=== PATIENT | male | born 1940 | race Two or more races ===

== ENCOUNTER 2023-01-28 08:25 | Emergency (ER) | payer MEDICARE, SELFPAY ==
[2023-01-28 08:32] VITALS: BP 156/86; PULSE 90; RESP 20; TEMP 36.8; O2SAT 98; BMI 28.9
--- NOTE | 2023-01-28 08:39 | ED_ITS ---
HPI - Extremity Problem General Chief complaint: Extremity Problem, Nontraumatic Stated complaint: LOWER EXTREMITY PAIN Time Seen by Provider: 01/28/23 08:29 Source: patient Mode of arrival: Wheelchair History of Present Illness HPI Narrative: 82-year-old male presents for pain to the plantar aspect of each foot. He's had it for the last day and there is no unusual activity or injury or new shoes. It's a burning sensation and it's mostly distal and lateral. No discomfort on the dorsum of his feet. He is on a medication for neuropathy but he doesn't name of it. No fever or cough or leg swelling. The pain is moderate and continuous. Related Data Home Medications Medication Instructions Recorded Confirmed amitriptyline 25 mg tablet 25 mg PO DAILY 01/28/23 01/28/23 atorvastatin 20 mg tablet 20 mg PO DAILY 01/28/23 01/28/23 bumetanide 2 mg tablet 2 mg PO Q12H 01/28/23 01/28/23 carvedilol 25 mg tablet 25 mg PO Q12H 01/28/23 01/28/23 ferrous sulfate 325 mg (65 mg 325 mg PO DAILY 01/28/23 01/28/23 iron) tablet (FeroSul) hydralazine 50 mg tablet 50 mg PO Q12H 01/28/23 01/28/23 insulin glargine 100 unit/mL (3 unit subcut 01/28/23 mL) subcutaneous pen (Lantus Solostar U-100 Insulin) irbesartan 150 mg tablet mg 01/28/23 isosorbide mononitrate 60 mg 30 mg PO DAILY 01/28/23 01/28/23 tablet,extended release 24 hr levothyroxine 50 mcg tablet 50 mcg PO DAILY 01/28/23 01/28/23 Previous Rx's Medication Instructions Recorded hydrocodone 5 mg-acetaminophen 325 1 tab PO Q8H PRN pain #20 tabs 01/28/23 mg tablet Allergies Allergy/AdvReac Type Severity Reaction Status Date / Time No Known Drug Allergies Allergy Verified 01/28/23 08:40 Review of Systems ROS Narrative A ten point review of systems is negative except as noted above. Exam Narrative Exam Narrative: Nurses note and vital signs reviewed and patient is not hypoxic. General: The patient appears well and in no apparent distress. Patient is resting comfortably on cart. Skin: Warm, dry, no pallor noted. There is no rash noted. Head: Normocephalic, atraumatic Eye: Normal conjunctiva, no drainage Ears, Nose, Mouth, and Throat: oral mucosa is moist. Nares patent. Cardiovascular: not tachycardic Respiratory: Patient is in no distress, no accessory muscle use, lungs are clear to auscultation, no wheezing, rales or rhonchi Back: non-tender GI: nontender Musculoskeletal: no swelling in his calves or ankles or feet. There is no bruising or rash. No swelling to the soles of his feet. There is no erythema bruise or rash. Neurological: A&O, normal speech Psychiatric: Cooperative Constitutional Vital Signs - 24 hr 01/28/23 08:32 Temperature 98.3 F Pulse Rate [Monitor] 90 Respiratory Rate 20 Blood Pressure [Right Arm] 156/86 H Pulse Oximetry 98 Oxygen Delivery Method Room Air Course Vital Signs Vital signs: Vital Signs Temperature 98.3 F 01/28/23 08:32 Pulse Rate 90 01/28/23 08:32 Respiratory Rate 20 01/28/23 08:32 Blood Pressure 156/86 H 01/28/23 08:32 Pulse Oximetry 98 01/28/23 08:32 Oxygen Delivery Method Room Air 01/28/23 08:32 Temperature 98.3 F 01/28/23 08:32 Pulse Rate 90 01/28/23 08:32 Respiratory Rate 20 01/28/23 08:32 Blood Pressure 156/86 H 01/28/23 08:32 Pulse Oximetry 98 01/28/23 08:32 Oxygen Delivery Method Room Air 01/28/23 08:32 MDM - Extremity (Nontraumatic) MDM Narrative Medical decision making narrative: creatinine is somewhat increased from the most recent result that I have available to me which is from two years ago. This was discussed with the patient and his son and he'll follow-up with his PCP in that regard. My clinical impression is that he has peripheral neuropathy and was prescribed [place]. Treatment diagnosis and follow-up were discussed with the patient and his son. Differential Diagnosis Differential diagnosis: Likely gout, cellulitis and lower extremity edema Lab Data Attestation: I reviewed the patient's lab results. Labs: Lab Results 01/28/23 Range/Units 08:50 WBC 10.7 (4.0-11.0) 10^3/uL RBC 4.31 L (4.70-6.10) 10^6/uL Hgb 12.9 L (14.0-18.0) g/dL Hct 41.0 L (42.0-54.0) % MCV 95.1 H (80.0-94.0) fL MCH 29.9 (25.9-34.0) pg MCHC 31.5 (29.9-35.2) g/dL RDW 15.0 (11.0-15.0) % Plt Count 238 (150-450) 10^3/uL MPV 10.0 (9.5-13.5) fL Neut % (Auto) 72.9 (43.0-75.0) % Lymph % (Auto) 13.8 L (20.5-60.0) % [place] % (Auto) 10.1 (1.7-12.0) % Eos % (Auto) 2.5 (0.9-7.0) % Baso % (Auto) 0.4 (0.2-2.0) % Neut # (Auto) 7.8 H (1.4-6.5) 10^3/uL Lymph # (Auto) 1.5 (1.2-3.8) 10^3/uL [place] # (Auto) 1.1 H (0.3-0.8) 10^3/uL Eos # (Auto) 0.3 (0.0-0.7) 10^3/uL Baso # (Auto) 0.0 (0.0-0.1) 10^3/uL Abs Immat Gran (auto) 0.03 (0.00-0.03) 10^3/uL Imm/Tot Granulo (auto) 0.3 (0.0-0.5) % Sodium 141 (136-145) mmol/L Potassium 4.9 (3.5-5.1) mmol/L Chloride 102 (98-107) mmol/L Carbon Dioxide 30.8 (21.0-32.0) mmol/L Anion Gap 13.1 BUN 41.0 H (7.0-18.0) mg/dL Creatinine 2.85 H (0.70-1.30) mg/dL Est GFR ( Amer) 26 L (>=60) Est GFR (Non-Af Amer) 21 L (>=60) BUN/Creatinine Ratio 14.4 Glucose 141 H (74-106) mg/dL Calcium 9.4 (8.5-10.1) mg/dL Discharge Plan Discharge Chief Complaint: Extremity Problem, Nontraumatic Clinical Impression: Peripheral neuropathy Patient Disposition: Home, Self-Care Time of Disposition Decision: 10:17 Condition: Good Mode of Transportation: Private Vehicle Prescriptions / Home Meds: New hydrocodone-acetaminophen 5-325 mg tablet 1 tab PO Q8H PRN (Reason: pain) Qty: 20 0RF No Action amitriptyline 25 mg tablet 25 mg PO DAILY atorvastatin 20 mg tablet 20 mg PO DAILY bumetanide 2 mg tablet 2 mg PO Q12H carvedilol 25 mg tablet 25 mg PO Q12H ferrous sulfate [FeroSul] 325 mg (65 mg iron) tablet 325 mg PO DAILY hydralazine 50 mg tablet 50 mg PO Q12H insulin glargine [Lantus Solostar U-100 Insulin] 100 unit/mL (3 mL) insulin pen SUBCUT isosorbide mononitrate 60 mg tablet extended release 24 hr 30 mg PO DAILY irbesartan 150 mg tablet levothyroxine 50 mcg tablet 50 mcg PO DAILY Instructions: Peripheral Neuropathy (ED) Stand Alone Forms: Portal Instructions Referrals: Yao Lopez MD [Primary Care Provider] - 1 week
[2023-01-28] MEDS: HYDROCODONE/ACETAMINOPHEN 5-325 MG TABLET 1 TAB PO (08:54)
[2023-01-28 08:59] LABS: Basophils Percent Auto 0.4 % (0.2-2.0); Eosinophils Absolute Auto 0.3 10^3/uL (0.0-0.7); Eosinophils Percent Auto 2.5 % (0.9-7.0); Hemoglobin 12.9 g/dL (14.0-18.0); Immature Granulocytes Abs Auto 0.03 10^3/uL (0.00-0.03); Immature Granulocytes Pct Auto 0.3 % (0.0-0.5); Lymphocytes Absolute Auto 1.5 10^3/uL (1.2-3.8); Lymphocytes Percent Auto 13.8 % (20.5-60.0); Mean Corpuscular HGB Conc 31.5 g/dL (29.9-35.2); Mean Corpuscular Hemoglobin 29.9 pg (25.9-34.0); Mean Corpuscular Volume 95.1 fL (80.0-94.0); Monocytes Absolute Auto 1.1 10^3/uL (0.3-0.8); Monocytes Percent Auto 10.1 % (1.7-12.0); Neutrophils Absolute Auto 7.8 10^3/uL (1.4-6.5); Neutrophils Percent Auto 72.9 % (43.0-75.0); Platelet Count 238 10^3/uL (150-450); Red Blood Count 4.31 10^6/uL (4.70-6.10); White Blood Count 10.7 10^3/uL (4.0-11.0)
[2023-01-28 09:53] LABS: Anion Gap 13.1; BUN Creatinine Ratio 14.4; Calcium 9.4 mg/dL (8.5-10.1); Carbon Dioxide 30.8 mmol/L (21.0-32.0); Chloride 102 mmol/L (98-107); Estimated GFR (African America 26 (>=60); Estimated GFR (Non-African Ame 21 (>=60); Glucose 141 mg/dL (74-106); Potassium 4.9 mmol/L (3.5-5.1); Sodium 141 mmol/L (136-145)
== END 2023-01-28 10:39 | disposition home or self-care (01) ==
PROVIDERS: Emergency Provider Emergency Medicine; PCP Family Medicine
DX: G62.9 Polyneuropathy, unspecified (principal); Z79.4 Long term (current) use of insulin; Z79.899 Other long term (current) drug therapy; Z79.890 Hormone replacement therapy
CPT/HCPCS: 36415; 80048; 85025; 99283

== ENCOUNTER 2023-01-30 15:30 | Inpatient (IN) | payer MEDICARE, SELFPAY ==
[2023-01-30] VITALS (23 sets, daily range): BP systolic 104–153; BP diastolic 56–101; PULSE 74–111; RESP 13–31; TEMP 36.6–39.3; O2SAT 89–97; BMI 26.5; BMI 30.4
--- NOTE | 2023-01-30 15:46 | XR_ITS ---
The [address] [address] Patient Name: JAJA FRANKLIN MRN: [id number] date: 1940 Sex: M Assigned Patient Location: ER Current Patient Location: ER Accession/Order Number: [id number] Exam Date: 01/30/2023 16:28 Report Date: 01/30/2023 16:47 At the request of: BOBBI LEBLANC Procedure: XR chest 1V EXAM: XR chest 1V at 1624 hours HISTORY: fatigue COMPARISON: 10/25/2022 TECHNIQUE: AP upright portable chest x-ray FINDINGS: The heart is not grossly enlarged. A small amount of atelectasis is seen at the lung bases. No acute infiltrate, effusion or pneumothorax is clearly identified. The patient is rotated to the right. Multiple sternal wire sutures are present. IMPRESSION: No apparent acute infiltrate or evidence of overt cardiac decompensation. A small amount of atelectasis or scarring is seen at the lung bases. Electronically authenticated by: TAVO SMITH Date: 01/30/2023 16:47
--- NOTE | 2023-01-30 15:46 | ECG_ITS ---
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
--- NOTE | 2023-01-30 16:11 | ED_ITS ---
HPI - Weakness General Chief complaint: Weakness Stated complaint: Weakness Time Seen by Provider: 01/30/23 15:45 Source: patient and family Mode of arrival: Wheelchair Limitations: no limitations History of Present Illness HPI Narrative: this patient's here with his son after being evaluated his primary care doctor's office. He is essentially unable to get up and walk. Normally he lives independently. However previously, he underwent a similar situation and was put in a rehab facility for a couple weeks before he went back home. He does live independently and he lost his six months ago. He was here over the weekend for similar complaints and just has not gotten better. He has number of comorbidities and is on a number of medications as noted in the nursing record. To his knowledge he is not running a fever at home. He's not had any chest pain or shortness of breath. Denies vomiting or diarrhea. He has no urinary symptoms but he does have a history of prostate problems. He said the primary problem today is weakness in his feet he says he just can't stand up and walk. Normally he would use a walker. It's been suggested that he might have diabetic neuropathy but he is not sure about that. There also was some concern that he might have some gout. Related Data Home Medications Medication Instructions Recorded Confirmed amitriptyline 25 mg tablet 25 mg PO .QHS 01/28/23 01/30/23 atorvastatin 20 mg tablet 20 mg PO DAILY 01/28/23 01/30/23 bumetanide 2 mg tablet 2 mg PO DAILY 01/28/23 01/30/23 carvedilol 25 mg tablet 25 mg PO Q12H 01/28/23 01/30/23 ferrous sulfate 325 mg (65 mg 325 mg PO DAILY 01/28/23 01/30/23 iron) tablet (FeroSul) hydralazine 50 mg tablet 50 mg PO Q12H 01/28/23 01/30/23 insulin glargine 100 unit/mL (3 50 unit subcut QA 01/28/23 01/30/23 mL) subcutaneous pen (Lantus Solostar U-100 Insulin) isosorbide mononitrate 60 mg 30 mg PO BID 01/28/23 01/30/23 tablet,extended release 24 hr levothyroxine 50 mcg tablet 50 mcg PO DAILY 01/28/23 01/30/23 apixaban 5 mg tablet (Eliquis) 5 mg PO BID 01/30/23 01/30/23 aspirin 81 mg tablet,delayed 81 mg PO DAILY 01/30/23 01/30/23 release (Adult Aspirin Regimen) sacubitril 49 mg-valsartan 51 mg 1 tab PO BID 01/30/23 01/30/23 tablet (Entresto) spironolactone 25 mg tablet 12.5 mg PO DAILY 01/30/23 01/30/23 Previous Rx's Medication Instructions Recorded hydrocodone 5 mg-acetaminophen 325 1 tab PO Q8H PRN pain #20 tabs 01/28/23 mg tablet Allergies Allergy/AdvReac Type Severity Reaction Status Date / Time No Known Drug Allergies Allergy Verified 01/28/23 08:40 PFSH PFSH Social History Smoking status: Never smoker Exam Narrative Exam Narrative: awake alert both his son and he provided history. There is no communication problems. He says the main reason he is here is he just can't get out of bed and walk. Normally he would use a walker but he says his feet are painful and weak and he just can't manage status home by himself. As noted in his vital signs he did spike a fever while here. We had ordered lactate levels and blood cultures prior to that time. Constitutional awake alert oriented ?3 no confusion or altered mental status follows all commands. GCS is fifteen. ENT shows no evidence of oral infection dental infection facial swelling or conjunctivitis. I examination shows eyes x-ray muscles be normal conjunctivitis Next is soft and supple no meningeal irritation. Respiratory he has no cough congestion or labored respiratory effort. Cardio shows no clicks rubs or murmurs. Abdomen is obese but there doesn't appear to be a peritoneal findings rebound or rigidity just uncomfort. Neuro he is able to raise both legs off the bed but has some weakness but he says that's due to pain. His foot dorsiflexors are strong and equal bilaterally. He has slight warmth over the left ankle mortise but absolutely no discomfort with manipulation of the ankle or great toe joint on either side, no indication of acute gout. Extremities otherwise did not show any pitting edema phlebitis or soft tissue skin infections. Constitutional Vital Signs - 24 hr 01/30/23 15:36 01/30/23 16:20 01/30/23 16:06 Temperature 100.4 F H 102.1 F H Pulse Rate 99 H Pulse Rate [Monitor] 106 H 95 H Respiratory Rate 18 17 23 Blood Pressure Blood Pressure [Left Arm] 140/78 H Pulse Oximetry 95 97 Oxygen Delivery Method Room Air Room Air 01/30/23 16:10 01/30/23 16:20 01/30/23 16:29 Temperature Pulse Rate 99 H 95 H 99 H Pulse Rate [Monitor] Respiratory Rate 24 21 22 Blood Pressure Blood Pressure [Left Arm] Pulse Oximetry 92 L 93 L Oxygen Delivery Method 01/30/23 16:30 01/30/23 16:30 01/30/23 17:41 Temperature 102.7 F H Pulse Rate 97 H Pulse Rate [Monitor] Respiratory Rate 21 Blood Pressure 145/82 H 145/82 H Blood Pressure [Left Arm] Pulse Oximetry 94 L Oxygen Delivery Method 01/30/23 16:30 01/30/23 17:33 Temperature Pulse Rate 106 H Pulse Rate [Monitor] Respiratory Rate 14 Blood Pressure 145/82 H 149/83 H Blood Pressure [Left Arm] Pulse Oximetry 96 Oxygen Delivery Method Course Vital Signs Vital signs: Vital Signs Temperature 100.4 F H 01/30/23 15:36 Pulse Rate 106 H 01/30/23 15:36 Respiratory Rate 18 01/30/23 15:36 Blood Pressure 140/78 H 01/30/23 15:36 Pulse Oximetry 95 01/30/23 15:36 Oxygen Delivery Method Room Air 01/30/23 15:36 Temperature 102.7 F H 01/30/23 17:41 Pulse Rate 106 H 01/30/23 17:33 Respiratory Rate 14 01/30/23 17:33 Blood Pressure 149/83 H 01/30/23 17:33 Pulse Oximetry 96 01/30/23 17:33 Oxygen Delivery Method Room Air 01/30/23 16:20 MDM - Weakness MDM Narrative Medical decision making narrative: this patient's urinalysis and chest x-ray does not show focus of infection however is clinical course suggest an infectious process with his fever elevation. Blood cultures have been done. Lactates are normal. He was given some IV fluids because of deterioration of his kidney function tests from his last visit here in the Emergency Room. I will glue go ahead and do another CT scan achy sure there is no intra-abdominal source. We cannot use contrast since his creatinine clearance is decreased. I'm awaiting that CT report at the time this dictation. He was empirically given Rocephin pending further evaluation of his CT of the abdomen. Does not have a [place] catheter at this time. I will discuss this with his primary care physician he will need to be admitted as a thumbnail take care of himself and may have early sepsis.his thyroid-stimulating hormone is substantially elevated but I don't believe is accounting for any infectious process. Lab Data Labs: Lab Results 01/30/23 01/30/23 01/30/23 Range/Units 15:50 16:20 16:26 WBC 11.4 H (4.0-11.0) 10^3/uL RBC 4.08 L (4.70-6.10) 10^6/uL Hgb 12.3 L (14.0-18.0) g/dL Hct 39.0 L (42.0-54.0) % MCV 95.6 H (80.0-94.0) fL MCH 30.1 (25.9-34.0) pg MCHC 31.5 (29.9-35.2) g/dL RDW 15.4 H (11.0-15.0) % Plt Count 244 (150-450) 10^3/uL MPV 10.2 (9.5-13.5) fL Seg Neuts % (Manual) 72.0 Lymphocytes % (Manual) 12.0 L (20.5-60.0) % Monocytes % (Manual) 15.0 H (1.7-12.0) % Eosinophils % (Manual) 2.0 (0.9-7.0) % Basophils % (Manual) 0.0 L (0.2-2.0) % Neutrophils # (Manual) 8.20 H (1.4-6.5) 10^3/uL Lymphocytes # (Manual) 1.36 (1.20-3.80) 10^3/uL Monocytes # (Manual) 1.71 H (0.30-0.80) 10^3/uL Eosinophils # (Manual) 0.22 (0.00-0.70) 10^3/uL Basophils # (Manual) 0.00 (0.00-0.10) 10^3/uL Anisocytosis 1+ Sodium 138 (136-145) mmol/L Potassium 5.3 H (3.5-5.1) mmol/L Chloride 101 (98-107) mmol/L Carbon Dioxide 29.3 (21.0-32.0) mmol/L Anion Gap 13.0 BUN 60.0 H (7.0-18.0) mg/dL Creatinine 3.02 H (0.70-1.30) mg/dL Est GFR ( Amer) 24 L (>=60) Est GFR (Non-Af Amer) 20 L (>=60) BUN/Creatinine Ratio 19.9 Glucose 117 H (74-106) mg/dL Lactate 1.9 (0.4-2.0) mmol/L Calcium 9.4 (8.5-10.1) mg/dL Magnesium 1.9 (1.8-2.4) mg/dL Total Bilirubin 0.7 (0.2-1.0) mg/dL AST 7 L (15-37) U/L ALT 12 L (16-63) U/L Alkaline Phosphatase 101 (46-116) U/L Troponin I High Sens 7.5 (4.0-76.1) pg/mL C-Reactive Protein 19.8 H (<=1.0) mg/dL Total Protein 8.2 (6.4-8.2) g/dL Albumin 3.0 L (3.4-5.0) g/dL Globulin 5.2 g/dL Albumin/Globulin Ratio 0.6 TSH 3.629 (0.358-3.740) uIU/mL Urine Color Yellow (YELLOW) Urine Clarity Clear (CLEAR) Urine pH 5.5 (5.0-9.0) Ur Specific [place] 1.020 (1.005-1.025) Urine Protein 30 A (NEG/TRACE) mg/dL Urine Glucose (UA) Negative (NEGATIVE) mg/dL Urine Ketones Negative (NEGATIVE) mg/dL Urine Occult Blood Negative (NEGATIVE) Urine Nitrite Negative (NEGATIVE) Urine Bilirubin Negative (NEGATIVE) Urine Urobilinogen 0.2 (0.2-1.0) EU/dL Ur Leukocyte Esterase Negative (NEGATIVE) Urine RBC None seen (0-2) #/HPF Urine WBC None seen (NONE SEEN) #/HPF Ur Squamous Epith Cells Rare (NONE/RARE) #/LPF Urine Crystals None seen (None Seen) #/HPF Urine Bacteria None seen (NONE SEEN) #/HPF Urine Casts Seen A (NONE SEEN) #/LPF Hyaline Casts Rare Urine Mucus None seen (NONE SEEN) Ur Culture Indicated? No Discharge Plan Discharge Chief Complaint: Weakness Clinical Impression: Fever, Acute renal failure Patient Disposition: Admitted As Inpatient Time of Disposition Decision: 18:34 Prescriptions / Home Meds: No Action amitriptyline 25 mg tablet 25 mg PO .QHS atorvastatin 20 mg tablet 20 mg PO DAILY bumetanide 2 mg tablet 2 mg PO DAILY carvedilol 25 mg tablet 25 mg PO Q12H ferrous sulfate [FeroSul] 325 mg (65 mg iron) tablet 325 mg PO DAILY hydralazine 50 mg tablet 50 mg PO Q12H Hold Instructions: Order Change insulin glargine [Lantus Solostar U-100 Insulin] 100 unit/mL (3 mL) insulin pen 50 unit SUBCUT QAM isosorbide mononitrate 60 mg tablet extended release 24 hr 30 mg PO BID levothyroxine 50 mcg tablet 50 mcg PO DAILY hydrocodone-acetaminophen 5-325 mg tablet 1 tab PO Q8H PRN (Reason: pain) Qty: 20 0RF Entresto 49-51 mg tablet 1 tab PO BID Eliquis 5 mg tablet 5 mg PO BID spironolactone 25 mg tablet 12.5 mg PO DAILY aspirin [Adult Aspirin Regimen] 81 mg tablet,delayed release (DR/EC) 81 mg PO DAILY Referrals: Yao Lopez MD [Primary Care Provider] - 1 week
[2023-01-30 16:26] LABS: Bilirubin Urine NEGATIVE (NEGATIVE); Blood Urine NEGATIVE (NEGATIVE); Clarity Urine CLEAR (CLEAR); Color Urine YELLOW (YELLOW); Glucose Urine UA NEGATIVE (NEGATIVE); Ketones Urine NEGATIVE (NEGATIVE); Leukocyte Esterase Urine NEGATIVE (NEGATIVE); Nitrite Urine NEGATIVE (NEGATIVE); Protein Urine 30 mg/dL (NEG/TRACE); Urine Microscopic Indicated YES; Urobilinogen Urine 0.2 EU/dL (0.2-1.0); pH Urine 5.5 (5.0-9.0)
[2023-01-30] MEDS: 0.9 % SODIUM CHLORIDE 1,000 ML 100 ML IV (16:29)
[2023-01-30 16:31] LABS: Hemoglobin 12.3 g/dL (14.0-18.0); Mean Corpuscular HGB Conc 31.5 g/dL (29.9-35.2); Mean Corpuscular Hemoglobin 30.1 pg (25.9-34.0); Mean Corpuscular Volume 95.6 fL (80.0-94.0); Mean Platelet Volume 10.2 fL (9.5-13.5); Platelet Count 244 10^3/uL (150-450); Red Blood Count 4.08 10^6/uL (4.70-6.10); Red Cell Distribution Width 15.4 % (11.0-15.0); White Blood Count 11.4 10^3/uL (4.0-11.0)
[2023-01-30 16:34] LABS: Bacteria Urine NONE SEEN #/HPF (NONE SEEN); Mucus Urine NONE SEEN (NONE SEEN); RBC Urine NONE SEEN #/HPF (0-2); WBC Urine NONE SEEN #/HPF (NONE SEEN)
[2023-01-30 16:35] LABS: Cast Seen? SEEN #/LPF (NONE SEEN); Crystals Seen? None Seen #/HPF (None Seen); Hyaline Casts Urine RARE; Squamous Epithelial Cell Urine RARE #/LPF (NONE/RARE); Urine Culture Indicated NO
[2023-01-30 16:42] LABS: Eosinophils Absolute Manual 0.22 10^3/uL (0.00-0.70); Lymphocytes Absolute Manual 1.36 10^3/uL (1.20-3.80); Monocytes Absolute Manual 1.71 10^3/uL (0.30-0.80)
[2023-01-30 16:43] LABS: Anisocytosis 1+
[2023-01-30 16:54] LABS: Alanine Aminotransferase 12 U/L (16-63); Albumin Globulin Ratio 0.6; Alkaline Phosphatase 101 U/L (46-116); Aspartate Amino Transferase 7 U/L (15-37); BUN Creatinine Ratio 19.9; Bilirubin Total 0.7 mg/dL (0.2-1.0); Calcium 9.4 mg/dL (8.5-10.1); Carbon Dioxide 29.3 mmol/L (21.0-32.0); Chloride 101 mmol/L (98-107); Estimated GFR (African America 24 (>=60); Estimated GFR (Non-African Ame 20 (>=60); Globulin 5.2 g/dL; Glucose 117 mg/dL (74-106); Potassium 5.3 mmol/L (3.5-5.1); Sodium 138 mmol/L (136-145); Total Protein 8.2 g/dL (6.4-8.2)
[2023-01-30 16:57] LABS: Lactate/Lactic Acid 1.9 mmol/L (0.4-2.0)
--- NOTE | 2023-01-30 16:59 | CT_ITS ---
The [address] [address] Patient Name: JAJA FRANKLIN MRN: [id number] date: 1940 Sex: M Assigned Patient Location: ED.MAIN Current Patient Location: ED.MAIN Accession/Order Number: [id number] Exam Date: 01/30/2023 17:20 Report Date: 01/30/2023 18:57 At the request of: BOBBI LEBLANC Procedure: CT abdomen pelvis wo con EXAM: CT SCAN OF THE ABDOMEN AND PELVIS WITHOUT IV CONTRAST DATE OF EXAM: 01/30/2023 5:20 PM EDT HISTORY: fever and 82-year-old male COMPARISON: 10/25/2022 CT abdomen pelvis without TECHNIQUE: CT examination of the abdomen and pelvis with sagittal and coronal reformations was performed without intravenous contrast. CT dose lowering techniques were used, to include: automated exposure control, adjustment for patient size, and/or use of iterative reconstruction. CONTRAST: None. Note: The exam is limited because some types of pathology may not be adequately demonstrated due to lack of contrast enhancement. FINDINGS: Oncology Specialist: Unremarkable for acute pathology allowing for limitations of reticle printer technique. Lines and Tubes: None. Lower Chest: Normal Free Air: None. Liver: Normal Gallbladder: Removed Common Bile Duct: Normal Pancreas: Normal Spleen: Normal Adrenal Glands: Normal Kidneys: Right Kidney: Normal. Right Ureter: Portions of the right ureter which are visualized measure within normal. Left Kidney: Normal. Left Ureter: Portions of the left ureter which are visualized measure within normal limits. GI Tract: Stomach: Normal Small Bowel: Normal Appendix: Normal Large Bowel: There is moderate retention of stool. Mesentery/Peritoneum: Normal Vasculature: Vascular calcifications are present. Lymph Nodes: Normal Abdominal Wall: Bilateral fat filled inguinal hernias Bladder: Normal Reproductive: Prostate is enlarged Musculoskeletal: Osseous structures demonstrate degenerative change with flowing syndesmophytes. Vacuum disc phenomenon is demonstrated. Sclerosis is seen in the right acetabulum. Free Fluid: None. IMPRESSION: 1. Enlarged prostate. Please correlate with patient's PSA. Prostate causes effacement onto the bladder. Please correlate clinically for bladder outlet syndrome. 2. Sclerosis demonstrated in the right acetabulum stable compared to most recent exam. Please correlate with patient's medical history. Given patient's large prostate, If clinically indicated bone scan may help better delineate. 3. Cholecystectomy. 4. Incompletely imaged interstitial opacities in the left lingula and right middle lobe. There is any clinical concern for pneumonia, CT chest would help better delineate. 5. Scattered diverticulosis with moderate retention of stool Electronically authenticated by: JESSE BURKETT Date: 01/30/2023 18:57
[2023-01-30 17:01] LABS: C Reactive Protein 19.8 mg/dL (<=1.0); Magnesium 1.9 mg/dL (1.8-2.4); Thyroid Stimulating Hormone 3.629 uIU/mL (0.358-3.740); Troponin I High Sensitivity 7.5 pg/mL (4.0-76.1)
[2023-01-30] MEDS: ACETAMINOPHEN 325 MG TABLET 650 MG PO (17:41)
[2023-01-30] MEDS: CEFTRIAXONE 1,000 MG in 0.9 % SODIUM CHLORIDE 50 ML 100 MG IV (18:06)
[2023-01-30] MEDS: 0.9 % SODIUM CHLORIDE 1,000 ML 999 ML IV (19:11)
--- NOTE | 2023-01-30 20:19 | P.PN_ITS ---
Progress Note: Subjective Subjective Interval history: weakness, fever HPI: this is a 82 WM admited from SNF with above complaints. Patient this patient's here with his son after being evaluated his primary care doctor's office for significant functional decline - he usually lives independently, but now unable to get up and walk. His passed recently and he had similar functional decline and was put in a rehab facility for a couple weeks before he went back home. He has number of comorbidities and is on a number of medications as noted in the nursing record. He denies chest pain or shortness of breath, vomiting or diarrhea, urinary symptoms. Evaluation in ED was significant for fever, leucocytosis with mild Lt. shift and elevated CRP. No localization of infection. Exam Narrative Exam Narrative: NAD, PERRL, EOMI Neck - supple - thyroid not enlarged, LNs not palpated Lungs - CTA B/L S1, S2 no M or G, RRR ABd - S/NT/ND/+BSs Ext - trace B/L pitting edema Lt>Rt SKin - Lt chapman warm to touch Neuro - CN II-XII grossly intact, no focal deficites Psych- normal affect Constitutional Vital Signs - 24 hr 01/30/23 15:36 01/30/23 16:20 01/30/23 16:06 Temperature 100.4 F H 102.1 F H Pulse Rate 99 H Pulse Rate [Monitor] 106 H 95 H Respiratory Rate 18 17 23 Blood Pressure Blood Pressure [Left Arm] 140/78 H Pulse Oximetry 95 97 Oxygen Delivery Method Room Air Room Air 01/30/23 16:10 01/30/23 16:20 01/30/23 16:29 Temperature Pulse Rate 99 H 95 H 99 H Pulse Rate [Monitor] Respiratory Rate 24 21 22 Blood Pressure Blood Pressure [Left Arm] Pulse Oximetry 92 L 93 L Oxygen Delivery Method 01/30/23 16:30 01/30/23 16:30 01/30/23 17:41 Temperature 102.7 F H Pulse Rate 97 H Pulse Rate [Monitor] Respiratory Rate 21 Blood Pressure 145/82 H 145/82 H Blood Pressure [Left Arm] Pulse Oximetry 94 L Oxygen Delivery Method 01/30/23 16:30 01/30/23 17:33 01/30/23 17:33 Temperature Pulse Rate 106 H 101 H Pulse Rate [Monitor] Respiratory Rate 14 19 Blood Pressure 145/82 H 149/83 H 149/83 H Blood Pressure [Left Arm] Pulse Oximetry 96 Oxygen Delivery Method 01/30/23 17:45 01/30/23 18:01 01/30/23 18:15 Temperature Pulse Rate 98 H 100 H 94 H Pulse Rate [Monitor] Respiratory Rate 25 H 18 21 Blood Pressure 153/101 H 108/67 126/74 H Blood Pressure [Left Arm] Pulse Oximetry 94 L 92 L 91 L Oxygen Delivery Method 01/30/23 18:30 01/30/23 18:45 01/30/23 19:25 Temperature 99.7 F H Pulse Rate 93 H 109 H Pulse Rate [Monitor] 98 H Respiratory Rate 17 19 19 Blood Pressure 124/97 H 111/63 Blood Pressure [Left Arm] 117/65 Pulse Oximetry 90 L 89 L 97 Oxygen Delivery Method Room Air Progress Note: Objective Labs Labs: Short CBC 01/30/23 Range/Units 16:20 WBC 11.4 H (4.0-11.0) 10^3/uL Hgb 12.3 L (14.0-18.0) g/dL Hct 39.0 L (42.0-54.0) % Plt Count 244 (150-450) 10^3/uL BMP 01/30/23 16:20 Sodium 138 Potassium 5.3 H Chloride 101 Carbon Dioxide 29.3 BUN 60.0 H Creatinine 3.02 H Glucose 117 H Calcium 9.4 Liver Function 01/30/23 Range/Units 16:20 Total Bilirubin 0.7 (0.2-1.0) mg/dL AST 7 L (15-37) U/L ALT 12 L (16-63) U/L Alkaline Phosphatase 101 (46-116) U/L Albumin 3.0 L (3.4-5.0) g/dL Urine 01/30/23 Range/Units 15:50 Urine Color Yellow (YELLOW) Urine Clarity Clear (CLEAR) Urine pH 5.5 (5.0-9.0) Ur Specific [place] 1.020 (1.005-1.025) Urine Protein 30 A (NEG/TRACE) mg/dL Urine Glucose (UA) Negative (NEGATIVE) mg/dL Progress Note: A&P Assessment and Plan (1) Fever: Assessment and Plan: reason unclear - LLE cellulitis? IE? other? F/U Cxs Started on empiric broad spectrum ABxs (2) Acute renal failure: Assessment and Plan: M/P related to above avoid use of nephrotoxic medications on diuretics for CHF (3) Peripheral neuropathy: Assessment and Plan: differ for OP management (4) HTN (hypertension): Assessment and Plan: BP well controlled with Coreg, diuretics (5) Hypothyroidism: Assessment and Plan: continue home dose of supplemental levothyroxin (6) CHF (congestive heart failure): Assessment and Plan: appears euvolemic. On Coreg, ASA, (7) Afib: Assessment and Plan: rate controlled with Coreg, on DOAC Telemedicine Attestation Telemedicine Attestation I conducted this encounter from [[place]] via secure live, [id number] video conference with the patient, located at [facility] with [fever]. Prior to the interview, the risks and benefits of telemedicine were discussed with the patient and verbal consent was obtained.
[2023-01-30] MEDS: AMITRIPTYLINE HCL 25 MG TABLET PO (21:05)
[2023-01-30] MEDS: CARVEDILOL 25 MG TABLET PO (21:05)
[2023-01-30] MEDS: ISOSORBIDE MONONITRATE 60 MG TAB.ER.24H 30 MG PO (21:05)
[2023-01-30] MEDS: APIXABAN 5 MG TABLET PO (21:06)
[2023-01-30] MEDS: Sacubitril-Valsartan [Entresto] 49-51 mg tablet 1 EACH PO (21:06)
[2023-01-30] MEDS: VANCOMYCIN HCL 2,000 MG in 0.9 % SODIUM CHLORIDE 500 ML 250 MG IV (21:25)
[2023-01-30] MEDS: 0.9 % SODIUM CHLORIDE 500 ML 250 ML IV (21:35)
[2023-01-31] VITALS (21 sets, daily range): BP systolic 93–137; BP diastolic 59–79; PULSE 71–95; RESP 12–22; TEMP 36.8–38.1; O2SAT 91–97; BMI 30.4
[2023-01-31 05:05] LABS: Cholesterol 81 mg/dL (<=200); HDL Cholesterol 41 mg/dL (40-60); Magnesium 1.7 mg/dL (1.8-2.4); Prealbumin 14.8 mg/dL (20.9-45.5); Triglycerides 60 mg/dL (<=150)
[2023-01-31] MEDS: HYDROCODONE/ACETAMINOPHEN 5-325 MG TABLET 1 TAB PO (05:43)
[2023-01-31 05:53] LABS: Partial Thromboplastin Time 44.2 sec (22.3-36.2)
--- NOTE | 2023-01-31 07:17 | US_ITS ---
[address] [address] Patient Name: JAJA FRANKLIN MRN: [id number] date: 1940 Sex: M Assigned Patient Location: ICU Current Patient Location: ICU Accession/Order Number: [id number] Exam Date: 01/31/2023 08:00 Report Date: 01/31/2023 08:36 At the request of: DERRICK AYALA Procedure: US venous doppler LE LT EXAM: US venous doppler LE LT HISTORY: Leg Pain left lower extremity swelling COMPARISON: None. TECHNIQUE: Doppler color flow as well as spectral analysis were performed of the left lower extremity. FINDINGS: There is adequate flow, compressibility, or augmentation within the visualized deep venous structures of the left lower extremity. No evidence of deep venous thrombus. IMPRESSION: 1. No deep venous thrombus. Electronically authenticated by: MILVIA FREEMAN Date: 01/31/2023 08:36
--- NOTE | 2023-01-31 07:18 | XR_ITS ---
[address] [address] Patient Name: JAJA FRANKLIN MRN: [id number] date: 1940 Sex: M Assigned Patient Location: ICU Current Patient Location: ICU Accession/Order Number: [id number] Exam Date: 01/31/2023 07:53 Report Date: 01/31/2023 08:08 At the request of: DERRICK AYALA Procedure: XR tibia fibula LT 2V PROCEDURE: XR tibia fibula LT 2V COMPARISON: None. HISTORY: leg pain FINDINGS: BONES:No acute fracture or dislocation. Moderate diffuse degenerative changes with joint space narrowing and marginal osteophyte formation. Moderate narrowing of the medial ankle joint space. Moderate enthesopathic spurring of the calcaneus SOFT TISSUES:Negative. No visible soft tissue swelling. EFFUSION:None visible. OTHER: Extensive atherosclerosis IMPRESSION: Moderate degenerative changes with no acute fracture Electronically authenticated by: MONY AGUILAR Date: 01/31/2023 08:08
[2023-01-31 07:20] LABS: Glucometer 111 mg/dL (74-106)
[2023-01-31] MEDS: LACTATED RINGER'S SOLUTION 1,000 ML 50 ML IV (07:54)
[2023-01-31 08:00] LABS: Basophils Percent Auto 0.2 % (0.2-2.0); Eosinophils Absolute Auto 0.2 10^3/uL (0.0-0.7); Eosinophils Percent Auto 1.9 % (0.9-7.0); Hematocrit 33.4 % (42.0-54.0); Hemoglobin 10.7 g/dL (14.0-18.0); Immature Granulocytes Abs Auto 0.04 10^3/uL (0.00-0.03); Immature Granulocytes Pct Auto 0.5 % (0.0-0.5); Lymphocytes Absolute Auto 0.9 10^3/uL (1.2-3.8); Lymphocytes Percent Auto 10.6 % (20.5-60.0); Mean Corpuscular Hemoglobin 30.7 pg (25.9-34.0); Mean Corpuscular Volume 95.7 fL (80.0-94.0); Mean Platelet Volume 9.9 fL (9.5-13.5); Monocytes Absolute Auto 1.1 10^3/uL (0.3-0.8); Monocytes Percent Auto 12.8 % (1.7-12.0); Neutrophils Absolute Auto 6.3 10^3/uL (1.4-6.5); Platelet Count 196 10^3/uL (150-450); Red Blood Count 3.49 10^6/uL (4.70-6.10); Red Cell Distribution Width 15.1 % (11.0-15.0); White Blood Count 8.5 10^3/uL (4.0-11.0)
[2023-01-31] MEDS: OMEPRAZOLE 40 MG CAPSULE.DR PO (08:02)
[2023-01-31] MEDS: ASPIRIN 81 MG TABLET.DR PO (08:03)
[2023-01-31] MEDS: ISOSORBIDE MONONITRATE 60 MG TAB.ER.24H 30 MG PO ×2 (08:03→21:38)
[2023-01-31] MEDS: INSULIN DETEMIR 300 UNIT/3 ML INSULN.PEN 50 UNIT SUBQ (08:03)
[2023-01-31] MEDS: APIXABAN 5 MG TABLET 2.5 MG PO ×2 (08:03→21:38)
[2023-01-31] MEDS: CARVEDILOL 25 MG TABLET PO ×2 (08:03→21:40)
[2023-01-31] MEDS: Sacubitril-Valsartan [Entresto] 49-51 mg tablet 1 EACH PO ×2 (08:04→23:40)
[2023-01-31 08:11] LABS: Adenovirus NOT DETECTED (NOT DETECTE); Bordetella parapertussis NOT DETECTED (NOT DETECTE); Coronavirus 229E NOT DETECTED (NOT DETECTE); Coronavirus HKU1 NOT DETECTED (NOT DETECTE); Coronavirus NL63 NOT DETECTED (NOT DETECTE); Coronavirus OC43 NOT DETECTED (NOT DETECTE); Human Metapneumovirus NOT DETECTED (NOT DETECTE); Human Rhinovirus/Enterovirus NOT DETECTED (NOT DETECTE); Influenza A NOT DETECTED (NOT DETECTE); Influenza B NOT DETECTED (NOT DETECTE); Mycoplasma pneumoniae NOT DETECTED (NOT DETECTE); Parainfluenza Virus 1 NOT DETECTED (NOT DETECTE); Parainfluenza Virus 2 NOT DETECTED (NOT DETECTE); Parainfluenza Virus 3 NOT DETECTED (NOT DETECTE); Parainfluenza Virus 4 NOT DETECTED (NOT DETECTE); Respiratory Syncytial Virus NOT DETECTED (NOT DETECTE); SARS-CoV-2 NOT DETECTED (NOT DETECTE)
[2023-01-31 08:11] LABS: Uric Acid 9.7 mg/dL (3.5-7.2)
[2023-01-31 08:26] LABS: Alanine Aminotransferase 10 U/L (16-63); Albumin Globulin Ratio 0.5; Albumin Level 2.3 g/dL (3.4-5.0); Alkaline Phosphatase 80 U/L (46-116); Anion Gap 11.8; Aspartate Amino Transferase 9 U/L (15-37); BUN Creatinine Ratio 19.4; Bilirubin Total 0.7 mg/dL (0.2-1.0); Calcium 8.5 mg/dL (8.5-10.1); Carbon Dioxide 27.1 mmol/L (21.0-32.0); Chloride 105 mmol/L (98-107); Creatine Kinase 36 U/L (39-308); Creatine Kinase MB 0.78 ng/mL (<=3.60); Estimated GFR (African America 30 (>=60); Estimated GFR (Non-African Ame 25 (>=60); Globulin 4.4 g/dL; Glucose 141 mg/dL (74-106); Myoglobin 120 ng/mL (16-96); Potassium 4.9 mmol/L (3.5-5.1); Sodium 139 mmol/L (136-145); Total Protein 6.7 g/dL (6.4-8.2); Troponin I High Sensitivity 12.1 pg/mL (4.0-76.1)
[2023-01-31 08:27] LABS: Free T3 1.31 pg/mL (2.18-3.98); Thyroid Stimulating Hormone 1.881 uIU/mL (0.358-3.740)
[2023-01-31 08:29] LABS: Erythrocyte Sedimentation Rate 95 mm/hr (<=20)
[2023-01-31 08:35] LABS: Lactate/Lactic Acid 0.8 mmol/L (0.4-2.0)
[2023-01-31 08:44] LABS: Mono Screen NEGATIVE (NEGATIVE)
--- NOTE | 2023-01-31 08:52 | PC.NURSE ---
santiago ordered PRN. not inserted at this time
--- NOTE | 2023-01-31 08:53 | PC.NURSE ---
santiago ordered PRN, not inserted at this time.
--- NOTE | 2023-01-31 08:59 | P.HP_ITS ---
H&P: HPI History of Present Illness Chief complaint: Weakness FEVER ACUTE RENAL FAILURE Narrative: Patient was recommended to go to the emergency room after office visit due to increasing weakness and unable to ambulate secondary to the weakness. He was seen in ER previously for foot pain. That was better with hydrocodone. Blood pressure significantly low in the office oxygen saturation significantly low in the office at 85%. Recommended for ER as opposed to direct admission due to these vital signs. In ER found to have fever with tachycardia and leukocytosis, uncertain source, CT scan reviewed, patient admitted for fever unknown source. Does have some left lower extremity cellulitis as a potential source Review of Systems ROS Constitutional Reports: fever and chills Respiratory Denies: shortness of breath or cough Gastrointestinal Denies: abdominal pain or nausea Genitourinary Denies: painful urination Musculoskeletal Reports: extremity pain Neurological Reports: numbness in extremities; Denies: headache [facility] Medical History (Updated 01/30/23 @ 22:19 by Shabana Bob) Family History (Updated 01/30/23 @ 22:16 by Shabana Bob) Other Family history of diabetes mellitus Social History (Updated 01/30/23 @ 22:18 by Shabana Bob) Non-prescribed substance use: denies use Highest level of school completed/degree received: high school graduate Are you now , , , , never or living with a partner: In a typical week, how many times do you talk on the telephone with family, friends, or neighbors: 3 or more times per week How often do you get together with friends or relatives: twice per week How often do you attend catholic or mormon services: 1-3 times per year Do you belong to any clubs or organizations such as catholic groups unions, fraternal or athletic groups, or school groups: no Total score: 1 Score interpretation: A score of less than or equal to 1 indicates the most socially isolated. Little interest or pleasure in doing things: several days Feeling down, depressed, or hopeless: several days Feel stressed/tense/nervous/anxious/difficulty sleeping: not at all Life stressors: recent of family or friend Do you think of yourself as: straight/heterosexual Gender Identity: male Meds Home Medications and Allergies Home Medications Medication Instructions Recorded Confirmed Type amitriptyline 25 mg tablet 25 mg PO .QHS 01/28/23 01/30/23 History atorvastatin 20 mg tablet 20 mg PO .evening 01/28/23 01/30/23 History bumetanide 2 mg tablet 2 mg PO DAILY 01/28/23 01/30/23 History carvedilol 25 mg tablet 25 mg PO Q12H 01/28/23 01/30/23 History ferrous sulfate 325 mg (65 mg 325 mg PO .evening 01/28/23 01/30/23 History iron) tablet (FeroSul) hydralazine 50 mg tablet 50 mg PO Q12H 01/28/23 01/30/23 History hydrocodone 5 mg-acetaminophen 325 1 tab PO Q8H PRN pain #20 tabs 01/28/23 01/30/23 Rx mg tablet insulin glargine 100 unit/mL (3 50 unit subcut BID 01/28/23 01/31/23 History mL) subcutaneous pen (Lantus Solostar U-100 Insulin) isosorbide mononitrate 60 mg 30 mg PO BID 01/28/23 01/30/23 History tablet,extended release 24 hr levothyroxine 50 mcg tablet 50 mcg PO QAM 01/28/23 01/31/23 History apixaban 5 mg tablet (Eliquis) 5 mg PO BID 01/30/23 01/30/23 History aspirin 81 mg tablet,delayed 81 mg PO DAILY 01/30/23 01/30/23 History release (Adult Aspirin Regimen) sacubitril 49 mg-valsartan 51 mg 1 tab PO BID 01/30/23 01/30/23 History tablet (Entresto) spironolactone 25 mg tablet 12.5 mg PO DAILY 01/30/23 01/30/23 History doxazosin 4 mg tablet 8 mg PO DAILY 01/31/23 01/31/23 History Allergies Allergy/AdvReac Type Severity Reaction Status Date / Time No Known Drug Allergies Allergy Verified 01/28/23 08:40 Exam Constitutional Vital Signs - 24 hr 01/30/23 15:36 01/30/23 16:20 01/30/23 16:06 Temperature 100.4 F H 102.1 F H Pulse Rate 99 H Pulse Rate [Monitor] 106 H 95 H Respiratory Rate 18 17 23 Blood Pressure Blood Pressure [Left Arm] 140/78 H Blood Pressure [Right Arm] Pulse Oximetry 95 97 Oxygen Delivery Method Room Air Room Air 06/26/23 16:10 01/30/23 16:20 01/30/23 16:29 Temperature Pulse Rate 99 H 95 H 99 H Pulse Rate [Monitor] Respiratory Rate 24 21 22 Blood Pressure Blood Pressure [Left Arm] Blood Pressure [Right Arm] Pulse Oximetry 92 L 93 L Oxygen Delivery Method 01/30/23 16:30 01/30/23 16:30 01/30/23 17:41 Temperature 102.7 F H Pulse Rate 97 H Pulse Rate [Monitor] Respiratory Rate 21 Blood Pressure 145/82 H 145/82 H Blood Pressure [Left Arm] Blood Pressure [Right Arm] Pulse Oximetry 94 L Oxygen Delivery Method 01/30/23 16:30 01/30/23 17:33 01/30/23 17:33 Temperature Pulse Rate 106 H 101 H Pulse Rate [Monitor] Respiratory Rate 14 19 Blood Pressure 145/82 H 149/83 H 149/83 H Blood Pressure [Left Arm] Blood Pressure [Right Arm] Pulse Oximetry 96 Oxygen Delivery Method 01/30/23 17:45 01/30/23 18:01 01/30/23 18:15 Temperature Pulse Rate 98 H 100 H 94 H Pulse Rate [Monitor] Respiratory Rate 25 H 18 21 Blood Pressure 153/101 H 108/67 126/74 H Blood Pressure [Left Arm] Blood Pressure [Right Arm] Pulse Oximetry 94 L 92 L 91 L Oxygen Delivery Method 01/30/23 18:30 01/30/23 18:45 01/30/23 19:47 Temperature 97.9 F Pulse Rate 93 H 109 H 95 H Pulse Rate [Monitor] Respiratory Rate 17 19 15 Blood Pressure 124/97 H 111/63 Blood Pressure [Left Arm] Blood Pressure [Right Arm] 124/74 H Pulse Oximetry 90 L 89 L Oxygen Delivery Method Room Air 01/30/23 19:47 01/30/23 20:22 01/30/23 19:25 Temperature 99.7 F H Pulse Rate 92 H Pulse Rate [Monitor] 98 H Respiratory Rate 19 Blood Pressure Blood Pressure [Left Arm] 117/65 Blood Pressure [Right Arm] Pulse Oximetry 97 Oxygen Delivery Method Room Air Room Air 01/30/23 18:45 01/30/23 19:01 01/30/23 19:18 Temperature Pulse Rate 109 H 102 H 111 H Pulse Rate [Monitor] Respiratory Rate 17 18 19 Blood Pressure 111/63 117/65 Blood Pressure [Left Arm] Blood Pressure [Right Arm] Pulse Oximetry 95 Oxygen Delivery Method 01/30/23 19:20 01/30/23 19:30 01/30/23 19:37 Temperature Pulse Rate 111 H 101 H 100 H Pulse Rate [Monitor] Respiratory Rate 20 31 H 17 Blood Pressure Blood Pressure [Left Arm] Blood Pressure [Right Arm] Pulse Oximetry 95 Oxygen Delivery Method 01/30/23 19:38 01/30/23 19:38 01/30/23 23:08 Temperature 97.9 F Pulse Rate 96 H 74 74 Pulse Rate [Monitor] Respiratory Rate 19 24 14 Blood Pressure 124/74 H 124/74 H 104/56 L Blood Pressure [Left Arm] Blood Pressure [Right Arm] Pulse Oximetry 91 L 93 L 93 L Oxygen Delivery Method 01/31/23 00:12 01/31/23 03:10 01/30/23 23:08 Temperature Pulse Rate 75 Pulse Rate [Monitor] 73 73 Respiratory Rate 14 14 13 Blood Pressure 104/56 L Blood Pressure [Left Arm] Blood Pressure [Right Arm] Pulse Oximetry Oxygen Delivery Method 01/31/23 03:12 01/31/23 03:12 01/31/23 04:09 Temperature 98.8 F Pulse Rate 73 80 71 Pulse Rate [Monitor] Respiratory Rate 20 12 Blood Pressure 115/69 115/69 137/70 H Blood Pressure [Left Arm] Blood Pressure [Right Arm] Pulse Oximetry 97 Oxygen Delivery Method 01/31/23 05:50 01/31/23 04:09 01/31/23 07:13 Temperature Pulse Rate 81 88 81 Pulse Rate [Monitor] Respiratory Rate 18 20 Blood Pressure 137/70 H 119/59 L Blood Pressure [Left Arm] Blood Pressure [Right Arm] Pulse Oximetry Oxygen Delivery Method 01/31/23 07:48 01/31/23 07:56 Temperature 98.3 F Pulse Rate 81 Pulse Rate [Monitor] Respiratory Rate Blood Pressure Blood Pressure [Left Arm] Blood Pressure [Right Arm] Pulse Oximetry Oxygen Delivery Method Common normals: no apparent distress (Looks better than yesterday) Exam limitations: no altered mental status HENCO Common normals: normocephalic Chest Common normals: inspection of chest normal Respiratory Common normals: normal respiratory effort and no use of accessory muscles Cardio Rate: tachycardic Rhythm: abnormal rhythm GI Common normals: Normal to inspection, nondistended, normoactive bowel sounds present, soft to palpation and non-tender Extremity Common normals: abnormal to inspection (Left lower extremity with rubor, calor, dolor anterior chapman) Results Labs Labs: Short CBC 01/30/23 01/31/23 Range/Units 16:20 07:48 WBC 11.4 H 8.5 (4.0-11.0) 10^3/uL Hgb 12.3 L 10.7 L (14.0-18.0) g/dL Hct 39.0 L 33.4 L (42.0-54.0) % Plt Count 244 196 (150-450) 10^3/uL BMP 01/30/23 01/31/23 16:20 07:48 Sodium 138 139 Potassium 5.3 H 4.9 Chloride 101 105 Carbon Dioxide 29.3 27.1 BUN 60.0 H 49.0 H Creatinine 3.02 H 2.52 H Glucose 117 H 141 H Calcium 9.4 8.5 Cardiac Enzymes 01/31/23 Range/Units 07:48 Total Creatine Kinase 36 L (39-308) U/L CK-MB (CK-2) 0.78 (<=3.60) ng/mL Liver Function 01/30/23 01/31/23 Range/Units 16:20 07:48 Total Bilirubin 0.7 0.7 (0.2-1.0) mg/dL AST 7 L 9 L (15-37) U/L ALT 12 L 10 L (16-63) U/L Alkaline Phosphatase 101 80 (46-116) U/L Albumin 3.0 L 2.3 L (3.4-5.0) g/dL Urine 01/30/23 Range/Units 15:50 Urine Color Yellow (YELLOW) Urine Clarity Clear (CLEAR) Urine pH 5.5 (5.0-9.0) Ur Specific [place] 1.020 (1.005-1.025) Urine Protein 30 A (NEG/TRACE) mg/dL Urine Glucose (UA) Negative (NEGATIVE) mg/dL Assessment and Plan Assessment and Plan (1) Fever: (2) Acute renal failure: (3) Peripheral neuropathy: (4) HTN (hypertension): (5) Hypothyroidism: (6) CHF (congestive heart failure): (7) Afib: (8) Cellulitis: (9) Diabetes: Plan Fever, Tachycardia, respiratory distress, leukocytosis, hyperkalemia with acute kidney injury secondary to fever of unknown source. Possible from left lower extremity cellulitis. Check additional lab work this morning, add additional antibiotic coverage with levofloxacin CT scan with concern for right middle lobe pneumonia-on antibiotics as outlined above, patient without cough, will check respiratory panel-Consider repeat chest x-ray or CT scan of lungs, unable to use contrast secondary to kidney disease Iron deficiency anemia-down somewhat today but probably more closer to his baseline. Likely down secondary to fluid resuscitation from yesterday Hyperkalemia-resolved, monitor daily likely related to the Aldactone we will hold off on Aldactone and Bumex today. Elevated BNP likely related to his renal function-we will track daily, he has no peripheral edema and lung sounds not consistent with CHF. 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
[2023-01-31] MEDS: LIOTHYRONINE SODIUM 5 MCG TABLET 10 MCG PO (09:40)
[2023-01-31] MEDS: LEVOFLOXACIN IN DEXTROSE 5 % 500 MG/100 ML PIGGYBACK IV (09:40)
--- NOTE | 2023-01-31 10:37 | SWNOTE1 ---
SW met with pt and daughter in room to discuss dc needs. Pt lives at home alone, he has several family members who stop over and help as needed. Pt uses a walker at home, but at this time he cannot even get up and walk due to his feet hurting. Pt lives in 1 story home. SW discussed dc plans as pt has been to rehab in past and is having trouble ambulating at this time. Pt and daughter are in agreement for rehab, family is going to discuss facilities. Pt has been to [facility] in past and he stated he will likely want to go there, but family is going to decide together. SW to stop back in later today. Pt will be a precert.
[2023-01-31 11:24] LABS: Glucometer 162 mg/dL (74-106)
[2023-01-31] MEDS: ACETAMINOPHEN 325 MG TABLET 650 MG PO (13:17)
--- NOTE | 2023-01-31 13:48 | CM.NOTE ---
Important Message From [employer] discussed with pt, pt verbalizes understanding and signs paper. Original given to pt and copy put on pt's chart.
--- NOTE | 2023-01-31 15:06 | SWNOTE1 ---
SW met with pt's family to discuss facilities. Family would like to know if pt goes to [facility] would it be a private room? SW called [facility] and they do have 2 discharges tomorrow therefore pt would be able to have private room. SW let family know. They are going to discuss facilities and let SW know.
[2023-01-31] MEDS: CEFTRIAXONE 1,000 MG in 0.9 % SODIUM CHLORIDE 50 ML 100 MG IV (17:38)
[2023-01-31] MEDS: AMITRIPTYLINE HCL 25 MG TABLET PO (21:38)
[2023-02-01] VITALS (19 sets, daily range): BP systolic 137–159; BP diastolic 71–82; PULSE 65–81; RESP 16–20; TEMP 36.6–37.3; O2SAT 91–96
[2023-02-01] MEDS: LACTATED RINGER'S SOLUTION 1,000 ML 50 ML IV (03:29)
[2023-02-01 04:51] LABS: Basophils Percent Auto 0.3 % (0.2-2.0); Eosinophils Absolute Auto 0.2 10^3/uL (0.0-0.7); Eosinophils Percent Auto 2.7 % (0.9-7.0); Hematocrit 31.8 % (42.0-54.0); Hemoglobin 9.9 g/dL (14.0-18.0); Immature Granulocytes Abs Auto 0.02 10^3/uL (0.00-0.03); Immature Granulocytes Pct Auto 0.3 % (0.0-0.5); Lymphocytes Percent Auto 12.2 % (20.5-60.0); Mean Corpuscular HGB Conc 31.1 g/dL (29.9-35.2); Mean Corpuscular Hemoglobin 29.9 pg (25.9-34.0); Mean Corpuscular Volume 96.1 fL (80.0-94.0); Mean Platelet Volume 10.2 fL (9.5-13.5); Monocytes Absolute Auto 1.1 10^3/uL (0.3-0.8); Monocytes Percent Auto 13.8 % (1.7-12.0); Neutrophils Absolute Auto 5.6 10^3/uL (1.4-6.5); Neutrophils Percent Auto 70.7 % (43.0-75.0); Platelet Count 214 10^3/uL (150-450); Red Blood Count 3.31 10^6/uL (4.70-6.10); Red Cell Distribution Width 14.8 % (11.0-15.0); White Blood Count 7.9 10^3/uL (4.0-11.0)
[2023-02-01 05:08] LABS: Erythrocyte Sedimentation Rate 84 mm/hr (<=20)
[2023-02-01 05:19] LABS: Alanine Aminotransferase 9 U/L (16-63); Albumin Globulin Ratio 0.5; Alkaline Phosphatase 77 U/L (46-116); Anion Gap 11.5; Aspartate Amino Transferase 7 U/L (15-37); BUN Creatinine Ratio 16.9; Bilirubin Total 0.5 mg/dL (0.2-1.0); C Reactive Protein 28.8 mg/dL (<=1.0); Calcium 8.4 mg/dL (8.5-10.1); Carbon Dioxide 26.2 mmol/L (21.0-32.0); Chloride 107 mmol/L (98-107); Estimated GFR (African America 32 (>=60); Estimated GFR (Non-African Ame 27 (>=60); Globulin 4.2 g/dL; Glucose 116 mg/dL (74-106); Magnesium 1.7 mg/dL (1.8-2.4); Potassium 4.7 mmol/L (3.5-5.1); Sodium 140 mmol/L (136-145); Total Protein 6.2 g/dL (6.4-8.2)
[2023-02-01] MEDS: LEVOTHYROXINE SODIUM 25 MCG TABLET 50 MCG PO (06:01)
[2023-02-01] MEDS: HYDROCODONE/ACETAMINOPHEN 5-325 MG TABLET 1 TAB PO (06:45)
--- NOTE | 2023-02-01 08:33 | P.PN_ITS ---
Progress Note: Subjective Subjective Interval history: Patient feels somewhat better today. Still with significant weakness in bilateral lower extremities. Exam Constitutional Vital Signs - 24 hr 01/31/23 09:23 01/31/23 11:23 01/31/23 12:13 Temperature 98.5 F Pulse Rate 79 77 79 Respiratory Rate 22 Blood Pressure 93/74 Blood Pressure [Left Arm] Blood Pressure [Right Arm] Pulse Oximetry Oxygen Delivery Method 01/31/23 13:17 01/31/23 14:17 01/31/23 15:02 Temperature 100.5 F H 99.9 F H Pulse Rate 92 H Respiratory Rate Blood Pressure Blood Pressure [Left Arm] Blood Pressure [Right Arm] Pulse Oximetry Oxygen Delivery Method 01/31/23 11:23 01/31/23 15:28 01/31/23 16:30 Temperature 99.0 F Pulse Rate 88 95 H 88 Respiratory Rate 19 19 Blood Pressure 93/74 109/79 Blood Pressure [Left Arm] Blood Pressure [Right Arm] Pulse Oximetry 91 L Oxygen Delivery Method 01/31/23 18:15 01/31/23 18:48 01/31/23 19:29 Temperature Pulse Rate 90 94 H Respiratory Rate Blood Pressure Blood Pressure [Left Arm] Blood Pressure [Right Arm] Pulse Oximetry 93 L Oxygen Delivery Method Room Air 01/31/23 20:42 01/31/23 22:00 02/01/23 00:00 Temperature Pulse Rate 91 H 79 78 Respiratory Rate Blood Pressure Blood Pressure [Left Arm] Blood Pressure [Right Arm] Pulse Oximetry Oxygen Delivery Method 02/01/23 01:14 02/01/23 02:00 02/01/23 04:00 Temperature 98.8 F Pulse Rate 77 76 77 Respiratory Rate 18 Blood Pressure Blood Pressure [Left Arm] Blood Pressure [Right Arm] 150/71 H Pulse Oximetry 93 L Oxygen Delivery Method Room Air 02/01/23 06:00 02/01/23 06:09 02/01/23 07:49 Temperature 99.2 F Pulse Rate 78 81 77 Respiratory Rate 20 Blood Pressure Blood Pressure [Left Arm] 159/71 H Blood Pressure [Right Arm] Pulse Oximetry 91 L Oxygen Delivery Method Common normals: no apparent distress HENMT Common normals: normocephalic Chest Common normals: inspection of chest normal Respiratory Common normals: normal respiratory effort, no retractions and no use of accessory muscles Cardio Rhythm: abnormal rhythm GI Common normals: Normal to inspection, nondistended, normoactive bowel sounds present Extremity Common normals: abnormal to inspection (Erythema to cellulitis improving) Progress Note: Objective Labs Labs: Short CBC 02/01/23 Range/Units 04:24 WBC 7.9 (4.0-11.0) 10^3/uL Hgb 9.9 L (14.0-18.0) g/dL Hct 31.8 L (42.0-54.0) % Plt Count 214 (150-450) 10^3/uL BMP 02/01/23 04:24 Sodium 140 Potassium 4.7 Chloride 107 Carbon Dioxide 26.2 BUN 40.0 H Creatinine 2.37 H Glucose 116 H Calcium 8.4 L Liver Function 02/01/23 Range/Units 04:24 Total Bilirubin 0.5 (0.2-1.0) mg/dL AST 7 L (15-37) U/L ALT 9 L (16-63) U/L Alkaline Phosphatase 77 (46-116) U/L Albumin 2.0 L (3.4-5.0) g/dL Progress Note: A&P Assessment and Plan (1) Fever: (2) Acute renal failure: (3) Peripheral neuropathy: (4) HTN (hypertension): (5) Hypothyroidism: (6) CHF (congestive heart failure): (7) Afib: (8) Cellulitis: (9) Diabetes: (10) Fever: (11) Acute renal failure: (12) Peripheral neuropathy: (13) HTN (hypertension): (14) Hypothyroidism: (15) CHF (congestive heart failure): (16) Afib: (17) Cellulitis: (18) Diabetes: Assessment and Plan (1) Fever: (2) Acute renal failure: (3) Peripheral neuropathy: (4) HTN (hypertension): (5) Hypothyroidism: (6) CHF (congestive heart failure): (7) Afib: (8) Cellulitis: (9) Diabetes: Assessment & Plan (1) Fever: (2) Acute renal failure: (3) Peripheral neuropathy: (4) HTN (hypertension): (5) Hypothyroidism: (6) CHF (congestive heart failure): (7) Afib: (8) Cellulitis: (9) Diabetes: Medications: On Hold hydralazine Hold Comment: Order Change 50 mg PO Q12H irbesartan Hold Comment: Doctor's Order Assessment & Plan (1) Fever: Code(s): R50.9 - Fever, unspecified Category: Medical (2) Acute renal failure: Code(s): N17.9 - Acute kidney failure, unspecified Category: Medical (3) Peripheral neuropathy: Code(s): G62.9 - Polyneuropathy, unspecified Category: Medical (4) HTN (hypertension): Code(s): I10 - Essential (primary) hypertension Category: Medical (5) Hypothyroidism: Code(s): E03.9 - Hypothyroidism, unspecified Category: Medical (6) CHF (congestive heart failure): Code(s): I50.9 - Heart failure, unspecified Category: Medical (7) Afib: Code(s): I48.91 - Unspecified atrial fibrillation Category: Medical (8) Cellulitis: Code(s): L03.90 - Cellulitis, unspecified Category: Medical (9) Diabetes: Code(s): E11.9 - Type 2 diabetes mellitus without complications Category: Medical Medications: On Hold hydralazine Hold Comment: Order Change 50 mg PO Q12H irbesartan Hold Comment: Doctor's Order Prognosis Prognosis narrative: Fever, Tachycardia, respiratory distress, leukocytosis, hyperkalemia with acute kidney injury secondary to fever of unknown source.? Possible from left lower extremity cellulitis.? Improving-needs 1 more day of IV antibiotics CT scan with concern for right middle lobe pneumonia-on antibiotics as outlined above, patient without cough, will check respiratory panel-Consider repeat chest x-ray or CT scan of lungs-as above Iron deficiency anemia-down somewhat today but probably more closer to his baseline.? Likely down secondary to fluid resuscitation from yesterday Hyperkalemia-resolved, monitor daily likely related to the Aldactone we will hold off on Aldactone and Bumex today. Elevated BNP likely related to his renal function-we will track daily, he has no peripheral edema and lung sounds not consistent with CHF. 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
--- NOTE | 2023-02-01 08:46 | CM.NOTE ---
Rounds made with Dr. Lopez, no discharge today. BNP slightly elevated, will stop IV fluids and restart on home diuretic.
[2023-02-01] MEDS: LIOTHYRONINE SODIUM 5 MCG TABLET 10 MCG PO (10:38)
[2023-02-01] MEDS: Sacubitril-Valsartan [Entresto] 49-51 mg tablet 1 EACH PO ×2 (10:38→21:08)
[2023-02-01] MEDS: CARVEDILOL 25 MG TABLET PO ×2 (10:38→21:07)
[2023-02-01] MEDS: ASPIRIN 81 MG TABLET.DR PO (10:38)
[2023-02-01] MEDS: ISOSORBIDE MONONITRATE 60 MG TAB.ER.24H 30 MG PO ×2 (10:38→21:06)
[2023-02-01] MEDS: INSULIN DETEMIR 300 UNIT/3 ML INSULN.PEN 50 UNIT SUBQ (10:38)
[2023-02-01] MEDS: OMEPRAZOLE 40 MG CAPSULE.DR PO (10:38)
[2023-02-01] MEDS: BUMETANIDE 1 MG TABLET 2 MG PO (10:38)
[2023-02-01] MEDS: APIXABAN 5 MG TABLET 2.5 MG PO ×2 (10:38→21:08)
[2023-02-01 11:18] LABS: Glucometer 197 mg/dL (74-106)
--- NOTE | 2023-02-01 11:45 | REH.PTDLY ---
Physical Therapy Daily Note PT Daily Note/Assess Start: 02/01/23 11:41 Freq: Status: Active Protocol: Document 02/01/23 11:41 MARY (Rec: 02/01/23 11:45 MARY [id number]) Physical Therapy Daily Note/Assessment Time In 10:20 Time Out 10:35 Subjective Pt reports he's still the same , not feeling much better. Wanting to get out of ICU bed and into medsurg bed. Therapeutic Exercise Minutes (minutes) 9 Therapeutic Exercise Units 1 Therapeutic Exercise Treatment Instructed in B LE exs 10x ea in supine position with pt needing AAROM with knee flexion and SLR due to weakness. Pain with knee flexion at end range. Seated LAQ and marching 10x ea AROM Therapeutic Activity Minutes (minutes) 3 Therapeutic Activity Units 1 Bed Mobility Ability Maximum Assist,1 Person Assist Chair Transfer Ability Maximum Assist Therapeutic Activity Comments Max A with supine to sit transfer today, pt able to move legs to edge of bed on own. Needs assist with upper body mainly. Total Therapy Minutes 12 Total Physical Therapy Units 2 Daily Note Summary Improved ability to perform exs compared to previous date. Pt is a Max A total assist to chair with OT. Pt reports it feels good to sit up.
--- NOTE | 2023-02-01 12:00 | SWNOTE1 ---
LESLEY received email from [facility] and pt is approved to go to [facility]. Approval is good from 02/01-02/03. LESLEY notified Dr. Lopez. Plan is for discharge tomorrow, 02/02 as long as labs are good. SW to notify family. Updates sent to [facility]. LESLEY updated nursing and [facility] on dc plan.
--- NOTE | 2023-02-01 14:20 | SWNOTE1 ---
LESLEY spoke with son, Roosevelt, to update him on discharge plan for tomorrow. LESLEY spoke with him about transport as well. Pt does not want to go by ambulance. Likely will use [facility] for transport. Roosevelt would like pt to get therapy here at hospital before being discharged tomorrow.
[2023-02-01] MEDS: ACETAMINOPHEN 325 MG TABLET 650 MG PO (14:22)
[2023-02-01 20:24] LABS: Glucometer 147 mg/dL (74-106)
[2023-02-01 20:24] LABS: EBV Ab VCA, IgG >600.0 U/mL (0.0-17.9); EBV Ab VCA, IgM <36.0 U/mL (0.0-35.9)
[2023-02-01 20:47] LABS: Glucometer 123 mg/dL (74-106)
[2023-02-01] MEDS: VANCOMYCIN HCL 1,500 MG in 0.9 % SODIUM CHLORIDE 500 ML 250 MG IV (21:05)
[2023-02-01] MEDS: AMITRIPTYLINE HCL 25 MG TABLET PO (21:07)
[2023-02-01] MEDS: FERROUS SULFATE 325 MG TABLET PO (21:07)
[2023-02-01] MEDS: PREGABALIN 50 MG CAPSULE PO (21:08)
[2023-02-02] VITALS (8 sets, daily range): BP systolic 132; BP diastolic 76; PULSE 66–78; RESP 20; TEMP 36.8; O2SAT 93
[2023-02-02 05:06] LABS: Basophils Percent Auto 0.3 % (0.2-2.0); Eosinophils Absolute Auto 0.3 10^3/uL (0.0-0.7); Eosinophils Percent Auto 3.9 % (0.9-7.0); Hemoglobin 10.5 g/dL (14.0-18.0); Immature Granulocytes Abs Auto 0.05 10^3/uL (0.00-0.03); Immature Granulocytes Pct Auto 0.6 % (0.0-0.5); Lymphocytes Absolute Auto 1.1 10^3/uL (1.2-3.8); Lymphocytes Percent Auto 13.6 % (20.5-60.0); Mean Corpuscular HGB Conc 30.9 g/dL (29.9-35.2); Mean Corpuscular Hemoglobin 29.6 pg (25.9-34.0); Mean Corpuscular Volume 95.8 fL (80.0-94.0); Monocytes Absolute Auto 0.9 10^3/uL (0.3-0.8); Monocytes Percent Auto 11.7 % (1.7-12.0); Neutrophils Absolute Auto 5.6 10^3/uL (1.4-6.5); Neutrophils Percent Auto 69.9 % (43.0-75.0); Platelet Count 242 10^3/uL (150-450); Red Blood Count 3.55 10^6/uL (4.70-6.10); Red Cell Distribution Width 14.4 % (11.0-15.0)
[2023-02-02 05:32] LABS: Erythrocyte Sedimentation Rate 94 mm/hr (<=20)
[2023-02-02 05:38] LABS: Alanine Aminotransferase 13 U/L (16-63); Albumin Globulin Ratio 0.5; Albumin Level 2.1 g/dL (3.4-5.0); Alkaline Phosphatase 80 U/L (46-116); Anion Gap 9.8; Aspartate Amino Transferase 10 U/L (15-37); BUN Creatinine Ratio 17.5; Bilirubin Total 0.5 mg/dL (0.2-1.0); C Reactive Protein 23.1 mg/dL (<=1.0); Calcium 8.8 mg/dL (8.5-10.1); Carbon Dioxide 29.1 mmol/L (21.0-32.0); Chloride 105 mmol/L (98-107); Estimated GFR (African America 34 (>=60); Estimated GFR (Non-African Ame 28 (>=60); Globulin 4.6 g/dL; Glucose 100 mg/dL (74-106); Magnesium 1.7 mg/dL (1.8-2.4); Potassium 4.9 mmol/L (3.5-5.1); Sodium 139 mmol/L (136-145); Total Protein 6.7 g/dL (6.4-8.2)
[2023-02-02] MEDS: LEVOTHYROXINE SODIUM 25 MCG TABLET 50 MCG PO (05:46)
--- NOTE | 2023-02-02 07:57 | P.DS_ITS ---
DS: Providers Provider Date of admission: 01/30/23 18:38 Primary care physician: Yao Lopez MD Consults: 01/31/23 07:13 Occupational Therapy Eval and Treat Routine Physical Therapy Eval and Treat Routine DS: Diagnosis Discharge Diagnosis (1) Fever: (2) Acute renal failure: (3) Peripheral neuropathy: (4) HTN (hypertension): (5) Hypothyroidism: (6) CHF (congestive heart failure): (7) Afib: (8) Cellulitis: (9) Diabetes: Plan Fever, Tachycardia, respiratory distress, leukocytosis, hyperkalemia with acute kidney injury secondary to fever of unknown source.? CT scan with concern for right middle lobe pneumonia- Iron deficiency anemia Hyperkalemia-resolved, Elevated BNP likely related to his renal function Chronic kidney disease stage III- Hypomagnesemia Hypothyroidism Possible left lower extremity cellulitis Insulin-dependent diabetes mellitus mellitus and a type II diabetic-insulin sliding scale Morbid obesity- DS: Summary Hospital Course Hospital Course: Patient was seen and evaluated in the emergency room with increasing weakness. Given medication and sent home, patient had increasing weakness at home unable to ambulate, this is secondary to weakness and pain in his feet. Evaluation emergency room found right middle lobe pneumonia as well as right lower extremity cellulitis. Patient was admitted for work-up and treatment of same. He was placed on IV antibiotics. He improved daily. Still has some significant weakness and unable to ambulate safely so will need rehabilitation but his white blood cell count is returned to normal, no more significant fevers he did have a low-grade fever yesterday. His hyperkalemia has resolved, he is still somewhat hypothyroid and the Cytomel was added, but currently he is stable for discharge to rehab. I will follow patient at rehab, medications see list Status at Discharge Functional status at discharge: uses cane/walker Time Spent with Patient Time attestation: Total time spent providing and/or coordinating discharge services: Exam Constitutional Vital Signs - 24 hr 02/01/23 09:46 02/01/23 09:50 02/01/23 11:47 Temperature Pulse Rate 72 71 Respiratory Rate Blood Pressure [Right Arm] Pulse Oximetry 92 L Oxygen Delivery Method Room Air 02/01/23 12:46 02/01/23 13:51 02/01/23 14:19 Temperature 97.8 F Pulse Rate 72 65 Respiratory Rate 16 Blood Pressure [Right Arm] 137/72 H Pulse Oximetry 92 L 95 Oxygen Delivery Method Room Air Room Air 02/01/23 16:00 02/01/23 18:06 02/01/23 19:59 Temperature Pulse Rate 67 74 Respiratory Rate 16 Blood Pressure [Right Arm] Pulse Oximetry Oxygen Delivery Method 02/01/23 19:59 02/01/23 20:01 02/01/23 22:00 Temperature 97.8 F Pulse Rate 74 71 79 Respiratory Rate 16 Blood Pressure [Right Arm] 147/82 H Pulse Oximetry 92 L Oxygen Delivery Method Room Air 02/01/23 22:03 02/02/23 00:00 02/02/23 01:59 Temperature Pulse Rate 68 66 Respiratory Rate Blood Pressure [Right Arm] Pulse Oximetry 96 Oxygen Delivery Method Room Air 02/02/23 04:00 02/02/23 04:43 02/02/23 05:59 Temperature 98.2 F Pulse Rate 68 78 70 Respiratory Rate 20 Blood Pressure [Right Arm] 132/76 H Pulse Oximetry 93 L Oxygen Delivery Method Room Air 02/02/23 07:21 02/02/23 07:55 Temperature Pulse Rate 74 72 Respiratory Rate Blood Pressure [Right Arm] Pulse Oximetry Oxygen Delivery Method Common normals: no apparent distress Chest Common normals: inspection of chest normal Respiratory Common normals: normal respiratory effort and clear to auscultation bilaterally Effort & inspection: able to speak in complete sentences Cardio Rate: tachycardic Rhythm: abnormal rhythm Extremity Common normals: normal to inspection (Cellulitis-much improved) DS: Data Data Completed and Pending Labs on day of discharge: Labs from last 24 hours 02/02/23 02/01/23 02/01/23 04:25 20:46 16:09 WBC 8.0 RBC 3.55 L Hgb 10.5 L Hct 34.0 L MCV 95.8 H MCH 29.6 MCHC 30.9 RDW 14.4 Plt Count 242 MPV 10.0 Neut % (Auto) 69.9 Lymph % (Auto) 13.6 L [place] % (Auto) 11.7 Eos % (Auto) 3.9 Baso % (Auto) 0.3 Neut # (Auto) 5.6 Lymph # (Auto) 1.1 L [place] # (Auto) 0.9 H Eos # (Auto) 0.3 Baso # (Auto) 0.0 Abs Immat Gran (auto) 0.05 H Imm/Tot Granulo (auto) 0.6 H ESR 94 H Sodium 139 Potassium 4.9 Chloride 105 Carbon Dioxide 29.1 Anion Gap 9.8 BUN 40.0 H Creatinine 2.28 H Est GFR ( Amer) 34 L Est GFR (Non-Af Amer) 28 L BUN/Creatinine Ratio 17.5 Glucose 100 Calcium 8.8 Magnesium 1.7 L Total Bilirubin 0.5 AST 10 L ALT 13 L Alkaline Phosphatase 80 C-Reactive Protein 23.1 H NT-Pro-B Natriuret Pep 66298.0 H* Total Protein 6.7 Albumin 2.1 L Globulin 4.6 Albumin/Globulin Ratio 0.5 EBV Capsid Ag IgG Ab EBV Capsid Ag IgM Ab EBV Nuclear Antigen Ab EBV Antibody Interp POC Glucose 123 H 147 H 02/01/23 01/31/23 11:15 07:48 WBC RBC Hgb Hct MCV MCH MCHC RDW Plt Count MPV Neut % (Auto) Lymph % (Auto) [place] % (Auto) Eos % (Auto) Baso % (Auto) Neut # (Auto) Lymph # (Auto) [place] # (Auto) Eos # (Auto) Baso # (Auto) Abs Immat Gran (auto) Imm/Tot Granulo (auto) ESR Sodium Potassium Chloride Carbon Dioxide Anion Gap BUN Creatinine Est GFR ( Amer) Est GFR (Non-Af Amer) BUN/Creatinine Ratio Glucose Calcium Magnesium Total Bilirubin AST ALT Alkaline Phosphatase C-Reactive Protein NT-Pro-B Natriuret Pep Total Protein Albumin Globulin Albumin/Globulin Ratio EBV Capsid Ag IgG Ab >600.0 H EBV Capsid Ag IgM Ab <36.0 EBV Nuclear Antigen Ab 470.0 H EBV Antibody Interp Comment POC Glucose 197 H Preliminary micro results at discharge 01/30/23 16:20 Blood Culture Result 1 - Preliminary Blood NO GROWTH AT 36-48 HOURS. FINAL TO FOLLOW. 01/30/23 16:15 Blood Culture Result 1 - Preliminary Blood NO GROWTH AT 36-48 HOURS. FINAL TO FOLLOW. Discharge Plan Discharge Discharge Medications: New Eliquis 5 mg Tablet 2.5 mg PO BID Qty: 60 0RF levofloxacin 500 mg tablet 500 mg PO DAILY 10 Days Qty: 10 0RF Continued amitriptyline 25 mg tablet 25 mg PO .QHS atorvastatin 20 mg tablet 20 mg PO .evening bumetanide 2 mg tablet 2 mg PO DAILY carvedilol 25 mg tablet 25 mg PO Q12H ferrous sulfate [FeroSul] 325 mg (65 mg iron) tablet 325 mg PO .evening hydralazine 50 mg tablet 50 mg PO Q12H Hold Instructions: Order Change insulin glargine [Lantus Solostar U-100 Insulin] 100 unit/mL (3 mL) insulin pen 50 unit SUBCUT BID isosorbide mononitrate 60 mg tablet extended release 24 hr 30 mg PO BID levothyroxine 50 mcg tablet 50 mcg PO QAM hydrocodone-acetaminophen 5-325 mg tablet 1 tab PO Q8H PRN (Reason: pain) Qty: 20 0RF Entresto 49-51 mg tablet 1 tab PO BID aspirin [Adult Aspirin Regimen] 81 mg tablet,delayed release (DR/EC) 81 mg PO DAILY doxazosin 4 mg tablet 8 mg PO DAILY Changed spironolactone 25 mg tablet 12.5 mg PO Q48H Qty: 0 0RF Discontinued Eliquis 5 mg tablet 5 mg PO BID 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
[2023-02-02] MEDS: ASPIRIN 81 MG TABLET.DR PO (10:12)
[2023-02-02] MEDS: OMEPRAZOLE 40 MG CAPSULE.DR PO (10:12)
[2023-02-02] MEDS: APIXABAN 5 MG TABLET 2.5 MG PO (10:12)
[2023-02-02] MEDS: LIOTHYRONINE SODIUM 5 MCG TABLET 10 MCG PO (10:13)
[2023-02-02] MEDS: BUMETANIDE 1 MG TABLET 2 MG PO (10:13)
[2023-02-02] MEDS: DOXAZOSIN MESYLATE 2 MG TABLET 8 MG PO (10:15)
[2023-02-02] MEDS: ISOSORBIDE MONONITRATE 60 MG TAB.ER.24H 30 MG PO (10:19)
[2023-02-02] MEDS: INSULIN DETEMIR 300 UNIT/3 ML INSULN.PEN 50 UNIT SUBQ (10:19)
[2023-02-02] MEDS: Sacubitril-Valsartan [Entresto] 49-51 mg tablet 1 EACH PO (10:20)
[2023-02-02] MEDS: CARVEDILOL 25 MG TABLET PO (10:26)
--- NOTE | 2023-02-02 10:38 | SWNOTE1 ---
Pt is ready for dc today. SW spoke with pt and they have decided on using [facility] for transport. SW called trips and they can be here around 12, SW called pt's son to verify 12 was alright. Roosevelt, son, is alright with 12 for transport and he will notify rest of family. LESLEY sent over dc orders, completed [facility], updated packet, and notified [facility] and nursing of transport time.
--- NOTE | 2023-02-02 11:55 | PC.NURSE ---
Report called to Shabana leon at [facility]
== END 2023-02-02 11:41 | DRG 194 ==
LOC: ER 18:34 → ICU 19:01 → MS 01-31 15:59
PROVIDERS: Admitting Provider Internal Medicine; Emergency Provider Emergency Medicine Emergency Medical Services; PCP Family Medicine; Visit Provider Family Medicine
DX: J18.9 Pneumonia, unspecified organism (principal); I13.0 Hypertensive heart and chronic kidney disease with heart failure and stage 1 through stage 4 chronic kidney disease, or unspecified chronic kidney disease; N17.9 Acute kidney failure, unspecified; L03.116 Cellulitis of left lower limb; R50.9 Fever, unspecified; I50.9 Heart failure, unspecified; I48.91 Unspecified atrial fibrillation; E03.9 Hypothyroidism, unspecified; E11.42 Type 2 diabetes mellitus with diabetic polyneuropathy; E87.5 Hyperkalemia; R06.03 Acute respiratory distress; D50.9 Iron deficiency anemia, unspecified; R79.89 Other specified abnormal findings of blood chemistry; N18.30 Chronic kidney disease, stage 3 unspecified; E83.42 Hypomagnesemia; E66.01 Morbid (severe) obesity due to excess calories; Z83.3 Family history of diabetes mellitus; Z79.4 Long term (current) use of insulin; Z79.890 Hormone replacement therapy; Z79.01 Long term (current) use of anticoagulants; Z79.82 Long term (current) use of aspirin; Z79.899 Other long term (current) drug therapy; Z68.26 Body mass index [BMI] 26.0-26.9, adult
CPT/HCPCS: 0202U; 36415; 51798; 71045; 73590; 74176; 80053; 80061; 80329; 81003; 81015; 82550; 82553; 83605; 83735; 83874; 83880; 84134; 84436; 84443; 84481; 84484; 84550; 85007; 85025; 85652; 85730; 86140; 86308; 86664; 86665; 87040; 93005; 93971; 94667; 94668; 94761; 96365; 96366; 96367; 96375; 97110; 97162; 97165; 97530; 97535; 99285; J3370; Q3014

== ENCOUNTER 2023-02-04 09:00 | Inpatient (IN) | payer MEDICARE, SELFPAY ==
[2023-02-04] VITALS (66 sets, daily range): BP systolic 45–153; BP diastolic 28–109; PULSE 75–109; RESP 12–24; TEMP 36.6–37.2; O2SAT 69–100; BMI 29.9; BMI 30.4
--- NOTE | 2023-02-04 09:00 | CT_ITS ---
The [address] [address] Patient Name: JAJA FRANKLIN MRN: [id number] date: 1940 Sex: M Assigned Patient Location: ED.MAIN Current Patient Location: ED.MAIN Accession/Order Number: [id number] Exam Date: 02/04/2023 09:00 Report Date: 02/04/2023 09:21 At the request of: JAZLYN SHERIDAN Procedure: CT stroke head/brain wo con EXAM: CT scan of the head without contrast. Dose reduction technique used: Automated exposure control and/or adjustment of the mA and/or kV according to patient size and/or use of iterative reconstruction technique. REASON FOR EXAM: ALTERED MENTAL STATUS COMPARISON: CT scan dated 05/19/2021 FINDINGS: No intracranial hemorrhage, mass effect, midline shift, fractures or evidence of acute ischemic infarct. No hydrocephalus. Old left basal ganglia lacunar infarct. Moderate generalized cerebral and cerebellar volume loss. Moderate small vessel gliosis. Paranasal sinuses and mastoid air cells are clear. Remainder unremarkable. IMPRESSION: No acute intracranial abnormalities. Electronically authenticated by: MADELINE ACOSTA Date: 02/04/2023 09:21
--- NOTE | 2023-02-04 09:08 | ECG_ITS ---
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
--- NOTE | 2023-02-04 09:12 | ED_ITS ---
HPI - Altered Mental Status General Chief Complaint: Altered Mental Status Stated Complaint: ALTERED MENTAL STATUS Time Seen by Provider: 02/04/23 09:07 Source: patient Limitations: no limitations History of Present Illness HPI narrative: The family arrived at [facility] this morning to find the patient acutely altered. They had seen him each of the last few days and he was acting normally. He had recently been admitted to [facility] and some time between when he came through the ED and we verified his meds and the time he was discharged back to the [facility], the patient's med list erroneously added hydralazine, cardura and double dose of isosorbide. He received these meds this morning, which caused his BP to drop and he became confused. Glucose greater than 100 on multiple checks by the nurse at the [facility] and by EMS. The patient is talking and has no complaint at this time. The family told me that the patient's speech was slurred and he slower than normal to answer questions. Related Data Home Medications Medication Instructions Recorded Confirmed amitriptyline 25 mg tablet 25 mg PO .QHS 01/28/23 01/30/23 atorvastatin 20 mg tablet 20 mg PO .evening 01/28/23 01/30/23 bumetanide 2 mg tablet 2 mg PO DAILY 01/28/23 01/30/23 carvedilol 25 mg tablet 25 mg PO Q12H 01/28/23 01/30/23 ferrous sulfate 325 mg (65 mg 325 mg PO .evening 01/28/23 01/30/23 iron) tablet (FeroSul) hydralazine 50 mg tablet 50 mg PO Q12H 01/28/23 01/30/23 insulin glargine 100 unit/mL (3 50 unit subcut BID 01/28/23 01/31/23 mL) subcutaneous pen (Lantus Solostar U-100 Insulin) isosorbide mononitrate 60 mg 30 mg PO BID 01/28/23 02/04/23 tablet,extended release 24 hr levothyroxine 50 mcg tablet 50 mcg PO QAM 01/28/23 01/31/23 aspirin 81 mg tablet,delayed 81 mg PO DAILY 01/30/23 02/04/23 release (Adult Aspirin Regimen) sacubitril 49 mg-valsartan 51 mg 1 tab PO BID 01/30/23 01/30/23 tablet (Entresto) doxazosin 4 mg tablet 8 mg PO DAILY 01/31/23 01/31/23 Previous Rx's Medication Instructions Recorded hydrocodone 5 mg-acetaminophen 325 1 tab PO Q8H PRN pain #20 tabs 01/28/23 mg tablet apixaban 5 mg tablet (Eliquis) 2.5 mg PO BID #60 tabs 02/02/23 levofloxacin 500 mg tablet 500 mg PO DAILY 10 days #10 tabs 02/02/23 spironolactone 25 mg tablet 12.5 mg PO Q48H #0 tabs 02/02/23 Allergies Allergy/AdvReac Type Severity Reaction Status Date / Time No Known Drug Allergies Allergy Verified 01/28/23 08:40 PFSH PFS Medical History (Updated 01/30/23 @ 22:19 by Shabana Bob) Family History (Updated 01/30/23 @ 22:16 by Shabana Bob) Other Family history of diabetes mellitus Social History (Updated 01/30/23 @ 22:18 by Shabana Bob) Non-prescribed substance use: denies use Highest level of school completed/degree received: high school graduate Are you now , , , , never or living with a partner: In a typical week, how many times do you talk on the telephone with family, friends, or neighbors: 3 or more times per week How often do you get together with friends or relatives: twice per week How often do you attend jehovah's witness or jain services: 1-3 times per year Do you belong to any clubs or organizations such as jehovah's witness groups unions, fraternal or athletic groups, or school groups: no Total score: 1 Score interpretation: A score of less than or equal to 1 indicates the most socially isolated. Little interest or pleasure in doing things: several days Feeling down, depressed, or hopeless: several days Feel stressed/tense/nervous/anxious/difficulty sleeping: not at all Life stressors: recent of family or friend Do you think of yourself as: straight/heterosexual Gender Identity: male Exam Narrative Exam Narrative: Nurses notes and vital signs reviewed and patient is not hypoxic. afebrile hypotensive General: Well-appearing and in no apparent distress. Skin: Warm, dry, no pallor noted. No rash. Head: Normocephalic, atraumatic. Neck: Supple, non-tender. Eye: Pupils are equal, round and EOMI. No scleral icterus. Ears, Nose, Mouth, and Throat: TM are clear, no nasal mucosal hypertrophy. Oral mucosa is moist, no posterior oropharynx erythema, uvula is mid-line Cardiovascular: Regular Rate and Rhythm without murmur, gallop or rub. Respiratory: No accessory muscle use or respiratory distress. Lungs are clear to auscultation, no wheezing, rales or rhonchi Chest Wall: no tenderness Back: No midline thoracic or lumbar vertebral tenderness. No CVA tenderness Musculoskeletal: normal ROM, no calf or popliteal tenderness, no lower extremity edema/swelling GI: Abdomen is soft, non-distended. Normal bowel sounds. No masses appreciated. No tenderness to palpation. No rebound, guarding, or rigidity noted. Neurological: A&O x4. No cranial nerve dysfunction observed. No truncal ataxia. Moves all extremities. Sensation intact. Psychiatric: Cooperative and interactive. Normal mood and affect. Constitutional Vital Signs - 24 hr 02/04/23 09:08 Temperature 97.9 F Pulse Rate [Monitor] 109 H Respiratory Rate 18 Blood Pressure [Left Arm] 91/60 Pulse Oximetry 97 Oxygen Delivery Method Room Air Course Vital Signs Vital signs: Vital Signs Temperature 97.9 F 02/04/23 09:08 Pulse Rate 109 H 02/04/23 09:08 Respiratory Rate 18 02/04/23 09:08 Blood Pressure 91/60 02/04/23 09:08 Pulse Oximetry 97 02/04/23 09:08 Oxygen Delivery Method Room Air 02/04/23 09:08 Temperature 97.9 F 02/04/23 09:08 Pulse Rate 109 H 02/04/23 09:08 Respiratory Rate 18 02/04/23 09:08 Blood Pressure 91/60 02/04/23 09:08 Pulse Oximetry 97 02/04/23 09:08 Oxygen Delivery Method Room Air 02/04/23 09:08 MDM - Altered Mental Status MDM Narrative Medical decision making narrative: Patient sent from the [facility] by EMS for evaluation of altered mental status. He had normal blood sugar readings but was hypotensive after incorrectly receiving excessive doses of antihypertensive medications this morning. Patient was placed on mechanical laboratory technician and EKG obtained. Blood drawn and sent for evaluation. Patient's head CT did not recveal ICH. he was given 2 liters NS IVF. Case discussed with dr Young, covering for Dr Lopez. Patient will be admitted to the ICU. I do not want to give additional NS IVF and fluid overload the patient. I also do not want to start pressors since he is mentating, without focal neuro deficit and the BP change is from incorrect med dosing. Dr Young is in agreement - will hold all anti-hypertensive meds and monitor. Lab Data Attestation: I reviewed the patient's lab results. Labs: Lab Results 02/04/23 Range/Units 09:20 WBC 8.5 (4.0-11.0) 10^3/uL RBC 3.72 L (4.70-6.10) 10^6/uL Hgb 11.1 L (14.0-18.0) g/dL Hct 35.4 L (42.0-54.0) % MCV 95.2 H (80.0-94.0) fL MCH 29.8 (25.9-34.0) pg MCHC 31.4 (29.9-35.2) g/dL RDW 14.8 (11.0-15.0) % Plt Count 224 (150-450) 10^3/uL MPV 11.1 (9.5-13.5) fL Neut % (Auto) 70.2 (43.0-75.0) % Lymph % (Auto) 15.9 L (20.5-60.0) % Marin % (Auto) 8.9 (1.7-12.0) % Eos % (Auto) 4.4 (0.9-7.0) % Baso % (Auto) 0.4 (0.2-2.0) % Neut # (Auto) 6.0 (1.4-6.5) 10^3/uL Lymph # (Auto) 1.4 (1.2-3.8) 10^3/uL Marin # (Auto) 0.8 (0.3-0.8) 10^3/uL Eos # (Auto) 0.4 (0.0-0.7) 10^3/uL Baso # (Auto) 0.0 (0.0-0.1) 10^3/uL Abs Immat Gran (auto) 0.02 (0.00-0.03) 10^3/uL Imm/Tot Granulo (auto) 0.2 (0.0-0.5) % Sodium 142 (136-145) mmol/L Potassium 4.6 (3.5-5.1) mmol/L Chloride 106 (98-107) mmol/L Carbon Dioxide 28.6 (21.0-32.0) mmol/L Anion Gap 12.0 BUN 49.0 H (7.0-18.0) mg/dL Creatinine 2.90 H (0.70-1.30) mg/dL Est GFR ( Amer) 26 L (>=60) Est GFR (Non-Af Amer) 21 L (>=60) BUN/Creatinine Ratio 16.9 Glucose 113 H (74-106) mg/dL Lactate 1.8 (0.4-2.0) mmol/L Calcium 8.4 L (8.5-10.1) mg/dL Total Bilirubin 0.4 (0.2-1.0) mg/dL AST 14 L (15-37) U/L ALT 16 (16-63) U/L Alkaline Phosphatase 86 (46-116) U/L Ammonia 19 (11-32) umol/L Troponin I High Sens 8.4 (4.0-76.1) pg/mL Total Protein 6.8 (6.4-8.2) g/dL Albumin 2.2 L (3.4-5.0) g/dL Globulin 4.6 g/dL Albumin/Globulin Ratio 0.5 Acetone, Qual Negative (NEGATIVE) Imaging Data CT scan - head: Radiologist's impression: Patient Name: JAJA FRANKLIN MRN: [facility]:[id number] date: 1940 Sex: M Assigned Patient Location: ED.MAIN Current Patient Location: ED.MAIN Accession/Order Number: [id number] Exam Date: 02/04/2023 09:00 Report Date: 02/04/2023 09:21 At the request of: JAZLYN SHERIDAN Procedure: CT stroke head/brain wo con EXAM: CT scan of the head without contrast. Dose reduction technique used: Automated exposure control and/or adjustment of the mA and/or kV according to patient size and/or use of iterative reconstruction technique. REASON FOR EXAM: ALTERED MENTAL STATUS COMPARISON: CT scan dated 05/19/2021 FINDINGS: No intracranial hemorrhage, mass effect, midline shift, fractures or evidence of acute ischemic infarct. No hydrocephalus. Old left basal ganglia lacunar infarct. Moderate generalized cerebral and cerebellar volume loss. Moderate small vessel gliosis. Paranasal sinuses and mastoid air cells are clear. Remainder unremarkable. IMPRESSION: No acute intracranial abnormalities. Electronically authenticated by: MADELINE ACOSTA Date: 02/04/2023 09:21 ECG Data Interpretation: EKG interpretation: Emergency Department physician interpretation. rate controlled atrial fibrillation at 95bpm. Non-specific ST-T changes. No ST segment elevation or depression. Discharge Plan Discharge Chief Complaint: Altered Mental Status Patient Disposition: Admitted as Observation Time of Disposition Decision: 10:27 Prescriptions / Home Meds: No Action amitriptyline 25 mg tablet 25 mg PO .QHS atorvastatin 20 mg tablet 20 mg PO .evening bumetanide 2 mg tablet 2 mg PO DAILY carvedilol 25 mg tablet 25 mg PO Q12H ferrous sulfate [FeroSul] 325 mg (65 mg iron) tablet 325 mg PO .evening hydralazine 50 mg tablet 50 mg PO Q12H Hold Instructions: Order Change insulin glargine [Lantus Solostar U-100 Insulin] 100 unit/mL (3 mL) insulin pen 50 unit SUBCUT BID isosorbide mononitrate 60 mg tablet extended release 24 hr 30 mg PO BID levothyroxine 50 mcg tablet 50 mcg PO QAM hydrocodone-acetaminophen 5-325 mg tablet 1 tab PO Q8H PRN (Reason: pain) Qty: 20 0RF Patient Comments: QTY: 20, 6 day supply. filled 01/28/23 Entresto 49-51 mg tablet 1 tab PO BID aspirin [Adult Aspirin Regimen] 81 mg tablet,delayed release (DR/EC) 81 mg PO DAILY Hold Instructions: Doctor's Order doxazosin 4 mg tablet 8 mg PO DAILY Eliquis 5 mg Tablet 2.5 mg PO BID Qty: 60 0RF levofloxacin 500 mg tablet 500 mg PO DAILY 10 Days Qty: 10 0RF spironolactone 25 mg tablet 12.5 mg PO Q48H Qty: 0 0RF
[2023-02-04] MEDS: 0.9 % SODIUM CHLORIDE 1,000 ML 1000 ML IV (09:21)
[2023-02-04 09:45] LABS: Basophils Percent Auto 0.4 % (0.2-2.0); Eosinophils Absolute Auto 0.4 10^3/uL (0.0-0.7); Eosinophils Percent Auto 4.4 % (0.9-7.0); Hematocrit 35.4 % (42.0-54.0); Hemoglobin 11.1 g/dL (14.0-18.0); Immature Granulocytes Abs Auto 0.02 10^3/uL (0.00-0.03); Immature Granulocytes Pct Auto 0.2 % (0.0-0.5); Lymphocytes Absolute Auto 1.4 10^3/uL (1.2-3.8); Lymphocytes Percent Auto 15.9 % (20.5-60.0); Mean Corpuscular HGB Conc 31.4 g/dL (29.9-35.2); Mean Corpuscular Hemoglobin 29.8 pg (25.9-34.0); Mean Corpuscular Volume 95.2 fL (80.0-94.0); Mean Platelet Volume 11.1 fL (9.5-13.5); Monocytes Absolute Auto 0.8 10^3/uL (0.3-0.8); Monocytes Percent Auto 8.9 % (1.7-12.0); Neutrophils Percent Auto 70.2 % (43.0-75.0); Platelet Count 224 10^3/uL (150-450); Red Blood Count 3.72 10^6/uL (4.70-6.10); Red Cell Distribution Width 14.8 % (11.0-15.0); White Blood Count 8.5 10^3/uL (4.0-11.0)
[2023-02-04 10:01] LABS: Ammonia 19 umol/L (11-32)
[2023-02-04 10:07] LABS: Lactate/Lactic Acid 1.8 mmol/L (0.4-2.0)
[2023-02-04 10:27] LABS: Acetone NEGATIVE (NEGATIVE); Alanine Aminotransferase 16 U/L (16-63); Albumin Globulin Ratio 0.5; Albumin Level 2.2 g/dL (3.4-5.0); Alkaline Phosphatase 86 U/L (46-116); Aspartate Amino Transferase 14 U/L (15-37); BUN Creatinine Ratio 16.9; Bilirubin Total 0.4 mg/dL (0.2-1.0); Calcium 8.4 mg/dL (8.5-10.1); Carbon Dioxide 28.6 mmol/L (21.0-32.0); Chloride 106 mmol/L (98-107); Estimated GFR (African America 26 (>=60); Estimated GFR (Non-African Ame 21 (>=60); Globulin 4.6 g/dL; Glucose 113 mg/dL (74-106); Potassium 4.6 mmol/L (3.5-5.1); Sodium 142 mmol/L (136-145); Total Protein 6.8 g/dL (6.4-8.2); Troponin I High Sensitivity 8.4 pg/mL (4.0-76.1)
--- NOTE | 2023-02-04 11:19 | PC.NURSE ---
/ pt alert and oriented pt talking with familyno complaints at this time
[2023-02-04] MEDS: 0.9 % SODIUM CHLORIDE 1,000 ML 100 ML IV (11:22)
[2023-02-04] MEDS: 0.9 % SODIUM CHLORIDE 1,000 ML 80 ML IV (16:51)
[2023-02-04 18:48] LABS: Glucometer 91 mg/dL (74-106)
[2023-02-04] MEDS: ATORVASTATIN CALCIUM 20 MG TABLET PO (20:55)
[2023-02-04] MEDS: AMITRIPTYLINE HCL 25 MG TABLET PO (20:56)
[2023-02-04] MEDS: FERROUS SULFATE 325 MG TABLET PO (20:56)
[2023-02-04] MEDS: APIXABAN 5 MG TABLET 2.5 MG PO (20:56)
[2023-02-04 21:01] LABS: Glucometer 156 mg/dL (74-106)
[2023-02-05] VITALS (25 sets, daily range): BP systolic 86–161; BP diastolic 43–86; PULSE 70–100; RESP 15–35; TEMP 36.3–36.8; O2SAT 67–99
[2023-02-05] MEDS: 0.9 % SODIUM CHLORIDE 1,000 ML 80 ML IV ×2 (05:14→16:23)
[2023-02-05] MEDS: LEVOTHYROXINE SODIUM 25 MCG TABLET 50 MCG PO (05:15)
[2023-02-05 05:51] LABS: BUN Creatinine Ratio 17.4; Calcium 8.4 mg/dL (8.5-10.1); Carbon Dioxide 26.9 mmol/L (21.0-32.0); Chloride 108 mmol/L (98-107); Estimated GFR (African America 32 (>=60); Estimated GFR (Non-African Ame 26 (>=60); Glucose 82 mg/dL (74-106); Potassium 3.9 mmol/L (3.5-5.1); Sodium 142 mmol/L (136-145)
[2023-02-05] MEDS: LEVOFLOXACIN 500 MG TABLET PO (08:38)
[2023-02-05] MEDS: ISOSORBIDE MONONITRATE 60 MG TAB.ER.24H 30 MG PO ×2 (08:38→21:02)
[2023-02-05] MEDS: SPIRONOLACTONE 25 MG TABLET 12.5 MG PO (08:38)
[2023-02-05] MEDS: ASPIRIN 81 MG TABLET.DR PO (08:39)
[2023-02-05] MEDS: APIXABAN 5 MG TABLET 2.5 MG PO ×2 (08:39→21:02)
[2023-02-05] MEDS: BUMETANIDE 1 MG TABLET 2 MG PO (08:39)
[2023-02-05] MEDS: INSULIN DETEMIR 300 UNIT/3 ML INSULN.PEN 50 UNIT SUBQ (08:44)
--- NOTE | 2023-02-05 08:46 | P.HP_ITS ---
H&P: HPI History of Present Illness Chief complaint: ALTERED MENTAL STATUS HYPOTERSION D/T MEDICINE Narrative: Received a call from the alf They are having difficulty finding consistent blood pressure, referred out to ER, blood pressure significantly low in ER, reviewed medications and patient was on medications that have been stopped, having alf and I will investigate how this happened. Patient admitted to the ICU due to altered mental status and hypotension. Review of Systems ROS Constitutional Denies: fever or chills Respiratory Denies: shortness of breath or cough [facility] Medical History (Updated 02/05/23 @ 08:49 by Yao Lopez MD) Family History (Updated 01/30/23 @ 22:16 by Shabana Bob) Other Family history of diabetes mellitus Social History (Updated 01/30/23 @ 22:18 by Shabana Bob) Non-prescribed substance use: denies use Highest level of school completed/degree received: high school graduate Are you now , , , , never or living with a partner: In a typical week, how many times do you talk on the telephone with family, friends, or neighbors: 3 or more times per week How often do you get together with friends or relatives: twice per week How often do you attend orthodox or taoism services: 1-3 times per year Do you belong to any clubs or organizations such as orthodox groups unions, fraternal or athletic groups, or school groups: no Total score: 1 Score interpretation: A score of less than or equal to 1 indicates the most socially isolated. Little interest or pleasure in doing things: several days Feeling down, depressed, or hopeless: several days Feel stressed/tense/nervous/anxious/difficulty sleeping: not at all Life stressors: recent of family or friend Do you think of yourself as: straight/heterosexual Gender Identity: male Meds Home Medications and Allergies Home Medications Medication Instructions Recorded Confirmed Type amitriptyline 25 mg tablet 25 mg PO .QHS 01/28/23 02/04/23 History atorvastatin 20 mg tablet 20 mg PO .evening 01/28/23 02/04/23 History bumetanide 2 mg tablet 2 mg PO DAILY 01/28/23 02/04/23 History carvedilol 25 mg tablet 25 mg PO Q12H 01/28/23 02/04/23 History ferrous sulfate 325 mg (65 mg 325 mg PO .evening 01/28/23 02/04/23 History iron) tablet (FeroSul) hydralazine 50 mg tablet 50 mg PO Q12H 01/28/23 02/04/23 History insulin glargine 100 unit/mL (3 50 unit subcut BID 01/28/23 02/04/23 History mL) subcutaneous pen (Lantus Solostar U-100 Insulin) isosorbide mononitrate 60 mg 30 mg PO BID 01/28/23 02/04/23 History tablet,extended release 24 hr levothyroxine 50 mcg tablet 50 mcg PO QAM 01/28/23 02/04/23 History aspirin 81 mg tablet,delayed 81 mg PO DAILY 01/30/23 02/04/23 History release (Adult Aspirin Regimen) sacubitril 49 mg-valsartan 51 mg 1 tab PO BID 01/30/23 02/04/23 History tablet (Entresto) doxazosin 4 mg tablet 8 mg PO DAILY 01/31/23 02/04/23 History apixaban 5 mg tablet (Eliquis) 2.5 mg PO BID #60 tabs 02/02/23 02/04/23 Rx spironolactone 25 mg tablet 12.5 mg PO Q48H #0 tabs 02/02/23 02/04/23 Rx hydrocodone 5 mg-acetaminophen 325 2 tab PO Q8H PRN pain 02/04/23 02/04/23 History mg tablet Allergies Allergy/AdvReac Type Severity Reaction Status Date / Time No Known Drug Allergies Allergy Verified 01/28/23 08:40 Exam Narrative Exam Narrative: Still somewhat confused to location, thinks he is in the basement as opposed to second floor Constitutional Vital Signs - 24 hr 02/04/23 09:08 02/04/23 09:10 02/04/23 09:10 Temperature 97.9 F Pulse Rate 92 H 84 Pulse Rate [Monitor] 109 H Respiratory Rate 18 16 14 Blood Pressure 91/60 Blood Pressure [Left Arm] 91/60 Pulse Oximetry 97 100 Oxygen Delivery Method Room Air Oxygen Delivery Flow Rate 02/04/23 09:50 02/04/23 10:01 02/04/23 10:15 Temperature Pulse Rate 97 H 98 H 97 H Pulse Rate [Monitor] Respiratory Rate 12 19 14 Blood Pressure 87/52 L 86/55 L 99/60 Blood Pressure [Left Arm] Pulse Oximetry 93 L 99 99 Oxygen Delivery Method Oxygen Delivery Flow Rate 02/04/23 10:30 02/04/23 10:46 02/04/23 10:47 Temperature Pulse Rate 81 91 H 91 H Pulse Rate [Monitor] Respiratory Rate 13 14 12 Blood Pressure 83/66 L 45/32 L 58/32 L Blood Pressure [Left Arm] Pulse Oximetry 96 98 98 Oxygen Delivery Method Oxygen Delivery Flow Rate 02/04/23 11:00 02/04/23 11:07 02/04/23 11:15 Temperature Pulse Rate 94 H 92 H 93 H Pulse Rate [Monitor] Respiratory Rate 15 19 21 Blood Pressure 56/41 L 71/28 L 60/28 L Blood Pressure [Left Arm] Pulse Oximetry 98 99 98 Oxygen Delivery Method Oxygen Delivery Flow Rate 02/04/23 11:30 02/04/23 11:45 02/04/23 12:00 Temperature Pulse Rate 83 91 H 95 H Pulse Rate [Monitor] Respiratory Rate 12 18 23 Blood Pressure 83/37 L 77/49 L 85/38 L Blood Pressure [Left Arm] Pulse Oximetry 96 95 95 Oxygen Delivery Method Oxygen Delivery Flow Rate 02/04/23 12:15 02/04/23 12:50 02/04/23 13:05 Temperature 97.9 F Pulse Rate 96 H 96 H Pulse Rate [Monitor] 84 Respiratory Rate 18 18 17 Blood Pressure 82/41 L Blood Pressure [Left Arm] 80/48 L 129/85 H Pulse Oximetry 96 97 97 Oxygen Delivery Method Room Air Room Air Oxygen Delivery Flow Rate 02/04/23 13:05 02/04/23 16:09 02/04/23 12:15 Temperature Pulse Rate 91 H 93 H Pulse Rate [Monitor] Respiratory Rate 14 Blood Pressure 82/41 L Blood Pressure [Left Arm] Pulse Oximetry 98 98 Oxygen Delivery Method Room Air Oxygen Delivery Flow Rate 02/04/23 12:30 02/04/23 12:48 02/04/23 12:50 Temperature Pulse Rate 92 H 91 H 96 H Pulse Rate [Monitor] Respiratory Rate 23 18 18 Blood Pressure 89/53 L Blood Pressure [Left Arm] Pulse Oximetry Oxygen Delivery Method Oxygen Delivery Flow Rate 02/04/23 12:59 02/04/23 13:00 02/04/23 14:13 Temperature Pulse Rate 96 H 97 H 96 H Pulse Rate [Monitor] Respiratory Rate 24 18 16 Blood Pressure 129/85 H 125/71 H Blood Pressure [Left Arm] Pulse Oximetry 96 97 Oxygen Delivery Method Oxygen Delivery Flow Rate 02/04/23 14:15 02/04/23 14:30 02/04/23 14:46 Temperature Pulse Rate 92 H 99 H 106 H Pulse Rate [Monitor] Respiratory Rate 16 19 22 Blood Pressure 113/71 110/65 151/79 H Blood Pressure [Left Arm] Pulse Oximetry 97 96 69 L Oxygen Delivery Method Oxygen Delivery Flow Rate 02/04/23 15:00 02/04/23 15:15 02/04/23 15:30 Temperature Pulse Rate 85 99 H 78 Pulse Rate [Monitor] Respiratory Rate 23 19 19 Blood Pressure 130/67 H 91/66 123/69 H Blood Pressure [Left Arm] Pulse Oximetry 95 96 98 Oxygen Delivery Method Oxygen Delivery Flow Rate 02/04/23 15:45 02/04/23 16:00 02/04/23 16:15 Temperature Pulse Rate 79 90 85 Pulse Rate [Monitor] Respiratory Rate 19 17 19 Blood Pressure 108/60 122/70 H 127/70 H Blood Pressure [Left Arm] Pulse Oximetry 94 L 96 96 Oxygen Delivery Method Oxygen Delivery Flow Rate 02/04/23 16:31 02/04/23 16:45 02/04/23 17:36 Temperature Pulse Rate 95 H 89 92 H Pulse Rate [Monitor] Respiratory Rate 15 15 Blood Pressure 153/76 H 130/72 H Blood Pressure [Left Arm] Pulse Oximetry 96 95 Oxygen Delivery Method Oxygen Delivery Flow Rate 02/04/23 18:50 02/04/23 19:00 02/04/23 21:00 Temperature 98.4 F Pulse Rate 86 96 H 103 H Pulse Rate [Monitor] Respiratory Rate 18 Blood Pressure Blood Pressure [Left Arm] 131/86 H Pulse Oximetry 99 Oxygen Delivery Method Room Air Oxygen Delivery Flow Rate 02/04/23 22:00 02/04/23 22:00 02/04/23 23:00 Temperature Pulse Rate 88 85 Pulse Rate [Monitor] 83 Respiratory Rate 16 16 Blood Pressure Blood Pressure [Left Arm] 126/66 H Pulse Oximetry 95 Oxygen Delivery Method Room Air Oxygen Delivery Flow Rate 02/05/23 08:00 02/05/23 08:00 02/05/23 08:00 Temperature 98 F Pulse Rate 88 88 Pulse Rate [Monitor] 80 Respiratory Rate 18 Blood Pressure Blood Pressure [Left Arm] 142/74 H Pulse Oximetry 99 Oxygen Delivery Method Room Air Oxygen Delivery Flow Rate 02/05/23 01:46 02/04/23 16:45 02/04/23 17:00 Temperature 98.9 F Pulse Rate 83 75 92 H Pulse Rate [Monitor] Respiratory Rate 19 19 Blood Pressure 130/72 H 134/67 H Blood Pressure [Left Arm] Pulse Oximetry 96 96 Oxygen Delivery Method Oxygen Delivery Flow Rate 2 02/04/23 17:16 02/04/23 17:31 02/04/23 17:46 Temperature Pulse Rate 84 92 H 97 H Pulse Rate [Monitor] Respiratory Rate 17 19 18 Blood Pressure 128/73 H 135/79 H 104/79 Blood Pressure [Left Arm] Pulse Oximetry 96 97 97 Oxygen Delivery Method Oxygen Delivery Flow Rate 02/04/23 18:00 02/04/23 18:15 02/04/23 18:30 Temperature Pulse Rate 83 95 H 93 H Pulse Rate [Monitor] Respiratory Rate 18 16 19 Blood Pressure 117/77 131/68 H 142/69 H Blood Pressure [Left Arm] Pulse Oximetry 97 98 97 Oxygen Delivery Method Oxygen Delivery Flow Rate 02/04/23 18:46 02/04/23 19:01 02/04/23 19:15 Temperature Pulse Rate 101 H 95 H 93 H Pulse Rate [Monitor] Respiratory Rate 21 21 23 Blood Pressure 131/86 H 134/109 H 116/70 Blood Pressure [Left Arm] Pulse Oximetry 98 94 L Oxygen Delivery Method Oxygen Delivery Flow Rate 02/04/23 19:30 02/04/23 19:45 02/04/23 19:56 Temperature Pulse Rate 95 H 96 H 96 H Pulse Rate [Monitor] Respiratory Rate 17 18 17 Blood Pressure 131/77 H 115/63 90/61 Blood Pressure [Left Arm] Pulse Oximetry 96 96 Oxygen Delivery Method Oxygen Delivery Flow Rate 02/04/23 20:01 02/04/23 20:15 02/04/23 20:30 Temperature Pulse Rate 98 H 97 H 99 H Pulse Rate [Monitor] Respiratory Rate 17 24 20 Blood Pressure 121/61 H 112/58 L 111/65 Blood Pressure [Left Arm] Pulse Oximetry 91 L 90 L 90 L Oxygen Delivery Method Oxygen Delivery Flow Rate 02/04/23 20:45 02/04/23 21:01 02/04/23 21:15 Temperature Pulse Rate 101 H 99 H 99 H Pulse Rate [Monitor] Respiratory Rate 21 22 17 Blood Pressure 124/67 H 134/77 H 148/82 H Blood Pressure [Left Arm] Pulse Oximetry 86 L 94 L 93 L Oxygen Delivery Method Oxygen Delivery Flow Rate 02/04/23 21:30 02/04/23 21:45 02/04/23 22:00 Temperature Pulse Rate 90 80 84 Pulse Rate [Monitor] Respiratory Rate 18 18 19 Blood Pressure 131/85 H 125/71 H 112/64 Blood Pressure [Left Arm] Pulse Oximetry 91 L 91 L 92 L Oxygen Delivery Method Oxygen Delivery Flow Rate 02/04/23 22:15 02/04/23 22:30 02/04/23 22:45 Temperature Pulse Rate 106 H 94 H 95 H Pulse Rate [Monitor] Respiratory Rate 16 18 18 Blood Pressure 129/66 H 145/84 H 121/76 H Blood Pressure [Left Arm] Pulse Oximetry 94 L 92 L Oxygen Delivery Method Oxygen Delivery Flow Rate 02/04/23 23:00 02/04/23 23:07 02/04/23 23:30 Temperature Pulse Rate 94 H 98 H 93 H Pulse Rate [Monitor] Respiratory Rate 24 20 15 Blood Pressure 114/74 134/73 H 122/77 H Blood Pressure [Left Arm] Pulse Oximetry 96 92 L 90 L Oxygen Delivery Method Oxygen Delivery Flow Rate 02/05/23 00:01 02/05/23 00:30 02/05/23 01:00 Temperature Pulse Rate 92 H 80 84 Pulse Rate [Monitor] Respiratory Rate 21 35 H 26 H Blood Pressure 117/67 123/61 H 86/43 L Blood Pressure [Left Arm] Pulse Oximetry 92 L 89 L 95 Oxygen Delivery Method Oxygen Delivery Flow Rate 02/05/23 01:30 02/05/23 02:00 02/05/23 02:50 Temperature Pulse Rate 77 75 97 H Pulse Rate [Monitor] Respiratory Rate 15 15 Blood Pressure 123/70 H 123/70 H Blood Pressure [Left Arm] Pulse Oximetry 97 96 92 L Oxygen Delivery Method Oxygen Delivery Flow Rate 02/05/23 02:00 02/05/23 02:30 02/05/23 03:01 Temperature Pulse Rate 85 70 100 H Pulse Rate [Monitor] Respiratory Rate 15 18 22 Blood Pressure 123/70 H 106/58 L 158/63 H Blood Pressure [Left Arm] Pulse Oximetry 96 89 L 67 L Oxygen Delivery Method Oxygen Delivery Flow Rate 02/05/23 04:00 02/05/23 04:00 02/05/23 06:00 Temperature 97.3 F L Pulse Rate 94 H 71 75 Pulse Rate [Monitor] Respiratory Rate 18 Blood Pressure Blood Pressure [Left Arm] 161/68 H Pulse Oximetry 98 Oxygen Delivery Method Nasal Cannula Oxygen Delivery Flow Rate 2 02/05/23 03:01 02/05/23 03:30 02/05/23 04:00 Temperature Pulse Rate 75 74 91 H Pulse Rate [Monitor] Respiratory Rate 16 15 21 Blood Pressure 158/63 H 136/71 H 130/66 H Blood Pressure [Left Arm] Pulse Oximetry 98 98 96 Oxygen Delivery Method Oxygen Delivery Flow Rate 02/05/23 04:30 02/05/23 05:00 Temperature Pulse Rate 75 75 Pulse Rate [Monitor] Respiratory Rate 15 16 Blood Pressure 161/68 H 132/70 H Blood Pressure [Left Arm] Pulse Oximetry 97 97 Oxygen Delivery Method Oxygen Delivery Flow Rate Chest Common normals: inspection of chest normal Respiratory Common normals: normal respiratory effort, no retractions, no use of accessory muscles and clear to auscultation bilaterally Cardio Common normals: no JVD Rhythm: abnormal rhythm GI Common normals: Normal to inspection, nondistended, normoactive bowel sounds present, soft to palpation and non-tender Extremity Common normals: normal to inspection Neuro [place] Coma Scale: other (Confused about location) Results Labs Labs: Short CBC 02/04/23 Range/Units 09:20 WBC 8.5 (4.0-11.0) 10^3/uL Hgb 11.1 L (14.0-18.0) g/dL Hct 35.4 L (42.0-54.0) % Plt Count 224 (150-450) 10^3/uL BMP 02/04/23 02/05/23 09:20 04:43 Sodium 142 142 Potassium 4.6 3.9 Chloride 106 108 H Carbon Dioxide 28.6 26.9 BUN 49.0 H 42.0 H Creatinine 2.90 H 2.41 H Glucose 113 H 82 Calcium 8.4 L 8.4 L Liver Function 02/04/23 Range/Units 09:20 Total Bilirubin 0.4 (0.2-1.0) mg/dL AST 14 L (15-37) U/L ALT 16 (16-63) U/L Alkaline Phosphatase 86 (46-116) U/L Albumin 2.2 L (3.4-5.0) g/dL Assessment and Plan Assessment and Plan (1) Acute hypotension: (2) Hypotension due to medication: (3) Afib: (4) CHF (congestive heart failure): (5) Hypothyroidism: (6) HTN (hypertension): (7) Peripheral neuropathy: (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 Altered mental status secondary to the above but alsoMay be related to sundowning as well. May need further work-up. His altered mental status is improved but still confused. L Atrial fibrillation-rate controlled, continue with anticoagulation Chronic congestive heart failure-fairly stable currently. No peripheral edema. Continue with current medications Peripheral neuropathy-continue with current medications IDDM-we will continue with insulin sliding scale Chronic kidney disease stage III-he is back to his baseline creatinine around 2.4. Rehabilitation-patient still in need of rehab.We will discuss options with social workers tomorrow. hypoxia at at bedtime-likely sleep apnea-monitor daily Unable to improve completely has altered mental status over the first 24 hours. Likely to be a 2 to 3-day hospital stay with continued medical management, Change patient to inpatient statust
[2023-02-05 13:03] LABS: Glucometer 67 mg/dL (74-106)
[2023-02-05] MEDS: SACUBITRIL/VALSARTAN 1 EACH TABLET 2 TAB PO ×2 (14:37→21:01)
[2023-02-05 16:31] LABS: Glucometer 96 mg/dL (74-106)
[2023-02-05 20:33] LABS: Glucometer 147 mg/dL (74-106)
[2023-02-05] MEDS: ATORVASTATIN CALCIUM 20 MG TABLET PO (21:01)
[2023-02-05] MEDS: FERROUS SULFATE 325 MG TABLET PO (21:01)
[2023-02-05] MEDS: AMITRIPTYLINE HCL 25 MG TABLET PO (21:01)
[2023-02-05] MEDS: HYDROCODONE/ACETAMINOPHEN 5-325 MG TABLET 2 TAB PO (23:17)
[2023-02-05] MEDS: INSULIN ASPART 300 UNIT/3 ML PEN SUBQ (23:20)
[2023-02-06] VITALS (17 sets, daily range): BP systolic 109–184; BP diastolic 56–94; PULSE 69–97; RESP 18–20; TEMP 36.3–36.7; O2SAT 91–94; BMI 30.4
[2023-02-06] MEDS: 0.9 % SODIUM CHLORIDE 1,000 ML 80 ML IV ×2 (04:25→18:18)
[2023-02-06 04:54] LABS: Basophils Percent Auto 0.3 % (0.2-2.0); Eosinophils Absolute Auto 0.4 10^3/uL (0.0-0.7); Hematocrit 32.9 % (42.0-54.0); Hemoglobin 10.2 g/dL (14.0-18.0); Immature Granulocytes Abs Auto 0.02 10^3/uL (0.00-0.03); Immature Granulocytes Pct Auto 0.2 % (0.0-0.5); Lymphocytes Absolute Auto 1.5 10^3/uL (1.2-3.8); Lymphocytes Percent Auto 16.4 % (20.5-60.0); Mean Corpuscular Hemoglobin 30.2 pg (25.9-34.0); Mean Corpuscular Volume 97.3 fL (80.0-94.0); Mean Platelet Volume 9.6 fL (9.5-13.5); Monocytes Absolute Auto 0.8 10^3/uL (0.3-0.8); Monocytes Percent Auto 9.3 % (1.7-12.0); Neutrophils Absolute Auto 6.1 10^3/uL (1.4-6.5); Neutrophils Percent Auto 68.8 % (43.0-75.0); Platelet Count 300 10^3/uL (150-450); Red Blood Count 3.38 10^6/uL (4.70-6.10); Red Cell Distribution Width 14.6 % (11.0-15.0); White Blood Count 8.8 10^3/uL (4.0-11.0)
[2023-02-06 05:05] LABS: Anion Gap 9.4; BUN Creatinine Ratio 15.6; Calcium 8.1 mg/dL (8.5-10.1); Carbon Dioxide 26.9 mmol/L (21.0-32.0); Chloride 110 mmol/L (98-107); Estimated GFR (African America 34 (>=60); Estimated GFR (Non-African Ame 28 (>=60); Glucose 137 mg/dL (74-106); Potassium 4.3 mmol/L (3.5-5.1); Sodium 142 mmol/L (136-145)
[2023-02-06] MEDS: LEVOTHYROXINE SODIUM 25 MCG TABLET 50 MCG PO (06:56)
--- NOTE | 2023-02-06 08:01 | P.PN_ITS ---
Exam Constitutional Vital Signs - 24 hr 02/05/23 08:38 02/05/23 10:00 02/05/23 12:00 Temperature Pulse Rate 76 Pulse Rate [Monitor] 94 H Respiratory Rate 16 Blood Pressure 134/65 H Blood Pressure [Left Arm] Pulse Oximetry Oxygen Delivery Method 02/05/23 12:00 02/05/23 12:00 02/05/23 14:00 Temperature 98.1 F Pulse Rate 78 78 72 Pulse Rate [Monitor] Respiratory Rate 16 Blood Pressure Blood Pressure [Left Arm] 122/86 H Pulse Oximetry 99 Oxygen Delivery Method Room Air 02/05/23 16:17 02/05/23 16:22 02/05/23 18:06 Temperature 98.3 F Pulse Rate 81 81 91 H Pulse Rate [Monitor] Respiratory Rate 18 Blood Pressure Blood Pressure [Left Arm] 144/77 H Pulse Oximetry 97 Oxygen Delivery Method Room Air 02/05/23 20:00 02/05/23 21:02 02/05/23 22:00 Temperature Pulse Rate 89 95 H Pulse Rate [Monitor] 94 H Respiratory Rate 18 16 Blood Pressure Blood Pressure [Left Arm] Pulse Oximetry 92 L Oxygen Delivery Method 02/05/23 22:00 02/06/23 05:00 02/06/23 00:00 Temperature 97.8 F Pulse Rate 74 81 Pulse Rate [Monitor] Respiratory Rate 18 Blood Pressure Blood Pressure [Left Arm] 144/76 H 109/56 L Pulse Oximetry Oxygen Delivery Method Room Air 02/06/23 02:06 02/06/23 03:50 02/06/23 06:06 Temperature Pulse Rate 75 74 70 Pulse Rate [Monitor] Respiratory Rate Blood Pressure Blood Pressure [Left Arm] Pulse Oximetry Oxygen Delivery Method 02/06/23 07:52 Temperature Pulse Rate 85 Pulse Rate [Monitor] Respiratory Rate Blood Pressure Blood Pressure [Left Arm] Pulse Oximetry Oxygen Delivery Method Progress Note: Objective Labs Labs: Short CBC 02/06/23 Range/Units 04:18 WBC 8.8 (4.0-11.0) 10^3/uL Hgb 10.2 L (14.0-18.0) g/dL Hct 32.9 L (42.0-54.0) % Plt Count 300 (150-450) 10^3/uL BMP 02/06/23 04:18 Sodium 142 Potassium 4.3 Chloride 110 H Carbon Dioxide 26.9 BUN 35.0 H Creatinine 2.25 H Glucose 137 H Calcium 8.1 L Progress Note: A&P Assessment and Plan (1) Acute hypotension: (2) Hypotension due to medication: (3) Afib: (4) CHF (congestive heart failure): (5) Hypothyroidism: (6) HTN (hypertension): (7) Peripheral neuropathy: (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 - overall stable Altered mental status secondary to the above but also May be related to sundowning as well.? mental patient is overall improved today Atrial fibrillation-rate controlled, continue with anticoagulation Chronic congestive heart failure-fairly stable currently.? No peripheral edema.? Continue with current medications Peripheral neuropathy-continue with current medications- states increasing burning in lower extremities , will increase dose of amitriptyline IDDM-we will continue with insulin sliding scale, hypoglycemia yesterday we will back off on insulin long-acting Chronic kidney disease stage III-he is back to his baseline creatinine Rehabilitation-patient still in need of rehab.We will discuss options with social workers today hypoxia at at bedtime-likely sleep apnea-monitor daily Unable to improve ?completely has altered mental status over the first 24 hours.? altered mental status is improved but now sugars are fluctuating to the point of significant hypoglycemia, medication will continue to be adjusted, due to diabetic peripheral neuropathy also Exacerbated medications adjusted, physical therapy to work with patient, Unsafe for discharge todaytoday.
[2023-02-06] MEDS: INSULIN DETEMIR 300 UNIT/3 ML INSULN.PEN 40 UNIT SUBQ (09:10)
[2023-02-06] MEDS: BUMETANIDE 1 MG TABLET 2 MG PO (09:12)
[2023-02-06] MEDS: LEVOFLOXACIN 500 MG TABLET PO (09:12)
[2023-02-06] MEDS: ASPIRIN 81 MG TABLET.DR PO (09:13)
[2023-02-06] MEDS: APIXABAN 5 MG TABLET 2.5 MG PO ×2 (09:13→20:07)
[2023-02-06] MEDS: SACUBITRIL/VALSARTAN 1 EACH TABLET 2 TAB PO ×2 (09:19→20:07)
[2023-02-06] MEDS: ISOSORBIDE MONONITRATE 30 MG TAB.ER.24H PO ×2 (09:30→20:06)
--- NOTE | 2023-02-06 10:05 | SWNOTE1 ---
Pt came from [facility] meeting with family at 11:00. SW did get message from doctor and family would like pt to go to [facility] now.
[2023-02-06 11:12] LABS: Glucometer 162 mg/dL (74-106)
[2023-02-06] MEDS: INSULIN ASPART 300 UNIT/3 ML PEN SUBQ (11:12)
--- NOTE | 2023-02-06 11:22 | SWNOTE1 ---
SW met with pt and family. Family and pt did voice they were not happy with care at [facility]. They expressed he did not get food for several hours and also his meds were not given correctly. At this time they would like referral sent to [facility] for him to go to rehab there. They did want to know if he would have a private room? SW did reach out to [facility] at [facility] and he will have a private room. SW let family know. Referral sent to [facility]. Pt is a precert.
[2023-02-06 16:00] LABS: Glucometer 142 mg/dL (74-106)
[2023-02-06] MEDS: ATORVASTATIN CALCIUM 20 MG TABLET PO (20:06)
[2023-02-06] MEDS: FERROUS SULFATE 325 MG TABLET PO (20:07)
[2023-02-06] MEDS: AMITRIPTYLINE HCL 25 MG TABLET 50 MG PO (20:07)
[2023-02-06 20:13] LABS: Glucometer 122 mg/dL (74-106)
[2023-02-06] MEDS: HYDROCODONE/ACETAMINOPHEN 5-325 MG TABLET 2 TAB PO (23:56)
[2023-02-07] VITALS (14 sets, daily range): BP systolic 133–160; BP diastolic 69–78; PULSE 75–113; RESP 18; TEMP 36.5–36.9; O2SAT 95–98
[2023-02-07 04:56] LABS: Anion Gap 8.5; BUN Creatinine Ratio 14.6; Calcium 8.4 mg/dL (8.5-10.1); Carbon Dioxide 25.8 mmol/L (21.0-32.0); Chloride 110 mmol/L (98-107); Estimated GFR (African America 37 (>=60); Estimated GFR (Non-African Ame 30 (>=60); Glucose 107 mg/dL (74-106); Potassium 4.3 mmol/L (3.5-5.1); Sodium 140 mmol/L (136-145)
[2023-02-07] MEDS: LEVOTHYROXINE SODIUM 25 MCG TABLET 50 MCG PO (05:20)
[2023-02-07] MEDS: 0.9 % SODIUM CHLORIDE 1,000 ML 80 ML IV (06:16)
[2023-02-07] MEDS: ISOSORBIDE MONONITRATE 30 MG TAB.ER.24H PO ×2 (09:19→22:25)
[2023-02-07] MEDS: SPIRONOLACTONE 25 MG TABLET 12.5 MG PO (09:19)
[2023-02-07] MEDS: SACUBITRIL/VALSARTAN 1 EACH TABLET 2 TAB PO ×2 (09:19→22:25)
[2023-02-07] MEDS: APIXABAN 5 MG TABLET 2.5 MG PO ×2 (09:19→22:25)
[2023-02-07] MEDS: LEVOFLOXACIN 500 MG TABLET PO (09:19)
[2023-02-07] MEDS: ASPIRIN 81 MG TABLET.DR PO (09:19)
[2023-02-07] MEDS: BUMETANIDE 1 MG TABLET 2 MG PO (09:20)
[2023-02-07] MEDS: INSULIN DETEMIR 300 UNIT/3 ML INSULN.PEN 40 UNIT SUBQ (09:20)
[2023-02-07 11:03] LABS: Glucometer 128 mg/dL (74-106)
--- NOTE | 2023-02-07 11:13 | P.PN_ITS ---
Progress Note: Subjective Subjective Interval history: No new complaints, rob e disorientation at hs - vertigo improved Exam Constitutional Vital Signs - 24 hr 02/06/23 11:49 02/06/23 13:35 02/06/23 14:02 Temperature 97.4 F L Pulse Rate 76 95 H 76 Respiratory Rate 18 Blood Pressure [Left Arm] 123/66 H Pulse Oximetry 91 L Oxygen Delivery Method Room Air 02/06/23 15:51 02/06/23 17:53 02/06/23 19:20 Temperature Pulse Rate 80 93 H Respiratory Rate 18 Blood Pressure [Left Arm] Pulse Oximetry Oxygen Delivery Method 02/06/23 20:01 02/06/23 20:58 02/06/23 22:11 Temperature 98.1 F Pulse Rate 76 74 97 H Respiratory Rate 20 Blood Pressure [Left Arm] 184/94 H Pulse Oximetry 94 L Oxygen Delivery Method Room Air 02/06/23 22:17 02/07/23 01:09 02/07/23 03:56 Temperature Pulse Rate 82 80 Respiratory Rate Blood Pressure [Left Arm] 168/85 H Pulse Oximetry Oxygen Delivery Method 02/07/23 05:08 02/07/23 05:56 02/07/23 07:52 Temperature 97.7 F Pulse Rate 83 75 77 Respiratory Rate 18 Blood Pressure [Left Arm] 133/69 H Pulse Oximetry 95 Oxygen Delivery Method Room Air 02/07/23 09:54 Temperature Pulse Rate 96 H Respiratory Rate Blood Pressure [Left Arm] Pulse Oximetry Oxygen Delivery Method Common normals: no apparent distress and oriented x3 Respiratory Common normals: normal respiratory effort, no retractions, no use of accessory muscles and clear to auscultation bilaterally Cardio Common normals: regular rate and regular rhythm GI Common normals: Normal to inspection, nondistended, normoactive bowel sounds present Progress Note: Objective Labs Labs: [facility] 02/07/23 04:00 Sodium 140 Potassium 4.3 Chloride 110 H Carbon Dioxide 25.8 BUN 31.0 H Creatinine 2.12 H Glucose 107 H Calcium 8.4 L Progress Note: A&P Assessment and Plan (1) Acute hypotension: (2) Hypotension due to medication: (3) Afib: (4) CHF (congestive heart failure): (5) Hypothyroidism: (6) HTN (hypertension): (7) Peripheral neuropathy: (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 - overall stable - BP up at times may need further adjustmenst Altered mental status secondary to the above but also May be related to nolasco ndowning as well.? mental patient is overall improved today - still confused at times - not having any focal weakness - telemetry without mic/tachy Atrial fibrillation-rate controlled, continue with anticoagulation - stable Chronic congestive heart failure-fairly stable currently.? No peripheral edema.? Continue with current medications -0 may need inc in entresto Peripheral neuropathy-continue with current medications- states increasing burning in lower extremities , will increase dose of amitriptyline IDDM-we will continue with insulin sliding scale, hypoglycemia yesterday we will back off on insulin long-acting - sugars better with adjust dose yesterday acute exacerbation of Chronic kidney disease stage III on admission-he is back to his baseline creatinine Rehabilitation-patient still in need of rehab.We will discuss options with social workers today hypoxia at at bedtime-likely sleep apnea-monitor daily Vertigo - nt realated to tachy/mic - not related to AMS - will follow Unable to improve ?completely has altered mental status over the first 24 hours.? altered mental status is improved but now sugars are fluctuating to the point of significant hypoglycemia, medication will continue to be adjusted, due to diabetic peripheral neuropathy also Exacerbated medications adjusted, p hysical therapy to work with patient, Unsafe for discharge todaytoday.
[2023-02-07 16:13] LABS: Glucometer 118 mg/dL (74-106)
[2023-02-07 19:51] LABS: Glucometer 159 mg/dL (74-106)
[2023-02-07] MEDS: FERROUS SULFATE 325 MG TABLET PO (22:24)
[2023-02-07] MEDS: AMITRIPTYLINE HCL 25 MG TABLET 50 MG PO (22:24)
[2023-02-07] MEDS: HYDROCODONE/ACETAMINOPHEN 5-325 MG TABLET 2 TAB PO (22:25)
[2023-02-07] MEDS: ATORVASTATIN CALCIUM 20 MG TABLET PO (22:25)
[2023-02-08] VITALS (7 sets, daily range): BP systolic 123; BP diastolic 71; PULSE 69–81; RESP 18; TEMP 36.4; O2SAT 90
[2023-02-08 04:27] LABS: Basophils Absolute Auto 0.1 10^3/uL (0.0-0.1); Basophils Percent Auto 0.6 % (0.2-2.0); Eosinophils Absolute Auto 0.5 10^3/uL (0.0-0.7); Eosinophils Percent Auto 6.2 % (0.9-7.0); Hemoglobin 9.9 g/dL (14.0-18.0); Immature Granulocytes Abs Auto 0.03 10^3/uL (0.00-0.03); Immature Granulocytes Pct Auto 0.4 % (0.0-0.5); Lymphocytes Absolute Auto 1.6 10^3/uL (1.2-3.8); Lymphocytes Percent Auto 20.8 % (20.5-60.0); Mean Corpuscular HGB Conc 30.9 g/dL (29.9-35.2); Mean Corpuscular Hemoglobin 29.7 pg (25.9-34.0); Mean Corpuscular Volume 96.1 fL (80.0-94.0); Mean Platelet Volume 9.3 fL (9.5-13.5); Monocytes Absolute Auto 0.8 10^3/uL (0.3-0.8); Monocytes Percent Auto 9.7 % (1.7-12.0); Neutrophils Absolute Auto 4.8 10^3/uL (1.4-6.5); Neutrophils Percent Auto 62.3 % (43.0-75.0); Platelet Count 288 10^3/uL (150-450); Red Blood Count 3.33 10^6/uL (4.70-6.10); Red Cell Distribution Width 14.4 % (11.0-15.0); White Blood Count 7.7 10^3/uL (4.0-11.0)
[2023-02-08 04:48] LABS: Alanine Aminotransferase 15 U/L (16-63); Albumin Globulin Ratio 0.6; Albumin Level 2.4 g/dL (3.4-5.0); Alkaline Phosphatase 84 U/L (46-116); Anion Gap 7.8; Aspartate Amino Transferase 13 U/L (15-37); BUN Creatinine Ratio 14.9; Bilirubin Total 0.3 mg/dL (0.2-1.0); Calcium 8.4 mg/dL (8.5-10.1); Carbon Dioxide 28.5 mmol/L (21.0-32.0); Chloride 109 mmol/L (98-107); Estimated GFR (African America 37 (>=60); Estimated GFR (Non-African Ame 31 (>=60); Globulin 3.8 g/dL; Glucose 97 mg/dL (74-106); Potassium 4.3 mmol/L (3.5-5.1); Sodium 141 mmol/L (136-145); Total Protein 6.2 g/dL (6.4-8.2)
[2023-02-08] MEDS: LEVOTHYROXINE SODIUM 25 MCG TABLET 50 MCG PO (06:18)
--- NOTE | 2023-02-08 07:55 | P.PN_ITS ---
Progress Note: Subjective Subjective Interval history: No new complaints, slept well last night Exam Constitutional Vital Signs - 24 hr 02/07/23 09:54 02/07/23 12:34 02/07/23 14:15 Temperature Pulse Rate 96 H 113 H 88 Respiratory Rate Blood Pressure [Left Arm] Blood Pressure [Right Arm] Pulse Oximetry Oxygen Delivery Method 02/07/23 14:49 02/07/23 15:49 02/07/23 18:16 Temperature 98.2 F Pulse Rate 76 77 82 Respiratory Rate 18 Blood Pressure [Left Arm] 139/70 H Blood Pressure [Right Arm] Pulse Oximetry 98 Oxygen Delivery Method Room Air 02/07/23 20:00 02/07/23 20:00 02/07/23 21:07 Temperature 98.4 F Pulse Rate 90 93 H Respiratory Rate 18 18 Blood Pressure [Left Arm] Blood Pressure [Right Arm] 160/78 H Pulse Oximetry 97 Oxygen Delivery Method Room Air 02/07/23 22:00 02/08/23 00:00 02/08/23 02:00 Temperature Pulse Rate 87 77 81 Respiratory Rate Blood Pressure [Left Arm] Blood Pressure [Right Arm] Pulse Oximetry Oxygen Delivery Method 02/08/23 04:00 02/08/23 05:35 02/08/23 06:00 Temperature 97.5 F L Pulse Rate 74 71 69 Respiratory Rate 18 Blood Pressure [Left Arm] 123/71 H Blood Pressure [Right Arm] Pulse Oximetry 90 L Oxygen Delivery Method Room Air [facility] Common normals: normocephalic Respiratory Common normals: normal respiratory effort, no retractions and no use of accessory muscles Cardio Common normals: regular rate and regular rhythm GI Common normals: Normal to inspection, nondistended, normoactive bowel sounds present Extremity Common normals: normal to inspection Progress Note: Objective Labs Labs: Short CBC 02/08/23 Range/Units 04:00 WBC 7.7 (4.0-11.0) 10^3/uL Hgb 9.9 L (14.0-18.0) g/dL Hct 32.0 L (42.0-54.0) % Plt Count 288 (150-450) 10^3/uL BMP 02/08/23 04:00 Sodium 141 Potassium 4.3 Chloride 109 H Carbon Dioxide 28.5 BUN 31.0 H Creatinine 2.08 H Glucose 97 Calcium 8.4 L Liver Function 02/08/23 Range/Units 04:00 Total Bilirubin 0.3 (0.2-1.0) mg/dL AST 13 L (15-37) U/L ALT 15 L (16-63) U/L Alkaline Phosphatase 84 (46-116) U/L Albumin 2.4 L (3.4-5.0) g/dL Progress Note: A&P Assessment and Plan (1) Acute hypotension: (2) Hypotension due to medication: (3) Afib: (4) CHF (congestive heart failure): (5) Hypothyroidism: (6) HTN (hypertension): (7) Peripheral neuropathy: (8) CKD stage 3 due to type 2 diabetes mellitus: (9) 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: (10) Altered mental status: (11) IDDM (insulin dependent diabetes mellitus): Plan Acute hypotension related to medication management-medications were adjusted and blood pressure -has been trending up at times, may be consider increasing Entresto Altered mental status secondary to the above but also May be related to sundowning as well.? seems better today Atrial fibrillation-rate controlled, continue with anticoagulation - stable Chronic congestive heart failure-fairly stable currently.? No peripheral edema.? Continue with current medications --BNP improving p Peripheral neuropathy-continue with current medications- states increasing burning in lower extremities , improving with increased dose of amitriptyline IDDM-we will continue with insulin sliding scale, hypoglycemia yesterday we will back off on insulin long-acting - sugars better with adjust dose yesterday acute exacerbation of Chronic kidney disease stage III on admission-he is back to his baseline creatinine Rehabilitation-patient still in need of rehab.We will discuss options with social workers today hypoxia at at bedtime-likely sleep apnea-monitor daily Vertigo - not realated to tachy/mic - not related to AMS - will follo- improvedw Unable to improve ?completely has altered mental status over the first 24 hours.? altered mental status is improved but now sugars are fluctuating to the point of significant hypoglycemia, medication will continue to be adjusted, due to diabetic peripheral neuropathy also Exacerbated medications adjusted, physical therapy to work with patient, Unsafe for discharge to home today, in need of rehab
[2023-02-08] MEDS: ISOSORBIDE MONONITRATE 30 MG TAB.ER.24H PO (08:23)
[2023-02-08] MEDS: BUMETANIDE 1 MG TABLET 2 MG PO (08:23)
[2023-02-08] MEDS: LEVOFLOXACIN 500 MG TABLET PO (08:23)
[2023-02-08] MEDS: APIXABAN 5 MG TABLET 2.5 MG PO (08:23)
[2023-02-08] MEDS: ASPIRIN 81 MG TABLET.DR PO (08:23)
[2023-02-08] MEDS: SACUBITRIL/VALSARTAN 1 EACH TABLET 2 TAB PO (08:23)
[2023-02-08] MEDS: INSULIN DETEMIR 300 UNIT/3 ML INSULN.PEN 40 UNIT SUBQ (08:24)
--- NOTE | 2023-02-08 09:11 | PM.DS1 ---
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: (10) Altered mental status: (11) IDDM (insulin dependent diabetes mellitus): DS: Summary Hospital Course Hospital Course: Pt admitted with AMS, hypotension, likley medication related - AMS took over 48 hours elise improve despite improvement in BP - also had episode cvertigo - that reslved, Acute on chronic kidney diease - improved at this time - staable to d/ to rehavb Time Spent with Patient Time attestation: Total time spent providing and/or coordinating discharge services: Exam Narrative Exam Narrative: See today prog note Constitutional Vital Signs - 24 hr 02/07/23 09:54 02/07/23 12:34 02/07/23 14:15 Temperature Pulse Rate 96 H 113 H 88 Respiratory Rate Blood Pressure [Left Arm] Blood Pressure [Right Arm] Pulse Oximetry Oxygen Delivery Method 02/07/23 14:49 02/07/23 15:49 02/07/23 18:16 Temperature 98.2 F Pulse Rate 76 77 82 Respiratory Rate 18 Blood Pressure [Left Arm] 139/70 H Blood Pressure [Right Arm] Pulse Oximetry 98 Oxygen Delivery Method Room Air 02/07/23 20:00 02/07/23 20:00 02/07/23 21:07 Temperature 98.4 F Pulse Rate 90 93 H Respiratory Rate 18 18 Blood Pressure [Left Arm] Blood Pressure [Right Arm] 160/78 H Pulse Oximetry 97 Oxygen Delivery Method Room Air 02/07/23 22:00 02/08/23 00:00 02/08/23 02:00 Temperature Pulse Rate 87 77 81 Respiratory Rate Blood Pressure [Left Arm] Blood Pressure [Right Arm] Pulse Oximetry Oxygen Delivery Method 02/08/23 04:00 02/08/23 05:35 02/08/23 06:00 Temperature 97.5 F L Pulse Rate 74 71 69 Respiratory Rate 18 Blood Pressure [Left Arm] 123/71 H Blood Pressure [Right Arm] Pulse Oximetry 90 L Oxygen Delivery Method Room Air 02/08/23 08:07 Temperature Pulse Rate 80 Respiratory Rate Blood Pressure [Left Arm] Blood Pressure [Right Arm] Pulse Oximetry Oxygen Delivery Method DS: Data Data Completed and Pending Labs on day of discharge: Labs from last 24 hours 02/08/23 02/07/23 02/07/23 04:00 19:50 16:12 WBC 7.7 RBC 3.33 L Hgb 9.9 L Hct 32.0 L MCV 96.1 H MCH 29.7 MCHC 30.9 RDW 14.4 Plt Count 288 MPV 9.3 L Neut % (Auto) 62.3 Lymph % (Auto) 20.8 [place] % (Auto) 9.7 Eos % (Auto) 6.2 Baso % (Auto) 0.6 Neut # (Auto) 4.8 Lymph # (Auto) 1.6 [place] # (Auto) 0.8 Eos # (Auto) 0.5 Baso # (Auto) 0.1 Abs Immat Gran (auto) 0.03 Imm/Tot Granulo (auto) 0.4 Sodium 141 Potassium 4.3 Chloride 109 H Carbon Dioxide 28.5 Anion Gap 7.8 BUN 31.0 H Creatinine 2.08 H Est GFR ( Amer) 37 L Est GFR (Non-Af Amer) 31 L BUN/Creatinine Ratio 14.9 Glucose 97 Calcium 8.4 L Total Bilirubin 0.3 AST 13 L ALT 15 L Alkaline Phosphatase 84 NT-Pro-B Natriuret Pep 3956.0 H* Total Protein 6.2 L Albumin 2.4 L Globulin 3.8 Albumin/Globulin Ratio 0.6 POC Glucose 159 H 118 H 02/07/23 11:02 WBC RBC Hgb Hct MCV MCH MCHC RDW Plt Count MPV Neut % (Auto) Lymph % (Auto) [place] % (Auto) Eos % (Auto) Baso % (Auto) Neut # (Auto) Lymph # (Auto) [place] # (Auto) Eos # (Auto) Baso # (Auto) Abs Immat Gran (auto) Imm/Tot Granulo (auto) Sodium Potassium Chloride Carbon Dioxide Anion Gap BUN Creatinine Est GFR ( Amer) Est GFR (Non-Af Amer) BUN/Creatinine Ratio Glucose Calcium Total Bilirubin AST ALT Alkaline Phosphatase NT-Pro-B Natriuret Pep Total Protein Albumin Globulin Albumin/Globulin Ratio POC Glucose 128 H Preliminary micro results at discharge 02/04/23 09:20 Blood Culture Result 1 - Preliminary Blood NO GROWTH AT 36-48 HOURS. FINAL TO FOLLOW. 02/04/23 09:36 - Preliminary Blood NO GROWTH AT 36-48 HOURS. FINAL TO FOLLOW. Discharge Plan Discharge Disposition: Xfer SNF Discharge Medications: New atorvastatin 20 mg Tablet 20 mg PO QPM@2100 Qty: 30 0RF hydrocodone-acetaminophen 5-325 mg Tablet 1 tab PO Q8H PRN (Reason: pain) Qty: 90 0RF isosorbide mononitrate 30 mg Tablet Extended Release 24 Hr 30 mg PO BID Qty: 60 0RF aspirin 81 mg Tablet,Delayed Release (Dr/Ec) 81 mg PO DAILY Qty: 60 0RF acetaminophen [Tylenol Extra Strength] 500 mg Tablet 1,000 mg PO Q6H PRN (Reason: Pain -Mild) Qty: 10 0RF amitriptyline 25 mg Tablet 50 mg PO HS@2100 Qty: 60 0RF ferrous sulfate 325 mg (65 mg iron) Tablet 325 mg PO QPM@2100 Qty: 60 0RF bumetanide 1 mg Tablet 2 mg PO DAILY Qty: 60 0RF insulin aspart U-100 [Novolog FlexPen U-100 Insulin] 100 unit/mL (3 mL) Insulin Pen 2 - 14 unit subcut ACHS Qty: 15 0RF Eliquis 5 mg Tablet 2.5 mg PO BID Qty: 60 0RF Continued amitriptyline 25 mg tablet 25 mg PO .QHS atorvastatin 20 mg tablet 20 mg PO .evening bumetanide 2 mg tablet 2 mg PO DAILY ferrous sulfate [FeroSul] 325 mg (65 mg iron) tablet 325 mg PO .evening levothyroxine 50 mcg tablet 50 mcg PO QAM Entresto 49-51 mg tablet 1 tab PO BID aspirin [Adult Aspirin Regimen] 81 mg tablet,delayed release (DR/EC) 81 mg PO DAILY Hold Instructions: Doctor's Order Eliquis 5 mg Tablet 2.5 mg PO BID Qty: 60 0RF spironolactone 25 mg tablet 12.5 mg PO Q48H Qty: 0 0RF hydrocodone-acetaminophen 5-325 mg tablet 2 tab PO Q8H PRN (Reason: pain) Patient Comments: QTY: 20, 6 day supply. filled 01/28/23 Changed insulin glargine [Lantus Solostar U-100 Insulin] 100 unit/mL (3 mL) insulin pen 40 unit SUBCUT QDAY Qty: 0 0RF Patient Comments: Pt states he only takes insulin once a day in the morning Discontinued carvedilol 25 mg tablet 25 mg PO Q12H hydralazine 50 mg tablet 50 mg PO Q12H Hold Instructions: Order Change Patient Comments: not taking per son isosorbide mononitrate 60 mg tablet extended release 24 hr 30 mg PO BID doxazosin 4 mg tablet 8 mg PO DAILY Patient Comments: Per pts son, med was not being taken prior to admission Forms: Portal Instructions
--- NOTE | 2023-02-08 10:29 | REH.PTDLY ---
Physical Therapy Daily Note PT Daily Note/Assess Start: 02/08/23 10:25 Freq: Status: Active Protocol: Document 02/08/23 10:25 MARY (Rec: 02/08/23 10:29 MARY [id number]) Physical Therapy Daily Note/Assessment Time In 10:00 Time Out 10:09 Pain Level 0 Pain Level 0 Subjective Pt reports feeling much better , just walked to the bathroom and back. Now sitting up in chair. Going to [facility] today per pt. Therapeutic Exercise Minutes (minutes) 5 Therapeutic Exercise Units 1 Therapeutic Exercise Treatment Instructed in B LE seated exs progressing to 15x ea for improved strength for ease of transfers and gait. Exs included HR, LAQ, marching, hip abd, hip add. Therapeutic Activity Minutes (minutes) 4 Therapeutic Activity Units 0 Chair Transfer Ability Minimum Assist,Moderate Assist Therapeutic Activity Comments Pt required Min A to stand up from chair, cues for pt to push off from arm of chair and not pull with RW. Pt reports knees feel weak, cues to weight shift s-s with pt reporting he feels steady. Gait training with RW 25 feet CGA for safety with no instances of knees buckling. Pt returns to chair with cues for pt to reach back for chair with hands. Total Therapy Minutes 9 Total Physical Therapy Units 1 Daily Note Summary Progressed reps with seated exs. Pt has improved strength with gait, still only able to do short distances but last week pt was not able to ambulate when he was admitted in hospital.
--- NOTE | 2023-02-08 10:37 | SWNOTE1 ---
Pt is approved to go to [facility] skilled. SW did receive call from the patient and he needs to use trips. SW to set up. SW sent discharge orders to [facility].
--- NOTE | 2023-02-08 10:39 | SWNOTE1 ---
SW set up trips for 12. SW notified nursing, pt, family, and BCC. Packet is updated and SW completed HENS.
== END 2023-02-08 12:07 | DRG 918 ==
LOC: ER 12:31 → ICU 13:12 → MS 02-06 11:02 → ICU 02-06 11:09 → MS 02-06 11:10
PROVIDERS: Family Medicine; Admitting Provider Family Medicine; Emergency Provider Emergency Medicine; PCP Family Medicine; Visit Provider Family Medicine
DX: T44.6X1A Poisoning by alpha-adrenoreceptor antagonists, accidental (unintentional), initial encounter (principal); T46.3X1A Poisoning by coronary vasodilators, accidental (unintentional), initial encounter; T46.5X1A Poisoning by other antihypertensive drugs, accidental (unintentional), initial encounter; I95.2 Hypotension due to drugs; I13.0 Hypertensive heart and chronic kidney disease with heart failure and stage 1 through stage 4 chronic kidney disease, or unspecified chronic kidney disease; N17.9 Acute kidney failure, unspecified; I48.91 Unspecified atrial fibrillation; E11.22 Type 2 diabetes mellitus with diabetic chronic kidney disease; N18.30 Chronic kidney disease, stage 3 unspecified; I50.9 Heart failure, unspecified; E03.9 Hypothyroidism, unspecified; E11.43 Type 2 diabetes mellitus with diabetic autonomic (poly)neuropathy; D63.1 Anemia in chronic kidney disease; R41.82 Altered mental status, unspecified; R42 Dizziness and giddiness; Z79.82 Long term (current) use of aspirin; Z79.4 Long term (current) use of insulin; Z79.890 Hormone replacement therapy; Z79.899 Other long term (current) drug therapy; Z79.01 Long term (current) use of anticoagulants; Z83.3 Family history of diabetes mellitus
CPT/HCPCS: 36415; 70450; 80048; 80053; 81003; 82009; 82140; 82948; 83605; 83880; 84484; 85025; 87040; 93005; 96360; 96361; 97110; 97161; 97165; 99285; G0378

== ENCOUNTER 2023-04-30 13:46 | Observation (INO) | payer MEDICARE, SELFPAY ==
[2023-04-30] VITALS (29 sets, daily range): BP systolic 110–176; BP diastolic 74–98; PULSE 72–102; RESP 12–25; TEMP 36.8–37.2; O2SAT 72–98; BMI 29.6
--- NOTE | 2023-04-30 13:56 | XR_ITS ---
The [place] [address] Patient Name: JAJA FRANKLIN MRN: [id number] date: 1940 Sex: M Assigned Patient Location: ER Current Patient Location: ER Accession/Order Number: [id number] Exam Date: 04/30/2023 14:32 Report Date: 04/30/2023 15:22 At the request of: SHAMAR ROJO Procedure: XR knee LT 3V EXAM: XR knee LT 3V TECHNIQUE: AP lateral and oblique views left knee HISTORY: fall COMPARISON: None. FINDINGS: No acute fracture or dislocation. There are degenerative changes throughout the knee, most significant involving the patellofemoral joint. Large knee joint effusion. XR/XR knee LT 3V IMPRESSION: No fracture Electronically authenticated by: YVETTE RAVI Date: 04/30/2023 15:22
--- NOTE | 2023-04-30 13:56 | XR_ITS ---
The [address] [address] Patient Name: JAJA FRANKLIN MRN: [id number] date: 1940 Sex: M Assigned Patient Location: ER Current Patient Location: ER Accession/Order Number: [id number] Exam Date: 04/30/2023 14:32 Report Date: 04/30/2023 15:20 At the request of: SHAMAR ROJO Procedure: XR chest 1V EXAM: XR chest 1V TECHNIQUE: Single AP view chest HISTORY: weak COMPARISON: 01/30/2023 FINDINGS: The heart and mediastinum are unremarkable. The lung cardoso are clear of any acute infiltrate, effusion or mass. No acute bony abnormality. Evaluation is limited by low lung volumes and mild patient rotation. Prior sternotomy. XR/XR chest 1V IMPRESSION: No acute pulmonary disease. Electronically authenticated by: YVETTE RAVI Date: 04/30/2023 15:20
--- NOTE | 2023-04-30 13:56 | XR_ITS ---
The [address] [address] Patient Name: JAJA FRANKLIN MRN: [id number] date: 1940 Sex: M Assigned Patient Location: ER Current Patient Location: ER Accession/Order Number: [id number] Exam Date: 04/30/2023 14:32 Report Date: 04/30/2023 15:23 At the request of: SHAMAR ROJO Procedure: XR hip LT min 2V IMAGES REVIEWED: XR hip LT min 2V COMPARISON: 01/30/2023. CLINICAL INDICATION: fall FINDINGS/IMPRESSION: 1. No radiographic evidence of acute osseous abnormality of the left hip. 2. Moderate osteoarthritis of the left hip. Electronically authenticated by: RUSSEL CALERO Date: 04/30/2023 15:23
--- NOTE | 2023-04-30 13:56 | ECG_ITS ---
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1940 Requested By: DERRICK AYALA Order Number: [id number] Reading MD: DERRICK AYALA Measurements Intervals [place] Rate: 95 P: 69 MS: 316 QRS: 7 QRSD: 84 T: 240 QT: 364 QTc: 416 Interpretive Statements 1100 Sinus rhythm 2231 First degree AV block 4564 Twave abnormality, possible lateral ischemia 4664 Twave abnormality, possible inferior ischemia 6220 Possible left atrial enlargement 9150 abnormal ECG Compared to ECG 02/04/2023 09:11:23 First degree AV block now present Atrial fibrillation no longer present Possible ischemia still present Electronically Signed On 05-01-2023 7:17:01 EDT by DERRICK AYALA
--- NOTE | 2023-04-30 13:57 | ED.GENADUL1 ---
HPI - General Adult General Chief complaint: Weakness Stated complaint: LOWER EXTREMIT INJURY/FALL Time Seen by Provider: 04/30/23 13:48 History of Present Illness HPI narrative: 83-year-old male presents for weakness and pain to his left lateral thigh area. Two days ago he fell because his blood sugar dropped. His son accompanies him. The patient lives by himself. The patient's son reports that this happens every several months and the patient usually ends up being admitted and put into a rehab facility for a few weeks. The patient didn't hit his head and hasn't had a fever. He doesn't complain of abdominal pain or chest pain or shortness of breath. Related Data Home Medications Medication Instructions Recorded Confirmed atorvastatin 20 mg tablet 20 mg PO .evening 01/28/23 04/30/23 bumetanide 2 mg tablet 2 mg PO DAILY 01/28/23 04/30/23 ferrous sulfate 325 mg (65 mg 325 mg PO .evening 01/28/23 04/30/23 iron) tablet (FeroSul) levothyroxine 50 mcg tablet 50 mcg PO QAM 01/28/23 04/30/23 aspirin 81 mg tablet,delayed 81 mg PO DAILY 01/30/23 04/30/23 release (Adult Aspirin Regimen) sacubitril 49 mg-valsartan 51 mg 1 tab PO BID 01/30/23 04/30/23 tablet (Entresto) amitriptyline 50 mg tablet 50 mg PO BEDTIME 04/30/23 04/30/23 spironolactone 25 mg tablet 12.5 mg PO DAILY 04/30/23 04/30/23 Previous Rx's Medication Instructions Recorded apixaban 5 mg tablet (Eliquis) 2.5 mg PO BID #60 tabs 02/02/23 acetaminophen 500 mg tablet 1,000 mg PO Q6H PRN Pain -Mild #10 02/08/23 (Tylenol Extra Strength) tabs apixaban 5 mg tablet (Eliquis) 2.5 mg PO BID #60 tabs 02/08/23 aspirin 81 mg tablet,delayed 81 mg PO DAILY #60 tabs 02/08/23 release atorvastatin 20 mg tablet 20 mg PO QPM@2100 #30 tabs 02/08/23 bumetanide 1 mg tablet 2 mg PO DAILY #60 tabs 02/08/23 ferrous sulfate 325 mg (65 mg 325 mg PO QPM@2100 #60 tabs 02/08/23 iron) tablet insulin aspart U-100 100 unit/mL 2 - 14 unit (0.02 - 0.14 mL) 02/08/23 (3 mL) subcutaneous pen (Novolog subcut ACHS #15 mL FlexPen U-100 Insulin aspart) insulin glargine 100 unit/mL (3 40 unit (0.4 mL) subcut QDAY #0 mL 02/08/23 mL) subcutaneous pen (Lantus Solostar U-100 Insulin) isosorbide mononitrate 30 mg 30 mg PO BID #60 tabs 02/08/23 tablet,extended release 24 hr Allergies Allergy/AdvReac Type Severity Reaction Status Date / Time No Known Drug Allergies Allergy Verified 01/28/23 08:40 Review of Systems ROS Narrative A ten point review of systems is negative except as noted above. [facility] Medical History (Updated 04/30/23 @ 15:59 by Darron Tim MD) Family History (Updated 01/30/23 @ 22:16 by Shabana Bob) Other Family history of diabetes mellitus Social History (Updated 01/30/23 @ 22:18 by Shabana Bob) Smoking status: Former smoker Non-prescribed substance use: denies use Highest level of school completed/degree received: high school graduate Are you now , , , , never or living with a partner: In a typical week, how many times do you talk on the telephone with family, friends, or neighbors: 3 or more times per week How often do you get together with friends or relatives: twice per week How often do you attend roman catholic or mormonism services: 1-3 times per year Do you belong to any clubs or organizations such as roman catholic groups unions, fraternal or athletic groups, or school groups: no Total score: 1 Score interpretation: A score of less than or equal to 1 indicates the most socially isolated. Little interest or pleasure in doing things: several days Feeling down, depressed, or hopeless: several days Feel stressed/tense/nervous/anxious/difficulty sleeping: not at all Life stressors: recent of family or friend Do you think of yourself as: straight/heterosexual Gender Identity: male Exam Narrative Exam Narrative: Nurses note and vital signs reviewed and patient is not hypoxic. General: The patient appears in no apparent distress. Patient is resting on cart. Skin: Warm, dry, no pallor noted. There is no rash noted. Head: Normocephalic, atraumatic Eye: Normal conjunctiva, no drainage Ears, Nose, Mouth, and Throat: oral mucosa is moist. Nares patent. Mouth without vesicles. Ear canals patent. Tm's without Erythema Cardiovascular: Regular Rate and Rhythm Respiratory: Patient is in no distress, no accessory muscle use, lungs are clear to auscultation, no wheezing, rales or rhonchi Back: non-tender musculoskeletal: he has some tenderness on the lateral aspect of his left thigh. No bruise or abrasion GI: obese, no tenderness to palpation, no masses appreciated. No rebound, guarding, or rigidity noted. Musculoskeletal: The patient has no evidence of calf tenderness, no pitting edema, symmetrical pulses noted bilaterally Neurological: A&O, normal speech Psychiatric: Cooperative Constitutional Vital Signs, click to edit/add: Last Vital Signs Temp 98.3 F 04/30/23 14:38 Pulse 81 04/30/23 15:50 Resp 15 04/30/23 15:50 BP 136/93 H 04/30/23 15:30 Pulse Ox 94 L 04/30/23 15:50 O2 Del Method Room Air 04/30/23 13:54 Course Vital Signs Vital signs: Vital Signs Pulse Rate 101 H 04/30/23 13:54 Respiratory Rate 25 H 04/30/23 13:54 Blood Pressure 153/93 H 04/30/23 13:54 Pulse Oximetry 98 04/30/23 13:54 Oxygen Delivery Method Room Air 04/30/23 13:54 Temperature 98.3 F 04/30/23 14:38 Pulse Rate 81 04/30/23 15:50 Respiratory Rate 15 04/30/23 15:50 Blood Pressure 136/93 H 04/30/23 15:30 Pulse Oximetry 94 L 04/30/23 15:50 Oxygen Delivery Method Room Air 04/30/23 13:54 Medical Decision Making MDM Narrative Medical decision making narrative: knee effusion is identified and his BUN/creatinine are slightly elevated above baseline. He was given IV fluids. He is being admitted and will possibly need ECF placement. Findings are discussed with the patient and his son. Differential Diagnosis Differential Diagnosis: hip fracture, knee fracture, acute kidney injury, anemia, uti Lab Data Lab results reviewed: Yes I reviewed the patient's lab results Labs: Lab Results 04/30/23 04/30/23 04/30/23 Range/Units 14:12 14:18 14:59 WBC 9.3 (4.0-11.0) 10^3/uL RBC 4.01 L (4.70-6.10) 10^6/uL Hgb 12.5 L (14.0-18.0) g/dL Hct 39.7 L (42.0-54.0) % MCV 99.0 H (80.0-94.0) fL MCH 31.2 (25.9-34.0) pg MCHC 31.5 (29.9-35.2) g/dL RDW 13.7 (11.0-15.0) % Plt Count 215 (150-450) 10^3/uL MPV 10.5 (9.5-13.5) fL Neut % (Auto) 68.0 (43.0-75.0) % Lymph % (Auto) 15.0 L (20.5-60.0) % [place] % (Auto) 13.9 H (1.7-12.0) % Eos % (Auto) 2.6 (0.9-7.0) % Baso % (Auto) 0.3 (0.2-2.0) % Neut # (Auto) 6.3 (1.4-6.5) 10^3/uL Lymph # (Auto) 1.4 (1.2-3.8) 10^3/uL [place] # (Auto) 1.3 H (0.3-0.8) 10^3/uL Eos # (Auto) 0.2 (0.0-0.7) 10^3/uL Baso # (Auto) 0.0 (0.0-0.1) 10^3/uL Abs Immat Gran (auto) 0.02 (0.00-0.03) 10^3/uL Imm/Tot Granulo (auto) 0.2 (0.0-0.5) % Sodium 140 (136-145) mmol/L Potassium 4.2 (3.5-5.1) mmol/L Chloride 102 (98-107) mmol/L Carbon Dioxide 32.3 H (21.0-32.0) mmol/L Anion Gap 9.9 BUN 44.0 H (7.0-18.0) mg/dL Creatinine 2.64 H (0.70-1.30) mg/dL Est GFR ( Amer) 28 L (>=60) Est GFR (Non-Af Amer) 23 L (>=60) BUN/Creatinine Ratio 16.7 Glucose 111 H (74-106) mg/dL Calcium 8.9 (8.5-10.1) mg/dL Troponin I High Sens 11.8 (4.0-76.1) pg/mL Urine Color Lt. yellow (YELLOW) Urine Clarity Clear (CLEAR) Urine pH 6.0 (5.0-9.0) Ur Specific [place] 1.015 (1.005-1.025) Urine Protein Trace (NEG/TRACE) mg/dL Urine Glucose (UA) Negative (NEGATIVE) mg/dL Urine Ketones Negative (NEGATIVE) mg/dL Urine Occult Blood Trace-i (NEGATIVE) Urine Nitrite Negative (NEGATIVE) Urine Bilirubin Negative (NEGATIVE) Urine Urobilinogen 0.2 (0.2-1.0) EU/dL Ur Leukocyte Esterase Negative (NEGATIVE) Urine RBC None seen (0-2) #/HPF Urine WBC None seen (NONE SEEN) #/HPF Ur Squamous Epith Cells Rare (NONE/RARE) #/LPF Urine Crystals None seen (None Seen) #/HPF Urine Bacteria None seen (NONE SEEN) #/HPF Urine Casts None seen (NONE SEEN) #/LPF Urine Mucus None seen (NONE SEEN) Ur Culture Indicated? No POC Glucose 109 H (74-106) mg/dL Imaging Data left knee, left hip, chest x-ray: Radiologist's impression: Procedure: XR knee LT 3V EXAM: XR knee LT 3V TECHNIQUE: AP lateral and oblique views left knee HISTORY: fall COMPARISON: None. FINDINGS: No acute fracture or dislocation. There are degenerative changes throughout the knee, most significant involving the patellofemoral joint. Large knee joint effusion. IMPRESSION: No fracture Electronically authenticated by: YVETTE RAVI Date: 04/30/2023 15:22 Procedure: XR hip LT min 2V IMAGES REVIEWED: XR hip LT min 2V COMPARISON: 01/30/2023. CLINICAL INDICATION: fall FINDINGS/IMPRESSION: 1. No radiographic evidence of acute osseous abnormality of the left hip. 2. Moderate osteoarthritis of the left hip. Electronically authenticated by: RUSSEL CALERO Procedure: XR chest 1V EXAM: XR chest 1V TECHNIQUE: Single AP view chest HISTORY: weak COMPARISON: 01/30/2023 FINDINGS: The heart and mediastinum are unremarkable. The lung cardoso are clear of any acute infiltrate, effusion or mass. No acute bony abnormality. Evaluation is limited by low lung volumes and mild patient rotation. Prior sternotomy. IMPRESSION: No acute pulmonary disease. Electronically authenticated by: YVETTE RAVI Date: 04/30/2023 ECG Data Attestation: I personally reviewed and interpreted this ECG as follows: (EKG on my interpretation shows sinus rhythm with rate of 95) Discharge Plan Discharge Chief Complaint: Weakness Clinical Impression: Generalized weakness, Fall Patient Disposition: Admitted as Observation Time of Disposition Decision: 15:59 Condition: Good
[2023-04-30 14:19] LABS: Glucometer 109 mg/dL (74-106)
[2023-04-30 14:33] LABS: Basophils Percent Auto 0.3 % (0.2-2.0); Eosinophils Absolute Auto 0.2 10^3/uL (0.0-0.7); Eosinophils Percent Auto 2.6 % (0.9-7.0); Hematocrit 39.7 % (42.0-54.0); Hemoglobin 12.5 g/dL (14.0-18.0); Immature Granulocytes Abs Auto 0.02 10^3/uL (0.00-0.03); Immature Granulocytes Pct Auto 0.2 % (0.0-0.5); Lymphocytes Absolute Auto 1.4 10^3/uL (1.2-3.8); Mean Corpuscular HGB Conc 31.5 g/dL (29.9-35.2); Mean Corpuscular Hemoglobin 31.2 pg (25.9-34.0); Mean Platelet Volume 10.5 fL (9.5-13.5); Monocytes Absolute Auto 1.3 10^3/uL (0.3-0.8); Monocytes Percent Auto 13.9 % (1.7-12.0); Neutrophils Absolute Auto 6.3 10^3/uL (1.4-6.5); Platelet Count 215 10^3/uL (150-450); Red Blood Count 4.01 10^6/uL (4.70-6.10); Red Cell Distribution Width 13.7 % (11.0-15.0); White Blood Count 9.3 10^3/uL (4.0-11.0)
[2023-04-30 14:49] LABS: Anion Gap 9.9; BUN Creatinine Ratio 16.7; Calcium 8.9 mg/dL (8.5-10.1); Carbon Dioxide 32.3 mmol/L (21.0-32.0); Chloride 102 mmol/L (98-107); Estimated GFR (African America 28 (>=60); Estimated GFR (Non-African Ame 23 (>=60); Glucose 111 mg/dL (74-106); Potassium 4.2 mmol/L (3.5-5.1); Sodium 140 mmol/L (136-145); Troponin I High Sensitivity 11.8 pg/mL (4.0-76.1)
[2023-04-30 15:09] LABS: Bilirubin Urine NEGATIVE (NEGATIVE); Blood Urine TRACE-I (NEGATIVE); Clarity Urine CLEAR (CLEAR); Color Urine LT. YELLOW (YELLOW); Glucose Urine UA NEGATIVE (NEGATIVE); Ketones Urine NEGATIVE (NEGATIVE); Leukocyte Esterase Urine NEGATIVE (NEGATIVE); Nitrite Urine NEGATIVE (NEGATIVE); Protein Urine TRACE mg/dL (NEG/TRACE); Specific Gravity Urine 1.015 (1.005-1.025); Urobilinogen Urine 0.2 EU/dL (0.2-1.0)
[2023-04-30 15:15] LABS: Bacteria Urine NONE SEEN #/HPF (NONE SEEN); Cast Seen? NONE SEEN #/LPF (NONE SEEN); Crystals Seen? None Seen #/HPF (None Seen); Mucus Urine NONE SEEN (NONE SEEN); RBC Urine NONE SEEN #/HPF (0-2); Squamous Epithelial Cell Urine RARE #/LPF (NONE/RARE); Urine Culture Indicated NO; WBC Urine NONE SEEN #/HPF (NONE SEEN)
[2023-04-30] MEDS: 0.9 % SODIUM CHLORIDE 1,000 ML 75 ML IV (15:27)
--- NOTE | 2023-04-30 17:15 | PM.HP ---
H&P: HPI History of Present Illness Chief complaint: LOWER EXTREMIT INJURY/FALL Narrative: patient is an 83-year-old male with past medical history of type 2 diabetes insulin-dependent, chronic kidney disease stage III,hyperlipidemia, congestive heart failure, iron deficiency anemia and hypertension. He presents with a several day history of increased weakness. He reports it's been difficult for him to ambulate. He has had several admissions over the last six months for similar issues. He has chronic kidney disease. His kidney function has been elevated today above normal baseline. He also had a fall and hit his left knee. X-ray showed a joint effusion and some arthritis. Looking back at previous labs from previous hospitalizations he has had an elevated uric acid. This could be a traumatic effusion versus active gout. There has been no lower extremity edema all other labs are essentially unremarkable. Patient was admitted for further workup of his weakness and his knee effusion. Also mentioned he got weak today due to hypoglycemic episode of sugar 48. Review of Systems ROS Narrative ROS: a complete review of systems were reviewed with patient and are positive as below or listed in History of Chief Complaint. General: no fever, chills, night sweats Head: no headache, trauma, visual changes, nausea or vomiting Skin: no reported rashes, itching or sores Eyes: no blurriness of vision Ears: no reported hearing loss, vertigo, earache, or tinnitus Throat: no sore throat, hoarseness, swelling of neck, or tongue pain Heart: no chest pain Lungs: no shortness of breath or cough GI: no diarrhea or vomiting/nausea Urinary: no urinary urgency, frequency or pain Neuro: no numbness or tingling HEM: no bleeding issues or bruising ENDO: thyroid problems Psych: no anxiety or depression [facility] Medical History (Updated 04/30/23 @ 17:21 by Emily Gabriel DO) Family History Other Family history of diabetes mellitus Social History Smoking status: Former smoker Non-prescribed substance use: denies use Highest level of school completed/degree received: high school graduate Are you now , , , , never or living with a partner: In a typical week, how many times do you talk on the telephone with family, friends, or neighbors: 3 or more times per week How often do you get together with friends or relatives: twice per week How often do you attend spiritism or restorationist services: 1-3 times per year Do you belong to any clubs or organizations such as spiritism groups unions, fraternal or athletic groups, or school groups: no Total score: 1 Score interpretation: A score of less than or equal to 1 indicates the most socially isolated. Little interest or pleasure in doing things: several days Feeling down, depressed, or hopeless: several days Feel stressed/tense/nervous/anxious/difficulty sleeping: not at all Life stressors: recent of family or friend Do you think of yourself as: straight/heterosexual Gender Identity: male Meds Home Medications and Allergies Home Medications Medication Instructions Recorded Confirmed Type atorvastatin 20 mg tablet 20 mg PO .evening 01/28/23 04/30/23 History bumetanide 2 mg tablet 2 mg PO DAILY 01/28/23 04/30/23 History ferrous sulfate 325 mg (65 mg 325 mg PO .evening 01/28/23 04/30/23 History iron) tablet (FeroSul) levothyroxine 50 mcg tablet 50 mcg PO QAM 01/28/23 04/30/23 History aspirin 81 mg tablet,delayed 81 mg PO DAILY 01/30/23 04/30/23 History release (Adult Aspirin Regimen) sacubitril 49 mg-valsartan 51 mg 1 tab PO BID 01/30/23 04/30/23 History tablet (Entresto) apixaban 5 mg tablet (Eliquis) 2.5 mg PO BID #60 tabs 02/02/23 04/30/23 Rx acetaminophen 500 mg tablet 1,000 mg PO Q6H PRN Pain -Mild #10 02/08/23 04/30/23 Rx (Tylenol Extra Strength) tabs apixaban 5 mg tablet (Eliquis) 2.5 mg PO BID #60 tabs 02/08/23 04/30/23 Rx aspirin 81 mg tablet,delayed 81 mg PO DAILY #60 tabs 02/08/23 04/30/23 Rx release atorvastatin 20 mg tablet 20 mg PO QPM@2100 #30 tabs 02/08/23 04/30/23 Rx bumetanide 1 mg tablet 2 mg PO DAILY #60 tabs 02/08/23 04/30/23 Rx ferrous sulfate 325 mg (65 mg 325 mg PO QPM@2100 #60 tabs 02/08/23 04/30/23 Rx iron) tablet insulin aspart U-100 100 unit/mL 2 - 14 unit (0.02 - 0.14 mL) 02/08/23 04/30/23 Rx (3 mL) subcutaneous pen (Novolog subcut ACHS #15 mL FlexPen U-100 Insulin aspart) insulin glargine 100 unit/mL (3 40 unit (0.4 mL) subcut QDAY #0 mL 02/08/23 04/30/23 Rx mL) subcutaneous pen (Lantus Solostar U-100 Insulin) isosorbide mononitrate 30 mg 30 mg PO BID #60 tabs 02/08/23 04/30/23 Rx tablet,extended release 24 hr amitriptyline 25 mg tablet mg 04/30/23 History amitriptyline 50 mg tablet 50 mg PO BEDTIME 04/30/23 04/30/23 History carvedilol 25 mg tablet mg 04/30/23 History spironolactone 25 mg tablet 12.5 mg PO DAILY 04/30/23 04/30/23 History Allergies Allergy/AdvReac Type Severity Reaction Status Date / Time No Known Drug Allergies Allergy Verified 01/28/23 08:40 Exam Narrative Exam Narrative: General: Patient is alert, and oriented to person, place and time with normal affect, proper hygiene Skin: no visible rashes, or ulcers Head: atraumatic, acephalic Eyes: PERRLA, no nystagmus present, conjunctiva clear, no scleral icterus Ears: normal Tympanic Membrane, normal gross auditory acuity Nose: symmetric, no discharge, no maxillary or frontal sinus tenderness Mouth/Throat: no erythema, exudate, or tonsillar enlargement, normal dentition Neck: no masses palpated, normal thyroid, no JVD or audible carotid bruits Heart: Normal rate and rhythm, no murmurs/rubs/gallops Lungs: no audible wheezes, crackles and normal breath sounds all lung cardoso Abdomen: Normal audible bowel sounds, no distension, No palpable masses, no organomegaly, no rebound/guarding/ or rigidity Musculoskeletal: muscle atrophy noted, ROM is limited due to being in hospital bed, no swelling bilateral lower extremities Vascular: Normal carotid, radial, femoral, posterior tibial, and dorsalis pedis pulses Lymph: no supraclavicular, axillary, or anterior/posterior cervical adenopathy Neuro: CN II-X grossly intact, normal sensation upper and lower extremities Constitutional Vital Signs, click to edit/add: Last Vital Signs Temp 98.9 F 04/30/23 16:41 Pulse 94 H 04/30/23 16:41 Resp 16 04/30/23 16:41 BP 176/89 H 04/30/23 16:41 Pulse Ox 94 L 04/30/23 16:41 O2 Del Method Room Air 04/30/23 16:41 Results Labs Labs: Short CBC 04/30/23 Range/Units 14:12 WBC 9.3 (4.0-11.0) 10^3/uL Hgb 12.5 L (14.0-18.0) g/dL Hct 39.7 L (42.0-54.0) % Plt Count 215 (150-450) 10^3/uL BMP 04/30/23 14:12 Sodium 140 Potassium 4.2 Chloride 102 Carbon Dioxide 32.3 H BUN 44.0 H Creatinine 2.64 H Glucose 111 H Calcium 8.9 Urine 04/30/23 Range/Units 14:59 Urine Color Lt. yellow (YELLOW) Urine Clarity Clear (CLEAR) Urine pH 6.0 (5.0-9.0) Ur Specific [place] 1.015 (1.005-1.025) Urine Protein Trace (NEG/TRACE) mg/dL Urine Glucose (UA) Negative (NEGATIVE) mg/dL Assessment and Plan Assessment and Plan (1) Generalized weakness: Assessment and Plan: will hold long-acting insulin, could be from hypoglycemic event. We'll get PT OT on board (2) Acute renal failure: Assessment and Plan: will continue normal saline at 75 mL per hour, most likely prerenal from dehydration (3) Effusion, left knee: Assessment and Plan: patient has a history of gout started on prednisone, could also be traumatic effusion from fall and had being on a blood thinner will monitor for any signs of worsening. X-ray negative for any acute fractures (4) Fall: Assessment and Plan: fall secondary to hypoglycemic event, PT OT (5) IDDM (insulin dependent diabetes mellitus): Assessment and Plan: will hold long-acting insulin, but will place on sliding scale and check point of care glucose with meals and at nighttime (6) 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: Assessment and Plan: anemia is stable continue iron supplement (7) CKD stage 3 due to type 2 diabetes mellitus: Assessment and Plan: above baseline (8) Afib: Assessment and Plan: continue eliquis and home medications for rate control (9) CHF (congestive heart failure): Assessment and Plan: no acute exacerbation, no pitting edema, normal lung sounds on exam (10) Hypothyroidism: Assessment and Plan: recheck thyroid studies in the morning continue levothyroxine (11) HTN (hypertension): Assessment and Plan: continue home medications (12) Peripheral neuropathy: Assessment and Plan: continue home medications Plan patient is a DNRCCA will continue eliquis for dvt prophylaxis patient is observation status and is not expected to stay more than 2 midnights
[2023-04-30 17:46] LABS: Glucometer 70 mg/dL (74-106)
--- NOTE | 2023-04-30 17:48 | PC.NURSE ---
Called pharmacy, reviewing meds. [id number]
[2023-04-30 22:28] LABS: Glucometer 115 mg/dL (74-106)
[2023-04-30] MEDS: ISOSORBIDE MONONITRATE 30 MG TAB.ER.24H PO (22:34)
[2023-04-30] MEDS: PREDNISONE 20 MG TABLET PO (22:34)
[2023-04-30] MEDS: ATORVASTATIN CALCIUM 20 MG TABLET PO (22:35)
[2023-04-30] MEDS: APIXABAN 5 MG TABLET 2.5 MG PO (22:35)
[2023-04-30] MEDS: FERROUS SULFATE 325 MG TABLET PO (22:35)
[2023-04-30] MEDS: AMITRIPTYLINE HCL 50 MG TABLET PO (22:35)
[2023-05-01] VITALS (22 sets, daily range): BP systolic 102–128; BP diastolic 61–69; PULSE 56–87; RESP 16–20; TEMP 36.6–36.8; O2SAT 92–97
[2023-05-01] MEDS: 0.9 % SODIUM CHLORIDE 1,000 ML 75 ML IV (04:54)
[2023-05-01 04:57] LABS: Basophils Percent Auto 0.2 % (0.2-2.0); Eosinophils Percent Auto 0.3 % (0.9-7.0); Hematocrit 35.4 % (42.0-54.0); Hemoglobin 11.4 g/dL (14.0-18.0); Immature Granulocytes Abs Auto 0.03 10^3/uL (0.00-0.03); Immature Granulocytes Pct Auto 0.3 % (0.0-0.5); Lymphocytes Absolute Auto 0.9 10^3/uL (1.2-3.8); Lymphocytes Percent Auto 10.1 % (20.5-60.0); Mean Corpuscular HGB Conc 32.2 g/dL (29.9-35.2); Mean Corpuscular Hemoglobin 31.4 pg (25.9-34.0); Mean Corpuscular Volume 97.5 fL (80.0-94.0); Mean Platelet Volume 10.6 fL (9.5-13.5); Monocytes Absolute Auto 0.4 10^3/uL (0.3-0.8); Monocytes Percent Auto 4.6 % (1.7-12.0); Neutrophils Absolute Auto 7.8 10^3/uL (1.4-6.5); Neutrophils Percent Auto 84.5 % (43.0-75.0); Platelet Count 202 10^3/uL (150-450); Red Blood Count 3.63 10^6/uL (4.70-6.10); Red Cell Distribution Width 13.6 % (11.0-15.0); White Blood Count 9.2 10^3/uL (4.0-11.0)
[2023-05-01 05:15] LABS: Uric Acid 9.8 mg/dL (3.5-7.2)
[2023-05-01 05:39] LABS: Alanine Aminotransferase 16 U/L (16-63); Albumin Globulin Ratio 0.7; Albumin Level 2.9 g/dL (3.4-5.0); Alkaline Phosphatase 88 U/L (46-116); Aspartate Amino Transferase 12 U/L (15-37); BUN Creatinine Ratio 17.9; Bilirubin Total 1.3 mg/dL (0.2-1.0); Calcium 8.7 mg/dL (8.5-10.1); Carbon Dioxide 28.1 mmol/L (21.0-32.0); Chloride 103 mmol/L (98-107); Estimated GFR (African America 31 (>=60); Estimated GFR (Non-African Ame 25 (>=60); Glucose 134 mg/dL (74-106); Magnesium 1.9 mg/dL (1.8-2.4); Potassium 4.1 mmol/L (3.5-5.1); Sodium 139 mmol/L (136-145); Total Protein 6.9 g/dL (6.4-8.2)
[2023-05-01] MEDS: LEVOTHYROXINE SODIUM 25 MCG TABLET 50 MCG PO (06:42)
[2023-05-01 07:12] LABS: Glucometer 167 mg/dL (74-106)
--- NOTE | 2023-05-01 07:47 | P.PN_ITS ---
Progress Note: Subjective Subjective Interval history: Knee is better, strength somewhat improved, suppository still difficulty with ambulation. Exam Constitutional Vital Signs, click to edit/add: Last Vital Signs Temp 98.3 F 05/01/23 06:07 Pulse 79 05/01/23 06:07 Resp 20 05/01/23 06:07 BP 127/67 05/01/23 06:07 Pulse Ox 93 L 05/01/23 06:07 O2 Del Method Room Air 05/01/23 06:07 Documenting provider has reviewed patient's vital signs: yes Common normals: no apparent distress Chest Common normals: inspection of chest normal Respiratory Common normals: normal respiratory effort, no retractions and clear to auscultation bilaterally Cardio Common normals: regular rate and no murmurs; irregular rhythm Rhythm: abnormal rhythm GI Common normals: Normal to inspection, nondistended, normoactive bowel sounds present Extremity Common normals: normal to inspection and no pedal edema Progress Note: Objective Labs Labs: Short CBC 04/30/23 05/01/23 Range/Units 14:12 04:35 WBC 9.3 9.2 (4.0-11.0) 10^3/uL Hgb 12.5 L 11.4 L (14.0-18.0) g/dL Hct 39.7 L 35.4 L (42.0-54.0) % Plt Count 215 202 (150-450) 10^3/uL BMP 04/30/23 05/01/23 14:12 04:35 Sodium 140 139 Potassium 4.2 4.1 Chloride 102 103 Carbon Dioxide 32.3 H 28.1 BUN 44.0 H 44.0 H Creatinine 2.64 H 2.46 H Glucose 111 H 134 H Calcium 8.9 8.7 Liver Function 05/01/23 Range/Units 04:35 Total Bilirubin 1.3 H (0.2-1.0) mg/dL AST 12 L (15-37) U/L ALT 16 (16-63) U/L Alkaline Phosphatase 88 (46-116) U/L Albumin 2.9 L (3.4-5.0) g/dL Urine 04/30/23 Range/Units 14:59 Urine Color Lt. 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: (7) CKD stage 3 due to type 2 diabetes mellitus: (8) Afib: (9) CHF (congestive heart failure): (10) Hypothyroidism: (11) HTN (hypertension): (12) Peripheral neuropathy: Plan (1) Generalized weakness: Secondary to uncontrolled diabetes with hyperglycemia and dehydration secondary to history of heart failure and adjusting medications, not back to baseline from a creatinine standpoint sugars stable but still off his long-acting insulin which will maintain at this point time (2) Acute renal failure:-Getting closer to baseline but not back yet, but with his history of heart failure we will saline lock today, continue spironolactone, hold off on Bumex (3) Effusion, left knee:-Much improved likely just from the contusion as opposed to gout we will DC the prednisone and see how he progresses throughout the day today., DC prednisone secondary to diabetes (4) Fall:-Fall secondary to hypoglycemia and acute elevation in creatinine creatinine secondary to dehydration-improving, PT to work with patient today (5) IDDM (insulin dependent diabetes mellitus): Sugars still stable off long- acting insulin, may maintain that at home, (6) 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: Continues to follow (7) CKD stage 3 due to type 2 diabetes mellitus:-Above baseline still. His creatinine normally is right around 2. Saline lock today though (8) Afib: On Eliquis and rate controlled (9) CHF (congestive heart failure): No edema and lungs are clear, maintain current heart failure medications of Entresto and Aldactone, consider restarting Bumex tomorrow (10) Hypothyroidism: TSH is normal (11) HTN (hypertension): Stable continue with home medications (12) Peripheral neuropathy: Continue to follow Unable to improve over the first midnight. Physical therapy to work with patient today. Not back to baseline for his creatinine with high risk of heart failure he does saline lock, monitor closely today, adjust medications back to his home medications over the course of the next 24 to 48 hours. We will change patient to inpatient status secondary to active medical management of the above complaints over 48 hours, possible 1-2 more day hospitalization anticipated ?
[2023-05-01] MEDS: CARVEDILOL 25 MG TABLET PO ×2 (08:29→21:18)
[2023-05-01] MEDS: ISOSORBIDE MONONITRATE 30 MG TAB.ER.24H PO ×2 (08:29→21:18)
[2023-05-01] MEDS: SPIRONOLACTONE 25 MG TABLET 12.5 MG PO (08:29)
[2023-05-01] MEDS: APIXABAN 5 MG TABLET 2.5 MG PO ×2 (08:29→21:18)
[2023-05-01] MEDS: ASPIRIN 81 MG TABLET.DR PO (08:29)
--- NOTE | 2023-05-01 10:53 | SWNOTE1 ---
Therapy worked with pt and they are recommending home health. SW to talk with pt and family.
[2023-05-01 11:02] LABS: Glucometer 247 mg/dL (74-106)
[2023-05-01] MEDS: INSULIN ASPART 300 UNIT/3 ML PEN SUBQ ×3 (11:26→21:19)
--- NOTE | 2023-05-01 13:19 | SWNOTE1 ---
SW met with pt to discuss dc needs. Pt lives at home by himself. He has family close by that help as needed. Pt had a fall at home due to his blood sugars, family was notified immediately and pt stated they were there very fast. Pt was not sure what he did different that day. Pt voices he is feeling much better. He has walker at home that he does use at times to get around. Pt is sitting at edge of bed when SW came to talk with him. SW asked pt about his home health. They did stop coming a few weeks ago. He is open to them coming in again. He used [facility] and would like them again. SW asked if he thought his family would be alright with this. Pt stated he can make his own decisions still and that he is what he wants to do. He stated they are pretty supportive. [facility] Pt does not want to review Important Message from medicare until his family was here. SW to review tomorrow.
[2023-05-01 16:11] LABS: Glucometer 222 mg/dL (74-106)
[2023-05-01 20:40] LABS: Glucometer 228 mg/dL (74-106)
[2023-05-01] MEDS: FERROUS SULFATE 325 MG TABLET PO (21:18)
[2023-05-01] MEDS: SACUBITRIL/VALSARTAN 24 MG-26 MG TABLET 2 TAB PO (21:18)
[2023-05-01] MEDS: AMITRIPTYLINE HCL 50 MG TABLET PO (21:19)
[2023-05-01] MEDS: ATORVASTATIN CALCIUM 20 MG TABLET PO (21:19)
[2023-05-02 00:03] VITALS: PULSE 60
[2023-05-02 02:00] VITALS: PULSE 61
[2023-05-02 04:08] VITALS: PULSE 69
[2023-05-02 05:20] LABS: Basophils Percent Auto 0.4 % (0.2-2.0); Eosinophils Absolute Auto 0.2 10^3/uL (0.0-0.7); Eosinophils Percent Auto 2.5 % (0.9-7.0); Hemoglobin 10.7 g/dL (14.0-18.0); Immature Granulocytes Abs Auto 0.02 10^3/uL (0.00-0.03); Immature Granulocytes Pct Auto 0.2 % (0.0-0.5); Lymphocytes Absolute Auto 1.7 10^3/uL (1.2-3.8); Lymphocytes Percent Auto 20.3 % (20.5-60.0); Mean Corpuscular HGB Conc 31.5 g/dL (29.9-35.2); Mean Corpuscular Hemoglobin 30.7 pg (25.9-34.0); Mean Corpuscular Volume 97.7 fL (80.0-94.0); Mean Platelet Volume 10.5 fL (9.5-13.5); Monocytes Percent Auto 12.1 % (1.7-12.0); Neutrophils Absolute Auto 5.2 10^3/uL (1.4-6.5); Neutrophils Percent Auto 64.5 % (43.0-75.0); Platelet Count 192 10^3/uL (150-450); Red Blood Count 3.48 10^6/uL (4.70-6.10); Red Cell Distribution Width 13.6 % (11.0-15.0); White Blood Count 8.1 10^3/uL (4.0-11.0)
[2023-05-02 05:32] LABS: Anion Gap 8.6; BUN Creatinine Ratio 20.3; Calcium 8.1 mg/dL (8.5-10.1); Carbon Dioxide 30.2 mmol/L (21.0-32.0); Chloride 107 mmol/L (98-107); Estimated GFR (African America 32 (>=60); Estimated GFR (Non-African Ame 26 (>=60); Glucose 130 mg/dL (74-106); Potassium 3.8 mmol/L (3.5-5.1); Sodium 142 mmol/L (136-145)
[2023-05-02] MEDS: LEVOTHYROXINE SODIUM 25 MCG TABLET 50 MCG PO (05:34)
[2023-05-02 05:37] VITALS: BP 142/75; PULSE 67; RESP 16; TEMP 36.6; O2SAT 92
[2023-05-02 06:00] VITALS: BP 142/75; PULSE 67; PULSE 70; RESP 16; TEMP 36.6; O2SAT 92
[2023-05-02] MEDS: SPIRONOLACTONE 25 MG TABLET 12.5 MG PO (08:32)
[2023-05-02] MEDS: INSULIN DETEMIR 300 UNIT/3 ML INSULN.PEN 20 UNIT SUBQ (08:32)
[2023-05-02] MEDS: CARVEDILOL 25 MG TABLET PO (08:32)
[2023-05-02] MEDS: APIXABAN 5 MG TABLET 2.5 MG PO (08:32)
[2023-05-02] MEDS: ISOSORBIDE MONONITRATE 30 MG TAB.ER.24H PO (08:33)
[2023-05-02] MEDS: ASPIRIN 81 MG TABLET.DR PO (08:33)
[2023-05-02] MEDS: SACUBITRIL/VALSARTAN 24 MG-26 MG TABLET 2 TAB PO (08:33)
--- NOTE | 2023-05-02 09:11 | P.DS_ITS ---
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: (7) CKD stage 3 due to type 2 diabetes mellitus: (8) Afib: (9) CHF (congestive heart failure): (10) Hypothyroidism: (11) HTN (hypertension): (12) Peripheral neuropathy: Plan (1) Generalized weakness: Secondary to uncontrolled diabetes with hyperglycemia and dehydration secondary to history of heart failure and adjusting medications (2) Acute renal failure: (3) Effusion, left knee: (4) Fall: (5) IDDM (insulin dependent diabetes mellitus): (6) 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 DS: Summary Hospital Course Hospital Course: Patient was admitted to the emergency room with status post fall and dehydration with acute renal failure. Given gentle hydration secondary to history of heart failure. Her medications were restarted yesterday. He also had some significant hypoglycemia. I suspect this is due to his acute renal failure as well. Decreased his insulin dose. He feels much improved today. Work with physical therapy again this morning. If ambulating safely with PT this morning to be discharged home in improving condition. Medications see list. Follow-up with me in the office next week. Time Spent with Patient Time attestation: Total time spent providing and/or coordinating discharge services: Exam Constitutional Vital Signs, click to edit/add: Last Vital Signs Temp 97.9 F 05/02/23 06:00 Pulse 70 05/02/23 06:00 Resp 16 05/02/23 06:00 BP 142/75 H 05/02/23 06:00 Pulse Ox 92 L 05/02/23 06:00 O2 Del Method Room Air 05/02/23 06:00 Documenting provider has reviewed patient's vital signs: yes Common normals: no apparent distress Chest Common normals: inspection of chest normal Respiratory Common normals: normal respiratory effort, no retractions and clear to auscultation bilaterally Cardio Common normals: regular rate and no murmurs; irregular rhythm Rhythm: abnormal rhythm GI Common normals: Normal to inspection, nondistended, normoactive bowel sounds present Extremity Common normals: normal to inspection and no pedal edema DS: Data Data Completed and Pending Labs on day of discharge: Labs from last 24 hours 05/02/23 05/01/23 05/01/23 04:48 20:38 16:10 WBC 8.1 RBC 3.48 L Hgb 10.7 L Hct 34.0 L MCV 97.7 H MCH 30.7 MCHC 31.5 RDW 13.6 Plt Count 192 MPV 10.5 Neut % (Auto) 64.5 Lymph % (Auto) 20.3 L [place] % (Auto) 12.1 H Eos % (Auto) 2.5 Baso % (Auto) 0.4 Neut # (Auto) 5.2 Lymph # (Auto) 1.7 [place] # (Auto) 1.0 H Eos # (Auto) 0.2 Baso # (Auto) 0.0 Abs Immat Gran (auto) 0.02 Imm/Tot Granulo (auto) 0.2 Sodium 142 Potassium 3.8 Chloride 107 Carbon Dioxide 30.2 Anion Gap 8.6 BUN 48.0 H Creatinine 2.37 H Est GFR ( Amer) 32 L Est GFR (Non-Af Amer) 26 L BUN/Creatinine Ratio 20.3 Glucose 130 H Calcium 8.1 L POC Glucose 228 H 222 H 05/01/23 11:01 WBC RBC Hgb Hct MCV MCH MCHC RDW Plt Count MPV Neut % (Auto) Lymph % (Auto) [place] % (Auto) Eos % (Auto) Baso % (Auto) Neut # (Auto) Lymph # (Auto) [place] # (Auto) Eos # (Auto) Baso # (Auto) Abs Immat Gran (auto) Imm/Tot Granulo (auto) Sodium Potassium Chloride Carbon Dioxide Anion Gap BUN Creatinine Est GFR ( Amer) Est GFR (Non-Af Amer) BUN/Creatinine Ratio Glucose Calcium POC Glucose 247 H Discharge Plan Discharge Condition: Good Discharge Medications: New insulin glargine 100 unit/mL solution 20 unit subcut QAM Qty: 10 0RF Continued atorvastatin 20 mg tablet 20 mg PO .QHS ferrous sulfate [FeroSul] 325 mg (65 mg iron) tablet 325 mg PO QPM levothyroxine 50 mcg tablet 50 mcg PO .qhs Entresto 49-51 mg tablet 1 tab PO BID Patient Comments: recieves samples from Dr. Lopez's office aspirin [Adult Aspirin Regimen] 81 mg tablet,delayed release (DR/EC) 81 mg PO DAILY Hold Instructions: Doctor's Order Eliquis 5 mg Tablet 2.5 mg PO BID Qty: 60 0RF Patient Comments: recieves samples from Dr. Lopez's office isosorbide mononitrate 30 mg Tablet Extended Release 24 Hr 30 mg PO BID Qty: 60 0RF acetaminophen [Tylenol Extra Strength] 500 mg Tablet 1,000 mg PO Q6H PRN (Reason: Pain -Mild) Qty: 10 0RF insulin aspart U-100 [Novolog FlexPen U-100 Insulin] 100 unit/mL (3 mL) Insulin Pen 2 - 14 unit subcut ACHS Qty: 15 0RF amitriptyline 50 mg tablet 50 mg PO BEDTIME spironolactone 25 mg tablet 12.5 mg PO DAILY carvedilol 25 mg tablet 25 mg PO BID Discontinued insulin glargine [Lantus Solostar U-100 Insulin] 100 unit/mL (3 mL) insulin pen 40 unit SUBCUT QDAY Qty: 0 0RF Patient Comments: Pt states he only takes insulin once a day in the morning Forms: Portal Instructions
[2023-05-02 09:53] VITALS: PULSE 69
--- NOTE | 2023-05-02 10:22 | SWNOTE1 ---
LESLEY spoke with pt and son in room. LESLEY let pt know [facility] will be out to see pt on to assess pt. SW let him know there phone number is listed in discharge paperwork. Pt's son also asked about assisted living as well. SW and pt's son spoke about it being private pay and a general idea of cost per month. SW and pt's son also spoke with medicaid and how to apply and some of the guidelines. LESLEY printed off medicaid application and list of assisted living facilities in area. LESLEY also reviewed IMM form with pt and son. At this time no questions or concerns. Pt's son signed form, copy placed in chart and original given to pt/pt's son.
--- NOTE | 2023-05-03 13:30 | CM.DCFOLLOWU ---
Person spoke with: Sheng How are you feeling? Much better How is your pain? No pain Did you understand your discharge instructions? Yes Do you have any questions about your discharge instructions? Question regarding insulin dose. Clarified discharge dose with pt Were you given any prescriptions at discharge? Just change in insulin dose Were you able to get your prescriptions filled? N/A Do you understand how to take your medications as ordered? yes Do you have any questions about your follow up appointment and do you plan to keep your follow up appointment? It is scheduled and I plan on going Is there anything else that you would like to discuss? No Questions/Comments/Concerns/Other:
== END 2023-05-02 10:29 | disposition home health service (06) | DRG 638 ==
LOC: ER 15:59 → MS 05-01 07:28
PROVIDERS: Family Medicine; Admitting Provider Family Medicine; Emergency Provider Emergency Medicine; PCP Family Medicine; Visit Provider Family Medicine
DX: E11.65 Type 2 diabetes mellitus with hyperglycemia (principal); N17.9 Acute kidney failure, unspecified; I13.0 Hypertensive heart and chronic kidney disease with heart failure and stage 1 through stage 4 chronic kidney disease, or unspecified chronic kidney disease; Z66 Do not resuscitate; E11.22 Type 2 diabetes mellitus with diabetic chronic kidney disease; E11.42 Type 2 diabetes mellitus with diabetic polyneuropathy; N18.30 Chronic kidney disease, stage 3 unspecified; I50.9 Heart failure, unspecified; R53.1 Weakness; E03.9 Hypothyroidism, unspecified; I48.91 Unspecified atrial fibrillation; D63.1 Anemia in chronic kidney disease; E86.0 Dehydration; R29.6 Repeated falls; S80.02XA Contusion of left knee, initial encounter; M25.462 Effusion, left knee; Z87.891 Personal history of nicotine dependence; Z79.890 Hormone replacement therapy; Z79.4 Long term (current) use of insulin; Z79.01 Long term (current) use of anticoagulants; Z79.899 Other long term (current) drug therapy; W18.30XA Fall on same level, unspecified, initial encounter; Y93.9 Activity, unspecified; Y92.9 Unspecified place or not applicable; Y99.9 Unspecified external cause status; E78.5 Hyperlipidemia, unspecified; D50.9 Iron deficiency anemia, unspecified; Z79.82 Long term (current) use of aspirin
CPT/HCPCS: 36415; 71045; 73502; 73562; 80048; 80053; 81001; 82948; 83735; 84443; 84484; 84550; 85025; 93005; 94761; 96360; 97161; 97165; 97535; 99285; G0378

== ENCOUNTER 2023-05-29 10:30 | Outpatient (OUT) | payer MEDICARE, SELFPAY ==
[2023-05-30 05:07] LABS: PSA, Free 3.04 ng/mL; Prostate Specific Ag 8.6 ng/mL (0.0-4.0)
== END 2023-05-29 10:31 | disposition home or self-care (01) ==
LOC: LAB 10:30
PROVIDERS: PCP Family Medicine; Visit Provider Family Medicine
DX: R97.20 Elevated prostate specific antigen [PSA] (principal)
CPT/HCPCS: 36415; 84153; 84154

== ENCOUNTER 2023-06-26 10:13 | Outpatient (OUT) | payer MEDICARE, SELFPAY ==
--- NOTE | 2023-06-26 10:25 | XR_ITS ---
The [address] [address] Patient Name: JAJA FRANKLIN MRN: [id number] date: 1940 Sex: M Assigned Patient Location: [facility] Current Patient Location: Accession/Order Number: [id number] Exam Date: 06/26/2023 10:55 Report Date: 06/27/2023 07:24 At the request of: DERRICK AYALA Procedure: XR foot LT min 3V EXAM: XR foot LT min 3V HISTORY: Left Foot Pain M79.672 COMPARISON: None. TECHNIQUE: Routine views of the XR foot LT min 3V FINDINGS/ XR/XR foot LT min 3V IMPRESSION: 1. No acute fractures. Plantar calcaneal spur and Achilles enthesophyte. 2. Atherosclerotic calcific lesions are present. Near diffuse soft tissue prominence. 3. Moderate first MTP and mild scattered interphalange joint degeneration. Degenerative changes of the dorsal midfoot and talonavicular articulation. Electronically authenticated by: MIREILLE MOSQUERA Date: 06/27/2023 07:24
== END 2023-06-26 10:14 | disposition home or self-care (01) ==
LOC: RAD 10:15
PROVIDERS: PCP Family Medicine; Visit Provider Family Medicine
DX: M79.672 Pain in left foot (principal); M77.32 Calcaneal spur, left foot
CPT/HCPCS: 73630

== ENCOUNTER 2023-08-11 09:43 | Outpatient (OUT) | payer MEDICARE, SELFPAY ==
--- OUTSIDE RECORDS SUMMARY | 2023-08-11 09:57 | XMS_ITS | CCD ---
Author Name Unknown Address [id number] [place] [address] Organization [facility] Care Team Providers Care Hatchery Helper Name Role Phone AHMED, ZAYRA Unavailable Unavailable ITALOMED, ZAYRA Unavailable Unavailable LUCY DERRICK Unavailable Unavailable JAZLYN SHERIDAN Unavailable Unavailable CT Unavailable Unavailable UNKNOWN, PROVIDER Unavailable Unavailable Derrick Lopez Primary Care Physician César Gordon Attending Unavailable TASHA OROZCO Attending Unavailable HOY ., DR MEZA Attending Unavailable HOY ., DR MEZA Primary Care Unavailable HOY ., DR EMZA Admitting Unavailable HOY ., DR MEZA Consulting Unavailable HOY ., DR MEZA Primary Care Unavailable HOY ., DR MEZA Admitting Unavailable HOY ., DR MEZA Attending Unavailable HOY ., DR MEZA Attending Unavailable HOY ., DR MEZA Consulting Unavailable HOY ., DR MEZA Primary Care Unavailable HOY ., DR MEZA Admitting Unavailable ZIEBER, DR AWAIS King Consulting Unavailable HOY ., DR MEZA Attending Unavailable HOY ., DR MEZA Consulting Unavailable HOY ., DR MEZA Primary Care Unavailable HOY ., DR MEZA Admitting Unavailable HOY ., DR MEZA Consulting Unavailable HOY ., DR MEZA Attending Unavailable HOY ., DR MEZA Primary Care Unavailable HOY ., DR MEZA Admitting Unavailable MOUKARBEL, DR LOTT Attending Unavailable MOUKARBEL, DR LOTT Consulting Unavailable HOY ., DR MEZA Primary Care Unavailable MOUKARBEL, DR LOTT Admitting Unavailable HOY ., DR MEZA Primary Care Unavailable HOY ., DR MEZA Attending Unavailable HOY ., DR MEZA Consulting Unavailable HOY ., DR MEZA Admitting Unavailable HOY ., DR MEZA Admitting Unavailable HOY ., DR MEZA Consulting Unavailable HOY ., DR MEZA Primary Care Unavailable HOY ., DR MEZA Attending Unavailable HOY ., DR MEZA Primary Care Unavailable HOY ., DR MEZA Attending Unavailable HOY ., DR MEZA Consulting Unavailable HOY ., DR MEZA Admitting Unavailable GORDON JR ., DR CÉSAR Vega Admitting Unavaila ble GORDON JR ., DR CÉSAR Vega Attending Unavaila ble GORDON JR ., DR CÉSAR Vega Consulting Unavaila ble HOY ., DR MEZA Primary Care Unavailable MOUKARBEL, DR LOTT Attending Unavailable MOUKARBEL, DR LOTT Consulting Unavailable MOUKARBEL, DR LOTT Admitting Unavailable HOY ., DR MEZA Primary Care Unavailable HOY ., DR MEZA Attending Unavailable HOY ., DR MEZA Consulting Unavailable HOY ., DR MEZA Primary Care Unavailable HOY ., DR MEZA Admitting Unavailable HOY ., DR MEZA Attending Unavailable HOY ., DR MEZA Consulting Unavailable HOY ., DR MEZA Primary Care Unavailable HOY ., DR MEZA Admjuany Unavailable MOUKARBEL, DR LOTT Attending Unavailable MOUKARBEL, DR LOTT Consulting Unavailable MOUKARBEL, DR LOTT Admitting Unavailable HOY ., DR MEZA Referring Unavailable HOY ., DR MEZA Attending Unavailable HOY ., DR MEZA Consulting Unavailable HOY ., DR MEZA Primary Care Unavailable HOY ., DR MEZA Admitting Unavailable HOY ., DR MEZA Attending Unavailable HOY ., DR MZEA Consulting Unavailable HOY ., DR MEZA Primary Care Unavailable HOY ., DR MEZA Admjuany Unavailable HOY ., DR MEZA Attending Unavailable HOY ., DR MEZA Consulting Unavailable HOY ., DR MEZA Primary Care Unavailable HOY ., DR MEZA Admitting Unavailable RYLIE ., HUANG Admitting Unavailable RYLIE ., HUANG Attending Unavailable HOY ., DR MEZA Primary Care Unavailable RYLIE ., HUANG Consulting Unavailable HOY ., DR MEZA Primary Care Unavailable HOY ., DR MEZA Procedure Practitioner Unavail able HOY ., DR MEZA Consulting Unavailable HOY ., DR MEZA Admitting Unavailable HOY ., DR MEZA Attending Unavailable HEATH, DR MONY Burnett Consulting Unavailable OMER, DR AWAIS King Consulting Unavailable RAJESH, WILSON Consulting Unavailable DIAB ., LEVAR Consulting Unavailable REDD CHAMBERLAIN Consulting Unavailable DIAB ., LEVAR Admitting Unavailable DIAB ., LEVAR Attending Unavailable HOY ., DR MEZA Primary Care Unavailable LAUREN, DR MONY Burnett Consulting Unavailable DIAB ., LEVAR Consulting Unavailable HOY ., DR MEZA Attending Unavailable HOY ., DR MEZA Primary Care Unavailable EVAN, DR RACHEL King Consulting Unavailable HOY ., DR MEZA Admitting Unavailable HOY ., DR MEZA Consulting Unavailable LUIS ALBERTO ., WATSON Consulting Unavailable POLICARO, CELIA Consulting Unavailable GARRISON, NATACHA Consulting Unavailable HOY ., DR MEZA Primary Care Unavailable HOY ., DR MEZA Attending Unavailable HOY ., DR MEZA Consulting Unavailable HOY ., DR MEZA Admitting Unavailable SINCLAIR ., DR DEMETRI Navas Consulting Unavailable DEANA, DR BOBBI Leblanc Consulting Unavailnaomy CAMPOS, DELANEY Consulting Unavailable HOY ., DR MEZA Attending Unavailable HOY ., DR MEZA Primary Care Unavailable HOY ., DR MEZA Admitting Unavailable HOY ., DR MEZA Consulting Unavailable HOY ., DR MEZA Primary Care Unavailable HOY ., DR MEZA Admitting Unavailable HOY ., DR MEZA Attending Unavailable LEATHA MARROQUIN Attending Unavailable OREN SIMON Attending Unavailable OREN SIMON Attending Unavailable Allergies Allergy Classification Reported Allergen(s) Allergy Type Date of Onset Reaction(s) Facility (1 source) No Known Medication Allergies; 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: [No Known Medication Allergies] Propensity to adverse reactions (disorder) [facility] Repository Medications Current Medications Medication Drug Class(es) Dates Sig (Normalized) Sig (Original) amitriptyline hydrochloride 25 mg oral tablet (1 source) Tricyclic Antidepressant Start: 09-15-2022 amitriptyline 25 mg Tab Refills(s) 0 Start Date: 09/15/22 Status: Ordered amLODIPine 10 mg oral tablet (2 sources) Dihydropyridine Calcium Channel Pedro Start: 05-23-2019 take 10 mg by mouth once daily amlodipine 10 mg, Oral, Daily, Refills(s) 0 Start Date: 05/23/19 Status: Ordered aspirin 81 mg oral tablet (2 sources) Platelet Aggregation Inhibitor, Nonsteroidal Anti-inflammatory Drug Start: 05-23-2019 take 1 tablet by mouth once daily aspirin 81 mg oral tablet 81 mg = 1 tab(s), Oral, Daily, # 30 tab(s), Refills(s) 0 Start Date: 05/23/19 Status: Ordered atorvastatin 20 mg oral tablet (2 sources) HMG-CoA Reductase Inhibitor Start: 06-22-2021 take 1 tablet by mouth once daily Lipitor 20 mg Tab 20 mg = 1 tab(s), Oral, Daily, Refills(s) 0 Start Date: 06/22/21 Status: Ordered Lotensin (2 sources) Angiotensin Converting Enzyme Inhibitor Start: 01-28-2020 Lotensin Oral, Daily, Refills(s) 0 Start Date: 01/28/20 Status: Ordered carvedilol 25 mg oral tablet (2 sources) alpha-Adrenergic Pedro, beta-Adrenergic Pedro Start: 05-23-2019 take 1 tablet by mouth twice daily carvedilol 25 mg Tab 25 mg = 1 tab(s), Oral, BID, # 60 tab(s), Refills(s) 0 Start Date: 05/23/19 Status: Ordered glimepiride 4 mg oral tablet (2 sources) Sulfonylurea Start: 05-23-2019 take 2 tablets by mouth once daily glimepiride 4 mg Tab 8 mg = 2 tab(s), Oral, Daily, Refills(s) 0 Start Date: 05/23/19 Status: Ordered hydrALAZINE hydrochloride 50 mg oral tablet (1 source) Arteriolar Vasodilator Start: 09-15-2022 hydrALAZINE 50 mg Tab Refills(s) 0 Start Date: 09/15/22 Status: Ordered lisinopril 30 mg oral tablet (2 sources) Angiotensin Converting Enzyme Inhibitor Start: 05-23-2019 take 1 tablet by mouth once daily lisinopril 30 mg Tab 30 mg = 1 tab(s), Oral, Daily, # 30 tab(s), Refills(s) 0 Start Date: 05/23/19 Status: Ordered metFORMIN hydrochloride 1000 mg oral tablet (2 sources) Biguanide Start: 05-23-2019 take 1 tablet by mouth twice daily metformin 1000 mg oral tablet, extended release 1,000 mg = 1 tab(s), Oral, BID, # 60 tab(s), Refills(s) 0 Start Date: 05/23/19 Status: Ordered pravastatin sodium 20 mg oral tablet (2 sources) HMG-CoA Reductase Inhibitor Start: 05-23-2019 take 1 tablet by mouth once daily pravastatin 20 mg Tab 20 mg = 1 tab(s), Oral, Daily, # 30 tab(s), Refills(s) 0 Start Date: 05/23/19 Status: Ordered Problems Active Problems Problem Classification Problem Date Documented Date Episodic/Chronic Acute posthemorrhagic anemia (1 source) Acute posthemorrhagic anemia; 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: [ACUTE POSTHEMORRHAGIC ANEMIA] Onset: 11-30-2022 Episodic Chronic kidney disease (4 sources) Chronic kidney disease, unspecified; 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: [Chronic kidney disease, stage 2 (mild)] Onset: 03-08-2018 Chronic Complication of device; implant or graft (1 source) Hemorrhage due to genitourinary prosthetic devices, implants and grafts, initial encounter; 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: [HEM D/T PROS DEVC IMPL GFT INIT] Onset: 11-30-2022 Episodic Congestive heart failure; nonhypertensive (16 sources) Chronic combined systolic (congestive) and diastolic (congestive) heart failure; 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: [Heart failure, unspecified] Onset: 01-15-2022 Chronic Coronary atherosclerosis and other heart disease (12 sources) Old myocardial infarction; 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: [Atherosclerotic heart disease of [place] coronary artery with unstable angina pectoris] Onset: 03-08-2018 Chronic Diabetes mellitus with complications (2 sources) Type 2 diabetes mellitus with diabetic chronic kidney disease; 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: [TYPE 2 DIABETES MELLITUS W DIABETIC CHRONIC KIDNEY DISEASE] Onset: 03-08-2018 Chronic Diabetes mellitus without complication (1 source) Other abnormal glucose; 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: [OTHER ABNORMAL GLUCOSE] Onset: 11-27-2022 Episodic Diseases of white blood cells (1 source) Elevated white blood cell count, unspecified; 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: [ELEVATED WHITE BLOOD CELL COUNT UNS] Onset: 11-30-2022 Chronic Disorders of lipid metabolism (5 sources) Hyperlipidemia, unspecified; 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: [Pure hypercholesterolemia, unspecified] Onset: 03-08-2018 Chronic E Codes: Fall (1 source) Fall on same level, unspecified, initial encounter; 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: [FALL SAME LEVEL UNSPECIFIED INITIAL] Onset: 11-30-2022 Episodic E Codes: Struck by; against (1 source) Walked into furniture, initial encounter; 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: [WALKED INTO FURNITURE INITIAL ENC] Onset: 12-16-2022 Episodic Essential hypertension (2 sources) Essential (primary) hypertension; 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: [Essential (primary) hypertension] Onset: 05-03-2022 Chronic Fever of unknown origin (1 source) Fever, unspecified; 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: [FEVER UNSPECIFIED] Onset: 11-30-2022 Episodic Genitourinary symptoms and ill-defined conditions (7 sources) Nocturia; 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: [Nocturia] Onset: 02-15-2022 Episodic Heart valve disorders (1 source) Nonrheumatic pulmonary valve insufficiency; 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: [NONRHEUMATIC PULMONARY VALVE INSUFF] Onset: 07-24-2022 Chronic Hyperplasia of prostate (5 sources) Benign prostatic hypertrophy with outflow obstruction; 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: [Benign prostatic hyperplasia with lower urinary tract symptoms] Onset: 02-15-2022 Chronic Hypertension with complications and secondary hypertension (6 sources) Hypertensive chronic kidney disease with stage 1 through stage 4 chronic kidney disease, or unspecified chronic kidney disease; 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: [Hypertensive heart and chronic kidney disease with heart failure and stage 1 through stage 4 chronic kidney disease, or unspecified chronic kidney disease] Onset: 03-08-2018 Chronic Immunizations and screening for infectious disease (1 source) Encounter for immunization; 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: [ENCOUNTER FOR IMMUNIZATION] Onset: 11-30-2022 Episodic Malaise and fatigue (1 source) Other fatigue; 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: [OTHER FATIGUE] Onset: 11-27-2022 Episodic Menopausal disorders (1 source) Hormone replacement therapy; 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: [HORMONE REPLACEMENT THERAPY] Onset: 11-30-2022 Episodic Nutritional deficiencies (1 source) Vitamin D deficiency, unspecified; 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: [VITAMIN D DEFICIENCY UNSPECIFIED] Onset: 11-27-2022 Chronic Open wounds of extremities (1 source) Laceration without foreign body of left elbow, initial encounter; 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: [LACERATION W/O FB LT ELBOW INITIAL] Onset: 12-16-2022 Episodic Osteoarthritis (2 sources) Unspecified osteoarthritis, unspecified site; 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: [Unilateral primary osteoarthritis, left knee] Onset: 11-30-2022 Chronic Other aftercare (2 sources) senior living (current) use of antithrombotics/antip latelets; 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: [long term care phlebotomist (current) use of aspirin] Onset: 03-08-2018 Episodic Other aftercare (1 source) Other long term care phlebotomist (current) drug therapy; 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: [OTH [facility] CURRENT DRUG THERAPY] Onset: 12-16-2022 Episodic Other aftercare (1 source) long term care phlebotomist (current) use of insulin; 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: [DRAWING PRESS OPERATOR CURRENT USE OF INSULIN] Onset: 12-16-2022 Episodic Other aftercare (1 source) long term care phlebotomist (current) use of aspirin; 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: [MCFP CURRENT USE OF ASPIRIN] Onset: 11-30-2022 Episodic Other circulatory disease (1 source) Hypotension, unspecified; 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: [HYPOTENSION UNSPECIFIED] Onset: 11-30-2022 Episodic Other diseases of kidney and ureters (2 sources) Cyst of kidney 06-22-2021 Episodic Other lower respiratory disease (1 source) Personal history of pneumonia (recurrent); 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: [PERSONAL HX OF PNEUMONIA RECURRENT] Onset: 12-16-2022 Episodic Other non-traumatic joint disorders (4 sources) Pain in left elbow; 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: [PAIN IN LEFT ELBOW] Onset: 12-15-2022 Episodic Other non-traumatic joint disorders (2 sources) Pain in right knee; 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: [PAIN IN RIGHT KNEE] Onset: 10-25-2022 Episodic Other nutritional; endocrine; and metabolic disorders (1 source) Morbid (severe) obesity due to excess calories; 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: [MORBID SEVERE OBES D/T EXCESS MADDIE] Onset: 10-25-2022 Chronic Other nutritional; endocrine; and metabolic disorders (1 source) Body mass index (BMI) 36.0-36.9, adult; 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: [BODY MASS INDEX BMI 36.0-36.9 ADULT] Onset: 02-03-2022 Chronic Other nutritional; endocrine; and metabolic disorders (1 source) Body mass index (BMI) 33.0-33.9, adult; 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: [BODY MASS INDEX BMI 33.0-33.9 ADULT] Onset: 01-04-2022 Chronic Other screening for suspected conditions (not mental disorders or infectious disease) (11 sources) Raised prostate specific antigen; 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: [Elevated prostate specific antigen [PSA]] Onset: 02-15-2022 Episodic Berta-; endo-; and myocarditis; cardiomyopathy (except that caused by tuberculosis or sexually transmitted disease) (2 sources) Cardiomyopathy in diseases classified elsewhere; 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: [Cardiomyopathy in diseases classified elsewhere] Onset: 03-13-2023 Chronic Residual codes; unclassified (1 source) Acquired absence of other specified parts of digestive tract; 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: [ACQ ABSENCE OTH PART DIGESTV TRACT] Onset: 12-16-2022 Episodic Residual codes; unclassified (1 source) Altered mental status, unspecified; 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: [ALTERED MENTAL STATUS UNSPECIFIED] Onset: 11-30-2022 Episodic Screening or history of mental health and substance abuse (2 sources) Personal history of nicotine dependence; 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: [PERSONAL HISTORY OF NICOTINE DEPENDENCE] Onset: 03-08-2018 Episodic Superficial injury; contusion (7 sources) Contusion of right knee, initial encounter; 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: [Abrasion of left hand, initial encounter] Onset: 10-22-2022 Episodic Thyroid disorders (1 source) Hypothyroidism, unspecified; 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: [HYPOTHYROIDISM UNSPECIFIED] Onset: 12-16-2022 Chronic Unclassified (1 source) senior living (current) use of oral hypoglycemic drugs; 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: [[facility] (CURRENT) USE OF ORAL HYPOGLYCEMIC DRUGS] Onset: 03-08-2018 Unclassified (2 sources) Unknown / UNK(Unknown) Onset: 03-08-2018 Unclassified (1 source) CONTACT W/AND (SUSP) EXPOS COVID-19; 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: [CONTACT W/AND (SUSP) EXPOS COVID-19] Onset: 11-30-2022 Unclassified (1 source) CHRN KIDNEY DISEASE STG 3 UNSP; 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: [CHRN KIDNEY DISEASE STG 3 UNSP] Onset: 02-03-2022 Past or Other Problems Problem Classification Problem Date Documented Da te Episodic/Chronic Coronary atherosclerosis and other heart disease (6 sources) Presence of aortocoronary bypass graft; 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: [Presence of coronary angioplasty implant and graft] Onset: 03-08-2018 Episodic Deficiency and other anemia (1 source) Iron deficiency anemia, unspecified; 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: [IRON DEFICIENCY ANEMIA UNSPECIFIED] Onset: 02-03-2022 Episodic Fluid and electrolyte disorders (5 sources) Hypokalemia; 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: [Hyperkalemia] Onset: 01-12-2022 Episodic Other ear and sense organ disorders (1 source) Impacted cerumen, unspecified ear; 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: [IMPACTED CERUMEN UNSPECIFIED EAR] Onset: 01-15-2022 Episodic Other lower respiratory disease (3 sources) Shortness of breath; 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: [SHORTNESS OF BREATH] Onset: 12-28-2021 Episodic Other non-traumatic joint disorders (4 sources) Pain in right hip; 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: [PAIN IN RIGHT HIP] Onset: 04-01-2022 Episodic Phlebitis; thrombophlebitis and thromboembolism (2 sources) Personal history of other venous thrombosis and embolism; 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: [Personal history of other venous thrombosis and embolism] Onset: 09-12-2022 Episodic Results Test Name Value Interpretation Reference Range Facility Office Visiton 07-14-2023 Follow-up visit [id number] Nohelia Bauer Lauren 1940 M Date Provider Department Center 07/14/2023 OREN PEDRO KWASI Borja Family History Problem Relation Age of Onset Coronary artery disease Mother Family Status - Relation Status Age at Mother Level of Service:33621 CT OFFICE/OUTPATIENT ESTABLISHED LOW MDM 20-29 MIN Normal [facility] Office Visiton 03-13-2023 Follow-up visit [id number] Nohelia Bauer Lauren 1940 M Date Provider Department Center 03/13/2023 VargasCARALEATHA Cooper KWASI Valdovinos [facility] Family History Problem Relation Age of Onset Coronary artery disease Mother Family Status - Relation Status Age at Mother Level of Service:47154 CT OFFICE/OUTPATIENT ESTABLISHED MOD MDM 30-39 MIN Normal [facility] PSA, FREE AND TOTAL RATIOon 11-24-2022 % Free PSA 33.9 % Normal [facility] Comment on above: Result Comment: The table below lists th e probability of prostate cancer formen with non-suspicious OC results and total PSA between4 and 10 ng/mL, by patient age (Luc et al, ENRIQUE 1998,279:1542). % Free PSA 50-64 yr 65-75 yr 0.00-10.00% 56% 55% 10.01-15.00% 24% 35% 15.01-20.00% 17% 23% 20.01-25.00% 10% 20% >25.00% 5% 9%Please note: Luc et al did not make specific recommendations regarding the use of percent free PSA for any other population of men. Performed By: #### P SAFREE ####[facility] [address] [place], [place] [address]OhBebo Diaz Prostate specific Ag [Mass/Vol] 6.2 ng/mL Critically high 0.0-4.0 [facility] Comment on above: Result Comment: Aye ECLIA methodology. .According to the [employer], Serum PSA shoulddecrease and remain at undetectable levels after radicalprostatectomy. The AUA defines biochemical recurrence as an initialPSA value 0.2 ng/mL or greater followed by a subsequent confirmatoryPSA value 0.2 ng/mL or greater.Values obtained with different assay methods or kits cannot be usedinterchangeably. Results cannot be interpreted as absolute evidenceof the presence or absence of malignant disease. Performed By: #### P SAFREE ####[facility] [address] [place] [address]Dr. Yuki Diaz PSA, Free 2.10 ng/mL Normal N/A [facility] Comment on above: Result Comment: Aye ECLIA methodology. Performed By: #### P SAFREE ####[facility] [address] [place], [place] [address]Dr. Yuki Diaz CBC AUTO DIFFon 11-23-2022 BASO # 0.0 103/ul Normal 0.0-0.1 [facility] Comment on above: Performed By: #### CBC ####[facility] ital [address] [place], [place] [address]Dr. Yuki Joe Basophils/100 WBC (Bld) 0.3 % Normal 0.2-2.0 [facility] Comment on above: Performed By: #### CBC ####[facility] [address] [place], [place] [address]Dr. Yuki Diaz EO # 0.3 103/ul Normal 0.0-0.7 [facility] Comment on above: Performed By: #### CBC ####[facility] ital [address] [place], [place] [address]Dr. Yuki Diaz Eosinophils/100 WBC (Bld) 4.7 % Normal 0.9-7.0 [facility] Comment on above: Performed By: #### CBC ####[facility] [address] [place], [place] [address]Dr. Monsealyssa Diaz Erythrocyte distribution width (RBC) [Ratio] 15.6 % Critically high 11.0-15.0 [facility] Comment on above: Performed By: #### CBC ####[facility] [address] [place], [place] [address]Dr. Monsealyssa Diaz Hematocrit (Bld) [Volume fraction] 33.5 % Critically low 42.0-54.0 [facility] Comment on above: Performed By: #### CBC ####[facility] [address] [place] [address]DrBebo Diaz Hemoglobin (Bld) [Mass/Vol] 10.0 g/dL Critically low 14.0-18.0 [facility] Comment on above: Performed By: #### CBC ####[facility] [address] [place] [address]DrBebo Diaz IG # 0.03 10e3/ul Normal 0.00-0.03 [facility] Comment on above: Performed By: #### CBC ####[facility] [address] [place], [place] [address]Bebo Diaz IG % 0.5 % Normal 0.0-0.5 [facility] Comment on above: Performed By: #### CBC ####[facility] [address] [place] [address]DrBbeo Diaz LYMPH # 1.5 103/ul Normal 1.2-3.8 [facility] Comment on above: Performed By: #### CBC ####[facility] [address] [place], [place] [address]DrBebo Diaz Lymphocytes/100 WBC (Bld) 22.6 % Normal 20.5-60.0 [facility] Comment on above: Performed By: #### CBC ####[facility] [address] [place] [address]DrBebo Diaz MANUAL DIFF REQ NO Normal [facility] Comment on above: Performed By: #### CBC ####[facility] [address] [place] [address]DrBebo Diaz MCH (RBC) [Entitic mass] 27.9 pg Normal 25.9-34.0 [facility] Comment on above: Performed By: #### CBC ####[facility] [address] [place] [address]DrBebo Diaz MCHC (RBC) [Mass/Vol] 29.9 g/dL Normal 29.9-35.2 [facility] Comment on above: Performed By: #### CBC ####[facility] ital [address] [place] [address]DrBebo Yuki Diaz MCV (RBC) [Entitic vol] 93.6 fL Normal 80.0-94.0 [facility] Comment on above: Performed By: #### CBC ####[facility] ital [address] [place] [address]DrBebo Yuki Joe MONO # 0.8 103/ul Normal 0.3-0.8 [facility] Comment on above: Performed By: #### CBC ####[facility] ital [address] [place] [address]DrBebo Diaz Monocytes/100 WBC (Bld) 12.6 % Critically high 1.7-12.0 [facility] Comment on above: Performed By: #### CBC ####[facility] [address] [place], [place] [address]Dr. Yuki Diaz NEUT # 3.9 103/ul Normal 1.4-6.5 [facility] Comment on above: Performed By: #### CBC ####[facility] [address] [place] [address]DrBebo Monsealyssa Diaz Neutrophils/100 WBC (Bld) 59.3 % Normal 43.0-75.0 [facility] Comment on above: Performed By: #### CBC ####[facility] [address] [place] [address]DrBebo Diaz Platelet mean volume (Bld) [Entitic vol] 10.1 fL Normal 9.5-13.5 [facility] Comment on above: Performed By: #### CBC ####[facility] [address] [place] [address]DrBebo Diaz PLT 231 103/ul Normal 150-450 [facility] Comment on above: Performed By: #### CBC ####[facility] ital [address] [place] [address]DrBebo Diaz RBC 3.58 106/ul Critically low 4.70-6.10 [facility] Comment on above: Performed By: #### CBC ####[facility] ital [address] [place] [address]Dr. Yuki Diaz WBC 6.6 103/ul Normal 4.0-11.0 [facility] Comment on above: Performed By: #### CBC ####[facility] [address] [place] [address]Dr. Yuki Diaz FREE T3on 11-23-2022 FREE T3 2.20 pg/mlL Normal 2.18-3.98 [facility] Comment on above: Performed By: #### CMP, FT3, TSH, T4, LI PID ####[facility] [address] [place] [address]Dr. Yuki Diaz GLYCOHEMOGLOBIN A1Con 2022 ADA RECOMMENDATION SEE BELOW Normal [facility] Comment on above: Result Comment: ADA RECOMMENDED LIMIT 4. 0 - 6.0 ADA THERAPEUTIC TARGET < 7.0 ACTION SUGGESTED > 7.0 Performed By: #### A 1C ####[facility] [address] [place] [address]Dr. Yuki Diaz Glucose [Mass/Vol] 171 mg/dL Normal [facility] Comment on above: Performed By: #### A1C ####[facility] [address] [place] [address]Dr. Yuki Diaz HbA1c (Bld) [Mass fraction] 7.6 % Critically high 4.5-6.2 [facility] Comment on above: Performed By: #### A1C ####[facility] [address]trvadpyca[address] [place] [address]Dr. Yuki Diaz LIPID PROFILEon 11-23-2022 CHOL-HDL RATIO NORM SEE BELOW Normal [facility] Comment on above: Result Comment: 3.3 - 4.4 LOW RISK 4.4 - 7.1 AVERAGE RISK 7.1 - 11.0 MODERATE RISK >11.0 HIGH RISK Performed By: #### C MP, FT3, TSH, T4, LIPID ####[facility] [address]ytdyrgnf[address] [place] [address]Dr. Yuki Diaz Cholesterol [Mass/Vol] 91 mg/dL Normal <=200 [facility] Comment on above: Performed By: #### CMP, FT3, TSH, T4, LI PID ####[facility] Tkmuagkxek[address] [place] [address]Dr. Yuki Diaz Cholesterol in HDL [Mass/Vol] 51 mg/dL Normal 40-60 [facility] Comment on above: Performed By: #### CMP, FT3, TSH, T4, LI PID ####[facility] Sgimghuatw[address] [place] [address]Dr. Yuki Diaz Cholesterol in LDL [Mass/Vol] 27.2 mg/dL Normal [facility] Comment on above: Performed By: #### CMP, FT3, TSH, T4, LI PID ####[facility] Yezuutusrp[address] [place] [address]Dr. Yuki Diaz Cholesterol.tota l/Cholesterol in HDL [Mass ratio] 1.8 {ratio} Normal [facility] Comment on above: Performed By: #### CMP, FT3, TSH, T4, LI PID ####[facility] Ljikhjrtjt[address] [place] [address]Dr. Yuki Diaz HDL NORMAL > or = 60 mg/dl - LO W CARDIOVASCULAR RISK <40 mg/dl - HIGH CARDIOVASCULAR RISK Normal [facility] Comment on above: Performed By: #### CMP, FT3, TSH, T4, LI PID ####[facility] Jk[address]oaeodw[address] [place] [address]Dr. Yuki Diaz LDL CALC NORMAL SEE BELOW Normal [facility] Comment on above: Result Comment: <100 mg/dl OPTIMAL 100 - 129 mg/dl NEAR OR ABOVE OPTIMAL 130 - 159 mg/dl BORDERLINE HIGH 160 - 189 mg/dl HIGH >190 mg/dl VERY HIGH Performed By: #### C MP, FT3, TSH, T4, LIPID ####[facility] Wtlqhphbip[address] [place] [address]Dr. Yuki Diaz Triglyceride [Mass/Vol] 64 mg/dL Normal <=150 [facility] Comment on above: Performed By: #### CMP, FT3, TSH, T4, LI PID ####[facility] Tyhoquxfoo[address] [place] [address]Dr. Yuki Diaz VLDL CALC 12.8 mg/dL Normal [facility] Comment on above: Performed By: #### CMP, FT3, TSH, T4, LI PID ####[facility] Lgwqdoidws6[address] [place] [address]Dr. Yuki Diaz PROF 14(COMP METB)on 023 Albumin [Mass/Vol] 2.9 g/dL Critically low 3.4-5.0 [facility] Comment on above: Performed By: #### CMP, FT3, TSH, T4, LI PID ####[facility] Cznhpxfagl[address] [place] [address]Dr. Yuki Diaz Albumin/Globulin [Mass ratio] 0.7 {ratio} Normal [facility] Comment on above: Performed By: #### CMP, FT3, TSH, T4, LI PID ####[facility] Nftxsyuhjh[address] [place] [address]Dr. Yuki Diaz ALP [Catalytic activity/Vol] 95 U/L Normal 46-116 [facility] Comment on above: Performed By: #### CMP, FT3, TSH, T4, LI PID ####[facility] Nuoivfaxjl[address] [place], [place] [address]Dr. Yuki Diaz ALT [Catalytic activity/Vol] 15 U/L Critically low 16-63 [facility] Comment on above: Performed By: #### CMP, FT3, TSH, T4, LI PID ####[facility] Hshuggsibv[address] [place] [address]Dr. Yuki Diaz Anion gap [Moles/Vol] 13.2 mmol/L Normal [facility] Comment on above: Performed By: #### CMP, FT3, TSH, T4, LI PID ####[facility] Snikmnpbyb[address] [place], [place] [address]Dr. Yuki Diaz AST [Catalytic activity/Vol] 10 U/L Critically low 15-37 [facility] Comment on above: Performed By: #### CMP, FT3, TSH, T4, LI PID ####[facility] Afzsuhjpmy[address] [place] [address]Dr. Yuki Diaz Bilirubin [Mass/Vol] 0.7 mg/dL Normal 0.2-1.0 [facility] Comment on above: Performed By: #### CMP, FT3, TSH, T4, LI PID ####[facility] Alcjfopqao[address] [place], [place] [address]Dr. Yuki Diaz Calcium [Mass/Vol] 8.9 mg/dL Normal 8.5-10.1 [facility] Comment on above: Performed By: #### CMP, FT3, TSH, T4, LI PID ####[facility] Eaeshycpxv25[address] [place], [place] [address]Dr. Yuki Diaz Chloride [Moles/Vol] 105 mmol/L Normal 98-107 [facility] Comment on above: Performed By: #### CMP, FT3, TSH, T4, LI PID ####[facility] Rurqdycalr[address] [place], [place] [address]Dr. Yuki Diaz CO2 [Moles/Vol] 30.0 mmol/L Normal 21.0-32.0 [facility] Comment on above: Performed By: #### CMP, FT3, TSH, T4, LI PID ####[facility] Fxytwqwejj55[address] [place], [place] [address]Dr. Yuki Diaz Creatinine [Mass/Vol] 2.36 mg/dL Critically high 0.70-1.30 [facility] Comment on above: Performed By: #### CMP, FT3, TSH, T4, LI PID ####[facility] Cyxhvaabyg[address] [place], [place] [address]Dr. Yuki Diaz EGFR-AF KENYAN 32 mL/min/1.73m2 Critically low >=60 [facility] Comment on above: Performed By: #### CMP, FT3, TSH, T4, LI PID ####[facility] Dmkoiyhwia[address] [place], [place] [address]Dr. Yuki Diaz EGFR-NON AF KENYAN 27 mL/min/1.73m2 Critically low >=60 [facility] Comment on above: Performed By: #### CMP, FT3, TSH, T4, LI PID ####[facility] Axcowpmnir[address] [place] [address]Dr. Yuki Diaz Globulin (S) [Mass/Vol] 4.2 g/dL Normal [facility] Comment on above: Performed By: #### CMP, FT3, TSH, T4, LI PID ####[facility] Jnlnppahmu37[address] [place], [place] [address]Dr. Yuki Diaz Glucose [Mass/Vol] 96 mg/dL Normal 74-106 [facility] Comment on above: Performed By: #### CMP, FT3, TSH, T4, LI PID ####[facility] Arrkqtwwvd4[address] [place] [address]Dr. Yuki Diaz Potassium [Moles/Vol] 4.2 mmol/L Normal 3.5-5.1 [facility] Comment on above: Performed By: #### CMP, FT3, TSH, T4, LI PID ####[facility] Cgrswnbbxw[address] [place], [place] [address]Dr. Yuki Diaz Protein [Mass/Vol] 7.1 g/dL Normal 6.4-8.2 [facility] Comment on above: Performed By: #### CMP, FT3, TSH, T4, LI PID ####[facility] Awcwmgsmtl[address] [place], [place] [address]Dr. Yuki Diaz Sodium [Moles/Vol] 144 mmol/L Normal 136-145 [facility] Comment on above: Performed By: #### CMP, FT3, TSH, T4, LI PID ####[facility] Cmxnivttwj6[address] [place], [place] [address]Dr. Yuki Diaz Urea nitrogen [Mass/Vol] 28.0 mg/dL Critically high 7.0-18.0 [facility] Comment on above: Performed By: #### CMP, FT3, TSH, T4, LI PID ####[facility] Gcfqnfnamc[address] [place], [place] [address]Dr. Yuki Diaz Urea nitrogen/Creatin ine [Mass ratio] 11.9 mg/mg Normal [facility] Comment on above: Performed By: #### CMP, FT3, TSH, T4, LI PID ####[facility] Wiacvzxyro[address] [place], [place] [id number]. Yuki Diaz T4on 11-23-2022 T4 [Mass/Vol] 7.70 ug/dL Normal 4.50-12.10 [facility] Comment on above: Performed By: #### CMP, FT3, TSH, T4, LI PID ####[facility] Gsidysapxj[address] [place] [address]Dr. Yuki Diaz TSHon 11-23-2022 TSH 2.577 uIU/mL Normal 0.358-3.74 0 [facility] Comment on above: Performed By: #### CMP, FT3, TSH, T4, LI PID ####[facility] Heubqimqyf[address] [place], [place] [address]Dr. Yuki Diaz VITAMIN D 25 OHon 11-23-2022 VIT D 25-OH 35.8 ng/mL Normal [facility] Comment on above: Performed By: #### VITAD, PSASC ####[facility] Rbueknockj[address] [place], [place] [address]Dr. Yuki Diaz VIT D RANGES SEE BELOW Normal [facility] Comment on above: Result Comment: <20 ng/mL Vit D deficien t 20 - <30 ng/mL Vit D insufficient 30 - 100 ng/mL Vit D sufficient >100 ng/mL Potential Toxicity Performed By: #### V ITAD, PSASC ####[facility] Wcmtcpdjkl[address] [place], [place] [address]Dr. Yuki Diaz BNPon 10-27-2022 Natriuretic peptide B (Bld) [Mass/Vol] 6821.0 pg/mL Critically high <=1,800.0 [facility] Comment on above: Performed By: #### CMP, BNP ####[facility] Qllqghfcxn13[address] [place], [place] [address]Dr. Yuki Diaz CBC W MANUAL DIFFon 10-28-19 23 ACANTHOCYTES 1+ Normal [facility] Comment on above: Performed By: #### CBCMAN ####[facility] Mqmkhoyuda[address] [place], [place] [address]Dr. Yuki Diaz ATYPICAL LYMPH # Normal [facility] Comment on above: Performed By: #### CBCMAN ####[facility] Nqqrghkqzz[address] [place] [address]Dr. Yuki Diaz ATYPICAL LYMPH % Normal [facility] Comment on above: Performed By: #### CBCMAN ####[facility] Vbqijnmeku9[address] [place] [address]Dr. Yuki Diaz BAND # 0.0 103/ul Normal 0.0-0.3 [facility] Comment on above: Performed By: #### CBCCHANTE ####[facility] Jtevhfazly26[address] [place] [address]Dr. Yuki Diaz BAND % 0 % Normal 0-5 [facility] Comment on above: Performed By: #### CBCCHANTE ####[facility] Bfomwvdtrc2394 [place] [address]Dr. Yuki Diaz BASOM # 0.00 103/ul Normal 0.00-0.10 [facility] Comment on above: Performed By: #### CBCCHANTE ####[facility] Hxrdrzyioz4890 [place] [address]Dr. Yuki Diaz BASOM % 0.0 % Critically low 0.2-2.0 [facility] Comment on above: Performed By: #### CBCCHANTE ####[facility] Lrfaeuthtl54[address] [place] [address]Dr. Yuki Diaz BLAST # Normal [facility] Comment on above: Performed By: #### CBCCHANTE ####[facility] Ozksywysxv9839 [place] [address]Dr. Yuki Diaz BLAST % Normal [facility] Comment on above: Performed By: #### CBCCHANTE ####[facility] Zmgpvwtjpe4460 [place] [address]Dr. Yuki Diaz CORRECTED WBC Normal 4.0-11.0 [facility] Comment on above: Performed By: #### CBCCHANTE ####[facility] Ypopzehrqu4798 [place] [address]Dr. Yuki Diaz EOS # 0.00 103/ul Normal 0.00-0.70 [facility] Comment on above: Performed By: #### CBCMAN ####[facility] Zeswcsznce3612 [place], [place] [address]Rz. Yuki Diaz EOS% 0.0 % Critically low 0.9-7.0 [facility] Comment on above: Performed By: #### CBCMAN ####[facility] Syyqkbguhb6230 [place], [place] [address]Yk. Yuki Diaz HCT 27.5 % Critically low 42.0-54.0 [facility] Comment on above: Performed By: #### CBCMAN ####[facility] Nmfaaiosps4094 [place], [place] [address]Lx. Yuki Diaz HGB 8.7 g/dl Critically low 14.0-18.0 [facility] Comment on above: Performed By: #### CBCMAN ####[facility] Dubvwogutq8[address] [place] [id number]. Yuki Diaz LYMPHM # 0.81 103/ul Critically low 1.20-3.80 [facility] Comment on above: Performed By: #### CBCMAN ####[facility] Fapxyqwqip7674 [place] [address]Dr. Yuki Diaz LYMPHM% 8.0 % Critically low 20.5-60.0 [facility] Comment on above: Performed By: #### CBCMAN ####[facility] Wdinikcsvl6836 [place] [id number]. Yuki Diaz MCH 28.2 pg Normal 25.9-34.0 [facility] Comment on above: Performed By: #### CBCMAN ####[facility] Yclhsbjbil8317 [place] [id number]. Yuki Diaz MCHC 31.6 g/dl Normal 29.9-35.2 [facility] Comment on above: Performed By: #### CBCMAN ####[facility] Zyscyksrcb3263 [place] [address]Dr. Yuki Diaz MCV 89.0 fL Normal 80.0-94.0 [facility] Comment on above: Performed By: #### CBCMAN ####[facility] Nfptpufxbe6571 [place] [id number]. Yuki Diaz METAMYELOCYTE # Normal [facility] Comment on above: Performed By: #### CBCMAN ####[facility] Ajpsdgcpeu1066 [place], [place] [address]Zu. Yuki Diaz METAMYELOCYTE % Normal [facility] Comment on above: Performed By: #### CBCMAN ####[facility] Mrmxdpkejb7530 [place] [id number]. Yuki Diaz MONOM# 0.40 103/ul Normal 0.30-0.80 [facility] Comment on above: Performed By: #### CBCHCANTE ####[facility] Sbiyjalsip9924 [place] [address]Dr. Yuki Diaz MONOM% 4.0 % Normal 1.7-12.0 [facility] Comment on above: Performed By: #### CBCCHANTE ####[facility] Rtnjhjhhdi0077 [place] [id number]. Yuki Diaz MPV 10.4 fL Normal 9.5-13.5 [facility] Comment on above: Performed By: #### CBCCHANTE ####[facility] Uzsgjugpte4680 [place] [address]Dr. Yuki Diaz MYELOCYTE # Normal [facility] Comment on above: Performed By: #### CBCCHANTE ####[facility] Jtyfosqitp8507 [place] [address]Dr. Yuki Diaz MYELOCYTE % Normal [facility] Comment on above: Performed By: #### CBCCHANTE ####[facility] Ndpznytwtu6766 [place] [id number]. Yuki Diaz NRBC Normal [facility] Comment on above: Performed By: #### CBCCHANTE ####[facility] Oajuzjtyld7847 [place] [id number]. Yuki Diaz PLT 237 103/ul Normal 150-450 [facility] Comment on above: Performed By: #### CBCMAN ####[facility] Szftlfseuj5585 [place], [place] [address]Sw. Yuki Diaz RBC 3.09 106/ul Critically low 4.70-6.10 [facility] Comment on above: Performed By: #### CBCMAN ####[facility] Hvnshszvgi8031 [place], [place] [address]Hc. Yuki Diaz RDW 14.7 % Normal 11.0-15.0 [facility] Comment on above: Performed By: #### CBCMAN ####[facility] Yvqtxxtpbe3514 [place], [place] [address]Bt. Yuki Diaz SEG # 8.89 103/ul Critically high 1.40-6.50 [facility] Comment on above: Performed By: #### CBCMAN ####[facility] Rtdwfkqupi5156 [place] [id number]. Yuki Diaz SEG % 88.0 % Critically high 43.0-75.0 [facility] Comment on above: Performed By: #### CBCMAN ####[facility] Ykytyvyfup6289 [place] [id number]. Yuki Diaz WBC 10.1 103/ul Normal 4.0-11.0 [facility] Comment on above: Performed By: #### CBCMAN ####[facility] Uwayshxuci5504 [place] [id number]. Yuki Diaz POINT OF CARE GLUCOSEon 10-06 Glucose [Mass/Vol] 225 mg/dL Critically high 74-106 [facility] Comment on above: Performed By: #### POCGLUC ####[facility] Uwvkfdjtar1230 [place] [id number]. Yuki Diaz Glucose [Mass/Vol] 214 mg/dL Critically high 74-106 [facility] Comment on above: Performed By: #### POCGLUC ####[facility] Ygomisiwqr4652 [place] [id number]. Yuki Diaz PRBC LEUKOREDUCEDon 10-28-19 23 PRBC LEUKOREDUCED Normal [facility] Comment on above: Performed By: #### PRBC ####[facility] Xlkqoyuefz7493 [place] [address]DrBebo Diaz PROF 14(COMP METB)on 023 Albumin [Mass/Vol] 1.8 g/dL Critically low 3.4-5.0 [facility] Comment on above: Performed By: #### CMP, BNP ####[facility] Ziayfzmhhv[address] [place], [place] [address]DrBebo Diaz Albumin/Globulin [Mass ratio] 0.5 {ratio} Normal [facility] Comment on above: Performed By: #### CMP, BNP ####[facility] Pqdnpxalie11[address] [place], [place] [address]Dr. Yuki Diaz ALP [Catalytic activity/Vol] 66 U/L Normal 46-116 [facility] Comment on above: Performed By: #### CMP, BNP ####[facility] Wjjljtcpce[address] [place], [place] [address]Dr. Yuki Diaz ALT [Catalytic activity/Vol] 13 U/L Critically low 16-63 [facility] Comment on above: Performed By: #### CMP, BNP ####[facility] Wczubkfdcs122[address] [place], [place] [address]DrBebo Diaz Anion gap [Moles/Vol] 11.8 mmol/L Normal [facility] Comment on above: Performed By: #### CMP, BNP ####[facility] Tsiivboypz232[address] [place], [place] [address]Dr. Yuki Diaz AST [Catalytic activity/Vol] 14 U/L Critically low 15-37 [facility] Comment on above: Performed By: #### CMP, BNP ####[facility] Ymsaksfqhd6[address] [place], [place] [address]DrBebo Diaz Bilirubin [Mass/Vol] 0.4 mg/dL Normal 0.2-1.0 [facility] Comment on above: Performed By: #### CMP, BNP ####[facility] Acygjdlowj2838[address] [place], [place] [address]DrBebo Diaz Calcium [Mass/Vol] 8.2 mg/dL Critically low 8.5-10.1 [facility] Comment on above: Performed By: #### CMP, BNP ####[facility] Nchlmlawih[address] [place], [place] [address]Dr. Yuki Diaz Chloride [Moles/Vol] 103 mmol/L Normal 98-107 [facility] Comment on above: Performed By: #### CMP, BNP ####[facility] Eacyrzegha59[address] [place], [place] [address]Dr. Yuki Diaz CO2 [Moles/Vol] 26.7 mmol/L Normal 21.0-32.0 [facility] Comment on above: Performed By: #### CMP, BNP ####[facility] Qjzeyyrwdc070[address] [place], [place] [address]Dr. Yuki Diaz Creatinine [Mass/Vol] 2.62 mg/dL Critically high 0.70-1.30 [facility] Comment on above: Performed By: #### CMP, BNP ####[facility] Eamqgvttxu[address] [place], [place] [address]Dr. Yuki Diaz EGFR-AF KENYAN 29 mL/min/1.73m2 Critically low >=60 [facility] Comment on above: Performed By: #### CMP, BNP ####[facility] Vtvratfnju9[address] [place], [place] [address]Dr. Yuki Diaz EGFR-NON AF KENYAN 24 mL/min/1.73m2 Critically low >=60 [facility] Comment on above: Performed By: #### CMP, BNP ####[facility] Hjlmcgruej4[address] [place], [place] [address]Dr. Yuki Diaz Globulin (S) [Mass/Vol] 3.9 g/dL Normal [facility] Comment on above: Performed By: #### CMP, BNP ####[facility] Dnycpdtgvs[address] [place], [place] [address]Dr. Yuki Diaz Glucose [Mass/Vol] 209 mg/dL Critically high 74-106 [facility] Comment on above: Performed By: #### CMP, BNP ####[facility] Hafgbxpcks74[address] [place], [place] [address]Dr. Yuki Diaz Potassium [Moles/Vol] 4.5 mmol/L Normal 3.5-5.1 [facility] Comment on above: Performed By: #### CMP, BNP ####[facility] Npeywzgvec7560 [place] [address]Dr. Yuki Diaz Protein [Mass/Vol] 5.7 g/dL Critically low 6.4-8.2 [facility] Comment on above: Performed By: #### CMP, BNP ####[facility] Jirpaloucf6869[address] [place], [place] [address]Dr. Yuki Joe Sodium [Moles/Vol] 137 mmol/L Normal 136-145 [facility] Comment on above: Performed By: #### CMP, BNP ####[facility] Zbkbepyzyf[address] [place], [place] [address]Dr. Monsealyssa Joe Urea nitrogen [Mass/Vol] 67.0 mg/dL Critically high 7.0-18.0 [facility] Comment on above: Performed By: #### CMP, BNP ####[facility] Jrdmjbqaiw[address] [place], [place] [address]Dr. Yuki Diaz Urea nitrogen/Creatin ine [Mass ratio] 25.6 mg/mg Normal [facility] Comment on above: Performed By: #### CMP, BNP ####[facility] Yjbbyjfwzd[address] [place], [place] [address]Dr. Yuki Diaz BNPon 10-26-2022 Natriuretic peptide B (Bld) [Mass/Vol] 3539.0 pg/mL Critically high <=1,800.0 [facility] Comment on above: Performed By: #### CMP, BNP ####[facility] Ugxwddflnm[address] [place], [place] [address]Dr. Yuki Joe CBC W MANUAL DIFFon 10-27-19 23 ATYPICAL LYMPH # Normal [facility] Comment on above: Performed By: #### CBCMAN ####[facility] Oikpshfcrp0[address] [place], [place] [address]Dr. Monsealyssa Joe ATYPICAL LYMPH % Normal [facility] Comment on above: Performed By: #### CBCMAN ####[facility] Pjspnzyknj7764 [place] [address]Dr. Yuki Diaz BAND # 0.0 103/ul Normal 0.0-0.3 [facility] Comment on above: Performed By: #### CBCMAN ####[facility] Fchwuwdwak0501 [place] [address]Dr. Yuki Diaz BAND % 0 % Normal 0-5 [facility] Comment on above: Performed By: #### CBCMAN ####[facility] Lysifeilyl4187 [place] [address]Dr. Yialyssa Diaz BASOM # 0.00 103/ul Normal 0.00-0.10 [facility] Comment on above: Performed By: #### CBCMAN ####[facility] Omzrtovqnt3540 [place] [address]Dr. Yuki Diaz BASOM % 0.0 % Critically low 0.2-2.0 [facility] Comment on above: Performed By: #### CBCMAN ####[facility] Cnafdytece4180 [place] [address]Dr. Yuki Diaz BLAST # Normal [facility] Comment on above: Performed By: #### CBCMAN ####[facility] Wyeepjcruv1052 [place] [address]Dr. Yuki Diaz BLAST % Normal [facility] Comment on above: Performed By: #### CBCMAN ####[facility] Sqkgahcjkg4891 [place] [address]Dr. Yuki Diaz CORRECTED WBC Normal 4.0-11.0 [facility] Comment on above: Performed By: #### CBCMAN ####[facility] Xduuvcylop5724 [place] [address]Dr. Yuki Diaz EOS # 0.00 103/ul Normal 0.00-0.70 [facility] Comment on above: Performed By: #### CBCMAN ####[facility] Rouutkfhgo3807 [place] [address]Dr. Yuki Diaz EOS% 0.0 % Critically low 0.9-7.0 [facility] Comment on above: Performed By: #### CBCCHANTE ####[facility] Nvdqlecclc9890 [place], [place] [address]Pb. Yuki Diaz HCT 28.9 % Critically low 42.0-54.0 [facility] Comment on above: Performed By: #### CBCCHANTE ####[facility] Hudwtfchos5986 [place], [place] [address]Pv. Yuki Diaz HGB 9.1 g/dl Critically low 14.0-18.0 [facility] Comment on above: Performed By: #### CBCCHANTE ####[facility] Jhhppvooty6946 [place], [place] [address]Zx. Yuki Diaz LYMPHM # 0.37 103/ul Critically low 1.20-3.80 [facility] Comment on above: Performed By: #### CBCCHANTE ####[facility] Xfuieeepnj7431 [place] [id number]. Yuki Diaz LYMPHM% 3.0 % Critically low 20.5-60.0 [facility] Comment on above: Performed By: #### CBCCHANTE ####[facility] Lzyjlqudvx4043 [place] [id number]. Yuki Diaz MCH 28.4 pg Normal 25.9-34.0 [facility] Comment on above: Performed By: #### CBCCHANTE ####[facility] Hxhrmdczle9046 [place] [id number]. Yuki Diaz MCHC 31.5 g/dl Normal 29.9-35.2 [facility] Comment on above: Performed By: #### CBCCHANTE ####[facility] Dueursumay3313 [place], [place] [address]Yz. Yuki Diaz MCV 90.3 fL Normal 80.0-94.0 [facility] Comment on above: Performed By: #### CBCCHANTE ####[facility] Kawtxawdyf9918 [place] [id number]. Yuki Diaz METAMYELOCYTE # Normal [facility] Comment on above: Performed By: #### CBCCHANTE ####[facility] Nofmsrnszb2220 [place], [place] [address]Yf. Yuki Diaz METAMYELOCYTE % Normal [facility] Comment on above: Performed By: #### CBCCHANTE ####[facility] Oehbvkzklj7261 [place], [place] [address]Sx. Yuki Diaz MONOM# 0.24 103/ul Critically low 0.30-0.80 [facility] Comment on above: Performed By: #### CBCCHANTE ####[facility] Ogvhemautw8616 [place] [address]Dr. Yuki Diaz MONOM% 2.0 % Normal 1.7-12.0 [facility] Comment on above: Performed By: #### CBCCHANTE ####[facility] Smxnjaypsi7169 [place] [address]Dr. Yuki Diaz MPV 10.3 fL Normal 9.5-13.5 [facility] Comment on above: Performed By: #### CBCCHANTE ####[facility] Bujhnoidrm4331 [place] [address]Dr. Yuki Diaz MYELOCYTE # Normal [facility] Comment on above: Performed By: #### CBCCHANTE ####[facility] Hutzfiavjx4552 [place] [address]Dr. Yuki Diaz MYELOCYTE % Normal [facility] Comment on above: Performed By: #### CBCCHANTE ####[facility] Eyazfajytw8291 [place] [id number]. Yuki Diaz NRBC Normal The [facility] Comment on above: Performed By: #### CBCCHANTE ####[facility] ospital Lomohxvzyw8684 [place] [id number]. Yuki Diaz PLT 215 103/ul Normal 150-450 [facility] Comment on above: Performed By: #### CBCCHANTE ####[facility] ospital Mgdcptukyx2495 [place] [id number]. Yuki Diaz RBC 3.20 106/ul Critically low 4.70-6.10 [facility] Comment on above: Performed By: #### CBCMAN ####[facility] ospital Vxagqwezyh5477 [place] [id number]. Yuki Diaz RDW 14.7 % Normal 11.0-15.0 [facility] Comment on above: Performed By: #### CBCMAN ####[facility] ospital Isgpbhmrig9896 [place] [id number]. Yuki Diaz SEG # 11.59 103/ul Critically high 1.40-6.50 [facility] Comment on above: Performed By: #### CBCMAN ####[facility] ospital Cguptsyydg0645 [place] [id number]. Yuki Diaz SEG % 95.0 % Critically high 43.0-75.0 [facility] Comment on above: Performed By: #### CBCMAN ####[facility] ospital Vufmldlhwa4020 [place] [id number]. Yuki Diaz WBC 12.2 103/ul Critically high 4.0-11.0 [facility] Comment on above: Performed By: #### CBCMAN ####[facility] Swxbqhjppd4898 [place] [id number]. Yuki Diaz POINT OF CARE GLUCOSEon 10-06 Glucose [Mass/Vol] 292 mg/dL Critically high 74-106 [facility] Comment on above: Performed By: #### POCGLUC ####[facility] Zdkkzvzkcv6200 [place] [id number]. Yuki Diaz Glucose [Mass/Vol] 194 mg/dL Critically high 74-106 [facility] Comment on above: Performed By: #### POCGLUC ####[facility] Pmunhupwiq9044 [place] [id number]. Yuki Diaz Glucose [Mass/Vol] 280 mg/dL Critically high 74-106 [facility] Comment on above: Performed By: #### POCGLUC ####[facility] Xfhehjzwqd9584 [place] [id number]. Yuki Diaz Glucose [Mass/Vol] 212 mg/dL Critically high 74-106 [facility] Comment on above: Performed By: #### POCGLUC ####[facility] Tvfhsgipeg4397 [place] [address]Dr. Yuki Diaz Glucose [Mass/Vol] 148 mg/dL Critically high 74-106 [facility] Comment on above: Performed By: #### POCGLUC ####[facility] Brqjjgesrr7567 [place] [id number]. Yuki Diaz PRBC LEUKOREDUCEDon 10-27-19 23 PRBC LEUKOREDUCED Normal [facility] Comment on above: Performed By: #### PRBC ####[facility] pital Xfgusmnfnr0046 [place] [address]Dr. Yuki Diaz PROF 14(COMP METB)on 023 Albumin [Mass/Vol] 2.0 g/dL Critically low 3.4-5.0 [facility] Comment on above: Performed By: #### CMP, BNP ####[facility] Vewrjeubfl[address] [place], [place] [address]Dr. Yuki Diaz Albumin/Globulin [Mass ratio] 0.5 {ratio} Normal [facility] Comment on above: Performed By: #### CMP, BNP ####[facility] Iitcqpbjom4[address] [place], [place] [address]Dr. Yuki Diaz ALP [Catalytic activity/Vol] 75 U/L Normal 46-116 [facility] Comment on above: Performed By: #### CMP, BNP ####[facility] Dpohrtrsuq96[address] [place], [place] [address]Dr. Yuki Diaz ALT [Catalytic activity/Vol] 10 U/L Critically low 16-63 [facility] Comment on above: Performed By: #### CMP, BNP ####[facility] Heivdgejxe282[address] [place], [place] [address]Dr. Yuki Diaz Anion gap [Moles/Vol] 13.9 mmol/L Normal [facility] Comment on above: Performed By: #### CMP, BNP ####[facility] Kjulfcgvjd46[address] [place], [place] [address]Dr. Yuki Diaz AST [Catalytic activity/Vol] 13 U/L Critically low 15-37 [facility] Comment on above: Performed By: #### CMP, BNP ####[facility] Zmgtalkili3111 [place] [address]Dr. Yuki Diaz Bilirubin [Mass/Vol] 0.7 mg/dL Normal 0.2-1.0 [facility] Comment on above: Performed By: #### CMP, BNP ####[facility] Osqqfegzpk082[address] [place], [place] [address]Dr. Yuki Diaz Calcium [Mass/Vol] 8.5 mg/dL Normal 8.5-10.1 [facility] Comment on above: Performed By: #### CMP, BNP ####[facility] Jvtnvvgjsa08264[address] [place], [place] [address]Dr. Yuki Diaz Chloride [Moles/Vol] 103 mmol/L Normal 98-107 [facility] Comment on above: Performed By: #### CMP, BNP ####[facility] Eeqrtjqfmr362[address] [place], [place] [address]Dr. Yuki Diaz CO2 [Moles/Vol] 25.8 mmol/L Normal 21.0-32.0 [facility] Comment on above: Performed By: #### CMP, BNP ####[facility] Buftxwkuqr2374[address] [place], [place] [address]Dr. Yuki Diaz Creatinine [Mass/Vol] 2.87 mg/dL Critically high 0.70-1.30 [facility] Comment on above: Performed By: #### CMP, BNP ####[facility] Pqbipbfywn9[address] [place], [place] [address]Dr. Yuki Diaz EGFR-AF KENYAN 26 mL/min/1.73m2 Critically low >=60 [facility] Comment on above: Performed By: #### CMP, BNP ####[facility] Jrzwkuxnzj144[address] [place], [place] [address]Dr. Yuki Diaz EGFR-NON AF KENYAN 21 mL/min/1.73m2 Critically low >=60 [facility] Comment on above: Performed By: #### CMP, BNP ####[facility] Jyplxhgsxk827[address] [place], [place] [address]Dr. Yuki Diaz Globulin (S) [Mass/Vol] 4.0 g/dL Normal [facility] Comment on above: Performed By: #### CMP, BNP ####[facility] Cylmjdjqsa207[address] [place], [place] [address]Dr. Yuki Diaz Glucose [Mass/Vol] 209 mg/dL Critically high 74-106 [facility] Comment on above: Performed By: #### CMP, BNP ####[facility] Dduhsjiieq0459[address] [place], [place] [address]Dr. Yuki Diaz Potassium [Moles/Vol] 4.7 mmol/L Normal 3.5-5.1 [facility] Comment on above: Performed By: #### CMP, BNP ####[facility] Irhwadvjmq866[address] [place], [place] [address]Dr. Yuki Diaz Protein [Mass/Vol] 6.0 g/dL Critically low 6.4-8.2 [facility] Comment on above: Performed By: #### CMP, BNP ####[facility] Tqtmhmiset99024[address] [place], [place] [address]Dr. Yuki Diaz Sodium [Moles/Vol] 138 mmol/L Normal 136-145 [facility] Comment on above: Performed By: #### CMP, BNP ####[facility] Kqakzwmbwp774[address] [place], [place] [address]Dr. Yuki Diaz Urea nitrogen [Mass/Vol] 58.0 mg/dL Critically high 7.0-18.0 [facility] Comment on above: Performed By: #### CMP, BNP ####[facility] Azrchxefmg6[address] [place], [place] [address]Dr. Yuki Diaz Urea nitrogen/Creatin ine [Mass ratio] 20.2 mg/mg Normal [facility] Comment on above: Performed By: #### CMP, BNP ####[facility] Gdwfnsrril198[address] [place], [place] [address]Dr. Monsealyssa Diaz XR KNEE LT 4V or >on 023 XR KNEE LT 4V or > Normal [facility] CBC AUTO DIFFon 10-25-2022 BASO # 0.0 103/ul Normal 0.0-0.1 [facility] Comment on above: Performed By: #### CBC ####[facility] Gwurocihja1491 [place] [address]Dr. Yuki Diaz Basophils/100 WBC (Bld) 0.0 % Critically low 0.2-2.0 [facility] Comment on above: Performed By: #### CBC ####[facility] Ihapzmrpvh5731 [place] [address]Dr. Yuki Diaz EO # 0.0 103/ul Normal 0.0-0.7 [facility] Comment on above: Performed By: #### CBC ####[facility] Ndrgcuplpo0845 [place] [address]Dr. Monsealyssa Diaz Eosinophils/100 WBC (Bld) 0.0 % Critically low 0.9-7.0 [facility] Comment on above: Performed By: #### CBC ####[facility] Swjlkkffvt255[address] [place], [place] [address]Dr. Yuki Diaz Erythrocyte distribution width (RBC) [Ratio] 14.7 % Normal 11.0-15.0 [facility] Comment on above: Performed By: #### CBC ####[facility] Eiprpkcwzc238[address] [place], [place] [address]Dr. Yuki Diaz Hematocrit (Bld) [Volume fraction] 30.9 % Critically low 42.0-54.0 [facility] Comment on above: Performed By: #### CBC ####[facility] Drrfumvlrb778[address] [place], [place] [address]Dr. Monsealyssa Diaz Hemoglobin (Bld) [Mass/Vol] 9.6 g/dL Critically low 14.0-18.0 [facility] Comment on above: Result Comment: pt. rcvd. blood Performed By: #### C BC ####[facility] Zzsutkzrou554[address] [place], [place] [address]Dr. Yuki Diaz IG # 0.06 10e3/ul Critically high 0.00-0.03 [facility] Comment on above: Performed By: #### CBC ####[facility] Mewwjbovss69[address] [place], [place] [address]Dr. Yuki Diaz IG % 0.5 % Normal 0.0-0.5 [facility] Comment on above: Performed By: #### CBC ####[facility] ital Dliqohrprg8090 [place] [address]Dr. Yuki Diaz LYMPH # 0.4 103/ul Critically low 1.2-3.8 [facility] Comment on above: Performed By: #### CBC ####[facility] ital Lqyqblfqlu1383 [place] [address]Dr. Yuki Diaz Lymphocytes/100 WBC (Bld) 3.5 % Critically low 20.5-60.0 [facility] Comment on above: Performed By: #### CBC ####[facility] ital Uzwgoszuhl8707 [place] [address]Dr. Yuki Diaz MANUAL DIFF REQ NO Normal [facility] Comment on above: Performed By: #### CBC ####[facility] ital Qldlhitfff3647 [place] [address]Dr. Yuki Diaz MCH (RBC) [Entitic mass] 28.3 pg Normal 25.9-34.0 [facility] Comment on above: Performed By: #### CBC ####[facility] ital Hxzhdbjqbj8275 [place] [address]Dr. Yuki Diaz MCHC (RBC) [Mass/Vol] 31.1 g/dL Normal 29.9-35.2 [facility] Comment on above: Performed By: #### CBC ####[facility] ital Cbgvxylfcq2641 [place] [address]DrBebo Diaz MCV (RBC) [Entitic vol] 91.2 fL Normal 80.0-94.0 [facility] Comment on above: Performed By: #### CBC ####[facility] ital Fqvmcxsydz6657 [place] [address]DrBebo Diaz MONO # 0.5 103/ul Normal 0.3-0.8 [facility] Comment on above: Performed By: #### CBC ####[facility] ital Nkheuaattg3460 [place] [address]Dr. Yuki Diaz Monocytes/100 WBC (Bld) 4.4 % Normal 1.7-12.0 [facility] Comment on above: Performed By: #### CBC ####[facility] ital Aafkbwpkgt8771 [place] [address]Dr. Yuki Diaz NEUT # 10.8 103/ul Critically high 1.4-6.5 [facility] Comment on above: Performed By: #### CBC ####[facility] ital Fgbuewnmqo1759 [place] [address]Dr. Yuki Diaz Neutrophils/100 WBC (Bld) 91.6 % Critically high 43.0-75.0 [facility] Comment on above: Performed By: #### CBC ####[facility] ital Ktesujheoh9109 [place] [address]Dr. Yuki Diaz Platelet mean volume (Bld) [Entitic vol] 10.1 fL Normal 9.5-13.5 [facility] Comment on above: Performed By: #### CBC ####[facility] ital Buqzxnqqxw5307 [place] [address]Dr. Yuki Diaz PLT 223 103/ul Normal 150-450 [facility] Comment on above: Performed By: #### CBC ####[facility] ital Tjcnqkxmba6481 [place] [address]Dr. Yuki Diaz RBC 3.39 106/ul Critically low 4.70-6.10 [facility] Comment on above: Performed By: #### CBC ####[facility] ital Vsizvnkwxz3284 [place] [address]Dr. Yuki Diaz WBC 11.8 103/ul Critically high 4.0-11.0 [facility] Comment on above: Performed By: #### CBC ####[facility] ital Dblimifwpk5647 [place] [address]Dr. Yuki Diaz BASO # 0.0 103/ul Normal 0.0-0.1 [facility] Comment on above: Performed By: #### CBC ####[facility] ital Nqlenerory8562 [place] [address]Dr. Yuki Diaz Basophils/100 WBC (Bld) 0.1 % Critically low 0.2-2.0 [facility] Comment on above: Performed By: #### CBC ####[facility] ital Mjtfkqobyo1116 [place] [address]Dr. Yuki Diaz EO # 0.0 103/ul Normal 0.0-0.7 [facility] Comment on above: Performed By: #### CBC ####[facility] ital Oxpwfugosz8405 [place] [address]Dr. Yuki Diaz Eosinophils/100 WBC (Bld) 0.2 % Critically low 0.9-7.0 [facility] Comment on above: Performed By: #### CBC ####[facility] ital Cxbxzuengt6527 [place] [address]Dr. Yuki Diaz Erythrocyte distribution width (RBC) [Ratio] 15.1 % Critically high 11.0-15.0 [facility] Comment on above: Performed By: #### CBC ####[facility] Xjmmmukive[address] [place], [place] [address]Dr. Yuki Diaz Hematocrit (Bld) [Volume fraction] 23.7 % Critically low 42.0-54.0 [facility] Comment on above: Performed By: #### CBC ####[facility] Cphikyjtpj43[address] [place], [place] [address]Dr. Yuki Diaz Hemoglobin (Bld) [Mass/Vol] 7.4 g/dL Critically low 14.0-18.0 [facility] Comment on above: Performed By: #### CBC ####[facility] ital Veofjvhyrn2663 [place] [address]Dr. Yuki Diaz IG # 0.07 10e3/ul Critically high 0.00-0.03 [facility] Comment on above: Performed By: #### CBC ####[facility] Dxaupeoneb8227 [place] [address]Dr. Yuki Diaz IG % 0.6 % Critically high 0.0-0.5 [facility] Comment on above: Performed By: #### CBC ####[facility] ital Oaqdszsttz33[address] [place], [place] [address]DrBebo Diaz LYMPH # 0.8 103/ul Critically low 1.2-3.8 [facility] Comment on above: Performed By: #### CBC ####[facility] ital Uozxralfpg8952 [place] [address]DrBebo Diaz Lymphocytes/100 WBC (Bld) 6.6 % Critically low 20.5-60.0 [facility] Comment on above: Performed By: #### CBC ####[facility] ital Wzishlwzuc7836 [place] [address]DrBebo Diaz MANUAL DIFF REQ NO Normal [facility] Comment on above: Performed By: #### CBC ####[facility] ital Odjmpbojac8559 [place] [address]DrBebo Diaz MCH (RBC) [Entitic mass] 28.1 pg Normal 25.9-34.0 [facility] Comment on above: Performed By: #### CBC ####[facility] ital Kjxpfylswz9421 [place] [address]Dr. Yuki Diaz MCHC (RBC) [Mass/Vol] 31.2 g/dL Normal 29.9-35.2 [facility] Comment on above: Performed By: #### CBC ####[facility] ital Qyukzzzrek8120 [place] [address]DrBebo Diaz MCV (RBC) [Entitic vol] 90.1 fL Normal 80.0-94.0 [facility] Comment on above: Performed By: #### CBC ####[facility] ital Cisjgzvzny4422 [place] [address]DrBebo Diaz MONO # 1.5 103/ul Critically high 0.3-0.8 [facility] Comment on above: Performed By: #### CBC ####[facility] ital Yujfxikeoj1259 [place] [address]DrBebo Diaz Monocytes/100 WBC (Bld) 11.5 % Normal 1.7-12.0 [facility] Comment on above: Performed By: #### CBC ####[facility] ital Ixxwqoirja9330 [place] [address]DrBebo Diaz NEUT # 10.2 103/ul Critically high 1.4-6.5 [facility] Comment on above: Performed By: #### CBC ####[facility] ital Planxxrnlr4251 [place] [address]Dr. Yuki Diaz Neutrophils/100 WBC (Bld) 81.0 % Critically high 43.0-75.0 [facility] Comment on above: Performed By: #### CBC ####[facility] ital Aljcearxtj3662 [place] [address]Dr. Yuki Diaz Platelet mean volume (Bld) [Entitic vol] 10.7 fL Normal 9.5-13.5 [facility] Comment on above: Performed By: #### CBC ####[facility] ital Bdvfoymwku4719 [place] [address]Dr. Yuki Diaz PLT 204 103/ul Normal 150-450 [facility] Comment on above: Performed By: #### CBC ####[facility] Kjcykrskbn6973 [place] [address]Dr. Yuki Diaz RBC 2.63 106/ul Critically low 4.70-6.10 [facility] Comment on above: Performed By: #### CBC ####[facility] Jnapdqlgns2538 [place] [address]Dr. Yuki Diaz WBC 12.6 103/ul Critically high 4.0-11.0 [facility] Comment on above: Performed By: #### CBC ####[facility] Jktchasawh7626 [place] [address]Dr. Y[address] Diaz CT ABD/PELVIS WO CONon 10-25 CT ABD/PELVIS WO CON Normal [facility] CT PELVIS WO CONon 3 CT PELVIS WO CON Normal [facility] POINT OF CARE GLUCOSEon 10-06 Glucose [Mass/Vol] 65 mg/dL Critically low 74-106 [facility] Comment on above: Performed By: #### POCGLUC ####[facility] Hudsgoqykw3101 [place] [address]Dr. Yuki Diaz Glucose [Mass/Vol] 137 mg/dL Critically high 74-106 [facility] Comment on above: Performed By: #### POCGLUC ####[facility] Stiumlftwg4540 [place] [address]Dr. Yuki Diaz Glucose [Mass/Vol] 118 mg/dL Critically high 74-106 [facility] Comment on above: Performed By: #### POCGLUC ####[facility] Bejryjddyj3146 [place] [address]Dr. Yuki Diaz PROF 14(COMP METB)on 023 Albumin [Mass/Vol] 2.2 g/dL Critically low 3.4-5.0 [facility] Comment on above: Performed By: #### CMP ####[facility] ital Nsmpagwbcl8571 [place] [address]Dr. Yuki Diaz Albumin/Globulin [Mass ratio] 0.6 {ratio} Normal [facility] Comment on above: Performed By: #### CMP ####[facility] ital Fjdpmidfhx2550 [place] [address]Dr. Yuki Diaz ALP [Catalytic activity/Vol] 64 U/L Normal 46-116 [facility] Comment on above: Performed By: #### CMP ####[facility] ital Wrnhyqdkvz2703 [place] [address]Dr. Yuki Diaz ALT [Catalytic activity/Vol] 11 U/L Critically low 16-63 [facility] Comment on above: Performed By: #### CMP ####[facility] ital Gfmjbyotbg5462 [place] [address]Dr. Yuki Diaz Anion gap [Moles/Vol] 13.5 mmol/L Normal [facility] Comment on above: Performed By: #### CMP ####[facility] ital Xpieahgsyc8148 [place] [address]Dr. Yuki Diaz AST [Catalytic activity/Vol] 12 U/L Critically low 15-37 [facility] Comment on above: Performed By: #### CMP ####[facility] ital Fgtqcvnets6915 [place] [address]Dr. Yuki Diaz Bilirubin [Mass/Vol] 0.8 mg/dL Normal 0.2-1.0 [facility] Comment on above: Performed By: #### CMP ####[facility] ital Cwsamcjrvw9650 [place] [address]Dr. Yuki Diaz Calcium [Mass/Vol] 8.5 mg/dL Normal 8.5-10.1 [facility] Comment on above: Performed By: #### CMP ####[facility] ital Qodakdiama8332 [place] [address]Dr. Yuki Diaz Chloride [Moles/Vol] 100 mmol/L Normal 98-107 [facility] Comment on above: Performed By: #### CMP ####[facility] ital Oaakydbrfz3741 [place] [address]Dr. Yuki Diaz CO2 [Moles/Vol] 28.1 mmol/L Normal 21.0-32.0 [facility] Comment on above: Performed By: #### CMP ####[facility] ital Ntbqsuiqno0842 [place] [address]Dr. Yuki Diaz Creatinine [Mass/Vol] 2.93 mg/dL Critically high 0.70-1.30 [facility] Comment on above: Performed By: #### CMP ####[facility] ital Upbyxcafxt1968 [place] [address]Dr. Yuki Diaz EGFR-AF KENYAN 25 mL/min/1.73m2 Critically low >=60 [facility] Comment on above: Performed By: #### CMP ####[facility] Pqzodeiftd3620 [place] [address]Dr. Yuki Diaz EGFR-NON AF KENYAN 21 mL/min/1.73m2 Critically low >=60 [facility] Comment on above: Performed By: #### CMP ####[facility] ital Sudagxpgnl9029 [place] [address]Dr. Yuki Diaz Globulin (S) [Mass/Vol] 3.7 g/dL Normal [facility] Comment on above: Performed By: #### CMP ####[facility] ital Qwovvhyekv1017 [place] [address]Dr. Yuki Diaz Glucose [Mass/Vol] 112 mg/dL Critically high 74-106 [facility] Comment on above: Performed By: #### CMP ####[facility] Tfgigvnled9613 [place] [address]Dr. Yuki Diaz Potassium [Moles/Vol] 4.6 mmol/L Normal 3.5-5.1 [facility] Comment on above: Performed By: #### CMP ####[facility] Stuwrojtjs5449 [place] [address]Dr. Yuki Diaz Protein [Mass/Vol] 5.9 g/dL Critically low 6.4-8.2 [facility] Comment on above: Performed By: #### CMP ####[facility] Pltqgarvdy8118 [place] [address]Dr. Yuki Diaz Sodium [Moles/Vol] 137 mmol/L Normal 136-145 [facility] Comment on above: Performed By: #### CMP ####[facility] Guzbrgpcfy0974 [place] [address]Dr. Yuki Diaz Urea nitrogen [Mass/Vol] 56.0 mg/dL Critically high 7.0-18.0 [facility] Comment on above: Performed By: #### CMP ####[facility] Nqelhzmagk1576 [place] [address]Dr. Yuki Diaz Urea nitrogen/Creatin ine [Mass ratio] 19.1 mg/mg Normal [facility] Comment on above: Performed By: #### CMP ####[facility] Uounsrsfhy2281 [place] [address]Dr. Monsealyssa Joe TYPE AND SCREENon 10-25-2022 TYPE AND SCREEN Negative Normal [facility] Comment on above: Performed By: #### TNS ####[facility] Ehfpzbnzmv4014 [place] [address]Dr. Yuki Diaz XR CHEST 1 Von 10-25-2022 XR CHEST 1 V Normal [facility] CBC AUTO DIFFon 10-24-2022 BASO # 0.0 103/ul Normal 0.0-0.1 [facility] Comment on above: Performed By: #### CBC ####[facility] Agwgiyfzhg1034 [place] [address]Dr. Yuki Diaz Basophils/100 WBC (Bld) 0.1 % Critically low 0.2-2.0 [facility] Comment on above: Performed By: #### CBC ####[facility] ital Ppqokepchm[address] Yuki Diaz EO # 0.0 103/ul Normal 0.0-0.7 [facility] Comment on above: Performed By: #### CBC ####[facility] Iwzjdcrcvc[address] [place] [address]. Yuki Diaz Eosinophils/100 WBC (Bld) 0.0 % Critically low 0.9-7.0 [facility] Comment on above: Performed By: #### CBC ####[facility] Sxdjknkbcc[address] [place] [address]. Yuki Diaz Erythrocyte distribution width (RBC) [Ratio] 15.2 % Critically high 11.0-15.0 [facility] Comment on above: Performed By: #### CBC ####[facility] Joooycpvpf[address] [place] [address]. Yuki Diaz Hematocrit (Bld) [Volume fraction] 27.4 % Critically low 42.0-54.0 [facility] Comment on above: Performed By: #### CBC ####[facility] Pucdklnpcq64[address] [place] [address]. Yuki Diaz Hemoglobin (Bld) [Mass/Vol] 8.4 g/dL Critically low 14.0-18.0 [facility] Comment on above: Performed By: #### CBC ####[facility] Btnjxayhus[address] [place] [address]. Yuki Diaz IG # 0.13 10e3/ul Critically high 0.00-0.03 [facility] Comment on above: Performed By: #### CBC ####[facility] Lkvpikefgd11[address] [place] [address]. Yuki Diaz IG % 0.7 % Critically high 0.0-0.5 [facility] Comment on above: Performed By: #### CBC ####[facility] Eaxibugvog[address] [place], [place] [address]DrBeob Diaz LYMPH # 1.0 103/ul Critically low 1.2-3.8 [facility] Comment on above: Performed By: #### CBC ####[facility] ital Igvcegquwu3884 [place] [address]DrBebo Diaz Lymphocytes/100 WBC (Bld) 5.5 % Critically low 20.5-60.0 [facility] Comment on above: Performed By: #### CBC ####[facility] ital Gmudwntcpk3918 [place] [address]DrBebo Diaz MANUAL DIFF REQ NO Normal [facility] Comment on above: Performed By: #### CBC ####[facility] Nxboipbgjj9422 [place] [address]DrBebo Diaz MCH (RBC) [Entitic mass] 27.8 pg Normal 25.9-34.0 [facility] Comment on above: Performed By: #### CBC ####[facility] Uwzfmkpasf8[address] [place], [place] [address]DrBebo Diaz MCHC (RBC) [Mass/Vol] 30.7 g/dL Normal 29.9-35.2 [facility] Comment on above: Performed By: #### CBC ####[facility] Zzoemnkgdp1216 [place] [address]DrBebo Diaz MCV (RBC) [Entitic vol] 90.7 fL Normal 80.0-94.0 [facility] Comment on above: Performed By: #### CBC ####[facility] Xclrtrxumn9453 [place] [address]DrBebo Diaz MONO # 2.8 103/ul Critically high 0.3-0.8 [facility] Comment on above: Performed By: #### CBC ####[facility] Zupgaejpmi5584 [place] [address]DrBebo Diaz Monocytes/100 WBC (Bld) 15.0 % Critically high 1.7-12.0 [facility] Comment on above: Performed By: #### CBC ####[facility] ital Wzdjzdrkbo20[address] [place], [place] [address]DrBebo Diaz NEUT # 14.9 103/ul Critically high 1.4-6.5 [facility] Comment on above: Performed By: #### CBC ####[facility] Rmmjxhlwvo5667 [place] [address]DrBebo Yuki Diaz Neutrophils/100 WBC (Bld) 78.7 % Critically high 43.0-75.0 [facility] Comment on above: Performed By: #### CBC ####[facility] Mlmokcbqfx0360 [place] [address]DrBebo Yuki Diaz Platelet mean volume (Bld) [Entitic vol] 10.8 fL Normal 9.5-13.5 [facility] Comment on above: Performed By: #### CBC ####[facility] Nslkbohbcr8396 [place] [address]DrBebo Yuki Diaz PLT 212 103/ul Normal 150-450 [facility] Comment on above: Performed By: #### CBC ####[facility] Wcbdouudhf4902 [place] [address]DrBebo Yuki Diaz RBC 3.02 106/ul Critically low 4.70-6.10 [facility] Comment on above: Performed By: #### CBC ####[facility] Iwxwifjmak8795 [place] [address]DrBebo Yuki Diaz WBC 18.9 103/ul Critically high 4.0-11.0 [facility] Comment on above: Performed By: #### CBC ####[facility] Vsnapistvs[address] [place] [address]DrBebo Yuki Diaz CT KNEE RT WO CONon 10-25-19 CT KNEE RT WO CON Normal [facility] POINT OF CARE GLUCOSEon 10-06 Glucose [Mass/Vol] 110 mg/dL Critically high 74-106 [facility] Comment on above: Performed By: #### POCGLUC ####[facility] Dtbxjgxylq5623 [place] [address]DrBebo Sheaalyssa Diaz Glucose [Mass/Vol] 134 mg/dL Critically high 74-106 [facility] Comment on above: Performed By: #### POCGLUC ####[facility] Iufinqbven[address] [place] [address]Dr. Yuki Diaz PROF 14(COMP METB)on 023 Albumin [Mass/Vol] 2.8 g/dL Critically low 3.4-5.0 [facility] Comment on above: Performed By: #### CMP ####[facility] ital Dsadncpipw12[address] [place] [address]Dr. Yuki Diaz Albumin/Globulin [Mass ratio] 0.8 {ratio} Normal [facility] Comment on above: Performed By: #### CMP ####[facility] ital Ptndnlqvbu38[address] [place] [address]Dr. Yuki Diaz ALP [Catalytic activity/Vol] 89 U/L Normal 46-116 [facility] Comment on above: Performed By: #### CMP ####[facility] ital Bywlefcexf75[address] [place] [address]Dr. Yuki Diaz ALT [Catalytic activity/Vol] 10 U/L Critically low 16-63 [facility] Comment on above: Performed By: #### CMP ####[facility] ital Svdjranbsx4270 [place] [address]Dr. Yuki Diaz Anion gap [Moles/Vol] 11.7 mmol/L Normal [facility] Comment on above: Performed By: #### CMP ####[facility] ital Nyzozphekf75[address] [place] [address]Dr. Yuki Diaz AST [Catalytic activity/Vol] 12 U/L Critically low 15-37 [facility] Comment on above: Performed By: #### CMP ####[facility] ital Gjojfjvbsc[address] [place], [place] [address]Dr. Yuki Diaz Bilirubin [Mass/Vol] 0.9 mg/dL Normal 0.2-1.0 [facility] Comment on above: Performed By: #### CMP ####[facility] ital Hniewxslje8281 [place] [address]Dr. Yuki Diaz Calcium [Mass/Vol] 8.7 mg/dL Normal 8.5-10.1 [facility] Comment on above: Performed By: #### CMP ####[facility] ital Trtzzxcrnw6271 [place] [address]Dr. Yuki Diaz Chloride [Moles/Vol] 102 mmol/L Normal 98-107 [facility] Comment on above: Performed By: #### CMP ####[facility] ital Bmhxsbcmtb6741 [place] [address]Dr. Yuki Diaz CO2 [Moles/Vol] 29.1 mmol/L Normal 21.0-32.0 [facility] Comment on above: Performed By: #### CMP ####[facility] ital Rckgcvftll4742 [place] [address]Dr. Yuki Diaz Creatinine [Mass/Vol] 2.75 mg/dL Critically high 0.70-1.30 [facility] Comment on above: Performed By: #### CMP ####[facility] Otgokbbfqa25[address] [place] [address]Dr. Yuki Diaz EGFR-AF KENYAN 27 mL/min/1.73m2 Critically low >=60 [facility] Comment on above: Performed By: #### CMP ####[facility] Jhtglsvzcs3196 [place] [address]Dr. Yuki Diaz EGFR-NON AF KENYAN 22 mL/min/1.73m2 Critically low >=60 [facility] Comment on above: Performed By: #### CMP ####[facility] Dbdlohszsv5036 [place] [address]Dr. Yuki Diaz Globulin (S) [Mass/Vol] 3.7 g/dL Normal [facility] Comment on above: Performed By: #### CMP ####[facility] Ioavedrbqh36[address] [place] [address]Dr. Yuki Diaz Glucose [Mass/Vol] 121 mg/dL Critically high 74-106 [facility] Comment on above: Performed By: #### CMP ####[facility] ital Iwynqddebm0434 [place] [address]Dr. Yuki Diaz Potassium [Moles/Vol] 4.8 mmol/L Normal 3.5-5.1 [facility] Comment on above: Performed By: #### CMP ####[facility] Nipaeshdnp5160 [place] [address]Dr. Yuki Diaz Protein [Mass/Vol] 6.5 g/dL Normal 6.4-8.2 [facility] Comment on above: Performed By: #### CMP ####[facility] ital Ozimyplree9246 [place] [address]Dr. Yuki Joe Sodium [Moles/Vol] 138 mmol/L Normal 136-145 [facility] Comment on above: Performed By: #### CMP ####[facility] ital Vsckgnpkqs3110 [place] [address]Dr. Yuki Joe Urea nitrogen [Mass/Vol] 39.0 mg/dL Critically high 7.0-18.0 [facility] Comment on above: Performed By: #### CMP ####[facility] Ykcchtblov8125 [place] [address]Dr. Yuki Diaz Urea nitrogen/Creatin ine [Mass ratio] 14.2 mg/mg Normal [facility] Comment on above: Performed By: #### CMP ####[facility] Advzruhquy7205 [place] [address]Dr. Yuki Joe US KIDNEYS BLADDERon 023 US KIDNEYS BLADDER Normal [facility] XR CHEST 1 Von 10-24-2022 XR CHEST 1 V Normal [facility] CBC AUTO DIFFon 10-23-2022 BASO # 0.0 103/ul Normal 0.0-0.1 [facility] Comment on above: Performed By: #### CBC ####[facility] Dgtfbmqeus45[address] [place] [address]Dr. Yuki Joe Basophils/100 WBC (Bld) 0.1 % Critically low 0.2-2.0 [facility] Comment on above: Performed By: #### CBC ####[facility] Kajbtbblia3713 [place] [address]Dr. Yuki Diaz EO # 0.1 103/ul Normal 0.0-0.7 [facility] Comment on above: Performed By: #### CBC ####[facility] Pljpbdzeqj8060 [place] [address]Dr. Yuki Diaz Eosinophils/100 WBC (Bld) 0.4 % Critically low 0.9-7.0 [facility] Comment on above: Performed By: #### CBC ####[facility] Bytgjpyvyy0859 [place] [address]Dr. Yuki Diaz Erythrocyte distribution width (RBC) [Ratio] 15.0 % Normal 11.0-15.0 [facility] Comment on above: Performed By: #### CBC ####[facility] ital Isjgcacnct1316 [place] [address]Dr. Yuki Diaz Hematocrit (Bld) [Volume fraction] 29.8 % Critically low 42.0-54.0 [facility] Comment on above: Performed By: #### CBC ####[facility] Uwavofwxrd5569 [place] [address]Dr. Yuki Diaz Hemoglobin (Bld) [Mass/Vol] 9.1 g/dL Critically low 14.0-18.0 [facility] Comment on above: Performed By: #### CBC ####[facility] Uhzlhgazrv[address] [place], [place] [address]Dr. Yuki Diaz IG # 0.07 10e3/ul Critically high 0.00-0.03 [facility] Comment on above: Performed By: #### CBC ####[facility] Gfgfeeygtt4631 [place] [address]Dr. Yuki Diaz IG % 0.5 % Normal 0.0-0.5 [facility] Comment on above: Performed By: #### CBC ####[facility] Mcetxpahpk4868 [place] [address]Dr. Yuki Diaz LYMPH # 1.0 103/ul Critically low 1.2-3.8 [facility] Comment on above: Performed By: #### CBC ####[facility] Yujxhinayl[address] [place], [place] [address]Dr. Yuki Diaz Lymphocytes/100 WBC (Bld) 7.8 % Critically low 20.5-60.0 [facility] Comment on above: Performed By: #### CBC ####[facility] Edzsiifnwc9273 [place] [address]Dr. Yuki Diaz MANUAL DIFF REQ NO Normal [facility] Comment on above: Performed By: #### CBC ####[facility] Dogzngleit2616 [place] [address]Dr. Yuki Diaz MCH (RBC) [Entitic mass] 27.9 pg Normal 25.9-34.0 [facility] Comment on above: Performed By: #### CBC ####[facility] Ymukvscspz6382 [place] [address]Dr. Yuki Diaz MCHC (RBC) [Mass/Vol] 30.5 g/dL Normal 29.9-35.2 [facility] Comment on above: Performed By: #### CBC ####[facility] Lqfmksbwji2418 [place] [address]Dr. Monsealyssa Diaz MCV (RBC) [Entitic vol] 91.4 fL Normal 80.0-94.0 [facility] Comment on above: Performed By: #### CBC ####[facility] Kgzsoxggws0452 [place] [address]Dr. Yuki Joe MONO # 2.1 103/ul Critically high 0.3-0.8 [facility] Comment on above: Performed By: #### CBC ####[facility] Krhqbbcmae6100 [place] [address]Dr. Monsealyssa Diaz Monocytes/100 WBC (Bld) 16.0 % Critically high 1.7-12.0 [facility] Comment on above: Performed By: #### CBC ####[facility] Wpctezoduq6866 [place] [address]Dr. Yuki Diaz NEUT # 10.1 103/ul Critically high 1.4-6.5 [facility] Comment on above: Performed By: #### CBC ####[facility] Bwtbwnnpvz9464 [place] [address]Dr. Yuki Diaz Neutrophils/100 WBC (Bld) 75.2 % Critically high 43.0-75.0 [facility] Comment on above: Performed By: #### CBC ####[facility] Lslptcqutd3356 [place] [address]Dr. Yuki Diaz Platelet mean volume (Bld) [Entitic vol] 10.3 fL Normal 9.5-13.5 [facility] Comment on above: Performed By: #### CBC ####[facility] Tparfjjcaq8394 [place] [address]Dr. Yuki Diaz PLT 255 103/ul Normal 150-450 [facility] Comment on above: Performed By: #### CBC ####[facility] Xnxnxrinca1022 [place] [address]Dr. Yuki Diaz RBC 3.26 106/ul Critically low 4.70-6.10 [facility] Comment on above: Performed By: #### CBC ####[facility] Sumxjbvvjf9185 [place] [address]Dr. Yuki Diaz WBC 13.4 103/ul Critically high 4.0-11.0 [facility] Comment on above: Performed By: #### CBC ####[facility] Xpdofgmtsh[address] [place], [place] [address]Dr. Yuki Diaz CULTURE BLOODon 10-23-2022 Microscopic examination of blood, culture Culture Observations: NO GROWTH AT 5 DAYS. Normal [facility] Comment on above: Performed By: #### BLDCX1 ####[facility] Ufnxwyitjy8[address] [place], [place] [address]Dr. Yuki Diaz Performed By: #### B LDCX2 ####[facility] Rgyuzhcbnx05[address] [place], [place] [address]Dr. Yuki Diaz CULTURE URINEon 10-23-2022 CULTURE URINE Culture Observations : NO GROWTH. Normal [facility] Comment on above: Performed By: #### URCX ####[facility] Tovzbmtlmu2904[address] [place], [place] [address]Dr. Yuki Diaz Covid-19 PCR (CVDTB)on 10-05 SARS-CoV-2 (COVID-19) RNA JARVIS+probe Ql (Unsp spec) Not detected Normal NOT DETECTED [facility] Comment on above: Result Comment: When diagnostic testing is negative, the possibility of a false negative should be considered inthe context of a patient's recent exposures and the presence of clinical signs and symptomsconsistent with SARS-CoV-2.This test is not yet approved or cleared by the [place] FDA. When there are no FDA-approved or cleared tests available, and other criteria are met, FDA can make tests available under an emergency access mechanism called an Emergency Use Authorization (EUA). The EUA for this test is supported by the Costing Manager of Health and Human Service's declaration that circumstances exist to justify the emergency use of in vitro diagnostics for the detection and/or diagnosis of the virus that causes COVID-19. This EUA will remain in effect for the duration of the COVID-19 declaration justifying emergency of IVDs, unless it is terminated or revoked by the FDA (after which the test may no longer be used). Performed By: #### [facility] ####[facility] Dkpmxqapeb89[address] [place], [place] [address]Dr. Yuki Diaz ER URINE PROFILEon 3 Bilirubin Ql (U) Negative Normal NEGATIVE [facility] Comment on above: Performed By: #### HAKAN CAZARESRO ####[facility] Dtelnxyxuj1830[address] [place], [place] [address]Dr. Yuki Diaz Clarity (U) CLEAR Normal CLEAR [facility] Comment on above: Performed By: #### SAGE UMICRO ####[facility] Mtssfoymzo1733[address] [place], [place] [address]Dr. Yuki Diaz Color (U) YELLOW Normal YELLOW [facility] Comment on above: Performed By: #### HAKAN CAZARESRO ####[facility] Iminjvsrbx13[address] [place], [place] [address]Dr. Yuki WESTAHD A micrscopic examina tion will be performed if indicated. Normal [facility] Comment on above: Performed By: #### HAKAN CAZARESRO ####[facility] Tjrpkvbmyh8474[address] [place], [place] [address]Dr. Yuki Diaz Glucose Ql (U) Negative Normal NEGATIVE [facility] Comment on above: Performed By: #### HAKAN CAZARESRO ####[facility] Uljebxdouu2328 [place] [address]Dr. Ykui Diaz Hemoglobin Ql (U) SMALL Abnormal NEGATIVE [facility] Comment on above: Performed By: #### MARCELLO CAZARES ####[facility] Brxmceokcs8928 [place] [address]Dr. Yuki Diaz Ketones Ql (U) Negative Normal NEGATIVE [facility] Comment on above: Performed By: #### HAKAN CAZARESRO ####[facility] Xzpuzrxbhi6168[address] [place], [place] [address]Dr. Yuki Diaz LEUKOCYTES Negative Normal NEGATIVE [facility] Comment on above: Performed By: #### HAKAN CAZARESRO ####[facility] Gjskwweqec1388[address] [place], [place] [address]Dr. Yuki Diaz Nitrite Ql (U) Negative Normal NEGATIVE [facility] Comment on above: Performed By: #### MARCELLO CAZARES ####[facility] Foccemnyry357[address] [place], [place] [address]Dr. Yuki Diaz pH (U) 7.0 [pH] Normal 5-9 [facility] Comment on above: Performed By: #### MARCELLO CAZARES ####[facility] Ttbtdlwbxq8247[address] [place], [place] [address]Dr. Yuki Diaz Protein (U) [Mass/Vol] 30 mg/dL Abnormal NEGATIVE/ TRACE [facility] Comment on above: Performed By: #### MARCELLO CAZARES ####[facility] Enjumdwomk4832[address] [place], [place] [address]Dr. Yuki Diaz SPEC GRAVITY 1.010 Normal 1.005-<=1. 025 [facility] Comment on above: Performed By: #### HAKAN CAZARESRO ####[facility] Hvzzhtfrsa[address] [place], [place] [address]Dr. Yuki Diaz UR MICRO IND INDICATED Normal [facility] Comment on above: Performed By: #### HAKAN CAZARESRO ####[facility] Jxreokchdk3364 [place] [address]Dr. Yuki Diaz Urobilinogen Qn (U) 1.0 {Chidi'U}/dL Normal 0.2 - 1.0 [facility] Comment on above: Performed By: #### ERUR, HAKANRO ####[facility] Djacrsnfxc9424[address] [place], [place] [address]Dr. Yuki Diaz INFLUENZA A AND B AGon 10-23 INFLUANEGH SEE BELOW Normal [facility] Comment on above: Result Comment: Negative for Flu A prote in angiten. Infection due to Flu A cannot be ruled out. Flu A angiten in the sample may be below the detection limit of the test. Performed By: #### I NFLUAB ####[facility] Hrmhxkiihf027[address] [place], [place] [address]Dr. Yuki Diaz INFLUBNEGH SEE BELOW Normal [facility] Comment on above: Result Comment: Negative for Flu B prote in antigen. Infection due to Flu B cannot be ruled out. Flu B antigen in the sample may be below the detection limit of the test. Performed By: #### I NFLUAB ####[facility] Hhskvxzcnl9810[address] [place], [place] [address]Dr. Yuki Diaz INFLUENZA A AG Negative Normal NEGATIVE SEE COMMENT [facility] Comment on above: Performed By: #### INFLUAB ####[facility] Idmadvusui3060[address] [place], [place] [address]Dr. Monsealyssa Diaz INFLUENZA B AG Negative Normal NEGATIVE SEE COMMENT [facility] Comment on above: Performed By: #### INFLUAB ####[facility] Ahrgidpyqt9[address] [place], [place] [address]Dr. Monsealyssa Diaz LACTATE/LACTIC ACIDon 2022 Lactate [Moles/Vol] 1.3 mmol/L Normal 0.4-2.0 [facility] Comment on above: Performed By: #### LACT ####[facility] Pysdudubca58[address] [place], [place] [address]Dr. Yuki Diaz Lactate [Moles/Vol] 1.6 mmol/L Normal 0.4-2.0 [facility] Comment on above: Performed By: #### LACT ####[facility] Etafrsyydm0830[address] [place], [place] [address]Dr. Yuki Diaz Lactate [Moles/Vol] 1.5 mmol/L Normal 0.4-2.0 [facility] Comment on above: Performed By: #### LACT ####[facility] pital Zatfplaide15[address] [place], [place] [address]Dr. Yuki Diaz POINT OF CARE GLUCOSEon 10-05 Glucose [Mass/Vol] 127 mg/dL Critically high 74-106 [facility] Comment on above: Performed By: #### POCGLUC ####[facility] Frcccfvwag0416[address] [place], [place] [address]Dr. Yuki Diaz Glucose [Mass/Vol] 145 mg/dL Critically high 74-106 [facility] Comment on above: Performed By: #### POCGLUC ####[facility] Vlyikijrwo046[address] [place], [place] [address]Dr. Yuki Diaz PROF 14(COMP METB)on 023 Albumin [Mass/Vol] 3.4 g/dL Normal 3.4-5.0 [facility] Comment on above: Performed By: #### CMP ####[facility] ital Euadotwrtu1857[address] [place], [place] [address]Dr. Yuki Diaz Albumin/Globulin [Mass ratio] 0.8 {ratio} Normal [facility] Comment on above: Performed By: #### CMP ####[facility] ital Sivejurdtx1438[address] [place], [place] [address]Dr. Yuki Diaz ALP [Catalytic activity/Vol] 100 U/L Normal 46-116 [facility] Comment on above: Performed By: #### CMP ####[facility] ital Ftajghamlk2767 [place] [address]Dr. Yuki Diaz ALT [Catalytic activity/Vol] 15 U/L Critically low 16-63 [facility] Comment on above: Performed By: #### CMP ####[facility] ital Obkqpdrfsb1211[address] [place], [place] [address]Dr. Yuki Diaz Anion gap [Moles/Vol] 14.2 mmol/L Normal [facility] Comment on above: Performed By: #### CMP ####[facility] ital Lhhhqhbmmv289[address] [place], [place] [address]Dr. Yuki Diaz AST [Catalytic activity/Vol] 12 U/L Critically low 15-37 [facility] Comment on above: Performed By: #### CMP ####[facility] ital Dbpgxwcnza3755 [place] [address]Dr. Yuki Diaz Bilirubin [Mass/Vol] 0.8 mg/dL Normal 0.2-1.0 [facility] Comment on above: Performed By: #### CMP ####[facility] ital Dnxoyvjmcj3343 [place] [address]Dr. Yuki Diaz Calcium [Mass/Vol] 9.0 mg/dL Normal 8.5-10.1 [facility] Comment on above: Performed By: #### CMP ####[facility] Qbpywhkbhv[address] [place], [place] [address]Dr. Yuki Diaz Chloride [Moles/Vol] 101 mmol/L Normal 98-107 [facility] Comment on above: Performed By: #### CMP ####[facility] Nslutoliay5372 [place] [address]Dr. Yuki Diaz CO2 [Moles/Vol] 30.3 mmol/L Normal 21.0-32.0 [facility] Comment on above: Performed By: #### CMP ####[facility] Xevqnlbkkg767[address] [place], [place] [address]Dr. Yuki Diaz Creatinine [Mass/Vol] 2.86 mg/dL Critically high 0.70-1.30 [facility] Comment on above: Performed By: #### CMP ####[facility] Enyypxvsti6728 [place] [address]Dr. Monsealyssa Joe EGFR-AF KENYAN 26 mL/min/1.73m2 Critically low >=60 [facility] Comment on above: Performed By: #### CMP ####[facility] Zqtjfadmry80[address] [place], [place] [address]Dr. Monsealyssa Joe EGFR-NON AF KENYAN 21 mL/min/1.73m2 Critically low >=60 [facility] Comment on above: Performed By: #### CMP ####[facility] ital Tlqmfdvdon494[address] [place], [place] [address]Dr. Yuki Diaz Globulin (S) [Mass/Vol] 4.1 g/dL Normal [facility] Comment on above: Performed By: #### CMP ####[facility] Icubaenood3782 [place] [address]Dr. Yuki Diaz Glucose [Mass/Vol] 153 mg/dL Critically high 74-106 [facility] Comment on above: Performed By: #### CMP ####[facility] Ynljbpkjkb5713 [place] [address]Dr. Yuki Joe Potassium [Moles/Vol] 4.5 mmol/L Normal 3.5-5.1 [facility] Comment on above: Performed By: #### CMP ####[facility] Bxhqnmrmzy3962 [place] [address]Dr. Yuki Diaz Protein [Mass/Vol] 7.5 g/dL Normal 6.4-8.2 [facility] Comment on above: Performed By: #### CMP ####[facility] Txytbkfcgx6378 [place] [address]Dr. Yuki Joe Sodium [Moles/Vol] 141 mmol/L Normal 136-145 [facility] Comment on above: Performed By: #### CMP ####[facility] Rrqbnnfced0762 [place] [address]Dr. Yuki Joe Urea nitrogen [Mass/Vol] 40.0 mg/dL Critically high 7.0-18.0 [facility] Comment on above: Performed By: #### CMP ####[facility] Gbytphnsox[address] [place] [address]Dr. Yuki Joe Urea nitrogen/Creatin ine [Mass ratio] 14.0 mg/mg Normal [facility] Comment on above: Performed By: #### CMP ####[facility] Hnwirtydug5770 [place] [address]Dr. Yuki Joe URINE MICROSCOPIC ONLYon BACTERIA NONE SEEN Normal NONE SEEN [facility] Comment on above: Performed By: #### MARCELLO CAZARES ####[facility] Fbpmtufokd1543 [place] [address]Dr. Yuki Diaz Bacteria identified Cx Nom (U) CX ALREADY ORDERED Normal [facility] Comment on above: Performed By: #### SAGE UMICRO ####[facility] Dlwlyvgpem0953 [place] [address]Dr. Yuki Diaz CAST NONE SEEN Normal NONE SEEN [facility] Comment on above: Performed By: #### SAGE UMICRO ####[facility] Ucnfpbselr8718 [place] [address]Dr. Yuki Diaz Crystals LM Nom (Urine sed) NONE SEEN Normal NONE SEEN [facility] Comment on above: Performed By: #### SAGE UMICRO ####[facility] Rhvbvdpvwt0448 [place] [address]Dr. Yuki Diaz Epithelial cells LM Ql (Urine sed) NONE SEEN Normal NONE SEEN /RARE [facility] Comment on above: Performed By: #### SAGE UMICRO ####[facility] Zotfauhsll9456 [place] [address]Dr. Yuki Diaz MUCOUS NONE SEEN Normal NONE SEEN [facility] Comment on above: Performed By: #### SAGE UMICRO ####[facility] Wixwsezpyy6[address] [place], [place] [address]Dr. Yuki Diaz RBC 0-2 Normal 0-2 [facility] Comment on above: Performed By: #### SAGE UMICRO ####[facility] Dmdnemjnso9167[address] [place], [place] [address]Dr. Yuki Diaz WBC NONE SEEN Normal NONE SEEN [facility] Comment on above: Performed By: #### SAGE UMICRO ####[facility] Baeqgfegdx513[address] [place], [place] [address]Dr. Yuki Diaz XR KNEE RT 4V or >on 023 XR KNEE RT 4V or > Normal [facility] XR HAND LT MIN 3Von 10-23-19 23 XR HAND LT MIN 3V Normal [facility] BNPon 10-13-2022 Natriuretic peptide B (Bld) [Mass/Vol] 1093.0 pg/mL Normal <=1,800.0 [facility] Comment on above: Performed By: #### BMP, BNP ####[facility] Ddindrmjqn5949 [place] [address]Dr. Yuki Diaz PROF CHEM 8 (BAS METB)on Anion gap [Moles/Vol] 9.7 mmol/L Normal [facility] Comment on above: Performed By: #### BMP, BNP ####[facility] Bqijkezuor15[address] [place], [place] [address]Dr. Yuki Diaz Calcium [Mass/Vol] 8.6 mg/dL Normal 8.5-10.1 [facility] Comment on above: Performed By: #### BMP, BNP ####[facility] Zjeaqgbfst12[address] [place], [place] [address]Dr. Yuki Diaz Chloride [Moles/Vol] 105 mmol/L Normal 98-107 [facility] Comment on above: Performed By: #### BMP, BNP ####[facility] Lnabatccos59[address] [place], [place] [address]Dr. Yuki Diaz CO2 [Moles/Vol] 31.1 mmol/L Normal 21.0-32.0 [facility] Comment on above: Performed By: #### BMP, BNP ####[facility] Bdmvqzsjln8[address] [place], [place] [address]Dr. Yuki Diaz Creatinine [Mass/Vol] 2.46 mg/dL Critically high 0.70-1.30 [facility] Comment on above: Performed By: #### BMP, BNP ####[facility] Cnsydzcanm5[address] [place], [place] [address]Dr. Yuki Diaz EGFR-AF KENYAN 31 mL/min/1.73m2 Critically low >=60 [facility] Comment on above: Performed By: #### BMP, BNP ####[facility] Qscegsvpug8[address] [place], [place] [address]Dr. Yuki Diaz EGFR-NON AF KENYAN 25 mL/min/1.73m2 Critically low >=60 [facility] Comment on above: Performed By: #### BMP, BNP ####[facility] Lntbaujmmw232[address] [place], [place] [address]Dr. Yuki Diaz Glucose [Mass/Vol] 155 mg/dL Critically high 74-106 [facility] Comment on above: Performed By: #### BMP, BNP ####[facility] Cmhgicfrdz6481 [place] [address]Dr. Yuki Diaz Potassium [Moles/Vol] 3.8 mmol/L Normal 3.5-5.1 [facility] Comment on above: Performed By: #### BMP, BNP ####[facility] Uyjtnakkbj16[address] [place] [id number]. Yuki Diaz Sodium [Moles/Vol] 142 mmol/L Normal 136-145 [facility] Comment on above: Performed By: #### BMP, BNP ####[facility] Qdbfjxvlre3362 [place] [id number]. Yuki Diaz Urea nitrogen [Mass/Vol] 37.0 mg/dL Critically high 7.0-18.0 [facility] Comment on above: Performed By: #### BMP, BNP ####[facility] Fzadrhdrnv0097 [place] [address]Dr. Yuki Diaz Urea nitrogen/Creatin ine [Mass ratio] 15.0 mg/mg Normal [facility] Comment on above: Performed By: #### BMP, BNP ####[facility] Iltelmpijp2864 [place], [place] [address]Ra. Yuki Diaz Provider Letteron 09-20-2022 Provider Letter (Inserted Image. Alice ble to display) September 20, 2022 SHENG B[address]ER [address] [place] [id number] SHENG BAUER 1940 Dear Sheng , You missed your scheduled appointment on: 09/20/22 with Tasha Orozco PA-C and the purpose of this letter is to inform you of our *No Show Policy*. Our appointment slots fill rapidly and when we have a no show appointment that time is lost. We could have used that time slot to care for a patient who needed to see one of our providers. Therefore, we ask that you call 24 hours in advance to cancel your appointment. This policy is in place so that we can meet the needs of all of our patients and we do appreciate your understanding. Sincerely, [facility] [address], [address] [place] [address] Normal [facility] BNPon 09-19-2022 Natriuretic peptide B (Bld) [Mass/Vol] 1200.0 pg/mL Normal <=1,800.0 [facility] Comment on above: Performed By: #### CMP, BNP ####[facility] Lppxrryxjp4[address] [place] [address]DrBebo Diaz PROF 14(COMP METB)on 023 Albumin [Mass/Vol] 3.2 g/dL Critically low 3.4-5.0 [facility] Comment on above: Performed By: #### CMP, BNP ####[facility] Gqoinhlajz6186 [place] [address]DrBebo Diaz Albumin/Globulin [Mass ratio] 0.8 {ratio} Normal [facility] Comment on above: Performed By: #### CMP, BNP ####[facility] Tigliopzkw6523 [place] [address]Dr. Yuki Diaz ALP [Catalytic activity/Vol] 93 U/L Normal 46-116 [facility] Comment on above: Performed By: #### CMP, BNP ####[facility] Lvraiyzxke0308 [place] [address]Dr. Yuki Diaz ALT [Catalytic activity/Vol] 16 U/L Normal 16-63 [facility] Comment on above: Performed By: #### CMP, BNP ####[facility] Pyvzhdfylc6801 [place] [address]DrBebo Diaz Anion gap [Moles/Vol] 13.6 mmol/L Normal [facility] Comment on above: Performed By: #### CMP, BNP ####[facility] Paxppdkvdn7410 [place] [address]Dr. Yuki Diaz AST [Catalytic activity/Vol] 13 U/L Critically low 15-37 [facility] Comment on above: Performed By: #### CMP, BNP ####[facility] Aizgvuuxlf8266 [place] [address]Dr. Yuki Diaz Bilirubin [Mass/Vol] 0.5 mg/dL Normal 0.2-1.0 [facility] Comment on above: Performed By: #### CMP, BNP ####[facility] [address] [place], [place] [address]Dr. Yuki Diaz Calcium [Mass/Vol] 8.9 mg/dL Normal 8.5-10.1 [facility] Comment on above: Performed By: #### CMP, BNP ####[facility] Puqyvbidzk[address] [place], [place] [address]Dr. Yuki Diaz Chloride [Moles/Vol] 107 mmol/L Normal 98-107 [facility] Comment on above: Performed By: #### CMP, BNP ####[facility] Ofzelmplae09[address] [place], [place] [address]Dr. Yuki Diaz CO2 [Moles/Vol] 28.7 mmol/L Normal 21.0-32.0 [facility] Comment on above: Performed By: #### CMP, BNP ####[facility] Nutxinthkn[address] [place], [place] [address]Dr. Yuki Diaz Creatinine [Mass/Vol] 2.61 mg/dL Critically high 0.70-1.30 [facility] Comment on above: Performed By: #### CMP, BNP ####[facility] Koeeixkvff[address] [place], [place] [address]Dr. Yuki Diaz EGFR-AF KENYAN 29 mL/min/1.73m2 Critically low >=60 [facility] Comment on above: Performed By: #### CMP, BNP ####[facility] Rdyvgmwzts[address] [place], [place] [address]Dr. Yuki Diaz EGFR-NON AF KENYAN 24 mL/min/1.73m2 Critically low >=60 [facility] Comment on above: Performed By: #### CMP, BNP ####[facility] Hapcyffdia7[address] [place], [place] [address]Dr. Yuki Diaz Globulin (S) [Mass/Vol] 4.0 g/dL Normal [facility] Comment on above: Performed By: #### CMP, BNP ####[facility] Qntikdggsy223[address] [place], [place] [address]Dr. Yuki Diaz Glucose [Mass/Vol] 119 mg/dL Critically high 74-106 [facility] Comment on above: Performed By: #### CMP, BNP ####[facility] Csyghrlcpq6454 [place] [address]Dr. Yuki Diaz Potassium [Moles/Vol] 4.3 mmol/L Normal 3.5-5.1 [facility] Comment on above: Performed By: #### CMP, BNP ####[facility] Thkphqykxv4706 [place] [address]Dr. Yuki Diaz Protein [Mass/Vol] 7.2 g/dL Normal 6.4-8.2 [facility] Comment on above: Performed By: #### CMP, BNP ####[facility] Vzumirrlrb3895 [place] [address]Dr. Yuki Diaz Sodium [Moles/Vol] 145 mmol/L Normal 136-145 [facility] Comment on above: Performed By: #### CMP, BNP ####[facility] Mbwwvafbtx7998 [place] [address]Dr. Yuki Diaz Urea nitrogen [Mass/Vol] 42.0 mg/dL Critically high 7.0-18.0 [facility] Comment on above: Performed By: #### CMP, BNP ####[facility] Ctanfugvub8408 [place] [address]Dr. Yuki Diaz Urea nitrogen/Creatin ine [Mass ratio] 16.1 mg/mg Normal [facility] Comment on above: Performed By: #### CMP, BNP ####[facility] Ctfqbkdluj4623 [place] [address]Dr. Yuki Diaz Office Visiton 09-12-2022 Follow-up visit [id number] Nohelia Bauer 1940 M Date Provider Department Center 09/12/2022 OREN PEDRO [facility] Family History Problem Relation Age of Onset Coronary artery disease Mother Family Status - Relation Status Age at Mother Level of Service:04541 CT OFFICE/OUTPATIENT ESTABLISHED LOW MDM 20-29 MIN Reason for Visit and Comments: Congestive Heart Failure [127] Coronary Artery Disease [187] Hypertension [473004] Normal [facility] BNPon 09-02-2022 Natriuretic peptide B (Bld) [Mass/Vol] 1506.0 pg/mL Normal <=1,800.0 [facility] Comment on above: Performed By: #### CMP, BNP ####[facility] Lvmhsnswen6997 [place] [address]Dr. Yuki Diaz PROF 14(COMP METB)on 023 Albumin [Mass/Vol] 3.0 g/dL Critically low 3.4-5.0 [facility] Comment on above: Performed By: #### CMP, BNP ####[facility] Ngfsdgealb70[address] [place], [place] [address]Dr. Yuki Diaz Albumin/Globulin [Mass ratio] 0.8 {ratio} Normal [facility] Comment on above: Performed By: #### CMP, BNP ####[facility] Segmxxhtxa5733[address] [place], [place] [address]Dr. Yuki Diaz ALP [Catalytic activity/Vol] 89 U/L Normal 46-116 [facility] Comment on above: Performed By: #### CMP, BNP ####[facility] Ijvcfxdxkf25[address] [place], [place] [address]Dr. Yuki Diaz ALT [Catalytic activity/Vol] 17 U/L Normal 16-63 [facility] Comment on above: Performed By: #### CMP, BNP ####[facility] Moujkgknrr738[address] [place], [place] [address]Dr. Yuki Diaz Anion gap [Moles/Vol] 12.2 mmol/L Normal [facility] Comment on above: Performed By: #### CMP, BNP ####[facility] Afxophqqze3387[address] [place], [place] [address]Dr. Yuki Diaz AST [Catalytic activity/Vol] 13 U/L Critically low 15-37 [facility] Comment on above: Performed By: #### CMP, BNP ####[facility] Cuquxqeqpu330[address] [place], [place] [address]Dr. Yuki Diaz Bilirubin [Mass/Vol] 0.4 mg/dL Normal 0.2-1.0 [facility] Comment on above: Performed By: #### CMP, BNP ####[facility] Wrywgxpbds015[address] [place], [place] [address]Dr. Yuki Diaz Calcium [Mass/Vol] 8.8 mg/dL Normal 8.5-10.1 [facility] Comment on above: Performed By: #### CMP, BNP ####[facility] Hyhyxkakuf594[address] [place], [place] [address]Dr. Yuki Diaz Chloride [Moles/Vol] 104 mmol/L Normal 98-107 [facility] Comment on above: Performed By: #### CMP, BNP ####[facility] Spnmigthqm166[address] [place], [place] [address]Dr. Yuki Diaz CO2 [Moles/Vol] 31.4 mmol/L Normal 21.0-32.0 [facility] Comment on above: Performed By: #### CMP, BNP ####[facility] Uwfykoihdj1569[address] [place], [place] [address]Dr. Yuki Diaz Creatinine [Mass/Vol] 2.76 mg/dL Critically high 0.70-1.30 [facility] Comment on above: Performed By: #### CMP, BNP ####[facility] Ytturkndre6630[address] [place], [place] [address]Dr. Yuki Diaz EGFR-AF KENYAN 27 mL/min/1.73m2 Critically low >=60 [facility] Comment on above: Performed By: #### CMP, BNP ####[facility] Qxrrngvepu6175[address] [place], [place] [address]Dr. Yuki Diaz EGFR-NON AF KENYAN 22 mL/min/1.73m2 Critically low >=60 [facility] Comment on above: Performed By: #### CMP, BNP ####[facility] Jqrpdggrwa7785[address] [place], [place] [address]Dr. Yuki Diaz Globulin (S) [Mass/Vol] 3.8 g/dL Normal [facility] Comment on above: Performed By: #### CMP, BNP ####[facility] Ixicyefjks3145[address] [place], [place] [address]Dr. Yuki Diaz Glucose [Mass/Vol] 200 mg/dL Critically high 74-106 [facility] Comment on above: Performed By: #### CMP, BNP ####[facility] Wvhvwrgaoo1295 [place] [address]Dr. Yuki Diaz Potassium [Moles/Vol] 4.6 mmol/L Normal 3.5-5.1 [facility] Comment on above: Performed By: #### CMP, BNP ####[facility] Avvypmgyxb4287[address] [place], [place] [address]Dr. Yuki Diaz Protein [Mass/Vol] 6.8 g/dL Normal 6.4-8.2 [facility] Comment on above: Performed By: #### CMP, BNP ####[facility] Dicxwojqnf3894[address] [place], [place] [address]Dr. Yuki Diaz Sodium [Moles/Vol] 143 mmol/L Normal 136-145 [facility] Comment on above: Performed By: #### CMP, BNP ####[facility] Aufbylugmo023[address] [place], [place] [address]Dr. Yuki Diaz Urea nitrogen [Mass/Vol] 44.0 mg/dL Critically high 7.0-18.0 [facility] Comment on above: Performed By: #### CMP, BNP ####[facility] Yaooencdou6865[address] [place], [place] [address]Dr. Yuki Diaz Urea nitrogen/Creatin ine [Mass ratio] 15.9 mg/mg Normal [facility] Comment on above: Performed By: #### CMP, BNP ####[facility] Wkwxjngyap18[address] [place], [place] [address]Dr. Yuki Diaz ECHOCARDIO M/2D COMPLETEon 1 09-20-2021 ECHOCARDIO M/2D COMPLETE Normal [facility] Lab Reportson 06-15-2022 Lab Reports [id number]:[id number] Normal [facility] PROF 14(COMP METB)on 022 Albumin [Mass/Vol] 3.0 g/dL Critically low 3.4-5.0 [facility] Comment on above: Performed By: #### CMP ####[facility] Wyjfgqevqg[address] [place], [place] [address]Dr. Yuki Diaz Albumin/Globulin [Mass ratio] 0.9 {ratio} Normal [facility] Comment on above: Performed By: #### CMP ####[facility] Zdppbihgdr4522 [place] [address]Dr. Yuki Diaz ALP [Catalytic activity/Vol] 73 U/L Normal 46-116 [facility] Comment on above: Performed By: #### CMP ####[facility] Bdmujjgare7294 [place] [address]Dr. Yuki Diaz ALT [Catalytic activity/Vol] 21 U/L Normal 16-63 [facility] Comment on above: Performed By: #### CMP ####[facility] Ushqiuhiis7063 [place] [address]Dr. Yuki Diaz Anion gap [Moles/Vol] 8.5 mmol/L Normal [facility] Comment on above: Performed By: #### CMP ####[facility] Zokmmtxklo2567 [place] [address]Dr. Yuki Diaz AST [Catalytic activity/Vol] 11 U/L Critically low 15-37 [facility] Comment on above: Performed By: #### CMP ####[facility] Qmeaywnkhm6999 [place] [address]Dr. Yuki Diaz Bilirubin [Mass/Vol] 0.6 mg/dL Normal 0.2-1.0 [facility] Comment on above: Performed By: #### CMP ####[facility] Rxvhcqlniu8139 [place] [address]Dr. Yuki Diaz Calcium [Mass/Vol] 8.7 mg/dL Normal 8.5-10.1 [facility] Comment on above: Performed By: #### CMP ####[facility] Sbbvpygepx1701 [place] [address]Dr. Yuki Diaz Chloride [Moles/Vol] 104 mmol/L Normal 98-107 [facility] Comment on above: Performed By: #### CMP ####[facility] Dwtqrgcosi4417 [place] [address]Dr. Yuki Joe CO2 [Moles/Vol] 32.7 mmol/L Critically high 21.0-32.0 [facility] Comment on above: Performed By: #### CMP ####[facility] Cqikhjriqc5498 [place] [address]Dr. Yuki Diaz Creatinine [Mass/Vol] 2.43 mg/dL Critically high 0.70-1.30 [facility] Comment on above: Performed By: #### CMP ####[facility] Sbkkhfysab2346 [place] [address]Dr. Yuki Diaz EGFR-AF KENYAN 31 mL/min/1.73m2 Critically low >=60 [facility] Comment on above: Performed By: #### CMP ####[facility] Gcvqpkrong7099 [place] [address]Dr. Yuki Diaz EGFR-NON AF KENYAN 26 mL/min/1.73m2 Critically low >=60 [facility] Comment on above: Performed By: #### CMP ####[facility] Gudvfbadmu7085 [place] [address]Dr. Yuki Diaz Globulin (S) [Mass/Vol] 3.4 g/dL Normal [facility] Comment on above: Performed By: #### CMP ####[facility] Jbphrnjwcj6384 [place] [address]Dr. Yuki Diaz Glucose [Mass/Vol] 155 mg/dL Critically high 74-106 [facility] Comment on above: Performed By: #### CMP ####[facility] Gmnrfaiewa9984 [place] [address]Dr. Yuki Diaz Potassium [Moles/Vol] 4.2 mmol/L Normal 3.5-5.1 [facility] Comment on above: Performed By: #### CMP ####[facility] Xegcncpufs2049 [place] [id number]. Yuki Diaz Protein [Mass/Vol] 6.4 g/dL Normal 6.4-8.2 [facility] Comment on above: Performed By: #### CMP ####[facility] Khhpwsfhut5108 [place] [id number]. Yuki Diaz Sodium [Moles/Vol] 141 mmol/L Normal 136-145 [facility] Comment on above: Performed By: #### CMP ####[facility] Loicfqhyyq0317 [place] [address]Dr. Yuki Diaz Urea nitrogen [Mass/Vol] 47.0 mg/dL Critically high 7.0-18.0 [facility] Comment on above: Performed By: #### CMP ####[facility] Fqbjbvazra4493 [place] [address]Dr. Yuki Diaz Urea nitrogen/Creatin ine [Mass ratio] 19.3 mg/mg Normal [facility] Comment on above: Performed By: #### CMP ####[facility] Mikhwxsabi6663 [place] [address]Dr. Yuki Diaz PROF 14(COMP METB)on 022 Albumin [Mass/Vol] 2.9 g/dL Critically low 3.4-5.0 [facility] Comment on above: Performed By: #### CMP ####[facility] Lipbdnmaer7401 [place] [address]Dr. Yuki Diaz Albumin/Globulin [Mass ratio] 0.8 {ratio} Normal [facility] Comment on above: Performed By: #### CMP ####[facility] Vypjwfihaf1975 [place] [address]Dr. Yuki Diaz ALP [Catalytic activity/Vol] 86 U/L Normal 46-116 [facility] Comment on above: Performed By: #### CMP ####[facility] Lfcuqslzjq4841 [place] [address]Dr. Yuki Diaz ALT [Catalytic activity/Vol] 27 U/L Normal 16-63 [facility] Comment on above: Performed By: #### CMP ####[facility] Bjmlsisroh7083 [place] [address]Dr. Yuki Diaz Anion gap [Moles/Vol] 11.5 mmol/L Normal [facility] Comment on above: Performed By: #### CMP ####[facility] Adbxncseca8708 [place] [address]Dr. Yuki Diaz AST [Catalytic activity/Vol] 10 U/L Critically low 15-37 [facility] Comment on above: Performed By: #### CMP ####[facility] Rccjiybvfb0614 [place] [id number]. Yuki Diaz Bilirubin [Mass/Vol] 0.5 mg/dL Normal 0.2-1.0 [facility] Comment on above: Performed By: #### CMP ####[facility] Lvjdurncpg4437 [place] [id number]. Yuki Diaz Calcium [Mass/Vol] 8.6 mg/dL Normal 8.5-10.1 [facility] Comment on above: Performed By: #### CMP ####[facility] Prsbtvqjrb4444 [place] [address]Dr. Yuki Joe Chloride [Moles/Vol] 108 mmol/L Critically high 98-107 [facility] Comment on above: Performed By: #### CMP ####[facility] Kzvpdpuujx1334 [place] [address]Dr. Yuki Joe CO2 [Moles/Vol] 28.0 mmol/L Normal 21.0-32.0 [facility] Comment on above: Performed By: #### CMP ####[facility] Squjmmyecz4550 [place] [address]Dr. Yuki Joe Creatinine [Mass/Vol] 2.58 mg/dL Critically high 0.70-1.30 [facility] Comment on above: Performed By: #### CMP ####[facility] Qiwzarvenv2822 [place] [address]Dr. Yuki Joe EGFR-AF KENYAN 29 mL/min/1.73m2 Critically low >=60 [facility] Comment on above: Performed By: #### CMP ####[facility] Uaoksvizip5519 [place] [id number]. Yuki Diaz EGFR-NON AF KENYAN 24 mL/min/1.73m2 Critically low >=60 [facility] Comment on above: Performed By: #### CMP ####[facility] Nocirxsaeo5051 [place] [id number]. Yuki Diaz Globulin (S) [Mass/Vol] 3.5 g/dL Normal [facility] Comment on above: Performed By: #### CMP ####[facility] Czgycehsmb8215 [place] [address]Dr. Yuki Diaz Glucose [Mass/Vol] 136 mg/dL Critically high 74-106 [facility] Comment on above: Performed By: #### CMP ####[facility] Pulxzsvhjr2628 [place] [address]Dr. Yuki Diaz Potassium [Moles/Vol] 4.5 mmol/L Normal 3.5-5.1 [facility] Comment on above: Performed By: #### CMP ####[facility] Jdgmoipzrg7653 [place] [address]Dr. Yuki Diaz Protein [Mass/Vol] 6.4 g/dL Normal 6.4-8.2 [facility] Comment on above: Performed By: #### CMP ####[facility] Oxgeuthtzj2180 [place] [address]Dr. Yuki Diaz Sodium [Moles/Vol] 143 mmol/L Normal 136-145 [facility] Comment on above: Performed By: #### CMP ####[facility] Asenoagqjp9193 [place] [address]Dr. Yuki Diaz Urea nitrogen [Mass/Vol] 48.0 mg/dL Critically high 7.0-18.0 [facility] Comment on above: Performed By: #### CMP ####[facility] Uwtfirmmpd1900 [place] [address]Dr. Yuki Diaz Urea nitrogen/Creatin ine [Mass ratio] 18.6 mg/mg Normal [facility] Comment on above: Performed By: #### CMP ####[facility] Jgrtdftkme0775 [place] [address]DrBebo Diaz PROF 14(COMP METB)on 022 Albumin [Mass/Vol] 3.2 g/dL Critically low 3.4-5.0 [facility] Comment on above: Performed By: #### CMP ####[facility] Ivvkiwaaie2605 [place] [address]Dr. Yuki Diaz Albumin/Globulin [Mass ratio] 0.9 {ratio} Normal [facility] Comment on above: Performed By: #### CMP ####[facility] Jnkwermpbb2265 [place] [address]Dr. Yuki Diaz ALP [Catalytic activity/Vol] 89 U/L Normal 46-116 [facility] Comment on above: Performed By: #### CMP ####[facility] Lytcwaqabn4467 [place] [address]Dr. Yuki Diaz ALT [Catalytic activity/Vol] 113 U/L Critically high 16-63 [facility] Comment on above: Performed By: #### CMP ####[facility] Htpnlbefgh3165 [place] [address]Dr. Yuki Diaz Anion gap [Moles/Vol] 10.8 mmol/L Normal [facility] Comment on above: Performed By: #### CMP ####[facility] Bbytgaxngs4577 [place] [address]Dr. Yuki Diaz AST [Catalytic activity/Vol] 32 U/L Normal 15-37 [facility] Comment on above: Performed By: #### CMP ####[facility] Cywtoujjux8766 [place] [address]Dr. Yuki Diaz Bilirubin [Mass/Vol] 0.7 mg/dL Normal 0.2-1.0 [facility] Comment on above: Performed By: #### CMP ####[facility] Tebdybxpbz1753 [place] [address]Dr. Yuki Diaz Calcium [Mass/Vol] 8.8 mg/dL Normal 8.5-10.1 [facility] Comment on above: Performed By: #### CMP ####[facility] Ztvbwgtihr7502 [place] [address]Dr. Yuki Diaz Chloride [Moles/Vol] 106 mmol/L Normal 98-107 [facility] Comment on above: Performed By: #### CMP ####[facility] Xcpaijjoyb7542 [place] [address]Dr. Yuki Joe CO2 [Moles/Vol] 30.4 mmol/L Normal 21.0-32.0 [facility] Comment on above: Performed By: #### CMP ####[facility] Nyxreilzpa1680 [place] [id number]. Yuki Diaz Creatinine [Mass/Vol] 2.54 mg/dL Critically high 0.70-1.30 [facility] Comment on above: Performed By: #### CMP ####[facility] Gdnrvmjsmt2550 [place] [address]Dr. Yuki Diaz EGFR-AF KENYAN 30 mL/min/1.73m2 Critically low >=60 [facility] Comment on above: Performed By: #### CMP ####[facility] Mxtrlqfhya9448 [place] [address]Dr. Yuki Diaz EGFR-NON AF KENYAN 25 mL/min/1.73m2 Critically low >=60 [facility] Comment on above: Performed By: #### CMP ####[facility] Stjcslypqx1680 [place] [address]Dr. Yuki Diaz Globulin (S) [Mass/Vol] 3.4 g/dL Normal [facility] Comment on above: Performed By: #### CMP ####[facility] Yfixszeuqk6918 [place] [address]Dr. Yuki Diaz Glucose [Mass/Vol] 114 mg/dL Critically high 74-106 [facility] Comment on above: Performed By: #### CMP ####[facility] Hdxzbofwvf4926 [place] [address]Dr. Yuki Diaz Potassium [Moles/Vol] 4.2 mmol/L Normal 3.5-5.1 [facility] Comment on above: Performed By: #### CMP ####[facility] Ihgdzsrxvo5078 [place] [address]Dr. Yuki Diaz Protein [Mass/Vol] 6.6 g/dL Normal 6.4-8.2 [facility] Comment on above: Performed By: #### CMP ####[facility] Cuqihtwhdv1223 [place] [id number]. Yuki Diaz Sodium [Moles/Vol] 143 mmol/L Normal 136-145 [facility] Comment on above: Performed By: #### CMP ####[facility] Cqiiknrkqu0723 [place] [address]Dr. Yuki Diaz Urea nitrogen [Mass/Vol] 65.0 mg/dL Critically high 7.0-18.0 [facility] Comment on above: Performed By: #### CMP ####[facility] Wmgynxrsci7559 [place] [address]Dr. Yuki Diaz Urea nitrogen/Creatin ine [Mass ratio] 25.6 mg/mg Normal [facility] Comment on above: Performed By: #### CMP ####[facility] Dcfuufmlvs8353 [place] [address]Dr. Yuki Diaz XR HIP RT INJon 04-01-2022 XR HIP RT INJ Normal [facility] PROF 14(COMP METB)on 022 Albumin [Mass/Vol] 3.6 g/dL Normal 3.4-5.0 [facility] Comment on above: Performed By: #### CMP ####[facility] Iciiwyrfmz3074 [place] [address]Dr. Yuki Diaz Albumin/Globulin [Mass ratio] 0.9 {ratio} Normal [facility] Comment on above: Performed By: #### CMP ####[facility] Symfedkbux0598 [place] [address]Dr. Yuki Diaz ALP [Catalytic activity/Vol] 91 U/L Normal 46-116 [facility] Comment on above: Performed By: #### CMP ####[facility] Ngxfkgpihr5242 [place] [address]Dr. Ykui Diaz ALT [Catalytic activity/Vol] 19 U/L Normal 16-63 [facility] Comment on above: Performed By: #### CMP ####[facility] Rlxpzmdtss5912 [place] [address]Dr. Yuki Diaz Anion gap [Moles/Vol] 12.3 mmol/L Normal [facility] Comment on above: Performed By: #### CMP ####[facility] Zbclpiekpe3049 [place] [address]Dr. Yuki Diaz AST [Catalytic activity/Vol] 14 U/L Critically low 15-37 [facility] Comment on above: Performed By: #### CMP ####[facility] Ushsmxgqcz7673 [place] [address]Dr. Yuki Diaz Bilirubin [Mass/Vol] 0.7 mg/dL Normal 0.2-1.0 [facility] Comment on above: Performed By: #### CMP ####[facility] Xnkswxsuyj6797 [place] [address]Dr. Yuki Diaz Calcium [Mass/Vol] 8.9 mg/dL Normal 8.5-10.1 [facility] Comment on above: Performed By: #### CMP ####[facility] Tbneayumgl75[address] [place], [place] [address]Dr. Yuki Joe Chloride [Moles/Vol] 102 mmol/L Normal 98-107 [facility] Comment on above: Performed By: #### CMP ####[facility] Fdcrmptazz2787 [place] [address]Dr. Yuki Joe CO2 [Moles/Vol] 30.4 mmol/L Normal 21.0-32.0 [facility] Comment on above: Performed By: #### CMP ####[facility] B[address]vhtdtree[address] [place], [place] [address]Dr. Yuki Joe Creatinine [Mass/Vol] 2.13 mg/dL Critically high 0.70-1.30 [facility] Comment on above: Performed By: #### CMP ####[facility] Stlthqxlaa4209 [place] [address]Dr. Yuki Joe EGFR-AF KENYAN 37 mL/min/1.73m2 Critically low >=60 [facility] Comment on above: Performed By: #### CMP ####[facility] Jqkamypktn20[address] [place], [place] [address]Dr. Monsealyssa Joe EGFR-NON AF KENYAN 30 mL/min/1.73m2 Critically low >=60 [facility] Comment on above: Performed By: #### CMP ####[facility] Neolrdfoat72[address] [place], [place] [address]Dr. Yuki Diaz Globulin (S) [Mass/Vol] 3.9 g/dL Normal [facility] Comment on above: Performed By: #### CMP ####[facility] Yvwexxgkwd2537 [place] [address]Dr. oMnsealyssa Joe Glucose [Mass/Vol] 146 mg/dL Critically high 74-106 [facility] Comment on above: Performed By: #### CMP ####[facility] Nnxdxbsktu8524 [place] [address]Dr. Yuki Diaz Potassium [Moles/Vol] 3.7 mmol/L Normal 3.5-5.1 [facility] Comment on above: Performed By: #### CMP ####[facility] Kkuaigkjxg1347 [place] [address]Dr. Yuki Diaz Protein [Mass/Vol] 7.5 g/dL Normal 6.4-8.2 [facility] [facility] Comment on above: Performed By: #### CMP ####[facility] ital Uhhwvqjets7536 [place] [address]Dr. Yuki Diaz Sodium [Moles/Vol] 141 mmol/L Normal 136-145 [facility] Comment on above: Performed By: #### CMP ####[facility] Hjnwtxprop8269 [place] [address]Dr. Yuki Diaz Urea nitrogen [Mass/Vol] 39.0 mg/dL Critically high 7.0-18.0 [facility] Comment on above: Performed By: #### CMP ####[facility] Cqaxdhivlk2959 [place] [address]Dr. Yuki Diaz Urea nitrogen/Creatin ine [Mass ratio] 18.3 mg/mg Normal [facility] Comment on above: Performed By: #### CMP ####[facility] Kdxkoevowg3321 [place] [address]Dr. Yuki Diaz PROF 14(COMP METB)on 022 Albumin [Mass/Vol] 3.3 g/dL Critically low 3.4-5.0 [facility] Comment on above: Performed By: #### CMP ####[facility] Bnjobybfdy2876 [place] [address]Dr. Yuki Diaz Albumin/Globulin [Mass ratio] 0.9 {ratio} Normal [facility] Comment on above: Performed By: #### CMP ####[facility] Ebdqoepnxq1929 [place] [address]Dr. Yuki Joe ALP [Catalytic activity/Vol] 78 U/L Normal 46-116 [facility] Comment on above: Performed By: #### CMP ####[facility] Qpegmkhkxm7658 [place] [address]Dr. Monsealyssa Joe ALT [Catalytic activity/Vol] 19 U/L Normal 16-63 [facility] Comment on above: Performed By: #### CMP ####[facility] [address] [place], [place] [address]Dr. Yuki Diaz Anion gap [Moles/Vol] 12.3 mmol/L Normal [facility] Comment on above: Performed By: #### CMP ####[facility] Jjeirbfzvv[address] [place], [place] [address]Dr. Yuki Diaz AST [Catalytic activity/Vol] 13 U/L Critically low 15-37 [facility] Comment on above: Performed By: #### CMP ####[facility] G[address]qbqdmjg[address] [place], [place] [address]Dr. Yuki Diaz Bilirubin [Mass/Vol] 0.8 mg/dL Normal 0.2-1.0 [facility] Comment on above: Performed By: #### CMP ####[facility] X[address]oywtihyy[address] [place], [place] [address]Dr. Yuki Diaz Calcium [Mass/Vol] 8.8 mg/dL Normal 8.5-10.1 [facility] Comment on above: Performed By: #### CMP ####[facility] Cnpyphalgz[address] [place], [place] [address]Dr. Yuki Diaz Chloride [Moles/Vol] 105 mmol/L Normal 98-107 [facility] Comment on above: Performed By: #### CMP ####[facility] Fsqyqjzvpw[address] [place], [place] [address]Dr. Yuki Diaz Creatinine [Mass/Vol] 2.44 mg/dL Critically high 0.70-1.30 [facility] Comment on above: Performed By: #### CMP ####[facility] Ugqgulkooy1289 [place] [address]Dr. Monsealyssa Joe EGFR-AF KENYAN 31 mL/min/1.73m2 Critically low >=60 [facility] Comment on above: Performed By: #### CMP ####[facility] Xicnkfvuzf5324 [place] [address]Dr. Monsealyssa Joe EGFR-NON AF KENYAN 26 mL/min/1.73m2 Critically low >=60 [facility] Comment on above: Performed By: #### CMP ####[facility] Eqbhqfkfvx6998 [place] [address]Dr. Yuki Diaz Globulin (S) [Mass/Vol] 3.7 g/dL Normal [facility] Comment on above: Performed By: #### CMP ####[facility] Uqwfqpqkik5696 [place] [address]Dr. Yuki Diaz Glucose [Mass/Vol] 196 mg/dL Critically high 74-106 [facility] Comment on above: Performed By: #### CMP ####[facility] Jpaxucrexw9257 [place] [address]Dr. Yuki Diaz Potassium [Moles/Vol] 4.6 mmol/L Normal 3.5-5.1 [facility] Comment on above: Performed By: #### CMP ####[facility] Iqlbbwhlrt2472 [place] [address]Dr. Yuki Diaz Protein [Mass/Vol] 7.0 g/dL Normal 6.4-8.2 [facility] Comment on above: Performed By: #### CMP ####[facility] Aznmatugcm1633 [place] [address]Dr. Yuki Diaz Sodium [Moles/Vol] 144 mmol/L Normal 136-145 [facility] Comment on above: Performed By: #### CMP ####[facility] Ryvlssvqvh4855 [place] [address]Dr. Yuki Diaz Urea nitrogen [Mass/Vol] 44.0 mg/dL Critically high 7.0-18.0 [facility] Comment on above: Performed By: #### CMP ####[facility] Ktigcbrwry8[address] [place], [place] [address]Dr. Yuki Diaz Urea nitrogen/Creatin ine [Mass ratio] 18.0 mg/mg Normal [facility] Comment on above: Performed By: #### CMP ####[facility] Ojefuxyvrb8030[address] [place], [place] [address]DrBebo Diaz PROF 14(COMP METB)on 022 Albumin [Mass/Vol] 3.2 g/dL Critically low 3.4-5.0 [facility] Comment on above: Performed By: #### CMP ####[facility] Knlrobdxjt14[address] [place], [place] [address]Dr. Yuki Diaz Albumin/Globulin [Mass ratio] 0.9 {ratio} Normal [facility] Comment on above: Performed By: #### CMP ####[facility] Ezgoujnhru345[address] [place], [place] [address]Dr. Yuki Diaz ALP [Catalytic activity/Vol] 75 U/L Normal 46-116 [facility] Comment on above: Performed By: #### CMP ####[facility] Wcahzizqgg343[address] [place], [place] [address]Dr. Yuki Diaz ALT [Catalytic activity/Vol] 14 U/L Critically low 16-63 [facility] Comment on above: Performed By: #### CMP ####[facility] Qjxfqmiaie9511[address] [place], [place] [address]Dr. Yuki Diaz Anion gap [Moles/Vol] 12.6 mmol/L Normal [facility] Comment on above: Performed By: #### CMP ####[facility] Agtffgraih577[address] [place], [place] [address]Dr. Yuki Diaz AST [Catalytic activity/Vol] 9 U/L Critically low 15-37 [facility] Comment on above: Performed By: #### CMP ####[facility] Aovvtktcvf750[address] [place], [place] [address]Dr. Yuki Diaz Bilirubin [Mass/Vol] 0.7 mg/dL Normal 0.2-1.0 [facility] Comment on above: Performed By: #### CMP ####[facility] Envbakbahr1598 [place] [address]Dr. Monsealyssa Joe Calcium [Mass/Vol] 8.6 mg/dL Normal 8.5-10.1 [facility] Comment on above: Performed By: #### CMP ####[facility] Hmfgnxdrbj4555 [place] [address]Dr. Yuki Diaz Chloride [Moles/Vol] 107 mmol/L Normal 98-107 [facility] Comment on above: Performed By: #### CMP ####[facility] Xqpjywtuir35[address] [place], [place] [address]Dr. Yuki Diaz CO2 [Moles/Vol] 28.3 mmol/L Normal 21.0-32.0 [facility] Comment on above: Performed By: #### CMP ####[facility] Diqaaodpkb57[address] [place], [place] [address]Dr. Yuki Diaz Creatinine [Mass/Vol] 2.52 mg/dL Critically high 0.70-1.30 [facility] Comment on above: Performed By: #### CMP ####[facility] Iikotzhlib[address] [place], [place] [address]Dr. Yuki Diaz EGFR-AF KENYAN 30 mL/min/1.73m2 Critically low >=60 [facility] Comment on above: Performed By: #### CMP ####[facility] Pbfftlfcel538[address] [place], [place] [address]Dr. Yuki Diaz EGFR-NON AF KENYAN 25 mL/min/1.73m2 Critically low >=60 [facility] Comment on above: Performed By: #### CMP ####[facility] Damxdbhnus3611[address] [place], [place] [address]Dr. Yuki Diaz Globulin (S) [Mass/Vol] 3.7 g/dL Normal [facility] Comment on above: Performed By: #### CMP ####[facility] Zyaicndrsk1458[address] [place], [place] [address]Dr. Yuki Diaz Glucose [Mass/Vol] 152 mg/dL Critically high 74-106 [facility] Comment on above: Performed By: #### CMP ####[facility] Txiazleuzi4940 [place] [address]Dr. Yuki Diaz Potassium [Moles/Vol] 3.9 mmol/L Normal 3.5-5.1 [facility] Comment on above: Performed By: #### CMP ####[facility] Yahdkwbysg0147 [place] [address]Dr. Yuki Diaz Protein [Mass/Vol] 6.9 g/dL Normal 6.4-8.2 [facility] Comment on above: Performed By: #### CMP ####[facility] Zkwgwpoweg6656 [place] [address]Dr. Yuki Diaz Sodium [Moles/Vol] 144 mmol/L Normal 136-145 [facility] Comment on above: Performed By: #### CMP ####[facility] Rqkudpjqzz9442 [place] [address]Dr. Yuki Diaz Urea nitrogen [Mass/Vol] 50.0 mg/dL Critically high 7.0-18.0 [facility] Comment on above: Performed By: #### CMP ####[facility] Ctrnofpbyl7236 [place] [address]Dr. Yuki Diaz Urea nitrogen/Creatin ine [Mass ratio] 19.8 mg/mg Normal [facility] Comment on above: Performed By: #### CMP ####[facility] Caoyxeyoza0439 [place] [address]Dr. Yuki Diaz PROF 14(COMP METB)on 022 Albumin [Mass/Vol] 3.1 g/dL Critically low 3.4-5.0 [facility] Comment on above: Performed By: #### CMP ####[facility] Oiwpbrzwwg4334 [place] [address]Dr. Yuki Diaz Albumin/Globulin [Mass ratio] 0.7 {ratio} Normal [facility] Comment on above: Performed By: #### CMP ####[facility] Rnhlkufclk5046 [place] [address]Dr. Yuki Diaz ALP [Catalytic activity/Vol] 101 U/L Normal 46-116 [facility] Comment on above: Performed By: #### CMP ####[facility] Bohwcybprv3883 [place] [address]Dr. Yuki Diaz ALT [Catalytic activity/Vol] 18 U/L Normal 16-63 [facility] Comment on above: Performed By: #### CMP ####[facility] Rykscqnuzz7547 [place] [address]Dr. Yuki Joe Anion gap [Moles/Vol] 11.9 mmol/L Normal [facility] Comment on above: Performed By: #### CMP ####[facility] Gifzbjvets5550 [place] [address]Dr. Yuki Joe AST [Catalytic activity/Vol] 11 U/L Critically low 15-37 [facility] Comment on above: Performed By: #### CMP ####[facility] Dixvxuuekm4849 [place] [address]Dr. Yuki Joe Bilirubin [Mass/Vol] 0.5 mg/dL Normal 0.2-1.0 [facility] Comment on above: Performed By: #### CMP ####[facility] Rwkhgqmrtn[address] [place], [place] [address]Dr. Yuki Joe Calcium [Mass/Vol] 9.0 mg/dL Normal 8.5-10.1 [facility] Comment on above: Performed By: #### CMP ####[facility] Flhzlandej0009 [place] [address]Dr. Yuki Joe Chloride [Moles/Vol] 103 mmol/L Normal 98-107 [facility] Comment on above: Performed By: #### CMP ####[facility] Aioajbudkg0815 [place] [address]Dr. Yuki Diaz CO2 [Moles/Vol] 29.8 mmol/L Normal 21.0-32.0 [facility] Comment on above: Performed By: #### CMP ####[facility] Evdbyntwzf6959 [place] [address]Dr. Yuki Diaz Creatinine [Mass/Vol] 3.03 mg/dL Critically high 0.70-1.30 [facility] Comment on above: Performed By: #### CMP ####[facility] Igmrqcdlgv7309 [place] [address]Dr. Monsealyssa Joe EGFR-AF KENYAN 24 mL/min/1.73m2 Critically low >=60 [facility] Comment on above: Performed By: #### CMP ####[facility] Dxkvxegoty8143 [place] [address]Dr. Monsealyssa Joe EGFR-NON AF KENYAN 20 mL/min/1.73m2 Critically low >=60 [facility] Comment on above: Performed By: #### CMP ####[facility] Ireubfzsbr2918 [place] [address]Dr. Yuki Diaz Globulin (S) [Mass/Vol] 4.4 g/dL Normal [facility] Comment on above: Performed By: #### CMP ####[facility] Hpvhbgxhjh3883 [place] [address]Dr. Yuki Diaz Glucose [Mass/Vol] 260 mg/dL Critically high 74-106 [facility] Comment on above: Performed By: #### CMP ####[facility] Hvinrlukvn2018 [place] [address]Dr. Yuki Diaz Potassium [Moles/Vol] 4.7 mmol/L Normal 3.5-5.1 [facility] Comment on above: Performed By: #### CMP ####[facility] Cpyggcmagk8259 [place] [address]Dr. Yuki Diaz Protein [Mass/Vol] 7.5 g/dL Normal 6.4-8.2 [facility] Comment on above: Performed By: #### CMP ####[facility] Dfuadeyhpo6250 [place] [address]Dr. Yuki Diaz Sodium [Moles/Vol] 140 mmol/L Normal 136-145 [facility] Comment on above: Performed By: #### CMP ####[facility] Xtsyzavjql6117 [place] [address]Dr. Yuki Diaz Urea nitrogen [Mass/Vol] 50.0 mg/dL Critically high 7.0-18.0 [facility] Comment on above: Performed By: #### CMP ####[facility] Infohzdsxl3782 [place], [place] [address]TpBebo Diaz Urea nitrogen/Creatin ine [Mass ratio] 16.5 mg/mg Normal [facility] Comment on above: Performed By: #### CMP ####[facility] Sqsqlnsbvv1168 [place], [place] [address]XuBebo Diaz Screenson 02-18-2022 Screens [id number]:[id number] Normal [facility] Ambulatory Visit Summaryon 0 02-15-2022 Ambulatory Visit Summary SEHNG BAUER :1940 Visit Date:02/15/2022 Ambulatory Visit Instructions Your Diagnosis Elevated PSA BPH associated with nocturia Nocturia Tests Performed Urnls Dip Stick Auto w/o Microscopy POC 48260 Your Care Team Attending Physician - César Gordon Jr., MD Primary Care Physician - Derrick Lopez MD This Is Your Medications List Contact prescribing physician if questions or concerns amlodipine aspirin (aspirin 81 mg oral tablet) atorvastatin (Lipitor 20 mg Tab) benazepril (Lotensin) carvedilol (carvedilol 25 mg Tab) glimepiride (glimepiride 4 mg Tab) lisinopril (lisinopril 30 mg Tab) metformin (metformin 1000 mg oral tablet, extended release) pravastatin (pravastatin 20 mg Tab) Procedures Performed Cystourethroscopy with dilation of urethral stricture (03/30/2016), Cystoscopy (02/12/2016), TURP - Transurethral resection of prostate (09/08/2013), Open heart surgery, Placement of stent in cardiac conduit. Discharge Vitals Heart Rate (Peripheral) 80 Respiratory Rate 16 Blood Pressure 88/66 Height 172.0 cm Height 172 cm Weight 91.0 kg Weight 91 kg BMI 30.76 What to do next Scheduled Follow-Up Appointments Monday 10:30 AM EST With: Evan Ochoa MD, César Vega [facility] Patient Educationon 02-16-20 22 Patient Education Oncology Prostate-Specific Antigen Test Why am I having this test? The prostate-specific antigen (PSA) test is a screening test for prostate cancer. It can identify early signs of prostate cancer, which may allow for more effective treatment. Your health care provider may recommend that you have a PSA test starting at age 40 or that you have one earlier or later, depending on your risk factors for prostate cancer. You may also have a PSA test: ? To monitor treatment of prostate cancer. ? To check whether prostate cancer has returned after treatment. ? If you have signs of other conditions that can affect PSA levels, such as: ? An enlarged prostate that is not caused by cancer (benign prostatic hyperplasia, BPH). This condition is very common in older men. ? A prostate infection. What is being tested? This test measures the amount of PSA in your blood. PSA is a protein that is made in the prostate. The prostate naturally produces more PSA as you age, but very high levels may be a sign of a medical condition. What kind of sample is taken? A blood sample is required for this test. It is usually collected by inserting a needle into a blood vessel or by sticking a finger with a small needle. Blood for this test should be drawn before having an exam of the prostate. How do I prepare for this test? Do not ejaculate starting 24 hours before your test, or as long as told by your health care provider. Tell a health care provider about: ? Any allergies you have. ? All medicines you are taking, including vitamins, herbs, eye drops, creams, and diop-anm-bltjoot medicines. This also includes: ? Medicines to assist with hair growth, such as finasteride. ? Any recent exposure to a medicine called diethylstilbestrol. ? Any blood disorders you have. ? Any recent procedures you have had, especially any procedures involving the prostate or rectum. ? Any medical conditions you have. ? Any recent urinary tract infections (UTIs) you have had. How are the results reported? Your test results will be reported as a value that indicates how much PSA is in your blood. This will be given as nanograms of PSA per milliliter of blood (ng/mL). Your health care provider will compare your results to normal ranges that were established after testing a large group of people (reference ranges). Reference ranges may vary among labs and hospitals. PSA levels vary from person to person and generally increase with age. Because of this variation, there is no single PSA value that is considered normal for everyone. Instead, PSA reference ranges are used to describe whether your PSA levels are considered low or high (elevated). Common reference ranges are: ? Low: 0?2.5 ng/mL. ? Slightly to moderately elevated: 2.6?10.0 ng/mL. ? Moderately elevated: 10.0?19.9 ng/mL. ? Significantly elevated: 20 ng/mL or greater. Sometimes, the test results may report that a condition is present when it is not present (false-positive result). What do the results mean? A test result that is higher than 4 ng/mL may mean that you are at an increased risk for prostate cancer. However, a PSA test by itself is not enough to diagnose prostate cancer. High PSA levels may also be caused by the natural aging process, prostate infection, or BPH. PSA screening cannot tell you if your PSA is high due to cancer or a different cause. A prostate biopsy is the only way to diagnose prostate cancer. A risk of having the PSA test is diagnosing and treating prostate cancer that would never have caused any symptoms or problems (overdiagnosis and overtreatment). Talk with your health care provider about what your results mean. Questions to ask your health care provider Ask your health care provider, or the department that is doing the test: ? When will my results be ready? ? How will I get my results? ? What are my treatment options? ? What other tests do I need? ? What are my next steps? Summary ? The prostate-specific antigen (PSA) test is a screening test for prostate cancer. ? Your health care provider may recommend that you have a PSA test starting at age 40 or that you have one earlier or later, depending on your risk factors for prostate cancer. ? A test result that is higher than 4 ng/mL may mean that you are at an increased risk for prostate cancer. However, elevated levels can be caused by a number of conditions other than prostate cancer. ? Talk with your health care provider about what your results mean. This information is not intended to replace advice given to you by your health care provider. Make sure you discuss any questions you have with your health care provider. Document Released: 08/26/2005 Document Revised: 07/06/2018 Document Reviewed: 04/30/2018 [employer] Patient Education ? 2019 [employer] Gordon [facility] Urology Office/Clinic Noteon 02-15-2022 Urology Office/Clinic Note Chief Complaint 6 month follow up with PSA F/T HPI Staff Sheng is here today for a 6 month follow up with PSA F/T. Current PSA done on 12/14/21 was 5.9 and 40%. Previous PSA done on 01/2021 was 7.46. Previous DX: Elevated PSA, BPH associated with nocturia, nocturia, weak urinary stream, renal cyst. S/P Cysto/UD done on 03/30/16, TURP 09/08/13. BP 88/66 pt states he feels fine and that they have been changing his blood pressure medication. Dysuria: _Denies Incomplete bladder emptying: _Denies Hematuria: _Denies Frequency: _Denies Urgency: _Denies Nocturia: _1-2x Stream: _steady Leaking: _Denies Post void dripping: _Denies Wearing pads/ Depends: _Denies Urge incontinence: _Denies Stress incontinence: _Denies Incontinence without Sensory Awareness: _Denies Abdominal pain: _Denies Flank pain: _Denies Sexual complaints: _ History of Present Illness reviewed medical history, PSA, UA no associated fever, chills, pain or blood. Preceding values. In January 2021 PSA was 7.46 ng/mL. Review of Systems PHQ Score Initial Depression Screen Score: 0 ROS - Provider Constitutional: denies weight loss, denies hot flashes. Eyes: denies eye problems. Gastrointestinal: denies nausea, denies vomiting. Cardiovascular: denies chest pain or angina. Integumentary: no dryness Musculoskeletal: denies musculoskeletal symptoms. ENMT: denies otolaryngeal symptoms. Respiratory: no shortness of breath. Heme/Lymph: denies easy bleeding tendency, denies easy bruising tendency. Psychiatric: no confusion, no anxiety. Genitourinary: denies dysuria, denies hematuria, denies discharge, denies urinary frequency, denies urinary hesitancy, mild nocturia, denies incontinence, denies genital sores, denies decreased libido, and denies erectile dysfunction. Physical Exam Vitals & Measurements HR: 80(Peripheral) RR: 16 BP: 88/66 HT: 172.0 cm HT: 172 cm WT: 91.0 kg WT: 91 kg BMI: 30.76 General Appearance: alert, no distress, well nourished, well developed male. Flank Pain: none. Bladder: nonpalpable. Assessment/Plan This patient has a history of an elevated PSA blood test result. He also has a history of prostatic hyperplasia. He status post TURP in 2013. He states he is voiding with a good stream at this point and good control. His most recent PSA blood test result is 5.9 ng/mL. This is a significant departure from previous PSA values that were as high as 7.46 ng/mL in January 2021. Our plan will be to repeat PSA blood test in August 2022. And will determine when the next PSA value is based on that test result. This was discussed in detail with the patient. He will contact her office if there is any change in his voiding pattern. 1. Elevated PSA (R97.20: Elevated prostate specific antigen [PSA]) PSA F/T. Current PSA done on 12/14/21 was 5.9 and 40%. Previous PSA done on 01/2021 was 7.46. will repeat PSA in 6 months with follow up. Ordered: PSA Total Urnls Dip Stick Auto w/o Microscopy POC 50051 2. 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 Ordered: PSA Total Nocturia (R35.1: Nocturia) Follow-up With When Contact Information Evan Ochoa MD, César Vega URO In 6 months [facility] [address] [place] [address]- Additional Instructions: w/ psa Patient Education Prostate-Specific Antigen Test Gretel Garcia, personally scribed for Dr. Gordon on 02/15/2022 10:35:23. . Documentation recorded by the scribe, Gretel Youngblood, accurately reflects the services(s) I performed and decisions made by me. Authenticated by César Gordon MD on [ Current Date and Time ]. Problem List/Past Medical History Ongoing BPH associated with nocturia Elevated PSA Nocturia Renal cyst Weak urinary stream Historical No qualifying data Procedure/Surgical History Cystourethroscopy with dilation of urethral stricture (03/30/2016), Cystoscopy (02/12/2016), TURP - Transurethral resection of prostate (09/08/2013), Open heart surgery, Placement of stent in cardiac conduit. Medications amlodipine, 10 mg, Oral, Daily, Unable to obtain: Pt does not have list on him so unsure of changes to medications. aspirin 81 mg oral tablet, 81 mg= 1 tab(s), Oral, Daily, Unable to obtain: Pt does not have list on him so unsure of changes to medications. carvedilol 25 mg Tab, 25 mg= 1 tab(s), Oral, BID, Unable to obtain: Pt does not have list on him so unsure of changes to medications. glimepiride 4 mg Tab, 8 mg= 2 tab(s), Oral, Daily, Unable to obtain: Pt does not have list on him so unsure of changes to medications. Lipitor 20 mg Tab, 20 mg= 1 tab(s), Oral, Daily, Unable to obtain: Pt does not have list on him so unsure (more content not included)... Normal [facility] Comment on above: Result Comment: Electronically Signed By : Evan Ochoa MD, César Vega\.br\Date and Time Signed: 02/15/22 10:42 EDT\.br\Electronically Co-Signed By: Gretel Bhagat\.br\Date and Time Co-Signed: 02/15/22 10:35 EDT PROF 14(COMP METB)on 022 Albumin [Mass/Vol] 3.3 g/dL Critically low 3.4-5.0 [facility] Comment on above: Performed By: #### CMP ####[facility] Ltvzjmgdcb2868 [place], [place] [address]Pq. Yuki Diaz Albumin/Globulin [Mass ratio] 0.8 {ratio} Normal [facility] Comment on above: Performed By: #### CMP ####[facility] Wyiingxrwr6835 [place] [address]Dr. Yuki Diaz ALP [Catalytic activity/Vol] 111 U/L Normal 46-116 [facility] Comment on above: Performed By: #### CMP ####[facility] Ykqbihzczm0237 [place] [address]Dr. Yuki Joe ALT [Catalytic activity/Vol] 22 U/L Normal 16-63 [facility] Comment on above: Performed By: #### CMP ####[facility] ital Bhcwrkaxqa6[address] [place] [address]Dr. Yuki Diaz Anion gap [Moles/Vol] 9.0 mmol/L Normal [facility] Comment on above: Performed By: #### CMP ####[facility] Jkvjkhzsjm3072 [place] [address]Dr. Yuki Diaz AST [Catalytic activity/Vol] 10 U/L Critically low 15-37 [facility] Comment on above: Performed By: #### CMP ####[facility] ital Gsocmhtqhj8043 [place] [address]Dr. Yuki Diaz Bilirubin [Mass/Vol] 1.0 mg/dL Normal 0.2-1.0 [facility] Comment on above: Performed By: #### CMP ####[facility] Sqgdutgpnk[address] [place], [place] [address]Dr. Yuki Diaz Calcium [Mass/Vol] 9.1 mg/dL Normal 8.5-10.1 [facility] Comment on above: Performed By: #### CMP ####[facility] ital Idrlebbqjm7657 [place] [address]Dr. Yuki Diaz Chloride [Moles/Vol] 103 mmol/L Normal 98-107 [facility] Comment on above: Performed By: #### CMP ####[facility] ital Hyqrarzwfd7218 [place] [address]Dr. Yuki Diaz CO2 [Moles/Vol] 32.8 mmol/L Critically high 21.0-32.0 [facility] Comment on above: Performed By: #### CMP ####[facility] ital Qtsavbxxjk7[address] [place], [place] [address]Dr. Yuki Diaz Creatinine [Mass/Vol] 2.55 mg/dL Critically high 0.70-1.30 [facility] Comment on above: Performed By: #### CMP ####[facility] ital Npbhngjike36[address] [place] [address]Dr. Yuki Diaz EGFR-AF KENYAN 30 mL/min/1.73m2 Critically low >=60 [facility] Comment on above: Performed By: #### CMP ####[facility] ital Hrcghpdrkb4413 [place] [address]Dr. Yuki Diaz EGFR-NON AF KENYAN 24 mL/min/1.73m2 Critically low >=60 [facility] Comment on above: Performed By: #### CMP ####[facility] Rsjikdbtnd3935 [place] [address]Dr. Yuki Diaz Globulin (S) [Mass/Vol] 4.0 g/dL Normal [facility] Comment on above: Performed By: #### CMP ####[facility] Oreqqqggkz5836 [place] [address]Dr. Yuki Diaz Glucose [Mass/Vol] 154 mg/dL Critically high 74-106 [facility] Comment on above: Performed By: #### CMP ####[facility] ital Aiqwozuxwy8993 [place] [address]Dr. Yuki Diaz Potassium [Moles/Vol] 3.8 mmol/L Normal 3.5-5.1 [facility] Comment on above: Performed By: #### CMP ####[facility] ital Eieauxboql7558 [place] [address]Dr. Yuki Diaz Protein [Mass/Vol] 7.3 g/dL Normal 6.4-8.2 [facility] Comment on above: Performed By: #### CMP ####[facility] ital Vkxzbopwfk5447 [place] [address]Dr. Yuki Diaz Sodium [Moles/Vol] 141 mmol/L Normal 136-145 [facility] Comment on above: Performed By: #### CMP ####[facility] ital Romoyxwyrx3128 [place] [address]Dr. Yuki Diaz Urea nitrogen [Mass/Vol] 35.0 mg/dL Critically high 7.0-18.0 [facility] Comment on above: Performed By: #### CMP ####[facility] ital Sxknpxkmiv9751 [place] [address]Dr. Yuki Diaz Urea nitrogen/Creatin ine [Mass ratio] 13.7 mg/mg Normal [facility] Comment on above: Performed By: #### CMP ####[facility] Uzunejukfa7488 [place] [address]Dr. Yuki Diaz PROF 14(COMP METB)on 022 Albumin [Mass/Vol] 2.9 g/dL Critically low 3.4-5.0 [facility] Comment on above: Performed By: #### CMP ####[facility] Xoolopwfzc4552 [place] [address]Dr. Yuki Diaz Albumin/Globulin [Mass ratio] 0.8 {ratio} Normal [facility] Comment on above: Performed By: #### CMP ####[facility] Shodpmnjuw6983 [place] [address]Dr. Yuki Diaz ALP [Catalytic activity/Vol] 96 U/L Normal 46-116 [facility] Comment on above: Performed By: #### CMP ####[facility] Wavfgxyyrk7942 [place] [address]Dr. Yuki Diaz ALT [Catalytic activity/Vol] 23 U/L Normal 16-63 [facility] Comment on above: Performed By: #### CMP ####[facility] Mfriokitpe9421 [place] [address]Dr. Yuki Diaz Anion gap [Moles/Vol] 11.6 mmol/L Normal [facility] Comment on above: Performed By: #### CMP ####[facility] Xcwtjynewf4762 [place] [address]Dr. Yuki Diaz AST [Catalytic activity/Vol] 12 U/L Critically low 15-37 [facility] Comment on above: Performed By: #### CMP ####[facility] ital Cskdpotcnb6190 [place] [address]Dr. Yuki Diaz Bilirubin [Mass/Vol] 0.7 mg/dL Normal 0.2-1.0 [facility] Comment on above: Performed By: #### CMP ####[facility] ital Qnffzilqjf05[address] [place], [place] [address]Dr. Yuki Diaz Calcium [Mass/Vol] 8.7 mg/dL Normal 8.5-10.1 [facility] Comment on above: Performed By: #### CMP ####[facility] ital Zxsirxbcjw744[address] [place], [place] [address]Dr. Monsealyssa Joe Chloride [Moles/Vol] 103 mmol/L Normal 98-107 [facility] Comment on above: Performed By: #### CMP ####[facility] Bzbikxgfcz910[address] [place], [place] [address]Dr. Monsealyssa Joe CO2 [Moles/Vol] 32.5 mmol/L Critically high 21.0-32.0 [facility] Comment on above: Performed By: #### CMP ####[facility] Wanyidrnfz0765[address] [place], [place] [address]Dr. Yuki Diaz Creatinine [Mass/Vol] 2.35 mg/dL Critically high 0.70-1.30 [facility] Comment on above: Performed By: #### CMP ####[facility] Rqnuwnirld4518[address] [place], [place] [address]Dr. Monsealyssa Joe EGFR-AF KENYAN 33 mL/min/1.73m2 Critically low >=60 [facility] Comment on above: Performed By: #### CMP ####[facility] Wkfpgfwtcm5817[address] [place], [place] [address]Dr. Yuki Diaz EGFR-NON AF KENYAN 27 mL/min/1.73m2 Critically low >=60 [facility] Comment on above: Performed By: #### CMP ####[facility] Qlisuolhmo708[address] [place], [place] [address]Dr. Yuki Diaz Globulin (S) [Mass/Vol] 3.6 g/dL Normal [facility] Comment on above: Performed By: #### CMP ####[facility] Vfeycgcgss7810[address] [place], [place] [address]Dr. Yuki Diaz Glucose [Mass/Vol] 206 mg/dL Critically high 74-106 [facility] Comment on above: Performed By: #### CMP ####[facility] ital Vzkykzwhnn8363 [place] [address]Dr. Yuki Diaz Potassium [Moles/Vol] 4.1 mmol/L Normal 3.5-5.1 [facility] Comment on above: Performed By: #### CMP ####[facility] Eumuwtkfje7319 [place] [address]Dr. Yuki Joe Protein [Mass/Vol] 6.5 g/dL Normal 6.4-8.2 [facility] Comment on above: Performed By: #### CMP ####[facility] Mshbdsbdgl4660[address] [place], [place] [address]Dr. Yuki Diaz Sodium [Moles/Vol] 143 mmol/L Normal 136-145 [facility] Comment on above: Performed By: #### CMP ####[facility] Lzeoyfgbbe5023[address] [place], [place] [address]Dr. Monsealyssa Joe Urea nitrogen [Mass/Vol] 34.0 mg/dL Critically high 7.0-18.0 [facility] Comment on above: Performed By: #### CMP ####[facility] Ojwcfttzcd4647[address] [place], [place] [address]Dr. Monsealyssa Joe Urea nitrogen/Creatin ine [Mass ratio] 14.5 mg/mg Normal [facility] Comment on above: Performed By: #### CMP ####[facility] Uadfybsyhb485[address] [place], [place] [address]Dr. Yuki Joe BNPon 02-03-2022 Natriuretic peptide B (Bld) [Mass/Vol] 3216.0 pg/mL Critically high <=1,800.0 [facility] Comment on above: Result Comment: repeated Performed By: #### B SCALER PACKER ####[facility] Rhumcdzvfq8878[address] [place], [place] [address]Dr. Yuki Diaz PROF 14(COMP METB)on 022 Albumin [Mass/Vol] 3.0 g/dL Critically low 3.4-5.0 [facility] Comment on above: Performed By: #### CMP ####[facility] ital Uxmqkadytw3198 [place] [address]Dr. Yuki Joe Albumin/Globulin [Mass ratio] 0.8 {ratio} Normal [facility] Comment on above: Performed By: #### CMP ####[facility] ital Zahxwiocva8562 [place] [address]Dr. Monsealyssa Joe ALP [Catalytic activity/Vol] 104 U/L Normal 46-116 [facility] Comment on above: Performed By: #### CMP ####[facility] ital Huxuxdymul3509 [place] [address]Dr. Monsealyssa Diaz ALT [Catalytic activity/Vol] 32 U/L Normal 16-63 [facility] Comment on above: Performed By: #### CMP ####[facility] ital Meymujwcnq6320 [place] [address]Dr. Yuki Diaz Anion gap [Moles/Vol] 9.3 mmol/L Normal [facility] Comment on above: Performed By: #### CMP ####[facility] ital Yzqujkxtql2586 [place] [address]Dr. Mosnealyssa Diaz AST [Catalytic activity/Vol] 15 U/L Normal 15-37 [facility] Comment on above: Performed By: #### CMP ####[facility] ital Lculcqgcul6618 [place] [address]Dr. Yuki Diaz Bilirubin [Mass/Vol] 0.9 mg/dL Normal 0.2-1.0 [facility] Comment on above: Performed By: #### CMP ####[facility] ital Civtuwrfzl6353 [place] [address]Dr. Yuki Diaz Calcium [Mass/Vol] 8.6 mg/dL Normal 8.5-10.1 [facility] Comment on above: Performed By: #### CMP ####[facility] ital Iynbcefaio5926 [place] [address]Dr. Yuki Diaz Chloride [Moles/Vol] 104 mmol/L Normal 98-107 [facility] Comment on above: Performed By: #### CMP ####[facility] ital Tibicuzysa1914 [place] [address]Dr. Yuki Diaz CO2 [Moles/Vol] 35.9 mmol/L Critically high 21.0-32.0 [facility] Comment on above: Performed By: #### CMP ####[facility] ital Ovxndtatjr6769 [place] [address]Dr. Yuki Diaz Creatinine [Mass/Vol] 1.98 mg/dL Critically high 0.70-1.30 [facility] Comment on above: Performed By: #### CMP ####[facility] Mxfqdgdbth4208 [place] [address]Dr. Yuki Diaz EGFR-AF KENYAN 40 mL/min/1.73m2 Critically low >=60 [facility] Comment on above: Performed By: #### CMP ####[facility] Gjivpwqkcg9056 [place] [address]Dr. Yuki Diaz EGFR-NON AF KENYAN 33 mL/min/1.73m2 Critically low >=60 [facility] Comment on above: Performed By: #### CMP ####[facility] Hnjvkhibva3402 [place] [address]Dr. Yuki Diaz Globulin (S) [Mass/Vol] 3.9 g/dL Normal [facility] Comment on above: Performed By: #### CMP ####[facility] Muojdseqoj4756 [place] [address]Dr. Yuki Diaz Glucose [Mass/Vol] 124 mg/dL Critically high 74-106 [facility] Comment on above: Performed By: #### CMP ####[facility] Gijbpjeked5793 [place] [address]Dr. Yuki Diaz Potassium [Moles/Vol] 4.2 mmol/L Normal 3.5-5.1 [facility] Comment on above: Performed By: #### CMP ####[facility] Xrakjxtmwj8247 [place] [address]Dr. Yuki Diaz Protein [Mass/Vol] 6.9 g/dL Normal 6.4-8.2 [facility] Comment on above: Performed By: #### CMP ####[facility] Ondxhwvmkp4413 [place] [address]Dr. Yuki Diaz Sodium [Moles/Vol] 145 mmol/L Normal 136-145 [facility] Comment on above: Performed By: #### CMP ####[facility] Tninbkfvrh8962 [place] [address]Dr. Yuki Diaz Urea nitrogen [Mass/Vol] 27.0 mg/dL Critically high 7.0-18.0 [facility] Comment on above: Performed By: #### CMP ####[facility] Zhudtldope7636 [place] [address]Dr. Yuki Diaz Urea nitrogen/Creatin ine [Mass ratio] 13.6 mg/mg Normal [facility] Comment on above: Performed By: #### CMP ####[facility] Mfkdgjrrpm3940 [place] [address]Dr. Yuki Diaz BNPon 01-27-2022 Natriuretic peptide B (Bld) [Mass/Vol] 2090.0 pg/mL Critically high <=1,800.0 [facility] Comment on above: Performed By: #### CMP, BNP ####[facility] Qrmervxfbt69[address] [place], [place] [address]Dr. Yuki Joe CBC AUTO DIFFon 01-27-2022 BASO # 0.0 103/ul Normal 0.0-0.1 [facility] Comment on above: Performed By: #### CBC ####[facility] Hxmtaggqeb2364 [place] [address]Dr. Yuki Joe Basophils/100 WBC (Bld) 0.2 % Normal 0.2-2.0 [facility] Comment on above: Performed By: #### CBC ####[facility] Snkrajnslz2749[address] [place], [place] [address]Dr. Yuki Diaz EO # 0.2 103/ul Normal 0.0-0.7 [facility] Comment on above: Performed By: #### CBC ####[facility] Cqisdmruyr1360[address] [place], [place] [address]Dr. Yuki Joe Eosinophils/100 WBC (Bld) 1.8 % Normal 0.9-7.0 [facility] Comment on above: Performed By: #### CBC ####[facility] Itlmoxumym[address] Yuki Diaz Erythrocyte distribution width (RBC) [Ratio] 13.4 % Normal 11.0-15.0 [facility] Comment on above: Performed By: #### CBC ####[facility] Fmeltmgyvt48[address] [place] [address]. Yuki Diaz Hematocrit (Bld) [Volume fraction] 32.6 % Critically low 42.0-54.0 [facility] Comment on above: Performed By: #### CBC ####[facility] Biookhtflf[address] [place] [address]. Yuki Diaz Hemoglobin (Bld) [Mass/Vol] 10.4 g/dL Critically low 14.0-18.0 [facility] Comment on above: Performed By: #### CBC ####[facility] Udrnxwkrfs117[address] [place] [address]. Yuki Diaz IG # 0.03 10e3/ul Normal 0.00-0.03 [facility] Comment on above: Performed By: #### CBC ####[facility] Eqwyxksfts867[address] [place] [address]. Yuki Diaz IG % 0.3 % Normal 0.0-0.5 [facility] Comment on above: Performed By: #### CBC ####[facility] Gnmjeluits3998[address] [place], [place] [address]Dr. Yuki Diaz LYMPH # 1.2 103/ul Normal 1.2-3.8 [facility] Comment on above: Performed By: #### CBC ####[facility] Kylfvwrspd601[address] [place] [address]. Yuki Diaz Lymphocytes/100 WBC (Bld) 13.8 % Critically low 20.5-60.0 [facility] Comment on above: Performed By: #### CBC ####[facility] Zwzoyolvso[address] [place] [address]. Yuki Diaz MANUAL DIFF REQ NO Normal [facility] Comment on above: Performed By: #### CBC ####[facility] Yjycpfwcqy8550 [place] [address]DrBebo Yuki Joe MCH (RBC) [Entitic mass] 31.9 pg Normal 25.9-34.0 [facility] Comment on above: Performed By: #### CBC ####[facility] ital Oojgcwspty9500 [place] [address]Dr. Yuki Diaz MCHC (RBC) [Mass/Vol] 31.9 g/dL Normal 29.9-35.2 [facility] Comment on above: Performed By: #### CBC ####[facility] Hciugjnune9037 [address]Bebo Diaz MCV (RBC) [Entitic vol] 100.0 fL Critically high 80.0-94.0 [facility] Comment on above: Performed By: #### CBC ####[facility] Oybcsjbxej1297[address] [place], [place] [address]DrBebo Diaz MONO # 0.9 103/ul Critically high 0.3-0.8 [facility] Comment on above: Performed By: #### CBC ####[facility] Gtkkebguob4308[address] [place], [place] [address]DrBebo Diaz Monocytes/100 WBC (Bld) 10.1 % Normal 1.7-12.0 [facility] Comment on above: Performed By: #### CBC ####[facility] Flnctlkamt479[address] [place], [place] [address]DrBebo Diaz NEUT # 6.6 103/ul Critically high 1.4-6.5 [facility] Comment on above: Performed By: #### CBC ####[facility] Divppwcgyz0450[address] [place], [place] [address]DrBebo Diaz Neutrophils/100 WBC (Bld) 73.8 % Normal 43.0-75.0 [facility] Comment on above: Performed By: #### CBC ####[facility] Ijrohdyomg29[address] [place], [place] [address]DrBebo Diaz Platelet mean volume (Bld) [Entitic vol] 10.3 fL Normal 9.5-13.5 [facility] Comment on above: Performed By: #### CBC ####[facility] Zvwxfknzde7193 [place] [address]DrBebo Diaz PLT 196 103/ul Normal 150-450 [facility] Comment on above: Performed By: #### CBC ####[facility] Jnovyvgija0838 [place] [address]DrBebo Diaz RBC 3.26 106/ul Critically low 4.70-6.10 [facility] Comment on above: Performed By: #### CBC ####[facility] Xmepwwvjxn7225[address] [place], [place] [address]DrBebo Diaz WBC 9.0 103/ul Normal 4.0-11.0 [facility] Comment on above: Performed By: #### CBC ####[facility] Camsmjrauu7610[address] [place], [place] [address]DrBebo Diaz POINT OF CARE GLUCOSEon 01-06 Glucose [Mass/Vol] 155 mg/dL Critically high 74-106 [facility] Comment on above: Performed By: #### POCGLUC ####[facility] Jbamjhgrfn375[address] [place], [place] [address]DrBebo Diaz Glucose [Mass/Vol] 120 mg/dL Critically high 74-106 [facility] Comment on above: Performed By: #### POCGLUC ####[facility] Qwrrjjqjod0857[address] [place], [place] [address]DrBebo Diaz PROF 14(COMP METB)on 022 Albumin [Mass/Vol] 2.8 g/dL Critically low 3.4-5.0 [facility] Comment on above: Performed By: #### CMP, BNP ####[facility] Auqdwchron1530[address] [place], [place] [address]DrBebo Diaz Albumin/Globulin [Mass ratio] 0.8 {ratio} Normal [facility] Comment on above: Performed By: #### CMP, BNP ####[facility] Huhbycrzsz5574[address] [place], [place] [address]DrBebo Diaz ALP [Catalytic activity/Vol] 96 U/L Normal 46-116 [facility] Comment on above: Performed By: #### CMP, BNP ####[facility] Rldceovwop9431 [place] [address]Dr. Yuik Joe ALT [Catalytic activity/Vol] 27 U/L Normal 16-63 [facility] Comment on above: Performed By: #### CMP, BNP ####[facility] Ftesadpugg6617 [place] [address]Dr. Yuki Joe Anion gap [Moles/Vol] 8.7 mmol/L Normal [facility] Comment on above: Performed By: #### CMP, BNP ####[facility] Wpqoandgvb037[address] [place], [place] [address]Dr. Monsealyssa Diaz AST [Catalytic activity/Vol] 17 U/L Normal 15-37 [facility] Comment on above: Performed By: #### CMP, BNP ####[facility] Ogkeuvkmst2407[address] [place], [place] [address]Dr. Monsealyssa Diaz Bilirubin [Mass/Vol] 0.8 mg/dL Normal 0.2-1.0 [facility] Comment on above: Performed By: #### CMP, BNP ####[facility] Kyceizudwi7910[address] [place], [place] [address]Dr. Yuki Diaz Calcium [Mass/Vol] 8.2 mg/dL Critically low 8.5-10.1 [facility] Comment on above: Performed By: #### CMP, BNP ####[facility] Lfqajceddj4645 [place] [address]Dr. Yuki Diaz Chloride [Moles/Vol] 104 mmol/L Normal 98-107 [facility] Comment on above: Performed By: #### CMP, BNP ####[facility] Smqcgrhpeg488[address] [place], [place] [address]Dr. Yuki Diaz CO2 [Moles/Vol] 37.3 mmol/L Critically high 21.0-32.0 [facility] Comment on above: Performed By: #### CMP, BNP ####[facility] Pueapththz4358[address] [place], [place] [address]Dr. Yuki Diaz Creatinine [Mass/Vol] 1.90 mg/dL Critically high 0.70-1.30 [facility] Comment on above: Performed By: #### CMP, BNP ####[facility] Yxaxuoelrx8200 [place] [address]Dr. Yuki Diaz EGFR-AF KENYAN 42 mL/min/1.73m2 Critically low >=60 [facility] Comment on above: Performed By: #### CMP, BNP ####[facility] Yjswxgurjb9494[address] [place], [place] [address]Dr. Yuki Diaz EGFR-NON AF KENYAN 34 mL/min/1.73m2 Critically low >=60 [facility] Comment on above: Performed By: #### CMP, BNP ####[facility] Tdgcmbbghf6580[address] [place], [place] [address]Dr. Yuki Joe Globulin (S) [Mass/Vol] 3.5 g/dL Normal [facility] Comment on above: Performed By: #### CMP, BNP ####[facility] Adyjmzlnll2599[address] [place], [place] [address]Dr. Yuki Joe Glucose [Mass/Vol] 44 mg/dL Critically low 74-106 [facility] Comment on above: Result Comment: Test Repeated. Critical Value Verified Performed By: #### C MP, BNP ####[facility] Rbugvejmns701[address] [place], [place] [address]Dr. Yuki Joe Potassium [Moles/Vol] 3.0 mmol/L Critically low 3.5-5.1 [facility] Comment on above: Performed By: #### CMP, BNP ####[facility] Kqjeyojzwn5177[address] [place], [place] [address]Dr. Yuki Joe Protein [Mass/Vol] 6.3 g/dL Critically low 6.4-8.2 [facility] Comment on above: Performed By: #### CMP, BNP ####[facility] Jmufvdfmqe1389[address] [place], [place] [address]Dr. Yuki Diaz Sodium [Moles/Vol] 147 mmol/L Critically high 136-145 [facility] Comment on above: Performed By: #### CMP, BNP ####[facility] Jnmmfokruz6092 [place] [address]Dr. Yuki Diaz Urea nitrogen [Mass/Vol] 33.0 mg/dL Critically high 7.0-18.0 [facility] Comment on above: Performed By: #### CMP, BNP ####[facility] Dmfbtsjggu7843 [place] [address]Dr. Yuki Diaz Urea nitrogen/Creatin ine [Mass ratio] 17.4 mg/mg Normal [facility] Comment on above: Performed By: #### CMP, BNP ####[facility] Jbiueoiiml6890 [place] [address]Dr. Yuki Diaz BNPon 01-26-2022 Natriuretic peptide B (Bld) [Mass/Vol] 3997.0 pg/mL Critically high <=1,800.0 [facility] Comment on above: Performed By: #### BNP, CMP ####[facility] Irvtxncdkp3539[address] [place], [place] [address]Dr. Yuki Diaz CBC AUTO DIFFon 01-26-2022 BASO # 0.0 103/ul Normal 0.0-0.1 [facility] Comment on above: Performed By: #### CBC ####[facility] Hcnqowqkwh5238[address] [place], [place] [address]Dr. Yuki Diaz Basophils/100 WBC (Bld) 0.2 % Normal 0.2-2.0 [facility] Comment on above: Performed By: #### CBC ####[facility] Jcljgszhmk569[address] [place], [place] [address]Dr. Yuki Diaz EO # 0.2 103/ul Normal 0.0-0.7 [facility] Comment on above: Performed By: #### CBC ####[facility] Vigsgcwevt212[address] [place], [place] [address]Dr. Yuki Diaz Eosinophils/100 WBC (Bld) 1.6 % Normal 0.9-7.0 [facility] Comment on above: Performed By: #### CBC ####[facility] Ekngseqjgl0155[address] [place], [place] [address]Dr. Yuki Diaz Erythrocyte distribution width (RBC) [Ratio] 13.5 % Normal 11.0-15.0 [facility] Comment on above: Performed By: #### CBC ####[facility] Cbqtwhvsci4101 [address]Bebo Diaz Hematocrit (Bld) [Volume fraction] 34.9 % Critically low 42.0-54.0 [facility] Comment on above: Performed By: #### CBC ####[facility] Rlsybwmviu5200 [place] [address]DrBebo Diaz Hemoglobin (Bld) [Mass/Vol] 11.3 g/dL Critically low 14.0-18.0 [facility] Comment on above: Performed By: #### CBC ####[facility] Gujqtdxodj[address] [place], [place] [address]Bebo Diaz IG # 0.03 10e3/ul Normal 0.00-0.03 [facility] Comment on above: Performed By: #### CBC ####[facility] Qsilulxapi499[address] [place] [address]. Yuki Diaz IG % 0.3 % Normal 0.0-0.5 [facility] Comment on above: Performed By: #### CBC ####[facility] Sheodwgqwo7637[address] [place], [place] [address]DrBebo Diaz LYMPH # 1.5 103/ul Normal 1.2-3.8 [facility] Comment on above: Performed By: #### CBC ####[facility] Ebbflkokxw7628[address] [place], [place] [address]DrBebo Diaz Lymphocytes/100 WBC (Bld) 15.1 % Critically low 20.5-60.0 [facility] Comment on above: Performed By: #### CBC ####[facility] Jknyxhxica3572 [place] [address]DrBebo Diaz MANUAL DIFF REQ NO Normal [facility] Comment on above: Performed By: #### CBC ####[facility] Pycblrqoit2884 [place] [address]DrBebo Diaz MCH (RBC) [Entitic mass] 32.2 pg Normal 25.9-34.0 [facility] Comment on above: Performed By: #### CBC ####[facility] Ucantmvhyj9202 [place] [address]DrBebo Diaz MCHC (RBC) [Mass/Vol] 32.4 g/dL Normal 29.9-35.2 [facility] Comment on above: Performed By: #### CBC ####[facility] Kwyelfnltc8255 [place] [address]DrBebo Diaz MCV (RBC) [Entitic vol] 99.4 fL Critically high 80.0-94.0 [facility] Comment on above: Performed By: #### CBC ####[facility] Klhannsugi31[address] [place], [place] [address]DrBebo Diaz MONO # 1.1 103/ul Critically high 0.3-0.8 [facility] Comment on above: Performed By: #### CBC ####[facility] Wyphtykbkk37[address] [place], [place] [address]DrBebo Diaz Monocytes/100 WBC (Bld) 10.7 % Normal 1.7-12.0 [facility] Comment on above: Performed By: #### CBC ####[facility] Wusemomvbw068[address] [place], [place] [address]DrBebo Diaz NEUT # 7.3 103/ul Critically high 1.4-6.5 [facility] Comment on above: Performed By: #### CBC ####[facility] Xytoqiilmc444[address] [place], [place] [address]DrBebo Diaz Neutrophils/100 WBC (Bld) 72.1 % Normal 43.0-75.0 [facility] Comment on above: Performed By: #### CBC ####[facility] Lyxwtvvnel0920[address] [place], [place] [address]DrBebo Diaz Platelet mean volume (Bld) [Entitic vol] 10.2 fL Normal 9.5-13.5 [facility] Comment on above: Performed By: #### CBC ####[facility] Hfucqwfjqe4495[address] [place], [place] [address]Dr. Yuki Diaz PLT 208 103/ul Normal 150-450 [facility] Comment on above: Performed By: #### CBC ####[facility] Qzbcupddjc5948 [place] [address]Dr. Yuki Diaz RBC 3.51 106/ul Critically low 4.70-6.10 [facility] Comment on above: Performed By: #### CBC ####[facility] ital Zdlobvbvvk7330 [place] [address]Dr. Monsealyssa Joe WBC 10.1 103/ul Normal 4.0-11.0 [facility] Comment on above: Performed By: #### CBC ####[facility] ital Dufofhzcih8242 [place] [address]DrBebo Diaz POINT OF CARE GLUCOSEon 01-06 Glucose [Mass/Vol] 205 mg/dL Critically high 74-106 [facility] Comment on above: Performed By: #### POCGLUC ####[facility] Jbmplcemrv[address] [place], [place] [address]DrBebo Diaz Glucose [Mass/Vol] 210 mg/dL Critically high 74-106 [facility] Comment on above: Performed By: #### POCGLUC ####[facility] Lqrwudbqmh1887[address] [place], [place] [address]DrBebo Diaz Glucose [Mass/Vol] 160 mg/dL Critically high 74-106 [facility] Comment on above: Performed By: #### POCGLUC ####[facility] Xzcxsqmedi3084 [place] [address]DrBebo Diaz PROF 14(COMP METB)on 022 Albumin [Mass/Vol] 3.0 g/dL Critically low 3.4-5.0 [facility] Comment on above: Performed By: #### BNP, CMP ####[facility] Eyctzamghe7534[address] [place], [place] [address]DrBebo Diaz Albumin/Globulin [Mass ratio] 0.8 {ratio} Normal [facility] Comment on above: Performed By: #### BNP, CMP ####[facility] Hobzjcegtt6676 [place] [address]DrBebo Diaz ALP [Catalytic activity/Vol] 106 U/L Normal 46-116 [facility] Comment on above: Performed By: #### BNP, CMP ####[facility] Zcbofjvvck1759 [place] [address]Dr. Yuki Diaz ALT [Catalytic activity/Vol] 33 U/L Normal 16-63 [facility] Comment on above: Performed By: #### BNP, CMP ####[facility] Ibzaofyfwn7898 [place] [address]Dr. Yuki Joe Anion gap [Moles/Vol] 6.1 mmol/L Normal [facility] Comment on above: Performed By: #### BNP, CMP ####[facility] Pkycuvlrbp8801[address] [place], [place] [address]Dr. Yuki Joe AST [Catalytic activity/Vol] 20 U/L Normal 15-37 [facility] Comment on above: Performed By: #### BNP, CMP ####[facility] Xjcejzhcds105[address] [place], [place] [address]Dr. Monsealyssa Joe Bilirubin [Mass/Vol] 0.8 mg/dL Normal 0.2-1.0 [facility] Comment on above: Performed By: #### BNP, CMP ####[facility] Hakqbhmtek5339[address] [place], [place] [address]Dr. Yuki Diaz Calcium [Mass/Vol] 8.4 mg/dL Critically low 8.5-10.1 [facility] Comment on above: Performed By: #### BNP, CMP ####[facility] Jkekhrnpsw8550[address] [place], [place] [address]Dr. Monsealyssa Diaz Chloride [Moles/Vol] 105 mmol/L Normal 98-107 [facility] Comment on above: Performed By: #### BNP, CMP ####[facility] Sxsbkypvku5468[address] [place], [place] [address]Dr. Yuki Diaz CO2 [Moles/Vol] 40.2 mmol/L Critically high 21.0-32.0 [facility] Comment on above: Performed By: #### BNP, CMP ####[facility] Jojmkngsyq9034[address] [place], [place] [address]Dr. Yuki Diaz Creatinine [Mass/Vol] 1.88 mg/dL Critically high 0.70-1.30 [facility] Comment on above: Performed By: #### BNP, CMP ####[facility] Cheylnccju6136 [place] [address]Dr. Yuki Diaz EGFR-AF KENYAN 42 mL/min/1.73m2 Critically low >=60 [facility] Comment on above: Performed By: #### BNP, CMP ####[facility] Bhtjhhxfsu9498 [place] [address]Dr. Yuki Joe EGFR-NON AF KENYAN 35 mL/min/1.73m2 Critically low >=60 [facility] Comment on above: Performed By: #### BNP, CMP ####[facility] Ffcpccahnt6775[address] [place], [place] [address]Dr. Yuki Diaz Globulin (S) [Mass/Vol] 3.6 g/dL Normal [facility] Comment on above: Performed By: #### BNP, CMP ####[facility] Yywetclwuj3274[address] [place], [place] [address]Dr. Yuki Diaz Glucose [Mass/Vol] 62 mg/dL Critically low 74-106 [facility] Comment on above: Performed By: #### BNP, CMP ####[facility] Rvhfyedihn9347[address] [place], [place] [address]Dr. Yuki Diaz Potassium [Moles/Vol] 3.3 mmol/L Critically low 3.5-5.1 [facility] Comment on above: Performed By: #### BNP, CMP ####[facility] Jrfpogclvi4201[address] [place], [place] [address]Dr. Yuki Diaz Protein [Mass/Vol] 6.6 g/dL Normal 6.4-8.2 [facility] Comment on above: Performed By: #### BNP, CMP ####[facility] Ldjqmjdoes9778[address] [place], [place] [address]Dr. Yuki Diaz Sodium [Moles/Vol] 148 mmol/L Critically high 136-145 [facility] Comment on above: Performed By: #### BNP, CMP ####[facility] Crxcesoufz080[address] [place], [place] [address]Dr. Yuki Diaz Urea nitrogen [Mass/Vol] 29.0 mg/dL Critically high 7.0-18.0 [facility] Comment on above: Performed By: #### BNP, CMP ####[facility] Plbgjpegjo9041 [place] [address]Dr. Yuki Diaz Urea nitrogen/Creatin ine [Mass ratio] 15.4 mg/mg Normal [facility] Comment on above: Performed By: #### BNP, CMP ####[facility] Jigrkgmadt0678 [place] [address]Dr. Yuki Diaz PROF CHEM 8 (BAS METB)on Anion gap [Moles/Vol] 11.1 mmol/L Normal [facility] Comment on above: Performed By: #### BMP ####[facility] ital Wpdetulipp3341 [place] [address]Dr. Yuki Diaz Calcium [Mass/Vol] 8.1 mg/dL Critically low 8.5-10.1 [facility] Comment on above: Performed By: #### BMP ####[facility] ital Ikkefyhvim8218 [place] [address]Dr. Yuki Diaz Chloride [Moles/Vol] 102 mmol/L Normal 98-107 [facility] Comment on above: Performed By: #### BMP ####[facility] Dkdnyymzux9433 [place] [address]Dr. Yuki Diaz CO2 [Moles/Vol] 35.4 mmol/L Critically high 21.0-32.0 [facility] Comment on above: Performed By: #### BMP ####[facility] ital Hbfqkdbnsv2019 [place] [address]Dr. Yuki Diaz Creatinine [Mass/Vol] 1.88 mg/dL Critically high 0.70-1.30 [facility] Comment on above: Performed By: #### BMP ####[facility] ital Rmtdkeamxu3345 [place] [address]Dr. Yuki Diaz EGFR-AF KENYAN 42 mL/min/1.73m2 Critically low >=60 [facility] Comment on above: Performed By: #### BMP ####[facility] ital Shjutytyjb4192 [place] [id number]. Yuki Diaz EGFR-NON AF KENYAN 35 mL/min/1.73m2 Critically low >=60 [facility] Comment on above: Performed By: #### BMP ####[facility] ital Mgfzhmddhf2663 [place] [id number]. Monsealyssa Joe Glucose [Mass/Vol] 208 mg/dL Critically high 74-106 [facility] Comment on above: Performed By: #### BMP ####[facility] ital Wjeaksgwww0065 [place] [id number]. Yuki Diaz Potassium [Moles/Vol] 3.5 mmol/L Normal 3.5-5.1 [facility] Comment on above: Performed By: #### BMP ####[facility] Ewxxjdyyni3432 [place] [address]Dr. Yuki Diaz Sodium [Moles/Vol] 145 mmol/L Normal 136-145 [facility] Comment on above: Performed By: #### BMP ####[facility] Xpbevropel6138 [place] [address]Dr. Monsealyssa Diaz Urea nitrogen [Mass/Vol] 33.0 mg/dL Critically high 7.0-18.0 [facility] Comment on above: Performed By: #### BMP ####[facility] Atpjpkpvhk9266 [place] [address]Dr. Yuki Diaz Urea nitrogen/Creatin ine [Mass ratio] 17.6 mg/mg Normal [facility] Comment on above: Performed By: #### BMP ####[facility] Rizueqdetw4331 [place] [id number]. Yuki Diaz PROTIMEon 01-26-2022 INR Coag (PPP) [Relative time] 1.15 {INR} Normal [facility] Comment on above: Performed By: #### PT ####[facility] Ftrtfqniwq6058 [place] [address]Dr. Yuki Diaz INR GUIDELINES SEE BELOW Normal [facility] Comment on above: Result Comment: DESIRED INR: 2.0 - 3.0 C ONDITIONS NOT LISTED BELOW 2.5 - 3.5 FOR PROSTHETIC HEART VALVE REPLACEMENT 2.5 - 3.5 RECURRENT THROMBOSIS Performed By: #### P T ####[facility] Ujnfywzeyp[address] [place] [address]. Yuki Joe PT Coag (PPP) [Time] 12.3 s Critically high 9.0-11.6 [facility] Comment on above: Performed By: #### PT ####[facility] kacie Dcoitozqdh9413[address] [place], [place] [address]Dr. Yuki Diaz BNPon 01-25-2022 Natriuretic peptide B (Bld) [Mass/Vol] 3414.0 pg/mL Critically high <=1,800.0 [facility] Comment on above: Performed By: #### BNP, BMP ####[facility] Eofrxotuae6832[address] [place], [place] [address]Dr. Yuki Diaz CBC AUTO DIFFon 01-25-2022 BASO # 0.0 103/ul Normal 0.0-0.1 [facility] Comment on above: Performed By: #### CBC ####[facility] ital Nptqbdusaf127[address] [place], [place] [address]Dr. Yuki Diaz Basophils/100 WBC (Bld) 0.3 % Normal 0.2-2.0 [facility] Comment on above: Performed By: #### CBC ####[facility] Enpoyurmai105[address] [place], [place] [address]Dr. Yuki Diaz EO # 0.2 103/ul Normal 0.0-0.7 [facility] Comment on above: Performed By: #### CBC ####[facility] Psbeyqtqki310[address] [place], [place] [address]Dr. Yuki Diaz Eosinophils/100 WBC (Bld) 1.9 % Normal 0.9-7.0 [facility] Comment on above: Performed By: #### CBC ####[facility] Fkdhrzhebk3667[address] [place], [place] [address]Dr. Yuki Diaz Erythrocyte distribution width (RBC) [Ratio] 13.2 % Normal 11.0-15.0 [facility] Comment on above: Performed By: #### CBC ####[facility] Setoupcwgs0777 [place] [address]Dr. Yuki Diaz Hematocrit (Bld) [Volume fraction] 33.8 % Critically low 42.0-54.0 [facility] Comment on above: Performed By: #### CBC ####[facility] Oevsgkzunb4313 [place] [address]Dr. Yuki Diaz Hemoglobin (Bld) [Mass/Vol] 10.8 g/dL Critically low 14.0-18.0 [facility] Comment on above: Performed By: #### CBC ####[facility] Sbdpfwojwj4903 [place] [address]Dr. Yuki Diaz IG # 0.04 10e3/ul Critically high 0.00-0.03 [facility] Comment on above: Performed By: #### CBC ####[facility] Oojmumnspa1744[address] [place], [place] [address]Dr. Yuki Diaz IG % 0.4 % Normal 0.0-0.5 [facility] Comment on above: Performed By: #### CBC ####[facility] Bvimtmpmof8195 [place] [address]Dr. Yuki Diaz LYMPH # 1.5 103/ul Normal 1.2-3.8 [facility] Comment on above: Performed By: #### CBC ####[facility] Hufmiqbkkl3252 [place] [address]Dr. Yuki Diaz Lymphocytes/100 WBC (Bld) 14.8 % Critically low 20.5-60.0 [facility] Comment on above: Performed By: #### CBC ####[facility] Sfgukmtzqe8185 [place] [address]Dr. Yuki Diaz MANUAL DIFF REQ NO Normal [facility] Comment on above: Performed By: #### CBC ####[facility] Tcydklfzeq6961 [place] [address]Dr. Yuki Diaz MCH (RBC) [Entitic mass] 31.9 pg Normal 25.9-34.0 [facility] Comment on above: Performed By: #### CBC ####[facility] Ozyqnsekoy4132 [place] [address]Dr. Yuki Diaz MCHC (RBC) [Mass/Vol] 32.0 g/dL Normal 29.9-35.2 [facility] Comment on above: Performed By: #### CBC ####[facility] Leoguykqcg4328 [place] [address]Dr. Yuki Joe MCV (RBC) [Entitic vol] 99.7 fL Critically high 80.0-94.0 [facility] Comment on above: Performed By: #### CBC ####[facility] Tlcfmfqxaf1832 [place] [address]Dr. Yuki Diaz MONO # 1.0 103/ul Critically high 0.3-0.8 [facility] Comment on above: Performed By: #### CBC ####[facility] Qayfxieexa1020[address] [place], [place] [address]Dr. Yuki Diaz Monocytes/100 WBC (Bld) 9.8 % Normal 1.7-12.0 [facility] Comment on above: Performed By: #### CBC ####[facility] Hvwvmovjfe244[address] [place], [place] [address]Dr. Yuki Diaz NEUT # 7.1 103/ul Critically high 1.4-6.5 [facility] Comment on above: Performed By: #### CBC ####[facility] Lwfxajpxtq5951 [place] [address]Dr. Yuki Diaz Neutrophils/100 WBC (Bld) 72.8 % Normal 43.0-75.0 [facility] Comment on above: Performed By: #### CBC ####[facility] Hfysxovjou205[address] [place], [place] [address]Dr. Yuki Diaz Platelet mean volume (Bld) [Entitic vol] 10.4 fL Normal 9.5-13.5 [facility] Comment on above: Performed By: #### CBC ####[facility] Cinqctuisc4775 [place] [address]Dr. Yuki Diaz PLT 204 103/ul Normal 150-450 [facility] Comment on above: Performed By: #### CBC ####[facility] ital Ngswedasiy6022 [place] [id number]. Yuki Diaz RBC 3.39 106/ul Critically low 4.70-6.10 [facility] Comment on above: Performed By: #### CBC ####[facility] ital Gefjvxlaya5314 [place] [id number]. Yuki Diaz WBC 9.8 103/ul Normal 4.0-11.0 [facility] Comment on above: Performed By: #### CBC ####[facility] Ojydbcpvwc5983 [place] [id number]. Yuki Diaz POINT OF CARE GLUCOSEon 01-06 Glucose [Mass/Vol] 194 mg/dL Critically high 74-106 [facility] Comment on above: Performed By: #### POCGLUC ####[facility] Snjpammrbe4228 [place] [address]Dr. Yuki Diaz Glucose [Mass/Vol] 196 mg/dL Critically high 74-106 [facility] Comment on above: Performed By: #### POCGLUC ####[facility] Kkrphyfnrg8651 [place] [address]Dr. Yuki Diaz Glucose [Mass/Vol] 253 mg/dL Critically high 74-106 [facility] Comment on above: Performed By: #### POCGLUC ####[facility] Abjpqqxqmg1015 [place] [id number]. Yuki Diaz Glucose [Mass/Vol] 106 mg/dL Normal 74-106 [facility] Comment on above: Performed By: #### POCGLUC ####[facility] Bqjkdgalxy7448[address] [place], [place] [address]Dr. Yuki Diaz POTASSIUMon 01-25-2022 Potassium [Moles/Vol] 3.4 mmol/L Critically low 3.5-5.1 [facility] Comment on above: Performed By: #### K ####[facility] al Hfzecjnvdv8081 [place] [address]Dr. Yuki Diaz PROF CHEM 8 (BAS METB)on Anion gap [Moles/Vol] 9.0 mmol/L Normal [facility] Comment on above: Performed By: #### BMP ####[facility] ital Lqfaojxzsx6836 [place] [address]Dr. Yuki Diaz Calcium [Mass/Vol] 8.3 mg/dL Critically low 8.5-10.1 [facility] Comment on above: Performed By: #### BMP ####[facility] ital Alxfyggxrx3389 [place] [address]Dr. Yuki Diaz Chloride [Moles/Vol] 103 mmol/L Normal 98-107 [facility] Comment on above: Performed By: #### BMP ####[facility] ital Hrehzyufcm2141 [place] [address]Dr. Yuki Diaz CO2 [Moles/Vol] 35.9 mmol/L Critically high 21.0-32.0 [facility] Comment on above: Performed By: #### BMP ####[facility] ital Fdnwvyspji3554 [place] [address]Dr. Yuki Diaz Creatinine [Mass/Vol] 1.94 mg/dL Critically high 0.70-1.30 [facility] Comment on above: Performed By: #### BMP ####[facility] ital Qxhokbrbnc6502 [place] [address]Dr. Yuki Diaz EGFR-AF KENYAN 41 mL/min/1.73m2 Critically low >=60 [facility] Comment on above: Performed By: #### BMP ####[facility] ital Ppajwuasyx5601 [place] [address]Dr. Yuki Joe EGFR-NON AF KENYAN 34 mL/min/1.73m2 Critically low >=60 [facility] Comment on above: Performed By: #### BMP ####[facility] ital Hxhftbhpya2063 [place] [address]Dr. Yuki Diaz Glucose [Mass/Vol] 181 mg/dL Critically high 74-106 [facility] Comment on above: Performed By: #### BMP ####[facility] ital Oklwbsjvvb2747 [place] [address]Dr. Monsealyssa Diaz Potassium [Moles/Vol] 2.9 mmol/L Critically low 3.5-5.1 [facility] Comment on above: Result Comment: TEST REPEATED CRITICAL V ALUE VERIFIED Performed By: #### B MP ####[facility] Vmbpnglwkz0087 [place] [address]Dr. Yuki Diaz Sodium [Moles/Vol] 145 mmol/L Normal 136-145 [facility] Comment on above: Performed By: #### BMP ####[facility] ital Gbirsqlqac0314[address] [place], [place] [address]Dr. Yuki Diaz Urea nitrogen [Mass/Vol] 30.0 mg/dL Critically high 7.0-18.0 [facility] Comment on above: Performed By: #### BMP ####[facility] ital Zerndbleym6158[address] [place], [place] [address]Dr. Yuki Diaz Urea nitrogen/Creatin ine [Mass ratio] 15.5 mg/mg Normal [facility] Comment on above: Performed By: #### BMP ####[facility] ital Krcbhgoogb839345 [address] [place], [place] [address]Dr. Yuki Diaz Anion gap [Moles/Vol] 9.0 mmol/L Normal [facility] Comment on above: Performed By: #### BNP, BMP ####[facility] Shjrxnkzkt9569[address] [place], [place] [address]Dr. Yuki Diaz Calcium [Mass/Vol] 8.3 mg/dL Critically low 8.5-10.1 [facility] Comment on above: Performed By: #### BNP, BMP ####[facility] Csldgvvxdp9101[address] [place], [place] [address]Dr. Yuki Diaz Chloride [Moles/Vol] 104 mmol/L Normal 98-107 [facility] Comment on above: Performed By: #### BNP, BMP ####[facility] Rbmnogazbe583145 [address] [place], [place] [address]Dr. Yuki Diaz CO2 [Moles/Vol] 37.0 mmol/L Critically high 21.0-32.0 [facility] Comment on above: Performed By: #### BNP, BMP ####[facility] Nacwttdyrg2045[address] [place], [place] [address]Dr. Yuki Diaz Creatinine [Mass/Vol] 2.03 mg/dL Critically high 0.70-1.30 [facility] Comment on above: Performed By: #### BNP, BMP ####[facility] Orkvtgedmj2423 [place] [address]Dr. Yuki Diaz EGFR-AF KENYAN 39 mL/min/1.73m2 Critically low >=60 [facility] Comment on above: Performed By: #### BNP, BMP ####[facility] Bxbwpfvwab0044[address] [place], [place] [address]Dr. Yuki Joe EGFR-NON AF KENYAN 32 mL/min/1.73m2 Critically low >=60 [facility] Comment on above: Performed By: #### BNP, BMP ####[facility] Wzppddrxzo6032[address] [place], [place] [address]Dr. Yuki Diaz Glucose [Mass/Vol] 102 mg/dL Normal 74-106 [facility] Comment on above: Performed By: #### BNP, BMP ####[facility] Ujgiswvtye159545 [address] [place], [place] [address]Dr. Yuki Diaz Potassium [Moles/Vol] 3.0 mmol/L Critically low 3.5-5.1 [facility] Comment on above: Performed By: #### BNP, BMP ####[facility] Zkqmlfzddq7414[address] [place], [place] [address]Dr. Yuki Diaz Sodium [Moles/Vol] 147 mmol/L Critically high 136-145 [facility] Comment on above: Performed By: #### BNP, BMP ####[facility] Bxbpcyttdu601[address] [place], [place] [address]Dr. Yuki Diaz Urea nitrogen [Mass/Vol] 31.0 mg/dL Critically high 7.0-18.0 [facility] Comment on above: Performed By: #### BNP, BMP ####[facility] Qminuuwadx910645 [address] [place], [place] [address]Dr. Yuki Diaz Urea nitrogen/Creatin ine [Mass ratio] 15.3 mg/mg Normal [facility] Comment on above: Performed By: #### BNP, BMP ####[facility] Lfhtpwmlfn1928[address] [place], [place] [address]Dr. Yuki Diaz TROPONIN, HIGH SENSITIVITYon 01-25-2022 HSTROP 38.8 pg/mL Normal 4.0-76.1 [facility] Comment on above: Result Comment: CUT-OFF POINTS HAVE BEEN ESTABLISHED BASED ON THE FOURTH UNIVERSAL DEFINITIONS OF MYOCARDIALINFARCTION. THE UPPER REFERENCE LIMIT (URL) OF TROPONIN, DEFINED THE 99TH PERCENTILE OFcTnI DISTRIBUTION IN A REFERENCE POPULATION, HAS BEEN CONFIRMED THE DECISION THRESHOLDFOR AL DIAGNOSIS. Performed By: #### H STROPN ####[facility] Bbyqswtayk7648[address] [place], [place] [address]Dr. Yuki Diaz BNPon 01-24-2022 Natriuretic peptide B (Bld) [Mass/Vol] 3429.0 pg/mL Critically high <=1,800.0 [facility] Comment on above: Performed By: #### HSTROPN, CMADM, BNP # ###[facility] Qqncawewfv09[address] [place], [place] [address]Bebo Diaz CARDIAC RACHEL ADMITon 022 CK [Catalytic activity/Vol] 108 U/L Normal 39-308 [facility] Comment on above: Performed By: #### HSTROPN, CMADM, BNP # ###[facility] Jnaouamkld286[address] [place] [address]. Yuki Diaz CK.MB [Mass/Vol] 2.44 ng/mL Normal <=3.60 [facility] Comment on above: Performed By: #### HSTROPN, CMADM, BNP # ###[facility] Efhlzpedsr4268[address] [place], [place] [address]DrBebo Diaz DILSHAD 177 ng/mL Critically high 16-96 [facility] Comment on above: Performed By: #### HSTROPN, CMADM, BNP # ###[facility] Fmtjzhewij6750[address] [place], [place] [address]Bebo Diaz CBC AUTO DIFFon 01-24-2022 BASO # 0.0 103/ul Normal 0.0-0.1 [facility] Comment on above: Performed By: #### CBC ####[facility] Twsngcojxn033[address] [place], [place] [address]DrBebo Diaz Basophils/100 WBC (Bld) 0.3 % Normal 0.2-2.0 [facility] Comment on above: Performed By: #### CBC ####[facility] Gtvtcxlymm1573 [place] [address]Dr. Yuki Diaz EO # 0.2 103/ul Normal 0.0-0.7 [facility] Comment on above: Performed By: #### CBC ####[facility] Emvzlyoxpo468[address] [place], [place] [address]Dr. Yuki Diaz Eosinophils/100 WBC (Bld) 1.7 % Normal 0.9-7.0 [facility] Comment on above: Performed By: #### CBC ####[facility] Zwrjgqaizb476[address] [place] [address]. Yuki Diaz Erythrocyte distribution width (RBC) [Ratio] 13.5 % Normal 11.0-15.0 [facility] Comment on above: Performed By: #### CBC ####[facility] Gvxfrzjavk314[address] [place] [address]. Yuki Diaz Hematocrit (Bld) [Volume fraction] 33.3 % Critically low 42.0-54.0 [facility] Comment on above: Performed By: #### CBC ####[facility] Kfvjidvhkt7736[address] [place] [address]. Yuki Diaz Hemoglobin (Bld) [Mass/Vol] 10.8 g/dL Critically low 14.0-18.0 [facility] Comment on above: Performed By: #### CBC ####[facility] Bzzdeqxvff340[address] [place] [address]. Yuki Diaz IG # 0.04 10e3/ul Critically high 0.00-0.03 [facility] Comment on above: Performed By: #### CBC ####[facility] Xgssaolgpd177[address] [place] [address]. Yuki Diaz IG % 0.4 % Normal 0.0-0.5 [facility] Comment on above: Performed By: #### CBC ####[facility] Cjjxwgljjt[address] [place], [place] [address]Dr. Yuki Diaz LYMPH # 1.3 103/ul Normal 1.2-3.8 [facility] Comment on above: Performed By: #### CBC ####[facility] Ihrbxmvyme9325 [place] [address]Dr. uYki Joe Lymphocytes/100 WBC (Bld) 13.8 % Critically low 20.5-60.0 [facility] Comment on above: Performed By: #### CBC ####[facility] ital Zdaczujjtt9345 [place] [address]Dr. Monsealyssa Diaz MANUAL DIFF REQ NO Normal [facility] Comment on above: Performed By: #### CBC ####[facility] Tvvwbsrous7820 [place] [address]Dr. Yuki Joe MCH (RBC) [Entitic mass] 32.8 pg Normal 25.9-34.0 [facility] Comment on above: Performed By: #### CBC ####[facility] Fqugijlroe7239 [place] [address]Dr. Yuki Diaz MCHC (RBC) [Mass/Vol] 32.4 g/dL Normal 29.9-35.2 [facility] Comment on above: Performed By: #### CBC ####[facility] Sdvlutlyvp9103 [place] [address]Dr. Monsealyssa Diaz MCV (RBC) [Entitic vol] 101.2 fL Critically high 80.0-94.0 [facility] Comment on above: Performed By: #### CBC ####[facility] Llaxebhuqo3883 [place] [address]Dr. Monsealyssa Joe MONO # 0.8 103/ul Normal 0.3-0.8 [facility] Comment on above: Performed By: #### CBC ####[facility] Vqwsbigbqm2492 [place] [address]Dr. Monsealyssa Diaz Monocytes/100 WBC (Bld) 8.3 % Normal 1.7-12.0 [facility] Comment on above: Performed By: #### CBC ####[facility] Buitygihiy7311[address] [place] [address]. Yuki Diaz NEUT # 7.2 103/ul Critically high 1.4-6.5 [facility] Comment on above: Performed By: #### CBC ####[facility] Dlicggipsf7342 [place] [address]Dr. Yuki Diaz Neutrophils/100 WBC (Bld) 75.5 % Critically high 43.0-75.0 [facility] Comment on above: Performed By: #### CBC ####[facility] Abthihfzpn7340 [place] [address]Dr. Yuki Diaz Platelet mean volume (Bld) [Entitic vol] 10.6 fL Normal 9.5-13.5 [facility] Comment on above: Performed By: #### CBC ####[facility] Xqwnvptboy8703 [place] [address]Dr. Yuki Diaz PLT 215 103/ul Normal 150-450 [facility] Comment on above: Performed By: #### CBC ####[facility] Sdzgapkzoh2620 [place] [address]Dr. Yuki Diaz RBC 3.29 106/ul Critically low 4.70-6.10 [facility] Comment on above: Performed By: #### CBC ####[facility] Rbbcdfuipc6879 [place] [address]Dr. Yuki Diaz WBC 9.5 103/ul Normal 4.0-11.0 [facility] Comment on above: Performed By: #### CBC ####[facility] Amkabbxumm7889 [place] [address]Dr. Yuki Diaz [facility]on [facility]06 SARS-CoV-2 (COVID-19) RNA JARVIS+probe Ql (Unsp spec) Not detected Normal NOT DETECTED [facility] Comment on above: Result Comment: When diagnostic testing is negative, the possibility of a false negative should be considered inthe context of a patient's recent exposures and the presence of clinical signs and symptomsconsistent with SARS-CoV-2.This test is not yet approved or cleared by the [place] FDA. When there are no FDA-approved or cleared tests available, and other criteria are met, FDA can make tests available under an emergency access mechanism called an Emergency Use Authorization (EUA). The EUA for this test is supported by the Costing Manager of Health and Human Service's declaration that circumstances exist to justify the emergency use of in vitro diagnostics for the detection and/or diagnosis of the virus that causes COVID-19. This EUA will remain in effect for the duration of the COVID-19 declaration justifying emergency of IVDs, unless it is terminated or revoked by the FDA (after which the test may no longer be used). Performed By: #### C VDTB ####[facility] Ffykkxrkrp[address] [place] [address]Dr. Yuki Diaz PROF 14(COMP METB)on 022 Albumin [Mass/Vol] 2.8 g/dL Critically low 3.4-5.0 [facility] Comment on above: Performed By: #### CMP ####[facility] Napdgoqrpk[address] [place], [place] [address]Dr. Yuki Diaz Albumin/Globulin [Mass ratio] 0.8 {ratio} Normal [facility] Comment on above: Performed By: #### CMP ####[facility] Cuwsucdlyc[address] [place], [place] [address]Dr. Yuki Diaz ALP [Catalytic activity/Vol] 96 U/L Normal 46-116 [facility] Comment on above: Performed By: #### CMP ####[facility] Zyyfzpohan030[address] [place], [place] [address]Dr. Yuki Diaz ALT [Catalytic activity/Vol] 32 U/L Normal 16-63 [facility] Comment on above: Performed By: #### CMP ####[facility] Srhnzcmufw2335[address] [place], [place] [address]Dr. Yuki Diaz Anion gap [Moles/Vol] 12.6 mmol/L Normal [facility] Comment on above: Performed By: #### CMP ####[facility] Hidrkzqahh528[address] [place], [place] [address]Dr. Yuki Diaz AST [Catalytic activity/Vol] 19 U/L Normal 15-37 [facility] Comment on above: Performed By: #### CMP ####[facility] Bwvdbtpqco4[address] [place] [address]Dr. Yuki Diaz Bilirubin [Mass/Vol] 0.7 mg/dL Normal 0.2-1.0 [facility] Comment on above: Performed By: #### CMP ####[facility] Esffqoyvzm7[address] [place] [address]Dr. Yuki Diaz Calcium [Mass/Vol] 8.2 mg/dL Critically low 8.5-10.1 [facility] Comment on above: Performed By: #### CMP ####[facility] Mosktyremz[address] [place] [address]Dr. Yuki Diaz Chloride [Moles/Vol] 103 mmol/L Normal 98-107 [facility] Comment on above: Performed By: #### CMP ####[facility] Pwsictudbc8699 [place] [address]Dr. Yuki Diaz CO2 [Moles/Vol] 31.2 mmol/L Normal 21.0-32.0 [facility] Comment on above: Performed By: #### CMP ####[facility] Qzrbemevew13[address] [place], [place] [address]Dr. Yuki Diaz Creatinine [Mass/Vol] 2.24 mg/dL Critically high 0.70-1.30 [facility] Comment on above: Performed By: #### CMP ####[facility] Bldnalkvui1549 [place] [address]Dr. Yuki Diaz EGFR-AF KENYAN 34 mL/min/1.73m2 Critically low >=60 [facility] Comment on above: Performed By: #### CMP ####[facility] Ruqegureqt6581 [place] [address]Dr. Yuki Diaz EGFR-NON AF KENYAN 28 mL/min/1.73m2 Critically low >=60 [facility] Comment on above: Performed By: #### CMP ####[facility] Danfyjcmaq6914 [place] [address]Dr. Yuki Diaz Globulin (S) [Mass/Vol] 3.4 g/dL Normal [facility] Comment on above: Performed By: #### CMP ####[facility] Lgyhatqott3516 [place] [address]Dr. Yuki Diaz Glucose [Mass/Vol] 123 mg/dL Critically high 74-106 [facility] Comment on above: Performed By: #### CMP ####[facility] Oxduxqylub7036 [place] [address]Dr. Yuki Diaz Potassium [Moles/Vol] 2.7 mmol/L Critically low 3.5-5.1 [facility] Comment on above: Performed By: #### CMP ####[facility] Nbvkgrjzbv4815 [place] [address]Dr. Yuki Diaz Protein [Mass/Vol] 6.2 g/dL Critically low 6.4-8.2 [facility] Comment on above: Performed By: #### CMP ####[facility] Ddekajglpw3141 [place] [address]Dr. Yuki Diaz Sodium [Moles/Vol] 142 mmol/L Normal 136-145 [facility] Comment on above: Performed By: #### CMP ####[facility] Endpanbnql0775 [place] [address]Dr. Yuki Diaz Urea nitrogen [Mass/Vol] 29.0 mg/dL Critically high 7.0-18.0 [facility] Comment on above: Performed By: #### CMP ####[facility] Vgdtmxkado7964 [place] [address]Dr. Yuki Diaz Urea nitrogen/Creatin ine [Mass ratio] 12.9 mg/mg Normal [facility] Comment on above: Performed By: #### CMP ####[facility] Skfplxpvbi3081 [place] [address]Dr. Yuki Diaz TROPONIN, HIGH SENSITIVITYon 01-24-2022 HSTROP 33.1 pg/mL Normal 4.0-76.1 [facility] Comment on above: Result Comment: CUT-OFF POINTS HAVE BEEN ESTABLISHED BASED ON THE FOURTH UNIVERSAL DEFINITIONS OF MYOCARDIALINFARCTION. THE UPPER REFERENCE LIMIT (URL) OF TROPONIN, DEFINED THE 99TH PERCENTILE OFcTnI DISTRIBUTION IN A REFERENCE POPULATION, HAS BEEN CONFIRMED THE DECISION THRESHOLDFOR AL DIAGNOSIS. Performed By: #### H STROPN, CMADM, BNP ####[facility] Jtolkliebm1540 [place] [address]Dr. Yuki Diaz XR CHEST 1 Von 01-24-2022 XR CHEST 1 V Normal [facility] BNPon 01-12-2022 Natriuretic peptide B (Bld) [Mass/Vol] 2759.0 pg/mL Critically high <=1,800.0 [facility] Comment on above: Performed By: #### CMP, BNP ####[facility] Tmxlnpwjtk639[address] [place], [place] [address]Dr. Yuki Diaz PROF 14(COMP METB)on 022 Albumin [Mass/Vol] 2.9 g/dL Critically low 3.4-5.0 [facility] Comment on above: Performed By: #### CMP, BNP ####[facility] Tnaguqsbdq027[address] [place], [place] [address]Dr. Yuki Diaz Albumin/Globulin [Mass ratio] 0.8 {ratio} Normal [facility] Comment on above: Performed By: #### CMP, BNP ####[facility] Eoukxhuash0464[address] [place], [place] [address]Dr. Yuki Diaz ALP [Catalytic activity/Vol] 100 U/L Normal 46-116 [facility] Comment on above: Performed By: #### CMP, BNP ####[facility] Buqligfdzb9301[address] [place], [place] [address]Dr. Yuki Diaz ALT [Catalytic activity/Vol] 43 U/L Normal 16-63 [facility] Comment on above: Performed By: #### CMP, BNP ####[facility] Hylloaxqmx5937[address] [place], [place] [address]Dr. Yuki Diaz Anion gap [Moles/Vol] 7.6 mmol/L Normal [facility] Comment on above: Performed By: #### CMP, BNP ####[facility] Bnqqkutjwu6698[address] [place], [place] [address]Dr. Yuki Diaz AST [Catalytic activity/Vol] 22 U/L Normal 15-37 [facility] Comment on above: Performed By: #### CMP, BNP ####[facility] Rrlksaqcwu082[address] [place], [place] [address]Dr. Yuki Diaz Bilirubin [Mass/Vol] 0.8 mg/dL Normal 0.2-1.0 [facility] Comment on above: Performed By: #### CMP, BNP ####[facility] Ovocxruian20[address] [place], [place] [address]Dr. Yuki Daiz Calcium [Mass/Vol] 8.0 mg/dL Critically low 8.5-10.1 [facility] Comment on above: Performed By: #### CMP, BNP ####[facility] Vkapktrriz2025[address] [place], [place] [address]Dr. Yuki Diaz Chloride [Moles/Vol] 107 mmol/L Normal 98-107 [facility] Comment on above: Performed By: #### CMP, BNP ####[facility] Dcxfnerpfb803[address] [place], [place] [address]Dr. Yuki Diaz CO2 [Moles/Vol] 37.1 mmol/L Critically high 21.0-32.0 [facility] Comment on above: Performed By: #### CMP, BNP ####[facility] Mwmqfrgdao3464[address] [place], [place] [address]Dr. Yuki Diaz Creatinine [Mass/Vol] 1.94 mg/dL Critically high 0.70-1.30 [facility] Comment on above: Performed By: #### CMP, BNP ####[facility] Bwjkwosstd0085[address] [place], [place] [address]Dr. Yuki Joe EGFR-AF KENYAN 41 mL/min/1.73m2 Critically low >=60 [facility] Comment on above: Performed By: #### CMP, BNP ####[facility] Gkwpgcpgas1890[address] [place], [place] [address]Dr. Yuki Joe EGFR-NON AF KENYAN 34 mL/min/1.73m2 Critically low >=60 [facility] Comment on above: Performed By: #### CMP, BNP ####[facility] Hpcukpcuuq5598[address] [place], [place] [address]Dr. Yuki Joe Globulin (S) [Mass/Vol] 3.5 g/dL Normal [facility] Comment on above: Performed By: #### CMP, BNP ####[facility] Lpzjccuryh55[address] [place] [address]Dr. Yuki Diaz Glucose [Mass/Vol] 76 mg/dL Normal 74-106 [facility] Comment on above: Performed By: #### CMP, BNP ####[facility] Mfhkwedhhx858[address] [place], [place] [address]Dr. Yuki Diaz Potassium [Moles/Vol] 3.7 mmol/L Normal 3.5-5.1 [facility] Comment on above: Performed By: #### CMP, BNP ####[facility] Ondbunlspv187[address] [place], [place] [address]Dr. Yuki Diaz Protein [Mass/Vol] 6.4 g/dL Normal 6.4-8.2 [facility] Comment on above: Performed By: #### CMP, BNP ####[facility] Hdjlsihdfw862[address] [place], [place] [address]Dr. Yuki Diaz Sodium [Moles/Vol] 148 mmol/L Critically high 136-145 [facility] Comment on above: Performed By: #### CMP, BNP ####[facility] Fcsxhqdilo713[address] [place], [place] [address]Dr. Yuki Diaz Urea nitrogen [Mass/Vol] 35.0 mg/dL Critically high 7.0-18.0 [facility] Comment on above: Performed By: #### CMP, BNP ####[facility] Ieonvgndzt374[address] [place], [place] [address]Dr. Yuki Diaz Urea nitrogen/Creatin ine [Mass ratio] 18.0 mg/mg Normal [facility] Comment on above: Performed By: #### CMP, BNP ####[facility] Tiuvxfwdqi276[address] [place], [place] [address]Dr. Yuki Diaz BNPon 12-30-2021 Natriuretic peptide B (Bld) [Mass/Vol] 4262.0 pg/mL Critically high <=1,800.0 [facility] Comment on above: Result Comment: repeated Performed By: #### C MP, BNP ####[facility] Qhvhwewcjj496[address] [place], [place] [address]Dr. Yuki Diaz CBC AUTO DIFFon 12-30-2021 BASO # 0.0 103/ul Normal 0.0-0.1 [facility] Comment on above: Performed By: #### CBC ####[facility] Bguidqnvez1867 [place] [address]Dr. Yuki Diaz Basophils/100 WBC (Bld) 0.2 % Normal 0.2-2.0 [facility] Comment on above: Performed By: #### CBC ####[facility] Qzjtqqwmgo1136 [place] [address]Dr. Yuki Diaz EO # 0.1 103/ul Normal 0.0-0.7 [facility] Comment on above: Performed By: #### CBC ####[facility] Svkddpxorf6577 [place] [address]Dr. Yuki Diaz Eosinophils/100 WBC (Bld) 1.3 % Normal 0.9-7.0 [facility] Comment on above: Performed By: #### CBC ####[facility] Tfdldedbgs8848 [place] [address]Dr. Yuki Diaz Erythrocyte distribution width (RBC) [Ratio] 13.9 % Normal 11.0-15.0 [facility] Comment on above: Performed By: #### CBC ####[facility] Ucttdspahw1435 [place] [address]Dr. Yuki Diaz Hematocrit (Bld) [Volume fraction] 35.6 % Critically low 42.0-54.0 [facility] Comment on above: Performed By: #### CBC ####[facility] Ccxiqnizxk6256 [place] [address]Dr. Yuki Diaz Hemoglobin (Bld) [Mass/Vol] 11.6 g/dL Critically low 14.0-18.0 [facility] Comment on above: Performed By: #### CBC ####[facility] Ryusyyobns8821 [place] [address]Dr. Monsealyssa Diaz IG # 0.02 10e3/ul Normal 0.00-0.03 [facility] Comment on above: Performed By: #### CBC ####[facility] Szrzhjyuhv57[address] [place] [id number]. Yuki Diaz IG % 0.2 % Normal 0.0-0.5 [facility] Comment on above: Performed By: #### CBC ####[facility] Zhiaoduayl5183 [place] [address]Dr. Yuki Diaz LYMPH # 1.5 103/ul Normal 1.2-3.8 [facility] Comment on above: Performed By: #### CBC ####[facility] Iiojdgaerf0522 [place] [address]Dr. Yuki Diaz Lymphocytes/100 WBC (Bld) 17.6 % Critically low 20.5-60.0 [facility] Comment on above: Performed By: #### CBC ####[facility] Ikhjilfhpd5155 [place] [address]Dr. Monsealyssa Diaz MANUAL DIFF REQ NO Normal [facility] Comment on above: Performed By: #### CBC ####[facility] Oublkkkern3689 [place] [address]Dr. Yuki Joe MCH (RBC) [Entitic mass] 32.3 pg Normal 25.9-34.0 [facility] Comment on above: Performed By: #### CBC ####[facility] Dtbwdqphvf5814 [place] [address]Dr. Yuki Diaz MCHC (RBC) [Mass/Vol] 32.6 g/dL Normal 29.9-35.2 [facility] Comment on above: Performed By: #### CBC ####[facility] Ectcyzvtmm5334 [place] [address]Dr. Yuki Joe MCV (RBC) [Entitic vol] 99.2 fL Critically high 80.0-94.0 [facility] Comment on above: Performed By: #### CBC ####[facility] Ppqusrrwiz2688 [place] [address]Dr. Monsealyssa Diaz MONO # 0.9 103/ul Critically high 0.3-0.8 [facility] Comment on above: Performed By: #### CBC ####[facility] Kvhezfnrgi9418 [place] [address]Dr. Yuki Diaz Monocytes/100 WBC (Bld) 10.9 % Normal 1.7-12.0 [facility] Comment on above: Performed By: #### CBC ####[facility] Lhexmtyxlv8960 [place] [address]Dr. Yuki Diaz NEUT # 5.7 103/ul Normal 1.4-6.5 [facility] Comment on above: Performed By: #### CBC ####[facility] Fsioppgpjc6340 [place] [address]Dr. Yuki Diaz Neutrophils/100 WBC (Bld) 69.8 % Normal 43.0-75.0 [facility] Comment on above: Performed By: #### CBC ####[facility] Eubctfnzzt7951 [place] [address]Dr. Yuki Diaz Platelet mean volume (Bld) [Entitic vol] 10.3 fL Normal 9.5-13.5 [facility] Comment on above: Performed By: #### CBC ####[facility] Bpvrqednen7546 [place] [address]Dr. Yuki Diaz PLT 182 103/ul Normal 150-450 [facility] Comment on above: Performed By: #### CBC ####[facility] Mwavojouyg4912 [place] [address]Dr. Yuki Diaz RBC 3.59 106/ul Critically low 4.70-6.10 [facility] Comment on above: Performed By: #### CBC ####[facility] Etvdrivcwx5171 [place] [address]Dr. Yuki Diaz WBC 8.2 103/ul Normal 4.0-11.0 [facility] Comment on above: Performed By: #### CBC ####[facility] Zxtizrfrac6302 [place] [address]Dr. Yuki Diaz POINT OF CARE GLUCOSEon 05-2 Glucose [Mass/Vol] 134 mg/dL Critically high 74-106 [facility] Comment on above: Performed By: #### POCGLUC ####[facility] Ffapsknmyv400[address] [place], [place] [address]Dr. Yuki Diaz PROF 14(COMP METB)on 022 Albumin [Mass/Vol] 2.9 g/dL Critically low 3.4-5.0 [facility] Comment on above: Performed By: #### CMP, BNP ####[facility] Mchuxdrmxn647[address] [place], [place] [address]Dr. Yuki Diaz Albumin/Globulin [Mass ratio] 0.9 {ratio} Normal [facility] Comment on above: Performed By: #### CMP, BNP ####[facility] Pqzscpewek53[address] [place], [place] [address]Dr. Yuki Diaz ALP [Catalytic activity/Vol] 87 U/L Normal 46-116 [facility] Comment on above: Performed By: #### CMP, BNP ####[facility] Jgwdimfiqw225145 [address] [place], [place] [address]Dr. Yuki Diaz ALT [Catalytic activity/Vol] 92 U/L Critically high 16-63 [facility] Comment on above: Performed By: #### CMP, BNP ####[facility] Cvqidgcwwx512[address] [place], [place] [address]Dr. Yuki Diaz Anion gap [Moles/Vol] 8.4 mmol/L Normal [facility] Comment on above: Performed By: #### CMP, BNP ####[facility] Iangglyszh2515[address] [place], [place] [address]Dr. Yuki Diaz AST [Catalytic activity/Vol] 29 U/L Normal 15-37 [facility] Comment on above: Performed By: #### CMP, BNP ####[facility] Rlrnshgaba538[address] [place], [place] [address]Dr. Yuki Diaz Bilirubin [Mass/Vol] 0.8 mg/dL Normal 0.2-1.0 [facility] Comment on above: Performed By: #### CMP, BNP ####[facility] Qrpypealwa5474[address] [place], [place] [address]Dr. Yuki Diaz Calcium [Mass/Vol] 8.3 mg/dL Critically low 8.5-10.1 [facility] Comment on above: Performed By: #### CMP, BNP ####[facility] Fztixpanqo8659 [place] [address]Dr. Yuki Diaz Chloride [Moles/Vol] 105 mmol/L Normal 98-107 [facility] Comment on above: Performed By: #### CMP, BNP ####[facility] Mspkagishg5808[address] [place], [place] [address]Dr. Yuki Diaz CO2 [Moles/Vol] 34.1 mmol/L Critically high 21.0-32.0 [facility] Comment on above: Performed By: #### CMP, BNP ####[facility] Axwpapdsoz7004[address] [place], [place] [address]Dr. Yuki Diaz Creatinine [Mass/Vol] 1.98 mg/dL Critically high 0.70-1.30 [facility] Comment on above: Performed By: #### CMP, BNP ####[facility] Tbflfceqhm938[address] [place], [place] [address]Dr. Yuki Diaz EGFR-AF KENYAN 40 mL/min/1.73m2 Critically low >=60 [facility] Comment on above: Performed By: #### CMP, BNP ####[facility] Guitrdcmby7[address] [place], [place] [address]Dr. Yuki Diaz EGFR-NON AF KENYAN 33 mL/min/1.73m2 Critically low >=60 [facility] Comment on above: Performed By: #### CMP, BNP ####[facility] Bkzujgkunk006[address] [place], [place] [address]Dr. Yuki Diaz Globulin (S) [Mass/Vol] 3.4 g/dL Normal [facility] Comment on above: Performed By: #### CMP, BNP ####[facility] Ulqnoilxgo5170[address] [place], [place] [address]Dr. Yuki Diaz Glucose [Mass/Vol] 129 mg/dL Critically high 74-106 [facility] Comment on above: Performed By: #### CMP, BNP ####[facility] Ilzwszyxjx9259[address] [place], [place] [address]Dr. Yuki Diaz Potassium [Moles/Vol] 3.5 mmol/L Normal 3.5-5.1 [facility] Comment on above: Performed By: #### CMP, BNP ####[facility] Jttlaxqmkm0950[address] [place], [place] [address]Dr. Yuki Diaz Protein [Mass/Vol] 6.3 g/dL Critically low 6.4-8.2 [facility] Comment on above: Performed By: #### CMP, BNP ####[facility] Yvodqvyciu704[address] [place], [place] [address]Dr. Yuki Diaz Sodium [Moles/Vol] 144 mmol/L Normal 136-145 [facility] Comment on above: Performed By: #### CMP, BNP ####[facility] Ogmfwbwjye4620[address] [place], [place] [address]Dr. Yuki Diaz Urea nitrogen [Mass/Vol] 37.0 mg/dL Critically high 7.0-18.0 [facility] Comment on above: Performed By: #### CMP, BNP ####[facility] Yjrbztuuhf5364[address] [place], [place] [address]Dr. Yuki Diaz Urea nitrogen/Creatin ine [Mass ratio] 18.7 mg/mg Normal [facility] Comment on above: Performed By: #### CMP, BNP ####[facility] Szpjehnkmx256[address] [place], [place] [address]Dr. Yuki Diaz BNPon 12-29-2021 Natriuretic peptide B (Bld) [Mass/Vol] 2335.0 pg/mL Critically high <=1,800.0 [facility] Comment on above: Result Comment: repeated Performed By: #### C MP, BNP ####[facility] Xzqrlyhsui7975[address] [place], [place] [address]Dr. Yuki Diaz CBC AUTO DIFFon 12-29-2021 BASO # 0.0 103/ul Normal 0.0-0.1 [facility] Comment on above: Performed By: #### CBC ####[facility] Xkattlokxp06[address] [place], [place] [address]Dr. Yuki Diaz Basophils/100 WBC (Bld) 0.3 % Normal 0.2-2.0 [facility] Comment on above: Performed By: #### CBC ####[facility] Xhnuusxihc1184[address] [place], [place] [address]Dr. Yuki Diaz EO # 0.1 103/ul Normal 0.0-0.7 [facility] Comment on above: Performed By: #### CBC ####[facility] Asqvkcaxnh8225 [place] [address]Dr. Yuki Diaz Eosinophils/100 WBC (Bld) 1.4 % Normal 0.9-7.0 [facility] Comment on above: Performed By: #### CBC ####[facility] Eswphcchqa2877 [place] [address]Dr. Yuki Diaz Erythrocyte distribution width (RBC) [Ratio] 14.2 % Normal 11.0-15.0 [facility] Comment on above: Performed By: #### CBC ####[facility] Zoguwksjcl9039 [place] [address]Dr. Yuki Diaz Hematocrit (Bld) [Volume fraction] 34.3 % Critically low 42.0-54.0 [facility] Comment on above: Performed By: #### CBC ####[facility] Zfkdwnplbp9759 [place] [address]Dr. Yuki Diaz Hemoglobin (Bld) [Mass/Vol] 11.0 g/dL Critically low 14.0-18.0 [facility] Comment on above: Performed By: #### CBC ####[facility] Czbhxenccq[address] Yuki Diaz IG # 0.03 10e3/ul Normal 0.00-0.03 [facility] Comment on above: Performed By: #### CBC ####[facility] Vufznaohlu7040 [place] [address]Dr. Yuki Diaz IG % 0.4 % Normal 0.0-0.5 [facility] Comment on above: Performed By: #### CBC ####[facility] Gbbjgoppaq80[address] Yuki Diaz LYMPH # 1.3 103/ul Normal 1.2-3.8 [facility] Comment on above: Performed By: #### CBC ####[facility] Dneahhpqyp3873 [place] [address]Dr. Monsealyssa Diaz Lymphocytes/100 WBC (Bld) 18.5 % Critically low 20.5-60.0 [facility] Comment on above: Performed By: #### CBC ####[facility] Fakeuguznp7614 [place] [address]Dr. Monsealyssa Diaz MANUAL DIFF REQ NO Normal [facility] Comment on above: Performed By: #### CBC ####[facility] Bmvzusuhmy7856 [place] [address]Dr. Yuki Diaz MCH (RBC) [Entitic mass] 31.7 pg Normal 25.9-34.0 [facility] Comment on above: Performed By: #### CBC ####[facility] Tppgdrkhck4348 [place] [address]Dr. Yuki Diaz MCHC (RBC) [Mass/Vol] 32.1 g/dL Normal 29.9-35.2 [facility] Comment on above: Performed By: #### CBC ####[facility] Lwuwshxnft7738 [place] [address]Dr. Yuki Diaz MCV (RBC) [Entitic vol] 98.8 fL Critically high 80.0-94.0 [facility] Comment on above: Performed By: #### CBC ####[facility] Otlfzvqmeb[address] [place], [place] [address]Dr. Yuki Diaz MONO # 0.7 103/ul Normal 0.3-0.8 [facility] Comment on above: Performed By: #### CBC ####[facility] Hjpngqggpz5346 [place] [address]Dr. Yuki Diaz Monocytes/100 WBC (Bld) 10.6 % Normal 1.7-12.0 [facility] Comment on above: Performed By: #### CBC ####[facility] Yjukhevnuv5[address] [place], [place] [address]Dr. Yuki Diaz NEUT # 4.8 103/ul Normal 1.4-6.5 [facility] Comment on above: Performed By: #### CBC ####[facility] Pmxefakrtt[address] [place], [place] [id number]. Yuki Diaz Neutrophils/100 WBC (Bld) 68.8 % Normal 43.0-75.0 [facility] Comment on above: Performed By: #### CBC ####[facility] Dkhuwwzqfg2997 [place] [address]Dr. Yuki Diaz Platelet mean volume (Bld) [Entitic vol] 10.5 fL Normal 9.5-13.5 [facility] Comment on above: Performed By: #### CBC ####[facility] Udegxkjggq9857 [place] [address]Dr. Yuki Diaz PLT 183 103/ul Normal 150-450 [facility] Comment on above: Performed By: #### CBC ####[facility] Nntrssniqj3899 [place] [address]Dr. Yuki Diaz RBC 3.47 106/ul Critically low 4.70-6.10 [facility] Comment on above: Performed By: #### CBC ####[facility] Hilljfcyzq795[address] [place], [place] [address]Dr. Yuki Diaz WBC 7.0 103/ul Normal 4.0-11.0 [facility] Comment on above: Performed By: #### CBC ####[facility] Ndrupairsn1597 [place] [address]Dr. Yuki Diaz CULTURE URINEon 12-29-2021 CULTURE URINE Culture Observations : NO GROWTH. Normal [facility] Comment on above: Performed By: #### URCX ####[facility] pital Vznbwgurfa[address] [place], [place] [address]Dr. Yuki Diaz ECHO LIMITED STUDYon 022 ECHO LIMITED STUDY Normal [facility] POINT OF CARE GLUCOSEon 12-06 Glucose [Mass/Vol] 143 mg/dL Critically high 74-106 [facility] Comment on above: Performed By: #### POCGLUC ####[facility] Zoqksdtyoa9246 [place] [address]Dr. Yuki Diaz Glucose [Mass/Vol] 141 mg/dL Critically high 74-106 [facility] Comment on above: Performed By: #### POCGLUC ####[facility] Dcctklenlr6073 [place] [address]Dr. Yuki Diaz Glucose [Mass/Vol] 190 mg/dL Critically high 74-106 [facility] Comment on above: Performed By: #### POCGLUC ####[facility] Hmhpuiubgj5195 [place] [address]Dr. Yuki Diaz PROF 14(COMP METB)on 022 Albumin [Mass/Vol] 2.5 g/dL Critically low 3.4-5.0 [facility] Comment on above: Performed By: #### CMP, BNP ####[facility] Ewhgalftky[address] [place], [place] [address]Dr. Yuki Diaz Albumin/Globulin [Mass ratio] 0.8 {ratio} Normal [facility] Comment on above: Performed By: #### CMP, BNP ####[facility] Kpllmkbszf770[address] [place], [place] [address]Dr. Yuki Diaz ALP [Catalytic activity/Vol] 77 U/L Normal 46-116 [facility] Comment on above: Performed By: #### CMP, BNP ####[facility] Itkhypbsfk[address] [place], [place] [address]Dr. Yuki Diaz ALT [Catalytic activity/Vol] 103 U/L Critically high 16-63 [facility] Comment on above: Performed By: #### CMP, BNP ####[facility] Gkwcieisrx54[address] [place], [place] [address]Dr. Yuki Diaz Anion gap [Moles/Vol] 12.3 mmol/L Normal [facility] Comment on above: Performed By: #### CMP, BNP ####[facility] Mqynfotbwp60[address] [place], [place] [address]Dr. Yuki Diaz AST [Catalytic activity/Vol] 41 U/L Critically high 15-37 [facility] Comment on above: Performed By: #### CMP, BNP ####[facility] Fyjojpekpp[address] [place] [address]Dr. Yuki Diaz Bilirubin [Mass/Vol] 0.7 mg/dL Normal 0.2-1.0 [facility] Comment on above: Performed By: #### CMP, BNP ####[facility] Xbjbloykcu350[address] [place] [address]Dr. Yuki Diaz Calcium [Mass/Vol] 8.2 mg/dL Critically low 8.5-10.1 [facility] Comment on above: Performed By: #### CMP, BNP ####[facility] Lkfcblhjdf5[address] [place], [place] [address]Dr. Yuki Diaz Chloride [Moles/Vol] 108 mmol/L Critically high 98-107 [facility] Comment on above: Performed By: #### CMP, BNP ####[facility] Ftbumicoeg[address] [place], [place] [address]Dr. Yuki Diaz CO2 [Moles/Vol] 28.4 mmol/L Normal 21.0-32.0 [facility] Comment on above: Performed By: #### CMP, BNP ####[facility] Jhkhurmpxr17[address] [place], [place] [address]Dr. Yuki Diaz Creatinine [Mass/Vol] 1.74 mg/dL Critically high 0.70-1.30 [facility] Comment on above: Performed By: #### CMP, BNP ####[facility] Yrdtxggdum[address] [place], [place] [address]Dr. Yuki Diaz EGFR-AF KENYAN 46 mL/min/1.73m2 Critically low >=60 [facility] Comment on above: Performed By: #### CMP, BNP ####[facility] Hmnoneljis10[address] [place], [place] [address]Dr. Yuki Diaz EGFR-NON AF KENYAN 38 mL/min/1.73m2 Critically low >=60 [facility] Comment on above: Performed By: #### CMP, BNP ####[facility] Gbvvwwnyup[address] [place], [place] [address]Dr. Yuki Diaz Globulin (S) [Mass/Vol] 3.1 g/dL Normal [facility] Comment on above: Performed By: #### CMP, BNP ####[facility] Zwhvsaxpee359[address] [place], [place] [address]Dr. Yuki Joe Glucose [Mass/Vol] 103 mg/dL Normal 74-106 [facility] Comment on above: Performed By: #### CMP, BNP ####[facility] Mnzcleesxy6172 [place] [address]Dr. Yuki Diaz Potassium [Moles/Vol] 3.7 mmol/L Normal 3.5-5.1 [facility] Comment on above: Performed By: #### CMP, BNP ####[facility] Ngzlrtldis384[address] [place], [place] [address]Dr. Yuki Diaz Protein [Mass/Vol] 5.6 g/dL Critically low 6.4-8.2 [facility] Comment on above: Performed By: #### CMP, BNP ####[facility] Ncsncyigyb1337[address] [place], [place] [address]Dr. Yuki Diaz Sodium [Moles/Vol] 145 mmol/L Normal 136-145 [facility] Comment on above: Performed By: #### CMP, BNP ####[facility] Oanmilqshw8857[address] [place], [place] [address]Dr. Yuki Diaz Urea nitrogen [Mass/Vol] 33.0 mg/dL Critically high 7.0-18.0 [facility] Comment on above: Performed By: #### CMP, BNP ####[facility] Ijtwrfjksw715[address] [place], [place] [address]Dr. Yuki Diaz Urea nitrogen/Creatin ine [Mass ratio] 19.0 mg/mg Normal [facility] Comment on above: Performed By: #### CMP, BNP ####[facility] Ocxtocecad67[address] [place], [place] [address]Dr. Yuki Diaz BNPon 12-28-2021 Natriuretic peptide B (Bld) [Mass/Vol] 1699.0 pg/mL Normal <=1,800.0 [facility] Comment on above: Performed By: #### TSH, BNP, CMP ####[facility] Qjvoykehgw9[address] [place], [place] [address]Dr. Yuki Diaz CARDIAC RACHEL 3-6on 2 CK [Catalytic activity/Vol] 93 U/L Normal 39-308 [facility] Comment on above: Performed By: #### CMREP ####[facility] Vgeludmcde[address] [place] [id number]. Yuki Diaz CK.MB [Mass/Vol] 2.99 ng/mL Normal <=3.60 [facility] Comment on above: Performed By: #### CMREP ####[facility] Mkpspxmuls7370 [place] [id number]. Yuki Diaz HSTROP 30.7 pg/mL Normal 4.0-76.1 [facility] Comment on above: Result Comment: CUT-OFF POINTS HAVE BEEN ESTABLISHED BASED ON THE FOURTH UNIVERSAL DEFINITIONS OF MYOCARDIALINFARCTION. THE UPPER REFERENCE LIMIT (URL) OF TROPONIN, DEFINED THE 99TH PERCENTILE OFcTnI DISTRIBUTION IN A REFERENCE POPULATION, HAS BEEN CONFIRMED THE DECISION THRESHOLDFOR AL DIAGNOSIS. Performed By: #### C MREP ####[facility] Quewplurwm6218 [place] [address]Dr. Yuki Diaz CK [Catalytic activity/Vol] 107 U/L Normal 39-308 [facility] Comment on above: Performed By: #### CMREP ####[facility] Doqyojegng6775 [place] [id number]. Yuki Diaz CK.MB [Mass/Vol] 3.26 ng/mL Normal <=3.60 [facility] Comment on above: Performed By: #### CMREP ####[facility] Gqxejaxyga4997 [place] [id number]. Yuki Diaz HSTROP 27.1 pg/mL Normal 4.0-76.1 [facility] Comment on above: Result Comment: CUT-OFF POINTS HAVE BEEN ESTABLISHED BASED ON THE FOURTH UNIVERSAL DEFINITIONS OF MYOCARDIALINFARCTION. THE UPPER REFERENCE LIMIT (URL) OF TROPONIN, DEFINED THE 99TH PERCENTILE OFcTnI DISTRIBUTION IN A REFERENCE POPULATION, HAS BEEN CONFIRMED THE DECISION THRESHOLDFOR AL DIAGNOSIS. Performed By: #### C MREP ####[facility] Hynxngoqfj70[address] [place] [address]Dr. Yuki Diaz CARDIAC RACHEL ADMITon 022 CK [Catalytic activity/Vol] 101 U/L Normal 39-308 [facility] Comment on above: Performed By: #### CMADM ####[facility] Brigvdsooi7501 [place] [id number]. Yuki Diaz CK.MB [Mass/Vol] 3.35 ng/mL Normal <=3.60 [facility] Comment on above: Performed By: #### CMADM ####[facility] Cchgyjlutn8492 [place] [id number]. Yuki Diaz HSTROP 27.6 pg/mL Normal 4.0-76.1 [facility] Comment on above: Result Comment: CUT-OFF POINTS HAVE BEEN ESTABLISHED BASED ON THE FOURTH UNIVERSAL DEFINITIONS OF MYOCARDIALINFARCTION. THE UPPER REFERENCE LIMIT (URL) OF TROPONIN, DEFINED THE 99TH PERCENTILE OFcTnI DISTRIBUTION IN A REFERENCE POPULATION, HAS BEEN CONFIRMED THE DECISION THRESHOLDFOR AL DIAGNOSIS. Performed By: #### C MADM ####[facility] Nwlomarahn299[address] [place] [address]Dr. Yuki Diaz DILSHAD 153 ng/mL Critically high 16-96 [facility] Comment on above: Performed By: #### CMADM ####[facility] Udgznuvbej0698 [place] [id number]. Yuki Diaz CBC AUTO DIFFon 12-28-2021 BASO # 0.0 103/ul Normal 0.0-0.1 [facility] Comment on above: Performed By: #### CBC ####[facility] Asbetkhfxr3157 [place] [address]Dr. Yuki Diaz Basophils/100 WBC (Bld) 0.1 % Critically low 0.2-2.0 [facility] Comment on above: Performed By: #### CBC ####[facility] Bbqvhfanog2401 [place] [id number]. Yuki Diaz EO # 0.1 103/ul Normal 0.0-0.7 [facility] Comment on above: Performed By: #### CBC ####[facility] Xwdlkuwsbu8796 [place] [address]Dr. Yuki Diaz Eosinophils/100 WBC (Bld) 0.8 % Critically low 0.9-7.0 [facility] Comment on above: Performed By: #### CBC ####[facility] Jiltmpmhfh4590 [place] [address]Dr. Yuki Diaz Erythrocyte distribution width (RBC) [Ratio] 14.2 % Normal 11.0-15.0 [facility] Comment on above: Performed By: #### CBC ####[facility] Fthezdnalx4451 [place] [address]Dr. Yuki Diaz Hematocrit (Bld) [Volume fraction] 38.5 % Critically low 42.0-54.0 [facility] Comment on above: Performed By: #### CBC ####[facility] Atrrezpqsp6703 [place] [address]Dr. Yuki Diaz Hemoglobin (Bld) [Mass/Vol] 12.3 g/dL Critically low 14.0-18.0 [facility] Comment on above: Performed By: #### CBC ####[facility] Zznmkmdgvv90[address] [place], [place] [address]Dr. Yuki Diaz IG # 0.06 10e3/ul Critically high 0.00-0.03 [facility] Comment on above: Performed By: #### CBC ####[facility] Uitqbvjqwc35[address] [place], [place] [address]Dr. Yuki Diaz IG % 0.7 % Critically high 0.0-0.5 [facility] Comment on above: Performed By: #### CBC ####[facility] Zardbhjxqn6608[address] [place], [place] [address]Dr. Yuki Diaz LYMPH # 1.0 103/ul Critically low 1.2-3.8 [facility] Comment on above: Performed By: #### CBC ####[facility] Euundrjncj1804 [place] [address]Dr. Monsealyssa Diaz Lymphocytes/100 WBC (Bld) 10.7 % Critically low 20.5-60.0 [facility] Comment on above: Performed By: #### CBC ####[facility] Rasfnhmeju1869 [place] [address]Dr. Yuki Diaz MANUAL DIFF REQ NO Normal [facility] Comment on above: Performed By: #### CBC ####[facility] Cqyteantnk2847 [place] [address]Dr. Yuki Diaz MCH (RBC) [Entitic mass] 31.9 pg Normal 25.9-34.0 [facility] Comment on above: Performed By: #### CBC ####[facility] Ekskiuftty9428 [place] [address]Dr. Yuki Diaz MCHC (RBC) [Mass/Vol] 31.9 g/dL Normal 29.9-35.2 [facility] Comment on above: Performed By: #### CBC ####[facility] Wiyhcjdguo2600 [place] [address]Dr. Monsealyssa Diaz MCV (RBC) [Entitic vol] 99.7 fL Critically high 80.0-94.0 [facility] Comment on above: Performed By: #### CBC ####[facility] Keqrsxpcss[address] [place], [place] [address]Dr. Yuki Diaz MONO # 0.7 103/ul Normal 0.3-0.8 [facility] Comment on above: Performed By: #### CBC ####[facility] Hinmejfzhm5420 [place] [address]Dr. Yuki Diaz Monocytes/100 WBC (Bld) 7.2 % Normal 1.7-12.0 [facility] Comment on above: Performed By: #### CBC ####[facility] Kfjnatfazu[address] [place], [place] [address]Dr. Yuki Diaz NEUT # 7.4 103/ul Critically high 1.4-6.5 [facility] Comment on above: Performed By: #### CBC ####[facility] Iifcjgzpzg0534 [place] [address]Dr. Yuki Diaz Neutrophils/100 WBC (Bld) 80.5 % Critically high 43.0-75.0 [facility] Comment on above: Performed By: #### CBC ####[facility] Vfmljmbydv[address] [place], [place] [address]Dr. Yuki Diaz Platelet mean volume (Bld) [Entitic vol] 10.0 fL Normal 9.5-13.5 [facility] Comment on above: Performed By: #### CBC ####[facility] ital Hzppfiqhpm9074 [place], [place] [address]Lw. Yuki Diaz PLT 194 103/ul Normal 150-450 [facility] Comment on above: Performed By: #### CBC ####[facility] Dpuebmlgat9700 [place], [place] [address]Dp. Yuki Diaz RBC 3.86 106/ul Critically low 4.70-6.10 [facility] Comment on above: Performed By: #### CBC ####[facility] Uchsbarybk4362 [place], [place] [address]Wp. Yuki Diaz WBC 9.2 103/ul Normal 4.0-11.0 [facility] Comment on above: Performed By: #### CBC ####[facility] ital Goxozcntfr6614 [place], [place] [address]Nw. Yuki Diaz Covid-19 PCR (CVDTBH)on 12-06 SARS-CoV-2 (COVID-19) RNA JARVIS+probe Ql (Unsp spec) Not detected Normal NOT DETECTED [facility] Comment on above: Result Comment: When diagnostic testing is negative, the possibility of a false negative should be considered inthe context of a patient's recent exposures and the presence of clinical signs and symptomsconsistent with SARS-CoV-2.This test is not yet approved or cleared by the [place] Food and Drug Administration (FDA).This test was developed by [employer], [place], [place]. The performance characteristics ofthis test were validated by [facility]. The results are not intended to beused as the sole means for clinical diagnosis or patient management decisions. The [facility] is authorized under Clinical Laboratory Improvement Amendments (CLIA) to perform high-complexity testing.This test is not yet approved or cleared by the [place] FDA. When there are no FDA-approved or cleared tests available, and other criteria are met, FDA can make tests available under an emergency access mechanism called an Emergency Use Authorization (EUA). The EUA for this test is supported by the Costing Manager of Health and Human Service's declaration that circumstances exist to justify the emergency use of in vitro diagnostics for the detection and/or diagnosis of the virus that causes COVID-19. This EUA will remain in effect for the duration of the COVID-19 declaration justifying emergency of IVDs, unless it is terminated or revoked by the FDA (after which the test may no longer be used). Performed By: #### C VDTB ####[facility] Vuvkjnnkqp[address] [place] [address]Dr. Monselan Diaz ER URINE PROFILEon 2 Bilirubin Ql (U) Negative Normal NEGATIVE [facility] Comment on above: Performed By: #### ERUR ####[facility] pital Dhatvamupl4861 [place] [address]Dr. Monselan Diaz Clarity (U) CLEAR Normal CLEAR [facility] Comment on above: Performed By: #### ERUR ####[facility] Pkdoxixajz2062 [place] [address]Dr. Yilan Diaz Color (U) YELLOW Normal YELLOW [facility] Comment on above: Performed By: #### ERUR ####[facility] Nhvcodibyy0600 [place] [address]Dr. Monsealyssa Diaz ERUAHD A micrscopic examina tion will be performed if indicated. Normal [facility] Comment on above: Performed By: #### ERUR ####[facility] Yldjtytpsw0520 [place] [address]Dr. Yilan Diaz Glucose Ql (U) Negative Normal NEGATIVE [facility] Comment on above: Performed By: #### ERUR ####[facility] pital Brgcspmait8854 [place] [address]Dr. Yilan Diaz Hemoglobin Ql (U) Negative Normal NEGATIVE [facility] Comment on above: Performed By: #### ERUR ####[facility] pital Dmqcppiyec0187 [place] [address]Dr. Yilan Diaz Ketones Ql (U) Negative Normal NEGATIVE [facility] Comment on above: Performed By: #### ERUR ####[facility] Bemknnnepo1556 [place] [address]Dr. Yilan Diaz LEUKOCYTES Negative Normal NEGATIVE [facility] Comment on above: Performed By: #### ERUR ####[facility] Enokardhtt7641 [place] [address]Dr. Yuki Diaz Nitrite Ql (U) Negative Normal NEGATIVE [facility] Comment on above: Performed By: #### ERUR ####[facility] Rwnzjruegt9389 [place] [address]Dr. Yuki Diaz pH (U) 5.5 [pH] Normal 5-9 [facility] Comment on above: Performed By: #### ERUR ####[facility] pital Gtapauvazb8537 [place] [address]Dr. Yuki Diaz Protein (U) [Mass/Vol] 100 mg/dL Abnormal NEGATIVE/ TRACE [facility] Comment on above: Performed By: #### ERUR ####[facility] pital Qexgninsnz4243 [place] [address]Dr. Yuki Diaz SPEC GRAVITY >=1.030 Abnormal 1.005-<=1. 025 [facility] Comment on above: Performed By: #### ERUR ####[facility] pital Fpkjzswgud5763 [place] [address]Dr. Yuki Diaz UR MICRO IND NOT INDICATED Normal [facility] Comment on above: Performed By: #### ERUR ####[facility] pital Sbjbmvdwav4772 [place] [address]Dr. Yuki Diaz Urobilinogen Qn (U) 0.2 {Chidi'U}/dL Normal 0.2 - 1.0 [facility] Comment on above: Performed By: #### ERUR ####[facility] pital Wfmirtelda3067 [place] [address]Dr. Yuki Diaz LACTATE/LACTIC ACIDon 2021 Lactate [Moles/Vol] 2.2 mmol/L Critically high 0.4-1.9 [facility] Comment on above: Performed By: #### LACT ####[facility] pital Easyfzyjgg3879 [place] [address]Dr. Yuki Diaz POINT OF CARE GLUCOSEon 05-2 4-2022 Glucose [Mass/Vol] 183 mg/dL Critically high 74-106 [facility] Comment on above: Performed By: #### POCGLUC ####[facility] Rrxdrhntgq1932 [place] [address]Dr. Yuki Diaz Glucose [Mass/Vol] 167 mg/dL Critically high 74-106 [facility] Comment on above: Performed By: #### POCGLUC ####[facility] Bpfosedokp17[address] [place], [place] [address]Dr. Yuki Diaz PROF 14(COMP METB)on 022 Albumin [Mass/Vol] 2.9 g/dL Critically low 3.4-5.0 [facility] Comment on above: Performed By: #### TSH, BNP, CMP ####[facility] Ltoqiwyakc[address] [place], [place] [address]Dr. Yuki Diaz Albumin/Globulin [Mass ratio] 0.9 {ratio} Normal [facility] Comment on above: Performed By: #### TSH, BNP, CMP ####[facility] Oszxfbrnmi[address] [place], [place] [address]Dr. Yuki Diaz ALP [Catalytic activity/Vol] 83 U/L Normal 46-116 [facility] Comment on above: Performed By: #### TSH, BNP, CMP ####[facility] Rdddrmjbya917[address] [place], [place] [address]Dr. Yuki Diaz ALT [Catalytic activity/Vol] 98 U/L Critically high 16-63 [facility] Comment on above: Performed By: #### TSH, BNP, CMP ####[facility] Qofsomhiek289[address] [place], [place] [address]Dr. Yuki Diaz Anion gap [Moles/Vol] 11.6 mmol/L Normal [facility] Comment on above: Performed By: #### TSH, BNP, CMP ####[facility] Whgdgbddjr5748[address] [place], [place] [address]Dr. Yuki Diaz AST [Catalytic activity/Vol] 51 U/L Critically high 15-37 [facility] Comment on above: Performed By: #### TSH, BNP, CMP ####[facility] Vecietocuj325[address] [place], [place] [address]Dr. Yuki Diaz Bilirubin [Mass/Vol] 0.9 mg/dL Normal 0.2-1.0 [facility] Comment on above: Performed By: #### TSH, BNP, CMP ####[facility] Cixlkyghuu85[address] [place], [place] [address]Dr. Yuki Diaz Calcium [Mass/Vol] 8.3 mg/dL Critically low 8.5-10.1 [facility] Comment on above: Performed By: #### TSH, BNP, CMP ####[facility] Xhpzytkazc094[address] [place], [place] [address]Dr. Yuki Diaz Chloride [Moles/Vol] 106 mmol/L Normal 98-107 [facility] Comment on above: Performed By: #### TSH, BNP, CMP ####[facility] Jfepvqfxgi7057[address] [place], [place] [address]Dr. Yuki Diaz CO2 [Moles/Vol] 28.2 mmol/L Normal 21.0-32.0 [facility] Comment on above: Performed By: #### TSH, BNP, CMP ####[facility] Asifmwjjdz622[address] [place], [place] [address]Dr. Yuki Diaz Creatinine [Mass/Vol] 1.84 mg/dL Critically high 0.70-1.30 [facility] Comment on above: Performed By: #### TSH, BNP, CMP ####[facility] Gbynhyolsa68[address] [place], [place] [address]Dr. Yuki Diaz EGFR-AF KENYAN 43 mL/min/1.73m2 Critically low >=60 [facility] Comment on above: Performed By: #### TSH, BNP, CMP ####[facility] Ueddbazvgs40[address] [place], [place] [address]Dr. Yuki Diaz EGFR-NON AF KENYAN 36 mL/min/1.73m2 Critically low >=60 [facility] Comment on above: Performed By: #### TSH, BNP, CMP ####[facility] Xxlhtlnvuh258[address] [place], [place] [address]Dr. Yuki Diaz Globulin (S) [Mass/Vol] 3.3 g/dL Normal [facility] Comment on above: Performed By: #### TSH, BNP, CMP ####[facility] Euybexuhhm8774 [place] [address]Dr. Yuki Diaz Glucose [Mass/Vol] 202 mg/dL Critically high 74-106 [facility] Comment on above: Performed By: #### TSH, BNP, CMP ####[facility] Hibkorygsw9968 [place] [address]Dr. Yuki Diaz Potassium [Moles/Vol] 3.8 mmol/L Normal 3.5-5.1 [facility] Comment on above: Performed By: #### TSH, BNP, CMP ####[facility] Exwkpcfaty798[address] [place], [place] [address]Dr. Yuki Diaz Protein [Mass/Vol] 6.2 g/dL Critically low 6.4-8.2 [facility] Comment on above: Performed By: #### TSH, BNP, CMP ####[facility] Yeuxqnkksu1615[address] [place], [place] [address]Dr. Yuki Diaz Sodium [Moles/Vol] 142 mmol/L Normal 136-145 [facility] Comment on above: Performed By: #### TSH, BNP, CMP ####[facility] Aqpultjtqb4212[address] [place], [place] [address]Dr. Yuki Diaz Urea nitrogen [Mass/Vol] 28.0 mg/dL Critically high 7.0-18.0 [facility] Comment on above: Performed By: #### TSH, BNP, CMP ####[facility] Obzfhiyeqt4232[address] [place], [place] [address]Dr. Yuki Diaz Urea nitrogen/Creatin ine [Mass ratio] 15.2 mg/mg Normal [facility] Comment on above: Performed By: #### TSH, BNP, CMP ####[facility] Sftwmcgfew360[address] [place], [place] [address]Dr. Yuki Diaz TSHon 12-28-2021 TSH 1.808 uIU/mL Normal 0.358-3.74 0 [facility] Comment on above: Performed By: #### TSH, BNP, CMP ####[facility] Agvnucatob9[address] [place], [place] [address]Dr. Yuki Diaz TSH RANGE SEE BELOW Normal [facility] Comment on above: Result Comment: <0.34 UIU/ml HYPERTHYROI D 0.34-5.60 UIU/ml EUTHYROID >5.60 UIU/ml HYPOTHYROID Performed By: #### T SH, BNP, CMP ####[facility] Osspngnwjj9386 [place] [address]Dr. Yuki Diaz XR CHEST 1 Von 12-28-2021 XR CHEST 1 V Normal [facility] BNPon 12-22-2021 Natriuretic peptide B (Bld) [Mass/Vol] 2907.0 pg/mL Critically high <=1,800.0 [facility] Comment on above: Performed By: #### BNP ####[facility] Duvpxjuuoi2951 [place] [address]Dr. Yuki Diaz PROF 14(COMP METB)on 022 Albumin [Mass/Vol] 3.0 g/dL Critically low 3.4-5.0 [facility] Comment on above: Performed By: #### CMP ####[facility] Rlxswivwcs1492 [place] [address]Dr. Yuki Diaz Albumin/Globulin [Mass ratio] 0.9 {ratio} Normal [facility] Comment on above: Performed By: #### CMP ####[facility] Xnqlxbwosy5032 [place] [address]Dr. Yuki Diaz ALP [Catalytic activity/Vol] 94 U/L Normal 46-116 [facility] Comment on above: Performed By: #### CMP ####[facility] Bkabswhsex3042 [place] [address]Dr. Yuki Diaz ALT [Catalytic activity/Vol] 39 U/L Normal 16-63 [facility] Comment on above: Performed By: #### CMP ####[facility] Quqglcaeuq9276 [place] [address]Dr. Yuki Diaz Anion gap [Moles/Vol] 13.4 mmol/L Normal [facility] Comment on above: Performed By: #### CMP ####[facility] Wgrqaoafdp9222 [place] [address]Dr. Yuki Diaz AST [Catalytic activity/Vol] 11 U/L Critically low 15-37 [facility] Comment on above: Performed By: #### CMP ####[facility] Etiongfcea6458 [place] [address]Dr. Yuki Diaz Bilirubin [Mass/Vol] 0.5 mg/dL Normal 0.2-1.0 [facility] Comment on above: Performed By: #### CMP ####[facility] Hdfcvawhju1290 [place] [address]Dr. Yuki Joe Calcium [Mass/Vol] 8.5 mg/dL Normal 8.5-10.1 [facility] Comment on above: Performed By: #### CMP ####[facility] Oqxgzfsnhh3457 [place] [address]Dr. Yuki Diaz Chloride [Moles/Vol] 110 mmol/L Critically high 98-107 [facility] Comment on above: Performed By: #### CMP ####[facility] Myhbcgqklh2976 [place] [address]Dr. Monsealyssa Joe CO2 [Moles/Vol] 26.1 mmol/L Normal 21.0-32.0 [facility] Comment on above: Performed By: #### CMP ####[facility] Xmilzenkbe7628 [place] [address]Dr. Yuki Joe Creatinine [Mass/Vol] 1.71 mg/dL Critically high 0.70-1.30 [facility] Comment on above: Performed By: #### CMP ####[facility] Bcfqglzwsb3782 [place] [address]Dr. Monsealyssa Joe EGFR-AF KENYAN 47 mL/min/1.73m2 Critically low >=60 [facility] Comment on above: Performed By: #### CMP ####[facility] Lvowepeloc7256 [place] [address]Dr. Yuki Diaz EGFR-NON AF KENYAN 39 mL/min/1.73m2 Critically low >=60 [facility] Comment on above: Performed By: #### CMP ####[facility] Eshveazojx[address] [place], [place] [address]Dr. Yuki Diaz Globulin (S) [Mass/Vol] 3.4 g/dL Normal [facility] Comment on above: Performed By: #### CMP ####[facility] Amnqyoajji3624 [place] [address]Dr. Monsealyssa Diaz Glucose [Mass/Vol] 211 mg/dL Critically high 74-106 [facility] Comment on above: Performed By: #### CMP ####[facility] Lhshrmwwwa9742 [place] [address]Dr. Yuki Diaz Potassium [Moles/Vol] 4.5 mmol/L Normal 3.5-5.1 [facility] Comment on above: Performed By: #### CMP ####[facility] [address] [place] [address]Dr. Yuki Diaz Protein [Mass/Vol] 6.4 g/dL Normal 6.4-8.2 [facility] Comment on above: Performed By: #### CMP ####[facility] [address]hhum[address] [place] [address]Dr. Yuki Diaz Sodium [Moles/Vol] 145 mmol/L Normal 136-145 [facility] Comment on above: Performed By: #### CMP ####[facility] [address] [place] [address]Dr. Yuki Diaz Urea nitrogen [Mass/Vol] 33.0 mg/dL Critically high 7.0-18.0 [facility] Comment on above: Performed By: #### CMP ####[facility] [address] [place] [address]Dr. Yuki Diaz Urea nitrogen/Creatin ine [Mass ratio] 19.3 mg/mg Normal [facility] Comment on above: Performed By: #### CMP ####[facility] [address] [place] [address]Dr. Yuki Diaz Lab Reportson 12-15-2021 Lab Reports [id number]:127 Normal [facility] BASIC METABOLIC PANELon 08-0 Calcium mass conc 9.1 mg/dL Normal 8.6-10.3 [facility] Comment on above: Order Comment: No: Do not add to previou s draw Performed By: #### 5 0103 ####[facility] [place] [address], [place] Chloride molar conc 104 mmol/L Normal 98-107 [facility] Comment on above: Order Comment: No: Do not add to previou s draw Performed By: #### 5 0103 ####[facility] [place] [address], [place] CO2 molar conc 27 mmol/L Normal 21-31 [facility] Comment on above: Order Comment: No: Do not add to previou s draw Performed By: #### 5 0103 ####[facility] [place] [address], [place] Creatinine mass conc 1.29 mg/dL Normal 0.70-1.30 [facility] Comment on above: Order Comment: No: Do not add to previou s draw Performed By: #### 5 0103 ####[facility] [place] [address], [facility] GFR/1.73 sq M predicted among blacks MDRD vol rate/area (S/P/Bld) mL/min/{1.73_m2} Normal >60 [facility] Comment on above: Order Comment: No: Do not add to previou s draw Result Comment: Calc ulation may not be valid for patients over 70 years Performed By: #### 5 0103 ####[facility] [place] [address], [place] GFR/1.73 sq M predicted among non-blacks MDRD vol rate/area (S/P/Bld) 54 ml/min/1.73sq m Abnormal >60 [facility] Comment on above: Order Comment: No: Do not add to previou s draw Result Comment: Calc ulation may not be valid for patients over 70 years Performed By: #### 5 0103 ####[facility] [place] [address], [facility] Glucose mass conc 109 mg/dL High 70-100 [facility] Comment on above: Order Comment: No: Do not add to previou s draw Performed By: #### 5 0103 ####[facility] [place] [address], [facility] Potassium molar conc 3.6 mmol/L Normal 3.5-5.1 [facility] Comment on above: Order Comment: No: Do not add to previou s draw Performed By: #### 5 0103 ####[facility] [place] [address], [facility] Sodium molar conc 139 mmol/L Normal 136-145 [facility] Comment on above: Order Comment: No: Do not add to previou s draw Performed By: #### 5 0103 ####[facility] [place] [address], [facility] Urea nitrogen mass conc 19 mg/dL Normal 7-25 [facility] Comment on above: Order Comment: No: Do not add to previou s draw Performed By: #### 5 0103 ####[facility], [place] [id number] [place] [address] CBC COMPLETE BLOOD COUNTon 0 - Erythrocyte distribution width Auto Ratio (RBC) 13.2 % Normal 11.5-15.0 [facility] Comment on above: Order Comment: No: Do not add to previou s draw Performed By: #### 5 0103 ####[facility] [place] [address], [facility] Hematocrit Auto Volume Fraction (Bld) 42.2 % Normal 39.0-50.0 [facility] Comment on above: Order Comment: No: Do not add to previou s draw Performed By: #### 5 0103 ####[facility] [facility].[address] Hemoglobin mass conc (Bld) 13.9 g/dL Normal 13.0-17.0 [facility] Comment on above: Order Comment: No: Do not add to previou s draw Performed By: #### 5 0103 ####[facility] [facility] MCH Auto Entitic mass (RBC) 29.7 pg Normal 27.0-33.0 [facility] Comment on above: Order Comment: No: Do not add to previou s draw Performed By: #### 5 0103 ####[facility] [facility].[address] MCHC Auto mass conc (RBC) 32.9 g/dL Normal 32.0-35.0 [facility] Comment on above: Order Comment: No: Do not add to previou s draw Performed By: #### 5 0103 ####[facility] [facility].[address] MCV Auto Entitic volume (RBC) 90.2 fL Normal 82.0-98.0 [facility] Comment on above: Order Comment: No: Do not add to previou s draw Performed By: #### 5 3 ####[facility] [facility].[address] Nucleated RBC/100 WBC Ratio (Bld) 0 % Normal 0-0 [facility] Comment on above: Order Comment: No: Do not add to previou s draw Performed By: #### 5 0103 ####[facility] [facility].[address] PLAT CNT 226 10*3/uL Normal 150-400 [facility] Comment on above: Order Comment: No: Do not add to previou s draw Performed By: #### 5 0103 ####[facility] RBC Auto #/vol (Bld) 4.68 10*6/uL Normal 4.20-5.70 [facility] Comment on above: Order Comment: No: Do not add to previou s draw Performed By: #### 5 0103 ####[facility] WBC Auto #/vol (Bld) 6.80 10*3/uL Normal 4.00-10.60 [facility] Comment on above: Order Comment: No: Do not add to previou s draw Performed By: #### 5 0103 ####[facility] Cardiovascular Lab Reporton 03-10-2018 Cardiovascular Lab Report [facility] MR #: [id number] Physician: Oren Zafar M.D.Medicine Service Date: 03/09/2018Division of Birthdate: 2Cardiology Room #: 3CD [id number] Cardi[place] [address]Phone Fax Cardiovascular Laboratory ReportCARDIAC CATHETERIZATION REPORTINDICATION: Sheng Bauer is a 77-year-old man known to have coronaryartery disease, status post bypass procedure in the past. He presentedwith symptoms of unstable angina and new onset T-wave inversions in theinferolateral leads. Because of that, he was referred for cardiaccatheterization.PROCEDURES PERFORMED:1. Bilateral selective coronary angiography.2. Graft angiography.3. Successful balloon dilatation and drug-eluting stenting of 80% stenosis in the mid circumflex reduced to 0% with a Synergy 3.0 x 24 mm drug-eluting stent post dilated to 3.0 mm at high pressures.4. Administration of intracoronary nitroglycerin.5. Limited right femoral angiography.6. Deployment of a vascular access closure device.METHOD: Procedure was explained to the patient with risks and benefits.He signed informed consent. He was brought to pathology lab technician in a fasting state.The right groin area was prepped and draped in usual fashion. Usingmicropuncture technique, the right common femoral artery was accessed. Theinner cannula was advanced, limited femoral angiography was performed.Followed by upsizing to a 6-Austrian x 11 cm sheath. Bilateral selectivecoronary angiography was then performed using 6-Austrian JL4 and FI4hpgqqqaqwb catheters. The 6-Austrian JR4 diagnostic catheter was used toselectively engage the radial graft to the OM2 and saphenous venous graftto the PDA branch. Angiography was performed. Catheter was removed. A6-Austrian GEOVANNY catheter was used to selectively engage the left subclavianartery and then selectively engage the left internal mammary artery.Angiography was performed. Catheter was removed.Heparin was administered intravenously and therapeutic ACT confirmed duringthe procedure. A 6-Austrian XB 3.0 guiding catheter was advanced and used toengage the left main coronary ostium. A Gotham wire was advanced into thedistal circumflex. Balloon angioplasty in the mid circumflex was performedusing Emerge 3.0 x 15 mm balloon inflated at 10 atmospheres. Angiographyof this revealed suboptimal result. Therefore, a Synergy 3.0 x 24 mmdrug-eluting stent was deployed at 12 atmospheres and post dilated using NCQuantum [place] 3.0 x 20 mm noncompliant balloon inflated at 18 atmospheresthroughout the length of the stent. Angiography after administration ofintracoronary nitroglycerin showed excellent result with reduction of thestenosis to 0%. No evidence of dissection or perforation. The guidingcatheter was removed. The right femoral arteriotomy was managed with a6-Austrian Angio-Seal device with good hemostasis. He was loaded with 600 mgof Plavix. At the end of the procedure, he was transferred back to hisroom. He tolerated the procedure well.TOTAL FLUORO TIME: 19.28 minutes.TOTAL AIR KERMA: 2430 mGy.TOTAL CONTRAST VOLUME: 170 mL.HEMODYNAMICS: AO 152/72, mean 105.CORONARY ANGIOGRAPHY: This is a codominant circulation.Left main: This arises from left coronary cusp. It bifurcates into leftanterior descending and circumflex vessels. Left main is free of disease.Left anterior descending: This is diffusely diseased in the proximal andmid segment up to 90% in the mid segment. Distally, it is seen filling viaa patent VEGA graft. The distal LAD has moderate diffuse disease mdyfpdy88%-70% beyond the anastomosis of the VEGA graft.Circumflex vessel: This is large and codominant. It has an 80% stenosisin the mid segment. This was reduced to 0% by Synergy drug-elutingstenting. The second obtuse marginal branch has 80% proximal stenosis. Itis seen filling distally via patent radial graft to the OM2. The 3rdobtuse marginal branch has an 80% ostial stenosis.Right coronary artery: This arises from right coronary cusp. It is alarge and codominant vessel. It has diffuse 99% stenosis throughout itsproximal to mid segment. Distally, it is seen filling via a patentsaphenous venous graft.GRAFT ANGIOGRAPHY: VEGA to LAD: This graft is widely patent.Radial graft to the OM2: This graft is widely patent.Saphenous venous graft to the PDA: This graft has a 50% proximal stenosisfollowed by ectatic dilatation, but distally is free of disease.LIMITED FEMORAL ANGIOGRAPHY: This showed access to be in the right commonfemoral artery with no obstructive lesions noted in the femoral artery orits proximal branches.SUMMAR OF THE FINDINGS:1. Severe 3-vessel coronary artery disease.2. Patent 3/3 bypass grafts (VEGA to LAD, radial to OM2, and SVG to PDA).3. 50% stenosis in the SVG to PDA.4. Moderate disease in the apical LAD beyond the VEGA touchdown.5. 80% stenosis in the mid circumflex reduced to 0% by balloon angioplasty, and drug-eluting stenting with a Synergy stent.6. 80% stenosis in the 3rd obtuse marginal branch ostium.RECOMMENDATIONS:1. Aspirin and statin therapy for life.2. Plavix therapy for minimum of 1 year after unstable angina and drug-eluting stenting.3. Maximize medical therapy.4. Follow up in Cardiology Clinic after discharge.Electronically Signed by:Oren Simon M.D. 03/10/2018 09:03 A Oren Simon M.D.Date Dict: 03/09/2018/06:08 P/Oren Simon M.D.Date Trans: 03/10/2018 04:31 Tino/mmoDN_[id number]: Derrick Lopez M.D. [address] [place] [address] [place] [facility] Discharge Summaryon 03-10-20 Discharge Summary MR#: [id number] [facility] Admitted: 03/08/2018 Discharged: 03/10/2018 Date of : 1940 Physician: Zayra Ramirez MD DISCHARGE SUMMARYDISCHARGING ATTENDING: Dr. Ramirez.PRINCIPAL DIAGNOSES:1. Unstable angina.2. Coronary artery disease, status post coronary artery bypass grafting 16 years ago.3. Hypertension.4. Hyperlipidemia.5. Insulin-dependent diabetes mellitus type 2.PROCEDURES ON THIS ADMISSION: Cardiac cath.CONSULTATIONS: Cardiology.HOSPITAL COURSE: The patient is a 77-year-old male with past medicalhistory as listed above, who was sent from [facility] due to concernof possible ACS. Apparently, the patient presented to [place] complainingof dizziness and vomiting, which was his presenting complaint prior toneeding his last CABG 16 years ago. EKG at [place] showed new T-waveinversions in the inferior leads, not there on previous EKG. Firsttroponin was negative and placement interviewer here at [facility], recommended to beingthe patient to be sent to [facility] for cardiac cath. The patient was admittedto Medicine on step-down service and Cardiology was consulted. The patientpreviously had stress test within the past 2 years, which was negative andrecent echocardiogram per patient history, which was performed 6 months agoshowed improvement regarding wall motion abnormalities and ejectionfraction. The patient was taken to pathology lab technician following day after admission,revealing patent 3/3 bypass grafts and 80% stenosis in mid circumflex,which was reduced to 0% by balloon angioplasty and drug-eluting Synergystent placed. Next morning, had tolerated procedure well and wasrequesting to leave. Discharge recommendations were to continue babyaspirin once daily, statin for life, and to continue Plavix for at least 1year due to placement of stent. The patient was discharged without chestpain or shortness of breath and instructed to follow up with his PCP.Discussion was held with Cardiology and patient regarding need forhigh-intensity statin, apparently the patient has 1 low Sutent againstLipitor in the past. Decision was made to discharge patient on 20 mg ofpravastatin, which he has been taking and to discuss high-intensity statinwith his placement interviewer, which he will be follow up with us within the nextweek or 2. The patient instructed to find out what his reaction to Lipitorhad been in the past prior to appointment.DISCHARGE DISPOSITION: Good, home.DISCHARGE INSTRUCTIONS: Heart healthy diabetic diet. Activity astolerated. The patient was instructed to follow up with Cardiology withinthe next 2 weeks and his PCP within the next 2 weeks. The patient was alsoset up with cardiac rehab.DISCHARGE MEDICATIONS: The patient was instructed to continue thefollowing medications.1. Aspirin low dose oral 81 mg 1 tablet by mouth daily.2. Carvedilol oral 25 mg 1 tablet by mouth every 12 hours.3. Glimepiride oral 4 mg 1 tablet by mouth 2 times per day.4. Lantus 20 units subcutaneously 2 times per day.5. Lisinopril oral 20 mg 1 tablet by mouth daily.6. Metformin oral 1000 mg 1 tablet by mouth 2 times per day.7. Norvasc 10 mg 1 tablet by mouth daily.8. Plavix 75 mg by mouth daily.9. Pravastatin 20 mg 1 tablet by mouth q.h.s.10. Tamsulosin 0.4 mg 1 tablet by mouth q.h.s.TOTAL DISCHARGE TIME: Total discharge time is 42 minutes.Electronically Signed by:Zayra Ramirez MD 03/13/2018 11:23 P ____Zayra Ramirez MD I personally saw this patient on the day of the encounter, performed thekey portion(s) of the service and participated in the management andconfirm the resident's documentation. Please note there may be anadditional personal documentation from me. Date Dict: 03/10/2018/12:04 P/TAYLOR Lua-CDate Trans: 03/10/2018 07:17 P/mmoDN_JN:[id number]: Derrick Lopez M.D. [address] [place] [address] Normal [facility] POC GLUCOSE LABon 03-10-2018 Glucose mass conc 256 mg/dL High 70-100 [facility] Comment on above: Performed By: #### 00406, 30798, 85531, 57394, 62841 ####[facility] [place] [address], [place] Glucose mass conc 160 mg/dL High 70-100 [facility] Comment on above: Performed By: #### 97372, 44897, 35549, 98050, 96817 ####[facility] [place] [address], [place] BASIC METABOLIC PANELon Calcium mass conc 9.1 mg/dL Normal 8.6-10.3 [facility] Comment on above: Order Comment: No: Do not add to previou s draw Performed By: #### 5 0103 ####[facility] [place] [address], [place] Chloride molar conc 103 mmol/L Normal 98-107 [facility] Comment on above: Order Comment: No: Do not add to previou s draw Performed By: #### 5 0103 ####[facility] [place] [address], [place] CO2 molar conc 28 mmol/L Normal 21-31 [facility] Comment on above: Order Comment: No: Do not add to previou s draw Performed By: #### 5 0103 ####[facility] [place] [address], [place] Creatinine mass conc 1.20 mg/dL Normal 0.70-1.30 [facility] Comment on above: Order Comment: No: Do not add to previou s draw Performed By: #### 5 0103 ####[facility] [place] [address], [place] GFR/1.73 sq M predicted among blacks MDRD vol rate/area (S/P/Bld) mL/min/{1.73_m2} Normal >60 [facility] Comment on above: Order Comment: No: Do not add to previou s draw Result Comment: Calc ulation may not be valid for patients over 70 years Performed By: #### 5 0103 ####[facility] [place] [address], [place] GFR/1.73 sq M predicted among non-blacks MDRD vol rate/area (S/P/Bld) 59 ml/min/1.73sq m Abnormal >60 [facility] Comment on above: Order Comment: No: Do not add to previou s draw Result Comment: Calc ulation may not be valid for patients over 70 years Performed By: #### 5 0103 ####[facility] [place] [address], [place] Glucose mass conc 96 mg/dL Normal 70-100 [facility] Comment on above: Order Comment: No: Do not add to previou s draw Performed By: #### 5 0103 ####[facility] [place] [address], [place] Potassium molar conc 3.7 mmol/L Normal 3.5-5.1 [facility] Comment on above: Order Comment: No: Do not add to previou s draw Performed By: #### 5 0103 ####[facility] [place] [address], [place] Sodium molar conc 140 mmol/L Normal 136-145 [facility] Comment on above: Order Comment: No: Do not add to previou s draw Performed By: #### 5 0103 ####[facility] [place] [address], [place] Urea nitrogen mass conc 19 mg/dL Normal 7-25 [facility] Comment on above: Order Comment: No: Do not add to previou s draw Performed By: #### 5 0103 ####[facility] [place] [address], [facility] POC GLUCOSE LABon 03-09-2018 Glucose mass conc 155 mg/dL High 70-100 [facility] Comment on above: Performed By: #### [id number] ####[facility] [place] [address], [facility] Glucose mass conc 91 mg/dL Normal 70-100 [facility] Comment on above: Performed By: #### 01028 ####[facility] [place] [address], [facility] Glucose mass conc 107 mg/dL High 70-100 [facility] Comment on above: Performed By: #### [id number] ####[facility] [place] [address], [facility] Glucose mass conc 115 mg/dL High 70-100 [facility] Comment on above: Performed By: #### 65440 ####[facility] [place] [address], [facility] UFH HEPARIN ASSAYon 03-09-20 18 UNFRACTIONATED HEPARIN 0.42 IU/mL Normal 0.30-0.70 [facility] Comment on above: Result Comment: Rivaroxaban and Apixaban will interfere with the anti Xa assay used tomonitor UFH and LMWH. Performed By: #### 5 0103 ####[facility] [place] [address], [facility] UNFRACTIONATED HEPARIN 0.27 IU/mL Low 0.30-0.70 [facility] Comment on above: Result Comment: Rivaroxaban and Apixaban will interfere with the anti Xa assay used tomonitor UFH and LMWH. Performed By: #### 5 0103 ####[facility] [id number] APTTon 03-08-2018 aPTT Coag time (Bld) 68.3 s High 25.0-35.0 [facility] Comment on above: Order Comment: No: Do not add to previou s draw Result Comment: ALL RESULTS MUST BE INTERPRETED WITH RESPECT TO BLOOD DRAWING ARTIFACTOR DILUTION ERROR OF ANTICOAGULANT AT THE TIME OF SAMPLING.THE APTT SHOULD NOT BE USED TO MONITOR UNFRACTIONATED HEPARIN THERAPY, THIS LABORATORY NO LONGER HAS AN ESTABLISHED THERAPEUTIC RANGE BASEDON THE APTT. IT IS RECOMMENDED THAT THE UFH - HEPARIN ASSAY (ANTI-XAACTIVITY) BE USED FOR THIS PURPOSE.UNREPORTED UFH <0.1 Performed By: #### 5 7307, 76141 ####[facility] BASIC METABOLIC PANELon Calcium mass conc 9.4 mg/dL Normal 8.6-10.3 [facility] Comment on above: Order Comment: No: Do not add to previou s draw Performed By: #### 9 9909, 09297, 88434, 16170, 76325 ####[facility] [facility] [address], [facility] Chloride molar conc 105 mmol/L Normal 98-107 [facility] Comment on above: Order Comment: No: Do not add to previou s draw Performed By: #### 9 9909, 97677, 14726, 90977, 89271 ####[facility] [place] [address], [facility] CO2 molar conc 28 mmol/L Normal 21-31 [facility] Comment on above: Order Comment: No: Do not add to previou s draw Performed By: #### 9 9909, 32415, 67655, 22749, 00643 ####[facility] [place] [address], [facility] Creatinine mass conc 1.13 mg/dL Normal 0.70-1.30 [facility] Comment on above: Order Comment: No: Do not add to previou s draw Performed By: #### 9 9909, 12572, 98350, 13670, 86061 ####[facility] [facility] [place] [address], [facility] GFR/1.73 sq M predicted among blacks MDRD vol rate/area (S/P/Bld) mL/min/{1.73_m2} Normal >60 [facility] Comment on above: Order Comment: No: Do not add to previou s draw Result Comment: Calc ulation may not be valid for patients over 70 years Performed By: #### 9 9909, 70579, 15903, 88720, 08434 ####[facility] [facility] [place] [address], [facility] GFR/1.73 sq M predicted among non-blacks MDRD vol rate/area (S/P/Bld) mL/min/{1.73_m2} Normal >60 [facility] Comment on above: Order Comment: No: Do not add to previou s draw Result Comment: Calc ulation may not be valid for patients over 70 years Performed By: #### 9 9909, 13353, 62725, 70846, 47385 ####[facility] [facility] [place] [address], [facility] Glucose mass conc 108 mg/dL High 70-100 [facility] Comment on above: Order Comment: No: Do not add to previou s draw Performed By: #### 9 9909, 78356, 92672, 21102, 39234 ####[facility] [facility] [place] [address], [facility] Potassium molar conc 3.7 mmol/L Normal 3.5-5.1 [facility] Comment on above: Order Comment: No: Do not add to previou s draw Performed By: #### 9 9909, 41261, 06837, 40546, 99610 ####[facility] Sodium molar conc 141 mmol/L Normal 136-145 [facility] Comment on above: Order Comment: No: Do not add to previou s draw Performed By: #### 9 9909, 09457, 22540, 96308, 95358 ####[facility] Urea nitrogen mass conc 21 mg/dL Normal 7-25 [facility] Comment on above: Order Comment: No: Do not add to previou s draw Performed By: #### 9 9909, 17729, 60498, 86173, 58531 ####[facility] CBC W/DIFFon 03-08-2018 ABS BASOPHILS 0.0 10*3/uL Normal 0.0-0.2 [facility] Comment on above: Performed By: #### 05938 ####[facility] ABS IMM GRANS 0.0 10*3/uL Normal 0.0-0.2 [facility] Comment on above: Performed By: #### [address]6319 ####[place] [address] [address] ABS NEUTROPHILS 4.4 10*3/uL Normal 1.6-7.6 [facility] Comment on above: Performed By: #### 77213 ####[facility] Basophils Auto #/vol (Bld) 0.6 % Normal 0.0-1.0 [facility] Comment on above: Performed By: #### 88168 ####[place] [address] [address] Eosinophils Auto #/vol (Bld) 0.3 10*3/uL Normal 0.0-0.5 [facility] Comment on above: Performed By: #### 31408 ####[facility] Eosinophils/100 WBC Auto (Bld) 4.0 % Normal 0.0-6.0 [facility] Comment on above: Performed By: #### 23111 ####[facility] Erythrocyte distribution width Auto Ratio (RBC) 13.3 % Normal 11.5-15.0 [facility] Comment on above: Performed By: #### 88051 ####[address] Hematocrit Auto Volume Fraction (Bld) 41.7 % Normal 39.0-50.0 [facility] Comment on above: Performed By: #### 72885 ####[place] [address] [address] Hemoglobin mass conc (Bld) 13.7 g/dL Normal 13.0-17.0 [facility] Comment on above: Performed By: #### 05379 ####[address] IMMATURE GRANS 0.3 % Normal 0.0-1.0 [facility] Comment on above: Performed By: #### 49314 ####[place] [address] Lymphocytes Auto #/vol (Bld) 1.7 10*3/uL Normal 1.2-4.0 [facility] Comment on above: Performed By: #### 27131 ####[place] [address] Lymphocytes/100 WBC Auto (Bld) 24.0 % Normal 20.0-45.0 [facility] Comment on above: Performed By: #### 77045 ####[facility] MCH Auto Entitic mass (RBC) 29.7 pg Normal 27.0-33.0 [facility] Comment on above: Performed By: #### 07387 ####[facility] MCHC Auto mass conc (RBC) 32.9 g/dL Normal 32.0-35.0 [facility] Comment on above: Performed By: #### 66507 ####[place] [address] MCV Auto Entitic volume (RBC) 90.3 fL Normal 82.0-98.0 [facility] Comment on above: Performed By: #### 79550 ####[facility] Monocytes Auto #/vol (Bld) 0.6 10*3/uL Normal 0.1-1.0 [facility] Comment on above: Performed By: #### 12979 ####[address] MONOS 7.9 % Normal 5.0-12.0 [facility] Comment on above: Performed By: #### 41901 ####[place] [address] [address] Neutrophils/100 WBC Auto (Bld) 63.2 % Normal 40.0-72.0 [facility] Comment on above: Performed By: #### 22899 ####[place] [address] Nucleated RBC/100 WBC Ratio (Bld) 0 % Normal 0-0 [facility] Comment on above: Performed By: #### 63562 ####[facility] PLAT CNT 209 10*3/uL Normal 150-400 [facility] Comment on above: Performed By: #### 30611 ####[facility] [facility].[address] RBC Auto #/vol (Bld) 4.62 10*6/uL Normal 4.20-5.70 [facility] Comment on above: Performed By: #### 80416 ####[facility] [facility] [address], [facility] WBC Auto #/vol (Bld) 6.93 10*3/uL Normal 4.00-10.60 [facility] Comment on above: Performed By: #### 78752 ####[place] [address] History and Physicalon 03-08 [facility] and Physical [id number] Admitted: 03/08/2018 Date of : 1940 Attending Physician: Shiva Seay MD Room #: 3CD [id number] Discharge Date: HISTORY AND PHYSICALCHIEF COMPLAINT: Dizziness and vomiting.HISTORY OF PRESENT ILLNESS: This patient is 77-year-old male with pastmedical history of coronary artery disease, status post CABG 16 years ago,hypertension, hyperlipidemia, and diabetes, who was sent from [facility] because of possibility of ACS. The patient presented to [facility] complaining of dizziness and vomiting while he was working on [email or web address]. The patient stated that he had similar symptoms when he had hisheart attack 16 years ago that ended up having CABG. In the [facility], his EKG showed new T inversions in inferior leads, which theywere not there previously. The 1st troponin was negative. The ER doctorcalled his placement interviewer, Dr. Simon, [facility]. The patient stated that he never haschest pains. The patient stated that he was functionally active with nocomplaints. The patient thinks that he had a stress test 2 years ago,which was negative. The patient had recent echocardiogram 6 months ago andhe was told that his heart function is improving. The patient denied chestpain, shortness of breath, syncope, blurred vision, abdominal pain, changesin bowel movement, palpitations.REVIEW OF SYSTEMS: Fourteen review of systems was reviewed and negativeexcept as mentioned in the HPI.PAST MEDICAL HISTORY: Chronic kidney disease, hypertension,hyperlipidemia, and diabetes.PAST SURGICAL HISTORY: CABG 16 years ago and TURP for prostate.SOCIAL HISTORY: Ex-smoker, quit in 1988. He smoked since he was 20.Denies heavy alcohol and illicit drug use.FAMILY HISTORY: Negative for coronary artery disease, but positive fordiabetes.ALLERGIES: NKDA.PHYSICAL EXAMINATION: VITAL SIGNS: Temperature 98, heart rate 76, bloodpressure 155/92, saturation 96 on room air.GENERAL: Alert and oriented, not in acute distress.HEENT: Atraumatic. Normal oral mucosa. PERRLA. EOMI.NECK: Supple, nontender.CARDIOVASCULAR: Normal rate, regular rhythm. No murmur.RESPIRATORY: Lungs are clear to auscultation bilaterally.GI: Soft, nondistended, and nontender.MUSCULOSKELETAL: Normal strength. No weakness. No tenderness.EXTREMITIES: No edema.NEUROLOGICAL: Cranial nerves II to XII are intact. No neuro deficit isnoted.SKIN: Warm to touch. No rashes.ASSESSMENT:1. Unstable angina to rule out ACS. EKG showed new T inversions in inferior leads. First troponin is negative.2. Coronary artery disease, status post CABG 16 years ago.3. Hypertension.4. Insulin-dependent diabetes.5. Hyperlipidemia.PLAN: We will do serial EKG and troponin. We will start patient on IVheparin. Keep the patient n.p.o. after midnight for cardiac cath tomorrow.We will resume his antihypertensive agents including cardiac medications.We will resume statin.Electronically Signed by:Shiva Seay MD 03/09/2018 11:33 A _Shiva Seay, MDDate Dict: 03/08/2018/05:06 P/Shiva MaganDidierAyanna, MDDate Trans: 03/08/2018 05:31 P/[id number] Normal [facility] LIVER BATTERYon 03-08-2018 Albumin mass conc 4.0 g/dL Normal 3.5-5.7 [facility] Comment on above: Order Comment: No: Do not add to previou s draw Performed By: #### 9 9909, 89897, 38704, 50094, 12604 ####[facility] [place] [address], [facility] ALKALINE PHOSPH 53 IU/L Normal 34-104 [facility] Comment on above: Order Comment: No: Do not add to previou s draw Performed By: #### 9 9909, 50399, 87096, 10218, 12272 ####[facility] [place] [address], [facility] ALT enzyme act/vol 21 U/L Normal 7-52 [facility] Comment on above: Order Comment: No: Do not add to previou s draw Performed By: #### 9 9909, 36480, 58613, 34080, 39795 ####[facility] [place] [address], [place] AST enzyme act/vol 19 U/L Normal 13-39 [facility] Comment on above: Order Comment: No: Do not add to previou s draw Performed By: #### 9 9909, 09217, 04204, 17075, 82267 ####[facility] [place] [address], [place] Bilirubin mass conc 0.8 mg/dL Normal 0.3-1.0 [facility] Comment on above: Order Comment: No: Do not add to previou s draw Performed By: #### 9 9909, 99850, 51046, 18218, 28748 ####[facility] [place] [address], [facility] Bilirubin.direct mass conc 0.2 mg/dL Normal 0.0-0.2 [facility] Comment on above: Order Comment: No: Do not add to previou s draw Performed By: #### 9 9909, 85710, 40612, 54856, 62039 ####[facility] [place] [address], [facility] Protein mass conc 7.1 g/dL Normal 6.0-8.3 [facility] Comment on above: Order Comment: No: Do not add to previou s draw Performed By: #### 9 9909, 81590, 42692, 61628, 37731 ####[facility] [place] [address], [facility] MAGNESIUM BLOODon 03-08-2018 Magnesium mass conc 2.0 mg/dL Normal 1.9-2.7 [facility] Comment on above: Order Comment: No: Do not add to previou s draw Performed By: #### 9 9909, 32218, 99789, 85733, 83769 ####[facility] [place] [address], [facility] PHOSPHORUS BLOODon 8 Phosphate mass conc 3.2 mg/dL Normal 2.5-5.0 [facility] Comment on above: Order Comment: No: Do not add to previou s draw Performed By: #### 9 9909, 99656, 68033, 22159, 42709 ####[facility] [place] [address], [facility] POC GLUCOSE LABon 03-08-2018 Glucose mass conc 164 mg/dL High 70-100 [facility] Comment on above: Performed By: #### 86437 ####[facility] [place] [address], [facility] Glucose mass conc 114 mg/dL High 70-100 [facility] Comment on above: Performed By: #### 27244 ####[facility] [facility].[address] PROTHROMBIN TIMEon 8 INR Coag RelTime (PPP) 1.11 {INR} Normal 0.91-1.16 [facility] Comment on above: Order Comment: No: Do not add to previou s draw Result Comment: ACCC P RECOMMENDED INR FOR WARFARIN THERAPY CONDITION INRPROPHYLAXIS OF VENOUS THROMBOSIS 2-3(HIGH-RISK SURGERY)TREATMENT OF VENOUS THROMBOSIS 2-3TREATMENT OF PULMONARY EMBOLISM 2-3PREVENTION OF SYSTEMIC EMBOLISM: 2-3 ACUTE MYOCARDIAL INFARCTION TISSUE HEART VALVES VALVULAR HEART DISEASE ATRIAL FIBRILLATION RECURRENT SYSTEMIC EMBOLISMMECHANICAL HEART VALVE 2.5-3.5 FROM: ORAL ANTICOAGULANTS. MECHANISM OF ACTION, CLINICALEFFECTIVENESS, AND OPTIMAL THERAPEUTIC RANGE. [id number]. Performed By: #### 5 7307, 08520 ####[facility] Prothrombin time (PT) Coag time (PPP) 14.3 s Normal 12.3-14.8 [facility] Comment on above: Order Comment: No: Do not add to previou s draw Result Comment: ALL RESULTS MUST BE INTERPRETED WITH RESPECT TO BLOOD DRAWING ARTIFACTOR DILUTION ERROR OF ANTICOAGULANT AT THE TIME OF SAMPLING. Performed By: #### 5 7307, 22809 ####[facility] TROPONIN-Ion 03-08-2018 Troponin I.cardiac mass conc 0.01 ng/mL Normal 0.00-0.04 [facility] Comment on above: Order Comment: No: Do not add to previou s draw Result Comment: BARI VERA RANGES: 0.00 - 0.04 ng/ml NORMAL 0.05 - 0.50 ng/ml INDETERMINATE > 0.50 ng/ml CONSISTENT WITH AN M.I. Performed By: #### 9 9909, 47839, 82177, 62102, 58026 ####[facility] Vital Signs Date Time Vital Sign Value Performing Clinician Kristie kerr 02-15-2022 10:03-0400 Blood Pressure Location César Gordon Jr. [facility] 02-15-2022 10:03-0400 Diastolic blood pressure 66 mm[Hg] César Gordon Jr. [facility] 02-15-2022 10:03-0400 Heart rate 80 /min César Gordon Jr. [facility] 02-15-2022 10:03-0400 Respiratory rate 16 /min César Gordon Jr. [facility] 02-15-2022 10:03-0400 Systolic blood pressure 88 mm[Hg] César Gordon Jr. [facility] Encounters Encounter Date Encounter Type Care Provider Facility Start: 07-14-2023 End: 07-14-2023 ambulatory OREN SIMON [facility] Start: 03-13-2023 End: 03-13-2023 ambulatory LEATHA MARROQUIN [facility] Start: 12-15-2022 End: 12-15-2022 ambulatory HUANG YOUNGBOLOD . Facility:[facility] Start: 11-23-2022 End: 11-24-[address] DERRICK LOPEZ . Facility:[facility] Start: 10-25-2022 End: 10-27-2022 Evaluation and management of inpatient DR DERRICK LOPEZ . Facility:[facility] Start: 10-22-2022 End: 10-22-2022 ambulatory LEVAR ROSALES . Facility:[facility] Start: 10-13-2022 End: 10-14-[address] DERRICK LOPEZ . Facility: Start: 09-20-2022 End: 09-21-2022 ambulatory TASHA OROZCO Facility:[facility] Start: 09-20-2022 End: 09-20-2022 Patient encounter procedure TASHA OROZCO [facility] Start: 09-19-2022 End: 09-20-[address] DERRICK LOPEZ . Facility: Start: 09-12-2022 End: 09-12-2022 ambulatory [facility] Start: 09-02-2022 End: 09-03-[address] DERRICK LOPEZ . Facility:[facility] Start: 07-20-2022 End: 07-21-[address] OREN SIMON Facility:[facility] Start: 07-14-[address] DERRICK LOPEZ . Facili ty: Start: 06-14-2022 End: 07-06-[address] DERRICK LOPEZ . Facility: Start: 05-16-2022 End: 05-17-[address] DERRICK LOPEZ . Facility:[facility] Start: 04-13-2022 End: 05-07-[address] DERRICK LOPEZ . Facility:[facility] Start: 04-01-2022 End: 04-01-[address] DERRICK LOPEZ . Facility: Start: 03-08-2022 End: 04-06-[address] DERRICK LOPEZ . Facility: Start: 02-15-2022 End: 02-16-2022 ambulatory César Gordon Facility:[facility] Start: 02-15-2022 End: 02-15-2022 Patient encounter procedure César Vega Evan Ochoa [facility] Start: 02-09-[address] DERRICK LOPEZ . Facili ty:[facility] Start: 02-08-2022 End: 03-04-[address] DERRICK LOPEZ . Facility:[facility] Start: 02-03-2022 End: 02-04-[address] DERRICK LOPEZ . Facility:[facility] Start: 01-25-2022 End: 01-27-2022 Evaluation and management of inpatient DR DERRIKC LOPEZ . Facility:[facility] Start: 01-12-2022 End: 01-13-[address] DERRICK LOPEZ . Facility:[facility] Start: 12-28-2021 End: 12-30-[address] DERRICK LOPEZ . Facility:[facility] Start: 12-22-2021 End: 12-23-[address] DERRICK LOPEZ . Facility: Start: 03-08-2018 End: 03-10-2018 Evaluation and management of inpatient ZAYRA RAMIREZ Facility:[facility] Procedures Date Procedure Procedure Detail Performing Clinician Start: 11-23-[address] BRIANNE LOPEZ . Comment on above: Performed By: #### V ITAD, PSASC ####[facility] [address] [place], [place] [address]ZdBebo Diaz Start: 10-25-2022 Transfusion of Nonau tologous Red Blood Cells into Peripheral Vein, Percutaneous Approach DR DERRICK LOPEZ . Start: 06-14-[address] BRIANNE LOPEZ . Comment on above: Performed By: #### P SAD ####[facility] [address] [place], [place] [id number]. Yuki Diaz Start: 03-09-2018 DILATION OF 1 COR AR T WITH DRUG-ELUT INTRA, PERC APPROACH OREN JORBFERCHO Start: 03-09-2018 FLUOROSCOPY OF L INT MAMM GRAFT USING OTH CONTRAST OREN JORBFERCHO Start: 03-09-2018 FLUOROSCOPY OF MULT COR A GRAFT USING OTH CONTRAST OREN JORBFERCHO Start: 03-09-2018 FLUOROSCOPY OF MULTI PLE CORONARY ARTERIES USING OTH CONTRAST OREN Burnett ALFRED Start: 03-30-2016 Cystourethroscopy [facility] dilation of urethral stricture César Gordon Jr. Comment on above: fulguration of the b ladder and prostate Start: 02-12-2016 Cystoscopy César paz Jr. Start: 09-08-2013 Transurethral prostatectomy César Gordon Jr. Open heart surgery César torres Jr. Placement of stent i n cardiac conduit César Gordon Jr. Immunizations Immunization Date Immunization Notes Care Provider [facility] 06-07-2021 SARS-CoV-2 (COVID-19 ) mRNA BNT-162b2 vax César Gordon Jr. [facility] 05-13-2021 SARS-CoV-2 (COVID-19 ) mRNA BNT-162b2 vax TASHA OROZCO [facility] 05-10-2021 influenza virus vaccine, unspecified formulation TASHA OROZCO [facility] 12-05-2020 SARS-CoV-2 (COVID-19 ) mRNA BNT-162b2 semajx César Gordon Jr. [facility] 11-05-2020 SARS-CoV-2 (COVID-19 ) mRNA BNT-162b2 hiram Gordon Jr. [facility] 10-02-2020 SARS-CoV-2 (COVID-19 ) mRNA BNT-162b2 vax TASHA OROZCO [facility] 09-04-2020 SARS-CoV-2 (COVID-19 ) mRNA BNT-162b2 vax TASHA OROZCO [facility] 05-06-2020 influenza virus vaccine, unspecified formulation TASHA OROZCO [facility] 05-30-2017 influenza, unspecifi ed formulation TASHA OROZCO [facility] 05-30-2017 pneumococcal conjuga te vaccine, 13 valent TASHAARIES OROZCO [facility] 05-06-2016 influenza virus vaccine, unspecified formulation TASHA OROZCO [facility] Payers Date Payer Category Payer Private Health Insurance [id number] 1957 Self-pay 1940 Unknown [id number] 2.16.8 [id number] 1940 Unknown [id number] 2.16.8 40.1.894291.3.579.2.727 1940 Unknown [id number] 2.16.84 0.1.601736.3.579.2.593 1940 Unknown [id number] 2.16.84 0.1.810930.3.579.2.593 1940 Unknown [id number] 2.16.84 0.1.185566.3.579.2.593 1940 Unknown [id number] 2.16.84 0.1.805961.3.579.2.593 1940 Unknown [id number] 2.16.84 0.1.028650.3.579.2.593 1942 Unknown [id number] 2.16.84 0.1.118900.3.579.2.593 1942 Unknown [id number] 2.16.84 0.1.187011.3.579.2.593 1942 Unknown [id number] 2.16.84 0.1.708966.3.579.2.593 1940 Unknown [id number] 2.16.84 0.1.228245.3.579.2.593 1942 Unknown [id number] 2.16.84 0.1.498182.3.579.2.593 1942 Unknown [id number] 2.16.84 0.1.883867.3.579.2.593 1942 Unknown [id number] 2.16.84 0.1.791927.3.579.2.593 1942 Unknown [id number] 2.16.84 0.1.204002.3.579.2.593 1942 Unknown [id number] 2.16.84 0.1.886046.3.579.2.593 1942 Unknown [id number] 2.16.84 0.1.772898.3.579.2.593 1942 Unknown [id number] 2.16.84 0.1.004775.3.579.2.593 1942 Unknown [id number] 2.16.84 0.1.852861.3.579.2.593 1942 Unknown [id number] 2.16.84 0.1.581789.3.579.2.593 1942 Unknown [id number] 2.16.84 0.1.295787.3.579.2.593 1942 Unknown [id number] 2.16.84 0.1.922039.3.579.2.593 1942 Unknown [id number] 2.16.84 0.1.691579.3.579.2.593 1942 Unknown [id number] 2.16.84 0.1.453348.3.579.2.593 1942 Unknown [id number] 2.16.84 0.1.596481.3.579.2.593 1940 Unknown [id number] 2.16.84 0.1.606972.3.579.2.593 [facility] [id number] Social History Date Type Detail Facility Start: 02-15-2022 Tobacco smoking status Ex-smoker (fi nding) [facility] Sex Assigned At Male [facility] Functional Status Date Assessment Result Facility 02-15-2022 Functional Status N/A [facility] Clinical Notes 02-15-2022 to 07-14-2023 Note Date & Type Note Facility 07-14-2023 Note [facility] Subjective Sheng Bauer is a 83 y.o. year old male patient being seen for 3 mo follow up chronic systolic heart failure, CAD, and hypertension. He was admitted to [facility] in Apr 2023. Doing very well since then, as he denies chest pain, SOB, LE edema, and palpitations. Patient Active Problem List Diagnosis Coronary arteriosclerosis Hypertensive disorder Hx of CABG Chronic systolic heart failure (CMS/HCC) Hx of deep venous thrombosis Diabetes mellitus type 2, uncontrolled, without complications Ischemic cardiomyopathy CKD (chronic kidney disease), stage IV (CMS/HCC) Acute on chronic combined systolic (congestive) and diastolic (congestive) heart failure (CMS/HCC) Altered mental status, unspecified Benign prostatic hyperplasia with lower urinary tract symptoms Cognitive communication deficit Difficulty in walking, not elsewhere classified Disorder of kidney and ureter, unspecified End stage renal disease (CMS/HCC) History of falling Benign hypertensive cardiomyopathy with heart failure (CMS/HCC) Mixed hyperlipidemia Hypotension due to drugs Hypothyroidism, unspecified Insomnia, unspecified Iron deficiency anemia, unspecified Major depressive disorder, recurrent, unspecified (CMS/HCC) Limitation of activities due to disability Morbid (severe) obesity due to excess calories (CMS/HCC) Muscle weakness (generalized) Nicotine dependence, unspecified, uncomplicated Old myocardial infarction Polyneuropathy, unspecified Personal history of urinary (tract) infections Pain in right knee Pain in left knee Paroxysmal atrial fibrillation (CMS/HCC) Unspecified osteoarthritis, unspecified site Family History Problem Relation Name Age of Onset Coronary artery disease Mother Social History Tobacco Use Smoking status: Former Types: Cigarettes Quit date: 08/07/1988 Years since quittin.9 Smokeless tobacco: Never Substance Use Topics Alcohol use: Not Currently Drug use: Never HPI Sheng is seen in follow up. He is a 83 yo man with history of CAD s/p CABG (VEGA to LAD, SVG to PDA, left radial to OM) in 2001. He has history of AL in 2001. He has hypertension on treatment. He has CKD. In 2017 he was admitted to [facility] transferred [facility] with symptoms of unstable angina and new onset T-wave inversions in the inferolateral leads. Cardiac cath was done and he underwent stenting of the circumflex with Synergy TONYA on 03/09/2018. He did get admitted in December 2019 to [facility] after a tree fell on him, with fever, tachycardia and dyspnea and CTA chest ruled out PE. His echo in that setting showed reduced EF at 35-40%. His stress test in March 2020 showed a ejection fraction of 43% with no ischemia. In November 2021 he developed lower extremity DVT and was placed on Eliquis. This was in the setting of illness. He was found to have drop in ejection fraction with echo in November 2021 showing an ejection fraction of 20 to 25%. I have managed this medically. In December 2021 he was admitted to the hospital with lower extremity swelling and underwent intravenous diuresis. His echocardiogram at that time showed improvement in ejection fraction to 50-55%. In January 2022 he had volume overload and was diuresed with bumex and spironolactone. He then was maintained on bumex only. At last visit of 07/08/2022 and due to hypotension I reduced doxazosin to 4 mg twice daily. He is currently taking it once daily. I also reduced Entresto 49-51 mg to 1 tablet twice daily. Follow-up blood testing in August 2022 showed renal function at baseline. Echocardiogram in July 2022 showed ejection fraction preserved at 50 to 55% with mild pulmonic regurgitation. Today he reports that he has been doing well. He denies chest pain. He has no lower extremity edema. He says he has no shortness of breath on exertion. NYHA class I-II. He tries to exercise. He uses a cane to assist with ambulation. Review of Systems HENT: Positive for tinnitus. Hematologic/Lymphatic: Bruises/bleeds easily. Skin: Positive for color change. Musculoskeletal: Positive for arthritis and back pain. Neurological: Positive for light-headedness. All other systems reviewed and are negative. Objective Visit Vitals BP 128/88 (BP Location: Right arm, Patient Position: Sitting) Pulse 79 Ht 1.727 m (5' 8 ) Wt 85.3 kg (188 lb) SpO2 98% BMI 28.59 kg/m??? Smoking Status Former BSA 2.02 m??? Physical Exam Constitutional: Appearance: He is well-developed. He is obese. He is not ill-appearing. HENT: Head: Normocephalic and atraumatic. Nose: Nose normal. Eyes: General: No scleral icterus. Pupils: Pupils are equal, round, and reactive to light. Neck: Thyroid: No thyromegaly. Vascular: No JVD. Cardiovascular: Rate and Rhythm: Normal rate and regular rhythm. Pulses: Radial pulses are 2+ on the right side and 2+ on the left side. Heart (more content not included)... [facility] 03-13-2023 Note Eliquis was decrease d to 2.5 mg bid per PCP in light of CKD, bruising of extremities and noted fall earlier this year. 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 [facility] 03-13-2023 Note [facility] II-III, current ly euvolemic without exacerbation, weight is currently down from last visit and overall pt is doing well Continue GDMT- ASA, lipitor, coreg, entrestot and aldatone Diuretic therapy- bumex 2 mg daily Monitor daily weights, I&O, fluid restriction 1.5-2L/day, renal function and electrolytes [facility] 03-13-2023 Note Patient here for 6 m o follow up CAD, hypertension, CHF, and hx of DVT. He was admitted to [facility] in January 2023 for pneumonia. Then admitted again in February 2023 for hypotension and weakness. He now has home health coming to help him twice a week. Says his BP has been much better. Says Dr. Lopez cut his Eliquis down to 2.5mg bid and he isn't sure why. He denies chest pain, SOB, palpitations, and bleeding on Eliquis. Review of Systems HENT: Positive for tinnitus. Hematologic/Lymphatic: Bruises/bleeds easily. Skin: Positive for color change. Musculoskeletal: Positive for arthritis and back pain. All other systems reviewed and are negative. [facility] 03-13-2023 Note [facility] PROGR ESS NOTE HPI: Sheng Bauer is a 82 y.o. male here for routine f/U for HFrEF- currently recovered, CAD s/p CABD, HTN, CKD. Routine follow up CHF, CAD, HTN, and hx of DVT. Denies chest pain, SOB, and LE edema. BP is elevated in the office today. Reports that he was recently in the hospital 1st week of February r/t AMS and hypotension r/t SNF was overmedicating him with antihypertensives. Currently he has returned home and son manages his medications- pill box filling. States that he is feeling well, denied worsening SOB and admits typical SOB with exertion, denied chest pain, orthopnea or bleeding tendencies. Admits that bruising is improved from earlier this year. Patient here for 6 mo follow up CAD, hypertension, CHF, and hx of DVT. He was admitted to [facility] in October s/p fall, January 2023 for pneumonia. Then admitted again in February 2023 for hypotension and weakness. He now has home health coming to help him twice a week. Says his BP has been much better. Says Dr. Lopez cut his Eliquis down to 2.5mg bid and he isn't sure why. He denies chest pain, SOB, palpitations, and bleeding on Eliquis. 02/04/23-02/08/23 Discharge summary Review of Systems HENT: Positive for tinnitus. Hematologic/Lymphatic: Bruises/bleeds easily. Skin: Positive for color change. Musculoskeletal: Positive for arthritis and back pain. All other systems reviewed and are negative. Previous HPI per DR Simon 09/2022 HPI Sheng is seen in follow up. He is a 82 yo man with history of CAD s/p CABG (VEGA to LAD, SVG to PDA, left radial to OM) in 2001. He has history of AL in 2001. He has hypertension on treatment. He has CKD with Cr previously around 1.5. In 2017 he was admitted to [facility] transferred [facility] with symptoms of unstable angina and new onset T-wave inversions in the inferolateral leads. Cardiac cath was done and he underwent stenting of the circumflex with Synergy TONYA on 03/09/2018. He did get admitted in December 2019 to [facility] after a tree fell on him, with fever, tachycardia and dyspnea and CTA chest ruled out PE. His echo in that setting showed reduced EF at 35-40%. His stress test in March 2020 showed a ejection fraction of 43% with no ischemia. In November 2021 he developed lower extremity DVT and was placed on Eliquis. This was in the setting of illness. He was found to have drop in ejection fraction with echo in November 2021 showing an ejection fraction of 20 to 25%. I have managed this medically. In December 2021 he was admitted to the hospital with lower extremity swelling and underwent intravenous diuresis. His echocardiogram at that time showed improvement in ejection fraction to 50-55%. In January 2022 he had volume overload and was diuresed with bumex and spironolactone. He then was maintained on bumex only. At last visit of 07/08/2022 and due to hypotension I reduced doxazosin to 4 mg twice daily. He is currently taking it once daily. I also reduced Entresto 49-51 mg to 1 tablet twice daily. Follow-up blood testing in August 2022 showed renal function at baseline. Echocardiogram in July 2022 showed ejection fraction preserved at 50 to 55% with mild pulmonic regurgitation. His blood pressure has been better at home. Today in the office it was initially elevated but then was better. At home he reports that his blood pressure is maintained in good range. He denies chest pain. He has no lower extremity edema. He says he has no shortness of breath on exertion. NYHA class I-II. Visit Vitals BP 102/60 (BP Location: Left arm, Patient Position: Sitting) Pulse 85 Ht 1.727 m (5' 8 ) Wt 88.5 kg (195 lb) SpO2 97% BMI 29.65 kg/m??? Smoking Status Former BSA 2.06 m??? No Known Allergies Medications: Current Outpatient Medications on File Prior to Visit Medication Sig Dispense Refill amitriptyline (Elavil) 25 mg tablet Take 1 tablet by mouth at bedtime. apixaban (Eliquis) 5 mg tablet Take 2.5 mg by mouth in the morning and at bedtime. aspirin 81 mg EC tablet Take 1 tablet every day by oral route. atorvastatin (Lipitor) 20 mg tablet Take 1 tablet by mouth at bedtime. bumetanide (Bumex) 2 mg tablet Take 1 tablet by mouth in the morning. carvedilol (Coreg) 25 mg tablet Take 1 tablet by mouth in the morning and at bedtime. FeroSuL 325 mg (65 mg iron) tablet Take 1 tablet by mouth in the morning. insulin glargine (Lantus) 100 unit/mL (3 mL) pen INJECT 50 UNITS SUBCUTANEOUSLY TWICE A DAY isosorbide mononitrate ER (Imdur) 60 mg 24 hr tablet Take 1 tablet every day by oral route for 90 days. levothyroxine (Synthroid, Levoxyl) 50 mcg tablet Take 1 tablet by mouth in the morning. sacubitriL-valsartan (Entresto) 49-51 mg tablet Take 1 tablet by mouth in the morning and at bedtime. spironolactone (Aldactone) 25 mg tablet Take 0.5 tablets by mouth in the morning. [DISCONTINUED] hydrALAZINE (Apresoline) 50 mg tablet Take 1 tablet (50 mg) by mouth in the mo (more content not included)... [facility] 09-12-2022 Note [facility] Subjective Sheng Bauer is a 82 y.o. year old male patient being seen for 2 mo follow up CHF, CAD, HTN, and hx of DVT. Doxazosin and Entresto were both reduced at last apt in Jul 2022. Had an echo in Jul and labs 2 weeks ago. Patient states he's only taking doxazosin once daily. Says he feels better now than he has in a long time. Denies chest pain, SOB, and LE edema. BP is elevated in the office today. He has not taken his meds yet today. Says his BP at home is around 117-119/70 when he checks it. Patient Active Problem List Diagnosis Coronary arteriosclerosis Hypertensive disorder Hx of CABG Chronic systolic heart failure (CMS/HCC) Hx of deep venous thrombosis Diabetes mellitus type 2, uncontrolled, without complications Ischemic cardiomyopathy Family History Problem Relation Name Age of Onset Coronary artery disease Mother Social History Tobacco Use Smoking status: Former Types: Cigarettes Quit date: 08/07/1988 Years since quittin.1 Smokeless tobacco: Never Substance Use Topics Alcohol use: Not Currently Drug use: Never IAN Sheng is seen in follow up. He is a 82 yo man with history of CAD s/p CABG (VEGA to LAD, SVG to PDA, left radial to OM) in 2001. He has history of AL in 2001. He has hypertension on treatment. He has CKD with Cr previously around 1.5. In 2017 he was admitted to [facility] transferred [facility] with symptoms of unstable angina and new onset T-wave inversions in the inferolateral leads. Cardiac cath was done and he underwent stenting of the circumflex with Synergy TONYA on 03/09/2018. He did get admitted in December 2019 to [facility] after a tree fell on him, with fever, tachycardia and dyspnea and CTA chest ruled out PE. His echo in that setting showed reduced EF at 35-40%. His stress test in March 2020 showed a ejection fraction of 43% with no ischemia. In November 2021 he developed lower extremity DVT and was placed on Eliquis. This was in the setting of illness. He was found to have drop in ejection fraction with echo in November 2021 showing an ejection fraction of 20 to 25%. I have managed this medically. In December 2021 he was admitted to the hospital with lower extremity swelling and underwent intravenous diuresis. His echocardiogram at that time showed improvement in ejection fraction to 50-55%. In January 2022 he had volume overload and was diuresed with bumex and spironolactone. He then was maintained on bumex only. At last visit of 07/08/2022 and due to hypotension I reduced doxazosin to 4 mg twice daily. He is currently taking it once daily. I also reduced Entresto 49-51 mg to 1 tablet twice daily. Follow-up blood testing in August 2022 showed renal function at baseline. Echocardiogram in July 2022 showed ejection fraction preserved at 50 to 55% with mild pulmonic regurgitation. His blood pressure has been better at home. Today in the office it was initially elevated but then was better. At home he reports that his blood pressure is maintained in good range. He denies chest pain. He has no lower extremity edema. He says he has no shortness of breath on exertion. NYHA class I-II. Review of Systems HENT: Positive for tinnitus. Musculoskeletal: Positive for arthritis and back pain. All other systems reviewed and are negative. Objective Visit Vitals BP 121/69 (BP Location: Left arm, Patient Position: Sitting) Pulse 79 Ht 1.727 m (5' 8 ) Wt 92.1 kg (203 lb) SpO2 98% BMI 30.87 kg/m??? Smoking Status Former BSA 2.1 m??? Physical Exam Constitutional: Appearance: He is well-developed. He is obese. He is not ill-appearing. HENT: Head: Normocephalic and atraumatic. Nose: Nose normal. Eyes: General: No scleral icterus. Pupils: Pupils are equal, round, and reactive to light. Neck: Thyroid: No thyromegaly. Vascular: No JVD. Cardiovascular: Rate and Rhythm: Normal rate and regular rhythm. Pulses: Radial pulses are 2+ on the right side and 2+ on the left side. Heart sounds: Normal heart sounds. No murmur heard. No friction rub. No gallop. Pulmonary: Effort: Pulmonary effort is normal. No respiratory distress. Breath sounds: Normal breath sounds. No wheezing or rales. Chest: Chest wall: No tenderness. Abdominal: General: Bowel sounds are normal. There is no distension. Palpations: Abdomen is soft. Tenderness: There is no abdominal tenderness. Musculoskeletal: General: No swelling. Cervical back: Neck supple. Right lower leg: No edema. Left lower leg: No edema. Skin: General: Skin is warm and dry. Neurological: General: No focal deficit present. Mental Status: He is alert and oriented to person, place, and time. Psychiatric: Mood and Affect: Mood normal. Behavior: Behavior is cooperative. Judgment: Judgment normal. Allergies No Known Allergies Medications Current Outpatient Medications: amitriptyline (Elavil) 2 (more content not included)... [facility] 02-15-2022 Hospital Discharge instructions Patient Education 02/15/2022 10:25:03 Prostate-Specific Antigen Test Prostate-Specific Antigen Test Why am I having this test? The prostate-specific antigen (PSA) test is a screening test for prostate cancer. It can identify early signs of prostate cancer, which may allow for more effective treatment. Your health care provider may recommend that you have a PSA test starting at age 40 or that you have one earlier or later, depending on your risk factors for prostate cancer. You may also have a PSA test: To monitor treatment of prostate cancer. To check whether prostate cancer has returned after treatment. If you have signs of other conditions that can affect PSA levels, such as: ?An enlarged prostate that is not caused by cancer (benign prostatic hyperplasia, BPH). This condition is very common in older men. ?A prostate infection. What is being tested? This test measures the amount of PSA in your blood. PSA is a protein that is made in the prostate. The prostate naturally produces more PSA as you age, but very high levels may be a sign of a medical condition. What kind of sample is taken? A blood sample is required for this test. It is usually collected by inserting a needle into a blood vessel or by sticking a finger with a small needle. Blood for this test should be drawn before having an exam of the prostate. How do I prepare for this test? Do not ejaculate starting 24 hours before your test, or as long as told by your health care provider. Tell a health care provider about: Any allergies you have. All medicines you are taking, including vitamins, herbs, eye drops, creams, and [id number] medicines. This also includes: ?Medicines to assist with hair growth, such as finasteride. ?Any recent exposure to a medicine called diethylstilbestrol. Any blood disorders you have. Any recent procedures you have had, especially any procedures involving the prostate or rectum. Any medical conditions you have. Any recent urinary tract infections (UTIs) you have had. How are the results reported? Your test results will be reported as a value that indicates how much PSA is in your blood. This will be given as nanograms of PSA per milliliter of blood (ng/mL). Your health care provider will compare your results to normal ranges that were established after testing a large group of people (reference ranges). Reference ranges may vary among labs and hospitals. PSA levels vary from person to person and generally increase with age. Because of this variation, there is no single PSA value that is considered normal for everyone. Instead, PSA reference ranges are used to describe whether your PSA levels are considered low or high (elevated). Common reference ranges are: Low: 0 2.5 ng/mL. Slightly to moderately elevated: 2.6 10.0 ng/mL. Moderately elevated: 10.0 19.9 ng/mL. Significantly elevated: 20 ng/mL or greater. Sometimes, the test results may report that a condition is present when it is not present (false-positive result). What do the results mean? A test result that is higher than 4 ng/mL may mean that you are at an increased risk for prostate cancer. However, a PSA test by itself is not enough to diagnose prostate cancer. High PSA levels may also be caused by the natural aging process, prostate infection, or BPH. PSA screening cannot tell you if your PSA is high due to cancer or a different cause. A prostate biopsy is the only way to diagnose prostate cancer. A risk of having the PSA test is diagnosing and treating prostate cancer that would never have caused any symptoms or problems (overdiagnosis and overtreatment). Talk with your health care provider about what your results mean. Questions to ask your health care provider Ask your health care provider, or the department that is doing the test: When will my results be ready? How will I get my results? What are my treatment options? What other tests do I need? What are my next steps? Summary The prostate-specific antigen (PSA) test is a screening test for prostate cancer. Your health care provider may recommend that you have a PSA test starting at age 40 or that you have one earlier or later, depending on your risk factors for prostate cancer. A test result that is higher than 4 ng/mL may mean that you are at an increased risk for prostate cancer. However, elevated levels can be caused by a number of conditions other than prostate cancer. Talk with your health care provider about what your results mean. This information is not intended to replace advice given to you by your health care provider. Make sure you discuss any questions you have with your health care provider. Document Released: 08/26/2005 Document Revised: 07/06/2018 Document Reviewed: 04/30/2018 [employer] Patient Education [employer]. Follow Up Care 08/10/2021 09:51:10 With:Evan Ochoa MD, César Vega, URO Address: [facility] [address], [place] [address]- When:Within 6 Month(s) Comments:w/ psa [facility] Evaluation + Plan note Future Appointments Appointment Date:08/23/2022 10:30:00 AM Scheduled Provider:César Gordon Jr., MD Location:[facility] Appointment Type:URO Office Visit Diagnostic Tests PendingPSA Total 02/15/22 [facility] Hospital course Narrative No data available for this section [facility] Hospital Discharge instructions No data available for this section [facility] Progress note No data available for this section [facility] Summary Purpose Family History No Family History Records FoundNo Family History Records FoundNo Family History Records FoundNo Family History Records Found Advance Directives No Advanced Directives Records FoundNo Advanced Directives Records FoundNo Advanced Directives Records FoundNo Advanced Directives Records Found Additional Source Comments (unrecognized sect ion and content) No Status Records FoundNo Status Records FoundNo Status Records FoundNo Status Records Found INFORMATION SOURCE (unrecogn ized section and content) DATE CREATED AUTHOR 03/19/2018 [facility] DATE CREATED AUTHOR AUTHOR'S ORGANIZ ATION 09/21/2022 Keith Michel [facility] DATE CREATED AUTHOR AUTHOR'S ORGANIZ ATION 12/16/2022 [facility] [facility] DATE CREATED AUTHOR AUTHOR'S ORGANIZ ATION 07/17/2023 [facility] Care Team (unrecognized sect ion and content) Personnel Name: Derrick Lopez MD Address: [address] [place] [address] Personnel Name: Derrick Lopez MD Address: Address: [address] [place] [address] FOR RECORDS PERTAINING TO PATIENTS WHO ARE OR HAVE BEEN ENROLLED IN A CHEMICAL DEPENDENCY/SUBSTANCEABUSE PROGRAM, SOME INFORMATION MAY BE OMITTED. This clinical summary was aggregated from multiple sources. Caution should be exercised in using it in the provision of clinical care. This summary normalizes information from multiple sources, and as a consequence, information in this document may materially change the coding, format and clinical context of patient data. In addition, data may be omitted in some cases. CLINICAL DECISIONS SHOULD BE BASED ON THE PRIMARY CLINICAL RECORDS. [facility] [employer] provides no warranty or guarantee of the accuracy or completeness of information in this document.
[2023-08-11 10:11] LABS: Basophils Percent Auto 0.3 % (0.2-2.0); Eosinophils Absolute Auto 0.1 10^3/uL (0.0-0.7); Eosinophils Percent Auto 0.8 % (0.9-7.0); Hematocrit 43.5 % (42.0-54.0); Hemoglobin 13.4 g/dL (14.0-18.0); Immature Granulocytes Abs Auto 0.04 10^3/uL (0.00-0.03); Immature Granulocytes Pct Auto 0.4 % (0.0-0.5); Lymphocytes Absolute Auto 1.7 10^3/uL (1.2-3.8); Lymphocytes Percent Auto 17.7 % (20.5-60.0); Mean Corpuscular HGB Conc 30.8 g/dL (29.9-35.2); Mean Corpuscular Hemoglobin 30.7 pg (25.9-34.0); Mean Corpuscular Volume 99.5 fL (80.0-94.0); Mean Platelet Volume 10.2 fL (9.5-13.5); Monocytes Absolute Auto 0.8 10^3/uL (0.3-0.8); Monocytes Percent Auto 7.8 % (1.7-12.0); Platelet Count 179 10^3/uL (150-450); Red Blood Count 4.37 10^6/uL (4.70-6.10); Red Cell Distribution Width 14.1 % (11.0-15.0); White Blood Count 9.6 10^3/uL (4.0-11.0)
[2023-08-11 11:15] LABS: Alanine Aminotransferase 40 U/L (16-63); Albumin Globulin Ratio 0.8; Alkaline Phosphatase 115 U/L (46-116); Anion Gap 7.6; Aspartate Amino Transferase 12 U/L (15-37); Bilirubin Total 0.6 mg/dL (0.2-1.0); Calcium 9.3 mg/dL (8.5-10.1); Carbon Dioxide 29.3 mmol/L (21.0-32.0); Chloride 105 mmol/L (98-107); Estimated GFR (African America 31 (>=60); Estimated GFR (Non-African Ame 25 (>=60); Free T3 1.87 pg/mL (2.18-3.98); Globulin 3.7 g/dL; Glucose 215 mg/dL (74-106); Potassium 3.9 mmol/L (3.5-5.1); Sodium 138 mmol/L (136-145); Thyroid Stimulating Hormone 1.962 uIU/mL (0.358-3.740); Total Protein 6.7 g/dL (6.4-8.2)
[2023-08-11 11:16] LABS: Free T4 0.98 ng/dL (0.76-1.46)
== END 2023-08-11 09:44 | disposition home or self-care (01) ==
LOC: LAB 09:46
PROVIDERS: PCP Family Medicine; Visit Provider Family Medicine
DX: E03.9 Hypothyroidism, unspecified (principal); N18.2 Chronic kidney disease, stage 2 (mild); I50.9 Heart failure, unspecified; D50.9 Iron deficiency anemia, unspecified; I12.9 Hypertensive chronic kidney disease with stage 1 through stage 4 chronic kidney disease, or unspecified chronic kidney disease
CPT/HCPCS: 36415; 80053; 83880; 84439; 84443; 84481; 85025

== ENCOUNTER 2023-12-01 13:21 | Outpatient (OUT) | payer MEDICARE, SELFPAY ==
[2023-12-01 14:58] LABS: Prostate Specific Antigen Scrn 11.05 ng/mL (<=4.00)
[2023-12-05 14:09] LABS: PSA, Free 2.38 ng/mL; Prostate Specific Ag 8.5 ng/mL (0.0-4.0)
== END 2023-12-01 13:22 | disposition home or self-care (01) ==
LOC: LAB 13:21
PROVIDERS: PCP Family Medicine; Visit Provider Family Medicine
DX: R97.20 Elevated prostate specific antigen [PSA] (principal)
CPT/HCPCS: 36415; 84153; 84154; G0103

== ENCOUNTER 2024-02-06 10:45 | Outpatient (OUT) | payer MEDICARE, SELFPAY ==
--- OUTSIDE RECORDS SUMMARY | 2024-02-06 11:06 | XMS_ITS | CCD ---
Author Organization [facility] Care Team Providers Care Hearing Care Practitioner Name Role Phone AHMED, ZAYRA Unavailable Unavailable AHMED, ZAYRA Unavailable Unavailable LUCY DERRICK Unavailable Unavailable HAYJAZLYN Unavailable Unavailable MS Unavailable Unavailable UNKNOWN, PROVIDER Unavailable Unavailable Derrick [...] DR MEZA Admitting Unavailable HOY ., DR EMZA Attending Unavailable HOY ., DR MEZA Consulting Unavailable HOY ., DR MZEA Primary Care Unavailable HOY ., DR MEZA [...] Unavailable HOY ., DR MEZA Attending Unavailable WEST, DR MONY Burnett Consulting Unavailable OMER, DR AWAIS King Consulting Unavailable RAJESH, WILSON Consulting Unavailable DIAB ., LVEAR Consulting Unavailable COATAllison, REDD Consulting Unavailable DIAB ., LEVAR Admitting Unavailable DIAB ., LEVAR Attending Unavailable HOY ., DR MEZA Primary Care Unavailable WEST, DR MONY Burnett Consulting Unavailable DIAB ., [...] Unavailable HOY ., DR MEZA Attending Unavailable CARA, LEATHA Attending Unavailable MOOREN ABARCA Attending Unavailable MOTEVIN, OREN Attending Unavailable Allergies Allergy Classification Reported Allergen(s) Allergy Type Date of Onset Reaction(s) Facility (1 source) No Known Medication Allergies; 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: [No Known Medication Allergies] Propensity to adverse reactions (disorder) [facility] Repository Medications Current Medications Medication Drug Class(es) [...] myocardial infarction; 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] Onset: [...] Onset: 11-30-2022 Chronic Other aftercare (2 sources) 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; 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: [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 aspirin] Onset: 03-08-2018 Episodic Other aftercare (1 source) Other nursing home (current) drug therapy; 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: [OTH USP CURRENT DRUG THERAPY] Onset: 12-16-2022 Episodic Other aftercare (1 source) 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; 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: [CASINO FLOOR PERSON CURRENT USE OF INSULIN] Onset: 12-16-2022 Episodic Other aftercare (1 source) 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 aspirin; 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: [CASINO FLOOR PERSON CURRENT USE OF ASPIRIN] Onset: 11-30-2022 Episodic [...] UNSPECIFIED] Onset: 12-16-2022 Chronic Unclassified (1 source) skilled nursing (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) use of oral hypoglycemic drugs; 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: [CASINO FLOOR PERSON (CURRENT) USE OF ORAL HYPOGLYCEMIC DRUGS] Onset: [...] Range Facility Office Visiton 07-14-2023 Follow-up visit [id number] Nohelia Bauer Lauren 1940 M Date Provider Department Center 07/14/2023 OREN PEDRO KWASI Borja Family History Problem Relation Age of Onset Coronary artery disease Mother Family Status - Relation Status Age at Mother Level of Service:01070 MS OFFICE/OUTPATIENT ESTABLISHED LOW MDM 20-29 MIN Normal [facility] Office Visiton 03-13-2023 Follow-up visit [id number] Nohelia Bauer Lauren 1940 M Date Provider Department Center 03/13/2023 LEATHA GONZALEZ KWASI Vald[facility] Family History Problem Relation Age of Onset Coronary artery disease Mother Family Status - Relation Status Age at Mother Level of Service:30393 MS OFFICE/OUTPATIENT ESTABLISHED MOD MDM 30-39 MIN Normal [facility] PSA, FREE AND TOTAL RATIOon 11-24-2022 % Free PSA 33.9 % Normal [facility] Comment on above: Result Comment: The table [...] of men. Performed By: #### P SAFREE ####[facility] Pefrjuwbcc67[address] [place], [place] [address]PwBebo Diaz Prostate specific Ag [Mass/Vol] 6.2 ng/mL Critically high 0.0-4.0 [facility] Comment on above: Result Comment: Aye ECLIA methodology. .According to the [place] [employer], Serum PSA shoulddecrease and remain [...] malignant disease. Performed By: #### P SAFREE ####[facility] Qsduaecbck45[address] [place] [address]Dr. Yuki Diaz PSA, Free 2.10 ng/mL Normal N/A [facility] Comment on above: Result Comment: Aye ECLIA methodology. Performed By: #### P SAFREE ####[facility] Djqhsgfwks4626 [place] [address]Dr. Yuki Diaz CBC AUTO DIFFon 11-23-2022 BASO # 0.0 103/ul Normal 0.0-0.1 [facility] Comment on above: Performed By: #### CBC ####[facility] Ejngntqtr[address] [place], [place] [address]Dr. Yuki Diaz Basophils/100 WBC (Bld) 0.3 % Normal 0.2-2.0 [facility] Comment on above: Performed By: #### CBC ####[facility] Slayzkuykl[address] [place], [place] [address]Dr. Yuki Diaz EO # 0.3 103/ul Normal 0.0-0.7 [facility] Comment on above: Performed By: #### CBC ####[facility] Zyihltolqp[address] [place], [place] [address]Dr. Yuki Diaz Eosinophils/100 WBC (Bld) 4.7 % Normal 0.9-7.0 [facility] Comment on above: Performed By: #### CBC ####[facility] Vgjbvdwexi[address] [place], [place] [address]Dr. Yuki Diaz Erythrocyte distribution width (RBC) [Ratio] 15.6 % Critically high 11.0-15.0 [facility] Comment on above: Performed By: #### CBC ####[facility] Zbjdwerznw[address] [place], [place] [address]Dr. Yuki Diaz Hematocrit (Bld) [Volume fraction] 33.5 % Critically low 42.0-54.0 [facility] Comment on above: Performed By: #### CBC ####[facility] ital Vaixvgxpod15[address] [place] [address]Dr. Yuki Diaz Hemoglobin (Bld) [Mass/Vol] 10.0 g/dL Critically low 14.0-18.0 [facility] Comment on above: Performed By: #### CBC ####[facility] ital Rmmmabqllh32[address] [place] [address]Dr. Yuki Diaz IG # 0.03 10e3/ul Normal 0.00-0.03 [facility] Comment on above: Performed By: #### CBC ####[facility] ital Vukqngiogp1230 [place] [address]Dr. Yuki Diaz IG % 0.5 % Normal 0.0-0.5 [facility] Comment on above: Performed By: #### CBC ####[facility] ital Liyodorfvy3762 [place] [address]Dr. Monsealyssa Diaz LYMPH # 1.5 103/ul Normal 1.2-3.8 [facility] Comment on above: Performed By: #### CBC ####[facility] ital Jsudxevcqb2661 [place] [address]Dr. Yuki Diaz Lymphocytes/100 WBC (Bld) 22.6 % Normal 20.5-60.0 [facility] Comment on above: Performed By: #### CBC ####[facility] Yenolzlzcp7118 [place] [address]Dr. Monsealyssa Diaz MANUAL DIFF REQ NO Normal [facility] Comment on above: Performed By: #### CBC ####[facility] Mjenlnxajh5[address] [place] [address]Dr. Yuki Diaz MCH (RBC) [Entitic mass] 27.9 pg Normal 25.9-34.0 [facility] Comment on above: Performed By: #### CBC ####[facility] ital Zqicpczkjk8231 [place] [address]Dr. Yuki Diaz MCHC (RBC) [Mass/Vol] 29.9 g/dL Normal 29.9-35.2 [facility] Comment on above: Performed By: #### CBC ####[facility] ital Vcjlundyrx9718 [place] [address]Dr. Yuki Diaz MCV (RBC) [Entitic vol] 93.6 fL Normal 80.0-94.0 [facility] Comment on above: Performed By: #### CBC ####[facility] ital Oftoarpvct0068 [place] [address]Dr. Yuki Diaz MONO # 0.8 103/ul Normal 0.3-0.8 [facility] Comment on above: Performed By: #### CBC ####[facility] ital Qcioiphajf0206 [place] [address]Dr. Yuki Diaz Monocytes/100 WBC (Bld) 12.6 % Critically high 1.7-12.0 [facility] Comment on above: Performed By: #### CBC ####[facility] Qpohkohfwl0355 [place] [address]Dr. Yuki Diaz NEUT # 3.9 103/ul Normal 1.4-6.5 [facility] Comment on above: Performed By: #### CBC ####[facility] Sxsqubhdmh6711 [place] [address]Dr. Yuki Diaz Neutrophils/100 WBC (Bld) 59.3 % Normal 43.0-75.0 [facility] Comment on above: Performed By: #### CBC ####[facility] Bxsuuznkrg3178 [place] [address]Dr. Yuki Diaz Platelet mean volume (Bld) [Entitic vol] 10.1 fL Normal 9.5-13.5 [facility] Comment on above: Performed By: #### CBC ####[facility] ital Eamlbeexqf9046 [place] [address]Dr. Yuki Diaz PLT 231 103/ul Normal 150-450 [facility] Comment on above: Performed By: #### CBC ####[facility] Mfmobtjcql6713 [place] [address]Dr. Yuki Diaz RBC 3.58 106/ul Critically low 4.70-6.10 [facility] Comment on above: Performed By: #### CBC ####[facility] Beqxyveeqw3987 [place] [address]Dr. Yuki Diaz WBC 6.6 103/ul Normal 4.0-11.0 [facility] Comment on above: Performed By: #### CBC ####[facility] Usyzelwltw9367 [place] [address]Dr. Yuki Diaz FREE T3on 11-23-2022 FREE T3 2.20 pg/mlL Normal 2.18-3.98 [facility] Comment on above: Performed By: #### CMP, FT3, TSH, T4, LI PID ####[facility] Uhvbidddrq7745 [place] [address]Dr. Yuki Diaz GLYCOHEMOGLOBIN A1Con 2022 ADA RECOMMENDATION SEE BELOW Normal [facility] Comment on above: Result Comment: ADA RECOMMENDED LIMIT 4. 0 - 6.0 ADA THERAPEUTIC TARGET < 7.0 ACTION SUGGESTED > 7.0 Performed By: #### A 1C ####[facility] Kilrhybzrd[address] [place], [place] [address]Dr. Yuki Diaz Glucose [Mass/Vol] 171 mg/dL Normal [facility] Comment on above: Performed By: #### A1C ####[facility] Mcoqanmbov4347 [place] [address]Dr. Yuki Diaz HbA1c (Bld) [Mass fraction] 7.6 % Critically high 4.5-6.2 [facility] Comment on above: Performed By: #### A1C ####[facility] Bzwnqtnvyk6492 [place] [address]Dr. Yuki Diaz LIPID PROFILEon 11-23-2022 CHOL-HDL RATIO NORM SEE BELOW Normal [facility] Comment on above: Result Comment: 3.3 - 4.4 LOW RISK 4.4 - 7.1 AVERAGE RISK 7.1 - 11.0 MODERATE RISK >11.0 HIGH RISK Performed By: #### C MP, FT3, TSH, T4, LIPID ####[facility] Nhtobhvgtj9892 [place] [address]Dr. Yuki Diaz Cholesterol [Mass/Vol] 91 mg/dL Normal <=200 [facility] Comment on above: Performed By: #### CMP, FT3, TSH, T4, LI PID ####[facility] Vogcfuwdwr5674 [place] [address]Dr. Yuki Diaz Cholesterol in HDL [Mass/Vol] 51 mg/dL Normal 40-60 [facility] Comment on above: Performed By: #### CMP, FT3, TSH, T4, LI PID ####[facility] Iarpoxtqdr9943 [place] [address]Dr. Yuki Diaz Cholesterol in LDL [Mass/Vol] 27.2 mg/dL Normal [facility] Comment on above: Performed By: #### CMP, FT3, TSH, T4, LI PID ####[facility] Ibqkhsukbu[address] [place], [place] [address]Dr. Yuki Diaz Cholesterol.tota l/Cholesterol in HDL [Mass ratio] 1.8 {ratio} Normal [facility] Comment on above: Performed By: #### CMP, FT3, TSH, T4, LI PID ####[facility] Lkalimlbsc[address] [place], [place] [address]Dr. Yuki Diaz HDL NORMAL > or = 60 mg/dl - LO W CARDIOVASCULAR RISK <40 mg/dl - HIGH CARDIOVASCULAR RISK Normal [facility] Comment on above: Performed By: #### CMP, FT3, TSH, T4, LI PID ####[facility] Byhakhhjqz9396 [place] [address]Dr. Yuki Diaz LDL CALC NORMAL SEE BELOW Normal [facility] Comment on above: Result Comment: <100 mg/dl OPTIMAL 100 - 129 mg/dl NEAR OR ABOVE OPTIMAL 130 - 159 mg/dl BORDERLINE HIGH 160 - 189 mg/dl HIGH >190 mg/dl VERY HIGH Performed By: #### C MP, FT3, TSH, T4, LIPID ####[facility] Aejbmkjzvq[address] [place], [place] [address]Dr. Yuki Diaz Triglyceride [Mass/Vol] 64 mg/dL Normal <=150 [facility] Comment on above: Performed By: #### CMP, FT3, TSH, T4, LI PID ####[facility] Ltisrugvhn413[address] [place], [place] [address]Dr. Yuki Diaz VLDL CALC 12.8 mg/dL Normal [facility] Comment on above: Performed By: #### CMP, FT3, TSH, T4, LI PID ####[facility] Ukxsetgnzz74[address] [place], [place] [address]Dr. Yuki Diaz PROF 14(COMP METB)on 023 Albumin [Mass/Vol] 2.9 g/dL Critically low 3.4-5.0 [facility] Comment on above: Performed By: #### CMP, FT3, TSH, T4, LI PID ####[facility] Kxmqhtclxb24[address] [place], [place] [address]Dr. Yuki Diaz Albumin/Globulin [Mass ratio] 0.7 {ratio} Normal [facility] Comment on above: Performed By: #### CMP, FT3, TSH, T4, LI PID ####[facility] Prsqwergif210[address] [place], [place] [address]Dr. Yuki Diaz ALP [Catalytic activity/Vol] 95 U/L Normal 46-116 [facility] Comment on above: Performed By: #### CMP, FT3, TSH, T4, LI PID ####[facility] Vqnfmdbvzs[address] [place], [place] [address]Dr. Yuki Diaz ALT [Catalytic activity/Vol] 15 U/L Critically low 16-63 [facility] Comment on above: Performed By: #### CMP, FT3, TSH, T4, LI PID ####[facility] Szegspxyli39[address] [place], [place] [address]Dr. Yuki Diaz Anion gap [Moles/Vol] 13.2 mmol/L Normal [facility] Comment on above: Performed By: #### CMP, FT3, TSH, T4, LI PID ####[facility] Fbjmwnjzhn[address] [place], [place] [address]Dr. Yuki Diaz AST [Catalytic activity/Vol] 10 U/L Critically low 15-37 [facility] Comment on above: Performed By: #### CMP, FT3, TSH, T4, LI PID ####[facility] Djoybylflh9[address] [place], [place] [address]Dr. Yuki Diaz Bilirubin [Mass/Vol] 0.7 mg/dL Normal 0.2-1.0 [facility] Comment on above: Performed By: #### CMP, FT3, TSH, T4, LI PID ####[facility] Reweqpjdsv[address] [place], [place] [address]Dr. Yuki Diaz Calcium [Mass/Vol] 8.9 mg/dL Normal 8.5-10.1 [facility] Comment on above: Performed By: #### CMP, FT3, TSH, T4, LI PID ####[facility] Rxjfzdhard655[address] [place], [place] [address]Dr. Yuki Diaz Chloride [Moles/Vol] 105 mmol/L Normal 98-107 [facility] Comment on above: Performed By: #### CMP, FT3, TSH, T4, LI PID ####[facility] Nazzlhbosf[address] [place], [place] [address]Dr. Yuki Diaz CO2 [Moles/Vol] 30.0 mmol/L Normal 21.0-32.0 [facility] Comment on above: Performed By: #### CMP, FT3, TSH, T4, LI PID ####[facility] Myicpvutkl49[address] [place], [place] [address]Dr. Yuki Diaz Creatinine [Mass/Vol] 2.36 mg/dL Critically high 0.70-1.30 [facility] Comment on above: Performed By: #### CMP, FT3, TSH, T4, LI PID ####[facility] Wwyurqjzvw137[address] [place], [place] [address]Dr. Yuki Diaz EGFR-AF BELGIAN 32 mL/min/1.73m2 Critically low >=60 [facility] Comment on above: Performed By: #### CMP, FT3, TSH, T4, LI PID ####[facility] Jvcdrizpqv11[address] [place], [place] [address]Dr. Yuki Diaz EGFR-NON AF BELGIAN 27 mL/min/1.73m2 Critically low >=60 [facility] Comment on above: Performed By: #### CMP, FT3, TSH, T4, LI PID ####[facility] Niszzdzfwb84[address] [place], [place] [address]Dr. Yuki Diaz Globulin (S) [Mass/Vol] 4.2 g/dL Normal [facility] Comment on above: Performed By: #### CMP, FT3, TSH, T4, LI PID ####[facility] Yitiixeebn6022 [place] [address]Dr. Yuki Diaz Glucose [Mass/Vol] 96 mg/dL Normal 74-106 [facility] Comment on above: Performed By: #### CMP, FT3, TSH, T4, LI PID ####[facility] Jwtztcbsll[address] [place], [place] [address]Dr. Yuki Diaz Potassium [Moles/Vol] 4.2 mmol/L Normal 3.5-5.1 [facility] Comment on above: Performed By: #### CMP, FT3, TSH, T4, LI PID ####[facility] Sudqfsojlo[address] [place], [place] [address]Dr. Yuki Diaz Protein [Mass/Vol] 7.1 g/dL Normal 6.4-8.2 [facility] Comment on above: Performed By: #### CMP, FT3, TSH, T4, LI PID ####[facility] Xlresupkri[address] [place], [place] [address]Dr. Yuki Diaz Sodium [Moles/Vol] 144 mmol/L Normal 136-145 [facility] Comment on above: Performed By: #### CMP, FT3, TSH, T4, LI PID ####[facility] Hfgoedqkbk[address] [place], [place] [address]Dr. Yuki Diaz Urea nitrogen [Mass/Vol] 28.0 mg/dL Critically high 7.0-18.0 [facility] Comment on above: Performed By: #### CMP, FT3, TSH, T4, LI PID ####[facility] Loiodrrnkg[address] [place], [place] [address]Dr. Yuki Diaz Urea nitrogen/Creatin ine [Mass ratio] 11.9 mg/mg Normal [facility] Comment on above: Performed By: #### CMP, FT3, TSH, T4, LI PID ####[facility] Jrhdciryiu[address] [place], [place] [address]Dr. Yuki Diaz T4on 11-23-2022 T4 [Mass/Vol] 7.70 ug/dL Normal 4.50-12.10 [facility] Comment on above: Performed By: #### CMP, FT3, TSH, T4, LI PID ####[facility] Zduojizmfq1757 [place] [address]Dr. Yuki Diaz TSHon 11-23-2022 TSH 2.577 uIU/mL Normal 0.358-3.74 0 [facility] Comment on above: Performed By: #### CMP, FT3, TSH, T4, LI PID ####[facility] Qaafxmgadn[address] [place], [place] [address]Dr. Yuki Diaz VITAMIN D 25 OHon 11-23-2022 VIT D 25-OH 35.8 ng/mL Normal [facility] Comment on above: Performed By: #### VITAD, PSASC ####[facility] Uyktipfudt[address] [place], [place] [address]Dr. Yuki Diaz VIT D RANGES SEE BELOW Normal [facility] Comment on above: Result Comment: <20 ng/mL Vit D deficien t 20 - <30 ng/mL Vit D insufficient 30 - 100 ng/mL Vit D sufficient >100 ng/mL Potential Toxicity Performed By: #### V ITAD, PSASC ####[facility] Aktcrhvqei[address] [place], [place] [address]Dr. Yuki Diaz BNPon 10-27-2022 Natriuretic peptide B (Bld) [Mass/Vol] 6821.0 pg/mL Critically high <=1,800.0 [facility] Comment on above: Performed By: #### CMP, BNP ####[facility] Rcylwcflax[address] [place], [place] [address]Dr. Yuki Diaz CBC W MANUAL DIFFon 10-28-19 23 ACANTHOCYTES 1+ Normal [facility] Comment on above: Performed By: #### CBCMAN ####[facility] Bomibofboa[address] [place], [place] [address]Dr. Yuki Diaz ATYPICAL LYMPH # Normal [facility] Comment on above: Performed By: #### CBCMAN ####[facility] ostal Okigyneikr[address] [place], [place] [id number]. Yuki Diaz ATYPICAL LYMPH % Normal [facility] Comment on above: Performed By: #### CBCMAN ####[facility] Eiodrbjdku6237 [place] [address]Dr. Yuki Diaz BAND # 0.0 103/ul Normal 0.0-0.3 [facility] Comment on above: Performed By: #### CBCMAN ####[facility] Ynbpzkrxae0241 [place] [address]Dr. Yialyssa Diaz BAND % 0 % Normal 0-5 [facility] Comment on above: Performed By: #### CBCMAN ####[facility] Kyadhpwwly6517 [place] [address]Dr. Yuki Diaz BASOM # 0.00 103/ul Normal 0.00-0.10 [facility] Comment on above: Performed By: #### CBCMAN ####[facility] Lshrqrsbjr9029 [place] [address]Dr. Yuki Diaz BASOM % 0.0 % Critically low 0.2-2.0 [facility] Comment on above: Performed By: #### CBCMAN ####[facility] Vownwzyjzp1151 [place] [address]Dr. Yuki Diaz BLAST # Normal [facility] Comment on above: Performed By: #### CBCMAN ####[facility] Jfmwcvzltt6237 [place] [address]Dr. Yuki Diaz BLAST % Normal [facility] Comment on above: Performed By: #### CBCMAN ####[facility] Fvcusrcrea1209 [place] [address]Dr. Yuki Diaz CORRECTED WBC Normal 4.0-11.0 [facility] Comment on above: Performed By: #### CBCMAN ####[facility] Fyhznkxdng6582 [place] [address]Dr. Yuki Diaz EOS # 0.00 103/ul Normal 0.00-0.70 [facility] Comment on above: Performed By: #### CBCMAN ####[facility] Iugagaeaff26[address] [place], [place] [address]Hx. Yuki Diaz EOS% 0.0 % Critically low 0.9-7.0 [facility] Comment on above: Performed By: #### CBCCHANTE ####[facility] Mdakugmnvo4742 [place], [place] [address]Rz. Yuki Diaz HCT 27.5 % Critically low 42.0-54.0 [facility] Comment on above: Performed By: #### CBCCHANTE ####[facility] Bksaxikzmd7755 [place], [place] [address]Pm. Yuki Diaz HGB 8.7 g/dl Critically low 14.0-18.0 [facility] Comment on above: Performed By: #### CBCCHANTE ####[facility] Nwmjplqvrm2660 [place] [id number]. Yuki Diaz LYMPHM # 0.81 103/ul Critically low 1.20-3.80 [facility] Comment on above: Performed By: #### CBCCHANTE ####[facility] Fvacoatwsn0891 [place], [place] [address]Mv. Yuki Diaz LYMPHM% 8.0 % Critically low 20.5-60.0 [facility] Comment on above: Performed By: #### CBCCHANTE ####[facility] Qbkxzymcig1251 [place] [id number]. Yuki Diaz MCH 28.2 pg Normal 25.9-34.0 [facility] Comment on above: Performed By: #### CBCCHANTE ####[facility] Yemqcmvqrx6815 [place], [place] [address]Zp. Yuki Diaz MCHC 31.6 g/dl Normal 29.9-35.2 [facility] Comment on above: Performed By: #### CBCCHANTE ####[facility] Tnrqvarnna2075 [place], [place] [address]Qt. Yuki Diaz MCV 89.0 fL Normal 80.0-94.0 [facility] Comment on above: Performed By: #### CBCCHANTE ####[facility] Uwhhltcyjv4025 [place] [id number]. Yuki Diaz METAMYELOCYTE # Normal [facility] Comment on above: Performed By: #### CBCMAN ####[facility] Qowpgsciff4283 [place] [id number]. Yuki Diaz METAMYELOCYTE % Normal [facility] Comment on above: Performed By: #### CBCCHANTE ####[facility] Ryvhkwxbdd8690 [place] [address]Dr. Yuki Diaz MONOM# 0.40 103/ul Normal 0.30-0.80 [facility] Comment on above: Performed By: #### CBCCHANTE ####[facility] Ckyutvkgck6734 [place] [address]Dr. Yuki Diaz MONOM% 4.0 % Normal 1.7-12.0 [facility] Comment on above: Performed By: #### CBCCHANTE ####[facility] Eifurijyqk6860 [place] [address]Dr. Yuki Diaz MPV 10.4 fL Normal 9.5-13.5 [facility] Comment on above: Performed By: #### CBCCHANTE ####[facility] Qsivhamusw2675 [place] [address]Dr. Yuki Diaz MYELOCYTE # Normal [facility] Comment on above: Performed By: #### CBCCHANTE ####[facility] Evlvrqsibz6279 [place] [address]Dr. Yuki Diaz MYELOCYTE % Normal [facility] Comment on above: Performed By: #### CBCCHANTE ####[facility] Sbfrcetiqp7488 [place] [address]Dr. Yuki Diaz NRBC Normal [facility] Comment on above: Performed By: #### CBCMAN ####[facility] [facility] [address] [place] [address]Dr. Yuki Diaz PLT 237 103/ul Normal 150-450 [facility] Comment on above: Performed By: #### CBCMAN ####[facility] Quehqwolhg4985 [place], [place] [address]Og. Yuki Diaz RBC 3.09 106/ul Critically low 4.70-6.10 [facility] Comment on above: Performed By: #### CBCMAN ####[facility] Dkbtmjljgv7[address] [place] [id number]. Yuki Diaz RDW 14.7 % Normal 11.0-15.0 [facility] Comment on above: Performed By: #### CBCMAN ####[facility] Ijwuluhlss26[address] [place] [id number]. Yuki Diaz SEG # 8.89 103/ul Critically high 1.40-6.50 [facility] Comment on above: Performed By: #### CBCMAN ####[facility] Vblgvfjdsq4483 [place] [id number]. Yuki Diaz SEG % 88.0 % Critically high 43.0-75.0 [facility] Comment on above: Performed By: #### CBCMAN ####[facility] Crsbpxchdz7010 [place] [phone]. Yuki Diaz WBC 10.1 103/ul Normal 4.0-11.0 [facility] Comment on above: Performed By: #### CBCMAN ####[facility] Xjaxdfymoj4804 [place] [id number]. Yuki Diaz POINT OF CARE GLUCOSEon 10-06 Glucose [Mass/Vol] 225 mg/dL Critically high 74-106 [facility] Comment on above: Performed By: #### POCGLUC ####[facility] Ghyxrzsnfy0664 [place] [phone]. Yuki Diaz Glucose [Mass/Vol] 214 mg/dL Critically high 74-106 [facility] Comment on above: Performed By: #### POCGLUC ####[facility] Onixgcdqte4169 [place] [phone]. Yuki Diaz PRBC LEUKOREDUCEDon 10-28-19 23 PRBC LEUKOREDUCED Normal [facility] Comment on above: Performed By: #### PRBC ####[facility] Bijilobodp[address] [place] [address]Dr. Yuki Diaz PROF 14(COMP METB)on 023 Albumin [Mass/Vol] 1.8 g/dL Critically low 3.4-5.0 [facility] Comment on above: Performed By: #### CMP, BNP ####[facility] Agjvxuxnss25[address] [place] [address]Dr. Yuki Diaz Albumin/Globulin [Mass ratio] 0.5 {ratio} Normal [facility] Comment on above: Performed By: #### CMP, BNP ####[facility] Rxvqgnoeyf[address] [place], [place] [address]Dr. Yuki Diaz ALP [Catalytic activity/Vol] 66 U/L Normal 46-116 [facility] Comment on above: Performed By: #### CMP, BNP ####[facility] Ijknjxmgzi[address] [place], [place] [address]Dr. Ykui Diaz ALT [Catalytic activity/Vol] 13 U/L Critically low 16-63 [facility] Comment on above: Performed By: #### CMP, BNP ####[facility] Qhuaxvryck478[address] [place], [place] [address]Dr. Yuki Diaz Anion gap [Moles/Vol] 11.8 mmol/L Normal [facility] Comment on above: Performed By: #### CMP, BNP ####[facility] Xavwfexzxd47[address] [place], [place] [address]Dr. Yuki Diaz AST [Catalytic activity/Vol] 14 U/L Critically low 15-37 [facility] Comment on above: Performed By: #### CMP, BNP ####[facility] Kueyhyjuip[address] [place], [place] [address]Dr. Yuki Diaz Bilirubin [Mass/Vol] 0.4 mg/dL Normal 0.2-1.0 [facility] Comment on above: Performed By: #### CMP, BNP ####[facility] Uxpxyshtod7[address] [place], [place] [address]Dr. Yuki Diaz Calcium [Mass/Vol] 8.2 mg/dL Critically low 8.5-10.1 [facility] Comment on above: Performed By: #### CMP, BNP ####[facility] Yquagvbzkh92[address] [place] [address]Dr. Yuki Diaz Chloride [Moles/Vol] 103 mmol/L Normal 98-107 [facility] Comment on above: Performed By: #### CMP, BNP ####[facility] Tutcgcqecj229[address] [place], [place] [address]Dr. Yuki Diaz CO2 [Moles/Vol] 26.7 mmol/L Normal 21.0-32.0 [facility] Comment on above: Performed By: #### CMP, BNP ####[facility] Yepjvbyink[address] [place], [place] [address]Dr. Yuki Diaz Creatinine [Mass/Vol] 2.62 mg/dL Critically high 0.70-1.30 [facility] Comment on above: Performed By: #### CMP, BNP ####[facility] Mamirgywse6499[address] [place], [place] [address]Dr. Yuki Joe EGFR-AF BELGIAN 29 mL/min/1.73m2 Critically low >=60 [facility] Comment on above: Performed By: #### CMP, BNP ####[facility] Dsxdlxukkl98[address] [place], [place] [address]Dr. Yuki Diaz EGFR-NON AF BELGIAN 24 mL/min/1.73m2 Critically low >=60 [facility] Comment on above: Performed By: #### CMP, BNP ####[facility] Rqtgjsmcei85[address] [place], [place] [address]Dr. Yuki Diaz Globulin (S) [Mass/Vol] 3.9 g/dL Normal [facility] Comment on above: Performed By: #### CMP, BNP ####[facility] Ygxoijxzib248[address] [place], [place] [address]Dr. Yuki Joe Glucose [Mass/Vol] 209 mg/dL Critically high 74-106 [facility] Comment on above: Performed By: #### CMP, BNP ####[facility] Sdqvbkbkan389[address] [place], [place] [address]Dr. Yuki Diaz Potassium [Moles/Vol] 4.5 mmol/L Normal 3.5-5.1 [facility] Comment on above: Performed By: #### CMP, BNP ####[facility] Qoxcmmhmdm7158 [place] [address]Dr. Yuki Diaz Protein [Mass/Vol] 5.7 g/dL Critically low 6.4-8.2 [facility] Comment on above: Performed By: #### CMP, BNP ####[facility] Aeyypnsmku[address] [place], [place] [address]Dr. Yuki Diaz Sodium [Moles/Vol] 137 mmol/L Normal 136-145 [facility] Comment on above: Performed By: #### CMP, BNP ####[facility] Labtpjyyvu6833[address] [place], [place] [address]Dr. Yuki Diaz Urea nitrogen [Mass/Vol] 67.0 mg/dL Critically high 7.0-18.0 [facility] Comment on above: Performed By: #### CMP, BNP ####[facility] Atmqhjnefz[address] [place], [place] [address]Dr. Yuki Diaz Urea nitrogen/Creatin ine [Mass ratio] 25.6 mg/mg Normal [facility] Comment on above: Performed By: #### CMP, BNP ####[facility] Lpvclkvcyn65[address] [place], [place] [address]Dr. Yuki Diaz BNPon 10-26-2022 Natriuretic peptide B (Bld) [Mass/Vol] 3539.0 pg/mL Critically high <=1,800.0 [facility] Comment on above: Performed By: #### CMP, BNP ####[facility] Trassafggr[address] [place], [place] [address]Dr. Yuki Diaz CBC W MANUAL DIFFon 10-27-19 23 ATYPICAL LYMPH # Normal [facility] Comment on above: Performed By: #### CBCMAN ####[facility] Mqewmsuvyg239[address] [place], [place] [address]Dr. Yuki Diaz ATYPICAL LYMPH % Normal [facility] Comment on above: Performed By: #### CBCMAN ####[facility] Wjbivktmfi[address] [place], [place] [address]Dr. Yilan Diaz BAND # 0.0 103/ul Normal 0.0-0.3 [facility] Comment on above: Performed By: #### CBCMAN ####[facility] Kapytmgzzq[address] [place] [address]Dr. Yuki Diaz BAND % 0 % Normal 0-5 [facility] Comment on above: Performed By: #### CBCMAN ####[facility] Lfzzjzahnf28[address] [place] [address]Dr. Yuki Diaz BASOM # 0.00 103/ul Normal 0.00-0.10 [facility] Comment on above: Performed By: #### CBCMAN ####[facility] Vjmwfvzeks7[address] [place] [address]Dr. Yuki Diaz BASOM % 0.0 % Critically low 0.2-2.0 [facility] Comment on above: Performed By: #### CBCMAN ####[facility] Mzhsxwqbfv5[address] [place] [address]Dr. Yuki Diaz BLAST # Normal [facility] Comment on above: Performed By: #### CBCMAN ####[facility] Dinxqqywzl8178 [place] [address]Dr. Yuki Diaz BLAST % Normal [facility] Comment on above: Performed By: #### CBCMAN ####[facility] Wdpsscdgcx54[address] [place] [address]Dr. Yuki Diaz CORRECTED WBC Normal 4.0-11.0 [facility] Comment on above: Performed By: #### CBCMAN ####[facility] Yykyrwcelw24[address] [place] [address]Dr. Yuki Diaz EOS # 0.00 103/ul Normal 0.00-0.70 [facility] Comment on above: Performed By: #### CBCMAN ####[facility] Jbxpdwpkjp2267 [place] [address]Dr. Yuki Diaz EOS% 0.0 % Critically low 0.9-7.0 [facility] Comment on above: Performed By: #### CBCMAN ####[facility] Taeygtzrsi4[address] [place] [phone]. Yuki Diaz HCT 28.9 % Critically low 42.0-54.0 [facility] Comment on above: Performed By: #### CBCCHANTE ####[facility] Gohnkyowns5[address] [place] [phone]. Yuki Diaz HGB 9.1 g/dl Critically low 14.0-18.0 [facility] Comment on above: Performed By: #### CBCCHANTE ####[facility] Yzktwtczns8903 [place] [phone]. Yuki Diaz LYMPHM # 0.37 103/ul Critically low 1.20-3.80 [facility] Comment on above: Performed By: #### CBCCHANTE ####[facility] Alzmgedmpf5755 [place] [phone]. Yuki Diaz LYMPHM% 3.0 % Critically low 20.5-60.0 [facility] Comment on above: Performed By: #### CBCCHANTE ####[facility] Jmbtzlzepf1875 [place] [phone]. Yuki Diaz MCH 28.4 pg Normal 25.9-34.0 [facility] Comment on above: Performed By: #### CBCCHANTE ####[facility] Dknnjfvurh5667 [place] [phone]. Yuki Diza MCHC 31.5 g/dl Normal 29.9-35.2 [facility] Comment on above: Performed By: #### CBCCHANTE ####[facility] Egxyqbwkmp1691 [place] [phone]. Yuki Daiz MCV 90.3 fL Normal 80.0-94.0 [facility] Comment on above: Performed By: #### CBCCHANTE ####[facility] Yexqmggyuv8395 [place] [phone]. Yuki Diaz METAMYELOCYTE # Normal [facility] Comment on above: Performed By: #### CBCCHANTE ####[facility] Usvfrguwiv5238 [place] [address]Dr. Yuki Diaz METAMYELOCYTE % Normal [facility] Comment on above: Performed By: #### CBCCHANTE ####[facility] Yjtgtxeasg6305 [place] [address]Dr. Yuki Diaz MONOM# 0.24 103/ul Critically low 0.30-0.80 [facility] Comment on above: Performed By: #### CBCCHANTE ####[facility] Cvbcdftfze7077 [place] [address]Dr. Yuki Diaz MONOM% 2.0 % Normal 1.7-12.0 [facility] Comment on above: Performed By: #### CBCCHANTE ####[facility] Yhyfganotx3077 [place] [address]Dr. Yuki Diaz MPV 10.3 fL Normal 9.5-13.5 [facility] Comment on above: Performed By: #### CBCCHANTE ####[facility] Hrsaaklhaj8162 [place] [address]Dr. Yuki Diaz MYELOCYTE # Normal [facility] Comment on above: Performed By: #### CBCCHANTE ####[facility] Fmaxvdekft2130 [place] [address]Dr. Yuki Diaz MYELOCYTE % Normal [facility] Comment on above: Performed By: #### CBCCHANTE ####[facility] Jwpcuazgjb7462 [place] [address]Dr. Yuki Diaz NRBC Normal [facility] Comment on above: Performed By: #### CBCCHANTE ####[facility] Vhpasvjxet9692 [place] [address]Dr. Yuki Diaz PLT 215 103/ul Normal 150-450 [facility] Comment on above: Performed By: #### CBCCHANTE ####[facility] Busyuygwhc8003 [place] [address]Dr. Yuki Diaz RBC 3.20 106/ul Critically low 4.70-6.10 [facility] Comment on above: Performed By: #### CBCCHANTE ####[facility] Lfscewcefi0572 [place], [place] [address]Lc. Yuki Diaz RDW 14.7 % Normal 11.0-15.0 [facility] Comment on above: Performed By: #### CBCMAN ####[facility] Cpjpyolnlm0496 [place], [place] [address]Mq. Yuki Diaz SEG # 11.59 103/ul Critically high 1.40-6.50 [facility] Comment on above: Performed By: #### CBCMAN ####[facility] Ymmkricuog6372 [place] [phone]. Yuki Diaz SEG % 95.0 % Critically high 43.0-75.0 [facility] Comment on above: Performed By: #### CBCMAN ####[facility] Vfubzaqxgv8975 [place] [phone]. Yuki Diaz WBC 12.2 103/ul Critically high 4.0-11.0 [facility] Comment on above: Performed By: #### CBCMAN ####[facility] Oppyvbhtkq2666 [place] [phone]. Yuki Diaz POINT OF CARE GLUCOSEon 10-06 Glucose [Mass/Vol] 292 mg/dL Critically high 74-106 [facility] Comment on above: Performed By: #### POCGLUC ####[facility] Zpmzzfwvth7082 [place] [phone]. Yuki Diaz Glucose [Mass/Vol] 194 mg/dL Critically high 74-106 [facility] Comment on above: Performed By: #### POCGLUC ####[facility] Zqslptsojp7477 [place] [phone]. Yuki Diaz Glucose [Mass/Vol] 280 mg/dL Critically high 74-106 [facility] Comment on above: Performed By: #### POCGLUC ####[facility] Tsfxwrjmnz8298 [place] [phone]. Yuki Diaz Glucose [Mass/Vol] 212 mg/dL Critically high 74-106 [facility] Comment on above: Performed By: #### POCGLUC ####[facility] Eqkhelkqgv8055 [place] [address]Dr. Yuki Diaz Glucose [Mass/Vol] 148 mg/dL Critically high 74-106 [facility] Comment on above: Performed By: #### POCGLUC ####[facility] Fndstflyrn[address] [place], [place] [address]Dr. Yuki Diaz PRBC LEUKOREDUCEDon 10-27-19 23 PRBC LEUKOREDUCED Normal [facility] Comment on above: Performed By: #### PRBC ####[facility] pital Mplgpngflb5445 [place] [address]Dr. Yuki Diaz PROF 14(COMP METB)on 023 Albumin [Mass/Vol] 2.0 g/dL Critically low 3.4-5.0 [facility] Comment on above: Performed By: #### CMP, BNP ####[facility] Tmrolhsgib11[address] [place], [place] [address]Dr. Yuki Diaz Albumin/Globulin [Mass ratio] 0.5 {ratio} Normal [facility] Comment on above: Performed By: #### CMP, BNP ####[facility] Vswcbkjsft7830[address] [place], [place] [address]Dr. Yuki Diaz ALP [Catalytic activity/Vol] 75 U/L Normal 46-116 [facility] Comment on above: Performed By: #### CMP, BNP ####[facility] Aufpplbcdq297[address] [place], [place] [address]Dr. Yuki Diaz ALT [Catalytic activity/Vol] 10 U/L Critically low 16-63 [facility] Comment on above: Performed By: #### CMP, BNP ####[facility] Eigyhwuplh188[address] [place], [place] [address]Dr. Yuki Diaz Anion gap [Moles/Vol] 13.9 mmol/L Normal [facility] Comment on above: Performed By: #### CMP, BNP ####[facility] Vcegsfmzla515[address] [place], [place] [address]Dr. Yuki Diaz AST [Catalytic activity/Vol] 13 U/L Critically low 15-37 [facility] Comment on above: Performed By: #### CMP, BNP ####[facility] Yfpuqeznlm4312[address] [place], [place] [address]Dr. Yuki Diaz Bilirubin [Mass/Vol] 0.7 mg/dL Normal 0.2-1.0 [facility] Comment on above: Performed By: #### CMP, BNP ####[facility] Ovimppphyb625[address] [place], [place] [address]Dr. Yuki Diaz Calcium [Mass/Vol] 8.5 mg/dL Normal 8.5-10.1 [facility] Comment on above: Performed By: #### CMP, BNP ####[facility] Biehhfrmyq3916[address] [place], [place] [address]Dr. Yuki Diaz Chloride [Moles/Vol] 103 mmol/L Normal 98-107 [facility] Comment on above: Performed By: #### CMP, BNP ####[facility] Yplpdmuwws339[address] [place], [place] [address]Dr. Yuki Diaz CO2 [Moles/Vol] 25.8 mmol/L Normal 21.0-32.0 [facility] Comment on above: Performed By: #### CMP, BNP ####[facility] Qofrekhbpz907[address] [place], [place] [address]Dr. Yuki Diaz Creatinine [Mass/Vol] 2.87 mg/dL Critically high 0.70-1.30 [facility] Comment on above: Performed By: #### CMP, BNP ####[facility] Jnmykyiphd8[address] [place], [place] [address]Dr. Yuki Diaz EGFR-AF BELGIAN 26 mL/min/1.73m2 Critically low >=60 [facility] Comment on above: Performed By: #### CMP, BNP ####[facility] Mtlejgtcvg860[address] [place], [place] [address]Dr. Yuki Diaz EGFR-NON AF BELGIAN 21 mL/min/1.73m2 Critically low >=60 [facility] Comment on above: Performed By: #### CMP, BNP ####[facility] Muwskwdbdz7916[address] [place], [place] [address]Dr. Yuki Diaz Globulin (S) [Mass/Vol] 4.0 g/dL Normal [facility] Comment on above: Performed By: #### CMP, BNP ####[facility] Uywdmpxdzm9195 [place] [address]Dr. Yuki Diaz Glucose [Mass/Vol] 209 mg/dL Critically high 74-106 [facility] Comment on above: Performed By: #### CMP, BNP ####[facility] Jxftalxbhb3601 [place] [address]Dr. Yuki Diaz Potassium [Moles/Vol] 4.7 mmol/L Normal 3.5-5.1 [facility] Comment on above: Performed By: #### CMP, BNP ####[facility] Hzsscozkch1101[address] [place], [place] [address]Dr. Yuki Diaz Protein [Mass/Vol] 6.0 g/dL Critically low 6.4-8.2 [facility] Comment on above: Performed By: #### CMP, BNP ####[facility] Etnmavahvu313[address] [place], [place] [address]Dr. Yuki Diaz Sodium [Moles/Vol] 138 mmol/L Normal 136-145 [facility] Comment on above: Performed By: #### CMP, BNP ####[facility] Olkqxcgnhd057[address] [place], [place] [address]Dr. Yuki Diaz Urea nitrogen [Mass/Vol] 58.0 mg/dL Critically high 7.0-18.0 [facility] Comment on above: Performed By: #### CMP, BNP ####[facility] Orjhtddtwx28[address] [place], [place] [address]Dr. Yuki Diaz Urea nitrogen/Creatin ine [Mass ratio] 20.2 mg/mg Normal [facility] Comment on above: Performed By: #### CMP, BNP ####[facility] Lsxxithqfm2216[address] [place], [place] [address]Dr. Yuki Diaz XR KNEE LT 4V or >on 023 XR KNEE LT 4V or > Normal [facility] CBC AUTO DIFFon 10-25-2022 BASO # 0.0 103/ul Normal 0.0-0.1 [facility] Comment on above: Performed By: #### CBC ####[facility] Xagbajscmv4614 [place] [address]Dr. Yuki Diaz Basophils/100 WBC (Bld) 0.0 % Critically low 0.2-2.0 [facility] Comment on above: Performed By: #### CBC ####[facility] Nmzohuoeuv555[address] [place], [place] [address]Dr. Yuki Diaz EO # 0.0 103/ul Normal 0.0-0.7 [facility] Comment on above: Performed By: #### CBC ####[facility] Lnflwhpsxa55[address] [place], [place] [address]Dr. uYki Diaz Eosinophils/100 WBC (Bld) 0.0 % Critically low 0.9-7.0 [facility] Comment on above: Performed By: #### CBC ####[facility] Iiprznnqpf822[address] [place], [place] [address]Dr. Yuki Diaz Erythrocyte distribution width (RBC) [Ratio] 14.7 % Normal 11.0-15.0 [facility] Comment on above: Performed By: #### CBC ####[facility] Znjfxtdihv315[address] [place], [place] [address]Dr. Yuki Diaz Hematocrit (Bld) [Volume fraction] 30.9 % Critically low 42.0-54.0 [facility] Comment on above: Performed By: #### CBC ####[facility] Ffvcugldhf660[address] [place], [place] [address]Dr. Yuki Diaz Hemoglobin (Bld) [Mass/Vol] 9.6 g/dL Critically low 14.0-18.0 [facility] Comment on above: Result Comment: pt. rcvd. blood Performed By: #### C BC ####[facility] Ltrvsruzug[address] [place], [place] [address]Dr. Yuki Diaz IG # 0.06 10e3/ul Critically high 0.00-0.03 [facility] Comment on above: Performed By: #### CBC ####[facility] Nvtrbdvvgg930[address] [place], [place] [address]Dr. Monsealyssa Diaz IG % 0.5 % Normal 0.0-0.5 [facility] Comment on above: Performed By: #### CBC ####[facility] ital Hvxympjfpd4460 [place] [address]Dr. Yuki Diaz LYMPH # 0.4 103/ul Critically low 1.2-3.8 [facility] Comment on above: Performed By: #### CBC ####[facility] ital Etoeuabhoy7721 [place] [address]Dr. Yuki Diaz Lymphocytes/100 WBC (Bld) 3.5 % Critically low 20.5-60.0 [facility] Comment on above: Performed By: #### CBC ####[facility] ital Udegolqdix5455 [place] [address]Dr. Yuki Diaz MANUAL DIFF REQ NO Normal [facility] Comment on above: Performed By: #### CBC ####[facility] Midqwwyckg5941 [place] [address]Dr. Yuki Diaz MCH (RBC) [Entitic mass] 28.3 pg Normal 25.9-34.0 [facility] Comment on above: Performed By: #### CBC ####[facility] Wlosbndtlq5305 [place] [address]Dr. Yuki Diaz MCHC (RBC) [Mass/Vol] 31.1 g/dL Normal 29.9-35.2 [facility] Comment on above: Performed By: #### CBC ####[facility] Uizkuasjzg7306 [place] [address]Dr. Yuki Diaz MCV (RBC) [Entitic vol] 91.2 fL Normal 80.0-94.0 [facility] Comment on above: Performed By: #### CBC ####[facility] Xhfjrvdldz2952 [place] [address]Dr. Yuki Diaz MONO # 0.5 103/ul Normal 0.3-0.8 [facility] Comment on above: Performed By: #### CBC ####[facility] Abzilwmnzn6027 [place] [address]Dr. Yuki Diaz Monocytes/100 WBC (Bld) 4.4 % Normal 1.7-12.0 [facility] Comment on above: Performed By: #### CBC ####[facility] ital Sgtlqxhaus3699 [place] [address]Dr. Yuki Diaz NEUT # 10.8 103/ul Critically high 1.4-6.5 [facility] Comment on above: Performed By: #### CBC ####[facility] ital Yagxuafwcs9489 [place] [address]Dr. Yuki Diaz Neutrophils/100 WBC (Bld) 91.6 % Critically high 43.0-75.0 [facility] Comment on above: Performed By: #### CBC ####[facility] ital Sxeavsepmg2110 [place] [address]Dr. Yuki Diaz Platelet mean volume (Bld) [Entitic vol] 10.1 fL Normal 9.5-13.5 [facility] Comment on above: Performed By: #### CBC ####[facility] Oekitmjovk1426 [place] [address]Dr. Yuki Diaz PLT 223 103/ul Normal 150-450 [facility] Comment on above: Performed By: #### CBC ####[facility] Nfqlyxygey5196 [place] [address]Dr. Yuki Diaz RBC 3.39 106/ul Critically low 4.70-6.10 [facility] Comment on above: Performed By: #### CBC ####[facility] Vqqengrvse8618 [place] [address]Dr. Yuki Diaz WBC 11.8 103/ul Critically high 4.0-11.0 [facility] Comment on above: Performed By: #### CBC ####[facility] Mvmrehojfj38[address] [place] [address]Dr. Yuki Diaz BASO # 0.0 103/ul Normal 0.0-0.1 [facility] Comment on above: Performed By: #### CBC ####[facility] Opqfnoyznv5881 [place] [address]Dr. Yuki Diaz Basophils/100 WBC (Bld) 0.1 % Critically low 0.2-2.0 [facility] Comment on above: Performed By: #### CBC ####[facility] Hekjdiqbys68[address] [place] [address]Dr. Yuki Diaz EO # 0.0 103/ul Normal 0.0-0.7 [facility] Comment on above: Performed By: #### CBC ####[facility] Byfxebfmhe3781 [place] [address]Dr. Yuki Diaz Eosinophils/100 WBC (Bld) 0.2 % Critically low 0.9-7.0 [facility] Comment on above: Performed By: #### CBC ####[facility] Ipxmddwzhh8663 [place] [address]Dr. Yuki Diaz Erythrocyte distribution width (RBC) [Ratio] 15.1 % Critically high 11.0-15.0 [facility] Comment on above: Performed By: #### CBC ####[facility] Hshbqfrarm6[address] [place] [address]Dr. Yuki Diaz Hematocrit (Bld) [Volume fraction] 23.7 % Critically low 42.0-54.0 [facility] Comment on above: Performed By: #### CBC ####[facility] Ofotjaasyd7815 [place] [address]Dr. Yuki Diaz Hemoglobin (Bld) [Mass/Vol] 7.4 g/dL Critically low 14.0-18.0 [facility] Comment on above: Performed By: #### CBC ####[facility] Ikoeeljkpk2164 [place] [address]Dr. Yuki Diaz IG # 0.07 10e3/ul Critically high 0.00-0.03 [facility] Comment on above: Performed By: #### CBC ####[facility] Lsoggxeakd1918 [place] [address]Dr. Yuki Diaz IG % 0.6 % Critically high 0.0-0.5 [facility] Comment on above: Performed By: #### CBC ####[facility] Mqdkhuxxrq4631 [place] [address]Dr. Yuki Diaz LYMPH # 0.8 103/ul Critically low 1.2-3.8 [facility] Comment on above: Performed By: #### CBC ####[facility] Unovsvbrhi4255 [place] [address]Dr. Yuki Diaz Lymphocytes/100 WBC (Bld) 6.6 % Critically low 20.5-60.0 [facility] Comment on above: Performed By: #### CBC ####[facility] ital Gaslflynjj3939 [place] [address]Dr. Monsealyssa Diaz MANUAL DIFF REQ NO Normal [facility] Comment on above: Performed By: #### CBC ####[facility] Hyywvghnjc2035 [place] [address]Dr. Yuki Diaz MCH (RBC) [Entitic mass] 28.1 pg Normal 25.9-34.0 [facility] Comment on above: Performed By: #### CBC ####[facility] Adieitqmpm5882 [place] [address]Dr. Monsealyssa Diaz MCHC (RBC) [Mass/Vol] 31.2 g/dL Normal 29.9-35.2 [facility] Comment on above: Performed By: #### CBC ####[facility] Arhigogkwt6700 [place] [address]Dr. Monsealyssa Diaz MCV (RBC) [Entitic vol] 90.1 fL Normal 80.0-94.0 [facility] Comment on above: Performed By: #### CBC ####[facility] Xhednchkut4589 [place] [address]Dr. Monsealyssa Diaz MONO # 1.5 103/ul Critically high 0.3-0.8 [facility] Comment on above: Performed By: #### CBC ####[facility] Sbdeprqwwd1510 [place] [address]Dr. Monsealyssa Diaz Monocytes/100 WBC (Bld) 11.5 % Normal 1.7-12.0 [facility] Comment on above: Performed By: #### CBC ####[facility] Ccvswfrxhf4348 [place] [address]Dr. Yuki Diaz NEUT # 10.2 103/ul Critically high 1.4-6.5 [facility] Comment on above: Performed By: #### CBC ####[facility] ital Wonktedxrf9714 [place] [address]Dr. Yuki Diaz Neutrophils/100 WBC (Bld) 81.0 % Critically high 43.0-75.0 [facility] Comment on above: Performed By: #### CBC ####[facility] ital Szvnmnisek2144 [place] [address]Dr. Yuki Diaz Platelet mean volume (Bld) [Entitic vol] 10.7 fL Normal 9.5-13.5 [facility] Comment on above: Performed By: #### CBC ####[facility] ital Vbosmdzpou5320 [place] [address]Dr. Yuki Diaz PLT 204 103/ul Normal 150-450 [facility] Comment on above: Performed By: #### CBC ####[facility] Ahsejpinvf1953 [place] [address]Dr. Yuki Diaz RBC 2.63 106/ul Critically low 4.70-6.10 [facility] Comment on above: Performed By: #### CBC ####[facility] Immmqnisfk8868 [place] [address]Dr. Yuki Diaz WBC 12.6 103/ul Critically high 4.0-11.0 [facility] Comment on above: Performed By: #### CBC ####[facility] Waiwriayml7861 [place] [address]Dr. Yuki Diaz CT ABD/PELVIS WO CONon 10-25 CT ABD/PELVIS WO CON Normal [facility] CT PELVIS WO CONon 3 CT PELVIS WO CON Normal [facility] POINT OF CARE GLUCOSEon 10-06 Glucose [Mass/Vol] 65 mg/dL Critically low 74-106 [facility] Comment on above: Performed By: #### POCGLUC ####[facility] Tpdtqeapkt[address] [place], [place] [address]Dr. Yuki Diaz Glucose [Mass/Vol] 137 mg/dL Critically high 74-106 [facility] Comment on above: Performed By: #### POCGLUC ####[facility] Ktxrvwftbm[address] [place], [place] [address]Dr. Yuki Diaz Glucose [Mass/Vol] 118 mg/dL Critically high 74-106 [facility] Comment on above: Performed By: #### POCGLUC ####[facility] Lummhvvevu1818 [place] [address]Dr. Yuki Diaz PROF 14(COMP METB)on 10-25- 023 Albumin [Mass/Vol] 2.2 g/dL Critically low 3.4-5.0 [facility] Comment on above: Performed By: #### CMP ####[facility] ital Sqgfitxsva9864 [place] [address]Dr. Yuki Diaz Albumin/Globulin [Mass ratio] 0.6 {ratio} Normal [facility] Comment on above: Performed By: #### CMP ####[facility] ital Gnbaypjpak3507 [place] [address]Dr. Yuki Diaz ALP [Catalytic activity/Vol] 64 U/L Normal 46-116 [facility] Comment on above: Performed By: #### CMP ####[facility] Ulflpwrxbd2709 [place] [address]Dr. Yuki Diaz ALT [Catalytic activity/Vol] 11 U/L Critically low 16-63 [facility] Comment on above: Performed By: #### CMP ####[facility] ital Vqbqozwked6041 [place] [address]Dr. Yuki Diaz Anion gap [Moles/Vol] 13.5 mmol/L Normal [facility] Comment on above: Performed By: #### CMP ####[facility] ital Bjnpfpeglu8442 [place] [address]Dr. Yuki Diaz AST [Catalytic activity/Vol] 12 U/L Critically low 15-37 [facility] Comment on above: Performed By: #### CMP ####[facility] ital Cjpjswpuhc7883 [place] [address]Dr. Yuki Diaz Bilirubin [Mass/Vol] 0.8 mg/dL Normal 0.2-1.0 [facility] Comment on above: Performed By: #### CMP ####[facility] ital Zgmqcdtuni3891 [place] [address]Dr. Yuki Diaz Calcium [Mass/Vol] 8.5 mg/dL Normal 8.5-10.1 [facility] Comment on above: Performed By: #### CMP ####[facility] ital Nvrgxmbngj5857 [place] [address]Dr. Yuki iDaz Chloride [Moles/Vol] 100 mmol/L Normal 98-107 [facility] Comment on above: Performed By: #### CMP ####[facility] ital Cdhwnqkuvv4963 [place] [address]Dr. Monsealyssa Joe CO2 [Moles/Vol] 28.1 mmol/L Normal 21.0-32.0 [facility] Comment on above: Performed By: #### CMP ####[facility] Uuwoiwxdkl9949 [place] [address]Dr. Yuki Diaz Creatinine [Mass/Vol] 2.93 mg/dL Critically high 0.70-1.30 [facility] Comment on above: Performed By: #### CMP ####[facility] Uituerpmlc7018 [place] [address]Dr. Yuki Diaz EGFR-AF BELGIAN 25 mL/min/1.73m2 Critically low >=60 [facility] Comment on above: Performed By: #### CMP ####[facility] Ppuvhfguql0106 [place] [address]Dr. Yuki Diaz EGFR-NON AF BELGIAN 21 mL/min/1.73m2 Critically low >=60 [facility] Comment on above: Performed By: #### CMP ####[facility] ital Lxpvhcnzar2782 [place] [address]Dr. Yuki Diaz Globulin (S) [Mass/Vol] 3.7 g/dL Normal [facility] Comment on above: Performed By: #### CMP ####[facility] Rquupypsua7714 [place] [address]Dr. Yuki Diaz Glucose [Mass/Vol] 112 mg/dL Critically high 74-106 [facility] Comment on above: Performed By: #### CMP ####[facility] Ccubjoithy5507 [place] [address]Dr. Yuki Diaz Potassium [Moles/Vol] 4.6 mmol/L Normal 3.5-5.1 [facility] Comment on above: Performed By: #### CMP ####[facility] Tbyjzgktif8713 [place] [address]Dr. Yuki Diaz Protein [Mass/Vol] 5.9 g/dL Critically low 6.4-8.2 [facility] Comment on above: Performed By: #### CMP ####[facility] ital Tvtbgqbvbn3640 [place] [address]Dr. Yuki Diaz Sodium [Moles/Vol] 137 mmol/L Normal 136-145 [facility] Comment on above: Performed By: #### CMP ####[facility] Itfsnxgdzn2100 [place] [address]Dr. Yuki Diaz Urea nitrogen [Mass/Vol] 56.0 mg/dL Critically high 7.0-18.0 [facility] Comment on above: Performed By: #### CMP ####[facility] Mnysvqsmuh[address] [place], [place] [address]Dr. Yuki Diaz Urea nitrogen/Creatin ine [Mass ratio] 19.1 mg/mg Normal [facility] Comment on above: Performed By: #### CMP ####[facility] Shcluaundc[address] [place], [place] [address]Dr. Yuki Diaz TYPE AND SCREENon 10-25-2022 TYPE AND SCREEN Negative Normal [facility] Comment on above: Performed By: #### TNS ####[facility] Idmwxmfsxt[address] [place], [place] [address]Dr. Yuki Diaz XR CHEST 1 Von 10-25-2022 XR CHEST 1 V Normal [facility] CBC AUTO DIFFon 10-24-2022 BASO # 0.0 103/ul Normal 0.0-0.1 [facility] Comment on above: Performed By: #### CBC ####[facility] Fdoufxqiwo2188 [place] [address]Dr. Yuki Diaz Basophils/100 WBC (Bld) 0.1 % Critically low 0.2-2.0 [facility] Comment on above: Performed By: #### CBC ####[facility] ital Yxjuxptrzy6222 [place] [address]Dr. Yuki Diaz EO # 0.0 103/ul Normal 0.0-0.7 [facility] Comment on above: Performed By: #### CBC ####[facility] ital Kraufxzsng4020 [place] [address]Dr. Yuki Diaz Eosinophils/100 WBC (Bld) 0.0 % Critically low 0.9-7.0 [facility] Comment on above: Performed By: #### CBC ####[facility] ital Aynusioaac2990 [place] [address]Dr. Yuki Diaz Erythrocyte distribution width (RBC) [Ratio] 15.2 % Critically high 11.0-15.0 [facility] Comment on above: Performed By: #### CBC ####[facility] Iiysmbgzhd120[address] [place], [place] [address]Dr. Yuki Diaz Hematocrit (Bld) [Volume fraction] 27.4 % Critically low 42.0-54.0 [facility] Comment on above: Performed By: #### CBC ####[facility] Eqcdqwnitk0405 [place] [address]Dr. Yuki Diaz Hemoglobin (Bld) [Mass/Vol] 8.4 g/dL Critically low 14.0-18.0 [facility] Comment on above: Performed By: #### CBC ####[facility] ital Wfgwwqpdlt0402 [place] [address]Dr. Yuki Diaz IG # 0.13 10e3/ul Critically high 0.00-0.03 [facility] Comment on above: Performed By: #### CBC ####[facility] Ylslwejvoq1943 [place] [address]Dr. Yuki Diaz IG % 0.7 % Critically high 0.0-0.5 [facility] Comment on above: Performed By: #### CBC ####[facility] ital Wqznsbjewm[address] [place], [place] [address]Dr. Yuki Diaz LYMPH # 1.0 103/ul Critically low 1.2-3.8 [facility] Comment on above: Performed By: #### CBC ####[facility] ital Otodrgbmsz9585 [place] [address]Dr. Yuki Diaz Lymphocytes/100 WBC (Bld) 5.5 % Critically low 20.5-60.0 [facility] Comment on above: Performed By: #### CBC ####[facility] ital Eqrqskmldi0250 [place] [address]DrBebo Diaz MANUAL DIFF REQ NO Normal [facility] Comment on above: Performed By: #### CBC ####[facility] ital Tiknsppkps0109 [place] [address]Dr. Yuki Diaz MCH (RBC) [Entitic mass] 27.8 pg Normal 25.9-34.0 [facility] Comment on above: Performed By: #### CBC ####[facility] ital Pphjvavyhy9151 [place] [address]Dr. Yuki Diaz MCHC (RBC) [Mass/Vol] 30.7 g/dL Normal 29.9-35.2 [facility] Comment on above: Performed By: #### CBC ####[facility] ital Hirvlmhwla3425 [place] [address]Dr. Yuki Diaz MCV (RBC) [Entitic vol] 90.7 fL Normal 80.0-94.0 [facility] Comment on above: Performed By: #### CBC ####[facility] ital Fsdhtwvfhd7856 [place] [address]Dr. Yuki Diaz MONO # 2.8 103/ul Critically high 0.3-0.8 [facility] Comment on above: Performed By: #### CBC ####[facility] ital Rpeqtxutgz0190 [place] [address]DrBebo Diaz Monocytes/100 WBC (Bld) 15.0 % Critically high 1.7-12.0 [facility] Comment on above: Performed By: #### CBC ####[facility] ital Dbrwgbccbj9455 [place] [address]Dr. Yuki Diaz NEUT # 14.9 103/ul Critically high 1.4-6.5 [facility] Comment on above: Performed By: #### CBC ####[facility] ital Tiknaltxef6417 [place] [address]DrBebo Diaz Neutrophils/100 WBC (Bld) 78.7 % Critically high 43.0-75.0 [facility] Comment on above: Performed By: #### CBC ####[facility] ital Ascngilejk1753 [place] [address]DrBebo Diaz Platelet mean volume (Bld) [Entitic vol] 10.8 fL Normal 9.5-13.5 [facility] Comment on above: Performed By: #### CBC ####[facility] Keogekgppa4184 [place] [address]DrBebo Diaz PLT 212 103/ul Normal 150-450 [facility] Comment on above: Performed By: #### CBC ####[facility] Ilhubgqglr5065 [place] [address]DrBebo Diaz RBC 3.02 106/ul Critically low 4.70-6.10 [facility] Comment on above: Performed By: #### CBC ####[facility] Inrleiippf8231 [place] [address]DrBebo Diaz WBC 18.9 103/ul Critically high 4.0-11.0 [facility] Comment on above: Performed By: #### CBC ####[facility] Bquifphmmx3908 [place] [address]Dr. Y[address] CT KNEE RT WO CONon 10-25-19 CT KNEE RT WO CON Normal [facility] POINT OF CARE GLUCOSEon 10-06 0 Glucose [Mass/Vol] 110 mg/dL Critically high 74-106 [facility] Comment on above: Performed By: #### POCGLUC ####[facility] Vndtakomtv7737 [place] [address]DrBebo Diaz Glucose [Mass/Vol] 134 mg/dL Critically high 74-106 [facility] Comment on above: Performed By: #### POCGLUC ####[facility] Zriibfkujr8486 [place] [address]Dr. Yuki Diaz PROF 14(COMP METB)on 023 Albumin [Mass/Vol] 2.8 g/dL Critically low 3.4-5.0 [facility] Comment on above: Performed By: #### CMP ####[facility] ital Axjlxcviiu7564 [place] [address]Dr. Yuki Diaz Albumin/Globulin [Mass ratio] 0.8 {ratio} Normal [facility] Comment on above: Performed By: #### CMP ####[facility] ital Lnkonpirmj4554 [place] [address]Dr. Yuki Diaz ALP [Catalytic activity/Vol] 89 U/L Normal 46-116 [facility] Comment on above: Performed By: #### CMP ####[facility] ital Oplavlzbxj8239 [place] [address]Dr. Yuki Diaz ALT [Catalytic activity/Vol] 10 U/L Critically low 16-63 [facility] Comment on above: Performed By: #### CMP ####[facility] ital Sgsezlocnn8046 [place] [address]Dr. Yuki Diaz Anion gap [Moles/Vol] 11.7 mmol/L Normal [facility] Comment on above: Performed By: #### CMP ####[facility] ital Ottoredmgc6159 [place] [address]Dr. Yuki Diaz AST [Catalytic activity/Vol] 12 U/L Critically low 15-37 [facility] Comment on above: Performed By: #### CMP ####[facility] ital Xipsfwdxfk5199 [place] [address]Dr. Yuki Diaz Bilirubin [Mass/Vol] 0.9 mg/dL Normal 0.2-1.0 [facility] Comment on above: Performed By: #### CMP ####[facility] ital Lnyrebtkbq7396 [place] [address]Dr. Yuki Diaz Calcium [Mass/Vol] 8.7 mg/dL Normal 8.5-10.1 [facility] Comment on above: Performed By: #### CMP ####[facility] ital Ceguonsdgb4703 [place] [address]Dr. Yuki Diaz Chloride [Moles/Vol] 102 mmol/L Normal 98-107 [facility] Comment on above: Performed By: #### CMP ####[facility] ital Bfvjexstgi2343 [place] [address]Dr. Yuki Diaz CO2 [Moles/Vol] 29.1 mmol/L Normal 21.0-32.0 [facility] Comment on above: Performed By: #### CMP ####[facility] ital Kyfvhojpju8705 [place] [address]Dr. Yuki Diaz Creatinine [Mass/Vol] 2.75 mg/dL Critically high 0.70-1.30 [facility] Comment on above: Performed By: #### CMP ####[facility] Jdwvsdigol1915 [place] [address]Dr. Yuki Diaz EGFR-AF BELGIAN 27 mL/min/1.73m2 Critically low >=60 [facility] Comment on above: Performed By: #### CMP ####[facility] Ejuwcvmgbg5778 [place] [address]Dr. Monsealyssa Joe EGFR-NON AF BELGIAN 22 mL/min/1.73m2 Critically low >=60 [facility] Comment on above: Performed By: #### CMP ####[facility] Ndefttrbsz1948 [place] [address]Dr. Yuki Diaz Globulin (S) [Mass/Vol] 3.7 g/dL Normal [facility] Comment on above: Performed By: #### CMP ####[facility] Vptgczdfro6920 [place] [address]Dr. Yuki Diaz Glucose [Mass/Vol] 121 mg/dL Critically high 74-106 [facility] Comment on above: Performed By: #### CMP ####[facility] ital Rneudgrhoj3885 [place] [address]Dr. Yuki Diaz Potassium [Moles/Vol] 4.8 mmol/L Normal 3.5-5.1 [facility] Comment on above: Performed By: #### CMP ####[facility] ital Qecaizzokz340[address] [place], [place] [address]Dr. Yuki Diaz Protein [Mass/Vol] 6.5 g/dL Normal 6.4-8.2 [facility] Comment on above: Performed By: #### CMP ####[facility] Ybtahkpfab0671 [place] [address]Dr. Yuki Diaz Sodium [Moles/Vol] 138 mmol/L Normal 136-145 [facility] Comment on above: Performed By: #### CMP ####[facility] ital Zgcaoionja7033 [place] [address]Dr. Yuki Diaz Urea nitrogen [Mass/Vol] 39.0 mg/dL Critically high 7.0-18.0 [facility] Comment on above: Performed By: #### CMP ####[facility] Vwgveiuvpj4634 [place] [address]Dr. Yuki Diaz Urea nitrogen/Creatin ine [Mass ratio] 14.2 mg/mg Normal [facility] Comment on above: Performed By: #### CMP ####[facility] Felmezqmjt65[address] [place], [place] [address]Dr. Yuki Diaz US KIDNEYS BLADDERon 023 US KIDNEYS BLADDER Normal [facility] XR CHEST 1 Von 10-24-2022 XR CHEST 1 V Normal [facility] CBC AUTO DIFFon 10-23-2022 BASO # 0.0 103/ul Normal 0.0-0.1 [facility] Comment on above: Performed By: #### CBC ####[facility] Kqphfauqmh7864 [place] [address]Dr. Yuki Joe Basophils/100 WBC (Bld) 0.1 % Critically low 0.2-2.0 [facility] Comment on above: Performed By: #### CBC ####[facility] Qyzshuyosv5990 [place] [address]Dr. Yuki Diaz EO # 0.1 103/ul Normal 0.0-0.7 [facility] Comment on above: Performed By: #### CBC ####[facility] Jzmoltmwih6024 [place] [address]Dr. Monsealyssa Joe Eosinophils/100 WBC (Bld) 0.4 % Critically low 0.9-7.0 [facility] Comment on above: Performed By: #### CBC ####[facility] [address]uvdudxixh[address] [place] [address]. Yuki Diaz Erythrocyte distribution width (RBC) [Ratio] 15.0 % Normal 11.0-15.0 [facility] Comment on above: Performed By: #### CBC ####[facility] Qjkcfmocdm[address] [place] [address]. Yuki Diaz Hematocrit (Bld) [Volume fraction] 29.8 % Critically low 42.0-54.0 [facility] Comment on above: Performed By: #### CBC ####[facility] Wxlddcdecy[address] [place] [address]. Yuki Diaz Hemoglobin (Bld) [Mass/Vol] 9.1 g/dL Critically low 14.0-18.0 [facility] Comment on above: Performed By: #### CBC ####[facility] Kizeuucpkt[address] [place] [address]. Yuki Diaz IG # 0.07 10e3/ul Critically high 0.00-0.03 [facility] Comment on above: Performed By: #### CBC ####[facility] Jegocjepxt[address] [place] [address]. Yuki Diaz IG % 0.5 % Normal 0.0-0.5 [facility] Comment on above: Performed By: #### CBC ####[facility] Ccalczuzyz[address] [place] [address]. Yuki Diaz LYMPH # 1.0 103/ul Critically low 1.2-3.8 [facility] Comment on above: Performed By: #### CBC ####[facility] Wlimxpdszg[address] [place] [address]. Yuki Diaz Lymphocytes/100 WBC (Bld) 7.8 % Critically low 20.5-60.0 [facility] Comment on above: Performed By: #### CBC ####[facility] Yidpvbxlqw[address] [place] [address]. Yuki Diaz MANUAL DIFF REQ NO Normal [facility] Comment on above: Performed By: #### CBC ####[facility] Dtpviqxzop7099 [place] [address]DrBebo Diaz MCH (RBC) [Entitic mass] 27.9 pg Normal 25.9-34.0 [facility] Comment on above: Performed By: #### CBC ####[facility] Gyubueckke0009 [place] [address]DrBebo Diaz MCHC (RBC) [Mass/Vol] 30.5 g/dL Normal 29.9-35.2 [facility] Comment on above: Performed By: #### CBC ####[facility] Zxruomtals540252 [address] [place], [place] [address]DrBebo Diaz MCV (RBC) [Entitic vol] 91.4 fL Normal 80.0-94.0 [facility] Comment on above: Performed By: #### CBC ####[facility] Hzjienrjjm8426[address] [place], [place] [address]DrBebo Diaz MONO # 2.1 103/ul Critically high 0.3-0.8 [facility] Comment on above: Performed By: #### CBC ####[facility] Vhmtwfqtng486[address] [place], [place] [address]DrBebo Diaz Monocytes/100 WBC (Bld) 16.0 % Critically high 1.7-12.0 [facility] Comment on above: Performed By: #### CBC ####[facility] Ffupapiqro569[address] [place], [place] [address]DrBebo Diaz NEUT # 10.1 103/ul Critically high 1.4-6.5 [facility] Comment on above: Performed By: #### CBC ####[facility] Kcuygmwipl759[address] [place], [place] [address]DrBebo Diaz Neutrophils/100 WBC (Bld) 75.2 % Critically high 43.0-75.0 [facility] Comment on above: Performed By: #### CBC ####[facility] Crlcctwnlb744052 [address] [place], [place] [address]DrBebo Diaz Platelet mean volume (Bld) [Entitic vol] 10.3 fL Normal 9.5-13.5 [facility] Comment on above: Performed By: #### CBC ####[facility] ital Xccoismbir8989 [place] [address]Dr. Yuki Diaz PLT 255 103/ul Normal 150-450 [facility] Comment on above: Performed By: #### CBC ####[facility] ital Nbpbcwlppv6285 [place] [address]DrBebo Yuki Diaz RBC 3.26 106/ul Critically low 4.70-6.10 [facility] Comment on above: Performed By: #### CBC ####[facility] Gnjaviooiq9402 [place] [address]Dr. Yuki Diaz WBC 13.4 103/ul Critically high 4.0-11.0 [facility] Comment on above: Performed By: #### CBC ####[facility] Fgkgcdngcx5825[address] [place], [place] [address]DrBebo Yuki Diaz CULTURE BLOODon 10-23-2022 Microscopic examination of blood, culture Culture Observations: NO GROWTH AT 5 DAYS. Normal [facility] Comment on above: Performed By: #### BLDCX1 ####[facility] Valqabwskg1714[address] [place], [place] [address]DrBebo Yuki Diaz Performed By: #### B LDCX2 ####[facility] Hglrnjgaun089[address] [place], [place] [address]DrBebo Yuki Diaz CULTURE URINEon 10-23-2022 CULTURE URINE Culture Observations : NO GROWTH. Normal [facility] Comment on above: Performed By: #### URCX ####[facility] Hoetetqttg819[address] [place], [place] [address]DrBebo Yuki Diaz [facility]-19 [facility] ([facility]on [facility]-05 SARS-CoV-2 (COVID-19) RNA JARVIS+probe Ql (Unsp spec) Not detected Normal NOT DETECTED [facility] Comment on above: Result Comment: When diagnostic [...] for this test is supported by the [place] of Health and Human Service's declaration that [...] longer be used). Performed By: #### C SYMONE ####[facility] Appjtfekei288552 [address] [place], [place] [address]Dr. Yuki Diaz ER URINE PROFILEon 3 Bilirubin Ql (U) Negative Normal NEGATIVE [facility] Comment on above: Performed By: #### MARCELLO CAZARES ####[facility] Vbtubexbre053252 [address] [place], [place] [address]Dr. Yuki Diaz Clarity (U) CLEAR Normal CLEAR [facility] Comment on above: Performed By: #### MARCELLO CAZARES ####[facility] Wpxcduyhla250[address] [place], [place] [address]Dr. Yuki Diza Color (U) YELLOW Normal YELLOW [facility] Comment on above: Performed By: #### MARCELLO CAZARES ####[facility] Viakvhxyzo040[address] [place], [place] [address]Dr. Yuki GTZD A micrscopic examina tion will be performed if indicated. Normal [facility] Comment on above: Performed By: #### MARCELLO CAZARES ####[facility] Wnxnazwfcn654152 [address] [place], [place] [address]Dr. Yuki Diaz Glucose Ql (U) Negative Normal NEGATIVE [facility] Comment on above: Performed By: #### HAKAN CAZARESRO ####[facility] Kctaqfiidt3600[address] [place], [place] [address]Dr. Yuki Diaz Hemoglobin Ql (U) SMALL Abnormal NEGATIVE [facility] Comment on above: Performed By: #### SAGE UMICRO ####[facility] Cwyyyytjtx8705 [place] [address]Dr. Yuki Diaz Ketones Ql (U) Negative Normal NEGATIVE [facility] Comment on above: Performed By: #### SAGE UMICRO ####[facility] Xkjnxjstad7138 [place] [address]Dr. Yuki Diaz LEUKOCYTES Negative Normal NEGATIVE [facility] Comment on above: Performed By: #### SAGE UMICRO ####[facility] Jluhjxxnin9104 [place] [address]Dr. Yuki Diaz Nitrite Ql (U) Negative Normal NEGATIVE [facility] Comment on above: Performed By: #### SAGE UMICRO ####[facility] Cfoppdesln0600[address] [place], [place] [address]Dr. Yuki Diaz pH (U) 7.0 [pH] Normal 5-9 [facility] Comment on above: Performed By: #### SAGE UMICRO ####[facility] Nuuuviuzic378[address] [place], [place] [address]Dr. Yuki Diaz Protein (U) [Mass/Vol] 30 mg/dL Abnormal NEGATIVE/ TRACE [facility] Comment on above: Performed By: #### SAGE UMICRO ####[facility] Kcgdmqizla954052 [address] [place], [place] [address]Dr. Yuki Diaz SPEC GRAVITY 1.010 Normal 1.005-<=1. 025 [facility] Comment on above: Performed By: #### SAGE UMICRO ####[facility] Lgmfqyvcwo5371 [place] [address]Dr. Yuki Diaz UR MICRO IND INDICATED Normal [facility] Comment on above: Performed By: #### SAGE UMICRO ####[facility] Hhlvfhrxsk9431 [place] [address]Dr. Yuki Diaz Urobilinogen Qn (U) 1.0 {Chidi'U}/dL Normal 0.2 - 1.0 [facility] Comment on above: Performed By: #### ERUR, UMKETANRO ####[facility] Mfpaawprpj7823[address] [place], [place] [address]Dr. Yuki Diaz INFLUENZA A AND B AGon 10-23 INFLUANEGH SEE BELOW Normal [facility] Comment on above: Result Comment: Negative for Flu A prote in angiten. Infection due to Flu A cannot be ruled out. Flu A angiten in the sample may be below the detection limit of the test. Performed By: #### I NFLUAB ####[facility] Xsfaakxslx044[address] [place], [place] [address]Dr. Yuki Diaz INFLUBNEGH SEE BELOW Normal [facility] Comment on above: Result Comment: Negative for Flu B prote in antigen. Infection due to Flu B cannot be ruled out. Flu B antigen in the sample may be below the detection limit of the test. Performed By: #### I NFLUAB ####[facility] Gqjuxbxejw81[address] [place], [place] [address]Dr. Yuki [facility] INFLUENZA A AG Negative Normal NEGATIVE SEE COMMENT [facility] Comment on above: Performed By: #### INFLUAB ####[facility] Kyrchdtgsm114[address] [place], [place] [address]Dr. Yuki [facility] INFLUENZA B AG Negative Normal NEGATIVE SEE COMMENT [facility] Comment on above: Performed By: #### INFLUAB ####[facility] Rupevmbbnx644[address] [place], [place] [address]Dr. Yuki Diaz LACTATE/LACTIC ACIDon 2022 Lactate [Moles/Vol] 1.3 mmol/L Normal 0.4-2.0 [facility] Comment on above: Performed By: #### LACT ####[facility] Tiibmickhv864252 [address] [place], [place] [address]Dr. Yuki Diaz Lactate [Moles/Vol] 1.6 mmol/L Normal 0.4-2.0 [facility] Comment on above: Performed By: #### LACT ####[facility] Rjrqcaqilo404352 [address] [place], [place] [address]Dr. Yuki [facility] Lactate [Moles/Vol] 1.5 mmol/L Normal 0.4-2.0 [facility] Comment on above: Performed By: #### LACT ####[facility] Savbwudnnf8862 [place] [address]Dr. Yuki Diaz POINT OF CARE GLUCOSEon 10-05 Glucose [Mass/Vol] 127 mg/dL Critically high 74-106 [facility] Comment on above: Performed By: #### POCGLUC ####[facility] Drgdbnlguk8079 [place] [address]Dr. Yuki Diaz Glucose [Mass/Vol] 145 mg/dL Critically high 74-106 [facility] Comment on above: Performed By: #### POCGLUC ####[facility] Eoahpxodod0200 [place] [address]Dr. Yuki Diaz PROF 14(COMP METB)on 023 Albumin [Mass/Vol] 3.4 g/dL Normal 3.4-5.0 [facility] Comment on above: Performed By: #### CMP ####[facility] Uurrytueyj1212 [place] [address]Dr. Yuki Diaz Albumin/Globulin [Mass ratio] 0.8 {ratio} Normal [facility] Comment on above: Performed By: #### CMP ####[facility] Zjmmojtffr7203 [place] [address]Dr. Yuki Diaz ALP [Catalytic activity/Vol] 100 U/L Normal 46-116 [facility] Comment on above: Performed By: #### CMP ####[facility] Whfkcvkaup9217 [place] [address]Dr. Yuki Diaz ALT [Catalytic activity/Vol] 15 U/L Critically low 16-63 [facility] Comment on above: Performed By: #### CMP ####[facility] Lmsspavcpi4388 [place] [address]Dr. Yuki Diaz Anion gap [Moles/Vol] 14.2 mmol/L Normal [facility] Comment on above: Performed By: #### CMP ####[facility] Ysolzgoofb9270 [place] [address]Dr. Yuki Diaz AST [Catalytic activity/Vol] 12 U/L Critically low 15-37 [facility] Comment on above: Performed By: #### CMP ####[facility] Wehbhubxoq4322 [place] [address]Dr. Yuki Diaz Bilirubin [Mass/Vol] 0.8 mg/dL Normal 0.2-1.0 [facility] Comment on above: Performed By: #### CMP ####[facility] ital Myklvhdvby4119 [place] [address]Dr. Yuki Diaz Calcium [Mass/Vol] 9.0 mg/dL Normal 8.5-10.1 [facility] Comment on above: Performed By: #### CMP ####[facility] ital Puggudrgrs5017 [place] [address]Dr. Yuki Diaz Chloride [Moles/Vol] 101 mmol/L Normal 98-107 [facility] Comment on above: Performed By: #### CMP ####[facility] Utavbdcovc8190 [place] [address]Dr. Yuki Diaz CO2 [Moles/Vol] 30.3 mmol/L Normal 21.0-32.0 [facility] Comment on above: Performed By: #### CMP ####[facility] ital Ukvfxfcpym7745 [place] [address]Dr. Yuki Diaz Creatinine [Mass/Vol] 2.86 mg/dL Critically high 0.70-1.30 [facility] Comment on above: Performed By: #### CMP ####[facility] Vmphywydid1513 [place] [address]Dr. Yuki Joe EGFR-AF BELGIAN 26 mL/min/1.73m2 Critically low >=60 [facility] Comment on above: Performed By: #### CMP ####[facility] Urffgxywqe9114 [place] [address]Dr. Yuki Joe EGFR-NON AF BELGIAN 21 mL/min/1.73m2 Critically low >=60 [facility] Comment on above: Performed By: #### CMP ####[facility] Armefujgel6685 [place] [address]Dr. Yuki Joe Globulin (S) [Mass/Vol] 4.1 g/dL Normal [facility] Comment on above: Performed By: #### CMP ####[facility] ital Useyvatdmv3057 [place] [address]Dr. Yuki Diaz Glucose [Mass/Vol] 153 mg/dL Critically high 74-106 [facility] Comment on above: Performed By: #### CMP ####[facility] ital Jpnwuitcny2378 [place] [address]Dr. Yuki Diaz Potassium [Moles/Vol] 4.5 mmol/L Normal 3.5-5.1 [facility] Comment on above: Performed By: #### CMP ####[facility] ital Kaeznevuej9210 [place] [address]Dr. Yuki Diaz Protein [Mass/Vol] 7.5 g/dL Normal 6.4-8.2 [facility] Comment on above: Performed By: #### CMP ####[facility] ital Ellpsmsdek1698 [place] [address]Dr. Yuki Diaz Sodium [Moles/Vol] 141 mmol/L Normal 136-145 [facility] Comment on above: Performed By: #### CMP ####[facility] ital Qtvkxrqhmb7397 [place] [address]Dr. Yuki Diaz Urea nitrogen [Mass/Vol] 40.0 mg/dL Critically high 7.0-18.0 [facility] Comment on above: Performed By: #### CMP ####[facility] ital Vhwzgwyees4904 [place] [address]Dr. Yuki Diaz Urea nitrogen/Creatin ine [Mass ratio] 14.0 mg/mg Normal [facility] Comment on above: Performed By: #### CMP ####[facility] ital Wgywnqszop9105 [place] [id number]. Yuki Joe URINE MICROSCOPIC ONLYon BACTERIA NONE SEEN Normal NONE SEEN [facility] Comment on above: Performed By: #### MARCELLO CAZARES ####[facility] Gzflmyfinq2421 [place] [phone]. Yuki Joe Bacteria identified Cx Nom (U) CX ALREADY ORDERED Normal [facility] Comment on above: Performed By: #### SAGE UMICRO ####[facility] Ywahxvlbbf6399 [place] [address]Dr. Yuki Diaz CAST NONE SEEN Normal NONE SEEN [facility] Comment on above: Performed By: #### SAGE UMICRO ####[facility] Pppyrrijsg8631 [place] [address]Dr. Yuki Diaz Crystals LM Nom (Urine sed) NONE SEEN Normal NONE SEEN [facility] Comment on above: Performed By: #### SAGE UMICRO ####[facility] Eewzhuppvh2195 [place] [address]Dr. Yuki Diaz Epithelial cells LM Ql (Urine sed) NONE SEEN Normal NONE SEEN /RARE [facility] Comment on above: Performed By: #### SAGE UMICRO ####[facility] Vgjvgugzbj9399 [place] [address]Dr. Yuki Diaz MUCOUS NONE SEEN Normal NONE SEEN [facility] Comment on above: Performed By: #### SAGE UMICRO ####[facility] Ffzeyioheh873[address] [place], [place] [address]Dr. Monsealyssa Diaz RBC 0-2 Normal 0-2 [facility] Comment on above: Performed By: #### SAGE UMICRO ####[facility] Puycqwiupa784052 [address] [place], [place] [address]Dr. Yuki Diaz WBC NONE SEEN Normal NONE SEEN [facility] Comment on above: Performed By: #### SAGE UMICRO ####[facility] Twijfvvexr973252 [address] [place], [place] [address]Dr. Yuki Diaz XR KNEE RT 4V or >on 023 XR KNEE RT 4V or > Normal [facility] XR HAND LT MIN 3Von 10-23-19 23 XR HAND LT MIN 3V Normal [facility] BNPon 10-13-2022 Natriuretic peptide B (Bld) [Mass/Vol] 1093.0 pg/mL Normal <=1,800.0 [facility] Comment on above: Performed By: #### BMP, BNP ####[facility] Wglkwnccda8962 [place] [address]Dr. Yuki Diaz PROF CHEM 8 (BAS METB)on Anion gap [Moles/Vol] 9.7 mmol/L Normal [facility] Comment on above: Performed By: #### BMP, BNP ####[facility] Bifegsbssy1630 [place] [address]Dr. Yuki Diaz Calcium [Mass/Vol] 8.6 mg/dL Normal 8.5-10.1 [facility] Comment on above: Performed By: #### BMP, BNP ####[facility] Kongrsifov212[address] [place], [place] [address]Dr. Yuki Diaz Chloride [Moles/Vol] 105 mmol/L Normal 98-107 [facility] Comment on above: Performed By: #### BMP, BNP ####[facility] Dgbzmbszhy094[address] [place], [place] [address]Dr. Yuki Diaz CO2 [Moles/Vol] 31.1 mmol/L Normal 21.0-32.0 [facility] Comment on above: Performed By: #### BMP, BNP ####[facility] Cuxmjbbpwv3945[address] [place], [place] [address]Dr. Yuki Diaz Creatinine [Mass/Vol] 2.46 mg/dL Critically high 0.70-1.30 [facility] Comment on above: Performed By: #### BMP, BNP ####[facility] Ulbskgamck812852 [address] [place], [place] [address]Dr. Yuki Diaz EGFR-AF BELGIAN 31 mL/min/1.73m2 Critically low >=60 [facility] Comment on above: Performed By: #### BMP, BNP ####[facility] Iywgogubad770[address] [place], [place] [address]Dr. Yuki Diaz EGFR-NON AF BELGIAN 25 mL/min/1.73m2 Critically low >=60 [facility] Comment on above: Performed By: #### BMP, BNP ####[facility] Jchbncqaov798152 [address] [place], [place] [address]Dr. Yuki Diaz Glucose [Mass/Vol] 155 mg/dL Critically high 74-106 [facility] Comment on above: Performed By: #### BMP, BNP ####[facility] Tcsiupyvin4418 [place], [place] [address]Ri. Yuki Diaz Potassium [Moles/Vol] 3.8 mmol/L Normal 3.5-5.1 [facility] Comment on above: Performed By: #### BMP, BNP ####[facility] Zjndshlmhl1806 [place], [place] [address]Ut. Yuki Diaz Sodium [Moles/Vol] 142 mmol/L Normal 136-145 [facility] Comment on above: Performed By: #### BMP, BNP ####[facility] Gelkssxhkl2147 [place], [place] [address]Zo. Yuki Diaz Urea nitrogen [Mass/Vol] 37.0 mg/dL Critically high 7.0-18.0 [facility] Comment on above: Performed By: #### BMP, BNP ####[facility] Pygurwlhty3834 [place] [phone]. Yuki Diaz Urea nitrogen/Creatin ine [Mass ratio] 15.0 mg/mg Normal [facility] Comment on above: Performed By: #### BMP, BNP ####[facility] Xuhxmwyknz1162 [place], [place] [address]Fh. Yuki Diaz Provider Letteron 09-20-2022 Provider Letter (Inserted Image. Alice ble to display) September 20, 2022 [address] [place] [id number] SHENG BAUER 1940 Dear Sheng , You [...] appreciate your understanding. Sincerely, [facility] [address], [place] [address] Normal [facility] BNPon 09-19-2022 Natriuretic peptide B (Bld) [Mass/Vol] 1200.0 pg/mL Normal <=1,800.0 [facility] Comment on above: Performed By: #### CMP, BNP ####[facility] Edmjtvpbrr8165 [place] [address]Dr. Yuki Diaz PROF 14(COMP METB)on 023 Albumin [Mass/Vol] 3.2 g/dL Critically low 3.4-5.0 [facility] Comment on above: Performed By: #### CMP, BNP ####[facility] Qeieovrzxo0382 [place] [address]Dr. Yuki Diaz Albumin/Globulin [Mass ratio] 0.8 {ratio} Normal [facility] Comment on above: Performed By: #### CMP, BNP ####[facility] Nghqunxlsx159[address] [place], [place] [address]Dr. Yuki Diaz ALP [Catalytic activity/Vol] 93 U/L Normal 46-116 [facility] Comment on above: Performed By: #### CMP, BNP ####[facility] Hclhppzcdi199352 [address] [place], [place] [address]Dr. Yuki Diaz ALT [Catalytic activity/Vol] 16 U/L Normal 16-63 [facility] Comment on above: Performed By: #### CMP, BNP ####[facility] Ltvvhxhbrh7437[address] [place], [place] [address]Dr. Yuki Diaz Anion gap [Moles/Vol] 13.6 mmol/L Normal [facility] Comment on above: Performed By: #### CMP, BNP ####[facility] Oqokzuspnc088352 [address] [place], [place] [address]Dr. Yuki Diaz AST [Catalytic activity/Vol] 13 U/L Critically low 15-37 [facility] Comment on above: Performed By: #### CMP, BNP ####[facility] Hbjrihegrx7039[address] [place], [place] [address]Dr. Yuki Diaz Bilirubin [Mass/Vol] 0.5 mg/dL Normal 0.2-1.0 [facility] Comment on above: Performed By: #### CMP, BNP ####[facility] Sixlbelwmx9372 [place] [address]Dr. Yuki Diaz Calcium [Mass/Vol] 8.9 mg/dL Normal 8.5-10.1 [facility] Comment on above: Performed By: #### CMP, BNP ####[facility] Svaonluzog4600 [place] [address]Dr. Yuki Diaz Chloride [Moles/Vol] 107 mmol/L Normal 98-107 [facility] Comment on above: Performed By: #### CMP, BNP ####[facility] Vkeplmpfsv0059 [place] [address]Dr. Yuki Diaz CO2 [Moles/Vol] 28.7 mmol/L Normal 21.0-32.0 [facility] Comment on above: Performed By: #### CMP, BNP ####[facility] Ievngmlwkq738152 [address] [place], [place] [address]Dr. Yuki Diaz Creatinine [Mass/Vol] 2.61 mg/dL Critically high 0.70-1.30 [facility] Comment on above: Performed By: #### CMP, BNP ####[facility] Sujwtphqvz475[address] [place], [place] [address]Dr. Yuki Diaz EGFR-AF BELGIAN 29 mL/min/1.73m2 Critically low >=60 [facility] Comment on above: Performed By: #### CMP, BNP ####[facility] Okpcbqqxik7201[address] [place], [place] [address]Dr. Yuki Diaz EGFR-NON AF BELGIAN 24 mL/min/1.73m2 Critically low >=60 [facility] Comment on above: Performed By: #### CMP, BNP ####[facility] Parhduzrfp4515[address] [place], [place] [address]Dr. Yuki Diaz Globulin (S) [Mass/Vol] 4.0 g/dL Normal [facility] Comment on above: Performed By: #### CMP, BNP ####[facility] Jcphsfqctp629[address] [place], [place] [address]Dr. Yuki Joe Glucose [Mass/Vol] 119 mg/dL Critically high 74-106 [facility] Comment on above: Performed By: #### CMP, BNP ####[facility] Xdcvwhtgza6121 [place] [address]Dr. Yuki Diaz Potassium [Moles/Vol] 4.3 mmol/L Normal 3.5-5.1 [facility] Comment on above: Performed By: #### CMP, BNP ####[facility] Anhxfawdnv9615 [place] [address]Dr. Yuki Diaz Protein [Mass/Vol] 7.2 g/dL Normal 6.4-8.2 [facility] Comment on above: Performed By: #### CMP, BNP ####[facility] Kulrdttdef8790 [place] [address]Dr. Yuki Diaz Sodium [Moles/Vol] 145 mmol/L Normal 136-145 [facility] Comment on above: Performed By: #### CMP, BNP ####[facility] Bewgtaewae5800 [place] [address]Dr. Yuki Diaz Urea nitrogen [Mass/Vol] 42.0 mg/dL Critically high 7.0-18.0 [facility] Comment on above: Performed By: #### CMP, BNP ####[facility] Wfpydupxbl3153 [place] [address]Dr. Yuki Diaz Urea nitrogen/Creatin ine [Mass ratio] 16.1 mg/mg Normal [facility] Comment on above: Performed By: #### CMP, BNP ####[facility] Euhmummhui0736[address] [place], [place] [address]Dr. Yuki Diaz Office Visiton 09-12-2022 Follow-up visit [id number] Nohelia Bauer 1940 M Date Provider Department Center 09/12/2022 OREN PEDRO [facility] Family History Problem Relation Age of Onset Coronary artery disease Mother Family Status - Relation Status Age at Mother Level of Service:34506 MS OFFICE/OUTPATIENT ESTABLISHED LOW MDM 20-29 MIN Reason for Visit and Comments: Congestive Heart Failure [127] Coronary Artery Disease [187] Hypertension [914881] Normal [facility] BNPon 09-02-2022 Natriuretic peptide B (Bld) [Mass/Vol] 1506.0 pg/mL Normal <=1,800.0 [facility] Comment on above: Performed By: #### CMP, BNP ####[facility] Rutximljmo9426 [place] [address]Dr. Yuki Diaz PROF 14(COMP METB)on 023 Albumin [Mass/Vol] 3.0 g/dL Critically low 3.4-5.0 [facility] Comment on above: Performed By: #### CMP, BNP ####[facility] Aaovwkywkr366[address] [place], [place] [address]Dr. Yuki Diaz Albumin/Globulin [Mass ratio] 0.8 {ratio} Normal [facility] Comment on above: Performed By: #### CMP, BNP ####[facility] [facility] [id number] [place], [place] [address]Dr. Yuki Diaz ALP [Catalytic activity/Vol] 89 U/L Normal 46-116 [facility] Comment on above: Performed By: #### CMP, BNP ####[facility] Zgunfcidoh[address] [place], [place] [address]Dr. Yuki Diaz ALT [Catalytic activity/Vol] 17 U/L Normal 16-63 [facility] Comment on above: Performed By: #### CMP, BNP ####[facility] Kohgybkixs437[address] [place], [place] [address]Dr. Yuki Diaz Anion gap [Moles/Vol] 12.2 mmol/L Normal [facility] Comment on above: Performed By: #### CMP, BNP ####[facility] Uhrkgovqab226[address] [place], [place] [address]Dr. Yuki Diaz AST [Catalytic activity/Vol] 13 U/L Critically low 15-37 [facility] Comment on above: Performed By: #### CMP, BNP ####[facility] Ykngrusvxp269[address] [place], [place] [address]Dr. Yuki Diaz Bilirubin [Mass/Vol] 0.4 mg/dL Normal 0.2-1.0 [facility] Comment on above: Performed By: #### CMP, BNP ####[facility] Wcuqqlqxuh802[address] [place], [place] [address]Dr. Yuki Diaz Calcium [Mass/Vol] 8.8 mg/dL Normal 8.5-10.1 [facility] Comment on above: Performed By: #### CMP, BNP ####[facility] Hmhlibopxp9213[address] [place], [place] [address]Dr. Yuki Diaz Chloride [Moles/Vol] 104 mmol/L Normal 98-107 [facility] Comment on above: Performed By: #### CMP, BNP ####[facility] Xffxalxyoj4945[address] [place], [place] [address]Dr. Yuki Diaz CO2 [Moles/Vol] 31.4 mmol/L Normal 21.0-32.0 [facility] Comment on above: Performed By: #### CMP, BNP ####[facility] Yninmtsimt[address] [place], [place] [address]Dr. Yuki Diaz Creatinine [Mass/Vol] 2.76 mg/dL Critically high 0.70-1.30 [facility] Comment on above: Performed By: #### CMP, BNP ####[facility] Mfgidfqloj[address] [place], [place] [address]Dr. Yuki Diaz EGFR-AF BELGIAN 27 mL/min/1.73m2 Critically low >=60 [facility] Comment on above: Performed By: #### CMP, BNP ####[facility] Flyxalvxvk701[address] [place], [place] [address]Dr. Yuki Diaz EGFR-NON AF BELGIAN 22 mL/min/1.73m2 Critically low >=60 [facility] Comment on above: Performed By: #### CMP, BNP ####[facility] Zwwjcoepaa9[address] [place], [place] [address]Dr. Yuki Diaz Globulin (S) [Mass/Vol] 3.8 g/dL Normal [facility] Comment on above: Performed By: #### CMP, BNP ####[facility] Ivbofchmiw656[address] [place], [place] [address]Dr. Yuki Diaz Glucose [Mass/Vol] 200 mg/dL Critically high 74-106 [facility] Comment on above: Performed By: #### CMP, BNP ####[facility] Fdnsntakkq7724 [place] [address]Dr. Yuki Diaz Potassium [Moles/Vol] 4.6 mmol/L Normal 3.5-5.1 [facility] Comment on above: Performed By: #### CMP, BNP ####[facility] Jyrrdaceub[address] [place], [place] [address]Dr. Yuki Diaz Protein [Mass/Vol] 6.8 g/dL Normal 6.4-8.2 [facility] Comment on above: Performed By: #### CMP, BNP ####[facility] Rfophuyfya[address] [place], [place] [address]Dr. Monsealyssa Diaz Sodium [Moles/Vol] 143 mmol/L Normal 136-145 [facility] Comment on above: Performed By: #### CMP, BNP ####[facility] Dsuxztkrwd5520[address] [place], [place] [address]Dr. Yuki Diaz Urea nitrogen [Mass/Vol] 44.0 mg/dL Critically high 7.0-18.0 [facility] Comment on above: Performed By: #### CMP, BNP ####[facility] Efpnksayxd957[address] [place], [place] [address]Dr. Yuki Diaz Urea nitrogen/Creatin ine [Mass ratio] 15.9 mg/mg Normal [facility] Comment on above: Performed By: #### CMP, BNP ####[facility] Qnlclyboir[address] [place], [place] [address]Dr. Yuki Diaz ECHOCARDIO M/2D COMPLETEon 1 09-20-2021 ECHOCARDIO M/2D COMPLETE Normal [facility] Lab Reportson 06-15-2022 Lab Reports [id number]:127 Normal [facility] PROF 14(COMP METB)on 022 Albumin [Mass/Vol] 3.0 g/dL Critically low 3.4-5.0 [facility] Comment on above: Performed By: #### CMP ####[facility] Hsupkfwsob[address] [place], [place] [address]Dr. Yuki Diaz Albumin/Globulin [Mass ratio] 0.9 {ratio} Normal [facility] Comment on above: Performed By: #### CMP ####[facility] Ukreygaige1777 [place] [address]Dr. Yuki Diaz ALP [Catalytic activity/Vol] 73 U/L Normal 46-116 [facility] Comment on above: Performed By: #### CMP ####[facility] Wjpspylejs2452 [place] [address]Dr. Yuki Diaz ALT [Catalytic activity/Vol] 21 U/L Normal 16-63 [facility] Comment on above: Performed By: #### CMP ####[facility] Ukvlnvutvs9826 [place] [address]Dr. Yuki Diaz Anion gap [Moles/Vol] 8.5 mmol/L Normal [facility] Comment on above: Performed By: #### CMP ####[facility] Zaavvvafhk5782 [place] [address]Dr. Yuki Diaz AST [Catalytic activity/Vol] 11 U/L Critically low 15-37 [facility] Comment on above: Performed By: #### CMP ####[facility] Hirjzjqlrd4045 [place] [address]Dr. Yuki Diaz Bilirubin [Mass/Vol] 0.6 mg/dL Normal 0.2-1.0 [facility] Comment on above: Performed By: #### CMP ####[facility] Gwdypfkzxo2695 [place] [address]Dr. Yuki Diaz Calcium [Mass/Vol] 8.7 mg/dL Normal 8.5-10.1 [facility] Comment on above: Performed By: #### CMP ####[facility] Iraezpzngo3975 [place] [address]Dr. Yuki Diaz Chloride [Moles/Vol] 104 mmol/L Normal 98-107 [facility] Comment on above: Performed By: #### CMP ####[facility] Nersratnmw3125 [place] [address]Dr. Yuki Diaz CO2 [Moles/Vol] 32.7 mmol/L Critically high 21.0-32.0 [facility] Comment on above: Performed By: #### CMP ####[facility] Wsxsdtkees7394 [place] [id number]. Yuki Diaz Creatinine [Mass/Vol] 2.43 mg/dL Critically high 0.70-1.30 [facility] Comment on above: Performed By: #### CMP ####[facility] Kklwvjcsiy6474 [place] [address]Dr. Yuki Diaz EGFR-AF BELGIAN 31 mL/min/1.73m2 Critically low >=60 [facility] Comment on above: Performed By: #### CMP ####[facility] Gdkmtvorrh3149 [place] [address]Dr. Yuki Diaz EGFR-NON AF BELGIAN 26 mL/min/1.73m2 Critically low >=60 [facility] Comment on above: Performed By: #### CMP ####[facility] Iwalhlbldz1156 [place] [address]Dr. Yuki Diaz Globulin (S) [Mass/Vol] 3.4 g/dL Normal [facility] Comment on above: Performed By: #### CMP ####[facility] Ldmjzxyhwr2043 [place] [address]Dr. Yuki Diaz Glucose [Mass/Vol] 155 mg/dL Critically high 74-106 [facility] Comment on above: Performed By: #### CMP ####[facility] Skspzoewhu1337 [place] [address]Dr. Yuki Diaz Potassium [Moles/Vol] 4.2 mmol/L Normal 3.5-5.1 [facility] Comment on above: Performed By: #### CMP ####[facility] Mjfiaxahzx3997 [place] [address]Dr. Yuki Diaz Protein [Mass/Vol] 6.4 g/dL Normal 6.4-8.2 [facility] Comment on above: Performed By: #### CMP ####[facility] Yiqswxmwqa0947 [place] [address]Dr. Yuki Diaz Sodium [Moles/Vol] 141 mmol/L Normal 136-145 [facility] Comment on above: Performed By: #### CMP ####[facility] Ztjrmzdxjd6819 [place] [address]Dr. Yuki Diaz Urea nitrogen [Mass/Vol] 47.0 mg/dL Critically high 7.0-18.0 [facility] Comment on above: Performed By: #### CMP ####[facility] Loigfiwpvr1829 [place] [address]Dr. Yuki Diaz Urea nitrogen/Creatin ine [Mass ratio] 19.3 mg/mg Normal [facility] Comment on above: Performed By: #### CMP ####[facility] Nxfjufxprg4687 [place] [address]Dr. Yuki Diaz PROF 14(COMP METB)on 022 Albumin [Mass/Vol] 2.9 g/dL Critically low 3.4-5.0 [facility] Comment on above: Performed By: #### CMP ####[facility] Pibchjceyo8812 [place] [address]Dr. Yuki Diaz Albumin/Globulin [Mass ratio] 0.8 {ratio} Normal [facility] Comment on above: Performed By: #### CMP ####[facility] Yvigfqylkw7973 [place] [address]Dr. Yuki Diaz ALP [Catalytic activity/Vol] 86 U/L Normal 46-116 [facility] Comment on above: Performed By: #### CMP ####[facility] Ekbpplhynl9106 [place] [address]Dr. Yuki Diaz ALT [Catalytic activity/Vol] 27 U/L Normal 16-63 [facility] Comment on above: Performed By: #### CMP ####[facility] Kovqbckroy0990 [place] [address]Dr. Yuki Diaz Anion gap [Moles/Vol] 11.5 mmol/L Normal [facility] Comment on above: Performed By: #### CMP ####[facility] Augkpzfymj4993 [place] [address]Dr. Yuki Diaz AST [Catalytic activity/Vol] 10 U/L Critically low 15-37 [facility] Comment on above: Performed By: #### CMP ####[facility] Gcgzytrxzb7654 [place] [address]Dr. Yuki Diaz Bilirubin [Mass/Vol] 0.5 mg/dL Normal 0.2-1.0 [facility] Comment on above: Performed By: #### CMP ####[facility] Xsswvpheiz3325 [place] [address]Dr. Yuki Diaz Calcium [Mass/Vol] 8.6 mg/dL Normal 8.5-10.1 [facility] Comment on above: Performed By: #### CMP ####[facility] Crfnxgpsox6505 [place] [address]Dr. Yuki Diaz Chloride [Moles/Vol] 108 mmol/L Critically high 98-107 [facility] Comment on above: Performed By: #### CMP ####[facility] Rlkjnqzicf0432 [place] [address]Dr. Yuki Diaz CO2 [Moles/Vol] 28.0 mmol/L Normal 21.0-32.0 [facility] Comment on above: Performed By: #### CMP ####[facility] Pcsjkpsrql8717 [place] [address]Dr. Yuki Diaz Creatinine [Mass/Vol] 2.58 mg/dL Critically high 0.70-1.30 [facility] Comment on above: Performed By: #### CMP ####[facility] Aymbqicvxz5410 [place] [address]Dr. Yuki Diaz EGFR-AF BELGIAN 29 mL/min/1.73m2 Critically low >=60 [facility] Comment on above: Performed By: #### CMP ####[facility] Jfizajuzer9254 [place] [address]Dr. Yuki Diaz EGFR-NON AF BELGIAN 24 mL/min/1.73m2 Critically low >=60 [facility] Comment on above: Performed By: #### CMP ####[facility] Ukkfbmkruq1531 [place] [address]Dr. Yuki Diaz Globulin (S) [Mass/Vol] 3.5 g/dL Normal [facility] Comment on above: Performed By: #### CMP ####[facility] Gjqdgaftyu5511 [place] [id number]. Yuki Diaz Glucose [Mass/Vol] 136 mg/dL Critically high 74-106 [facility] Comment on above: Performed By: #### CMP ####[facility] Enpvgifxhy7516 [place] [phone]. Yuki Diaz Potassium [Moles/Vol] 4.5 mmol/L Normal 3.5-5.1 [facility] Comment on above: Performed By: #### CMP ####[facility] Mnpzfcrpar8742 [place] [address]Dr. Yuki Diaz Protein [Mass/Vol] 6.4 g/dL Normal 6.4-8.2 [facility] Comment on above: Performed By: #### CMP ####[facility] Akzehrcweb6254 [place] [address]Dr. Yuki Diaz Sodium [Moles/Vol] 143 mmol/L Normal 136-145 [facility] Comment on above: Performed By: #### CMP ####[facility] Vxhvlovuyf5947 [place] [address]Dr. Yuki Diaz Urea nitrogen [Mass/Vol] 48.0 mg/dL Critically high 7.0-18.0 [facility] Comment on above: Performed By: #### CMP ####[facility] Zvbsndovze5701 [place] [address]Dr. Yuki Diaz Urea nitrogen/Creatin ine [Mass ratio] 18.6 mg/mg Normal [facility] Comment on above: Performed By: #### CMP ####[facility] Pzptfqdddb8220 [place] [address]Dr. Yuki Diaz PROF 14(COMP METB)on 022 Albumin [Mass/Vol] 3.2 g/dL Critically low 3.4-5.0 [facility] Comment on above: Performed By: #### CMP ####[facility] Boovleossy0572 [place] [address]Dr. Yuki Diaz Albumin/Globulin [Mass ratio] 0.9 {ratio} Normal [facility] Comment on above: Performed By: #### CMP ####[facility] Tzztmmrzwq7608 [place] [address]Dr. Yuki Diaz ALP [Catalytic activity/Vol] 89 U/L Normal 46-116 [facility] Comment on above: Performed By: #### CMP ####[facility] Yucqvdrhig1227 [place] [address]Dr. Yuki Diaz ALT [Catalytic activity/Vol] 113 U/L Critically high 16-63 [facility] Comment on above: Performed By: #### CMP ####[facility] Jkrceablgd0618 [place] [address]Dr. Yuki Diaz Anion gap [Moles/Vol] 10.8 mmol/L Normal [facility] Comment on above: Performed By: #### CMP ####[facility] Btcnmyflso4434 [place] [address]Dr. Yuki Diaz AST [Catalytic activity/Vol] 32 U/L Normal 15-37 [facility] Comment on above: Performed By: #### CMP ####[facility] Jbfohpjnzt7585 [place] [address]Dr. Yuki Diaz Bilirubin [Mass/Vol] 0.7 mg/dL Normal 0.2-1.0 [facility] Comment on above: Performed By: #### CMP ####[facility] Pnezgowejx1220 [place] [address]Dr. Yuki Diaz Calcium [Mass/Vol] 8.8 mg/dL Normal 8.5-10.1 [facility] Comment on above: Performed By: #### CMP ####[facility] Vvadocrofu2037 [place] [address]Dr. Yuki Diaz Chloride [Moles/Vol] 106 mmol/L Normal 98-107 [facility] Comment on above: Performed By: #### CMP ####[facility] Ldjnuazgda1179 [place] [address]Dr. Yuki Diaz CO2 [Moles/Vol] 30.4 mmol/L Normal 21.0-32.0 [facility] Comment on above: Performed By: #### CMP ####[facility] Mshmbklhfr6522 [place] [phone]. Yuki Diaz Creatinine [Mass/Vol] 2.54 mg/dL Critically high 0.70-1.30 [facility] Comment on above: Performed By: #### CMP ####[facility] Uvkhuhhvdb8565 [place] [phone]. Yuki Diaz EGFR-AF BELGIAN 30 mL/min/1.73m2 Critically low >=60 [facility] Comment on above: Performed By: #### CMP ####[facility] Oqblwnmuws8056 [place] [address]Dr. Yuki Diaz EGFR-NON AF BELGIAN 25 mL/min/1.73m2 Critically low >=60 [facility] Comment on above: Performed By: #### CMP ####[facility] Btmrxuwhkd5725 [place] [address]Dr. Yuki Diaz Globulin (S) [Mass/Vol] 3.4 g/dL Normal [facility] Comment on above: Performed By: #### CMP ####[facility] Npqybgxxef3413 [place] [address]Dr. Yuki Diaz Glucose [Mass/Vol] 114 mg/dL Critically high 74-106 [facility] Comment on above: Performed By: #### CMP ####[facility] ital Lpetnrtxev0581 [place] [address]Dr. Yuki Diaz Potassium [Moles/Vol] 4.2 mmol/L Normal 3.5-5.1 [facility] Comment on above: Performed By: #### CMP ####[facility] Mhntznhimi1517 [place] [address]Dr. Yuki Diaz Protein [Mass/Vol] 6.6 g/dL Normal 6.4-8.2 [facility] Comment on above: Performed By: #### CMP ####[facility] Ebhqapxjco0821 [place] [address]Dr. Yuki Diaz Sodium [Moles/Vol] 143 mmol/L Normal 136-145 [facility] Comment on above: Performed By: #### CMP ####[facility] Ygrwqthxqy6085 [place] [address]Dr. Yuki Diaz Urea nitrogen [Mass/Vol] 65.0 mg/dL Critically high 7.0-18.0 [facility] Comment on above: Performed By: #### CMP ####[facility] Qullfofldd0355 [place] [address]Dr. Yuki Diaz Urea nitrogen/Creatin ine [Mass ratio] 25.6 mg/mg Normal [facility] Comment on above: Performed By: #### CMP ####[facility] Ajtdintwkb2306 [place] [address]Dr. Yuki Diaz XR HIP RT INJon 04-01-2022 XR HIP RT INJ Normal [facility] PROF 14(COMP METB)on 022 Albumin [Mass/Vol] 3.6 g/dL Normal 3.4-5.0 [facility] Comment on above: Performed By: #### CMP ####[facility] Svrmninghx6071 [place] [address]Dr. Yuki Diaz Albumin/Globulin [Mass ratio] 0.9 {ratio} Normal [facility] Comment on above: Performed By: #### CMP ####[facility] Nzznqlxgfl5595 [place] [address]Dr. Yuki Diaz ALP [Catalytic activity/Vol] 91 U/L Normal 46-116 [facility] Comment on above: Performed By: #### CMP ####[facility] Taodwthtog0073 [place] [address]Dr. Yuki Diaz ALT [Catalytic activity/Vol] 19 U/L Normal 16-63 [facility] Comment on above: Performed By: #### CMP ####[facility] Ohndcaftdw9240 [place] [address]Dr. Yuki Diaz Anion gap [Moles/Vol] 12.3 mmol/L Normal [facility] Comment on above: Performed By: #### CMP ####[facility] Zhqrnlcpai7447 [place] [address]Dr. Yuki Diaz AST [Catalytic activity/Vol] 14 U/L Critically low 15-37 [facility] Comment on above: Performed By: #### CMP ####[facility] Biuzydpsgf6007 [place] [phone]. Yuki Diaz Bilirubin [Mass/Vol] 0.7 mg/dL Normal 0.2-1.0 [facility] Comment on above: Performed By: #### CMP ####[facility] Vnmibnkevx9226 [place] [phone]. Yuki Diaz Calcium [Mass/Vol] 8.9 mg/dL Normal 8.5-10.1 [facility] Comment on above: Performed By: #### CMP ####[facility] Yykptzldvo9896 [place] [address]Dr. Yuki Diaz Chloride [Moles/Vol] 102 mmol/L Normal 98-107 [facility] Comment on above: Performed By: #### CMP ####[facility] Dthwfwbdmt3749 [place] [address]Dr. Yuki Diaz CO2 [Moles/Vol] 30.4 mmol/L Normal 21.0-32.0 [facility] Comment on above: Performed By: #### CMP ####[facility] Xlvkzxbgxj4497 [place] [address]Dr. Yuki Diaz Creatinine [Mass/Vol] 2.13 mg/dL Critically high 0.70-1.30 [facility] Comment on above: Performed By: #### CMP ####[facility] Vtptqzzaxq2534 [place] [address]Dr. Yuki Joe EGFR-AF BELGIAN 37 mL/min/1.73m2 Critically low >=60 [facility] Comment on above: Performed By: #### CMP ####[facility] Hfxxzjlwui8517 [place] [phone]. Yuki Joe EGFR-NON AF BELGIAN 30 mL/min/1.73m2 Critically low >=60 [facility] Comment on above: Performed By: #### CMP ####[facility] Eapnvdyheo3022 [place] [phone]. Yuki Joe Globulin (S) [Mass/Vol] 3.9 g/dL Normal [facility] Comment on above: Performed By: #### CMP ####[facility] Mikxyjfirc5635 [place] [address]Dr. Yuki Diaz Glucose [Mass/Vol] 146 mg/dL Critically high 74-106 [facility] Comment on above: Performed By: #### CMP ####[facility] Hywlgopoyf5340 [place] [address]Dr. Yuki Diaz Potassium [Moles/Vol] 3.7 mmol/L Normal 3.5-5.1 [facility] Comment on above: Performed By: #### CMP ####[facility] ital Kpsigjskqb9547 [place] [address]Dr. Yuki Diaz Protein [Mass/Vol] 7.5 g/dL Normal 6.4-8.2 [facility] Comment on above: Performed By: #### CMP ####[facility] ital Xcxlqwvioo1229 [place] [address]Dr. Yuki Diaz Sodium [Moles/Vol] 141 mmol/L Normal 136-145 [facility] Comment on above: Performed By: #### CMP ####[facility] Wgkihxhfig6098 [place] [address]Dr. Yuki Diaz Urea nitrogen [Mass/Vol] 39.0 mg/dL Critically high 7.0-18.0 [facility] Comment on above: Performed By: #### CMP ####[facility] Isvnnzlmld8294 [place] [address]Dr. Yuki Diaz Urea nitrogen/Creatin ine [Mass ratio] 18.3 mg/mg Normal [facility] Comment on above: Performed By: #### CMP ####[facility] Gkteztpoej7391 [place] [address]DrBebo Diaz PROF 14(COMP METB)on 022 Albumin [Mass/Vol] 3.3 g/dL Critically low 3.4-5.0 [facility] Comment on above: Performed By: #### CMP ####[facility] Zoejkycipn1512 [place] [address]Dr. Yuki Diaz Albumin/Globulin [Mass ratio] 0.9 {ratio} Normal [facility] Comment on above: Performed By: #### CMP ####[facility] Ughbdtozgv8735 [place] [address]Dr. Yuki Diaz ALP [Catalytic activity/Vol] 78 U/L Normal 46-116 [facility] Comment on above: Performed By: #### CMP ####[facility] Wanjmyargt8203 [place] [address]Dr. Yuki Diaz ALT [Catalytic activity/Vol] 19 U/L Normal 16-63 [facility] Comment on above: Performed By: #### CMP ####[facility] Hftduxlqrc3575 [place] [address]Dr. Yuki Diaz Anion gap [Moles/Vol] 12.3 mmol/L Normal [facility] Comment on above: Performed By: #### CMP ####[facility] Funyacswkv9315 [place] [address]Dr. Yuki Diaz AST [Catalytic activity/Vol] 13 U/L Critically low 15-37 [facility] Comment on above: Performed By: #### CMP ####[facility] Axufiigdip7395 [place] [address]Dr. Yuki Diaz Bilirubin [Mass/Vol] 0.8 mg/dL Normal 0.2-1.0 [facility] Comment on above: Performed By: #### CMP ####[facility] Hvpxesivko7881 [place] [address]Dr. Yuki Diaz Calcium [Mass/Vol] 8.8 mg/dL Normal 8.5-10.1 [facility] Comment on above: Performed By: #### CMP ####[facility] Yeilfvelzg0490 [place] [address]Dr. Yuki Diaz Chloride [Moles/Vol] 105 mmol/L Normal 98-107 [facility] Comment on above: Performed By: #### CMP ####[facility] Czcpjrekpc4530 [place] [address]Dr. Yuki Diaz Creatinine [Mass/Vol] 2.44 mg/dL Critically high 0.70-1.30 [facility] Comment on above: Performed By: #### CMP ####[facility] Zxlycftgva7069 [place] [phone]. Yuki Diaz EGFR-AF BELGIAN 31 mL/min/1.73m2 Critically low >=60 [facility] Comment on above: Performed By: #### CMP ####[facility] Biiapakyor1800 [place] [phone]. Yuki Diaz EGFR-NON AF BELGIAN 26 mL/min/1.73m2 Critically low >=60 [facility] Comment on above: Performed By: #### CMP ####[facility] Ggcsxjnlmh6177 [place] [address]Dr. Yuki Diaz Globulin (S) [Mass/Vol] 3.7 g/dL Normal [facility] Comment on above: Performed By: #### CMP ####[facility] Phwkoozydo5535 [place] [address]Dr. Yuki Joe Glucose [Mass/Vol] 196 mg/dL Critically high 74-106 [facility] Comment on above: Performed By: #### CMP ####[facility] Berzlrsgss7836 [place] [address]Dr. Yuki Joe Potassium [Moles/Vol] 4.6 mmol/L Normal 3.5-5.1 [facility] Comment on above: Performed By: #### CMP ####[facility] Dzijugtezc5536 [place] [address]Dr. Yuki Diaz Protein [Mass/Vol] 7.0 g/dL Normal 6.4-8.2 [facility] Comment on above: Performed By: #### CMP ####[facility] Rsgwmmlcjv4039 [place] [address]Dr. Yuki Diaz Sodium [Moles/Vol] 144 mmol/L Normal 136-145 [facility] Comment on above: Performed By: #### CMP ####[facility] Vjdpobmcdp8870 [place] [address]Dr. Yuki Diaz Urea nitrogen [Mass/Vol] 44.0 mg/dL Critically high 7.0-18.0 [facility] Comment on above: Performed By: #### CMP ####[facility] ital Cigctrcelr3969 [place] [address]Dr. Yuki Diaz Urea nitrogen/Creatin ine [Mass ratio] 18.0 mg/mg Normal [facility] Comment on above: Performed By: #### CMP ####[facility] ital Ekdidkqanb3525 [place] [address]Dr. Yuki Diaz PROF 14(COMP METB)on 022 Albumin [Mass/Vol] 3.2 g/dL Critically low 3.4-5.0 [facility] Comment on above: Performed By: #### CMP ####[facility] ital Yamecnikaz7362 [place] [address]Dr. Yuki Diaz Albumin/Globulin [Mass ratio] 0.9 {ratio} Normal [facility] Comment on above: Performed By: #### CMP ####[facility] ital Ocemapxsqy8527 [place] [address]Dr. Yuki Diaz ALP [Catalytic activity/Vol] 75 U/L Normal 46-116 [facility] Comment on above: Performed By: #### CMP ####[facility] ital Ziudxfedre1896 [place] [address]Dr. Yuki Diaz ALT [Catalytic activity/Vol] 14 U/L Critically low 16-63 [facility] Comment on above: Performed By: #### CMP ####[facility] Aizmoxmmgm8703 [place] [address]Dr. Yuki Diaz Anion gap [Moles/Vol] 12.6 mmol/L Normal [facility] Comment on above: Performed By: #### CMP ####[facility] ital Kbsfngxtkp9784 [place] [address]Dr. Yuki Diaz AST [Catalytic activity/Vol] 9 U/L Critically low 15-37 [facility] Comment on above: Performed By: #### CMP ####[facility] Ebhdnvfwgb5006 [place] [address]Dr. Yuki Diaz Bilirubin [Mass/Vol] 0.7 mg/dL Normal 0.2-1.0 [facility] Comment on above: Performed By: #### CMP ####[facility] Ykvtkygomy2641 [place] [address]Dr. Yuki Diaz Calcium [Mass/Vol] 8.6 mg/dL Normal 8.5-10.1 [facility] Comment on above: Performed By: #### CMP ####[facility] Xacffozahg7938 [place] [address]Dr. Yuki Diaz Chloride [Moles/Vol] 107 mmol/L Normal 98-107 [facility] Comment on above: Performed By: #### CMP ####[facility] Ewjeaaaafq4890 [place] [address]Dr. Yuki Diaz CO2 [Moles/Vol] 28.3 mmol/L Normal 21.0-32.0 [facility] Comment on above: Performed By: #### CMP ####[facility] Fmlqeryfhc3425 [place] [address]Dr. Yuki Joe Creatinine [Mass/Vol] 2.52 mg/dL Critically high 0.70-1.30 [facility] Comment on above: Performed By: #### CMP ####[facility] Ofnidlmqhc0818 [place] [address]Dr. Yuki Diaz EGFR-AF BELGIAN 30 mL/min/1.73m2 Critically low >=60 [facility] Comment on above: Performed By: #### CMP ####[facility] Ieaqjhggit0983 [place] [address]Dr. Yuki Joe EGFR-NON AF BELGIAN 25 mL/min/1.73m2 Critically low >=60 [facility] Comment on above: Performed By: #### CMP ####[facility] Fgeprhfnzh7940 [place] [address]Dr. Yuki Joe Globulin (S) [Mass/Vol] 3.7 g/dL Normal [facility] Comment on above: Performed By: #### CMP ####[facility] Cxeucqfzek5445 [place] [address]Dr. Yuki Diaz Glucose [Mass/Vol] 152 mg/dL Critically high 74-106 [facility] Comment on above: Performed By: #### CMP ####[facility] Vevbhuzyqm9091 [place] [address]Dr. Yuki Diaz Potassium [Moles/Vol] 3.9 mmol/L Normal 3.5-5.1 [facility] Comment on above: Performed By: #### CMP ####[facility] Ftibrgzmnn6972 [place] [id number]. Yuki Diaz Protein [Mass/Vol] 6.9 g/dL Normal 6.4-8.2 [facility] Comment on above: Performed By: #### CMP ####[facility] Jfagzimheu1799 [place] [address]Dr. Yuki Diaz Sodium [Moles/Vol] 144 mmol/L Normal 136-145 [facility] Comment on above: Performed By: #### CMP ####[facility] Geuurbdkhh3253 [place] [address]Dr. Yuki Diaz Urea nitrogen [Mass/Vol] 50.0 mg/dL Critically high 7.0-18.0 [facility] Comment on above: Performed By: #### CMP ####[facility] ital Wtdtvnbnek9628 [place] [address]Dr. Yuki Diaz Urea nitrogen/Creatin ine [Mass ratio] 19.8 mg/mg Normal [facility] Comment on above: Performed By: #### CMP ####[facility] Nwkfshksot6623 [place] [address]Dr. Yuki Diaz PROF 14(COMP METB)on 022 Albumin [Mass/Vol] 3.1 g/dL Critically low 3.4-5.0 [facility] Comment on above: Performed By: #### CMP ####[facility] Qgxkywtdlo9684 [place] [address]Dr. Yuki Diaz Albumin/Globulin [Mass ratio] 0.7 {ratio} Normal [facility] Comment on above: Performed By: #### CMP ####[facility] Kjccqsujud2616 [place] [address]Dr. Yuki Diaz ALP [Catalytic activity/Vol] 101 U/L Normal 46-116 [facility] Comment on above: Performed By: #### CMP ####[facility] Twyqdietrn7652 [place] [address]Dr. Yuki Diaz ALT [Catalytic activity/Vol] 18 U/L Normal 16-63 [facility] Comment on above: Performed By: #### CMP ####[facility] Kfnsuiobvx8131 [place] [id number]. Yuki Diaz Anion gap [Moles/Vol] 11.9 mmol/L Normal [facility] Comment on above: Performed By: #### CMP ####[facility] Exrvpecojs2771 [place] [address]Dr. Yuki Diaz AST [Catalytic activity/Vol] 11 U/L Critically low 15-37 [facility] Comment on above: Performed By: #### CMP ####[facility] Arkhupsfvk2420 [place] [address]Dr. Yuki Diaz Bilirubin [Mass/Vol] 0.5 mg/dL Normal 0.2-1.0 [facility] Comment on above: Performed By: #### CMP ####[facility] Rqwdoudnnf8439 [place] [address]Dr. Yuki Diaz Calcium [Mass/Vol] 9.0 mg/dL Normal 8.5-10.1 [facility] Comment on above: Performed By: #### CMP ####[facility] Zmidhierfc9214 [place] [address]Dr. Yuki Diaz Chloride [Moles/Vol] 103 mmol/L Normal 98-107 [facility] Comment on above: Performed By: #### CMP ####[facility] Rerloyaaiw8112 [place] [id number]. Yuki Diaz CO2 [Moles/Vol] 29.8 mmol/L Normal 21.0-32.0 [facility] Comment on above: Performed By: #### CMP ####[facility] Tftzihdnbw4489 [place] [address]Dr. Yuki Joe Creatinine [Mass/Vol] 3.03 mg/dL Critically high 0.70-1.30 [facility] Comment on above: Performed By: #### CMP ####[facility] Angnnufkxs5261 [place] [address]Dr. Yuki Diaz EGFR-AF BELGIAN 24 mL/min/1.73m2 Critically low >=60 [facility] Comment on above: Performed By: #### CMP ####[facility] Bqjglbirfz7676 [place] [phone]. Yuki Diaz EGFR-NON AF BELGIAN 20 mL/min/1.73m2 Critically low >=60 [facility] Comment on above: Performed By: #### CMP ####[facility] Dlxugjkkgu2710 [place] [address]Dr. Yuki Diaz Globulin (S) [Mass/Vol] 4.4 g/dL Normal [facility] Comment on above: Performed By: #### CMP ####[facility] Nxyqlqoetn9394 [place] [address]Dr. Yuki Joe Glucose [Mass/Vol] 260 mg/dL Critically high 74-106 [facility] Comment on above: Performed By: #### CMP ####[facility] Ittjumygqv6667 [place] [address]Dr. Yuki Joe Potassium [Moles/Vol] 4.7 mmol/L Normal 3.5-5.1 [facility] Comment on above: Performed By: #### CMP ####[facility] Ssyleooslw4999 [place] [address]Dr. Yuki Diaz Protein [Mass/Vol] 7.5 g/dL Normal 6.4-8.2 [facility] Comment on above: Performed By: #### CMP ####[facility] Gibywhtvig9523 [place] [address]Dr. Yuki Diaz Sodium [Moles/Vol] 140 mmol/L Normal 136-145 [facility] Comment on above: Performed By: #### CMP ####[facility] Xiuhwgbfkw6547 [place] [address]Dr. Yuki Diaz Urea nitrogen [Mass/Vol] 50.0 mg/dL Critically high 7.0-18.0 [facility] Comment on above: Performed By: #### CMP ####[facility] Wkpguxmkbz2156 [place], [place] [address]KlBebo Diaz Urea nitrogen/Creatin ine [Mass ratio] 16.5 mg/mg Normal [facility] Comment on above: Performed By: #### CMP ####[facility] Aaprhuqtoq0356 [place], [place] [address]FvBebo Diaz Screenson 02-18-2022 Screens [id number]:[id number] Normal [facility] Ambulatory Visit Summaryon 0 02-15-2022 Ambulatory Visit Summary SHENG BAUER :1940 Visit Date:02/15/2022 Ambulatory Visit Instructions Your Diagnosis Elevated PSA BPH associated with nocturia Nocturia Tests Performed Urnls Dip Stick Auto w/o Microscopy POC 56931 Your Care Team Attending Physician - César Gordon Jr., MD Primary Care Physician - Drerick Lopez MD This Is Your Medications List [...] Follow-Up Appointments Monday 10:30 AM EST With: César Gordon Jr., MD Where: [facility] Patient Educationon 02-16-20 Patient Education Oncology Prostate-Specific Antigen Test Why [...] including vitamins, herbs, eye drops, creams, and tget-aii-jkfoapa medicines. This also includes: ? Medicines to [...] 08/26/2005 Document Revised: 07/06/2018 Document Reviewed: 04/30/2018 [employer] Patient Education ? 2019 [employer] [facility] Urology Office/Clinic Noteon 02-15-2022 Urology Office/Clinic [...] Urnls Dip Stick Auto w/o Microscopy POC 72991 2. 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 Ordered: PSA Total Nocturia (R35.1: Nocturia) Follow-up With When Contact Information Evan Ochoa MD, César Vega, URO In 6 months [facility] [address] [place] [address]- Additional Instructions: w/ psa Patient Education Prostate-Specific [...] so unsure (more content not included)... Normal [facility] Comment on above: Result Comment: Electronically Signed By : Evan Ochoa MD, César Vega\.br\Date and Time Signed: 02/15/22 10:42 EDT\.br\Electronically Co-Signed By: Gretel Bhagat\.br\Date and Time Co-Signed: 02/15/22 10:35 EDT PROF 14(COMP METB)on 022 Albumin [Mass/Vol] 3.3 g/dL Critically low 3.4-5.0 [facility] Comment on above: Performed By: #### CMP ####[facility] Gimkmvahfj9299 [place] [address]Dr. Yuki Diaz Albumin/Globulin [Mass ratio] 0.8 {ratio} Normal [facility] Comment on above: Performed By: #### CMP ####[facility] Nfspiyvics2134 [place] [address]Dr. Yuki Diaz ALP [Catalytic activity/Vol] 111 U/L Normal 46-116 [facility] Comment on above: Performed By: #### CMP ####[facility] ital Ptenljykbx7075 [place] [address]Dr. Yuki Diaz ALT [Catalytic activity/Vol] 22 U/L Normal 16-63 [facility] Comment on above: Performed By: #### CMP ####[facility] ital Qajmmlcmyf2299 [place] [address]Dr. Yuki Diaz Anion gap [Moles/Vol] 9.0 mmol/L Normal [facility] Comment on above: Performed By: #### CMP ####[facility] ital Uwgpxijelz9016 [place] [address]Dr. Yuki Diaz AST [Catalytic activity/Vol] 10 U/L Critically low 15-37 [facility] Comment on above: Performed By: #### CMP ####[facility] ital Xpmpvxqlga9922 [place] [address]Dr. Yuki Diaz Bilirubin [Mass/Vol] 1.0 mg/dL Normal 0.2-1.0 [facility] Comment on above: Performed By: #### CMP ####[facility] ital Yytyudqczd[address] [place], [place] [address]Dr. Yuki Diaz Calcium [Mass/Vol] 9.1 mg/dL Normal 8.5-10.1 [facility] Comment on above: Performed By: #### CMP ####[facility] Fbwamfkfke8427 [place] [address]Dr. Yuki Diaz Chloride [Moles/Vol] 103 mmol/L Normal 98-107 [facility] Comment on above: Performed By: #### CMP ####[facility] Rbtbaeiizo0126 [place] [address]Dr. Yuki Diaz CO2 [Moles/Vol] 32.8 mmol/L Critically high 21.0-32.0 [facility] Comment on above: Performed By: #### CMP ####[facility] Jnwbyarbea099[address] [place], [place] [address]Dr. Yuki Diaz Creatinine [Mass/Vol] 2.55 mg/dL Critically high 0.70-1.30 [facility] Comment on above: Performed By: #### CMP ####[facility] Wboogjtlbm0178 [place] [address]Dr. Yuki Diaz EGFR-AF BELGIAN 30 mL/min/1.73m2 Critically low >=60 [facility] Comment on above: Performed By: #### CMP ####[facility] Lidxuomunf5852 [place] [address]Dr. Yuki Diaz EGFR-NON AF BELGIAN 24 mL/min/1.73m2 Critically low >=60 [facility] Comment on above: Performed By: #### CMP ####[facility] Kerecgydng4426 [place] [address]Dr. Yuki Diaz Globulin (S) [Mass/Vol] 4.0 g/dL Normal [facility] Comment on above: Performed By: #### CMP ####[facility] Pgpjzouysq3342 [place] [address]Dr. Yuki Diaz Glucose [Mass/Vol] 154 mg/dL Critically high 74-106 [facility] Comment on above: Performed By: #### CMP ####[facility] Nvwiqtkzoo4768 [place] [address]Dr. Yuki Diaz Potassium [Moles/Vol] 3.8 mmol/L Normal 3.5-5.1 [facility] Comment on above: Performed By: #### CMP ####[facility] Znwhwuggrb0697 [place] [address]Dr. Yuki Diaz Protein [Mass/Vol] 7.3 g/dL Normal 6.4-8.2 [facility] Comment on above: Performed By: #### CMP ####[facility] Sjryqctwwh7402 [place] [address]Dr. Yuki Diaz Sodium [Moles/Vol] 141 mmol/L Normal 136-145 [facility] Comment on above: Performed By: #### CMP ####[facility] Ddqwutyxtm7591 [place] [address]Dr. Yuki Diaz Urea nitrogen [Mass/Vol] 35.0 mg/dL Critically high 7.0-18.0 [facility] Comment on above: Performed By: #### CMP ####[facility] ital Hhvasgcjzy3176 [place] [address]Dr. Yuki Diaz Urea nitrogen/Creatin ine [Mass ratio] 13.7 mg/mg Normal [facility] Comment on above: Performed By: #### CMP ####[facility] ital Gigtrtncth0683 [place] [address]Dr. Yuki Diaz PROF 14(COMP METB)on 022 Albumin [Mass/Vol] 2.9 g/dL Critically low 3.4-5.0 [facility] Comment on above: Performed By: #### CMP ####[facility] ital Pyefwhaymw4512 [place] [address]Dr. Yuki Diaz Albumin/Globulin [Mass ratio] 0.8 {ratio} Normal [facility] Comment on above: Performed By: #### CMP ####[facility] ital Aimwizmlmb9460 [place] [address]Dr. Yuki Diaz ALP [Catalytic activity/Vol] 96 U/L Normal 46-116 [facility] Comment on above: Performed By: #### CMP ####[facility] ital Dkogjnaewz7477 [place] [address]Dr. Yuki Diaz ALT [Catalytic activity/Vol] 23 U/L Normal 16-63 [facility] Comment on above: Performed By: #### CMP ####[facility] ital Itkvtcxktx9691 [place] [address]Dr. Yuki Diaz Anion gap [Moles/Vol] 11.6 mmol/L Normal [facility] Comment on above: Performed By: #### CMP ####[facility] ital Ohrfplemao9777 [place] [address]Dr. Yuki Diaz AST [Catalytic activity/Vol] 12 U/L Critically low 15-37 [facility] Comment on above: Performed By: #### CMP ####[facility] ital Vsfofcopbj3641 [place] [address]Dr. Yuki Diaz Bilirubin [Mass/Vol] 0.7 mg/dL Normal 0.2-1.0 [facility] Comment on above: Performed By: #### CMP ####[facility] ital Pnujephrew2955 [place] [address]Dr. Yuki Diaz Calcium [Mass/Vol] 8.7 mg/dL Normal 8.5-10.1 [facility] Comment on above: Performed By: #### CMP ####[facility] ital Ubktavlwcy6204 [place] [address]Dr. Yuki Diaz Chloride [Moles/Vol] 103 mmol/L Normal 98-107 [facility] Comment on above: Performed By: #### CMP ####[facility] ital Kfdfxvkbms2310 [place] [address]Dr. Yuki Diaz CO2 [Moles/Vol] 32.5 mmol/L Critically high 21.0-32.0 [facility] Comment on above: Performed By: #### CMP ####[facility] ital Wjugsldhqm3250 [place] [address]Dr. Yuki Joe Creatinine [Mass/Vol] 2.35 mg/dL Critically high 0.70-1.30 [facility] Comment on above: Performed By: #### CMP ####[facility] ital Rfbtbkymai715[address] [place], [place] [address]Dr. Yuki Diaz EGFR-AF BELGIAN 33 mL/min/1.73m2 Critically low >=60 [facility] Comment on above: Performed By: #### CMP ####[facility] ital Luzsgjtdde6112[address] [place], [place] [address]Dr. Yuki Joe EGFR-NON AF BELGIAN 27 mL/min/1.73m2 Critically low >=60 [facility] Comment on above: Performed By: #### CMP ####[facility] ital Amzisomjrs5778 [place] [address]Dr. Yuki Diaz Globulin (S) [Mass/Vol] 3.6 g/dL Normal [facility] Comment on above: Performed By: #### CMP ####[facility] ital Yucodmluwd3110 [place] [address]Dr. Yuki Diaz Glucose [Mass/Vol] 206 mg/dL Critically high 74-106 [facility] Comment on above: Performed By: #### CMP ####[facility] ital Fxsrtsliir7762 [place] [address]Dr. Yuki Diaz Potassium [Moles/Vol] 4.1 mmol/L Normal 3.5-5.1 [facility] Comment on above: Performed By: #### CMP ####[facility] ital Dywjqdhcxe2924[address] [place], [place] [address]Dr. uYki Diaz Protein [Mass/Vol] 6.5 g/dL Normal 6.4-8.2 [facility] Comment on above: Performed By: #### CMP ####[facility] ital Ymajguechc5775[address] [place], [place] [address]Dr. Yuki Diaz Sodium [Moles/Vol] 143 mmol/L Normal 136-145 [facility] Comment on above: Performed By: #### CMP ####[facility] ital Rzqicukvkm4938[address] [place], [place] [address]Dr. Yuki Diza Urea nitrogen [Mass/Vol] 34.0 mg/dL Critically high 7.0-18.0 [facility] Comment on above: Performed By: #### CMP ####[facility] Xwdmuvgfiu819[address] [place], [place] [address]Dr. Yuki Diaz Urea nitrogen/Creatin ine [Mass ratio] 14.5 mg/mg Normal [facility] Comment on above: Performed By: #### CMP ####[facility] ital Obfampqjol677[address] [place], [place] [address]Dr. Yuki Diaz BNPon 02-03-2022 Natriuretic peptide B (Bld) [Mass/Vol] 3216.0 pg/mL Critically high <=1,800.0 [facility] Comment on above: Result Comment: repeated Performed By: #### B ASBESTOS COVERER ####[facility] Ceqbavgbyy87[address] [place], [place] [address]Dr. Yuki Diaz PROF 14(COMP METB)on 022 Albumin [Mass/Vol] 3.0 g/dL Critically low 3.4-5.0 [facility] Comment on above: Performed By: #### CMP ####[facility] ital Bijrlhvkph0318 [place] [address]Dr. Yuki Diaz Albumin/Globulin [Mass ratio] 0.8 {ratio} Normal [facility] Comment on above: Performed By: #### CMP ####[facility] ital Uyfgsvefne8180 [place] [address]Dr. Yuki Diaz ALP [Catalytic activity/Vol] 104 U/L Normal 46-116 [facility] Comment on above: Performed By: #### CMP ####[facility] ital Ofzdfbzxon8755 [place] [address]Dr. Yuki Diaz ALT [Catalytic activity/Vol] 32 U/L Normal 16-63 [facility] Comment on above: Performed By: #### CMP ####[facility] ital Koipbspgrg5963 [place] [address]Dr. Yuki Diaz Anion gap [Moles/Vol] 9.3 mmol/L Normal [facility] Comment on above: Performed By: #### CMP ####[facility] ital Qluezvqtsr501[address] [place], [place] [address]Dr. Yuki Diaz AST [Catalytic activity/Vol] 15 U/L Normal 15-37 [facility] Comment on above: Performed By: #### CMP ####[facility] Erusuhnpbo8729 [place] [address]Dr. Monsealyssa Diaz Bilirubin [Mass/Vol] 0.9 mg/dL Normal 0.2-1.0 [facility] Comment on above: Performed By: #### CMP ####[facility] ital Vqzdptkrkt3711 [place] [address]Dr. Monsealyssa Diaz Calcium [Mass/Vol] 8.6 mg/dL Normal 8.5-10.1 [facility] Comment on above: Performed By: #### CMP ####[facility] ital Fqdomyuwlc6781 [place] [address]Dr. Yuki Diaz Chloride [Moles/Vol] 104 mmol/L Normal 98-107 [facility] Comment on above: Performed By: #### CMP ####[facility] ital Epixavzwzo911[address] [place], [place] [address]Dr. Yuki Joe CO2 [Moles/Vol] 35.9 mmol/L Critically high 21.0-32.0 [facility] Comment on above: Performed By: #### CMP ####[facility] ital Admrcwwdmp3175 [place] [address]Dr. Yuki Diaz Creatinine [Mass/Vol] 1.98 mg/dL Critically high 0.70-1.30 [facility] Comment on above: Performed By: #### CMP ####[facility] [facility] Tfujkyqnau7299 [place] [address]Dr. Yuki Joe EGFR-AF BELGIAN 40 mL/min/1.73m2 Critically low >=60 [facility] Comment on above: Performed By: #### CMP ####[facility] ital Igrnqecfpj8547 [place] [address]Dr. Monsealyssa Joe EGFR-NON AF BELGIAN 33 mL/min/1.73m2 Critically low >=60 [facility] Comment on above: Performed By: #### CMP ####[facility] ital Wkzdvdqddh4495 [place] [address]Dr. Yuki Diaz Globulin (S) [Mass/Vol] 3.9 g/dL Normal [facility] Comment on above: Performed By: #### CMP ####[facility] ital Nhwzpdvuhp8446 [place] [address]Dr. Yuki Joe Glucose [Mass/Vol] 124 mg/dL Critically high 74-106 [facility] Comment on above: Performed By: #### CMP ####[facility] ital Pbnhqatoav6550 [place] [address]Dr. Yuki Joe Potassium [Moles/Vol] 4.2 mmol/L Normal 3.5-5.1 [facility] Comment on above: Performed By: #### CMP ####[facility] ital Zeznonqpvb7142 [place] [address]Dr. Yuki Diaz Protein [Mass/Vol] 6.9 g/dL Normal 6.4-8.2 [facility] Comment on above: Performed By: #### CMP ####[facility] [facility] Taczklgghb2208 [place] [address]Dr. Yuki Diaz Sodium [Moles/Vol] 145 mmol/L Normal 136-145 [facility] Comment on above: Performed By: #### CMP ####[facility] ital Cusyjocowz0712 [place] [address]Dr. Yuki Diaz Urea nitrogen [Mass/Vol] 27.0 mg/dL Critically high 7.0-18.0 [facility] Comment on above: Performed By: #### CMP ####[facility] ital Gpzrcbkbfr6774 [place] [address]Dr. Yuki Diaz Urea nitrogen/Creatin ine [Mass ratio] 13.6 mg/mg Normal [facility] Comment on above: Performed By: #### CMP ####[facility] Mvckhitwuv8456 [place] [address]Dr. Yuki Diaz BNPon 01-27-2022 Natriuretic peptide B (Bld) [Mass/Vol] 2090.0 pg/mL Critically high <=1,800.0 [facility] Comment on above: Performed By: #### CMP, BNP ####[facility] Yynpqoyzps4573 [place] [address]Dr. Yuki Diaz CBC AUTO DIFFon 01-27-2022 BASO # 0.0 103/ul Normal 0.0-0.1 [facility] Comment on above: Performed By: #### CBC ####[facility] Kgguvckbif6204 [place] [address]Dr. Yuki Diaz Basophils/100 WBC (Bld) 0.2 % Normal 0.2-2.0 [facility] Comment on above: Performed By: #### CBC ####[facility] ital Vdfekrllyz9365 [place] [address]Dr. Yuki Diaz EO # 0.2 103/ul Normal 0.0-0.7 [facility] Comment on above: Performed By: #### CBC ####[facility] Ojkxpdfann5594 [place] [address]Dr. Yuki Diaz Eosinophils/100 WBC (Bld) 1.8 % Normal 0.9-7.0 [facility] Comment on above: Performed By: #### CBC ####[facility] ital Ovksnsczqe0754 [place] [address]Dr. Yuki Diaz Erythrocyte distribution width (RBC) [Ratio] 13.4 % Normal 11.0-15.0 [facility] Comment on above: Performed By: #### CBC ####[facility] ital Cqnerqtbsg9398 [place] [address]Dr. Yuki Diaz Hematocrit (Bld) [Volume fraction] 32.6 % Critically low 42.0-54.0 [facility] Comment on above: Performed By: #### CBC ####[facility] Bqstv[address]iv[address] [place] [address]. Yuki Diaz Hemoglobin (Bld) [Mass/Vol] 10.4 g/dL Critically low 14.0-18.0 [facility] Comment on above: Performed By: #### CBC ####[facility] Mpdmttiptm[address] [place] [address]. Yuki Diaz IG # 0.03 10e3/ul Normal 0.00-0.03 [facility] Comment on above: Performed By: #### CBC ####[facility] Syuwrkmsqv[address] [place] [address]. Yuki Diaz IG % 0.3 % Normal 0.0-0.5 [facility] Comment on above: Performed By: #### CBC ####[facility] Czaeicpfhe0034[address] [place], [place] [address]Dr. Yuki Diaz LYMPH # 1.2 103/ul Normal 1.2-3.8 [facility] Comment on above: Performed By: #### CBC ####[facility] Utqjgliahc4685 [place] [address]Dr. Yuki Diaz Lymphocytes/100 WBC (Bld) 13.8 % Critically low 20.5-60.0 [facility] Comment on above: Performed By: #### CBC ####[facility] Acyavcjksj266[address] [place], [place] [address]Dr. Yuki Diaz MANUAL DIFF REQ NO Normal [facility] Comment on above: Performed By: #### CBC ####[facility] Znenthvopj5991 [place] [address]Dr. Yuki Diaz MCH (RBC) [Entitic mass] 31.9 pg Normal 25.9-34.0 [facility] Comment on above: Performed By: #### CBC ####[facility] ital Crxxvstqjd8454 [place] [address]Dr. Yuki Diaz MCHC (RBC) [Mass/Vol] 31.9 g/dL Normal 29.9-35.2 [facility] Comment on above: Performed By: #### CBC ####[facility] Qqcozvmgli1830 [place] [address]Dr. Monsealyssa Diaz MCV (RBC) [Entitic vol] 100.0 fL Critically high 80.0-94.0 [facility] Comment on above: Performed By: #### CBC ####[facility] Zdmmstrcow28[address] [place], [place] [address]Dr. Yuki Diaz MONO # 0.9 103/ul Critically high 0.3-0.8 [facility] Comment on above: Performed By: #### CBC ####[facility] Dnhwmurfnb5836 [place] [address]Dr. Monsealyssa Diaz Monocytes/100 WBC (Bld) 10.1 % Normal 1.7-12.0 [facility] Comment on above: Performed By: #### CBC ####[facility] Uwqdcqssmr0015 [place] [address]Dr. Yuki Diaz NEUT # 6.6 103/ul Critically high 1.4-6.5 [facility] Comment on above: Performed By: #### CBC ####[facility] Ujoppnpabx5475 [place] [address]Dr. Monsealyssa Diaz Neutrophils/100 WBC (Bld) 73.8 % Normal 43.0-75.0 [facility] Comment on above: Performed By: #### CBC ####[facility] Wwohutmqko8220[address] [place], [place] [address]Dr. Yuki Diaz Platelet mean volume (Bld) [Entitic vol] 10.3 fL Normal 9.5-13.5 [facility] Comment on above: Performed By: #### CBC ####[facility] ital Bjzzyxvpvf5991 [place] [address]Dr. Yuki Diaz PLT 196 103/ul Normal 150-450 [facility] Comment on above: Performed By: #### CBC ####[facility] ital Vxmdpzyisi6281 [place] [id number]. Monsealyssa Diaz RBC 3.26 106/ul Critically low 4.70-6.10 [facility] Comment on above: Performed By: #### CBC ####[facility] ital Ffcjlbyhhr7890 [place] [phone]. Monsealyssa Joe WBC 9.0 103/ul Normal 4.0-11.0 [facility] Comment on above: Performed By: #### CBC ####[facility] ital Buryrwfaqn0134 [place] [address]Dr. Yuki Diaz POINT OF CARE GLUCOSEon 01-06 Glucose [Mass/Vol] 155 mg/dL Critically high 74-106 [facility] Comment on above: Performed By: #### POCGLUC ####[facility] Bfhvuxuwpi8744 [place] [address]Dr. Yuki Diaz Glucose [Mass/Vol] 120 mg/dL Critically high 74-106 [facility] Comment on above: Performed By: #### POCGLUC ####[facility] Cjkwqvpqcm8251 [place] [address]Dr. Yuki Diaz PROF 14(COMP METB)on 022 Albumin [Mass/Vol] 2.8 g/dL Critically low 3.4-5.0 [facility] Comment on above: Performed By: #### CMP, BNP ####[facility] Duqvxsbceo2119 [place] [address]Dr. Yuki Diaz Albumin/Globulin [Mass ratio] 0.8 {ratio} Normal [facility] Comment on above: Performed By: #### CMP, BNP ####[facility] Hukuisnqkq7776 [place] [phone]. Yuki Diaz ALP [Catalytic activity/Vol] 96 U/L Normal 46-116 [facility] Comment on above: Performed By: #### CMP, BNP ####[facility] Evvsqcahyn4108 [place] [phone]. Yuki Diaz ALT [Catalytic activity/Vol] 27 U/L Normal 16-63 [facility] Comment on above: Performed By: #### CMP, BNP ####[facility] Wpgpthsmft7105 [place] [phone]. Yuki Diaz Anion gap [Moles/Vol] 8.7 mmol/L Normal [facility] Comment on above: Performed By: #### CMP, BNP ####[facility] Vfzlewiqwp2077 [place] [phone]. Yuki Diaz AST [Catalytic activity/Vol] 17 U/L Normal 15-37 [facility] Comment on above: Performed By: #### CMP, BNP ####[facility] Iuzpakjear0302 [place] [address]Dr. Yuki Diaz Bilirubin [Mass/Vol] 0.8 mg/dL Normal 0.2-1.0 [facility] Comment on above: Performed By: #### CMP, BNP ####[facility] Tqamiaviac2468 [place] [address]Dr. Yuki Diaz Calcium [Mass/Vol] 8.2 mg/dL Critically low 8.5-10.1 [facility] Comment on above: Performed By: #### CMP, BNP ####[facility] Plyktgbpqt6244 [place] [address]Dr. Yuki Diaz Chloride [Moles/Vol] 104 mmol/L Normal 98-107 [facility] Comment on above: Performed By: #### CMP, BNP ####[facility] Qlyehdkjzg4673 [place] [phone]. Yuki Diaz CO2 [Moles/Vol] 37.3 mmol/L Critically high 21.0-32.0 [facility] Comment on above: Performed By: #### CMP, BNP ####[facility] Gxyfjyshpa3497 [place] [phone]. Yuki Diaz Creatinine [Mass/Vol] 1.90 mg/dL Critically high 0.70-1.30 [facility] Comment on above: Performed By: #### CMP, BNP ####[facility] Gozzkvpaqv7223 [place] [address]Dr. Yuki Diaz EGFR-AF BELGIAN 42 mL/min/1.73m2 Critically low >=60 [facility] Comment on above: Performed By: #### CMP, BNP ####[facility] Tqfgfcddbv049[address] [place], [place] [address]Dr. Yuki Diaz EGFR-NON AF BELGIAN 34 mL/min/1.73m2 Critically low >=60 [facility] Comment on above: Performed By: #### CMP, BNP ####[facility] Denytfqxff905[address] [place], [place] [address]Dr. Yuki Diaz Globulin (S) [Mass/Vol] 3.5 g/dL Normal [facility] Comment on above: Performed By: #### CMP, BNP ####[facility] Lxlnnryycr905[address] [place], [place] [address]Dr. Yuki Diaz Glucose [Mass/Vol] 44 mg/dL Critically low 74-106 [facility] Comment on above: Result Comment: Test Repeated. Critical Value Verified Performed By: #### C MP, BNP ####[facility] Welsfkocud665[address] [place], [place] [address]Dr. Yuki Diaz Potassium [Moles/Vol] 3.0 mmol/L Critically low 3.5-5.1 [facility] Comment on above: Performed By: #### CMP, BNP ####[facility] Aykdtcgdzt4360[address] [place], [place] [address]Dr. Yuki Diaz Protein [Mass/Vol] 6.3 g/dL Critically low 6.4-8.2 [facility] Comment on above: Performed By: #### CMP, BNP ####[facility] Mtxvoailyr474[address] [place], [place] [address]Dr. Yuki Diaz Sodium [Moles/Vol] 147 mmol/L Critically high 136-145 [facility] Comment on above: Performed By: #### CMP, BNP ####[facility] Wdilaaistz4512[address] [place], [place] [address]Dr. Yuki Diaz Urea nitrogen [Mass/Vol] 33.0 mg/dL Critically high 7.0-18.0 [facility] Comment on above: Performed By: #### CMP, BNP ####[facility] Mnhwsxctsh542[address] [place], [place] [address]Dr. Yuki Diaz Urea nitrogen/Creatin ine [Mass ratio] 17.4 mg/mg Normal [facility] Comment on above: Performed By: #### CMP, BNP ####[facility] Dvykcojlhv712[address] [place], [place] [address]Dr. Yuki Diaz BNPon 01-26-2022 Natriuretic peptide B (Bld) [Mass/Vol] 3997.0 pg/mL Critically high <=1,800.0 [facility] Comment on above: Performed By: #### BNP, CMP ####[facility] Qkvfkyppbb150[address] [place], [place] [address]Dr. Yuki Diaz CBC AUTO DIFFon 01-26-2022 BASO # 0.0 103/ul Normal 0.0-0.1 [facility] Comment on above: Performed By: #### CBC ####[facility] ital Hpqwnkemni523[address] [place], [place] [address]Dr. Yuki Diaz Basophils/100 WBC (Bld) 0.2 % Normal 0.2-2.0 [facility] Comment on above: Performed By: #### CBC ####[facility] ital Vufrhxkxuv155[address] [place], [place] [address]Dr. Yuki Diaz EO # 0.2 103/ul Normal 0.0-0.7 [facility] Comment on above: Performed By: #### CBC ####[facility] ital Nhnfzbgjtd1418[address] [place], [place] [address]Dr. Yuki Diaz Eosinophils/100 WBC (Bld) 1.6 % Normal 0.9-7.0 [facility] Comment on above: Performed By: #### CBC ####[facility] ital Yywuyxqkvl150[address] [place], [place] [address]Dr. Yuki Diaz Erythrocyte distribution width (RBC) [Ratio] 13.5 % Normal 11.0-15.0 [facility] Comment on above: Performed By: #### CBC ####[facility] Butiyqprsa4020 [place] [address]Dr. Yuki Diaz Hematocrit (Bld) [Volume fraction] 34.9 % Critically low 42.0-54.0 [facility] Comment on above: Performed By: #### CBC ####[facility] Zvblgqkgoz0774 [place] [address]Dr. Yuki Diaz Hemoglobin (Bld) [Mass/Vol] 11.3 g/dL Critically low 14.0-18.0 [facility] Comment on above: Performed By: #### CBC ####[facility] Lkwuipslqy4724 [place] [address]Dr. Yuki Diaz IG # 0.03 10e3/ul Normal 0.00-0.03 [facility] Comment on above: Performed By: #### CBC ####[facility] Bpmyzamlbk[address] Monsealyssa Diaz IG % 0.3 % Normal 0.0-0.5 [facility] Comment on above: Performed By: #### CBC ####[facility] Zulxpoghib[address] Yuki Diaz LYMPH # 1.5 103/ul Normal 1.2-3.8 [facility] Comment on above: Performed By: #### CBC ####[facility] Fezlgsykox1029 [place] [address]Dr. Monsealyssa Diaz Lymphocytes/100 WBC (Bld) 15.1 % Critically low 20.5-60.0 [facility] Comment on above: Performed By: #### CBC ####[facility] Jkyibrducz7808 [place] [address]Dr. Monsealyssa Diaz MANUAL DIFF REQ NO Normal [facility] Comment on above: Performed By: #### CBC ####[facility] Flwpgcestp7074 [place] [address]Dr. Yuki Diaz MCH (RBC) [Entitic mass] 32.2 pg Normal 25.9-34.0 [facility] Comment on above: Performed By: #### CBC ####[facility] ital Myizsskvoq9991 [place] [address]Dr. Yuki Joe MCHC (RBC) [Mass/Vol] 32.4 g/dL Normal 29.9-35.2 [facility] Comment on above: Performed By: #### CBC ####[facility] ital Zaqtwtpgom9934 [place] [address]Dr. Yuki Diaz MCV (RBC) [Entitic vol] 99.4 fL Critically high 80.0-94.0 [facility] Comment on above: Performed By: #### CBC ####[facility] ital Lhvbedcfnt1926 [place] [address]Dr. Yuki Diaz MONO # 1.1 103/ul Critically high 0.3-0.8 [facility] Comment on above: Performed By: #### CBC ####[facility] Clrzkhncso9843 [place] [address]Dr. Yuki Diaz Monocytes/100 WBC (Bld) 10.7 % Normal 1.7-12.0 [facility] Comment on above: Performed By: #### CBC ####[facility] Pbncbuydzt3364[address] [place], [place] [address]Dr. Yuki Diaz NEUT # 7.3 103/ul Critically high 1.4-6.5 [facility] Comment on above: Performed By: #### CBC ####[facility] Ikuqqwoknd129[address] [place], [place] [address]Dr. Yuki Diaz Neutrophils/100 WBC (Bld) 72.1 % Normal 43.0-75.0 [facility] Comment on above: Performed By: #### CBC ####[facility] ital Qobcnetozt015[address] [place], [place] [address]Dr. Yuki Diaz Platelet mean volume (Bld) [Entitic vol] 10.2 fL Normal 9.5-13.5 [facility] Comment on above: Performed By: #### CBC ####[facility] ital Gruykuedor[address] [place], [place] [address]Dr. Yuki Diaz PLT 208 103/ul Normal 150-450 [facility] Comment on above: Performed By: #### CBC ####[facility] ital Dvcwfotyax8378 [place] [phone]. Monsealyssa Joe RBC 3.51 106/ul Critically low 4.70-6.10 [facility] Comment on above: Performed By: #### CBC ####[facility] ital Ywgvcsuvpg0574 [place] [phone]. Yuki Diaz WBC 10.1 103/ul Normal 4.0-11.0 [facility] Comment on above: Performed By: #### CBC ####[facility] ital Nqwrwbxutu0217 [place] [phone]. Yuki Diaz POINT OF CARE GLUCOSEon 01-06 Glucose [Mass/Vol] 205 mg/dL Critically high 74-106 [facility] Comment on above: Performed By: #### POCGLUC ####[facility] Ngqotzqwno7010 [place] [address]Dr. Yuki Diaz Glucose [Mass/Vol] 210 mg/dL Critically high 74-106 [facility] Comment on above: Performed By: #### POCGLUC ####[facility] Ydaoejpcpg3603 [place] [address]Dr. Yuki Diaz Glucose [Mass/Vol] 160 mg/dL Critically high 74-106 [facility] Comment on above: Performed By: #### POCGLUC ####[facility] Uakmmjhnfx8003 [place] [address]Dr. Yuki Diaz PROF 14(COMP METB)on 022 Albumin [Mass/Vol] 3.0 g/dL Critically low 3.4-5.0 [facility] Comment on above: Performed By: #### BNP, CMP ####[facility] Gocdpelxsn5586 [place] [address]Dr. Yuki Diaz Albumin/Globulin [Mass ratio] 0.8 {ratio} Normal [facility] Comment on above: Performed By: #### BNP, CMP ####[facility] Hypfkqcmmn0408 [place] [address]Dr. Yuki Diaz ALP [Catalytic activity/Vol] 106 U/L Normal 46-116 [facility] Comment on above: Performed By: #### BNP, CMP ####[facility] Yerxjjmnaj3839 [place] [address]Dr. Yuki Diaz ALT [Catalytic activity/Vol] 33 U/L Normal 16-63 [facility] Comment on above: Performed By: #### BNP, CMP ####[facility] Nwueambnzv2297 [place] [address]Dr. Yuki Diaz Anion gap [Moles/Vol] 6.1 mmol/L Normal [facility] Comment on above: Performed By: #### BNP, CMP ####[facility] Enfjkdrmst1797 [place] [address]Dr. Yuki Joe AST [Catalytic activity/Vol] 20 U/L Normal 15-37 [facility] Comment on above: Performed By: #### BNP, CMP ####[facility] Ypgapnmqou3825[address] [place], [place] [address]Dr. Yuki Diaz Bilirubin [Mass/Vol] 0.8 mg/dL Normal 0.2-1.0 [facility] Comment on above: Performed By: #### BNP, CMP ####[facility] Uodxhsqsos764[address] [place], [place] [address]Dr. Yuki Joe Calcium [Mass/Vol] 8.4 mg/dL Critically low 8.5-10.1 [facility] Comment on above: Performed By: #### BNP, CMP ####[facility] Igdeqtysag543[address] [place], [place] [address]Dr. Yuki Diaz Chloride [Moles/Vol] 105 mmol/L Normal 98-107 [facility] Comment on above: Performed By: #### BNP, CMP ####[facility] Nmrgyfeedk527[address] [place], [place] [address]Dr. Yuki Diaz CO2 [Moles/Vol] 40.2 mmol/L Critically high 21.0-32.0 [facility] Comment on above: Performed By: #### BNP, CMP ####[facility] Rrobmwtdif03[address] [place], [place] [address]Dr. Yuki Diaz Creatinine [Mass/Vol] 1.88 mg/dL Critically high 0.70-1.30 [facility] Comment on above: Performed By: #### BNP, CMP ####[facility] Haotyxyujs3894 [place] [address]Dr. Yuki Diaz EGFR-AF BELGIAN 42 mL/min/1.73m2 Critically low >=60 [facility] Comment on above: Performed By: #### BNP, CMP ####[facility] Jrwcmviyyz0640 [place] [address]Dr. Yuki Diaz EGFR-NON AF BELGIAN 35 mL/min/1.73m2 Critically low >=60 [facility] Comment on above: Performed By: #### BNP, CMP ####[facility] Prsndkygzw0438 [place] [address]Dr. Yuki Joe Globulin (S) [Mass/Vol] 3.6 g/dL Normal [facility] Comment on above: Performed By: #### BNP, CMP ####[facility] Gqdhafmcmq[address] [place], [place] [address]Dr. Monsealyssa Joe Glucose [Mass/Vol] 62 mg/dL Critically low 74-106 [facility] Comment on above: Performed By: #### BNP, CMP ####[facility] Svefzftqxt408[address] [place], [place] [address]Dr. Yuki Joe Potassium [Moles/Vol] 3.3 mmol/L Critically low 3.5-5.1 [facility] Comment on above: Performed By: #### BNP, CMP ####[facility] Zpzaicqmcq79[address] [place], [place] [address]Dr. Yuki Joe Protein [Mass/Vol] 6.6 g/dL Normal 6.4-8.2 [facility] Comment on above: Performed By: #### BNP, CMP ####[facility] Rwcmumnkmx8400[address] [place], [place] [address]Dr. Monsealyssa Joe Sodium [Moles/Vol] 148 mmol/L Critically high 136-145 [facility] Comment on above: Performed By: #### BNP, CMP ####[facility] Rkdchtlkup59[address] [place], [place] [address]Dr. Monsealyssa Joe Urea nitrogen [Mass/Vol] 29.0 mg/dL Critically high 7.0-18.0 [facility] Comment on above: Performed By: #### BNP, CMP ####[facility] Wbopwylzou401[address] [place], [place] [address]Dr. Yuki Diaz Urea nitrogen/Creatin ine [Mass ratio] 15.4 mg/mg Normal [facility] Comment on above: Performed By: #### BNP, CMP ####[facility] Uhaqznbzyi467[address] [place], [place] [address]Dr. Yuki Diaz PROF CHEM 8 (BAS METB)on Anion gap [Moles/Vol] 11.1 mmol/L Normal [facility] Comment on above: Performed By: #### BMP ####[facility] ital Gtqefeglvm817[address] [place], [place] [address]Dr. Yuki Diaz Calcium [Mass/Vol] 8.1 mg/dL Critically low 8.5-10.1 [facility] Comment on above: Performed By: #### BMP ####[facility] ital Fqgqiufkpx8450[address] [place], [place] [address]Dr. Yuki Diaz Chloride [Moles/Vol] 102 mmol/L Normal 98-107 [facility] Comment on above: Performed By: #### BMP ####[facility] ital Qobufkppjl813352 [address] [place], [place] [address]Dr. Yuki Diaz CO2 [Moles/Vol] 35.4 mmol/L Critically high 21.0-32.0 [facility] Comment on above: Performed By: #### BMP ####[facility] ital Fsknauewrk089[address] [place], [place] [address]Dr. Yuki Diaz Creatinine [Mass/Vol] 1.88 mg/dL Critically high 0.70-1.30 [facility] Comment on above: Performed By: #### BMP ####[facility] ital Izyvufuhbg314[address] [place], [place] [address]Dr. Yuki Diaz EGFR-AF BELGIAN 42 mL/min/1.73m2 Critically low >=60 [facility] Comment on above: Performed By: #### BMP ####[facility] ital Oimcynzsbk948[address] [place], [place] [address]Dr. Yuki Diaz EGFR-NON AF BELGIAN 35 mL/min/1.73m2 Critically low >=60 [facility] Comment on above: Performed By: #### BMP ####[facility] ital Qbfltmklfs8597 [place] [address]Dr. Yuki Diaz Glucose [Mass/Vol] 208 mg/dL Critically high 74-106 [facility] Comment on above: Performed By: #### BMP ####[facility] ital Ipwikwzqpr9503 [place] [address]Dr. Yuki Diaz Potassium [Moles/Vol] 3.5 mmol/L Normal 3.5-5.1 [facility] Comment on above: Performed By: #### BMP ####[facility] ital Zjddxzdxta3120 [place] [address]Dr. Yuki Diaz Sodium [Moles/Vol] 145 mmol/L Normal 136-145 [facility] Comment on above: Performed By: #### BMP ####[facility] Wxrnqxkdcn4187 [place] [address]Dr. Yuki Diaz Urea nitrogen [Mass/Vol] 33.0 mg/dL Critically high 7.0-18.0 [facility] Comment on above: Performed By: #### BMP ####[facility] Iygejylrpy6486 [place] [address]Dr. Yuki Diaz Urea nitrogen/Creatin ine [Mass ratio] 17.6 mg/mg Normal [facility] Comment on above: Performed By: #### BMP ####[facility] ital Umkezxtvqv0083 [place] [address]Dr. Yuki Diaz PROTIMEon 01-26-2022 INR Coag (PPP) [Relative time] 1.15 {INR} Normal [facility] Comment on above: Performed By: #### PT ####[facility] kacie Tdepgzifdu0023 [place] [address]Dr. Yuki Diaz INR GUIDELINES SEE BELOW Normal [facility] Comment on above: Result Comment: DESIRED INR: 2.0 - 3.0 C ONDITIONS NOT LISTED BELOW 2.5 - 3.5 FOR PROSTHETIC HEART VALVE REPLACEMENT 2.5 - 3.5 RECURRENT THROMBOSIS Performed By: #### P T ####[facility] Itxdlwsjbz647[address] [place], [place] [address]Dr. Yuki Diaz PT Coag (PPP) [Time] 12.3 s Critically high 9.0-11.6 [facility] Comment on above: Performed By: #### PT ####[facility] kacie Lxhedyljhb[address] [place], [place] [address]Dr. Yuki Diaz BNPon 01-25-2022 Natriuretic peptide B (Bld) [Mass/Vol] 3414.0 pg/mL Critically high <=1,800.0 [facility] Comment on above: Performed By: #### BNP, BMP ####[facility] Macohsgkbj439[address] [place], [place] [address]Dr. Yuki Diaz CBC AUTO DIFFon 01-25-2022 BASO # 0.0 103/ul Normal 0.0-0.1 [facility] Comment on above: Performed By: #### CBC ####[facility] Aobugvulws012[address] [place], [place] [address]Dr. Yuki Diaz Basophils/100 WBC (Bld) 0.3 % Normal 0.2-2.0 [facility] Comment on above: Performed By: #### CBC ####[facility] Cuxdwdzzgp516[address] [place], [place] [address]Dr. Yuki Diaz EO # 0.2 103/ul Normal 0.0-0.7 [facility] Comment on above: Performed By: #### CBC ####[facility] Dtqhnaagyn[address] [place] [address]. Yuki Diaz Eosinophils/100 WBC (Bld) 1.9 % Normal 0.9-7.0 [facility] Comment on above: Performed By: #### CBC ####[facility] Jnzndgsstr608[address] [place], [place] [address]Dr. Yuki Diaz Erythrocyte distribution width (RBC) [Ratio] 13.2 % Normal 11.0-15.0 [facility] Comment on above: Performed By: #### CBC ####[facility] Qbbomdqnmp[address] [place], [place] [id number]. Monsealyssa Diaz Hematocrit (Bld) [Volume fraction] 33.8 % Critically low 42.0-54.0 [facility] Comment on above: Performed By: #### CBC ####[facility] Qlrnkwntkk9407 [place] [address]Dr. Monsealyssa Diaz Hemoglobin (Bld) [Mass/Vol] 10.8 g/dL Critically low 14.0-18.0 [facility] Comment on above: Performed By: #### CBC ####[facility] Krkkrcsamg4011 [place] [address]Dr. Yuki Diaz IG # 0.04 10e3/ul Critically high 0.00-0.03 [facility] Comment on above: Performed By: #### CBC ####[facility] Kglbpzxspa7864 [place] [address]Dr. Yuki Diaz IG % 0.4 % Normal 0.0-0.5 [facility] Comment on above: Performed By: #### CBC ####[facility] Aqyrhxpcby[address] Yuki Diaz LYMPH # 1.5 103/ul Normal 1.2-3.8 [facility] Comment on above: Performed By: #### CBC ####[facility] Lbumytzevs1019 [place] [address]Dr. Yuki Diaz Lymphocytes/100 WBC (Bld) 14.8 % Critically low 20.5-60.0 [facility] Comment on above: Performed By: #### CBC ####[facility] Dgpidttjmj5779 [place] [address]Dr. Yuki Diaz MANUAL DIFF REQ NO Normal [facility] Comment on above: Performed By: #### CBC ####[facility] Jxmdryyiiy0915 [place] [address]DrBebo Diaz MCH (RBC) [Entitic mass] 31.9 pg Normal 25.9-34.0 [facility] Comment on above: Performed By: #### CBC ####[facility] Qlmfdqyfer1070 [place] [address]Dr. Yuki Joe MCHC (RBC) [Mass/Vol] 32.0 g/dL Normal 29.9-35.2 [facility] Comment on above: Performed By: #### CBC ####[facility] Fgsvtpkagy6452 [place] [address]Dr. Yuki Diaz MCV (RBC) [Entitic vol] 99.7 fL Critically high 80.0-94.0 [facility] Comment on above: Performed By: #### CBC ####[facility] ital Anlmwnsllt1196 [place] [address]Dr. Yuki Joe MONO # 1.0 103/ul Critically high 0.3-0.8 [facility] Comment on above: Performed By: #### CBC ####[facility] Wugsvnzdxj1151 [place] [address]Dr. Yuki Diaz Monocytes/100 WBC (Bld) 9.8 % Normal 1.7-12.0 [facility] Comment on above: Performed By: #### CBC ####[facility] Fiubqmcrjs1321 [place] [address]Dr. Yuki Joe NEUT # 7.1 103/ul Critically high 1.4-6.5 [facility] Comment on above: Performed By: #### CBC ####[facility] Lpndjjqmbg6153 [place] [address]Dr. Yuki Joe Neutrophils/100 WBC (Bld) 72.8 % Normal 43.0-75.0 [facility] Comment on above: Performed By: #### CBC ####[facility] Ojswfgkvza4947 [place] [address]Dr. uYki oJe Platelet mean volume (Bld) [Entitic vol] 10.4 fL Normal 9.5-13.5 [facility] Comment on above: Performed By: #### CBC ####[facility] Bcbatcgkji8306 [place] [address]Dr. Monsealyssa Diaz PLT 204 103/ul Normal 150-450 [facility] Comment on above: Performed By: #### CBC ####[facility] Ytjnlcmhox3351 [place] [address]Dr. Yuki Diaz RBC 3.39 106/ul Critically low 4.70-6.10 [facility] Comment on above: Performed By: #### CBC ####[facility] Djqwsgaezx8062 [place] [address]Dr. Yuki Diaz WBC 9.8 103/ul Normal 4.0-11.0 [facility] Comment on above: Performed By: #### CBC ####[facility] Rtpdrrtodu0551 [place] [address]Dr. Yuki Diaz POINT OF CARE GLUCOSEon -09 07-2021 Glucose [Mass/Vol] 194 mg/dL Critically high 74-106 [facility] Comment on above: Performed By: #### POCGLUC ####[facility] Hbkgyinrei4045 [place] [address]Dr. Yuki Diaz Glucose [Mass/Vol] 196 mg/dL Critically high 74-106 [facility] Comment on above: Performed By: #### POCGLUC ####[facility] Jedkfvfbcm[address] [place], [place] [address]Dr. Yuki Diaz Glucose [Mass/Vol] 253 mg/dL Critically high 74-106 [facility] Comment on above: Performed By: #### POCGLUC ####[facility] Anzunttwfa6772 [place] [address]Dr. Yuki Diaz Glucose [Mass/Vol] 106 mg/dL Normal 74-106 [facility] Comment on above: Performed By: #### POCGLUC ####[facility] Coypjkggzy7[address] [place], [place] [address]Dr. Yuki Diaz POTASSIUMon 01-25-2022 Potassium [Moles/Vol] 3.4 mmol/L Critically low 3.5-5.1 [facility] Comment on above: Performed By: #### K ####[facility] al Eqcjboeiaq7670 [place] [address]Dr. Yuki Diaz PROF CHEM 8 (BAS METB)on Anion gap [Moles/Vol] 9.0 mmol/L Normal [facility] Comment on above: Performed By: #### BMP ####[facility] ital Jxwfygbova3662 [place] [address]Dr. Yuki Diaz Calcium [Mass/Vol] 8.3 mg/dL Critically low 8.5-10.1 [facility] Comment on above: Performed By: #### BMP ####[facility] ital Iaphstcque8701 [place] [address]Dr. uYki Diaz Chloride [Moles/Vol] 103 mmol/L Normal 98-107 [facility] Comment on above: Performed By: #### BMP ####[facility] ital Sozqlgkzil7804 [place] [address]Dr. Yuki Diaz CO2 [Moles/Vol] 35.9 mmol/L Critically high 21.0-32.0 [facility] Comment on above: Performed By: #### BMP ####[facility] Fhpjdxdehf4557 [place] [address]Dr. Yuki Diaz Creatinine [Mass/Vol] 1.94 mg/dL Critically high 0.70-1.30 [facility] Comment on above: Performed By: #### BMP ####[facility] Dbwqeyiagf2054 [place] [address]Dr. Yuki Diaz EGFR-AF BELGIAN 41 mL/min/1.73m2 Critically low >=60 [facility] Comment on above: Performed By: #### BMP ####[facility] Cbaswlasld4167 [place] [address]Dr. Yuki Diaz EGFR-NON AF BELGIAN 34 mL/min/1.73m2 Critically low >=60 [facility] Comment on above: Performed By: #### BMP ####[facility] ital Snpcyosgmj7943 [place] [address]Dr. Yuki Diaz Glucose [Mass/Vol] 181 mg/dL Critically high 74-106 [facility] Comment on above: Performed By: #### BMP ####[facility] Ibzgzieucz7989 [place] [address]Dr. Yuki Diaz Potassium [Moles/Vol] 2.9 mmol/L Critically low 3.5-5.1 [facility] Comment on above: Result Comment: TEST REPEATED CRITICAL V ALUE VERIFIED Performed By: #### B MP ####[facility] Umwzliyuiw4052 [place] [address]Dr. Yuki Diaz Sodium [Moles/Vol] 145 mmol/L Normal 136-145 [facility] Comment on above: Performed By: #### BMP ####[facility] ital Siamvlskgo2584 [place] [address]Dr. Yuki Diaz Urea nitrogen [Mass/Vol] 30.0 mg/dL Critically high 7.0-18.0 [facility] Comment on above: Performed By: #### BMP ####[facility] ital Wdqirzyxym128[address] [place], [place] [address]Dr. Yuki Joe Urea nitrogen/Creatin ine [Mass ratio] 15.5 mg/mg Normal [facility] Comment on above: Performed By: #### BMP ####[facility] ital Nrpyioiwle016[address] [place], [place] [address]Dr. Yuki Joe Anion gap [Moles/Vol] 9.0 mmol/L Normal [facility] Comment on above: Performed By: #### BNP, BMP ####[facility] Vdyyznkktv18[address] [place], [place] [address]Dr. Yuki Joe Calcium [Mass/Vol] 8.3 mg/dL Critically low 8.5-10.1 [facility] Comment on above: Performed By: #### BNP, BMP ####[facility] Ayhreyrjzy[address] [place], [place] [address]Dr. Yuki Joe Chloride [Moles/Vol] 104 mmol/L Normal 98-107 [facility] Comment on above: Performed By: #### BNP, BMP ####[facility] Iqwvnfbgae6386 [place] [address]Dr. Yuki Diaz CO2 [Moles/Vol] 37.0 mmol/L Critically high 21.0-32.0 [facility] Comment on above: Performed By: #### BNP, BMP ####[facility] Vixdutntir014[address] [place], [place] [address]Dr. Yuki Diaz Creatinine [Mass/Vol] 2.03 mg/dL Critically high 0.70-1.30 [facility] Comment on above: Performed By: #### BNP, BMP ####[facility] Uxuhkixwfm2787 [place] [address]Dr. Yuki Diaz EGFR-AF BELGIAN 39 mL/min/1.73m2 Critically low >=60 [facility] Comment on above: Performed By: #### BNP, BMP ####[facility] Zszbeyyrcf5722 [place] [id number]. Yuki Diaz EGFR-NON AF BELGIAN 32 mL/min/1.73m2 Critically low >=60 [facility] Comment on above: Performed By: #### BNP, BMP ####[facility] Lnmpkisedk2109 [place] [address]Dr. Monsealyssa Joe Glucose [Mass/Vol] 102 mg/dL Normal 74-106 [facility] Comment on above: Performed By: #### BNP, BMP ####[facility] Mdlicexmsy8585 [place] [address]Dr. Yuki Diaz Potassium [Moles/Vol] 3.0 mmol/L Critically low 3.5-5.1 [facility] Comment on above: Performed By: #### BNP, BMP ####[facility] Kpojijbfau[address] [place], [place] [address]Dr. Monsealyssa Joe Sodium [Moles/Vol] 147 mmol/L Critically high 136-145 [facility] Comment on above: Performed By: #### BNP, BMP ####[facility] Szaeygomry7196 [place] [address]Dr. Monsealyssa Joe Urea nitrogen [Mass/Vol] 31.0 mg/dL Critically high 7.0-18.0 [facility] Comment on above: Performed By: #### BNP, BMP ####[facility] Jinacdhzmd7961 [place] [address]Dr. Monsealyssa Joe Urea nitrogen/Creatin ine [Mass ratio] 15.3 mg/mg Normal [facility] Comment on above: Performed By: #### BNP, BMP ####[facility] Fiwbktpmdp9682 [place] [address]Dr. Monsealyssa Joe TROPONIN, HIGH SENSITIVITYon 01-25-2022 HSTROP 38.8 pg/mL Normal 4.0-76.1 [facility] Comment on above: Result Comment: CUT-OFF POINTS HAVE BEEN ESTABLISHED BASED ON THE FOURTH UNIVERSAL DEFINITIONS OF MYOCARDIALINFARCTION. THE UPPER REFERENCE LIMIT (URL) OF TROPONIN, DEFINED THE 99TH PERCENTILE OFcTnI DISTRIBUTION IN A REFERENCE POPULATION, HAS BEEN CONFIRMED THE DECISION THRESHOLDFOR MD DIAGNOSIS. Performed By: #### H STROPN ####[facility] Zthwfqntom6950 [place] [address]Dr. Yuki Diaz BNPon 01-24-2022 Natriuretic peptide B (Bld) [Mass/Vol] 3429.0 pg/mL Critically high <=1,800.0 [facility] Comment on above: Performed By: #### HSTROPN, CMADM, BNP # ###[facility] Vfsduzrqqr[address] [place], [place] [address]Dr. Yuki Diaz CARDIAC RACHEL ADMITon 022 CK [Catalytic activity/Vol] 108 U/L Normal 39-308 [facility] Comment on above: Performed By: #### HSTROPN, CMADM, BNP # ###[facility] Iyvgaiuych64[address] [place], [place] [address]Dr. Yuki Diaz CK.MB [Mass/Vol] 2.44 ng/mL Normal <=3.60 [facility] Comment on above: Performed By: #### HSTROPN, CMADM, BNP # ###[facility] Czbkduehvd007[address] [place], [place] [address]Dr. Yuki Diaz DILSHAD 177 ng/mL Critically high 16-96 [facility] Comment on above: Performed By: #### HSTROPN, CMADM, BNP # ###[facility] Wfjbprraij0934 [place] [address]Dr. Yuki Diaz CBC AUTO DIFFon 01-24-2022 BASO # 0.0 103/ul Normal 0.0-0.1 [facility] Comment on above: Performed By: #### CBC ####[facility] Wxwyicawfv040[address] [place], [place] [address]Dr. Yuki Diaz Basophils/100 WBC (Bld) 0.3 % Normal 0.2-2.0 [facility] Comment on above: Performed By: #### CBC ####[facility] ital Bahflddgsd5875 [address]Bebo Yuki Diaz EO # 0.2 103/ul Normal 0.0-0.7 [facility] Comment on above: Performed By: #### CBC ####[facility] ital Ogyudceuhu[address] Yuki Diaz Eosinophils/100 WBC (Bld) 1.7 % Normal 0.9-7.0 [facility] Comment on above: Performed By: #### CBC ####[facility] ital Syjklczwbw5216 [address] Yuki Diaz Erythrocyte distribution width (RBC) [Ratio] 13.5 % Normal 11.0-15.0 [facility] Comment on above: Performed By: #### CBC ####[facility] Tkizkcpmoz[address] Mosnealyssa Diaz Hematocrit (Bld) [Volume fraction] 33.3 % Critically low 42.0-54.0 [facility] Comment on above: Performed By: #### CBC ####[facility] Nkpvyeudmm[address] [place], [place] [address]Bebo Yuki Diaz Hemoglobin (Bld) [Mass/Vol] 10.8 g/dL Critically low 14.0-18.0 [facility] Comment on above: Performed By: #### CBC ####[facility] Lqfwlwbfkk[address] Yuki Diaz IG # 0.04 10e3/ul Critically high 0.00-0.03 [facility] Comment on above: Performed By: #### CBC ####[facility] Monimaxxso0121 [address]eb[address] Monsealyssa Diaz IG % 0.4 % Normal 0.0-0.5 [facility] Comment on above: Performed By: #### CBC ####[facility] Rpztfwiqvq[address] [place], [place] [address]Bebo Diaz LYMPH # 1.3 103/ul Normal 1.2-3.8 [facility] Comment on above: Performed By: #### CBC ####[facility] ital Wqmfwqwday6208 [place] [address]DrBebo Diaz Lymphocytes/100 WBC (Bld) 13.8 % Critically low 20.5-60.0 [facility] Comment on above: Performed By: #### CBC ####[facility] ital Zwhzzbnigl9394 [place] [address]DrBebo Diaz MANUAL DIFF REQ NO Normal [facility] Comment on above: Performed By: #### CBC ####[facility] ital Lzexcnrnva2113 [place] [address]DrBebo Diaz MCH (RBC) [Entitic mass] 32.8 pg Normal 25.9-34.0 [facility] Comment on above: Performed By: #### CBC ####[facility] Otgwrhfomd2526 [place] [address]DrBebo Diaz MCHC (RBC) [Mass/Vol] 32.4 g/dL Normal 29.9-35.2 [facility] Comment on above: Performed By: #### CBC ####[facility] Txxvrldhhh2953 [place] [address]DrBebo Diaz MCV (RBC) [Entitic vol] 101.2 fL Critically high 80.0-94.0 [facility] Comment on above: Performed By: #### CBC ####[facility] ital Qcdvstujot8609 [place] [address]Dr. Yuki Diaz MONO # 0.8 103/ul Normal 0.3-0.8 [facility] Comment on above: Performed By: #### CBC ####[facility] ital Ganiylawtm9199 [place] [address]DrBebo Diaz Monocytes/100 WBC (Bld) 8.3 % Normal 1.7-12.0 [facility] Comment on above: Performed By: #### CBC ####[facility] ital Ssgckcqkxa4748 [place] [address]DrBebo Diaz NEUT # 7.2 103/ul Critically high 1.4-6.5 [facility] Comment on above: Performed By: #### CBC ####[facility] ital Unsjawopcd9337 [place] [address]Dr. Yuki Diaz Neutrophils/100 WBC (Bld) 75.5 % Critically high 43.0-75.0 [facility] Comment on above: Performed By: #### CBC ####[facility] ital Iqrjpmwpye6261 [place] [id number]. Yuki Diaz Platelet mean volume (Bld) [Entitic vol] 10.6 fL Normal 9.5-13.5 [facility] Comment on above: Performed By: #### CBC ####[facility] ital Rcvstnlddi8241 [place] [address]Dr. Yuki Diaz PLT 215 103/ul Normal 150-450 [facility] Comment on above: Performed By: #### CBC ####[facility] Bhnwnknuft6765 [place] [address]Dr. Yuki Diaz RBC 3.29 106/ul Critically low 4.70-6.10 [facility] Comment on above: Performed By: #### CBC ####[facility] Xstthmvqpb8150 [place] [address]Dr. Yuki Diaz WBC 9.5 103/ul Normal 4.0-11.0 [facility] Comment on above: Performed By: #### CBC ####[facility] Xxktnfitox4239 [place] [address]Dr. Yuki Diaz Covid-19 PCR ([facility]on 01-06 SARS-CoV-2 (COVID-19) RNA JARVIS+probe Ql (Unsp spec) Not detected Normal NOT DETECTED [facility] Comment on above: Result Comment: When diagnostic [...] for this test is supported by the [place] of Health and Human Service's declaration that [...] longer be used). Performed By: #### [facility] ####[facility] Xqhavjolww2527 [place] [address]Dr. Yuki Diaz PROF 14(COMP METB)on 022 Albumin [Mass/Vol] 2.8 g/dL Critically low 3.4-5.0 [facility] Comment on above: Performed By: #### CMP ####[facility] Ucbkoozgir23[address] [place], [place] [address]Dr. Yuki Diaz Albumin/Globulin [Mass ratio] 0.8 {ratio} Normal [facility] Comment on above: Performed By: #### CMP ####[facility] ital Skntlhrquy535[address] [place], [place] [address]Dr. Yuki Diaz ALP [Catalytic activity/Vol] 96 U/L Normal 46-116 [facility] Comment on above: Performed By: #### CMP ####[facility] Oceusbhqpy15[address] [place], [place] [address]Dr. Yuki Diaz ALT [Catalytic activity/Vol] 32 U/L Normal 16-63 [facility] Comment on above: Performed By: #### CMP ####[facility] ital Filxdpnsqr612[address] [place], [place] [address]Dr. Yuki Diaz Anion gap [Moles/Vol] 12.6 mmol/L Normal [facility] Comment on above: Performed By: #### CMP ####[facility] Vrhwmjgrco29[address] [place], [place] [address]Dr. Yuki Diaz AST [Catalytic activity/Vol] 19 U/L Normal 15-37 [facility] Comment on above: Performed By: #### CMP ####[facility] Zogeoxkcwe3483 [place] [address]Dr. Yuki Diaz Bilirubin [Mass/Vol] 0.7 mg/dL Normal 0.2-1.0 [facility] Comment on above: Performed By: #### CMP ####[facility] Gyurnhljdo9502 [place] [address]Dr. Yuki Diaz Calcium [Mass/Vol] 8.2 mg/dL Critically low 8.5-10.1 [facility] Comment on above: Performed By: #### CMP ####[facility] Rhvukdxlnv0920 [place] [address]Dr. Yuki Diaz Chloride [Moles/Vol] 103 mmol/L Normal 98-107 [facility] Comment on above: Performed By: #### CMP ####[facility] Vlejkdovln6669 [place] [address]Dr. Yuki Diaz CO2 [Moles/Vol] 31.2 mmol/L Normal 21.0-32.0 [facility] Comment on above: Performed By: #### CMP ####[facility] Fkwkpjnjcq8130 [place] [address]Dr. Yuki Diaz Creatinine [Mass/Vol] 2.24 mg/dL Critically high 0.70-1.30 [facility] Comment on above: Performed By: #### CMP ####[facility] Ttbbztzbiy3346 [place] [address]Dr. Yuki Diaz EGFR-AF BELGIAN 34 mL/min/1.73m2 Critically low >=60 [facility] Comment on above: Performed By: #### CMP ####[facility] Zmuromzguy1997 [place] [phone]. Yuki Diaz EGFR-NON AF BELGIAN 28 mL/min/1.73m2 Critically low >=60 [facility] Comment on above: Performed By: #### CMP ####[facility] Ftxgyvhmby6712 [place] [address]Dr. Yuki Diaz Globulin (S) [Mass/Vol] 3.4 g/dL Normal [facility] Comment on above: Performed By: #### CMP ####[facility] Qzbekxzoqv5635 [place] [id number]. Yuki Diaz Glucose [Mass/Vol] 123 mg/dL Critically high 74-106 [facility] Comment on above: Performed By: #### CMP ####[facility] Ixhngqcoef8838 [place] [address]Dr. Yuki Diaz Potassium [Moles/Vol] 2.7 mmol/L Critically low 3.5-5.1 [facility] Comment on above: Performed By: #### CMP ####[facility] Lpdninmnrd4939 [place] [address]Dr. Yuki Diaz Protein [Mass/Vol] 6.2 g/dL Critically low 6.4-8.2 [facility] Comment on above: Performed By: #### CMP ####[facility] Uqguwzkllt8449 [place] [address]Dr. Yuki Diaz Sodium [Moles/Vol] 142 mmol/L Normal 136-145 [facility] Comment on above: Performed By: #### CMP ####[facility] Hdtmaajekf9965 [place] [address]Dr. Yuki Diaz Urea nitrogen [Mass/Vol] 29.0 mg/dL Critically high 7.0-18.0 [facility] Comment on above: Performed By: #### CMP ####[facility] Gxbiegumhb5166 [place] [address]Dr. Yuki Diaz Urea nitrogen/Creatin ine [Mass ratio] 12.9 mg/mg Normal [facility] Comment on above: Performed By: #### CMP ####[facility] Kwjlahybrr2285 [place] [address]Dr. Yuki Diaz TROPONIN, HIGH SENSITIVITYon 01-24-2022 HSTROP 33.1 pg/mL Normal 4.0-76.1 [facility] Comment on above: Result Comment: CUT-OFF POINTS HAVE BEEN ESTABLISHED BASED ON THE FOURTH UNIVERSAL DEFINITIONS OF MYOCARDIALINFARCTION. THE UPPER REFERENCE LIMIT (URL) OF TROPONIN, DEFINED THE 99TH PERCENTILE OFcTnI DISTRIBUTION IN A REFERENCE POPULATION, HAS BEEN CONFIRMED THE DECISION THRESHOLDFOR MD DIAGNOSIS. Performed By: #### H STROPN, CMADM, BNP ####[facility] [address] [place] [address]Dr. Yuki Diaz XR CHEST 1 Von 01-24-2022 XR CHEST 1 V Normal [facility] BNPon 01-12-2022 Natriuretic peptide B (Bld) [Mass/Vol] 2759.0 pg/mL Critically high <=1,800.0 [facility] Comment on above: Performed By: #### CMP, BNP ####[facility] Rmzvlqzylq[address] [place], [place] [address]Dr. Yuki Diaz PROF 14(COMP METB)on 022 Albumin [Mass/Vol] 2.9 g/dL Critically low 3.4-5.0 [facility] Comment on above: Performed By: #### CMP, BNP ####[facility] Zfijcobcvz94[address] [place], [place] [address]Dr. Yuki Diaz Albumin/Globulin [Mass ratio] 0.8 {ratio} Normal [facility] Comment on above: Performed By: #### CMP, BNP ####[facility] Wtifbsjodo8[address] [place], [place] [address]Dr. Yuki Diaz ALP [Catalytic activity/Vol] 100 U/L Normal 46-116 [facility] Comment on above: Performed By: #### CMP, BNP ####[facility] Tgyvxxmxmz7[address] [place], [place] [address]Dr. Yuki Diaz ALT [Catalytic activity/Vol] 43 U/L Normal 16-63 [facility] Comment on above: Performed By: #### CMP, BNP ####[facility] Otpwqybdff711[address] [place], [place] [address]Dr. Yuki Diaz Anion gap [Moles/Vol] 7.6 mmol/L Normal [facility] Comment on above: Performed By: #### CMP, BNP ####[facility] Yuwedokbkv[address] [place], [place] [address]Dr. Yuki Diaz AST [Catalytic activity/Vol] 22 U/L Normal 15-37 [facility] Comment on above: Performed By: #### CMP, BNP ####[facility] Oejubqszsf63[address] [place], [place] [address]Dr. Yuki Diaz Bilirubin [Mass/Vol] 0.8 mg/dL Normal 0.2-1.0 [facility] Comment on above: Performed By: #### CMP, BNP ####[facility] [address]suz[address] [place] [address]Dr. Yuki Diaz Calcium [Mass/Vol] 8.0 mg/dL Critically low 8.5-10.1 [facility] Comment on above: Performed By: #### CMP, BNP ####[facility] [address]ls[address] [place] [address]Dr. Yuki Diaz Chloride [Moles/Vol] 107 mmol/L Normal 98-107 [facility] Comment on above: Performed By: #### CMP, BNP ####[facility] Euymtrabhf[address] [place] [address]Dr. Yuki Diaz CO2 [Moles/Vol] 37.1 mmol/L Critically high 21.0-32.0 [facility] Comment on above: Performed By: #### CMP, BNP ####[facility] Uegvjbcmzs[address] [place], [place] [address]Dr. Yuki Diaz Creatinine [Mass/Vol] 1.94 mg/dL Critically high 0.70-1.30 [facility] Comment on above: Performed By: #### CMP, BNP ####[facility] [address]zqv[address] [place] [address]Dr. Yuki Diaz EGFR-AF BELGIAN 41 mL/min/1.73m2 Critically low >=60 [facility] Comment on above: Performed By: #### CMP, BNP ####[facility] [address]zeyxgjqmb[address] [place] [address]Dr. Yuki Diaz EGFR-NON AF BELGIAN 34 mL/min/1.73m2 Critically low >=60 [facility] Comment on above: Performed By: #### CMP, BNP ####[facility] A[address]bgdhd[address] [place] [address]Dr. Yuki Diaz Globulin (S) [Mass/Vol] 3.5 g/dL Normal [facility] Comment on above: Performed By: #### CMP, BNP ####[facility] Gverwnjgyu[address] [place] [address]Dr. Yuki Diaz Glucose [Mass/Vol] 76 mg/dL Normal 74-106 [facility] Comment on above: Performed By: #### CMP, BNP ####[facility] Zluxkaegbw168[address] [place], [place] [address]Dr. Yuki Diaz Potassium [Moles/Vol] 3.7 mmol/L Normal 3.5-5.1 [facility] Comment on above: Performed By: #### CMP, BNP ####[facility] Piywqnpezw954[address] [place], [place] [address]Dr. Yuki Diaz Protein [Mass/Vol] 6.4 g/dL Normal 6.4-8.2 [facility] Comment on above: Performed By: #### CMP, BNP ####[facility] Gdhiuoykcf[address] [place], [place] [address]Dr. Yuki Diaz Sodium [Moles/Vol] 148 mmol/L Critically high 136-145 [facility] Comment on above: Performed By: #### CMP, BNP ####[facility] Mpzlbbvquw7[address] [place], [place] [address]Dr. Yuki Diaz Urea nitrogen [Mass/Vol] 35.0 mg/dL Critically high 7.0-18.0 [facility] Comment on above: Performed By: #### CMP, BNP ####[facility] Rjmagnihfv26[address] [place], [place] [address]Dr. Yuki Diaz Urea nitrogen/Creatin ine [Mass ratio] 18.0 mg/mg Normal [facility] Comment on above: Performed By: #### CMP, BNP ####[facility] Ohjjiqvhes19[address] [place], [place] [address]Dr. Yuki Diaz BNPon 12-30-2021 Natriuretic peptide B (Bld) [Mass/Vol] 4262.0 pg/mL Critically high <=1,800.0 [facility] Comment on above: Result Comment: repeated Performed By: #### C MP, BNP ####[facility] Jevhkcvfaf950[address] [place], [place] [address]Dr. Yuki Diaz CBC AUTO DIFFon 12-30-2021 BASO # 0.0 103/ul Normal 0.0-0.1 [facility] Comment on above: Performed By: #### CBC ####[facility] [address] [place] [address]Dr. Yuki Diaz Basophils/100 WBC (Bld) 0.2 % Normal 0.2-2.0 [facility] Comment on above: Performed By: #### CBC ####[facility] ital Setoywhcub8939[address] [place], [place] [address]Dr. Yuki Diaz EO # 0.1 103/ul Normal 0.0-0.7 [facility] Comment on above: Performed By: #### CBC ####[facility] Clfguqffja430[address] [place], [place] [address]Dr. Yuki Diaz Eosinophils/100 WBC (Bld) 1.3 % Normal 0.9-7.0 [facility] Comment on above: Performed By: #### CBC ####[facility] Umzeoecjse87[address] [place], [place] [address]Dr. Yuki Diaz Erythrocyte distribution width (RBC) [Ratio] 13.9 % Normal 11.0-15.0 [facility] Comment on above: Performed By: #### CBC ####[facility] Nsyyszillj417[address] [place], [place] [address]Dr. Yuki Diaz Hematocrit (Bld) [Volume fraction] 35.6 % Critically low 42.0-54.0 [facility] Comment on above: Performed By: #### CBC ####[facility] Xsbwknbcqf565[address] [place], [place] [address]Dr. Yuki Diaz Hemoglobin (Bld) [Mass/Vol] 11.6 g/dL Critically low 14.0-18.0 [facility] Comment on above: Performed By: #### CBC ####[facility] Rmlxjkvigd7835[address] [place], [place] [address]DrBebo Diaz IG # 0.02 10e3/ul Normal 0.00-0.03 [facility] Comment on above: Performed By: #### CBC ####[facility] Diirrsdkld0017[address] [place], [place] [address]Dr. Yuki Diaz IG % 0.2 % Normal 0.0-0.5 [facility] Comment on above: Performed By: #### CBC ####[facility] ital K[address]imstbfqp[address] [place] [address]DrBebo Diaz LYMPH # 1.5 103/ul Normal 1.2-3.8 [facility] Comment on above: Performed By: #### CBC ####[facility] ital Emjjkmcmet29[address] [place] [address]DrBebo Diaz Lymphocytes/100 WBC (Bld) 17.6 % Critically low 20.5-60.0 [facility] Comment on above: Performed By: #### CBC ####[facility] [address]fyuutx[address] [place] [address]DrBebo Diaz MANUAL DIFF REQ NO Normal [facility] Comment on above: Performed By: #### CBC ####[facility] Ndnxtynzua35[address] [place] [address]DrBebo Diaz MCH (RBC) [Entitic mass] 32.3 pg Normal 25.9-34.0 [facility] Comment on above: Performed By: #### CBC ####[facility] Iugqiknwzu16[address] [place] [address]DrBebo Diaz MCHC (RBC) [Mass/Vol] 32.6 g/dL Normal 29.9-35.2 [facility] Comment on above: Performed By: #### CBC ####[facility] Gidpzwfuyr[address] [place] [address]DrBebo Diaz MCV (RBC) [Entitic vol] 99.2 fL Critically high 80.0-94.0 [facility] Comment on above: Performed By: #### CBC ####[facility] Dbppxguqym364[address] [place] [address]DrBebo Diaz MONO # 0.9 103/ul Critically high 0.3-0.8 [facility] Comment on above: Performed By: #### CBC ####[facility] [address]aw[address]exr[address] [place] [address]DrBebo Diaz Monocytes/100 WBC (Bld) 10.9 % Normal 1.7-12.0 [facility] Comment on above: Performed By: #### CBC ####[facility] ital Zdcpvcprfa350[address] [place] [address]DrBebo Yuki Diaz NEUT # 5.7 103/ul Normal 1.4-6.5 [facility] Comment on above: Performed By: #### CBC ####[facility] ital Sxpsvdudmg22[address] [place] [address]DrBebo Yuki Diaz Neutrophils/100 WBC (Bld) 69.8 % Normal 43.0-75.0 [facility] Comment on above: Performed By: #### CBC ####[facility] [address]cjxqhncd[address] [place] [address]DrBebo Diaz Platelet mean volume (Bld) [Entitic vol] 10.3 fL Normal 9.5-13.5 [facility] Comment on above: Performed By: #### CBC ####[facility] Hbeydpbcfi[address] [place] [address]Dr. Yuki Joe PLT 182 103/ul Normal 150-450 [facility] Comment on above: Performed By: #### CBC ####[facility] Pkjfcwlbsl17[address] [place] [address]DrBebo Diaz RBC 3.59 106/ul Critically low 4.70-6.10 [facility] Comment on above: Performed By: #### CBC ####[facility] Dkjdcvoqhv216[address] [place] [address]DrBebo Sheaalyssa Joe WBC 8.2 103/ul Normal 4.0-11.0 [facility] Comment on above: Performed By: #### CBC ####[facility] Pjcklubuec27[address] [place] [address]DrBebo Diaz POINT OF CARE GLUCOSEon 05-2 Glucose [Mass/Vol] 134 mg/dL Critically high 74-106 [facility] Comment on above: Performed By: #### POCGLUC ####[facility] Onbwulhufk[address] [place] [address]DrBebo Diaz PROF 14(COMP METB)on 022 Albumin [Mass/Vol] 2.9 g/dL Critically low 3.4-5.0 [facility] Comment on above: Performed By: #### CMP, BNP ####[facility] Avxdaegolf[address] [place] [address]Dr. Yuki Diaz Albumin/Globulin [Mass ratio] 0.9 {ratio} Normal [facility] Comment on above: Performed By: #### CMP, BNP ####[facility] Btuektltzp075[address] [place], [place] [address]Dr. Yuki Diaz ALP [Catalytic activity/Vol] 87 U/L Normal 46-116 [facility] Comment on above: Performed By: #### CMP, BNP ####[facility] Gcjylyuhck9[address] [place], [place] [address]Dr. Yuki Diaz ALT [Catalytic activity/Vol] 92 U/L Critically high 16-63 [facility] Comment on above: Performed By: #### CMP, BNP ####[facility] Qbttovtsio916[address] [place], [place] [address]Dr. Yuki Diaz Anion gap [Moles/Vol] 8.4 mmol/L Normal [facility] Comment on above: Performed By: #### CMP, BNP ####[facility] Afdvpuuhzk089[address] [place], [place] [address]Dr. Yuki Diaz AST [Catalytic activity/Vol] 29 U/L Normal 15-37 [facility] Comment on above: Performed By: #### CMP, BNP ####[facility] Miqmfnytdp443[address] [place], [place] [address]Dr. Yuki Diaz Bilirubin [Mass/Vol] 0.8 mg/dL Normal 0.2-1.0 [facility] Comment on above: Performed By: #### CMP, BNP ####[facility] Pujuqqukgf864[address] [place], [place] [address]Dr. Yuki Diaz Calcium [Mass/Vol] 8.3 mg/dL Critically low 8.5-10.1 [facility] Comment on above: Performed By: #### CMP, BNP ####[facility] Rclxloaskq3060[address] [place], [place] [address]Dr. Yuki Diaz Chloride [Moles/Vol] 105 mmol/L Normal 98-107 [facility] Comment on above: Performed By: #### CMP, BNP ####[facility] Qneqtogabj9388 [place] [address]Dr. Yuki Diaz CO2 [Moles/Vol] 34.1 mmol/L Critically high 21.0-32.0 [facility] Comment on above: Performed By: #### CMP, BNP ####[facility] Lfpwkygtfv3325 [place] [address]Dr. Yuki Diaz Creatinine [Mass/Vol] 1.98 mg/dL Critically high 0.70-1.30 [facility] Comment on above: Performed By: #### CMP, BNP ####[facility] Mfybdmzsjz8938[address] [place], [place] [address]Dr. Yuki Diaz EGFR-AF BELGIAN 40 mL/min/1.73m2 Critically low >=60 [facility] Comment on above: Performed By: #### CMP, BNP ####[facility] Hzesyfkqbj819[address] [place], [place] [address]Dr. Yuki Diaz EGFR-NON AF BELGIAN 33 mL/min/1.73m2 Critically low >=60 [facility] Comment on above: Performed By: #### CMP, BNP ####[facility] Ehslpdgmux494[address] [place], [place] [address]Dr. Yuki Diaz Globulin (S) [Mass/Vol] 3.4 g/dL Normal [facility] Comment on above: Performed By: #### CMP, BNP ####[facility] Qcjtkrqdyf7064 [place] [address]Dr. Yuki Diaz Glucose [Mass/Vol] 129 mg/dL Critically high 74-106 [facility] Comment on above: Performed By: #### CMP, BNP ####[facility] Zaecbjevtg867[address] [place], [place] [address]Dr. Yuki Diaz Potassium [Moles/Vol] 3.5 mmol/L Normal 3.5-5.1 [facility] Comment on above: Performed By: #### CMP, BNP ####[facility] Mtvahuwyya108[address] [place], [place] [address]Dr. Monsealyssa Diaz Protein [Mass/Vol] 6.3 g/dL Critically low 6.4-8.2 [facility] Comment on above: Performed By: #### CMP, BNP ####[facility] Ooktpozuoo7965[address] [place], [place] [address]Dr. Yuki Diaz Sodium [Moles/Vol] 144 mmol/L Normal 136-145 [facility] Comment on above: Performed By: #### CMP, BNP ####[facility] Yxgihojess5760[address] [place], [place] [address]Dr. Yuki Diaz Urea nitrogen [Mass/Vol] 37.0 mg/dL Critically high 7.0-18.0 [facility] Comment on above: Performed By: #### CMP, BNP ####[facility] Clvfzfgrur1513[address] [place], [place] [address]Dr. Yuki Diaz Urea nitrogen/Creatin ine [Mass ratio] 18.7 mg/mg Normal [facility] Comment on above: Performed By: #### CMP, BNP ####[facility] Knflhrylvg523[address] [place], [place] [address]Dr. Yuki Joe BNPon 12-29-2021 Natriuretic peptide B (Bld) [Mass/Vol] 2335.0 pg/mL Critically high <=1,800.0 [facility] Comment on above: Result Comment: repeated Performed By: #### C MP, BNP ####[facility] Zvtgebeuyx077[address] [place], [place] [address]Dr. Yuki Diaz CBC AUTO DIFFon 12-29-2021 BASO # 0.0 103/ul Normal 0.0-0.1 [facility] Comment on above: Performed By: #### CBC ####[facility] ital Wusntdecjm4669[address] [place], [place] [address]Dr. Yuki Diaz Basophils/100 WBC (Bld) 0.3 % Normal 0.2-2.0 [facility] Comment on above: Performed By: #### CBC ####[facility] Gylvrvagun277[address] [place], [place] [address]Dr. Yuki Diaz EO # 0.1 103/ul Normal 0.0-0.7 [facility] Comment on above: Performed By: #### CBC ####[facility] ital Orrdduxaop5428 [address] Yuki Diaz Eosinophils/100 WBC (Bld) 1.4 % Normal 0.9-7.0 [facility] Comment on above: Performed By: #### CBC ####[facility] ital Mycgyejahe[address]79 [address] Yuki Diaz Erythrocyte distribution width (RBC) [Ratio] 14.2 % Normal 11.0-15.0 [facility] Comment on above: Performed By: #### CBC ####[facility] Lsfcxkvqjt[address] [place] [address]. Monsealyssa Diaz Hematocrit (Bld) [Volume fraction] 34.3 % Critically low 42.0-54.0 [facility] Comment on above: Performed By: #### CBC ####[facility] Jsbouwtdbd567[address] [place], [place] [address]Dr. Monsealyssa Diaz Hemoglobin (Bld) [Mass/Vol] 11.0 g/dL Critically low 14.0-18.0 [facility] Comment on above: Performed By: #### CBC ####[facility] J[address]ftkwvzg[address] [place] [address]. Yuki Diaz IG # 0.03 10e3/ul Normal 0.00-0.03 [facility] Comment on above: Performed By: #### CBC ####[facility] Uenucgeong[address] [place], [place] [address]Dr. Yuki Diaz IG % 0.4 % Normal 0.0-0.5 [facility] Comment on above: Performed By: #### CBC ####[facility] Dtkdmhrfsc8[address] [place] [address]. Yuki Diaz LYMPH # 1.3 103/ul Normal 1.2-3.8 [facility] Comment on above: Performed By: #### CBC ####[facility] Jlutmrytxp[address] [place] [address]. Yuki Diaz Lymphocytes/100 WBC (Bld) 18.5 % Critically low 20.5-60.0 [facility] Comment on above: Performed By: #### CBC ####[facility] ital Siejvrsrjk0[address] [place] [address]DrBebo Diaz MANUAL DIFF REQ NO Normal [facility] Comment on above: Performed By: #### CBC ####[facility] ital Qkrdavubsx9651 [place] [address]DrBebo Diaz MCH (RBC) [Entitic mass] 31.7 pg Normal 25.9-34.0 [facility] Comment on above: Performed By: #### CBC ####[facility] ital Sleqvoerpg4971 [place] [address]DrBebo Diaz MCHC (RBC) [Mass/Vol] 32.1 g/dL Normal 29.9-35.2 [facility] Comment on above: Performed By: #### CBC ####[facility] Ybgcohywof18[address] [place] [address]DrBebo Diaz MCV (RBC) [Entitic vol] 98.8 fL Critically high 80.0-94.0 [facility] Comment on above: Performed By: #### CBC ####[facility] Cjomskqnsz444[address] [place], [place] [address]DrBebo Diaz MONO # 0.7 103/ul Normal 0.3-0.8 [facility] Comment on above: Performed By: #### CBC ####[facility] ital Xvcslbycqy8443 [place] [address]DrBebo Diaz Monocytes/100 WBC (Bld) 10.6 % Normal 1.7-12.0 [facility] Comment on above: Performed By: #### CBC ####[facility] ital Deqvtyjgkr6624 [place] [address]DrBebo Diaz NEUT # 4.8 103/ul Normal 1.4-6.5 [facility] Comment on above: Performed By: #### CBC ####[facility] ital Lxdvukyrgi639[address] [place], [place] [address]DrBebo Diaz Neutrophils/100 WBC (Bld) 68.8 % Normal 43.0-75.0 [facility] Comment on above: Performed By: #### CBC ####[facility] ital Xkstosazyz2649 [place] [address]Dr. Yuki Diaz Platelet mean volume (Bld) [Entitic vol] 10.5 fL Normal 9.5-13.5 [facility] Comment on above: Performed By: #### CBC ####[facility] ital Wvzxleqmsf9410[address] [place], [place] [address]Dr. Yuki Diaz PLT 183 103/ul Normal 150-450 [facility] Comment on above: Performed By: #### CBC ####[facility] Fpfujxhujz255[address] [place], [place] [address]Dr. Monsealyssa Diaz RBC 3.47 106/ul Critically low 4.70-6.10 [facility] Comment on above: Performed By: #### CBC ####[facility] Uxmjfrfnnl4330[address] [place], [place] [address]Dr. Monsealyssa Joe WBC 7.0 103/ul Normal 4.0-11.0 [facility] Comment on above: Performed By: #### CBC ####[facility] Eueljiufrf894[address] [place], [place] [address]Dr. Yuki Diaz CULTURE URINEon 12-29-2021 CULTURE URINE Culture Observations : NO GROWTH. Normal [facility] Comment on above: Performed By: #### URCX ####[facility] pital Fwhtqzuzij28[address] [place], [place] [address]Dr. Monsealyssa Joe ECHO LIMITED STUDYon 022 ECHO LIMITED STUDY Normal [facility] POINT OF CARE GLUCOSEon 12-06 Glucose [Mass/Vol] 143 mg/dL Critically high 74-106 [facility] Comment on above: Performed By: #### POCGLUC ####[facility] Whoryvadxg101[address] [place], [place] [address]Dr. Monsealyssa Joe Glucose [Mass/Vol] 141 mg/dL Critically high 74-106 [facility] Comment on above: Performed By: #### POCGLUC ####[facility] Gthfrtlgdc[address] [place], [place] [address]Dr. Yuki Diaz Glucose [Mass/Vol] 190 mg/dL Critically high 74-106 [facility] Comment on above: Performed By: #### POCGLUC ####[facility] Eztrgunmnf930[address] [place], [place] [address]Dr. Yuki Diaz PROF 14(COMP METB)on 022 Albumin [Mass/Vol] 2.5 g/dL Critically low 3.4-5.0 [facility] Comment on above: Performed By: #### CMP, BNP ####[facility] Jjhhoisclp3764[address] [place], [place] [address]Dr. Yuki Diaz Albumin/Globulin [Mass ratio] 0.8 {ratio} Normal [facility] Comment on above: Performed By: #### CMP, BNP ####[facility] Mnxzocgwrj679[address] [place], [place] [address]Dr. Yuki Diaz ALP [Catalytic activity/Vol] 77 U/L Normal 46-116 [facility] Comment on above: Performed By: #### CMP, BNP ####[facility] Kdmstacgnd756[address] [place], [place] [address]Dr. Yuki Diaz ALT [Catalytic activity/Vol] 103 U/L Critically high 16-63 [facility] Comment on above: Performed By: #### CMP, BNP ####[facility] Bossdfdjuz318[address] [place], [place] [address]Dr. Yuki Diaz Anion gap [Moles/Vol] 12.3 mmol/L Normal [facility] Comment on above: Performed By: #### CMP, BNP ####[facility] Fzlpgzecoo04[address] [place], [place] [address]Dr. Yuki Diaz AST [Catalytic activity/Vol] 41 U/L Critically high 15-37 [facility] Comment on above: Performed By: #### CMP, BNP ####[facility] Ihmxpmqvxa140[address] [place], [place] [address]Dr. Yuki Diaz Bilirubin [Mass/Vol] 0.7 mg/dL Normal 0.2-1.0 [facility] Comment on above: Performed By: #### CMP, BNP ####[facility] Uzehgpqiki364[address] [place] [address]Dr. Yuki Diaz Calcium [Mass/Vol] 8.2 mg/dL Critically low 8.5-10.1 [facility] Comment on above: Performed By: #### CMP, BNP ####[facility] Wnuhgbhnst24[address] [place], [place] [address]Dr. Yuki Diaz Chloride [Moles/Vol] 108 mmol/L Critically high 98-107 [facility] Comment on above: Performed By: #### CMP, BNP ####[facility] Avqoryljfe[address] [place], [place] [address]Dr. Yuki Diaz CO2 [Moles/Vol] 28.4 mmol/L Normal 21.0-32.0 [facility] Comment on above: Performed By: #### CMP, BNP ####[facility] Fpdsfkhoif[address] [place], [place] [address]Dr. Yuki Diaz Creatinine [Mass/Vol] 1.74 mg/dL Critically high 0.70-1.30 [facility] Comment on above: Performed By: #### CMP, BNP ####[facility] Yduxavyryr[address] [place], [place] [address]Dr. Yuki Diaz EGFR-AF BELGIAN 46 mL/min/1.73m2 Critically low >=60 [facility] Comment on above: Performed By: #### CMP, BNP ####[facility] Wqgzgnpadc[address] [place], [place] [address]Dr. Yuki Diaz EGFR-NON AF BELGIAN 38 mL/min/1.73m2 Critically low >=60 [facility] Comment on above: Performed By: #### CMP, BNP ####[facility] Dbeikyifse[address] [place], [place] [address]Dr. Yuki Diaz Globulin (S) [Mass/Vol] 3.1 g/dL Normal [facility] Comment on above: Performed By: #### CMP, BNP ####[facility] Iuxnnsdqna39[address] [place], [place] [address]Dr. Yuki Diaz Glucose [Mass/Vol] 103 mg/dL Normal 74-106 [facility] Comment on above: Performed By: #### CMP, BNP ####[facility] Rsypmzdvnx8556 [place] [address]Dr. Yuki Diaz Potassium [Moles/Vol] 3.7 mmol/L Normal 3.5-5.1 [facility] Comment on above: Performed By: #### CMP, BNP ####[facility] Ermckwnpqm8730 [place] [address]Dr. Yuki Diaz Protein [Mass/Vol] 5.6 g/dL Critically low 6.4-8.2 [facility] Comment on above: Performed By: #### CMP, BNP ####[facility] Mqyvpwwfly[address] [place], [place] [address]Dr. Yuki Diaz Sodium [Moles/Vol] 145 mmol/L Normal 136-145 [facility] Comment on above: Performed By: #### CMP, BNP ####[facility] Quvcflyaot367[address] [place], [place] [address]Dr. Yuki Diaz Urea nitrogen [Mass/Vol] 33.0 mg/dL Critically high 7.0-18.0 [facility] Comment on above: Performed By: #### CMP, BNP ####[facility] Typnfjqjgk4411[address] [place], [place] [address]Dr. Yuki Diaz Urea nitrogen/Creatin ine [Mass ratio] 19.0 mg/mg Normal [facility] Comment on above: Performed By: #### CMP, BNP ####[facility] Lxxoceemlv8[address] [place], [place] [address]Dr. Yuki Diaz BNPon 12-28-2021 Natriuretic peptide B (Bld) [Mass/Vol] 1699.0 pg/mL Normal <=1,800.0 [facility] Comment on above: Performed By: #### TSH, BNP, CMP ####[facility] Fcnuotfefo9638[address] [place], [place] [address]Dr. Yuki Diaz CARDIAC RACHEL 3-6on 2 CK [Catalytic activity/Vol] 93 U/L Normal 39-308 [facility] Comment on above: Performed By: #### CMREP ####[facility] Sfwghghuea200[address] [place], [place] [address]Dr. Yuki Diaz CK.MB [Mass/Vol] 2.99 ng/mL Normal <=3.60 [facility] Comment on above: Performed By: #### CMREP ####[facility] Xpnukysuyy0216 [place] [address]Dr. Yuki Diaz HSTROP 30.7 pg/mL Normal 4.0-76.1 [facility] Comment on above: Result Comment: CUT-OFF POINTS HAVE BEEN ESTABLISHED BASED ON THE FOURTH UNIVERSAL DEFINITIONS OF MYOCARDIALINFARCTION. THE UPPER REFERENCE LIMIT (URL) OF TROPONIN, DEFINED THE 99TH PERCENTILE OFcTnI DISTRIBUTION IN A REFERENCE POPULATION, HAS BEEN CONFIRMED THE DECISION THRESHOLDFOR MD DIAGNOSIS. Performed By: #### C MREP ####[facility] Uvnsurnhno5380 [place] [address]Dr. Yuki Joe CK [Catalytic activity/Vol] 107 U/L Normal 39-308 [facility] Comment on above: Performed By: #### CMREP ####[facility] Suxpqwwsfx9[address] [place], [place] [address]Dr. Yuki Joe CK.MB [Mass/Vol] 3.26 ng/mL Normal <=3.60 [facility] Comment on above: Performed By: #### CMREP ####[facility] Dukvstzmwi59[address] [place], [place] [address]Dr. Yuki Diaz HSTROP 27.1 pg/mL Normal 4.0-76.1 [facility] Comment on above: Result Comment: CUT-OFF POINTS HAVE BEEN ESTABLISHED BASED ON THE [facility] UNIVERSAL DEFINITIONS OF MYOCARDIALINFARCTION. THE UPPER REFERENCE LIMIT (URL) OF TROPONIN, DEFINED THE 99TH PERCENTILE OFcTnI DISTRIBUTION IN A REFERENCE POPULATION, HAS BEEN CONFIRMED THE DECISION THRESHOLDFOR MD DIAGNOSIS. Performed By: #### C MREP ####[facility] Zzmsjjilbh4066 [place] [address]Dr. Yuki Diaz CARDIAC RACHEL ADMITon 022 CK [Catalytic activity/Vol] 101 U/L Normal 39-308 [facility] Comment on above: Performed By: #### CMADM ####[facility] Ffgoswlueq5344 [place] [address]Dr. Yuki Diaz CK.MB [Mass/Vol] 3.35 ng/mL Normal <=3.60 [facility] Comment on above: Performed By: #### CMADM ####[facility] Ijmyoiofkl[address] Yuki Diaz HSTROP 27.6 pg/mL Normal 4.0-76.1 [facility] Comment on above: Result Comment: CUT-OFF POINTS HAVE BEEN ESTABLISHED BASED ON THE FOURTH UNIVERSAL DEFINITIONS OF MYOCARDIALINFARCTION. THE UPPER REFERENCE LIMIT (URL) OF TROPONIN, DEFINED THE 99TH PERCENTILE OFcTnI DISTRIBUTION IN A REFERENCE POPULATION, HAS BEEN CONFIRMED THE DECISION THRESHOLDFOR MD DIAGNOSIS. Performed By: #### C MADM ####[facility] [address]vfr[address] [place] [address]. Yuki Diaz DILSHAD 153 ng/mL Critically high 16-96 [facility] Comment on above: Performed By: #### CMADM ####[facility] Nztomwzurg[address] [place], [place] [address]Dr. Yuki Diaz CBC AUTO DIFFon 12-28-2021 BASO # 0.0 103/ul Normal 0.0-0.1 [facility] Comment on above: Performed By: #### CBC ####[facility] ital Fzmejfyifv[address] [place] [address]. Yuki Diaz Basophils/100 WBC (Bld) 0.1 % Critically low 0.2-2.0 [facility] Comment on above: Performed By: #### CBC ####[facility] ital Jbkadnqszy4767 [address] Yuki Diaz EO # 0.1 103/ul Normal 0.0-0.7 [facility] Comment on above: Performed By: #### CBC ####[facility] ital Ywcjwcihuj[address] [place], [place] [address]Dr. Yuki Diaz Eosinophils/100 WBC (Bld) 0.8 % Critically low 0.9-7.0 [facility] Comment on above: Performed By: #### CBC ####[facility] ital Pitnsqqrsq[address] [place], [place] [address]Dr. Yuki Diaz Erythrocyte distribution width (RBC) [Ratio] 14.2 % Normal 11.0-15.0 [facility] Comment on above: Performed By: #### CBC ####[facility] Nflzobjzvh2221 [place] [address]Dr. Yuki Diaz Hematocrit (Bld) [Volume fraction] 38.5 % Critically low 42.0-54.0 [facility] Comment on above: Performed By: #### CBC ####[facility] Cubdwzlatk0101 [place] [address]Dr. Yuki Diaz Hemoglobin (Bld) [Mass/Vol] 12.3 g/dL Critically low 14.0-18.0 [facility] Comment on above: Performed By: #### CBC ####[facility] Omnhzixjsd5221 [place] [address]Dr. Yuki Diaz IG # 0.06 10e3/ul Critically high 0.00-0.03 [facility] Comment on above: Performed By: #### CBC ####[facility] Xvxpystdyt[address] [place], [place] [address]Dr. Yuki Diaz IG % 0.7 % Critically high 0.0-0.5 [facility] Comment on above: Performed By: #### CBC ####[facility] Cqvxibgwdn2141 [place] [address]Dr. Yuki Diaz LYMPH # 1.0 103/ul Critically low 1.2-3.8 [facility] Comment on above: Performed By: #### CBC ####[facility] Ksocisromr7896 [place] [address]Dr. Yuki Diaz Lymphocytes/100 WBC (Bld) 10.7 % Critically low 20.5-60.0 [facility] Comment on above: Performed By: #### CBC ####[facility] Jcpclxoxky01[address] [place], [place] [address]Dr. Yuki Diaz MANUAL DIFF REQ NO Normal [facility] Comment on above: Performed By: #### CBC ####[facility] Wnejigtquh9357 [place] [address]Dr. Yuki Diaz MCH (RBC) [Entitic mass] 31.9 pg Normal 25.9-34.0 [facility] Comment on above: Performed By: #### CBC ####[facility] Ieoacakkup5380 [place] [address]Dr. Yuki Diaz MCHC (RBC) [Mass/Vol] 31.9 g/dL Normal 29.9-35.2 [facility] Comment on above: Performed By: #### CBC ####[facility] Rztocfudsv3492 [place] [address]Dr. Yuki Diaz MCV (RBC) [Entitic vol] 99.7 fL Critically high 80.0-94.0 [facility] Comment on above: Performed By: #### CBC ####[facility] Bkiwlrozit4874 [place] [address]Dr. Yuki Diaz MONO # 0.7 103/ul Normal 0.3-0.8 [facility] Comment on above: Performed By: #### CBC ####[facility] Yctgwkfgpq7104 [place] [address]Dr. Yuki Diaz Monocytes/100 WBC (Bld) 7.2 % Normal 1.7-12.0 [facility] Comment on above: Performed By: #### CBC ####[facility] Qzbtnujqkb9053 [place] [address]Dr. Yuki Diaz NEUT # 7.4 103/ul Critically high 1.4-6.5 [facility] Comment on above: Performed By: #### CBC ####[facility] Faacgsxyfr9867 [place] [address]Dr. Yuki Diaz Neutrophils/100 WBC (Bld) 80.5 % Critically high 43.0-75.0 [facility] Comment on above: Performed By: #### CBC ####[facility] Iijwcgpzaf3662 [place] [address]Dr. Yuki Diaz Platelet mean volume (Bld) [Entitic vol] 10.0 fL Normal 9.5-13.5 [facility] Comment on above: Performed By: #### CBC ####[facility] Eyiiuvhlre0667 [place], [place] [address]Ai. Yuki Diaz PLT 194 103/ul Normal 150-450 [facility] Comment on above: Performed By: #### CBC ####[facility] Zjszrjiabn2276 [place], [place] [address]Jw. Yuki Diaz RBC 3.86 106/ul Critically low 4.70-6.10 [facility] Comment on above: Performed By: #### CBC ####[facility] Sgvskobhnv3751 [place], [place] [address]Np. Yuki Diaz WBC 9.2 103/ul Normal 4.0-11.0 [facility] Comment on above: Performed By: #### CBC ####[facility] Vqaqxyymau5869 [place], [place] [address]Lu. Yuki Diaz Covid-19 PCR (CVDTB)on 12-06 SARS-CoV-2 (COVID-19) RNA JARVIS+probe Ql (Unsp spec) Not detected Normal NOT DETECTED [facility] Comment on above: Result Comment: When diagnostic testing is negative, the possibility of a false negative should be considered inthe context of a patient's recent exposures and the presence of clinical signs and symptomsconsistent with SARS-CoV-2.This test is not yet approved or cleared by the [place] Food and Drug Administration (FDA).This test was developed by [employer], [place], [place]. The performance characteristics ofthis test were validated by [facility]. The results are not intended to beused as the sole means for clinical diagnosis or patient management decisions. [facility] is authorized under Clinical Laboratory Improvement Amendments (CLIA) to perform high-complexity testing.This test is not yet approved or cleared by the [place] FDA. When there are no FDA-approved or cleared tests available, and other criteria are met, FDA can make tests available under an emergency access mechanism called an Emergency Use Authorization (EUA). The EUA for this test is supported by the [employer] of Health and Human Service's declaration that [...] be used). Performed By: #### C VDTB ####[facility] Dkoxkaefwf9134 [place] [address]Dr. Yuki Diaz ER URINE PROFILEon 2 Bilirubin Ql (U) Negative Normal NEGATIVE [facility] Comment on above: Performed By: #### ERUR ####[facility] Ptglqklpkm1505 [place] [address]Dr. Monsealyssa Diaz Clarity (U) CLEAR Normal CLEAR [facility] Comment on above: Performed By: #### ERUR ####[facility] pital Decntypybq7544 [place] [address]Dr. Monsealyssa Diaz Color (U) YELLOW Normal YELLOW [facility] Comment on above: Performed By: #### ERUR ####[facility] pital Zndasilhgn9774 [place] [address]Dr. Yuki Diaz ERUAHD A micrscopic examina tion will be performed if indicated. Normal [facility] Comment on above: Performed By: #### ERUR ####[facility] p[facility] Jtfhxtcxkv5886 [place] [address]Dr. Monsealyssa Diaz Glucose Ql (U) Negative Normal NEGATIVE [facility] Comment on above: Performed By: #### ERUR ####[facility] p[facility] Awyzastebk0708 [place] [address]Dr. Monsealyssa Diaz Hemoglobin Ql (U) Negative Normal NEGATIVE [facility] Comment on above: Performed By: #### ERUR ####[facility] pital Puepwkhqns2624 [place] [address]Dr. Monsealyssa Diaz Ketones Ql (U) Negative Normal NEGATIVE [facility] Comment on above: Performed By: #### ERUR ####[facility] Jgjnadcxou3422 [place] [address]Dr. Yuki Diaz LEUKOCYTES Negative Normal NEGATIVE [facility] Comment on above: Performed By: #### ERUR ####[facility] Alizcaadhe9817 [place] [address]Dr. Yuki Diaz Nitrite Ql (U) Negative Normal NEGATIVE [facility] Comment on above: Performed By: #### ERUR ####[facility] Fiuqqdoyhj8961 [place] [address]Dr. Yuki Diaz pH (U) 5.5 [pH] Normal 5-9 [facility] Comment on above: Performed By: #### ERUR ####[facility] p[facility] Zqqianyiit9409 [place] [address]Dr. Yuki Diaz Protein (U) [Mass/Vol] 100 mg/dL Abnormal NEGATIVE/ TRACE [facility] Comment on above: Performed By: #### ERUR ####[facility] p[facility] Bgtjjbaaiq4780 [place] [address]Dr. Yuki Diaz SPEC GRAVITY >=1.030 Abnormal 1.005-<=1. 025 [facility] Comment on above: Performed By: #### ERUR ####[facility] p[facility] Ajftbtnkap4774 [place] [address]Dr. Yuki Diaz UR MICRO IND NOT INDICATED Normal [facility] Comment on above: Performed By: #### ERUR ####[facility] pital Jcbqnwjtmn7171 [place] [address]Dr. Yuki Diaz Urobilinogen Qn (U) 0.2 {Chidi'U}/dL Normal 0.2 - 1.0 [facility] Comment on above: Performed By: #### ERUR ####[facility] p[facility] Nonvdvmehp7368 [place] [address]Dr. Yuki Diaz LACTATE/LACTIC ACIDon 2021 Lactate [Moles/Vol] 2.2 mmol/L Critically high 0.4-1.9 [facility] Comment on above: Performed By: #### LACT ####[facility] pital Pjzvkqxmqs9575 [place] [address]Dr. Yuki Diaz POINT OF CARE GLUCOSEon 12-06 Glucose [Mass/Vol] 183 mg/dL Critically high 74-106 [facility] Comment on above: Performed By: #### POCGLUC ####[facility] Hvfxjyhvhn4288 [place] [address]Dr. Yuki Diaz Glucose [Mass/Vol] 167 mg/dL Critically high 74-106 [facility] Comment on above: Performed By: #### POCGLUC ####[facility] Jrfdcbatbb7280 [place] [address]Dr. Yuki Diaz PROF 14(COMP METB)on 022 Albumin [Mass/Vol] 2.9 g/dL Critically low 3.4-5.0 [facility] Comment on above: Performed By: #### TSH, BNP, CMP ####[facility] Nuolkesjih1573 [place] [address]Dr. Yuki Diaz Albumin/Globulin [Mass ratio] 0.9 {ratio} Normal [facility] Comment on above: Performed By: #### TSH, BNP, CMP ####[facility] Lryprlskme[address] [place], [place] [address]Dr. Yuki Diaz ALP [Catalytic activity/Vol] 83 U/L Normal 46-116 [facility] Comment on above: Performed By: #### TSH, BNP, CMP ####[facility] Fhxkazdbsk42[address] [place], [place] [address]Dr. Yuki Diaz ALT [Catalytic activity/Vol] 98 U/L Critically high 16-63 [facility] Comment on above: Performed By: #### TSH, BNP, CMP ####[facility] Zrmkgasrih2012 [place] [address]Dr. Yuki Diaz Anion gap [Moles/Vol] 11.6 mmol/L Normal [facility] Comment on above: Performed By: #### TSH, BNP, CMP ####[facility] Tzedvmwqpx5847 [place] [address]Dr. Yuki Diaz AST [Catalytic activity/Vol] 51 U/L Critically high 15-37 [facility] Comment on above: Performed By: #### TSH, BNP, CMP ####[facility] Exrhwpbnzg1018 [place] [address]Dr. Yuki Diaz Bilirubin [Mass/Vol] 0.9 mg/dL Normal 0.2-1.0 [facility] Comment on above: Performed By: #### TSH, BNP, CMP ####[facility] Okkpqoiggm04[address] [place], [place] [address]Dr. Yuki Diaz Calcium [Mass/Vol] 8.3 mg/dL Critically low 8.5-10.1 [facility] Comment on above: Performed By: #### TSH, BNP, CMP ####[facility] Deflgkfsdz838[address] [place], [place] [address]Dr. Yuki Diaz Chloride [Moles/Vol] 106 mmol/L Normal 98-107 [facility] Comment on above: Performed By: #### TSH, BNP, CMP ####[facility] Zoomiiqevs735[address] [place], [place] [address]Dr. Yuik Diaz CO2 [Moles/Vol] 28.2 mmol/L Normal 21.0-32.0 [facility] Comment on above: Performed By: #### TSH, BNP, CMP ####[facility] Ufkjxohden[address] [place], [place] [address]Dr. Yuki Diaz Creatinine [Mass/Vol] 1.84 mg/dL Critically high 0.70-1.30 [facility] Comment on above: Performed By: #### TSH, BNP, CMP ####[facility] Ufyecqumbi940[address] [place], [place] [address]Dr. Yuki Diaz EGFR-AF BELGIAN 43 mL/min/1.73m2 Critically low >=60 [facility] Comment on above: Performed By: #### TSH, BNP, CMP ####[facility] Scultlqvwp178[address] [place], [place] [address]Dr. Yuki Diaz EGFR-NON AF BELGIAN 36 mL/min/1.73m2 Critically low >=60 [facility] Comment on above: Performed By: #### TSH, BNP, CMP ####[facility] Hmfimuxxzs37[address] [place], [place] [address]Dr. Yuki Diaz Globulin (S) [Mass/Vol] 3.3 g/dL Normal [facility] Comment on above: Performed By: #### TSH, BNP, CMP ####[facility] Euhodqnkng9217 [place] [address]Dr. Yuki Diaz Glucose [Mass/Vol] 202 mg/dL Critically high 74-106 [facility] Comment on above: Performed By: #### TSH, BNP, CMP ####[facility] Lkmktyhuxu0584 [place] [address]Dr. Yuki Diaz Potassium [Moles/Vol] 3.8 mmol/L Normal 3.5-5.1 [facility] Comment on above: Performed By: #### TSH, BNP, CMP ####[facility] Wzcwguqoss9[address] [place], [place] [address]Dr. Yuki Diaz Protein [Mass/Vol] 6.2 g/dL Critically low 6.4-8.2 [facility] Comment on above: Performed By: #### TSH, BNP, CMP ####[facility] Ppjtwydemg413[address] [place], [place] [address]Dr. Yuki Diaz Sodium [Moles/Vol] 142 mmol/L Normal 136-145 [facility] Comment on above: Performed By: #### TSH, BNP, CMP ####[facility] Pnyfovwnqt23[address] [place], [place] [address]Dr. Yuki Diaz Urea nitrogen [Mass/Vol] 28.0 mg/dL Critically high 7.0-18.0 [facility] Comment on above: Performed By: #### TSH, BNP, CMP ####[facility] Ecoluktnno7[address] [place], [place] [address]Dr. Yuki Diaz Urea nitrogen/Creatin ine [Mass ratio] 15.2 mg/mg Normal [facility] Comment on above: Performed By: #### TSH, BNP, CMP ####[facility] Rkrmmqpaej43[address] [place], [place] [address]Dr. Yuki Diaz TSHon 12-28-2021 TSH 1.808 uIU/mL Normal 0.358-3.74 0 [facility] Comment on above: Performed By: #### TSH, BNP, CMP ####[facility] Vwijjqwcew[address] [place], [place] [address]Dr. Yuki Diaz TSH RANGE SEE BELOW Normal [facility] Comment on above: Result Comment: <0.34 UIU/ml HYPERTHYROI D 0.34-5.60 UIU/ml EUTHYROID >5.60 UIU/ml HYPOTHYROID Performed By: #### T SH, BNP, CMP ####[facility] Aqliplrxpt9103 [place] [address]Dr. Yuki Diaz XR CHEST 1 Von 12-28-2021 XR CHEST 1 V Normal [facility] BNPon 12-22-2021 Natriuretic peptide B (Bld) [Mass/Vol] 2907.0 pg/mL Critically high <=1,800.0 [facility] Comment on above: Performed By: #### BNP ####[facility] ital Yatscbsded8000 [place] [address]Dr. Yuki Diaz PROF 14(COMP METB)on 022 Albumin [Mass/Vol] 3.0 g/dL Critically low 3.4-5.0 [facility] Comment on above: Performed By: #### CMP ####[facility] ital Bercxazcmg1557 [place] [address]Dr. Yuki Diaz Albumin/Globulin [Mass ratio] 0.9 {ratio} Normal [facility] Comment on above: Performed By: #### CMP ####[facility] ital Gskfvbdmeq2435 [place] [address]Dr. Yuki Diaz ALP [Catalytic activity/Vol] 94 U/L Normal 46-116 [facility] Comment on above: Performed By: #### CMP ####[facility] ital Wyynbemwyo6584 [place] [address]Dr. Yuki Diaz ALT [Catalytic activity/Vol] 39 U/L Normal 16-63 [facility] Comment on above: Performed By: #### CMP ####[facility] ital Xevjhpztpw9572 [place] [address]Dr. Yuki Diaz Anion gap [Moles/Vol] 13.4 mmol/L Normal [facility] Comment on above: Performed By: #### CMP ####[facility] ital Pukxppnabo0268 [place] [address]Dr. uYki Diaz AST [Catalytic activity/Vol] 11 U/L Critically low 15-37 [facility] Comment on above: Performed By: #### CMP ####[facility] Kbbyzgnaze2756 [place] [id number]. Yuki Diaz Bilirubin [Mass/Vol] 0.5 mg/dL Normal 0.2-1.0 [facility] Comment on above: Performed By: #### CMP ####[facility] Tfmvmptaco4228 [place] [id number]. Yuki Diaz Calcium [Mass/Vol] 8.5 mg/dL Normal 8.5-10.1 [facility] Comment on above: Performed By: #### CMP ####[facility] ital Oopswhxdmy9132 [place] [address]Dr. Yuki Joe Chloride [Moles/Vol] 110 mmol/L Critically high 98-107 [facility] Comment on above: Performed By: #### CMP ####[facility] Sngfzfqqhd7825 [place] [address]Dr. Yuki Joe CO2 [Moles/Vol] 26.1 mmol/L Normal 21.0-32.0 [facility] Comment on above: Performed By: #### CMP ####[facility] Egngdmpvmh5637 [place] [address]Dr. Yuki Joe Creatinine [Mass/Vol] 1.71 mg/dL Critically high 0.70-1.30 [facility] Comment on above: Performed By: #### CMP ####[facility] Grgldzmmwb9402 [place] [address]Dr. Yuki Joe EGFR-AF BELGIAN 47 mL/min/1.73m2 Critically low >=60 [facility] [facility] Comment on above: Performed By: #### CMP ####[facility] ital [id number] [place] [id number]. Monsealyssa Joe EGFR-NON AF BELGIAN 39 mL/min/1.73m2 Critically low >=60 [facility] Comment on above: Performed By: #### CMP ####[facility] ital [id number] [place] [id number]. Yuki Joe Globulin (S) [Mass/Vol] 3.4 g/dL Normal [facility] Comment on above: Performed By: #### CMP ####[facility] ital [id number] [place] [address]Dr. Yuki Diaz Glucose [Mass/Vol] 211 mg/dL Critically high 74-106 [facility] Comment on above: Performed By: #### CMP ####[facility] ital [id number] [place] [address]Dr. Yuki Diaz Potassium [Moles/Vol] 4.5 mmol/L Normal 3.5-5.1 [facility] Comment on above: Performed By: #### CMP ####[facility] ital [id number] [place] [address]Dr. Yuki Diaz Protein [Mass/Vol] 6.4 g/dL Normal 6.4-8.2 [facility] Comment on above: Performed By: #### CMP ####[facility] ital [id number] [place] [address]Dr. Yuki Idaz Sodium [Moles/Vol] 145 mmol/L Normal 136-145 [facility] Comment on above: Performed By: #### CMP ####[facility] ital [id number] [place] [address]Dr. Yuki Diaz Urea nitrogen [Mass/Vol] 33.0 mg/dL Critically high 7.0-18.0 [facility] Comment on above: Performed By: #### CMP ####[facility] ital [id number] [place] [address]Dr. Yuki Diaz Urea nitrogen/Creatin ine [Mass ratio] 19.3 mg/mg Normal [facility] Comment on above: Performed By: #### CMP ####[facility] ital [id number] [place] [address]Dr. Yuki Joe Lab Reportson 12-15-2021 Lab Reports [id number] Normal [facility] BASIC METABOLIC PANELon 08-0 Calcium mass conc 9.1 mg/dL Normal 8.6-10.3 [facility] Comment on above: Order Comment: No: Do not add to previou s draw Performed By: #### 5 0103 ####[facility] [place] [address], [facility] Chloride molar conc 104 mmol/L Normal 98-107 [facility] Comment on above: Order Comment: No: Do not add to previou s draw Performed By: #### 5 0103 ####[facility] [place] [address], [place] CO2 molar conc 27 mmol/L Normal 21-31 [facility] Comment on above: Order Comment: No: Do not add to previou s draw Performed By: #### 5 0103 ####[facility] [place] [address], [place] Creatinine mass conc 1.29 mg/dL Normal 0.70-1.30 [facility] Comment on above: Order Comment: No: Do not add to previou s draw Performed By: #### 5 0103 ####[facility] [place] [address], [place] GFR/1.73 sq M predicted among blacks MDRD vol rate/area (S/P/Bld) mL/min/{1.73_m2} Normal >60 [facility] Comment on above: Order Comment: No: Do not add to previou s draw Result Comment: Calc ulation may not be valid for patients over 70 years Performed By: #### 5 0103 ####[facility] [place] [address], [place] GFR/1.73 sq M predicted among non-blacks MDRD vol rate/area (S/P/Bld) 54 ml/min/1.73sq m Abnormal >60 [facility] Comment on above: Order Comment: No: Do not add to previou s draw Result Comment: Calc ulation may not be valid for patients over 70 years Performed By: #### 5 0103 ####[facility] [place] [address], [facility] Glucose mass conc 109 mg/dL High 70-100 [facility] Comment on above: Order Comment: No: Do not add to previou s draw Performed By: #### 5 0103 ####[facility] [place] [address], [facility] Potassium molar conc 3.6 mmol/L Normal 3.5-5.1 [facility] Comment on above: Order Comment: No: Do not add to previou s draw Performed By: #### 5 0103 ####[facility] [place] [address], [facility] Sodium molar conc 139 mmol/L Normal 136-145 [facility] Comment on above: Order Comment: No: Do not add to previou s draw Performed By: #### 5 0103 ####[facility] [place] [address], [facility] Urea nitrogen mass conc 19 mg/dL Normal 7-25 [facility] Comment on above: Order Comment: No: Do not add to previou s draw Performed By: #### 5 0103 ####[facility] CBC COMPLETE BLOOD COUNTon 0 - Erythrocyte distribution width Auto Ratio (RBC) 13.2 % Normal 11.5-15.0 [facility] Comment on above: Order Comment: No: Do not add to previou s draw Performed By: #### 5 0103 ####[facility] [place] [address], [facility] Hematocrit Auto Volume Fraction (Bld) 42.2 % Normal 39.0-50.0 [facility] Comment on above: Order Comment: No: Do not add to previou s draw Performed By: #### 5 0103 ####[facility] Hemoglobin mass conc (Bld) 13.9 g/dL Normal 13.0-17.0 [facility] Comment on above: Order Comment: No: Do not add to previou s draw Performed By: #### 5 0103 ####[facility] MCH Auto Entitic mass (RBC) 29.7 pg Normal 27.0-33.0 [facility] Comment on above: Order Comment: No: Do not add to previou s draw Performed By: #### 5 0103 ####[facility] [facility] MCHC Auto mass conc (RBC) 32.9 g/dL Normal 32.0-35.0 [facility] Comment on above: Order Comment: No: Do not add to previou s draw Performed By: #### 5 0103 ####[facility] [facility] MCV Auto Entitic volume (RBC) 90.2 fL Normal 82.0-98.0 [facility] Comment on above: Order Comment: No: Do not add to previou s draw Performed By: #### 5 0103 ####[facility] [facility] Nucleated RBC/100 WBC Ratio (Bld) 0 % Normal 0-0 [facility] Comment on above: Order Comment: No: Do not add to previou s draw Performed By: #### 5 0103 ####[facility] [place] [address], [facility] PLAT CNT 226 10*3/uL Normal 150-400 [facility] Comment on above: Order Comment: No: Do not add to previou s draw Performed By: #### 5 0103 ####[facility] RBC Auto #/vol (Bld) 4.68 10*6/uL Normal 4.20-5.70 [facility] Comment on above: Order Comment: No: Do not add to previou s draw Performed By: #### 5 0103 ####[facility] WBC Auto #/vol (Bld) 6.80 10*3/uL Normal 4.00-10.60 [facility] Comment on above: Order Comment: No: Do not add to previou s draw Performed By: #### 5 0103 ####[facility] Cardiovascular Lab Reporton 03-10-2018 Cardiovascular Lab Report [facility] Patient Name: Ju[facility]os [facility] MR #: [id number] Physician: Oren Zafar M.D.Medicine Service Date: 03/09/2018Division of Birthdate: 2Cardiology Room #: 3CD [id number] CardiovascularServicThe[place] [phone] Fax Cardiovascular Laboratory ReportCARDIAC CATHETERIZATION REPORTINDICATION: Sheng [...] signed informed consent. He was brought to labor relations analyst in a fasting state.The right groin area was prepped and draped in usual fashion. Usingmicropuncture technique, the right common femoral artery was accessed. Theinner cannula was advanced, limited femoral angiography was performed.Followed by upsizing to a 6-Cameroonian x 11 cm sheath. Bilateral selectivecoronary angiography was then performed using 6-Cameroonian JL4 and PA6usizppxbcx catheters. The 6-Cameroonian JR4 diagnostic catheter was used toselectively engage the radial graft to the OM2 and saphenous venous graftto the PDA branch. Angiography was performed. Catheter was removed. A6-Cameroonian GEOVANNY catheter was used to selectively engage the left subclavianartery and then selectively engage the left internal mammary artery.Angiography was performed. Catheter was removed.Heparin was administered intravenously and therapeutic ACT confirmed duringthe procedure. A 6-Cameroonian XB 3.0 guiding catheter was advanced and used toengage the left main coronary ostium. A [place] wire was advanced into thedistal circumflex. Balloon angioplasty in the mid circumflex was performedusing Emerge 3.0 x 15 mm balloon inflated at 10 atmospheres. Angiographyof this revealed suboptimal result. Therefore, a Synergy 3.0 x 24 mmdrug-eluting stent was deployed at 12 atmospheres and post dilated using NCQuantum [place] 3.0 x 20 mm noncompliant balloon inflated at 18 atmospheresthroughout the length of the stent. Angiography after administration ofintracoronary nitroglycerin showed excellent result with reduction of thestenosis to 0%. No evidence of dissection or perforation. The guidingcatheter was removed. The right femoral arteriotomy was managed with a6-Cameroonian Angio-Seal device with good hemostasis. He was [...] The distal LAD has moderate diffuse disease vrbyzwp85%-70% beyond the anastomosis of the VEGA graft.Circumflex [...] 03/09/2018/06:08 P/Oren Simon M.D.Date Trans: 03/10/2018 04:31 A/mmoDN_JN:[id number]: Derrick Lopez M.D. [address] [place] [address] [place] [facility] Discharge Summaryon 03-10-20 Discharge Summary MR#: [id number] [facility] Sheng [facility] Admitted: 03/08/2018 Discharged: [...] as listed above, who was sent from [facility] due to concernof possible ACS. Apparently, the patient presented [facility] and [facility], which was his presenting complaint prior toneeding his last CABG 16 years ago. EKG at [facility] showed new T-waveinversions in the inferior leads, not there on previous EKG. Firsttroponin was negative and continuous improvement specialist here at [facility], recommended to beingthe patient to be sent to [facility] for cardiac cath. The patient was admittedto Medicine on step-down service and Cardiology was consulted. The patientpreviously had stress test within the past 2 years, which was negative andrecent echocardiogram per patient history, which was performed 6 months agoshowed improvement regarding wall motion abnormalities and ejectionfraction. The patient was taken to labor relations analyst following day after admission,revealing patent 3/3 bypass [...] taking and to discuss high-intensity statinwith his continuous improvement specialist, which he will be follow up with [...] Dict: 03/10/2018/12:04 P/TAYLOR Lua-CDate Trans: 03/10/2018 07:17 P/Esdras_JN:[id number]: Derrick Lopez M.D. [address] [place] [address] Normal [facility] POC GLUCOSE LABon 03-10-2018 Glucose mass conc 256 mg/dL High 70-100 [facility] Comment on above: Performed By: #### 72774, 99749, 66671, 76563, 73736 ####[facility] [place] [address], [facility] Glucose mass conc 160 mg/dL High 70-100 [facility] Comment on above: Performed By: #### 37060, 85571, 01136, 82119, 34527 ####[facility] [place] [address], [facility] BASIC METABOLIC PANELon Calcium mass conc 9.1 mg/dL Normal 8.6-10.3 [facility] Comment on above: Order Comment: No: Do not add to previou s draw Performed By: #### 5 0103 ####[facility] [place] [address], [facility] Chloride molar conc 103 mmol/L Normal 98-107 [facility] Comment on above: Order Comment: No: Do not add to previou s draw Performed By: #### 5 0103 ####[facility] [facility] [address], [place] CO2 molar conc 28 mmol/L Normal 21-31 [facility] Comment on above: Order Comment: No: Do not add to previou s draw Performed By: #### 5 0103 ####[facility] [place] [address], [place] Creatinine mass conc 1.20 mg/dL Normal 0.70-1.30 [facility] Comment on above: Order Comment: No: Do not add to previou s draw Performed By: #### 5 0103 ####[facility] [place] [address], [facility] GFR/1.73 sq M predicted among blacks MDRD vol rate/area (S/P/Bld) mL/min/{1.73_m2} Normal >60 [facility] Comment on above: Order Comment: No: Do not add to previou s draw Result Comment: Calc ulation may not be valid for patients over 70 years Performed By: #### 5 0103 ####[facility] [place] [address], [facility] GFR/1.73 sq M predicted among non-blacks MDRD vol rate/area (S/P/Bld) 59 ml/min/1.73sq m Abnormal >60 [facility] Comment on above: Order Comment: No: Do not add to previou s draw Result Comment: Calc ulation may not be valid for patients over 70 years Performed By: #### 5 0103 ####[facility] [facility] [address], [facility] Glucose mass conc 96 mg/dL Normal 70-100 [facility] Comment on above: Order Comment: No: Do not add to previou s draw Performed By: #### 5 0103 ####[facility] [facility] [address], [place] Potassium molar conc 3.7 mmol/L Normal 3.5-5.1 [facility] Comment on above: Order Comment: No: Do not add to previou s draw Performed By: #### 5 0103 ####[facility] [place] [address], [place] Sodium molar conc 140 mmol/L Normal 136-145 [facility] Comment on above: Order Comment: No: Do not add to previou s draw Performed By: #### 5 0103 ####[facility] [place] [address], [place] Urea nitrogen mass conc 19 mg/dL Normal 7-25 [facility] Comment on above: Order Comment: No: Do not add to previou s draw Performed By: #### 5 0103 ####[facility]3000 [facility].[address] POC GLUCOSE LABon 03-09-2018 Glucose mass conc 155 mg/dL High 70-100 [facility] Comment on above: Performed By: #### 35050 ####[facility] [facility] Glucose mass conc 91 mg/dL Normal 70-100 [facility] Comment on above: Performed By: #### 27287 ####[facility] [facility].[address] Glucose mass conc 107 mg/dL High 70-100 [facility] Comment on above: Performed By: #### 74984 ####[facility] [facility].[address] Glucose mass conc 115 mg/dL High 70-100 [facility] Comment on above: Performed By: #### 74067 ####[facility] [facility].[address] UFH HEPARIN ASSAYon 03-09-20 18 UNFRACTIONATED HEPARIN 0.42 IU/mL Normal 0.30-0.70 [facility] Comment on above: Result Comment: Rivaroxaban and Apixaban will interfere with the anti Xa assay used tomonitor UFH and LMWH. Performed By: #### 5 0103 ####[facility] [facility] [place] [address], [facility] UNFRACTIONATED HEPARIN 0.27 IU/mL Low 0.30-0.70 [facility] Comment on above: Result Comment: Rivaroxaban and Apixaban will interfere with the anti Xa assay used tomonitor UFH and LMWH. Performed By: #### 5 0103 ####[facility] [facility].[address] APTTon 03-08-2018 aPTT Coag time (Bld) 68.3 s High 25.0-35.0 [facility] Comment on above: Order Comment: No: [...] UFH <0.1 Performed By: #### 5 7307, 97324 ####[facility] BASIC METABOLIC PANELon Calcium mass conc 9.4 mg/dL Normal 8.6-10.3 [facility] Comment on above: Order Comment: No: Do not add to previou s draw Performed By: #### 9 9909, 69814, 52414, 02198, 49113 ####[facility] [facility] [place] [address], [facility] Chloride molar conc 105 mmol/L Normal 98-107 [facility] Comment on above: Order Comment: No: Do not add to previou s draw Performed By: #### 9 9909, 42123, 33416, 57923, 27640 ####[facility] [facility].[address] CO2 molar conc 28 mmol/L Normal 21-31 [facility] Comment on above: Order Comment: No: Do not add to previou s draw Performed By: #### 9 9909, 10250, 74722, 48420, 54426 ####[facility] [facility] [place] [address], [facility] Creatinine mass conc 1.13 mg/dL Normal 0.70-1.30 [facility] Comment on above: Order Comment: No: Do not add to previou s draw Performed By: #### 9 9909, 96405, 60227, 85879, 70800 ####[facility] [facility] [address], [facility] GFR/1.73 sq M predicted among blacks MDRD vol rate/area (S/P/Bld) mL/min/{1.73_m2} Normal >60 [facility] Comment on above: Order Comment: No: Do not add to previou s draw Result Comment: Calc ulation may not be valid for patients over 70 years Performed By: #### 9 9909, 74295, 02603, 89729, 24923 ####[facility] [facility] [place] [address], [facility] GFR/1.73 sq M predicted among non-blacks MDRD vol rate/area (S/P/Bld) mL/min/{1.73_m2} Normal >60 [facility] Comment on above: Order Comment: No: Do not add to previou s draw Result Comment: Calc ulation may not be valid for patients over 70 years Performed By: #### 9 9909, 09483, 85408, 73934, 94728 ####[facility] [facility] [place] [address], [facility] Glucose mass conc 108 mg/dL High 70-100 [facility] Comment on above: Order Comment: No: Do not add to previou s draw Performed By: #### 9 9909, 16278, 77463, 41124, 60611 ####[facility] [facility] [place] [address], [place] Potassium molar conc 3.7 mmol/L Normal 3.5-5.1 [facility] Comment on above: Order Comment: No: Do not add to previou s draw Performed By: #### 9 9909, 83473, 10875, 12800, 92564 ####[facility] [place] [address], [place] Sodium molar conc 141 mmol/L Normal 136-145 [facility] Comment on above: Order Comment: No: Do not add to previou s draw Performed By: #### 9 9909, 45803, 84004, 49029, 19036 ####[facility] Urea nitrogen mass conc 21 mg/dL Normal 7-25 [facility] Comment on above: Order Comment: No: Do not add to previou s draw Performed By: #### 9 9909, 42027, 84481, 29363, 71130 ####[facility] CBC W/DIFFon 03-08-2018 ABS BASOPHILS 0.0 10*3/uL Normal 0.0-0.2 [facility] Comment on above: Performed By: #### 17952 ####[facility] ABS IMM GRANS 0.0 10*3/uL Normal 0.0-0.2 [facility] Comment on above: Performed By: #### 82340 ####[place] [address] [address] ABS NEUTROPHILS 4.4 10*3/uL Normal 1.6-7.6 [facility] Comment on above: Performed By: #### 87802 ####[facility] Basophils Auto #/vol (Bld) 0.6 % Normal 0.0-1.0 [facility] Comment on above: Performed By: #### 09173 ####[facility] Eosinophils Auto #/vol (Bld) 0.3 10*3/uL Normal 0.0-0.5 [facility] Comment on above: Performed By: #### 69758 ####[facility] [facility].[address] Eosinophils/100 WBC Auto (Bld) 4.0 % Normal 0.0-6.0 [facility] Comment on above: Performed By: #### 38315 ####[facility] Erythrocyte distribution width Auto Ratio (RBC) 13.3 % Normal 11.5-15.0 [facility] Comment on above: Performed By: #### 23451 ####[place] [address] Hematocrit Auto Volume Fraction (Bld) 41.7 % Normal 39.0-50.0 [facility] Comment on above: Performed By: #### 94749 ####[place] [address] Hemoglobin mass conc (Bld) 13.7 g/dL Normal 13.0-17.0 [facility] Comment on above: Performed By: #### 36536 ####[address] IMMATURE GRANS 0.3 % Normal 0.0-1.0 [facility] Comment on above: Performed By: #### 05082 ####[place] [address] Lymphocytes Auto #/vol (Bld) 1.7 10*3/uL Normal 1.2-4.0 [facility] Comment on above: Performed By: #### 22561 ####[place] [address] Lymphocytes/100 WBC Auto (Bld) 24.0 % Normal 20.0-45.0 [facility] Comment on above: Performed By: #### 58352 ####[facility] MCH Auto Entitic mass (RBC) 29.7 pg Normal 27.0-33.0 [facility] Comment on above: Performed By: #### 40513 ####[facility] MCHC Auto mass conc (RBC) 32.9 g/dL Normal 32.0-35.0 [facility] Comment on above: Performed By: #### 92915 ####[facility] MCV Auto Entitic volume (RBC) 90.3 fL Normal 82.0-98.0 [facility] Comment on above: Performed By: #### 43378 ####[place] [address] Monocytes Auto #/vol (Bld) 0.6 10*3/uL Normal 0.1-1.0 [facility] Comment on above: Performed By: #### 36586 ####[facility] MONOS 7.9 % Normal 5.0-12.0 [facility] Comment on above: Performed By: #### 97918 ####[place] [address] Neutrophils/100 WBC Auto (Bld) 63.2 % Normal 40.0-72.0 [facility] Comment on above: Performed By: #### 01465 ####[place] [address] Nucleated RBC/100 WBC Ratio (Bld) 0 % Normal 0-0 [facility] Comment on above: Performed By: #### 44529 ####[facility] PLAT CNT 209 10*3/uL Normal 150-400 [facility] Comment on above: Performed By: #### 71750 ####[facility] [facility].[address] RBC Auto #/vol (Bld) 4.62 10*6/uL Normal 4.20-5.70 [facility] Comment on above: Performed By: #### 97306 ####[facility] [facility].[address] WBC Auto #/vol (Bld) 6.93 10*3/uL Normal 4.00-10.60 [facility] Comment on above: Performed By: #### 44286 ####[facility] History and Physicalon 03-08 History and Physical MR#: [id number] Sheng [facility] Admitted: 03/08/2018 Date of : 1940 Attending Physician: Shiva Seay MD Room #: 3CD [id number] Discharge Date: HISTORY AND PHYSICALCHIEF COMPLAINT: Dizziness and vomiting.HISTORY OF PRESENT ILLNESS: This patient is 77-year-old male with pastmedical history of coronary artery disease, status post CABG 16 years ago,hypertension, hyperlipidemia, and diabetes, who was sent from [facility] because of possibility of ACS. The patient presented to [facility] complaining of dizziness and vomiting while he was working on [employer]. The patient stated that he had similar symptoms when he had hisheart attack 16 years ago that ended up having CABG. In the [facility], his EKG showed new T inversions in inferior leads, which theywere not there previously. The 1st troponin was negative. The ER doctorcalled his continuous improvement specialist, Dr. Simon, who [facility] The [...] Signed by:Shiva Seay MD 03/09/2018 11:33 A _CECELIA Singhate Dict: 03/08/2018/05:06 P/Lizbeth Singh Trans: 03/08/2018 05:31 P/mmoDN_JN:[id number] Normal [facility] LIVER BATTERYon 03-08-2018 Albumin mass conc 4.0 g/dL Normal 3.5-5.7 [facility] Comment on above: Order Comment: No: Do not add to previou s draw Performed By: #### 9 9909, 65371, 21958, 18325, 47583 ####[facility] [place] [address], [facility] ALKALINE PHOSPH 53 IU/L Normal 34-104 [facility] Comment on above: Order Comment: No: Do not add to previou s draw Performed By: #### 9 9909, 75533, 35024, 85968, 72255 ####[facility] [place] [address], [facility] ALT enzyme act/vol 21 U/L Normal 7-52 [facility] Comment on above: Order Comment: No: Do not add to previou s draw Performed By: #### 9 9909, 90481, 42162, 12612, 40442 ####[facility] [place] [address], [place] AST enzyme act/vol 19 U/L Normal 13-39 [facility] Comment on above: Order Comment: No: Do not add to previou s draw Performed By: #### 9 9909, 15281, 84407, 68028, 26878 ####[facility] [place] [address], [place] Bilirubin mass conc 0.8 mg/dL Normal 0.3-1.0 [facility] Comment on above: Order Comment: No: Do not add to previou s draw Performed By: #### 9 9909, 12468, 08309, 31847, 76269 ####[facility] [place] [address], [place] Bilirubin.direct mass conc 0.2 mg/dL Normal 0.0-0.2 [facility] Comment on above: Order Comment: No: Do not add to previou s draw Performed By: #### 9 9909, 23797, 98885, 62201, 17260 ####[facility] [place] [address], [facility] Protein mass conc 7.1 g/dL Normal 6.0-8.3 [facility] Comment on above: Order Comment: No: Do not add to previou s draw Performed By: #### 9 9909, 11277, 95943, 56915, 71937 ####[facility] [place] [address], [facility] MAGNESIUM BLOODon 03-08-2018 Magnesium mass conc 2.0 mg/dL Normal 1.9-2.7 [facility] Comment on above: Order Comment: No: Do not add to previou s draw Performed By: #### 9 9909, 29629, 02716, 68686, 25576 ####[facility] [place] [address], [facility] PHOSPHORUS BLOODon 8 Phosphate mass conc 3.2 mg/dL Normal 2.5-5.0 [facility] Comment on above: Order Comment: No: Do not add to previou s draw Performed By: #### 9 9909, 01856, 50268, 68728, 36692 ####[facility] [place] [address], [facility] POC GLUCOSE LABon 03-08-2018 Glucose mass conc 164 mg/dL High 70-100 [facility] Comment on above: Performed By: #### [id number] ####[facility] [place] [address], [facility] Glucose mass conc 114 mg/dL High 70-100 [facility] Comment on above: Performed By: #### 41205 ####[facility] PROTHROMBIN TIMEon 8 INR Coag RelTime (PPP) 1.11 {INR} Normal 0.91-1.16 [facility] Comment on above: Order Comment: No: [...] OF ACTION, CLINICALEFFECTIVENESS, AND OPTIMAL THERAPEUTIC RANGE. [id number];108:[id number]-246S. Performed By: #### 5 7307, 93199 ####[facility].[address] Prothrombin time (PT) Coag time (PPP) 14.3 s Normal 12.3-14.8 [facility] Comment on above: Order Comment: No: Do not add to previou s draw Result Comment: ALL RESULTS MUST BE INTERPRETED WITH RESPECT TO BLOOD DRAWING ARTIFACTOR DILUTION ERROR OF ANTICOAGULANT AT THE TIME OF SAMPLING. Performed By: #### 5 7307, 44675 ####[facility] TROPONIN-Ion 03-08-2018 Troponin I.cardiac mass conc 0.01 ng/mL Normal 0.00-0.04 [facility] Comment on above: Order Comment: No: Do not add to previou s draw Result Comment: REFE RENCE RANGES: 0.00 - 0.04 ng/ml NORMAL 0.05 - 0.50 ng/ml INDETERMINATE > 0.50 ng/ml CONSISTENT WITH AN M.I. Performed By: #### 9 9909, 73303, 18589, 16171, 83256 ####[facility] Vital Signs Date Time Vital Sign Value Performing Clinician Kristie kerr 02-15-2022 10:03-0400 Blood Pressure Location César Gordon Jr. [facility] 02-15-2022 10:03-0400 Diastolic blood pressure 66 mm[Hg] César Gordon Jr. [facility] 02-15-2022 10:03-0400 Heart rate 80 /min César Gordon Jr. [facility] 02-15-2022 10:03-0400 Respiratory rate 16 /min César Gordon Jr. [facility] 02-15-2022 10:03-0400 Systolic blood pressure 88 mm[Hg] César Gordon Jr. [facility] Encounters Encounter Date Encounter Type Care Provider Facility Start: 07-14-2023 End: 07-14-2023 ambulatory OREN SIMON [facility] Start: 03-13-2023 End: 03-13-2023 ambulatory LEATHA MARROQUIN [facility] Start: 12-15-2022 End: 12-15-2022 ambulatory HUANG YOUNGBLOOD . Facility:[facility] Start: 11-23-2022 End: 11-24-[address] DERRICK LOPEZ . Facility:[facility] Start: 10-25-2022 End: 10-27-2022 Evaluation and management of inpatient DR DERRICK LOPEZ . Facility:[facility] Start: 10-22-2022 End: 10-22-2022 ambulatory LEVAR CABA . Facility:[facility] Start: 10-13-2022 End: 10-14-[address] DERRICK LOPEZ . Facility:[facility] Start: 09-20-2022 End: 09-21-2022 ambulatory TASHA OROZCO Facility:[facility] Start: 09-20-2022 End: 09-20-2022 Patient encounter procedure TASHA OROZCO [facility] Start: 09-19-2022 End: 09-20-[address] DERRICK LOPEZ . Facility:[facility] Start: 09-12-2022 End: 09-12-2022 [facility] Start: 09-02-2022 End: 09-03-[address] DERRICK LOPEZ . Facility:[facility] Start: 07-20-2022 End: 07-21-[address] OREN SIMON Facility:[facility] Start: 07-14-[address] DERRICK LOPEZ . Facili ty:[facility] Start: 06-14-2022 End: 07-06-[address] DERRICK LOPEZ . Facility:[facility] Start: 05-16-2022 End: 05-17-[address] DERRICK LOPEZ . Facility:[facility] Start: 04-13-2022 End: 05-07-[address] DERRICK LOPEZ . Facility:[facility] Start: 04-01-2022 End: 04-01-[address] DERRICK LOPEZ . Facility:[facility] Start: 03-08-2022 End: 04-06-[address] DERRICK LOPEZ . Facility: Start: 02-15-2022 End: 02-16-2022 ambulatory César Gordon Facility:[facility] Start: 02-15-2022 End: 07-12-2022 Patient encounter procedure César Gordon Jr. [facility] Start: 02-09-[address] DERRICK LOPEZ . Facili ty:[facility] Start: 02-08-2022 End: 03-04-[address] DERRICK LOPEZ . Facility: Start: 02-03-2022 End: 02-04-[address] DERRICK LOPEZ . Facility:[facility] Start: 01-25-2022 End: 01-27-2022 Evaluation and management of inpatient DR DERRICK LOPEZ . Facility:[facility] Start: 01-12-2022 End: 01-13-[address] DERRICK LOPEZ . Facility:[facility] Start: 12-28-2021 End: 12-30-[address] DERRICK LOPEZ . Facility:[facility] Start: 12-22-2021 End: 12-23-[address] DERRICK LOPEZ . Facility: Start: 03-08-2018 End: 03-10-2018 Evaluation and management of inpatient ZAYRA RAMIREZ Facility:[facility] Procedures Date Procedure Procedure Detail Performing Clinician Start: 11-23-[address] BRIANNE LOPEZ . Comment on above: Performed By: #### V ITAD, PSASC ####[facility] [id number] [address]Dr. Yuki Diaz Start: 10-25-2022 Transfusion of Nonau tologous Red Blood Cells into Peripheral Vein, Percutaneous Approach DR DERRICK LOPEZ . Start: 06-14-[address] BRIANNE LOPEZ . Comment on above: Performed By: #### P SAD ####[facility] [address] [place] [address]Ut. Yuki Diaz Start: 03-09-2018 DILATION OF 1 COR AR T WITH DRUG-ELUT INTRA, PERC APPROACH OREN JORBFERCHO Start: 03-09-2018 FLUOROSCOPY OF L INT MAMM GRAFT USING OTH CONTRAST OREN JORBFERCHO Start: 03-09-2018 FLUOROSCOPY OF MULT COR A GRAFT USING OTH CONTRAST OREN SIMON Start: 03-09-2018 FLUOROSCOPY OF MULTI PLE CORONARY ARTERIES USING OTH CONTRAST ORNE SIMON Start: 03-30-2016 Cystourethroscopy [facility] dilation of urethral stricture César Gordon Jr. Comment on above: fulguration of the b ladder and prostate Start: 02-12-2016 Cystoscopy César paz Jr. Start: 09-08-2013 Transurethral prostatectomy César Gordon Jr. Open heart surgery César torres Jr. Placement of stent i n cardiac conduit César Gordon Jr. Immunizations Immunization Date Immunization Notes Care Provider Fa cili 06-07-2021 SARS-CoV-2 (COVID-19 ) mRNA BNT-162b2 vax César Gordon Jr. [facility] 05-13-2021 SARS-CoV-2 (COVID-19 ) mRNA BNT-162b2 vax TASHA OROZCO [facility] 05-10-2021 influenza virus vaccine, unspecified formulation TASHA OROZCO [facility] 12-05-2020 SARS-CoV-2 (COVID-19 ) mRNA BNT-162b2 vax César Gordon Jr. [facility] 11-05-2020 SARS-CoV-2 (COVID-19 ) mRNA BNT-162b2 vax César Gordon Jr. [facility] 10-02-2020 SARS-CoV-2 (COVID-19 ) mRNA BNT-162b2 vax TASHA OROZCO [facility] 09-04-2020 SARS-CoV-2 (COVID-19 ) mRNA BNT-162b2 vax TASHA OROZCO [facility] 05-06-2020 influenza virus vaccine, unspecified formulation TASHA OROZCO [facility] 05-30-2017 influenza, unspecifi ed formulation TASHA OROZCO [facility] 05-30-2017 pneumococcal conjuga te vaccine, 13 valent TASHA OROZCO [facility] 05-06-2016 influenza virus vaccine, unspecified formulation TASHA OROZCO [facility] Payers Date Payer Category Payer Private Health Insurance [id number] 1959 Self-pay 1940 Unknown [id number] 2.16.8 40.1.704427.3.579.2.727 1940 Unknown [id number] 2.16.8 40.1.249323.3.579.2.727 1942 Unknown [id number] 2.16.84 0.1.193466.3.579.2.593 1942 Unknown [id number] 2.16.84 0.1.606829.3.579.2.593 1942 Unknown [id number] 2.16.84 0.1.205789.3.579.2.593 1942 Unknown [id number] 2.16.84 0.1.453193.3.579.2.593 1942 Unknown [id number] 2.16.84 0.1.288802.3.579.2.593 1942 Unknown [id number] 2.16.84 0.1.730638.3.579.2.593 1942 Unknown [id number] 2.16.84 0.1.465600.3.579.2.593 1942 Unknown [id number] 2.16.84 0.1.378799.3.579.2.593 1942 Unknown [id number] 2.16.84 0.1.798699.3.579.2.593 1942 Unknown [id number] 2.16.84 0.1.645530.3.579.2.593 1942 Unknown [id number] 2.16.84 0.1.832816.3.579.2.593 1942 Unknown [id number] 2.16.84 0.1.667565.3.579.2.593 1942 Unknown [id number] 2.16.84 0.1.035874.3.579.2.593 1942 Unknown [id number] 2.16.84 0.1.094147.3.579.2.593 1942 Unknown [id number] 2.16.84 0.1.459495.3.579.2.593 1942 Unknown [id number] 2.16.84 0.1.914911.3.579.2.593 1942 Unknown [id number] 2.16.84 0.1.081114.3.579.2.593 1942 Unknown [id number] 2.16.84 0.1.214574.3.579.2.593 1942 Unknown [id number] 2.16.84 0.1.734840.3.579.2.593 1942 Unknown [id number] 2.16.84 0.1.845665.3.579.2.593 1942 Unknown [id number] 2.16.84 0.1.774622.3.579.2.593 1942 Unknown [id number] 2.16.84 0.1.369883.3.579.2.593 1942 Unknown [id number] 2.16.84 0.1.288506.3.579.2.593 1942 Unknown [id number] 2.16.84 0.1.511980.3.579.2.593 [facility] [id number] Social History Date Type Detail Facility Start: 02-15-2022 Tobacco smoking status Ex-smoker (fi nding) [facility] Sex Assigned At Male [facility] Functional Status Date Assessment Result Facility 02-15-2022 Functional Status N/A [facility] Clinical Notes 02-15-2022 to 07-14-2023 Note Date & Type Note Facility 07-14-2023 Note [facility] Subjective Sheng Bauer is a 83 y.o. year old male patient being seen for 3 mo follow up chronic systolic heart failure, CAD, and hypertension. He was admitted to [facility] in Apr 2023. Doing very well since then, as he denies chest pain, SOB, LE edema, and palpitations. Patient Active Problem List Diagnosis Coronary arteriosclerosis Hypertensive disorder Hx of CABG Chronic systolic heart failure ([facility]/HCC) Hx of deep venous thrombosis Diabetes mellitus [...] anemia, unspecified Major depressive disorder, recurrent, unspecified (CMS/[facility]) Limitation of activities due to disability Morbid [...] OM) in 2001. He has history of MD in 2001. He has hypertension on treatment. He has CKD. In 2017 he was admitted to [facility] of unstable angina and new onset T-wave inversions in the inferolateral leads. Cardiac cath was done and he underwent stenting of the circumflex with Synergy TONYA on 03/09/2018. He did get admitted in December 2019 to [facility] after a tree fell on him, with [...] left side. Heart (more content not included)... [facility] 03-13-2023 Note Eliquis was decrease d to 2.5 mg bid per PCP in light of CKD, bruising of extremities and noted fall earlier this year. 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 [facility] 03-13-2023 Note [facility] II-III, current ly euvolemic without exacerbation, weight is currently down from last visit and overall pt is doing well Continue GDMT- ASA, lipitor, coreg, entrestot and aldatone Diuretic therapy- bumex 2 mg daily Monitor daily weights, I&O, fluid restriction 1.5-2L/day, renal function and electrolytes [facility] 03-13-2023 Note Patient here for 6 m o follow up CAD, hypertension, CHF, and hx of DVT. He was admitted to [facility] in January 2023 for pneumonia. Then admitted [...] All other systems reviewed and are negative. [facility] 03-13-2023 Note [facility] C[facility] PROGR ESS [...] hx of DVT. He was admitted to [facility] in March s/p fall, January 2023 for pneumonia. Then [...] OM) in 2001. He has history of MD in 2001. He has hypertension on treatment. He has CKD with Cr previously around 1.5. In 2017 he was admitted to [facility] of unstable angina and new onset T-wave inversions in the inferolateral leads. Cardiac cath was done and he underwent stenting of the circumflex with Synergy TONYA on 03/09/2018. He did get admitted in December 2019 to [facility] after a tree fell on him, with [...] in the mo (more content not included)... [facility] 09-12-2022 Note [facility] Subjective Sheng Bauer is [...] OM) in 2001. He has history of MD in 2001. He has hypertension on treatment. He has CKD with Cr previously around 1.5. In 2017 he was admitted to [facility] of unstable angina and new onset T-wave inversions in the inferolateral leads. Cardiac cath was done and he underwent stenting of the circumflex with Synergy TONYA on 03/09/2018. He did get admitted in December 2019 to [facility] after a tree fell on him, with [...] amitriptyline (Elavil) 2 (more content not included)... [facility] 02-15-2022 Hospital Discharge instructions Patient Education [...] including vitamins, herbs, eye drops, creams, and hwjj-ogj-slzgvyl medicines. This also includes: ?Medicines to assist [...] 08/26/2005 Document Revised: 07/06/2018 Document Reviewed: 04/30/2018 [place] Patient Education 2020 [employer]. Follow Up Care 08/10/2021 09:51:10 With:Evan Ochoa MD, César Vega, URO Address: [facility] [address], [place] [address]- When:Within 6 Month(s) Comments:w/ psa [facility] Evaluation + Plan note Future Appointments Appointment Date:08/23/2022 10:30:00 AM Scheduled Provider:César Gordon Jr., MD Location:[facility] Appointment Type:URO Office Visit Diagnostic Tests PendingPSA Total 02/15/22 [facility] Hospital course Narrative No data available for this section [facility] Hospital Discharge instructions No data available for this section [facility] Progress note No data available for this section [facility] Summary Purpose Family History No Family History [...] and content) DATE CREATED AUTHOR 03/19/2018 [facility] DATE CREATED AUTHOR AUTHOR'S ORGANIZ ATION 09/21/2022 [facility] DATE CREATED AUTHOR AUTHOR'S ORGANIZ ATION 12/16/2022 [facility] [place] [facility] DATE CREATED AUTHOR AUTHOR'S ORGANIZ ATION 07/17/2023 [facility] Care Team (unrecognized sect ion and content) Personnel Name: Derrick Lopez MD Address: [address] [place] [address] Personnel Name: Derrick Lopez MD Address: Address: [address] [place] [address] FOR RECORDS PERTAINING TO PATIENTS WHO ARE [...] BE BASED ON THE PRIMARY CLINICAL RECORDS. [facility] [employer] [address] [facility]. provides no warranty or guarantee of the accuracy or completeness of information in this document.
--- NOTE | 2024-02-06 11:27 | XR_ITS ---
The [address] [address] Patient Name: JAJA FRANKLIN MRN: [id number] date: 1940 Sex: M Assigned Patient Location: LAB Current Patient Location: LAB Accession/Order Number: [id number] Exam Date: 02/06/2024 11:45 Report Date: 02/07/2024 08:35 At the request of: DERRICK AYALA Procedure: XR chest 2V EXAMINATION: XR chest 2V HISTORY: History Of Falling Z91.81 COMPARISON: XR chest 04/30/2023 FINDINGS: LUNGS: Underexpanded lungs with mild increased opacities within left lung base. VASCULATURE: No increased pulmonary vasculature. PLEURA: No pneumothorax, effusion, or pleural thickening. CARDIAC: No cardiomegaly or cardiac silhouette abnormality. MEDIASTINUM: Prior sternotomy. No suspicious widening. BONES: No fracture or visible bone lesion. OTHER: Negative. XR/XR chest 2V IMPRESSION: 1. New mild lingular infiltrates. Electronically authenticated by: AWAIS TELLO Date: 02/07/2024 08:35
--- NOTE | 2024-02-06 11:27 | XR_ITS ---
The [address] [address] Patient Name: JAJA FRANKLIN MRN: [id number] date: 1940 Sex: M Assigned Patient Location: LAB Current Patient Location: [place] Accession/Order Number: [id number] Exam Date: 02/06/2024 11:45 Report Date: 02/07/2024 08:33 At the request of: DERRICK AYALA Procedure: XR hip LT 2V w/ pelvis PROCEDURE: XR hip LT 2V w/ pelvis HISTORY: History Of Falling Z91.81 COMPARISON: XR hip left 04/30/2023 FINDINGS: BONES:No fracture, dislocation, bone lesion. Moderate degenerative changes of hip joints bilaterally. Degenerative changes of the visible lumbar spine and sacroiliac joints. SOFT TISSUES:No visible soft tissue swelling. EFFUSION:None visible. OTHER: Atherosclerotic disease. XR/XR hip LT 2V w/ pelvis IMPRESSION: 1. No acute bone abnormality. 2. Grossly stable moderate degenerative joint disease. Electronically authenticated by: AWAIS TELLO Date: 02/07/2024 08:33
[2024-02-06 11:31] LABS: Basophils Percent Auto 0.2 % (0.2-2.0); Eosinophils Absolute Auto 0.1 10^3/uL (0.0-0.7); Hematocrit 38.8 % (42.0-54.0); Hemoglobin 12.6 g/dL (14.0-18.0); Immature Granulocytes Abs Auto 0.06 10^3/uL (0.00-0.03); Immature Granulocytes Pct Auto 0.7 % (0.0-0.5); Lymphocytes Absolute Auto 1.2 10^3/uL (1.2-3.8); Lymphocytes Percent Auto 13.8 % (20.5-60.0); Mean Corpuscular HGB Conc 32.5 g/dL (29.9-35.2); Mean Corpuscular Hemoglobin 32.6 pg (25.9-34.0); Mean Corpuscular Volume 100.3 fL (80.0-94.0); Mean Platelet Volume 9.7 fL (9.5-13.5); Monocytes Absolute Auto 0.8 10^3/uL (0.3-0.8); Monocytes Percent Auto 9.5 % (1.7-12.0); Neutrophils Absolute Auto 6.5 10^3/uL (1.4-6.5); Neutrophils Percent Auto 74.8 % (43.0-75.0); Platelet Count 191 10^3/uL (150-450); Red Blood Count 3.87 10^6/uL (4.70-6.10); Red Cell Distribution Width 14.8 % (11.0-15.0); White Blood Count 8.7 10^3/uL (4.0-11.0)
[2024-02-06 11:53] LABS: D Dimer 0.81 mg/L FEU (<=0.59)
[2024-02-06 12:08] LABS: Free T4 0.98 ng/dL (0.76-1.46)
[2024-02-06 12:09] LABS: Alanine Aminotransferase 87 U/L (16-63); Albumin Globulin Ratio 0.9; Albumin Level 3.2 g/dL (3.4-5.0); Alkaline Phosphatase 100 U/L (46-116); Anion Gap 9.8; Aspartate Amino Transferase 24 U/L (15-37); BUN Creatinine Ratio 23.8; Bilirubin Total 1.1 mg/dL (0.2-1.0); Calcium 9.1 mg/dL (8.5-10.1); Carbon Dioxide 33.8 mmol/L (21.0-32.0); Chloride 108 mmol/L (98-107); Estimated GFR (African America 41 (>=60); Estimated GFR (Non-African Ame 34 (>=60); Globulin 3.4 g/dL; Glucose 124 mg/dL (74-106); Magnesium 2.1 mg/dL (1.8-2.4); Potassium 3.6 mmol/L (3.5-5.1); Sodium 148 mmol/L (136-145); Thyroid Stimulating Hormone 3.462 uIU/mL (0.358-3.740); Total Protein 6.6 g/dL (6.4-8.2); Troponin I High Sensitivity 74.7 pg/mL (4.0-76.1)
== END 2024-02-06 10:46 | disposition home or self-care (01) ==
PROVIDERS: PCP Family Medicine; Visit Provider Family Medicine
DX: Z91.81 History of falling (principal)
CPT/HCPCS: 36415; 71046; 73502; 80053; 81001; 83735; 83880; 84439; 84443; 84484; 85025; 85378; 87086

== ENCOUNTER 2024-02-06 11:52 | Inpatient (IN) | payer MEDICARE, SELFPAY ==
[2024-02-06] VITALS (20 sets, daily range): BP systolic 138–222; BP diastolic 66–139; PULSE 71–844; TEMP 36.3–36.8; O2SAT 92–98; BMI 40.7; BMI 32.1
--- NOTE | 2024-02-06 12:08 | ED_ITS ---
HPI HPI - General Adult General Chief complaint: Shortness of Breath/Dyspnea Stated complaint: SHORTNESS OF BREATH/ CHEST PAIN/ HIP PAIN Time Seen by Provider: 02/06/24 11:54 Source: patient Mode of arrival: Wheelchair Limitations: altered mental status and physical limitation History of Present Illness HPI narrative: 83-year-old male presents for weak and falling. This has been an ongoing issue for perhaps days going into weeks. He was seen by his PCP who ordered some outpatient tests and directed him here to the emergency department with the intention of admitting him. The patient lives by himself at home and has not been able to take care of himself well. He was unable to stand for his chest x- ray and they had to lay down flat to get it done because of weakness in his legs. No fever or vomiting. Related Data Home Medications ?Medication ?Instructions ?Recorded ?Confirmed atorvastatin 20 mg tablet 20 mg PO .QHS 01/28/23 02/06/24 ferrous sulfate 325 mg (65 mg 325 mg PO QPM 01/28/23 02/06/24 iron) tablet (FeroSul) levothyroxine 50 mcg tablet 50 mcg PO .qhs 01/28/23 02/06/24 aspirin 81 mg tablet,delayed 81 mg PO DAILY 01/30/23 02/06/24 release (Adult Aspirin Regimen) sacubitril 49 mg-valsartan 51 mg 1 tab PO BID 01/30/23 02/06/24 tablet (Entresto) amitriptyline 50 mg tablet 50 mg PO BEDTIME 04/30/23 02/06/24 carvedilol 25 mg tablet 25 mg PO BID 04/30/23 02/06/24 spironolactone 25 mg tablet 12.5 mg PO DAILY 04/30/23 02/06/24 bumetanide 2 mg tablet mg 02/06/24 Previous Rx's ?Medication ?Instructions ?Recorded apixaban 5 mg tablet (Eliquis) 2.5 mg (1/2 x 5 mg) PO BID #60 tabs 02/02/23 acetaminophen 500 mg tablet 1,000 mg (2 x 500 mg) PO Q6H PRN 02/08/23 (Tylenol Extra Strength) Pain -Mild #10 tabs insulin aspart U-100 100 unit/mL 2 - 14 unit (0.02 - 0.14 mL) 02/08/23 (3 mL) subcutaneous pen (Novolog subcut ACHS #15 mL FlexPen U-100 Insulin aspart) isosorbide mononitrate 30 mg 30 mg PO BID #60 tabs 02/08/23 tablet,extended release 24 hr insulin glargine 100 unit/mL 20 unit (0.2 mL) subcut QAM #10 mL 05/02/23 subcutaneous solution Allergies Allergy/AdvReac Type Severity Reaction Status Date / Time No Known Drug Allergies Allergy Verified 02/06/24 12:00 Opioid HPI Opioid Management Most Recent Opioid Data: Last Pain Scale 3 05/01/23 07:40 Last Pain Intensity 0 02/08/23 10:25 Review of Systems ROS Narrative A ten point review of systems is negative except as noted above. 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 ?N18.6 - End stage renal disease (ICD-10) ?D63.1 - Anemia in chronic kidney disease (ICD-10) CKD stage 3 due to type 2 diabetes mellitus ?E11.22 - Type 2 diabetes mellitus with diabetic chronic kidney disease (ICD- 10) ?N18.30 - Chronic kidney disease, stage 3 unspecified (ICD-10) Hypotension due to medication ?I95.2 - Hypotension due to drugs (ICD-10) Acute hypotension ?I95.9 - Hypotension, unspecified (ICD-10) Cellulitis ?L03.90 - Cellulitis, unspecified (ICD-10) Diabetes ?E11.9 - Type 2 diabetes mellitus without complications (ICD-10) Afib ?I48.91 - Unspecified atrial fibrillation (ICD-10) CHF (congestive heart failure) ?I50.9 - Heart failure, unspecified (ICD-10) Hypothyroidism ?E03.9 - Hypothyroidism, unspecified (ICD-10) HTN (hypertension) ?I10 - Essential (primary) hypertension (ICD-10) Acute renal failure ?N17.9 - Acute kidney failure, unspecified (ICD-10) Peripheral neuropathy ?G62.9 - Polyneuropathy, unspecified (ICD-10) Family History Other Family history of diabetes mellitus Social History Smoking status: Former smoker Non-prescribed substance use: denies use Highest level of school completed/degree received: high school graduate Are you now , , , , never or living with a partner: In a typical week, how many times do you talk on the telephone with family, friends, or neighbors: 3 or more times per week How often do you get together with friends or relatives: twice per week How often do you attend episcopalian or judaism services: 1-3 times per year Do you belong to any clubs or organizations such as episcopalian groups unions, [employer] or athletic groups, or school groups: no Total score: 1 Score interpretation: A score of less than or equal to 1 indicates the most socially isolated. Little interest or pleasure in doing things: several days Feeling down, depressed, or hopeless: several days Feel stressed/tense/nervous/anxious/difficulty sleeping: not at all Life stressors: recent of family or friend Do you think of yourself as: straight/heterosexual Gender Identity: male Exam Narrative Exam Narrative: Nurses note and vital signs reviewed and patient is not hypoxic. General: The patient appears well and in no apparent distress. Patient is resting comfortably on cart. Skin: Warm, dry, no pallor noted. There is no rash noted. Head: Normocephalic, atraumatic Eye: Normal conjunctiva, no drainage Ears, Nose, Mouth, and Throat: oral mucosa is moist. Nares patent. Cardiovascular: Regular Rate and Rhythm Respiratory: Patient is in no distress, no accessory muscle use, lungs are clear to auscultation, no wheezing, rales or rhonchi Back: non-tender GI: Soft obese and nontender. A few bruises from home injections. Musculoskeletal: He has bilateral ankle edema. Bruises of various ages on his arms and legs. Neurological: Awake and alert, appears generally weak but is able to move all 4 extremity Psychiatric: Cooperative Constitutional Vital Signs, click to edit/add: Last Vital Signs Temp 97.8 F 02/06/24 12:00 Pulse 82 02/06/24 13:10 Resp 31 H 02/06/24 13:10 BP 177/108 H 02/06/24 13:00 Pulse Ox 97 02/06/24 13:10 O2 Del Method Room Air 02/06/24 12:00 Course Vital Signs Vital signs: Vital Signs Temperature 97.8 F 02/06/24 12:00 Pulse Rate 82 02/06/24 12:00 Respiratory Rate 20 02/06/24 12:00 Blood Pressure 217/121 H 02/06/24 12:00 Pulse Oximetry 97 02/06/24 12:00 Oxygen Delivery Method Room Air 02/06/24 12:00 Temperature 97.8 F 02/06/24 12:00 Pulse Rate 82 02/06/24 13:10 Respiratory Rate 31 H 02/06/24 13:10 Blood Pressure 177/108 H 02/06/24 13:00 Pulse Oximetry 97 02/06/24 13:10 Oxygen Delivery Method Room Air 02/06/24 12:00 Medical Decision Making MDM Narrative Medical decision making narrative: Blood work is nonspecific. X-rays of chest and hip are pending. I have spoken to Dr. Lopez and the patient is being admitted. Differential Diagnosis Differential Diagnosis: CHF, pneumonia, fluid overload Lab Data Lab results reviewed: Yes I reviewed the patient's lab results ECG Data Attestation: I personally reviewed and interpreted this ECG as follows: (EKG on my interpretation shows normal sinus rhythm without acute change and rate of 81) Discharge Plan Discharge Chief Complaint: Shortness of Breath/Dyspnea Clinical Impression: Generalized weakness, Frequent falls, Dyspnea Prescriptions / Home Meds: No Action atorvastatin 20 mg tablet 20 mg PO .QHS ferrous sulfate [FeroSul] 325 mg (65 mg iron) tablet 325 mg PO QPM levothyroxine 50 mcg tablet 50 mcg PO .qhs Entresto 49-51 mg tablet 1 tab PO BID Patient Comments: recieves samples from Dr. Lopez's office aspirin [Adult Aspirin Regimen] 81 mg tablet,delayed release (DR/EC) 81 mg PO DAILY Hold Instructions: Doctor's Order Eliquis 5 mg Tablet 2.5 mg PO BID Qty: 60 0RF Patient Comments: recieves samples from Dr. Lopez's office isosorbide mononitrate 30 mg Tablet Extended Release 24 Hr 30 mg PO BID Qty: 60 0RF acetaminophen [Tylenol Extra Strength] 500 mg Tablet 1,000 mg PO Q6H PRN (Reason: Pain -Mild) Qty: 10 0RF insulin aspart U-100 [Novolog FlexPen U-100 Insulin] 100 unit/mL (3 mL) Insulin Pen 2 - 14 unit subcut ACHS Qty: 15 0RF amitriptyline 50 mg tablet 50 mg PO BEDTIME spironolactone 25 mg tablet 12.5 mg PO DAILY Hold Instructions: Doctor's Order carvedilol 25 mg tablet 25 mg PO BID insulin glargine 100 unit/mL solution 20 unit subcut QAM Qty: 10 0RF bumetanide 2 mg tablet Print Language: [place] Referrals: Yao Lopez MD [Primary Care Provider] - 1 week
--- NOTE | 2024-02-06 12:11 | ECG_ITS ---
[facility] Test Date: 2024-02-06 Pat Name: AJJA FRANKLIN Department: Room: - Gender: Male [employer]ig[employer]: : 1940 Requested By: DERRICK AYALA Order Number: [id number] Reading MD: PEBBLES LÓPEZ Measurements Intervals [place] Rate: 81 P: -30 [place]: 182 QRS: 23 QRSD: 84 T: 214 QT: 396 QTc: 434 Interpretive Statements 1100 Sinus rhythm Chronic inferolateral ST/T wave changes, can't exclude myocardial ischemia 9150 abnormal ECG Unchanged from previous tracing of 04/30/23 Electronically Signed On 02-07-2024 6:47:57 EDT by PEBBLES LÓPEZ
--- OUTSIDE RECORDS SUMMARY | 2024-02-06 12:30 | XMS_ITS | CCD ---
Author Organization [facility] Care Team Providers Care Lpn Medical Assistant Name Role Phone AHMED, ZAYRA Unavailable Unavailable AHMED, ZAYRA Unavailable Unavailable LUCY DERRICK Unavailable Unavailable HAYJAZLYN Unavailable Unavailable SC Unavailable Unavailable UNKNOWN, PROVIDER Unavailable Unavailable Derrick [...] Consulting Unavailable DIAB ., LEVAR Consulting Unavailable COATAllison, REDD Consulting Unavailable DIAB [...] DR MEZA Admitting Unavailable HOY ., DR MZEA Consulting Unavailable [...] Medication Allergies] Propensity to adverse reactions (disorder) [facility] Medications Current Medications Medication Drug Class(es) [...] myocardial infarction; 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] Onset: [...] Onset: 11-30-2022 Chronic Other aftercare (2 sources) 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 of antithrombotics/antip latelets; 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: [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 of aspirin] Onset: 03-08-2018 Episodic Other aftercare (1 source) Other care home (current) drug therapy; 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: [OTH RETIREMENT CURRENT DRUG THERAPY] Onset: 12-16-2022 Episodic Other aftercare (1 source) 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 of insulin; 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] Onset: 12-16-2022 Episodic Other aftercare (1 source) 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 of aspirin; 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: [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] Onset: 11-30-2022 Episodic [...] UNSPECIFIED] Onset: 12-16-2022 Chronic Unclassified (1 source) group home (current) use of oral hypoglycemic drugs; 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: [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 [employer] (CURRENT) USE OF ORAL HYPOGLYCEMIC DRUGS] Onset: [...] Range Facility Office Visiton 07-14-2023 Follow-up visit [id number] Nohelia Bauer Lauren 1940 M Date Provider Department Center 07/14/2023 OREN PEDRO KWASI Borja Family History Problem Relation Age of Onset Coronary artery disease Mother Family Status - Relation Status Age at Mother Level of Service:78627 SC OFFICE/OUTPATIENT ESTABLISHED LOW MDM 20-29 MIN Normal [facility] Office Visiton 03-13-2023 Follow-up visit [id number] Nohelia Bauer Lauren 1940 M Date Provider Department Center 03/13/2023 LEATHA GONZALEZ KWASI Vald[facility] Family History Problem Relation Age of Onset Coronary artery disease Mother Family Status - Relation Status Age at Mother Level of Service:43960 SC OFFICE/OUTPATIENT ESTABLISHED MOD MDM 30-39 MIN Normal [facility] PSA, FREE AND TOTAL RATIOon 11-24-2022 % Free PSA 33.9 % Normal [facility] Comment on above: Result Comment: The table [...] of men. Performed By: #### P SAFREE ####[facility] T[address] [place], [place] [address]OdBebo Diza Prostate specific Ag [Mass/Vol] 6.2 ng/mL Critically high 0.0-4.0 [facility] Comment on above: Result Comment: Aye ECLIA methodology. .According to the [place] [employer], Serum PSA shoulddecrease and remain [...] malignant disease. Performed By: #### P SAFREE ####[facility] Lyglcmdbbg4[address] [place] [address]Dr. Yuki iDaz PSA, Free 2.10 ng/mL Normal N/A [facility] Comment on above: Result Comment: Aye ECLIA methodology. Performed By: #### P SAFREE ####[facility] Fqjxwirvwb25[address] [place] [address]Dr. Yuki Diaz CBC AUTO DIFFon 11-23-2022 BASO # 0.0 103/ul Normal 0.0-0.1 [facility] Comment on above: Performed By: #### CBC ####[facility] [address] [place], [place] [address]Dr. Yuki Diaz Basophils/100 WBC (Bld) 0.3 % Normal 0.2-2.0 [facility] Comment on above: Performed By: #### CBC ####[facility] Jmdwaxyhqw[address] [place], [place] [address]Dr. Yuki Diaz EO # 0.3 103/ul Normal 0.0-0.7 [facility] Comment on above: Performed By: #### CBC ####[facility] Rhivocujsg[address] [place], [place] [address]Dr. Yuki Diaz Eosinophils/100 WBC (Bld) 4.7 % Normal 0.9-7.0 [facility] Comment on above: Performed By: #### CBC ####[facility] Pbziiesknv[address] [place], [place] [address]Dr. Yuki Diaz Erythrocyte distribution width (RBC) [Ratio] 15.6 % Critically high 11.0-15.0 [facility] Comment on above: Performed By: #### CBC ####[facility] Rpgpjcxmv[address] [place], [place] [address]Dr. Yuki Diaz Hematocrit (Bld) [Volume fraction] 33.5 % Critically low 42.0-54.0 [facility] Comment on above: Performed By: #### CBC ####[facility] ital Xqqwmubxgn4323 [place] [address]Dr. Yuki Diaz Hemoglobin (Bld) [Mass/Vol] 10.0 g/dL Critically low 14.0-18.0 [facility] Comment on above: Performed By: #### CBC ####[facility] ital Fcrhhxjhfk7537 [place] [address]Dr. Yuki Diaz IG # 0.03 10e3/ul Normal 0.00-0.03 [facility] Comment on above: Performed By: #### CBC ####[facility] ital Oexorfkjkn0829 [place] [address]Dr. Yuki Diaz IG % 0.5 % Normal 0.0-0.5 [facility] Comment on above: Performed By: #### CBC ####[facility] ital Atwleuylwt6[address] [place] [address]Dr. Monsealyssa Diaz LYMPH # 1.5 103/ul Normal 1.2-3.8 [facility] Comment on above: Performed By: #### CBC ####[facility] ital Djhpavdqyg5419 [place] [address]Dr. Yuki Diaz Lymphocytes/100 WBC (Bld) 22.6 % Normal 20.5-60.0 [facility] Comment on above: Performed By: #### CBC ####[facility] Pzaoeowvrf4[address] [place] [address]Dr. Monsealyssa Diaz MANUAL DIFF REQ NO Normal [facility] Comment on above: Performed By: #### CBC ####[facility] Rpbteibfdg9184 [place] [address]Dr. Yuki Diaz MCH (RBC) [Entitic mass] 27.9 pg Normal 25.9-34.0 [facility] Comment on above: Performed By: #### CBC ####[facility] ital Isgizmills1848 [place] [address]Dr. Yuki Diaz MCHC (RBC) [Mass/Vol] 29.9 g/dL Normal 29.9-35.2 [facility] Comment on above: Performed By: #### CBC ####[facility] ital Unkngwcxbw6396 [place] [address]Dr. Yuki Diaz MCV (RBC) [Entitic vol] 93.6 fL Normal 80.0-94.0 [facility] Comment on above: Performed By: #### CBC ####[facility] ital Oprnneysfl8684 [place] [address]Dr. Yuki Diaz MONO # 0.8 103/ul Normal 0.3-0.8 [facility] Comment on above: Performed By: #### CBC ####[facility] ital Uwcqmiybyo4816 [place] [address]Dr. Yuki Diaz Monocytes/100 WBC (Bld) 12.6 % Critically high 1.7-12.0 [facility] Comment on above: Performed By: #### CBC ####[facility] Yfehfojisc1627 [place] [address]Dr. Yuki Diaz NEUT # 3.9 103/ul Normal 1.4-6.5 [facility] Comment on above: Performed By: #### CBC ####[facility] Apeqajltrb2073 [place] [address]Dr. Yuki Diaz Neutrophils/100 WBC (Bld) 59.3 % Normal 43.0-75.0 [facility] Comment on above: Performed By: #### CBC ####[facility] Crqrvvpxle5423 [place] [address]Dr. Yuki Diaz Platelet mean volume (Bld) [Entitic vol] 10.1 fL Normal 9.5-13.5 [facility] Comment on above: Performed By: #### CBC ####[facility] ital Dhfhsxtdzg5051 [place] [address]Dr. Yuki Diaz PLT 231 103/ul Normal 150-450 [facility] Comment on above: Performed By: #### CBC ####[facility] Tjidtywybv5288 [place] [address]Dr. Yuki Diaz RBC 3.58 106/ul Critically low 4.70-6.10 [facility] Comment on above: Performed By: #### CBC ####[facility] Oewmbewxjm4069 [place] [address]Dr. Yuki Diaz WBC 6.6 103/ul Normal 4.0-11.0 [facility] Comment on above: Performed By: #### CBC ####[facility] Gxkqbvqiaj5092 [place] [address]Dr. Yuki Diaz FREE T3on 11-23-2022 FREE T3 2.20 pg/mlL Normal 2.18-3.98 [facility] Comment on above: Performed By: #### CMP, FT3, TSH, T4, LI PID ####[facility] Znzthsgdbk3481 [place] [address]Dr. Yuki Diaz GLYCOHEMOGLOBIN A1Con 2022 ADA RECOMMENDATION SEE BELOW Normal [facility] Comment on above: Result Comment: ADA RECOMMENDED LIMIT 4. 0 - 6.0 ADA THERAPEUTIC TARGET < 7.0 ACTION SUGGESTED > 7.0 Performed By: #### A 1C ####[facility] [address] [place], [place] [address]Dr. Yuki Diaz Glucose [Mass/Vol] 171 mg/dL Normal [facility] Comment on above: Performed By: #### A1C ####[facility] Tpsquklwnd9066 [place] [address]Dr. Yuki Diaz HbA1c (Bld) [Mass fraction] 7.6 % Critically high 4.5-6.2 [facility] Comment on above: Performed By: #### A1C ####[facility] Hkimdvjjli2426 [place] [address]Dr. Yuki Diaz LIPID PROFILEon 11-23-2022 CHOL-HDL RATIO NORM SEE BELOW Normal [facility] Comment on above: Result Comment: 3.3 - 4.4 LOW RISK 4.4 - 7.1 AVERAGE RISK 7.1 - 11.0 MODERATE RISK >11.0 HIGH RISK Performed By: #### C MP, FT3, TSH, T4, LIPID ####[facility] Cejzfhvtbl2183 [place] [address]Dr. Yuki Diaz Cholesterol [Mass/Vol] 91 mg/dL Normal <=200 [facility] Comment on above: Performed By: #### CMP, FT3, TSH, T4, LI PID ####[facility] Pstdkzxfmf8425 [place] [address]Dr. Yuki Diaz Cholesterol in HDL [Mass/Vol] 51 mg/dL Normal 40-60 [facility] Comment on above: Performed By: #### CMP, FT3, TSH, T4, LI PID ####[facility] Wqcxqkudke9765 [place] [address]Dr. Yuki Diaz Cholesterol in LDL [Mass/Vol] 27.2 mg/dL Normal [facility] Comment on above: Performed By: #### CMP, FT3, TSH, T4, LI PID ####[facility] Fjtaipinkb[address] [place], [place] [address]Dr. Yuki Diaz Cholesterol.tota l/Cholesterol in HDL [Mass ratio] 1.8 {ratio} Normal [facility] Comment on above: Performed By: #### CMP, FT3, TSH, T4, LI PID ####[facility] Avqacqjibv[address] [place], [place] [address]Dr. Yuki Diaz HDL NORMAL > or = 60 mg/dl - LO W CARDIOVASCULAR RISK <40 mg/dl - HIGH CARDIOVASCULAR RISK Normal [facility] Comment on above: Performed By: #### CMP, FT3, TSH, T4, LI PID ####[facility] Wnsamtythy0504 [place] [address]Dr. Yuki Diaz LDL CALC NORMAL SEE BELOW Normal [facility] Comment on above: Result Comment: <100 mg/dl OPTIMAL 100 - 129 mg/dl NEAR OR ABOVE OPTIMAL 130 - 159 mg/dl BORDERLINE HIGH 160 - 189 mg/dl HIGH >190 mg/dl VERY HIGH Performed By: #### C MP, FT3, TSH, T4, LIPID ####[facility] [address]xc[address] [place], [place] [address]Dr. Yuki Diaz Triglyceride [Mass/Vol] 64 mg/dL Normal <=150 [facility] Comment on above: Performed By: #### CMP, FT3, TSH, T4, LI PID ####[facility] Akmuejfdgs[address] [place], [place] [address]Dr. Yuki Diaz VLDL CALC 12.8 mg/dL Normal [facility] Comment on above: Performed By: #### CMP, FT3, TSH, T4, LI PID ####[facility] [address]tkcebzwaa[address] [place], [place] [address]Dr. Yuki Diaz PROF 14(COMP METB)on 023 Albumin [Mass/Vol] 2.9 g/dL Critically low 3.4-5.0 [facility] Comment on above: Performed By: #### CMP, FT3, TSH, T4, LI PID ####[facility] Bzlgsvhlea[address] [place], [place] [address]Dr. Yuki Diaz Albumin/Globulin [Mass ratio] 0.7 {ratio} Normal [facility] Comment on above: Performed By: #### CMP, FT3, TSH, T4, LI PID ####[facility] Ejgvdbbrpo[address] [place], [place] [address]Dr. Yuki Diaz ALP [Catalytic activity/Vol] 95 U/L Normal 46-116 [facility] Comment on above: Performed By: #### CMP, FT3, TSH, T4, LI PID ####[facility] Lsesrlzdtq[address] [place], [place] [address]Dr. Yuki Diaz ALT [Catalytic activity/Vol] 15 U/L Critically low 16-63 [facility] Comment on above: Performed By: #### CMP, FT3, TSH, T4, LI PID ####[facility] Qnzwesxvcs[address] [place], [place] [address]Dr. Yuki Diaz Anion gap [Moles/Vol] 13.2 mmol/L Normal [facility] Comment on above: Performed By: #### CMP, FT3, TSH, T4, LI PID ####[facility] Xuscqhtzff[address] [place], [place] [address]Dr. Yuki Diaz AST [Catalytic activity/Vol] 10 U/L Critically low 15-37 [facility] Comment on above: Performed By: #### CMP, FT3, TSH, T4, LI PID ####[facility] Tirbnrleaf[address] [place], [place] [address]Dr. Yuki Diaz Bilirubin [Mass/Vol] 0.7 mg/dL Normal 0.2-1.0 [facility] Comment on above: Performed By: #### CMP, FT3, TSH, T4, LI PID ####[facility] W[address]sqxoihn[address] [place], [place] [address]Dr. Yuki Diaz Calcium [Mass/Vol] 8.9 mg/dL Normal 8.5-10.1 [facility] Comment on above: Performed By: #### CMP, FT3, TSH, T4, LI PID ####[facility] Cl[address]ood[address] [place], [place] [address]Dr. Yuki Diaz Chloride [Moles/Vol] 105 mmol/L Normal 98-107 [facility] Comment on above: Performed By: #### CMP, FT3, TSH, T4, LI PID ####[facility] Jdouedmbig[address] [place], [place] [address]Dr. Yuki Diaz CO2 [Moles/Vol] 30.0 mmol/L Normal 21.0-32.0 [facility] Comment on above: Performed By: #### CMP, FT3, TSH, T4, LI PID ####[facility] Klzuadfhpm[address] [place], [place] [address]Dr. Yuki Diaz Creatinine [Mass/Vol] 2.36 mg/dL Critically high 0.70-1.30 [facility] Comment on above: Performed By: #### CMP, FT3, TSH, T4, LI PID ####[facility] Xfdnxkqqle[address] [place], [place] [address]Dr. Yuki Diaz EGFR-AF DJIBOUTIAN 32 mL/min/1.73m2 Critically low >=60 [facility] Comment on above: Performed By: #### CMP, FT3, TSH, T4, LI PID ####[facility] Q[address]adelhkn[address] [place], [place] [address]Dr. Yuki Diaz EGFR-NON AF DJIBOUTIAN 27 mL/min/1.73m2 Critically low >=60 [facility] Comment on above: Performed By: #### CMP, FT3, TSH, T4, LI PID ####[facility] Sojmrwfgyo[address] [place], [place] [address]Dr. Yuki Diaz Globulin (S) [Mass/Vol] 4.2 g/dL Normal [facility] Comment on above: Performed By: #### CMP, FT3, TSH, T4, LI PID ####[facility] Pmxbsdnbds3153 [place] [address]Dr. Yuki Diaz Glucose [Mass/Vol] 96 mg/dL Normal 74-106 [facility] Comment on above: Performed By: #### CMP, FT3, TSH, T4, LI PID ####[facility] Xpivocauae[address] [place], [place] [address]Dr. Yuki Diaz Potassium [Moles/Vol] 4.2 mmol/L Normal 3.5-5.1 [facility] Comment on above: Performed By: #### CMP, FT3, TSH, T4, LI PID ####[facility] Chkqiwbxrl[address] [place], [place] [address]Dr. Yuki Diaz Protein [Mass/Vol] 7.1 g/dL Normal 6.4-8.2 [facility] Comment on above: Performed By: #### CMP, FT3, TSH, T4, LI PID ####[facility] Aqeqkidjaa[address] [place], [place] [address]Dr. Yuki Diaz Sodium [Moles/Vol] 144 mmol/L Normal 136-145 [facility] Comment on above: Performed By: #### CMP, FT3, TSH, T4, LI PID ####[facility] [address]fms[address]hrw[address] [place], [place] [address]Dr. Yuki Diaz Urea nitrogen [Mass/Vol] 28.0 mg/dL Critically high 7.0-18.0 [facility] Comment on above: Performed By: #### CMP, FT3, TSH, T4, LI PID ####[facility] Wnxijqmqkp[address] [place], [place] [address]Dr. Yuki Diaz Urea nitrogen/Creatin ine [Mass ratio] 11.9 mg/mg Normal [facility] Comment on above: Performed By: #### CMP, FT3, TSH, T4, LI PID ####[facility] Fngzeftnkz[address] [place], [place] [address]Dr. Yuki Diaz T4on 11-23-2022 T4 [Mass/Vol] 7.70 ug/dL Normal 4.50-12.10 [facility] Comment on above: Performed By: #### CMP, FT3, TSH, T4, LI PID ####[facility] Bthlyfxywj3079 [place] [address]Dr. Yuki Diaz TSHon 11-23-2022 TSH 2.577 uIU/mL Normal 0.358-3.74 0 [facility] Comment on above: Performed By: #### CMP, FT3, TSH, T4, LI PID ####[facility] Qdpcqiprrf[address] [place], [place] [address]Dr. Yuki Diaz VITAMIN D 25 OHon 11-23-2022 VIT D 25-OH 35.8 ng/mL Normal [facility] Comment on above: Performed By: #### VITAD, PSASC ####[facility] [address]rrtjapz[address] [place], [place] [address]Dr. Yuki Diaz VIT D RANGES SEE BELOW Normal [facility] Comment on above: Result Comment: <20 ng/mL Vit D deficien t 20 - <30 ng/mL Vit D insufficient 30 - 100 ng/mL Vit D sufficient >100 ng/mL Potential Toxicity Performed By: #### V ITAD, PSASC ####[facility] [address]ghrkpnam[address] [place], [place] [address]Dr. Yuki Diaz BNPon 10-27-2022 Natriuretic peptide B (Bld) [Mass/Vol] 6821.0 pg/mL Critically high <=1,800.0 [facility] Comment on above: Performed By: #### CMP, BNP ####[facility] Ydldgmrgab[address] [place], [place] [address]Dr. Yuki Diaz CBC W MANUAL DIFFon 10-28-19 23 ACANTHOCYTES 1+ Normal [facility] Comment on above: Performed By: #### CBCMAN ####[facility] Gkrxhityqc[address] [place], [place] [address]Dr. Yuki Diaz ATYPICAL LYMPH # Normal [facility] Comment on above: Performed By: #### CBCMAN ####[facility] ostal Vqardrlkvf[address] [place], [place] [address]Dr. Yuki Diaz ATYPICAL LYMPH % Normal [facility] Comment on above: Performed By: #### CBCMAN ####[facility] ospital Ssvebckuov5102 [place] [address]Dr. Yuki Diaz BAND # 0.0 103/ul Normal 0.0-0.3 [facility] Comment on above: Performed By: #### CBCMAN ####[facility] ospital Mcjsncyoik6906 [place] [address]Dr. Yialyssa Diaz BAND % 0 % Normal 0-5 [facility] Comment on above: Performed By: #### CBCMAN ####[facility] o[facility]ital Kgtaynctcz8425 [place] [address]Dr. Yuki Diaz BASOM # 0.00 103/ul Normal 0.00-0.10 [facility] Comment on above: Performed By: #### CBCMAN ####[facility] ospital Bpnccxyvya0752 [place] [address]Dr. Yuki Diaz BASOM % 0.0 % Critically low 0.2-2.0 [facility] Comment on above: Performed By: #### CBCMAN ####[facility] o[facility]ital Otsuaulczy2794 [place] [address]Dr. Yuki Diaz BLAST # Normal [facility] Comment on above: Performed By: #### CBCMAN ####[facility] o[facility]ital Ywuzldqrms3271 [place] [address]Dr. Yuki Diaz BLAST % Normal [facility] Comment on above: Performed By: #### CBCMAN ####[facility] o[facility]ital Rgecinufbf5918 [place] [address]Dr. Yuki Diaz CORRECTED WBC Normal 4.0-11.0 [facility] Comment on above: Performed By: #### CBCMAN ####[facility] o[facility]ital Xdvtbyhxho4302 [place] [address]Dr. Yuki Diaz EOS # 0.00 103/ul Normal 0.00-0.70 [facility] Comment on above: Performed By: #### CBCMAN ####[facility] o[facility]ital Yvdsryramm49[address] [place], [place] [address]Lj. Yuki iDaz EOS% 0.0 % Critically low 0.9-7.0 [facility] Comment on above: Performed By: #### CBCCHANTE ####[facility] ospital Cwqdsuqjoq77[address] [place], [place] [address]Ev. Yuki Diaz HCT 27.5 % Critically low 42.0-54.0 [facility] Comment on above: Performed By: #### CBCCHANTE ####[facility]ital Svygyyshce3119 [place], [place] [address]Ul. Yuki Diaz HGB 8.7 g/dl Critically low 14.0-18.0 [facility] Comment on above: Performed By: #### CBCCHANTE ####[facility] ospital Suaombcfwr7026 [place] [id number]. Yuki Diaz LYMPHM # 0.81 103/ul Critically low 1.20-3.80 [facility] Comment on above: Performed By: #### CBCCHANTE ####[facility] o[facility]ital Efgeafjmtr4413 [place], [place] [address]Ax. Yuki Diaz LYMPHM% 8.0 % Critically low 20.5-60.0 [facility] Comment on above: Performed By: #### CBCCHANTE ####[facility] o[facility]ital Ewejvwkxuk[address] [place] [address]Dr. Yuki Diaz MCH 28.2 pg Normal 25.9-34.0 [facility] Comment on above: Performed By: #### CBCCHANTE ####[facility] o[facility]ital Btvxomylzl1121 [place], [place] [address]Zp. Yuki Diaz MCHC 31.6 g/dl Normal 29.9-35.2 [facility] Comment on above: Performed By: #### CBCCHANTE ####[facility] o[facility]ital Okjtltrxbx4430 [place], [place] [address]Tn. Yuki Diaz MCV 89.0 fL Normal 80.0-94.0 [facility] Comment on above: Performed By: #### CBCCHANTE ####[facility]ital Gwyxrrjwwa[address] [place] [id number]. Yuki Diaz METAMYELOCYTE # Normal [facility] Comment on above: Performed By: #### CBCMAN ####[facility] o[facility]ital Wvebvdjgsr[address] [place] [address]Dr. Yuki Diaz METAMYELOCYTE % Normal [facility] Comment on above: Performed By: #### CBCCHANTE ####[facility] o[facility]ital Llookschiu1646 [place] [address]Dr. Yuki Diaz MONOM# 0.40 103/ul Normal 0.30-0.80 [facility] Comment on above: Performed By: #### CBCCHANTE ####[facility]ital Pvfeenmews3316 [place] [address]Dr. Yuki Diaz MONOM% 4.0 % Normal 1.7-12.0 [facility] Comment on above: Performed By: #### CBCCHANTE ####[facility] Merscgsrlb6944 [place] [address]Dr. Yuki Diaz MPV 10.4 fL Normal 9.5-13.5 [facility] Comment on above: Performed By: #### CBCCHANTE ####[facility] Moytycvugf4241 [place] [address]Dr. Yuki Diaz MYELOCYTE # Normal [facility] Comment on above: Performed By: #### CBCCHANTE ####[facility] Xesarvzisl9220 [place] [address]Dr. Yuki Diaz MYELOCYTE % Normal [facility] Comment on above: Performed By: #### CBCCHANTE ####[facility] Kaicsabaiu5398 [place] [address]Dr. Yuki Diaz NRBC Normal [facility] Comment on above: Performed By: #### CBCMAN ####[facility] Cmjyvvwizt3599 [place] [address]Dr. Yuki Diaz PLT 237 103/ul Normal 150-450 [facility] Comment on above: Performed By: #### CBCMAN ####[facility] Hrlzrssgxt1394 [place], [place] [address]Wa. Yuki Diaz RBC 3.09 106/ul Critically low 4.70-6.10 [facility] Comment on above: Performed By: #### CBCMAN ####[facility] Obbnlndmev2211 [place] [address]Dr. Yuki Diaz RDW 14.7 % Normal 11.0-15.0 [facility] Comment on above: Performed By: #### CBCMAN ####[facility] Cvfwzzdugh7009 [place] [address]Dr. Yuki Diaz SEG # 8.89 103/ul Critically high 1.40-6.50 [facility] Comment on above: Performed By: #### CBCMAN ####[facility] Sgnzgzclda1897 [place] [address]Dr. Yuki Diaz SEG % 88.0 % Critically high 43.0-75.0 [facility] Comment on above: Performed By: #### CBCMAN ####[facility] Ikneaoozbt8845 [place] [address]Dr. Yuki Diaz WBC 10.1 103/ul Normal 4.0-11.0 [facility] Comment on above: Performed By: #### CBCMAN ####[facility] Lxypqbbvvw4918 [place] [address]Dr. Yuki Diaz POINT OF CARE GLUCOSEon 10-06 Glucose [Mass/Vol] 225 mg/dL Critically high 74-106 [facility] Comment on above: Performed By: #### POCGLUC ####[facility] Mcmolqnolg[address] [place] [id number]. Yuki Diaz Glucose [Mass/Vol] 214 mg/dL Critically high 74-106 [facility] Comment on above: Performed By: #### POCGLUC ####[facility] Qjpqemrpor4389 [place] [id number]. Yuki Diaz PRBC LEUKOREDUCEDon 10-28-19 23 PRBC LEUKOREDUCED Normal [facility] Comment on above: Performed By: #### PRBC ####[facility] Ixpgmbenzt[address] [place] [address]Dr. Yuki Diaz PROF 14(COMP METB)on 023 Albumin [Mass/Vol] 1.8 g/dL Critically low 3.4-5.0 [facility] Comment on above: Performed By: #### CMP, BNP ####[facility] Jugnsetufn[address] [place] [address]Dr. Yuki Diaz Albumin/Globulin [Mass ratio] 0.5 {ratio} Normal [facility] Comment on above: Performed By: #### CMP, BNP ####[facility] Nzynkrjyyc[address] [place], [place] [address]Dr. Yuki Diaz ALP [Catalytic activity/Vol] 66 U/L Normal 46-116 [facility] Comment on above: Performed By: #### CMP, BNP ####[facility] Gzrdlnppng[address] [place], [place] [address]Dr. Yuki Diaz ALT [Catalytic activity/Vol] 13 U/L Critically low 16-63 [facility] Comment on above: Performed By: #### CMP, BNP ####[facility] Mgfqxwvzlk[address] [place], [place] [address]Dr. Yuki Diaz Anion gap [Moles/Vol] 11.8 mmol/L Normal [facility] Comment on above: Performed By: #### CMP, BNP ####[facility] Bgwhfblmlo[address] [place], [place] [address]Dr. Yuki Diaz AST [Catalytic activity/Vol] 14 U/L Critically low 15-37 [facility] Comment on above: Performed By: #### CMP, BNP ####[facility] Djzkrolvui[address] [place], [place] [address]Dr. Yuki Diaz Bilirubin [Mass/Vol] 0.4 mg/dL Normal 0.2-1.0 [facility] Comment on above: Performed By: #### CMP, BNP ####[facility] Repemblcfb[address] [place], [place] [address]Dr. Yuki Diaz Calcium [Mass/Vol] 8.2 mg/dL Critically low 8.5-10.1 [facility] Comment on above: Performed By: #### CMP, BNP ####[facility] Acnkmwwznc025[address] [place] [address]Dr. Yuki Diaz Chloride [Moles/Vol] 103 mmol/L Normal 98-107 [facility] Comment on above: Performed By: #### CMP, BNP ####[facility] Jlkpxzxstm[address] [place], [place] [address]Dr. Yuki Diaz CO2 [Moles/Vol] 26.7 mmol/L Normal 21.0-32.0 [facility] Comment on above: Performed By: #### CMP, BNP ####[facility] Wbelmddfjl[address] [place], [place] [address]Dr. Yuki Diaz Creatinine [Mass/Vol] 2.62 mg/dL Critically high 0.70-1.30 [facility] Comment on above: Performed By: #### CMP, BNP ####[facility] Awgjdqwmzr236[address] [place], [place] [address]Dr. Yuki Joe EGFR-AF DJIBOUTIAN 29 mL/min/1.73m2 Critically low >=60 [facility] Comment on above: Performed By: #### CMP, BNP ####[facility] Snatofhegz[address] [place], [place] [address]Dr. Yuki Diaz EGFR-NON AF DJIBOUTIAN 24 mL/min/1.73m2 Critically low >=60 [facility] Comment on above: Performed By: #### CMP, BNP ####[facility] Puormcywzj[address] [place], [place] [address]Dr. Yuki Diaz Globulin (S) [Mass/Vol] 3.9 g/dL Normal [facility] Comment on above: Performed By: #### CMP, BNP ####[facility] Hzoploparg24[address] [place], [place] [address]Dr. Yuki Joe Glucose [Mass/Vol] 209 mg/dL Critically high 74-106 [facility] Comment on above: Performed By: #### CMP, BNP ####[facility] Wphjquxlhx[address] [place], [place] [address]Dr. Yuki Diaz Potassium [Moles/Vol] 4.5 mmol/L Normal 3.5-5.1 [facility] Comment on above: Performed By: #### CMP, BNP ####[facility] Gfqbnqxcvq9426 [place] [address]Dr. Yuki Diaz Protein [Mass/Vol] 5.7 g/dL Critically low 6.4-8.2 [facility] Comment on above: Performed By: #### CMP, BNP ####[facility] Cqqmlatfry[address] [place], [place] [address]Dr. Yuki Diaz Sodium [Moles/Vol] 137 mmol/L Normal 136-145 [facility] Comment on above: Performed By: #### CMP, BNP ####[facility] Eaiwtxagaz204[address] [place], [place] [address]Dr. Yuki Diaz Urea nitrogen [Mass/Vol] 67.0 mg/dL Critically high 7.0-18.0 [facility] Comment on above: Performed By: #### CMP, BNP ####[facility] Qklvydkden[address] [place], [place] [address]Dr. Yuki Diaz Urea nitrogen/Creatin ine [Mass ratio] 25.6 mg/mg Normal [facility] Comment on above: Performed By: #### CMP, BNP ####[facility] Rrvmgvmzih[address] [place], [place] [address]Dr. Yuki Diaz BNPon 10-26-2022 Natriuretic peptide B (Bld) [Mass/Vol] 3539.0 pg/mL Critically high <=1,800.0 [facility] Comment on above: Performed By: #### CMP, BNP ####[facility] K[address]jyvjsxk[address] [place], [place] [address]Dr. Yuki Diaz CBC W MANUAL DIFFon 10-27-19 23 ATYPICAL LYMPH # Normal [facility] Comment on above: Performed By: #### CBCMAN ####[facility] Nwmmczwipi[address] [place], [place] [address]Dr. Yuki Diaz ATYPICAL LYMPH % Normal [facility] Comment on above: Performed By: #### CBCMAN ####[facility] Dcrzaahthv[address] [place], [place] [address]Dr. Yilan Diaz BAND # 0.0 103/ul Normal 0.0-0.3 [facility] Comment on above: Performed By: #### CBCMAN ####[facility] Dnqdjpsdxw98[address] [place] [address]Dr. Yuki Diaz BAND % 0 % Normal 0-5 [facility] Comment on above: Performed By: #### CBCMAN ####[facility] Hlbaaqsqzm1368 [place] [address]Dr. Yuki Diaz BASOM # 0.00 103/ul Normal 0.00-0.10 [facility] Comment on above: Performed By: #### CBCMAN ####[facility] Njurywdsos8601 [place] [address]Dr. Yuki Diaz BASOM % 0.0 % Critically low 0.2-2.0 [facility] Comment on above: Performed By: #### CBCMAN ####[facility] Pcflcuxwvy0[address] [place] [address]Dr. Yuki Diaz BLAST # Normal [facility] Comment on above: Performed By: #### CBCMAN ####[facility] Dyexzdopll2561 [place] [address]Dr. Yuki Diaz BLAST % Normal [facility] Comment on above: Performed By: #### CBCMAN ####[facility] Kdrxpobhac2388 [place] [address]Dr. Yuki Diaz CORRECTED WBC Normal 4.0-11.0 [facility] Comment on above: Performed By: #### CBCMAN ####[facility] Jnpstnwdro9240 [place] [address]Dr. Yuki Diaz EOS # 0.00 103/ul Normal 0.00-0.70 [facility] Comment on above: Performed By: #### CBCMAN ####[facility] Uplowlgsek6244 [place] [address]Dr. Yuki Diaz EOS% 0.0 % Critically low 0.9-7.0 [facility] Comment on above: Performed By: #### CBCMAN ####[facility] Miubthptwb5[address] [place] [id number]. Yuki Diaz HCT 28.9 % Critically low 42.0-54.0 [facility] Comment on above: Performed By: #### CBCCHANTE ####[facility] Qaucqzswoh9974 [place] [address]Dr. Yuki Diaz HGB 9.1 g/dl Critically low 14.0-18.0 [facility] Comment on above: Performed By: #### CBCCHANTE ####[facility] Pfxojawhnp7442 [place] [phone]. Yuki Diaz LYMPHM # 0.37 103/ul Critically low 1.20-3.80 [facility] Comment on above: Performed By: #### CBCCHANTE ####[facility] Jbmimowhxe9[address] [place] [address]Dr. Ykui Diaz LYMPHM% 3.0 % Critically low 20.5-60.0 [facility] Comment on above: Performed By: #### CBCCHANTE ####[facility] Lxceowuivh6591 [place] [address]Dr. Yuki Diaz MCH 28.4 pg Normal 25.9-34.0 [facility] Comment on above: Performed By: #### CBCCHANTE ####[facility] Fmcvcigwzb7038 [place] [id number]. Yuki Diaz MCHC 31.5 g/dl Normal 29.9-35.2 [facility] Comment on above: Performed By: #### CBCCHANTE ####[facility] Xdvcidutdn0004 [place] [phone]. Yuki Diaz MCV 90.3 fL Normal 80.0-94.0 [facility] Comment on above: Performed By: #### CBCCHANTE ####[facility] Iagaunbenj1211 [place] [phone]. Yuki Diaz METAMYELOCYTE # Normal [facility] Comment on above: Performed By: #### CBCCHANTE ####[facility] Wftziayjuu1703 [place] [address]Dr. Yuki Diaz METAMYELOCYTE % Normal [facility] Comment on above: Performed By: #### CBCCHANTE ####[facility] Ccfcvvqoen6444 [place] [address]Dr. Yuki Diaz MONOM# 0.24 103/ul Critically low 0.30-0.80 [facility] Comment on above: Performed By: #### CBCCHANTE ####[facility] Xynmtsislx1181 [place] [address]Dr. Yuki Diaz MONOM% 2.0 % Normal 1.7-12.0 [facility] Comment on above: Performed By: #### CBCCHANTE ####[facility] Nsatsjpzyc1908 [place] [address]Dr. Yuki Diaz MPV 10.3 fL Normal 9.5-13.5 [facility] Comment on above: Performed By: #### CBCCHANTE ####[facility] Altffkpaee1271 [place] [address]Dr. Yuki Diaz MYELOCYTE # Normal [facility] Comment on above: Performed By: #### CBCCHANTE ####[facility] Adauiwrsmz5506 [place] [address]Dr. Yuki Diaz MYELOCYTE % Normal [facility] Comment on above: Performed By: #### CBCCHANTE ####[facility] Vaimzoyeet9084 [place] [address]Dr. Yuki Diaz NRBC Normal [facility] Comment on above: Performed By: #### CBCCHANTE ####[facility] Qrbnujwtur8682 [place] [address]Dr. Yuki Diaz PLT 215 103/ul Normal 150-450 [facility] Comment on above: Performed By: #### CBCCHANTE ####[facility] Oxdjsqefkf6438 [place] [address]Dr. Yuki Diaz RBC 3.20 106/ul Critically low 4.70-6.10 [facility] Comment on above: Performed By: #### CBCCHANTE ####[facility] Qigtnfkmub6710 [place], [place] [address]An. Yuki Diaz RDW 14.7 % Normal 11.0-15.0 [facility] Comment on above: Performed By: #### CBCMAN ####[facility] Tztqdbbwec9211 [place], [place] [address]Fd. Yuki Diaz SEG # 11.59 103/ul Critically high 1.40-6.50 [facility] Comment on above: Performed By: #### CBCMAN ####[facility] Dtlkyutjyk2237 [place] [phone]. Yuki Diaz SEG % 95.0 % Critically high 43.0-75.0 [facility] Comment on above: Performed By: #### CBCMAN ####[facility] Gyyhgerjkb7845 [place] [address]Dr. Yuki Diaz WBC 12.2 103/ul Critically high 4.0-11.0 [facility] Comment on above: Performed By: #### CBCMAN ####[facility] Byxjchzieu7113 [place] [address]Dr. Yuki Diaz POINT OF CARE GLUCOSEon 10-06 Glucose [Mass/Vol] 292 mg/dL Critically high 74-106 [facility] Comment on above: Performed By: #### POCGLUC ####[facility] Fcgqkcjkkc7900 [place] [phone]. Yuki Diaz Glucose [Mass/Vol] 194 mg/dL Critically high 74-106 [facility] Comment on above: Performed By: #### POCGLUC ####[facility] Vzojkzqwxd2998 [place] [address]Dr. Yuki Diaz Glucose [Mass/Vol] 280 mg/dL Critically high 74-106 [facility] Comment on above: Performed By: #### POCGLUC ####[facility] Arcujhxxmk3558 [place] [address]Dr. Yuki Diaz Glucose [Mass/Vol] 212 mg/dL Critically high 74-106 [facility] Comment on above: Performed By: #### POCGLUC ####[facility] Ztdtleurtd4066 [place] [address]Dr. Yuki Diaz Glucose [Mass/Vol] 148 mg/dL Critically high 74-106 [facility] Comment on above: Performed By: #### POCGLUC ####[facility] Pbfoiwlfzm[address] [place], [place] [address]Dr. Yuki Diaz PRBC LEUKOREDUCEDon 10-27-19 23 PRBC LEUKOREDUCED Normal [facility] Comment on above: Performed By: #### PRBC ####[facility] Umgeauswxu8612 [place] [address]Dr. Yuki Diaz PROF 14(COMP METB)on 023 Albumin [Mass/Vol] 2.0 g/dL Critically low 3.4-5.0 [facility] Comment on above: Performed By: #### CMP, BNP ####[facility] Gfnjjgqqzd[address] [place], [place] [address]Dr. Yuki Diaz Albumin/Globulin [Mass ratio] 0.5 {ratio} Normal [facility] Comment on above: Performed By: #### CMP, BNP ####[facility] Dhiwtrsrey[address] [place], [place] [address]Dr. Yuki Diaz ALP [Catalytic activity/Vol] 75 U/L Normal 46-116 [facility] Comment on above: Performed By: #### CMP, BNP ####[facility] Qjgxdjzvrb[address] [place], [place] [address]Dr. Yuki Diaz ALT [Catalytic activity/Vol] 10 U/L Critically low 16-63 [facility] Comment on above: Performed By: #### CMP, BNP ####[facility] Dwhubnlkay079[address] [place], [place] [address]Dr. Yuki Diaz Anion gap [Moles/Vol] 13.9 mmol/L Normal [facility] Comment on above: Performed By: #### CMP, BNP ####[facility] Hwohhmwqqz7[address] [place], [place] [address]Dr. Yuki Diaz AST [Catalytic activity/Vol] 13 U/L Critically low 15-37 [facility] Comment on above: Performed By: #### CMP, BNP ####[facility] Efwvpqkhqp90[address] [place], [place] [address]Dr. Yuki Diaz Bilirubin [Mass/Vol] 0.7 mg/dL Normal 0.2-1.0 [facility] Comment on above: Performed By: #### CMP, BNP ####[facility] Pdkpeergda[address] [place], [place] [address]Dr. Yuki Diaz Calcium [Mass/Vol] 8.5 mg/dL Normal 8.5-10.1 [facility] Comment on above: Performed By: #### CMP, BNP ####[facility] Pfsugfkery[address] [place], [place] [address]Dr. Yuki Diaz Chloride [Moles/Vol] 103 mmol/L Normal 98-107 [facility] Comment on above: Performed By: #### CMP, BNP ####[facility] Zkkqnictya[address] [place], [place] [address]Dr. Yuki Diaz CO2 [Moles/Vol] 25.8 mmol/L Normal 21.0-32.0 [facility] Comment on above: Performed By: #### CMP, BNP ####[facility] Ycymbsoyhn[address] [place], [place] [address]Dr. Yuki Diaz Creatinine [Mass/Vol] 2.87 mg/dL Critically high 0.70-1.30 [facility] Comment on above: Performed By: #### CMP, BNP ####[facility] Pdqvperthx[address] [place], [place] [address]Dr. Yuki Diaz EGFR-AF DJIBOUTIAN 26 mL/min/1.73m2 Critically low >=60 [facility] Comment on above: Performed By: #### CMP, BNP ####[facility] Fpzsoisbdh[address] [place], [place] [address]Dr. Yuki Diaz EGFR-NON AF DJIBOUTIAN 21 mL/min/1.73m2 Critically low >=60 [facility] Comment on above: Performed By: #### CMP, BNP ####[facility] Fdrqfuuyjy[address] [place], [place] [address]Dr. Yuki Diaz Globulin (S) [Mass/Vol] 4.0 g/dL Normal [facility] Comment on above: Performed By: #### CMP, BNP ####[facility] Trloaooupt3204 [place] [address]Dr. Yuki Diaz Glucose [Mass/Vol] 209 mg/dL Critically high 74-106 [facility] Comment on above: Performed By: #### CMP, BNP ####[facility] Rktbgkvbze5840 [place] [address]Dr. Yuki Diaz Potassium [Moles/Vol] 4.7 mmol/L Normal 3.5-5.1 [facility] Comment on above: Performed By: #### CMP, BNP ####[facility] Bqpdzfiwyq218[address] [place], [place] [address]Dr. Yuki Diaz Protein [Mass/Vol] 6.0 g/dL Critically low 6.4-8.2 [facility] Comment on above: Performed By: #### CMP, BNP ####[facility] Bomvfujrfh004[address] [place], [place] [address]Dr. Yuki Diaz Sodium [Moles/Vol] 138 mmol/L Normal 136-145 [facility] Comment on above: Performed By: #### CMP, BNP ####[facility] Xxamfasvya[address] [place], [place] [address]Dr. Yuki Diaz Urea nitrogen [Mass/Vol] 58.0 mg/dL Critically high 7.0-18.0 [facility] Comment on above: Performed By: #### CMP, BNP ####[facility] Qcnljypmez978[address] [place], [place] [address]Dr. Yuki Diaz Urea nitrogen/Creatin ine [Mass ratio] 20.2 mg/mg Normal [facility] Comment on above: Performed By: #### CMP, BNP ####[facility] Eczcmnzevc7[address] [place], [place] [address]Dr. Yuki Diaz XR KNEE LT 4V or >on 023 XR KNEE LT 4V or > Normal [facility] CBC AUTO DIFFon 10-25-2022 BASO # 0.0 103/ul Normal 0.0-0.1 [facility] Comment on above: Performed By: #### CBC ####[facility] Znxgbrqfpv0529 [place] [address]Dr. Yuki Diaz Basophils/100 WBC (Bld) 0.0 % Critically low 0.2-2.0 [facility] Comment on above: Performed By: #### CBC ####[facility] Jeujzwxest[address] [place], [place] [address]Dr. Yuki Diaz EO # 0.0 103/ul Normal 0.0-0.7 [facility] Comment on above: Performed By: #### CBC ####[facility] Qijauhuvvd906[address] [place], [place] [address]Dr. Yuki Diaz Eosinophils/100 WBC (Bld) 0.0 % Critically low 0.9-7.0 [facility] Comment on above: Performed By: #### CBC ####[facility] Rcuozhirbi7[address] [place], [place] [address]Dr. Yuki Diaz Erythrocyte distribution width (RBC) [Ratio] 14.7 % Normal 11.0-15.0 [facility] Comment on above: Performed By: #### CBC ####[facility] Ynwhpxzmdo84[address] [place], [place] [address]Dr. Yuki Diaz Hematocrit (Bld) [Volume fraction] 30.9 % Critically low 42.0-54.0 [facility] Comment on above: Performed By: #### CBC ####[facility] Pksorbossc[address] [place], [place] [address]Dr. Yuki Diaz Hemoglobin (Bld) [Mass/Vol] 9.6 g/dL Critically low 14.0-18.0 [facility] Comment on above: Result Comment: pt. rcvd. blood Performed By: #### C BC ####[facility] Kuifalifjl[address] [place], [place] [address]Dr. Yuki Diaz IG # 0.06 10e3/ul Critically high 0.00-0.03 [facility] Comment on above: Performed By: #### CBC ####[facility] Esrnvdqblq043[address] [place], [place] [address]Dr. Monsealyssa Diaz IG % 0.5 % Normal 0.0-0.5 [facility] Comment on above: Performed By: #### CBC ####[facility] ital Uhhlcrzhxl8348 [place] [address]Dr. Yuki Diaz LYMPH # 0.4 103/ul Critically low 1.2-3.8 [facility] Comment on above: Performed By: #### CBC ####[facility] ital Nicqowxeky7767 [place] [address]Dr. Yuki Diaz Lymphocytes/100 WBC (Bld) 3.5 % Critically low 20.5-60.0 [facility] Comment on above: Performed By: #### CBC ####[facility] ital Olvngphbpz2003 [place] [address]Dr. Yuki Diaz MANUAL DIFF REQ NO Normal [facility] Comment on above: Performed By: #### CBC ####[facility] Pwocmxdebn5850 [place] [address]Dr. Yuki Diaz MCH (RBC) [Entitic mass] 28.3 pg Normal 25.9-34.0 [facility] Comment on above: Performed By: #### CBC ####[facility] Mizjcqcrst7649 [place] [address]Dr. Yuki Diaz MCHC (RBC) [Mass/Vol] 31.1 g/dL Normal 29.9-35.2 [facility] Comment on above: Performed By: #### CBC ####[facility] Nhiwfnqgiu2825 [place] [address]Dr. Yuki Diaz MCV (RBC) [Entitic vol] 91.2 fL Normal 80.0-94.0 [facility] Comment on above: Performed By: #### CBC ####[facility] Qnvglgzrxe6466 [place] [address]Dr. Yuki Diaz MONO # 0.5 103/ul Normal 0.3-0.8 [facility] Comment on above: Performed By: #### CBC ####[facility] Xkakngbznw8171 [place] [address]Dr. Yuki Diaz Monocytes/100 WBC (Bld) 4.4 % Normal 1.7-12.0 [facility] Comment on above: Performed By: #### CBC ####[facility] ital Qxrbereksn2287 [place] [address]Dr. Yuki Diaz NEUT # 10.8 103/ul Critically high 1.4-6.5 [facility] Comment on above: Performed By: #### CBC ####[facility] ital Sbviazdwlm4341 [place] [address]Dr. Yuki Diaz Neutrophils/100 WBC (Bld) 91.6 % Critically high 43.0-75.0 [facility] Comment on above: Performed By: #### CBC ####[facility] ital Vcltwjzpqc6802 [place] [address]Dr. Yuki Diaz Platelet mean volume (Bld) [Entitic vol] 10.1 fL Normal 9.5-13.5 [facility] Comment on above: Performed By: #### CBC ####[facility] Oxsqarhret5949 [place] [address]Dr. Yuki Diaz PLT 223 103/ul Normal 150-450 [facility] Comment on above: Performed By: #### CBC ####[facility] Svflzapxvz4626 [place] [address]Dr. Yuki Diaz RBC 3.39 106/ul Critically low 4.70-6.10 [facility] Comment on above: Performed By: #### CBC ####[facility] Psowpkinxf8175 [place] [address]Dr. Yuki Diaz WBC 11.8 103/ul Critically high 4.0-11.0 [facility] Comment on above: Performed By: #### CBC ####[facility] Gznduxfjun0267 [place] [address]Dr. Yuki Diaz BASO # 0.0 103/ul Normal 0.0-0.1 [facility] Comment on above: Performed By: #### CBC ####[facility] Lpdinnfujn1453 [place] [address]Dr. Yuki Diaz Basophils/100 WBC (Bld) 0.1 % Critically low 0.2-2.0 [facility] Comment on above: Performed By: #### CBC ####[facility] Mxsbdgjtsb5139 [place] [address]Dr. Yuki Diaz EO # 0.0 103/ul Normal 0.0-0.7 [facility] Comment on above: Performed By: #### CBC ####[facility] Pwoazpyced7583 [place] [address]Dr. Yuki Diaz Eosinophils/100 WBC (Bld) 0.2 % Critically low 0.9-7.0 [facility] Comment on above: Performed By: #### CBC ####[facility] Hpayprmvzv3045 [place] [address]Dr. Yuki Diaz Erythrocyte distribution width (RBC) [Ratio] 15.1 % Critically high 11.0-15.0 [facility] Comment on above: Performed By: #### CBC ####[facility] Kyfvrbghrs4449 [place] [address]Dr. Yuki Diaz Hematocrit (Bld) [Volume fraction] 23.7 % Critically low 42.0-54.0 [facility] Comment on above: Performed By: #### CBC ####[facility] Xrbgfrhcja0163 [place] [address]Dr. Yuki Diaz Hemoglobin (Bld) [Mass/Vol] 7.4 g/dL Critically low 14.0-18.0 [facility] Comment on above: Performed By: #### CBC ####[facility] Tmlxblvtmx6765 [place] [address]Dr. Yuki Diaz IG # 0.07 10e3/ul Critically high 0.00-0.03 [facility] Comment on above: Performed By: #### CBC ####[facility] Ejnsovwgdu8739 [place] [address]Dr. Yuki Diaz IG % 0.6 % Critically high 0.0-0.5 [facility] Comment on above: Performed By: #### CBC ####[facility] Aqnnghmuex9374 [place] [address]Dr. Yuki Diaz LYMPH # 0.8 103/ul Critically low 1.2-3.8 [facility] Comment on above: Performed By: #### CBC ####[facility] Limyyqgckd12[address] [place] [address]Dr. Yuki Diaz Lymphocytes/100 WBC (Bld) 6.6 % Critically low 20.5-60.0 [facility] Comment on above: Performed By: #### CBC ####[facility] ital Rtlhcebfdp3319 [place] [address]Dr. Monsealyssa Diaz MANUAL DIFF REQ NO Normal [facility] Comment on above: Performed By: #### CBC ####[facility] Vugikqlzmu5446 [place] [address]Dr. Yuki Diaz MCH (RBC) [Entitic mass] 28.1 pg Normal 25.9-34.0 [facility] Comment on above: Performed By: #### CBC ####[facility] Xpipqquhgu1927 [place] [address]Dr. Monsealyssa Diaz MCHC (RBC) [Mass/Vol] 31.2 g/dL Normal 29.9-35.2 [facility] Comment on above: Performed By: #### CBC ####[facility] Tautnjmlip7751 [place] [address]Dr. Monsealyssa Diaz MCV (RBC) [Entitic vol] 90.1 fL Normal 80.0-94.0 [facility] Comment on above: Performed By: #### CBC ####[facility] Ripcthqrwz6560 [place] [address]Dr. Monsealyssa Diaz MONO # 1.5 103/ul Critically high 0.3-0.8 [facility] Comment on above: Performed By: #### CBC ####[facility] Qpgizvzesf0941 [place] [address]Dr. Monsealyssa Diaz Monocytes/100 WBC (Bld) 11.5 % Normal 1.7-12.0 [facility] Comment on above: Performed By: #### CBC ####[facility] Aucquhydjb2411 [place] [address]Dr. Yuki Diaz NEUT # 10.2 103/ul Critically high 1.4-6.5 [facility] Comment on above: Performed By: #### CBC ####[facility] ital Lntwewtrdy2951 [place] [address]Dr. Yuki Diaz Neutrophils/100 WBC (Bld) 81.0 % Critically high 43.0-75.0 [facility] Comment on above: Performed By: #### CBC ####[facility] ital Enwmbmrouz2421 [place] [address]Dr. Yuki Diaz Platelet mean volume (Bld) [Entitic vol] 10.7 fL Normal 9.5-13.5 [facility] Comment on above: Performed By: #### CBC ####[facility] ital Jyqadobgoy4023 [place] [address]Dr. Yuki Diaz PLT 204 103/ul Normal 150-450 [facility] Comment on above: Performed By: #### CBC ####[facility] Dbsoigomjz5091 [place] [address]Dr. Yuki Diaz RBC 2.63 106/ul Critically low 4.70-6.10 [facility] Comment on above: Performed By: #### CBC ####[facility] Itvppznbdq1998 [place] [address]Dr. Yuki Diaz WBC 12.6 103/ul Critically high 4.0-11.0 [facility] Comment on above: Performed By: #### CBC ####[facility] Rbnetnknls4782 [place] [address] Y[address] CT ABD/PELVIS WO CONon 10-25 CT ABD/PELVIS WO CON Normal [facility] CT PELVIS WO CONon 3 CT PELVIS WO CON Normal [facility] POINT OF CARE GLUCOSEon 10-06 Glucose [Mass/Vol] 65 mg/dL Critically low 74-106 [facility] Comment on above: Performed By: #### POCGLUC ####[facility] Vfaoapomgh[address] [place], [place] [address]Dr. Yuki Diaz Glucose [Mass/Vol] 137 mg/dL Critically high 74-106 [facility] Comment on above: Performed By: #### POCGLUC ####[facility] Aedntqbvgg[address] [place], [place] [address]Dr. Yuki Diaz Glucose [Mass/Vol] 118 mg/dL Critically high 74-106 [facility] Comment on above: Performed By: #### POCGLUC ####[facility] Ksdkomrohb8458 [place] [address]Dr. Yuki Diaz PROF 14(COMP METB)on 10-25- 023 Albumin [Mass/Vol] 2.2 g/dL Critically low 3.4-5.0 [facility] Comment on above: Performed By: #### CMP ####[facility] ital Dfiewgykgj1165 [place] [address]Dr. Yuki Diaz Albumin/Globulin [Mass ratio] 0.6 {ratio} Normal [facility] Comment on above: Performed By: #### CMP ####[facility] ital Adxsfgdaye2162 [place] [address]Dr. Yuki Diaz ALP [Catalytic activity/Vol] 64 U/L Normal 46-116 [facility] Comment on above: Performed By: #### CMP ####[facility] ital Awwgxndkuu6920 [place] [address]Dr. Yuki Diaz ALT [Catalytic activity/Vol] 11 U/L Critically low 16-63 [facility] Comment on above: Performed By: #### CMP ####[facility] ital Uypnqincxc1510 [place] [address]Dr. Yuki Diaz Anion gap [Moles/Vol] 13.5 mmol/L Normal [facility] Comment on above: Performed By: #### CMP ####[facility] ital Inxvwrhgoi1413 [place] [address]Dr. Yuki Diaz AST [Catalytic activity/Vol] 12 U/L Critically low 15-37 [facility] Comment on above: Performed By: #### CMP ####[facility] ital Orxzoqrycp1520 [place] [address]Dr. Yuki Diaz Bilirubin [Mass/Vol] 0.8 mg/dL Normal 0.2-1.0 [facility] Comment on above: Performed By: #### CMP ####[facility] ital Digcxbcfar8185 [place] [address]Dr. Yuki Diaz Calcium [Mass/Vol] 8.5 mg/dL Normal 8.5-10.1 [facility] Comment on above: Performed By: #### CMP ####[facility] ital Uowqaxmcuu7150 [place] [address]Dr. Yuki Diaz Chloride [Moles/Vol] 100 mmol/L Normal 98-107 [facility] Comment on above: Performed By: #### CMP ####[facility] ital Vtclqfzopk5093 [place] [address]Dr. Monsealyssa Joe CO2 [Moles/Vol] 28.1 mmol/L Normal 21.0-32.0 [facility] Comment on above: Performed By: #### CMP ####[facility] Qbsbullcns1421 [place] [address]Dr. Yuki Diaz Creatinine [Mass/Vol] 2.93 mg/dL Critically high 0.70-1.30 [facility] Comment on above: Performed By: #### CMP ####[facility] Zsvcjkzfil6607 [place] [address]Dr. Yuki Diaz EGFR-AF DJIBOUTIAN 25 mL/min/1.73m2 Critically low >=60 [facility] Comment on above: Performed By: #### CMP ####[facility] Irdnxmaqgl9695 [place] [address]Dr. Yuki Diaz EGFR-NON AF DJIBOUTIAN 21 mL/min/1.73m2 Critically low >=60 [facility] Comment on above: Performed By: #### CMP ####[facility] ital Lgzfdaobyy8685 [place] [address]Dr. Yuki Diaz Globulin (S) [Mass/Vol] 3.7 g/dL Normal [facility] Comment on above: Performed By: #### CMP ####[facility] Uzfiursnso8144 [place] [address]Dr. Yuki Diaz Glucose [Mass/Vol] 112 mg/dL Critically high 74-106 [facility] Comment on above: Performed By: #### CMP ####[facility] Mbpzlpqrob4586 [place] [address]Dr. Yuki Diaz Potassium [Moles/Vol] 4.6 mmol/L Normal 3.5-5.1 [facility] Comment on above: Performed By: #### CMP ####[facility] Tyszaduiwx4839 [place] [address]Dr. Yuki Diaz Protein [Mass/Vol] 5.9 g/dL Critically low 6.4-8.2 [facility] Comment on above: Performed By: #### CMP ####[facility] ital Yncrkireoh0034 [place] [address]Dr. Yuki Diaz Sodium [Moles/Vol] 137 mmol/L Normal 136-145 [facility] Comment on above: Performed By: #### CMP ####[facility] Ptcdohboxh4580 [place] [address]Dr. Yuki Diaz Urea nitrogen [Mass/Vol] 56.0 mg/dL Critically high 7.0-18.0 [facility] Comment on above: Performed By: #### CMP ####[facility] Nmmlezcccm[address] [place], [place] [address]Dr. Yuki Diaz Urea nitrogen/Creatin ine [Mass ratio] 19.1 mg/mg Normal [facility] Comment on above: Performed By: #### CMP ####[facility] Rdnfmiyzrf[address] [place], [place] [address]Dr. Yuki Diaz TYPE AND SCREENon 10-25-2022 TYPE AND SCREEN Negative Normal [facility] Comment on above: Performed By: #### TNS ####[facility] Fyhzsquqbp[address] [place], [place] [address]Dr. Yuki Diaz XR CHEST 1 Von 10-25-2022 XR CHEST 1 V Normal [facility] CBC AUTO DIFFon 10-24-2022 BASO # 0.0 103/ul Normal 0.0-0.1 [facility] Comment on above: Performed By: #### CBC ####[facility] Mztkdfdwnb4634 [place] [address]Dr. Yuki Diaz Basophils/100 WBC (Bld) 0.1 % Critically low 0.2-2.0 [facility] Comment on above: Performed By: #### CBC ####[facility] ital Nlcdiwopzz2720 [place] [address]Dr. Yuki Diaz EO # 0.0 103/ul Normal 0.0-0.7 [facility] Comment on above: Performed By: #### CBC ####[facility] ital Duggruragg9073 [place] [address]Dr. Yuki Diaz Eosinophils/100 WBC (Bld) 0.0 % Critically low 0.9-7.0 [facility] Comment on above: Performed By: #### CBC ####[facility] ital Qriymyumqc7933 [place] [address]Dr. Yuki Diaz Erythrocyte distribution width (RBC) [Ratio] 15.2 % Critically high 11.0-15.0 [facility] Comment on above: Performed By: #### CBC ####[facility] Qmvoutfbqs537[address] [place], [place] [address]Dr. Yuki Diaz Hematocrit (Bld) [Volume fraction] 27.4 % Critically low 42.0-54.0 [facility] Comment on above: Performed By: #### CBC ####[facility] Njmtebfwar2914 [place] [address]Dr. Yuki Diaz Hemoglobin (Bld) [Mass/Vol] 8.4 g/dL Critically low 14.0-18.0 [facility] Comment on above: Performed By: #### CBC ####[facility] ital Bqnvkzftkl5652 [place] [address]Dr. Yuki Diaz IG # 0.13 10e3/ul Critically high 0.00-0.03 [facility] Comment on above: Performed By: #### CBC ####[facility] ital Vzaxezlwms4788 [place] [address]Dr. Yuki Diaz IG % 0.7 % Critically high 0.0-0.5 [facility] Comment on above: Performed By: #### CBC ####[facility] ital Midcdztwql[address] [place], [place] [address]Dr. Yuki Diaz LYMPH # 1.0 103/ul Critically low 1.2-3.8 [facility] Comment on above: Performed By: #### CBC ####[facility] ital Zbntvpbttg0317 [place] [address]Dr. Yuki Diaz Lymphocytes/100 WBC (Bld) 5.5 % Critically low 20.5-60.0 [facility] Comment on above: Performed By: #### CBC ####[facility] ital Gyyhgkdmup7052 [place] [address]DrBebo Diaz MANUAL DIFF REQ NO Normal [facility] Comment on above: Performed By: #### CBC ####[facility] ital Korqxvpbaj0952 [place] [address]Dr. Yuki Diaz MCH (RBC) [Entitic mass] 27.8 pg Normal 25.9-34.0 [facility] Comment on above: Performed By: #### CBC ####[facility] ital Nanwrrtnoc5774 [place] [address]Dr. Yuki Diaz MCHC (RBC) [Mass/Vol] 30.7 g/dL Normal 29.9-35.2 [facility] Comment on above: Performed By: #### CBC ####[facility] ital Iiptpgalgi0846 [place] [address]Dr. Yuki Diaz MCV (RBC) [Entitic vol] 90.7 fL Normal 80.0-94.0 [facility] Comment on above: Performed By: #### CBC ####[facility] ital Wqlvgbheue4605 [place] [address]Dr. Yuki Diaz MONO # 2.8 103/ul Critically high 0.3-0.8 [facility] Comment on above: Performed By: #### CBC ####[facility] ital Xufknyqrdz2377 [place] [address]DrBebo Diaz Monocytes/100 WBC (Bld) 15.0 % Critically high 1.7-12.0 [facility] Comment on above: Performed By: #### CBC ####[facility] ital Xfdgcgyjkm6152 [place] [address]Dr. Yuki Diaz NEUT # 14.9 103/ul Critically high 1.4-6.5 [facility] Comment on above: Performed By: #### CBC ####[facility] ital Dydmajxmrt0763 [place] [address]DrBebo Diaz Neutrophils/100 WBC (Bld) 78.7 % Critically high 43.0-75.0 [facility] Comment on above: Performed By: #### CBC ####[facility] ital Mepgpddtcz7770 [place] [address]DrBebo Diaz Platelet mean volume (Bld) [Entitic vol] 10.8 fL Normal 9.5-13.5 [facility] Comment on above: Performed By: #### CBC ####[facility] Afikpuxmze9230 [place] [address]DrBebo Diaz PLT 212 103/ul Normal 150-450 [facility] Comment on above: Performed By: #### CBC ####[facility] Gjaogfkfdw1157 [place] [address]DrBebo Diaz RBC 3.02 106/ul Critically low 4.70-6.10 [facility] Comment on above: Performed By: #### CBC ####[facility] Kxifmaoobr8654 [place] [address]DrBebo Diaz WBC 18.9 103/ul Critically high 4.0-11.0 [facility] Comment on above: Performed By: #### CBC ####[facility] Tiqhbwscgt1401 [place] [address] Y[address] CT KNEE RT WO CONon 10-25-19 CT KNEE RT WO CON Normal [facility] POINT OF CARE GLUCOSEon 10-06 0 Glucose [Mass/Vol] 110 mg/dL Critically high 74-106 [facility] Comment on above: Performed By: #### POCGLUC ####[facility] Vhmlxuhtwq8388 [place] [address]DrBebo Diaz Glucose [Mass/Vol] 134 mg/dL Critically high 74-106 [facility] Comment on above: Performed By: #### POCGLUC ####[facility] Yrzelrsnze9570 [place] [address]Dr. Yuki Diaz PROF 14(COMP METB)on 023 Albumin [Mass/Vol] 2.8 g/dL Critically low 3.4-5.0 [facility] Comment on above: Performed By: #### CMP ####[facility] ital Wfywqupoai1427 [place] [address]Dr. Yuki Diaz Albumin/Globulin [Mass ratio] 0.8 {ratio} Normal [facility] Comment on above: Performed By: #### CMP ####[facility] ital Uaaugmmxmi3825 [place] [address]Dr. Yuki Diaz ALP [Catalytic activity/Vol] 89 U/L Normal 46-116 [facility] Comment on above: Performed By: #### CMP ####[facility] ital Bjbthuelqc1723 [place] [address]Dr. Yuki Diaz ALT [Catalytic activity/Vol] 10 U/L Critically low 16-63 [facility] Comment on above: Performed By: #### CMP ####[facility] ital Isdasashgv5887 [place] [address]Dr. Yuki Diaz Anion gap [Moles/Vol] 11.7 mmol/L Normal [facility] Comment on above: Performed By: #### CMP ####[facility] ital Vmnszvughs8453 [place] [address]Dr. Yuki Diaz AST [Catalytic activity/Vol] 12 U/L Critically low 15-37 [facility] Comment on above: Performed By: #### CMP ####[facility] ital Ufnnpjnrtg8873 [place] [address]Dr. Yuki Diaz Bilirubin [Mass/Vol] 0.9 mg/dL Normal 0.2-1.0 [facility] Comment on above: Performed By: #### CMP ####[facility] ital Djhiatwkhc3344 [place] [address]Dr. Yuki Diaz Calcium [Mass/Vol] 8.7 mg/dL Normal 8.5-10.1 [facility] Comment on above: Performed By: #### CMP ####[facility] ital Dhyrpyxnlc1968 [place] [address]Dr. Yuki Diaz Chloride [Moles/Vol] 102 mmol/L Normal 98-107 [facility] Comment on above: Performed By: #### CMP ####[facility] ital Lahidiutgf2981 [place] [address]Dr. Yuki Diaz CO2 [Moles/Vol] 29.1 mmol/L Normal 21.0-32.0 [facility] Comment on above: Performed By: #### CMP ####[facility] ital Zkxrvmknma7407 [place] [address]Dr. Yuki Diaz Creatinine [Mass/Vol] 2.75 mg/dL Critically high 0.70-1.30 [facility] Comment on above: Performed By: #### CMP ####[facility] Torewcgypb0102 [place] [address]Dr. Yuki Diaz EGFR-AF DJIBOUTIAN 27 mL/min/1.73m2 Critically low >=60 [facility] Comment on above: Performed By: #### CMP ####[facility] Ukstzbdfkn2642 [place] [address]Dr. Monsealyssa Joe EGFR-NON AF DJIBOUTIAN 22 mL/min/1.73m2 Critically low >=60 [facility] Comment on above: Performed By: #### CMP ####[facility] Xavdyrqipz7081 [place] [address]Dr. Yuki Diaz Globulin (S) [Mass/Vol] 3.7 g/dL Normal [facility] Comment on above: Performed By: #### CMP ####[facility] Nacjgquhbu5398 [place] [address]Dr. Yuki Diaz Glucose [Mass/Vol] 121 mg/dL Critically high 74-106 [facility] Comment on above: Performed By: #### CMP ####[facility] ital Kgvjdjojmp5813 [place] [address]Dr. Yuki Diaz Potassium [Moles/Vol] 4.8 mmol/L Normal 3.5-5.1 [facility] Comment on above: Performed By: #### CMP ####[facility] ital Mgsamazrzq460[address] [place], [place] [address]Dr. Yuki Diaz Protein [Mass/Vol] 6.5 g/dL Normal 6.4-8.2 [facility] Comment on above: Performed By: #### CMP ####[facility] Naaacmaala3481 [place] [address]Dr. Yuki Diaz Sodium [Moles/Vol] 138 mmol/L Normal 136-145 [facility] Comment on above: Performed By: #### CMP ####[facility] ital Uuiyoovxxr2373 [place] [address]Dr. Yuki Diaz Urea nitrogen [Mass/Vol] 39.0 mg/dL Critically high 7.0-18.0 [facility] Comment on above: Performed By: #### CMP ####[facility] Zkrpjgfvli6144 [place] [address]Dr. Yuki Diaz Urea nitrogen/Creatin ine [Mass ratio] 14.2 mg/mg Normal [facility] Comment on above: Performed By: #### CMP ####[facility] Iwzlkzxnpb9[address] [place], [place] [address]Dr. Yuki Diaz US KIDNEYS BLADDERon 023 US KIDNEYS BLADDER Normal [facility] XR CHEST 1 Von 10-24-2022 XR CHEST 1 V Normal [facility] CBC AUTO DIFFon 10-23-2022 BASO # 0.0 103/ul Normal 0.0-0.1 [facility] Comment on above: Performed By: #### CBC ####[facility] Uanhamakip9428 [place] [address]Dr. Yuki Joe Basophils/100 WBC (Bld) 0.1 % Critically low 0.2-2.0 [facility] Comment on above: Performed By: #### CBC ####[facility] Pxdxpvzuhd3697 [place] [address]Dr. Yuki Diaz EO # 0.1 103/ul Normal 0.0-0.7 [facility] Comment on above: Performed By: #### CBC ####[facility] Usishuunxd3974 [place] [address]Dr. Monsealyssa Joe Eosinophils/100 WBC (Bld) 0.4 % Critically low 0.9-7.0 [facility] Comment on above: Performed By: #### CBC ####[facility] Vrwvevmuih[address] [place] [address]. Yuki Diaz Erythrocyte distribution width (RBC) [Ratio] 15.0 % Normal 11.0-15.0 [facility] Comment on above: Performed By: #### CBC ####[facility] Rbasjcxiwe[address] [place] [address]. Yuki Diaz Hematocrit (Bld) [Volume fraction] 29.8 % Critically low 42.0-54.0 [facility] Comment on above: Performed By: #### CBC ####[facility] Womrmgdhjr[address] [place] [address]. Yuki Diaz Hemoglobin (Bld) [Mass/Vol] 9.1 g/dL Critically low 14.0-18.0 [facility] Comment on above: Performed By: #### CBC ####[facility] Qnrqiezafd69[address] [place] [address]. Yuki Diaz IG # 0.07 10e3/ul Critically high 0.00-0.03 [facility] Comment on above: Performed By: #### CBC ####[facility] Gaqnkvlnma[address] [place] [address]. Yuki Diaz IG % 0.5 % Normal 0.0-0.5 [facility] Comment on above: Performed By: #### CBC ####[facility] Ggoxlllxge[address] [place] [address]. Yuki Diaz LYMPH # 1.0 103/ul Critically low 1.2-3.8 [facility] Comment on above: Performed By: #### CBC ####[facility] Pwtkbalmjt[address] [place] [address]. Yuki Diaz Lymphocytes/100 WBC (Bld) 7.8 % Critically low 20.5-60.0 [facility] Comment on above: Performed By: #### CBC ####[facility] Ndxqmzewkl210[address] [place] [address]. Yuki Diaz MANUAL DIFF REQ NO Normal [facility] Comment on above: Performed By: #### CBC ####[facility] Amofjiznrz6663 [place] [address]DrBebo Diaz MCH (RBC) [Entitic mass] 27.9 pg Normal 25.9-34.0 [facility] Comment on above: Performed By: #### CBC ####[facility] Yvwqanpvuk3787 [place] [address]DrBebo Diaz MCHC (RBC) [Mass/Vol] 30.5 g/dL Normal 29.9-35.2 [facility] Comment on above: Performed By: #### CBC ####[facility] Uautbosmam16[address] [place], [place] [address]DrBebo Diaz MCV (RBC) [Entitic vol] 91.4 fL Normal 80.0-94.0 [facility] Comment on above: Performed By: #### CBC ####[facility] Wqsnxmowlo9[address] [place], [place] [address]DrBebo Diaz MONO # 2.1 103/ul Critically high 0.3-0.8 [facility] Comment on above: Performed By: #### CBC ####[facility] Slhzdaekgx87[address] [place], [place] [address]DrBebo Diaz Monocytes/100 WBC (Bld) 16.0 % Critically high 1.7-12.0 [facility] Comment on above: Performed By: #### CBC ####[facility] Humjzbykgs457[address] [place], [place] [address]DrBebo Diaz NEUT # 10.1 103/ul Critically high 1.4-6.5 [facility] Comment on above: Performed By: #### CBC ####[facility] Mysuomxwec260[address] [place], [place] [address]DrBebo Diaz Neutrophils/100 WBC (Bld) 75.2 % Critically high 43.0-75.0 [facility] Comment on above: Performed By: #### CBC ####[facility] Wewjqjycjg412[address] [place], [place] [address]DrBebo Diaz Platelet mean volume (Bld) [Entitic vol] 10.3 fL Normal 9.5-13.5 [facility] Comment on above: Performed By: #### CBC ####[facility] ital Hpmifqpnzm3753 [place] [address]Dr. Yuki Diaz PLT 255 103/ul Normal 150-450 [facility] Comment on above: Performed By: #### CBC ####[facility] ital Cxebyivyeo9273 [place] [address]DrBebo Yuki Diaz RBC 3.26 106/ul Critically low 4.70-6.10 [facility] Comment on above: Performed By: #### CBC ####[facility] Gpxilenlch2444 [place] [address]Dr. Yuki Diaz WBC 13.4 103/ul Critically high 4.0-11.0 [facility] Comment on above: Performed By: #### CBC ####[facility] [address]xzupvcr[address] [place], [place] [address]DrBebo Yuki Diaz CULTURE BLOODon 10-23-2022 Microscopic examination of blood, culture Culture Observations: NO GROWTH AT 5 DAYS. Normal [facility] Comment on above: Performed By: #### BLDCX1 ####[facility] Bzpcdaaste[address] [place], [place] [address]DrBebo Yuki Diaz Performed By: #### B LDCX2 ####[facility] Verfuxvshc[address] [place], [place] [address]DrBebo Yuki Diaz CULTURE URINEon 10-23-2022 CULTURE URINE Culture Observations : NO GROWTH. Normal [facility] Comment on above: Performed By: #### URCX ####[facility] Wupbmqdcqh560[address] [place], [place] [address]DrBebo Yuki Diaz [facility]05 SARS-CoV-2 (COVID-19) RNA JARVIS+probe Ql (Unsp spec) Not detected Normal NOT DETECTED [facility] Comment on above: Result Comment: When [...] for this test is supported by the [place] [employer]'s declaration that [...] be used). Performed By: #### C SYMONE ####[facility] Utijywseik[address] [place], [place] [address]Dr. Yuki Diaz ER URINE PROFILEon 3 Bilirubin Ql (U) Negative Normal NEGATIVE [facility] Comment on above: Performed By: #### MARCELLO CAZARES ####[facility] Jupvfktcbb930[address] [place], [place] [address]Dr. Yuki Diaz Clarity (U) CLEAR Normal CLEAR [facility] Comment on above: Performed By: #### MARCELLO CAZARES ####[facility] Gthkeogbxj[address] [place], [place] [address]Dr. Yuki Diaz Color (U) YELLOW Normal YELLOW [facility] Comment on above: Performed By: #### MARCELLO CAZARES ####[facility] Dzayswsndc[address] [place], [place] [address]Dr. Yuki GTZD A micrscopic examina tion will be performed if indicated. Normal [facility] Comment on above: Performed By: #### MARCELLO CAZARES ####[facility] Xcgookncmj[address] [place], [place] [address]Dr. Yuki Diaz Glucose Ql (U) Negative Normal NEGATIVE [facility] Comment on above: Performed By: #### HAKAN CAZARESRO ####[facility] Wsdtptksno[address] [place], [place] [address]Dr. Yuki Diaz Hemoglobin Ql (U) SMALL Abnormal NEGATIVE [facility] Comment on above: Performed By: #### SAGE UMICRO ####[facility] Rvfvfwpcpz85[address] [place] [address]Dr. Yuki Diaz Ketones Ql (U) Negative Normal NEGATIVE [facility] Comment on above: Performed By: #### SAGE UMICRO ####[facility] Sdzvjpmvtt7185 [place] [address]Dr. Yuki Diaz LEUKOCYTES Negative Normal NEGATIVE [facility] Comment on above: Performed By: #### SAGE UMICRO ####[facility] Wkfbbzebgp0159 [place] [address]Dr. Yuki Diaz Nitrite Ql (U) Negative Normal NEGATIVE [facility] Comment on above: Performed By: #### SAGE UMICRO ####[facility] Dtsvsslaap[address] [place], [place] [address]Dr. Yuki Diaz pH (U) 7.0 [pH] Normal 5-9 [facility] Comment on above: Performed By: #### SAGE UMICRO ####[facility] Tbyycnocjk[address] [place], [place] [address]Dr. Yuki Diaz Protein (U) [Mass/Vol] 30 mg/dL Abnormal NEGATIVE/ TRACE [facility] Comment on above: Performed By: #### SAGE UMICRO ####[facility] Uvxxnyuzkh[address] [place], [place] [address]Dr. Yuki Diaz SPEC GRAVITY 1.010 Normal 1.005-<=1. 025 [facility] Comment on above: Performed By: #### SAGE UMICRO ####[facility] Lecaduslqj[address] [place] [address]Dr. Yuki Diaz UR MICRO IND INDICATED Normal [facility] Comment on above: Performed By: #### SAGE UMICRO ####[facility] Ivywjxfhsv8991 [place] [address]Dr. Yuki Diaz Urobilinogen Qn (U) 1.0 {Chidi'U}/dL Normal 0.2 - 1.0 [facility] Comment on above: Performed By: #### ERUR, UMKETANRO ####[facility] Tsqdzqkalu[address] [place], [place] [address]Dr. Yuki Diaz INFLUENZA A AND B AGon 10-23 INFLUANEGH SEE BELOW Normal [facility] Comment on above: Result Comment: Negative for Flu A prote in angiten. Infection due to Flu A cannot be ruled out. Flu A angiten in the sample may be below the detection limit of the test. Performed By: #### I NFLUAB ####[facility] Nkesjttphc[address] [place], [place] [address]Dr. Yuki Diaz INFLUBNEGH SEE BELOW Normal [facility] Comment on above: Result Comment: Negative for Flu B prote in antigen. Infection due to Flu B cannot be ruled out. Flu B antigen in the sample may be below the detection limit of the test. Performed By: #### I NFLUAB ####[facility] Hbhmsvhzcj[address] [place], [place] [address]Dr. Yuki [facility] INFLUENZA A AG Negative Normal NEGATIVE SEE COMMENT [facility] Comment on above: Performed By: #### INFLUAB ####[facility] Chfutaqmnr[address] [place], [place] [address]Dr. Yuki [facility] INFLUENZA B AG Negative Normal NEGATIVE SEE COMMENT [facility] Comment on above: Performed By: #### INFLUAB ####[facility] Tjjacqxxoo[address] [place], [place] [address]Dr. Yuki Diaz LACTATE/LACTIC ACIDon 2022 Lactate [Moles/Vol] 1.3 mmol/L Normal 0.4-2.0 [facility] Comment on above: Performed By: #### LACT ####[facility] Uvhobviukb99[address] [place], [place] [address]Dr. Yuki Diaz Lactate [Moles/Vol] 1.6 mmol/L Normal 0.4-2.0 [facility] Comment on above: Performed By: #### LACT ####[facility] Jgifrrunhy[address] [place], [place] [address]Dr. Yuki [facility] Lactate [Moles/Vol] 1.5 mmol/L Normal 0.4-2.0 [facility] Comment on above: Performed By: #### LACT ####[facility] Gvehjkgolf[address]46 [place] [address]Dr. Yuki Diaz POINT OF CARE GLUCOSEon 10-05 Glucose [Mass/Vol] 127 mg/dL Critically high 74-106 [facility] Comment on above: Performed By: #### POCGLUC ####[facility] Pftuslqgqj4613 [place] [address]Dr. Yuki Diaz Glucose [Mass/Vol] 145 mg/dL Critically high 74-106 [facility] Comment on above: Performed By: #### POCGLUC ####[facility] Zwqzescoch2928 [place] [address]Dr. Yuki Diaz PROF 14(COMP METB)on 023 Albumin [Mass/Vol] 3.4 g/dL Normal 3.4-5.0 [facility] Comment on above: Performed By: #### CMP ####[facility] Ldjmavsjkt1581 [place] [address]Dr. Yuki Diaz Albumin/Globulin [Mass ratio] 0.8 {ratio} Normal [facility] Comment on above: Performed By: #### CMP ####[facility] Egdxbbwosq7882 [place] [address]Dr. Yuki Diaz ALP [Catalytic activity/Vol] 100 U/L Normal 46-116 [facility] Comment on above: Performed By: #### CMP ####[facility] Ygjyvfzfjv1899 [place] [address]Dr. Yuki Diaz ALT [Catalytic activity/Vol] 15 U/L Critically low 16-63 [facility] Comment on above: Performed By: #### CMP ####[facility] Eczkoqenhy6696 [place] [address]Dr. Yuki Diaz Anion gap [Moles/Vol] 14.2 mmol/L Normal [facility] Comment on above: Performed By: #### CMP ####[facility] Uqvujjguqk1846 [place] [address]Dr. Yuki Diaz AST [Catalytic activity/Vol] 12 U/L Critically low 15-37 [facility] Comment on above: Performed By: #### CMP ####[facility] Wtpigehuuz5902 [place] [address]Dr. Yuki Diaz Bilirubin [Mass/Vol] 0.8 mg/dL Normal 0.2-1.0 [facility] Comment on above: Performed By: #### CMP ####[facility] ital Errdlvpvkf4664 [place] [address]Dr. Yuki Diaz Calcium [Mass/Vol] 9.0 mg/dL Normal 8.5-10.1 [facility] Comment on above: Performed By: #### CMP ####[facility] ital Xevdqmmdfy0484 [place] [address]Dr. Yuki Diaz Chloride [Moles/Vol] 101 mmol/L Normal 98-107 [facility] Comment on above: Performed By: #### CMP ####[facility] Soshykfqgz1037 [place] [address]Dr. Yuki Diaz CO2 [Moles/Vol] 30.3 mmol/L Normal 21.0-32.0 [facility] Comment on above: Performed By: #### CMP ####[facility] ital Huauipygnx8470 [place] [address]Dr. Yuki Diaz Creatinine [Mass/Vol] 2.86 mg/dL Critically high 0.70-1.30 [facility] Comment on above: Performed By: #### CMP ####[facility] Pmddoruxax5913 [place] [address]Dr. Yuki Joe EGFR-AF DJIBOUTIAN 26 mL/min/1.73m2 Critically low >=60 [facility] Comment on above: Performed By: #### CMP ####[facility] Ymlcoikxws5081 [place] [address]Dr. Yuki Joe EGFR-NON AF DJIBOUTIAN 21 mL/min/1.73m2 Critically low >=60 [facility] Comment on above: Performed By: #### CMP ####[facility] Sbbbcfqwyl0595 [place] [address]Dr. Yuki Joe Globulin (S) [Mass/Vol] 4.1 g/dL Normal [facility] Comment on above: Performed By: #### CMP ####[facility] ital Imanfiirsm[address] [place] [address]Dr. Yuki Diaz Glucose [Mass/Vol] 153 mg/dL Critically high 74-106 [facility] Comment on above: Performed By: #### CMP ####[facility] ital Mqkvnidrfb3604 [place] [address]Dr. Yuki Diaz Potassium [Moles/Vol] 4.5 mmol/L Normal 3.5-5.1 [facility] Comment on above: Performed By: #### CMP ####[facility] ital Lvhphqywxd1356 [place] [address]Dr. Yuki Diaz Protein [Mass/Vol] 7.5 g/dL Normal 6.4-8.2 [facility] Comment on above: Performed By: #### CMP ####[facility] ital Caknprmnww4215 [place] [address]Dr. Yuki Diaz Sodium [Moles/Vol] 141 mmol/L Normal 136-145 [facility] Comment on above: Performed By: #### CMP ####[facility] ital Vdcmqoxmcy7163 [place] [address]Dr. Yuki Diaz Urea nitrogen [Mass/Vol] 40.0 mg/dL Critically high 7.0-18.0 [facility] Comment on above: Performed By: #### CMP ####[facility] ital Tyknotlgyk7862 [place] [address]Dr. Yuki Diaz Urea nitrogen/Creatin ine [Mass ratio] 14.0 mg/mg Normal [facility] Comment on above: Performed By: #### CMP ####[facility] ital Tobwthsiho8860 [place] [id number]. Yuki Joe URINE MICROSCOPIC ONLYon BACTERIA NONE SEEN Normal NONE SEEN [facility] Comment on above: Performed By: #### MARCELLO CAZARES ####[facility] Ywppevziny2704 [place] [id number]. Yuki Joe Bacteria identified Cx Nom (U) CX ALREADY ORDERED Normal [facility] Comment on above: Performed By: #### SAGE UMICRO ####[facility] Zhisvjvoik6051 [place] [address]Dr. Yuki Diaz CAST NONE SEEN Normal NONE SEEN [facility] Comment on above: Performed By: #### SAGE UMICRO ####[facility] Hapofrlhao6896 [place] [address]Dr. Yuki Diaz Crystals LM Nom (Urine sed) NONE SEEN Normal NONE SEEN [facility] Comment on above: Performed By: #### SAGE UMICRO ####[facility] Mkdfqwkfcl4658 [place] [address]Dr. Yuki Diaz Epithelial cells LM Ql (Urine sed) NONE SEEN Normal NONE SEEN /RARE [facility] Comment on above: Performed By: #### SAGE UMICRO ####[facility] Ltmtrbzqbx8179 [place] [address]Dr. Yuki Diaz MUCOUS NONE SEEN Normal NONE SEEN [facility] Comment on above: Performed By: #### SAGE UMICRO ####[facility] Subiwhmqcb[address] [place], [place] [address]Dr. Monselayssa Diaz RBC 0-2 Normal 0-2 [facility] Comment on above: Performed By: #### SAGE UMICRO ####[facility] Emkprhhpjc[address] [place], [place] [address]Dr. Yuki Diaz WBC NONE SEEN Normal NONE SEEN [facility] Comment on above: Performed By: #### SAGE UMICRO ####[facility] Lsgyaajvqa[address] [place], [place] [address]Dr. Yuki Diaz XR KNEE RT 4V or >on 023 XR KNEE RT 4V or > Normal [facility] XR HAND LT MIN 3Von 10-23-19 23 XR HAND LT MIN 3V Normal [facility] BNPon 10-13-2022 Natriuretic peptide B (Bld) [Mass/Vol] 1093.0 pg/mL Normal <=1,800.0 [facility] Comment on above: Performed By: #### BMP, BNP ####[facility] Wstfrywspr5665 [place] [address]Dr. Yuki Diaz PROF CHEM 8 (BAS METB)on Anion gap [Moles/Vol] 9.7 mmol/L Normal [facility] Comment on above: Performed By: #### BMP, BNP ####[facility] Whczzleqwd6287 [place] [address]Dr. Yuki Diaz Calcium [Mass/Vol] 8.6 mg/dL Normal 8.5-10.1 [facility] Comment on above: Performed By: #### BMP, BNP ####[facility] Htyjjwtxct[address] [place], [place] [address]Dr. Yuki Diaz Chloride [Moles/Vol] 105 mmol/L Normal 98-107 [facility] Comment on above: Performed By: #### BMP, BNP ####[facility] Tybmjxioeg[address] [place], [place] [address]Dr. Yuki Diaz CO2 [Moles/Vol] 31.1 mmol/L Normal 21.0-32.0 [facility] Comment on above: Performed By: #### BMP, BNP ####[facility] Bzbmhjnzjp[address] [place], [place] [address]Dr. Yuki Diaz Creatinine [Mass/Vol] 2.46 mg/dL Critically high 0.70-1.30 [facility] Comment on above: Performed By: #### BMP, BNP ####[facility] Ndnnshuddi[address] [place], [place] [address]Dr. Yuki Diaz EGFR-AF DJIBOUTIAN 31 mL/min/1.73m2 Critically low >=60 [facility] Comment on above: Performed By: #### BMP, BNP ####[facility] Pbdatfjvyq[address] [place], [place] [address]Dr. Yuki Diaz EGFR-NON AF DJIBOUTIAN 25 mL/min/1.73m2 Critically low >=60 [facility] Comment on above: Performed By: #### BMP, BNP ####[facility] Rponfvjxjy[address] [place], [place] [address]Dr. Yuki Diaz Glucose [Mass/Vol] 155 mg/dL Critically high 74-106 [facility] Comment on above: Performed By: #### BMP, BNP ####[facility] Dlcnbraqay3999 [place], [place] [address]Os. Yuki Diaz Potassium [Moles/Vol] 3.8 mmol/L Normal 3.5-5.1 [facility] Comment on above: Performed By: #### BMP, BNP ####[facility] Ipbouyqftd2361 [place], [place] [address]Hb. Yuki Diaz Sodium [Moles/Vol] 142 mmol/L Normal 136-145 [facility] Comment on above: Performed By: #### BMP, BNP ####[facility] Kearptsdnh7463 [place], [place] [address]Ow. Yuki Diaz Urea nitrogen [Mass/Vol] 37.0 mg/dL Critically high 7.0-18.0 [facility] Comment on above: Performed By: #### BMP, BNP ####[facility] Mbtxndthvc3329 [place] [phone]. Yuki Diaz Urea nitrogen/Creatin ine [Mass ratio] 15.0 mg/mg Normal [facility] Comment on above: Performed By: #### BMP, BNP ####[facility] Lvcmsolpvw3863 [place], [place] [address]Cw. Yuki Diaz Provider Letteron 09-20-2022 Provider Letter (Inserted Image. Alice ble to display) September 20, 2022 [address] [place] [id number] SHENG BAUER 1940 Dear Sheng , You [...] appreciate your understanding. Sincerely, [facility] [address], [place] [address] Normal [facility] BNPon 09-19-2022 Natriuretic peptide B (Bld) [Mass/Vol] 1200.0 pg/mL Normal <=1,800.0 [facility] Comment on above: Performed By: #### CMP, BNP ####[facility] Exrybxqyzj6210 [place] [address]Dr. Yuki Diaz PROF 14(COMP METB)on 023 Albumin [Mass/Vol] 3.2 g/dL Critically low 3.4-5.0 [facility] Comment on above: Performed By: #### CMP, BNP ####[facility] Jfwadlybat2022 [place] [address]Dr. Yuki Diaz Albumin/Globulin [Mass ratio] 0.8 {ratio} Normal [facility] Comment on above: Performed By: #### CMP, BNP ####[facility] Cqemxzarrn[address] [place], [place] [address]Dr. Yuki Diaz ALP [Catalytic activity/Vol] 93 U/L Normal 46-116 [facility] Comment on above: Performed By: #### CMP, BNP ####[facility] Htdiokrfsv[address] [place], [place] [address]Dr. Yuki Diaz ALT [Catalytic activity/Vol] 16 U/L Normal 16-63 [facility] Comment on above: Performed By: #### CMP, BNP ####[facility] Apntezonll[address] [place], [place] [address]Dr. Yuki Diaz Anion gap [Moles/Vol] 13.6 mmol/L Normal [facility] Comment on above: Performed By: #### CMP, BNP ####[facility] Gprlymsvxb[address] [place], [place] [address]Dr. Yuki Diaz AST [Catalytic activity/Vol] 13 U/L Critically low 15-37 [facility] Comment on above: Performed By: #### CMP, BNP ####[facility] Vaadnfyaeh[address] [place], [place] [address]Dr. Yuki Diaz Bilirubin [Mass/Vol] 0.5 mg/dL Normal 0.2-1.0 [facility] Comment on above: Performed By: #### CMP, BNP ####[facility] Nrthojecsb6438 [place] [address]Dr. Yuki Diaz Calcium [Mass/Vol] 8.9 mg/dL Normal 8.5-10.1 [facility] Comment on above: Performed By: #### CMP, BNP ####[facility] Drrssnvvgw4999 [place] [address]Dr. Yuki Diaz Chloride [Moles/Vol] 107 mmol/L Normal 98-107 [facility] Comment on above: Performed By: #### CMP, BNP ####[facility] Iztaqmmfch0281 [place] [address]Dr. Yuki Diaz CO2 [Moles/Vol] 28.7 mmol/L Normal 21.0-32.0 [facility] Comment on above: Performed By: #### CMP, BNP ####[facility] Qbgnkmcjrs[address] [place], [place] [address]Dr. Yuki Diaz Creatinine [Mass/Vol] 2.61 mg/dL Critically high 0.70-1.30 [facility] Comment on above: Performed By: #### CMP, BNP ####[facility] Crjdvhrhtn[address] [place], [place] [address]Dr. Yuki Diaz EGFR-AF DJIBOUTIAN 29 mL/min/1.73m2 Critically low >=60 [facility] Comment on above: Performed By: #### CMP, BNP ####[facility] Ayfhcsryre[address] [place], [place] [address]Dr. Yuki Diaz EGFR-NON AF DJIBOUTIAN 24 mL/min/1.73m2 Critically low >=60 [facility] Comment on above: Performed By: #### CMP, BNP ####[facility] Fyzspcmfct[address] [place], [place] [address]Dr. Yuki Diaz Globulin (S) [Mass/Vol] 4.0 g/dL Normal [facility] Comment on above: Performed By: #### CMP, BNP ####[facility] Lvggkxfbap[address] [place], [place] [address]Dr. Yuki Joe Glucose [Mass/Vol] 119 mg/dL Critically high 74-106 [facility] Comment on above: Performed By: #### CMP, BNP ####[facility] Rqjmfxwltj2974 [place] [address]Dr. Yuki Diaz Potassium [Moles/Vol] 4.3 mmol/L Normal 3.5-5.1 [facility] Comment on above: Performed By: #### CMP, BNP ####[facility] Ucoqceviis6314 [place] [address]Dr. Yuki Diaz Protein [Mass/Vol] 7.2 g/dL Normal 6.4-8.2 [facility] Comment on above: Performed By: #### CMP, BNP ####[facility] Ipwwwsrvyt8728 [place] [address]Dr. Yuki Diaz Sodium [Moles/Vol] 145 mmol/L Normal 136-145 [facility] Comment on above: Performed By: #### CMP, BNP ####[facility] Ivzykrsnrz2738 [place] [address]Dr. Yuki Diaz Urea nitrogen [Mass/Vol] 42.0 mg/dL Critically high 7.0-18.0 [facility] Comment on above: Performed By: #### CMP, BNP ####[facility] Jalkxpgyih4088 [place] [address]Dr. Yuki Diaz Urea nitrogen/Creatin ine [Mass ratio] 16.1 mg/mg Normal [facility] Comment on above: Performed By: #### CMP, BNP ####[facility] Wmwhycosyp[address] [place], [place] [address]Dr. Yuki Diaz Office Visiton 09-12-2022 Follow-up visit [id number] Nohelia Bauer 1940 M Date Provider Department Center 09/12/2022 OREN PEDRO [facility] Family History Problem Relation Age of Onset Coronary artery disease Mother Family Status - Relation Status Age at Mother Level of Service:99478 SC OFFICE/OUTPATIENT ESTABLISHED LOW MDM 20-29 MIN Reason for Visit and Comments: Congestive Heart Failure [127] Coronary Artery Disease [187] Hypertension [886666] Normal [facility] BNPon 09-02-2022 Natriuretic peptide B (Bld) [Mass/Vol] 1506.0 pg/mL Normal <=1,800.0 [facility] Comment on above: Performed By: #### CMP, BNP ####[facility] Vsdxjcxwvd3047 [place] [address]Dr. Yuki Diaz PROF 14(COMP METB)on 023 Albumin [Mass/Vol] 3.0 g/dL Critically low 3.4-5.0 [facility] Comment on above: Performed By: #### CMP, BNP ####[facility] Rhnytxnbqv[address] [place], [place] [address]Dr. Yuki Diaz Albumin/Globulin [Mass ratio] 0.8 {ratio} Normal [facility] Comment on above: Performed By: #### CMP, BNP ####[facility] M[address]wjgzaua[address] [place], [place] [address]Dr. Yuki Diaz ALP [Catalytic activity/Vol] 89 U/L Normal 46-116 [facility] Comment on above: Performed By: #### CMP, BNP ####[facility] Fuqtfchcun[address] [place], [place] [address]Dr. Yuki Diaz ALT [Catalytic activity/Vol] 17 U/L Normal 16-63 [facility] Comment on above: Performed By: #### CMP, BNP ####[facility] Ggidemdhht264[address] [place], [place] [address]Dr. Yuki Diaz Anion gap [Moles/Vol] 12.2 mmol/L Normal [facility] Comment on above: Performed By: #### CMP, BNP ####[facility] Rsbtkeyfru[address] [place], [place] [address]Dr. Yuki Diaz AST [Catalytic activity/Vol] 13 U/L Critically low 15-37 [facility] Comment on above: Performed By: #### CMP, BNP ####[facility] Zbsaduzdpp[address] [place], [place] [address]Dr. Yuki Diaz Bilirubin [Mass/Vol] 0.4 mg/dL Normal 0.2-1.0 [facility] Comment on above: Performed By: #### CMP, BNP ####[facility] Msiqmfmlul8[address] [place], [place] [address]Dr. Yuki Diaz Calcium [Mass/Vol] 8.8 mg/dL Normal 8.5-10.1 [facility] Comment on above: Performed By: #### CMP, BNP ####[facility] Lavoecizqu[address] [place], [place] [address]Dr. Yuki Diaz Chloride [Moles/Vol] 104 mmol/L Normal 98-107 [facility] Comment on above: Performed By: #### CMP, BNP ####[facility] Huacmsaguj[address] [place], [place] [address]Dr. Yuki Diaz CO2 [Moles/Vol] 31.4 mmol/L Normal 21.0-32.0 [facility] Comment on above: Performed By: #### CMP, BNP ####[facility] Jjrzoyxpwy[address] [place], [place] [address]Dr. Yuki Diaz Creatinine [Mass/Vol] 2.76 mg/dL Critically high 0.70-1.30 [facility] Comment on above: Performed By: #### CMP, BNP ####[facility] Iwvywxkxyj[address] [place], [place] [address]Dr. Yuki Diaz EGFR-AF DJIBOUTIAN 27 mL/min/1.73m2 Critically low >=60 [facility] Comment on above: Performed By: #### CMP, BNP ####[facility] Hnjjjzlkmd[address] [place], [place] [address]Dr. Yuki Diaz EGFR-NON AF DJIBOUTIAN 22 mL/min/1.73m2 Critically low >=60 [facility] Comment on above: Performed By: #### CMP, BNP ####[facility] Vwmesomrop[address] [place], [place] [address]Dr. Yuki Diaz Globulin (S) [Mass/Vol] 3.8 g/dL Normal [facility] Comment on above: Performed By: #### CMP, BNP ####[facility] Qeyxgpewrj[address] [place], [place] [address]Dr. Yuki Diaz Glucose [Mass/Vol] 200 mg/dL Critically high 74-106 [facility] Comment on above: Performed By: #### CMP, BNP ####[facility] Epzizhqvaw5745 [place] [address]Dr. Yuki Diaz Potassium [Moles/Vol] 4.6 mmol/L Normal 3.5-5.1 [facility] Comment on above: Performed By: #### CMP, BNP ####[facility] Lalwacluhq[address] [place], [place] [address]Dr. Yuki Diaz Protein [Mass/Vol] 6.8 g/dL Normal 6.4-8.2 [facility] Comment on above: Performed By: #### CMP, BNP ####[facility] Smmibwzyvg[address] [place], [place] [address]Dr. Monsealyssa Diaz Sodium [Moles/Vol] 143 mmol/L Normal 136-145 [facility] Comment on above: Performed By: #### CMP, BNP ####[facility] Zosnrobyae[address] [place], [place] [address]Dr. Yuki Diaz Urea nitrogen [Mass/Vol] 44.0 mg/dL Critically high 7.0-18.0 [facility] Comment on above: Performed By: #### CMP, BNP ####[facility] Vwkcidyajx[address] [place], [place] [address]Dr. Yuki Diaz Urea nitrogen/Creatin ine [Mass ratio] 15.9 mg/mg Normal [facility] Comment on above: Performed By: #### CMP, BNP ####[facility] [address]dsqylgv[address] [place], [place] [address]Dr. Yuki Diaz ECHOCARDIO M/2D COMPLETEon 1 09-20-2021 ECHOCARDIO M/2D COMPLETE Normal [facility] Lab Reportson 06-15-2022 Lab Reports [id number]:127 Normal [facility] PROF 14(COMP METB)on 022 Albumin [Mass/Vol] 3.0 g/dL Critically low 3.4-5.0 [facility] Comment on above: Performed By: #### CMP ####[facility] Nowfmvngtn[address] [place], [place] [address]Dr. Yuki Diaz Albumin/Globulin [Mass ratio] 0.9 {ratio} Normal [facility] Comment on above: Performed By: #### CMP ####[facility] Fejidupwut[address] [place] [address]Dr. Yuki Diaz ALP [Catalytic activity/Vol] 73 U/L Normal 46-116 [facility] Comment on above: Performed By: #### CMP ####[facility] Nsiagophqq7531 [place] [address]Dr. Yuki Diaz ALT [Catalytic activity/Vol] 21 U/L Normal 16-63 [facility] Comment on above: Performed By: #### CMP ####[facility] Yuhajzryoo4764 [place] [address]Dr. Yuki Diaz Anion gap [Moles/Vol] 8.5 mmol/L Normal [facility] Comment on above: Performed By: #### CMP ####[facility] Pqolonazqp6793 [place] [address]Dr. Yuki Diaz AST [Catalytic activity/Vol] 11 U/L Critically low 15-37 [facility] Comment on above: Performed By: #### CMP ####[facility] Dsfplftrti3687 [place] [address]Dr. Yuki Diaz Bilirubin [Mass/Vol] 0.6 mg/dL Normal 0.2-1.0 [facility] Comment on above: Performed By: #### CMP ####[facility] Hdkubocagm1948 [place] [address]Dr. Yuki Diaz Calcium [Mass/Vol] 8.7 mg/dL Normal 8.5-10.1 [facility] Comment on above: Performed By: #### CMP ####[facility] Xzhqquutau1066 [place] [address]Dr. Yuki Diaz Chloride [Moles/Vol] 104 mmol/L Normal 98-107 [facility] Comment on above: Performed By: #### CMP ####[facility] Gdiinjswzj8993 [place] [address]Dr. Yuki Diaz CO2 [Moles/Vol] 32.7 mmol/L Critically high 21.0-32.0 [facility] Comment on above: Performed By: #### CMP ####[facility] Nxmtyaegkc7762 [place] [id number]. Yuki Diaz Creatinine [Mass/Vol] 2.43 mg/dL Critically high 0.70-1.30 [facility] Comment on above: Performed By: #### CMP ####[facility] Uauaztlfom3515 [place] [address]Dr. Yuki Diaz EGFR-AF DJIBOUTIAN 31 mL/min/1.73m2 Critically low >=60 [facility] Comment on above: Performed By: #### CMP ####[facility] Dxkjmqxyxa5335 [place] [address]Dr. Yuki Diaz EGFR-NON AF DJIBOUTIAN 26 mL/min/1.73m2 Critically low >=60 [facility] Comment on above: Performed By: #### CMP ####[facility] Ldiybvirlb4411 [place] [address]Dr. Yuki Diaz Globulin (S) [Mass/Vol] 3.4 g/dL Normal [facility] Comment on above: Performed By: #### CMP ####[facility] Enfirdioet7673 [place] [address]Dr. Yuki Diaz Glucose [Mass/Vol] 155 mg/dL Critically high 74-106 [facility] Comment on above: Performed By: #### CMP ####[facility] Itdrnuervt2243 [place] [address]Dr. Yuki Diaz Potassium [Moles/Vol] 4.2 mmol/L Normal 3.5-5.1 [facility] Comment on above: Performed By: #### CMP ####[facility] Sccxkwmyci9329 [place] [address]Dr. Yuki Diaz Protein [Mass/Vol] 6.4 g/dL Normal 6.4-8.2 [facility] Comment on above: Performed By: #### CMP ####[facility] Tuegnueuiu2416 [place] [address]Dr. Yuki Diaz Sodium [Moles/Vol] 141 mmol/L Normal 136-145 [facility] Comment on above: Performed By: #### CMP ####[facility] Fjbvkmexxd9318 [place] [address]Dr. Yuki Diaz Urea nitrogen [Mass/Vol] 47.0 mg/dL Critically high 7.0-18.0 [facility] Comment on above: Performed By: #### CMP ####[facility] Mxurvuiykz8925 [place] [address]Dr. Yuki Diaz Urea nitrogen/Creatin ine [Mass ratio] 19.3 mg/mg Normal [facility] Comment on above: Performed By: #### CMP ####[facility] Etdijonhjn8023 [place] [address]Dr. Yuki Diaz PROF 14(COMP METB)on 022 Albumin [Mass/Vol] 2.9 g/dL Critically low 3.4-5.0 [facility] Comment on above: Performed By: #### CMP ####[facility] Zzicmrcksy4499 [place] [address]Dr. Yuki Diaz Albumin/Globulin [Mass ratio] 0.8 {ratio} Normal [facility] Comment on above: Performed By: #### CMP ####[facility] Faonbfsqkx8530 [place] [address]Dr. Yuki Diaz ALP [Catalytic activity/Vol] 86 U/L Normal 46-116 [facility] Comment on above: Performed By: #### CMP ####[facility] Dhnfwrhlid2506 [place] [address]Dr. Yuki Diaz ALT [Catalytic activity/Vol] 27 U/L Normal 16-63 [facility] Comment on above: Performed By: #### CMP ####[facility] Cngxatqzou4349 [place] [address]Dr. Yuki Diaz Anion gap [Moles/Vol] 11.5 mmol/L Normal [facility] Comment on above: Performed By: #### CMP ####[facility] Wgmoklbitj4704 [place] [address]Dr. Yuki Diaz AST [Catalytic activity/Vol] 10 U/L Critically low 15-37 [facility] Comment on above: Performed By: #### CMP ####[facility] Jjeocvcuoj2409 [place] [address]Dr. Yuki Diaz Bilirubin [Mass/Vol] 0.5 mg/dL Normal 0.2-1.0 [facility] Comment on above: Performed By: #### CMP ####[facility] Ljfytfbkmr5844 [place] [address]Dr. Yuki Diaz Calcium [Mass/Vol] 8.6 mg/dL Normal 8.5-10.1 [facility] Comment on above: Performed By: #### CMP ####[facility] Dzxzxzpfhm9778 [place] [address]Dr. Yuki Diaz Chloride [Moles/Vol] 108 mmol/L Critically high 98-107 [facility] Comment on above: Performed By: #### CMP ####[facility] Uiwwlkrovi2498 [place] [address]Dr. Yuki Diaz CO2 [Moles/Vol] 28.0 mmol/L Normal 21.0-32.0 [facility] Comment on above: Performed By: #### CMP ####[facility] Cmsrwupfyf0283 [place] [address]Dr. Yuki Diaz Creatinine [Mass/Vol] 2.58 mg/dL Critically high 0.70-1.30 [facility] Comment on above: Performed By: #### CMP ####[facility] Enidywtyed1111 [place] [address]Dr. Yuki Diaz EGFR-AF DJIBOUTIAN 29 mL/min/1.73m2 Critically low >=60 [facility] Comment on above: Performed By: #### CMP ####[facility] Issgyoazlo2983 [place] [address]Dr. Yuki Diaz EGFR-NON AF DJIBOUTIAN 24 mL/min/1.73m2 Critically low >=60 [facility] Comment on above: Performed By: #### CMP ####[facility] Jxzjxrersa0594 [place] [address]Dr. Yuki Diaz Globulin (S) [Mass/Vol] 3.5 g/dL Normal [facility] Comment on above: Performed By: #### CMP ####[facility] Faiedovolb8593 [place] [id number]. Yuki Diaz Glucose [Mass/Vol] 136 mg/dL Critically high 74-106 [facility] Comment on above: Performed By: #### CMP ####[facility] Ugfwazmnlu9532 [place] [id number]. Yuki Diaz Potassium [Moles/Vol] 4.5 mmol/L Normal 3.5-5.1 [facility] Comment on above: Performed By: #### CMP ####[facility] Mkaqplzdzh7937 [place] [address]Dr. Yuki Diaz Protein [Mass/Vol] 6.4 g/dL Normal 6.4-8.2 [facility] Comment on above: Performed By: #### CMP ####[facility] Vlwhdojjui2205 [place] [address]Dr. Yuki Diaz Sodium [Moles/Vol] 143 mmol/L Normal 136-145 [facility] Comment on above: Performed By: #### CMP ####[facility] Skqkvmdyzr8324 [place] [address]Dr. Yuki Diaz Urea nitrogen [Mass/Vol] 48.0 mg/dL Critically high 7.0-18.0 [facility] Comment on above: Performed By: #### CMP ####[facility] Hkbrposqcl7362 [place] [address]Dr. Yuki Diaz Urea nitrogen/Creatin ine [Mass ratio] 18.6 mg/mg Normal [facility] Comment on above: Performed By: #### CMP ####[facility] Jekvsbbndx3951 [place] [address]Dr. Yuki Diaz PROF 14(COMP METB)on 022 Albumin [Mass/Vol] 3.2 g/dL Critically low 3.4-5.0 [facility] Comment on above: Performed By: #### CMP ####[facility] Puyzduwkhw6798 [place] [address]Dr. Yuki Diaz Albumin/Globulin [Mass ratio] 0.9 {ratio} Normal [facility] Comment on above: Performed By: #### CMP ####[facility] Rynxeavafi5127 [place] [address]Dr. Yuki Diaz ALP [Catalytic activity/Vol] 89 U/L Normal 46-116 [facility] Comment on above: Performed By: #### CMP ####[facility] Cupglepsmk1443 [place] [address]Dr. Yuki Diaz ALT [Catalytic activity/Vol] 113 U/L Critically high 16-63 [facility] Comment on above: Performed By: #### CMP ####[facility] Pzqipbrszf6026 [place] [address]Dr. Yuki Diaz Anion gap [Moles/Vol] 10.8 mmol/L Normal [facility] Comment on above: Performed By: #### CMP ####[facility] Rbdednrwju6782 [place] [address]Dr. Yuki Diaz AST [Catalytic activity/Vol] 32 U/L Normal 15-37 [facility] Comment on above: Performed By: #### CMP ####[facility] Dlgsmtfurb2184 [place] [address]Dr. Yuki Diaz Bilirubin [Mass/Vol] 0.7 mg/dL Normal 0.2-1.0 [facility] Comment on above: Performed By: #### CMP ####[facility] Krrzemwjqo1555 [place] [address]Dr. Yuki Diaz Calcium [Mass/Vol] 8.8 mg/dL Normal 8.5-10.1 [facility] Comment on above: Performed By: #### CMP ####[facility] Ltxykcrpqt2233 [place] [address]Dr. Yuki Diaz Chloride [Moles/Vol] 106 mmol/L Normal 98-107 [facility] Comment on above: Performed By: #### CMP ####[facility] Cywtidlomn0318 [place] [address]Dr. Yuki Diaz CO2 [Moles/Vol] 30.4 mmol/L Normal 21.0-32.0 [facility] Comment on above: Performed By: #### CMP ####[facility] Eqjvwwdmmc0163 [place] [id number]. Yuki Diaz Creatinine [Mass/Vol] 2.54 mg/dL Critically high 0.70-1.30 [facility] Comment on above: Performed By: #### CMP ####[facility] Wwmephemok0055 [place] [address]Dr. Yuki Diaz EGFR-AF DJIBOUTIAN 30 mL/min/1.73m2 Critically low >=60 [facility] Comment on above: Performed By: #### CMP ####[facility] Dnwjosidqp8499 [place] [address]Dr. Yuki Diaz EGFR-NON AF DJIBOUTIAN 25 mL/min/1.73m2 Critically low >=60 [facility] Comment on above: Performed By: #### CMP ####[facility] Jctjrboqlz3879 [place] [address]Dr. Yuki Diaz Globulin (S) [Mass/Vol] 3.4 g/dL Normal [facility] Comment on above: Performed By: #### CMP ####[facility] Zfjbsmiqua4997 [place] [address]Dr. Yuki Diaz Glucose [Mass/Vol] 114 mg/dL Critically high 74-106 [facility] Comment on above: Performed By: #### CMP ####[facility] Dnyjptptsk7140 [place] [address]Dr. Yuki Diaz Potassium [Moles/Vol] 4.2 mmol/L Normal 3.5-5.1 [facility] Comment on above: Performed By: #### CMP ####[facility] Gchrixihlv0917 [place] [address]Dr. Yuki Diaz Protein [Mass/Vol] 6.6 g/dL Normal 6.4-8.2 [facility] Comment on above: Performed By: #### CMP ####[facility] Yvrkvlikwy3686 [place] [address]Dr. Yuki Diaz Sodium [Moles/Vol] 143 mmol/L Normal 136-145 [facility] Comment on above: Performed By: #### CMP ####[facility] Udwlmwldad4451 [place] [address]Dr. Yuki Diaz Urea nitrogen [Mass/Vol] 65.0 mg/dL Critically high 7.0-18.0 [facility] Comment on above: Performed By: #### CMP ####[facility] Vmfxdhvqeq7825 [place] [address]Dr. Yuki Diaz Urea nitrogen/Creatin ine [Mass ratio] 25.6 mg/mg Normal [facility] Comment on above: Performed By: #### CMP ####[facility] Hcndllyxrw6424 [place] [address]Dr. Yuki Diaz XR HIP RT INJon 04-01-2022 XR HIP RT INJ Normal [facility] PROF 14(COMP METB)on 022 Albumin [Mass/Vol] 3.6 g/dL Normal 3.4-5.0 [facility] Comment on above: Performed By: #### CMP ####[facility] Mvmaykancy0788 [place] [address]Dr. Yuki Diaz Albumin/Globulin [Mass ratio] 0.9 {ratio} Normal [facility] Comment on above: Performed By: #### CMP ####[facility] Zxaqpxcqmd7948 [place] [address]Dr. Yuki Diaz ALP [Catalytic activity/Vol] 91 U/L Normal 46-116 [facility] Comment on above: Performed By: #### CMP ####[facility] Uvfsdlmvhh5188 [place] [address]Dr. Yuki Diaz ALT [Catalytic activity/Vol] 19 U/L Normal 16-63 [facility] Comment on above: Performed By: #### CMP ####[facility] Wsgsphacdq3024 [place] [address]Dr. Yuki Diaz Anion gap [Moles/Vol] 12.3 mmol/L Normal [facility] Comment on above: Performed By: #### CMP ####[facility] Grrzfwjsjz1218 [place] [address]Dr. Yuki Diaz AST [Catalytic activity/Vol] 14 U/L Critically low 15-37 [facility] Comment on above: Performed By: #### CMP ####[facility] Oiwjnembkg1815 [place] [id number]. Yuki Diaz Bilirubin [Mass/Vol] 0.7 mg/dL Normal 0.2-1.0 [facility] Comment on above: Performed By: #### CMP ####[facility] Koxybdfhgt2765 [place] [id number]. Yuki Diaz Calcium [Mass/Vol] 8.9 mg/dL Normal 8.5-10.1 [facility] Comment on above: Performed By: #### CMP ####[facility] Tmybofytuo9704 [place] [address]Dr. Yuki Diaz Chloride [Moles/Vol] 102 mmol/L Normal 98-107 [facility] Comment on above: Performed By: #### CMP ####[facility] Ebkpwasbkj4747 [place] [address]Dr. Yuki Diaz CO2 [Moles/Vol] 30.4 mmol/L Normal 21.0-32.0 [facility] Comment on above: Performed By: #### CMP ####[facility] Cqdrqvyxjq9707 [place] [address]Dr. Yuki Diaz Creatinine [Mass/Vol] 2.13 mg/dL Critically high 0.70-1.30 [facility] Comment on above: Performed By: #### CMP ####[facility] Rvfdlqtdld4180 [place] [address]Dr. Yuki Joe EGFR-AF DJIBOUTIAN 37 mL/min/1.73m2 Critically low >=60 [facility] Comment on above: Performed By: #### CMP ####[facility] Hpdzynlrev8425 [place] [id number]. Yuki Joe EGFR-NON AF DJIBOUTIAN 30 mL/min/1.73m2 Critically low >=60 [facility] Comment on above: Performed By: #### CMP ####[facility] Tuypppuvnv8343 [place] [id number]. Yuki Joe Globulin (S) [Mass/Vol] 3.9 g/dL Normal [facility] Comment on above: Performed By: #### CMP ####[facility] Ncbsuihssb7082 [place] [address]Dr. Yuki Diaz Glucose [Mass/Vol] 146 mg/dL Critically high 74-106 [facility] Comment on above: Performed By: #### CMP ####[facility] Ccplgfdoab9175 [place] [address]Dr. Yuki Diaz Potassium [Moles/Vol] 3.7 mmol/L Normal 3.5-5.1 [facility] Comment on above: Performed By: #### CMP ####[facility] Lhxdyuvcio5955 [place] [address]Dr. Yuki Diaz Protein [Mass/Vol] 7.5 g/dL Normal 6.4-8.2 [facility] Comment on above: Performed By: #### CMP ####[facility] Pzjysxuduj2144 [place] [address]Dr. Yuki Diaz Sodium [Moles/Vol] 141 mmol/L Normal 136-145 [facility] Comment on above: Performed By: #### CMP ####[facility] Uwnwicixui2040 [place] [address]Dr. Yuki Diaz Urea nitrogen [Mass/Vol] 39.0 mg/dL Critically high 7.0-18.0 [facility] Comment on above: Performed By: #### CMP ####[facility] Ekkagbxzta2424 [place] [address]Dr. Yuki Diaz Urea nitrogen/Creatin ine [Mass ratio] 18.3 mg/mg Normal [facility] Comment on above: Performed By: #### CMP ####[facility] Uywifcquuw7366 [place] [address]DrBebo Diaz PROF 14(COMP METB)on 022 Albumin [Mass/Vol] 3.3 g/dL Critically low 3.4-5.0 [facility] Comment on above: Performed By: #### CMP ####[facility] Haejgfrshn9787 [place] [address]Dr. Yuki Diaz Albumin/Globulin [Mass ratio] 0.9 {ratio} Normal [facility] Comment on above: Performed By: #### CMP ####[facility] Rvwopnptro1791 [place] [address]Dr. Yuki Diaz ALP [Catalytic activity/Vol] 78 U/L Normal 46-116 [facility] Comment on above: Performed By: #### CMP ####[facility] Niqjdogjlq9990 [place] [address]Dr. Yuki Diaz ALT [Catalytic activity/Vol] 19 U/L Normal 16-63 [facility] Comment on above: Performed By: #### CMP ####[facility] Qfbwtyqsby8415 [place] [address]Dr. Yuki Diaz Anion gap [Moles/Vol] 12.3 mmol/L Normal [facility] Comment on above: Performed By: #### CMP ####[facility] Nxmymhuqry1777 [place] [address]Dr. Yuki Diaz AST [Catalytic activity/Vol] 13 U/L Critically low 15-37 [facility] Comment on above: Performed By: #### CMP ####[facility] Zmqtwzypyp5015 [place] [address]Dr. Yuki Diaz Bilirubin [Mass/Vol] 0.8 mg/dL Normal 0.2-1.0 [facility] Comment on above: Performed By: #### CMP ####[facility] Atqvuecwwp0787 [place] [address]Dr. Yuki Diaz Calcium [Mass/Vol] 8.8 mg/dL Normal 8.5-10.1 [facility] Comment on above: Performed By: #### CMP ####[facility] Onhjdhxabv6333 [place] [address]Dr. Yuki Diaz Chloride [Moles/Vol] 105 mmol/L Normal 98-107 [facility] Comment on above: Performed By: #### CMP ####[facility] Heazswdwdq6320 [place] [address]Dr. Yuki Diaz Creatinine [Mass/Vol] 2.44 mg/dL Critically high 0.70-1.30 [facility] Comment on above: Performed By: #### CMP ####[facility] Aattlqrkln2265 [place] [id number]. Yuki Diaz EGFR-AF DJIBOUTIAN 31 mL/min/1.73m2 Critically low >=60 [facility] Comment on above: Performed By: #### CMP ####[facility] Cagukwnotz4399 [place] [address]Dr. Yuki Diaz EGFR-NON AF DJIBOUTIAN 26 mL/min/1.73m2 Critically low >=60 [facility] Comment on above: Performed By: #### CMP ####[facility] Shfudnlwtm0931 [place] [address]Dr. Yuki Diaz Globulin (S) [Mass/Vol] 3.7 g/dL Normal [facility] Comment on above: Performed By: #### CMP ####[facility] Liledourbq3609 [place] [address]Dr. Yuki Joe Glucose [Mass/Vol] 196 mg/dL Critically high 74-106 [facility] Comment on above: Performed By: #### CMP ####[facility] Kwhngylsdp1036 [place] [address]Dr. Yuki Joe Potassium [Moles/Vol] 4.6 mmol/L Normal 3.5-5.1 [facility] Comment on above: Performed By: #### CMP ####[facility] Ugumwfarpw8642 [place] [address]Dr. Yuki Diaz Protein [Mass/Vol] 7.0 g/dL Normal 6.4-8.2 [facility] Comment on above: Performed By: #### CMP ####[facility] Vkwyataare5796 [place] [address]Dr. Yuki Diaz Sodium [Moles/Vol] 144 mmol/L Normal 136-145 [facility] Comment on above: Performed By: #### CMP ####[facility] Ljholwcoiy2754 [place] [address]Dr. Yuki Diaz Urea nitrogen [Mass/Vol] 44.0 mg/dL Critically high 7.0-18.0 [facility] Comment on above: Performed By: #### CMP ####[facility] Nngyzfbigr4169 [place] [address]Dr. Yuki Diaz Urea nitrogen/Creatin ine [Mass ratio] 18.0 mg/mg Normal [facility] Comment on above: Performed By: #### CMP ####[facility] Mgxiwzzbdz6217 [place] [address]Dr. Yuki Diaz PROF 14(COMP METB)on 022 Albumin [Mass/Vol] 3.2 g/dL Critically low 3.4-5.0 [facility] Comment on above: Performed By: #### CMP ####[facility] Tifeqfjxzz3000 [place] [address]Dr. Yuki Diaz Albumin/Globulin [Mass ratio] 0.9 {ratio} Normal [facility] Comment on above: Performed By: #### CMP ####[facility] Gqatcnmikq3724 [place] [address]Dr. Yuki Diaz ALP [Catalytic activity/Vol] 75 U/L Normal 46-116 [facility] Comment on above: Performed By: #### CMP ####[facility] Fcgahurwie6317 [place] [address]Dr. Yuki Diaz ALT [Catalytic activity/Vol] 14 U/L Critically low 16-63 [facility] Comment on above: Performed By: #### CMP ####[facility] Rxgyoysgle1971 [place] [address]Dr. Yuki Diaz Anion gap [Moles/Vol] 12.6 mmol/L Normal [facility] Comment on above: Performed By: #### CMP ####[facility] Sxvfgewfpp4479 [place] [address]Dr. Yuki Diaz AST [Catalytic activity/Vol] 9 U/L Critically low 15-37 [facility] Comment on above: Performed By: #### CMP ####[facility] Boqidvujfr4460 [place] [address]Dr. Yuki Diaz Bilirubin [Mass/Vol] 0.7 mg/dL Normal 0.2-1.0 [facility] Comment on above: Performed By: #### CMP ####[facility] Toltmrysdk1500 [place] [address]Dr. Yuki Diaz Calcium [Mass/Vol] 8.6 mg/dL Normal 8.5-10.1 [facility] Comment on above: Performed By: #### CMP ####[facility] Zpofzdrvjq5257 [place] [address]Dr. Yuki Diaz Chloride [Moles/Vol] 107 mmol/L Normal 98-107 [facility] Comment on above: Performed By: #### CMP ####[facility] Semkhpxjgv0525 [place] [address]Dr. Yuki Diaz CO2 [Moles/Vol] 28.3 mmol/L Normal 21.0-32.0 [facility] Comment on above: Performed By: #### CMP ####[facility] Tckmqostyg1166 [place] [address]Dr. Yuki Joe Creatinine [Mass/Vol] 2.52 mg/dL Critically high 0.70-1.30 [facility] Comment on above: Performed By: #### CMP ####[facility] Ysybuhrmwo4499 [place] [address]Dr. Yuki Diaz EGFR-AF DJIBOUTIAN 30 mL/min/1.73m2 Critically low >=60 [facility] Comment on above: Performed By: #### CMP ####[facility] Cnpkqqwuxt9394 [place] [address]Dr. Yuki Joe EGFR-NON AF DJIBOUTIAN 25 mL/min/1.73m2 Critically low >=60 [facility] Comment on above: Performed By: #### CMP ####[facility] Vneihbbufl8160 [place] [address]Dr. Yuki Joe Globulin (S) [Mass/Vol] 3.7 g/dL Normal [facility] Comment on above: Performed By: #### CMP ####[facility] Xbffqsywna2229 [place] [address]Dr. Yuki Diaz Glucose [Mass/Vol] 152 mg/dL Critically high 74-106 [facility] Comment on above: Performed By: #### CMP ####[facility] Bxwvwjczrr0263 [place] [address]Dr. Yuki Diaz Potassium [Moles/Vol] 3.9 mmol/L Normal 3.5-5.1 [facility] Comment on above: Performed By: #### CMP ####[facility] Cqutscdtds0519 [place] [id number]. Yuki Diaz Protein [Mass/Vol] 6.9 g/dL Normal 6.4-8.2 [facility] Comment on above: Performed By: #### CMP ####[facility] Qjxwlcehnl4889 [place] [address]Dr. Yuki Diaz Sodium [Moles/Vol] 144 mmol/L Normal 136-145 [facility] Comment on above: Performed By: #### CMP ####[facility] Fofoqbvacv7443 [place] [address]Dr. Yuki Diaz Urea nitrogen [Mass/Vol] 50.0 mg/dL Critically high 7.0-18.0 [facility] Comment on above: Performed By: #### CMP ####[facility] Qemupauvmv6145 [place] [address]Dr. Yuki Diaz Urea nitrogen/Creatin ine [Mass ratio] 19.8 mg/mg Normal [facility] Comment on above: Performed By: #### CMP ####[facility] Mlkkskbhfs5385 [place] [address]Dr. Yuki Diaz PROF 14(COMP METB)on 022 Albumin [Mass/Vol] 3.1 g/dL Critically low 3.4-5.0 [facility] Comment on above: Performed By: #### CMP ####[facility] Gvwvyypdqk1215 [place] [address]Dr. Yuki Diaz Albumin/Globulin [Mass ratio] 0.7 {ratio} Normal [facility] Comment on above: Performed By: #### CMP ####[facility] Agzbcvrbiy8157 [place] [address]Dr. Yuki Diaz ALP [Catalytic activity/Vol] 101 U/L Normal 46-116 [facility] Comment on above: Performed By: #### CMP ####[facility] Xhbneogsxr3747 [place] [address]Dr. Yuki Diaz ALT [Catalytic activity/Vol] 18 U/L Normal 16-63 [facility] Comment on above: Performed By: #### CMP ####[facility] Gdsuumnmhi7403 [place] [id number]. Yuki Diaz Anion gap [Moles/Vol] 11.9 mmol/L Normal [facility] Comment on above: Performed By: #### CMP ####[facility] Bfsbktcvtd5626 [place] [address]Dr. Yuki Diaz AST [Catalytic activity/Vol] 11 U/L Critically low 15-37 [facility] Comment on above: Performed By: #### CMP ####[facility] Wvtqyzdfva1719 [place] [address]Dr. Yuki Diaz Bilirubin [Mass/Vol] 0.5 mg/dL Normal 0.2-1.0 [facility] Comment on above: Performed By: #### CMP ####[facility] Mxcmdwqvys2916 [place] [address]Dr. Yuki Diaz Calcium [Mass/Vol] 9.0 mg/dL Normal 8.5-10.1 [facility] Comment on above: Performed By: #### CMP ####[facility] Ahdfspbafp1577 [place] [address]Dr. Yuki Diaz Chloride [Moles/Vol] 103 mmol/L Normal 98-107 [facility] Comment on above: Performed By: #### CMP ####[facility] Mqepelyfcf8895 [place] [id number]. Yuki Diaz CO2 [Moles/Vol] 29.8 mmol/L Normal 21.0-32.0 [facility] Comment on above: Performed By: #### CMP ####[facility] Pebdfzmsiv4877 [place] [address]Dr. Yuki Joe Creatinine [Mass/Vol] 3.03 mg/dL Critically high 0.70-1.30 [facility] Comment on above: Performed By: #### CMP ####[facility] Riwpapulgf9468 [place] [address]Dr. Yuki Diaz EGFR-AF DJIBOUTIAN 24 mL/min/1.73m2 Critically low >=60 [facility] Comment on above: Performed By: #### CMP ####[facility] Oqtrffizgx3337 [place] [address]Dr. Yuki Diaz EGFR-NON AF DJIBOUTIAN 20 mL/min/1.73m2 Critically low >=60 [facility] Comment on above: Performed By: #### CMP ####[facility] Xpqutlabsc7067 [place] [address]Dr. Yuki Diaz Globulin (S) [Mass/Vol] 4.4 g/dL Normal [facility] Comment on above: Performed By: #### CMP ####[facility] Owmtfueysd1656 [place] [address]Dr. Yuki Joe Glucose [Mass/Vol] 260 mg/dL Critically high 74-106 [facility] Comment on above: Performed By: #### CMP ####[facility] Exxnhtgeuc0347 [place] [address]Dr. Yuki Joe Potassium [Moles/Vol] 4.7 mmol/L Normal 3.5-5.1 [facility] Comment on above: Performed By: #### CMP ####[facility] Fnjgobtjva1278 [place] [address]Dr. Yuki Diaz Protein [Mass/Vol] 7.5 g/dL Normal 6.4-8.2 [facility] Comment on above: Performed By: #### CMP ####[facility] Wpuworxwaj8884 [place] [address]Dr. Yuki Diaz Sodium [Moles/Vol] 140 mmol/L Normal 136-145 [facility] Comment on above: Performed By: #### CMP ####[facility] Teuixjnccz2613 [place] [address]Dr. Yuki Diaz Urea nitrogen [Mass/Vol] 50.0 mg/dL Critically high 7.0-18.0 [facility] Comment on above: Performed By: #### CMP ####[facility] Ypcdqmamqp1381 [place], [place] [address]MyBebo Diaz Urea nitrogen/Creatin ine [Mass ratio] 16.5 mg/mg Normal [facility] Comment on above: Performed By: #### CMP ####[facility] Fbggghlicv7699 [place], [place] [address]FnBebo Diaz Screenson 02-18-2022 Screens [id number]:127 Normal [facility] Ambulatory Visit Summaryon 0 02-15-2022 Ambulatory Visit Summary SHENG BAUER :1940 Visit Date:02/15/2022 Ambulatory Visit Instructions Your Diagnosis Elevated PSA BPH associated with nocturia Nocturia Tests Performed Urnls Dip Stick Auto w/o Microscopy POC 73554 Your Care Team Attending Physician - César [...] Gordon Jr., MD Where: [facility] Patient Educationon 02-16-20 Patient Education Oncology Prostate-Specific [...] including vitamins, herbs, eye drops, creams, and omzz-hlr-cnqtbii medicines. This also includes: ? Medicines to [...] 08/26/2005 Document Revised: 07/06/2018 Document Reviewed: 04/30/2018 [employer] Patient Education ? 2019 [employer] [facility] Urology Office/Clinic Noteon 02-15-2022 Urology Office/Clinic [...] Urnls Dip Stick Auto w/o Microscopy POC 03356 2. BPH associated with nocturia (N40.1: Benign [...] months [facility] [address] [place] [address]- Additional Instructions: w/ psa Patient Education Prostate-Specific [...] so unsure (more content not included)... Normal [facility] Comment on above: Result Comment: Electronically Signed By : Evan Ochoa MD, César Vega\.br\Date and Time Signed: 02/15/22 10:42 EDT\.br\Electronically Co-Signed By: Gretel Bhagat\.br\Date and Time Co-Signed: 02/15/22 10:35 EDT PROF 14(COMP METB)on 022 Albumin [Mass/Vol] 3.3 g/dL Critically low 3.4-5.0 [facility] Comment on above: Performed By: #### CMP ####[facility] Pwnzdmnhtk8715 [place] [address]Dr. Yuki Diaz Albumin/Globulin [Mass ratio] 0.8 {ratio} Normal [facility] Comment on above: Performed By: #### CMP ####[facility] Xcwnjtlhzo0589 [place] [address]Dr. Yuki Diaz ALP [Catalytic activity/Vol] 111 U/L Normal 46-116 [facility] Comment on above: Performed By: #### CMP ####[facility] Fivgwmpsgl6860 [place] [address]Dr. Yuki Diaz ALT [Catalytic activity/Vol] 22 U/L Normal 16-63 [facility] Comment on above: Performed By: #### CMP ####[facility] Saolodsdcg5460 [place] [address]Dr. Yuki Diaz Anion gap [Moles/Vol] 9.0 mmol/L Normal [facility] Comment on above: Performed By: #### CMP ####[facility] Tdiatelwjf5181 [place] [address]Dr. Yuki Diaz AST [Catalytic activity/Vol] 10 U/L Critically low 15-37 [facility] Comment on above: Performed By: #### CMP ####[facility] Pldppksqdt3066 [place] [address]Dr. Yuki Diaz Bilirubin [Mass/Vol] 1.0 mg/dL Normal 0.2-1.0 [facility] Comment on above: Performed By: #### CMP ####[facility] Ybasjwikdn[address] [place], [place] [address]Dr. Yuki Diaz Calcium [Mass/Vol] 9.1 mg/dL Normal 8.5-10.1 [facility] Comment on above: Performed By: #### CMP ####[facility] Fexqgqacko8298 [place] [address]Dr. Yuki Diaz Chloride [Moles/Vol] 103 mmol/L Normal 98-107 [facility] Comment on above: Performed By: #### CMP ####[facility] Xrpuyuwvvo0073 [place] [address]Dr. Yuki Diaz CO2 [Moles/Vol] 32.8 mmol/L Critically high 21.0-32.0 [facility] Comment on above: Performed By: #### CMP ####[facility] Yiauifomzt[address] [place], [place] [address]Dr. Yuki Diaz Creatinine [Mass/Vol] 2.55 mg/dL Critically high 0.70-1.30 [facility] Comment on above: Performed By: #### CMP ####[facility] Jwtmxsymhi8019 [place] [address]Dr. Yuki Diaz EGFR-AF DJIBOUTIAN 30 mL/min/1.73m2 Critically low >=60 [facility] Comment on above: Performed By: #### CMP ####[facility] Guefgzeovp9575 [place] [address]Dr. Yuki Diaz EGFR-NON AF DJIBOUTIAN 24 mL/min/1.73m2 Critically low >=60 [facility] Comment on above: Performed By: #### CMP ####[facility] Hziocgxamw1084 [place] [address]Dr. Yuki Diaz Globulin (S) [Mass/Vol] 4.0 g/dL Normal [facility] Comment on above: Performed By: #### CMP ####[facility] Uoirjnkaux4361 [place] [address]Dr. Yuki Diaz Glucose [Mass/Vol] 154 mg/dL Critically high 74-106 [facility] Comment on above: Performed By: #### CMP ####[facility] Tomiuizpbs3717 [place] [address]Dr. Yuki Diaz Potassium [Moles/Vol] 3.8 mmol/L Normal 3.5-5.1 [facility] Comment on above: Performed By: #### CMP ####[facility] Hknijaoysn5771 [place] [address]Dr. Yuki Diaz Protein [Mass/Vol] 7.3 g/dL Normal 6.4-8.2 [facility] Comment on above: Performed By: #### CMP ####[facility] Afvlvprgka0140 [place] [address]Dr. Yuki Diaz Sodium [Moles/Vol] 141 mmol/L Normal 136-145 [facility] Comment on above: Performed By: #### CMP ####[facility] Bamhwaeaht9622 [place] [address]Dr. Yuki Diaz Urea nitrogen [Mass/Vol] 35.0 mg/dL Critically high 7.0-18.0 [facility] Comment on above: Performed By: #### CMP ####[facility] Lvxprmrjdu2476 [place] [address]Dr. Yuki Diaz Urea nitrogen/Creatin ine [Mass ratio] 13.7 mg/mg Normal [facility] Comment on above: Performed By: #### CMP ####[facility] Ixngphljku1759 [place] [address]Dr. Yuki Diaz PROF 14(COMP METB)on 022 Albumin [Mass/Vol] 2.9 g/dL Critically low 3.4-5.0 [facility] Comment on above: Performed By: #### CMP ####[facility] Qlnmytwews1891 [place] [address]Dr. Yuki Diaz Albumin/Globulin [Mass ratio] 0.8 {ratio} Normal [facility] Comment on above: Performed By: #### CMP ####[facility] Nfoxgkpvmw4357 [place] [address]Dr. Yuki Diaz ALP [Catalytic activity/Vol] 96 U/L Normal 46-116 [facility] Comment on above: Performed By: #### CMP ####[facility] Jpqwrveelw4335 [place] [address]Dr. Yuki Diaz ALT [Catalytic activity/Vol] 23 U/L Normal 16-63 [facility] Comment on above: Performed By: #### CMP ####[facility] Ccwtrhmbxn8998 [place] [address]Dr. Yuki Diaz Anion gap [Moles/Vol] 11.6 mmol/L Normal [facility] Comment on above: Performed By: #### CMP ####[facility] Cjyryqnjme8657 [place] [address]Dr. Yuki Diaz AST [Catalytic activity/Vol] 12 U/L Critically low 15-37 [facility] Comment on above: Performed By: #### CMP ####[facility] Oqgvpissfg6165 [place] [address]Dr. Yuki Diaz Bilirubin [Mass/Vol] 0.7 mg/dL Normal 0.2-1.0 [facility] Comment on above: Performed By: #### CMP ####[facility] Zlhpavaqvi4295 [place] [address]Dr. Yuki Diaz Calcium [Mass/Vol] 8.7 mg/dL Normal 8.5-10.1 [facility] Comment on above: Performed By: #### CMP ####[facility] Swrzzdgacd1979 [place] [address]Dr. Yuki Diaz Chloride [Moles/Vol] 103 mmol/L Normal 98-107 [facility] Comment on above: Performed By: #### CMP ####[facility] Zbivblyair4607 [place] [address]Dr. Yuki Diaz CO2 [Moles/Vol] 32.5 mmol/L Critically high 21.0-32.0 [facility] Comment on above: Performed By: #### CMP ####[facility] Cdxqdlhnjh4285 [place] [address]Dr. Yuki Joe Creatinine [Mass/Vol] 2.35 mg/dL Critically high 0.70-1.30 [facility] Comment on above: Performed By: #### CMP ####[facility] Hfqwyonrss84[address] [place], [place] [address]Dr. Yuki Diaz EGFR-AF DJIBOUTIAN 33 mL/min/1.73m2 Critically low >=60 [facility] Comment on above: Performed By: #### CMP ####[facility] Vkpzpvtqhf[address] [place], [place] [address]Dr. Yuki Joe EGFR-NON AF DJIBOUTIAN 27 mL/min/1.73m2 Critically low >=60 [facility] Comment on above: Performed By: #### CMP ####[facility] Hjuksnqqky0200 [place] [address]Dr. Yuki Diaz Globulin (S) [Mass/Vol] 3.6 g/dL Normal [facility] Comment on above: Performed By: #### CMP ####[facility] Etzkziadaw5504 [place] [address]Dr. Yuki Diaz Glucose [Mass/Vol] 206 mg/dL Critically high 74-106 [facility] Comment on above: Performed By: #### CMP ####[facility] Xihlppdslg0208 [place] [address]Dr. Yuki Diaz Potassium [Moles/Vol] 4.1 mmol/L Normal 3.5-5.1 [facility] Comment on above: Performed By: #### CMP ####[facility] Jwhkdzvzrz99[address] [place], [place] [address]Dr. Yuki Diaz Protein [Mass/Vol] 6.5 g/dL Normal 6.4-8.2 [facility] Comment on above: Performed By: #### CMP ####[facility] Mrzrohkkpu59[address] [place], [place] [address]Dr. Yuki Diaz Sodium [Moles/Vol] 143 mmol/L Normal 136-145 [facility] Comment on above: Performed By: #### CMP ####[facility] Wsmmklrymr95[address] [place], [place] [address]Dr. Yuik Diaz Urea nitrogen [Mass/Vol] 34.0 mg/dL Critically high 7.0-18.0 [facility] Comment on above: Performed By: #### CMP ####[facility] Kgnnzybfdx[address] [place], [place] [address]Dr. Yuki Diaz Urea nitrogen/Creatin ine [Mass ratio] 14.5 mg/mg Normal [facility] Comment on above: Performed By: #### CMP ####[facility] Icibflpefl[address] [place], [place] [address]Dr. Yuki Diaz BNPon 02-03-2022 Natriuretic peptide B (Bld) [Mass/Vol] 3216.0 pg/mL Critically high <=1,800.0 [facility] Comment on above: Result Comment: repeated Performed By: #### B PERCUSSION INSTRUMENT TUNER ####[facility] Ourulyorcq16[address] [place], [place] [address]Dr. Yuki Diaz PROF 14(COMP METB)on 022 Albumin [Mass/Vol] 3.0 g/dL Critically low 3.4-5.0 [facility] Comment on above: Performed By: #### CMP ####[facility] Ugbbxtgkow4634 [place] [address]Dr. Yuki Diaz Albumin/Globulin [Mass ratio] 0.8 {ratio} Normal [facility] Comment on above: Performed By: #### CMP ####[facility] Oeofvxvaob0729 [place] [address]Dr. Yuki Diaz ALP [Catalytic activity/Vol] 104 U/L Normal 46-116 [facility] Comment on above: Performed By: #### CMP ####[facility] Cimezccnlk1577 [place] [address]Dr. Yuki Diaz ALT [Catalytic activity/Vol] 32 U/L Normal 16-63 [facility] Comment on above: Performed By: #### CMP ####[facility] Xwahfnybog6877 [place] [address]Dr. Yuki Diaz Anion gap [Moles/Vol] 9.3 mmol/L Normal [facility] Comment on above: Performed By: #### CMP ####[facility] ital Tyipngxfva40[address] [place], [place] [address]Dr. Yuki Diaz AST [Catalytic activity/Vol] 15 U/L Normal 15-37 [facility] Comment on above: Performed By: #### CMP ####[facility] Tglxtswmfl5183 [place] [address]Dr. Monsealyssa Diaz Bilirubin [Mass/Vol] 0.9 mg/dL Normal 0.2-1.0 [facility] Comment on above: Performed By: #### CMP ####[facility] ital Phdkejmdyg7009 [place] [address]Dr. Monsealyssa Diaz Calcium [Mass/Vol] 8.6 mg/dL Normal 8.5-10.1 [facility] Comment on above: Performed By: #### CMP ####[facility] ital Xobiirrlhp4893 [place] [address]Dr. Yuki Diaz Chloride [Moles/Vol] 104 mmol/L Normal 98-107 [facility] Comment on above: Performed By: #### CMP ####[facility] ital Ncwsmczqrx[address] [place], [place] [address]Dr. Yuki Joe CO2 [Moles/Vol] 35.9 mmol/L Critically high 21.0-32.0 [facility] Comment on above: Performed By: #### CMP ####[facility] ital Srjfhkipnn1543 [place] [address]Dr. Yuki Diaz Creatinine [Mass/Vol] 1.98 mg/dL Critically high 0.70-1.30 [facility] Comment on above: Performed By: #### CMP ####[facility] Cmxkctrwqv8258 [place] [address]Dr. Yuki Joe EGFR-AF DJIBOUTIAN 40 mL/min/1.73m2 Critically low >=60 [facility] Comment on above: Performed By: #### CMP ####[facility] ital Fjtcbkqadf1438 [place] [address]Dr. Monsealyssa Joe EGFR-NON AF DJIBOUTIAN 33 mL/min/1.73m2 Critically low >=60 [facility] Comment on above: Performed By: #### CMP ####[facility] Rtspcknmfz9292 [place] [address]Dr. Yuki Diaz Globulin (S) [Mass/Vol] 3.9 g/dL Normal [facility] Comment on above: Performed By: #### CMP ####[facility] Lsuossomkf1021 [place] [address]Dr. Yuki Joe Glucose [Mass/Vol] 124 mg/dL Critically high 74-106 [facility] Comment on above: Performed By: #### CMP ####[facility] Egzbaogakf9601 [place] [address]Dr. Yuki Joe Potassium [Moles/Vol] 4.2 mmol/L Normal 3.5-5.1 [facility] Comment on above: Performed By: #### CMP ####[facility] Cljpllzudr0152 [place] [address]Dr. Yuki Diaz Protein [Mass/Vol] 6.9 g/dL Normal 6.4-8.2 [facility] Comment on above: Performed By: #### CMP ####[facility] Nlrthzamop3399 [place] [address]Dr. Yuki Diaz Sodium [Moles/Vol] 145 mmol/L Normal 136-145 [facility] Comment on above: Performed By: #### CMP ####[facility] ital Htuzluhpmg4659 [place] [address]Dr. Yuki Diaz Urea nitrogen [Mass/Vol] 27.0 mg/dL Critically high 7.0-18.0 [facility] Comment on above: Performed By: #### CMP ####[facility] Hqetqmrnpp9714 [place] [address]Dr. Yuki Diaz Urea nitrogen/Creatin ine [Mass ratio] 13.6 mg/mg Normal [facility] Comment on above: Performed By: #### CMP ####[facility] Poaetbtbvo5131 [place] [address]Dr. Yuki Diaz BNPon 01-27-2022 Natriuretic peptide B (Bld) [Mass/Vol] 2090.0 pg/mL Critically high <=1,800.0 [facility] Comment on above: Performed By: #### CMP, BNP ####[facility] Jxkjeneidp7946 [place] [address]Dr. Yuki Diaz CBC AUTO DIFFon 01-27-2022 BASO # 0.0 103/ul Normal 0.0-0.1 [facility] Comment on above: Performed By: #### CBC ####[facility] Giqvrecxxc0295 [place] [address]Dr. Yuki Diaz Basophils/100 WBC (Bld) 0.2 % Normal 0.2-2.0 [facility] Comment on above: Performed By: #### CBC ####[facility] ital Sdbihrwifp3379 [place] [address]Dr. Yuki Diaz EO # 0.2 103/ul Normal 0.0-0.7 [facility] Comment on above: Performed By: #### CBC ####[facility] Woroxlfftf0735 [place] [address]Dr. Yuki Diaz Eosinophils/100 WBC (Bld) 1.8 % Normal 0.9-7.0 [facility] Comment on above: Performed By: #### CBC ####[facility] ital Cswaatqajc8589 [place] [address]Dr. Yuki Diaz Erythrocyte distribution width (RBC) [Ratio] 13.4 % Normal 11.0-15.0 [facility] Comment on above: Performed By: #### CBC ####[facility] ital Gcrhwdqwau7126 [place] [address]Dr. Yuki Diaz Hematocrit (Bld) [Volume fraction] 32.6 % Critically low 42.0-54.0 [facility] Comment on above: Performed By: #### CBC ####[facility] Niyuwumwne[address] [place] [address]. Yuki Diaz Hemoglobin (Bld) [Mass/Vol] 10.4 g/dL Critically low 14.0-18.0 [facility] Comment on above: Performed By: #### CBC ####[facility] Ytpbbyjjld[address] [place] [address]. Yuki Diaz IG # 0.03 10e3/ul Normal 0.00-0.03 [facility] Comment on above: Performed By: #### CBC ####[facility] Eqatveaddc[address] [place] [address]. Yuki Diaz IG % 0.3 % Normal 0.0-0.5 [facility] Comment on above: Performed By: #### CBC ####[facility] Bbvumciaym[address] [place], [place] [address]Dr. Yuki Diaz LYMPH # 1.2 103/ul Normal 1.2-3.8 [facility] Comment on above: Performed By: #### CBC ####[facility] Fexaoaodhz5721 [place] [address]Dr. Yuki Diaz Lymphocytes/100 WBC (Bld) 13.8 % Critically low 20.5-60.0 [facility] Comment on above: Performed By: #### CBC ####[facility] Ykkxsozcbe[address] [place], [place] [address]Dr. Yuki Diaz MANUAL DIFF REQ NO Normal [facility] Comment on above: Performed By: #### CBC ####[facility] Rmuqlgrniz2068 [place] [address]Dr. Yuki Diaz MCH (RBC) [Entitic mass] 31.9 pg Normal 25.9-34.0 [facility] Comment on above: Performed By: #### CBC ####[facility] Cbvgyimssm3635 [place] [address]Dr. Yuki Diaz MCHC (RBC) [Mass/Vol] 31.9 g/dL Normal 29.9-35.2 [facility] Comment on above: Performed By: #### CBC ####[facility] Xdclaalpgy3787 [place] [address]Dr. Monsealyssa Diaz MCV (RBC) [Entitic vol] 100.0 fL Critically high 80.0-94.0 [facility] Comment on above: Performed By: #### CBC ####[facility] Zgovvrstjh[address] [place], [place] [address]Dr. Yuki Diaz MONO # 0.9 103/ul Critically high 0.3-0.8 [facility] Comment on above: Performed By: #### CBC ####[facility] Ckjuxcfssi1954 [place] [address]Dr. Monsealyssa Diaz Monocytes/100 WBC (Bld) 10.1 % Normal 1.7-12.0 [facility] Comment on above: Performed By: #### CBC ####[facility] Uipzctgviy9356 [place] [address]Dr. Yuki Diaz NEUT # 6.6 103/ul Critically high 1.4-6.5 [facility] Comment on above: Performed By: #### CBC ####[facility] Lsrerwmhjk2712 [place] [address]Dr. Monsealyssa Diaz Neutrophils/100 WBC (Bld) 73.8 % Normal 43.0-75.0 [facility] Comment on above: Performed By: #### CBC ####[facility] Khqkzcfhyx[address] [place], [place] [address]Dr. Yuki Diaz Platelet mean volume (Bld) [Entitic vol] 10.3 fL Normal 9.5-13.5 [facility] Comment on above: Performed By: #### CBC ####[facility] Efhnadttnw6075 [place] [address]Dr. Yuki Diaz PLT 196 103/ul Normal 150-450 [facility] Comment on above: Performed By: #### CBC ####[facility] Xonrzwcywj4913 [place] [id number]. Monsealyssa Diaz RBC 3.26 106/ul Critically low 4.70-6.10 [facility] Comment on above: Performed By: #### CBC ####[facility] Qxpskxlwew9560 [place] [id number]. Monsealyssa Joe WBC 9.0 103/ul Normal 4.0-11.0 [facility] Comment on above: Performed By: #### CBC ####[facility] Gdnzvesyoc8120 [place] [address]Dr. Yuki Diaz POINT OF CARE GLUCOSEon 01-06 Glucose [Mass/Vol] 155 mg/dL Critically high 74-106 [facility] Comment on above: Performed By: #### POCGLUC ####[facility] Ftkgbjkmro2175 [place] [address]Dr. Yuki Diaz Glucose [Mass/Vol] 120 mg/dL Critically high 74-106 [facility] Comment on above: Performed By: #### POCGLUC ####[facility] Yljivpccfp4985 [place] [address]Dr. Yuki Diaz PROF 14(COMP METB)on 022 Albumin [Mass/Vol] 2.8 g/dL Critically low 3.4-5.0 [facility] Comment on above: Performed By: #### CMP, BNP ####[facility] Ziuifweyni8443 [place] [address]Dr. Yuki Diaz Albumin/Globulin [Mass ratio] 0.8 {ratio} Normal [facility] Comment on above: Performed By: #### CMP, BNP ####[facility] Pchmfymuyy1268 [place] [id number]. Yuki Diaz ALP [Catalytic activity/Vol] 96 U/L Normal 46-116 [facility] Comment on above: Performed By: #### CMP, BNP ####[facility] Nzntlcqpag0628 [place] [id number]. Yuki Diaz ALT [Catalytic activity/Vol] 27 U/L Normal 16-63 [facility] Comment on above: Performed By: #### CMP, BNP ####[facility] Gcivqdwawk6965 [place] [id number]. Yuki Diaz Anion gap [Moles/Vol] 8.7 mmol/L Normal [facility] Comment on above: Performed By: #### CMP, BNP ####[facility] Yygdocdgru1559 [place] [id number]. Yuki Diaz AST [Catalytic activity/Vol] 17 U/L Normal 15-37 [facility] Comment on above: Performed By: #### CMP, BNP ####[facility] Dnzceojjsi[address] [place] [address]Dr. Yuki Diaz Bilirubin [Mass/Vol] 0.8 mg/dL Normal 0.2-1.0 [facility] Comment on above: Performed By: #### CMP, BNP ####[facility] Glrjcxdomv[address] [place] [address]Dr. Yuki Diaz Calcium [Mass/Vol] 8.2 mg/dL Critically low 8.5-10.1 [facility] Comment on above: Performed By: #### CMP, BNP ####[facility] Ltbzgcvglc2458 [place] [address]Dr. Yuki Diaz Chloride [Moles/Vol] 104 mmol/L Normal 98-107 [facility] Comment on above: Performed By: #### CMP, BNP ####[facility] Krsbyhczfi[address] [place] [id number]. Yuki Diaz CO2 [Moles/Vol] 37.3 mmol/L Critically high 21.0-32.0 [facility] Comment on above: Performed By: #### CMP, BNP ####[facility] Pfbxigglnr4593 [place] [id number]. Yuki Diaz Creatinine [Mass/Vol] 1.90 mg/dL Critically high 0.70-1.30 [facility] Comment on above: Performed By: #### CMP, BNP ####[facility] Qtsihzpqgh5127 [place] [address]Dr. Yuki Diaz EGFR-AF DJIBOUTIAN 42 mL/min/1.73m2 Critically low >=60 [facility] Comment on above: Performed By: #### CMP, BNP ####[facility] Sezebbwowe[address] [place], [place] [address]Dr. Yuki Diaz EGFR-NON AF DJIBOUTIAN 34 mL/min/1.73m2 Critically low >=60 [facility] Comment on above: Performed By: #### CMP, BNP ####[facility] Tjwiefrbrc[address] [place], [place] [address]Dr. Yuki Diaz Globulin (S) [Mass/Vol] 3.5 g/dL Normal [facility] Comment on above: Performed By: #### CMP, BNP ####[facility] Qjsctxhknk[address] [place], [place] [address]Dr. Yuki Diaz Glucose [Mass/Vol] 44 mg/dL Critically low 74-106 [facility] Comment on above: Result Comment: Test Repeated. Critical Value Verified Performed By: #### C MP, BNP ####[facility] Dcixxtmcwi268[address] [place], [place] [address]Dr. Yuki Diaz Potassium [Moles/Vol] 3.0 mmol/L Critically low 3.5-5.1 [facility] Comment on above: Performed By: #### CMP, BNP ####[facility] Ctuwgmfqjw[address] [place], [place] [address]Dr. Yuki Diaz Protein [Mass/Vol] 6.3 g/dL Critically low 6.4-8.2 [facility] Comment on above: Performed By: #### CMP, BNP ####[facility] Sybxprvezz[address] [place], [place] [address]Dr. Yuki Diaz Sodium [Moles/Vol] 147 mmol/L Critically high 136-145 [facility] Comment on above: Performed By: #### CMP, BNP ####[facility] Zslzbmteic[address] [place], [place] [address]Dr. Yuki Diaz Urea nitrogen [Mass/Vol] 33.0 mg/dL Critically high 7.0-18.0 [facility] Comment on above: Performed By: #### CMP, BNP ####[facility] Wzjvlqyubw[address] [place], [place] [address]Dr. Yuki Diaz Urea nitrogen/Creatin ine [Mass ratio] 17.4 mg/mg Normal [facility] Comment on above: Performed By: #### CMP, BNP ####[facility] Wrlvrjnzms[address] [place], [place] [address]Dr. Yuki Diaz BNPon 01-26-2022 Natriuretic peptide B (Bld) [Mass/Vol] 3997.0 pg/mL Critically high <=1,800.0 [facility] Comment on above: Performed By: #### BNP, CMP ####[facility] Jciqifbnzq[address] [place], [place] [address]Dr. Yuki Diaz CBC AUTO DIFFon 01-26-2022 BASO # 0.0 103/ul Normal 0.0-0.1 [facility] Comment on above: Performed By: #### CBC ####[facility] Xsuwpvkvqg6[address] [place], [place] [address]Dr. Yuki Diaz Basophils/100 WBC (Bld) 0.2 % Normal 0.2-2.0 [facility] Comment on above: Performed By: #### CBC ####[facility] ital Idgjgjjiqk[address] [place], [place] [address]Dr. Yuki Diaz EO # 0.2 103/ul Normal 0.0-0.7 [facility] Comment on above: Performed By: #### CBC ####[facility] ital Ailrsoepwf5[address] [place], [place] [address]Dr. Yuki Diaz Eosinophils/100 WBC (Bld) 1.6 % Normal 0.9-7.0 [facility] Comment on above: Performed By: #### CBC ####[facility] Cqwgtokvnh65[address] [place], [place] [address]Dr. Yuki Diaz Erythrocyte distribution width (RBC) [Ratio] 13.5 % Normal 11.0-15.0 [facility] Comment on above: Performed By: #### CBC ####[facility] Xwtixdgbga1318 [place] [address]Dr. Yuki Diaz Hematocrit (Bld) [Volume fraction] 34.9 % Critically low 42.0-54.0 [facility] Comment on above: Performed By: #### CBC ####[facility] Qyofvpvpno0857 [place] [address]Dr. Yuki Diaz Hemoglobin (Bld) [Mass/Vol] 11.3 g/dL Critically low 14.0-18.0 [facility] Comment on above: Performed By: #### CBC ####[facility] Ljkcqqtkef4517 [place] [address]Dr. Yuki Diaz IG # 0.03 10e3/ul Normal 0.00-0.03 [facility] Comment on above: Performed By: #### CBC ####[facility] Jldykpqfpf0463 [address] Monsealyssa Diaz IG % 0.3 % Normal 0.0-0.5 [facility] Comment on above: Performed By: #### CBC ####[facility] Lybyrypyyx[address]70 [address] Yuki Diaz LYMPH # 1.5 103/ul Normal 1.2-3.8 [facility] Comment on above: Performed By: #### CBC ####[facility] Jnfrklgtbd6070 [place] [address]Dr. Monsealyssa Diaz Lymphocytes/100 WBC (Bld) 15.1 % Critically low 20.5-60.0 [facility] Comment on above: Performed By: #### CBC ####[facility] Bcwdoqafxo6561 [place] [address]Dr. Monsealyssa Diaz MANUAL DIFF REQ NO Normal [facility] Comment on above: Performed By: #### CBC ####[facility] Qflykffkmk6770 [place] [address]Dr. Yuki Diaz MCH (RBC) [Entitic mass] 32.2 pg Normal 25.9-34.0 [facility] Comment on above: Performed By: #### CBC ####[facility] ital Qnoldsvwuz9233 [place] [address]Dr. Yuki Joe MCHC (RBC) [Mass/Vol] 32.4 g/dL Normal 29.9-35.2 [facility] Comment on above: Performed By: #### CBC ####[facility] ital Xpapmzfrcs6515 [place] [address]Dr. Yuki Diaz MCV (RBC) [Entitic vol] 99.4 fL Critically high 80.0-94.0 [facility] Comment on above: Performed By: #### CBC ####[facility] ital Kuqewreynl2049 [place] [address]Dr. Yuki Diaz MONO # 1.1 103/ul Critically high 0.3-0.8 [facility] Comment on above: Performed By: #### CBC ####[facility] Fncvphkrel9826 [place] [address]Dr. Yuki Diaz Monocytes/100 WBC (Bld) 10.7 % Normal 1.7-12.0 [facility] Comment on above: Performed By: #### CBC ####[facility] Drylntimiv[address] [place], [place] [address]Dr. Yuki Diaz NEUT # 7.3 103/ul Critically high 1.4-6.5 [facility] Comment on above: Performed By: #### CBC ####[facility] Kfhjepngdi[address] [place], [place] [address]Dr. Yuki Diaz Neutrophils/100 WBC (Bld) 72.1 % Normal 43.0-75.0 [facility] Comment on above: Performed By: #### CBC ####[facility] ital Mgorqtzfrd936[address] [place], [place] [address]Dr. Yuki Diaz Platelet mean volume (Bld) [Entitic vol] 10.2 fL Normal 9.5-13.5 [facility] Comment on above: Performed By: #### CBC ####[facility] ital Wmqhagmaea[address] [place], [place] [address]Dr. Yuki Diaz PLT 208 103/ul Normal 150-450 [facility] Comment on above: Performed By: #### CBC ####[facility] ital Khsjwnxfsh7886 [place] [id number]. Monsealyssa Joe RBC 3.51 106/ul Critically low 4.70-6.10 [facility] Comment on above: Performed By: #### CBC ####[facility] Afofbbxzmv0339 [place] [id number]. Yuki Diaz WBC 10.1 103/ul Normal 4.0-11.0 [facility] Comment on above: Performed By: #### CBC ####[facility] ital Byentkkwmk6755 [place] [id number]. Yuki Diaz POINT OF CARE GLUCOSEon 01-06 Glucose [Mass/Vol] 205 mg/dL Critically high 74-106 [facility] Comment on above: Performed By: #### POCGLUC ####[facility] Sjvnbdpywx2643 [place] [address]Dr. Yuki Diaz Glucose [Mass/Vol] 210 mg/dL Critically high 74-106 [facility] Comment on above: Performed By: #### POCGLUC ####[facility] Guueimdukg0054 [place] [address]Dr. Yuki Diaz Glucose [Mass/Vol] 160 mg/dL Critically high 74-106 [facility] Comment on above: Performed By: #### POCGLUC ####[facility] Demscvzbgx0123 [place] [address]Dr. Yuki Diaz PROF 14(COMP METB)on 022 Albumin [Mass/Vol] 3.0 g/dL Critically low 3.4-5.0 [facility] Comment on above: Performed By: #### BNP, CMP ####[facility] Poosdcsidh28[address] [place] [address]Dr. Yuki Diaz Albumin/Globulin [Mass ratio] 0.8 {ratio} Normal [facility] Comment on above: Performed By: #### BNP, CMP ####[facility] Wwjejsrwwg2404 [place] [address]Dr. Yuki Diaz ALP [Catalytic activity/Vol] 106 U/L Normal 46-116 [facility] Comment on above: Performed By: #### BNP, CMP ####[facility] Lkdmtxzhru4630 [place] [address]Dr. Yuki Diaz ALT [Catalytic activity/Vol] 33 U/L Normal 16-63 [facility] Comment on above: Performed By: #### BNP, CMP ####[facility] Akughnuyug1612 [place] [address]Dr. Yuki Diaz Anion gap [Moles/Vol] 6.1 mmol/L Normal [facility] Comment on above: Performed By: #### BNP, CMP ####[facility] Ohnmfmdcon1267 [place] [address]Dr. Yuki Joe AST [Catalytic activity/Vol] 20 U/L Normal 15-37 [facility] Comment on above: Performed By: #### BNP, CMP ####[facility] Twjrooedei[address] [place], [place] [address]Dr. Yuki Diaz Bilirubin [Mass/Vol] 0.8 mg/dL Normal 0.2-1.0 [facility] Comment on above: Performed By: #### BNP, CMP ####[facility] Thtsbdugof[address] [place], [place] [address]Dr. Yuki Joe Calcium [Mass/Vol] 8.4 mg/dL Critically low 8.5-10.1 [facility] Comment on above: Performed By: #### BNP, CMP ####[facility] Wliqrhbipx[address] [place], [place] [address]Dr. Yuki Diaz Chloride [Moles/Vol] 105 mmol/L Normal 98-107 [facility] Comment on above: Performed By: #### BNP, CMP ####[facility] Tnuqwvtoea[address] [place], [place] [address]Dr. Yuki Diaz CO2 [Moles/Vol] 40.2 mmol/L Critically high 21.0-32.0 [facility] Comment on above: Performed By: #### BNP, CMP ####[facility] Sijosngcre[address] [place], [place] [address]Dr. Yuki Diaz Creatinine [Mass/Vol] 1.88 mg/dL Critically high 0.70-1.30 [facility] Comment on above: Performed By: #### BNP, CMP ####[facility] Zpjgvmtrpz0805 [place] [address]Dr. Yuki Diaz EGFR-AF DJIBOUTIAN 42 mL/min/1.73m2 Critically low >=60 [facility] Comment on above: Performed By: #### BNP, CMP ####[facility] Taahdojhob6226 [place] [address]Dr. Yuki Diaz EGFR-NON AF DJIBOUTIAN 35 mL/min/1.73m2 Critically low >=60 [facility] Comment on above: Performed By: #### BNP, CMP ####[facility] Vwqswhrsot7151 [place] [address]Dr. Yuki Joe Globulin (S) [Mass/Vol] 3.6 g/dL Normal [facility] Comment on above: Performed By: #### BNP, CMP ####[facility] Oujzbpbvih[address] [place], [place] [address]Dr. Monsealyssa Joe Glucose [Mass/Vol] 62 mg/dL Critically low 74-106 [facility] Comment on above: Performed By: #### BNP, CMP ####[facility] Hcowyyjbzp[address] [place], [place] [address]Dr. Yuki Joe Potassium [Moles/Vol] 3.3 mmol/L Critically low 3.5-5.1 [facility] Comment on above: Performed By: #### BNP, CMP ####[facility] Mrddwelbzy726[address] [place], [place] [address]Dr. Yuki Joe Protein [Mass/Vol] 6.6 g/dL Normal 6.4-8.2 [facility] Comment on above: Performed By: #### BNP, CMP ####[facility] Tnzsqtvccq[address] [place], [place] [address]Dr. Monsealyssa Joe Sodium [Moles/Vol] 148 mmol/L Critically high 136-145 [facility] Comment on above: Performed By: #### BNP, CMP ####[facility] Oqbouhybwh[address] [place], [place] [address]Dr. Monsealyssa Joe Urea nitrogen [Mass/Vol] 29.0 mg/dL Critically high 7.0-18.0 [facility] Comment on above: Performed By: #### BNP, CMP ####[facility] Rvkkmorkxj[address] [place], [place] [address]Dr. Yuki Diaz Urea nitrogen/Creatin ine [Mass ratio] 15.4 mg/mg Normal [facility] Comment on above: Performed By: #### BNP, CMP ####[facility] Cwhrkekuws924[address] [place], [place] [address]Dr. Yuki Diaz PROF CHEM 8 (BAS METB)on Anion gap [Moles/Vol] 11.1 mmol/L Normal [facility] Comment on above: Performed By: #### BMP ####[facility] Meabhqnwpz95[address] [place], [place] [address]Dr. Yuki Diaz Calcium [Mass/Vol] 8.1 mg/dL Critically low 8.5-10.1 [facility] Comment on above: Performed By: #### BMP ####[facility] Dvgayspxmg313[address] [place], [place] [address]Dr. Yuki Diaz Chloride [Moles/Vol] 102 mmol/L Normal 98-107 [facility] Comment on above: Performed By: #### BMP ####[facility] ital Efdrrlsiyl467[address] [place], [place] [address]Dr. Yuki Diaz CO2 [Moles/Vol] 35.4 mmol/L Critically high 21.0-32.0 [facility] Comment on above: Performed By: #### BMP ####[facility] Byrisezqew869[address] [place], [place] [address]Dr. Yuki Diaz Creatinine [Mass/Vol] 1.88 mg/dL Critically high 0.70-1.30 [facility] Comment on above: Performed By: #### BMP ####[facility] ital Talkflceef[address] [place], [place] [address]Dr. Yuki Diaz EGFR-AF DJIBOUTIAN 42 mL/min/1.73m2 Critically low >=60 [facility] Comment on above: Performed By: #### BMP ####[facility] Goluthkodi595[address] [place], [place] [address]Dr. Yuki Diaz EGFR-NON AF DJIBOUTIAN 35 mL/min/1.73m2 Critically low >=60 [facility] Comment on above: Performed By: #### BMP ####[facility] ital Rkxfginies0608 [place] [address]Dr. Yuki Diaz Glucose [Mass/Vol] 208 mg/dL Critically high 74-106 [facility] Comment on above: Performed By: #### BMP ####[facility] ital Cklglrwzqj8722 [place] [address]Dr. Yuki Diaz Potassium [Moles/Vol] 3.5 mmol/L Normal 3.5-5.1 [facility] Comment on above: Performed By: #### BMP ####[facility] ital Frxqnpcrnh1481 [place] [address]Dr. Yuki Diaz Sodium [Moles/Vol] 145 mmol/L Normal 136-145 [facility] Comment on above: Performed By: #### BMP ####[facility] Fqfpnasbry6658 [place] [address]Dr. Yuki Diaz Urea nitrogen [Mass/Vol] 33.0 mg/dL Critically high 7.0-18.0 [facility] Comment on above: Performed By: #### BMP ####[facility] Ejuqgapzof6603 [place] [address]Dr. Yuki Diaz Urea nitrogen/Creatin ine [Mass ratio] 17.6 mg/mg Normal [facility] Comment on above: Performed By: #### BMP ####[facility] ital Tcurdafuyn5457 [place] [address]Dr. Yuki Diaz PROTIMEon 01-26-2022 INR Coag (PPP) [Relative time] 1.15 {INR} Normal [facility] Comment on above: Performed By: #### PT ####[facility] kacie Kvugmixvcc5421 [place] [address]Dr. Yuki Diaz INR GUIDELINES SEE BELOW Normal [facility] Comment on above: Result Comment: DESIRED INR: 2.0 - 3.0 C ONDITIONS NOT LISTED BELOW 2.5 - 3.5 FOR PROSTHETIC HEART VALVE REPLACEMENT 2.5 - 3.5 RECURRENT THROMBOSIS Performed By: #### P T ####[facility] Cjrysvibzg[address] [place], [place] [address]Dr. Yuki Diaz PT Coag (PPP) [Time] 12.3 s Critically high 9.0-11.6 [facility] Comment on above: Performed By: #### PT ####[facility] kacie Zeyitwmpfs[address] [place], [place] [address]Dr. Yuki Diaz BNPon 01-25-2022 Natriuretic peptide B (Bld) [Mass/Vol] 3414.0 pg/mL Critically high <=1,800.0 [facility] Comment on above: Performed By: #### BNP, BMP ####[facility] Usyizdssoy[address] [place], [place] [address]Dr. Yuki Diaz CBC AUTO DIFFon 01-25-2022 BASO # 0.0 103/ul Normal 0.0-0.1 [facility] Comment on above: Performed By: #### CBC ####[facility] Xkoavcwpmq[address] [place], [place] [address]Dr. Yuki Diaz Basophils/100 WBC (Bld) 0.3 % Normal 0.2-2.0 [facility] Comment on above: Performed By: #### CBC ####[facility] Urjmsqeeix44[address] [place], [place] [address]Dr. Yuki Diaz EO # 0.2 103/ul Normal 0.0-0.7 [facility] Comment on above: Performed By: #### CBC ####[facility] Ramb[address]jz[address] [place] [address]. Yuki Diaz Eosinophils/100 WBC (Bld) 1.9 % Normal 0.9-7.0 [facility] Comment on above: Performed By: #### CBC ####[facility] Qsomlxtzju874[address] [place], [place] [address]Dr. Yuki Diaz Erythrocyte distribution width (RBC) [Ratio] 13.2 % Normal 11.0-15.0 [facility] Comment on above: Performed By: #### CBC ####[facility] Dvadmdcnoj[address] [place], [place] [address]Dr. Monsealyssa Diaz Hematocrit (Bld) [Volume fraction] 33.8 % Critically low 42.0-54.0 [facility] Comment on above: Performed By: #### CBC ####[facility] Iwjbrrplro0510 [place] [address]Dr. Monsealyssa Diaz Hemoglobin (Bld) [Mass/Vol] 10.8 g/dL Critically low 14.0-18.0 [facility] Comment on above: Performed By: #### CBC ####[facility] Rmvlgruznr6294 [place] [address]Dr. Yuki Diaz IG # 0.04 10e3/ul Critically high 0.00-0.03 [facility] Comment on above: Performed By: #### CBC ####[facility] Njtoawmret8810 [place] [address]Dr. Yuki Diaz IG % 0.4 % Normal 0.0-0.5 [facility] Comment on above: Performed By: #### CBC ####[facility] Zlnnetrapa[address] Yuki Diaz LYMPH # 1.5 103/ul Normal 1.2-3.8 [facility] Comment on above: Performed By: #### CBC ####[facility] Gesbtxtbll3815 [place] [address]Dr. Yuki Diaz Lymphocytes/100 WBC (Bld) 14.8 % Critically low 20.5-60.0 [facility] Comment on above: Performed By: #### CBC ####[facility] Typaotwjfl4049 [place] [address]Dr. Yuki Diaz MANUAL DIFF REQ NO Normal [facility] Comment on above: Performed By: #### CBC ####[facility] Nmcrkjuuuj6941 [place] [address]DrBebo Diaz MCH (RBC) [Entitic mass] 31.9 pg Normal 25.9-34.0 [facility] Comment on above: Performed By: #### CBC ####[facility] Aihkoshygu4662 [place] [address]Dr. Yuki Joe MCHC (RBC) [Mass/Vol] 32.0 g/dL Normal 29.9-35.2 [facility] Comment on above: Performed By: #### CBC ####[facility] Qqsvvhgigr8750 [place] [address]Dr. Yuki Diaz MCV (RBC) [Entitic vol] 99.7 fL Critically high 80.0-94.0 [facility] Comment on above: Performed By: #### CBC ####[facility] ital Tnedddfccl4525 [place] [address]Dr. Yuki Joe MONO # 1.0 103/ul Critically high 0.3-0.8 [facility] Comment on above: Performed By: #### CBC ####[facility] Npqumypiuc7316 [place] [address]Dr. Yuki Diaz Monocytes/100 WBC (Bld) 9.8 % Normal 1.7-12.0 [facility] Comment on above: Performed By: #### CBC ####[facility] Vhpeijbygp6903 [place] [address]Dr. Yuki Joe NEUT # 7.1 103/ul Critically high 1.4-6.5 [facility] Comment on above: Performed By: #### CBC ####[facility] Yuxqqiiyyu8312 [place] [address]Dr. Yuki Joe Neutrophils/100 WBC (Bld) 72.8 % Normal 43.0-75.0 [facility] Comment on above: Performed By: #### CBC ####[facility] Qjmfvsjmsx9317 [place] [address]Dr. Yuki Joe Platelet mean volume (Bld) [Entitic vol] 10.4 fL Normal 9.5-13.5 [facility] Comment on above: Performed By: #### CBC ####[facility] Qxgqqwrieo3948 [place] [address]Dr. Monsealyssa Diaz PLT 204 103/ul Normal 150-450 [facility] Comment on above: Performed By: #### CBC ####[facility] Xahasdrxnw2182 [place] [address]Dr. Yuki Diaz RBC 3.39 106/ul Critically low 4.70-6.10 [facility] Comment on above: Performed By: #### CBC ####[facility] Humjgubgqg4223 [place] [address]Dr. Yuki Diaz WBC 9.8 103/ul Normal 4.0-11.0 [facility] Comment on above: Performed By: #### CBC ####[facility] Jwozziwjdo2207 [place] [address]Dr. Yuki Diaz POINT OF CARE GLUCOSEon -09 07-2021 Glucose [Mass/Vol] 194 mg/dL Critically high 74-106 [facility] Comment on above: Performed By: #### POCGLUC ####[facility] Hfvxwjszxz7115 [place] [address]Dr. Yuki Diaz Glucose [Mass/Vol] 196 mg/dL Critically high 74-106 [facility] Comment on above: Performed By: #### POCGLUC ####[facility] Hpdbbzeynl[address] [place], [place] [address]Dr. Yuki Diaz Glucose [Mass/Vol] 253 mg/dL Critically high 74-106 [facility] Comment on above: Performed By: #### POCGLUC ####[facility] Feiypsrdxe3437 [place] [address]Dr. Yuki Diaz Glucose [Mass/Vol] 106 mg/dL Normal 74-106 [facility] Comment on above: Performed By: #### POCGLUC ####[facility] Ryrgjkdjno[address] [place], [place] [address]Dr. Yuki Diaz POTASSIUMon 01-25-2022 Potassium [Moles/Vol] 3.4 mmol/L Critically low 3.5-5.1 [facility] Comment on above: Performed By: #### K ####[facility] al Wvkcqczoic3950 [place] [address]Dr. Yuki Diaz PROF CHEM 8 (BAS METB)on Anion gap [Moles/Vol] 9.0 mmol/L Normal [facility] Comment on above: Performed By: #### BMP ####[facility] ital Uokjhdlewj9646 [place] [address]Dr. Yuki Diaz Calcium [Mass/Vol] 8.3 mg/dL Critically low 8.5-10.1 [facility] Comment on above: Performed By: #### BMP ####[facility] ital Wsvawyzirh3233 [place] [address]Dr. Yuki Diaz Chloride [Moles/Vol] 103 mmol/L Normal 98-107 [facility] Comment on above: Performed By: #### BMP ####[facility] ital Rtpkfvfokc5636 [place] [address]Dr. Yuki Diaz CO2 [Moles/Vol] 35.9 mmol/L Critically high 21.0-32.0 [facility] Comment on above: Performed By: #### BMP ####[facility] Hkyenbxwcu9703 [place] [address]Dr. Yuki Diaz Creatinine [Mass/Vol] 1.94 mg/dL Critically high 0.70-1.30 [facility] Comment on above: Performed By: #### BMP ####[facility] Xnuwpymsxn7060 [place] [address]Dr. Yuki Diaz EGFR-AF DJIBOUTIAN 41 mL/min/1.73m2 Critically low >=60 [facility] Comment on above: Performed By: #### BMP ####[facility] Gkzcwtkkyx9290 [place] [address]Dr. Yuki Diaz EGFR-NON AF DJIBOUTIAN 34 mL/min/1.73m2 Critically low >=60 [facility] Comment on above: Performed By: #### BMP ####[facility] ital Ngmbwbnjpv9360 [place] [address]Dr. Yuki Diaz Glucose [Mass/Vol] 181 mg/dL Critically high 74-106 [facility] Comment on above: Performed By: #### BMP ####[facility] Hnxrycepvo8565 [place] [address]Dr. Yuki Diaz Potassium [Moles/Vol] 2.9 mmol/L Critically low 3.5-5.1 [facility] Comment on above: Result Comment: TEST REPEATED CRITICAL V ALUE VERIFIED Performed By: #### B MP ####[facility] Swesnuebxw[address] [place] [address]Dr. Yuki Diaz Sodium [Moles/Vol] 145 mmol/L Normal 136-145 [facility] Comment on above: Performed By: #### BMP ####[facility] ital Dfxvoajzfg4763 [place] [address]Dr. Yuki Diaz Urea nitrogen [Mass/Vol] 30.0 mg/dL Critically high 7.0-18.0 [facility] Comment on above: Performed By: #### BMP ####[facility] ital Pczpqgsdgl[address] [place], [place] [address]Dr. Yuki Joe Urea nitrogen/Creatin ine [Mass ratio] 15.5 mg/mg Normal [facility] Comment on above: Performed By: #### BMP ####[facility] ital Wedvhsmaxj99[address] [place], [place] [address]Dr. Yuki Joe Anion gap [Moles/Vol] 9.0 mmol/L Normal [facility] Comment on above: Performed By: #### BNP, BMP ####[facility] Qjbvwppasp[address] [place], [place] [address]Dr. Yuki Joe Calcium [Mass/Vol] 8.3 mg/dL Critically low 8.5-10.1 [facility] Comment on above: Performed By: #### BNP, BMP ####[facility] Snbuyptwwk[address] [place], [place] [address]Dr. Yuki Joe Chloride [Moles/Vol] 104 mmol/L Normal 98-107 [facility] Comment on above: Performed By: #### BNP, BMP ####[facility] Tozkwdmsba0535 [place] [address]Dr. Yuki Diaz CO2 [Moles/Vol] 37.0 mmol/L Critically high 21.0-32.0 [facility] Comment on above: Performed By: #### BNP, BMP ####[facility] Jeqjdavxcd[address] [place], [place] [address]Dr. Yuki Diaz Creatinine [Mass/Vol] 2.03 mg/dL Critically high 0.70-1.30 [facility] Comment on above: Performed By: #### BNP, BMP ####[facility] Bgnmmmkcwq6805 [place] [address]Dr. Yuki Diaz EGFR-AF DJIBOUTIAN 39 mL/min/1.73m2 Critically low >=60 [facility] Comment on above: Performed By: #### BNP, BMP ####[facility] Gtckouyqfq4882 [place] [id number]. Yuki Diaz EGFR-NON AF DJIBOUTIAN 32 mL/min/1.73m2 Critically low >=60 [facility] Comment on above: Performed By: #### BNP, BMP ####[facility] Ddkcdekglf1124 [place] [address]Dr. Monsealyssa Joe Glucose [Mass/Vol] 102 mg/dL Normal 74-106 [facility] Comment on above: Performed By: #### BNP, BMP ####[facility] Zzblhiwwef8270 [place] [address]Dr. Yuki Diaz Potassium [Moles/Vol] 3.0 mmol/L Critically low 3.5-5.1 [facility] Comment on above: Performed By: #### BNP, BMP ####[facility] Nscjcipgpu12[address] [place], [place] [address]Dr. Monsealyssa Joe Sodium [Moles/Vol] 147 mmol/L Critically high 136-145 [facility] Comment on above: Performed By: #### BNP, BMP ####[facility] Onpuxlwneh8502 [place] [address]Dr. Monsealyssa Joe Urea nitrogen [Mass/Vol] 31.0 mg/dL Critically high 7.0-18.0 [facility] Comment on above: Performed By: #### BNP, BMP ####[facility] Etdlznyqjf8749 [place] [address]Dr. Monsealyssa Joe Urea nitrogen/Creatin ine [Mass ratio] 15.3 mg/mg Normal [facility] Comment on above: Performed By: #### BNP, BMP ####[facility] Acjhedaxzy2724 [place] [address]Dr. Monsealyssa Joe TROPONIN, HIGH SENSITIVITYon 01-25-2022 HSTROP 38.8 pg/mL Normal 4.0-76.1 [facility] Comment on above: Result Comment: CUT-OFF POINTS HAVE BEEN ESTABLISHED BASED ON THE FOURTH UNIVERSAL DEFINITIONS OF MYOCARDIALINFARCTION. THE UPPER REFERENCE LIMIT (URL) OF TROPONIN, DEFINED THE 99TH PERCENTILE OFcTnI DISTRIBUTION IN A REFERENCE POPULATION, HAS BEEN CONFIRMED THE DECISION THRESHOLDFOR DE DIAGNOSIS. Performed By: #### H STROPN ####[facility] Ptpgsmswqn4400 [place] [address]Dr. Yuki Diaz BNPon 01-24-2022 Natriuretic peptide B (Bld) [Mass/Vol] 3429.0 pg/mL Critically high <=1,800.0 [facility] Comment on above: Performed By: #### HSTROPN, CMADM, BNP # ###[facility] Mbbkskcoap[address] [place], [place] [address]Dr. Yuki Diaz CARDIAC RACHEL ADMITon 022 CK [Catalytic activity/Vol] 108 U/L Normal 39-308 [facility] Comment on above: Performed By: #### HSTROPN, CMADM, BNP # ###[facility] Dsfppjxrqq[address] [place], [place] [address]Dr. Yuki Diaz CK.MB [Mass/Vol] 2.44 ng/mL Normal <=3.60 [facility] Comment on above: Performed By: #### HSTROPN, CMADM, BNP # ###[facility] Iwzxqaylhi[address] [place], [place] [address]Dr. Yuki Diaz DILSHAD 177 ng/mL Critically high 16-96 [facility] Comment on above: Performed By: #### HSTROPN, CMADM, BNP # ###[facility] Ardemhjkjw9451 [place] [address]Dr. Yuki Diaz CBC AUTO DIFFon 01-24-2022 BASO # 0.0 103/ul Normal 0.0-0.1 [facility] Comment on above: Performed By: #### CBC ####[facility] Eujabueqle[address] [place], [place] [address]Dr. Yuki Diaz Basophils/100 WBC (Bld) 0.3 % Normal 0.2-2.0 [facility] Comment on above: Performed By: #### CBC ####[facility] ital Ccckccncnx0837 [address]Bebo Yuki Diaz EO # 0.2 103/ul Normal 0.0-0.7 [facility] Comment on above: Performed By: #### CBC ####[facility] ital Wbpgwatbrb9029 [address] Yuki Diaz Eosinophils/100 WBC (Bld) 1.7 % Normal 0.9-7.0 [facility] Comment on above: Performed By: #### CBC ####[facility] ital Gkrnwkcndz5086 [address] Yuki Diaz Erythrocyte distribution width (RBC) [Ratio] 13.5 % Normal 11.0-15.0 [facility] Comment on above: Performed By: #### CBC ####[facility] Czduyceeei3942 [address] Monsealyssa Diaz Hematocrit (Bld) [Volume fraction] 33.3 % Critically low 42.0-54.0 [facility] Comment on above: Performed By: #### CBC ####[facility] Fmdnhljdaf[address] [place], [place] [address]Bebo Yuki Diaz Hemoglobin (Bld) [Mass/Vol] 10.8 g/dL Critically low 14.0-18.0 [facility] Comment on above: Performed By: #### CBC ####[facility] Ocuevzgcjq9546 [address] Yuki Diaz IG # 0.04 10e3/ul Critically high 0.00-0.03 [facility] Comment on above: Performed By: #### CBC ####[facility] Nvebdfbsxg6841 [address] Monsealyssa Diaz IG % 0.4 % Normal 0.0-0.5 [facility] Comment on above: Performed By: #### CBC ####[facility] Cbhlcgpvxr[address] [place], [place] [address]Bebo Diaz LYMPH # 1.3 103/ul Normal 1.2-3.8 [facility] Comment on above: Performed By: #### CBC ####[facility] ital Fxomggyhqi1111 [place] [address]DrBebo Diaz Lymphocytes/100 WBC (Bld) 13.8 % Critically low 20.5-60.0 [facility] Comment on above: Performed By: #### CBC ####[facility] ital Funpxptmkr1250 [place] [address]DrBebo Diaz MANUAL DIFF REQ NO Normal [facility] Comment on above: Performed By: #### CBC ####[facility] ital Mcnuksulnc0303 [place] [address]DrBebo Diaz MCH (RBC) [Entitic mass] 32.8 pg Normal 25.9-34.0 [facility] Comment on above: Performed By: #### CBC ####[facility] Ttishblgpt6942 [place] [address]DrBebo Diaz MCHC (RBC) [Mass/Vol] 32.4 g/dL Normal 29.9-35.2 [facility] Comment on above: Performed By: #### CBC ####[facility] Tnbczoonrb3640 [place] [address]DrBebo Diaz MCV (RBC) [Entitic vol] 101.2 fL Critically high 80.0-94.0 [facility] Comment on above: Performed By: #### CBC ####[facility] ital Khnhopwwed5858 [place] [address]Dr. Yuki Diaz MONO # 0.8 103/ul Normal 0.3-0.8 [facility] Comment on above: Performed By: #### CBC ####[facility] ital Pugllxcyuo6660 [place] [address]DrBebo Diaz Monocytes/100 WBC (Bld) 8.3 % Normal 1.7-12.0 [facility] Comment on above: Performed By: #### CBC ####[facility] ital Gpwlghkkeh9031 [place] [address]DrBebo Diaz NEUT # 7.2 103/ul Critically high 1.4-6.5 [facility] Comment on above: Performed By: #### CBC ####[facility] ital Aehjmeyjae9713 [place] [address]Dr. Yuki Diaz Neutrophils/100 WBC (Bld) 75.5 % Critically high 43.0-75.0 [facility] Comment on above: Performed By: #### CBC ####[facility] ital Yvpktjcltm9399 [place] [id number]. Yuki Diaz Platelet mean volume (Bld) [Entitic vol] 10.6 fL Normal 9.5-13.5 [facility] Comment on above: Performed By: #### CBC ####[facility] ital Wjayfvgwiz1846 [place] [address]Dr. Yuki Diaz PLT 215 103/ul Normal 150-450 [facility] Comment on above: Performed By: #### CBC ####[facility] Xyipmyfnuk6679 [place] [address]Dr. Yuki Diaz RBC 3.29 106/ul Critically low 4.70-6.10 [facility] Comment on above: Performed By: #### CBC ####[facility] Eplnwkryly8673 [place] [address]Dr. Yuki Diaz WBC 9.5 103/ul Normal 4.0-11.0 [facility] Comment on above: Performed By: #### CBC ####[facility] Omznxyyisu9331 [place] [address]Dr. Yuki Diaz Covid-19 PCR [facility]on 01-06 SARS-CoV-2 (COVID-19) RNA JARVIS+probe Ql (Unsp spec) Not detected Normal NOT DETECTED [facility] Comment on above: Result Comment: When [...] for this test is supported by the [place] [employer]'s declaration that [...] longer be used). Performed By: #### C [facility] ####[facility] Jzxngfkbyz9683 [place] [address]Dr. Yuki Diaz PROF 14(COMP METB)on 022 Albumin [Mass/Vol] 2.8 g/dL Critically low 3.4-5.0 [facility] Comment on above: Performed By: #### CMP ####[facility] Mwgtkegxsb[address] [place], [place] [address]Dr. Yuki Diaz Albumin/Globulin [Mass ratio] 0.8 {ratio} Normal [facility] Comment on above: Performed By: #### CMP ####[facility] ital Zoikxabnwo9963[address] [place], [place] [address]Dr. Yuki Diaz ALP [Catalytic activity/Vol] 96 U/L Normal 46-116 [facility] Comment on above: Performed By: #### CMP ####[facility] Dxnhxnjnyz32[address] [place], [place] [address]Dr. Yuki Diaz ALT [Catalytic activity/Vol] 32 U/L Normal 16-63 [facility] Comment on above: Performed By: #### CMP ####[facility] ital Sajfhcmibe33[address] [place], [place] [address]Dr. Yuki Diaz Anion gap [Moles/Vol] 12.6 mmol/L Normal [facility] Comment on above: Performed By: #### CMP ####[facility] Wigbpaagdf00[address] [place], [place] [address]Dr. Yuki Diaz AST [Catalytic activity/Vol] 19 U/L Normal 15-37 [facility] Comment on above: Performed By: #### CMP ####[facility] Qbfmefdoxg7656 [place] [address]Dr. Yuki Diaz Bilirubin [Mass/Vol] 0.7 mg/dL Normal 0.2-1.0 [facility] Comment on above: Performed By: #### CMP ####[facility] Ftezmfbibd5138 [place] [address]Dr. Yuki Diaz Calcium [Mass/Vol] 8.2 mg/dL Critically low 8.5-10.1 [facility] Comment on above: Performed By: #### CMP ####[facility] Muaomizweq7783 [place] [address]Dr. Yuki Diaz Chloride [Moles/Vol] 103 mmol/L Normal 98-107 [facility] Comment on above: Performed By: #### CMP ####[facility] Ogpiofbmrc5021 [place] [address]Dr. Yuki Diaz CO2 [Moles/Vol] 31.2 mmol/L Normal 21.0-32.0 [facility] Comment on above: Performed By: #### CMP ####[facility] Yyhvnvrvnq4559 [place] [address]Dr. Yuki Diaz Creatinine [Mass/Vol] 2.24 mg/dL Critically high 0.70-1.30 [facility] Comment on above: Performed By: #### CMP ####[facility] Nwdzgcqocb2267 [place] [address]Dr. Yuki Diaz EGFR-AF DJIBOUTIAN 34 mL/min/1.73m2 Critically low >=60 [facility] Comment on above: Performed By: #### CMP ####[facility] Jhhprnatzn6193 [place] [id number]. Yuki Diaz EGFR-NON AF DJIBOUTIAN 28 mL/min/1.73m2 Critically low >=60 [facility] Comment on above: Performed By: #### CMP ####[facility] Arqilywplv2111 [place] [address]Dr. Yuki Diaz Globulin (S) [Mass/Vol] 3.4 g/dL Normal [facility] Comment on above: Performed By: #### CMP ####[facility] Oidqjywity6091 [place] [id number]. Yuki Diaz Glucose [Mass/Vol] 123 mg/dL Critically high 74-106 [facility] Comment on above: Performed By: #### CMP ####[facility] Aflmynscnu8936 [place] [address]Dr. Yuki Diaz Potassium [Moles/Vol] 2.7 mmol/L Critically low 3.5-5.1 [facility] Comment on above: Performed By: #### CMP ####[facility] Dkhhditibn0594 [place] [address]Dr. Yuki Diaz Protein [Mass/Vol] 6.2 g/dL Critically low 6.4-8.2 [facility] Comment on above: Performed By: #### CMP ####[facility] Fbqroyfumi7802 [place] [address]Dr. Yuki Diaz Sodium [Moles/Vol] 142 mmol/L Normal 136-145 [facility] Comment on above: Performed By: #### CMP ####[facility] Uiomfwefdb8951 [place] [address]Dr. Yuki Diaz Urea nitrogen [Mass/Vol] 29.0 mg/dL Critically high 7.0-18.0 [facility] Comment on above: Performed By: #### CMP ####[facility] Tedmzcbxni3520 [place] [address]Dr. Yuki Diaz Urea nitrogen/Creatin ine [Mass ratio] 12.9 mg/mg Normal [facility] Comment on above: Performed By: #### CMP ####[facility] Xlsavycsfv3825 [place] [address]Dr. Yuki Diaz TROPONIN, HIGH SENSITIVITYon 01-24-2022 HSTROP 33.1 pg/mL Normal 4.0-76.1 [facility] Comment on above: Result Comment: CUT-OFF POINTS HAVE BEEN ESTABLISHED BASED ON THE FOURTH UNIVERSAL DEFINITIONS OF MYOCARDIALINFARCTION. THE UPPER REFERENCE LIMIT (URL) OF TROPONIN, DEFINED THE 99TH PERCENTILE OFcTnI DISTRIBUTION IN A REFERENCE POPULATION, HAS BEEN CONFIRMED THE DECISION THRESHOLDFOR DE DIAGNOSIS. Performed By: #### H STROPN, CMADM, BNP ####[facility] Dcqmvapaka0546 [place] [address]Dr. Yuki Diaz XR CHEST 1 Von 01-24-2022 XR CHEST 1 V Normal [facility] BNPon 01-12-2022 Natriuretic peptide B (Bld) [Mass/Vol] 2759.0 pg/mL Critically high <=1,800.0 [facility] Comment on above: Performed By: #### CMP, BNP ####[facility] Ntqgmyjmeh[address] [place], [place] [address]Dr. Yuki Diaz PROF 14(COMP METB)on 022 Albumin [Mass/Vol] 2.9 g/dL Critically low 3.4-5.0 [facility] Comment on above: Performed By: #### CMP, BNP ####[facility] Eghxiyylxk[address] [place], [place] [address]Dr. Yuki Diaz Albumin/Globulin [Mass ratio] 0.8 {ratio} Normal [facility] Comment on above: Performed By: #### CMP, BNP ####[facility] Uokovxcvvk348[address] [place], [place] [address]Dr. Yuki Diaz ALP [Catalytic activity/Vol] 100 U/L Normal 46-116 [facility] Comment on above: Performed By: #### CMP, BNP ####[facility] Damfqvvcse95[address] [place], [place] [address]Dr. Yuki Diaz ALT [Catalytic activity/Vol] 43 U/L Normal 16-63 [facility] Comment on above: Performed By: #### CMP, BNP ####[facility] Acnreevrvb10[address] [place], [place] [address]Dr. Yuki Diaz Anion gap [Moles/Vol] 7.6 mmol/L Normal [facility] Comment on above: Performed By: #### CMP, BNP ####[facility] Libebrbsxt27[address] [place], [place] [address]Dr. Yuki Diaz AST [Catalytic activity/Vol] 22 U/L Normal 15-37 [facility] Comment on above: Performed By: #### CMP, BNP ####[facility] Zypbiveyrs[address] [place], [place] [address]Dr. Yuki Diaz Bilirubin [Mass/Vol] 0.8 mg/dL Normal 0.2-1.0 [facility] Comment on above: Performed By: #### CMP, BNP ####[facility] Gwirerxtbw5462 [place] [address]Dr. Yuki Diaz Calcium [Mass/Vol] 8.0 mg/dL Critically low 8.5-10.1 [facility] Comment on above: Performed By: #### CMP, BNP ####[facility] Mjglhmnilf7211 [place] [address]Dr. Yuki Diaz Chloride [Moles/Vol] 107 mmol/L Normal 98-107 [facility] Comment on above: Performed By: #### CMP, BNP ####[facility] Osbttpkzfj1681 [place] [address]Dr. Yuki Diaz CO2 [Moles/Vol] 37.1 mmol/L Critically high 21.0-32.0 [facility] Comment on above: Performed By: #### CMP, BNP ####[facility] Obhgiidjfh99[address] [place], [place] [address]Dr. Yuki Diaz Creatinine [Mass/Vol] 1.94 mg/dL Critically high 0.70-1.30 [facility] Comment on above: Performed By: #### CMP, BNP ####[facility] Surbxiamoe2780 [place] [address]Dr. Yuki Diaz EGFR-AF DJIBOUTIAN 41 mL/min/1.73m2 Critically low >=60 [facility] Comment on above: Performed By: #### CMP, BNP ####[facility] Xgkyecsxeg0875 [place] [address]Dr. Yuki Diaz EGFR-NON AF DJIBOUTIAN 34 mL/min/1.73m2 Critically low >=60 [facility] Comment on above: Performed By: #### CMP, BNP ####[facility] Sipcmtgnar0901 [place] [address]Dr. Yuki Diaz Globulin (S) [Mass/Vol] 3.5 g/dL Normal [facility] Comment on above: Performed By: #### CMP, BNP ####[facility] Drzxkhpvlz6170 [place] [address]Dr. Yuki Diaz Glucose [Mass/Vol] 76 mg/dL Normal 74-106 [facility] Comment on above: Performed By: #### CMP, BNP ####[facility] Hmioyptvzc163[address] [place], [place] [address]Dr. Yuki Diaz Potassium [Moles/Vol] 3.7 mmol/L Normal 3.5-5.1 [facility] Comment on above: Performed By: #### CMP, BNP ####[facility] Aabwgovsoi50[address] [place], [place] [address]Dr. Yuki Diaz Protein [Mass/Vol] 6.4 g/dL Normal 6.4-8.2 [facility] Comment on above: Performed By: #### CMP, BNP ####[facility] Shtefynlnh[address] [place], [place] [address]Dr. Yuki Diaz Sodium [Moles/Vol] 148 mmol/L Critically high 136-145 [facility] Comment on above: Performed By: #### CMP, BNP ####[facility] Gcdrjkeioe29[address] [place], [place] [address]Dr. Yuki Diaz Urea nitrogen [Mass/Vol] 35.0 mg/dL Critically high 7.0-18.0 [facility] Comment on above: Performed By: #### CMP, BNP ####[facility] Lazlrhimmq7[address] [place], [place] [address]Dr. Yuki Diaz Urea nitrogen/Creatin ine [Mass ratio] 18.0 mg/mg Normal [facility] Comment on above: Performed By: #### CMP, BNP ####[facility] Uftwzjhdhs[address] [place], [place] [address]Dr. Yuki Diaz BNPon 12-30-2021 Natriuretic peptide B (Bld) [Mass/Vol] 4262.0 pg/mL Critically high <=1,800.0 [facility] Comment on above: Result Comment: repeated Performed By: #### C MP, BNP ####[facility] Ohasdtuxbu60[address] [place], [place] [address]Dr. Yuki Diaz CBC AUTO DIFFon 12-30-2021 BASO # 0.0 103/ul Normal 0.0-0.1 [facility] Comment on above: Performed By: #### CBC ####[facility] Pksbqwwhjn9907 [place] [address]Dr. Yuki Diaz Basophils/100 WBC (Bld) 0.2 % Normal 0.2-2.0 [facility] Comment on above: Performed By: #### CBC ####[facility] ital Lmpmhyfbhu996[address] [place], [place] [address]Dr. Yuki Diaz EO # 0.1 103/ul Normal 0.0-0.7 [facility] Comment on above: Performed By: #### CBC ####[facility] Telldpgucz15[address] [place], [place] [address]Dr. Yuki Diaz Eosinophils/100 WBC (Bld) 1.3 % Normal 0.9-7.0 [facility] Comment on above: Performed By: #### CBC ####[facility] Koacbplrbo74[address] [place], [place] [address]Dr. Yuki Diaz Erythrocyte distribution width (RBC) [Ratio] 13.9 % Normal 11.0-15.0 [facility] Comment on above: Performed By: #### CBC ####[facility] Sbfhxpwvmt[address] [place], [place] [address]Dr. Yuki Diaz Hematocrit (Bld) [Volume fraction] 35.6 % Critically low 42.0-54.0 [facility] Comment on above: Performed By: #### CBC ####[facility] Trzquzypxu[address] [place], [place] [address]Dr. Yuki Diaz Hemoglobin (Bld) [Mass/Vol] 11.6 g/dL Critically low 14.0-18.0 [facility] Comment on above: Performed By: #### CBC ####[facility] Wdhmwslkoo[address] [place], [place] [address]DrBebo Diaz IG # 0.02 10e3/ul Normal 0.00-0.03 [facility] Comment on above: Performed By: #### CBC ####[facility] Kpilztzdhl[address] [place], [place] [address]Dr. Yuki Diaz IG % 0.2 % Normal 0.0-0.5 [facility] Comment on above: Performed By: #### CBC ####[facility] ital Jypcrqzeqx1882 [place] [address]DrBebo Diaz LYMPH # 1.5 103/ul Normal 1.2-3.8 [facility] Comment on above: Performed By: #### CBC ####[facility] ital Sgknganyfp1571 [place] [address]DrBebo Diaz Lymphocytes/100 WBC (Bld) 17.6 % Critically low 20.5-60.0 [facility] Comment on above: Performed By: #### CBC ####[facility] Pguebdcmvd6224 [place] [address]DrBebo Diaz MANUAL DIFF REQ NO Normal [facility] Comment on above: Performed By: #### CBC ####[facility] Zdmoajtvqf2654 [place] [address]DrBebo Diaz MCH (RBC) [Entitic mass] 32.3 pg Normal 25.9-34.0 [facility] Comment on above: Performed By: #### CBC ####[facility] Lfxuwqbkoh6867 [place] [address]DrBebo Diaz MCHC (RBC) [Mass/Vol] 32.6 g/dL Normal 29.9-35.2 [facility] Comment on above: Performed By: #### CBC ####[facility] Vydgjrnuoi7562 [place] [address]DrBebo Diaz MCV (RBC) [Entitic vol] 99.2 fL Critically high 80.0-94.0 [facility] Comment on above: Performed By: #### CBC ####[facility] Cchbeaqppm0405 [place] [address]DrBebo Diaz MONO # 0.9 103/ul Critically high 0.3-0.8 [facility] Comment on above: Performed By: #### CBC ####[facility] Yizjrnapvl8101 [place] [address]DrBebo Diaz Monocytes/100 WBC (Bld) 10.9 % Normal 1.7-12.0 [facility] Comment on above: Performed By: #### CBC ####[facility] ital Hclpqxhuaj0449 [place] [address]DrBebo Yuki Diaz NEUT # 5.7 103/ul Normal 1.4-6.5 [facility] Comment on above: Performed By: #### CBC ####[facility] ital Rwjeutipag8546 [place] [address]DrBebo Yuki Diaz Neutrophils/100 WBC (Bld) 69.8 % Normal 43.0-75.0 [facility] Comment on above: Performed By: #### CBC ####[facility] [address] [place] [address]DrBebo Diaz Platelet mean volume (Bld) [Entitic vol] 10.3 fL Normal 9.5-13.5 [facility] Comment on above: Performed By: #### CBC ####[facility] Vxauyouzbt[address] [place] [address]Dr. Yuki Joe PLT 182 103/ul Normal 150-450 [facility] Comment on above: Performed By: #### CBC ####[facility] Vhawqclmmp0220 [place] [address]DrBebo Diaz RBC 3.59 106/ul Critically low 4.70-6.10 [facility] Comment on above: Performed By: #### CBC ####[facility] Mgydvzquqd5025 [place] [address]DrBebo Sheaalyssa Joe WBC 8.2 103/ul Normal 4.0-11.0 [facility] Comment on above: Performed By: #### CBC ####[facility] Aecninuzdi[address] [place] [address]DrBebo Diaz POINT OF CARE GLUCOSEon 05-2 Glucose [Mass/Vol] 134 mg/dL Critically high 74-106 [facility] Comment on above: Performed By: #### POCGLUC ####[facility] Ldxdknoykm50[address] [place] [address]DrBebo Diaz PROF 14(COMP METB)on 022 Albumin [Mass/Vol] 2.9 g/dL Critically low 3.4-5.0 [facility] Comment on above: Performed By: #### CMP, BNP ####[facility] Yxzococphm0478 [place] [address]Dr. Yuki Diaz Albumin/Globulin [Mass ratio] 0.9 {ratio} Normal [facility] Comment on above: Performed By: #### CMP, BNP ####[facility] Prmyphfwxb[address] [place], [place] [address]Dr. Yuki Diaz ALP [Catalytic activity/Vol] 87 U/L Normal 46-116 [facility] Comment on above: Performed By: #### CMP, BNP ####[facility] Vqknwkprky615[address] [place], [place] [address]Dr. Yuki Diaz ALT [Catalytic activity/Vol] 92 U/L Critically high 16-63 [facility] Comment on above: Performed By: #### CMP, BNP ####[facility] Rbfggnywnh64[address] [place], [place] [address]Dr. Yuki Diaz Anion gap [Moles/Vol] 8.4 mmol/L Normal [facility] Comment on above: Performed By: #### CMP, BNP ####[facility] Bksichbvht945[address] [place], [place] [address]Dr. Yuki Diaz AST [Catalytic activity/Vol] 29 U/L Normal 15-37 [facility] Comment on above: Performed By: #### CMP, BNP ####[facility] Pngipuszul95[address] [place], [place] [address]Dr. Yuki Diaz Bilirubin [Mass/Vol] 0.8 mg/dL Normal 0.2-1.0 [facility] Comment on above: Performed By: #### CMP, BNP ####[facility] Uwacjwzoke[address] [place], [place] [address]Dr. Yuki Diaz Calcium [Mass/Vol] 8.3 mg/dL Critically low 8.5-10.1 [facility] Comment on above: Performed By: #### CMP, BNP ####[facility] Rvffneyzlc026[address] [place], [place] [address]Dr. Yuki Diaz Chloride [Moles/Vol] 105 mmol/L Normal 98-107 [facility] Comment on above: Performed By: #### CMP, BNP ####[facility] Usjsgqjezd224[address] [place] [address]Dr. Yuki Diaz CO2 [Moles/Vol] 34.1 mmol/L Critically high 21.0-32.0 [facility] Comment on above: Performed By: #### CMP, BNP ####[facility] Dbmwivlqeo2878 [place] [address]Dr. Yuki Diaz Creatinine [Mass/Vol] 1.98 mg/dL Critically high 0.70-1.30 [facility] Comment on above: Performed By: #### CMP, BNP ####[facility] Qpzuexdors68[address] [place], [place] [address]Dr. Yuki Diaz EGFR-AF DJIBOUTIAN 40 mL/min/1.73m2 Critically low >=60 [facility] Comment on above: Performed By: #### CMP, BNP ####[facility] Leibifjust06[address] [place], [place] [address]Dr. Yuki Diaz EGFR-NON AF DJIBOUTIAN 33 mL/min/1.73m2 Critically low >=60 [facility] Comment on above: Performed By: #### CMP, BNP ####[facility] Efhsaxgedr434[address] [place], [place] [address]Dr. Yuki Diaz Globulin (S) [Mass/Vol] 3.4 g/dL Normal [facility] Comment on above: Performed By: #### CMP, BNP ####[facility] Xlnxunwtwh9047 [place] [address]Dr. Yuki Diaz Glucose [Mass/Vol] 129 mg/dL Critically high 74-106 [facility] Comment on above: Performed By: #### CMP, BNP ####[facility] Romehrazxe59[address] [place], [place] [address]Dr. Yuki Diaz Potassium [Moles/Vol] 3.5 mmol/L Normal 3.5-5.1 [facility] Comment on above: Performed By: #### CMP, BNP ####[facility] Mjqwsnlfsm58[address] [place], [place] [address]Dr. Monsealyssa Diaz Protein [Mass/Vol] 6.3 g/dL Critically low 6.4-8.2 [facility] Comment on above: Performed By: #### CMP, BNP ####[facility] Bjufzjofqz22[address] [place], [place] [address]Dr. Yuki Diaz Sodium [Moles/Vol] 144 mmol/L Normal 136-145 [facility] Comment on above: Performed By: #### CMP, BNP ####[facility] Htadnlocgm518[address] [place], [place] [address]Dr. Yuki Diaz Urea nitrogen [Mass/Vol] 37.0 mg/dL Critically high 7.0-18.0 [facility] Comment on above: Performed By: #### CMP, BNP ####[facility] Xxeikshjwb60[address] [place], [place] [address]Dr. Yuki Diaz Urea nitrogen/Creatin ine [Mass ratio] 18.7 mg/mg Normal [facility] Comment on above: Performed By: #### CMP, BNP ####[facility] Yjaqvnemfu468[address] [place], [place] [address]Dr. Yuki Joe BNPon 12-29-2021 Natriuretic peptide B (Bld) [Mass/Vol] 2335.0 pg/mL Critically high <=1,800.0 [facility] Comment on above: Result Comment: repeated Performed By: #### C MP, BNP ####[facility] Oqkoapmnol[address] [place], [place] [address]Dr. Yuki Diaz CBC AUTO DIFFon 12-29-2021 BASO # 0.0 103/ul Normal 0.0-0.1 [facility] Comment on above: Performed By: #### CBC ####[facility] ital Qxrmttifna24[address] [place], [place] [address]Dr. Yuki Diaz Basophils/100 WBC (Bld) 0.3 % Normal 0.2-2.0 [facility] Comment on above: Performed By: #### CBC ####[facility] Ednjvhdzqn4873[address] [place], [place] [address]Dr. Yuki Diaz EO # 0.1 103/ul Normal 0.0-0.7 [facility] Comment on above: Performed By: #### CBC ####[facility] ital Jipugfodaq4766 [address] Yuki Diaz Eosinophils/100 WBC (Bld) 1.4 % Normal 0.9-7.0 [facility] Comment on above: Performed By: #### CBC ####[facility] ital Jfneskfxbv[address] Yuki Diaz Erythrocyte distribution width (RBC) [Ratio] 14.2 % Normal 11.0-15.0 [facility] Comment on above: Performed By: #### CBC ####[facility] Jghwkntock[address] [place] [address]. Monsealyssa Diaz Hematocrit (Bld) [Volume fraction] 34.3 % Critically low 42.0-54.0 [facility] Comment on above: Performed By: #### CBC ####[facility] Txzyiwhdbv255[address] [place], [place] [address]Dr. Monsealyssa Diaz Hemoglobin (Bld) [Mass/Vol] 11.0 g/dL Critically low 14.0-18.0 [facility] Comment on above: Performed By: #### CBC ####[facility] Mgabzhhipm[address] [place] [address]. Yuki Diaz IG # 0.03 10e3/ul Normal 0.00-0.03 [facility] Comment on above: Performed By: #### CBC ####[facility] Jpbgrimvxz2735[address] [place], [place] [address]Dr. Yuki Diaz IG % 0.4 % Normal 0.0-0.5 [facility] Comment on above: Performed By: #### CBC ####[facility] Qsqlxwjvkq767[address] [place] [address]. Yuki Diaz LYMPH # 1.3 103/ul Normal 1.2-3.8 [facility] Comment on above: Performed By: #### CBC ####[facility] Mccvagngsp[address] [place] [address]. Yuki Diaz Lymphocytes/100 WBC (Bld) 18.5 % Critically low 20.5-60.0 [facility] Comment on above: Performed By: #### CBC ####[facility] ital Gnhzinwycz0[address] [place] [address]DrBebo Diaz MANUAL DIFF REQ NO Normal [facility] Comment on above: Performed By: #### CBC ####[facility] ital Ifnqxztrpo6257 [place] [address]DrBebo Diaz MCH (RBC) [Entitic mass] 31.7 pg Normal 25.9-34.0 [facility] Comment on above: Performed By: #### CBC ####[facility] ital Jxekdcejyl2757 [place] [address]DrBebo Diaz MCHC (RBC) [Mass/Vol] 32.1 g/dL Normal 29.9-35.2 [facility] Comment on above: Performed By: #### CBC ####[facility] Ojbxuouego0326 [place] [address]DrBebo Diaz MCV (RBC) [Entitic vol] 98.8 fL Critically high 80.0-94.0 [facility] Comment on above: Performed By: #### CBC ####[facility] Fcfpaqbeya[address] [place], [place] [address]DrBebo Diaz MONO # 0.7 103/ul Normal 0.3-0.8 [facility] Comment on above: Performed By: #### CBC ####[facility] ital Ekmvixjrqw6550 [place] [address]DrBebo Diaz Monocytes/100 WBC (Bld) 10.6 % Normal 1.7-12.0 [facility] Comment on above: Performed By: #### CBC ####[facility] ital Vkhlwxqanj0528 [place] [address]DrBebo Diaz NEUT # 4.8 103/ul Normal 1.4-6.5 [facility] Comment on above: Performed By: #### CBC ####[facility] ital Aoexedbcgn957[address] [place], [place] [address]DrBebo Diaz Neutrophils/100 WBC (Bld) 68.8 % Normal 43.0-75.0 [facility] Comment on above: Performed By: #### CBC ####[facility] ital Edvqfbnber7045 [place] [address]Dr. Yuki Diaz Platelet mean volume (Bld) [Entitic vol] 10.5 fL Normal 9.5-13.5 [facility] Comment on above: Performed By: #### CBC ####[facility] ital Gtzgqoagfs8[address] [place], [place] [address]Dr. Yuki Diaz PLT 183 103/ul Normal 150-450 [facility] Comment on above: Performed By: #### CBC ####[facility] Bmhieojpei877[address] [place], [place] [address]Dr. Monsealyssa Diaz RBC 3.47 106/ul Critically low 4.70-6.10 [facility] Comment on above: Performed By: #### CBC ####[facility] Rinhorbwes27[address] [place], [place] [address]Dr. Monsealyssa Joe WBC 7.0 103/ul Normal 4.0-11.0 [facility] Comment on above: Performed By: #### CBC ####[facility] Afgzfbcicc1623[address] [place], [place] [address]Dr. Yuki Diaz CULTURE URINEon 12-29-2021 CULTURE URINE Culture Observations : NO GROWTH. Normal [facility] Comment on above: Performed By: #### URCX ####[facility] pital Sygyqquftv9[address] [place], [place] [address]Dr. Monsealyssa Joe ECHO LIMITED STUDYon 022 ECHO LIMITED STUDY Normal [facility] POINT OF CARE GLUCOSEon 12-06 Glucose [Mass/Vol] 143 mg/dL Critically high 74-106 [facility] Comment on above: Performed By: #### POCGLUC ####[facility] Kjbqpgwjya8[address] [place], [place] [address]Dr. Monsealyssa Joe Glucose [Mass/Vol] 141 mg/dL Critically high 74-106 [facility] Comment on above: Performed By: #### POCGLUC ####[facility] Usxegamnty[address] [place], [place] [address]Dr. Yuki Diaz Glucose [Mass/Vol] 190 mg/dL Critically high 74-106 [facility] Comment on above: Performed By: #### POCGLUC ####[facility] Shxoeilgqz5[address] [place], [place] [address]Dr. Yuki Diaz PROF 14(COMP METB)on 022 Albumin [Mass/Vol] 2.5 g/dL Critically low 3.4-5.0 [facility] Comment on above: Performed By: #### CMP, BNP ####[facility] Tiyljfdjov153[address] [place], [place] [address]Dr. Yuki Diaz Albumin/Globulin [Mass ratio] 0.8 {ratio} Normal [facility] Comment on above: Performed By: #### CMP, BNP ####[facility] Ehtpjwvegt32[address] [place], [place] [address]Dr. Yuki Diaz ALP [Catalytic activity/Vol] 77 U/L Normal 46-116 [facility] Comment on above: Performed By: #### CMP, BNP ####[facility] Hfchbkbkug819[address] [place], [place] [address]Dr. Yuki Diaz ALT [Catalytic activity/Vol] 103 U/L Critically high 16-63 [facility] Comment on above: Performed By: #### CMP, BNP ####[facility] Nmbeyjjgrk615[address] [place], [place] [address]Dr. Yuki Diaz Anion gap [Moles/Vol] 12.3 mmol/L Normal [facility] Comment on above: Performed By: #### CMP, BNP ####[facility] Xujgkswant469[address] [place], [place] [address]Dr. Yuki Diaz AST [Catalytic activity/Vol] 41 U/L Critically high 15-37 [facility] Comment on above: Performed By: #### CMP, BNP ####[facility] Yhwsfknffh[address] [place], [place] [address]Dr. Yuki Diaz Bilirubin [Mass/Vol] 0.7 mg/dL Normal 0.2-1.0 [facility] Comment on above: Performed By: #### CMP, BNP ####[facility] Qaveayfdky0995 [place] [address]Dr. Yuki Diaz Calcium [Mass/Vol] 8.2 mg/dL Critically low 8.5-10.1 [facility] Comment on above: Performed By: #### CMP, BNP ####[facility] Muamcunzlh[address] [place], [place] [address]Dr. Yuki Diaz Chloride [Moles/Vol] 108 mmol/L Critically high 98-107 [facility] Comment on above: Performed By: #### CMP, BNP ####[facility] Rgzfiixesn5537[address] [place], [place] [address]Dr. Yuki Diaz CO2 [Moles/Vol] 28.4 mmol/L Normal 21.0-32.0 [facility] Comment on above: Performed By: #### CMP, BNP ####[facility] Xiwroekefg425[address] [place], [place] [address]Dr. Yuki Diaz Creatinine [Mass/Vol] 1.74 mg/dL Critically high 0.70-1.30 [facility] Comment on above: Performed By: #### CMP, BNP ####[facility] Mjbivxrvyp257[address] [place], [place] [address]Dr. Yuki Diaz EGFR-AF DJIBOUTIAN 46 mL/min/1.73m2 Critically low >=60 [facility] Comment on above: Performed By: #### CMP, BNP ####[facility] Bcsyzmfkto329[address] [place], [place] [address]Dr. Yuki Diaz EGFR-NON AF DJIBOUTIAN 38 mL/min/1.73m2 Critically low >=60 [facility] Comment on above: Performed By: #### CMP, BNP ####[facility] Islotzmnjp311[address] [place], [place] [address]Dr. Yuki Diaz Globulin (S) [Mass/Vol] 3.1 g/dL Normal [facility] Comment on above: Performed By: #### CMP, BNP ####[facility] Naeldphcdv11[address] [place], [place] [address]Dr. Yuki Diaz Glucose [Mass/Vol] 103 mg/dL Normal 74-106 [facility] Comment on above: Performed By: #### CMP, BNP ####[facility] Wxdsmbkrpt9755 [place] [address]Dr. Yuki Diaz Potassium [Moles/Vol] 3.7 mmol/L Normal 3.5-5.1 [facility] Comment on above: Performed By: #### CMP, BNP ####[facility] Rfimeancqv9402 [place] [address]Dr. Yuki Diaz Protein [Mass/Vol] 5.6 g/dL Critically low 6.4-8.2 [facility] Comment on above: Performed By: #### CMP, BNP ####[facility] Akwhkjjhlk217[address] [place], [place] [address]Dr. Yuki Diaz Sodium [Moles/Vol] 145 mmol/L Normal 136-145 [facility] Comment on above: Performed By: #### CMP, BNP ####[facility] Nknfnukikt6943[address] [place], [place] [address]Dr. Yuki Diaz Urea nitrogen [Mass/Vol] 33.0 mg/dL Critically high 7.0-18.0 [facility] Comment on above: Performed By: #### CMP, BNP ####[facility] Grclqrearh[address] [place], [place] [address]Dr. Yuki Daiz Urea nitrogen/Creatin ine [Mass ratio] 19.0 mg/mg Normal [facility] Comment on above: Performed By: #### CMP, BNP ####[facility] Ztiqlvvbun[address] [place], [place] [address]Dr. Yuki Diaz BNPon 12-28-2021 Natriuretic peptide B (Bld) [Mass/Vol] 1699.0 pg/mL Normal <=1,800.0 [facility] Comment on above: Performed By: #### TSH, BNP, CMP ####[facility] Awwewsdidn[address] [place], [place] [address]Dr. Yuki Diaz CARDIAC RACHEL 3-6on 2 CK [Catalytic activity/Vol] 93 U/L Normal 39-308 [facility] Comment on above: Performed By: #### CMREP ####[facility] Pqkygbbjnc[address] [place], [place] [address]Dr. Yuki Diaz CK.MB [Mass/Vol] 2.99 ng/mL Normal <=3.60 [facility] Comment on above: Performed By: #### CMREP ####[facility] Laocidxohh[address] [place] [address]Dr. Yuki Diaz HSTROP 30.7 pg/mL Normal 4.0-76.1 [facility] Comment on above: Result Comment: CUT-OFF POINTS HAVE BEEN ESTABLISHED BASED ON THE FOURTH UNIVERSAL DEFINITIONS OF MYOCARDIALINFARCTION. THE UPPER REFERENCE LIMIT (URL) OF TROPONIN, DEFINED THE 99TH PERCENTILE OFcTnI DISTRIBUTION IN A REFERENCE POPULATION, HAS BEEN CONFIRMED THE DECISION THRESHOLDFOR DE DIAGNOSIS. Performed By: #### C MREP ####[facility] Vlmqxfrmii30[address] [place] [address]Dr. Yuki Joe CK [Catalytic activity/Vol] 107 U/L Normal 39-308 [facility] Comment on above: Performed By: #### CMREP ####[facility] Mqkqiknkgw[address] [place], [place] [address]Dr. Yuki Joe CK.MB [Mass/Vol] 3.26 ng/mL Normal <=3.60 [facility] Comment on above: Performed By: #### CMREP ####[facility] Yopgpidupw434[address] [place], [place] [address]Dr. Yuki Diaz HSTROP 27.1 pg/mL Normal 4.0-76.1 [facility] Comment on above: Result Comment: CUT-OFF POINTS HAVE BEEN ESTABLISHED BASED ON THE [facility] UNIVERSAL DEFINITIONS OF MYOCARDIALINFARCTION. THE UPPER REFERENCE LIMIT (URL) OF TROPONIN, DEFINED THE 99TH PERCENTILE OFcTnI DISTRIBUTION IN A REFERENCE POPULATION, HAS BEEN CONFIRMED THE DECISION THRESHOLDFOR DE DIAGNOSIS. Performed By: #### C MREP ####[facility] Ecuabpjbgo[address] [place] [address]Dr. Yuki Diaz CARDIAC RACHEL ADMITon 022 CK [Catalytic activity/Vol] 101 U/L Normal 39-308 [facility] Comment on above: Performed By: #### CMADM ####[facility] Zrconzgtfr7878 [place] [address]Dr. Yuki Diaz CK.MB [Mass/Vol] 3.35 ng/mL Normal <=3.60 [facility] Comment on above: Performed By: #### CMADM ####[facility] Ytanssfidp[address] Yuki Diaz HSTROP 27.6 pg/mL Normal 4.0-76.1 [facility] Comment on above: Result Comment: CUT-OFF POINTS HAVE BEEN ESTABLISHED BASED ON THE FOURTH UNIVERSAL DEFINITIONS OF MYOCARDIALINFARCTION. THE UPPER REFERENCE LIMIT (URL) OF TROPONIN, DEFINED THE 99TH PERCENTILE OFcTnI DISTRIBUTION IN A REFERENCE POPULATION, HAS BEEN CONFIRMED THE DECISION THRESHOLDFOR DE DIAGNOSIS. Performed By: #### C MADM ####[facility] [address]jyj[address] [place] [address]. Yuki Diaz DILSHAD 153 ng/mL Critically high 16-96 [facility] Comment on above: Performed By: #### CMADM ####[facility] Pahfvlwupc[address] [place], [place] [address]Dr. Yuki Diaz CBC AUTO DIFFon 12-28-2021 BASO # 0.0 103/ul Normal 0.0-0.1 [facility] Comment on above: Performed By: #### CBC ####[facility] ital Mbbajximjb[address] [place] [address]. Yuki Diaz Basophils/100 WBC (Bld) 0.1 % Critically low 0.2-2.0 [facility] Comment on above: Performed By: #### CBC ####[facility] ital Zmprhzvqpv[address] Yuki Diaz EO # 0.1 103/ul Normal 0.0-0.7 [facility] Comment on above: Performed By: #### CBC ####[facility] ital Vqwswjtakc[address] [place], [place] [address]Dr. Yuki Diaz Eosinophils/100 WBC (Bld) 0.8 % Critically low 0.9-7.0 [facility] Comment on above: Performed By: #### CBC ####[facility] ital Dpapymwkdo464[address] [place], [place] [address]Dr. Yuki Diaz Erythrocyte distribution width (RBC) [Ratio] 14.2 % Normal 11.0-15.0 [facility] Comment on above: Performed By: #### CBC ####[facility] Zhpozdcthm9571 [place] [address]Dr. Yuki Diaz Hematocrit (Bld) [Volume fraction] 38.5 % Critically low 42.0-54.0 [facility] Comment on above: Performed By: #### CBC ####[facility] Igcvsfeywe16[address] [place] [address]Dr. Yuki Diaz Hemoglobin (Bld) [Mass/Vol] 12.3 g/dL Critically low 14.0-18.0 [facility] Comment on above: Performed By: #### CBC ####[facility] Bmxljukagc9092 [place] [address]Dr. Yuki Diaz IG # 0.06 10e3/ul Critically high 0.00-0.03 [facility] Comment on above: Performed By: #### CBC ####[facility] Msjktwxmfs[address] [place], [place] [address]Dr. Yuki Diaz IG % 0.7 % Critically high 0.0-0.5 [facility] Comment on above: Performed By: #### CBC ####[facility] Rpmhtgfdus9973 [place] [address]Dr. Yuki Diaz LYMPH # 1.0 103/ul Critically low 1.2-3.8 [facility] Comment on above: Performed By: #### CBC ####[facility] Lwgptrybcg7288 [place] [address]Dr. Yuki Diaz Lymphocytes/100 WBC (Bld) 10.7 % Critically low 20.5-60.0 [facility] Comment on above: Performed By: #### CBC ####[facility] Vtcxccjjty[address] [place], [place] [address]Dr. Yuki Diaz MANUAL DIFF REQ NO Normal [facility] Comment on above: Performed By: #### CBC ####[facility] Mxpagkxgpy0597 [place] [address]Dr. Yuki Diaz MCH (RBC) [Entitic mass] 31.9 pg Normal 25.9-34.0 [facility] Comment on above: Performed By: #### CBC ####[facility] Lfltilgrfl4178 [place] [address]Dr. Yuki Diaz MCHC (RBC) [Mass/Vol] 31.9 g/dL Normal 29.9-35.2 [facility] Comment on above: Performed By: #### CBC ####[facility] Ipclpsmlqu7012 [place] [address]Dr. Yuki Diaz MCV (RBC) [Entitic vol] 99.7 fL Critically high 80.0-94.0 [facility] Comment on above: Performed By: #### CBC ####[facility] Vmeyxufycv5466 [place] [address]Dr. Yuki Diaz MONO # 0.7 103/ul Normal 0.3-0.8 [facility] Comment on above: Performed By: #### CBC ####[facility] Urlcozoekt64[address] [place] [address]Dr. Yuki Diaz Monocytes/100 WBC (Bld) 7.2 % Normal 1.7-12.0 [facility] Comment on above: Performed By: #### CBC ####[facility] Oxyjnpjmea5051 [place] [address]Dr. Yuki Diaz NEUT # 7.4 103/ul Critically high 1.4-6.5 [facility] Comment on above: Performed By: #### CBC ####[facility] Abvftettyv3653 [place] [address]Dr. Yuki Diaz Neutrophils/100 WBC (Bld) 80.5 % Critically high 43.0-75.0 [facility] Comment on above: Performed By: #### CBC ####[facility] Waiwclszrb9335 [place] [address]Dr. Yuki Diaz Platelet mean volume (Bld) [Entitic vol] 10.0 fL Normal 9.5-13.5 [facility] Comment on above: Performed By: #### CBC ####[facility] ital Culxywyyja8727 [place], [place] [address]. Yuki Diaz PLT 194 103/ul Normal 150-450 [facility] Comment on above: Performed By: #### CBC ####[facility] Gedxfusvtk2444 [place], [place] [address]. Yuki Diaz RBC 3.86 106/ul Critically low 4.70-6.10 [facility] Comment on above: Performed By: #### CBC ####[facility] Hlwrxkkoxr8187 [place], [place] [address]. Yuki Diaz WBC 9.2 103/ul Normal 4.0-11.0 [facility] Comment on above: Performed By: #### CBC ####[facility] [address] [place], [place] [address]Fm. Yuki Diaz Covid-19 PCR (CVDTB)on 12-06 SARS-CoV-2 (COVID-19) RNA JARVIS+probe Ql (Unsp spec) Not detected Normal NOT DETECTED [facility] Comment on above: Result Comment: When diagnostic testing is negative, the possibility of a false negative should be considered inthe context of a patient's recent exposures and the presence of clinical signs and symptomsconsistent with SARS-CoV-2.This test is not yet approved or cleared by the [place] Food and Drug Administration (FDA).This test was developed by [employer], [place], [place]. The performance characteristics ofthis test were validated by [facility]. The results are not intended to beused as the sole means for clinical diagnosis or patient management decisions. [facility] is authorized under Clinical Laboratory Improvement [...] for this test is supported by the Product Architect of Health and Human Service's declaration that [...] be used). Performed By: #### C VDTB ####[facility] Frbgvrcwqi32[address] [place] [address]Dr. Yuki Diaz ER URINE PROFILEon 2 Bilirubin Ql (U) Negative Normal NEGATIVE [facility] Comment on above: Performed By: #### ERUR ####[facility] Iiaroysvjr[address] [place] [address]Dr. Monsealyssa Diaz Clarity (U) CLEAR Normal CLEAR [facility] Comment on above: Performed By: #### ERUR ####[facility] Oefahlaksg[address] [place] [address]Dr. Monsealyssa Diaz Color (U) YELLOW Normal YELLOW [facility] Comment on above: Performed By: #### ERUR ####[facility] Qqyqdhrvuk[address] [place] [address]Dr. Yuki Diaz ERUAHD A micrscopic examina tion will be performed if indicated. Normal [facility] Comment on above: Performed By: #### ERUR ####[facility] Sqophywwea37[address] [place] [address]Dr. Monsealyssa Diaz Glucose Ql (U) Negative Normal NEGATIVE [facility] Comment on above: Performed By: #### ERUR ####[facility] Lqyulvkzbv2750 [place] [address]Dr. Monsealyssa Diaz Hemoglobin Ql (U) Negative Normal NEGATIVE [facility] Comment on above: Performed By: #### ERUR ####[facility] Lqepruscqm8813 [place] [address]Dr. Monsealyssa Diaz Ketones Ql (U) Negative Normal NEGATIVE [facility] Comment on above: Performed By: #### ERUR ####[facility] Isxqymtflv80[address] [place] [address]Dr. Yuki Diaz LEUKOCYTES Negative Normal NEGATIVE [facility] Comment on above: Performed By: #### ERUR ####[facility] Wrtswyzvbl6830 [place] [address]Dr. Yuki Diaz Nitrite Ql (U) Negative Normal NEGATIVE [facility] Comment on above: Performed By: #### ERUR ####[facility] Ynrmmqogou3244 [place] [address]Dr. Yuki Diaz pH (U) 5.5 [pH] Normal 5-9 [facility] Comment on above: Performed By: #### ERUR ####[facility] Ytrnfsizjh[address] [place] [address]Dr. Yuki Diaz Protein (U) [Mass/Vol] 100 mg/dL Abnormal NEGATIVE/ TRACE [facility] Comment on above: Performed By: #### ERUR ####[facility] Cpmbejrnyx0409 [place] [address]Dr. Yuki Diaz SPEC GRAVITY >=1.030 Abnormal 1.005-<=1. 025 [facility] Comment on above: Performed By: #### ERUR ####[facility] Ryopcfumxu[address] [place] [address]Dr. Yuki Diaz UR MICRO IND NOT INDICATED Normal [facility] Comment on above: Performed By: #### ERUR ####[facility] Yvbcamvwpb2444 [place] [address]Dr. Yuki Diaz Urobilinogen Qn (U) 0.2 {Chidi'U}/dL Normal 0.2 - 1.0 [facility] Comment on above: Performed By: #### ERUR ####[facility] Jknsxzywtw[address]106 [place] [address]Dr. Yuki Diaz LACTATE/LACTIC ACIDon 2021 Lactate [Moles/Vol] 2.2 mmol/L Critically high 0.4-1.9 [facility] Comment on above: Performed By: #### LACT ####[facility] Ncyejcroiq6412 [place] [address]Dr. Yuki Diaz POINT OF CARE GLUCOSEon 12-06 Glucose [Mass/Vol] 183 mg/dL Critically high 74-106 [facility] Comment on above: Performed By: #### POCGLUC ####[facility] Lxlooivkpm[address] [place] [address]Dr. Yuki Diaz Glucose [Mass/Vol] 167 mg/dL Critically high 74-106 [facility] Comment on above: Performed By: #### POCGLUC ####[facility] Tevnupvmdp0594 [place] [address]Dr. Yuki Diaz PROF 14(COMP METB)on 022 Albumin [Mass/Vol] 2.9 g/dL Critically low 3.4-5.0 [facility] Comment on above: Performed By: #### TSH, BNP, CMP ####[facility] Tqqetldzyx7792 [place] [address]Dr. Yuki Diaz Albumin/Globulin [Mass ratio] 0.9 {ratio} Normal [facility] Comment on above: Performed By: #### TSH, BNP, CMP ####[facility] [address] [place], [place] [address]Dr. Yuki Diaz ALP [Catalytic activity/Vol] 83 U/L Normal 46-116 [facility] Comment on above: Performed By: #### TSH, BNP, CMP ####[facility] Ztvbrevouf[address] [place], [place] [address]Dr. Yuki Diaz ALT [Catalytic activity/Vol] 98 U/L Critically high 16-63 [facility] Comment on above: Performed By: #### TSH, BNP, CMP ####[facility] Yzbryqjqgy4306 [place] [address]Dr. Yuki Diaz Anion gap [Moles/Vol] 11.6 mmol/L Normal [facility] Comment on above: Performed By: #### TSH, BNP, CMP ####[facility] Hqkcofdubl8354 [place] [address]Dr. Yuki Diaz AST [Catalytic activity/Vol] 51 U/L Critically high 15-37 [facility] Comment on above: Performed By: #### TSH, BNP, CMP ####[facility] Zwwbmmpoaz3633 [place] [address]Dr. Yuki Diaz Bilirubin [Mass/Vol] 0.9 mg/dL Normal 0.2-1.0 [facility] Comment on above: Performed By: #### TSH, BNP, CMP ####[facility] Qpbhfg[address]ca[address] [place], [place] [address]Dr. Yuki Diaz Calcium [Mass/Vol] 8.3 mg/dL Critically low 8.5-10.1 [facility] Comment on above: Performed By: #### TSH, BNP, CMP ####[facility] Yoaunwkfdf[address] [place], [place] [address]Dr. Yuki Diaz Chloride [Moles/Vol] 106 mmol/L Normal 98-107 [facility] Comment on above: Performed By: #### TSH, BNP, CMP ####[facility] [address]qxsqzs[address] [place], [place] [address]Dr. Yuki Diaz CO2 [Moles/Vol] 28.2 mmol/L Normal 21.0-32.0 [facility] Comment on above: Performed By: #### TSH, BNP, CMP ####[facility] Dkhqiivtgl[address] [place], [place] [address]Dr. Yuki Diaz Creatinine [Mass/Vol] 1.84 mg/dL Critically high 0.70-1.30 [facility] Comment on above: Performed By: #### TSH, BNP, CMP ####[facility] Wttoldk[address] [place], [place] [address]Dr. Yuki Diaz EGFR-AF DJIBOUTIAN 43 mL/min/1.73m2 Critically low >=60 [facility] Comment on above: Performed By: #### TSH, BNP, CMP ####[facility] [address]ovpqwcryq[address] [place], [place] [address]Dr. Yuki Diaz EGFR-NON AF DJIBOUTIAN 36 mL/min/1.73m2 Critically low >=60 [facility] Comment on above: Performed By: #### TSH, BNP, CMP ####[facility] Xerdnvlorr[address] [place], [place] [address]Dr. Yuki Diaz Globulin (S) [Mass/Vol] 3.3 g/dL Normal [facility] Comment on above: Performed By: #### TSH, BNP, CMP ####[facility] Lpiuwwgupr0774 [place] [address]Dr. Yuki Diaz Glucose [Mass/Vol] 202 mg/dL Critically high 74-106 [facility] Comment on above: Performed By: #### TSH, BNP, CMP ####[facility] Llovygnsvh7760 [place] [address]Dr. Yuki Diaz Potassium [Moles/Vol] 3.8 mmol/L Normal 3.5-5.1 [facility] Comment on above: Performed By: #### TSH, BNP, CMP ####[facility] Mrnulxdynt[address] [place], [place] [address]Dr. Yuki Diaz Protein [Mass/Vol] 6.2 g/dL Critically low 6.4-8.2 [facility] Comment on above: Performed By: #### TSH, BNP, CMP ####[facility] Drshvikazj[address] [place], [place] [address]Dr. Yuki Diaz Sodium [Moles/Vol] 142 mmol/L Normal 136-145 [facility] Comment on above: Performed By: #### TSH, BNP, CMP ####[facility] Rhxxletdxy[address] [place], [place] [address]Dr. Yuki Diaz Urea nitrogen [Mass/Vol] 28.0 mg/dL Critically high 7.0-18.0 [facility] Comment on above: Performed By: #### TSH, BNP, CMP ####[facility] Egnmmerfax[address] [place], [place] [address]Dr. Yuki Diaz Urea nitrogen/Creatin ine [Mass ratio] 15.2 mg/mg Normal [facility] Comment on above: Performed By: #### TSH, BNP, CMP ####[facility] Natvyftxqm[address] [place], [place] [address]Dr. Yuki Diaz TSHon 12-28-2021 TSH 1.808 uIU/mL Normal 0.358-3.74 0 [facility] Comment on above: Performed By: #### TSH, BNP, CMP ####[facility] [address]sw[address] [place], [place] [address]Dr. Yuki Diaz TSH RANGE SEE BELOW Normal [facility] Comment on above: Result Comment: <0.34 UIU/ml HYPERTHYROI D 0.34-5.60 UIU/ml EUTHYROID >5.60 UIU/ml HYPOTHYROID Performed By: #### T SH, BNP, CMP ####[facility] Ulgjqlnkbn[address] [place] [address]Dr. Yuki Diaz XR CHEST 1 Von 12-28-2021 XR CHEST 1 V Normal [facility] BNPon 12-22-2021 Natriuretic peptide B (Bld) [Mass/Vol] 2907.0 pg/mL Critically high <=1,800.0 [facility] Comment on above: Performed By: #### BNP ####[facility] ital Pmbguciemr[address] [place] [address]Dr. Yuki Diaz PROF 14(COMP METB)on 022 Albumin [Mass/Vol] 3.0 g/dL Critically low 3.4-5.0 [facility] Comment on above: Performed By: #### CMP ####[facility] ital Jddaavgbhs[address]55 [place] [address]Dr. Yuki Diaz Albumin/Globulin [Mass ratio] 0.9 {ratio} Normal [facility] Comment on above: Performed By: #### CMP ####[facility] ital Ngouznqjer2400 [place] [address]Dr. Yuki Diaz ALP [Catalytic activity/Vol] 94 U/L Normal 46-116 [facility] Comment on above: Performed By: #### CMP ####[facility] ital Amzylfaiuf350[address] [place] [address]Dr. Yuki Diaz ALT [Catalytic activity/Vol] 39 U/L Normal 16-63 [facility] Comment on above: Performed By: #### CMP ####[facility] ital Buekmnxjxo[address] [place] [address]Dr. Yuki Diaz Anion gap [Moles/Vol] 13.4 mmol/L Normal [facility] Comment on above: Performed By: #### CMP ####[facility] ital Nagtlboxlk2570 [place] [address]Dr. Yuki Diaz AST [Catalytic activity/Vol] 11 U/L Critically low 15-37 [facility] Comment on above: Performed By: #### CMP ####[facility] Xzecfsvyfu[address] [place] [id number]. Yuki Diaz Bilirubin [Mass/Vol] 0.5 mg/dL Normal 0.2-1.0 [facility] Comment on above: Performed By: #### CMP ####[facility] Sknanoxash[address] [place] [address]Dr. Yuki Diaz Calcium [Mass/Vol] 8.5 mg/dL Normal 8.5-10.1 [facility] Comment on above: Performed By: #### CMP ####[facility] ital Azssazveli7532 [place] [address]Dr. Yuki Joe Chloride [Moles/Vol] 110 mmol/L Critically high 98-107 [facility] Comment on above: Performed By: #### CMP ####[facility] Ohfmxsauzk6650 [place] [address]Dr. Yuki Joe CO2 [Moles/Vol] 26.1 mmol/L Normal 21.0-32.0 [facility] Comment on above: Performed By: #### CMP ####[facility] Ibujqjlpwz2659 [place] [address]Dr. Yuki Joe Creatinine [Mass/Vol] 1.71 mg/dL Critically high 0.70-1.30 [facility] Comment on above: Performed By: #### CMP ####[facility] Redrstfneq6660 [place] [address]Dr. Yuki Joe EGFR-AF DJIBOUTIAN 47 mL/min/1.73m2 Critically low >=60 [facility] Comment on above: Performed By: #### CMP ####[facility] Gazcbjyeak[address]66 [place] [address]Dr. Monsealyssa Joe EGFR-NON AF DJIBOUTIAN 39 mL/min/1.73m2 Critically low >=60 [facility] Comment on above: Performed By: #### CMP ####[facility] Neknmuwhfn[address] [place] [address]Dr. Yuki Joe Globulin (S) [Mass/Vol] 3.4 g/dL Normal [facility] Comment on above: Performed By: #### CMP ####[facility] ital Kgfijfwczl9848 [place] [address]Dr. Yuki Diaz Glucose [Mass/Vol] 211 mg/dL Critically high 74-106 [facility] Comment on above: Performed By: #### CMP ####[facility] ital Suoocezozn6712 [place] [address]Dr. Yuki Diaz Potassium [Moles/Vol] 4.5 mmol/L Normal 3.5-5.1 [facility] Comment on above: Performed By: #### CMP ####[facility] ital Bcuinijaxk2359 [place] [address]Dr. Yuki Diaz Protein [Mass/Vol] 6.4 g/dL Normal 6.4-8.2 [facility] Comment on above: Performed By: #### CMP ####[facility] ital Lauyqrqxox8082 [place] [address]Dr. Yuki Diaz Sodium [Moles/Vol] 145 mmol/L Normal 136-145 [facility] Comment on above: Performed By: #### CMP ####[facility] ital Pvftxmftps5954 [place] [address]Dr. Yuki Diaz Urea nitrogen [Mass/Vol] 33.0 mg/dL Critically high 7.0-18.0 [facility] Comment on above: Performed By: #### CMP ####[facility] Gmacbbrlnj8596 [place] [address]Dr. Yuki Diaz Urea nitrogen/Creatin ine [Mass ratio] 19.3 mg/mg Normal [facility] Comment on above: Performed By: #### CMP ####[facility] ital Burgtjdtxw9[address] [place] [address]Dr. Yuki Joe Lab Reportson 12-15-2021 Lab Reports [id number]:127 Normal [facility] BASIC METABOLIC PANELon 08-0 Calcium mass conc 9.1 mg/dL Normal 8.6-10.3 [facility] Comment on above: Order Comment: No: Do not add to previou s draw Performed By: #### 5 0103 ####[facility] [place] [address], [facility] Chloride molar conc 104 mmol/L Normal 98-107 [facility] Comment on above: Order Comment: No: Do not add to previou s draw Performed By: #### 5 0103 ####[facility] [place] [address], [place] CO2 molar conc 27 mmol/L Normal 21-31 [facility] Comment on above: Order Comment: No: Do not add to previou s draw Performed By: #### 5 0103 ####[facility] [place] [address], [place] Creatinine mass conc 1.29 mg/dL Normal 0.70-1.30 [facility] Comment on above: Order Comment: No: Do not add to previou s draw Performed By: #### 5 0103 ####[facility] [place] [address], [place] GFR/1.73 sq M predicted among blacks MDRD vol rate/area (S/P/Bld) mL/min/{1.73_m2} Normal >60 [facility] Comment on above: Order Comment: No: Do not add to previou s draw Result Comment: Calc ulation may not be valid for patients over 70 years Performed By: #### 5 0103 ####[facility] [place] [address], [place] GFR/1.73 sq M predicted among non-blacks MDRD vol rate/area (S/P/Bld) 54 ml/min/1.73sq m Abnormal >60 [facility] Comment on above: Order Comment: No: Do not add to previou s draw Result Comment: Calc ulation may not be valid for patients over 70 years Performed By: #### 5 0103 ####[facility] [place] [address], [facility] Glucose mass conc 109 mg/dL High 70-100 [facility] Comment on above: Order Comment: No: Do not add to previou s draw Performed By: #### 5 0103 ####[facility] [place] [address], [facility] Potassium molar conc 3.6 mmol/L Normal 3.5-5.1 [facility] Comment on above: Order Comment: No: Do not add to previou s draw Performed By: #### 5 0103 ####[facility] [place] [address], [facility] Sodium molar conc 139 mmol/L Normal 136-145 [facility] Comment on above: Order Comment: No: Do not add to previou s draw Performed By: #### 5 0103 ####[facility] [place] [address], [facility] Urea nitrogen mass conc 19 mg/dL Normal 7-25 [facility] Comment on above: Order Comment: No: Do not add to previou s draw Performed By: #### 5 0103 ####[facility] CBC COMPLETE BLOOD COUNTon 0 - Erythrocyte distribution width Auto Ratio (RBC) 13.2 % Normal 11.5-15.0 [facility] Comment on above: Order Comment: No: Do not add to previou s draw Performed By: #### 5 0103 ####[facility] [place] [address], [facility] Hematocrit Auto Volume Fraction (Bld) 42.2 % Normal 39.0-50.0 [facility] Comment on above: Order Comment: No: Do not add to previou s draw Performed By: #### 5 0103 ####[facility] Hemoglobin mass conc (Bld) 13.9 g/dL Normal 13.0-17.0 [facility] Comment on above: Order Comment: No: Do not add to previou s draw Performed By: #### 5 0103 ####[facility] MCH Auto Entitic mass (RBC) 29.7 pg Normal 27.0-33.0 [facility] Comment on above: Order Comment: No: Do not add to previou s draw Performed By: #### 5 0103 ####[facility] MCHC Auto mass conc (RBC) 32.9 g/dL Normal 32.0-35.0 [facility] Comment on above: Order Comment: No: Do not add to previou s draw Performed By: #### 5 0103 ####[facility] MCV Auto Entitic volume (RBC) 90.2 fL Normal 82.0-98.0 [facility] Comment on above: Order Comment: No: Do not add to previou s draw Performed By: #### 5 0103 ####[facility] Nucleated RBC/100 WBC Ratio (Bld) 0 % Normal 0-0 [facility] Comment on above: Order Comment: No: Do not add to previou s draw Performed By: #### 5 0103 ####[facility] [place] [address], [facility] PLAT CNT 226 10*3/uL Normal 150-400 [facility] Comment on above: Order Comment: No: Do not add to previou s draw Performed By: #### 5 0103 ####[facility] RBC Auto #/vol (Bld) 4.68 10*6/uL Normal 4.20-5.70 [facility] Comment on above: Order Comment: No: Do not add to previou s draw Performed By: #### 5 0103 ####[facility] WBC Auto #/vol (Bld) 6.80 10*3/uL Normal 4.00-10.60 [facility] Comment on above: Order Comment: No: Do not add to previou s draw Performed By: #### 5 0103 ####[facility] Cardiovascular Lab Reporton 03-10-2018 Cardiovascular Lab Report [facility] Patient Name: Juanc[facility]os [facility] MR #: [id number] Physician: Oren Zafar M.D.Medicine Service Date: 03/09/2018Division of Birthdate: 2Cardiology Room #: 3CD [id number] CardiovascularServicAng[place] [address]Phone Fax Cardiovascular Laboratory ReportCARDIAC CATHETERIZATION REPORTINDICATION: Sheng [...] signed informed consent. He was brought to confectionery laboratory manager in a fasting state.The right groin area was prepped and draped in usual fashion. Usingmicropuncture technique, the right common femoral artery was accessed. Theinner cannula was advanced, limited femoral angiography was performed.Followed by upsizing to a 6-Slovenian x 11 cm sheath. Bilateral selectivecoronary angiography was then performed using 6-Slovenian JL4 and PC5gclomklqap catheters. The 6-Slovenian JR4 diagnostic catheter was used toselectively engage the radial graft to the OM2 and saphenous venous graftto the PDA branch. Angiography was performed. Catheter was removed. A6-Slovenian GEOVANNY catheter was used to selectively engage the left subclavianartery and then selectively engage the left internal mammary artery.Angiography was performed. Catheter was removed.Heparin was administered intravenously and therapeutic ACT confirmed duringthe procedure. A 6-Slovenian XB 3.0 guiding catheter was advanced and used toengage the left main coronary ostium. A Godfrey wire was advanced into thedistal circumflex. Balloon angioplasty in the mid circumflex was performedusing Emerge 3.0 x 15 mm balloon inflated at 10 atmospheres. Angiographyof this revealed suboptimal result. Therefore, a Synergy 3.0 x 24 mmdrug-eluting stent was deployed at 12 atmospheres and post dilated using NCQuantum [place] 3.0 x 20 mm noncompliant balloon inflated at 18 atmospheresthroughout the length of the stent. Angiography after administration ofintracoronary nitroglycerin showed excellent result with reduction of thestenosis to 0%. No evidence of dissection or perforation. The guidingcatheter was removed. The right femoral arteriotomy was managed with a6-Slovenian Angio-Seal device with good hemostasis. He was [...] The distal LAD has moderate diffuse disease ejxoics03%-70% beyond the anastomosis of the VEGA graft.Circumflex [...] 03/09/2018/06:08 P/Oren Simon M.D.Date Trans: 03/10/2018 04:31 A/mmoDN_[id number]: Derrick Lopez M.D. [address] [place] [address] [place] [facility] Discharge Summaryon 03-10-20 Discharge Summary MR#: [id number] [facility] Sheng [facility] Admitted: [...] as listed above, who was sent from [facility] due to concernof possible ACS. Apparently, the patient presented to [facility] complaining[facility] dizziness and vomiting, which was his presenting complaint prior toneeding his last CABG 16 years ago. EKG at [facility] showed new T-waveinversions in the inferior leads, not there on previous EKG. Firsttroponin was negative and commissioned security officer here at [facility], recommended to beingthe patient to be sent to [facility] for cardiac cath. The patient was admittedto Medicine on step-down service and Cardiology was consulted. The patientpreviously had stress test within the past 2 years, which was negative andrecent echocardiogram per patient history, which was performed 6 months agoshowed improvement regarding wall motion abnormalities and ejectionfraction. The patient was taken to confectionery laboratory manager following day after admission,revealing patent 3/3 bypass [...] taking and to discuss high-intensity statinwith his commissioned security officer, which he will be follow up with [...] Dict: 03/10/2018/12:04 P/TAYLOR Lua-CDate Trans: 03/10/2018 07:17 P/Esdras_JN:[id number]: Derrick Lopez M.D. [address] [place] [address] Normal [facility] POC GLUCOSE LABon 03-10-2018 Glucose mass conc 256 mg/dL High 70-100 [facility] Comment on above: Performed By: #### 10378, 72045, 70192, 41093, 84783 ####[facility] [place] [address], [facility] Glucose mass conc 160 mg/dL High 70-100 [facility] Comment on above: Performed By: #### 70832, 70387, 33990, 68928, 11401 ####[facility] [place] [address], [facility] BASIC METABOLIC PANELon Calcium mass conc 9.1 mg/dL Normal 8.6-10.3 [facility] Comment on above: Order Comment: No: Do not add to previou s draw Performed By: #### 5 0103 ####[facility] [place] [address], [facility] Chloride molar conc 103 mmol/L Normal 98-107 [facility] Comment on above: Order Comment: No: Do not add to previou s draw Performed By: #### 5 0103 ####[facility] [place] [address], [place] CO2 molar conc 28 mmol/L Normal 21-31 [facility] Comment on above: Order Comment: No: Do not add to previou s draw Performed By: #### 5 0103 ####[facility] [place] [address], [place] Creatinine mass conc 1.20 mg/dL Normal 0.70-1.30 [facility] Comment on above: Order Comment: No: Do not add to previou s draw Performed By: #### 5 0103 ####[facility] [place] [address], [facility] GFR/1.73 sq M predicted among blacks MDRD vol rate/area (S/P/Bld) mL/min/{1.73_m2} Normal >60 [facility] Comment on above: Order Comment: No: Do not add to previou s draw Result Comment: Calc ulation may not be valid for patients over 70 years Performed By: #### 5 0103 ####[facility] [place] [address], [facility] GFR/1.73 sq M predicted among non-blacks MDRD vol rate/area (S/P/Bld) 59 ml/min/1.73sq m Abnormal >60 [facility] Comment on above: Order Comment: No: Do not add to previou s draw Result Comment: Calc ulation may not be valid for patients over 70 years Performed By: #### 5 0103 ####[facility] [facility] [place] [address], [facility] Glucose mass conc 96 mg/dL Normal 70-100 [facility] Comment on above: Order Comment: No: Do not add to previou s draw Performed By: #### 5 0103 ####[facility] [facility] [place] [address], [place] Potassium molar conc 3.7 mmol/L Normal 3.5-5.1 [facility] Comment on above: Order Comment: No: Do not add to previou s draw Performed By: #### 5 0103 ####[facility] [place] [address], [place] Sodium molar conc 140 mmol/L Normal 136-145 [facility] Comment on above: Order Comment: No: Do not add to previou s draw Performed By: #### 5 0103 ####[facility] [place] [address], [place] Urea nitrogen mass conc 19 mg/dL Normal 7-25 [facility] Comment on above: Order Comment: No: Do not add to previou s draw Performed By: #### 5 0103 ####[facility] [facility].[address] POC GLUCOSE LABon 03-09-2018 Glucose mass conc 155 mg/dL High 70-100 [facility] Comment on above: Performed By: #### 91013 ####[facility] [facility] Glucose mass conc 91 mg/dL Normal 70-100 [facility] Comment on above: Performed By: #### 85696 ####[facility] [facility].[address] Glucose mass conc 107 mg/dL High 70-100 [facility] Comment on above: Performed By: #### 99752 ####[facility] [facility].[address] Glucose mass conc 115 mg/dL High 70-100 [facility] Comment on above: Performed By: #### 65669 ####[facility] [facility].[address] UFH HEPARIN ASSAYon 03-09-20 18 UNFRACTIONATED HEPARIN 0.42 IU/mL Normal 0.30-0.70 [facility] Comment on above: Result Comment: Rivaroxaban and Apixaban will interfere with the anti Xa assay used tomonitor UFH and LMWH. Performed By: #### 5 0103 ####[facility] [place] [address], [facility] UNFRACTIONATED HEPARIN 0.27 IU/mL Low 0.30-0.70 [facility] Comment on above: Result Comment: Rivaroxaban and Apixaban will interfere with the anti Xa assay used tomonitor UFH and LMWH. Performed By: #### 5 0103 ####[facility] [facility].[address] APTTon 03-08-2018 aPTT Coag time (Bld) 68.3 s High 25.0-35.0 [facility] Comment on above: Order Comment: No: [...] UFH <0.1 Performed By: #### 5 7307, 12564 ####[facility] BASIC METABOLIC PANELon Calcium mass conc 9.4 mg/dL Normal 8.6-10.3 [facility] Comment on above: Order Comment: No: Do not add to previou s draw Performed By: #### 9 9909, 28568, 43067, 18002, 11315 ####[facility] [place] [address], [facility] Chloride molar conc 105 mmol/L Normal 98-107 [facility] Comment on above: Order Comment: No: Do not add to previou s draw Performed By: #### 9 9909, 19217, 79290, 80324, 29578 ####[facility] [facility].[address] CO2 molar conc 28 mmol/L Normal 21-31 [facility] Comment on above: Order Comment: No: Do not add to previou s draw Performed By: #### 9 9909, 58111, 04007, 55346, 77661 ####[facility] [place] [address], [facility] Creatinine mass conc 1.13 mg/dL Normal 0.70-1.30 [facility] Comment on above: Order Comment: No: Do not add to previou s draw Performed By: #### 9 9909, 88700, 98241, 55875, 12597 ####[facility] [facility] [place] [address], [facility] GFR/1.73 sq M predicted among blacks MDRD vol rate/area (S/P/Bld) mL/min/{1.73_m2} Normal >60 [facility] Comment on above: Order Comment: No: Do not add to previou s draw Result Comment: Calc ulation may not be valid for patients over 70 years Performed By: #### 9 9909, 00313, 96811, 92806, 59609 ####[facility] [place] [address], [facility] GFR/1.73 sq M predicted among non-blacks MDRD vol rate/area (S/P/Bld) mL/min/{1.73_m2} Normal >60 [facility] Comment on above: Order Comment: No: Do not add to previou s draw Result Comment: Calc ulation may not be valid for patients over 70 years Performed By: #### 9 9909, 84660, 39208, 69521, 02786 ####[facility] [place] [address], [facility] Glucose mass conc 108 mg/dL High 70-100 [facility] Comment on above: Order Comment: No: Do not add to previou s draw Performed By: #### 9 9909, 18724, 01270, 80395, 90152 ####[facility] [place] [address], [place] Potassium molar conc 3.7 mmol/L Normal 3.5-5.1 [facility] Comment on above: Order Comment: No: Do not add to previou s draw Performed By: #### 9 9909, 35812, 69757, 84707, 93456 ####[facility] [place] [address], [place] Sodium molar conc 141 mmol/L Normal 136-145 [facility] Comment on above: Order Comment: No: Do not add to previou s draw Performed By: #### 9 9909, 39713, 71619, 35290, 08219 ####[facility] Urea nitrogen mass conc 21 mg/dL Normal 7-25 [facility] Comment on above: Order Comment: No: Do not add to previou s draw Performed By: #### 9 9909, 48347, 64864, 31869, 24845 ####[facility] CBC W/DIFFon 03-08-2018 ABS BASOPHILS 0.0 10*3/uL Normal 0.0-0.2 [facility] Comment on above: Performed By: #### 78268 ####[facility] ABS IMM GRANS 0.0 10*3/uL Normal 0.0-0.2 [facility] Comment on above: Performed By: #### 68138 ####[place] [address] ABS NEUTROPHILS 4.4 10*3/uL Normal 1.6-7.6 [facility] Comment on above: Performed By: #### 91337 ####[facility] Basophils Auto #/vol (Bld) 0.6 % Normal 0.0-1.0 [facility] Comment on above: Performed By: #### 97041 ####[facility] Eosinophils Auto #/vol (Bld) 0.3 10*3/uL Normal 0.0-0.5 [facility] Comment on above: Performed By: #### 26538 ####[facility] [facility].[address] Eosinophils/100 WBC Auto (Bld) 4.0 % Normal 0.0-6.0 [facility] Comment on above: Performed By: #### 13906 ####[facility] Erythrocyte distribution width Auto Ratio (RBC) 13.3 % Normal 11.5-15.0 [facility] Comment on above: Performed By: #### 12791 ####[place] [address] Hematocrit Auto Volume Fraction (Bld) 41.7 % Normal 39.0-50.0 [facility] Comment on above: Performed By: #### 11593 ####[place] [address] Hemoglobin mass conc (Bld) 13.7 g/dL Normal 13.0-17.0 [facility] Comment on above: Performed By: #### 74417 ####[address] IMMATURE GRANS 0.3 % Normal 0.0-1.0 [facility] Comment on above: Performed By: #### 48670 ####[place] [address] Lymphocytes Auto #/vol (Bld) 1.7 10*3/uL Normal 1.2-4.0 [facility] Comment on above: Performed By: #### 19425 ####[place] [address] Lymphocytes/100 WBC Auto (Bld) 24.0 % Normal 20.0-45.0 [facility] Comment on above: Performed By: #### 92933 ####[facility] MCH Auto Entitic mass (RBC) 29.7 pg Normal 27.0-33.0 [facility] Comment on above: Performed By: #### 19663 ####[facility] MCHC Auto mass conc (RBC) 32.9 g/dL Normal 32.0-35.0 [facility] Comment on above: Performed By: #### 34026 ####[facility] MCV Auto Entitic volume (RBC) 90.3 fL Normal 82.0-98.0 [facility] Comment on above: Performed By: #### 90555 ####[place] [address] Monocytes Auto #/vol (Bld) 0.6 10*3/uL Normal 0.1-1.0 [facility] Comment on above: Performed By: #### 47776 ####[facility] MONOS 7.9 % Normal 5.0-12.0 [facility] Comment on above: Performed By: #### 25809 ####[place] [address] Neutrophils/100 WBC Auto (Bld) 63.2 % Normal 40.0-72.0 [facility] Comment on above: Performed By: #### 71023 ####[place] [address] Nucleated RBC/100 WBC Ratio (Bld) 0 % Normal 0-0 [facility] Comment on above: Performed By: #### 02087 ####[facility] PLAT CNT 209 10*3/uL Normal 150-400 [facility] Comment on above: Performed By: #### 41341 ####[facility] [facility].[address] RBC Auto #/vol (Bld) 4.62 10*6/uL Normal 4.20-5.70 [facility] Comment on above: Performed By: #### 55131 ####[facility] [facility].[address] WBC Auto #/vol (Bld) 6.93 10*3/uL Normal 4.00-10.60 [facility] Comment on above: Performed By: #### 94004 ####[facility] History and Physicalon 03-08 History and Physical [id number] Admitted: 03/08/2018 Date of : 1940 Attending Physician: Shiva Seay MD Room #: [id number] Discharge Date: HISTORY AND PHYSICALCHIEF COMPLAINT: Dizziness and vomiting.HISTORY OF PRESENT ILLNESS: This patient is 77-year-old male with pastmedical history of coronary artery disease, status post CABG 16 years ago,hypertension, hyperlipidemia, and diabetes, who was sent from [facility] because of possibility of ACS. The patient presented to [facility] complaining of dizziness and vomiting while he was working on [employer]. The patient stated that he had similar symptoms when he had hisheart attack 16 years ago that ended up having CABG. In the [facility], his EKG showed new T inversions in inferior leads, which theywere not there previously. The 1st troponin was negative. The ER doctorcalled his commissioned security officer, Dr. Simon, who [facility] The patient [...] Dict: 03/08/2018/05:06 P/Lizbeth Singh Trans: 03/08/2018 05:31 P/[id number] Normal [facility] LIVER BATTERYon 03-08-2018 Albumin mass conc 4.0 g/dL Normal 3.5-5.7 [facility] Comment on above: Order Comment: No: Do not add to previou s draw Performed By: #### 9 9909, 76670, 32018, 54257, 62416 ####[facility] [place] [address], [facility] ALKALINE PHOSPH 53 IU/L Normal 34-104 [facility] Comment on above: Order Comment: No: Do not add to previou s draw Performed By: #### 9 9909, 15940, 81033, 33305, 26686 ####[facility] [place] [address], [facility] ALT enzyme act/vol 21 U/L Normal 7-52 [facility] Comment on above: Order Comment: No: Do not add to previou s draw Performed By: #### 9 9909, 44578, 79596, 22614, 58622 ####[facility] [place] [address], [place] AST enzyme act/vol 19 U/L Normal 13-39 [facility] Comment on above: Order Comment: No: Do not add to previou s draw Performed By: #### 9 9909, 26160, 94387, 18978, 47579 ####[facility] [place] [address], [place] Bilirubin mass conc 0.8 mg/dL Normal 0.3-1.0 [facility] Comment on above: Order Comment: No: Do not add to previou s draw Performed By: #### 9 9909, 82398, 92324, 92249, 89134 ####[facility] [place] [address], [place] Bilirubin.direct mass conc 0.2 mg/dL Normal 0.0-0.2 [facility] Comment on above: Order Comment: No: Do not add to previou s draw Performed By: #### 9 9909, 38844, 65671, 65774, 62543 ####[facility] [place] [address], [facility] Protein mass conc 7.1 g/dL Normal 6.0-8.3 [facility] Comment on above: Order Comment: No: Do not add to previou s draw Performed By: #### 9 9909, 06529, 50772, 61027, 80534 ####[facility] [place] [address], [facility] MAGNESIUM BLOODon 03-08-2018 Magnesium mass conc 2.0 mg/dL Normal 1.9-2.7 [facility] Comment on above: Order Comment: No: Do not add to previou s draw Performed By: #### 9 9909, 44700, 96167, 28132, 08780 ####[facility] [place] [address], [facility] PHOSPHORUS BLOODon 8 Phosphate mass conc 3.2 mg/dL Normal 2.5-5.0 [facility] Comment on above: Order Comment: No: Do not add to previou s draw Performed By: #### 9 9909, 90834, 70722, 67516, 17075 ####[facility] [place] [address], [facility] POC GLUCOSE LABon 03-08-2018 Glucose mass conc 164 mg/dL High 70-100 [facility] Comment on above: Performed By: #### 78731 ####[facility] [place] [address], [facility] Glucose mass conc 114 mg/dL High 70-100 [facility] Comment on above: Performed By: #### 76327 ####[facility] PROTHROMBIN TIMEon 8 INR Coag RelTime (PPP) 1.11 {INR} Normal 0.91-1.16 [facility] Comment on above: Order Comment: No: [...] OF ACTION, CLINICALEFFECTIVENESS, AND OPTIMAL THERAPEUTIC RANGE. [id number];108:[id number]. Performed By: #### 5 7307, 46812 ####[facility].[address] Prothrombin time (PT) Coag time (PPP) 14.3 s Normal 12.3-14.8 [facility] Comment on above: Order Comment: No: Do not add to previou s draw Result Comment: ALL RESULTS MUST BE INTERPRETED WITH RESPECT TO BLOOD DRAWING ARTIFACTOR DILUTION ERROR OF ANTICOAGULANT AT THE TIME OF SAMPLING. Performed By: #### 5 7307, 61149 ####[facility] TROPONIN-Ion 03-08-2018 Troponin I.cardiac mass conc 0.01 ng/mL Normal 0.00-0.04 [facility] Comment on above: Order Comment: No: Do not add to previou s draw Result Comment: REFE RENCE RANGES: 0.00 - 0.04 ng/ml NORMAL 0.05 - 0.50 ng/ml INDETERMINATE > 0.50 ng/ml CONSISTENT WITH AN M.I. Performed By: #### 9 9909, 03876, 62611, 41486, 64220 ####[facility] Vital Signs Date Time Vital Sign Value Performing Clinician Kristie kerr 02-15-2022 10:03-0400 Blood Pressure Location César Gordon Jr. [facility] 02-15-2022 10:03-0400 Diastolic blood pressure 66 mm[Hg] César Gordon Jr. [facility] 02-15-2022 10:03-0400 Heart rate 80 /min César Gordon Jr. [facility] 02-15-2022 10:03-0400 Respiratory rate 16 /min César Gordon Jr. [facility] 02-15-2022 10:03-0400 Systolic blood pressure 88 mm[Hg] César Gordon Jr. [facility] Encounters Encounter Date Encounter Type Care Provider Facility Start: 07-14-2023 End: 07-14-2023 ambulatory OREN SIMON [facility] Start: 03-13-2023 End: 03-13-2023 ambulatory LEATHA MARROQUIN [facility] Start: 12-15-2022 End: 12-15-2022 ambulatory HUANG YOUNGBLOOD . Facility:[facility] Start: 11-23-2022 End: 11-24-[address] DERRICK LOPEZ . Facility:[facility] Start: 10-25-2022 End: 10-27-2022 Evaluation and management of inpatient DR DERRICK LOPEZ . Facility:[facility] Start: 10-22-2022 End: 10-22-2022 ambulatory LEVAR CABA . Facility:[facility] Start: 10-13-2022 End: 10-14-[address] DERRICK LOPEZ . Facility:[facility] Start: 09-20-2022 End: 09-21-2022 ambulatory TASHA OROZCO Facility:[facility] Start: 09-20-2022 End: 09-20-2022 Patient encounter procedure TASHA OROZCO [facility] Start: 09-19-2022 End: 09-20-[address] DERRICK LOPEZ . Facility:[facility] Start: 09-12-2022 End: 09-12-2022 [facility] Start: 09-02-2022 End: 09-03-[address] [...] . Facility: Start: 02-15-2022 End: 02-16-2022 ambulatory éCsar Gordon Facility:[facility] Start: 02-15-2022 End: 07-12-2022 Patient encounter procedure César Gordon Jr. [facility] Start: 02-09-[address] DERRICK LOPEZ . [...] Evaluation and management of inpatient ZAYRA RAMIREZ Facility[facility] Procedures Date Procedure Procedure Detail Performing Clinician Start: 11-23-[address] BIRANNE LOPEZ . Comment on above: Performed By: #### V ITAD, PSASC ####[facility] [address] [place] [address]Dr. Yuki Diaz Start: 10-25-2022 Transfusion of Nonau tologous Red Blood Cells into Peripheral Vein, Percutaneous Approach DR DERRICK LOPEZ . Start: 06-14-[address] BRIANNE LOPEZ . Comment on above: Performed By: #### P SAD ####[facility] [address] [place] [address]Vk. Yuki Diaz Start: 03-09-2018 DILATION OF 1 COR AR T WITH DRUG-ELUT INTRA, PERC APPROACH OREN JORBFERCHO Start: 03-09-2018 FLUOROSCOPY OF L INT MAMM GRAFT USING OTH CONTRAST OREN JORBFERCHO Start: 03-09-2018 FLUOROSCOPY OF MULT COR A GRAFT USING OTH CONTRAST OREN SIMON Start: 03-09-2018 FLUOROSCOPY OF MULTI PLE CORONARY ARTERIES USING OTH CONTRAST OREN SIMON Start: 03-30-2016 Cystourethroscopy [facility] dilation of urethral stricture César [...] vax César Gordon Jr. [facility] 05-13-2021 SARS-CoV-2 (COVID-19 ) mRNA BNT-162b2 vax TASHA OROZCO [facility] 05-10-2021 influenza virus vaccine, unspecified formulation TASHA OROZCO [facility] 12-05-2020 SARS-CoV-2 (COVID-19 ) mRNA BNT-162b2 vax César Gordon Jr. [facility] 11-05-2020 SARS-CoV-2 (COVID-19 ) mRNA BNT-162b2 vax César Gordon Jr. [facility] 10-02-2020 SARS-CoV-2 (COVID-19 ) mRNA BNT-162b2 vax TASHA OROZCO [facility] 09-04-2020 SARS-CoV-2 (COVID-19 ) mRNA BNT-162b2 vax TASHA OROZCO [facility] 05-06-2020 influenza virus vaccine, unspecified formulation TASHA OROZCO [facility] 05-30-2017 influenza, unspecifi ed formulation TASHA OROZCO [facility] 05-30-2017 pneumococcal conjuga te vaccine, 13 valent TASHA OROZCO [facility] 05-06-2016 influenza virus vaccine, unspecified formulation TASHA OROZCO [facility] Payers Date Payer Category Payer Private Health Insurance [id number] 1959 Self-pay 1940 Unknown [id number] 2.16.8 40.1.632315.3.579.2.727 1940 Unknown [id number] 2.16.8 40.1.271781.3.579.2.727 1940 Unknown [id number] 2.16.84 0.1.966266.3.579.2.593 1940 Unknown [id number] 2.16.84 0.1.965389.3.579.2.593 1942 Unknown [id number] 2.16.84 0.1.745117.3.579.2.593 1942 Unknown [id number] 2.16.84 0.1.871440.3.579.2.593 1942 Unknown [id number] 2.16.84 0.1.208963.3.579.2.593 1942 Unknown [id number] 2.16.84 0.1.431176.3.579.2.593 1942 Unknown [id number] 2.16.84 0.1.148844.3.579.2.593 1942 Unknown [id number] 2.16.84 0.1.646149.3.579.2.593 1942 Unknown [id number] 2.16.84 0.1.941685.3.579.2.593 1942 Unknown [id number] 2.16.84 0.1.523333.3.579.2.593 1942 Unknown [id number] 2.16.84 0.1.757819.3.579.2.593 1942 Unknown [id number] 2.16.84 0.1.604175.3.579.2.593 1942 Unknown [id number] 2.16.84 0.1.980523.3.579.2.593 1942 Unknown [id number] 2.16.84 0.1.973708.3.579.2.593 1942 Unknown [id number] 2.16.84 0.1.190089.3.579.2.593 1942 Unknown [id number] 2.16.84 0.1.152230.3.579.2.593 1942 Unknown [id number] 2.16.84 0.1.966615.3.579.2.593 1942 Unknown [id number] 2.16.84 0.1.089108.3.579.2.593 1942 Unknown [id number] 2.16.84 0.1.631444.3.579.2.593 1942 Unknown [id number] 2.16.84 0.1.610359.3.579.2.593 1942 Unknown [id number] 2.16.84 0.1.772455.3.579.2.593 1942 Unknown [id number] 2.16.84 0.1.921323.3.579.2.593 1942 Unknown [id number] 2.16.84 0.1.186354.3.579.2.593 1942 Unknown [id number] 2.16.84 0.1.543640.3.579.2.593 [facility] [id number] Social History Date Type Detail Facility Start: 02-15-2022 Tobacco smoking status Ex-smoker (fi nding) [facility] Sex Assigned At Male [facility] Functional Status Date Assessment Result Facility 02-15-2022 Functional Status N/A [facility] Clinical Notes 02-15-2022 to 07-14-2023 Note Date & Type Note Facility 07-14-2023 Note [facility] Subjective Sheng Bauer is a 83 y.o. year old male patient being seen for 3 mo follow up chronic systolic heart failure, CAD, and hypertension. He was admitted to [facility] in Apr 2023. Doing very well since then, as he denies chest pain, SOB, LE edema, and palpitations. Patient Active Problem List Diagnosis Coronary arteriosclerosis Hypertensive disorder Hx of CABG Chronic systolic heart failure ([facility]/HCC) Hx of deep venous thrombosis Diabetes [...] unspecified Major depressive disorder, recurrent, unspecified (CMS/[facility]) Limitation of activities due to disability [...] OM) in 2001. He has history of DE in 2001. He has hypertension on treatment. He has CKD. In 2017 he was admitted to [facility] symptoms of unstable angina and new onset T-wave inversions in the inferolateral leads. Cardiac cath was done and he underwent stenting of the circumflex with Synergy TONYA on 03/09/2018. He did get admitted in December 2019 to [facility] after a tree fell on him, with [...] left side. Heart (more content not included)... [facility] 03-13-2023 Note Eliquis was decrease d to 2.5 mg bid per PCP in light of CKD, bruising of extremities and noted fall earlier this year. 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 [facility] 03-13-2023 Note [facility] II-III, current ly euvolemic without exacerbation, weight is currently down from last visit and overall pt is doing well Continue GDMT- ASA, lipitor, coreg, entrestot and aldatone Diuretic therapy- bumex 2 mg daily Monitor daily weights, I&O, fluid restriction 1.5-2L/day, renal function and electrolytes [facility] 03-13-2023 Note Patient here for 6 m o follow up CAD, hypertension, CHF, and hx of DVT. He was admitted to [facility] in January 2023 for pneumonia. Then admitted [...] All other systems reviewed and are negative. [facility] 03-13-2023 Note [facility] PRO[facility] ESS [...] hx of DVT. He was admitted to [facility] in March s/p fall, January 2023 for [...] OM) in 2001. He has history of DE in 2001. He has hypertension on treatment. He has CKD with Cr previously around 1.5. In 2017 he was admitted to [facility] with symptoms of unstable angina and new onset T-wave inversions in the inferolateral leads. Cardiac cath was done and he underwent stenting of the circumflex with Synergy TONYA on 03/09/2018. He did get admitted in December 2019 to [facility] after a tree fell on him, with [...] in the mo (more content not included)... [facility] 09-12-2022 Note [facility] Subjective Sheng Bauer is a [...] OM) in 2001. He has history of DE in 2001. He has hypertension on treatment. He has CKD with Cr previously around 1.5. In 2017 he was admitted to [facility] with symptoms of unstable angina and new onset T-wave inversions in the inferolateral leads. Cardiac cath was done and he underwent stenting of the circumflex with Synergy TONYA on 03/09/2018. He did get admitted in December 2019 to [facility] after a tree fell on him, with [...] amitriptyline (Elavil) 2 (more content not included)... [facility] 02-15-2022 Hospital Discharge instructions Patient Education [...] including vitamins, herbs, eye drops, creams, and tqro-nko-bpsoqma medicines. This also includes: ?Medicines to assist [...] 08/26/2005 Document Revised: 07/06/2018 Document Reviewed: 04/30/2018 [employer] Patient Education 2020 [employer]. Follow Up Care 08/10/2021 09:51:10 With:Evan Ochoa MD, César Vega, URO Address: [facility] [address], [place] [id number]- When:Within 6 Month(s) Comments:w/ psa [facility] Evaluation + Plan note Future Appointments Appointment Date:08/23/2022 10:30:00 AM Scheduled Provider:César Gordon Jr., MD Location:[facility] Appointment Type:URO Office Visit Diagnostic Tests PendingPSA Total 02/15/22 [facility] Hospital course Narrative No data available for this section [facility] Hospital Discharge instructions No data available for this section [facility] Progress note No data available for this section [facility] Summary Purpose Family History No Family [...] and content) DATE CREATED AUTHOR 03/19/2018 [facility] DATE CREATED AUTHOR AUTHOR'S ORGANIZ ATION 09/21/2022 [facility] DATE CREATED AUTHOR AUTHOR'S ORGANIZ ATION 12/16/2022 [facility] DATE CREATED AUTHOR AUTHOR'S ORGANIZ ATION 07/17/2023 [facility] Care Team (unrecognized sect ion and content) Personnel Name: Derrick Lopez MD Address: [address] [place] [address] Personnel Name: Derrick Lopez MD Address: Address: [address] [place] [address] FOR RECORDS PERTAINING TO PATIENTS WHO ARE [...] BE BASED ON THE PRIMARY CLINICAL RECORDS. [facility] [employer] [facility]. provides no warranty or guarantee of the accuracy or completeness of information in this document.
[2024-02-06] MEDS: HYDRALAZINE HCL 20 MG/ML VIAL 10 MG IVP ×2 (13:45→20:18)
--- OUTSIDE RECORDS SUMMARY | 2024-02-06 14:16 | XMS_ITS | CCD ---
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 Role Phone AHMED, ZAYRA Unavailable Unavailable AHMED, ZAYRA Unavailable Unavailable LUCY DERRICK Unavailable Unavailable HAYJAZLYN Unavailable Unavailable [place] Unavailable Unavailable UNKNOWN, PROVIDER Unavailable Unavailable Derrick [...] DR MEZA Attending Unavailable HOY ., DR EMZA Consulting Unavailable HOY ., DR MEZA Primary [...] DEANA, DR BOBBI Leblanc Consulting Unavailnaomy CAMPOS, DELANYE Consulting Unavailable HOY ., DR MEZA Attending [...] Medication Allergies] Propensity to adverse reactions (disorder) [facility] Repository Medications Current Medications Medication Drug [...] myocardial infarction; 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] Onset: [...] Onset: 11-30-2022 Chronic Other aftercare (2 sources) 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; 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: [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] Onset: 03-08-2018 Episodic Other aftercare (1 source) Other [facility] (current) drug therapy; 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: [OTH RESIDENTIAL CURRENT DRUG THERAPY] Onset: 12-16-2022 Episodic Other aftercare (1 source) 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; 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] Onset: 12-16-2022 Episodic Other aftercare (1 source) 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; 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: [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] Onset: 11-30-2022 Episodic [...] UNSPECIFIED] Onset: 12-16-2022 Chronic Unclassified (1 source) [facility] (current) use of oral hypoglycemic drugs; 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: [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) USE OF ORAL HYPOGLYCEMIC DRUGS] Onset: [...] Range Facility Office Visiton 07-14-2023 Follow-up visit [id number] Nohelia Bauer Lauren 1940 M Date Provider Department Center 07/14/2023 OREN PEDRO WKASI Borja Family History Problem Relation Age of Onset Coronary artery disease Mother Family Status - Relation Status Age at Mother Level of Service:[address]402 [place] OFFICE/OUTPATIENT ESTABLISHED LOW MDM 20-29 MIN Normal [facility] Office Visiton 03-13-2023 Follow-up visit [id number] Nohelia Bauer Lauren 1940 M Date Provider Department Center 03/13/2023 LEATHA GONZALEZ KWASI Valdovinos [facility] Family History Problem Relation Age of Onset Coronary artery disease Mother Family Status - Relation Status Age at Mother Level of Service:93589 [place] OFFICE/OUTPATIENT ESTABLISHED MOD MDM 30-39 MIN Normal [facility] PSA, FREE AND TOTAL RATIOon 11-24-2022 % Free PSA 33.9 % Normal [facility] Comment on above: Result Comment: The table [...] of men. Performed By: #### P SAFREE ####[facility] [address]bteaxzyyc[address] [place], [place] [address]XyBebo Diaz Prostate specific Ag [Mass/Vol] 6.2 ng/mL Critically high 0.0-4.0 [facility] Comment on above: Result Comment: Aye ECLIA methodology. .According to the [place] [employer], Serum PSA shoulddecrease and remain [...] malignant disease. Performed By: #### P SAFREE ####[facility] [address]kpvtlswrd[address] [place] [address]Dr. Yuki Diaz PSA, Free 2.10 ng/mL Normal N/A [facility] Comment on above: Result Comment: Aye ECLIA methodology. Performed By: #### P SAFREE ####[facility] Qytekuaplm30[address] [place] [address]Dr. Yuki Diaz CBC AUTO DIFFon 11-23-2022 BASO # 0.0 103/ul Normal 0.0-0.1 [facility] Comment on above: Performed By: #### CBC ####[facility] Adqkjygrki[address] [place], [place] [address]Dr. Yuki Diaz Basophils/100 WBC (Bld) 0.3 % Normal 0.2-2.0 [facility] Comment on above: Performed By: #### CBC ####[facility] J[address]wfgbskeg[address] [place], [place] [address]Dr. Yuki Diaz EO # 0.3 103/ul Normal 0.0-0.7 [facility] Comment on above: Performed By: #### CBC ####[facility] Erxcfulkdn[address] [place], [place] [address]Dr. Yuki Diaz Eosinophils/100 WBC (Bld) 4.7 % Normal 0.9-7.0 [facility] Comment on above: Performed By: #### CBC ####[facility] Fkgbziurur[address] [place], [place] [address]Dr. Yuki Diaz Erythrocyte distribution width (RBC) [Ratio] 15.6 % Critically high 11.0-15.0 [facility] Comment on above: Performed By: #### CBC ####[facility] Eqhshjyxet[address] [place], [place] [address]Dr. Ykui Diaz Hematocrit (Bld) [Volume fraction] 33.5 % Critically low 42.0-54.0 [facility] Comment on above: Performed By: #### CBC ####[facility] ital Nwkhevstuh4[address] [place] [address]Dr. Yuki Diaz Hemoglobin (Bld) [Mass/Vol] 10.0 g/dL Critically low 14.0-18.0 [facility] Comment on above: Performed By: #### CBC ####[facility] ital Caoalpznqe0296 [place] [address]Dr. Yuki Diaz IG # 0.03 10e3/ul Normal 0.00-0.03 [facility] Comment on above: Performed By: #### CBC ####[facility] Arubxnqglx1808 [place] [address]Dr. Yuki Diaz IG % 0.5 % Normal 0.0-0.5 [facility] Comment on above: Performed By: #### CBC ####[facility] Zfgrfacjfa9042 [place] [address]Dr. Monsealyssa Diaz LYMPH # 1.5 103/ul Normal 1.2-3.8 [facility] Comment on above: Performed By: #### CBC ####[facility] ital Lxwohjnpwm9810 [place] [address]Dr. Yuki Diaz Lymphocytes/100 WBC (Bld) 22.6 % Normal 20.5-60.0 [facility] Comment on above: Performed By: #### CBC ####[facility] Ztigkyhlgf8847 [place] [address]Dr. Monsealyssa Diaz MANUAL DIFF REQ NO Normal [facility] Comment on above: Performed By: #### CBC ####[facility] Ptiofxjeql9[address] [place] [address]Dr. Yuki Diaz MCH (RBC) [Entitic mass] 27.9 pg Normal 25.9-34.0 [facility] Comment on above: Performed By: #### CBC ####[facility] Ulcmqrjvpq1650 [place] [address]Dr. Yuki Diaz MCHC (RBC) [Mass/Vol] 29.9 g/dL Normal 29.9-35.2 [facility] Comment on above: Performed By: #### CBC ####[facility] Ujvrumetnq9246 [place] [address]Dr. Yuki Diaz MCV (RBC) [Entitic vol] 93.6 fL Normal 80.0-94.0 [facility] Comment on above: Performed By: #### CBC ####[facility] Exxkckfalx59[address] [place] [address]Dr. Yuki Diaz MONO # 0.8 103/ul Normal 0.3-0.8 [facility] Comment on above: Performed By: #### CBC ####[facility] Qvsurwyrnh1516 [place] [address]Dr. Yuki Diaz Monocytes/100 WBC (Bld) 12.6 % Critically high 1.7-12.0 [facility] Comment on above: Performed By: #### CBC ####[facility] Gqgwaiptwg36[address] [place] [address]Dr. Yuki Diaz NEUT # 3.9 103/ul Normal 1.4-6.5 [facility] Comment on above: Performed By: #### CBC ####[facility] Xiwjfuipcq4802 [place] [address]Dr. Yuki Diaz Neutrophils/100 WBC (Bld) 59.3 % Normal 43.0-75.0 [facility] Comment on above: Performed By: #### CBC ####[facility] Kqmekylhns7662 [place] [address]Dr. Yuki Diaz Platelet mean volume (Bld) [Entitic vol] 10.1 fL Normal 9.5-13.5 [facility] Comment on above: Performed By: #### CBC ####[facility] Iqlkoqkqxf6256 [place] [address]Dr. Yuki Diaz PLT 231 103/ul Normal 150-450 [facility] Comment on above: Performed By: #### CBC ####[facility] Bqghnafzow55[address] [place] [address]Dr. Yuki Diaz RBC 3.58 106/ul Critically low 4.70-6.10 [facility] Comment on above: Performed By: #### CBC ####[facility] Sxkdjaauwc8136 [place] [address]Dr. Yuki Diaz WBC 6.6 103/ul Normal 4.0-11.0 [facility] Comment on above: Performed By: #### CBC ####[facility] Yflbdecomz33[address] [place] [address]Dr. Yuki Diaz FREE T3on 11-23-2022 FREE T3 2.20 pg/mlL Normal 2.18-3.98 [facility] Comment on above: Performed By: #### CMP, FT3, TSH, T4, LI PID ####[facility] Cxpeavsdre45[address] [place] [address]Dr. Yuki Diaz GLYCOHEMOGLOBIN A1Con 2022 ADA RECOMMENDATION SEE BELOW Normal [facility] Comment on above: Result Comment: ADA RECOMMENDED LIMIT 4. 0 - 6.0 ADA THERAPEUTIC TARGET < 7.0 ACTION SUGGESTED > 7.0 Performed By: #### A 1C ####[facility] Jfvpusrouw[address] [place], [place] [address]Dr. Yuki Diaz Glucose [Mass/Vol] 171 mg/dL Normal [facility] Comment on above: Performed By: #### A1C ####[facility] Gfiameyzuy40[address] [place] [address]Dr. Yuki Diaz HbA1c (Bld) [Mass fraction] 7.6 % Critically high 4.5-6.2 [facility] Comment on above: Performed By: #### A1C ####[facility] Xdcdfxwiqq9703 [place] [address]Dr. Yuki Diaz LIPID PROFILEon 11-23-2022 CHOL-HDL RATIO NORM SEE BELOW Normal [facility] Comment on above: Result Comment: 3.3 - 4.4 LOW RISK 4.4 - 7.1 AVERAGE RISK 7.1 - 11.0 MODERATE RISK >11.0 HIGH RISK Performed By: #### C MP, FT3, TSH, T4, LIPID ####[facility] Xqoulrnrrj[address] [place] [address]Dr. Yuki Diaz Cholesterol [Mass/Vol] 91 mg/dL Normal <=200 [facility] Comment on above: Performed By: #### CMP, FT3, TSH, T4, LI PID ####[facility] Umtdomlsai[address] [place] [address]Dr. Yuki Diaz Cholesterol in HDL [Mass/Vol] 51 mg/dL Normal 40-60 [facility] Comment on above: Performed By: #### CMP, FT3, TSH, T4, LI PID ####[facility] Qrizhrbutr7964 [place] [address]Dr. Yuki Diaz Cholesterol in LDL [Mass/Vol] 27.2 mg/dL Normal [facility] Comment on above: Performed By: #### CMP, FT3, TSH, T4, LI PID ####[facility] Uhxlydbner[address] [place], [place] [address]Dr. Yuki Diaz Cholesterol.tota l/Cholesterol in HDL [Mass ratio] 1.8 {ratio} Normal [facility] Comment on above: Performed By: #### CMP, FT3, TSH, T4, LI PID ####[facility] Afnthqlaag[address] [place], [place] [address]Dr. Yuki Diaz HDL NORMAL > or = 60 mg/dl - LO W CARDIOVASCULAR RISK <40 mg/dl - HIGH CARDIOVASCULAR RISK Normal [facility] Comment on above: Performed By: #### CMP, FT3, TSH, T4, LI PID ####[facility] Ttrmfgaobs8767 [place] [address]Dr. Yuki Diaz LDL CALC NORMAL SEE BELOW Normal [facility] Comment on above: Result Comment: <100 mg/dl OPTIMAL 100 - 129 mg/dl NEAR OR ABOVE OPTIMAL 130 - 159 mg/dl BORDERLINE HIGH 160 - 189 mg/dl HIGH >190 mg/dl VERY HIGH Performed By: #### C MP, FT3, TSH, T4, LIPID ####[facility] Urozujijux[address] [place], [place] [address]Dr. Yuki Diaz Triglyceride [Mass/Vol] 64 mg/dL Normal <=150 [facility] Comment on above: Performed By: #### CMP, FT3, TSH, T4, LI PID ####[facility] Ioqcnpshmn24[address] [place], [place] [address]Dr. Yuki Diaz VLDL CALC 12.8 mg/dL Normal [facility] Comment on above: Performed By: #### CMP, FT3, TSH, T4, LI PID ####[facility] Okxqaoqbqf[address] [place], [place] [address]Dr. Yuki Diaz PROF 14(COMP METB)on 023 Albumin [Mass/Vol] 2.9 g/dL Critically low 3.4-5.0 [facility] Comment on above: Performed By: #### CMP, FT3, TSH, T4, LI PID ####[facility] Ivwbbajuax[address] [place], [place] [address]Dr. Yuki Diaz Albumin/Globulin [Mass ratio] 0.7 {ratio} Normal [facility] Comment on above: Performed By: #### CMP, FT3, TSH, T4, LI PID ####[facility] Bphyeyqtpv[address] [place], [place] [address]Dr. Yuki Diaz ALP [Catalytic activity/Vol] 95 U/L Normal 46-116 [facility] Comment on above: Performed By: #### CMP, FT3, TSH, T4, LI PID ####[facility] Rcrqnckmll[address] [place], [place] [address]Dr. Yuki Diaz ALT [Catalytic activity/Vol] 15 U/L Critically low 16-63 [facility] Comment on above: Performed By: #### CMP, FT3, TSH, T4, LI PID ####[facility] Acsvazmvjt[address] [place], [place] [address]Dr. Yuki Diaz Anion gap [Moles/Vol] 13.2 mmol/L Normal [facility] Comment on above: Performed By: #### CMP, FT3, TSH, T4, LI PID ####[facility] Ebkzvviqbv[address] [place], [place] [address]Dr. Yuki Diaz AST [Catalytic activity/Vol] 10 U/L Critically low 15-37 [facility] Comment on above: Performed By: #### CMP, FT3, TSH, T4, LI PID ####[facility] Elhkdggdvj[address] [place], [place] [address]Dr. Yuki Diaz Bilirubin [Mass/Vol] 0.7 mg/dL Normal 0.2-1.0 [facility] Comment on above: Performed By: #### CMP, FT3, TSH, T4, LI PID ####[facility] Znfkzscepy4[address] [place], [place] [address]Dr. Yuki Diaz Calcium [Mass/Vol] 8.9 mg/dL Normal 8.5-10.1 [facility] Comment on above: Performed By: #### CMP, FT3, TSH, T4, LI PID ####[facility] Gxfeanarvy[address] [place], [place] [address]Dr. Yuki Diaz Chloride [Moles/Vol] 105 mmol/L Normal 98-107 [facility] Comment on above: Performed By: #### CMP, FT3, TSH, T4, LI PID ####[facility] Jrwwsiksyd[address] [place], [place] [address]Dr. Yuki Diaz CO2 [Moles/Vol] 30.0 mmol/L Normal 21.0-32.0 [facility] Comment on above: Performed By: #### CMP, FT3, TSH, T4, LI PID ####[facility] Jqiitcsbro[address] [place], [place] [address]Dr. Yuki Diaz Creatinine [Mass/Vol] 2.36 mg/dL Critically high 0.70-1.30 [facility] Comment on above: Performed By: #### CMP, FT3, TSH, T4, LI PID ####[facility] Bthchdamxd[address] [place], [place] [address]Dr. Yuki Diaz EGFR-AF EG[place]IAN 32 mL/min/1.73m2 Critically low >=60 [facility] Comment on above: Performed By: #### CMP, FT3, TSH, T4, LI PID ####[facility] Veyinhzetl[address] [place], [place] [address]Dr. Yuki Diaz EGFR-NON AF EGYPTIAN 27 mL/min/1.73m2 Critically low >=60 [facility] Comment on above: Performed By: #### CMP, FT3, TSH, T4, LI PID ####[facility] Zsczwhzccg[address] [place], [place] [address]Dr. Yuki Diaz Globulin (S) [Mass/Vol] 4.2 g/dL Normal [facility] Comment on above: Performed By: #### CMP, FT3, TSH, T4, LI PID ####[facility] Eprtdaouuu364[address] [place] [address]Dr. Yuki Diaz Glucose [Mass/Vol] 96 mg/dL Normal 74-106 [facility] Comment on above: Performed By: #### CMP, FT3, TSH, T4, LI PID ####[facility] Tgxiuzeitc[address] [place], [place] [address]Dr. Yuki Diaz Potassium [Moles/Vol] 4.2 mmol/L Normal 3.5-5.1 [facility] Comment on above: Performed By: #### CMP, FT3, TSH, T4, LI PID ####[facility] Pcoeabolty[address] [place], [place] [address]Dr. Yuki Diaz Protein [Mass/Vol] 7.1 g/dL Normal 6.4-8.2 [facility] Comment on above: Performed By: #### CMP, FT3, TSH, T4, LI PID ####[facility] Prlnssgrin[address] [place], [place] [address]Dr. Yuki Diaz Sodium [Moles/Vol] 144 mmol/L Normal 136-145 [facility] Comment on above: Performed By: #### CMP, FT3, TSH, T4, LI PID ####[facility] Abxaweqqub[address] [place], [place] [address]Dr. Yuki Diaz Urea nitrogen [Mass/Vol] 28.0 mg/dL Critically high 7.0-18.0 [facility] Comment on above: Performed By: #### CMP, FT3, TSH, T4, LI PID ####[facility] Fdqeshkalr[address] [place], [place] [address]Dr. Yuki Diaz Urea nitrogen/Creatin ine [Mass ratio] 11.9 mg/mg Normal [facility] Comment on above: Performed By: #### CMP, FT3, TSH, T4, LI PID ####[facility] Kkqujayfni[address] [place], [place] [address]Dr. Yuki Diaz T4on 11-23-2022 T4 [Mass/Vol] 7.70 ug/dL Normal 4.50-12.10 [facility] Comment on above: Performed By: #### CMP, FT3, TSH, T4, LI PID ####[facility] Tposnqjxyl5399 [place] [address]Dr. Yuki Diaz TSHon 11-23-2022 TSH 2.577 uIU/mL Normal 0.358-3.74 0 [facility] Comment on above: Performed By: #### CMP, FT3, TSH, T4, LI PID ####[facility] Btbgdrihhh[address] [place], [place] [address]Dr. Yuki Diaz VITAMIN D 25 OHon 11-23-2022 VIT D 25-OH 35.8 ng/mL Normal [facility] Comment on above: Performed By: #### VITAD, PSASC ####[facility] Fdeojcfope[address] [place], [place] [address]Dr. Yuki Diaz VIT D RANGES SEE BELOW Normal [facility] Comment on above: Result Comment: <20 ng/mL Vit D deficien t 20 - <30 ng/mL Vit D insufficient 30 - 100 ng/mL Vit D sufficient >100 ng/mL Potential Toxicity Performed By: #### V ITAD, PSASC ####[facility] Avbagjcsev[address] [place], [place] [address]Dr. Yuki Diaz BNPon 10-27-2022 Natriuretic peptide B (Bld) [Mass/Vol] 6821.0 pg/mL Critically high <=1,800.0 [facility] Comment on above: Performed By: #### CMP, BNP ####[facility] Cuytvvudiv[address] [place], [place] [address]Dr. Yuki Diaz CBC W MANUAL DIFFon 10-28-19 23 ACANTHOCYTES 1+ Normal [facility] Comment on above: Performed By: #### CBCMAN ####[facility] Hitnzqielr[address] [place], [place] [address]Dr. Yuki Diaz ATYPICAL LYMPH # Normal [facility] Comment on above: Performed By: #### CBCMAN ####[facility] ostal Inijpvcsrc[address] [place], [place] [address]Dr. Yuki Diaz ATYPICAL LYMPH % Normal [facility] Comment on above: Performed By: #### CBCMAN ####[facility] ospital Oozxejdcsa16[address] [place] [address]Dr. Yuki Diaz BAND # 0.0 103/ul Normal 0.0-0.3 [facility] Comment on above: Performed By: #### CBCMAN ####[facility] Ylpvsglzir7432 [place] [address]Dr. Yialyssa Diaz BAND % 0 % Normal 0-5 [facility] Comment on above: Performed By: #### CBCMAN ####[facility] Zwwtuasqap9357 [place] [address]Dr. Yuki Diaz BASOM # 0.00 103/ul Normal 0.00-0.10 [facility] Comment on above: Performed By: #### CBCMAN ####[facility] o[facility]ital Iqhxslejgp9190 [place] [address]Dr. Yuki Diaz BASOM % 0.0 % Critically low 0.2-2.0 [facility] Comment on above: Performed By: #### CBCMAN ####[facility]ital Oaptrbvioy3444 [place] [address]Dr. Yuki Diaz BLAST # Normal [facility] Comment on above: Performed By: #### CBCMAN ####[facility] Zznygreods1557 [place] [address]Dr. Yuki Diaz BLAST % Normal [facility] Comment on above: Performed By: #### CBCMAN ####[facility] Zbqvnxqejc0826 [place] [address]Dr. Yuki Diaz CORRECTED WBC Normal 4.0-11.0 [facility] Comment on above: Performed By: #### CBCMAN ####[facility] Glrumuzktq13[address] [place] [address]Dr. Yuki Diaz EOS # 0.00 103/ul Normal 0.00-0.70 [facility] Comment on above: Performed By: #### CBCMAN ####[facility]ital Wwhbwsktse[address]99 [place], [place] [address]Ji. Yuki Diaz EOS% 0.0 % Critically low 0.9-7.0 [facility] Comment on above: Performed By: #### CBCCHANTE ####[facility] o[facility]ital Jexjwhsexp9315 [place], [place] [address]Es. Yuki Diaz HCT 27.5 % Critically low 42.0-54.0 [facility] Comment on above: Performed By: #### CBCCHANTE ####[facility]ital Ibxngheuop5419 [place], [place] [address]Bi. Yuki Diaz HGB 8.7 g/dl Critically low 14.0-18.0 [facility] Comment on above: Performed By: #### CBCCHANTE ####[facility] o[facility]ital Uckyqeizmw72[address] [place] [address]Dr. Yuki Diaz LYMPHM # 0.81 103/ul Critically low 1.20-3.80 [facility] Comment on above: Performed By: #### CBCCHANTE ####[facility] Iqqgnjcfgj0377 [place], [place] [address]Wh. Yuki Diaz LYMPHM% 8.0 % Critically low 20.5-60.0 [facility] Comment on above: Performed By: #### CBCCHANTE ####[facility] Hkpdfpxsnl0554 [place] [address]Dr. Yuki Diaz MCH 28.2 pg Normal 25.9-34.0 [facility] Comment on above: Performed By: #### CBCCHANTE ####[facility] Ltyrwmskpd7273 [place], [place] [address]Hc. Yuki Diaz MCHC 31.6 g/dl Normal 29.9-35.2 [facility] Comment on above: Performed By: #### CBCCHANTE ####[facility] Ljwguxldwu8242 [place], [place] [address]Ku. Yuki Diaz MCV 89.0 fL Normal 80.0-94.0 [facility] Comment on above: Performed By: #### CBCCHANTE ####[facility] Yuqxkrexxw27[address] [place] [id number]. Yuki Diaz METAMYELOCYTE # Normal [facility] Comment on above: Performed By: #### CBCMAN ####[facility] Hcvnbzrlmd5410 [place] [id number]. Yuki Diaz METAMYELOCYTE % Normal [facility] Comment on above: Performed By: #### CBCCHANTE ####[facility] o[facility] Pfwuctwqkf3342 [place] [address]Dr. Yuki Diaz MONOM# 0.40 103/ul Normal 0.30-0.80 [facility] Comment on above: Performed By: #### CBCCHANTE ####[facility] Ajxfjjxcqe6093 [place] [address]Dr. Yuki Diaz MONOM% 4.0 % Normal 1.7-12.0 [facility] Comment on above: Performed By: #### CBCCHANTE ####[facility] Tnnprwtsps5664 [place] [address]Dr. Yuki Diaz MPV 10.4 fL Normal 9.5-13.5 [facility] Comment on above: Performed By: #### CBCCHANTE ####[facility] Fjunfpkved6234 [place] [address]Dr. Yuki Diaz MYELOCYTE # Normal [facility] Comment on above: Performed By: #### CBCCHANTE ####[facility] Kytxhnmmnf4838 [place] [address]Dr. Yuki Diaz MYELOCYTE % Normal [facility] Comment on above: Performed By: #### CBCCHANTE ####[facility] Lqscdxloxx1948 [place] [address]Dr. Yuki Diaz NRBC Normal [facility] Comment on above: Performed By: #### CBCMAN ####[facility] Jazqgkeney8604 [place] [address]Dr. Yuki Diaz PLT 237 103/ul Normal 150-450 [facility] Comment on above: Performed By: #### CBCMAN ####[facility] Pokkmyyjus3137 [place], [place] [address]Zo. Yuki Diaz RBC 3.09 106/ul Critically low 4.70-6.10 [facility] Comment on above: Performed By: #### CBCMAN ####[facility] Imnkusynqj2049 [place] [id number]. Yuki Diaz RDW 14.7 % Normal 11.0-15.0 [facility] Comment on above: Performed By: #### CBCMAN ####[facility] Rsnwqxyayw1480 [place] [phone]. Yuki Diaz SEG # 8.89 103/ul Critically high 1.40-6.50 [facility] Comment on above: Performed By: #### CBCMAN ####[facility] Epgblyonmd5222 [place] [id number]. Yuki Diaz SEG % 88.0 % Critically high 43.0-75.0 [facility] Comment on above: Performed By: #### CBCMAN ####[facility] Sdbjefjxqn2699 [place] [id number]. Yuki Diaz WBC 10.1 103/ul Normal 4.0-11.0 [facility] Comment on above: Performed By: #### CBCMAN ####[facility] Xbkvvayrnc9196 [place] [phone]. Yuki Diaz POINT OF CARE GLUCOSEon 10-06 Glucose [Mass/Vol] 225 mg/dL Critically high 74-106 [facility] Comment on above: Performed By: #### POCGLUC ####[facility] Vljhbbexjr3557 [place] [phone]. Yuki Diaz Glucose [Mass/Vol] 214 mg/dL Critically high 74-106 [facility] Comment on above: Performed By: #### POCGLUC ####[facility] Cvoxinoqsb6918 [place] [phone]. Ykui Diaz PRBC LEUKOREDUCEDon 10-28-19 23 PRBC LEUKOREDUCED Normal [facility] Comment on above: Performed By: #### PRBC ####[facility] Gmqlvnywxk2967 [place] [address]Dr. Yuki Diaz PROF 14(COMP METB)on 023 Albumin [Mass/Vol] 1.8 g/dL Critically low 3.4-5.0 [facility] Comment on above: Performed By: #### CMP, BNP ####[facility] Aeqeryrhrf[address] [place] [address]Dr. Yuki Diaz Albumin/Globulin [Mass ratio] 0.5 {ratio} Normal [facility] Comment on above: Performed By: #### CMP, BNP ####[facility] [address]nl[address]wflhp[address] [place] [address]Dr. Yuki Diaz ALP [Catalytic activity/Vol] 66 U/L Normal 46-116 [facility] Comment on above: Performed By: #### CMP, BNP ####[facility] Ciipkursba[address] [place], [place] [address]Dr. Yuki Diaz ALT [Catalytic activity/Vol] 13 U/L Critically low 16-63 [facility] Comment on above: Performed By: #### CMP, BNP ####[facility] Zzavknspuw[address] [place], [place] [address]Dr. Yuki Diaz Anion gap [Moles/Vol] 11.8 mmol/L Normal [facility] Comment on above: Performed By: #### CMP, BNP ####[facility] Fvbnntvdky2[address] [place], [place] [address]Dr. Yuki Diaz AST [Catalytic activity/Vol] 14 U/L Critically low 15-37 [facility] Comment on above: Performed By: #### CMP, BNP ####[facility] Maqjbcgssf[address] [place], [place] [address]Dr. Yuki Diaz Bilirubin [Mass/Vol] 0.4 mg/dL Normal 0.2-1.0 [facility] Comment on above: Performed By: #### CMP, BNP ####[facility] Qvpxgauyji[address] [place], [place] [address]Dr. Yuki Diaz Calcium [Mass/Vol] 8.2 mg/dL Critically low 8.5-10.1 [facility] Comment on above: Performed By: #### CMP, BNP ####[facility] S[address]zduscmt[address] [place] [address]Dr. Yuki Diaz Chloride [Moles/Vol] 103 mmol/L Normal 98-107 [facility] Comment on above: Performed By: #### CMP, BNP ####[facility] Xcktldgcwp124[address] [place], [place] [address]Dr. Yuki Diaz CO2 [Moles/Vol] 26.7 mmol/L Normal 21.0-32.0 [facility] Comment on above: Performed By: #### CMP, BNP ####[facility] Rfdmaostkn11[address] [place], [place] [address]Dr. Yuki Diaz Creatinine [Mass/Vol] 2.62 mg/dL Critically high 0.70-1.30 [facility] Comment on above: Performed By: #### CMP, BNP ####[facility] Vsuhdqdeob[address] [place], [place] [address]Dr. Yuki Joe EGFR-AF EGYPTIAN 29 mL/min/1.73m2 Critically low >=60 [facility] Comment on above: Performed By: #### CMP, BNP ####[facility] Baloefbvlq[address] [place], [place] [address]Dr. Yuki Diaz EGFR-NON AF EGYPTIAN 24 mL/min/1.73m2 Critically low >=60 [facility] Comment on above: Performed By: #### CMP, BNP ####[facility] Weiaevmrly[address] [place], [place] [address]Dr. Yuki Diaz Globulin (S) [Mass/Vol] 3.9 g/dL Normal [facility] Comment on above: Performed By: #### CMP, BNP ####[facility] Gnwupxkznz[address] [place], [place] [address]Dr. Yuki Joe Glucose [Mass/Vol] 209 mg/dL Critically high 74-106 [facility] Comment on above: Performed By: #### CMP, BNP ####[facility] Tlxwdtottj[address] [place], [place] [address]Dr. Yuki Diaz Potassium [Moles/Vol] 4.5 mmol/L Normal 3.5-5.1 [facility] Comment on above: Performed By: #### CMP, BNP ####[facility] Gimvusqgiq12[address] [place] [address]Dr. Yuki Diaz Protein [Mass/Vol] 5.7 g/dL Critically low 6.4-8.2 [facility] Comment on above: Performed By: #### CMP, BNP ####[facility] Jmnqyntdkb200[address] [place], [place] [address]Dr. Yuki Diaz Sodium [Moles/Vol] 137 mmol/L Normal 136-145 [facility] Comment on above: Performed By: #### CMP, BNP ####[facility] Tfxxvlcidq09[address] [place], [place] [address]Dr. Yuki Diaz Urea nitrogen [Mass/Vol] 67.0 mg/dL Critically high 7.0-18.0 [facility] Comment on above: Performed By: #### CMP, BNP ####[facility] Fnqazyhcjh[address] [place], [place] [address]Dr. Yuki Diaz Urea nitrogen/Creatin ine [Mass ratio] 25.6 mg/mg Normal [facility] Comment on above: Performed By: #### CMP, BNP ####[facility] Srqqvcbjtq[address] [place], [place] [address]Dr. Yuki Diaz BNPon 10-26-2022 Natriuretic peptide B (Bld) [Mass/Vol] 3539.0 pg/mL Critically high <=1,800.0 [facility] Comment on above: Performed By: #### CMP, BNP ####[facility] Oxvoyglkce[address] [place], [place] [address]Dr. Yuki Diaz CBC W MANUAL DIFFon 10-27-19 23 ATYPICAL LYMPH # Normal [facility] Comment on above: Performed By: #### CBCMAN ####[facility] Budkncdwls[address] [place], [place] [address]Dr. Yuki Diaz ATYPICAL LYMPH % Normal [facility] Comment on above: Performed By: #### CBCMAN ####[facility]ital Wqbyyrmurk[address] [place], [place] [address]Dr. Yilan Diaz BAND # 0.0 103/ul Normal 0.0-0.3 [facility] Comment on above: Performed By: #### CBCMAN ####[facility] Zkkikmstwu10[address] [place] [address]Dr. Yuki Diaz BAND % 0 % Normal 0-5 [facility] Comment on above: Performed By: #### CBCMAN ####[facility] o[facility] Hspojnbbjk0035 [place] [address]Dr. Yuki Diaz BASOM # 0.00 103/ul Normal 0.00-0.10 [facility] Comment on above: Performed By: #### CBCMAN ####[facility] o[facility]ital Ochzfejmgj3791 [place] [address]Dr. Yuki Diaz BASOM % 0.0 % Critically low 0.2-2.0 [facility] Comment on above: Performed By: #### CBCMAN ####[facility] o[facility] Oqkswzatni1427 [place] [address]Dr. Yuki Diaz BLAST # Normal [facility] Comment on above: Performed By: #### CBCMAN ####[facility] Jvxekccuex9395 [place] [address]Dr. Yuki Diaz BLAST % Normal [facility] Comment on above: Performed By: #### CBCMAN ####[facility] Djsnecrsam8678 [place] [address]Dr. Yuki Diaz CORRECTED WBC Normal 4.0-11.0 [facility] Comment on above: Performed By: #### CBCMAN ####[facility] o[facility] Avlnbkrwbu4922 [place] [address]Dr. Yuki Diaz EOS # 0.00 103/ul Normal 0.00-0.70 [facility] Comment on above: Performed By: #### CBCMAN ####[facility] o[facility] Afvqhkjclt2200 [place] [address]Dr. Yuki Diaz EOS% 0.0 % Critically low 0.9-7.0 [facility] Comment on above: Performed By: #### CBCMAN ####[facility] o[facility] Mcxvmrxsva9100 [place] [phone]. Yuki Diaz HCT 28.9 % Critically low 42.0-54.0 [facility] Comment on above: Performed By: #### CBCCHANTE ####[facility] o[facility] Ktjqjfeltw9684 [place] [phone]. Yuki Diaz HGB 9.1 g/dl Critically low 14.0-18.0 [facility] Comment on above: Performed By: #### CBCCHANTE ####[facility] o[facility]ital Fbdygsyrcv6215 [place] [phone]. Yuki Diaz LYMPHM # 0.37 103/ul Critically low 1.20-3.80 [facility] Comment on above: Performed By: #### CBCCHANTE ####[facility] o[facility] Uhvlccbevb9002 [place] [phone]. Yuki Diza LYMPHM% 3.0 % Critically low 20.5-60.0 [facility] Comment on above: Performed By: #### CBCCHANTE ####[facility] o[facility] Obvvadfvfq6181 [place] [phone]. Yuki Diaz MCH 28.4 pg Normal 25.9-34.0 [facility] Comment on above: Performed By: #### CBCCHANTE ####[facility] o[facility] Kxptzhvffg4491 [place] [phone]. Yuki Diaz MCHC 31.5 g/dl Normal 29.9-35.2 [facility] Comment on above: Performed By: #### CBCCHANTE ####[facility] o[facility] Oxxeaturri6027 [place] [phone]. Yuki Diaz MCV 90.3 fL Normal 80.0-94.0 [facility] Comment on above: Performed By: #### CBCCHANTE ####[facility] o[facility] Agqeotoliw1625 [place] [phone]. Yuki Diaz METAMYELOCYTE # Normal [facility] Comment on above: Performed By: #### CBCCHANTE ####[facility] o[facility] Bzyrmkahir8615 [place] [address]Dr. Yuki Diaz METAMYELOCYTE % Normal [facility] Comment on above: Performed By: #### CBCCHANTE ####[facility] o[facility] Zjjoukvooe9647 [place] [address]Dr. Yuki Diaz MONOM# 0.24 103/ul Critically low 0.30-0.80 [facility] Comment on above: Performed By: #### CBCCHANTE ####[facility] Moloojypod7605 [place] [address]Dr. Yuki Diaz MONOM% 2.0 % Normal 1.7-12.0 [facility] Comment on above: Performed By: #### CBCCHANTE ####[facility] o[facility] Gcpfjrtvtr8605 [place] [address]Dr. Yuki Diaz MPV 10.3 fL Normal 9.5-13.5 [facility] Comment on above: Performed By: #### CBCCHANTE ####[facility] o[facility] Tlhxmelvqw4602 [place] [address]Dr. Yuki Diaz MYELOCYTE # Normal [facility] Comment on above: Performed By: #### CBCCHANTE ####[facility] o[facility] Hwwqzrcgay0890 [place] [address]Dr. Yuki Diaz MYELOCYTE % Normal [facility] Comment on above: Performed By: #### CBCCHANTE ####[facility] Hjcmvtocse5066 [place] [address]Dr. Yuki Diaz NRBC Normal [facility] Comment on above: Performed By: #### CBCCHANTE ####[facility] Yqvbrvvcik5292 [place] [address]Dr. Yuki Diaz PLT 215 103/ul Normal 150-450 [facility] Comment on above: Performed By: #### CBCCHANTE ####[facility] Yhmbvnqoco9470 [place] [address]Dr. Yuki Diaz RBC 3.20 106/ul Critically low 4.70-6.10 [facility] Comment on above: Performed By: #### CBCCHANTE ####[facility] Vtvefdqyno7137 [place], [place] [address]Vb. Yuki Diaz RDW 14.7 % Normal 11.0-15.0 [facility] Comment on above: Performed By: #### CBCMAN ####[facility] Vmusfzxklt6551 [place], [place] [address]Og. Yuki Diaz SEG # 11.59 103/ul Critically high 1.40-6.50 [facility] Comment on above: Performed By: #### CBCMAN ####[facility] Jufjpspxhx6129 [place] [phone]. Yuki Diaz SEG % 95.0 % Critically high 43.0-75.0 [facility] Comment on above: Performed By: #### CBCMAN ####[facility] Kssykeuvnr8821 [place] [phone]. Yuki Diaz WBC 12.2 103/ul Critically high 4.0-11.0 [facility] Comment on above: Performed By: #### CBCMAN ####[facility] Kruqwbntml0194 [place] [phone]. Yuki Diaz POINT OF CARE GLUCOSEon 10-06 Glucose [Mass/Vol] 292 mg/dL Critically high 74-106 [facility] Comment on above: Performed By: #### POCGLUC ####[facility] Eivyxoerju7412 [place] [phone]. Yuki Diaz Glucose [Mass/Vol] 194 mg/dL Critically high 74-106 [facility] Comment on above: Performed By: #### POCGLUC ####[facility] Ghgwicihxv4745 [place] [phone]. Yuki Diaz Glucose [Mass/Vol] 280 mg/dL Critically high 74-106 [facility] Comment on above: Performed By: #### POCGLUC ####[facility] Vndvqiojzz3410 [place] [phone]. Yuki Diaz Glucose [Mass/Vol] 212 mg/dL Critically high 74-106 [facility] Comment on above: Performed By: #### POCGLUC ####[facility] Tcryoqcghi2577 [place] [address]Dr. Yuki Diaz Glucose [Mass/Vol] 148 mg/dL Critically high 74-106 [facility] Comment on above: Performed By: #### POCGLUC ####[facility] Wqrmiyjcoe[address] [place], [place] [address]Dr. Yuki Diaz PRBC LEUKOREDUCEDon 10-27-19 23 PRBC LEUKOREDUCED Normal [facility] Comment on above: Performed By: #### PRBC ####[facility] pital Shngdgbqup2879 [place] [address]Dr. Yuki Diaz PROF 14(COMP METB)on 023 Albumin [Mass/Vol] 2.0 g/dL Critically low 3.4-5.0 [facility] Comment on above: Performed By: #### CMP, BNP ####[facility] Enlrvrpfcr74[address] [place], [place] [address]Dr. Yuki Diaz Albumin/Globulin [Mass ratio] 0.5 {ratio} Normal [facility] Comment on above: Performed By: #### CMP, BNP ####[facility] Bpmswqhxzb[address] [place], [place] [address]Dr. Yuki Diaz ALP [Catalytic activity/Vol] 75 U/L Normal 46-116 [facility] Comment on above: Performed By: #### CMP, BNP ####[facility] Imeqkhubsl[address] [place], [place] [address]Dr. Yuki Diaz ALT [Catalytic activity/Vol] 10 U/L Critically low 16-63 [facility] Comment on above: Performed By: #### CMP, BNP ####[facility] Dihudghbpx5629[address] [place], [place] [address]Dr. Yuki Diaz Anion gap [Moles/Vol] 13.9 mmol/L Normal [facility] Comment on above: Performed By: #### CMP, BNP ####[facility] Brkzmrljgp4245[address] [place], [place] [address]Dr. Yuki Diaz AST [Catalytic activity/Vol] 13 U/L Critically low 15-37 [facility] Comment on above: Performed By: #### CMP, BNP ####[facility] Ecfuxlzkej[address] [place], [place] [address]Dr. Yuki Diaz Bilirubin [Mass/Vol] 0.7 mg/dL Normal 0.2-1.0 [facility] Comment on above: Performed By: #### CMP, BNP ####[facility] Ptixiufucx264[address] [place], [place] [address]Dr. Yuki Diaz Calcium [Mass/Vol] 8.5 mg/dL Normal 8.5-10.1 [facility] Comment on above: Performed By: #### CMP, BNP ####[facility] Gogpkgirva9548[address] [place], [place] [address]Dr. Yuki Diaz Chloride [Moles/Vol] 103 mmol/L Normal 98-107 [facility] Comment on above: Performed By: #### CMP, BNP ####[facility] Chekkyhmxp[address] [place], [place] [address]Dr. Yuki Diaz CO2 [Moles/Vol] 25.8 mmol/L Normal 21.0-32.0 [facility] Comment on above: Performed By: #### CMP, BNP ####[facility] Qmmmofacug95[address] [place], [place] [address]Dr. Yuki Diaz Creatinine [Mass/Vol] 2.87 mg/dL Critically high 0.70-1.30 [facility] Comment on above: Performed By: #### CMP, BNP ####[facility] Xglcthpvor3694[address] [place], [place] [address]Dr. Yuki Diaz EGFR-AF EGYPTIAN 26 mL/min/1.73m2 Critically low >=60 [facility] Comment on above: Performed By: #### CMP, BNP ####[facility] Nsttpzpqmv4528[address] [place], [place] [address]Dr. Yuki Diaz EGFR-NON AF EGYPTIAN 21 mL/min/1.73m2 Critically low >=60 [facility] Comment on above: Performed By: #### CMP, BNP ####[facility] Kzfrhwalar7[address] [place], [place] [address]Dr. Yuki Diaz Globulin (S) [Mass/Vol] 4.0 g/dL Normal [facility] Comment on above: Performed By: #### CMP, BNP ####[facility] Ajkcudbkvx8165 [place] [address]Dr. Yuki Diaz Glucose [Mass/Vol] 209 mg/dL Critically high 74-106 [facility] Comment on above: Performed By: #### CMP, BNP ####[facility] Arxfkhmcqc7134 [place] [address]Dr. Yuki Diaz Potassium [Moles/Vol] 4.7 mmol/L Normal 3.5-5.1 [facility] Comment on above: Performed By: #### CMP, BNP ####[facility] Mvmhkuxijc4375[address] [place], [place] [address]Dr. Yuki Diaz Protein [Mass/Vol] 6.0 g/dL Critically low 6.4-8.2 [facility] Comment on above: Performed By: #### CMP, BNP ####[facility] Vqvegootvv5749[address] [place], [place] [address]Dr. Yuki Diaz Sodium [Moles/Vol] 138 mmol/L Normal 136-145 [facility] Comment on above: Performed By: #### CMP, BNP ####[facility] Zqoaqlrheg6862[address] [place], [place] [address]Dr. Yuki Diaz Urea nitrogen [Mass/Vol] 58.0 mg/dL Critically high 7.0-18.0 [facility] Comment on above: Performed By: #### CMP, BNP ####[facility] Kmzewfmvja7907[address] [place], [place] [address]Dr. Yuki Diaz Urea nitrogen/Creatin ine [Mass ratio] 20.2 mg/mg Normal [facility] Comment on above: Performed By: #### CMP, BNP ####[facility] Epqzcpbzxf7235[address] [place], [place] [address]Dr. Yuki Diaz XR KNEE LT 4V or >on 023 XR KNEE LT 4V or > Normal [facility] CBC AUTO DIFFon 10-25-2022 BASO # 0.0 103/ul Normal 0.0-0.1 [facility] Comment on above: Performed By: #### CBC ####[facility] Fltcdtavkv9173 [place] [address]Dr. Yuki Diaz Basophils/100 WBC (Bld) 0.0 % Critically low 0.2-2.0 [facility] Comment on above: Performed By: #### CBC ####[facility] Ibehswekzp68[address] [place], [place] [address]Dr. Yuki Diaz EO # 0.0 103/ul Normal 0.0-0.7 [facility] Comment on above: Performed By: #### CBC ####[facility] Gwzaedlkag33[address] [place], [place] [address]Dr. Yuki Diaz Eosinophils/100 WBC (Bld) 0.0 % Critically low 0.9-7.0 [facility] Comment on above: Performed By: #### CBC ####[facility] Cehwxlwvcq6525[address] [place], [place] [address]Dr. Yuki Diaz Erythrocyte distribution width (RBC) [Ratio] 14.7 % Normal 11.0-15.0 [facility] Comment on above: Performed By: #### CBC ####[facility] Nbtbbkawhu[address] [place], [place] [address]Dr. Yuki Diaz Hematocrit (Bld) [Volume fraction] 30.9 % Critically low 42.0-54.0 [facility] Comment on above: Performed By: #### CBC ####[facility] Gqptsdhhdu68[address] [place], [place] [address]Dr. Yuki Diaz Hemoglobin (Bld) [Mass/Vol] 9.6 g/dL Critically low 14.0-18.0 [facility] Comment on above: Result Comment: pt. rcvd. blood Performed By: #### C BC ####[facility] Dgsygnfrgg[address] [place], [place] [address]Dr. Yuki Diaz IG # 0.06 10e3/ul Critically high 0.00-0.03 [facility] Comment on above: Performed By: #### CBC ####[facility] Tgnuwdrlit70[address] [place], [place] [address]Dr. Monsealyssa Diaz IG % 0.5 % Normal 0.0-0.5 [facility] Comment on above: Performed By: #### CBC ####[facility] ital Eypbokepln6190 [place] [address]Dr. Yuki Diaz LYMPH # 0.4 103/ul Critically low 1.2-3.8 [facility] Comment on above: Performed By: #### CBC ####[facility] Dwvuejxtmd1844 [place] [address]Dr. Yuki Diaz Lymphocytes/100 WBC (Bld) 3.5 % Critically low 20.5-60.0 [facility] Comment on above: Performed By: #### CBC ####[facility] Fskgqfkuyq3645 [place] [address]Dr. Yuki Diaz MANUAL DIFF REQ NO Normal [facility] Comment on above: Performed By: #### CBC ####[facility] Nqijkbkcam5052 [place] [address]Dr. Yuki Diaz MCH (RBC) [Entitic mass] 28.3 pg Normal 25.9-34.0 [facility] Comment on above: Performed By: #### CBC ####[facility] Tkcqcreipx1673 [place] [address]Dr. Yuki Diaz MCHC (RBC) [Mass/Vol] 31.1 g/dL Normal 29.9-35.2 [facility] Comment on above: Performed By: #### CBC ####[facility] Lptdljdhyq2628 [place] [address]Dr. Yuki Diaz MCV (RBC) [Entitic vol] 91.2 fL Normal 80.0-94.0 [facility] Comment on above: Performed By: #### CBC ####[facility] Doupgigjkj4418 [place] [address]Dr. Yuki Diaz MONO # 0.5 103/ul Normal 0.3-0.8 [facility] Comment on above: Performed By: #### CBC ####[facility] Kjyaaeybnr6881 [place] [address]Dr. Yuki Diaz Monocytes/100 WBC (Bld) 4.4 % Normal 1.7-12.0 [facility] Comment on above: Performed By: #### CBC ####[facility] Vyoutkhnzu3747 [place] [address]Dr. Yuki Diaz NEUT # 10.8 103/ul Critically high 1.4-6.5 [facility] Comment on above: Performed By: #### CBC ####[facility] Dwuhrjfmzm3637 [place] [address]Dr. Yuki Diaz Neutrophils/100 WBC (Bld) 91.6 % Critically high 43.0-75.0 [facility] Comment on above: Performed By: #### CBC ####[facility] Vlclolcnkl0701 [place] [address]Dr. Yuki Diaz Platelet mean volume (Bld) [Entitic vol] 10.1 fL Normal 9.5-13.5 [facility] Comment on above: Performed By: #### CBC ####[facility] Zvfopdcsbk0917 [place] [address]Dr. Yuki Diaz PLT 223 103/ul Normal 150-450 [facility] Comment on above: Performed By: #### CBC ####[facility] Dooemeluwi0423 [place] [address]Dr. Yuki Diaz RBC 3.39 106/ul Critically low 4.70-6.10 [facility] Comment on above: Performed By: #### CBC ####[facility] Oluavllgom5760 [place] [address]Dr. Yuki Diaz WBC 11.8 103/ul Critically high 4.0-11.0 [facility] Comment on above: Performed By: #### CBC ####[facility] Pkfexwqjnw6971 [place] [address]Dr. Yuki Diaz BASO # 0.0 103/ul Normal 0.0-0.1 [facility] Comment on above: Performed By: #### CBC ####[facility] Ikouvsqlno2558 [place] [address]Dr. Yuki Diaz Basophils/100 WBC (Bld) 0.1 % Critically low 0.2-2.0 [facility] Comment on above: Performed By: #### CBC ####[facility] Rvibzbnxyj3001 [place] [address]Dr. Yuki Diaz EO # 0.0 103/ul Normal 0.0-0.7 [facility] Comment on above: Performed By: #### CBC ####[facility] Ofibipoleh8291 [place] [address]Dr. Yuki Diaz Eosinophils/100 WBC (Bld) 0.2 % Critically low 0.9-7.0 [facility] Comment on above: Performed By: #### CBC ####[facility] Pxnczkwwvh3748 [place] [address]Dr. Yuki Diaz Erythrocyte distribution width (RBC) [Ratio] 15.1 % Critically high 11.0-15.0 [facility] Comment on above: Performed By: #### CBC ####[facility] Xahpofawss2120 [place] [address]Dr. Yuki Diaz Hematocrit (Bld) [Volume fraction] 23.7 % Critically low 42.0-54.0 [facility] Comment on above: Performed By: #### CBC ####[facility] Vbnygokofk0973 [place] [address]Dr. Yuki Diaz Hemoglobin (Bld) [Mass/Vol] 7.4 g/dL Critically low 14.0-18.0 [facility] Comment on above: Performed By: #### CBC ####[facility] Rwftrbldnu7367 [place] [address]Dr. Yuki Diaz IG # 0.07 10e3/ul Critically high 0.00-0.03 [facility] Comment on above: Performed By: #### CBC ####[facility] Ddkuhwkfzk5722 [place] [address]Dr. Yuki Diaz IG % 0.6 % Critically high 0.0-0.5 [facility] Comment on above: Performed By: #### CBC ####[facility] Uzigktwmsj5208 [place] [address]Dr. Yuki Diaz LYMPH # 0.8 103/ul Critically low 1.2-3.8 [facility] Comment on above: Performed By: #### CBC ####[facility] Tyocntsloj6234 [place] [address]Dr. Yuki Diaz Lymphocytes/100 WBC (Bld) 6.6 % Critically low 20.5-60.0 [facility] Comment on above: Performed By: #### CBC ####[facility] Aznhraklzc1785 [place] [address]Dr. Monsealyssa Diaz MANUAL DIFF REQ NO Normal [facility] Comment on above: Performed By: #### CBC ####[facility] Tjymdgcetw4135 [place] [address]Dr. Yuki Diaz MCH (RBC) [Entitic mass] 28.1 pg Normal 25.9-34.0 [facility] Comment on above: Performed By: #### CBC ####[facility] Dzoxusbwjr2903 [place] [address]Dr. Monsealyssa Diaz MCHC (RBC) [Mass/Vol] 31.2 g/dL Normal 29.9-35.2 [facility] Comment on above: Performed By: #### CBC ####[facility] Nvryrmqiyr9284 [place] [address]Dr. Monsealyssa Diaz MCV (RBC) [Entitic vol] 90.1 fL Normal 80.0-94.0 [facility] Comment on above: Performed By: #### CBC ####[facility] Mzejhxrfjc0948 [place] [address]Dr. Monsealyssa Diaz MONO # 1.5 103/ul Critically high 0.3-0.8 [facility] Comment on above: Performed By: #### CBC ####[facility] Zldgmjqxdd1989 [place] [address]Dr. Monsealyssa Diaz Monocytes/100 WBC (Bld) 11.5 % Normal 1.7-12.0 [facility] Comment on above: Performed By: #### CBC ####[facility] Udocvdaetg5071 [place] [address]Dr. Yuki Diaz NEUT # 10.2 103/ul Critically high 1.4-6.5 [facility] Comment on above: Performed By: #### CBC ####[facility] Odvzofndmn8249 [place] [address]Dr. Yuki Diaz Neutrophils/100 WBC (Bld) 81.0 % Critically high 43.0-75.0 [facility] Comment on above: Performed By: #### CBC ####[facility] Gmqmlktren5164 [place] [address]Dr. Yuki Diaz Platelet mean volume (Bld) [Entitic vol] 10.7 fL Normal 9.5-13.5 [facility] Comment on above: Performed By: #### CBC ####[facility] ital Vugvapxjrl6298 [place] [address]Dr. Yuki Diaz PLT 204 103/ul Normal 150-450 [facility] Comment on above: Performed By: #### CBC ####[facility] Cwdyvskzme4873 [place] [address]Dr. Yuki Diaz RBC 2.63 106/ul Critically low 4.70-6.10 [facility] Comment on above: Performed By: #### CBC ####[facility] Ydzqwaaqwh5469 [place] [address]Dr. Yuki Diaz WBC 12.6 103/ul Critically high 4.0-11.0 [facility] Comment on above: Performed By: #### CBC ####[facility] Ozvyhsstnd9837 [place] [address]Dr. Y[address] Diaz CT ABD/PELVIS WO CONon 10-25 CT ABD/PELVIS WO CON Normal [facility] CT PELVIS WO CONon 3 CT PELVIS WO CON Normal [facility] POINT OF CARE GLUCOSEon 10-06 Glucose [Mass/Vol] 65 mg/dL Critically low 74-106 [facility] Comment on above: Performed By: #### POCGLUC ####[facility] Vxlgnteshs[address] [place], [place] [address]Dr. Yuki Diaz Glucose [Mass/Vol] 137 mg/dL Critically high 74-106 [facility] Comment on above: Performed By: #### POCGLUC ####[facility] Woouoqvsnq[address] [place], [place] [id number]. Yuki Diaz Glucose [Mass/Vol] 118 mg/dL Critically high 74-106 [facility] Comment on above: Performed By: #### POCGLUC ####[facility] Rwbyfntsac7057 [place] [address]Dr. Yuki Diaz PROF 14(COMP METB)on 10-25- 023 Albumin [Mass/Vol] 2.2 g/dL Critically low 3.4-5.0 [facility] Comment on above: Performed By: #### CMP ####[facility] Zdkqlkhtxu5048 [place] [address]Dr. Yuki Diaz Albumin/Globulin [Mass ratio] 0.6 {ratio} Normal [facility] Comment on above: Performed By: #### CMP ####[facility] Buiojxxium[address] [place] [address]Dr. Yuki Diaz ALP [Catalytic activity/Vol] 64 U/L Normal 46-116 [facility] Comment on above: Performed By: #### CMP ####[facility] Mkztrvxale0053 [place] [address]Dr. Yuki Diaz ALT [Catalytic activity/Vol] 11 U/L Critically low 16-63 [facility] Comment on above: Performed By: #### CMP ####[facility] Ucxgdavvox6805 [place] [address]Dr. Yuki Diaz Anion gap [Moles/Vol] 13.5 mmol/L Normal [facility] Comment on above: Performed By: #### CMP ####[facility] Zxncfqjkct7412 [place] [address]Dr. Yuki Diaz AST [Catalytic activity/Vol] 12 U/L Critically low 15-37 [facility] Comment on above: Performed By: #### CMP ####[facility] Ewwfrwvqzf9720 [place] [address]Dr. Yuki Diaz Bilirubin [Mass/Vol] 0.8 mg/dL Normal 0.2-1.0 [facility] Comment on above: Performed By: #### CMP ####[facility] Gitnntfzds5513 [place] [address]Dr. Yuki Diaz Calcium [Mass/Vol] 8.5 mg/dL Normal 8.5-10.1 [facility] Comment on above: Performed By: #### CMP ####[facility] ital Tyyxssoaeq0522 [place] [address]Dr. Yuki Diaz Chloride [Moles/Vol] 100 mmol/L Normal 98-107 [facility] Comment on above: Performed By: #### CMP ####[facility] ital Gcofepsfje9952 [place] [address]Dr. Monsealyssa Joe CO2 [Moles/Vol] 28.1 mmol/L Normal 21.0-32.0 [facility] Comment on above: Performed By: #### CMP ####[facility] Heuigzzrgq0162 [place] [address]Dr. Yuki Diaz Creatinine [Mass/Vol] 2.93 mg/dL Critically high 0.70-1.30 [facility] Comment on above: Performed By: #### CMP ####[facility] Kezzmpjkos1910 [place] [address]Dr. Yuki Diaz EGFR-AF EGYPTIAN 25 mL/min/1.73m2 Critically low >=60 [facility] Comment on above: Performed By: #### CMP ####[facility] Syqttgzrqk5047 [place] [address]Dr. Yuki Diaz EGFR-NON AF EGYPTIAN 21 mL/min/1.73m2 Critically low >=60 [facility] Comment on above: Performed By: #### CMP ####[facility] ital Lxolwnydty1910 [place] [address]Dr. Yuki Diaz Globulin (S) [Mass/Vol] 3.7 g/dL Normal [facility] Comment on above: Performed By: #### CMP ####[facility] Rmwniqavgj7120 [place] [address]Dr. Yuki Diaz Glucose [Mass/Vol] 112 mg/dL Critically high 74-106 [facility] Comment on above: Performed By: #### CMP ####[facility] Iijyveyuql9594 [place] [address]Dr. Yuki Diaz Potassium [Moles/Vol] 4.6 mmol/L Normal 3.5-5.1 [facility] Comment on above: Performed By: #### CMP ####[facility] Lhrajtnmzm4249 [place] [address]Dr. Yuki Diaz Protein [Mass/Vol] 5.9 g/dL Critically low 6.4-8.2 [facility] Comment on above: Performed By: #### CMP ####[facility] ital Yxsbebgbqs8632 [place] [address]Dr. Yuki Diaz Sodium [Moles/Vol] 137 mmol/L Normal 136-145 [facility] Comment on above: Performed By: #### CMP ####[facility] Qtukcrfbwu3315 [place] [address]Dr. Yuki Diaz Urea nitrogen [Mass/Vol] 56.0 mg/dL Critically high 7.0-18.0 [facility] Comment on above: Performed By: #### CMP ####[facility] Osjinwvrwy[address] [place], [place] [address]Dr. Yuki Diaz Urea nitrogen/Creatin ine [Mass ratio] 19.1 mg/mg Normal [facility] Comment on above: Performed By: #### CMP ####[facility] Ifwtlemrbb9997[address] [place], [place] [address]Dr. Yuki Diaz TYPE AND SCREENon 10-25-2022 TYPE AND SCREEN Negative Normal [facility] Comment on above: Performed By: #### TNS ####[facility] Rcplrmjgsf44[address] [place], [place] [address]Dr. Yuki Diaz XR CHEST 1 Von 10-25-2022 XR CHEST 1 V Normal [facility] CBC AUTO DIFFon 10-24-2022 BASO # 0.0 103/ul Normal 0.0-0.1 [facility] Comment on above: Performed By: #### CBC ####[facility] Qubzilwuia4612 [place] [address]Dr. Yuki Diaz Basophils/100 WBC (Bld) 0.1 % Critically low 0.2-2.0 [facility] Comment on above: Performed By: #### CBC ####[facility] Blpcaytjxx2181 [place] [address]Dr. Yuki Diaz EO # 0.0 103/ul Normal 0.0-0.7 [facility] Comment on above: Performed By: #### CBC ####[facility] ital Wiegobgldt7346 [place] [address]Dr. Yuki Diaz Eosinophils/100 WBC (Bld) 0.0 % Critically low 0.9-7.0 [facility] Comment on above: Performed By: #### CBC ####[facility] Aqdbuxxcar5046 [place] [address]Dr. Yuki Diaz Erythrocyte distribution width (RBC) [Ratio] 15.2 % Critically high 11.0-15.0 [facility] Comment on above: Performed By: #### CBC ####[facility] Kjbkduhkji[address] [place], [place] [address]Dr. Yuki Diaz Hematocrit (Bld) [Volume fraction] 27.4 % Critically low 42.0-54.0 [facility] Comment on above: Performed By: #### CBC ####[facility] Twokfmstia5692 [place] [address]Dr. Yuki Diaz Hemoglobin (Bld) [Mass/Vol] 8.4 g/dL Critically low 14.0-18.0 [facility] Comment on above: Performed By: #### CBC ####[facility] Zagghwscmh9484 [place] [address]Dr. Yuki Diaz IG # 0.13 10e3/ul Critically high 0.00-0.03 [facility] Comment on above: Performed By: #### CBC ####[facility] Jtzktgsntc8902 [place] [address]Dr. Yuki Diaz IG % 0.7 % Critically high 0.0-0.5 [facility] Comment on above: Performed By: #### CBC ####[facility] Iglyvtmmpr57[address] [place], [place] [address]Dr. Yuki Diaz LYMPH # 1.0 103/ul Critically low 1.2-3.8 [facility] Comment on above: Performed By: #### CBC ####[facility] Eblgvhudiu8325 [place] [address]Dr. Yuki Diaz Lymphocytes/100 WBC (Bld) 5.5 % Critically low 20.5-60.0 [facility] Comment on above: Performed By: #### CBC ####[facility] Oqdkmvefle3830 [place] [address]DrBebo Diaz MANUAL DIFF REQ NO Normal [facility] Comment on above: Performed By: #### CBC ####[facility] ital Tpzgnigznp5406 [place] [address]Dr. Yuki Diaz MCH (RBC) [Entitic mass] 27.8 pg Normal 25.9-34.0 [facility] Comment on above: Performed By: #### CBC ####[facility] Myrderghgc2868 [place] [address]Dr. Yuki Diaz MCHC (RBC) [Mass/Vol] 30.7 g/dL Normal 29.9-35.2 [facility] Comment on above: Performed By: #### CBC ####[facility] Gkdepowszk9707 [place] [address]Dr. Yuki Diaz MCV (RBC) [Entitic vol] 90.7 fL Normal 80.0-94.0 [facility] Comment on above: Performed By: #### CBC ####[facility] ital Mnrtshctqs5052 [place] [address]Dr. Yuki Diaz MONO # 2.8 103/ul Critically high 0.3-0.8 [facility] Comment on above: Performed By: #### CBC ####[facility] Qcntjuzuio3468 [place] [address]DrBebo Diaz Monocytes/100 WBC (Bld) 15.0 % Critically high 1.7-12.0 [facility] Comment on above: Performed By: #### CBC ####[facility] Otnqvqfrqr4064 [place] [address]Dr. Yuki Diaz NEUT # 14.9 103/ul Critically high 1.4-6.5 [facility] Comment on above: Performed By: #### CBC ####[facility] Ojaybluisg0934 [place] [address]DrBebo Diaz Neutrophils/100 WBC (Bld) 78.7 % Critically high 43.0-75.0 [facility] Comment on above: Performed By: #### CBC ####[facility] Jgaykqwbrn8782 [place] [address]DrBebo Diaz Platelet mean volume (Bld) [Entitic vol] 10.8 fL Normal 9.5-13.5 [facility] Comment on above: Performed By: #### CBC ####[facility] Vxygemfhzp6943 [place] [address]DrBebo Diaz PLT 212 103/ul Normal 150-450 [facility] Comment on above: Performed By: #### CBC ####[facility] Fsqcdkmkwf7046 [place] [address]DrBebo Diaz RBC 3.02 106/ul Critically low 4.70-6.10 [facility] Comment on above: Performed By: #### CBC ####[facility] Ykuczuyeca8399 [place] [address]DrBebo Diaz WBC 18.9 103/ul Critically high 4.0-11.0 [facility] Comment on above: Performed By: #### CBC ####[facility] Lpbusbijjz4102 [place] [address]Dr[address] Y[address] CT KNEE RT WO CONon 10-25-19 CT KNEE RT WO CON Normal [facility] POINT OF CARE GLUCOSEon 10-06 0 Glucose [Mass/Vol] 110 mg/dL Critically high 74-106 [facility] Comment on above: Performed By: #### POCGLUC ####[facility] Ikjsedefod5691 [place] [address]DrBebo Diaz Glucose [Mass/Vol] 134 mg/dL Critically high 74-106 [facility] Comment on above: Performed By: #### POCGLUC ####[facility] Gpaxhxdwud9092 [place] [address]Dr. Yuki Diaz PROF 14(COMP METB)on 023 Albumin [Mass/Vol] 2.8 g/dL Critically low 3.4-5.0 [facility] Comment on above: Performed By: #### CMP ####[facility] Nulyffxizy5606 [place] [address]Dr. Yuki Diaz Albumin/Globulin [Mass ratio] 0.8 {ratio} Normal [facility] Comment on above: Performed By: #### CMP ####[facility] Qhljtzlojh3826 [place] [address]Dr. Yuki Diza ALP [Catalytic activity/Vol] 89 U/L Normal 46-116 [facility] Comment on above: Performed By: #### CMP ####[facility] ital Jdwsnksoqk8047 [place] [address]Dr. Yuki Diaz ALT [Catalytic activity/Vol] 10 U/L Critically low 16-63 [facility] Comment on above: Performed By: #### CMP ####[facility] Dnsqvorneq6297 [place] [address]Dr. Yuki Diaz Anion gap [Moles/Vol] 11.7 mmol/L Normal [facility] Comment on above: Performed By: #### CMP ####[facility] Zoborklmmn2245 [place] [address]Dr. Yuki Diaz AST [Catalytic activity/Vol] 12 U/L Critically low 15-37 [facility] Comment on above: Performed By: #### CMP ####[facility] Miwvxmquej9468 [place] [address]Dr. Yuki Diaz Bilirubin [Mass/Vol] 0.9 mg/dL Normal 0.2-1.0 [facility] Comment on above: Performed By: #### CMP ####[facility] Ecslmmbjch7648 [place] [address]Dr. Yuki Diaz Calcium [Mass/Vol] 8.7 mg/dL Normal 8.5-10.1 [facility] Comment on above: Performed By: #### CMP ####[facility] Gcrhvbpqal8478 [place] [address]Dr. Yuki Diaz Chloride [Moles/Vol] 102 mmol/L Normal 98-107 [facility] Comment on above: Performed By: #### CMP ####[facility] Gqfztskfuh6385 [place] [address]Dr. Yuki Diaz CO2 [Moles/Vol] 29.1 mmol/L Normal 21.0-32.0 [facility] Comment on above: Performed By: #### CMP ####[facility] Azyavqpver7979 [place] [address]Dr. Yuki Diaz Creatinine [Mass/Vol] 2.75 mg/dL Critically high 0.70-1.30 [facility] Comment on above: Performed By: #### CMP ####[facility] Isrffsrxlz0420 [place] [address]Dr. Yuki Diaz EGFR-AF EGYPTIAN 27 mL/min/1.73m2 Critically low >=60 [facility] Comment on above: Performed By: #### CMP ####[facility] Faynrseqlr5573 [place] [address]Dr. Monsealyssa Joe EGFR-NON AF EGYPTIAN 22 mL/min/1.73m2 Critically low >=60 [facility] Comment on above: Performed By: #### CMP ####[facility] Ateluttblb3676 [place] [address]Dr. Yuki Diaz Globulin (S) [Mass/Vol] 3.7 g/dL Normal [facility] Comment on above: Performed By: #### CMP ####[facility] Txgzacdarg3731 [place] [address]Dr. Yuki Diaz Glucose [Mass/Vol] 121 mg/dL Critically high 74-106 [facility] Comment on above: Performed By: #### CMP ####[facility] Xlehodkkhi5190 [place] [address]Dr. Yuki Diaz Potassium [Moles/Vol] 4.8 mmol/L Normal 3.5-5.1 [facility] Comment on above: Performed By: #### CMP ####[facility] Ivwdxirltt7[address] [place], [place] [address]Dr. Yuki Diaz Protein [Mass/Vol] 6.5 g/dL Normal 6.4-8.2 [facility] Comment on above: Performed By: #### CMP ####[facility] Qguqwfjepo8026 [place] [address]Dr. Yuki Diaz Sodium [Moles/Vol] 138 mmol/L Normal 136-145 [facility] Comment on above: Performed By: #### CMP ####[facility] Assjtrskli0677 [place] [address]Dr. Yuki Diaz Urea nitrogen [Mass/Vol] 39.0 mg/dL Critically high 7.0-18.0 [facility] Comment on above: Performed By: #### CMP ####[facility] Zgphdhqzga1001 [place] [address]Dr. Yuki Diaz Urea nitrogen/Creatin ine [Mass ratio] 14.2 mg/mg Normal [facility] Comment on above: Performed By: #### CMP ####[facility] Belwslwwcu19[address] [place], [place] [address]Dr. Yuki Diaz US KIDNEYS BLADDERon 023 US KIDNEYS BLADDER Normal [facility] XR CHEST 1 Von 10-24-2022 XR CHEST 1 V Normal [facility] CBC AUTO DIFFon 10-23-2022 BASO # 0.0 103/ul Normal 0.0-0.1 [facility] Comment on above: Performed By: #### CBC ####[facility] Lnibcfegti6081 [place] [address]Dr. Yuki Joe Basophils/100 WBC (Bld) 0.1 % Critically low 0.2-2.0 [facility] Comment on above: Performed By: #### CBC ####[facility] Lcwqprbxyc1836 [place] [address]Dr. Yuki Diaz EO # 0.1 103/ul Normal 0.0-0.7 [facility] Comment on above: Performed By: #### CBC ####[facility] Mjkyltmlxo4395 [place] [address]Dr. Monsealyssa Joe Eosinophils/100 WBC (Bld) 0.4 % Critically low 0.9-7.0 [facility] Comment on above: Performed By: #### CBC ####[facility] Zykbyrskfk[address] [place] [address]. Yuki Diaz Erythrocyte distribution width (RBC) [Ratio] 15.0 % Normal 11.0-15.0 [facility] Comment on above: Performed By: #### CBC ####[facility] Rtlqnkxjdc[address] [place] [address]. Yuki Diaz Hematocrit (Bld) [Volume fraction] 29.8 % Critically low 42.0-54.0 [facility] Comment on above: Performed By: #### CBC ####[facility] Xepudytvtk[address] [place] [address]. Yuki Diaz Hemoglobin (Bld) [Mass/Vol] 9.1 g/dL Critically low 14.0-18.0 [facility] Comment on above: Performed By: #### CBC ####[facility] Dldrrdvxok256[address] [place] [address]. Yuki Diaz IG # 0.07 10e3/ul Critically high 0.00-0.03 [facility] Comment on above: Performed By: #### CBC ####[facility] Miuynitfqg79[address] [place] [address]. Yuki Diaz IG % 0.5 % Normal 0.0-0.5 [facility] Comment on above: Performed By: #### CBC ####[facility] Rhjwklupvb[address] [place] [address]. Yuki Diaz LYMPH # 1.0 103/ul Critically low 1.2-3.8 [facility] Comment on above: Performed By: #### CBC ####[facility] Slhttvmftr[address] [place] [address]. Yuki Diaz Lymphocytes/100 WBC (Bld) 7.8 % Critically low 20.5-60.0 [facility] Comment on above: Performed By: #### CBC ####[facility] Eswkpxnuiy5[address] [place] [address]. Yuki Diaz MANUAL DIFF REQ NO Normal [facility] Comment on above: Performed By: #### CBC ####[facility] Tihcabossu8593 [place] [address]DrBebo Diaz MCH (RBC) [Entitic mass] 27.9 pg Normal 25.9-34.0 [facility] Comment on above: Performed By: #### CBC ####[facility] Xqcjwbsqkb8148 [place] [address]DrBebo Diaz MCHC (RBC) [Mass/Vol] 30.5 g/dL Normal 29.9-35.2 [facility] Comment on above: Performed By: #### CBC ####[facility] Ocduyxtbuz487[address] [place], [place] [address]DrBebo Diaz MCV (RBC) [Entitic vol] 91.4 fL Normal 80.0-94.0 [facility] Comment on above: Performed By: #### CBC ####[facility] Neffblpicx4815[address] [place], [place] [address]DrBebo Diaz MONO # 2.1 103/ul Critically high 0.3-0.8 [facility] Comment on above: Performed By: #### CBC ####[facility] Omncjborsj6145[address] [place], [place] [address]DrBebo Diaz Monocytes/100 WBC (Bld) 16.0 % Critically high 1.7-12.0 [facility] Comment on above: Performed By: #### CBC ####[facility] Rhefzkdrvo4923[address] [place], [place] [address]DrBebo Diaz NEUT # 10.1 103/ul Critically high 1.4-6.5 [facility] Comment on above: Performed By: #### CBC ####[facility] Crgnepoahw4218[address] [place], [place] [address]DrBebo Diaz Neutrophils/100 WBC (Bld) 75.2 % Critically high 43.0-75.0 [facility] Comment on above: Performed By: #### CBC ####[facility] Vzwhpitaog7209[address] [place], [place] [address]DrBebo Diaz Platelet mean volume (Bld) [Entitic vol] 10.3 fL Normal 9.5-13.5 [facility] Comment on above: Performed By: #### CBC ####[facility] Zkwjmjaipf1082 [place] [address]Dr. Yuki Diaz PLT 255 103/ul Normal 150-450 [facility] Comment on above: Performed By: #### CBC ####[facility] Iluggejhws5761 [place] [address]DrBebo Yuki Diaz RBC 3.26 106/ul Critically low 4.70-6.10 [facility] Comment on above: Performed By: #### CBC ####[facility] Cehvqkxnxf6710 [place] [address]Dr. Yuki Diaz WBC 13.4 103/ul Critically high 4.0-11.0 [facility] Comment on above: Performed By: #### CBC ####[facility] Hzmvzqgvvl0[address] [place], [place] [address]DrBebo Yuki Diaz CULTURE BLOODon 10-23-2022 Microscopic examination of blood, culture Culture Observations: NO GROWTH AT 5 DAYS. Normal [facility] Comment on above: Performed By: #### BLDCX1 ####[facility] Hobiriuifo07[address] [place], [place] [address]DrBebo Yuki Diaz Performed By: #### B LDCX2 ####[facility] Qwbmtlehfi8872[address] [place], [place] [address]DrBebo Yuki Diaz CULTURE URINEon 10-23-2022 CULTURE URINE Culture Observations : NO GROWTH. Normal [facility] Comment on above: Performed By: #### URCX ####[facility] Nnwoqyewww[address] [place], [place] [address]DrBebo Yuki Diaz [facility]-05 SARS-CoV-2 (COVID-19) RNA JARVIS+probe Ql (Unsp spec) Not detected Normal NOT DETECTED [facility] Comment on above: Result Comment: When [...] for this test is supported by the [place] of Health and Human Service's declaration that [...] be used). Performed By: #### C SYMONE ####[facility] Njamkbgknx7304[address] [place], [place] [address]Dr. Yuki Diaz ER URINE PROFILEon 3 Bilirubin Ql (U) Negative Normal NEGATIVE [facility] Comment on above: Performed By: #### MARCELLO CAZARES ####[facility] Ometyxkvfl8064[address] [place], [place] [address]Dr. Yuki Diaz Clarity (U) CLEAR Normal CLEAR [facility] Comment on above: Performed By: #### MARCELLO CAZARES ####[facility] Cpsoealpob5263[address] [place], [place] [address]Dr. Yuki Diaz Color (U) YELLOW Normal YELLOW [facility] Comment on above: Performed By: #### MARCELLO CAZARES ####[facility] Xqpqmcnbbo8387[address] [place], [place] [address]Dr. Yuki GTZD A micrscopic examina tion will be performed if indicated. Normal [facility] Comment on above: Performed By: #### MARCELLO CAZARES ####[facility] Tokepjdpdo1313[address] [place], [place] [address]Dr. Yuki Diaz Glucose Ql (U) Negative Normal NEGATIVE [facility] Comment on above: Performed By: #### HAKAN CAZARESRO ####[facility] Eejgyqemur384[address] [place], [place] [address]Dr. Yuki Diaz Hemoglobin Ql (U) SMALL Abnormal NEGATIVE [facility] Comment on above: Performed By: #### SAGE UMICRO ####[facility] Tqdnoetkei8371 [place] [address]Dr. Yuki Diaz Ketones Ql (U) Negative Normal NEGATIVE [facility] Comment on above: Performed By: #### SAGE UMICRO ####[facility] Xojngvnfzv1534 [place] [address]Dr. Yuki Diaz LEUKOCYTES Negative Normal NEGATIVE [facility] Comment on above: Performed By: #### SAGE UMICRO ####[facility] Zybsngjbrg1441 [place] [address]Dr. Yuki Diaz Nitrite Ql (U) Negative Normal NEGATIVE [facility] Comment on above: Performed By: #### SAGE UMICRO ####[facility] Gljhnxacsb864[address] [place], [place] [address]Dr. Yuki Diaz pH (U) 7.0 [pH] Normal 5-9 [facility] Comment on above: Performed By: #### SAGE UMICRO ####[facility] Ahdhzaymld443[address] [place], [place] [address]Dr. Yuki Diaz Protein (U) [Mass/Vol] 30 mg/dL Abnormal NEGATIVE/ TRACE [facility] Comment on above: Performed By: #### SAGE UMICRO ####[facility] Acvyzkstkc06[address] [place], [place] [address]Dr. Yuki Diaz SPEC GRAVITY 1.010 Normal 1.005-<=1. 025 [facility] Comment on above: Performed By: #### SAGE UMICRO ####[facility] Mwojpgofgr7081 [place] [address]Dr. Yuki Diaz UR MICRO IND INDICATED Normal [facility] Comment on above: Performed By: #### SAGE UMICRO ####[facility] Nufxtqnxli3858 [place] [address]Dr. Yuki Diaz Urobilinogen Qn (U) 1.0 {Chidi'U}/dL Normal 0.2 - 1.0 [facility] Comment on above: Performed By: #### ERUR, UMKETANRO ####[facility] Xxbprgbhhq[address] [place], [place] [address]Dr. Yuki Diaz INFLUENZA A AND B AGon 10-23 INFLUANEGH SEE BELOW Normal [facility] Comment on above: Result Comment: Negative for Flu A prote in angiten. Infection due to Flu A cannot be ruled out. Flu A angiten in the sample may be below the detection limit of the test. Performed By: #### I NFLUAB ####[facility] Vukaruvzum40[address] [place], [place] [address]Dr. Yuki Diaz INFLUBNEGH SEE BELOW Normal [facility] Comment on above: Result Comment: Negative for Flu B prote in antigen. Infection due to Flu B cannot be ruled out. Flu B antigen in the sample may be below the detection limit of the test. Performed By: #### I NFLUAB ####[facility] [facility] Xsggndouhg[address] [place], [place] [address]Dr. Yuki [facility] INFLUENZA A AG Negative Normal NEGATIVE SEE COMMENT [facility] Comment on above: Performed By: #### INFLUAB ####[facility] Haxxzaxdpg[address] [place], [place] [address]Dr. Yuki [facility] INFLUENZA B AG Negative Normal NEGATIVE SEE COMMENT [facility] Comment on above: Performed By: #### INFLUAB ####[facility] Xwtxyuvihy20[address] [place], [place] [address]Dr. Yuki Diaz LACTATE/LACTIC ACIDon 2022 Lactate [Moles/Vol] 1.3 mmol/L Normal 0.4-2.0 [facility] Comment on above: Performed By: #### LACT ####[facility] Yhfoyyzkxr3[address] [place], [place] [address]Dr. Yuki Diaz Lactate [Moles/Vol] 1.6 mmol/L Normal 0.4-2.0 [facility] Comment on above: Performed By: #### LACT ####[facility] Rxzzdhbflm[address] [place], [place] [address]Dr. Yuki [facility] Lactate [Moles/Vol] 1.5 mmol/L Normal 0.4-2.0 [facility] Comment on above: Performed By: #### LACT ####[facility] Oonbfuwtsq3445 [place] [address]Dr. Yuki Diaz POINT OF CARE GLUCOSEon 10-05 Glucose [Mass/Vol] 127 mg/dL Critically high 74-106 [facility] Comment on above: Performed By: #### POCGLUC ####[facility] Fgyasklold6819 [place] [address]Dr. Yuki Diaz Glucose [Mass/Vol] 145 mg/dL Critically high 74-106 [facility] Comment on above: Performed By: #### POCGLUC ####[facility] Ptdotvtrfj4594 [place] [address]Dr. Yuki Diaz PROF 14(COMP METB)on 023 Albumin [Mass/Vol] 3.4 g/dL Normal 3.4-5.0 [facility] Comment on above: Performed By: #### CMP ####[facility] Nbtdraiwwp9641 [place] [address]Dr. Yuki Diaz Albumin/Globulin [Mass ratio] 0.8 {ratio} Normal [facility] Comment on above: Performed By: #### CMP ####[facility] Btakqiycvk5843 [place] [address]Dr. Yuki Diaz ALP [Catalytic activity/Vol] 100 U/L Normal 46-116 [facility] Comment on above: Performed By: #### CMP ####[facility] Ejtabuvktq9495 [place] [address]Dr. Yuki Diaz ALT [Catalytic activity/Vol] 15 U/L Critically low 16-63 [facility] Comment on above: Performed By: #### CMP ####[facility] Nccoffjhsj2956 [place] [address]Dr. Yuki Diaz Anion gap [Moles/Vol] 14.2 mmol/L Normal [facility] Comment on above: Performed By: #### CMP ####[facility] Tkyifacjnm2314 [place] [address]Dr. Yuki Diaz AST [Catalytic activity/Vol] 12 U/L Critically low 15-37 [facility] Comment on above: Performed By: #### CMP ####[facility] Ljkhgrjtwt8750 [place] [address]Dr. Yuki Diaz Bilirubin [Mass/Vol] 0.8 mg/dL Normal 0.2-1.0 [facility] Comment on above: Performed By: #### CMP ####[facility] Rwchzvviqs5655 [place] [address]Dr. Yuki Diaz Calcium [Mass/Vol] 9.0 mg/dL Normal 8.5-10.1 [facility] Comment on above: Performed By: #### CMP ####[facility] Rovlmtrlmx0712 [place] [address]Dr. Yuki Diaz Chloride [Moles/Vol] 101 mmol/L Normal 98-107 [facility] Comment on above: Performed By: #### CMP ####[facility] Huahqppbow5253 [place] [address]Dr. Yuki Diaz CO2 [Moles/Vol] 30.3 mmol/L Normal 21.0-32.0 [facility] Comment on above: Performed By: #### CMP ####[facility] Wfvkzpqqkn9494 [place] [address]Dr. Yuki Diaz Creatinine [Mass/Vol] 2.86 mg/dL Critically high 0.70-1.30 [facility] Comment on above: Performed By: #### CMP ####[facility] Drktfniwto3200 [place] [address]Dr. Yuki Joe EGFR-AF EGYPTIAN 26 mL/min/1.73m2 Critically low >=60 [facility] Comment on above: Performed By: #### CMP ####[facility] Ezpwgldgbc1035 [place] [address]Dr. Yuki Joe EGFR-NON AF EGYPTIAN 21 mL/min/1.73m2 Critically low >=60 [facility] Comment on above: Performed By: #### CMP ####[facility] Ftuliewppy3447 [place] [address]Dr. Yuki Joe Globulin (S) [Mass/Vol] 4.1 g/dL Normal [facility] Comment on above: Performed By: #### CMP ####[facility] Jinewlvhei4110 [place] [address]Dr. Yuki Diaz Glucose [Mass/Vol] 153 mg/dL Critically high 74-106 [facility] Comment on above: Performed By: #### CMP ####[facility] Hmmkigehqp5133 [place] [address]Dr. Yuki Diaz Potassium [Moles/Vol] 4.5 mmol/L Normal 3.5-5.1 [facility] Comment on above: Performed By: #### CMP ####[facility] Cgmchsugbi2336 [place] [address]Dr. Yuki Diaz Protein [Mass/Vol] 7.5 g/dL Normal 6.4-8.2 [facility] Comment on above: Performed By: #### CMP ####[facility] Cggxrtteum7734 [place] [address]Dr. Yuki Diaz Sodium [Moles/Vol] 141 mmol/L Normal 136-145 [facility] Comment on above: Performed By: #### CMP ####[facility] Srxhdgsroj5846 [place] [address]Dr. Yuki Diaz Urea nitrogen [Mass/Vol] 40.0 mg/dL Critically high 7.0-18.0 [facility] Comment on above: Performed By: #### CMP ####[facility] Qyzwilsczm3538 [place] [address]Dr. Yuki Diaz Urea nitrogen/Creatin ine [Mass ratio] 14.0 mg/mg Normal [facility] Comment on above: Performed By: #### CMP ####[facility] Hjbggqfjxs1293 [place] [phone]. Yuki Joe URINE MICROSCOPIC ONLYon BACTERIA NONE SEEN Normal NONE SEEN [facility] Comment on above: Performed By: #### MARCELLO CAZARES ####[facility] Uvidvrezvd2927 [place] [phone]. Yuki Joe Bacteria identified Cx Nom (U) CX ALREADY ORDERED Normal [facility] Comment on above: Performed By: #### SAGE UMICRO ####[facility] Qjshigbsji9841 [place] [address]Dr. Yuki Diaz CAST NONE SEEN Normal NONE SEEN [facility] Comment on above: Performed By: #### SAGE UMICRO ####[facility] Nsgodmshww0109 [place] [address]Dr. Yuki Diaz Crystals LM Nom (Urine sed) NONE SEEN Normal NONE SEEN [facility] Comment on above: Performed By: #### SAGE UMICRO ####[facility] Olefmczize3222 [place] [address]Dr. Yuki Diaz Epithelial cells LM Ql (Urine sed) NONE SEEN Normal NONE SEEN /RARE [facility] Comment on above: Performed By: #### SAGE UMICRO ####[facility] Hygoyoyyku8939 [place] [address]Dr. Yuki Diaz MUCOUS NONE SEEN Normal NONE SEEN [facility] Comment on above: Performed By: #### SAGE UMICRO ####[facility] Pdbiyhltzy3201[address] [place], [place] [address]Dr. Monsealyssa Diaz RBC 0-2 Normal 0-2 [facility] Comment on above: Performed By: #### SAGE UMICRO ####[facility] Xzksnqqeik5134[address] [place], [place] [address]Dr. Yuki Diaz WBC NONE SEEN Normal NONE SEEN [facility] Comment on above: Performed By: #### SAGE UMICRO ####[facility] Eexavydpzu6725[address] [place], [place] [address]Dr. Yuki Diaz XR KNEE RT 4V or >on 023 XR KNEE RT 4V or > Normal [facility] XR HAND LT MIN 3Von 10-23-19 23 XR HAND LT MIN 3V Normal [facility] BNPon 10-13-2022 Natriuretic peptide B (Bld) [Mass/Vol] 1093.0 pg/mL Normal <=1,800.0 [facility] Comment on above: Performed By: #### BMP, BNP ####[facility] Vznlvrzxpw5894 [place] [address]Dr. Yuki Diaz PROF CHEM 8 (BAS METB)on Anion gap [Moles/Vol] 9.7 mmol/L Normal [facility] Comment on above: Performed By: #### BMP, BNP ####[facility] Hhgigqwdhw3117 [place] [address]Dr. Yuki Diaz Calcium [Mass/Vol] 8.6 mg/dL Normal 8.5-10.1 [facility] Comment on above: Performed By: #### BMP, BNP ####[facility] Ccszaatnlj6[address] [place], [place] [address]Dr. Yuki Diaz Chloride [Moles/Vol] 105 mmol/L Normal 98-107 [facility] Comment on above: Performed By: #### BMP, BNP ####[facility] Wzyrhcdcxr6034[address] [place], [place] [address]Dr. Yuki Diaz CO2 [Moles/Vol] 31.1 mmol/L Normal 21.0-32.0 [facility] Comment on above: Performed By: #### BMP, BNP ####[facility] Dilxroubwa7627[address] [place], [place] [address]Dr. Yuki Diaz Creatinine [Mass/Vol] 2.46 mg/dL Critically high 0.70-1.30 [facility] Comment on above: Performed By: #### BMP, BNP ####[facility] Mghcmtfsex337[address] [place], [place] [address]Dr. Yuki Diaz EGFR-AF EGYPTIAN 31 mL/min/1.73m2 Critically low >=60 [facility] Comment on above: Performed By: #### BMP, BNP ####[facility] Cdknnsucau3678[address] [place], [place] [address]Dr. Yuki Diaz EGFR-NON AF EGYPTIAN 25 mL/min/1.73m2 Critically low >=60 [facility] Comment on above: Performed By: #### BMP, BNP ####[facility] Stqpijjuko3875[address] [place], [place] [address]Dr. Yuki Diaz Glucose [Mass/Vol] 155 mg/dL Critically high 74-106 [facility] Comment on above: Performed By: #### BMP, BNP ####[facility] Xdlmrlayvj5260 [place], [place] [address]Us. Yuki Diaz Potassium [Moles/Vol] 3.8 mmol/L Normal 3.5-5.1 [facility] Comment on above: Performed By: #### BMP, BNP ####[facility] Xldpluxqpy9287 [place], [place] [address]Rq. Yuki Diaz Sodium [Moles/Vol] 142 mmol/L Normal 136-145 [facility] Comment on above: Performed By: #### BMP, BNP ####[facility] Vhwxoyhrgu2009 [place], [place] [address]Gt. Yuki Diaz Urea nitrogen [Mass/Vol] 37.0 mg/dL Critically high 7.0-18.0 [facility] Comment on above: Performed By: #### BMP, BNP ####[facility] Nwvjzwddjp9245 [place] [phone]. Yuki Diaz Urea nitrogen/Creatin ine [Mass ratio] 15.0 mg/mg Normal [facility] Comment on above: Performed By: #### BMP, BNP ####[facility] Jjlgjcrubl7978 [place], [place] [address]Kv. Yuki Diaz Provider Letteron 09-20-2022 Provider Letter (Inserted Image. Alice ble to display) September 20, 2022 SH[address] B[address]ER [address] [place] [id number] SHENG BAUER 1940 Dear Sheng , You [...] appreciate your understanding. Sincerely, [facility] [address], [place] [address] Normal [facility] BNPon 09-19-2022 Natriuretic peptide B (Bld) [Mass/Vol] 1200.0 pg/mL Normal <=1,800.0 [facility] Comment on above: Performed By: #### CMP, BNP ####[facility] Wpkpfpybqs0131 [place] [address]Dr. Yuki Diaz PROF 14(COMP METB)on 023 Albumin [Mass/Vol] 3.2 g/dL Critically low 3.4-5.0 [facility] Comment on above: Performed By: #### CMP, BNP ####[facility] Jnfpzaczhw1966 [place] [address]Dr. Yuki Diaz Albumin/Globulin [Mass ratio] 0.8 {ratio} Normal [facility] Comment on above: Performed By: #### CMP, BNP ####[facility] Cjlvscrgcg9046[address] [place], [place] [address]Dr. Yuki Diaz ALP [Catalytic activity/Vol] 93 U/L Normal 46-116 [facility] Comment on above: Performed By: #### CMP, BNP ####[facility] Dpilbimwiw750[address] [place], [place] [address]Dr. Yuki Diaz ALT [Catalytic activity/Vol] 16 U/L Normal 16-63 [facility] Comment on above: Performed By: #### CMP, BNP ####[facility] Kxcbajnxka0983[address] [place], [place] [address]Dr. Yuki Diaz Anion gap [Moles/Vol] 13.6 mmol/L Normal [facility] Comment on above: Performed By: #### CMP, BNP ####[facility] Tqsigbvwgm614[address] [place], [place] [address]Dr. Yuki Diaz AST [Catalytic activity/Vol] 13 U/L Critically low 15-37 [facility] Comment on above: Performed By: #### CMP, BNP ####[facility] Riimeawjcb8895[address] [place], [place] [address]Dr. Yuki Diaz Bilirubin [Mass/Vol] 0.5 mg/dL Normal 0.2-1.0 [facility] Comment on above: Performed By: #### CMP, BNP ####[facility] Ikeqfewfma8076 [place] [address]Dr. Yuki Diaz Calcium [Mass/Vol] 8.9 mg/dL Normal 8.5-10.1 [facility] Comment on above: Performed By: #### CMP, BNP ####[facility] Wcndagpzya3678 [place] [address]Dr. Yuki Diaz Chloride [Moles/Vol] 107 mmol/L Normal 98-107 [facility] Comment on above: Performed By: #### CMP, BNP ####[facility] Xmhhmpusko9082 [place] [address]Dr. Yuki Diaz CO2 [Moles/Vol] 28.7 mmol/L Normal 21.0-32.0 [facility] Comment on above: Performed By: #### CMP, BNP ####[facility] Nlkolxoqvz5199[address] [place], [place] [address]Dr. Yuki Diaz Creatinine [Mass/Vol] 2.61 mg/dL Critically high 0.70-1.30 [facility] Comment on above: Performed By: #### CMP, BNP ####[facility] Rilegpnihs[address] [place], [place] [address]Dr. Yuki Diaz EGFR-AF EGYPTIAN 29 mL/min/1.73m2 Critically low >=60 [facility] Comment on above: Performed By: #### CMP, BNP ####[facility] Szyklmjtik0[address] [place], [place] [address]Dr. Yuki Diaz EGFR-NON AF EGYPTIAN 24 mL/min/1.73m2 Critically low >=60 [facility] Comment on above: Performed By: #### CMP, BNP ####[facility] Rqxuwyhwlz5173[address] [place], [place] [address]Dr. Yuki Diaz Globulin (S) [Mass/Vol] 4.0 g/dL Normal [facility] Comment on above: Performed By: #### CMP, BNP ####[facility] Xrpkpwqdul4215[address] [place], [place] [address]Dr. Yuki Joe Glucose [Mass/Vol] 119 mg/dL Critically high 74-106 [facility] Comment on above: Performed By: #### CMP, BNP ####[facility] Ijpcskaqrl8045 [place] [address]Dr. Yuki Diaz Potassium [Moles/Vol] 4.3 mmol/L Normal 3.5-5.1 [facility] Comment on above: Performed By: #### CMP, BNP ####[facility] Nwixglutxx4940 [place] [address]Dr. Yuki Diaz Protein [Mass/Vol] 7.2 g/dL Normal 6.4-8.2 [facility] Comment on above: Performed By: #### CMP, BNP ####[facility] Jumppyiunq9315 [place] [address]Dr. Yuki Diaz Sodium [Moles/Vol] 145 mmol/L Normal 136-145 [facility] Comment on above: Performed By: #### CMP, BNP ####[facility] Nppizyzkku4188 [place] [address]Dr. Yuki Diaz Urea nitrogen [Mass/Vol] 42.0 mg/dL Critically high 7.0-18.0 [facility] Comment on above: Performed By: #### CMP, BNP ####[facility] Dnxokvyvuu1057 [place] [address]Dr. Yuki Diaz Urea nitrogen/Creatin ine [Mass ratio] 16.1 mg/mg Normal [facility] Comment on above: Performed By: #### CMP, BNP ####[facility] Bxubbfjtkh9147[address] [place], [place] [address]Dr. Yuki Diaz Office Visiton 09-12-2022 Follow-up visit [id number] oNhelia Bauer 1940 M Date Provider Department Center 09/12/2022 OREN PEDRO [facility] Family History Problem Relation Age of Onset Coronary artery disease Mother Family Status - Relation Status Age at Mother Level of Service:31182 [place] OFFICE/OUTPATIENT ESTABLISHED LOW MDM 20-29 MIN Reason for Visit and Comments: Congestive Heart Failure [127] Coronary Artery Disease [187] Hypertension [591906] Normal [facility] BNPon 09-02-2022 Natriuretic peptide B (Bld) [Mass/Vol] 1506.0 pg/mL Normal <=1,800.0 [facility] Comment on above: Performed By: #### CMP, BNP ####[facility] Qgmnuzlwut5927 [place] [address]Dr. Yuki Diaz PROF 14(COMP METB)on 023 Albumin [Mass/Vol] 3.0 g/dL Critically low 3.4-5.0 [facility] Comment on above: Performed By: #### CMP, BNP ####[facility] Vekhmsvdwu5218[address] [place], [place] [address]Dr. Yuki Diaz Albumin/Globulin [Mass ratio] 0.8 {ratio} Normal [facility] Comment on above: Performed By: #### CMP, BNP ####[facility] Ecrgyofkwy[address] [place], [place] [address]Dr. Yuki Diaz ALP [Catalytic activity/Vol] 89 U/L Normal 46-116 [facility] Comment on above: Performed By: #### CMP, BNP ####[facility] Wuueoqtclr1872[address] [place], [place] [address]Dr. Yuki Diaz ALT [Catalytic activity/Vol] 17 U/L Normal 16-63 [facility] Comment on above: Performed By: #### CMP, BNP ####[facility] Gkrdvbfwhp2924[address] [place], [place] [address]Dr. Yuki Diaz Anion gap [Moles/Vol] 12.2 mmol/L Normal [facility] Comment on above: Performed By: #### CMP, BNP ####[facility] Ohaslqmkgc32[address] [place], [place] [address]Dr. Yuki Diaz AST [Catalytic activity/Vol] 13 U/L Critically low 15-37 [facility] Comment on above: Performed By: #### CMP, BNP ####[facility] Nisspnvjss5[address] [place], [place] [address]Dr. Yuki Diaz Bilirubin [Mass/Vol] 0.4 mg/dL Normal 0.2-1.0 [facility] Comment on above: Performed By: #### CMP, BNP ####[facility] Sehfclufgb9038[address] [place], [place] [address]Dr. Yuki Diaz Calcium [Mass/Vol] 8.8 mg/dL Normal 8.5-10.1 [facility] Comment on above: Performed By: #### CMP, BNP ####[facility] Esbtjkaszt709[address] [place], [place] [address]Dr. Yuki Diaz Chloride [Moles/Vol] 104 mmol/L Normal 98-107 [facility] Comment on above: Performed By: #### CMP, BNP ####[facility] Qccuftopka7566[address] [place], [place] [address]Dr. Yuki Diaz CO2 [Moles/Vol] 31.4 mmol/L Normal 21.0-32.0 [facility] Comment on above: Performed By: #### CMP, BNP ####[facility] Yasgxvbcxy3374[address] [place], [place] [address]Dr. Yuki Diaz Creatinine [Mass/Vol] 2.76 mg/dL Critically high 0.70-1.30 [facility] Comment on above: Performed By: #### CMP, BNP ####[facility] Ckapxtjhnm8165[address] [place], [place] [address]Dr. Yuki Diaz EGFR-AF EGYPTIAN 27 mL/min/1.73m2 Critically low >=60 [facility] Comment on above: Performed By: #### CMP, BNP ####[facility] Drhdqqtvci944[address] [place], [place] [address]Dr. Yuki Diaz EGFR-NON AF EGYPTIAN 22 mL/min/1.73m2 Critically low >=60 [facility] Comment on above: Performed By: #### CMP, BNP ####[facility] Iqyfswenvj1262[address] [place], [place] [address]Dr. Yuki Diaz Globulin (S) [Mass/Vol] 3.8 g/dL Normal [facility] Comment on above: Performed By: #### CMP, BNP ####[facility] Elxrednzzp37[address] [place], [place] [address]Dr. Yuki Diaz Glucose [Mass/Vol] 200 mg/dL Critically high 74-106 [facility] Comment on above: Performed By: #### CMP, BNP ####[facility] Vyqawzwqyl2687 [place] [address]Dr. Yuki Diaz Potassium [Moles/Vol] 4.6 mmol/L Normal 3.5-5.1 [facility] Comment on above: Performed By: #### CMP, BNP ####[facility] Qcrsauwulr6203[address] [place], [place] [address]Dr. Yuki Diaz Protein [Mass/Vol] 6.8 g/dL Normal 6.4-8.2 [facility] Comment on above: Performed By: #### CMP, BNP ####[facility] Zsaugapqyw7514[address] [place], [place] [address]Dr. Monsealyssa Diaz Sodium [Moles/Vol] 143 mmol/L Normal 136-145 [facility] Comment on above: Performed By: #### CMP, BNP ####[facility] Drovyknlpk022[address] [place], [place] [address]Dr. Yuki Diaz Urea nitrogen [Mass/Vol] 44.0 mg/dL Critically high 7.0-18.0 [facility] Comment on above: Performed By: #### CMP, BNP ####[facility] Khqtvczdwr8344[address] [place], [place] [address]Dr. Yuki Diaz Urea nitrogen/Creatin ine [Mass ratio] 15.9 mg/mg Normal [facility] Comment on above: Performed By: #### CMP, BNP ####[facility] Dtjjdhsvzd418[address] [place], [place] [address]Dr. Yuki Diaz ECHOCARDIO M/2D COMPLETEon 1 09-20-2021 ECHOCARDIO M/2D COMPLETE Normal [facility] Lab Reportson 06-15-2022 Lab Reports [id number]:127 Normal [facility] PROF 14(COMP METB)on 022 Albumin [Mass/Vol] 3.0 g/dL Critically low 3.4-5.0 [facility] Comment on above: Performed By: #### CMP ####[facility] Txdwatnzwg7348[address] [place], [place] [address]Dr. Yuki Diaz Albumin/Globulin [Mass ratio] 0.9 {ratio} Normal [facility] Comment on above: Performed By: #### CMP ####[facility] Taffkrfdrv8471 [place] [address]Dr. Yuki Diaz ALP [Catalytic activity/Vol] 73 U/L Normal 46-116 [facility] Comment on above: Performed By: #### CMP ####[facility] Trqadlkqtb4565 [place] [address]Dr. Yuki Diaz ALT [Catalytic activity/Vol] 21 U/L Normal 16-63 [facility] Comment on above: Performed By: #### CMP ####[facility] Zdudvleeun2085 [place] [address]Dr. Yuki Diaz Anion gap [Moles/Vol] 8.5 mmol/L Normal [facility] Comment on above: Performed By: #### CMP ####[facility] Cfgfbyrgox3199 [place] [address]Dr. Yuki Diaz AST [Catalytic activity/Vol] 11 U/L Critically low 15-37 [facility] Comment on above: Performed By: #### CMP ####[facility] Qpnsrajrxi6054 [place] [address]Dr. Yuki Diaz Bilirubin [Mass/Vol] 0.6 mg/dL Normal 0.2-1.0 [facility] Comment on above: Performed By: #### CMP ####[facility] Cestctcaek4574 [place] [address]Dr. Yuki Diaz Calcium [Mass/Vol] 8.7 mg/dL Normal 8.5-10.1 [facility] Comment on above: Performed By: #### CMP ####[facility] Cehieiyawl4269 [place] [address]Dr. Yuki Diaz Chloride [Moles/Vol] 104 mmol/L Normal 98-107 [facility] Comment on above: Performed By: #### CMP ####[facility] Suyclmafbk0323 [place] [address]Dr. Yuki Diaz CO2 [Moles/Vol] 32.7 mmol/L Critically high 21.0-32.0 [facility] Comment on above: Performed By: #### CMP ####[facility] Zzsipigxta0903 [place] [id number]. Yuki Diaz Creatinine [Mass/Vol] 2.43 mg/dL Critically high 0.70-1.30 [facility] Comment on above: Performed By: #### CMP ####[facility] Wejaetdqmj8626 [place] [address]Dr. Yuki Diaz EGFR-AF EGYPTIAN 31 mL/min/1.73m2 Critically low >=60 [facility] Comment on above: Performed By: #### CMP ####[facility] Sxrnxgjhcp5824 [place] [address]Dr. Yuki Diaz EGFR-NON AF EGYPTIAN 26 mL/min/1.73m2 Critically low >=60 [facility] Comment on above: Performed By: #### CMP ####[facility] Yfnqjpoukc6024 [place] [address]Dr. Yuki Diaz Globulin (S) [Mass/Vol] 3.4 g/dL Normal [facility] Comment on above: Performed By: #### CMP ####[facility] Cqqtioncla1471 [place] [address]Dr. Yuki Diaz Glucose [Mass/Vol] 155 mg/dL Critically high 74-106 [facility] Comment on above: Performed By: #### CMP ####[facility] Dhetpdkqeh1111 [place] [address]Dr. Yuki Diaz Potassium [Moles/Vol] 4.2 mmol/L Normal 3.5-5.1 [facility] Comment on above: Performed By: #### CMP ####[facility] Qenrizyuoa7978 [place] [address]Dr. Yuki Diaz Protein [Mass/Vol] 6.4 g/dL Normal 6.4-8.2 [facility] Comment on above: Performed By: #### CMP ####[facility] Ytjopfccog1177 [place] [address]Dr. Yuki Diaz Sodium [Moles/Vol] 141 mmol/L Normal 136-145 [facility] Comment on above: Performed By: #### CMP ####[facility] Emoqzojukh3966 [place] [address]Dr. Yuki Diaz Urea nitrogen [Mass/Vol] 47.0 mg/dL Critically high 7.0-18.0 [facility] Comment on above: Performed By: #### CMP ####[facility] Bblisxyrwb7196 [place] [address]Dr. Yuki Diaz Urea nitrogen/Creatin ine [Mass ratio] 19.3 mg/mg Normal [facility] Comment on above: Performed By: #### CMP ####[facility] Ydquswvstc4892 [place] [address]Dr. Yuki Diaz PROF 14(COMP METB)on 022 Albumin [Mass/Vol] 2.9 g/dL Critically low 3.4-5.0 [facility] Comment on above: Performed By: #### CMP ####[facility] Avqjdkojic9513 [place] [address]Dr. Yuki Diaz Albumin/Globulin [Mass ratio] 0.8 {ratio} Normal [facility] Comment on above: Performed By: #### CMP ####[facility] Company ital Iwfjrgwqyo6563 [place] [address]Dr. Yuki Diaz ALP [Catalytic activity/Vol] 86 U/L Normal 46-116 [facility] Comment on above: Performed By: #### CMP ####[facility] ital Esnwkvffvw3125 [place] [address]Dr. Yuki Diaz ALT [Catalytic activity/Vol] 27 U/L Normal 16-63 [facility] Comment on above: Performed By: #### CMP ####[facility] Oxrmipqsau0640 [place] [address]Dr. Yuki Diaz Anion gap [Moles/Vol] 11.5 mmol/L Normal [facility] Comment on above: Performed By: #### CMP ####[facility] Hyfqekoaeh4706 [place] [address]Dr. Yuki Diaz AST [Catalytic activity/Vol] 10 U/L Critically low 15-37 [facility] Comment on above: Performed By: #### CMP ####[facility] ital Zjctmjuoxr9443 [place] [address]Dr. Yuki Diaz Bilirubin [Mass/Vol] 0.5 mg/dL Normal 0.2-1.0 [facility] Comment on above: Performed By: #### CMP ####[facility] ital Rucnxkmvde2334 [place] [address]Dr. Yuki Diaz Calcium [Mass/Vol] 8.6 mg/dL Normal 8.5-10.1 [facility] Comment on above: Performed By: #### CMP ####[facility] ital Qowuucxmdo8608 [place] [address]Dr. Yuki Diaz Chloride [Moles/Vol] 108 mmol/L Critically high 98-107 [facility] Comment on above: Performed By: #### CMP ####[facility] Utokuguaqk6639 [place] [address]Dr. Yuki Diaz CO2 [Moles/Vol] 28.0 mmol/L Normal 21.0-32.0 [facility] Comment on above: Performed By: #### CMP ####[facility] Pbrpjkhykt6856 [place] [address]Dr. Yuki Diaz Creatinine [Mass/Vol] 2.58 mg/dL Critically high 0.70-1.30 [facility] Comment on above: Performed By: #### CMP ####[facility] Rqcehinvwo0120 [place] [address]Dr. Yuki Diaz EGFR-AF EGYPTIAN 29 mL/min/1.73m2 Critically low >=60 [facility] Comment on above: Performed By: #### CMP ####[facility] ital Xrfuzujspp2621 [place] [address]Dr. Yuki Diaz EGFR-NON AF EGYPTIAN 24 mL/min/1.73m2 Critically low >=60 [facility] Comment on above: Performed By: #### CMP ####[facility] Usgmktvttp9343 [place] [address]Dr. Yuki Diaz Globulin (S) [Mass/Vol] 3.5 g/dL Normal [facility] Comment on above: Performed By: #### CMP ####[facility] ital Qgpchivpqt6290 [place] [phone]. Yuki Diaz Glucose [Mass/Vol] 136 mg/dL Critically high 74-106 [facility] Comment on above: Performed By: #### CMP ####[facility] Xndjxqnijy0587 [place] [phone]. Yuki Diaz Potassium [Moles/Vol] 4.5 mmol/L Normal 3.5-5.1 [facility] Comment on above: Performed By: #### CMP ####[facility] Cfzzlpgtrm5843 [place] [address]Dr. Yuki Diaz Protein [Mass/Vol] 6.4 g/dL Normal 6.4-8.2 [facility] Comment on above: Performed By: #### CMP ####[facility] Vrmvhfnsjj9421 [place] [address]Dr. Yuki Diaz Sodium [Moles/Vol] 143 mmol/L Normal 136-145 [facility] Comment on above: Performed By: #### CMP ####[facility] Kywqpypbfy9850 [place] [address]Dr. Yuki Diaz Urea nitrogen [Mass/Vol] 48.0 mg/dL Critically high 7.0-18.0 [facility] Comment on above: Performed By: #### CMP ####[facility] Dlskuugejm1418 [place] [address]Dr. Yuki Diaz Urea nitrogen/Creatin ine [Mass ratio] 18.6 mg/mg Normal [facility] Comment on above: Performed By: #### CMP ####[facility] ital Qcqhrklatc5638 [place] [address]Dr. Yuki Diaz PROF 14(COMP METB)on 022 Albumin [Mass/Vol] 3.2 g/dL Critically low 3.4-5.0 [facility] Comment on above: Performed By: #### CMP ####[facility] Imkzwjpjcn4596 [place] [address]Dr. Yuki Diaz Albumin/Globulin [Mass ratio] 0.9 {ratio} Normal [facility] Comment on above: Performed By: #### CMP ####[facility] Sdpazcelgt1338 [place] [address]Dr. Yuki Diaz ALP [Catalytic activity/Vol] 89 U/L Normal 46-116 [facility] Comment on above: Performed By: #### CMP ####[facility] Morqfqoobo4844 [place] [address]Dr. Yuki Diaz ALT [Catalytic activity/Vol] 113 U/L Critically high 16-63 [facility] Comment on above: Performed By: #### CMP ####[facility] Kosebbkduh3366 [place] [address]Dr. Yuki Diaz Anion gap [Moles/Vol] 10.8 mmol/L Normal [facility] Comment on above: Performed By: #### CMP ####[facility] Mlxljxsdtw2286 [place] [address]Dr. Yuki Diaz AST [Catalytic activity/Vol] 32 U/L Normal 15-37 [facility] Comment on above: Performed By: #### CMP ####[facility] Qenwhgjcvn8809 [place] [address]Dr. Yuki Diaz Bilirubin [Mass/Vol] 0.7 mg/dL Normal 0.2-1.0 [facility] Comment on above: Performed By: #### CMP ####[facility] Bpdejzusqy2406 [place] [address]Dr. Yuki Diaz Calcium [Mass/Vol] 8.8 mg/dL Normal 8.5-10.1 [facility] Comment on above: Performed By: #### CMP ####[facility] Gtistndagf1256 [place] [address]Dr. Yuki Diaz Chloride [Moles/Vol] 106 mmol/L Normal 98-107 [facility] Comment on above: Performed By: #### CMP ####[facility] Heqfqwycal8174 [place] [address]Dr. Yuki Diaz CO2 [Moles/Vol] 30.4 mmol/L Normal 21.0-32.0 [facility] Comment on above: Performed By: #### CMP ####[facility] Yltikrjxor4853 [place] [phone]. Yuki Diaz Creatinine [Mass/Vol] 2.54 mg/dL Critically high 0.70-1.30 [facility] Comment on above: Performed By: #### CMP ####[facility] Nidfpnasow1369 [place] [phone]. Yuki Diaz EGFR-AF EGYPTIAN 30 mL/min/1.73m2 Critically low >=60 [facility] Comment on above: Performed By: #### CMP ####[facility] Xiedoylqcq6382 [place] [address]Dr. Yuki Diaz EGFR-NON AF EGYPTIAN 25 mL/min/1.73m2 Critically low >=60 [facility] Comment on above: Performed By: #### CMP ####[facility] Uwojkvmtja3869 [place] [address]Dr. Yuki Diaz Globulin (S) [Mass/Vol] 3.4 g/dL Normal [facility] Comment on above: Performed By: #### CMP ####[facility] Bkjxcdlsqn6199 [place] [address]Dr. Yuki Diaz Glucose [Mass/Vol] 114 mg/dL Critically high 74-106 [facility] Comment on above: Performed By: #### CMP ####[facility] Ckcaibgdov1527 [place] [address]Dr. Yuki Diaz Potassium [Moles/Vol] 4.2 mmol/L Normal 3.5-5.1 [facility] Comment on above: Performed By: #### CMP ####[facility] Mquktkdvig3031 [place] [address]Dr. Yuki Diaz Protein [Mass/Vol] 6.6 g/dL Normal 6.4-8.2 [facility] Comment on above: Performed By: #### CMP ####[facility] Dkbrgcfhxr7518 [place] [address]Dr. Yuki Diaz Sodium [Moles/Vol] 143 mmol/L Normal 136-145 [facility] Comment on above: Performed By: #### CMP ####[facility] Hgozythzaz2099 [place] [address]Dr. Yuki Diaz Urea nitrogen [Mass/Vol] 65.0 mg/dL Critically high 7.0-18.0 [facility] Comment on above: Performed By: #### CMP ####[facility] Cqssuglpoy0663 [place] [address]Dr. Yuki Diaz Urea nitrogen/Creatin ine [Mass ratio] 25.6 mg/mg Normal [facility] Comment on above: Performed By: #### CMP ####[facility] Nkcusgtbtd3698 [place] [address]Dr. Yuki Diaz XR HIP RT INJon 04-01-2022 XR HIP RT INJ Normal [facility] PROF 14(COMP METB)on 022 Albumin [Mass/Vol] 3.6 g/dL Normal 3.4-5.0 [facility] Comment on above: Performed By: #### CMP ####[facility] Pkrwlfimnu2211 [place] [address]Dr. Yuki Diaz Albumin/Globulin [Mass ratio] 0.9 {ratio} Normal [facility] Comment on above: Performed By: #### CMP ####[facility] Ivuslcntjj8342 [place] [address]Dr. Yuki Diaz ALP [Catalytic activity/Vol] 91 U/L Normal 46-116 [facility] Comment on above: Performed By: #### CMP ####[facility] Jzbommhznu4982 [place] [address]Dr. Yuki Diaz ALT [Catalytic activity/Vol] 19 U/L Normal 16-63 [facility] Comment on above: Performed By: #### CMP ####[facility] Hagtvcvowz0570 [place] [address]Dr. Yuki Diaz Anion gap [Moles/Vol] 12.3 mmol/L Normal [facility] Comment on above: Performed By: #### CMP ####[facility] Njjklkqfsn7760 [place] [address]Dr. Yuki Diaz AST [Catalytic activity/Vol] 14 U/L Critically low 15-37 [facility] Comment on above: Performed By: #### CMP ####[facility] Uajmnebhut5958 [place] [phone]. Yuki Diaz Bilirubin [Mass/Vol] 0.7 mg/dL Normal 0.2-1.0 [facility] Comment on above: Performed By: #### CMP ####[facility] Ojgeyptifc9420 [place] [phone]. Yuki Diaz Calcium [Mass/Vol] 8.9 mg/dL Normal 8.5-10.1 [facility] Comment on above: Performed By: #### CMP ####[facility] Owgjgxfmvy9952 [place] [address]Dr. Yuki Diaz Chloride [Moles/Vol] 102 mmol/L Normal 98-107 [facility] Comment on above: Performed By: #### CMP ####[facility] Qzhlfjdusm2229 [place] [address]Dr. Yuki Diaz CO2 [Moles/Vol] 30.4 mmol/L Normal 21.0-32.0 [facility] Comment on above: Performed By: #### CMP ####[facility] Rlqtmsaebe8293 [place] [address]Dr. Yuki Diaz Creatinine [Mass/Vol] 2.13 mg/dL Critically high 0.70-1.30 [facility] Comment on above: Performed By: #### CMP ####[facility] Ldtnttxsyo2764 [place] [address]Dr. Yuki Joe EGFR-AF EGYPTIAN 37 mL/min/1.73m2 Critically low >=60 [facility] Comment on above: Performed By: #### CMP ####[facility] Sioevopzgv3005 [place] [phone]. Yuki Joe EGFR-NON AF EGYPTIAN 30 mL/min/1.73m2 Critically low >=60 [facility] Comment on above: Performed By: #### CMP ####[facility] Wighvnigek1667 [place] [phone]. Yuki Joe Globulin (S) [Mass/Vol] 3.9 g/dL Normal [facility] Comment on above: Performed By: #### CMP ####[facility] Epxyohylhp8077 [place] [address]Dr. Yuki Diaz Glucose [Mass/Vol] 146 mg/dL Critically high 74-106 [facility] Comment on above: Performed By: #### CMP ####[facility] Auxzgcjrsy9950 [place] [address]Dr. Yuki Diaz Potassium [Moles/Vol] 3.7 mmol/L Normal 3.5-5.1 [facility] Comment on above: Performed By: #### CMP ####[facility] Oaomvwbmmh9527 [place] [address]Dr. Yuki Diaz Protein [Mass/Vol] 7.5 g/dL Normal 6.4-8.2 [facility] Comment on above: Performed By: #### CMP ####[facility] Tfoetepqrf6802 [place] [address]Dr. Yuki Diaz Sodium [Moles/Vol] 141 mmol/L Normal 136-145 [facility] Comment on above: Performed By: #### CMP ####[facility] Weefnawuxx2161 [place] [address]Dr. Yuki Diaz Urea nitrogen [Mass/Vol] 39.0 mg/dL Critically high 7.0-18.0 [facility] Comment on above: Performed By: #### CMP ####[facility] ital Ttbaddljyy9911 [place] [address]Dr. Yuik Diaz Urea nitrogen/Creatin ine [Mass ratio] 18.3 mg/mg Normal [facility] Comment on above: Performed By: #### CMP ####[facility] Cmrremyxpl6394 [place] [address]DrBebo Diaz PROF 14(COMP METB)on 022 Albumin [Mass/Vol] 3.3 g/dL Critically low 3.4-5.0 [facility] Comment on above: Performed By: #### CMP ####[facility] Xowyybawes5638 [place] [address]Dr. Yuki Diaz Albumin/Globulin [Mass ratio] 0.9 {ratio} Normal [facility] Comment on above: Performed By: #### CMP ####[facility] Rqmjilrfzq0395 [place] [address]Dr. Yuki Diaz ALP [Catalytic activity/Vol] 78 U/L Normal 46-116 [facility] Comment on above: Performed By: #### CMP ####[facility] Rzkyhhtfmu2060 [place] [address]Dr. Yuki Diaz ALT [Catalytic activity/Vol] 19 U/L Normal 16-63 [facility] Comment on above: Performed By: #### CMP ####[facility] Lknwlvhjjy6403 [place] [address]Dr. Yuki Diaz Anion gap [Moles/Vol] 12.3 mmol/L Normal [facility] Comment on above: Performed By: #### CMP ####[facility] Xehoxhyrfr3912 [place] [address]Dr. Yuki Diaz AST [Catalytic activity/Vol] 13 U/L Critically low 15-37 [facility] Comment on above: Performed By: #### CMP ####[facility] Kwelqhodxa5435 [place] [address]Dr. Yuki Diaz Bilirubin [Mass/Vol] 0.8 mg/dL Normal 0.2-1.0 [facility] Comment on above: Performed By: #### CMP ####[facility] Isjfopdsak5122 [place] [address]Dr. Yuki Diaz Calcium [Mass/Vol] 8.8 mg/dL Normal 8.5-10.1 [facility] Comment on above: Performed By: #### CMP ####[facility] Twvskfnsxn9417 [place] [address]Dr. Yuki Diaz Chloride [Moles/Vol] 105 mmol/L Normal 98-107 [facility] Comment on above: Performed By: #### CMP ####[facility] Jqbmsrfpup9757 [place] [address]Dr. Yuki Diaz Creatinine [Mass/Vol] 2.44 mg/dL Critically high 0.70-1.30 [facility] Comment on above: Performed By: #### CMP ####[facility] Jrnnafcwxs6239 [place] [phone]. Yuki Diaz EGFR-AF EGYPTIAN 31 mL/min/1.73m2 Critically low >=60 [facility] Comment on above: Performed By: #### CMP ####[facility] Xsjscpwrff7153 [place] [phone]. Yuki Diaz EGFR-NON AF EGYPTIAN 26 mL/min/1.73m2 Critically low >=60 [facility] Comment on above: Performed By: #### CMP ####[facility] Wdpckcvjtx7705 [place] [address]Dr. Yuki Diaz Globulin (S) [Mass/Vol] 3.7 g/dL Normal [facility] Comment on above: Performed By: #### CMP ####[facility] Qnyqvwdryo2265 [place] [address]Dr. Yuki Joe Glucose [Mass/Vol] 196 mg/dL Critically high 74-106 [facility] Comment on above: Performed By: #### CMP ####[facility] Lrhjjreadr6019 [place] [address]Dr. Yuki Joe Potassium [Moles/Vol] 4.6 mmol/L Normal 3.5-5.1 [facility] Comment on above: Performed By: #### CMP ####[facility] Dijdhkheit1742 [place] [address]Dr. Yuki Diaz Protein [Mass/Vol] 7.0 g/dL Normal 6.4-8.2 [facility] Comment on above: Performed By: #### CMP ####[facility] Ezrqbpdbgy2456 [place] [address]Dr. Yuki Diaz Sodium [Moles/Vol] 144 mmol/L Normal 136-145 [facility] Comment on above: Performed By: #### CMP ####[facility] Kcmxsmbvtm6281 [place] [address]Dr. Yuki Diaz Urea nitrogen [Mass/Vol] 44.0 mg/dL Critically high 7.0-18.0 [facility] Comment on above: Performed By: #### CMP ####[facility] Zuxahmkqtl9897 [place] [address]Dr. Yuki Diaz Urea nitrogen/Creatin ine [Mass ratio] 18.0 mg/mg Normal [facility] Comment on above: Performed By: #### CMP ####[facility] Komtuzslhv4266 [place] [address]Dr. Yuki Diaz PROF 14(COMP METB)on 022 Albumin [Mass/Vol] 3.2 g/dL Critically low 3.4-5.0 [facility] Comment on above: Performed By: #### CMP ####[facility] Bdipagiblc1591 [place] [address]Dr. Yuki Diaz Albumin/Globulin [Mass ratio] 0.9 {ratio} Normal [facility] Comment on above: Performed By: #### CMP ####[facility] Qzswflqqqj7305 [place] [address]Dr. Yuki Diaz ALP [Catalytic activity/Vol] 75 U/L Normal 46-116 [facility] Comment on above: Performed By: #### CMP ####[facility] Wfuifecnkb9875 [place] [address]Dr. Yuki Diaz ALT [Catalytic activity/Vol] 14 U/L Critically low 16-63 [facility] Comment on above: Performed By: #### CMP ####[facility] Bjjdehdjwe7656 [place] [address]Dr. Yuki Diaz Anion gap [Moles/Vol] 12.6 mmol/L Normal [facility] Comment on above: Performed By: #### CMP ####[facility] Xxktwxhqey3928 [place] [address]Dr. Yuki Diaz AST [Catalytic activity/Vol] 9 U/L Critically low 15-37 [facility] Comment on above: Performed By: #### CMP ####[facility] Wjhvlecvlt6396 [place] [address]Dr. Yuki Diaz Bilirubin [Mass/Vol] 0.7 mg/dL Normal 0.2-1.0 [facility] Comment on above: Performed By: #### CMP ####[facility] Icstqdqadv7468 [place] [address]Dr. Yuki Diaz Calcium [Mass/Vol] 8.6 mg/dL Normal 8.5-10.1 [facility] Comment on above: Performed By: #### CMP ####[facility] Mrubmysiox8293 [place] [address]Dr. Yuki Diaz Chloride [Moles/Vol] 107 mmol/L Normal 98-107 [facility] Comment on above: Performed By: #### CMP ####[facility] Sjguygaunt2324 [place] [address]Dr. Yuki Diaz CO2 [Moles/Vol] 28.3 mmol/L Normal 21.0-32.0 [facility] Comment on above: Performed By: #### CMP ####[facility] Jjpzshtngh6185 [place] [address]Dr. Yuki Joe Creatinine [Mass/Vol] 2.52 mg/dL Critically high 0.70-1.30 [facility] Comment on above: Performed By: #### CMP ####[facility] Nglydkwayz0449 [place] [address]Dr. Yuki Diaz EGFR-AF EGYPTIAN 30 mL/min/1.73m2 Critically low >=60 [facility] Comment on above: Performed By: #### CMP ####[facility] Anhmjoftin7988 [place] [address]Dr. Yuki Joe EGFR-NON AF EGYPTIAN 25 mL/min/1.73m2 Critically low >=60 [facility] Comment on above: Performed By: #### CMP ####[facility] Nidtgyjttc0216 [place] [address]Dr. Yuki Joe Globulin (S) [Mass/Vol] 3.7 g/dL Normal [facility] Comment on above: Performed By: #### CMP ####[facility] Submmtianr7888 [place] [address]Dr. Yuki Diaz Glucose [Mass/Vol] 152 mg/dL Critically high 74-106 [facility] Comment on above: Performed By: #### CMP ####[facility] Opwmkedgac4627 [place] [address]Dr. Yuki Diaz Potassium [Moles/Vol] 3.9 mmol/L Normal 3.5-5.1 [facility] Comment on above: Performed By: #### CMP ####[facility] Fatxniegzn0309 [place] [phone]. Yuki Diaz Protein [Mass/Vol] 6.9 g/dL Normal 6.4-8.2 [facility] Comment on above: Performed By: #### CMP ####[facility] Sjdxddyfdr1664 [place] [address]Dr. Yuki Diaz Sodium [Moles/Vol] 144 mmol/L Normal 136-145 [facility] Comment on above: Performed By: #### CMP ####[facility] Qjactqrusv4181 [place] [address]Dr. Yuki Diaz Urea nitrogen [Mass/Vol] 50.0 mg/dL Critically high 7.0-18.0 [facility] Comment on above: Performed By: #### CMP ####[facility] Jtsypsgtph4740 [place] [address]Dr. Yuki Diaz Urea nitrogen/Creatin ine [Mass ratio] 19.8 mg/mg Normal [facility] Comment on above: Performed By: #### CMP ####[facility] Zncanhwthq9841 [place] [address]Dr. Yuki Diaz PROF 14(COMP METB)on 022 Albumin [Mass/Vol] 3.1 g/dL Critically low 3.4-5.0 [facility] Comment on above: Performed By: #### CMP ####[facility] Juzhvxlezd5431 [place] [address]Dr. Yuki Diaz Albumin/Globulin [Mass ratio] 0.7 {ratio} Normal [facility] Comment on above: Performed By: #### CMP ####[facility] Vrlwgaputa1787 [place] [address]Dr. Yuki Diaz ALP [Catalytic activity/Vol] 101 U/L Normal 46-116 [facility] Comment on above: Performed By: #### CMP ####[facility] Thyuxnonaj6124 [place] [address]Dr. Yuki Diaz ALT [Catalytic activity/Vol] 18 U/L Normal 16-63 [facility] Comment on above: Performed By: #### CMP ####[facility] Lsqoolyeqq6567 [place] [phone]. Yuki Diaz Anion gap [Moles/Vol] 11.9 mmol/L Normal [facility] Comment on above: Performed By: #### CMP ####[facility] Nznnjmfnzs0790 [place] [address]Dr. Yuki Diaz AST [Catalytic activity/Vol] 11 U/L Critically low 15-37 [facility] Comment on above: Performed By: #### CMP ####[facility] Ozxjqzmihu6250 [place] [address]Dr. Yuki Diaz Bilirubin [Mass/Vol] 0.5 mg/dL Normal 0.2-1.0 [facility] Comment on above: Performed By: #### CMP ####[facility] Ewnobhyzti4088 [place] [address]Dr. Yuki Diaz Calcium [Mass/Vol] 9.0 mg/dL Normal 8.5-10.1 [facility] Comment on above: Performed By: #### CMP ####[facility] Aqpmetgmck8807 [place] [address]Dr. Yuki Diaz Chloride [Moles/Vol] 103 mmol/L Normal 98-107 [facility] Comment on above: Performed By: #### CMP ####[facility] Imschntlvb2008 [place] [phone]. uYki Diaz CO2 [Moles/Vol] 29.8 mmol/L Normal 21.0-32.0 [facility] Comment on above: Performed By: #### CMP ####[facility] Rzkdsfsmsj2967 [place] [address]Dr. Yuki Joe Creatinine [Mass/Vol] 3.03 mg/dL Critically high 0.70-1.30 [facility] Comment on above: Performed By: #### CMP ####[facility] Rhxhfycccg3177 [place] [address]Dr. Yuki Diaz EGFR-AF EGYPTIAN 24 mL/min/1.73m2 Critically low >=60 [facility] Comment on above: Performed By: #### CMP ####[facility] Xpcjsjibkb8024 [place] [phone]. Yuki Diaz EGFR-NON AF EGYPTIAN 20 mL/min/1.73m2 Critically low >=60 [facility] Comment on above: Performed By: #### CMP ####[facility] Dievtioroy3984 [place] [address]Dr. Yuki Diaz Globulin (S) [Mass/Vol] 4.4 g/dL Normal [facility] Comment on above: Performed By: #### CMP ####[facility] Hgwockdaer9524 [place] [address]Dr. Yuki Joe Glucose [Mass/Vol] 260 mg/dL Critically high 74-106 [facility] Comment on above: Performed By: #### CMP ####[facility] Nxllikluya6504 [place] [address]Dr. Yuki Joe Potassium [Moles/Vol] 4.7 mmol/L Normal 3.5-5.1 [facility] Comment on above: Performed By: #### CMP ####[facility] Mhbirbesbs0679 [place] [address]Dr. Yuki Diaz Protein [Mass/Vol] 7.5 g/dL Normal 6.4-8.2 [facility] Comment on above: Performed By: #### CMP ####[facility] Rnjvhsmivm6454 [place] [address]Dr. Yuki Diaz Sodium [Moles/Vol] 140 mmol/L Normal 136-145 [facility] Comment on above: Performed By: #### CMP ####[facility] Wwubmqrpfd0768 [place] [address]Dr. Yuki Diaz Urea nitrogen [Mass/Vol] 50.0 mg/dL Critically high 7.0-18.0 [facility] Comment on above: Performed By: #### CMP ####[facility] Zudnwrttoo4288 [place], [place] [address]YwBebo Diaz Urea nitrogen/Creatin ine [Mass ratio] 16.5 mg/mg Normal [facility] Comment on above: Performed By: #### CMP ####[facility] Ghoiegdjgh6349 [place], [place] [address]VeBebo Diaz Screenson 02-18-2022 Screens [id number]:127 Normal [facility] Ambulatory Visit Summaryon 0 02-15-2022 Ambulatory Visit Summary SHENG BAUER :1940 Visit Date:02/15/2022 Ambulatory Visit Instructions Your Diagnosis Elevated PSA BPH associated with nocturia Nocturia Tests Performed Urnls Dip Stick Auto w/o Microscopy POC 05404 Your Care Team Attending Physician - César [...] Gordon Jr., MD Where: [facility] Patient Educationon 02-16-20 Patient Education [...] including vitamins, herbs, eye drops, creams, and jgql-onu-wcgyleb medicines. This also includes: ? Medicines to [...] 08/26/2005 Document Revised: 07/06/2018 Document Reviewed: 04/30/2018 [email or web address] Patient Education ? 2019 [email or web address] [facility] Urology Office/Clinic Noteon 02-15-2022 Urology Office/Clinic Note [...] Urnls Dip Stick Auto w/o Microscopy POC 03917 2. BPH associated with nocturia (N40.1: Benign [...] months [facility] [address] [place] [address]- Additional Instructions: w/ psa Patient Education Prostate-Specific [...] so unsure (more content not included)... Normal [facility] Comment on above: Result Comment: Electronically Signed By : Evan Ochoa MD, César Vega\.br\Date and Time Signed: 02/15/22 10:42 EDT\.br\Electronically Co-Signed By: Gretel Bhagat\.br\Date and Time Co-Signed: 02/15/22 10:35 EDT PROF 14(COMP METB)on 022 Albumin [Mass/Vol] 3.3 g/dL Critically low 3.4-5.0 [facility] Comment on above: Performed By: #### CMP ####[facility] [address]wt[address]quwcgb[address] [place] [address]Dr. Yuki Diaz Albumin/Globulin [Mass ratio] 0.8 {ratio} Normal [facility] Comment on above: Performed By: #### CMP ####[facility] Rffsoqtdjq8456 [place] [address]Dr. Yuki Diaz ALP [Catalytic activity/Vol] 111 U/L Normal 46-116 [facility] Comment on above: Performed By: #### CMP ####[facility] ital Ewxgcgjkjc9497 [place] [address]Dr. Yuki Diaz ALT [Catalytic activity/Vol] 22 U/L Normal 16-63 [facility] Comment on above: Performed By: #### CMP ####[facility] ital Eckrzclohr3784 [place] [address]Dr. Yuki Diaz Anion gap [Moles/Vol] 9.0 mmol/L Normal [facility] Comment on above: Performed By: #### CMP ####[facility] ital Buyxcwcmvd0324 [place] [address]Dr. Yuki Diaz AST [Catalytic activity/Vol] 10 U/L Critically low 15-37 [facility] Comment on above: Performed By: #### CMP ####[facility] ital Zxjbdmjxea9292 [place] [address]Dr. Yuki Diaz Bilirubin [Mass/Vol] 1.0 mg/dL Normal 0.2-1.0 [facility] Comment on above: Performed By: #### CMP ####[facility] ital Yfcmuwgocs[address] [place], [place] [address]Dr. Yuki Diaz Calcium [Mass/Vol] 9.1 mg/dL Normal 8.5-10.1 [facility] Comment on above: Performed By: #### CMP ####[facility] Fgzfhxonds2627 [place] [address]Dr. Yuki Diaz Chloride [Moles/Vol] 103 mmol/L Normal 98-107 [facility] Comment on above: Performed By: #### CMP ####[facility] Qadetpbjpi0052 [place] [address]Dr. Yuki Diaz CO2 [Moles/Vol] 32.8 mmol/L Critically high 21.0-32.0 [facility] Comment on above: Performed By: #### CMP ####[facility] Hmvhnmitpg[address] [place], [place] [address]Dr. Yuki Diaz Creatinine [Mass/Vol] 2.55 mg/dL Critically high 0.70-1.30 [facility] Comment on above: Performed By: #### CMP ####[facility] Sdzeemprat1884 [place] [address]Dr. Yuki Diaz EGFR-AF EGYPTIAN 30 mL/min/1.73m2 Critically low >=60 [facility] Comment on above: Performed By: #### CMP ####[facility] Akupbtoklp1326 [place] [address]Dr. Yuki Diaz EGFR-NON AF EGYPTIAN 24 mL/min/1.73m2 Critically low >=60 [facility] Comment on above: Performed By: #### CMP ####[facility] Snvqcwlvuq2999 [place] [address]Dr. Yuki Diaz Globulin (S) [Mass/Vol] 4.0 g/dL Normal [facility] Comment on above: Performed By: #### CMP ####[facility] Ouhhhfdhds0321 [place] [address]Dr. Yuki Diaz Glucose [Mass/Vol] 154 mg/dL Critically high 74-106 [facility] Comment on above: Performed By: #### CMP ####[facility] Zsupucotis8515 [place] [address]Dr. Yuki Diaz Potassium [Moles/Vol] 3.8 mmol/L Normal 3.5-5.1 [facility] Comment on above: Performed By: #### CMP ####[facility] Neqlbejopf1240 [place] [address]Dr. Yuki Diaz Protein [Mass/Vol] 7.3 g/dL Normal 6.4-8.2 [facility] Comment on above: Performed By: #### CMP ####[facility] Fprakmzepv1823 [place] [address]Dr. Yuki Diaz Sodium [Moles/Vol] 141 mmol/L Normal 136-145 [facility] Comment on above: Performed By: #### CMP ####[facility] Yjhuaqlowq3223 [place] [address]Dr. Yuki Diaz Urea nitrogen [Mass/Vol] 35.0 mg/dL Critically high 7.0-18.0 [facility] Comment on above: Performed By: #### CMP ####[facility] ital Tztajyufjb8383 [place] [address]Dr. Yuki Diaz Urea nitrogen/Creatin ine [Mass ratio] 13.7 mg/mg Normal [facility] Comment on above: Performed By: #### CMP ####[facility] ital Bpiyojjbvy5777 [place] [address]Dr. Yuki Diaz PROF 14(COMP METB)on 022 Albumin [Mass/Vol] 2.9 g/dL Critically low 3.4-5.0 [facility] Comment on above: Performed By: #### CMP ####[facility] ital Kjlznrlyph7799 [place] [address]Dr. Yuki Diaz Albumin/Globulin [Mass ratio] 0.8 {ratio} Normal [facility] Comment on above: Performed By: #### CMP ####[facility] ital Pzpohmwrml6934 [place] [address]Dr. Yuki Diaz ALP [Catalytic activity/Vol] 96 U/L Normal 46-116 [facility] Comment on above: Performed By: #### CMP ####[facility] ital Jagibkvykz8079 [place] [address]Dr. Yuki Diaz ALT [Catalytic activity/Vol] 23 U/L Normal 16-63 [facility] Comment on above: Performed By: #### CMP ####[facility] ital Sxsxyamslf5885 [place] [address]Dr. Yuki Diaz Anion gap [Moles/Vol] 11.6 mmol/L Normal [facility] Comment on above: Performed By: #### CMP ####[facility] ital Bmhyxzwrxx2086 [place] [address]Dr. Yuki Diaz AST [Catalytic activity/Vol] 12 U/L Critically low 15-37 [facility] Comment on above: Performed By: #### CMP ####[facility] ital Htvcafownw2120 [place] [address]Dr. Yuki Diaz Bilirubin [Mass/Vol] 0.7 mg/dL Normal 0.2-1.0 [facility] Comment on above: Performed By: #### CMP ####[facility] ital Hlhntmwslj0020 [place] [address]Dr. Yuki Diaz Calcium [Mass/Vol] 8.7 mg/dL Normal 8.5-10.1 [facility] Comment on above: Performed By: #### CMP ####[facility] Bdqkhxtrch3312 [place] [address]Dr. Yuki Diaz Chloride [Moles/Vol] 103 mmol/L Normal 98-107 [facility] Comment on above: Performed By: #### CMP ####[facility] ital Cvtfwoodjh2430 [place] [address]Dr. Yuki Diaz CO2 [Moles/Vol] 32.5 mmol/L Critically high 21.0-32.0 [facility] Comment on above: Performed By: #### CMP ####[facility] ital Eggxrwwsqq9785 [place] [address]Dr. Yuki Joe Creatinine [Mass/Vol] 2.35 mg/dL Critically high 0.70-1.30 [facility] Comment on above: Performed By: #### CMP ####[facility] ital Gxvvgcarlb104[address] [place], [place] [address]Dr. Yuki Diaz EGFR-AF EGYPTIAN 33 mL/min/1.73m2 Critically low >=60 [facility] Comment on above: Performed By: #### CMP ####[facility] ital Ymkerswulv7206[address] [place], [place] [address]Dr. Yuki Joe EGFR-NON AF EGYPTIAN 27 mL/min/1.73m2 Critically low >=60 [facility] Comment on above: Performed By: #### CMP ####[facility] ital Akgoupiprh3950 [place] [address]Dr. Yuki Diaz Globulin (S) [Mass/Vol] 3.6 g/dL Normal [facility] Comment on above: Performed By: #### CMP ####[facility] ital Nxvtcodipc9807 [place] [address]Dr. Yuki Diaz Glucose [Mass/Vol] 206 mg/dL Critically high 74-106 [facility] Comment on above: Performed By: #### CMP ####[facility] ital Xqgnibjvdx4058 [place] [address]Dr. Yuki Diaz Potassium [Moles/Vol] 4.1 mmol/L Normal 3.5-5.1 [facility] Comment on above: Performed By: #### CMP ####[facility] ital Iyvyftoncq15[address] [place], [place] [address]Dr. Yuki Diaz Protein [Mass/Vol] 6.5 g/dL Normal 6.4-8.2 [facility] Comment on above: Performed By: #### CMP ####[facility] ital Kkdzrxlgui108[address] [place], [place] [address]Dr. Yuki Diaz Sodium [Moles/Vol] 143 mmol/L Normal 136-145 [facility] Comment on above: Performed By: #### CMP ####[facility] ital Llhpdiwbkx2036[address] [place], [place] [address]Dr. Yuki Diaz Urea nitrogen [Mass/Vol] 34.0 mg/dL Critically high 7.0-18.0 [facility] Comment on above: Performed By: #### CMP ####[facility] Nvbznkakff215[address] [place], [place] [address]Dr. Yuki Diaz Urea nitrogen/Creatin ine [Mass ratio] 14.5 mg/mg Normal [facility] Comment on above: Performed By: #### CMP ####[facility] ital Tosgwbquwt5605[address] [place], [place] [address]Dr. Yuki Diaz BNPon 02-03-2022 Natriuretic peptide B (Bld) [Mass/Vol] 3216.0 pg/mL Critically high <=1,800.0 [facility] Comment on above: Result Comment: repeated Performed By: #### B PHOTOENGRAVING ETCHER ####[facility] Grjgfksfmr87[address] [place], [place] [address]Dr. Yuki Diaz PROF 14(COMP METB)on 022 Albumin [Mass/Vol] 3.0 g/dL Critically low 3.4-5.0 [facility] Comment on above: Performed By: #### CMP ####[facility] Qclolfyjrg4731 [place] [address]Dr. Yuki Diaz Albumin/Globulin [Mass ratio] 0.8 {ratio} Normal [facility] Comment on above: Performed By: #### CMP ####[facility] Vmeesbvxez4258 [place] [address]Dr. Yuki Diaz ALP [Catalytic activity/Vol] 104 U/L Normal 46-116 [facility] Comment on above: Performed By: #### CMP ####[facility] ital Wsebvgoiee7238 [place] [address]Dr. Yuki Diaz ALT [Catalytic activity/Vol] 32 U/L Normal 16-63 [facility] Comment on above: Performed By: #### CMP ####[facility] ital Tvdkqoyluh0056 [place] [address]Dr. Yuki Diaz Anion gap [Moles/Vol] 9.3 mmol/L Normal [facility] Comment on above: Performed By: #### CMP ####[facility] ital Mewgijtvtx29[address] [place], [place] [address]Dr. Yuki Diaz AST [Catalytic activity/Vol] 15 U/L Normal 15-37 [facility] Comment on above: Performed By: #### CMP ####[facility] Gfzgbqhqpj9515 [place] [address]Dr. Monsealyssa Diaz Bilirubin [Mass/Vol] 0.9 mg/dL Normal 0.2-1.0 [facility] Comment on above: Performed By: #### CMP ####[facility] Jeulltbqlm1743 [place] [address]Dr. Monsealyssa Diaz Calcium [Mass/Vol] 8.6 mg/dL Normal 8.5-10.1 [facility] Comment on above: Performed By: #### CMP ####[facility] Bfutwiguiv6761 [place] [address]Dr. Yuki Diaz Chloride [Moles/Vol] 104 mmol/L Normal 98-107 [facility] Comment on above: Performed By: #### CMP ####[facility] ital Qpeuvzzycj01[address] [place], [place] [address]Dr. Yuki Joe CO2 [Moles/Vol] 35.9 mmol/L Critically high 21.0-32.0 [facility] Comment on above: Performed By: #### CMP ####[facility] ital Zwpziioejv3594 [place] [address]Dr. Yuki Diaz Creatinine [Mass/Vol] 1.98 mg/dL Critically high 0.70-1.30 [facility] Comment on above: Performed By: #### CMP ####[facility] Simwmhbmay3165 [place] [address]Dr. Yuki Joe EGFR-AF EGYPTIAN 40 mL/min/1.73m2 Critically low >=60 [facility] Comment on above: Performed By: #### CMP ####[facility] Jopyinjzjl9428 [place] [address]Dr. Monsealyssa Joe EGFR-NON AF EGYPTIAN 33 mL/min/1.73m2 Critically low >=60 [facility] Comment on above: Performed By: #### CMP ####[facility] Ntfnjfkzzf9561 [place] [address]Dr. Yuki Diaz Globulin (S) [Mass/Vol] 3.9 g/dL Normal [facility] Comment on above: Performed By: #### CMP ####[facility] Okpvdodzjm0570 [place] [address]Dr. Yuki Joe Glucose [Mass/Vol] 124 mg/dL Critically high 74-106 [facility] Comment on above: Performed By: #### CMP ####[facility] Gzoyvxcbtq0962 [place] [address]Dr. Yuki Joe Potassium [Moles/Vol] 4.2 mmol/L Normal 3.5-5.1 [facility] Comment on above: Performed By: #### CMP ####[facility] Qudficnaei9561 [place] [address]Dr. Yuki Diaz Protein [Mass/Vol] 6.9 g/dL Normal 6.4-8.2 [facility] Comment on above: Performed By: #### CMP ####[facility] Vszbwijpcw8246 [place] [address]Dr. Yuki Diaz Sodium [Moles/Vol] 145 mmol/L Normal 136-145 [facility] Comment on above: Performed By: #### CMP ####[facility] Rkoasrscmd7275 [place] [address]Dr. Yuki Diaz Urea nitrogen [Mass/Vol] 27.0 mg/dL Critically high 7.0-18.0 [facility] Comment on above: Performed By: #### CMP ####[facility] Iyzpbbnsgv3484 [place] [address]Dr. Yuki Diaz Urea nitrogen/Creatin ine [Mass ratio] 13.6 mg/mg Normal [facility] Comment on above: Performed By: #### CMP ####[facility] Mspwpxkqny2803 [place] [address]Dr. Yuki Diaz BNPon 01-27-2022 Natriuretic peptide B (Bld) [Mass/Vol] 2090.0 pg/mL Critically high <=1,800.0 [facility] Comment on above: Performed By: #### CMP, BNP ####[facility] Rgmekretts0040 [place] [address]Dr. Yuki Diaz CBC AUTO DIFFon 01-27-2022 BASO # 0.0 103/ul Normal 0.0-0.1 [facility] Comment on above: Performed By: #### CBC ####[facility] Casahhylge0900 [place] [address]Dr. Yuki Diaz Basophils/100 WBC (Bld) 0.2 % Normal 0.2-2.0 [facility] Comment on above: Performed By: #### CBC ####[facility] Zxlroxikbv2399 [place] [address]Dr. Yuki Diaz EO # 0.2 103/ul Normal 0.0-0.7 [facility] Comment on above: Performed By: #### CBC ####[facility] Jjoafbnreq7720 [place] [address]Dr. Yuki Diaz Eosinophils/100 WBC (Bld) 1.8 % Normal 0.9-7.0 [facility] Comment on above: Performed By: #### CBC ####[facility] Tqjhvsxsvo7319 [place] [address]Dr. Yuki Diaz Erythrocyte distribution width (RBC) [Ratio] 13.4 % Normal 11.0-15.0 [facility] Comment on above: Performed By: #### CBC ####[facility] Kapgvbosjz6022 [place] [address]Dr. Yuki Diaz Hematocrit (Bld) [Volume fraction] 32.6 % Critically low 42.0-54.0 [facility] Comment on above: Performed By: #### CBC ####[facility] [address]amo[address] [place] [address]. Yuki Diaz Hemoglobin (Bld) [Mass/Vol] 10.4 g/dL Critically low 14.0-18.0 [facility] Comment on above: Performed By: #### CBC ####[facility] Kpucqjalxw[address] [place] [address]. Yuik Diaz IG # 0.03 10e3/ul Normal 0.00-0.03 [facility] Comment on above: Performed By: #### CBC ####[facility] Zwwapksiad[address] [place] [address]. Yuki Diaz IG % 0.3 % Normal 0.0-0.5 [facility] Comment on above: Performed By: #### CBC ####[facility] Tduxqngmwm13[address] [place], [place] [address]Dr. Yuki Diaz LYMPH # 1.2 103/ul Normal 1.2-3.8 [facility] Comment on above: Performed By: #### CBC ####[facility] Nvwuegwhut2468 [place] [address]Dr. Yuki Diaz Lymphocytes/100 WBC (Bld) 13.8 % Critically low 20.5-60.0 [facility] Comment on above: Performed By: #### CBC ####[facility] Iiaszpyqtg3543[address] [place], [place] [address]Dr. Yuki Diaz MANUAL DIFF REQ NO Normal [facility] Comment on above: Performed By: #### CBC ####[facility] Ddicdwtusa5356 [place] [address]Dr. Yuki Diaz MCH (RBC) [Entitic mass] 31.9 pg Normal 25.9-34.0 [facility] Comment on above: Performed By: #### CBC ####[facility] Jdeqdrrkwa7002 [place] [address]Dr. Yuki Diaz MCHC (RBC) [Mass/Vol] 31.9 g/dL Normal 29.9-35.2 [facility] Comment on above: Performed By: #### CBC ####[facility] Rbwmipjcyn9623 [place] [address]Dr. Monsealyssa Diaz MCV (RBC) [Entitic vol] 100.0 fL Critically high 80.0-94.0 [facility] Comment on above: Performed By: #### CBC ####[facility] Agmmbzpvje6963[address] [place], [place] [address]Dr. Yuki Diaz MONO # 0.9 103/ul Critically high 0.3-0.8 [facility] Comment on above: Performed By: #### CBC ####[facility] Qvfffgswtz6125 [place] [address]Dr. Monsealyssa Diaz Monocytes/100 WBC (Bld) 10.1 % Normal 1.7-12.0 [facility] Comment on above: Performed By: #### CBC ####[facility] Skccnkelyq2407 [place] [address]Dr. Yuki Diaz NEUT # 6.6 103/ul Critically high 1.4-6.5 [facility] Comment on above: Performed By: #### CBC ####[facility] Oqdwuwjycq7219 [place] [address]Dr. Monsealyssa Diaz Neutrophils/100 WBC (Bld) 73.8 % Normal 43.0-75.0 [facility] Comment on above: Performed By: #### CBC ####[facility] Wscsxhjjol6[address] [place], [place] [address]Dr. Yuki Diaz Platelet mean volume (Bld) [Entitic vol] 10.3 fL Normal 9.5-13.5 [facility] Comment on above: Performed By: #### CBC ####[facility] Mabmhuwquu9748 [place] [address]Dr. Yuki Diaz PLT 196 103/ul Normal 150-450 [facility] Comment on above: Performed By: #### CBC ####[facility] Jdyqpqppvj1165 [place] [id number]. Monsealyssa Diaz RBC 3.26 106/ul Critically low 4.70-6.10 [facility] Comment on above: Performed By: #### CBC ####[facility] Yxjoapclrw8026 [place] [id number]. Monsealyssa Joe WBC 9.0 103/ul Normal 4.0-11.0 [facility] Comment on above: Performed By: #### CBC ####[facility] Szldnvvipa9540 [place] [address]Dr. Yuki Diaz POINT OF CARE GLUCOSEon 01-06 Glucose [Mass/Vol] 155 mg/dL Critically high 74-106 [facility] Comment on above: Performed By: #### POCGLUC ####[facility] Wlwwcljbpy2994 [place] [address]Dr. Yuki Diaz Glucose [Mass/Vol] 120 mg/dL Critically high 74-106 [facility] Comment on above: Performed By: #### POCGLUC ####[facility] Falwmnuvpx6098 [place] [address]Dr. Yuki Diaz PROF 14(COMP METB)on 022 Albumin [Mass/Vol] 2.8 g/dL Critically low 3.4-5.0 [facility] Comment on above: Performed By: #### CMP, BNP ####[facility] Awuneqxihl7248 [place] [address]Dr. Yuki Diaz Albumin/Globulin [Mass ratio] 0.8 {ratio} Normal [facility] Comment on above: Performed By: #### CMP, BNP ####[facility] Wjnnxsrety0941 [place] [id number]. Yuki Diaz ALP [Catalytic activity/Vol] 96 U/L Normal 46-116 [facility] Comment on above: Performed By: #### CMP, BNP ####[facility] Epjfeepwty1217 [place] [phone]. Yuki Diaz ALT [Catalytic activity/Vol] 27 U/L Normal 16-63 [facility] Comment on above: Performed By: #### CMP, BNP ####[facility] Ttrltwpevw5382 [place] [phone]. Yuki Diaz Anion gap [Moles/Vol] 8.7 mmol/L Normal [facility] Comment on above: Performed By: #### CMP, BNP ####[facility] Wracukkifh8476 [place] [phone]. Yuki Diaz AST [Catalytic activity/Vol] 17 U/L Normal 15-37 [facility] Comment on above: Performed By: #### CMP, BNP ####[facility] Ufugdvhzcb2684 [place] [address]Dr. Yuki Diaz Bilirubin [Mass/Vol] 0.8 mg/dL Normal 0.2-1.0 [facility] Comment on above: Performed By: #### CMP, BNP ####[facility] Ffpqpkczuk8206 [place] [address]Dr. Yuki Diaz Calcium [Mass/Vol] 8.2 mg/dL Critically low 8.5-10.1 [facility] Comment on above: Performed By: #### CMP, BNP ####[facility] Czdhpchgsc5791 [place] [address]Dr. Yuki Diaz Chloride [Moles/Vol] 104 mmol/L Normal 98-107 [facility] Comment on above: Performed By: #### CMP, BNP ####[facility] Mxefkltmwp9164 [place] [phone]. Yuki Diaz CO2 [Moles/Vol] 37.3 mmol/L Critically high 21.0-32.0 [facility] Comment on above: Performed By: #### CMP, BNP ####[facility] Tgidkdodzn4624 [place] [phone]. Yuki Idaz Creatinine [Mass/Vol] 1.90 mg/dL Critically high 0.70-1.30 [facility] Comment on above: Performed By: #### CMP, BNP ####[facility] Xcvshuhnwj4433 [place] [address]Dr. Yuki Diaz EGFR-AF EGYPTIAN 42 mL/min/1.73m2 Critically low >=60 [facility] Comment on above: Performed By: #### CMP, BNP ####[facility] Cckjzbexci314[address] [place], [place] [address]Dr. Yuki Diaz EGFR-NON AF EGYPTIAN 34 mL/min/1.73m2 Critically low >=60 [facility] Comment on above: Performed By: #### CMP, BNP ####[facility] Hycyyoehrm567[address] [place], [place] [address]Dr. Yuki Diaz Globulin (S) [Mass/Vol] 3.5 g/dL Normal [facility] Comment on above: Performed By: #### CMP, BNP ####[facility] Lbfmajncsp7243[address] [place], [place] [address]Dr. Yuki Diaz Glucose [Mass/Vol] 44 mg/dL Critically low 74-106 [facility] Comment on above: Result Comment: Test Repeated. Critical Value Verified Performed By: #### C MP, BNP ####[facility] Ennabrhcwt74[address] [place], [place] [address]Dr. Yuki Diaz Potassium [Moles/Vol] 3.0 mmol/L Critically low 3.5-5.1 [facility] Comment on above: Performed By: #### CMP, BNP ####[facility] Yvryxceuut8549[address] [place], [place] [address]Dr. Yuki Diaz Protein [Mass/Vol] 6.3 g/dL Critically low 6.4-8.2 [facility] Comment on above: Performed By: #### CMP, BNP ####[facility] Fqysoquwyp9339[address] [place], [place] [address]Dr. Yuki Diaz Sodium [Moles/Vol] 147 mmol/L Critically high 136-145 [facility] Comment on above: Performed By: #### CMP, BNP ####[facility] Vknjobwlhj1033[address] [place], [place] [address]Dr. Yuki Diaz Urea nitrogen [Mass/Vol] 33.0 mg/dL Critically high 7.0-18.0 [facility] Comment on above: Performed By: #### CMP, BNP ####[facility] Tdmbrwlgfn6587[address] [place], [place] [address]Dr. Yuki Diaz Urea nitrogen/Creatin ine [Mass ratio] 17.4 mg/mg Normal [facility] Comment on above: Performed By: #### CMP, BNP ####[facility] Svtwaqzjuf[address] [place], [place] [address]Dr. Yuki Diaz BNPon 01-26-2022 Natriuretic peptide B (Bld) [Mass/Vol] 3997.0 pg/mL Critically high <=1,800.0 [facility] Comment on above: Performed By: #### BNP, CMP ####[facility] Tydbkyqtxy832[address] [place], [place] [address]Dr. Yuki Diaz CBC AUTO DIFFon 01-26-2022 BASO # 0.0 103/ul Normal 0.0-0.1 [facility] Comment on above: Performed By: #### CBC ####[facility] Nuepkavtwr514[address] [place], [place] [address]Dr. Yuki Diaz Basophils/100 WBC (Bld) 0.2 % Normal 0.2-2.0 [facility] Comment on above: Performed By: #### CBC ####[facility] ital Ttswtdcell7875[address] [place], [place] [address]Dr. Yuki Diaz EO # 0.2 103/ul Normal 0.0-0.7 [facility] Comment on above: Performed By: #### CBC ####[facility] Pfuhhuprwl6837[address] [place], [place] [address]Dr. Yuki Diaz Eosinophils/100 WBC (Bld) 1.6 % Normal 0.9-7.0 [facility] Comment on above: Performed By: #### CBC ####[facility] Wnqzvoxqyv7677[address] [place], [place] [address]Dr. Yuki Diaz Erythrocyte distribution width (RBC) [Ratio] 13.5 % Normal 11.0-15.0 [facility] Comment on above: Performed By: #### CBC ####[facility] Tasqvjmxxq5246 [place] [address]Dr. Yuki Diaz Hematocrit (Bld) [Volume fraction] 34.9 % Critically low 42.0-54.0 [facility] Comment on above: Performed By: #### CBC ####[facility] Hrjvmrbyve9625 [place] [address]Dr. Yuki Diaz Hemoglobin (Bld) [Mass/Vol] 11.3 g/dL Critically low 14.0-18.0 [facility] Comment on above: Performed By: #### CBC ####[facility] Efmwlcdhmz9254 [place] [address]Dr. Yuki Diaz IG # 0.03 10e3/ul Normal 0.00-0.03 [facility] Comment on above: Performed By: #### CBC ####[facility] Opixhsurul0079 [address] Monsealyssa Diaz IG % 0.3 % Normal 0.0-0.5 [facility] Comment on above: Performed By: #### CBC ####[facility] Urycbrvapm[address] Yuki Diaz LYMPH # 1.5 103/ul Normal 1.2-3.8 [facility] Comment on above: Performed By: #### CBC ####[facility] Pftskxdvcg5391 [place] [address]Dr. Monsealyssa Diaz Lymphocytes/100 WBC (Bld) 15.1 % Critically low 20.5-60.0 [facility] Comment on above: Performed By: #### CBC ####[facility] Komcjsxtoa0455 [place] [address]Dr. Monsealyssa Diaz MANUAL DIFF REQ NO Normal [facility] Comment on above: Performed By: #### CBC ####[facility] Ehdxwmdncc8533 [place] [address]Dr. Yuki Diaz MCH (RBC) [Entitic mass] 32.2 pg Normal 25.9-34.0 [facility] Comment on above: Performed By: #### CBC ####[facility] Qggbckyiyu3141 [place] [address]Dr. Yuki Joe MCHC (RBC) [Mass/Vol] 32.4 g/dL Normal 29.9-35.2 [facility] Comment on above: Performed By: #### CBC ####[facility] ital Pptymwfgbs3641 [place] [address]Dr. Yuki Diaz MCV (RBC) [Entitic vol] 99.4 fL Critically high 80.0-94.0 [facility] Comment on above: Performed By: #### CBC ####[facility] ital Agyvyvrskl5402 [place] [address]Dr. Yuki Diaz MONO # 1.1 103/ul Critically high 0.3-0.8 [facility] Comment on above: Performed By: #### CBC ####[facility] Obtdpoitxw9760 [place] [address]Dr. Yuki Diaz Monocytes/100 WBC (Bld) 10.7 % Normal 1.7-12.0 [facility] Comment on above: Performed By: #### CBC ####[facility] Oulicecsdi36[address] [place], [place] [address]Dr. Yuki Diaz NEUT # 7.3 103/ul Critically high 1.4-6.5 [facility] Comment on above: Performed By: #### CBC ####[facility] Dykydomzlv40[address] [place], [place] [address]Dr. Yuki Diaz Neutrophils/100 WBC (Bld) 72.1 % Normal 43.0-75.0 [facility] Comment on above: Performed By: #### CBC ####[facility] ital Osgxqiuyzz2096[address] [place], [place] [address]Dr. Yuki Diaz Platelet mean volume (Bld) [Entitic vol] 10.2 fL Normal 9.5-13.5 [facility] Comment on above: Performed By: #### CBC ####[facility] ital Pelltkicms67[address] [place], [place] [address]Dr. Yuki Diaz PLT 208 103/ul Normal 150-450 [facility] Comment on above: Performed By: #### CBC ####[facility] ital Xnxylcorlu4625 [place] [id number]. Monsealyssa Joe RBC 3.51 106/ul Critically low 4.70-6.10 [facility] Comment on above: Performed By: #### CBC ####[facility] Mjbgidmfdf7006 [place] [id number]. Yuki Diaz WBC 10.1 103/ul Normal 4.0-11.0 [facility] Comment on above: Performed By: #### CBC ####[facility] ital Ihuxxpilsp7205 [place] [id number]. Yuki Diaz POINT OF CARE GLUCOSEon 01-06 Glucose [Mass/Vol] 205 mg/dL Critically high 74-106 [facility] Comment on above: Performed By: #### POCGLUC ####[facility] Pvgdcxqlwx7669 [place] [address]Dr. Yuki Diaz Glucose [Mass/Vol] 210 mg/dL Critically high 74-106 [facility] Comment on above: Performed By: #### POCGLUC ####[facility] Rhwgmspglc0848 [place] [address]Dr. Yuki Diaz Glucose [Mass/Vol] 160 mg/dL Critically high 74-106 [facility] Comment on above: Performed By: #### POCGLUC ####[facility] Nsylfvalne2583 [place] [address]Dr. Yuki Diaz PROF 14(COMP METB)on 022 Albumin [Mass/Vol] 3.0 g/dL Critically low 3.4-5.0 [facility] Comment on above: Performed By: #### BNP, CMP ####[facility] Ykhuosencx3085 [place] [address]Dr. Yuki Diaz Albumin/Globulin [Mass ratio] 0.8 {ratio} Normal [facility] Comment on above: Performed By: #### BNP, CMP ####[facility] Vxzjdtrttw8915 [place] [address]Dr. Yuki Diaz ALP [Catalytic activity/Vol] 106 U/L Normal 46-116 [facility] Comment on above: Performed By: #### BNP, CMP ####[facility] Jzezlucaap4964 [place] [address]Dr. Yuki Diaz ALT [Catalytic activity/Vol] 33 U/L Normal 16-63 [facility] Comment on above: Performed By: #### BNP, CMP ####[facility] Tsnkkjwfes6585 [place] [address]Dr. Yuki Diaz Anion gap [Moles/Vol] 6.1 mmol/L Normal [facility] Comment on above: Performed By: #### BNP, CMP ####[facility] Hpvcqgazmw9060 [place] [address]Dr. Yuki Joe AST [Catalytic activity/Vol] 20 U/L Normal 15-37 [facility] Comment on above: Performed By: #### BNP, CMP ####[facility] Vhsuhpizum650[address] [place], [place] [address]Dr. Yuki Diaz Bilirubin [Mass/Vol] 0.8 mg/dL Normal 0.2-1.0 [facility] Comment on above: Performed By: #### BNP, CMP ####[facility] Whlpxwrakf0866[address] [place], [place] [address]Dr. Yuki Joe Calcium [Mass/Vol] 8.4 mg/dL Critically low 8.5-10.1 [facility] Comment on above: Performed By: #### BNP, CMP ####[facility] Vympbyftbp9183[address] [place], [place] [address]Dr. Yuki Diaz Chloride [Moles/Vol] 105 mmol/L Normal 98-107 [facility] Comment on above: Performed By: #### BNP, CMP ####[facility] Itcficthmi998[address] [place], [place] [address]Dr. Yuki Diaz CO2 [Moles/Vol] 40.2 mmol/L Critically high 21.0-32.0 [facility] Comment on above: Performed By: #### BNP, CMP ####[facility] Uidbrljuku3475[address] [place], [place] [address]Dr. Yuki Diaz Creatinine [Mass/Vol] 1.88 mg/dL Critically high 0.70-1.30 [facility] Comment on above: Performed By: #### BNP, CMP ####[facility] Kjjrzkyezq8313 [place] [address]Dr. Yuki Diaz EGFR-AF EGYPTIAN 42 mL/min/1.73m2 Critically low >=60 [facility] Comment on above: Performed By: #### BNP, CMP ####[facility] Wnveiaqmnz8439 [place] [address]Dr. Yuki Diaz EGFR-NON AF EGYPTIAN 35 mL/min/1.73m2 Critically low >=60 [facility] Comment on above: Performed By: #### BNP, CMP ####[facility] Xharbeuiov3977 [place] [address]Dr. Yuki Joe Globulin (S) [Mass/Vol] 3.6 g/dL Normal [facility] Comment on above: Performed By: #### BNP, CMP ####[facility] Pnfwiagivw9744[address] [place], [place] [address]Dr. Monsealyssa Joe Glucose [Mass/Vol] 62 mg/dL Critically low 74-106 [facility] Comment on above: Performed By: #### BNP, CMP ####[facility] Hblczzvumc6464[address] [place], [place] [address]Dr. Yuki Joe Potassium [Moles/Vol] 3.3 mmol/L Critically low 3.5-5.1 [facility] Comment on above: Performed By: #### BNP, CMP ####[facility] Ykbpernrwz3373[address] [place], [place] [address]Dr. Yuki Joe Protein [Mass/Vol] 6.6 g/dL Normal 6.4-8.2 [facility] Comment on above: Performed By: #### BNP, CMP ####[facility] Reeesdjepn1559[address] [place], [place] [address]Dr. Monsealyssa Joe Sodium [Moles/Vol] 148 mmol/L Critically high 136-145 [facility] Comment on above: Performed By: #### BNP, CMP ####[facility] Yumweaaeyt6813[address] [place], [place] [address]Dr. Monsealyssa Joe Urea nitrogen [Mass/Vol] 29.0 mg/dL Critically high 7.0-18.0 [facility] Comment on above: Performed By: #### BNP, CMP ####[facility] Gffznlgire3227[address] [place], [place] [address]Dr. Yuki Diaz Urea nitrogen/Creatin ine [Mass ratio] 15.4 mg/mg Normal [facility] Comment on above: Performed By: #### BNP, CMP ####[facility] Cjjdoxwden282[address] [place], [place] [address]Dr. Yuki Diaz PROF CHEM 8 (BAS METB)on Anion gap [Moles/Vol] 11.1 mmol/L Normal [facility] Comment on above: Performed By: #### BMP ####[facility] Tggxxoqanu1189[address] [place], [place] [address]Dr. Yuki Diaz Calcium [Mass/Vol] 8.1 mg/dL Critically low 8.5-10.1 [facility] Comment on above: Performed By: #### BMP ####[facility] ital Hhcydjcsdj745[address] [place], [place] [address]Dr. Yuki Diaz Chloride [Moles/Vol] 102 mmol/L Normal 98-107 [facility] Comment on above: Performed By: #### BMP ####[facility] ital Mbebaeaymo3147[address] [place], [place] [address]Dr. Yuki Diaz CO2 [Moles/Vol] 35.4 mmol/L Critically high 21.0-32.0 [facility] Comment on above: Performed By: #### BMP ####[facility] Bxjdodjalb3582[address] [place], [place] [address]Dr. Yuki Diaz Creatinine [Mass/Vol] 1.88 mg/dL Critically high 0.70-1.30 [facility] Comment on above: Performed By: #### BMP ####[facility] ital Gqxyucacbu7589[address] [place], [place] [address]Dr. Yuki Diaz EGFR-AF EGYPTIAN 42 mL/min/1.73m2 Critically low >=60 [facility] Comment on above: Performed By: #### BMP ####[facility] ital Daydidrbpb195[address] [place], [place] [address]Dr. Yuki Diaz EGFR-NON AF EGYPTIAN 35 mL/min/1.73m2 Critically low >=60 [facility] Comment on above: Performed By: #### BMP ####[facility] ital Hmwzropsxg0821 [place] [address]Dr. Yuki Diaz Glucose [Mass/Vol] 208 mg/dL Critically high 74-106 [facility] Comment on above: Performed By: #### BMP ####[facility] ital Nurahqpsvd1948 [place] [address]Dr. Yuki Diaz Potassium [Moles/Vol] 3.5 mmol/L Normal 3.5-5.1 [facility] Comment on above: Performed By: #### BMP ####[facility] ital Hammaonjxq9915 [place] [address]Dr. Yuki Diaz Sodium [Moles/Vol] 145 mmol/L Normal 136-145 [facility] Comment on above: Performed By: #### BMP ####[facility] Kqpludzlcw1027 [place] [address]Dr. Yuki Diaz Urea nitrogen [Mass/Vol] 33.0 mg/dL Critically high 7.0-18.0 [facility] Comment on above: Performed By: #### BMP ####[facility] Tsixieofap4243 [place] [address]Dr. Yuki Diaz Urea nitrogen/Creatin ine [Mass ratio] 17.6 mg/mg Normal [facility] Comment on above: Performed By: #### BMP ####[facility] Gubzuyegpp4919 [place] [address]Dr. Yuki Diaz PROTIMEon 01-26-2022 INR Coag (PPP) [Relative time] 1.15 {INR} Normal [facility] Comment on above: Performed By: #### PT ####[facility] kacie Lnmqicupca0467 [place] [address]Dr. Yuki Diaz INR GUIDELINES SEE BELOW Normal [facility] Comment on above: Result Comment: DESIRED INR: 2.0 - 3.0 C ONDITIONS NOT LISTED BELOW 2.5 - 3.5 FOR PROSTHETIC HEART VALVE REPLACEMENT 2.5 - 3.5 RECURRENT THROMBOSIS Performed By: #### P T ####[facility] Sysbqwttac5[address] [place], [place] [address]Dr. Yuki Diaz PT Coag (PPP) [Time] 12.3 s Critically high 9.0-11.6 [facility] Comment on above: Performed By: #### PT ####[facility] kacie Xbfchqovgp9075[address] [place], [place] [address]Dr. Yuki Diaz BNPon 01-25-2022 Natriuretic peptide B (Bld) [Mass/Vol] 3414.0 pg/mL Critically high <=1,800.0 [facility] Comment on above: Performed By: #### BNP, BMP ####[facility] Iyhezywnuq3352[address] [place], [place] [address]Dr. Yuki Diaz CBC AUTO DIFFon 01-25-2022 BASO # 0.0 103/ul Normal 0.0-0.1 [facility] Comment on above: Performed By: #### CBC ####[facility] Uhfawaoioy5[address] [place], [place] [address]Dr. Yuki Diaz Basophils/100 WBC (Bld) 0.3 % Normal 0.2-2.0 [facility] Comment on above: Performed By: #### CBC ####[facility] Vcodskgqqj39[address] [place], [place] [address]Dr. Yuki Diaz EO # 0.2 103/ul Normal 0.0-0.7 [facility] Comment on above: Performed By: #### CBC ####[facility] Dlcqedmizc[address] [place] [address]. Yuki Diaz Eosinophils/100 WBC (Bld) 1.9 % Normal 0.9-7.0 [facility] Comment on above: Performed By: #### CBC ####[facility] Gtrtyxcnog4523[address] [place], [place] [address]Dr. Yuki Diaz Erythrocyte distribution width (RBC) [Ratio] 13.2 % Normal 11.0-15.0 [facility] Comment on above: Performed By: #### CBC ####[facility] Voulaqqhjj[address] [place], [place] [address]Dr. Monsealyssa Diaz Hematocrit (Bld) [Volume fraction] 33.8 % Critically low 42.0-54.0 [facility] Comment on above: Performed By: #### CBC ####[facility] Rfshnojmtr2823 [place] [address]Dr. Monsealyssa Diaz Hemoglobin (Bld) [Mass/Vol] 10.8 g/dL Critically low 14.0-18.0 [facility] Comment on above: Performed By: #### CBC ####[facility] Eelwreuzav6474 [place] [address]Dr. Yuki Diaz IG # 0.04 10e3/ul Critically high 0.00-0.03 [facility] Comment on above: Performed By: #### CBC ####[facility] Hhehnqnxto3162 [place] [address]Dr. Yuki Diaz IG % 0.4 % Normal 0.0-0.5 [facility] Comment on above: Performed By: #### CBC ####[facility] Scllqngvyt[address] Yuki Diaz LYMPH # 1.5 103/ul Normal 1.2-3.8 [facility] Comment on above: Performed By: #### CBC ####[facility] Ijtydmmeej8669 [place] [address]Dr. Yuki Diaz Lymphocytes/100 WBC (Bld) 14.8 % Critically low 20.5-60.0 [facility] Comment on above: Performed By: #### CBC ####[facility] Guvkfexvde7113 [place] [address]Dr. Yuki Diaz MANUAL DIFF REQ NO Normal [facility] Comment on above: Performed By: #### CBC ####[facility] Bmytrcuyka5640 [place] [address]DrBebo Diaz MCH (RBC) [Entitic mass] 31.9 pg Normal 25.9-34.0 [facility] Comment on above: Performed By: #### CBC ####[facility] Rytbnnvcqz6257 [place] [address]Dr. Yuki Joe MCHC (RBC) [Mass/Vol] 32.0 g/dL Normal 29.9-35.2 [facility] Comment on above: Performed By: #### CBC ####[facility] Qllsgqxdfk0396 [place] [address]Dr. Yuki Diaz MCV (RBC) [Entitic vol] 99.7 fL Critically high 80.0-94.0 [facility] Comment on above: Performed By: #### CBC ####[facility] Cmbxblwmpn4001 [place] [address]Dr. Yuki Joe MONO # 1.0 103/ul Critically high 0.3-0.8 [facility] Comment on above: Performed By: #### CBC ####[facility] Hwtrkeqffq6478 [place] [address]Dr. Yuki Diaz Monocytes/100 WBC (Bld) 9.8 % Normal 1.7-12.0 [facility] Comment on above: Performed By: #### CBC ####[facility] Kemcgrnvac3472 [place] [address]Dr. Yuki Joe NEUT # 7.1 103/ul Critically high 1.4-6.5 [facility] Comment on above: Performed By: #### CBC ####[facility] Ihafzhgdje3429 [place] [address]Dr. Yuki Joe Neutrophils/100 WBC (Bld) 72.8 % Normal 43.0-75.0 [facility] Comment on above: Performed By: #### CBC ####[facility] Ebskxtddeu2220 [place] [address]Dr. Yuki Joe Platelet mean volume (Bld) [Entitic vol] 10.4 fL Normal 9.5-13.5 [facility] Comment on above: Performed By: #### CBC ####[facility] Yadburwgij0331 [place] [address]Dr. Monsealyssa Diaz PLT 204 103/ul Normal 150-450 [facility] Comment on above: Performed By: #### CBC ####[facility] Vaymxsrwzc0379 [place] [address]Dr. Yuki Diaz RBC 3.39 106/ul Critically low 4.70-6.10 [facility] Comment on above: Performed By: #### CBC ####[facility] Qrhreurhde3664 [place] [address]Dr. Yuki Diaz WBC 9.8 103/ul Normal 4.0-11.0 [facility] Comment on above: Performed By: #### CBC ####[facility] Opsznjgoxo0149 [place] [address]Dr. Yuki Diaz POINT OF CARE GLUCOSEon -09 07-2021 Glucose [Mass/Vol] 194 mg/dL Critically high 74-106 [facility] Comment on above: Performed By: #### POCGLUC ####[facility] Axpyadosve6828 [place] [address]Dr. Yuki Diaz Glucose [Mass/Vol] 196 mg/dL Critically high 74-106 [facility] Comment on above: Performed By: #### POCGLUC ####[facility] Cbqsoffdll[address] [place], [place] [address]Dr. Yuki Diaz Glucose [Mass/Vol] 253 mg/dL Critically high 74-106 [facility] Comment on above: Performed By: #### POCGLUC ####[facility] Dahvqocejl8343 [place] [address]Dr. Yuki Diaz Glucose [Mass/Vol] 106 mg/dL Normal 74-106 [facility] Comment on above: Performed By: #### POCGLUC ####[facility] Nnjarhogxy6[address] [place], [place] [address]Dr. Yuki Diaz POTASSIUMon 01-25-2022 Potassium [Moles/Vol] 3.4 mmol/L Critically low 3.5-5.1 [facility] Comment on above: Performed By: #### K ####[facility] al Fgdzfxgopb6908 [place] [address]Dr. Yuki Diaz PROF CHEM 8 (BAS METB)on Anion gap [Moles/Vol] 9.0 mmol/L Normal [facility] Comment on above: Performed By: #### BMP ####[facility] ital Gfvijjcksg0552 [place] [address]Dr. Yuki Diaz Calcium [Mass/Vol] 8.3 mg/dL Critically low 8.5-10.1 [facility] Comment on above: Performed By: #### BMP ####[facility] Ptnlsjiwji5154 [place] [address]Dr. Yuki Diaz Chloride [Moles/Vol] 103 mmol/L Normal 98-107 [facility] Comment on above: Performed By: #### BMP ####[facility] Mkgkwhkrzd7741 [place] [address]Dr. Yuki Diaz CO2 [Moles/Vol] 35.9 mmol/L Critically high 21.0-32.0 [facility] Comment on above: Performed By: #### BMP ####[facility] Lclhndwgtp4004 [place] [address]Dr. Yuki Diaz Creatinine [Mass/Vol] 1.94 mg/dL Critically high 0.70-1.30 [facility] Comment on above: Performed By: #### BMP ####[facility] Pphdtvtmrl5814 [place] [address]Dr. Yuki Diaz EGFR-AF EGYPTIAN 41 mL/min/1.73m2 Critically low >=60 [facility] Comment on above: Performed By: #### BMP ####[facility] Ehpbulklpa9486 [place] [address]Dr. Yuki Diaz EGFR-NON AF EGYPTIAN 34 mL/min/1.73m2 Critically low >=60 [facility] Comment on above: Performed By: #### BMP ####[facility] ital Ndfmwduzng8850 [place] [address]Dr. Yuki Diaz Glucose [Mass/Vol] 181 mg/dL Critically high 74-106 [facility] Comment on above: Performed By: #### BMP ####[facility] Kgpzjcqjiu6633 [place] [address]Dr. Yuki Diaz Potassium [Moles/Vol] 2.9 mmol/L Critically low 3.5-5.1 [facility] Comment on above: Result Comment: TEST REPEATED CRITICAL V ALUE VERIFIED Performed By: #### B MP ####[facility] Rusrygrtif9380 [place] [address]Dr. Yuki Diaz Sodium [Moles/Vol] 145 mmol/L Normal 136-145 [facility] Comment on above: Performed By: #### BMP ####[facility] Iqnemwmqjz4553 [place] [address]Dr. Yuki Diaz Urea nitrogen [Mass/Vol] 30.0 mg/dL Critically high 7.0-18.0 [facility] Comment on above: Performed By: #### BMP ####[facility] ital Txcyxoaxfn7934[address] [place], [place] [address]Dr. Yuki Joe Urea nitrogen/Creatin ine [Mass ratio] 15.5 mg/mg Normal [facility] Comment on above: Performed By: #### BMP ####[facility] ital Lzfeuwznaa653[address] [place], [place] [address]Dr. Yuki Joe Anion gap [Moles/Vol] 9.0 mmol/L Normal [facility] Comment on above: Performed By: #### BNP, BMP ####[facility] Ektedeicyy605[address] [place], [place] [address]Dr. Yuki Joe Calcium [Mass/Vol] 8.3 mg/dL Critically low 8.5-10.1 [facility] Comment on above: Performed By: #### BNP, BMP ####[facility] Ebxzaxhyjx1557[address] [place], [place] [address]Dr. Yuki Joe Chloride [Moles/Vol] 104 mmol/L Normal 98-107 [facility] Comment on above: Performed By: #### BNP, BMP ####[facility] Gasbjsczvl8187 [place] [address]Dr. Yuki Diaz CO2 [Moles/Vol] 37.0 mmol/L Critically high 21.0-32.0 [facility] Comment on above: Performed By: #### BNP, BMP ####[facility] Evbdzftmmz3188[address] [place], [place] [address]Dr. Yuki Diaz Creatinine [Mass/Vol] 2.03 mg/dL Critically high 0.70-1.30 [facility] Comment on above: Performed By: #### BNP, BMP ####[facility] Upswamzfqx9924 [place] [address]Dr. Yuki Diaz EGFR-AF EGYPTIAN 39 mL/min/1.73m2 Critically low >=60 [facility] Comment on above: Performed By: #### BNP, BMP ####[facility] Rarwtxjfek7287 [place] [id number]. Yuki Diaz EGFR-NON AF EGYPTIAN 32 mL/min/1.73m2 Critically low >=60 [facility] Comment on above: Performed By: #### BNP, BMP ####[facility] Fkbfnwvweo8070 [place] [address]Dr. Monsealyssa Joe Glucose [Mass/Vol] 102 mg/dL Normal 74-106 [facility] Comment on above: Performed By: #### BNP, BMP ####[facility] Creyzuyxjb3975 [place] [address]Dr. Yuki Diaz Potassium [Moles/Vol] 3.0 mmol/L Critically low 3.5-5.1 [facility] Comment on above: Performed By: #### BNP, BMP ####[facility] Xmbxuyinam8655[address] [place], [place] [address]Dr. Monsealyssa Joe Sodium [Moles/Vol] 147 mmol/L Critically high 136-145 [facility] Comment on above: Performed By: #### BNP, BMP ####[facility] Dvkctyskpy7573 [place] [address]Dr. Monsealyssa Joe Urea nitrogen [Mass/Vol] 31.0 mg/dL Critically high 7.0-18.0 [facility] Comment on above: Performed By: #### BNP, BMP ####[facility] Ihsvtnihiu6164 [place] [address]Dr. Monsealyssa Joe Urea nitrogen/Creatin ine [Mass ratio] 15.3 mg/mg Normal [facility] Comment on above: Performed By: #### BNP, BMP ####[facility] Xlwqafdzsq6692 [place] [address]Dr. Monsealyssa Joe TROPONIN, HIGH SENSITIVITYon 01-25-2022 HSTROP 38.8 pg/mL Normal 4.0-76.1 [facility] Comment on above: Result Comment: CUT-OFF POINTS HAVE BEEN ESTABLISHED BASED ON THE FOURTH UNIVERSAL DEFINITIONS OF MYOCARDIALINFARCTION. THE UPPER REFERENCE LIMIT (URL) OF TROPONIN, DEFINED THE 99TH PERCENTILE OFcTnI DISTRIBUTION IN A REFERENCE POPULATION, HAS BEEN CONFIRMED THE DECISION THRESHOLDFOR ID DIAGNOSIS. Performed By: #### H STROPN ####[facility] Dnexetrudl6535 [place] [address]Dr. Yuki Diaz BNPon 01-24-2022 Natriuretic peptide B (Bld) [Mass/Vol] 3429.0 pg/mL Critically high <=1,800.0 [facility] Comment on above: Performed By: #### HSTROPN, CMADM, BNP # ###[facility] Crplewzpas[address] [place], [place] [address]Dr. Yuki Diaz CARDIAC RACHEL ADMITon 022 CK [Catalytic activity/Vol] 108 U/L Normal 39-308 [facility] Comment on above: Performed By: #### HSTROPN, CMADM, BNP # ###[facility] Hwqqvpwpos11[address] [place], [place] [address]Dr. Yuki Diaz CK.MB [Mass/Vol] 2.44 ng/mL Normal <=3.60 [facility] Comment on above: Performed By: #### HSTROPN, CMADM, BNP # ###[facility] Egfhwgoune0125[address] [place], [place] [address]Dr. Yuki Diaz DILSHAD 177 ng/mL Critically high 16-96 [facility] Comment on above: Performed By: #### HSTROPN, CMADM, BNP # ###[facility] Lxgknkjhmx8208 [place] [address]Dr. Yuki Diaz CBC AUTO DIFFon 01-24-2022 BASO # 0.0 103/ul Normal 0.0-0.1 [facility] Comment on above: Performed By: #### CBC ####[facility] Oajvalqdsj37[address] [place], [place] [address]Dr. Yuki Diaz Basophils/100 WBC (Bld) 0.3 % Normal 0.2-2.0 [facility] Comment on above: Performed By: #### CBC ####[facility] ital Gmnefepgnh5701 [address]ebo Yuki Diaz EO # 0.2 103/ul Normal 0.0-0.7 [facility] Comment on above: Performed By: #### CBC ####[facility] Xiytpinykz6258 [address] Yuki Diaz Eosinophils/100 WBC (Bld) 1.7 % Normal 0.9-7.0 [facility] Comment on above: Performed By: #### CBC ####[facility] Qesxjbtimk2258 [address] Yuki Diaz Erythrocyte distribution width (RBC) [Ratio] 13.5 % Normal 11.0-15.0 [facility] Comment on above: Performed By: #### CBC ####[facility] Hnxpoktupd7301 [address] Monsealyssa Diaz Hematocrit (Bld) [Volume fraction] 33.3 % Critically low 42.0-54.0 [facility] Comment on above: Performed By: #### CBC ####[facility] Ayxwchxvbg[address] [place], [place] [address]Bebo Yuki Diaz Hemoglobin (Bld) [Mass/Vol] 10.8 g/dL Critically low 14.0-18.0 [facility] Comment on above: Performed By: #### CBC ####[facility] Efhzuoobvc6187 [address] Yuki Diaz IG # 0.04 10e3/ul Critically high 0.00-0.03 [facility] Comment on above: Performed By: #### CBC ####[facility] Xusmfqhiie5274 [address]eb[address] Monsealyssa Diaz IG % 0.4 % Normal 0.0-0.5 [facility] Comment on above: Performed By: #### CBC ####[facility] Sltaasliau[address] [place], [place] [address]Bebo Diaz LYMPH # 1.3 103/ul Normal 1.2-3.8 [facility] Comment on above: Performed By: #### CBC ####[facility] Mhbtgcdckz0412 [place] [address]DrBebo Diaz Lymphocytes/100 WBC (Bld) 13.8 % Critically low 20.5-60.0 [facility] Comment on above: Performed By: #### CBC ####[facility] Bwjvpclgyl0849 [place] [address]DrBebo Diaz MANUAL DIFF REQ NO Normal [facility] Comment on above: Performed By: #### CBC ####[facility] Ootfdpfnrd5339 [place] [address]DrBebo Diaz MCH (RBC) [Entitic mass] 32.8 pg Normal 25.9-34.0 [facility] Comment on above: Performed By: #### CBC ####[facility] Zdtjhmigmq7547 [place] [address]DrBebo Diaz MCHC (RBC) [Mass/Vol] 32.4 g/dL Normal 29.9-35.2 [facility] Comment on above: Performed By: #### CBC ####[facility] Nznsooqyxq2304 [place] [address]DrBebo Diaz MCV (RBC) [Entitic vol] 101.2 fL Critically high 80.0-94.0 [facility] Comment on above: Performed By: #### CBC ####[facility] ital Belxibrfbt0064 [place] [address]Dr. Yuki Diaz MONO # 0.8 103/ul Normal 0.3-0.8 [facility] Comment on above: Performed By: #### CBC ####[facility] ital Rjuvutjeaz0153 [place] [address]DrBebo Diaz Monocytes/100 WBC (Bld) 8.3 % Normal 1.7-12.0 [facility] Comment on above: Performed By: #### CBC ####[facility] ital Qriiwwxfdc0621 [place] [address]DrBebo Diaz NEUT # 7.2 103/ul Critically high 1.4-6.5 [facility] Comment on above: Performed By: #### CBC ####[facility] ital Dbfgmiiazs3767 [place] [address]Dr. Yuki Diaz Neutrophils/100 WBC (Bld) 75.5 % Critically high 43.0-75.0 [facility] Comment on above: Performed By: #### CBC ####[facility] ital Brdtmhsgpr8841 [place] [id number]. Yuki Diaz Platelet mean volume (Bld) [Entitic vol] 10.6 fL Normal 9.5-13.5 [facility] Comment on above: Performed By: #### CBC ####[facility] ital Gysdvqiyib2077 [place] [address]Dr. Yuki Diaz PLT 215 103/ul Normal 150-450 [facility] Comment on above: Performed By: #### CBC ####[facility] Rwzgofzndz3424 [place] [address]Dr. Yuki Diaz RBC 3.29 106/ul Critically low 4.70-6.10 [facility] Comment on above: Performed By: #### CBC ####[facility] Djdlrnhzoy8369 [place] [address]Dr. Yuki Diaz WBC 9.5 103/ul Normal 4.0-11.0 [facility] Comment on above: Performed By: #### CBC ####[facility] Hoeyezksqt6628 [place] [address]Dr. Yuki Diaz [facility]on [facility]-06 SARS-CoV-2 (COVID-19) RNA JARVIS+probe Ql (Unsp spec) Not detected Normal NOT DETECTED [facility] Comment on above: Result Comment: When [...] for this test is supported by the [place] of Health and Human Service's declaration that [...] longer be used). Performed By: #### [facility] ####[facility] Xygvjdzerw4508 [place] [address]Dr. Yuki Diaz PROF 14(COMP METB)on 022 Albumin [Mass/Vol] 2.8 g/dL Critically low 3.4-5.0 [facility] Comment on above: Performed By: #### CMP ####[facility] Kdhdumjauo[address] [place], [place] [address]Dr. Yuki Diaz Albumin/Globulin [Mass ratio] 0.8 {ratio} Normal [facility] Comment on above: Performed By: #### CMP ####[facility] ital Uzplbfwpav9646[address] [place], [place] [address]Dr. Yuki Diaz ALP [Catalytic activity/Vol] 96 U/L Normal 46-116 [facility] Comment on above: Performed By: #### CMP ####[facility] Vrrkicaope086[address] [place], [place] [address]Dr. Yuki Diaz ALT [Catalytic activity/Vol] 32 U/L Normal 16-63 [facility] Comment on above: Performed By: #### CMP ####[facility] ital Vwyrilhgfr0248[address] [place], [place] [address]Dr. Yuki Diaz Anion gap [Moles/Vol] 12.6 mmol/L Normal [facility] Comment on above: Performed By: #### CMP ####[facility] Qptestfhoq4[address] [place], [place] [address]Dr. Yuki Diaz AST [Catalytic activity/Vol] 19 U/L Normal 15-37 [facility] Comment on above: Performed By: #### CMP ####[facility] Oleenfvkrc1847 [place] [address]Dr. Yuki Diaz Bilirubin [Mass/Vol] 0.7 mg/dL Normal 0.2-1.0 [facility] Comment on above: Performed By: #### CMP ####[facility] Kaaygecwcg8983 [place] [address]Dr. Yuki Diaz Calcium [Mass/Vol] 8.2 mg/dL Critically low 8.5-10.1 [facility] Comment on above: Performed By: #### CMP ####[facility] Jomjanwqss9950 [place] [address]Dr. Yuki Diaz Chloride [Moles/Vol] 103 mmol/L Normal 98-107 [facility] Comment on above: Performed By: #### CMP ####[facility] Saxthxkxsb3870 [place] [address]Dr. Yuki Diaz CO2 [Moles/Vol] 31.2 mmol/L Normal 21.0-32.0 [facility] Comment on above: Performed By: #### CMP ####[facility] Jehpllngum4211 [place] [address]Dr. Yuki Diaz Creatinine [Mass/Vol] 2.24 mg/dL Critically high 0.70-1.30 [facility] Comment on above: Performed By: #### CMP ####[facility] Idwyibhpig5226 [place] [address]Dr. Yuki Diaz EGFR-AF EGYPTIAN 34 mL/min/1.73m2 Critically low >=60 [facility] Comment on above: Performed By: #### CMP ####[facility] Ybkjxpehlw0239 [place] [phone]. Yuki Diaz EGFR-NON AF EGYPTIAN 28 mL/min/1.73m2 Critically low >=60 [facility] Comment on above: Performed By: #### CMP ####[facility] Kourfxmtyu7078 [place] [address]Dr. Yuki Diaz Globulin (S) [Mass/Vol] 3.4 g/dL Normal [facility] Comment on above: Performed By: #### CMP ####[facility] Metkdumiox4881 [place] [phone]. Yuki Diaz Glucose [Mass/Vol] 123 mg/dL Critically high 74-106 [facility] Comment on above: Performed By: #### CMP ####[facility] Detolpsjey0481 [place] [address]Dr. Yuki Diaz Potassium [Moles/Vol] 2.7 mmol/L Critically low 3.5-5.1 [facility] Comment on above: Performed By: #### CMP ####[facility] Vyrcvnomgv0200 [place] [address]Dr. Yuki Diaz Protein [Mass/Vol] 6.2 g/dL Critically low 6.4-8.2 [facility] Comment on above: Performed By: #### CMP ####[facility] Wnahwcntac4274 [place] [address]Dr. Yuki Diaz Sodium [Moles/Vol] 142 mmol/L Normal 136-145 [facility] Comment on above: Performed By: #### CMP ####[facility] Rgukxlzfgj3111 [place] [address]Dr. Yuki Diaz Urea nitrogen [Mass/Vol] 29.0 mg/dL Critically high 7.0-18.0 [facility] Comment on above: Performed By: #### CMP ####[facility] Blptavwfwj2206 [place] [address]Dr. Yuki Diaz Urea nitrogen/Creatin ine [Mass ratio] 12.9 mg/mg Normal [facility] Comment on above: Performed By: #### CMP ####[facility] Edfhjhqcua0189 [place] [address]Dr. Yuki Diaz TROPONIN, HIGH SENSITIVITYon 01-24-2022 HSTROP 33.1 pg/mL Normal 4.0-76.1 [facility] Comment on above: Result Comment: CUT-OFF POINTS HAVE BEEN ESTABLISHED BASED ON THE FOURTH UNIVERSAL DEFINITIONS OF MYOCARDIALINFARCTION. THE UPPER REFERENCE LIMIT (URL) OF TROPONIN, DEFINED THE 99TH PERCENTILE OFcTnI DISTRIBUTION IN A REFERENCE POPULATION, HAS BEEN CONFIRMED THE DECISION THRESHOLDFOR ID DIAGNOSIS. Performed By: #### H STROPN, CMADM, BNP ####[facility] Wcrpdvetgm3229 [place] [address]Dr. Yuki Diaz XR CHEST 1 Von 01-24-2022 XR CHEST 1 V Normal [facility] BNPon 01-12-2022 Natriuretic peptide B (Bld) [Mass/Vol] 2759.0 pg/mL Critically high <=1,800.0 [facility] Comment on above: Performed By: #### CMP, BNP ####[facility] Jrvyehewgv5225[address] [place], [place] [address]Dr. Yuki Diaz PROF 14(COMP METB)on 022 Albumin [Mass/Vol] 2.9 g/dL Critically low 3.4-5.0 [facility] Comment on above: Performed By: #### CMP, BNP ####[facility] Ppuzfcrlmq7[address] [place], [place] [address]Dr. Yuki Diaz Albumin/Globulin [Mass ratio] 0.8 {ratio} Normal [facility] Comment on above: Performed By: #### CMP, BNP ####[facility] Rtmftuxjnt2273[address] [place], [place] [address]Dr. Yuki Diaz ALP [Catalytic activity/Vol] 100 U/L Normal 46-116 [facility] Comment on above: Performed By: #### CMP, BNP ####[facility] Rlqqkdddjd245[address] [place], [place] [address]Dr. Yuki Diaz ALT [Catalytic activity/Vol] 43 U/L Normal 16-63 [facility] Comment on above: Performed By: #### CMP, BNP ####[facility] Yecngrsupd2274[address] [place], [place] [address]Dr. Yuki Diaz Anion gap [Moles/Vol] 7.6 mmol/L Normal [facility] Comment on above: Performed By: #### CMP, BNP ####[facility] Plriwcewnd499[address] [place], [place] [address]Dr. Yuki Diaz AST [Catalytic activity/Vol] 22 U/L Normal 15-37 [facility] Comment on above: Performed By: #### CMP, BNP ####[facility] Tvmnrkanht5569[address] [place], [place] [address]Dr. Yuki Diaz Bilirubin [Mass/Vol] 0.8 mg/dL Normal 0.2-1.0 [facility] Comment on above: Performed By: #### CMP, BNP ####[facility] Iodkuhbwuf0238 [place] [address]Dr. Yuki Diaz Calcium [Mass/Vol] 8.0 mg/dL Critically low 8.5-10.1 [facility] Comment on above: Performed By: #### CMP, BNP ####[facility] Wnhhwrotay9590 [place] [address]Dr. Yuki Diaz Chloride [Moles/Vol] 107 mmol/L Normal 98-107 [facility] Comment on above: Performed By: #### CMP, BNP ####[facility] Ibnawshdwk9983 [place] [address]Dr. Yuki Diaz CO2 [Moles/Vol] 37.1 mmol/L Critically high 21.0-32.0 [facility] Comment on above: Performed By: #### CMP, BNP ####[facility] Fdwwobzjiz8086[address] [place], [place] [address]Dr. Yuki Diaz Creatinine [Mass/Vol] 1.94 mg/dL Critically high 0.70-1.30 [facility] Comment on above: Performed By: #### CMP, BNP ####[facility] Fssszkcudj2647 [place] [address]Dr. Yuki Diaz EGFR-AF EGYPTIAN 41 mL/min/1.73m2 Critically low >=60 [facility] Comment on above: Performed By: #### CMP, BNP ####[facility] Orrcecdukx5270 [place] [address]Dr. Yuki Diaz EGFR-NON AF EGYPTIAN 34 mL/min/1.73m2 Critically low >=60 [facility] Comment on above: Performed By: #### CMP, BNP ####[facility] Awckpujiep1555 [place] [address]Dr. Yuki Diaz Globulin (S) [Mass/Vol] 3.5 g/dL Normal [facility] Comment on above: Performed By: #### CMP, BNP ####[facility] Ctvdzsdxqx7412 [place] [address]Dr. Yuki Diaz Glucose [Mass/Vol] 76 mg/dL Normal 74-106 [facility] Comment on above: Performed By: #### CMP, BNP ####[facility] Rxebcytfvn3665[address] [place], [place] [address]Dr. Yuki Diaz Potassium [Moles/Vol] 3.7 mmol/L Normal 3.5-5.1 [facility] Comment on above: Performed By: #### CMP, BNP ####[facility] Fflhutkosb0043[address] [place], [place] [address]Dr. Yuki Diaz Protein [Mass/Vol] 6.4 g/dL Normal 6.4-8.2 [facility] Comment on above: Performed By: #### CMP, BNP ####[facility] Ucpvajzczu1269[address] [place], [place] [address]Dr. Yuki Diaz Sodium [Moles/Vol] 148 mmol/L Critically high 136-145 [facility] Comment on above: Performed By: #### CMP, BNP ####[facility] Voxkpthpzb539[address] [place], [place] [address]Dr. Yuki Diaz Urea nitrogen [Mass/Vol] 35.0 mg/dL Critically high 7.0-18.0 [facility] Comment on above: Performed By: #### CMP, BNP ####[facility] Chrqfltrcg7949[address] [place], [place] [address]Dr. Yuki Diaz Urea nitrogen/Creatin ine [Mass ratio] 18.0 mg/mg Normal [facility] Comment on above: Performed By: #### CMP, BNP ####[facility] Pubcbppkxk4138[address] [place], [place] [address]Dr. Yuki Diaz BNPon 12-30-2021 Natriuretic peptide B (Bld) [Mass/Vol] 4262.0 pg/mL Critically high <=1,800.0 [facility] Comment on above: Result Comment: repeated Performed By: #### C MP, BNP ####[facility] Jqnpdodvvl6953[address] [place], [place] [address]Dr. Yuki Diaz CBC AUTO DIFFon 12-30-2021 BASO # 0.0 103/ul Normal 0.0-0.1 [facility] Comment on above: Performed By: #### CBC ####[facility] Lezcuauezv1458 [place] [address]Dr. Yuki Diaz Basophils/100 WBC (Bld) 0.2 % Normal 0.2-2.0 [facility] Comment on above: Performed By: #### CBC ####[facility] ital Zsemlzwjih8126[address] [place], [place] [address]Dr. Yuki Diaz EO # 0.1 103/ul Normal 0.0-0.7 [facility] Comment on above: Performed By: #### CBC ####[facility] Uxfgdqjqjx112[address] [place], [place] [address]Dr. Yuki Diaz Eosinophils/100 WBC (Bld) 1.3 % Normal 0.9-7.0 [facility] Comment on above: Performed By: #### CBC ####[facility] Kavvkwkxlc2592[address] [place], [place] [address]Dr. Yuki Diaz Erythrocyte distribution width (RBC) [Ratio] 13.9 % Normal 11.0-15.0 [facility] Comment on above: Performed By: #### CBC ####[facility] Vlvybhbsba4469[address] [place], [place] [address]Dr. Yuki Diaz Hematocrit (Bld) [Volume fraction] 35.6 % Critically low 42.0-54.0 [facility] Comment on above: Performed By: #### CBC ####[facility] Byrzzhtvbl6696[address] [place], [place] [address]Dr. Yuki Diaz Hemoglobin (Bld) [Mass/Vol] 11.6 g/dL Critically low 14.0-18.0 [facility] Comment on above: Performed By: #### CBC ####[facility] Fphiaqzkzh1853[address] [place], [place] [address]DrBebo Diaz IG # 0.02 10e3/ul Normal 0.00-0.03 [facility] Comment on above: Performed By: #### CBC ####[facility] Zlegcdqrim696[address] [place], [place] [address]Dr. Yuki Diaz IG % 0.2 % Normal 0.0-0.5 [facility] Comment on above: Performed By: #### CBC ####[facility] ital Jwuuwxgubh6273 [place] [address]DrBebo Diaz LYMPH # 1.5 103/ul Normal 1.2-3.8 [facility] Comment on above: Performed By: #### CBC ####[facility] ital Keooughnin4965 [place] [address]DrBebo Diaz Lymphocytes/100 WBC (Bld) 17.6 % Critically low 20.5-60.0 [facility] Comment on above: Performed By: #### CBC ####[facility] Kevhwstxku0402 [place] [address]DrBebo Diaz MANUAL DIFF REQ NO Normal [facility] Comment on above: Performed By: #### CBC ####[facility] Jgzpzyifrk8918 [place] [address]DrBebo Diaz MCH (RBC) [Entitic mass] 32.3 pg Normal 25.9-34.0 [facility] Comment on above: Performed By: #### CBC ####[facility] Zwdayszjac4388 [place] [address]DrBebo Diaz MCHC (RBC) [Mass/Vol] 32.6 g/dL Normal 29.9-35.2 [facility] Comment on above: Performed By: #### CBC ####[facility] Hrpsaqejus8768 [place] [address]DrBebo Diaz MCV (RBC) [Entitic vol] 99.2 fL Critically high 80.0-94.0 [facility] Comment on above: Performed By: #### CBC ####[facility] Qazdczenwl4545 [place] [address]DrBebo Diaz MONO # 0.9 103/ul Critically high 0.3-0.8 [facility] Comment on above: Performed By: #### CBC ####[facility] Zqxypjmrlm5494 [place] [address]DrBebo Diaz Monocytes/100 WBC (Bld) 10.9 % Normal 1.7-12.0 [facility] Comment on above: Performed By: #### CBC ####[facility] Ljjnbizgow8210 [place] [address]DrBebo Yuki Diaz NEUT # 5.7 103/ul Normal 1.4-6.5 [facility] Comment on above: Performed By: #### CBC ####[facility] Ullsxldzuh6992 [place] [address]DrBebo Yuki Diaz Neutrophils/100 WBC (Bld) 69.8 % Normal 43.0-75.0 [facility] Comment on above: Performed By: #### CBC ####[facility] Zvnpbmawys6944 [place] [address]DrBebo Diaz Platelet mean volume (Bld) [Entitic vol] 10.3 fL Normal 9.5-13.5 [facility] Comment on above: Performed By: #### CBC ####[facility] Xfbkdxofkz8584 [place] [address]Dr. Yuki Joe PLT 182 103/ul Normal 150-450 [facility] Comment on above: Performed By: #### CBC ####[facility] Qutubbdkvb8260 [place] [address]DrBebo Diaz RBC 3.59 106/ul Critically low 4.70-6.10 [facility] Comment on above: Performed By: #### CBC ####[facility] Dxtfywfcjz4645 [place] [address]DrBebo Sheaalyssa Joe WBC 8.2 103/ul Normal 4.0-11.0 [facility] Comment on above: Performed By: #### CBC ####[facility] Pgrnqtamaq1655 [place] [address]DrBebo Diaz POINT OF CARE GLUCOSEon 05-2 Glucose [Mass/Vol] 134 mg/dL Critically high 74-106 [facility] Comment on above: Performed By: #### POCGLUC ####[facility] Teudaezudh5535 [place] [address]DrBebo Diaz PROF 14(COMP METB)on 022 Albumin [Mass/Vol] 2.9 g/dL Critically low 3.4-5.0 [facility] Comment on above: Performed By: #### CMP, BNP ####[facility] Xixkggoxhq5221 [place] [address]Dr. Yuki Diaz Albumin/Globulin [Mass ratio] 0.9 {ratio} Normal [facility] Comment on above: Performed By: #### CMP, BNP ####[facility] Lglzhbqakx9239[address] [place], [place] [address]Dr. Yuki Diaz ALP [Catalytic activity/Vol] 87 U/L Normal 46-116 [facility] Comment on above: Performed By: #### CMP, BNP ####[facility] Anxzuaskom4154[address] [place], [place] [address]Dr. Yuki Diaz ALT [Catalytic activity/Vol] 92 U/L Critically high 16-63 [facility] Comment on above: Performed By: #### CMP, BNP ####[facility] Zoljguxytk7133[address] [place], [place] [address]Dr. Yuki Diaz Anion gap [Moles/Vol] 8.4 mmol/L Normal [facility] Comment on above: Performed By: #### CMP, BNP ####[facility] Nlqlpvzksv8266[address] [place], [place] [address]Dr. Yuki Diaz AST [Catalytic activity/Vol] 29 U/L Normal 15-37 [facility] Comment on above: Performed By: #### CMP, BNP ####[facility] Frsdgmhjvr143[address] [place], [place] [address]Dr. Yuki Diaz Bilirubin [Mass/Vol] 0.8 mg/dL Normal 0.2-1.0 [facility] Comment on above: Performed By: #### CMP, BNP ####[facility] Wzsmntvoyb24[address] [place], [place] [address]Dr. Yuki Diaz Calcium [Mass/Vol] 8.3 mg/dL Critically low 8.5-10.1 [facility] Comment on above: Performed By: #### CMP, BNP ####[facility] Adaktihzah967[address] [place], [place] [address]Dr. Yuki Diaz Chloride [Moles/Vol] 105 mmol/L Normal 98-107 [facility] Comment on above: Performed By: #### CMP, BNP ####[facility] Wxidhhzqix6825 [place] [address]Dr. Yuki Diaz CO2 [Moles/Vol] 34.1 mmol/L Critically high 21.0-32.0 [facility] Comment on above: Performed By: #### CMP, BNP ####[facility] Hrmoqgouba4330 [place] [address]Dr. Yuki Diaz Creatinine [Mass/Vol] 1.98 mg/dL Critically high 0.70-1.30 [facility] Comment on above: Performed By: #### CMP, BNP ####[facility] Xmykxxoxav124[address] [place], [place] [address]Dr. Yuki Diaz EGFR-AF EGYPTIAN 40 mL/min/1.73m2 Critically low >=60 [facility] Comment on above: Performed By: #### CMP, BNP ####[facility] Grvvnyyjxz6966[address] [place], [place] [address]Dr. Yuki Diaz EGFR-NON AF EGYPTIAN 33 mL/min/1.73m2 Critically low >=60 [facility] Comment on above: Performed By: #### CMP, BNP ####[facility] Ixujjxiwdv5144[address] [place], [place] [address]Dr. Yuki Diaz Globulin (S) [Mass/Vol] 3.4 g/dL Normal [facility] Comment on above: Performed By: #### CMP, BNP ####[facility] Oxmuzeahxv9902 [place] [address]Dr. Yuki Diaz Glucose [Mass/Vol] 129 mg/dL Critically high 74-106 [facility] Comment on above: Performed By: #### CMP, BNP ####[facility] Yqgdnbyqey3787[address] [place], [place] [address]Dr. Yuki Diaz Potassium [Moles/Vol] 3.5 mmol/L Normal 3.5-5.1 [facility] Comment on above: Performed By: #### CMP, BNP ####[facility] Iukqphckrs2201[address] [place], [place] [address]Dr. Monsealyssa Diaz Protein [Mass/Vol] 6.3 g/dL Critically low 6.4-8.2 [facility] Comment on above: Performed By: #### CMP, BNP ####[facility] Rfbhpuekgq92[address] [place], [place] [address]Dr. Yuki Diaz Sodium [Moles/Vol] 144 mmol/L Normal 136-145 [facility] Comment on above: Performed By: #### CMP, BNP ####[facility] Vkvizqnpqg6558[address] [place], [place] [address]Dr. Yuki Diaz Urea nitrogen [Mass/Vol] 37.0 mg/dL Critically high 7.0-18.0 [facility] Comment on above: Performed By: #### CMP, BNP ####[facility] Wlvacznmve3056[address] [place], [place] [address]Dr. Yuki Diaz Urea nitrogen/Creatin ine [Mass ratio] 18.7 mg/mg Normal [facility] Comment on above: Performed By: #### CMP, BNP ####[facility] Rrqwmmciln6559[address] [place], [place] [address]Dr. Yuki Joe BNPon 12-29-2021 Natriuretic peptide B (Bld) [Mass/Vol] 2335.0 pg/mL Critically high <=1,800.0 [facility] Comment on above: Result Comment: repeated Performed By: #### C MP, BNP ####[facility] Hrgxcspqos3867[address] [place], [place] [address]Dr. Yuki Diaz CBC AUTO DIFFon 12-29-2021 BASO # 0.0 103/ul Normal 0.0-0.1 [facility] Comment on above: Performed By: #### CBC ####[facility] Zjkagsxrfg578[address] [place], [place] [address]Dr. Yuki Diaz Basophils/100 WBC (Bld) 0.3 % Normal 0.2-2.0 [facility] Comment on above: Performed By: #### CBC ####[facility] Eazmziybyo1615[address] [place], [place] [address]Dr. Yuki Diaz EO # 0.1 103/ul Normal 0.0-0.7 [facility] Comment on above: Performed By: #### CBC ####[facility] Xjwpufwmdn7340 [address] Yuki Diaz Eosinophils/100 WBC (Bld) 1.4 % Normal 0.9-7.0 [facility] Comment on above: Performed By: #### CBC ####[facility] Ahsmqihblt0380 [address] Yuki Diaz Erythrocyte distribution width (RBC) [Ratio] 14.2 % Normal 11.0-15.0 [facility] Comment on above: Performed By: #### CBC ####[facility] Medayxsqbu8[address] [place] [address]. Monsealyssa Diaz Hematocrit (Bld) [Volume fraction] 34.3 % Critically low 42.0-54.0 [facility] Comment on above: Performed By: #### CBC ####[facility] Wxmyjmrdsz265[address] [place], [place] [address]Dr. Monsealyssa Diaz Hemoglobin (Bld) [Mass/Vol] 11.0 g/dL Critically low 14.0-18.0 [facility] Comment on above: Performed By: #### CBC ####[facility] Kacntbqnrj[address] [place] [address]. Yuki Diaz IG # 0.03 10e3/ul Normal 0.00-0.03 [facility] Comment on above: Performed By: #### CBC ####[facility] Pbfgvgwawv6[address] [place], [place] [address]Dr. Yuki Diaz IG % 0.4 % Normal 0.0-0.5 [facility] Comment on above: Performed By: #### CBC ####[facility] Oxvkwfuizo[address] [place] [address]. Yuki Diaz LYMPH # 1.3 103/ul Normal 1.2-3.8 [facility] Comment on above: Performed By: #### CBC ####[facility] Hsspwnfamt[address] [place] [address]. Yuki Diaz Lymphocytes/100 WBC (Bld) 18.5 % Critically low 20.5-60.0 [facility] Comment on above: Performed By: #### CBC ####[facility] Szzjjukicj5096 [place] [address]DrBebo Diaz MANUAL DIFF REQ NO Normal [facility] Comment on above: Performed By: #### CBC ####[facility] Xzwuppcmof5435 [place] [address]DrBebo Diaz MCH (RBC) [Entitic mass] 31.7 pg Normal 25.9-34.0 [facility] Comment on above: Performed By: #### CBC ####[facility] Wkozvuatzd1862 [place] [address]DrBebo Diaz MCHC (RBC) [Mass/Vol] 32.1 g/dL Normal 29.9-35.2 [facility] Comment on above: Performed By: #### CBC ####[facility] Obwispazzs4571 [place] [address]DrBebo Diaz MCV (RBC) [Entitic vol] 98.8 fL Critically high 80.0-94.0 [facility] Comment on above: Performed By: #### CBC ####[facility] Ztbngdnyho07[address] [place], [place] [address]DrBebo Diaz MONO # 0.7 103/ul Normal 0.3-0.8 [facility] Comment on above: Performed By: #### CBC ####[facility] ital Jjjqereozz2885 [place] [address]DrBebo Diaz Monocytes/100 WBC (Bld) 10.6 % Normal 1.7-12.0 [facility] Comment on above: Performed By: #### CBC ####[facility] ital Wdkyejaklu2181 [place] [address]DrBebo Diaz NEUT # 4.8 103/ul Normal 1.4-6.5 [facility] Comment on above: Performed By: #### CBC ####[facility] ital Ztfcvjaual[address] [place], [place] [address]DrBebo Diaz Neutrophils/100 WBC (Bld) 68.8 % Normal 43.0-75.0 [facility] Comment on above: Performed By: #### CBC ####[facility] ital Drnxtvdnfc2857 [place] [address]Dr. Yuki Diaz Platelet mean volume (Bld) [Entitic vol] 10.5 fL Normal 9.5-13.5 [facility] Comment on above: Performed By: #### CBC ####[facility] ital Oddrogcjna0818[address] [place], [place] [address]Dr. Yuki Diaz PLT 183 103/ul Normal 150-450 [facility] Comment on above: Performed By: #### CBC ####[facility] Rltqlxiitp6467[address] [place], [place] [address]Dr. Monsealyssa Diaz RBC 3.47 106/ul Critically low 4.70-6.10 [facility] Comment on above: Performed By: #### CBC ####[facility] Hxwbftjxmb2934[address] [place], [place] [address]Dr. Monsealyssa Joe WBC 7.0 103/ul Normal 4.0-11.0 [facility] Comment on above: Performed By: #### CBC ####[facility] Edvhsnooeu[address] [place], [place] [address]Dr. Yuki Diaz CULTURE URINEon 12-29-2021 CULTURE URINE Culture Observations : NO GROWTH. Normal [facility] Comment on above: Performed By: #### URCX ####[facility] Lignyduzjm[address] [place], [place] [address]Dr. Monsealyssa Joe ECHO LIMITED STUDYon 022 ECHO LIMITED STUDY Normal [facility] POINT OF CARE GLUCOSEon 12-06 Glucose [Mass/Vol] 143 mg/dL Critically high 74-106 [facility] Comment on above: Performed By: #### POCGLUC ####[facility] Nowoqvlliu450[address] [place], [place] [address]Dr. Monsealyssa Joe Glucose [Mass/Vol] 141 mg/dL Critically high 74-106 [facility] Comment on above: Performed By: #### POCGLUC ####[facility] Aropfinsun[address] [place], [place] [address]Dr. Yuki Diaz Glucose [Mass/Vol] 190 mg/dL Critically high 74-106 [facility] Comment on above: Performed By: #### POCGLUC ####[facility] Tmrhrotjjf45[address] [place], [place] [address]Dr. Yuki Diaz PROF 14(COMP METB)on 022 Albumin [Mass/Vol] 2.5 g/dL Critically low 3.4-5.0 [facility] Comment on above: Performed By: #### CMP, BNP ####[facility] Llutwqenfl079[address] [place], [place] [address]Dr. Yuki Diaz Albumin/Globulin [Mass ratio] 0.8 {ratio} Normal [facility] Comment on above: Performed By: #### CMP, BNP ####[facility] Tflyrzvxbk1592[address] [place], [place] [address]Dr. Yuki Diaz ALP [Catalytic activity/Vol] 77 U/L Normal 46-116 [facility] Comment on above: Performed By: #### CMP, BNP ####[facility] Xxyuzcubke5108[address] [place], [place] [address]Dr. Yuki Diaz ALT [Catalytic activity/Vol] 103 U/L Critically high 16-63 [facility] Comment on above: Performed By: #### CMP, BNP ####[facility] Tmyokflgrh[address] [place], [place] [address]Dr. Yuki Diaz Anion gap [Moles/Vol] 12.3 mmol/L Normal [facility] Comment on above: Performed By: #### CMP, BNP ####[facility] Cqselaigdv4025[address] [place], [place] [address]Dr. Yuki Diaz AST [Catalytic activity/Vol] 41 U/L Critically high 15-37 [facility] Comment on above: Performed By: #### CMP, BNP ####[facility] Vnekdjqibu4958[address] [place], [place] [address]Dr. Yuki Diaz Bilirubin [Mass/Vol] 0.7 mg/dL Normal 0.2-1.0 [facility] Comment on above: Performed By: #### CMP, BNP ####[facility] Fjrdrywvnm4507 [place] [address]Dr. Yuki Diaz Calcium [Mass/Vol] 8.2 mg/dL Critically low 8.5-10.1 [facility] Comment on above: Performed By: #### CMP, BNP ####[facility] Birzwltelj3449[address] [place], [place] [address]Dr. Yuki Diaz Chloride [Moles/Vol] 108 mmol/L Critically high 98-107 [facility] Comment on above: Performed By: #### CMP, BNP ####[facility] Xlogljeabm1303[address] [place], [place] [address]Dr. Yuki Diaz CO2 [Moles/Vol] 28.4 mmol/L Normal 21.0-32.0 [facility] Comment on above: Performed By: #### CMP, BNP ####[facility] Hbczkmxvdu508[address] [place], [place] [address]Dr. Yuki Diaz Creatinine [Mass/Vol] 1.74 mg/dL Critically high 0.70-1.30 [facility] Comment on above: Performed By: #### CMP, BNP ####[facility] Eumobdbahf8724[address] [place], [place] [address]Dr. Yuki Diaz EGFR-AF EGYPTIAN 46 mL/min/1.73m2 Critically low >=60 [facility] Comment on above: Performed By: #### CMP, BNP ####[facility] Zdwbeozwks1401[address] [place], [place] [address]Dr. Yuki Diaz EGFR-NON AF EGYPTIAN 38 mL/min/1.73m2 Critically low >=60 [facility] Comment on above: Performed By: #### CMP, BNP ####[facility] Ijctbmkdnk5358[address] [place], [place] [address]Dr. Yuki Diaz Globulin (S) [Mass/Vol] 3.1 g/dL Normal [facility] Comment on above: Performed By: #### CMP, BNP ####[facility] Ehucxipdza0044[address] [place], [place] [address]Dr. Yuki Diaz Glucose [Mass/Vol] 103 mg/dL Normal 74-106 [facility] Comment on above: Performed By: #### CMP, BNP ####[facility] Lnnmzlogsq6565 [place] [address]Dr. Yuki Diaz Potassium [Moles/Vol] 3.7 mmol/L Normal 3.5-5.1 [facility] Comment on above: Performed By: #### CMP, BNP ####[facility] Rshuwflwdi4660 [place] [address]Dr. Yuki Diaz Protein [Mass/Vol] 5.6 g/dL Critically low 6.4-8.2 [facility] Comment on above: Performed By: #### CMP, BNP ####[facility] Yrcumawnvs1608[address] [place], [place] [address]Dr. Yuki Diaz Sodium [Moles/Vol] 145 mmol/L Normal 136-145 [facility] Comment on above: Performed By: #### CMP, BNP ####[facility] Qjhjvjkglb58[address] [place], [place] [address]Dr. Yuki Diaz Urea nitrogen [Mass/Vol] 33.0 mg/dL Critically high 7.0-18.0 [facility] Comment on above: Performed By: #### CMP, BNP ####[facility] Zxcjyyjbnf16[address] [place], [place] [address]Dr. Yuki Diaz Urea nitrogen/Creatin ine [Mass ratio] 19.0 mg/mg Normal [facility] Comment on above: Performed By: #### CMP, BNP ####[facility] Luwaqtfgop[address] [place], [place] [address]Dr. Yuki Diaz BNPon 12-28-2021 Natriuretic peptide B (Bld) [Mass/Vol] 1699.0 pg/mL Normal <=1,800.0 [facility] Comment on above: Performed By: #### TSH, BNP, CMP ####[facility] Nfpxrwiruv3704[address] [place], [place] [address]Dr. Yuki Diaz CARDIAC RACHEL 3-6on 2 CK [Catalytic activity/Vol] 93 U/L Normal 39-308 [facility] Comment on above: Performed By: #### CMREP ####[facility] Ytlqjmtiye564[address] [place], [place] [address]Dr. Yuki Diaz CK.MB [Mass/Vol] 2.99 ng/mL Normal <=3.60 [facility] Comment on above: Performed By: #### CMREP ####[facility] Jrhjkvjcfi9[address] [place] [address]Dr. Yuki Diaz HSTROP 30.7 pg/mL Normal 4.0-76.1 [facility] Comment on above: Result Comment: CUT-OFF POINTS HAVE BEEN ESTABLISHED BASED ON THE FOURTH UNIVERSAL DEFINITIONS OF MYOCARDIALINFARCTION. THE UPPER REFERENCE LIMIT (URL) OF TROPONIN, DEFINED THE 99TH PERCENTILE OFcTnI DISTRIBUTION IN A REFERENCE POPULATION, HAS BEEN CONFIRMED THE DECISION THRESHOLDFOR ID DIAGNOSIS. Performed By: #### C MREP ####[facility] Thindknbrg64[address] [place] [address]Dr. Yuki Joe CK [Catalytic activity/Vol] 107 U/L Normal 39-308 [facility] Comment on above: Performed By: #### CMREP ####[facility] Ubbiqzjhow19[address] [place], [place] [address]Dr. Yuki Joe CK.MB [Mass/Vol] 3.26 ng/mL Normal <=3.60 [facility] Comment on above: Performed By: #### CMREP ####[facility] Uklxrsfmqi7756[address] [place], [place] [address]Dr. Yuki Diaz HSTROP 27.1 pg/mL Normal 4.0-76.1 [facility] Comment on above: Result Comment: CUT-OFF POINTS HAVE BEEN ESTABLISHED BASED ON THE [facility] UNIVERSAL DEFINITIONS OF MYOCARDIALINFARCTION. THE UPPER REFERENCE LIMIT (URL) OF TROPONIN, DEFINED THE 99TH PERCENTILE OFcTnI DISTRIBUTION IN A REFERENCE POPULATION, HAS BEEN CONFIRMED THE DECISION THRESHOLDFOR ID DIAGNOSIS. Performed By: #### C MREP ####[facility] Zzlolhymhr[address] [place] [address]Dr. Yuki Diaz CARDIAC RACHEL ADMITon 022 CK [Catalytic activity/Vol] 101 U/L Normal 39-308 [facility] Comment on above: Performed By: #### CMADM ####[facility] Fxdczqdcri6236 [place] [address]Dr. Yuki Diaz CK.MB [Mass/Vol] 3.35 ng/mL Normal <=3.60 [facility] Comment on above: Performed By: #### CMADM ####[facility] Ckxwdmztph5[address] Yuki Diaz HSTROP 27.6 pg/mL Normal 4.0-76.1 [facility] Comment on above: Result Comment: CUT-OFF POINTS HAVE BEEN ESTABLISHED BASED ON THE FOURTH UNIVERSAL DEFINITIONS OF MYOCARDIALINFARCTION. THE UPPER REFERENCE LIMIT (URL) OF TROPONIN, DEFINED THE 99TH PERCENTILE OFcTnI DISTRIBUTION IN A REFERENCE POPULATION, HAS BEEN CONFIRMED THE DECISION THRESHOLDFOR ID DIAGNOSIS. Performed By: #### C MADM ####[facility] Rcpnjjpgil[address] [place] [address]. Yuki Diaz DILSHAD 153 ng/mL Critically high 16-96 [facility] Comment on above: Performed By: #### CMADM ####[facility] Ewngzvjbpj05[address] [place], [place] [address]Dr. Yuki Diaz CBC AUTO DIFFon 12-28-2021 BASO # 0.0 103/ul Normal 0.0-0.1 [facility] Comment on above: Performed By: #### CBC ####[facility] ital Qvprvszcqi[address] [place] [address]. Yuki Diaz Basophils/100 WBC (Bld) 0.1 % Critically low 0.2-2.0 [facility] Comment on above: Performed By: #### CBC ####[facility] Zyfrkwffoo[address] Yuki Diaz EO # 0.1 103/ul Normal 0.0-0.7 [facility] Comment on above: Performed By: #### CBC ####[facility] Hdubdyizki5572[address] [place], [place] [address]Dr. Yuki Diaz Eosinophils/100 WBC (Bld) 0.8 % Critically low 0.9-7.0 [facility] Comment on above: Performed By: #### CBC ####[facility] Qilackxfyj8[address] [place], [place] [address]Dr. Yuki Diaz Erythrocyte distribution width (RBC) [Ratio] 14.2 % Normal 11.0-15.0 [facility] Comment on above: Performed By: #### CBC ####[facility] Bhlveynrna55[address] [place] [address]Dr. Yuki Diaz Hematocrit (Bld) [Volume fraction] 38.5 % Critically low 42.0-54.0 [facility] Comment on above: Performed By: #### CBC ####[facility] Vqohuycgus3673 [place] [address]Dr. Yuki Diaz Hemoglobin (Bld) [Mass/Vol] 12.3 g/dL Critically low 14.0-18.0 [facility] Comment on above: Performed By: #### CBC ####[facility] Lkdubjykpq8857 [place] [address]Dr. Yuki Diaz IG # 0.06 10e3/ul Critically high 0.00-0.03 [facility] Comment on above: Performed By: #### CBC ####[facility] Fseejqoial[address] [place], [place] [address]Dr. Yuki Diaz IG % 0.7 % Critically high 0.0-0.5 [facility] Comment on above: Performed By: #### CBC ####[facility] Cpfrhvdsji3475 [place] [address]Dr. Yuki Diaz LYMPH # 1.0 103/ul Critically low 1.2-3.8 [facility] Comment on above: Performed By: #### CBC ####[facility] Hxulsefnyc7736 [place] [address]Dr. Yuki Diaz Lymphocytes/100 WBC (Bld) 10.7 % Critically low 20.5-60.0 [facility] Comment on above: Performed By: #### CBC ####[facility] Uglpagwvdy11[address] [place], [place] [address]Dr. Yuki Diaz MANUAL DIFF REQ NO Normal [facility] Comment on above: Performed By: #### CBC ####[facility] Jvomurtrjj3744 [place] [address]Dr. Yuki Diaz MCH (RBC) [Entitic mass] 31.9 pg Normal 25.9-34.0 [facility] Comment on above: Performed By: #### CBC ####[facility] Wzukupqmvi9545 [place] [address]Dr. Yuki Diaz MCHC (RBC) [Mass/Vol] 31.9 g/dL Normal 29.9-35.2 [facility] Comment on above: Performed By: #### CBC ####[facility] Mjxpixvoir5936 [place] [address]Dr. Yuki Diaz MCV (RBC) [Entitic vol] 99.7 fL Critically high 80.0-94.0 [facility] Comment on above: Performed By: #### CBC ####[facility] Edbhhmwroy2032 [place] [address]Dr. Yuki Diaz MONO # 0.7 103/ul Normal 0.3-0.8 [facility] Comment on above: Performed By: #### CBC ####[facility] Yvuadeeevn8690 [place] [address]Dr. Yuki Diaz Monocytes/100 WBC (Bld) 7.2 % Normal 1.7-12.0 [facility] Comment on above: Performed By: #### CBC ####[facility] Ejswgaczby2712 [place] [address]Dr. Yuki Diaz NEUT # 7.4 103/ul Critically high 1.4-6.5 [facility] Comment on above: Performed By: #### CBC ####[facility] Jnhwoxyujw3677 [place] [address]Dr. Yuki Diaz Neutrophils/100 WBC (Bld) 80.5 % Critically high 43.0-75.0 [facility] Comment on above: Performed By: #### CBC ####[facility] Rnxdgsgycd6885 [place] [address]Dr. Yuki Diaz Platelet mean volume (Bld) [Entitic vol] 10.0 fL Normal 9.5-13.5 [facility] Comment on above: Performed By: #### CBC ####[facility] Bcevphdqjk9044 [place], [place] [address]Ob. Yuki Diaz PLT 194 103/ul Normal 150-450 [facility] Comment on above: Performed By: #### CBC ####[facility] Eutuxuaqgt2040 [place], [place] [address]Lr. Yuki Diaz RBC 3.86 106/ul Critically low 4.70-6.10 [facility] Comment on above: Performed By: #### CBC ####[facility] Gxaofoilms3982 [place], [place] [address]Vm. Yuki Diaz WBC 9.2 103/ul Normal 4.0-11.0 [facility] Comment on above: Performed By: #### CBC ####[facility] Zxlmlmrmyj8502 [place], [place] [address]Ok. Yuki Diaz Covid-19 PCR (CVDTB)on 12-06 SARS-CoV-2 (COVID-19) RNA JARVIS+probe Ql (Unsp spec) Not detected Normal NOT DETECTED [facility] Comment on above: Result Comment: When diagnostic testing is negative, the possibility of a false negative should be considered inthe context of a patient's recent exposures and the presence of clinical signs and symptomsconsistent with SARS-CoV-2.This test is not yet approved or cleared by the [place] Food and Drug Administration (FDA).This test was developed by [employer], [place], [place]. The performance characteristics ofthis test were validated by [facility]. The results are not intended to beused as the sole means for clinical diagnosis or patient management decisions. The [facility] is authorized under Clinical Laboratory Improvement Amendments (CLIA) to perform high-complexity testing.This test is not yet approved or cleared by the [place] FDA. When there are no FDA-approved or cleared tests available, and other criteria are met, FDA can make tests available under an emergency access mechanism called an Emergency Use Authorization (EUA). The EUA for this test is supported by the [employer] of Health and Human Service's declaration that [...] be used). Performed By: #### C VDTB ####[facility] Mtpltlbiqu5539 [place] [address]Dr. Yuki Diaz ER URINE PROFILEon 2 Bilirubin Ql (U) Negative Normal NEGATIVE [facility] Comment on above: Performed By: #### ERUR ####[facility] Ilsajwtoli3483 [place] [address]Dr. Monsealyssa Diaz Clarity (U) CLEAR Normal CLEAR [facility] Comment on above: Performed By: #### ERUR ####[facility] Nvkoagsfzn9906 [place] [address]Dr. Monsealyssa Diaz Color (U) YELLOW Normal YELLOW [facility] Comment on above: Performed By: #### ERUR ####[facility] Gobgjhqytw3202 [place] [address]Dr. Yuki Diaz ERUAHD A micrscopic examina tion will be performed if indicated. Normal [facility] Comment on above: Performed By: #### ERUR ####[facility] Ydefnhewkk9055 [place] [address]Dr. Monsealyssa Diaz Glucose Ql (U) Negative Normal NEGATIVE [facility] Comment on above: Performed By: #### ERUR ####[facility] Bdgmknumni8061 [place] [address]Dr. Monsealyssa Diaz Hemoglobin Ql (U) Negative Normal NEGATIVE [facility] Comment on above: Performed By: #### ERUR ####[facility] Xtjupsrmlo2300 [place] [address]Dr. Monsealyssa Diaz Ketones Ql (U) Negative Normal NEGATIVE [facility] Comment on above: Performed By: #### ERUR ####[facility] Btiajbjngv4313 [place] [address]Dr. Yuki Diaz LEUKOCYTES Negative Normal NEGATIVE [facility] Comment on above: Performed By: #### ERUR ####[facility] Lsdpprxixt6647 [place] [address]Dr. Yuki Diaz Nitrite Ql (U) Negative Normal NEGATIVE [facility] Comment on above: Performed By: #### ERUR ####[facility] Ygftpfxzpk9550 [place] [address]Dr. Yuki Diaz pH (U) 5.5 [pH] Normal 5-9 [facility] Comment on above: Performed By: #### ERUR ####[facility] Fpwwieucqr7864 [place] [address]Dr. Yuki Diaz Protein (U) [Mass/Vol] 100 mg/dL Abnormal NEGATIVE/ TRACE [facility] Comment on above: Performed By: #### ERUR ####[facility] Ixniqgyclz5113 [place] [address]Dr. Yuki Diaz SPEC GRAVITY >=1.030 Abnormal 1.005-<=1. 025 [facility] Comment on above: Performed By: #### ERUR ####[facility] Qivchtkzwp9470 [place] [address]Dr. Yuki Diaz UR MICRO IND NOT INDICATED Normal [facility] Comment on above: Performed By: #### ERUR ####[facility] Ewjykbtecn0600 [place] [address]Dr. Yuki Diaz Urobilinogen Qn (U) 0.2 {Chidi'U}/dL Normal 0.2 - 1.0 [facility] Comment on above: Performed By: #### ERUR ####[facility] Zwdmakgvro3048 [place] [address]Dr. Yuki Diaz LACTATE/LACTIC ACIDon 2021 Lactate [Moles/Vol] 2.2 mmol/L Critically high 0.4-1.9 [facility] Comment on above: Performed By: #### LACT ####[facility] Igmnwjrbrw8350 [place] [address]Dr. Yuki Diaz POINT OF CARE GLUCOSEon 12-06 Glucose [Mass/Vol] 183 mg/dL Critically high 74-106 [facility] Comment on above: Performed By: #### POCGLUC ####[facility] Bvguxizhmi9757 [place] [address]Dr. Yuki Diaz Glucose [Mass/Vol] 167 mg/dL Critically high 74-106 [facility] Comment on above: Performed By: #### POCGLUC ####[facility] Yvwcywdidv1471 [place] [address]Dr. Yuki Diaz PROF 14(COMP METB)on 022 Albumin [Mass/Vol] 2.9 g/dL Critically low 3.4-5.0 [facility] Comment on above: Performed By: #### TSH, BNP, CMP ####[facility] Hvuxnjqlgy0325 [place] [address]Dr. Yuki Diaz Albumin/Globulin [Mass ratio] 0.9 {ratio} Normal [facility] Comment on above: Performed By: #### TSH, BNP, CMP ####[facility] Svleigrdee3863[address] [place], [place] [address]Dr. Yuki Diaz ALP [Catalytic activity/Vol] 83 U/L Normal 46-116 [facility] Comment on above: Performed By: #### TSH, BNP, CMP ####[facility] Flfjtfisrj4546[address] [place], [place] [address]Dr. Yuki Diaz ALT [Catalytic activity/Vol] 98 U/L Critically high 16-63 [facility] Comment on above: Performed By: #### TSH, BNP, CMP ####[facility] Ilheumagdc6963 [place] [address]Dr. Yuki Diaz Anion gap [Moles/Vol] 11.6 mmol/L Normal [facility] Comment on above: Performed By: #### TSH, BNP, CMP ####[facility] Sqepavsrhm2385 [place] [address]Dr. Yuki Diaz AST [Catalytic activity/Vol] 51 U/L Critically high 15-37 [facility] Comment on above: Performed By: #### TSH, BNP, CMP ####[facility] Cwzvjgfdin6853 [place] [address]Dr. Yuki Diaz Bilirubin [Mass/Vol] 0.9 mg/dL Normal 0.2-1.0 [facility] Comment on above: Performed By: #### TSH, BNP, CMP ####[facility] Xwzmvnlzjt1983[address] [place], [place] [address]Dr. Yuki Diaz Calcium [Mass/Vol] 8.3 mg/dL Critically low 8.5-10.1 [facility] Comment on above: Performed By: #### TSH, BNP, CMP ####[facility] Ukmntpjisn26[address] [place], [place] [address]Dr. Yuki Diaz Chloride [Moles/Vol] 106 mmol/L Normal 98-107 [facility] Comment on above: Performed By: #### TSH, BNP, CMP ####[facility] Jzbnchtxpf0029[address] [place], [place] [address]Dr. Yuki Diaz CO2 [Moles/Vol] 28.2 mmol/L Normal 21.0-32.0 [facility] Comment on above: Performed By: #### TSH, BNP, CMP ####[facility] Jqxsnlkflp4267[address] [place], [place] [address]Dr. Yuki Diaz Creatinine [Mass/Vol] 1.84 mg/dL Critically high 0.70-1.30 [facility] Comment on above: Performed By: #### TSH, BNP, CMP ####[facility] Aqqkmokfhu6025[address] [place], [place] [address]Dr. Yuki Diaz EGFR-AF EGYPTIAN 43 mL/min/1.73m2 Critically low >=60 [facility] Comment on above: Performed By: #### TSH, BNP, CMP ####[facility] Licotlcwuh7413[address] [place], [place] [address]Dr. Yuki Diaz EGFR-NON AF EGYPTIAN 36 mL/min/1.73m2 Critically low >=60 [facility] Comment on above: Performed By: #### TSH, BNP, CMP ####[facility] Rcfoputznn9501[address] [place], [place] [address]Dr. Yuki Diaz Globulin (S) [Mass/Vol] 3.3 g/dL Normal [facility] Comment on above: Performed By: #### TSH, BNP, CMP ####[facility] Fchwssambo2248 [place] [address]Dr. Yuki Diaz Glucose [Mass/Vol] 202 mg/dL Critically high 74-106 [facility] Comment on above: Performed By: #### TSH, BNP, CMP ####[facility] Unxqlqsutw7487 [place] [address]Dr. Yuki Diaz Potassium [Moles/Vol] 3.8 mmol/L Normal 3.5-5.1 [facility] Comment on above: Performed By: #### TSH, BNP, CMP ####[facility] Lheorjifoo6[address] [place], [place] [address]Dr. Yuki Diaz Protein [Mass/Vol] 6.2 g/dL Critically low 6.4-8.2 [facility] Comment on above: Performed By: #### TSH, BNP, CMP ####[facility] Vjkhuzawvq7[address] [place], [place] [address]Dr. Yuki Diaz Sodium [Moles/Vol] 142 mmol/L Normal 136-145 [facility] Comment on above: Performed By: #### TSH, BNP, CMP ####[facility] Jdrtdeoqjc4064[address] [place], [place] [address]Dr. Yuki Diaz Urea nitrogen [Mass/Vol] 28.0 mg/dL Critically high 7.0-18.0 [facility] Comment on above: Performed By: #### TSH, BNP, CMP ####[facility] Ihwcjfjxzi[address] [place], [place] [address]Dr. Yuki Diaz Urea nitrogen/Creatin ine [Mass ratio] 15.2 mg/mg Normal [facility] Comment on above: Performed By: #### TSH, BNP, CMP ####[facility] Eadmvayjdi11[address] [place], [place] [address]Dr. Yuki Diaz TSHon 12-28-2021 TSH 1.808 uIU/mL Normal 0.358-3.74 0 [facility] Comment on above: Performed By: #### TSH, BNP, CMP ####[facility] Tvofpzbcnw5[address] [place], [place] [address]Dr. Yuki Diaz TSH RANGE SEE BELOW Normal [facility] Comment on above: Result Comment: <0.34 UIU/ml HYPERTHYROI D 0.34-5.60 UIU/ml EUTHYROID >5.60 UIU/ml HYPOTHYROID Performed By: #### T SH, BNP, CMP ####[facility] Dinqvpnoyk18[address] [place] [address]Dr. Yuki Diaz XR CHEST 1 Von 12-28-2021 XR CHEST 1 V Normal [facility] BNPon 12-22-2021 Natriuretic peptide B (Bld) [Mass/Vol] 2907.0 pg/mL Critically high <=1,800.0 [facility] Comment on above: Performed By: #### BNP ####[facility] ital Gzyxdxviux2357 [place] [address]Dr. Yuki Diaz PROF 14(COMP METB)on 022 Albumin [Mass/Vol] 3.0 g/dL Critically low 3.4-5.0 [facility] Comment on above: Performed By: #### CMP ####[facility] Ymlzbpxwkd2086 [place] [address]Dr. Yuki Diaz Albumin/Globulin [Mass ratio] 0.9 {ratio} Normal [facility] Comment on above: Performed By: #### CMP ####[facility] ital [id number] [place] [address]Dr. Yuki Diaz ALP [Catalytic activity/Vol] 94 U/L Normal 46-116 [facility] Comment on above: Performed By: #### CMP ####[facility] ital Lghcsxpmoc8549 [place] [address]Dr. Yuki Diaz ALT [Catalytic activity/Vol] 39 U/L Normal 16-63 [facility] Comment on above: Performed By: #### CMP ####[facility] ital Madpnertsf2293 [place] [address]Dr. Yuki Diaz Anion gap [Moles/Vol] 13.4 mmol/L Normal [facility] Comment on above: Performed By: #### CMP ####[facility] ital Otlkzuwhlf8869 [place] [address]Dr. Yuki Diaz AST [Catalytic activity/Vol] 11 U/L Critically low 15-37 [facility] Comment on above: Performed By: #### CMP ####[facility] ital Fwzfhjiozd8471 [place] [id number]. Yuki Diaz Bilirubin [Mass/Vol] 0.5 mg/dL Normal 0.2-1.0 [facility] Comment on above: Performed By: #### CMP ####[facility] ital Yisxweentk5189 [place] [id number]. Yuki Diaz Calcium [Mass/Vol] 8.5 mg/dL Normal 8.5-10.1 [facility] Comment on above: Performed By: #### CMP ####[facility] ital Jonwenndbh0558 [place] [address]Dr. Yuki Joe Chloride [Moles/Vol] 110 mmol/L Critically high 98-107 [facility] Comment on above: Performed By: #### CMP ####[facility] ital Djyeqcniaq8705 [place] [address]Dr. Yuki Joe CO2 [Moles/Vol] 26.1 mmol/L Normal 21.0-32.0 [facility] Comment on above: Performed By: #### CMP ####[facility] ital Gqzpssibwe4241 [place] [address]Dr. Yuki Joe Creatinine [Mass/Vol] 1.71 mg/dL Critically high 0.70-1.30 [facility] Comment on above: Performed By: #### CMP ####[facility] ital Zrjxvogppc3282 [place] [address]Dr. Yuki Joe EGFR-AF EGYPTIAN 47 mL/min/1.73m2 Critically low >=60 [facility] Comment on above: Performed By: #### CMP ####[facility] ital Eroeozzlxt9361 [place] [phone]. Monsealyssa Joe EGFR-NON AF EGYPTIAN 39 mL/min/1.73m2 Critically low >=60 [facility] Comment on above: Performed By: #### CMP ####[facility] ital Mmrwuhwhdc6745 [place] [phone]. Yuki Joe Globulin (S) [Mass/Vol] 3.4 g/dL Normal [facility] Comment on above: Performed By: #### CMP ####[facility] ital Qlwzmcsvgp5503 [place] [address]Dr. Yuki Diaz Glucose [Mass/Vol] 211 mg/dL Critically high 74-106 [facility] Comment on above: Performed By: #### CMP ####[facility] ital Sqlfgkpffq7499 [place] [address]Dr. Yuki Diaz Potassium [Moles/Vol] 4.5 mmol/L Normal 3.5-5.1 [facility] Comment on above: Performed By: #### CMP ####[facility] ital Ifvurwynut9109 [place] [address]Dr. Yuki Diaz Protein [Mass/Vol] 6.4 g/dL Normal 6.4-8.2 [facility] Comment on above: Performed By: #### CMP ####[facility] ital Ujkhqqjcqd9907 [place] [address]Dr. Yuki Diaz Sodium [Moles/Vol] 145 mmol/L Normal 136-145 [facility] Comment on above: Performed By: #### CMP ####[facility] ital Jahbdaahum0629 [place] [address]Dr. Yuki Diaz Urea nitrogen [Mass/Vol] 33.0 mg/dL Critically high 7.0-18.0 [facility] Comment on above: Performed By: #### CMP ####[facility] ital Ntvxyxpepo8340 [place] [address]Dr. Yuki Diaz Urea nitrogen/Creatin ine [Mass ratio] 19.3 mg/mg Normal [facility] Comment on above: Performed By: #### CMP ####[facility] ital Ympmfvesdu8029 [place] [address]Dr. Yuki Joe Lab Reportson 12-15-2021 Lab Reports [id number]:127 Normal [facility] BASIC METABOLIC PANELon 08-0 Calcium mass conc 9.1 mg/dL Normal 8.6-10.3 [facility] Comment on above: Order Comment: No: Do not add to previou s draw Performed By: #### 5 0103 ####[facility] [place] [address], [facility] Chloride molar conc 104 mmol/L Normal 98-107 [facility] Comment on above: Order Comment: No: Do not add to previou s draw Performed By: #### 5 0103 ####[facility] [place] [address], [place] CO2 molar conc 27 mmol/L Normal 21-31 [facility] Comment on above: Order Comment: No: Do not add to previou s draw Performed By: #### 5 0103 ####[facility] [place] [address], [place] Creatinine mass conc 1.29 mg/dL Normal 0.70-1.30 [facility] Comment on above: Order Comment: No: Do not add to previou s draw Performed By: #### 5 0103 ####[facility] [place] [address], [place] GFR/1.73 sq M predicted among blacks MDRD vol rate/area (S/P/Bld) mL/min/{1.73_m2} Normal >60 [facility] Comment on above: Order Comment: No: Do not add to previou s draw Result Comment: Calc ulation may not be valid for patients over 70 years Performed By: #### 5 0103 ####[facility] [place] [address], [place] GFR/1.73 sq M predicted among non-blacks MDRD vol rate/area (S/P/Bld) 54 ml/min/1.73sq m Abnormal >60 [facility] Comment on above: Order Comment: No: Do not add to previou s draw Result Comment: Calc ulation may not be valid for patients over 70 years Performed By: #### 5 0103 ####[facility] [place] [address], [facility] Glucose mass conc 109 mg/dL High 70-100 [facility] Comment on above: Order Comment: No: Do not add to previou s draw Performed By: #### 5 0103 ####[facility] [place] [address], [facility] Potassium molar conc 3.6 mmol/L Normal 3.5-5.1 [facility] Comment on above: Order Comment: No: Do not add to previou s draw Performed By: #### 5 0103 ####[facility] [place] [address], [facility] Sodium molar conc 139 mmol/L Normal 136-145 [facility] Comment on above: Order Comment: No: Do not add to previou s draw Performed By: #### 5 0103 ####[facility] [place] [address], [facility] Urea nitrogen mass conc 19 mg/dL Normal 7-25 [facility] Comment on above: Order Comment: No: Do not add to previou s draw Performed By: #### 5 0103 ####[facility] CBC COMPLETE BLOOD COUNTon 0 - Erythrocyte distribution width Auto Ratio (RBC) 13.2 % Normal 11.5-15.0 [facility] Comment on above: Order Comment: No: Do not add to previou s draw Performed By: #### 5 0103 ####[facility] [place] [address], [facility] Hematocrit Auto Volume Fraction (Bld) 42.2 % Normal 39.0-50.0 [facility] Comment on above: Order Comment: No: Do not add to previou s draw Performed By: #### 5 0103 ####[facility] Hemoglobin mass conc (Bld) 13.9 g/dL Normal 13.0-17.0 [facility] Comment on above: Order Comment: No: Do not add to previou s draw Performed By: #### 5 0103 ####[facility] MCH Auto Entitic mass (RBC) 29.7 pg Normal 27.0-33.0 [facility] Comment on above: Order Comment: No: Do not add to previou s draw Performed By: #### 5 0103 ####[facility] [facility] MCHC Auto mass conc (RBC) 32.9 g/dL Normal 32.0-35.0 [facility] Comment on above: Order Comment: No: Do not add to previou s draw Performed By: #### 5 0103 ####[facility] [facility] MCV Auto Entitic volume (RBC) 90.2 fL Normal 82.0-98.0 [facility] Comment on above: Order Comment: No: Do not add to previou s draw Performed By: #### 5 0103 ####[facility] [facility] Nucleated RBC/100 WBC Ratio (Bld) 0 % Normal 0-0 [facility] Comment on above: Order Comment: No: Do not add to previou s draw Performed By: #### 5 0103 ####[facility] [place] [address], [facility] PLAT CNT 226 10*3/uL Normal 150-400 [facility] Comment on above: Order Comment: No: Do not add to previou s draw Performed By: #### 5 0103 ####[facility] RBC Auto #/vol (Bld) 4.68 10*6/uL Normal 4.20-5.70 [facility] Comment on above: Order Comment: No: Do not add to previou s draw Performed By: #### 5 0103 ####[facility] WBC Auto #/vol (Bld) 6.80 10*3/uL Normal 4.00-10.60 [facility] Comment on above: Order Comment: No: Do not add to previou s draw Performed By: #### 5 0103 ####[facility] Cardiovascular Lab Reporton 03-10-2018 Cardiovascular Lab Report [facility] Patient Name: Juancarlos [facility] MR #: [id number] Physician: Oren Zafar M.D.Medicine Service Date: 03/09/2018Division of Birthdate: 2Cardiology Room #: 3CD [id number] CardiovascularServicA[place] [address]Phone Fax Cardiovascular Laboratory ReportCARDIAC CATHETERIZATION REPORTINDICATION: Sheng [...] signed informed consent. He was brought to cathode ray tube assembler in a fasting state.The right groin area was prepped and draped in usual fashion. Usingmicropuncture technique, the right common femoral artery was accessed. Theinner cannula was advanced, limited femoral angiography was performed.Followed by upsizing to a 6-Norwegian x 11 cm sheath. Bilateral selectivecoronary angiography was then performed using 6-Norwegian JL4 and AQ4yptgodhdlt catheters. The 6-Norwegian JR4 diagnostic catheter was used toselectively engage the radial graft to the OM2 and saphenous venous graftto the PDA branch. Angiography was performed. Catheter was removed. A6-Norwegian GEOVANNY catheter was used to selectively engage the left subclavianartery and then selectively engage the left internal mammary artery.Angiography was performed. Catheter was removed.Heparin was administered intravenously and therapeutic ACT confirmed duringthe procedure. A 6-Norwegian XB 3.0 guiding catheter was advanced and used toengage the left main coronary ostium. A Cowgill wire was advanced into thedistal circumflex. Balloon angioplasty in the mid circumflex was performedusing Emerge 3.0 x 15 mm balloon inflated at 10 atmospheres. Angiographyof this revealed suboptimal result. Therefore, a Synergy 3.0 x 24 mmdrug-eluting stent was deployed at 12 atmospheres and post dilated using NCQuantum [place] 3.0 x 20 mm noncompliant balloon inflated at 18 atmospheresthroughout the length of the stent. Angiography after administration ofintracoronary nitroglycerin showed excellent result with reduction of thestenosis to 0%. No evidence of dissection or perforation. The guidingcatheter was removed. The right femoral arteriotomy was managed with a6-Norwegian Angio-Seal device with good hemostasis. He was [...] The distal LAD has moderate diffuse disease gigujaf92%-70% beyond the anastomosis of the VEGA graft.Circumflex [...] 03/09/2018/06:08 P/Oren Simon M.D.Date Trans: 03/10/2018 04:31 A/mmoDN_[id number]: Derrick Lopez M.D. [address] [place] [address] [place] [facility] Discharge Summaryon 03-10-20 Discharge Summary MR#: [id number] [facility] Admitted: [...] as listed above, who was sent from [facility] due to concernof possible ACS. Apparently, the patient presented to [facility] complainingof dizziness and vomiting, which was his presenting complaint prior toneeding his last CABG 16 years ago. EKG at [facility] showed new T-waveinversions in the inferior leads, not there on previous EKG. Firsttroponin was negative and floor winder here at [facility], recommended to beingthe patient to be sent to [facility] for cardiac cath. The patient was admittedto Medicine on step-down service and Cardiology was consulted. The patientpreviously had stress test within the past 2 years, which was negative andrecent echocardiogram per patient history, which was performed 6 months agoshowed improvement regarding wall motion abnormalities and ejectionfraction. The patient was taken to cathode ray tube assembler following day after admission,revealing patent 3/3 bypass [...] taking and to discuss high-intensity statinwith his floor winder, which he will be follow up with [...] Dict: 03/10/2018/12:04 P/TAYLOR Lua-CDate Trans: 03/10/2018 07:17 P/Esdras_JN:[id number]: Derrick Lopez M.D. [address] [place] [address] Normal [facility] POC GLUCOSE LABon 03-10-2018 Glucose mass conc 256 mg/dL High 70-100 [facility] Comment on above: Performed By: #### 41352, 47768, 19836, 26481, 47602 ####[facility] [place] [address], [facility] Glucose mass conc 160 mg/dL High 70-100 [facility] Comment on above: Performed By: #### 41710, 36815, 41447, 91422, 09994 ####[facility] [place] [address], [facility] BASIC METABOLIC PANELon Calcium mass conc 9.1 mg/dL Normal 8.6-10.3 [facility] Comment on above: Order Comment: No: Do not add to previou s draw Performed By: #### 5 0103 ####[facility] [place] [address], [facility] Chloride molar conc 103 mmol/L Normal 98-107 [facility] Comment on above: Order Comment: No: Do not add to previou s draw Performed By: #### 5 0103 ####[facility] [facility] [place] [address], [place] CO2 molar conc 28 mmol/L Normal 21-31 [facility] Comment on above: Order Comment: No: Do not add to previou s draw Performed By: #### 5 0103 ####[facility] [place] [address], [place] Creatinine mass conc 1.20 mg/dL Normal 0.70-1.30 [facility] Comment on above: Order Comment: No: Do not add to previou s draw Performed By: #### 5 0103 ####[facility] [place] [address], [facility] GFR/1.73 sq M predicted among blacks MDRD vol rate/area (S/P/Bld) mL/min/{1.73_m2} Normal >60 [facility] Comment on above: Order Comment: No: Do not add to previou s draw Result Comment: Calc ulation may not be valid for patients over 70 years Performed By: #### 5 0103 ####[facility] [place] [address], [facility] GFR/1.73 sq M predicted among non-blacks MDRD vol rate/area (S/P/Bld) 59 ml/min/1.73sq m Abnormal >60 [facility] Comment on above: Order Comment: No: Do not add to previou s draw Result Comment: Calc ulation may not be valid for patients over 70 years Performed By: #### 5 0103 ####[facility] [facility] [place] [address], [facility] Glucose mass conc 96 mg/dL Normal 70-100 [facility] Comment on above: Order Comment: No: Do not add to previou s draw Performed By: #### 5 0103 ####[facility] [facility] [place] [place] [address], [place] Potassium molar conc 3.7 mmol/L Normal 3.5-5.1 [facility] Comment on above: Order Comment: No: Do not add to previou s draw Performed By: #### 5 0103 ####[facility] [place] [address], [place] Sodium molar conc 140 mmol/L Normal 136-145 [facility] Comment on above: Order Comment: No: Do not add to previou s draw Performed By: #### 5 0103 ####[facility] [place] [address], [place] Urea nitrogen mass conc 19 mg/dL Normal 7-25 [facility] Comment on above: Order Comment: No: Do not add to previou s draw Performed By: #### 5 0103 ####[facility]3000 [facility].[address] POC GLUCOSE LABon 03-09-2018 Glucose mass conc 155 mg/dL High 70-100 [facility] Comment on above: Performed By: #### [id number] ####[facility] [facility].[address] Glucose mass conc 91 mg/dL Normal 70-100 [facility] Comment on above: Performed By: #### 10558 ####[facility] [facility].[address] Glucose mass conc 107 mg/dL High 70-100 [facility] Comment on above: Performed By: #### 28724 ####[facility] [facility].[address] Glucose mass conc 115 mg/dL High 70-100 [facility] Comment on above: Performed By: #### 29724 ####[facility] [facility].[address] UFH HEPARIN ASSAYon 03-09-20 18 UNFRACTIONATED HEPARIN 0.42 IU/mL Normal 0.30-0.70 [facility] Comment on above: Result Comment: Rivaroxaban and Apixaban will interfere with the anti Xa assay used tomonitor UFH and LMWH. Performed By: #### 5 0103 ####[facility] [facility] [place] [place] [address], [facility] UNFRACTIONATED HEPARIN 0.27 IU/mL Low 0.30-0.70 [facility] Comment on above: Result Comment: Rivaroxaban and Apixaban will interfere with the anti Xa assay used tomonitor UFH and LMWH. Performed By: #### 5 0103 ####[facility]3000 [facility].[address] APTTon 03-08-2018 aPTT Coag time (Bld) 68.3 s High 25.0-35.0 [facility] Comment on above: Order Comment: No: [...] UFH <0.1 Performed By: #### 5 7307, 70477 ####[facility] BASIC METABOLIC PANELon Calcium mass conc 9.4 mg/dL Normal 8.6-10.3 [facility] Comment on above: Order Comment: No: Do not add to previou s draw Performed By: #### 9 9909, 03478, 14484, 35517, 67800 ####[facility] [facility] [place] [place] [address], [facility] Chloride molar conc 105 mmol/L Normal 98-107 [facility] Comment on above: Order Comment: No: Do not add to previou s draw Performed By: #### 9 9909, 55714, 18181, 42908, 44146 ####[facility] [facility].[address] CO2 molar conc 28 mmol/L Normal 21-31 [facility] Comment on above: Order Comment: No: Do not add to previou s draw Performed By: #### 9 9909, 61939, 59726, 18260, 29940 ####[facility] [facility] [place] [address], [facility] Creatinine mass conc 1.13 mg/dL Normal 0.70-1.30 [facility] Comment on above: Order Comment: No: Do not add to previou s draw Performed By: #### 9 9909, 87511, 12347, 30178, 89505 ####[facility] [facility] [place] [address], [facility] GFR/1.73 sq M predicted among blacks MDRD vol rate/area (S/P/Bld) mL/min/{1.73_m2} Normal >60 [facility] Comment on above: Order Comment: No: Do not add to previou s draw Result Comment: Calc ulation may not be valid for patients over 70 years Performed By: #### 9 9909, 86962, 57519, 28627, 65505 ####[facility] [facility] [place] [place] [address], [facility] GFR/1.73 sq M predicted among non-blacks MDRD vol rate/area (S/P/Bld) mL/min/{1.73_m2} Normal >60 [facility] Comment on above: Order Comment: No: Do not add to previou s draw Result Comment: Calc ulation may not be valid for patients over 70 years Performed By: #### 9 9909, 27094, 70117, 73899, 16401 ####[facility] [facility] [place] [place] [address], [facility] Glucose mass conc 108 mg/dL High 70-100 [facility] Comment on above: Order Comment: No: Do not add to previou s draw Performed By: #### 9 9909, 81865, 81816, 34226, 65007 ####[facility] [facility] [place] [place] [address], [place] Potassium molar conc 3.7 mmol/L Normal 3.5-5.1 [facility] Comment on above: Order Comment: No: Do not add to previou s draw Performed By: #### 9 9909, 42322, 55735, 38744, 56897 ####[facility] [place] [address], [place] Sodium molar conc 141 mmol/L Normal 136-145 [facility] Comment on above: Order Comment: No: Do not add to previou s draw Performed By: #### 9 9909, 27088, 17345, 95813, 12240 ####[facility] Urea nitrogen mass conc 21 mg/dL Normal 7-25 [facility] Comment on above: Order Comment: No: Do not add to previou s draw Performed By: #### 9 9909, 44140, 99628, 92019, 85249 ####[facility] CBC W/DIFFon 03-08-2018 ABS BASOPHILS 0.0 10*3/uL Normal 0.0-0.2 [facility] Comment on above: Performed By: #### 65458 ####[facility] ABS IMM GRANS 0.0 10*3/uL Normal 0.0-0.2 [facility] Comment on above: Performed By: #### 70552 ####[place] 505850 [address] ABS NEUTROPHILS 4.4 10*3/uL Normal 1.6-7.6 [facility] Comment on above: Performed By: #### 05071 ####[facility] Basophils Auto #/vol (Bld) 0.6 % Normal 0.0-1.0 [facility] Comment on above: Performed By: #### 76458 ####[facility] Eosinophils Auto #/vol (Bld) 0.3 10*3/uL Normal 0.0-0.5 [facility] Comment on above: Performed By: #### 71258 ####[facility] [facility].[address] Eosinophils/100 WBC Auto (Bld) 4.0 % Normal 0.0-6.0 [facility] Comment on above: Performed By: #### 06419 ####[facility] Erythrocyte distribution width Auto Ratio (RBC) 13.3 % Normal 11.5-15.0 [facility] Comment on above: Performed By: #### 76576 ####[place] 505850 [address] Hematocrit Auto Volume Fraction (Bld) 41.7 % Normal 39.0-50.0 [facility] Comment on above: Performed By: #### 44343 ####[place] 505850 [address] Hemoglobin mass conc (Bld) 13.7 g/dL Normal 13.0-17.0 [facility] Comment on above: Performed By: #### 10876 ####[address] IMMATURE GRANS 0.3 % Normal 0.0-1.0 [facility] Comment on above: Performed By: #### [id number] ####[place] [id number] Lymphocytes Auto #/vol (Bld) 1.7 10*3/uL Normal 1.2-4.0 [facility] Comment on above: Performed By: #### [id number] ####[place] [address] Lymphocytes/100 WBC Auto (Bld) 24.0 % Normal 20.0-45.0 [facility] Comment on above: Performed By: #### [id number] ####[facility] MCH Auto Entitic mass (RBC) 29.7 pg Normal 27.0-33.0 [facility] Comment on above: Performed By: #### [id number] ####[facility] MCHC Auto mass conc (RBC) 32.9 g/dL Normal 32.0-35.0 [facility] Comment on above: Performed By: #### 32889 ####[facility] MCV Auto Entitic volume (RBC) 90.3 fL Normal 82.0-98.0 [facility] Comment on above: Performed By: #### [id number] ####[place] [address] [address] Monocytes Auto #/vol (Bld) 0.6 10*3/uL Normal 0.1-1.0 [facility] Comment on above: Performed By: #### [id number] ####[facility] MONOS 7.9 % Normal 5.0-12.0 [facility] Comment on above: Performed By: #### [id number] ####[place] [address] Neutrophils/100 WBC Auto (Bld) 63.2 % Normal 40.0-72.0 [facility] Comment on above: Performed By: #### [id number] ####[place] [address] Nucleated RBC/100 WBC Ratio (Bld) 0 % Normal 0-0 [facility] Comment on above: Performed By: #### 87370 ####[facility] PLAT CNT 209 10*3/uL Normal 150-400 [facility] Comment on above: Performed By: #### 77316 ####[facility]3000 [facility].[address] RBC Auto #/vol (Bld) 4.62 10*6/uL Normal 4.20-5.70 [facility] Comment on above: Performed By: #### 73247 ####[facility]3000 [facility].[address] WBC Auto #/vol (Bld) 6.93 10*3/uL Normal 4.00-10.60 [facility] Comment on above: Performed By: #### [id number] ####[facility] History and Physicalon 03-08 History and Physical MR#: [id number] Sheng Bauer Admitted: 03/08/2018 Date of : 1940 Attending Physician: Shiva Seay MD Room #: [id number] Discharge Date: HISTORY AND PHYSICALCHIEF COMPLAINT: Dizziness and vomiting.HISTORY OF PRESENT ILLNESS: This patient is 77-year-old male with pastmedical history of coronary artery disease, status post CABG 16 years ago,hypertension, hyperlipidemia, and diabetes, who was sent from [facility] because of possibility of ACS. The patient presented to [facility] complaining of dizziness and vomiting while he was working on [employer]. The patient stated that he had similar symptoms when he had hisheart attack 16 years ago that ended up having CABG. In the [facility], his EKG showed new T inversions in inferior leads, which theywere not there previously. The 1st troponin was negative. The ER doctorcalled his floor winder, Dr. Simon, who [facility] [...] Dict: 03/08/2018/05:06 P/Lizbeth Singh Trans: 03/08/2018 05:31 P/[id number] Normal [facility] LIVER BATTERYon 03-08-2018 Albumin mass conc 4.0 g/dL Normal 3.5-5.7 [facility] Comment on above: Order Comment: No: Do not add to previou s draw Performed By: #### 9 9909, 65259, 19574, 26270, 80508 ####[facility] [place] [address], [facility] ALKALINE PHOSPH 53 IU/L Normal 34-104 [facility] Comment on above: Order Comment: No: Do not add to previou s draw Performed By: #### 9 9909, 22871, 17988, 57357, 82342 ####[facility] [place] [address], [facility] ALT enzyme act/vol 21 U/L Normal 7-52 [facility] Comment on above: Order Comment: No: Do not add to previou s draw Performed By: #### 9 9909, 48944, 27442, 40815, 42598 ####[facility] [place] [address], [place] AST enzyme act/vol 19 U/L Normal 13-39 [facility] Comment on above: Order Comment: No: Do not add to previou s draw Performed By: #### 9 9909, 04336, 26672, 49115, 98233 ####[facility] [place] [address], [place] Bilirubin mass conc 0.8 mg/dL Normal 0.3-1.0 [facility] Comment on above: Order Comment: No: Do not add to previou s draw Performed By: #### 9 9909, 02034, 41317, 04493, 18736 ####[facility] [place] [address], [place] Bilirubin.direct mass conc 0.2 mg/dL Normal 0.0-0.2 [facility] Comment on above: Order Comment: No: Do not add to previou s draw Performed By: #### 9 9909, 46117, 08210, 01040, 15190 ####[facility] [place] [address], [facility] Protein mass conc 7.1 g/dL Normal 6.0-8.3 [facility] Comment on above: Order Comment: No: Do not add to previou s draw Performed By: #### 9 9909, 93682, 30577, 17911, 88734 ####[facility] [place] [address], [facility] MAGNESIUM BLOODon 03-08-2018 Magnesium mass conc 2.0 mg/dL Normal 1.9-2.7 [facility] Comment on above: Order Comment: No: Do not add to previou s draw Performed By: #### 9 9909, 11548, 55178, 97480, 30461 ####[facility] [place] [address], [facility] PHOSPHORUS BLOODon 8 Phosphate mass conc 3.2 mg/dL Normal 2.5-5.0 [facility] Comment on above: Order Comment: No: Do not add to previou s draw Performed By: #### 9 9909, 46636, 85727, 54764, 95077 ####[facility] [place] [address], [facility] POC GLUCOSE LABon 03-08-2018 Glucose mass conc 164 mg/dL High 70-100 [facility] Comment on above: Performed By: #### 06661 ####[facility] [place] [address], [facility] Glucose mass conc 114 mg/dL High 70-100 [facility] Comment on above: Performed By: #### 48836 ####[facility] PROTHROMBIN TIMEon 8 INR Coag RelTime (PPP) 1.11 {INR} Normal 0.91-1.16 [facility] Comment on above: Order Comment: No: [...] OF ACTION, CLINICALEFFECTIVENESS, AND OPTIMAL THERAPEUTIC RANGE. [id number]. Performed By: #### 5 7307, 62506 ####[facility]3000 [facility].[address] Prothrombin time (PT) Coag time (PPP) 14.3 s Normal 12.3-14.8 [facility] Comment on above: Order Comment: No: Do not add to previou s draw Result Comment: ALL RESULTS MUST BE INTERPRETED WITH RESPECT TO BLOOD DRAWING ARTIFACTOR DILUTION ERROR OF ANTICOAGULANT AT THE TIME OF SAMPLING. Performed By: #### 5 7307, 16482 ####[facility] TROPONIN-Ion 03-08-2018 Troponin I.cardiac mass conc 0.01 ng/mL Normal 0.00-0.04 [facility] Comment on above: Order Comment: No: Do not add to previou s draw Result Comment: REFE RENCE RANGES: 0.00 - 0.04 ng/ml NORMAL 0.05 - 0.50 ng/ml INDETERMINATE > 0.50 ng/ml CONSISTENT WITH AN M.I. Performed By: #### 9 9909, 11658, 26759, 35757, 70296 ####[facility] Vital Signs Date Time Vital Sign Value Performing Clinician Kristie kerr 02-15-2022 10:03-0400 Blood Pressure Location César Godron Jr. [facility] 02-15-2022 10:03-0400 Diastolic blood pressure 66 mm[Hg] César Gordon Jr. [facility] 02-15-2022 10:03-0400 Heart rate 80 /min César Gordon Jr. [facility] 02-15-2022 10:03-0400 Respiratory rate 16 /min Césra Gordon Jr. [facility] 02-15-2022 10:03-0400 Systolic blood pressure 88 mm[Hg] César Gordon Jr. [facility] Encounters Encounter Date Encounter Type Care Provider Facility Start: 07-14-2023 End: 07-14-2023 ambulatory OREN SIOMN [facility] Start: 03-13-2023 End: 03-13-2023 ambulatory LEATHA MARROQUIN [facility] Start: 12-15-2022 End: 12-15-2022 ambulatory HUANG YOUNGBLOOD . Facility:[facility] Start: 11-23-2022 End: 11-24-[address] DERRICK LOPEZ . Facility:[facility] Start: 10-25-2022 End: 10-27-2022 Evaluation and management of inpatient DR DERRICK LOPEZ . Facility:[facility] Start: 10-22-2022 End: 10-22-2022 ambulatory LEVAR CABA . Facility:[facility] Start: 10-13-2022 End: 10-14-[address] DERRICK LOPEZ . Facility:[facility] Start: 09-20-2022 End: 09-21-2022 ambulatory TASHA OROZCO Facility:[facility] Start: 09-20-2022 End: 09-20-2022 Patient encounter procedure TASHA OROZCO [facility] Start: 09-19-2022 End: 09-20-[address] DERRICK LOPEZ . Facility:[facility] Start: 09-12-2022 End: 09-12-2022 [facility] Start: 09-02-2022 End: 09-03-[address] [...] Start: 02-15-2022 End: 02-16-2022 ambulatory César Gordon Facility:[facility] Start: 02-15-2022 End: 07-12-2022 Patient encounter procedure César Gordon Jr. [facility] Start: 02-09-[address] DERRICK LOPEZ [...] Evaluation and management of inpatient ZAYRA RAMIREZ Facility:[facility] Procedures Date Procedure Procedure Detail Performing Clinician Start: 11-23-[address] BRIANNE LOPEZ . Comment on above: Performed By: #### V ITAD, PSASC ####[facility] [address] [place] [address]Dr. Yuki Diaz Start: 10-25-2022 Transfusion of Nonau tologous Red Blood Cells into Peripheral Vein, Percutaneous Approach DR DERRICK LOPEZ . Start: 06-14-[address] BRIANNE LOPEZ . Comment on above: Performed By: #### P SAD ####[facility] [address] [place] [address]St. Yuki Diaz Start: 03-09-2018 DILATION OF 1 COR AR T WITH DRUG-ELUT INTRA, PERC APPROACH OREN JORBFERCHO Start: 03-09-2018 FLUOROSCOPY OF L INT MAMM GRAFT USING OTH CONTRAST OREN JORBFERCHO Start: 03-09-2018 FLUOROSCOPY OF MULT COR A GRAFT USING OTH CONTRAST OREN SIMON Start: 03-09-2018 FLUOROSCOPY OF MULTI PLE CORONARY ARTERIES USING OTH CONTRAST OREN SIMON Start: 03-30-2016 Cystourethroscopy [facility] dilation of urethral stricture César Gordon Jr. [...] vax César Gordon Jr. [facility] 05-13-2021 SARS-CoV-2 (COVID-19 ) mRNA BNT-162b2 vax TASHA OROZCO [facility] 05-10-2021 influenza virus vaccine, unspecified formulation TASHA OROZCO [facility] 12-05-2020 SARS-CoV-2 (COVID-19 ) mRNA BNT-162b2 vax César Gordon Jr. [facility] 11-05-2020 SARS-CoV-2 (COVID-19 ) mRNA BNT-162b2 vax César Gordon Jr. [facility] 10-02-2020 SARS-CoV-2 (COVID-19 ) mRNA BNT-162b2 vax TASHA OROZCO [facility] 09-04-2020 SARS-CoV-2 (COVID-19 ) mRNA BNT-162b2 vax TASHA OROZCO [facility] 05-06-2020 influenza virus vaccine, unspecified formulation TASHA OROZCO [facility] 05-30-2017 influenza, unspecifi ed formulation TASHA OROZCO [facility] 05-30-2017 pneumococcal conjuga te vaccine, 13 valent TASHA OROZCO [facility] 05-06-2016 influenza virus vaccine, unspecified formulation TASHA OROZCO [facility] Payers Date Payer Category Payer Private Health Insurance [id number] 1959 Self-pay 1940 Unknown [id number] 2.16.8 40.1.321630.3.579.2.727 1940 Unknown [id number] 2.16.8 40.1.250250.3.579.2.727 1940 Unknown [id number] 2.16.84 0.1.913440.3.579.2.593 1940 Unknown [id number] 2.16.84 0.1.456168.3.579.2.593 1942 Unknown [id number] 2.16.84 0.1.609914.3.579.2.593 1942 Unknown [id number] 2.16.84 0.1.833508.3.579.2.593 1942 Unknown [id number] 2.16.84 0.1.248425.3.579.2.593 1940 Unknown [id number] 2.16.84 0.1.766436.3.579.2.593 1942 Unknown [id number] 2.16.84 0.1.784881.3.579.2.593 1942 Unknown [id number] 2.16.84 0.1.894099.3.579.2.593 1942 Unknown [id number] 2.16.84 0.1.128024.3.579.2.593 1942 Unknown [id number] 2.16.84 0.1.278133.3.579.2.593 1942 Unknown [id number] 2.16.84 0.1.413177.3.579.2.593 1942 Unknown [id number] 2.16.84 0.1.078099.3.579.2.593 1942 Unknown [id number] 2.16.84 0.1.652132.3.579.2.593 1942 Unknown [id number] 2.16.84 0.1.488614.3.579.2.593 1942 Unknown [id number] 2.16.84 0.1.147907.3.579.2.593 1942 Unknown [id number] 2.16.84 0.1.139681.3.579.2.593 1942 Unknown [id number] 2.16.84 0.1.460901.3.579.2.593 1942 Unknown [id number] 2.16.84 0.1.190267.3.579.2.593 1942 Unknown [id number] 2.16.84 0.1.296334.3.579.2.593 1942 Unknown [id number] 2.16.84 0.1.029951.3.579.2.593 1942 Unknown [id number] 2.16.84 0.1.979506.3.579.2.593 1942 Unknown [id number] 2.16.84 0.1.778943.3.579.2.593 1942 Unknown [id number] 2.16.84 0.1.994758.3.579.2.593 1942 Unknown [id number] 2.16.84 0.1.712881.3.579.2.593 [facility] [id number] Social History Date Type Detail Facility Start: 02-15-2022 Tobacco smoking status Ex-smoker (fi nding) [facility] Sex Assigned At Male [facility] Functional Status Date Assessment Result Facility 02-15-2022 Functional Status N/A [facility] Clinical Notes 02-15-2022 to 07-14-2023 Note Date & Type Note Facility 07-14-2023 Note [facility] Subjective Sheng Bauer is a 83 y.o. year old male patient being seen for 3 mo follow up chronic systolic heart failure, CAD, and hypertension. He was admitted to [facility] in Apr 2023. Doing very well since then, as he denies chest pain, SOB, LE edema, and palpitations. Patient Active Problem List Diagnosis Coronary arteriosclerosis Hypertensive disorder Hx of CABG Chronic systolic heart failure ([facility]/HCC) Hx of deep venous thrombosis Diabetes mellitus [...] anemia, unspecified Major depressive disorder, recurrent, unspecified (CMS/[facility]) Limitation of activities due to disability Morbid [...] OM) in 2001. He has history of ID in 2001. He has hypertension on treatment. He has CKD. In 2017 he was admitted to [facility] transferred from the [facility] with symptoms of unstable angina and new onset T-wave inversions in the inferolateral leads. Cardiac cath was done and he underwent stenting of the circumflex with Synergy TONYA on 03/09/2018. He did get admitted in December 2019 to [facility] after a tree fell on him, [...] left side. Heart (more content not included)... [facility] 03-13-2023 Note Eliquis was decrease d to 2.5 mg bid per PCP in light of CKD, bruising of extremities and noted fall earlier this year. Currently in rhythm per assessment- continue coreg [facility] 03-13-2023 Note stable [facility] 03-13-2023 Note Monitored per PCP- Lauren lopez D/w pt that he may need referral to educational technology specialist in the future if kidney function worsens and he voiced understanding [facility] 03-13-[address] [facility] 03-13-2023 Note As above [facility] 03-13-2023 Note HTN well controlled 102/60- recently was inpt for hypotension and AMS- hydralazine was dc'd [facility] 03-13-2023 Note Coronary artery dise ase is stable without any concerning symptoms Continue GDMT- ASA, lipitor and coreg continue risk factor modifications- heart healthy diet, regular exercise as tolerated and continue all medications. [facility] 03-13-2023 Note [facility] II-III, current ly euvolemic without exacerbation, weight is currently down from last visit and overall pt is doing well Continue GDMT- ASA, lipitor, coreg, entrestot and aldatone Diuretic therapy- bumex 2 mg daily Monitor daily weights, I&O, fluid restriction 1.5-2L/day, renal function and electrolytes [facility] 03-13-2023 Note Patient here for 6 m o follow up CAD, hypertension, CHF, and hx of DVT. He was admitted to [facility] in January 2023 for pneumonia. Then [...] All other systems reviewed and are negative. [facility] 03-13-2023 Note [facility] ESS [...] hx of DVT. He was admitted to [facility] in March s/p fall, January 2023 for [...] OM) in 2001. He has history of ID in 2001. He has hypertension on treatment. He has CKD with Cr previously around 1.5. In 2017 he was admitted to [facility] transferred from the [facility] with symptoms of unstable angina and new onset T-wave inversions in the inferolateral leads. Cardiac cath was done and he underwent stenting of the circumflex with Synergy TONYA on 03/09/2018. He did get admitted in December 2019 to [facility] after a tree fell on him, [...] in the mo (more content not included)... [facility] 09-12-2022 Note [facility] Subjective Sheng Bauer is a 82 [...] OM) in 2001. He has history of ID in 2001. He has hypertension on treatment. He has CKD with Cr previously around 1.5. In 2017 he was admitted to [facility] transferred from the [facility] with symptoms of unstable angina and new onset T-wave inversions in the inferolateral leads. Cardiac cath was done and he underwent stenting of the circumflex with Synergy TONYA on 03/09/2018. He did get admitted in December 2019 to [facility] after a tree fell on him, [...] amitriptyline (Elavil) 2 (more content not included)... [facility] 02-15-2022 Hospital Discharge instructions Patient Education [...] including vitamins, herbs, eye drops, creams, and qkxq-dtv-monjrnp medicines. This also includes: ?Medicines to assist [...] 08/26/2005 Document Revised: 07/06/2018 Document Reviewed: 04/30/2018 [email or web address] Patient Education 2020 [employer]. Follow Up Care 08/10/2021 09:51:10 With:Evan Ochoa MD, César eVga, URO Address: [facility] [address], [place] [address]- When:Within 6 Month(s) Comments:w/ psa [facility] Evaluation + Plan note Future Appointments Appointment Date:08/23/2022 10:30:00 AM Scheduled Provider:César Gordon Jr., MD Location:[facility] Appointment Type:URO Office Visit Diagnostic Tests PendingPSA Total 02/15/22 [facility] Hospital course Narrative No data available for this section [facility] Hospital Discharge instructions No data available for this section [facility] Progress note No data available for this section [facility] Summary Purpose Family History No Family [...] and content) DATE CREATED AUTHOR 03/19/2018 [facility] DATE CREATED AUTHOR AUTHOR'S ORGANIZ ATION 09/21/2022 [facility] DATE CREATED AUTHOR AUTHOR'S ORGANIZ ATION 12/16/2022 [facility] [facility] DATE CREATED AUTHOR AUTHOR'S ORGANIZ ATION 07/17/2023 [facility] Care Team (unrecognized sect ion and content) Personnel Name: Derrick Lopez MD Address: [address] [place] [address] Personnel Name: Derrick Lopez MD Address: Address: [address] [place] [address] FOR RECORDS PERTAINING TO PATIENTS WHO ARE [...] BE BASED ON THE PRIMARY CLINICAL RECORDS. [facility] [employer] [facility]. provides no warranty or guarantee of the accuracy or completeness of information in this document.
--- NOTE | 2024-02-06 14:30 | P.HP_ITS ---
HPI H&P: HPI History of Present Illness Chief complaint: SHORTNESS OF BREATH/ CHEST PAIN/ HIP PAIN, WEAKNES Narrative: Patient was seen and evaluated in the office with increasing weakness and shortness of breath and status post fall x 2 in the last 4 days. Progressive swelling in his lower extremities. This is progressive symptoms recommend he be evaluated in the emergency room. In the emergency room he was evaluated and found to have acute combined congestive heart failure with significantly elevated BNP and peripheral edema. With his progressive symptoms patient was placed for admission. When I saw the patient he was resting comfortably, somewhat labored breathing. Especially with conversation. Denies chest pain. No other URI or UTI symptoms. Opioid HPI Opioid Management Most Recent Pain and Opioid Data: Last Pain Scale 3 05/01/23 07:40 Last Pain Intensity 0 02/08/23 10:25 Last Pain Assessment 02/07/24 06:00 Last ORT Total Score 0 02/06/24 14:21 Last ORT Risk Category Low Risk 02/06/24 14:21 Review of Systems ROS Status of ROS 10 or more systems reviewed and unremark able except as noted in history and below PFSH [facility] Medical History (Updated 02/07/24 @ 06:55 by Yao Lopez MD) Fall ?W19.XXXA - Unspecified fall, initial encounter (ICD-10) IDDM (insulin dependent diabetes mellitus) Altered mental status ?R41.82 - Altered mental status, unspecified (ICD-10) 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 ?N18.6 - End stage renal disease (ICD-10) ?D63.1 - Anemia in chronic kidney disease (ICD-10) CKD stage 3 due to type 2 diabetes mellitus ?E11.22 - Type 2 diabetes mellitus with diabetic chronic kidney disease (ICD- 10) ?N18.30 - Chronic kidney disease, stage 3 unspecified (ICD-10) Hypotension due to medication ?I95.2 - Hypotension due to drugs (ICD-10) Acute hypotension ?I95.9 - Hypotension, unspecified (ICD-10) Cellulitis ?L03.90 - Cellulitis, unspecified (ICD-10) Diabetes ?E11.9 - Type 2 diabetes mellitus without complications (ICD-10) Afib ?I48.91 - Unspecified atrial fibrillation (ICD-10) CHF (congestive heart failure) ?I50.9 - Heart failure, unspecified (ICD-10) Hypothyroidism ?E03.9 - Hypothyroidism, unspecified (ICD-10) HTN (hypertension) ?I10 - Essential (primary) hypertension (ICD-10) Acute renal failure ?N17.9 - Acute kidney failure, unspecified (ICD-10) Peripheral neuropathy ?G62.9 - Polyneuropathy, unspecified (ICD-10) Family History Other Family history of diabetes mellitus Social History Smoking status: Former smoker Non-prescribed substance use: denies use Highest level of school completed/degree received: 10th grade Are you now , , , , never or living with a partner: In a typical week, how many times do you talk on the telephone with family, friends, or neighbors: 3 or more times per week How often do you get together with friends or relatives: twice per week How often do you attend islam or restorationist services: 1-3 times per year Do you belong to any clubs or organizations such as islam groups unions, [employer] or athletic groups, or school groups: no Total score: 1 Score interpretation: A score of less than or equal to 1 indicates the most socially isolated. Little interest or pleasure in doing things: several days Feeling down, depressed, or hopeless: several days Feel stressed/tense/nervous/anxious/difficulty sleeping: not at all Life stressors: recent of family or friend Do you think of yourself as: straight/heterosexual Gender Identity: male Meds Home Medications and Allergies Home Medications ?Medication ?Instructions ?Recorded ?Confirmed ?Type atorvastatin 20 mg tablet 20 mg PO .QHS 01/28/23 02/06/24 History ferrous sulfate 325 mg (65 mg 325 mg PO QPM 01/28/23 02/06/24 History iron) tablet (FeroSul) levothyroxine 50 mcg tablet 50 mcg PO .qhs 01/28/23 02/06/24 History aspirin 81 mg tablet,delayed 81 mg PO DAILY 01/30/23 02/06/24 History release (Adult Aspirin Regimen) sacubitril 49 mg-valsartan 51 mg 1 tab PO BID 01/30/23 02/06/24 History tablet (Entresto) apixaban 5 mg tablet (Eliquis) 2.5 mg (1/2 x 5 mg) PO BID #60 tabs 02/02/23 02/06/24 Rx insulin aspart U-100 100 unit/mL 2 - 14 unit (0.02 - 0.14 mL) 02/08/23 02/06/24 Rx (3 mL) subcutaneous pen (Novolog subcut ACHS #15 mL FlexPen U-100 Insulin aspart) amitriptyline 50 mg tablet 50 mg PO BEDTIME 04/30/23 02/06/24 History carvedilol 25 mg tablet 25 mg PO BID 04/30/23 02/06/24 History bumetanide 2 mg tablet 2 mg PO .qd 02/06/24 02/06/24 History insulin glargine 100 unit/mL 40 unit subcut BID 02/06/24 02/06/24 History subcutaneous solution isosorbide mononitrate 60 mg 120 mg PO .qd 02/06/24 02/06/24 History tablet,extended release 24 hr spironolactone 25 mg tablet 12.5 mg PO .qd 02/06/24 02/06/24 History Allergies Allergy/AdvReac Type Severity Reaction Status Date / Time No Known Drug Allergies Allergy Verified 02/06/24 12:00 Exam Constitutional Vital Signs, click to edit/add: Last Vital Signs Temp 98.6 F 02/07/24 04:00 Pulse 82 02/07/24 04:00 Resp 18 02/07/24 04:00 BP 160/87 H 02/07/24 04:00 Pulse Ox 91 L 02/07/24 04:24 O2 Del Method Room Air 02/07/24 04:24 Documenting provider has reviewed patient's vital signs: yes Common normals: apparent distress (Mild conversational dyspnea) Respiratory Common normals: no retractions; abnormal respiratory effort (Mild respiratory distress) and not clear to ascultation bilaterally Auscultation: rales Cardio Common normals: regular rate, regular rhythm and no murmurs Extremity Common normals: abnormal to inspection General: edema (3+ bilateral lower extremities no evidence for cellulitis) Neuro Common normals: oriented x3 and CN's II-XII intact bilaterally Results Labs Labs: Short CBC 02/07/24 Range/Units 04:23 WBC 8.5 (4.0-11.0) 10^3/uL Hgb 11.4 L (14.0-18.0) g/dL Hct 35.5 L (42.0-54.0) % Plt Count 183 (150-450) 10^3/uL BMP 02/07/24 04:23 Sodium 147 H Potassium 3.3 L Chloride 109 H Carbon Dioxide 32.4 H BUN 37.0 H Creatinine 1.69 H Glucose 54 L Calcium 8.7 Liver Function 02/07/24 Range/Units 04:23 Total Bilirubin 1.0 (0.2-1.0) mg/dL AST 17 (15-37) U/L ALT 64 H (16-63) U/L Alkaline Phosphatase 78 (46-116) U/L Albumin 2.6 L (3.4-5.0) g/dL Assessment and Plan Assessment and Plan (1) Dyspnea: (2) Frequent falls: (3) CKD stage 3 due to type 2 diabetes mellitus: (4) IDDM (insulin dependent diabetes mellitus): (5) Acute combined systolic (congestive) and diastolic (congestive) heart failure: Plan Uncontrolled hypertension, dyspnea, or frequent falls secondary to weakness, elevated BNP, peripheral edema, dyspnea, secondary to acute combined congestive heart failure-no sign of infection-try IV Bumex and continue his home Aldactone. High-sensitivity troponin negative, EKG with possible inferior lateral ischemia Iron deficiency anemia as well as anemia of chronic kidney disease-monitor daily CKD 3 due to hypertensive heart disease and diabetes mellitus-with mild acute kidney injury-repeat lab in a.m. Moderate protein calorie malnutrition-diet supplement Diabetes mellitus-insulin sliding scale with home medications Insomnia-continue with home medications Hypertension-continue with home medications may need adjustment as his blood pressure is significant elevated on admission Hypothyroidism-continue with home medications levels are normal Admission status: Patient mated with acute combined congestive heart failure likely needs more aggressive diuresis, cardiac workup, medically necessary treatment will span [address] patient inpatient status. Based on his history of improvement likely here 3 to 4 days.
--- NOTE | 2024-02-06 15:29 | SWNOTE1 ---
SW stopped in to speak with pt. Pt was eating. He voiced he fell a few days ago at home. He voiced he is bruised up everywhere. SW asked about his discharge plans and if he will need SNF? Pt voiced he has not thought about it yet. SW advised pt that SW will check back tomorrow.
[2024-02-06] MEDS: BUMETANIDE 1 MG/4 ML VIAL IVP (18:39)
[2024-02-06 20:51] LABS: Glucometer 103 mg/dL (74-106)
[2024-02-06] MEDS: ISOSORBIDE MONONITRATE 30 MG TAB.ER.24H PO (22:06)
[2024-02-06] MEDS: FERROUS SULFATE 325 MG TABLET PO (22:07)
[2024-02-06] MEDS: ATORVASTATIN CALCIUM 20 MG TABLET PO (22:07)
[2024-02-06] MEDS: SACUBITRIL/VALSARTAN 24 MG-26 MG TABLET 2 TAB PO (22:07)
[2024-02-06] MEDS: APIXABAN 5 MG TABLET 2.5 MG PO (22:07)
[2024-02-06] MEDS: AMITRIPTYLINE HCL 50 MG TABLET PO (22:07)
[2024-02-06] MEDS: CARVEDILOL 25 MG TABLET PO (22:07)
[2024-02-07] VITALS (10 sets, daily range): BP systolic 141–176; BP diastolic 66–94; PULSE 82–87; TEMP 36.8–37; O2SAT 91–95
[2024-02-07 04:33] LABS: Basophils Percent Auto 0.2 % (0.2-2.0); Eosinophils Absolute Auto 0.1 10^3/uL (0.0-0.7); Eosinophils Percent Auto 1.1 % (0.9-7.0); Hematocrit 35.5 % (42.0-54.0); Hemoglobin 11.4 g/dL (14.0-18.0); Immature Granulocytes Abs Auto 0.05 10^3/uL (0.00-0.03); Immature Granulocytes Pct Auto 0.6 % (0.0-0.5); Lymphocytes Absolute Auto 1.3 10^3/uL (1.2-3.8); Lymphocytes Percent Auto 14.9 % (20.5-60.0); Mean Corpuscular HGB Conc 32.1 g/dL (29.9-35.2); Mean Corpuscular Hemoglobin 31.9 pg (25.9-34.0); Mean Corpuscular Volume 99.4 fL (80.0-94.0); Mean Platelet Volume 9.6 fL (9.5-13.5); Monocytes Absolute Auto 0.9 10^3/uL (0.3-0.8); Monocytes Percent Auto 10.5 % (1.7-12.0); Neutrophils Absolute Auto 6.2 10^3/uL (1.4-6.5); Neutrophils Percent Auto 72.7 % (43.0-75.0); Platelet Count 183 10^3/uL (150-450); Red Blood Count 3.57 10^6/uL (4.70-6.10); Red Cell Distribution Width 14.7 % (11.0-15.0); White Blood Count 8.5 10^3/uL (4.0-11.0)
[2024-02-07 04:58] LABS: Alanine Aminotransferase 64 U/L (16-63); Albumin Globulin Ratio 0.9; Albumin Level 2.6 g/dL (3.4-5.0); Alkaline Phosphatase 78 U/L (46-116); Anion Gap 8.9; Aspartate Amino Transferase 17 U/L (15-37); BUN Creatinine Ratio 21.9; Calcium 8.7 mg/dL (8.5-10.1); Carbon Dioxide 32.4 mmol/L (21.0-32.0); Chloride 109 mmol/L (98-107); Estimated GFR (African America 47 (>=60); Estimated GFR (Non-African Ame 39 (>=60); Globulin 2.9 g/dL; Glucose 54 mg/dL (74-106); Potassium 3.3 mmol/L (3.5-5.1); Sodium 147 mmol/L (136-145); Total Protein 5.5 g/dL (6.4-8.2); Troponin I High Sensitivity 72.1 pg/mL (4.0-76.1)
[2024-02-07] MEDS: BUMETANIDE 1 MG/4 ML VIAL IVP ×2 (05:33→17:18)
--- NOTE | 2024-02-07 06:00 | PC.NURSE ---
Lab blood glucose 5ave patient 1 OJ, 1 apple juice and ida cracker.
[2024-02-07] MEDS: LEVOTHYROXINE SODIUM 25 MCG TABLET 50 MCG PO ×2 (06:19→21:59)
--- NOTE | 2024-02-07 06:33 | CA_ITS ---
Patient Name: JAJA FRANKLIN MR#: [id number] : 1940 Exam Date: 02/07/2024 Ordering Doctor: DR Yao Lopez . ECHOCARDIOGRAM REPORT PROCEDURE: CA ECHO LIMITED INDICATIONS: elevated bnp, acute combined CHF, CABG, diabetes, hypertension COMPARISON: None. DESCRIPTION: Limited ECHOCARDIOGRAM Real-time transthoracic echocardiography with 2D and M-mode performed. QUALITY: Technical quality was good. LEFT VENTRICLE: Normal chamber size. Mild to moderate concentric hypertrophy. Systolic function is at the lower limits of normal. LV EF: Lower limits of normal left ventricular ejection fraction, (50-55%). DIASTOLIC: ATRIAL SEPTUM: LEFT ATRIUM: Moderate dilatation. RIGHT ATRIUM: Normal chamber size. RIGHT VENTRICLE: Normal chamber size. Normal systolic function. TRICUSPID VALVE: Normal mobility and thickness. MITRAL VALVE: Normal mobility and thickness. There is no mitral annular calcification. AORTIC VALVE: Normal trileaflet appearance. Mildly calcified aortic valve. Mildly diminished mobility. AORTIC ROOT: Normal diameter and appearance. PULMONIC VALVE: Normal thickness and mobility. PERICARDIUM: No evidence of pericardial effusion. IVC: Not well visualized. PLEURA: CONCLUSION: 1. Left ventricular systolic function is at the lower limits of normal. 2. Normal right ventricular size and systolic function. 3. No pericardial effusion. 4. Limited study performed with no Doppler interrogation as requested. Adult Echocardiography Procedure Report Left Ventricle LVEDD (3.7 - 5.6 cm): 3.96 cm LVESD (2.2 - 4.0 cm): 3.42 cm LVIVS thickness (0.6 - 1.2 cm): 1.37 cm LVPW thickness (0.5 - 1.0 cm): 1.40 cm LVOT Diameter 2.26 cm Left Atrium LA Volume Index (2D A2C): 41.24 ml/m2 Left Atrium Systolic Dimension: 4.18 cm Mitral Valve Right Ventricle Aorta AO Root Diam: 3.27 cm Aortic Valve Tricuspid Valve Pulmonic Valve Right Atrium Right Atrium Systolic Pressure: 40.47 ml, 40.47 ml Dictated by: Christopher Hodgson M.D. on 02/09/2024 at 08:23 Approved by: Christopher Hodgson M.D. on 02/09/2024 at 08:32
[2024-02-07 06:44] LABS: Glucometer 98 mg/dL (74-106)
--- NOTE | 2024-02-07 06:59 | P.PN_ITS ---
Progress Note: Subjective Subjective Interval history: Patient states breathing may be slightly better. Still significant weakness will get out of bed. Exam Constitutional Vital Signs, click to edit/add: Last Vital Signs Temp 98.6 F 02/07/24 04:00 Pulse 82 02/07/24 04:00 Resp 18 02/07/24 04:00 BP 160/87 H 02/07/24 04:00 Pulse Ox 91 L 02/07/24 04:24 O2 Del Method Room Air 02/07/24 04:24 Documenting provider has reviewed patient's vital signs: yes Common normals: apparent distress (Mild conversational dyspnea) Respiratory Common normals: no retractions; abnormal respiratory effort (Mild respiratory distress) and not clear to ascultation bilaterally Auscultation: rales (Improved from previous day) Cardio Common normals: regular rate, regular rhythm and no murmurs Extremity Common normals: abnormal to inspection (Calor, rubor, dolor bilateral lower extremities) General: edema (3+ bilateral lower extremities today with evidence for cellulitis) Neuro Common normals: oriented x3 and CN's II-XII intact bilaterally Progress Note: Objective Labs Labs: Short CBC 02/07/24 Range/Units 04:23 WBC 8.5 (4.0-11.0) 10^3/uL Hgb 11.4 L (14.0-18.0) g/dL Hct 35.5 L (42.0-54.0) % Plt Count 183 (150-450) 10^3/uL BMP 02/07/24 04:23 Sodium 147 H Potassium 3.3 L Chloride 109 H Carbon Dioxide 32.4 H BUN 37.0 H Creatinine 1.69 H Glucose 54 L Calcium 8.7 Liver Function 02/07/24 Range/Units 04:23 Total Bilirubin 1.0 (0.2-1.0) mg/dL AST 17 (15-37) U/L ALT 64 H (16-63) U/L Alkaline Phosphatase 78 (46-116) U/L Albumin 2.6 L (3.4-5.0) g/dL Progress Note: A&P Assessment and Plan (1) Dyspnea: (2) Frequent falls: (3) CKD stage 3 due to type 2 diabetes mellitus: (4) IDDM (insulin dependent diabetes mellitus): (5) Acute combined systolic (congestive) and diastolic (congestive) heart failure: Plan Admission findings: Uncontrolled hypertension, dyspnea, or frequent falls secondary to weakness, elevated BNP, peripheral edema, dyspnea, secondary to acute combined congestive heart failure-improved but now significant erythema bilateral lower extremities with positive calor, dolor, rubor. Start patient on antibiotics. No drainage to culture. Consult cardiology, check echocardiogram. BNP is higher today, this may just be a lag after treatment yesterday. Edema is improved we will continue with IV medications as outlined, adding back his Aldactone today. Increasing Entresto may help as well. Acute combined congestive heart failure-as outlined above-check on echocardiogram, EKG with possible inferior lateral ischemia. Increasing his Imdur today. Consult to cardiology Hypernatremia on admission-improved today, continue to follow daily, this is likely secondary to his fluid overload. Dressing that as outlined above Hypokalemia-normal on admission, down today, increase supplementation, restarting Aldactone also. Cellulitis bilateral lower extremities-not obvious on initial evaluation, definitely present today. Start antibiotics as outlined above Iron deficiency anemia as well as anemia of chronic kidney disease-monitor daily CKD 3 due to hypertensive heart disease and diabetes mellitus--improved this morning, back to baseline. Moderate protein calorie malnutrition-diet supplement with Ensure Plus Diabetes mellitus-continue with insulin sliding scale plus lower dose of subcu long-acting insulin, hypoglycemic this morning. Resolved with eating. Insomnia-continue with home medications Hypertension-still significant elevated today. Increasing Entresto may help. He only received 60 mg of Imdur yesterday we will increase him up to his 120 today. Hypothyroidism-continue with home medications levels are normal Admission status: Patient admitted with acute combined congestive heart failure likely needs more aggressive diuresis, cardiac workup, medically necessary treatment will span [address] patient inpatient status. Based on his history of improvement likely here 3 to 4 days. ?
--- NOTE | 2024-02-07 07:23 | XR_ITS ---
The [address] [address] Patient Name: JAJA FRANKLIN MRN: [id number] date: 1940 Sex: M Assigned Patient Location: [place] Current Patient Location: [place] Accession/Order Number: [id number] Exam Date: 02/07/2024 07:50 Report Date: 02/07/2024 08:31 At the request of: DERRICK AYALA Procedure: XR chest 1V EXAMINATION: XR chest 1V HISTORY: Congestive heart failure COMPARISON: XR chest 02/06/2024, 04/30/2023 FINDINGS: LUNGS: Moderate opacity and stranding within left lung base. Right lung is clear. VASCULATURE: No increased pulmonary vasculature. PLEURA: No pneumothorax, effusion, or pleural thickening. CARDIAC: No cardiomegaly or cardiac silhouette abnormality. MEDIASTINUM: Prior sternotomy. No abnormal widening. BONES: No fracture or visible bone lesion. OTHER: Negative. XR/XR chest 1V IMPRESSION: 1. Moderate lingular infiltrates; increased compared to prior study. Electronically authenticated by: AWAIS TELLO Date: 02/07/2024 08:31
--- NOTE | 2024-02-07 09:14 | SWNOTE1 ---
SW has a consult to see pt in regards to rehab and that pt wants BCC. LESLEY did reach out to [facility] and they are full with no beds available.
[2024-02-07] MEDS: ISOSORBIDE MONONITRATE 60 MG TAB.ER.24H 120 MG PO (09:39)
[2024-02-07] MEDS: CEFTRIAXONE 1,000 MG in 0.9 % SODIUM CHLORIDE 50 ML 100 MG IV (09:41)
--- NOTE | 2024-02-07 09:42 | P.CN_ITS ---
<Statement entered by OREN SIMON - 02/10/24 08:01> This documentation has been reviewed and approved. Consult Note: HPI Data of Consult Patient: known to practice within the last 3 years Consult date: 02/07/24 Requesting Physician: Yao Lopez MD Primary Care Provider: Yao Lopez MD Consult Narrative Reason for consult: Acute Systolic heart failure exacerbation Narrative: Pleasant 83 yo male well known to cardiology for Systolic heart failure- initially EF 25% and recovered to normal, CAD, HTN, HPL. Pt reported to ED for increased weakness and was noted to have elevated BNP and fluid overload, currently on Bumex IVP q12 hrs and is diuresing well. Pt reports that insurance nurse recently had him decrease his home bumex dose to qod- of which he noted fluid retention, weight gain- States this was my fault. Currently pt is up ambulating in room with PT and walking with a walker. Admits SOB with exertion, and mild orthopnea and states leg swelling is improved but not completely gone yet. Denied fever, chills, chest pain or palpitations. 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 ?N18.6 - End stage renal disease (ICD-10) ?D63.1 - Anemia in chronic kidney disease (ICD-10) CKD stage 3 due to type 2 diabetes mellitus ?E11.22 - Type 2 diabetes mellitus with diabetic chronic kidney disease (ICD- 10) ?N18.30 - Chronic kidney disease, stage 3 unspecified (ICD-10) Hypotension due to medication ?I95.2 - Hypotension due to drugs (ICD-10) Acute hypotension ?I95.9 - Hypotension, unspecified (ICD-10) Cellulitis ?L03.90 - Cellulitis, unspecified (ICD-10) Diabetes ?E11.9 - Type 2 diabetes mellitus without complications (ICD-10) Afib ?I48.91 - Unspecified atrial fibrillation (ICD-10) CHF (congestive heart failure) ?I50.9 - Heart failure, unspecified (ICD-10) Hypothyroidism ?E03.9 - Hypothyroidism, unspecified (ICD-10) HTN (hypertension) ?I10 - Essential (primary) hypertension (ICD-10) Acute renal failure ?N17.9 - Acute kidney failure, unspecified (ICD-10) Peripheral neuropathy ?G62.9 - Polyneuropathy, unspecified (ICD-10) Family History Other Family history of diabetes mellitus Social History Smoking status: Former smoker Non-prescribed substance use: denies use Highest level of school completed/degree received: 10th grade Are you now , , , , never or living with a partner: In a typical week, how many times do you talk on the telephone with family, friends, or neighbors: 3 or more times per week How often do you get together with friends or relatives: twice per week How often do you attend anabaptism or baptism services: 1-3 times per year Do you belong to any clubs or organizations such as anabaptism groups unions, [employer] or athletic groups, or school groups: no Total score: 1 Score interpretation: A score of less than or equal to 1 indicates the most socially isolated. Little interest or pleasure in doing things: several days Feeling down, depressed, or hopeless: several days Feel stressed/tense/nervous/anxious/difficulty sleeping: not at all Life stressors: recent of family or friend Do you think of yourself as: straight/heterosexual Gender Identity: male Meds Home Medications and Allergies Home Medications ?Medication ?Instructions ?Recorded ?Confirmed ?Type atorvastatin 20 mg tablet 20 mg PO .QHS 01/28/23 02/06/24 History ferrous sulfate 325 mg (65 mg 325 mg PO QPM 01/28/23 02/06/24 History iron) tablet (FeroSul) levothyroxine 50 mcg tablet 50 mcg PO .qhs 01/28/23 02/06/24 History aspirin 81 mg tablet,delayed 81 mg PO DAILY 01/30/23 02/06/24 History release (Adult Aspirin Regimen) sacubitril 49 mg-valsartan 51 mg 1 tab PO BID 01/30/23 02/06/24 History tablet (Entresto) apixaban 5 mg tablet (Eliquis) 2.5 mg (1/2 x 5 mg) PO BID #60 tabs 02/02/23 02/06/24 Rx insulin aspart U-100 100 unit/mL 2 - 14 unit (0.02 - 0.14 mL) 02/08/23 02/06/24 Rx (3 mL) subcutaneous pen (Novolog subcut ACHS #15 mL FlexPen U-100 Insulin aspart) amitriptyline 50 mg tablet 50 mg PO BEDTIME 04/30/23 02/06/24 History carvedilol 25 mg tablet 25 mg PO BID 04/30/23 02/06/24 History bumetanide 2 mg tablet 2 mg PO .qd 02/06/24 02/06/24 History insulin glargine 100 unit/mL 40 unit subcut BID 02/06/24 02/06/24 History subcutaneous solution isosorbide mononitrate 60 mg 120 mg PO .qd 02/06/24 02/06/24 History tablet,extended release 24 hr spironolactone 25 mg tablet 12.5 mg PO .qd 02/06/24 02/06/24 History Allergies Allergy/AdvReac Type Severity Reaction Status Date / Time No Known Drug Allergies Allergy Verified 02/06/24 12:00 Exam Constitutional Vital Signs, click to edit/add: Last Vital Signs Temp 98.2 F 02/07/24 09:38 Pulse 86 02/07/24 09:38 Resp 18 02/07/24 09:38 BP 176/84 H 02/07/24 09:38 Pulse Ox 94 L 02/07/24 09:38 O2 Del Method Room Air 02/07/24 09:38 Common normals: no apparent distress and oriented x3 Nutritional appearance: obese Other: chronically ill Respiratory Common normals: normal respiratory effort, no retractions and no use of accessory muscles Auscultation: diminished lung sounds (diminished b/l posterior bases) Cardio Common normals: regular rate, regular rhythm, S1 normal heart sound, S2 normal heart sound and peripheral pulses 2+ throughout; JVD (+ JVD) Extremity Common normals: clubbing, cyanosis or edema (RLE 1-2 + edema, LLE 2-3 + edema and BLE hemosideran skin changes noted) Neuro Common normals: oriented x3, CN's II-XII intact bilaterally and moves all extremities Psych Common normals: thought process normal, cooperative and affect normal Results Labs Labs: Short CBC 02/07/24 Range/Units 04:23 WBC 8.5 (4.0-11.0) 10^3/uL Hgb 11.4 L (14.0-18.0) g/dL Hct 35.5 L (42.0-54.0) % Plt Count 183 (150-450) 10^3/uL BMP 02/07/24 04:23 Sodium 147 H Potassium 3.3 L Chloride 109 H Carbon Dioxide 32.4 H BUN 37.0 H Creatinine 1.69 H Glucose 54 L Calcium 8.7 Liver Function 02/07/24 Range/Units 04:23 Total Bilirubin 1.0 (0.2-1.0) mg/dL AST 17 (15-37) U/L ALT 64 H (16-63) U/L Alkaline Phosphatase 78 (46-116) U/L Albumin 2.6 L (3.4-5.0) g/dL Today 04:23 Troponin I High Sens 72.1- normal - 4.0-76.1?pg/mL 02/02/23 04:25 C-Reactive Protein- 23.1?H, <=1.0?mg/dL Today 04:23 NT-Pro-B Natriuret Pep- 71301.0?H* <=1800.0?pg/mL ECG Attestation: ?I have reviewed the pertinent ECG results. ECG interpretation date: 02/06/24 Interpretation: Interpretive Statements 1100 Sinus rhythm Chronic inferolateral ST/T wave changes, can't exclude myocardial ischemia 9150 abnormal ECG Unchanged from previous tracing of 04/30/23 Electronically Signed On 02-07-2024 6:47:57 EDT by PEBBLES LÓPEZ Imaging Chest x-ray: Attestation: I have reviewed the pertinent imaging results. Radiologist's impression: FINDINGS: LUNGS: Moderate opacity and stranding within left lung base. Right lung is clear. VASCULATURE: No increased pulmonary vasculature. PLEURA: No pneumothorax, effusion, or pleural thickening. CARDIAC: No cardiomegaly or cardiac silhouette abnormality. MEDIASTINUM: Prior sternotomy. No abnormal widening. BONES: No fracture or visible bone lesion. OTHER: Negative. XR/XR chest 1V IMPRESSION: 1. Moderate lingular infiltrates; increased compared to prior study. Assessment and Plan Assessment and Plan (1) Acute combined systolic (congestive) and diastolic (congestive) heart failure: Assessment and Plan: [facility] II-III currently remains volume overloaded with noted edema BLE and ESCOBEDO -Continue Bumex 1 mg IV bid for at least 1 more day, if euvolemic tomorrow may be able to transition back to home dose of bumex. -Continue GDMT- ASA, lipitor, entresto, aldactone -May benefit from a SGLT2i- farxiga or jardiance if affordable, if renal function continues to improves and this would be renal protective, normal sodium level and no recurrent infections- will defer to Primary service in light of DM management. -Awaiting Limited Echo to assess Cardiac function- EF; at last TTE his EF was preserved- and recovered -Monitor renal function daily, electrolytes- maintain K+> 4 and MAg > 2, - Daily weights, Strict I&O, fluid restriction 1.5-2L/day F/U with Cardiology within 1 week of discharge Primary service discharge planning with possible DC to SNF (2) Dyspnea: Assessment and Plan: Improved with diuresis Qualifiers: Dyspnea type: dyspnea on exertion Qualified Code(s): R06.09 - Other forms of dyspnea (3) Frequent falls: (4) Acute kidney injury superimposed on CKD: Assessment and Plan: renal function improved with aggressive diuresis Continue to monitor renal function and electrolytes
[2024-02-07] MEDS: POTASSIUM CHLORIDE 10 MEQ ER TABLET 20 MEQ PO ×2 (09:43→20:45)
[2024-02-07] MEDS: SACUBITRIL/VALSARTAN 24 MG-26 MG TABLET 4 TAB PO ×2 (09:44→20:45)
[2024-02-07] MEDS: APIXABAN 5 MG TABLET 2.5 MG PO ×2 (09:44→20:44)
[2024-02-07] MEDS: DOXYCYCLINE MONOHYDRATE 100 MG CAPSULE PO ×2 (09:45→20:45)
[2024-02-07] MEDS: SPIRONOLACTONE 25 MG TABLET 12.5 MG PO (09:45)
[2024-02-07] MEDS: CARVEDILOL 25 MG TABLET PO ×2 (09:45→20:45)
[2024-02-07] MEDS: ASPIRIN 81 MG TABLET.DR PO (09:45)
[2024-02-07] MEDS: INSULIN DETEMIR 300 UNIT/3 ML INSULN.PEN 20 UNIT SQ (09:47)
--- NOTE | 2024-02-07 10:43 | SWNOTE1 ---
LESLEY checked back with pt about discharge plans. Pt's son and daughter in room at the time. Pt does want to go to rehab. He did want [facility], but LESLEY advised everyone that they do not have any rooms available. Pt expressed he does NOT want [facility]. LESLEY reviewed list from medicare.gov and let family and pt know which facilities take his insurance. They would like SW to check [facility] and [facility]. LESLEY called [facility] and they will need insurance information to run benefits. LESLEY emailed face sheet to [facility]. LESLEY spoke to Nabila at [facility] and they also need face sheet to run benefits as sometimes they are in network and sometimes a pt's out of network benefits are the same. LESLEY faxed and emailed Nabila the face sheet.
[2024-02-07 11:18] LABS: Glucometer 211 mg/dL (74-106)
--- NOTE | 2024-02-07 11:21 | SWNOTE1 ---
Important Message from Medicare reviewed and discussed with patient and pt's daughter. Pt. verbalized understanding and pt asked daughter to sign the form. Original given to patient and copy placed in patient?s chart.
--- NOTE | 2024-02-07 11:56 | SWNOTE1 ---
LESLEY heard back from Scoorro at [facility]. She stated they are out of network, but from her understanding pt would like to possibly come to [place] after [place]hab. SW let her know that family is hoping that. She stated they can attempt to do precert by requesting an exemption to get in network benefits due to pt wanting to live there. She stated she is not sure the turn around time, but thinks it would be similar to normal precert. SW to speak with family.
--- NOTE | 2024-02-07 12:42 | SWNOTE1 ---
LESLEY spoke to pt and a different son in room. LESLEY explained the situation with [facility]. They voiced understanding and would like LESLEY to pursue [facility] for rehab. LESLEY sent over clinical information to Socorro at [facility].
[2024-02-07] MEDS: INSULIN ASPART 300 UNIT/3 ML PEN SUBQ ×3 (13:28→21:59)
--- NOTE | 2024-02-07 14:59 | SWNOTE1 ---
[facility] needs PT note to send for precert. SW to send once completed.
--- NOTE | 2024-02-07 15:24 | SWNOTE1 ---
LESLEY sent PT note to Socorro at [facility] for precert.
[2024-02-07 16:28] LABS: Glucometer 244 mg/dL (74-106)
[2024-02-07] MEDS: FERROUS SULFATE 325 MG TABLET PO (20:44)
[2024-02-07 21:13] LABS: Glucometer 301 mg/dL (74-106)
[2024-02-07] MEDS: AMITRIPTYLINE HCL 50 MG TABLET PO (21:59)
[2024-02-07] MEDS: ATORVASTATIN CALCIUM 20 MG TABLET PO (21:59)
[2024-02-07 22:56] LABS: Glucometer 155 mg/dL (74-106)
[2024-02-08] VITALS (9 sets, daily range): BP systolic 147–165; BP diastolic 72–91; PULSE 80–83; TEMP 36.6–36.8; O2SAT 91–94
[2024-02-08 00:35] LABS: Glucometer 141 mg/dL (74-106)
[2024-02-08 02:28] LABS: Glucometer 228 mg/dL (74-106)
[2024-02-08 04:21] LABS: Basophils Percent Auto 0.1 % (0.2-2.0); Eosinophils Absolute Auto 0.1 10^3/uL (0.0-0.7); Eosinophils Percent Auto 0.9 % (0.9-7.0); Hematocrit 35.1 % (42.0-54.0); Hemoglobin 11.3 g/dL (14.0-18.0); Immature Granulocytes Abs Auto 0.05 10^3/uL (0.00-0.03); Immature Granulocytes Pct Auto 0.6 % (0.0-0.5); Lymphocytes Percent Auto 12.4 % (20.5-60.0); Mean Corpuscular HGB Conc 32.2 g/dL (29.9-35.2); Mean Corpuscular Hemoglobin 32.2 pg (25.9-34.0); Monocytes Absolute Auto 0.9 10^3/uL (0.3-0.8); Monocytes Percent Auto 11.2 % (1.7-12.0); Neutrophils Absolute Auto 5.9 10^3/uL (1.4-6.5); Neutrophils Percent Auto 74.8 % (43.0-75.0); Platelet Count 194 10^3/uL (150-450); Red Blood Count 3.51 10^6/uL (4.70-6.10); Red Cell Distribution Width 15.3 % (11.0-15.0); White Blood Count 7.9 10^3/uL (4.0-11.0)
[2024-02-08 04:48] LABS: Alanine Aminotransferase 62 U/L (16-63); Albumin Globulin Ratio 0.9; Albumin Level 2.6 g/dL (3.4-5.0); Alkaline Phosphatase 95 U/L (46-116); Anion Gap 6.7; Aspartate Amino Transferase 19 U/L (15-37); BUN Creatinine Ratio 20.4; Bilirubin Total 0.7 mg/dL (0.2-1.0); Calcium 8.4 mg/dL (8.5-10.1); Carbon Dioxide 31.9 mmol/L (21.0-32.0); Chloride 105 mmol/L (98-107); Estimated GFR (African America 38 (>=60); Estimated GFR (Non-African Ame 31 (>=60); Globulin 2.9 g/dL; Glucose 198 mg/dL (74-106); Potassium 3.6 mmol/L (3.5-5.1); Sodium 140 mmol/L (136-145); Total Protein 5.5 g/dL (6.4-8.2); Troponin I High Sensitivity 54.2 pg/mL (4.0-76.1)
[2024-02-08] MEDS: BUMETANIDE 1 MG/4 ML VIAL IVP (05:56)
[2024-02-08] MEDS: DOXYCYCLINE MONOHYDRATE 100 MG CAPSULE PO ×2 (08:14→20:14)
[2024-02-08] MEDS: ISOSORBIDE MONONITRATE 60 MG TAB.ER.24H 120 MG PO (08:14)
[2024-02-08] MEDS: APIXABAN 5 MG TABLET 2.5 MG PO ×2 (08:14→20:14)
[2024-02-08] MEDS: ASPIRIN 81 MG TABLET.DR PO (08:14)
[2024-02-08] MEDS: POTASSIUM CHLORIDE 10 MEQ ER TABLET 20 MEQ PO ×2 (08:14→20:14)
[2024-02-08] MEDS: SACUBITRIL/VALSARTAN 24 MG-26 MG TABLET 4 TAB PO ×2 (08:14→20:13)
[2024-02-08] MEDS: CARVEDILOL 25 MG TABLET PO ×2 (08:14→20:15)
[2024-02-08] MEDS: CEFTRIAXONE 1,000 MG in 0.9 % SODIUM CHLORIDE 50 ML 100 MG IV (08:15)
[2024-02-08] MEDS: SPIRONOLACTONE 25 MG TABLET 12.5 MG PO (08:15)
[2024-02-08] MEDS: INSULIN DETEMIR 300 UNIT/3 ML INSULN.PEN 20 UNIT SQ (08:19)
[2024-02-08] MEDS: INSULIN ASPART 300 UNIT/3 ML PEN SUBQ ×4 (08:20→21:38)
--- NOTE | 2024-02-08 08:55 | P.PN_ITS ---
Progress Note: Subjective Subjective Interval history: She was difficulty walking secondary to weakness and shortness of breath. Exam Constitutional Vital Signs, click to edit/add: Last Vital Signs Temp 98.3 F 02/08/24 07:57 Pulse 81 02/08/24 07:57 Resp 18 02/08/24 07:57 BP 162/81 H 02/08/24 07:57 Pulse Ox 94 L 02/08/24 07:57 O2 Del Method Room Air 02/08/24 07:57 Common normals: no apparent distress and oriented x3 Nutritional appearance: obese Other: chronically ill Respiratory Common normals: normal respiratory effort, no retractions and no use of accessory muscles Auscultation: diminished lung sounds (diminished b/l posterior bases) Cardio Common normals: regular rate, regular rhythm, S1 normal heart sound, S2 normal heart sound and peripheral pulses 2+ throughout; JVD (+ JVD) Extremity Common normals: clubbing, cyanosis or edema (Edema continues to improve, erythema from yesterday is improved as well) Neuro Common normals: oriented x3, CN's II-XII intact bilaterally and moves all extremities Psych Common normals: thought process normal, cooperative and affect normal Progress Note: Objective Labs Labs: Short CBC 02/08/24 Range/Units 03:43 WBC 7.9 (4.0-11.0) 10^3/uL Hgb 11.3 L (14.0-18.0) g/dL Hct 35.1 L (42.0-54.0) % Plt Count 194 (150-450) 10^3/uL BMP 02/08/24 03:43 Sodium 140 Potassium 3.6 Chloride 105 Carbon Dioxide 31.9 BUN 42.0 H Creatinine 2.06 H Glucose 198 H Calcium 8.4 L Liver Function 02/08/24 Range/Units 03:43 Total Bilirubin 0.7 (0.2-1.0) mg/dL AST 19 (15-37) U/L ALT 62 (16-63) U/L Alkaline Phosphatase 95 (46-116) U/L Albumin 2.6 L (3.4-5.0) g/dL Progress Note: A&P Assessment and Plan (1) Acute combined systolic (congestive) and diastolic (congestive) heart failure: (2) Dyspnea: Qualifiers: Dyspnea type: dyspnea on exertion Qualified Code(s): R06.09 - Other forms of dyspnea (3) Frequent falls: (4) Acute kidney injury superimposed on CKD: (5) CKD stage 3 due to type 2 diabetes mellitus: (6) IDDM (insulin dependent diabetes mellitus): Plan Admission findings: Uncontrolled hypertension, dyspnea, or frequent falls secondary to weakness, elevated BNP, peripheral edema, dyspnea, secondary to acute combined congestive heart failure-improved but now significant erythema bilateral lower extremities with positive calor, dolor, rubor. Erythema improving to starting antibiotics yesterday. Edema also improved Acute combined congestive heart failure-as outlined above-check on echocardiogram, EKG with possible inferior lateral ischemia. Reviewed notes by cardiology, awaiting echo Hypernatremia on admission--this is currently resolved Hypokalemia--resolved Cellulitis bilateral lower extremities-not obvious on initial evaluation, definitely present today. Start antibiotics as outlined above-improving Iron deficiency anemia as well as anemia of chronic kidney disease-monitor daily CKD 3 due to hypertensive heart disease and diabetes mellitus--elevated creatinine today, will change patient back to his oral diuretic, already received his IV doses morning Moderate protein calorie malnutrition-diet supplement with Ensure Plus Diabetes mellitus-continue with insulin sliding scale plus lower dose of subcu long-acting insulin, sugars overall are improving Insomnia-continue with home medications Hypertension-still significant elevated today. Still slightly up today. Continue to monitor Hypothyroidism-continue with home medications levels are normal Admission status: Patient admitted with acute combined congestive heart failure likely needs more aggressive diuresis, cardiac workup, medically necessary treatment will span [address] patient inpatient status. Based on his history of improvement likely here 3 to 4 days. ? Urinary Catheter Management Urinary Catheter Management Marisol Rubio: Cath placed during this visit: no
[2024-02-08 13:29] LABS: Glucometer 217 mg/dL (74-106)
[2024-02-08 17:18] LABS: Glucometer 229 mg/dL (74-106)
[2024-02-08] MEDS: FERROUS SULFATE 325 MG TABLET PO (20:13)
[2024-02-08 21:14] LABS: Glucometer 398 mg/dL (74-106)
[2024-02-08] MEDS: ATORVASTATIN CALCIUM 20 MG TABLET PO (21:37)
[2024-02-08] MEDS: AMITRIPTYLINE HCL 50 MG TABLET PO (21:38)
[2024-02-09] VITALS (7 sets, daily range): BP systolic 163–188; BP diastolic 78–88; PULSE 80–81; TEMP 36.6–36.8; O2SAT 90–95
[2024-02-09] MEDS: LEVOTHYROXINE SODIUM 25 MCG TABLET 50 MCG PO (00:10)
[2024-02-09 05:02] LABS: Basophils Percent Auto 0.1 % (0.2-2.0); Eosinophils Absolute Auto 0.1 10^3/uL (0.0-0.7); Eosinophils Percent Auto 0.7 % (0.9-7.0); Hematocrit 33.3 % (42.0-54.0); Hemoglobin 10.9 g/dL (14.0-18.0); Immature Granulocytes Abs Auto 0.05 10^3/uL (0.00-0.03); Immature Granulocytes Pct Auto 0.7 % (0.0-0.5); Lymphocytes Absolute Auto 0.8 10^3/uL (1.2-3.8); Lymphocytes Percent Auto 10.7 % (20.5-60.0); Mean Corpuscular HGB Conc 32.7 g/dL (29.9-35.2); Mean Corpuscular Hemoglobin 32.9 pg (25.9-34.0); Mean Corpuscular Volume 100.6 fL (80.0-94.0); Mean Platelet Volume 9.8 fL (9.5-13.5); Monocytes Absolute Auto 0.7 10^3/uL (0.3-0.8); Monocytes Percent Auto 9.8 % (1.7-12.0); Neutrophils Absolute Auto 5.8 10^3/uL (1.4-6.5); Platelet Count 173 10^3/uL (150-450); Red Blood Count 3.31 10^6/uL (4.70-6.10); White Blood Count 7.5 10^3/uL (4.0-11.0)
[2024-02-09 05:30] LABS: Alanine Aminotransferase 54 U/L (16-63); Albumin Globulin Ratio 0.8; Albumin Level 2.4 g/dL (3.4-5.0); Alkaline Phosphatase 96 U/L (46-116); Anion Gap 8.5; Aspartate Amino Transferase 13 U/L (15-37); BUN Creatinine Ratio 21.1; Bilirubin Total 0.6 mg/dL (0.2-1.0); Calcium 8.5 mg/dL (8.5-10.1); Carbon Dioxide 29.8 mmol/L (21.0-32.0); Chloride 107 mmol/L (98-107); Estimated GFR (African America 39 (>=60); Estimated GFR (Non-African Ame 32 (>=60); Glucose 238 mg/dL (74-106); Potassium 4.3 mmol/L (3.5-5.1); Sodium 141 mmol/L (136-145); Total Protein 5.4 g/dL (6.4-8.2)
[2024-02-09 07:25] LABS: Glucometer 226 mg/dL (74-106)
--- NOTE | 2024-02-09 07:45 | P.DS_ITS ---
DS: Providers Provider Date of admission: 02/06/24 14:08 Primary care physician: Yao Lopez MD Consults: 02/06/24 13:22 Consult to Pharmacy Routine Consulting Provider: Reason for consultation: Please [place] me when Med Rec is Updated Has provider been notified: No Occupational Therapy Eval and Treat Routine Reason for consultation: Only if needed for Rehab Has provider been notified: No Physical Therapy Eval and Treat Routine Reason for consultation: Eval and Treat Has provider been notified: No 02/07/24 06:37 Consult to Co Founder And President Routine Reason for consult:: Residential Other reason:: rehab placement [facility] 02/07/24 07:26 Consult to Cardiology Routine Reason for consultation: acute combined chf Has provider been notified: No DS: Diagnosis Discharge Diagnosis (1) Acute combined systolic (congestive) and diastolic (congestive) heart failure: (2) Dyspnea: Qualifiers: Dyspnea type: dyspnea on exertion Qualified Code(s): R06.09 - Other forms of dyspnea (3) Frequent falls: (4) Acute kidney injury superimposed on CKD: (5) CKD stage 3 due to type 2 diabetes mellitus: (6) IDDM (insulin dependent diabetes mellitus): Plan Admission findings: Uncontrolled hypertension, dyspnea, or frequent falls secondary to weakness, elevated BNP, peripheral edema, dyspnea, secondary to acute combined congestive heart failure-improved but now significant erythema bilateral lower extremities with positive calor, dolor, rubor. Erythema improving to starting antibiotics yesterday. Edema also improved Acute combined congestive heart failure-as outlined above-check on echocardiogram, EKG with possible inferior lateral ischemia. Reviewed notes by cardiology, awaiting echo Hypernatremia on admission--this is currently resolved Hypokalemia--resolved Cellulitis bilateral lower extremities-not obvious on initial evaluation, definitely present today. Start antibiotics as outlined above-improving Iron deficiency anemia as well as anemia of chronic kidney disease-monitor daily CKD 3 due to hypertensive heart disease and diabetes mellitus--elevated creatinine today, will change patient back to his oral diuretic, already received his IV doses morning Moderate protein calorie malnutrition-diet supplement with Ensure Plus Diabetes mellitus-continue with insulin sliding scale plus lower dose of subcu long-acting insulin, sugars overall are improving Insomnia-continue with home medications Hypertension-still significant elevated today. Still slightly up today. Continue to monitor Hypothyroidism-continue with home medications levels are normal Admission status: Patient admitted with acute combined congestive heart failure likely needs more aggressive diuresis, cardiac workup, medically necessary treatment will span [address] patient inpatient status. Based on his history of improvement likely here 3 to 4 days. DS: Summary Status at Discharge Overall status at discharge: patient is not back to baseline Time Spent with Patient Time attestation: Total time spent providing and/or coordinating discharge services: Time spent: greater than 30 minutes Exam Constitutional Vital Signs, click to edit/add: Last Vital Signs Temp 98.2 F 02/09/24 03:31 Pulse 80 02/09/24 03:31 Resp 18 02/09/24 03:31 BP 165/79 H 02/09/24 03:31 Pulse Ox 93 L 02/09/24 03:32 O2 Del Method Room Air 02/09/24 03:32 DS: Data Data Completed and Pending Labs on day of discharge: Labs from last 24 hours 02/09/24 02/09/24 02/08/24 07:24 04:42 21:09 WBC 7.5 RBC 3.31 L Hgb 10.9 L Hct 33.3 L MCV 100.6 H MCH 32.9 MCHC 32.7 RDW 15.0 Plt Count 173 MPV 9.8 Neut % (Auto) 78.0 H Lymph % (Auto) 10.7 L [place] % (Auto) 9.8 Eos % (Auto) 0.7 L Baso % (Auto) 0.1 L Neut # (Auto) 5.8 Lymph # (Auto) 0.8 L [place] # (Auto) 0.7 Eos # (Auto) 0.1 Baso # (Auto) 0.0 Abs Immat Gran (auto) 0.05 H Imm/Tot Granulo (auto) 0.7 H Sodium 141 Potassium 4.3 Chloride 107 Carbon Dioxide 29.8 Anion Gap 8.5 BUN 42.0 H Creatinine 1.99 H Est GFR ( Amer) 39 L Est GFR (Non-Af Amer) 32 L BUN/Creatinine Ratio 21.1 Glucose 238 H Calcium 8.5 Total Bilirubin 0.6 AST 13 L ALT 54 Alkaline Phosphatase 96 Troponin I High Sens 40.0 NT-Pro-B Natriuret Pep 4995.0 H* Total Protein 5.4 L Albumin 2.4 L Globulin 3.0 Albumin/Globulin Ratio 0.8 POC Glucose 226 H 398 H 02/08/24 02/08/24 17:16 13:24 WBC RBC Hgb Hct MCV MCH MCHC RDW Plt Count MPV Neut % (Auto) Lymph % (Auto) [place] % (Auto) Eos % (Auto) Baso % (Auto) Neut # (Auto) Lymph # (Auto) [place] # (Auto) Eos # (Auto) Baso # (Auto) Abs Immat Gran (auto) Imm/Tot Granulo (auto) Sodium Potassium Chloride Carbon Dioxide Anion Gap BUN Creatinine Est GFR ( Amer) Est GFR (Non-Af Amer) BUN/Creatinine Ratio Glucose Calcium Total Bilirubin AST ALT Alkaline Phosphatase Troponin I High Sens NT-Pro-B Natriuret Pep Total Protein Albumin Globulin Albumin/Globulin Ratio POC Glucose 229 H 217 H Discharge Plan Discharge Discharge Medications: No Action atorvastatin 20 mg tablet 20 mg PO .QHS ferrous sulfate [FeroSul] 325 mg (65 mg iron) tablet 325 mg PO QPM levothyroxine 50 mcg tablet 50 mcg PO .qhs Entresto 49-51 mg tablet 1 tab PO BID Patient Comments: recieves samples from Dr. Lopez's office aspirin [Adult Aspirin Regimen] 81 mg tablet,delayed release (DR/EC) 81 mg PO DAILY Hold Instructions: Doctor's Order Eliquis 5 mg Tablet 2.5 mg PO BID Qty: 60 0RF Patient Comments: recieves samples from Dr. Lopez's office insulin aspart U-100 [Novolog FlexPen U-100 Insulin] 100 unit/mL (3 mL) Insulin Pen 2 - 14 unit subcut ACHS Qty: 15 0RF amitriptyline 50 mg tablet 50 mg PO BEDTIME carvedilol 25 mg tablet 25 mg PO BID bumetanide 2 mg tablet 2 mg PO .qd isosorbide mononitrate 60 mg tablet extended release 24 hr 120 mg PO .qd spironolactone 25 mg tablet 12.5 mg PO .qd insulin glargine 100 unit/mL solution 40 unit subcut BID Print Language: Hungarian Follow Up Appointments: February 20 @ 2:40pm with [place] [facility] [phone] February 12 appt. has been cancelled
--- NOTE | 2024-02-09 07:48 | P.PN_ITS ---
Progress Note: Subjective Subjective Interval history: Still with difficulty walking secondary to his shortness of breath. Proved today compared to the previous day. Exam Constitutional Vital Signs, click to edit/add: Last Vital Signs Temp 98.2 F 02/09/24 03:31 Pulse 80 02/09/24 03:31 Resp 18 02/09/24 03:31 BP 165/79 H 02/09/24 03:31 Pulse Ox 93 L 02/09/24 03:32 O2 Del Method Room Air 02/09/24 03:32 Common normals: no apparent distress and oriented x3 Nutritional appearance: obese Other: chronically ill Respiratory Common normals: normal respiratory effort, no retractions and no use of accessory muscles Auscultation: diminished lung sounds (diminished b/l posterior bases) Cardio Common normals: regular rate, regular rhythm, S1 normal heart sound, S2 normal heart sound and peripheral pulses 2+ throughout; JVD (+ JVD) Extremity Common normals: abnormal to inspection and clubbing, cyanosis or edema (Edema continues to improve, erythema stable) Neuro Common normals: oriented x3, CN's II-XII intact bilaterally and moves all ex tremities Psych Common normals: thought process normal, cooperative and affect normal Progress Note: Objective Labs Labs: Short CBC 02/09/24 Range/Units 04:42 WBC 7.5 (4.0-11.0) 10^3/uL Hgb 10.9 L (14.0-18.0) g/dL Hct 33.3 L (42.0-54.0) % Plt Count 173 (150-450) 10^3/uL BMP 02/09/24 04:42 Sodium 141 Potassium 4.3 Chloride 107 Carbon Dioxide 29.8 BUN 42.0 H Creatinine 1.99 H Glucose 238 H Calcium 8.5 Liver Function 02/09/24 Range/Units 04:42 Total Bilirubin 0.6 (0.2-1.0) mg/dL AST 13 L (15-37) U/L ALT 54 (16-63) U/L Alkaline Phosphatase 96 (46-116) U/L Albumin 2.4 L (3.4-5.0) g/dL Progress Note: A&P Assessment and Plan (1) Acute combined systolic (congestive) and diastolic (congestive) heart failure: (2) Dyspnea: Qualifiers: Dyspnea type: dyspnea on exertion Qualified Code(s): R06.09 - Other forms of dyspnea (3) Frequent falls: (4) Acute kidney injury superimposed on CKD: (5) CKD stage 3 due to type 2 diabetes mellitus: (6) IDDM (insulin dependent diabetes mellitus): Plan Admission findings: Uncontrolled hypertension, dyspnea, or frequent falls secondary to weakness, elevated BNP, peripheral edema, dyspnea, secondary to acute combined congestive heart failure-improved but now significant erythema bilateral lower extremities with positive calor, dolor, rubor. Edema continues to improve, erythema stable from previous day. Acute combined congestive heart failure-as outlined above-echo still pending. Continue with current medications-BNP improving today. Hypernatremia on admission--this is currently resolved Hypokalemia--resolved Cellulitis bilateral lower extremities-not obvious on initial evaluation but present on admission, definitely present today. Stable starting antibiotics Iron deficiency anemia as well as anemia of chronic kidney disease-monitor daily CKD 3 due to hypertensive heart disease and diabetes mellitus--creatinine improved this morning. Moderate protein calorie malnutrition-diet supplement with Ensure Plus Diabetes mellitus-adjusted insulin sliding scale yesterday, will increase long- acting today sugars are elevated Insomnia-continue with home medications Hypertension-still significant elevated today. Adjust medications today. Will add hydralazine 25 mg 3 times daily Hypothyroidism-continue with home medications levels are normal Admission status: Patient admitted with acute combined congestive heart failure likely needs more aggressive diuresis, cardiac workup, medically necessary t reatment will span [address] patient inpatient status. Based on his history of improvement likely here 3 to 4 days. Urinary Catheter Management Urinary Catheter Management Marisol Rubio: Cath placed during this visit: no
--- NOTE | 2024-02-09 08:12 | P.DS_ITS ---
DS: Providers Provider Date of admission: 02/06/24 14:08 Primary care physician: Yao Lopez MD Consults: 02/06/24 13:22 Consult to Pharmacy Routine Consulting Provider: Reason for consultation: Please [place] me when Med Rec is Updated Has provider been notified: No Occupational Therapy Eval and Treat Routine Reason for consultation: Only if needed for Rehab Has provider been notified: No Physical Therapy Eval and Treat Routine Reason for consultation: Eval and Treat Has provider been notified: No 02/07/24 06:37 Consult to Piping Manager Routine Reason for consult:: Jail Other reason:: rehab placement [facility] 02/07/24 07:26 Consult to Cardiology Routine Reason for consultation: acute combined chf Has provider been notified: No DS: Diagnosis Discharge Diagnosis (1) Acute combined systolic (congestive) and diastolic (congestive) heart failure: (2) Dyspnea: Qualifiers: Dyspnea type: dyspnea on exertion Qualified Code(s): R06.09 - Other forms of dyspnea (3) Frequent falls: (4) Acute kidney injury superimposed on CKD: (5) CKD stage 3 due to type 2 diabetes mellitus: (6) IDDM (insulin dependent diabetes mellitus): Plan Admission findings: Uncontrolled hypertension, dyspnea, or frequent falls secondary to weakness, elevated BNP, peripheral edema, dyspnea, secondary to acute combined congestive heart failure-improving at the time of discharge Acute combined congestive heart failure-as outlined above-echo still pending. Improving at the time of discharge Hypernatremia on admission-resolved at the time of Hypokalemia--resolved at the time of discharge Cellulitis bilateral lower extremities-improving at the time of discharge Iron deficiency anemia as well as anemia of chronic kidney disease- Diabetes CKD 3 due to hypertensive heart disease and diabetes mellitus--improving at the time of discharge Moderate protein calorie malnutrition-diet supplement with Ensure Plus Diabetes mellitus-adjusted insulin sliding scale yesterday, elevated at the time of discharge Insomnia-continue with home medications Hypertension-still significant elevated today. Elevated at the time of discharge Hypothyroidism-continue with home medications levels are normal Admission status: Patient admitted with acute combined congestive heart failure likely needs more aggressive diuresis, cardiac workup, medically necessary treatment will span [address] patient inpatient status. Based on his history of improvement likely here 3 to 4 days. DS: Summary Hospital Course Hospital Course: Patient had presented to the office, increasing shortness of breath and weakness. He had a fall 2 times in the last 4 days prior to admission. In ER patient found to have acute combined congestive heart failure with bilateral lower extremity edema, rales on exam, cellulitis bilateral lower extremities. Patient was placed on antibiotics, IV Bumex, adjusted his Entresto back up to the maximum dose, Imdur to the maximum dose, only other issue throughout the hospitalization was his blood pressure is somewhat elevated, we started hydralazine today, his BNP is improving, his creatinine is improving, his cellulitis is improving, he is an excellent rehabilitation candidate, highly motivated for getting back to home or assisted living, patient currently stable for discharge to rehab. Medications see list. I will follow patient once he is discharged from rehab. Status at Discharge Overall status at discharge: patient is not back to baseline Time Spent with Patient Time attestation: Total time spent providing and/or coordinating discharge services: Time spent: greater than 30 minutes Exam Constitutional Vital Signs, click to edit/add: Last Vital Signs Temp 97.9 F 02/09/24 07:53 Pulse 80 02/09/24 07:53 Resp 18 02/09/24 07:53 BP 182/88 H 02/09/24 07:53 Pulse Ox 94 L 02/09/24 07:53 O2 Del Method Room Air 02/09/24 07:53 Common normals: no apparent distress and oriented x3 Nutritional appearance: obese Other: chronically ill Respiratory Common normals: normal respiratory effort, no retractions and no use of accessory muscles Auscultation: diminished lung sounds (diminished b/l posterior bases) Cardio Common normals: regular rate, regular rhythm, S1 normal heart sound, S2 normal heart sound and peripheral pulses 2+ throughout; JVD (+ JVD) Extremity Common normals: abnormal to inspection and clubbing, cyanosis or edema (Edema continues to improve, erythema stable) Neuro Common normals: oriented x3, CN's II-XII intact bilaterally and moves all extremities Psych Common normals: thought process normal, cooperative and affect normal DS: Data Data Completed and Pending Labs on day of discharge: Labs from last 24 hours 02/09/24 02/09/24 02/08/24 07:24 04:42 21:09 WBC 7.5 RBC 3.31 L Hgb 10.9 L Hct 33.3 L MCV 100.6 H MCH 32.9 MCHC 32.7 RDW 15.0 Plt Count 173 MPV 9.8 Neut % (Auto) 78.0 H Lymph % (Auto) 10.7 L [place] % (Auto) 9.8 Eos % (Auto) 0.7 L Baso % (Auto) 0.1 L Neut # (Auto) 5.8 Lymph # (Auto) 0.8 L [place] # (Auto) 0.7 Eos # (Auto) 0.1 Baso # (Auto) 0.0 Abs Immat Gran (auto) 0.05 H Imm/Tot Granulo (auto) 0.7 H Sodium 141 Potassium 4.3 Chloride 107 Carbon Dioxide 29.8 Anion Gap 8.5 BUN 42.0 H Creatinine 1.99 H Est GFR ( Amer) 39 L Est GFR (Non-Af Amer) 32 L BUN/Creatinine Ratio 21.1 Glucose 238 H Calcium 8.5 Total Bilirubin 0.6 AST 13 L ALT 54 Alkaline Phosphatase 96 Troponin I High Sens 40.0 NT-Pro-B Natriuret Pep 4995.0 H* Total Protein 5.4 L Albumin 2.4 L Globulin 3.0 Albumin/Globulin Ratio 0.8 POC Glucose 226 H 398 H 02/08/24 02/08/24 17:16 13:24 WBC RBC Hgb Hct MCV MCH MCHC RDW Plt Count MPV Neut % (Auto) Lymph % (Auto) [place] % (Auto) Eos % (Auto) Baso % (Auto) Neut # (Auto) Lymph # (Auto) [place] # (Auto) Eos # (Auto) Baso # (Auto) Abs Immat Gran (auto) Imm/Tot Granulo (auto) Sodium Potassium Chloride Carbon Dioxide Anion Gap BUN Creatinine Est GFR ( Amer) Est GFR (Non-Af Amer) BUN/Creatinine Ratio Glucose Calcium Total Bilirubin AST ALT Alkaline Phosphatase Troponin I High Sens NT-Pro-B Natriuret Pep Total Protein Albumin Globulin Albumin/Globulin Ratio POC Glucose 229 H 217 H Discharge Plan Discharge Disposition: Xfer SNF Condition: Fair Discharge Medications: New doxycycline monohydrate 100 mg Capsule 100 mg PO BID Qty: 20 0RF cefdinir 300 mg capsule 600 mg PO DAILY Qty: 20 0RF hydralazine 25 mg Tablet 25 mg PO TID Qty: 90 11RF Levemir FlexPen 100 unit/mL (3 mL) Insulin Pen 30 unit subcut QAM Qty: 15 11RF Entresto 97-103 mg tablet 1 tab PO BID Qty: 60 11RF Continued atorvastatin 20 mg tablet 20 mg PO .QHS ferrous sulfate [FeroSul] 325 mg (65 mg iron) tablet 325 mg PO QPM levothyroxine 50 mcg tablet 50 mcg PO .qhs aspirin [Adult Aspirin Regimen] 81 mg tablet,delayed release (DR/EC) 81 mg PO DAILY Hold Instructions: Doctor's Order Eliquis 5 mg Tablet 2.5 mg PO BID Qty: 60 0RF Patient Comments: recieves samples from Dr. Lopez's office insulin aspart U-100 [Novolog FlexPen U-100 Insulin] 100 unit/mL (3 mL) Insulin Pen 2 - 14 unit subcut ACHS Qty: 15 0RF amitriptyline 50 mg tablet 50 mg PO BEDTIME carvedilol 25 mg tablet 25 mg PO BID bumetanide 2 mg tablet 2 mg PO .qd isosorbide mononitrate 60 mg tablet extended release 24 hr 120 mg PO .qd spironolactone 25 mg tablet 12.5 mg PO .qd Discontinued Entresto 49-51 mg tablet 1 tab PO BID Patient Comments: recieves samples from Dr. Lopez's office insulin glargine 100 unit/mL solution 40 unit subcut BID Print Language: Persian Forms: Portal Instructions Follow Up Appointments: February 20 @ 2:40pm with [place] [facility] at [facility] [phone] February 12 appt. has been cancelled
--- NOTE | 2024-02-09 08:14 | SWNOTE1 ---
Pt is approved to go to [facility]. SW let doctor know.
[2024-02-09] MEDS: BUMETANIDE 1 MG TABLET 2 MG PO (08:18)
[2024-02-09] MEDS: APIXABAN 5 MG TABLET 2.5 MG PO (08:19)
[2024-02-09] MEDS: ISOSORBIDE MONONITRATE 60 MG TAB.ER.24H 120 MG PO (08:19)
[2024-02-09] MEDS: ASPIRIN 81 MG TABLET.DR PO (08:20)
[2024-02-09] MEDS: CARVEDILOL 25 MG TABLET PO (08:20)
[2024-02-09] MEDS: SACUBITRIL/VALSARTAN 24 MG-26 MG TABLET 4 TAB PO (08:21)
[2024-02-09] MEDS: CEFTRIAXONE 1,000 MG in 0.9 % SODIUM CHLORIDE 50 ML 100 MG IV (08:21)
[2024-02-09] MEDS: POTASSIUM CHLORIDE 10 MEQ ER TABLET 20 MEQ PO (08:23)
[2024-02-09] MEDS: SPIRONOLACTONE 25 MG TABLET 12.5 MG PO (08:23)
[2024-02-09] MEDS: 0.9 % SODIUM CHLORIDE 250 ML 10 ML IV (08:23)
[2024-02-09] MEDS: DOXYCYCLINE MONOHYDRATE 100 MG CAPSULE PO (08:23)
[2024-02-09] MEDS: INSULIN ASPART 300 UNIT/3 ML PEN SUBQ ×2 (08:24→11:27)
[2024-02-09] MEDS: INSULIN DETEMIR 300 UNIT/3 ML INSULN.PEN 30 UNIT SQ (08:25)
--- NOTE | 2024-02-09 08:53 | SWNOTE1 ---
Pt is approved to go to [facility] today and will be dc today. LESLEY sent over finalized dc med rec to [facility] via fax. LESLEY called pt's son Myriam and left a message. LESLEY called pt's son Roosevelt and spoke with him about transport. He would like SW to set up transport with trips. LESLEY called and set up trips for 11:45-12:15. LESLEY called back Roosevelt and let him know. LESLEY notified nursing and [facility] of time as well. LESLEY completed HENS and took packet to med/surge floor.
[2024-02-09 11:07] LABS: Glucometer 332 mg/dL (74-106)
== END 2024-02-09 12:11 | DRG 291 ==
LOC: ER 13:27 → MS 14:12
PROVIDERS: Admitting Provider Family Medicine; Emergency Provider Emergency Medicine; PCP Family Medicine; Visit Provider Family Medicine
DX: I13.0 Hypertensive heart and chronic kidney disease with heart failure and stage 1 through stage 4 chronic kidney disease, or unspecified chronic kidney disease (principal); I50.41 Acute combined systolic (congestive) and diastolic (congestive) heart failure; E44.0 Moderate protein-calorie malnutrition; E87.0 Hyperosmolality and hypernatremia; N17.9 Acute kidney failure, unspecified; L03.116 Cellulitis of left lower limb; L03.115 Cellulitis of right lower limb; R53.1 Weakness; R79.89 Other specified abnormal findings of blood chemistry; D50.9 Iron deficiency anemia, unspecified; E11.22 Type 2 diabetes mellitus with diabetic chronic kidney disease; N18.30 Chronic kidney disease, stage 3 unspecified; D63.1 Anemia in chronic kidney disease; G47.00 Insomnia, unspecified; E87.6 Hypokalemia; E03.9 Hypothyroidism, unspecified; Z87.891 Personal history of nicotine dependence; Z79.890 Hormone replacement therapy; Z79.01 Long term (current) use of anticoagulants; Z79.82 Long term (current) use of aspirin; Z79.4 Long term (current) use of insulin; Z91.81 History of falling; Z68.31 Body mass index [BMI] 31.0-31.9, adult; I25.2 Old myocardial infarction; E11.42 Type 2 diabetes mellitus with diabetic polyneuropathy; I48.91 Unspecified atrial fibrillation; I25.10 Atherosclerotic heart disease of native coronary artery without angina pectoris; E78.5 Hyperlipidemia, unspecified; R06.09 Other forms of dyspnea; Z66 Do not resuscitate
CPT/HCPCS: 36415; 71045; 71046; 73502; 80053; 82948; 83735; 83880; 84439; 84443; 84484; 85025; 85378; 93005; 93308; 94667; 94668; 94761; 96365; 96366; 96375; 96376; 97163; 97165; 99285; J0360; J0696

== ENCOUNTER 2024-02-13 07:06 | Outpatient (RCR) | payer MEDICARE, SELFPAY ==
--- NOTE | 2024-01-02 09:51 | CR1_ITS ---
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
--- NOTE | 2024-01-09 14:33 | CR1_ITS ---
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
--- NOTE | 2024-02-07 09:23 | CR1_ITS ---
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
--- NOTE | 2024-03-05 09:06 | PC.NURSE ---
patient currently admitted to the hospital. spoke with patient in his room, his plan is to discharge when medically stable and return to retirement care. patient wishes to be discharged from cardiac rehab at this time.
--- NOTE | 2024-03-05 14:32 | CR1_ITS ---
The [facility] Test Date: 2024-03-05 Pat Name: JAJA FRANKLIN Department: Room: - Gender: Male [employer]: : 1940 Requested By: DERRICK AYALA Order Number: [id number] Reading MD: PEBBLES LÓPEZ Interpretive Statements Session Date: Electronically Signed On 03-05-2024 23:11:02 EDT by PEBBLES LÓPEZ
== END 2024-03-05 09:10 ==
LOC: CR 07:06
PROVIDERS: PCP Family Medicine; Visit Provider Family Medicine
DX: I25.2 Old myocardial infarction (principal)
CPT/HCPCS: 93798

== ENCOUNTER 2024-02-22 10:48 | Inpatient (IN) | payer MEDICARE, SELFPAY ==
[2024-02-22] VITALS (29 sets, daily range): BP systolic 114–159; BP diastolic 71–90; PULSE 76–91; TEMP 36.7–37.2; O2SAT 93–98; BMI 30.1; BMI 31.7
--- NOTE | 2024-02-22 10:57 | ECG_ITS ---
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: : 1940 Requested By: DERRICK AYALA Order Number: [id number] Reading MD: DERRICK AYALA Measurements Intervals [place] Rate: 88 P: -[id number] KS: -[id number] QRS: 34 QRSD: 86 T: 211 QT: 376 QTc: 421 Interpretive Statements 1210 Atrial fibrillation [address] depression, probably digitalis effect 89149 Twave abnormality, possible lateral ischemia or digitalis effect 02764 Twave abnormality, possible inferior ischemia or digitalis effect 9150 abnormal ECG Compared to ECG 02/06/2024 12:01:31 ST (T wave) deviation now present Sinus rhythm no longer present Possible ischemia still present Electronically Signed On 02-23-2024 5:30:28 EDT by DERRICK AYALA
--- NOTE | 2024-02-22 10:57 | ED.GENADUL1 ---
HPI HPI - General Adult General Chief complaint: Recheck/Abnormal Lab/Rx Stated complaint: GENERAL WEAKNESS Time Seen by Provider: 02/22/24 10:57 Source: patient and medical record Mode of arrival: ambulance Limitations: physical limitation History of Present Illness HPI narrative: This patient brought to us by ambulance from a prison [facility]. He tested recently positive for COVID. He has a number of medical problems as noted on his transfer sheet. He has chronic renal compromise. His recent laboratory testing done 2 days ago shows a BUN and creatinine of 70/2.7 respectively. That actually did show some improvement from testing prior to that time. There is no documented clinical deterioration he is being sent here for overall evaluation. It should be noted that he was on a course of doxycycline earlier this month and more recently it was just started on the , yesterday, on azithromycin. Prior to that time he was on a 9-day course of doxycycline. He was also recently started on spironolactone started on February 08 to be continued February 21. His CODE STATUS is DNR CCA. Tested positive for COVID 3 days ago. Related Data Home Medications ?Medication ?Instructions ?Recorded ?Confirmed atorvastatin 20 mg tablet 20 mg PO .QHS 01/28/23 02/22/24 ferrous sulfate 325 mg (65 mg 325 mg PO QPM 01/28/23 02/22/24 iron) tablet (FeroSul) levothyroxine 50 mcg tablet 50 mcg PO .qhs 01/28/23 02/22/24 aspirin 81 mg tablet,delayed 81 mg PO DAILY 01/30/23 02/22/24 release (Adult Aspirin Regimen) amitriptyline 50 mg tablet 50 mg PO BEDTIME 04/30/23 02/22/24 carvedilol 25 mg tablet 25 mg PO BID 04/30/23 02/22/24 bumetanide 2 mg tablet 2 mg PO .qd 02/06/24 02/22/24 isosorbide mononitrate 60 mg 120 mg PO .qd 02/06/24 02/22/24 tablet,extended release 24 hr spironolactone 25 mg tablet 12.5 mg PO .qd 02/06/24 02/22/24 azithromycin 250 mg tablet See Rx Instructions PO .COMPLEX 02/22/24 02/22/24 (Zithromax) bumetanide 1 mg tablet 1 mg PO DAILY 02/22/24 02/22/24 insulin detemir U-100 100 unit/mL 38 unit subcut QAM 02/22/24 02/22/24 (3 mL) subcutaneous pen (Levemir FlexPen) ipratropium 0.5 mg-albuterol 3 mg 3 ml inhalation Q6H PRN shortness 02/22/24 02/22/24 (2.5 mg base)/3 mL nebulization of breath or wheezing soln Previous Rx's ?Medication ?Instructions ?Recorded apixaban 5 mg tablet (Eliquis) 2.5 mg (1/2 x 5 mg) PO BID #60 tabs 02/02/23 insulin aspart U-100 100 unit/mL 2 - 14 unit (0.02 - 0.14 mL) 02/08/23 (3 mL) subcutaneous pen (Novolog subcut ACHS #15 mL FlexPen U-100 Insulin aspart) cefdinir 300 mg capsule 600 mg (2 x 300 mg) PO DAILY #20 02/09/24 caps doxycycline monohydrate 100 mg 100 mg PO BID #20 caps 02/09/24 capsule hydralazine 25 mg tablet 25 mg PO TID #90 tabs 02/09/24 sacubitril 97 mg-valsartan 103 mg 1 tab PO BID #60 tabs 02/09/24 tablet (Entresto) Allergies Allergy/AdvReac Type Severity Reaction Status Date / Time Sulfa (Sulfonamide Allergy Intermediate pass out Verified 02/22/24 10:53 Antibiotics) Opioid HPI Opioid Management Most Recent Opioid Data: Last Pain Scale 3 05/01/23 07:40 Last Pain Intensity 0 02/08/23 10:25 Last ORT Total Score 0 02/06/24 14:21 Last ORT Risk Category Low Risk 02/06/24 14:21 [facility] Medical History (Updated 02/22/24 @ 12:38 by Juan Luis Buckley MD) Acute kidney injury superimposed on CKD ?N17.9 - Acute kidney failure, unspecified (ICD-10) ?N18.9 - Chronic kidney disease, unspecified (ICD-10) Acute combined systolic (congestive) and diastolic (congestive) heart failure ?I50.41 - Acute combined systolic (congestive) and diastolic (congestive) heart failure (ICD-10) Dyspnea ?R06.00 - Dyspnea, unspecified (ICD-10) Frequent falls ?R29.6 - Repeated falls (ICD-10) Generalized weakness ?R53.1 - Weakness (ICD-10) Fall ?W19.XXXA - Unspecified fall, initial encounter (ICD-10) IDDM (insulin dependent diabetes mellitus) Altered mental status ?R41.82 - Altered mental status, unspecified (ICD-10) 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 ?N18.6 - End stage renal disease (ICD-10) ?D63.1 - Anemia in chronic kidney disease (ICD-10) CKD stage 3 due to type 2 diabetes mellitus ?E11.22 - Type 2 diabetes mellitus with diabetic chronic kidney disease (ICD-10) ?N18.30 - Chronic kidney disease, stage 3 unspecified (ICD-10) Hypotension due to medication ?I95.2 - Hypotension due to drugs (ICD-10) Acute hypotension ?I95.9 - Hypotension, unspecified (ICD-10) Cellulitis ?L03.90 - Cellulitis, unspecified (ICD-10) Diabetes ?E11.9 - Type 2 diabetes mellitus without complications (ICD-10) Afib ?I48.91 - Unspecified atrial fibrillation (ICD-10) CHF (congestive heart failure) ?I50.9 - Heart failure, unspecified (ICD-10) Hypothyroidism ?E03.9 - Hypothyroidism, unspecified (ICD-10) HTN (hypertension) ?I10 - Essential (primary) hypertension (ICD-10) Acute renal failure ?N17.9 - Acute kidney failure, unspecified (ICD-10) Peripheral neuropathy ?G62.9 - Polyneuropathy, unspecified (ICD-10) Family History Other Family history of diabetes mellitus Social History Smoking status: Former smoker Non-prescribed substance use: denies use Highest level of school completed/degree received: 10th grade Are you now , , , , never or living with a partner: In a typical week, how many times do you talk on the telephone with family, friends, or neighbors: 3 or more times per week How often do you get together with friends or relatives: twice per week How often do you attend uatsdin or hindu services: 1-3 times per year Do you belong to any clubs or organizations such as uatsdin groups unions, fraternal or athletic groups, or school groups: no Total score: 1 Score interpretation: A score of less than or equal to 1 indicates the most socially isolated. Little interest or pleasure in doing things: several days Feeling down, depressed, or hopeless: several days Feel stressed/tense/nervous/anxious/difficulty sleeping: not at all Life stressors: recent of family or friend Do you think of yourself as: straight/heterosexual Gender Identity: male Exam Narrative Exam Narrative: Patient is awake oriented x 3 good historian pleasant denies any symptoms at all at this time. Does admit to having some chills several days ago but did not have aches pains myalgias arthralgias. Has no shortness of breath. Vital signs are noted. Did review his outpatient laboratory testing and previous testing from this facility. Cognition and mental status is normal GCS is 15 there is no confusion. His lungs shows slight scattered rhonchi in the bases no wheezing no increased respiratory effort. Pulse oximetry stable. Heart rate and rhythm are normal. Abdomen is obese but he has no abdominal discomfort. Extremities show 1-2+ leg edema but the previous cellulitis that was treated with outpatient antibiotic shows marked improvement. Peripheral perfusion extremities is normal. Neurological as noted above cognition and mental status is normal with no focal deficits. Constitutional Vital Signs, click to edit/add: Last Vital Signs Temp 99.0 F 02/22/24 10:50 Pulse 88 02/22/24 10:50 Resp 22 H 02/22/24 10:50 BP 159/86 H 02/22/24 10:50 Pulse Ox 97 02/22/24 10:50 O2 Del Method Room Air 02/22/24 10:50 Course Vital Signs Vital signs: Vital Signs Temperature 99.0 F 02/22/24 10:50 Pulse Rate 88 02/22/24 10:50 Respiratory Rate 22 H 02/22/24 10:50 Blood Pressure 159/86 H 02/22/24 10:50 Pulse Oximetry 97 02/22/24 10:50 Oxygen Delivery Method Room Air 02/22/24 10:50 Temperature 99.0 F 02/22/24 10:50 Pulse Rate 88 02/22/24 10:50 Respiratory Rate 22 H 02/22/24 10:50 Blood Pressure 159/86 H 02/22/24 10:50 Pulse Oximetry 97 02/22/24 10:50 Oxygen Delivery Method Room Air 02/22/24 10:50 Medical Decision Making MDM Narrative Medical decision making narrative: This patient from [facility] shows progressive and continuing elevation of his BUN and creatinine. He has many many comorbidities including heart failure and diabetes. It would be extremely difficult to reverse this deterioration of his kidney function as an outpatient. Primary care doctor hospitalist here will admit him for ongoing treatment and evaluation and stabilization. Discharge Plan Discharge Chief Complaint: Recheck/Abnormal Lab/Rx Clinical Impression: Acute on chronic kidney failure Patient Disposition: Admitted as Observation Time of Disposition Decision: 12:38 Prescriptions / Home Meds: No Action atorvastatin 20 mg tablet 20 mg PO .QHS ferrous sulfate [FeroSul] 325 mg (65 mg iron) tablet 325 mg PO QPM levothyroxine 50 mcg tablet 50 mcg PO .qhs aspirin [Adult Aspirin Regimen] 81 mg tablet,delayed release (DR/EC) 81 mg PO DAILY Hold Instructions: Doctor's Order Eliquis 5 mg Tablet 2.5 mg PO BID Qty: 60 0RF Patient Comments: recieves samples from Dr. Lopez's office insulin aspart U-100 [Novolog FlexPen U-100 Insulin] 100 unit/mL (3 mL) Insulin Pen 2 - 14 unit subcut ACHS Qty: 15 0RF amitriptyline 50 mg tablet 50 mg PO BEDTIME carvedilol 25 mg tablet 25 mg PO BID bumetanide 2 mg tablet 2 mg PO .qd isosorbide mononitrate 60 mg tablet extended release 24 hr 120 mg PO .qd spironolactone 25 mg tablet 12.5 mg PO .qd doxycycline monohydrate 100 mg Capsule 100 mg PO BID Qty: 20 0RF cefdinir 300 mg capsule 600 mg PO DAILY Qty: 20 0RF hydralazine 25 mg Tablet 25 mg PO TID Qty: 90 11RF Levemir FlexPen 100 unit/mL (3 mL) Insulin Pen 30 unit subcut QAM Qty: 15 11RF Entresto 97-103 mg tablet 1 tab PO BID Qty: 60 11RF Print Language: German Referrals: Yao Lopez MD [Primary Care Provider] - 1 week
--- NOTE | 2024-02-22 11:01 | XR_ITS ---
The [address] [address] Patient Name: JAJA FRANKLIN MRN: [id number] date: 1940 Sex: M Assigned Patient Location: ER Current Patient Location: ER Accession/Order Number: [id number] Exam Date: 02/22/2024 11:22 Report Date: 02/22/2024 12:09 At the request of: BOBBI LEBLANC Procedure: XR chest 1V EXAMINATION: XR chest 1V HISTORY: Dyspnea COMPARISON: XR chest 02/07/2024 FINDINGS: LUNGS: Underexpanded lungs with mild stranding within lung bases, left greater than right. VASCULATURE: No increased pulmonary vasculature. PLEURA: No pneumothorax, effusion, or pleural thickening. CARDIAC: Stable cardiomegaly. MEDIASTINUM: Prior sternotomy. No appreciable change in mediastinum. BONES: No fracture or visible bone lesion. OTHER: Negative. XR/XR chest 1V IMPRESSION: 1. Underexpanded lungs with mild left basilar and trace amount of right basilar infiltrates versus atelectasis. Electronically authenticated by: AWAIS TELLO Date: 02/22/2024 12:09
[2024-02-22 11:10] LABS: Basophils Percent Auto 0.1 % (0.2-2.0); Eosinophils Percent Auto 0.1 % (0.9-7.0); Hematocrit 36.1 % (42.0-54.0); Hemoglobin 11.6 g/dL (14.0-18.0); Immature Granulocytes Abs Auto 0.05 10^3/uL (0.00-0.03); Immature Granulocytes Pct Auto 0.7 % (0.0-0.5); Lymphocytes Absolute Auto 0.8 10^3/uL (1.2-3.8); Lymphocytes Percent Auto 11.2 % (20.5-60.0); Mean Corpuscular HGB Conc 32.1 g/dL (29.9-35.2); Mean Corpuscular Hemoglobin 32.5 pg (25.9-34.0); Mean Corpuscular Volume 101.1 fL (80.0-94.0); Mean Platelet Volume 11.3 fL (9.5-13.5); Monocytes Absolute Auto 0.9 10^3/uL (0.3-0.8); Monocytes Percent Auto 12.8 % (1.7-12.0); Neutrophils Absolute Auto 5.2 10^3/uL (1.4-6.5); Neutrophils Percent Auto 75.1 % (43.0-75.0); Platelet Count 150 10^3/uL (150-450); Red Blood Count 3.57 10^6/uL (4.70-6.10); Red Cell Distribution Width 15.1 % (11.0-15.0); White Blood Count 6.9 10^3/uL (4.0-11.0)
[2024-02-22 11:11] LABS: PCO2 VBG 47.6 mmHg (40.0-52.0); pH VBG 7.326 (7.330-7.430)
--- NOTE | 2024-02-22 11:35 | PC.NURSE ---
Pt was incontinent of stool at this time. Skin care completed. New depend and sheet placed under pt. pt tolerated laying back well. Repositioned for comfort with other RN at bedside. Call light within reach.
[2024-02-22 11:36] LABS: Anion Gap 13.3
[2024-02-22 11:42] LABS: Alanine Aminotransferase 87 U/L (16-63); Albumin Globulin Ratio 0.7; Albumin Level 2.4 g/dL (3.4-5.0); Alkaline Phosphatase 91 U/L (46-116); Aspartate Amino Transferase 50 U/L (15-37); BUN Creatinine Ratio 24.4; Bilirubin Total 0.6 mg/dL (0.2-1.0); Calcium 8.3 mg/dL (8.5-10.1); Chloride 105 mmol/L (98-107); Estimated GFR (African America 24 (>=60); Estimated GFR (Non-African Ame 19 (>=60); Globulin 3.5 g/dL; Glucose 194 mg/dL (74-106); Potassium 4.3 mmol/L (3.5-5.1); Sodium 141 mmol/L (136-145); Total Protein 5.9 g/dL (6.4-8.2); Troponin I High Sensitivity 47.8 pg/mL (4.0-76.1)
--- NOTE | 2024-02-22 14:06 | SWNOTE1 ---
Pt is still at [facility] skilled. LESLEY called and spoke with pt's son Myriam. He voiced they are happy with his care there. He voiced some frustration with communication at the facility, but overall happy. The plan is for pt to return once he is medically stable. LESLYE has a message out to [place] at to check if he is a precert to return.
[2024-02-22] MEDS: LACTATED RINGER'S SOLUTION 1,000 ML 50 ML IV (14:23)
[2024-02-22] MEDS: HYDRALAZINE HCL 25 MG TABLET PO (14:25)
[2024-02-22 14:27] LABS: Troponin I High Sensitivity 47.5 pg/mL (4.0-76.1)
[2024-02-22 14:31] LABS: Lactate/Lactic Acid 0.8 mmol/L (0.4-2.0)
--- NOTE | 2024-02-22 14:44 | SWNOTE1 ---
LESLEY reached out to [facility] via email to see if pt needs precert to return. LESLEY also called and had to wait on hold to speak with [facility] or Nanette at [facility], but nobody answered and the nurse at [facility] stated she may be gone for the day. It is likely pt will need a precert to return. SW to check in the morning.
[2024-02-22] MEDS: LEVOFLOXACIN IN DEXTROSE 5 % 750 MG/150 ML IV.SOLN 100 MG IV (15:36)
[2024-02-22 16:22] LABS: Glucometer 109 mg/dL (74-106)
[2024-02-22] MEDS: IPRATROPIUM/ALBUTEROL SULFATE 3 ML AMPUL.NEB IH ×2 (16:50→23:16)
[2024-02-22] MEDS: AZITHROMYCIN 500 MG in 0.9 % SODIUM CHLORIDE 250 ML 125 MG IV (17:56)
--- NOTE | 2024-02-22 18:44 | P.HP_ITS ---
HPI H&P: HPI History of Present Illness Chief complaint: GENERAL WEAKNESS, ACUTE ON CHRONIC KIDNEY FAILURE Narrative: Patient well-known to me from long-term care at the office and frequent hospitalizations. Currently a resident for rehabilitation. Started having increasing weakness and cough. Found to have COVID-19. Kidney function continues to deteriorate. Patient was recommended referral to emergency room. In the emergency room patient other than the fatigue and slight cough no other real specific complaints. He normally has 2+ edema is at baseline for him and he has trace to maybe 1+ edema in his bilateral lower extremities today. Chest exam showed possible bilateral pneumonia. With the positive COVID-19 and symptoms will be admitted for workup and treatment of same. Despite his lack of hypoxia with his degree of renal failure he is unable to take Paxlovid. Opioid HPI Opioid Management Most Recent Pain and Opioid Data: Last Pain Scale 3 05/01/23 07:40 Last Pain Intensity 0 02/08/23 10:25 Last Pain Assessment 02/22/24 17:53 Last ORT Total Score 0 02/22/24 13:26 Last ORT Risk Category Low Risk 02/22/24 13:26 PFSH PFSH Medical History (Updated 02/22/24 @ 12:38 by Juan Luis Buckley MD) Acute kidney injury superimposed on CKD ?N17.9 - Acute kidney failure, unspecified (ICD-10) ?N18.9 - Chronic kidney disease, unspecified (ICD-10) Acute combined systolic (congestive) and diastolic (congestive) heart failure ?I50.41 - Acute combined systolic (congestive) and diastolic (congestive) heart failure (ICD-10) Dyspnea ?R06.00 - Dyspnea, unspecified (ICD-10) Frequent falls ?R29.6 - Repeated falls (ICD-10) Generalized weakness ?R53.1 - Weakness (ICD-10) Fall ?W19.XXXA - Unspecified fall, initial encounter (ICD-10) IDDM (insulin dependent diabetes mellitus) Altered mental status ?R41.82 - Altered mental status, unspecified (ICD-10) 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 ?N18.6 - End stage renal disease (ICD-10) ?D63.1 - Anemia in chronic kidney disease (ICD-10) CKD stage 3 due to type 2 diabetes mellitus ?E11.22 - Type 2 diabetes mellitus with diabetic chronic kidney disease (ICD- 10) ?N18.30 - Chronic kidney disease, stage 3 unspecified (ICD-10) Hypotension due to medication ?I95.2 - Hypotension due to drugs (ICD-10) Acute hypotension ?I95.9 - Hypotension, unspecified (ICD-10) Cellulitis ?L03.90 - Cellulitis, unspecified (ICD-10) Diabetes ?E11.9 - Type 2 diabetes mellitus without complications (ICD-10) Afib ?I48.91 - Unspecified atrial fibrillation (ICD-10) CHF (congestive heart failure) ?I50.9 - Heart failure, unspecified (ICD-10) Hypothyroidism ?E03.9 - Hypothyroidism, unspecified (ICD-10) HTN (hypertension) ?I10 - Essential (primary) hypertension (ICD-10) Acute renal failure ?N17.9 - Acute kidney failure, unspecified (ICD-10) Peripheral neuropathy ?G62.9 - Polyneuropathy, unspecified (ICD-10) Family History Other Family history of diabetes mellitus Social History Smoking status: Former smoker Non-prescribed substance use: denies use Highest level of school completed/degree received: 10th grade Are you now , , , , never or living with a partner: In a typical week, how many times do you talk on the telephone with family, friends, or neighbors: 3 or more times per week How often do you get together with friends or relatives: twice per week How often do you attend hindu or druze services: 1-3 times per year Do you belong to any clubs or organizations such as hindu groups unions, fraternal or athletic groups, or school groups: no Total score: 1 Score interpretation: A score of less than or equal to 1 indicates the most socially isolated. Little interest or pleasure in doing things: several days Feeling down, depressed, or hopeless: several days Feel stressed/tense/nervous/anxious/difficulty sleeping: not at all Life stressors: recent of family or friend Do you think of yourself as: straight/heterosexual Gender Identity: male Meds Home Medications and Allergies Home Medications ?Medication ?Instructions ?Recorded ?Confirmed ?Type atorvastatin 20 mg tablet 20 mg PO .QHS 01/28/23 02/22/24 History ferrous sulfate 325 mg (65 mg 325 mg PO .QHS 01/28/23 02/22/24 History iron) tablet (FeroSul) levothyroxine 50 mcg tablet 50 mcg PO .qhs 01/28/23 02/22/24 History aspirin 81 mg tablet,delayed 81 mg PO DAILY 01/30/23 02/22/24 History release (Adult Aspirin Regimen) apixaban 5 mg tablet (Eliquis) 2.5 mg (1/2 x 5 mg) PO BID #60 tabs 02/02/23 02/22/24 Rx insulin aspart U-100 100 unit/mL 2 - 14 unit (0.02 - 0.14 mL) 02/08/23 02/22/24 Rx (3 mL) subcutaneous pen (Novolog subcut ACHS #15 mL FlexPen U-100 Insulin aspart) amitriptyline 50 mg tablet 50 mg PO BEDTIME 04/30/23 02/22/24 History carvedilol 25 mg tablet 25 mg PO BID 04/30/23 02/22/24 History bumetanide 2 mg tablet 2 mg PO .qd 02/06/24 02/22/24 History isosorbide mononitrate 60 mg 120 mg PO .qd 02/06/24 02/22/24 History tablet,extended release 24 hr spironolactone 25 mg tablet 12.5 mg PO .qd 02/06/24 02/22/24 History hydralazine 25 mg tablet 25 mg PO TID #90 tabs 02/09/24 02/22/24 Rx sacubitril 97 mg-valsartan 103 mg 1 tab PO BID #60 tabs 02/09/24 02/22/24 Rx tablet (Entresto) azithromycin 250 mg tablet See Rx Instructions PO .COMPLEX 02/22/24 02/22/24 History (Zithromax) cefdinir 300 mg capsule 600 mg PO DAILY 02/22/24 02/22/24 History insulin detemir U-100 100 unit/mL 38 unit subcut QAM 02/22/24 02/22/24 History (3 mL) subcutaneous pen (Levemir FlexPen) Allergies Allergy/AdvReac Type Severity Reaction Status Date / Time Sulfa (Sulfonamide Allergy Intermediate pass out Verified 02/22/24 10:53 Antibiotics) Exam Constitutional Vital Signs, click to edit/add: Last Vital Signs Temp 98.1 F 02/22/24 13:26 Pulse 80 02/22/24 18:00 Resp 16 02/22/24 16:52 BP 132/81 02/22/24 13:26 Pulse Ox 93 L 02/22/24 16:52 O2 Del Method Room Air 02/22/24 16:54 Documenting provider has reviewed patient's vital signs: yes Common normals: no apparent distress Chest Common normals: inspection of chest normal Respiratory Common normals: normal respiratory effort and no retractions; not clear to ascultation bilaterally Auscultation: rhonchi Cardio Common normals: regular rate, regular rhythm and no murmurs GI Common normals: Normal to inspection, nondistended, normoactive bowel sounds present and soft to palpation Extremity Common normals: abnormal to inspection (Trace to 1+ edema, great for him!) Results Labs Labs: Short CBC 02/22/24 Range/Units 11:00 WBC 6.9 (4.0-11.0) 10^3/uL Hgb 11.6 L (14.0-18.0) g/dL Hct 36.1 L (42.0-54.0) % Plt Count 150 (150-450) 10^3/uL BMP 02/22/24 11:00 Sodium 141 Potassium 4.3 Chloride 105 Carbon Dioxide 27.0 BUN 76.0 H* Creatinine 3.11 H Glucose 194 H Calcium 8.3 L Liver Function 02/22/24 Range/Units 11:00 Total Bilirubin 0.6 (0.2-1.0) mg/dL AST 50 H (15-37) U/L ALT 87 H (16-63) U/L Alkaline Phosphatase 91 (46-116) U/L Albumin 2.4 L (3.4-5.0) g/dL ABG ABG results: 02/22/24 11:00 VBG pH 7.326 L VBG pCO2 47.6 Assessment and Plan Assessment and Plan (1) Acute on chronic kidney failure: (2) Diabetes: (3) CHF (congestive heart failure): (4) Dyspnea: Qualifiers: Dyspnea type: dyspnea on exertion Qualified Code(s): R06.09 - Other forms of dyspnea (5) Frequent falls: (6) CKD stage 3 due to type 2 diabetes mellitus: (7) IDDM (insulin dependent diabetes mellitus): (8) Acute combined systolic (congestive) and diastolic (congestive) heart failure: Plan Admission findings: Uncontrolled hypertension, cough, acute renal failure, elevated BNP secondary to bilateral lower lobe pneumonia likely a complication of [id number] start patient on remdesivir, hold off on steroids due to the diabetes, IV antibiotics. Aerosol treatments. 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 He will not be edema free for the rest of his life. His lung exam lower extremities are probably the least amount of edema that I have seen for quite some time for him. Maintain compression hose, maintain current antibiotics. May need to cut back on Entresto but wanted to see how well he did with gentle hydration first. Acute renal failure with CKD 3-creatinine over 3 currently. Baseline creatinine of 1.69. Admission creatinine of 3.11, this is 184% above baseline Moderate protein calorie malnutrition-diet supplement Diabetes mellitus-insulin sliding scale with home medications, can send to the addition of Jardiance Insomnia-continue with home medications Hypertension-continue with home medications may need adjustment as his blood pressure is significant elevated on admission Hypothyroidism-continue with home medications levels are normal Admission status: She was a new COVID-19 but complicated by acute renal failure, his creatinine is 184% above baseline. With his history of chronic combined congestive heart failure unable to give significant fluid resuscitation quickly. Slow hydration. Medically necessary treatment will span 2 midnights. Inpatient status.
[2024-02-22] MEDS: REMDESIVIR 200 MG in 0.9 % SODIUM CHLORIDE 250 ML 250 MG IV (20:08)
[2024-02-22 20:57] LABS: Glucometer 140 mg/dL (74-106)
[2024-02-22] MEDS: CARVEDILOL 25 MG TABLET PO (22:57)
[2024-02-22] MEDS: FERROUS SULFATE 325 MG TABLET PO (22:57)
[2024-02-22] MEDS: SACUBITRIL/VALSARTAN 24 MG-26 MG TABLET 4 TAB PO (22:57)
[2024-02-22] MEDS: ATORVASTATIN CALCIUM 20 MG TABLET PO (22:57)
[2024-02-22] MEDS: ENSURE HP 237 ML LIQUID PO (22:57)
[2024-02-22] MEDS: AMITRIPTYLINE HCL 50 MG TABLET PO (22:57)
[2024-02-22] MEDS: PROSTAT 15 GM PROTEIN/100 CAL 30 ML LIQUID PACKET PO (22:58)
[2024-02-22] MEDS: APIXABAN 5 MG TABLET 2.5 MG PO (22:58)
[2024-02-23] VITALS (22 sets, daily range): BP systolic 128–162; BP diastolic 72–87; PULSE 72–89; TEMP 36.4–37.1; O2SAT 91–96
[2024-02-23] MEDS: IPRATROPIUM/ALBUTEROL SULFATE 3 ML AMPUL.NEB IH ×4 (04:46→23:19)
[2024-02-23] MEDS: LEVOTHYROXINE SODIUM 25 MCG TABLET 50 MCG PO (05:36)
[2024-02-23 05:47] LABS: Basophils Percent Auto 0.2 % (0.2-2.0); Eosinophils Percent Auto 0.2 % (0.9-7.0); Hematocrit 31.4 % (42.0-54.0); Hemoglobin 10.3 g/dL (14.0-18.0); Immature Granulocytes Abs Auto 0.01 10^3/uL (0.00-0.03); Immature Granulocytes Pct Auto 0.2 % (0.0-0.5); Lymphocytes Absolute Auto 0.7 10^3/uL (1.2-3.8); Lymphocytes Percent Auto 12.1 % (20.5-60.0); Mean Corpuscular HGB Conc 32.8 g/dL (29.9-35.2); Mean Corpuscular Hemoglobin 32.1 pg (25.9-34.0); Mean Corpuscular Volume 97.8 fL (80.0-94.0); Mean Platelet Volume 10.6 fL (9.5-13.5); Monocytes Absolute Auto 0.7 10^3/uL (0.3-0.8); Neutrophils Absolute Auto 4.2 10^3/uL (1.4-6.5); Neutrophils Percent Auto 74.3 % (43.0-75.0); Platelet Count 124 10^3/uL (150-450); Red Blood Count 3.21 10^6/uL (4.70-6.10); White Blood Count 5.7 10^3/uL (4.0-11.0)
[2024-02-23 06:20] LABS: Alanine Aminotransferase 79 U/L (16-63); Albumin Globulin Ratio 0.6; Alkaline Phosphatase 73 U/L (46-116); Anion Gap 12.2; Aspartate Amino Transferase 35 U/L (15-37); BUN Creatinine Ratio 28.1; Bilirubin Total 0.4 mg/dL (0.2-1.0); Calcium 8.1 mg/dL (8.5-10.1); Carbon Dioxide 24.9 mmol/L (21.0-32.0); Chloride 109 mmol/L (98-107); Estimated GFR (African America 29 (>=60); Estimated GFR (Non-African Ame 24 (>=60); Globulin 3.3 g/dL; Glucose 101 mg/dL (74-106); Potassium 4.1 mmol/L (3.5-5.1); Sodium 142 mmol/L (136-145); Total Protein 5.3 g/dL (6.4-8.2)
--- NOTE | 2024-02-23 08:40 | SWNOTE1 ---
LESLEY did have email from Nanette at [facility]. Pt is a precert to return. Family also did not pay to hold the bed. [facility] will have an opening tomorrow. LESLEY sent updates for precert to Nanette. LESLEY also met with family. They had several questions, which were more for [facility] to answer. They voiced pt only has 6 Medicare days left before he is in to his co-pay days. They also were asking about assisted living options that accept Medicaid and the criteria to be in [place]. LESLEY did express to family that they will have to call around to [place]'s and see who accepts medicaid and get pt on wait lists. SW to find out about Medicare days left and if they re-start since he has been admitted to hospital, SW will call Nanette. Family would like to set up time to speak with Nanette or someone at [facility] to discuss. SW to try and set up time. LESLEY sent updates to Nanette for precert to be started.
[2024-02-23] MEDS: SACUBITRIL/VALSARTAN 24 MG-26 MG TABLET 4 TAB PO ×2 (08:50→21:24)
[2024-02-23] MEDS: PROSTAT 15 GM PROTEIN/100 CAL 30 ML LIQUID PACKET PO ×2 (08:50→21:24)
[2024-02-23] MEDS: INSULIN DETEMIR 300 UNIT/3 ML INSULN.PEN 38 UNIT SUBQ (08:51)
[2024-02-23] MEDS: CARVEDILOL 25 MG TABLET PO ×2 (08:51→21:24)
[2024-02-23] MEDS: APIXABAN 5 MG TABLET 2.5 MG PO ×2 (08:51→21:25)
[2024-02-23] MEDS: ISOSORBIDE MONONITRATE 60 MG TAB.ER.24H 120 MG PO (08:51)
[2024-02-23] MEDS: ENSURE HP 237 ML LIQUID PO ×2 (08:54→21:25)
--- NOTE | 2024-02-23 09:00 | CM.NOTE ---
Rounds made with Dr. Lopez. Dr. Lopez also spoke with family members and Mr. Bauer. Continue with current plan of care.
--- NOTE | 2024-02-23 09:38 | P.PN_ITS ---
Progress Note: Subjective Subjective Interval history: Feels sl beter - cough persisting and to me sounds worse Exam Constitutional Vital Signs, click to edit/add: Last Vital Signs Temp 98.7 F 02/23/24 08:44 Pulse 76 02/23/24 08:44 Resp 16 02/23/24 09:17 BP 162/87 H 02/23/24 08:44 Pulse Ox 94 L 02/23/24 08:44 O2 Del Method Room Air 02/23/24 08:44 Documenting provider has reviewed patient's vital signs: yes Common normals: no apparent distress Chest Common normals: inspection of chest normal Respiratory Common normals: normal respiratory effort and no retractions; not clear to ascultation bilaterally Auscultation: rhonchi (Much more obvious this am) Cardio Common normals: regular rate, regular rhythm and no murmurs GI Common normals: Normal to inspection, nondistended, normoactive bowel sounds present and soft to palpation Extremity Common normals: abnormal to inspection (1+ edema, great for him!) Progress Note: Objective Labs Labs: Short CBC 02/22/24 02/23/24 Range/Units 11:00 05:21 WBC 6.9 5.7 (4.0-11.0) 10^3/uL Hgb 11.6 L 10.3 L (14.0-18.0) g/dL Hct 36.1 L 31.4 L (42.0-54.0) % Plt Count 150 124 L (150-450) 10^3/uL BMP 02/22/24 02/23/24 11:00 05:21 Sodium 141 142 Potassium 4.3 4.1 Chloride 105 109 H Carbon Dioxide 27.0 24.9 BUN 76.0 H* 73.0 H Creatinine 3.11 H 2.60 H Glucose 194 H 101 Calcium 8.3 L 8.1 L Liver Function 02/22/24 02/23/24 Range/Units 11:00 05:21 Total Bilirubin 0.6 0.4 (0.2-1.0) mg/dL AST 50 H 35 (15-37) U/L ALT 87 H 79 H (16-63) U/L Alkaline Phosphatase 91 73 (46-116) U/L Albumin 2.4 L 2.0 L (3.4-5.0) g/dL Progress Note: A&P Assessment and Plan (1) Acute on chronic kidney failure: (2) Diabetes: (3) CHF (congestive heart failure): (4) Dyspnea: Qualifiers: Dyspnea type: dyspnea on exertion Qualified Code(s): R06.09 - Other forms of dyspnea (5) Frequent falls: (6) CKD stage 3 due to type 2 diabetes mellitus: (7) IDDM (insulin dependent diabetes mellitus): (8) Acute combined systolic (congestive) and diastolic (congestive) heart failu re: Plan Admission findings: Uncontrolled hypertension, cough, acute renal failure, elevated BNP secondary to bilateral lower lobe pneumonia likely a complication of [id number] start patient on remdesivir, hold off on steroids due to the diabetes, IV antibiotics. Aerosol treatments. 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 cont with slow hydration Acute renal failure with CKD 3-creatinine over 3 currently. Baseline creatinine of 1.69. Admission creatinine of 3.11, this is 184% above baseline - better today - 153.8% above baseline - maintain slow hydration Moderate protein calorie malnutrition-diet supplement Diabetes mellitus-insulin sliding scale with home medications, up some this am Elevated Liver function tests - Better today - likely due to passive congestion Thrombocytopenia - due to the above - covid - monitor daily Insomnia-continue with home medications Hypertension-continue with home medications may need adjustment as his blood pressure is significant elevated on admission Hypothyroidism-continue with home medications levels are normal Admission status: She was a new COVID-19 but complicated by acute renal failure, his creatinine is 184% above baseline. With his history of chronic combined con gestive heart failure unable to give significant fluid resuscitation quickly. Slow hydration. Medically necessary treatment will span 2 midnights. Inpatient status. ?
[2024-02-23] MEDS: BENZONATATE 100 MG CAPSULE 200 MG PO ×3 (10:01→21:24)
[2024-02-23] MEDS: ASPIRIN 81 MG TABLET.DR PO (10:01)
--- NOTE | 2024-02-23 10:17 | SWNOTE1 ---
LESLEY sent OT notes to Nanette at [facility]. She is having trouble getting precert started due to internet black out. She will let SW know once she is able to start it. LESLEY did call pt's son, Myriam. LESLEY updated him and let him know that LESLEY spoke to Nanette and Nanette will be calling him today to update in regards to the Medicare. Nanette is unsure if Medicare days will start over or if he will only have six days left.
--- NOTE | 2024-02-23 11:26 | PT.DAILY ---
Physical Therapy Daily Note PT Daily Note/Assess Start: 02/23/24 11:18 Freq: Status: Active Protocol: Document 02/23/24 10:10 ADIEL (Rec: 02/23/24 11:26 ADIEL [id number]) Physical Therapy Daily Note/Assessment Time In/Time Out Time In 10:12 Time Out 10:35 Subjective Subjective Patient is up in chair. Reports feeling better today, just tired. L shoulder pain, but does not rate. Therapeutic Exercise Time Therapeutic Exercise Minutes (minutes) 10 Therapeutic Exercise Units 1 Therapeutic Exercise Treatment Therapeutic Exercise Treatment Seated exercises as follows: -HR/TR 2x10 -Marches x10 -LAQ x10 -Hip adductions squeeze 10x5 sec hold -MRE of hip abduction 10x -MRE of HS 10x Therapeutic Activity Time Therapeutic Activity Minutes (minutes) 13 Therapeutic Activity Units 1 Therapeutic Activity Treatment Therapeutic Activity Comments 1st attempt at sit to stand patient unable to complete with assistance. Added chair push-ups 2x5 followed by fwd. trunk flexion arms across chest 2x5, then used those skills to bring together sit to stand transfers. Patient then completes sit to stand transfers x3 with max assist x1 coming into full stand. Patient tolerates each stand approx. 10 seconds before sitting back down. Total Physical Therapy Time Total Therapy Minutes 23 Total Physical Therapy Units 2 Summary Daily Note Summary Patient demonstrates improved ability with transfers today. Progressed with exercises to focus on B LE strength to promote improved transfers and gait ability. Patient continues to demonstrates weakness and required max assist x1 to complete that sit to stand transfer (from lower chair). Patient will benefit from SNF at [place] to continue to work on strengthening, along with safe transfers and gait to return to [facility]. Patient was in chair with call light in reach and all needs met post RX.
[2024-02-23 11:27] LABS: Glucometer 285 mg/dL (74-106)
[2024-02-23] MEDS: HYDRALAZINE HCL 25 MG TABLET PO ×2 (13:09→21:24)
[2024-02-23] MEDS: LACTATED RINGER'S SOLUTION 1,000 ML 50 ML IV (13:52)
--- NOTE | 2024-02-23 15:20 | SWNOTE1 ---
LESLEY spoke to Myriam, pt's son, and pt's other son spoke to [facility] and they are attempting to coordinate pt to go there after rehab stay at [facility]. Pt' son Myriam did ask about covid protocol, LESLEY to reach out to [facility]. [facility] is allowing pt's children only to visit and they have to mask up. LESLEY called and let pt's son know. At this time LESLEY took packet to the floor. LESLEY let Nanette know to call the floor if pt is approved over weekend.
[2024-02-23 16:09] LABS: Glucometer 177 mg/dL (74-106)
[2024-02-23] MEDS: INSULIN ASPART 300 UNIT/3 ML PEN SUBQ ×2 (16:20→22:28)
[2024-02-23 16:38] LABS: Bilirubin Urine NEGATIVE (NEGATIVE); Blood Urine NEGATIVE (NEGATIVE); Clarity Urine CLEAR (CLEAR); Color Urine LT. YELLOW (YELLOW); Glucose Urine UA 100 mg/dL (NEGATIVE); Ketones Urine NEGATIVE (NEGATIVE); Leukocyte Esterase Urine NEGATIVE (NEGATIVE); Nitrite Urine NEGATIVE (NEGATIVE); Protein Urine TRACE mg/dL (NEG/TRACE); Specific Gravity Urine 1.025 (1.005-1.025); Urobilinogen Urine 0.2 EU/dL (0.2-1.0); pH Urine 5.5 (5.0-9.0)
[2024-02-23 17:06] LABS: Bacteria Urine TRACE #/HPF (NONE SEEN); Cast Seen? SEEN #/LPF (NONE SEEN); Crystals Seen? None Seen #/HPF (None Seen); Hyaline Casts Urine RARE; Mucus Urine NONE SEEN (NONE SEEN); RBC Urine 0-2 #/HPF (0-2); Squamous Epithelial Cell Urine RARE #/LPF (NONE/RARE); WBC Urine 0-2 #/HPF (NONE SEEN)
[2024-02-23 17:07] LABS: Urine Culture Indicated ALREADY ORDERED
[2024-02-23] MEDS: AZITHROMYCIN 500 MG in 0.9 % SODIUM CHLORIDE 250 ML 250 MG IV (17:52)
[2024-02-23] MEDS: REMDESIVIR 100 MG in 0.9 % SODIUM CHLORIDE 100 ML 200 MG IV (21:23)
[2024-02-23] MEDS: FERROUS SULFATE 325 MG TABLET PO (21:24)
[2024-02-23] MEDS: ATORVASTATIN CALCIUM 20 MG TABLET PO (21:24)
[2024-02-23] MEDS: CETIRIZINE HCL 10 MG TABLET 20 MG PO (21:24)
[2024-02-23] MEDS: AMITRIPTYLINE HCL 50 MG TABLET PO (21:24)
[2024-02-23 21:40] LABS: Glucometer 196 mg/dL (74-106)
[2024-02-24] VITALS (8 sets, daily range): BP systolic 160; BP diastolic 87; PULSE 66–78; TEMP 36.5; O2SAT 93–97
[2024-02-24] MEDS: IPRATROPIUM/ALBUTEROL SULFATE 3 ML AMPUL.NEB IH ×2 (05:03→11:00)
[2024-02-24] MEDS: HYDRALAZINE HCL 25 MG TABLET PO (05:36)
[2024-02-24] MEDS: LEVOTHYROXINE SODIUM 25 MCG TABLET 50 MCG PO (05:36)
[2024-02-24] MEDS: BENZONATATE 100 MG CAPSULE 200 MG PO (05:36)
[2024-02-24 07:11] LABS: Basophils Percent Auto 0.2 % (0.2-2.0); Eosinophils Percent Auto 0.2 % (0.9-7.0); Hematocrit 32.9 % (42.0-54.0); Hemoglobin 10.8 g/dL (14.0-18.0); Immature Granulocytes Abs Auto 0.02 10^3/uL (0.00-0.03); Immature Granulocytes Pct Auto 0.4 % (0.0-0.5); Lymphocytes Absolute Auto 0.7 10^3/uL (1.2-3.8); Lymphocytes Percent Auto 13.2 % (20.5-60.0); Mean Corpuscular HGB Conc 32.8 g/dL (29.9-35.2); Mean Corpuscular Hemoglobin 32.2 pg (25.9-34.0); Mean Corpuscular Volume 98.2 fL (80.0-94.0); Mean Platelet Volume 10.7 fL (9.5-13.5); Monocytes Absolute Auto 0.7 10^3/uL (0.3-0.8); Monocytes Percent Auto 13.2 % (1.7-12.0); Neutrophils Absolute Auto 3.8 10^3/uL (1.4-6.5); Neutrophils Percent Auto 72.8 % (43.0-75.0); Platelet Count 123 10^3/uL (150-450); Red Blood Count 3.35 10^6/uL (4.70-6.10); Red Cell Distribution Width 14.8 % (11.0-15.0); White Blood Count 5.2 10^3/uL (4.0-11.0)
[2024-02-24 07:47] LABS: Alanine Aminotransferase 78 U/L (16-63); Albumin Globulin Ratio 0.6; Alkaline Phosphatase 76 U/L (46-116); Anion Gap 10.7; Aspartate Amino Transferase 39 U/L (15-37); BUN Creatinine Ratio 32.9; Bilirubin Total 0.5 mg/dL (0.2-1.0); Chloride 110 mmol/L (98-107); Estimated GFR (African America 33 (>=60); Estimated GFR (Non-African Ame 27 (>=60); Globulin 3.2 g/dL; Glucose 119 mg/dL (74-106); Potassium 4.7 mmol/L (3.5-5.1); Sodium 143 mmol/L (136-145); Total Protein 5.2 g/dL (6.4-8.2)
--- NOTE | 2024-02-24 08:08 | PT.DAILY ---
Physical Therapy Daily Note PT Daily Note/Assess Start: 02/23/24 11:18 Freq: Status: Active Protocol: Document 02/24/24 07:54 [id number] (Rec: 02/24/24 08:08 [id number]) Physical Therapy Daily Note/Assessment Time In/Time Out Time In 07:29 Time Out 07:51 Pain In Pain Level 0 Pain Out Pain Level 0 Subjective Subjective Patient agreeable to participating with PT. States he is doing okay today. Bed alarm disengaged. Therapeutic Exercise Time Therapeutic Exercise Minutes (minutes) 15 Therapeutic Exercise Units 1 Therapeutic Exercise Treatment Therapeutic Exercise Treatment Patient performed supine LUIS LE ther ex: ankle pumps, quad sets, hip ADD with pillow, hip ABD, heel slides an SLR, SAQ x 10 reps with CGA. Seated LUIS LE ther ex: HR/TR, LAQ, hip flexion (marching), hip ADD with pillow, resisted hip ABD. Therapeutic Activity Time Therapeutic Activity Minutes (minutes) 7 Therapeutic Activity Units 1 Therapeutic Activity Treatment Bed Mobility Ability Moderate Assist,2 Person Assist Chair Transfer Ability Minimum Assist,Moderate Assist ,2 Person Assist Therapeutic Activity Comments Bed mobility: supine to R side lying to sit with use of hand rail is MAX A x 2. VC's to use R UE to help push up into sitting. Patient able to sit EOB without UE support and no LOB. Transfer: sit to stand to RW MOD A x 1-2. Patient demonstrates slight posterior lean and verbalizes awareness he is, when initially coming into standing, self corrects with VC's. Patient ambulates in shuffling gait ~2 feet to chair at bedside with CGA +2. Patient able to control descent to chair with use of R UE support on chair armrest. Total Physical Therapy Time Total Therapy Minutes 22 Total Physical Therapy Units 2 Summary Daily Note Summary Patient demonstrates improved ability to perform sit to stands. Slow to task. Bed mobility difficult due to functional weakness. Patient would benefit from SNF @ discharge to address functional deficits to return to [facility].
--- NOTE | 2024-02-24 08:15 | P.DS_ITS ---
DS: Providers Provider Date of admission: 02/22/24 18:50 Primary care physician: Yao Lopez MD Admitting clinician: Yao Lopez Consults: 02/22/24 13:40 Consult to Pharmacy Routine Consulting Provider: Reason for consultation: Please Hitchcock me when Med Rec is Updated Has provider been notified: No Occupational Therapy Eval and Treat Routine Reason for consultation: Only if needed for Rehab Has provider been notified: No Physical Therapy Eval and Treat Routine Reason for consultation: Eval and Treat Has provider been notified: No Discharging clinician: Emily Gabirel DS: Diagnosis Discharge Diagnosis (1) Acute on chronic kidney failure: (2) Diabetes: (3) CHF (congestive heart failure): (4) Dyspnea: Qualifiers: Dyspnea type: dyspnea on exertion Qualified Code(s): R06.09 - Other forms of dyspnea (5) Frequent falls: (6) CKD stage 3 due to type 2 diabetes mellitus: (7) IDDM (insulin dependent diabetes mellitus): (8) Acute combined systolic (congestive) and diastolic (congestive) heart failure: DS: Summary Hospital Course Hospital Course: Patient presented to the ER from rehab facility for increasing weakness and cough. Found to have COVID-19 treated with IV Remdesivir. Patient also with elevated creatinine of 3.11 and treated with gentle hydration. Cr at the time of discharge is 2.31. Will hold his Bumex and spironolactone for 3 days and restart. Facility will need to check BMP in 5-7 days to assess renal function. Patient is not requiring any oxygen at the time of discharge. Symptomatic treatment only for Covid 19 with tessalon perles and continue to zithromax. Return to the ER with any worsening signs or symptoms. I have also encouraged him to use his OPEP Status at Discharge Functional status at discharge: uses cane/walker Time Spent with Patient Time attestation: Total time spent providing and/or coordinating discharge services: Time spent: greater than 30 minutes Exam Narrative Exam Narrative: General: Patient is alert, and oriented to person, place and time with normal affect, proper hygiene Skin: multiple ecchymosis over arms and legs Head: atraumatic, acephalic Eyes: PERRLA, no nystagmus present, conjunctiva clear, no scleral icterus Ears: normal gross auditory acuity Heart: Normal rate and rhythm, no murmurs/rubs/gallops Lungs: audible wheezes RLL, with no crackles Abdomen: Normal audible bowel sounds, no distension, No palpable masses, no organomegaly, no rebound/guarding/ or rigidity Musculoskeletal: 1+ swelling bilateral lower extremities Neuro: CN II-X grossly intact Constitutional Vital Signs, click to edit/add: Last Vital Signs Temp 97.7 F 02/24/24 05:11 Pulse 77 02/24/24 08:00 Resp 18 02/24/24 05:11 BP 160/87 H 02/24/24 05:11 Pulse Ox 93 L 02/24/24 05:11 O2 Del Method Room Air 02/24/24 05:11 DS: Data Data Completed and Pending Labs on day of discharge: Labs from last 24 hours 02/24/24 02/23/24 02/23/24 07:00 21:38 16:10 WBC 5.2 RBC 3.35 L Hgb 10.8 L Hct 32.9 L MCV 98.2 H MCH 32.2 MCHC 32.8 RDW 14.8 Plt Count 123 L MPV 10.7 Neut % (Auto) 72.8 Lymph % (Auto) 13.2 L Edwards % (Auto) 13.2 H Eos % (Auto) 0.2 L Baso % (Auto) 0.2 Neut # (Auto) 3.8 Lymph # (Auto) 0.7 L Edwards # (Auto) 0.7 Eos # (Auto) 0.0 Baso # (Auto) 0.0 Abs Immat Gran (auto) 0.02 Imm/Tot Granulo (auto) 0.4 Sodium 143 Potassium 4.7 Chloride 110 H Carbon Dioxide 27.0 Anion Gap 10.7 BUN 76.0 H* Creatinine 2.31 H Est GFR ( Amer) 33 L Est GFR (Non-Af Amer) 27 L BUN/Creatinine Ratio 32.9 Glucose 119 H Calcium 8.0 L Total Bilirubin 0.5 AST 39 H ALT 78 H Alkaline Phosphatase 76 NT-Pro-B Natriuret Pep 2668.0 H* Total Protein 5.2 L Albumin 2.0 L Globulin 3.2 Albumin/Globulin Ratio 0.6 Urine Color Lt. yellow Urine Clarity Clear Urine pH 5.5 Ur Specific [place] 1.025 Urine Protein Trace Urine Glucose (UA) 100 A Urine Ketones Negative Urine Occult Blood Negative Urine Nitrite Negative Urine Bilirubin Negative Urine Urobilinogen 0.2 Ur Leukocyte Esterase Negative Urine RBC 0-2 Urine WBC 0-2 A Ur Squamous Epith Cells Rare Urine Crystals None seen Urine Bacteria Trace A Urine Casts Seen A Hyaline Casts Rare Urine Mucus None seen Urine Yeast Seen A Ur Culture Indicated? Already ordered POC Glucose 196 H 02/23/24 02/23/24 16:07 11:26 WBC RBC Hgb Hct MCV MCH MCHC RDW Plt Count MPV Neut % (Auto) Lymph % (Auto) Edwards % (Auto) Eos % (Auto) Baso % (Auto) Neut # (Auto) Lymph # (Auto) Edwards # (Auto) Eos # (Auto) Baso # (Auto) Abs Immat Gran (auto) Imm/Tot Granulo (auto) Sodium Potassium Chloride Carbon Dioxide Anion Gap BUN Creatinine Est GFR ( Amer) Est GFR (Non-Af Amer) BUN/Creatinine Ratio Glucose Calcium Total Bilirubin AST ALT Alkaline Phosphatase NT-Pro-B Natriuret Pep Total Protein Albumin Globulin Albumin/Globulin Ratio Urine Color Urine Clarity Urine pH Ur Specific [place] Urine Protein Urine Glucose (UA) Urine Ketones Urine Occult Blood Urine Nitrite Urine Bilirubin Urine Urobilinogen Ur Leukocyte Esterase Urine RBC Urine WBC Ur Squamous Epith Cells Urine Crystals Urine Bacteria Urine Casts Hyaline Casts Urine Mucus Urine Yeast Ur Culture Indicated? POC Glucose 177 H 285 H Discharge Plan Discharge Disposition: Xfer [facility] Discharge Medications: New benzonatate 100 mg Capsule 200 mg PO Q8H PRN (Reason: Cough) 3 Days Qty: 6 0RF Continued atorvastatin 20 mg tablet 20 mg PO .QHS ferrous sulfate [FeroSul] 325 mg (65 mg iron) tablet 325 mg PO .QHS levothyroxine 50 mcg tablet 50 mcg PO .qhs aspirin [Adult Aspirin Regimen] 81 mg tablet,delayed release (DR/EC) 81 mg PO DAILY Hold Instructions: Doctor's Order Eliquis 5 mg Tablet 2.5 mg PO BID Qty: 60 0RF Patient Comments: recieves samples from Dr. Lopez's office insulin aspart U-100 [Novolog FlexPen U-100 Insulin] 100 unit/mL (3 mL) Insulin Pen 2 - 14 unit subcut ACHS Qty: 15 0RF amitriptyline 50 mg tablet 50 mg PO BEDTIME carvedilol 25 mg tablet 25 mg PO BID isosorbide mononitrate 60 mg tablet extended release 24 hr 120 mg PO .qd hydralazine 25 mg Tablet 25 mg PO TID Qty: 90 11RF Entresto 97-103 mg tablet 1 tab PO BID Qty: 60 11RF azithromycin [Zithromax] 250 mg tablet See Rx Instructions .ROUTE .COMPLEX Rx Instructions: DAYS 02/20-02/25 For 250 mg dose pack: take 500 mg today (day 1), then 250 mg for 4 days (days 2-5) Levemir FlexPen 100 unit/mL (3 mL) Insulin Pen 38 unit subcut QAM cefdinir 300 mg capsule 600 mg PO DAILY Rx Instructions: END DATE 02/29/24 Held bumetanide 2 mg tablet 2 mg PO .qd Hold Instructions: Resume on 02/27/24. spironolactone 25 mg tablet 12.5 mg PO .qd Hold Instructions: Resume on 02/27/24. Print Language: Lao Forms: Portal Instructions Follow Up Appointments: Facility to Call Dr. Lopez's office Monday for follow up, will need BMP in 7 days Discharge location: To [facility]
[2024-02-24] MEDS: ISOSORBIDE MONONITRATE 60 MG TAB.ER.24H 120 MG PO (08:46)
[2024-02-24] MEDS: APIXABAN 5 MG TABLET 2.5 MG PO (08:46)
[2024-02-24] MEDS: CARVEDILOL 25 MG TABLET PO (08:46)
[2024-02-24] MEDS: SACUBITRIL/VALSARTAN 24 MG-26 MG TABLET 4 TAB PO (08:46)
[2024-02-24] MEDS: ASPIRIN 81 MG TABLET.DR PO (08:46)
[2024-02-24] MEDS: INSULIN DETEMIR 300 UNIT/3 ML INSULN.PEN 38 UNIT SUBQ (08:47)
[2024-02-24 11:42] LABS: Glucometer 282 mg/dL (74-106)
--- NOTE | 2024-02-24 11:55 | PC.NURSE ---
report called to Destinee at [facility]. Informed that pharmacy picking technician is at 2 pm
[2024-02-24] MEDS: INSULIN ASPART 300 UNIT/3 ML PEN SUBQ (12:07)
== END 2024-02-24 14:21 | DRG 177 ==
LOC: ER 12:38 → MS 13:10
PROVIDERS: Admitting Provider Family Medicine; Emergency Provider Emergency Medicine Emergency Medical Services; PCP Family Medicine; Visit Provider Family Medicine
DX: U07.1 COVID-19 (principal); I50.43 Acute on chronic combined systolic (congestive) and diastolic (congestive) heart failure; J12.82 Pneumonia due to coronavirus disease 2019; N17.9 Acute kidney failure, unspecified; I13.0 Hypertensive heart and chronic kidney disease with heart failure and stage 1 through stage 4 chronic kidney disease, or unspecified chronic kidney disease; E44.0 Moderate protein-calorie malnutrition; R79.89 Other specified abnormal findings of blood chemistry; D50.9 Iron deficiency anemia, unspecified; N18.30 Chronic kidney disease, stage 3 unspecified; D69.6 Thrombocytopenia, unspecified; D63.1 Anemia in chronic kidney disease; Z87.891 Personal history of nicotine dependence; E11.22 Type 2 diabetes mellitus with diabetic chronic kidney disease; G47.00 Insomnia, unspecified; E03.9 Hypothyroidism, unspecified; R06.09 Other forms of dyspnea; R29.6 Repeated falls; Z79.4 Long term (current) use of insulin; Z68.32 Body mass index [BMI] 32.0-32.9, adult; Z79.82 Long term (current) use of aspirin; Z79.890 Hormone replacement therapy; Z79.899 Other long term (current) drug therapy
CPT/HCPCS: 36415; 71045; 80053; 81001; 82800; 82948; 83605; 83880; 84484; 85025; 87070; 87086; 93005; 94640; 94667; 94668; 94761; 96365; 96366; 96367; 97110; 97161; 97165; 97530; 99285; J0248; J0456

== ENCOUNTER 2024-03-03 17:03 | Inpatient (IN) | payer MEDICARE, SELFPAY ==
[2024-03-03] VITALS (28 sets, daily range): BP systolic 99–127; BP diastolic 49–77; PULSE 73–98; TEMP 36.6–37.1; O2SAT 91–98; BMI 27.9; BMI 33.0
--- OUTSIDE RECORDS SUMMARY | 2024-03-03 17:06 | XMS_ITS | CCD ---
Author Organization [facility] Care Team Providers Care Crozer Operator Name Role Phone AHMED, ZAYRA Unavailable Unavailable AHMED, ZAYRA Unavailable Unavailable LUCY DERRICK Unavailable Unavailable HAYJAZLYN Unavailable Unavailable [facility] Unavailable Unavailable UNKNOWN, PROVIDER Unavailable Unavailable Derrick [...] MEZA Primary Care Unavailable HOY ., DR MZEA Attending Unavailable HOY ., DR MEZA Consulting [...] Propensity to adverse reactions (disorder) [facility] Repository Medications Current Medications Medication [...] myocardial infarction; 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] Onset: [...] Onset: 11-30-2022 Chronic Other aftercare (2 sources) 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/antip latelets; 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: [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] Onset: 03-08-2018 Episodic Other aftercare (1 source) Other mcfp (current) drug therapy; 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: [OTH FCI CURRENT DRUG THERAPY] Onset: 12-16-2022 Episodic Other aftercare (1 source) retirement (current) use of insulin; 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: [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 CURRENT USE OF INSULIN] Onset: 12-16-2022 Episodic Other aftercare (1 source) 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; 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: [FCI CURRENT USE OF ASPIRIN] Onset: 11-30-2022 Episodic [...] UNSPECIFIED] Onset: 12-16-2022 Chronic Unclassified (1 source) retirement (current) use of oral hypoglycemic drugs; 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: [FCI (CURRENT) USE OF ORAL HYPOGLYCEMIC DRUGS] Onset: [...] Range Facility Office Visiton 07-14-2023 Follow-up visit [id number] Nohelia Bauer Lauren 1940 M Date Provider Department Center 07/14/2023 OREN PEDRO KWASI Borja Family History Problem Relation Age of Onset Coronary artery disease Mother Family Status - Relation Status Age at Mother Level of Service:56785 [facility] OFFICE/OUTPATIENT ESTABLISHED LOW MDM 20-29 MIN Normal [facility] Office Visiton 03-13-2023 Follow-up visit [id number] Nohelia Bauer Lauren 1940 M Date Provider Department Center 03/13/2023 LEATHA GONZALEZ KWASI Valdovinos [facility] Family History Problem Relation Age of Onset Coronary artery disease Mother Family Status - Relation Status Age at Mother Level of Service:07853 [facility] OFFICE/OUTPATIENT ESTABLISHED MOD MDM 30-39 MIN Normal [facility] PSA, FREE AND TOTAL RATIOon 11-24-2022 % Free PSA 33.9 % Normal [facility] Comment on above: Result Comment: The [...] of men. Performed By: #### P SAFREE ####[facility] Ldgfkrysad69[address] [place], [place] [address]DtBebo Diaz Prostate specific Ag [Mass/Vol] 6.2 ng/mL Critically high 0.0-4.0 [facility] Comment on above: Result Comment: Aye ECLIA methodology. .According to the [place] [employer], Serum PSA shoulddecrease and remain [...] malignant disease. Performed By: #### P SAFREE ####[facility] Lknaxyqjwx[address] [place] [address]Dr. Yuki Diaz PSA, Free 2.10 ng/mL Normal N/A [facility] Comment on above: Result Comment: Aye ECLIA methodology. Performed By: #### P SAFREE ####[facility] Ufjqlpizct46[address] [place] [address]Dr. Yuki Diaz CBC AUTO DIFFon 11-23-2022 BASO # 0.0 103/ul Normal 0.0-0.1 [facility] Comment on above: Performed By: #### CBC ####[facility] Glcgquieta[address] [place], [place] [address]Dr. Yuki Diaz Basophils/100 WBC (Bld) 0.3 % Normal 0.2-2.0 [facility] Comment on above: Performed By: #### CBC ####[facility] Froiakhfyq[address] [place], [place] [address]Dr. Yuki Diaz EO # 0.3 103/ul Normal 0.0-0.7 [facility] Comment on above: Performed By: #### CBC ####[facility] Qzdulftqaz314[address] [place], [place] [address]Dr. Yuki Diaz Eosinophils/100 WBC (Bld) 4.7 % Normal 0.9-7.0 [facility] Comment on above: Performed By: #### CBC ####[facility] Ydgzgjoxis[address] [place], [place] [address]Dr. Yuki Diaz Erythrocyte distribution width (RBC) [Ratio] 15.6 % Critically high 11.0-15.0 [facility] Comment on above: Performed By: #### CBC ####[facility] Yeawagwezj[address] [place], [place] [address]Dr. Yuki Diaz Hematocrit (Bld) [Volume fraction] 33.5 % Critically low 42.0-54.0 [facility] Comment on above: Performed By: #### CBC ####[facility] ital Pzgoosgrgv67[address] [place] [address]Dr. Yuki Diaz Hemoglobin (Bld) [Mass/Vol] 10.0 g/dL Critically low 14.0-18.0 [facility] Comment on above: Performed By: #### CBC ####[facility] ital Qffvxnlccz4217 [place] [address]Dr. Yuki Diaz IG # 0.03 10e3/ul Normal 0.00-0.03 [facility] Comment on above: Performed By: #### CBC ####[facility] ital Ftbwfjqecl1317 [place] [address]Dr. Yuki Diaz IG % 0.5 % Normal 0.0-0.5 [facility] Comment on above: Performed By: #### CBC ####[facility] ital Jtkyjrtawu[address] [place] [address]Dr. Monsealyssa Diaz LYMPH # 1.5 103/ul Normal 1.2-3.[address] [facility] Comment on above: Performed By: #### CBC ####[facility] ital Youafxpxks5929 [place] [address]Dr. Yuki Diaz Lymphocytes/100 WBC (Bld) 22.6 % Normal 20.5-60.0 [facility] Comment on above: Performed By: #### CBC ####[facility] Uclmcsvupm[address] [place] [address]Dr. Monsealyssa Diaz MANUAL DIFF REQ NO Normal [facility] Comment on above: Performed By: #### CBC ####[facility] Jxvyexrxmh5[address] [place] [address]Dr. Yuki Diaz MCH (RBC) [Entitic mass] 27.9 pg Normal 25.9-34.[address] [facility] Comment on above: Performed By: #### CBC ####[facility] ital Pqtwubouca37[address] [place] [address]Dr. Yuki Diaz MCHC (RBC) [Mass/Vol] 29.9 g/dL Normal 29.9-35.[address] [facility] Comment on above: Performed By: #### CBC ####[facility] ital Cqaqioqkiw32[address] [place] [address]Dr. Yuki Diaz MCV (RBC) [Entitic vol] 93.6 fL Normal 80.0-94.0 [facility] Comment on above: Performed By: #### CBC ####[facility] ital Khbrmijjmt13[address] [place] [address]Dr. Yuki Diza MONO # 0.8 103/ul Normal 0.3-0.[address] [facility] Comment on above: Performed By: #### CBC ####[facility] ital Fqdgbtmgdv9735 [place] [address]Dr. Yuki Diaz Monocytes/100 WBC (Bld) 12.6 % Critically high 1.7-12.0 [facility] Comment on above: Performed By: #### CBC ####[facility] Wlccshbwdr6[address] [place] [address]Dr. Yuki Diaz NEUT # 3.9 103/ul Normal 1.4-6.5 [facility] Comment on above: Performed By: #### CBC ####[facility] Lvfrtlfwuz37[address] [place] [address]Dr. Yuki Diaz Neutrophils/100 WBC (Bld) 59.3 % Normal 43.0-75.[address] [facility] Comment on above: Performed By: #### CBC ####[facility] Fywumjvduz7[address] [place] [address]Dr. Yuki Diaz Platelet mean volume (Bld) [Entitic vol] 10.1 fL Normal 9.5-13.[address] [facility] Comment on above: Performed By: #### CBC ####[facility] ital Pdavmefftl080[address] [place] [address]Dr. Yuki Diaz PLT 231 103/ul Normal 150-[address] [facility] Comment on above: Performed By: #### CBC ####[facility] Mjcwntlgbl69[address] [place] [address]Dr. Yuki Diaz RBC 3.58 106/ul Critically low 4.70-6.[address] [facility] Comment on above: Performed By: #### CBC ####[facility] Zwhyirartf3508 [place] [address]Dr. Yuki Diaz WBC 6.6 103/ul Normal 4.0-11.0 [facility] Comment on above: Performed By: #### CBC ####[facility] Idmtyorkxr99[address] [place] [address]Dr. Yuki Diaz FREE T3on 11-23-2022 FREE T3 2.20 pg/mlL Normal 2.18-3.98 [facility] Comment on above: Performed By: #### CMP, FT3, TSH, T4, LI PID ####[facility] Acmkpefgbi[address] [place] [address]Dr. Yuki Diaz GLYCOHEMOGLOBIN A1Con 2022 ADA RECOMMENDATION SEE BELOW Normal [facility] Comment on above: Result Comment: ADA RECOMMENDED LIMIT 4. 0 - 6.0 ADA THERAPEUTIC TARGET < 7.0 ACTION SUGGESTED > 7.0 Performed By: #### A 1C ####[facility] Uxtbhqqhvv[address] [place], [place] [address]Dr. Yuki Diaz Glucose [Mass/Vol] 171 mg/dL Normal [facility] Comment on above: Performed By: #### A1C ####[facility] Ktiwqkmhhn32[address] [place] [address]Dr. Yuki Diaz HbA1c (Bld) [Mass fraction] 7.6 % Critically high 4.5-6.2 [facility] Comment on above: Performed By: #### A1C ####[facility] Ckcpdyneyz[address] [place] [address]Dr. Yuki Diaz LIPID PROFILEon 11-23-2022 CHOL-HDL RATIO NORM SEE BELOW Normal [facility] Comment on above: Result Comment: 3.3 - 4.4 LOW RISK 4.4 - 7.1 AVERAGE RISK 7.1 - 11.0 MODERATE RISK >11.0 HIGH RISK Performed By: #### C MP, FT3, TSH, T4, LIPID ####[facility] Rbnaizbivv[address] [place] [address]Dr. Yuki Diaz Cholesterol [Mass/Vol] 91 mg/dL Normal <=[address] [facility] Comment on above: Performed By: #### CMP, FT3, TSH, T4, LI PID ####[facility] Mztcgumoyh[address] [place] [address]Dr. Yuki Diaz Cholesterol in HDL [Mass/Vol] 51 mg/dL Normal 40-[address] [facility] Comment on above: Performed By: #### CMP, FT3, TSH, T4, LI PID ####[facility] Qzjjwtjtmc2435 [place] [address]Dr. Yuki Diaz Cholesterol in LDL [Mass/Vol] 27.2 mg/dL Normal [facility] Comment on above: Performed By: #### CMP, FT3, TSH, T4, LI PID ####[facility] Rpxftesbpp[address] [place], [place] [address]Dr. Yuki Diaz Cholesterol.tota l/Cholesterol in HDL [Mass ratio] 1.8 {ratio} Normal [facility] Comment on above: Performed By: #### CMP, FT3, TSH, T4, LI PID ####[facility] Khrctzotyj[address] [place], [place] [address]Dr. Yuki Diaz HDL NORMAL > or = 60 mg/dl - LO W CARDIOVASCULAR RISK <40 mg/dl - HIGH CARDIOVASCULAR RISK Normal [facility] Comment on above: Performed By: #### CMP, FT3, TSH, T4, LI PID ####[facility] Affdakhbsf[address] [place] [address]Dr. Yuki Diaz LDL CALC NORMAL SEE BELOW Normal [facility] Comment on above: Result Comment: <100 mg/dl OPTIMAL 100 - 129 mg/dl NEAR OR ABOVE OPTIMAL 130 - 159 mg/dl BORDERLINE HIGH 160 - 189 mg/dl HIGH >190 mg/dl VERY HIGH Performed By: #### C MP, FT3, TSH, T4, LIPID ####[facility] Wqpizjihvo[address] [place], [place] [address]Dr. Yuki Diaz Triglyceride [Mass/Vol] 64 mg/dL Normal <=[address] [facility] Comment on above: Performed By: #### CMP, FT3, TSH, T4, LI PID ####[facility] Nswkizvtiq[address] [place], [place] [address]Dr. Yuki Diaz VLDL CALC 12.8 mg/dL Normal [facility] Comment on above: Performed By: #### CMP, FT3, TSH, T4, LI PID ####[facility] Uaitpjpjsa[address] [place], [place] [address]Dr. Yuki Diaz PROF 14(COMP METB)on 023 Albumin [Mass/Vol] 2.9 g/dL Critically low 3.4-5.0 [facility] Comment on above: Performed By: #### CMP, FT3, TSH, T4, LI PID ####[facility] Jajrqnixuh[address] [place], [place] [address]Dr. Yuki Diaz Albumin/Globulin [Mass ratio] 0.7 {ratio} Normal [facility] Comment on above: Performed By: #### CMP, FT3, TSH, T4, LI PID ####[facility] Qktmlooptu13[address] [place], [place] [address]Dr. Yuki Diaz ALP [Catalytic activity/Vol] 95 U/L Normal 46-[address] [facility] Comment on above: Performed By: #### CMP, FT3, TSH, T4, LI PID ####[facility] Dbdvrxwmgl[address] [place], [place] [address]Dr. Yuki Diaz ALT [Catalytic activity/Vol] 15 U/L Critically low 16-[address] [facility] Comment on above: Performed By: #### CMP, FT3, TSH, T4, LI PID ####[facility] Wvowgkcjhx[address] [place], [place] [address]Dr. Yuki Diaz Anion gap [Moles/Vol] 13.2 mmol/L Normal [facility] Comment on above: Performed By: #### CMP, FT3, TSH, T4, LI PID ####[facility] Vjjsnoyzvv[address] [place], [place] [address]Dr. Yuki Diaz AST [Catalytic activity/Vol] 10 U/L Critically low 15-[address] [facility] Comment on above: Performed By: #### CMP, FT3, TSH, T4, LI PID ####[facility] Svlfxlwzak[address] [place], [place] [address]Dr. Yuki Diaz Bilirubin [Mass/Vol] 0.7 mg/dL Normal 0.2-1.[address] [facility] Comment on above: Performed By: #### CMP, FT3, TSH, T4, LI PID ####[facility] Cgypdqlhlh[address] [place], [place] [address]Dr. Yuki Diaz Calcium [Mass/Vol] 8.9 mg/dL Normal 8.5-10.[address] [facility] Comment on above: Performed By: #### CMP, FT3, TSH, T4, LI PID ####[facility] Tcjbdqagha[address] [place], [place] [address]Dr. Yuki Diaz Chloride [Moles/Vol] 105 mmol/L Normal 98-[address] [facility] Comment on above: Performed By: #### CMP, FT3, TSH, T4, LI PID ####[facility] Wvstbpserw65[address] [place], [place] [address]Dr. Yuki Diaz CO2 [Moles/Vol] 30.0 mmol/L Normal 21.0-32.[address] [facility] Comment on above: Performed By: #### CMP, FT3, TSH, T4, LI PID ####[facility] Oukqxxrwck[address] [place], [place] [address]Dr. Yuki Diaz Creatinine [Mass/Vol] 2.36 mg/dL Critically high 0.70-1.[address] [facility] Comment on above: Performed By: #### CMP, FT3, TSH, T4, LI PID ####[facility] Hohbhdohoa[address] [place], [place] [address]Dr. Yuki Diaz EGFR-AF UGANDAN 32 mL/min/1.73m2 Critically low >=[address] [facility] Comment on above: Performed By: #### CMP, FT3, TSH, T4, LI PID ####[facility] Ddeysmmijy[address] [place], [place] [address]Dr. Yuki Diaz EGFR-NON AF U[place]ANDAN 27 mL/min/1.73m2 Critically low >=[address] [facility] Comment on above: Performed By: #### CMP, FT3, TSH, T4, LI PID ####[facility] Meyjnfxhyd[address] [place], [place] [address]Dr. Yuki Diaz Globulin (S) [Mass/Vol] 4.2 g/dL Normal [facility] Comment on above: Performed By: #### CMP, FT3, TSH, T4, LI PID ####[facility] Hginblfdgn87[address] [place] [address]Dr. Yuki Diaz Glucose [Mass/Vol] 96 mg/dL Normal 74-[address] [facility] Comment on above: Performed By: #### CMP, FT3, TSH, T4, LI PID ####[facility] Qrfxckconp[address] [place], [place] [address]Dr. Yuki Diaz Potassium [Moles/Vol] 4.2 mmol/L Normal 3.5-5.[address] [facility] Comment on above: Performed By: #### CMP, FT3, TSH, T4, LI PID ####[facility] Buqdelicwy[address] [place], [place] [address]Dr. Yuki Diaz Protein [Mass/Vol] 7.1 g/dL Normal 6.4-8.[address] [facility] Comment on above: Performed By: #### CMP, FT3, TSH, T4, LI PID ####[facility] Fzztqvgewr[address] [place], [place] [address]Dr. Yuki Diaz Sodium [Moles/Vol] 144 mmol/L Normal 136-[address] [facility] Comment on above: Performed By: #### CMP, FT3, TSH, T4, LI PID ####[facility] Euvwxhrads[address] [place], [place] [address]Dr. Yuki Diaz Urea nitrogen [Mass/Vol] 28.0 mg/dL Critically high 7.0-18.[address] [facility] Comment on above: Performed By: #### CMP, FT3, TSH, T4, LI PID ####[facility] Bsixpwirfv[address] [place], [place] [address]Dr. Yuki Diaz Urea nitrogen/Creatin ine [Mass ratio] 11.9 mg/mg Normal [facility] Comment on above: Performed By: #### CMP, FT3, TSH, T4, LI PID ####[facility] Onqszjocis[address] [place], [place] [address]Dr. Yuki Diaz T4on 11-23-2022 T4 [Mass/Vol] 7.70 ug/dL Normal 4.50-12.[address] [facility] Comment on above: Performed By: #### CMP, FT3, TSH, T4, LI PID ####[facility] Bcpiifesrh60[address] [place] [address]Dr. Yuki Diaz TSHon 11-23-2022 TSH 2.577 uIU/mL Normal 0.358-3.[address] [facility] Comment on above: Performed By: #### CMP, FT3, TSH, T4, LI PID ####[facility] Dptrkrrzvl[address] [place], [place] [address]Dr. Yuki Diaz VITAMIN D 25 OHon 11-23-2022 VIT D 25-OH 35.8 ng/mL Normal [facility] Comment on above: Performed By: #### VITAD, PSASC ####[facility] Mfotwiouli[address] [place], [place] [address]Dr. Yuki Diaz VIT D RANGES SEE BELOW Normal [facility] Comment on above: Result Comment: <20 ng/mL Vit D deficien t 20 - <30 ng/mL Vit D insufficient 30 - 100 ng/mL Vit D sufficient >100 ng/mL Potential Toxicity Performed By: #### V ITAD, PSASC ####[facility] [address]npiislhim06[address] [place], [place] [address]Dr. Yuki Diaz BNPon 10-27-2022 Natriuretic peptide B (Bld) [Mass/Vol] 6821.0 pg/mL Critically high <=1,800.[address] [facility] Comment on above: Performed By: #### CMP, BNP ####[facility] Eojgjfuswx[address] [place], [place] [address]Dr. Yuki Diaz CBC W MANUAL DIFFon 10-28-19 23 ACANTHOCYTES 1+ Normal [facility] Comment on above: Performed By: #### CBCMAN ####[facility] Vrlbyhfpax[address] [place], [place] [address]Dr. Yuki Diaz ATYPICAL LYMPH # Normal [facility] Comment on above: Performed By: #### CBCMAN ####[facility] ostal Uyeauqqojy[address] [place], [place] [address]Dr. Yuki Diaz ATYPICAL LYMPH % Normal [facility] Comment on above: Performed By: #### CBCMAN ####[facility] ospital Rvksehdpkt85[address] [place] [address]Dr. Yuki Diaz BAND # 0.0 103/ul Normal 0.0-0.[address] [facility] Comment on above: Performed By: #### CBCMAN ####[facility] ospital Cwugtpfptn5[address] [place] [address]Dr. Yialyssa Diaz BAND % 0 % Normal 0-[address] [facility] Comment on above: Performed By: #### CBCMAN ####[facility] ospital Maijwodgjv0612 [place] [address]Dr. Yuki Diaz BASOM # 0.00 103/ul Normal 0.00-0.[address] [facility] Comment on above: Performed By: #### CBCMAN ####[facility] ospital Yjqurlidys[address] [place] [address]Dr. Yuki Diaz BASOM % 0.0 % Critically low 0.2-2.[address] [facility] Comment on above: Performed By: #### CBCMAN ####[facility] ospital Adqppzasuo5[address] [place] [address]Dr. Yuki Diaz BLAST # Normal [facility] Comment on above: Performed By: #### CBCMAN ####[facility] ospital Dweugpfxmp[address] [place] [address]Dr. Yuki Diaz BLAST % Normal [facility] Comment on above: Performed By: #### CBCMAN ####[facility] ospital Mrpphnoezi6752 [place] [address]Dr. Yuki Diaz CORRECTED WBC Normal 4.0-11.[address] [facility] Comment on above: Performed By: #### CBCMAN ####[facility] ospital Nrahkugexe9[address] [place] [address]Dr. Yuki Diaz EOS # 0.00 103/ul Normal 0.00-0.[address] [facility] Comment on above: Performed By: #### CBCMAN ####[facility] ospital Yqmvvrfmns15[address] [place], [place] [address]Xp. Yuki Diaz EOS% 0.0 % Critically low 0.9-7.[address] [facility] Comment on above: Performed By: #### CBCCHANTE ####[facility] ospital Lonzwudlmj79[address] [place], [place] [address]Nj. Yuki Diaz HCT 27.5 % Critically low 42.0-54.[address] [facility] Comment on above: Performed By: #### CBCCHANTE ####[facility] ospital Crssmxyvbb8589 [place], [place] [address]Zf. Yuki Diaz HGB 8.7 g/dl Critically low 14.0-18.[address] [facility] Comment on above: Performed By: #### CBCCHANTE ####[facility] ospital Xgkzehpudl1534 [place] [address]Dr. Yuki Diaz LYMPHM # 0.81 103/ul Critically low 1.20-3.80 [facility] Comment on above: Performed By: #### CBCCHANTE ####[facility] ospital Zxckcemvhh0761 [place], [place] [address]Hv. Yuki Diaz LYMPHM% 8.0 % Critically low 20.5-60.0 [facility] Comment on above: Performed By: #### CBCCHANTE ####[facility] ospital Mgvtnqpebl5080 [place] [address]Dr. Yuki Diaz MCH 28.2 pg Normal 25.9-34.[address] [facility] Comment on above: Performed By: #### CBCCHANTE ####[facility] ospital Apiuqwyuln3[address] [place], [place] [address]Jk. Yuki Diaz MCHC 31.6 g/dl Normal 29.9-35.[address] [facility] Comment on above: Performed By: #### CBCCHANTE ####[facility] ospital Noscvwsbbd7405 [place], [place] [address]Cb. Yuki Diaz MCV 89.0 fL Normal 80.0-94.[address] [facility] Comment on above: Performed By: #### CBCCHANTE ####[facility] ospital Wrfieqiate6676 [place] [address]Dr. Yuki Diaz METAMYELOCYTE # Normal [facility] Comment on above: Performed By: #### CBCMAN ####[facility] ospital Fcndjysnor1644 [place] [address]Dr. Yuki Diaz METAMYELOCYTE % Normal [facility] Comment on above: Performed By: #### CBCCHANTE ####[facility] ospital Fsjvewweea0433 [place] [address]Dr. Yuki Diaz MONOM# 0.40 103/ul Normal 0.30-0.80 [facility] Comment on above: Performed By: #### CBCCHANTE ####[facility] ospital Sqfbizctgu4138 [place] [address]Dr. Yuki Diaz MONOM% 4.0 % Normal 1.7-12.0 [facility] Comment on above: Performed By: #### CBCCHANTE ####[facility] ospital Jnkemfarkj1340 [place] [address]Dr. Yuki Diaz MPV 10.4 fL Normal 9.5-13.5 [facility] Comment on above: Performed By: #### CBCCHANTE ####[facility] ospital Fdsrliulfm2558 [place] [address]Dr. Yuki Diaz MYELOCYTE # Normal [facility] Comment on above: Performed By: #### CBCCHANTE ####[facility] ospital Bciliyokdd[address] [place] [address]Dr. Yuki Diaz MYELOCYTE % Normal [facility] Comment on above: Performed By: #### CBCCHANTE ####[facility] ospital Rrtwaccwod9744 [place] [address]Dr. Yuki Diaz NRBC Normal [facility] Comment on above: Performed By: #### CBCMAN ####[facility] ospital Jiypjxthha6348 [place] [address]Dr. Yuki Diaz PLT 237 103/ul Normal 150-[address] [facility] Comment on above: Performed By: #### CBCMAN ####[facility] ospital Zuuidtcbzi3315 [place], [place] [address]Qk. Yuki Diaz RBC 3.09 106/ul Critically low 4.70-6.10 [facility] Comment on above: Performed By: #### CBCMAN ####[facility] ospital Fildyajpbf3226 [place] [address]Dr. Yuki Diaz RDW 14.7 % Normal 11.0-15.0 [facility] Comment on above: Performed By: #### CBCMAN ####[facility] ospital Jhctosiiuy6353 [place] [address]Dr. Yuki Diaz SEG # 8.89 103/ul Critically high 1.40-6.50 [facility] Comment on above: Performed By: #### CBCMAN ####[facility] ospital Yohmdykqpa8630 [place] [address]Dr. Yuki Diaz SEG % 88.0 % Critically high 43.0-75.0 [facility] Comment on above: Performed By: #### CBCMAN ####[facility] ospital Nmhpbszqhh0[address] [place] [id number]. Yuki Diaz WBC 10.1 103/ul Normal 4.0-11.0 [facility] Comment on above: Performed By: #### CBCMAN ####[facility] ospital Dueazendoi9551 [place] [id number]. Yuki Diaz POINT OF CARE GLUCOSEon 10-06 Glucose [Mass/Vol] 225 mg/dL Critically high 74-[address] [facility] Comment on above: Performed By: #### POCGLUC ####[facility] Vzkgcuxubs1193 [place] [id number]. Yuki Diaz Glucose [Mass/Vol] 214 mg/dL Critically high 74-106 [facility] Comment on above: Performed By: #### POCGLUC ####[facility] Mabsjnwzuk8435 [place] [id number]. Yuki Diaz PRBC LEUKOREDUCEDon 10-28-19 23 PRBC LEUKOREDUCED Normal [facility] Comment on above: Performed By: #### PRBC ####[facility] Deumiwdejp2383 [place] [address]Dr. Yuki Diaz PROF 14(COMP METB)on 023 Albumin [Mass/Vol] 1.8 g/dL Critically low 3.4-5.0 [facility] Comment on above: Performed By: #### CMP, BNP ####[facility] Rycynurlua[address] [place] [address]Dr. Yuki Diaz Albumin/Globulin [Mass ratio] 0.5 {ratio} Normal [facility] Comment on above: Performed By: #### CMP, BNP ####[facility] Mauyxjlbuw[address] [place], [place] [address]Dr. Yuki Diaz ALP [Catalytic activity/Vol] 66 U/L Normal 46-116 [facility] Comment on above: Performed By: #### CMP, BNP ####[facility] Igkexxkbkb915[address] [place], [place] [address]Dr. Yuki Diaz ALT [Catalytic activity/Vol] 13 U/L Critically low 16-[address] [facility] Comment on above: Performed By: #### CMP, BNP ####[facility] Qztovijqpf75[address] [place], [place] [address]Dr. Yuki Diaz Anion gap [Moles/Vol] 11.8 mmol/L Normal [facility] Comment on above: Performed By: #### CMP, BNP ####[facility] Aahzawpisn17[address] [place], [place] [address]Dr. Yuki Diaz AST [Catalytic activity/Vol] 14 U/L Critically low 15-[address] [facility] Comment on above: Performed By: #### CMP, BNP ####[facility] Eskfjzfawf[address] [place], [place] [address]Dr. Yuki Diaz Bilirubin [Mass/Vol] 0.4 mg/dL Normal 0.2-1.[address] [facility] Comment on above: Performed By: #### CMP, BNP ####[facility] Kzpjnpebpl[address] [place], [place] [address]Dr. Yuki Diaz Calcium [Mass/Vol] 8.2 mg/dL Critically low 8.5-10.[address] [facility] Comment on above: Performed By: #### CMP, BNP ####[facility] Cgafekytnb4244 [place] [address]Dr. Yuki Diaz Chloride [Moles/Vol] 103 mmol/L Normal 98-[address] [facility] Comment on above: Performed By: #### CMP, BNP ####[facility] Lgfubkedpd99[address] [place], [place] [address]Dr. Yuki Diaz CO2 [Moles/Vol] 26.7 mmol/L Normal 21.0-32.[address] [facility] Comment on above: Performed By: #### CMP, BNP ####[facility] Sgdihmqpyo8[address] [place], [place] [address]Dr. Yuki Diaz Creatinine [Mass/Vol] 2.62 mg/dL Critically high 0.70-1.[address] [facility] Comment on above: Performed By: #### CMP, BNP ####[facility] Xoavneaqsy027[address] [place], [place] [address]Dr. Yuki Joe EGFR-AF UGANDAN 29 mL/min/1.73m2 Critically low >=[address] [facility] Comment on above: Performed By: #### CMP, BNP ####[facility] Mzmkjxyzwi17[address] [place], [place] [address]Dr. Yuki Diaz EGFR-NON AF UGANDAN 24 mL/min/1.73m2 Critically low >=[address] [facility] Comment on above: Performed By: #### CMP, BNP ####[facility] Xorrefogur[address] [place], [place] [address]Dr. Yuki Diaz Globulin (S) [Mass/Vol] 3.9 g/dL Normal [facility] Comment on above: Performed By: #### CMP, BNP ####[facility] Kolxttytaq11[address] [place], [place] [address]Dr. Yuki Joe Glucose [Mass/Vol] 209 mg/dL Critically high 74-[address] [facility] Comment on above: Performed By: #### CMP, BNP ####[facility] Mbbhbzaply[address] [place], [place] [address]Dr. Yuki Diaz Potassium [Moles/Vol] 4.5 mmol/L Normal 3.5-5.[address] [facility] Comment on above: Performed By: #### CMP, BNP ####[facility] Qygqtlyrlu7424 [place] [address]Dr. Yuki Diaz Protein [Mass/Vol] 5.7 g/dL Critically low 6.4-8.[address] [facility] Comment on above: Performed By: #### CMP, BNP ####[facility] Uqzhcsnvnl24[address] [place], [place] [address]Dr. Yuki Diaz Sodium [Moles/Vol] 137 mmol/L Normal 136-[address] [facility] Comment on above: Performed By: #### CMP, BNP ####[facility] Qncgthemgb826[address] [place], [place] [address]Dr. Yuki Diaz Urea nitrogen [Mass/Vol] 67.0 mg/dL Critically high 7.0-18.0 [facility] Comment on above: Performed By: #### CMP, BNP ####[facility] Ujknteyeme32[address] [place], [place] [address]Dr. Yuki Diaz Urea nitrogen/Creatin ine [Mass ratio] 25.6 mg/mg Normal [facility] Comment on above: Performed By: #### CMP, BNP ####[facility] Jvmacbvcjz9[address] [place], [place] [address]Dr. Yuki Diaz BNPon 10-26-2022 Natriuretic peptide B (Bld) [Mass/Vol] 3539.0 pg/mL Critically high <=1,800.0 [facility] Comment on above: Performed By: #### CMP, BNP ####[facility] Enugabvzoq[address] [place], [place] [address]Dr. Yuki Diaz CBC W MANUAL DIFFon 10-27-19 23 ATYPICAL LYMPH # Normal [facility] Comment on above: Performed By: #### CBCMAN ####[facility] Ypghqcumpl15[address] [place], [place] [address]Dr. Yuki Diaz ATYPICAL LYMPH % Normal [facility] Comment on above: Performed By: #### CBCMAN ####[facility] ospital Jdqfoldmcj468[address] [place], [place] [address]Dr. Yilan Diaz BAND # 0.0 103/ul Normal 0.0-0.[address] [facility] Comment on above: Performed By: #### CBCMAN ####[facility] ospital Mhtlxuvrhb88[address] [place] [address]Dr. Yuki Diaz BAND % 0 % Normal 0-[address] [facility] Comment on above: Performed By: #### CBCMAN ####[facility] ospital Sokcinadsk[address] [place] [address]Dr. Yuki Diaz BASOM # 0.00 103/ul Normal 0.00-0.[address] [facility] Comment on above: Performed By: #### CBCMAN ####[facility] ospital Bbxfohkejp9813 [place] [address]Dr. Yuki Diaz BASOM % 0.0 % Critically low 0.2-2.[address] [facility] Comment on above: Performed By: #### CBCMAN ####[facility] ospital Cnwvjhpovh0732 [place] [address]Dr. Yuki Diaz BLAST # Normal [facility] Comment on above: Performed By: #### CBCMAN ####[facility] ospital Pqtuxuvfdv9436 [place] [address]Dr. Yuki Diaz BLAST % Normal [facility] Comment on above: Performed By: #### CBCMAN ####[facility] ospital Focswcdiwg7716 [place] [address]Dr. Yuki Diaz CORRECTED WBC Normal 4.0-11.[address] [facility] Comment on above: Performed By: #### CBCMAN ####[facility] ospital Losncprkeh1158 [place] [address]Dr. Yuki Diaz EOS # 0.00 103/ul Normal 0.00-0.[address] [facility] Comment on above: Performed By: #### CBCMAN ####[facility] ospital Jdetpstuak6322 [place] [address]Dr. Yuki Diaz EOS% 0.0 % Critically low 0.9-7.[address] [facility] Comment on above: Performed By: #### CBCMAN ####[facility] ospital Vxnosogatm2591 [place] [id number]. Yuki Diaz HCT 28.9 % Critically low 42.0-54.[address] [facility] Comment on above: Performed By: #### CBCCHANTE ####[facility] ospital Nkmntjpyfs9513 [place] [address]Dr. Yuki Diaz HGB 9.1 g/dl Critically low 14.0-18.[address] [facility] Comment on above: Performed By: #### CBCCHANTE ####[facility] ospital Cwjdfuwgqt5834 [place] [id number]. Yuki Diaz LYMPHM # 0.37 103/ul Critically low 1.20-3.80 [facility] Comment on above: Performed By: #### CBCCHANTE ####[facility] ospital Gtmfpfijmo6002 [place] [id number]. Yuki Diaz LYMPHM% 3.0 % Critically low 20.5-60.[address] [facility] Comment on above: Performed By: #### CBCCHANTE ####[facility] ospital Uyvvaxjaem[address] [place] [id number]. Yuki Diaz MCH 28.4 pg Normal 25.9-34.[address] [facility] Comment on above: Performed By: #### CBCCHANTE ####[facility] ospital Obnzgajelb8912 [place] [id number]. Yuki Diaz MCHC 31.5 g/dl Normal 29.9-35.[address] [facility] Comment on above: Performed By: #### CBCCHANTE ####[facility] ospital Fmtzcvgzkq1187 [place] [id number]. Yuki Diaz MCV 90.3 fL Normal 80.0-94.[address] [facility] Comment on above: Performed By: #### CBCCHANTE ####[facility] ospital Ukhwqkgzhs9423 [place] [id number]. Yuki Diaz METAMYELOCYTE # Normal [facility] Comment on above: Performed By: #### CBCCHANTE ####[facility] ospital Gevzcswcvy2557 [place] [address]Dr. Yuki Diaz METAMYELOCYTE % Normal [facility] Comment on above: Performed By: #### CBCCHANTE ####[facility] ospital Rgiiqizrsw9435 [place] [address]Dr. Yuki Diaz MONOM# 0.24 103/ul Critically low 0.30-0.80 [facility] Comment on above: Performed By: #### CBCCHANTE ####[facility] ospital Lqdlssxoxj4845 [place] [address]Dr. Yuki Diaz MONOM% 2.0 % Normal 1.7-12.[address] [facility] Comment on above: Performed By: #### CBCCHANTE ####[facility] ospital Ypktunndky1329 [place] [address]Dr. Yuki Diaz MPV 10.3 fL Normal 9.5-13.5 [facility] Comment on above: Performed By: #### CBCCHANTE ####[facility] ospital Utrotbeeof35[address] [place] [address]Dr. Yuki Diaz MYELOCYTE # Normal [facility] Comment on above: Performed By: #### CBCCHANTE ####[facility] ospital Douyvetyjr0285 [place] [address]Dr. Yuki Diaz MYELOCYTE % Normal [facility] Comment on above: Performed By: #### CBCCHANTE ####[facility] ospital Lvucwjuaqw8705 [place] [address]Dr. Yuki Diaz NRBC Normal [facility] Comment on above: Performed By: #### CBCCHANTE ####[facility] ospital Asuhqpsgkd7644 [place] [address]Dr. Yuki Diaz PLT 215 103/ul Normal 150-[address] [facility] Comment on above: Performed By: #### CBCCHANTE ####[facility] ospital Bagumbtqkh8796 [place] [address]Dr. Yuki Diaz RBC 3.20 106/ul Critically low 4.70-6.[address] [facility] Comment on above: Performed By: #### CBCCHANTE ####[facility] Jwgjrocpnp1376 [place], [place] [address]Hs. Yuki Diaz RDW 14.7 % Normal 11.0-15.[address] [facility] Comment on above: Performed By: #### CBCMAN ####[facility] Fxiehuquwd9019 [place], [place] [address]Sw. Yuki Diaz SEG # 11.59 103/ul Critically high 1.40-6.50 [facility] Comment on above: Performed By: #### CBCMAN ####[facility] Prrdsykmjy5982 [place] [id number]. Yuki Diaz SEG % 95.0 % Critically high 43.0-75.[address] [facility] Comment on above: Performed By: #### CBCMAN ####[facility] Cfecvvukbq4254 [place] [id number]. Yuki Diaz WBC 12.2 103/ul Critically high 4.0-11.[address] [facility] Comment on above: Performed By: #### CBCMAN ####[facility] [place] Xiwdvqvnaj2264 [place] [id number]. Yuki Diaz POINT OF CARE GLUCOSEon 10-06 Glucose [Mass/Vol] 292 mg/dL Critically high 74-106 [facility] Comment on above: Performed By: #### POCGLUC ####[facility] Tgqisqcawx9952 [place] [id number]. Yuki Diaz Glucose [Mass/Vol] 194 mg/dL Critically high 74-[address] [facility] Comment on above: Performed By: #### POCGLUC ####[facility] Agydivhhmu5277 [place] [id number]. Yuki Diaz Glucose [Mass/Vol] 280 mg/dL Critically high 74-[address] [facility] Comment on above: Performed By: #### POCGLUC ####[facility] Mzkibnolec7620 [place] [id number]. Yuki Diaz Glucose [Mass/Vol] 212 mg/dL Critically high 74-[address] [facility] Comment on above: Performed By: #### POCGLUC ####[facility] Gwnxclvbcq7963 [place] [address]Dr. Yuki Diaz Glucose [Mass/Vol] 148 mg/dL Critically high 74-106 [facility] Comment on above: Performed By: #### POCGLUC ####[facility] Ptmorvdjnj49[address] [place], [place] [address]Dr. Yuki Diaz PRBC LEUKOREDUCEDon 10-27-19 23 PRBC LEUKOREDUCED Normal [facility] Comment on above: Performed By: #### PRBC ####[facility] pital Dsqpxebvhe3392 [place] [address]Dr. Yuki Diaz PROF 14(COMP METB)on 023 Albumin [Mass/Vol] 2.0 g/dL Critically low 3.4-5.0 [facility] Comment on above: Performed By: #### CMP, BNP ####[facility] Fkweeenuby[address] [place], [place] [address]Dr. Yuki Diaz Albumin/Globulin [Mass ratio] 0.5 {ratio} Normal [facility] Comment on above: Performed By: #### CMP, BNP ####[facility] Szsimlayar437[address] [place], [place] [address]Dr. Yuki Diaz ALP [Catalytic activity/Vol] 75 U/L Normal 46-116 [facility] Comment on above: Performed By: #### CMP, BNP ####[facility] Lzpwfnakks396[address] [place], [place] [address]Dr. Yuki Diaz ALT [Catalytic activity/Vol] 10 U/L Critically low 16-[address] [facility] Comment on above: Performed By: #### CMP, BNP ####[facility] Bqryznevvj894[address] [place], [place] [address]Dr. Yuki Diaz Anion gap [Moles/Vol] 13.9 mmol/L Normal [facility] Comment on above: Performed By: #### CMP, BNP ####[facility] Rcxnbohvco[address] [place], [place] [address]Dr. Yuki Diaz AST [Catalytic activity/Vol] 13 U/L Critically low 15-37 [facility] Comment on above: Performed By: #### CMP, BNP ####[facility] Pnfjoucwjf525[address] [place], [place] [address]Dr. Yuki Diaz Bilirubin [Mass/Vol] 0.7 mg/dL Normal 0.2-1.[address] [facility] Comment on above: Performed By: #### CMP, BNP ####[facility] Ccsoixokaw54[address] [place], [place] [address]Dr. Yuki Diaz Calcium [Mass/Vol] 8.5 mg/dL Normal 8.5-10.[address] [facility] Comment on above: Performed By: #### CMP, BNP ####[facility] Yathkvlder84[address] [place], [place] [address]Dr. Yuki Diaz Chloride [Moles/Vol] 103 mmol/L Normal 98-[address] [facility] Comment on above: Performed By: #### CMP, BNP ####[facility] Jdiqvhaodk64[address] [place], [place] [address]Dr. Yuki Diaz CO2 [Moles/Vol] 25.8 mmol/L Normal 21.0-32.[address] [facility] Comment on above: Performed By: #### CMP, BNP ####[facility] Dfouitelje14[address] [place], [place] [address]Dr. Yuki Diaz Creatinine [Mass/Vol] 2.87 mg/dL Critically high 0.70-1.[address] [facility] Comment on above: Performed By: #### CMP, BNP ####[facility] Cdtegvbbub446[address] [place], [place] [address]Dr. Yuki Diaz EGFR-AF UGANDAN 26 mL/min/1.73m2 Critically low >=[address] [facility] Comment on above: Performed By: #### CMP, BNP ####[facility] Ltewhiyjyd49[address] [place], [place] [address]Dr. Yuki Diaz EGFR-NON AF UGANDAN 21 mL/min/1.73m2 Critically low >=[address] [facility] Comment on above: Performed By: #### CMP, BNP ####[facility] Ucnmdwtdrs12[address] [place], [place] [address]Dr. Yuki Diaz Globulin (S) [Mass/Vol] 4.0 g/dL Normal [facility] Comment on above: Performed By: #### CMP, BNP ####[facility] Yzimkmzpmr6168 [place] [address]Dr. Yuki Diaz Glucose [Mass/Vol] 209 mg/dL Critically high 74-[address] [facility] Comment on above: Performed By: #### CMP, BNP ####[facility] Nqllivxied5357 [place] [address]Dr. Yuki Diaz Potassium [Moles/Vol] 4.7 mmol/L Normal 3.5-5.[address] [facility] Comment on above: Performed By: #### CMP, BNP ####[facility] Rxbssysehx[address] [place], [place] [address]Dr. Yuki Diaz Protein [Mass/Vol] 6.0 g/dL Critically low 6.4-8.[address] [facility] Comment on above: Performed By: #### CMP, BNP ####[facility] Rumabxxkkn29[address] [place], [place] [address]Dr. Yuki Diaz Sodium [Moles/Vol] 138 mmol/L Normal 136-[address] [facility] Comment on above: Performed By: #### CMP, BNP ####[facility] Isivlbutcq455[address] [place], [place] [address]Dr. Yuki Diaz Urea nitrogen [Mass/Vol] 58.0 mg/dL Critically high 7.0-18.0 [facility] Comment on above: Performed By: #### CMP, BNP ####[facility] Tesxollant[address] [place], [place] [address]Dr. Yuki Diaz Urea nitrogen/Creatin ine [Mass ratio] 20.2 mg/mg Normal [facility] Comment on above: Performed By: #### CMP, BNP ####[facility] Jlwcffydub[address] [place], [place] [address]Dr. Yuki Diaz XR KNEE LT 4V or >on 023 XR KNEE LT 4V or > Normal [facility] CBC AUTO DIFFon 10-25-2022 BASO # 0.0 103/ul Normal 0.0-0.[address] [facility] Comment on above: Performed By: #### CBC ####[facility] Juabypuruz2941 [place] [address]Dr. Yuki Diaz Basophils/100 WBC (Bld) 0.0 % Critically low 0.2-2.[address] [facility] Comment on above: Performed By: #### CBC ####[facility] Mljejzvyij707[address] [place], [place] [address]Dr. Yuki Diaz EO # 0.0 103/ul Normal 0.0-0.[address] [facility] Comment on above: Performed By: #### CBC ####[facility] Tbymofusim[address] [place], [place] [address]Dr. Yuki Diaz Eosinophils/100 WBC (Bld) 0.0 % Critically low 0.9-7.[address] [facility] Comment on above: Performed By: #### CBC ####[facility] Usnghaybdp411[address] [place], [place] [address]Dr. Yuki Diaz Erythrocyte distribution width (RBC) [Ratio] 14.7 % Normal 11.0-15.[address] [facility] Comment on above: Performed By: #### CBC ####[facility] Dwbmtugjvo67[address] [place], [place] [address]Dr. Yuki Diaz Hematocrit (Bld) [Volume fraction] 30.9 % Critically low 42.0-54.[address] [facility] Comment on above: Performed By: #### CBC ####[facility] Qujweulnrm01[address] [place], [place] [address]Dr. Yuki Diaz Hemoglobin (Bld) [Mass/Vol] 9.6 g/dL Critically low 14.0-18.[address] [facility] Comment on above: Result Comment: pt. rcvd. blood Performed By: #### C BC ####[facility] Aycvymydwn[address] [place], [place] [address]Dr. Yuki Diaz IG # 0.06 10e3/ul Critically high 0.00-0.[address] [facility] Comment on above: Performed By: #### CBC ####[facility] Yzflgtkbet607[address] [place], [place] [address]Dr. Monsealyssa Diaz IG % 0.5 % Normal 0.0-0.[address] [facility] Comment on above: Performed By: #### CBC ####[facility] ital Jfyrucxqll3726 [place] [address]Dr. Yuki Diaz LYMPH # 0.4 103/ul Critically low 1.2-3.8 [facility] Comment on above: Performed By: #### CBC ####[facility] ital Fnbvczqqty6763 [place] [address]Dr. Yuki Diaz Lymphocytes/100 WBC (Bld) 3.5 % Critically low 20.5-60.[address] [facility] Comment on above: Performed By: #### CBC ####[facility] ital Bslupmlqcx1583 [place] [address]Dr. Yuki Diaz MANUAL DIFF REQ NO Normal [facility] Comment on above: Performed By: #### CBC ####[facility] Ftwytveorh3820 [place] [address]Dr. Yuki Diaz MCH (RBC) [Entitic mass] 28.3 pg Normal 25.9-34.[address] [facility] Comment on above: Performed By: #### CBC ####[facility] Gtoynuhcns7130 [place] [address]Dr. Yuki Diaz MCHC (RBC) [Mass/Vol] 31.1 g/dL Normal 29.9-35.2 [facility] Comment on above: Performed By: #### CBC ####[facility] Fjqiejvyuw9426 [place] [address]Dr. Yuki Diaz MCV (RBC) [Entitic vol] 91.2 fL Normal 80.0-94.[address] [facility] Comment on above: Performed By: #### CBC ####[facility] Ldhgkqelwc4412 [place] [address]Dr. Yuki Diaz MONO # 0.5 103/ul Normal 0.3-0.[address] [facility] Comment on above: Performed By: #### CBC ####[facility] Dnqwmkwdit5273 [place] [address]Dr. Yuki Diaz Monocytes/100 WBC (Bld) 4.4 % Normal 1.7-12.[address] [facility] Comment on above: Performed By: #### CBC ####[facility] ital Kaexcfusvd7391 [place] [address]Dr. Yuki Diaz NEUT # 10.8 103/ul Critically high 1.4-6.[address] [facility] Comment on above: Performed By: #### CBC ####[facility] ital Ubvsyesgbd0186 [place] [address]Dr. Yuki Diaz Neutrophils/100 WBC (Bld) 91.6 % Critically high 43.0-75.[address] [facility] Comment on above: Performed By: #### CBC ####[facility] ital Vctefvajmn6633 [place] [address]Dr. Yuki Diaz Platelet mean volume (Bld) [Entitic vol] 10.1 fL Normal 9.5-13.[address] [facility] Comment on above: Performed By: #### CBC ####[facility] Wlcbmmmtny6836 [place] [address]Dr. Yuki Diaz PLT 223 103/ul Normal 150-[address] [facility] Comment on above: Performed By: #### CBC ####[facility] Okrqypnwht4462 [place] [address]Dr. Yuki Diaz RBC 3.39 106/ul Critically low 4.70-6.[address] [facility] Comment on above: Performed By: #### CBC ####[facility] Lglsweiwqg0067 [place] [address]Dr. Yuki Diaz WBC 11.8 103/ul Critically high 4.0-11.[address] [facility] Comment on above: Performed By: #### CBC ####[facility] Kehabfpiqq6093 [place] [address]Dr. Yuki Diaz BASO # 0.0 103/ul Normal 0.0-0.[address] [facility] Comment on above: Performed By: #### CBC ####[facility] Vyfvwvbvjd9421 [place] [address]Dr. Yuki Diaz Basophils/100 WBC (Bld) 0.1 % Critically low 0.2-2.[address] [facility] Comment on above: Performed By: #### CBC ####[facility] Dvugqmmvsl1492 [place] [address]Dr. Yuki Diaz EO # 0.0 103/ul Normal 0.0-0.[address] [facility] Comment on above: Performed By: #### CBC ####[facility] Rbsezyqcix2350 [place] [address]Dr. Yuki Diaz Eosinophils/100 WBC (Bld) 0.2 % Critically low 0.9-7.[address] [facility] Comment on above: Performed By: #### CBC ####[facility] Etxiokzkoc5441 [place] [address]Dr. Yuki Diaz Erythrocyte distribution width (RBC) [Ratio] 15.1 % Critically high 11.0-15.[address] [facility] Comment on above: Performed By: #### CBC ####[facility] Ynztahavwf9406 [place] [address]Dr. Yuki Diaz Hematocrit (Bld) [Volume fraction] 23.7 % Critically low 42.0-54.0 [facility] Comment on above: Performed By: #### CBC ####[facility] Ucmmspbfxb3864 [place] [address]Dr. Yuki Diaz Hemoglobin (Bld) [Mass/Vol] 7.4 g/dL Critically low 14.0-18.[address] [facility] Comment on above: Performed By: #### CBC ####[facility] Takxdiigab4850 [place] [address]Dr. Yuki Diaz IG # 0.07 10e3/ul Critically high 0.00-0.[address] [facility] Comment on above: Performed By: #### CBC ####[facility] Gthctxfwli9324 [place] [address]Dr. Yuki Diaz IG % 0.6 % Critically high 0.0-0.[address] [facility] Comment on above: Performed By: #### CBC ####[facility] Gddtaliiit6833 [place] [address]Dr. Yuki Diaz LYMPH # 0.8 103/ul Critically low 1.2-3.[address] [facility] Comment on above: Performed By: #### CBC ####[facility] Ctbjtixlrf2299 [place] [address]Dr. Yuki Diaz Lymphocytes/100 WBC (Bld) 6.6 % Critically low 20.5-60.0 [facility] Comment on above: Performed By: #### CBC ####[facility] ital Ilcbakdahz9778 [place] [address]Dr. Monsealyssa Diaz MANUAL DIFF REQ NO Normal [facility] Comment on above: Performed By: #### CBC ####[facility] Statwnsfac5994 [place] [address]Dr. Yuki Diaz MCH (RBC) [Entitic mass] 28.1 pg Normal 25.9-34.[address] [facility] Comment on above: Performed By: #### CBC ####[facility] Bhwegtpynv0255 [place] [address]Dr. Monsealyssa Diaz MCHC (RBC) [Mass/Vol] 31.2 g/dL Normal 29.9-35.[address] [facility] Comment on above: Performed By: #### CBC ####[facility] Jcwqtyhujj39[address] [place] [address]Dr. Monsealyssa Diaz MCV (RBC) [Entitic vol] 90.1 fL Normal 80.0-94.0 [facility] Comment on above: Performed By: #### CBC ####[facility] Rvibgzrjla5689 [place] [address]Dr. Monsealyssa Diaz MONO # 1.5 103/ul Critically high 0.3-0.[address] [facility] Comment on above: Performed By: #### CBC ####[facility] Guyptoajer1062 [place] [address]Dr. Monsealyssa Diaz Monocytes/100 WBC (Bld) 11.5 % Normal 1.7-12.[address] [facility] Comment on above: Performed By: #### CBC ####[facility] Rbomhokwlk5719 [place] [address]Dr. Yuki Diaz NEUT # 10.2 103/ul Critically high 1.4-6.[address] [facility] Comment on above: Performed By: #### CBC ####[facility] ital Xsgnukoyws4887 [place] [address]Dr. Yuki Diaz Neutrophils/100 WBC (Bld) 81.0 % Critically high 43.0-75.[address] [facility] Comment on above: Performed By: #### CBC ####[facility] ital Quhpvhtghy0621 [place] [address]Dr. Yuki Diaz Platelet mean volume (Bld) [Entitic vol] 10.7 fL Normal 9.5-13.[address] [facility] Comment on above: Performed By: #### CBC ####[facility] ital Mdpxkpvear4829 [place] [address]Dr. Yuki Diaz PLT 204 103/ul Normal 150-[address] [facility] Comment on above: Performed By: #### CBC ####[facility] Wzwqxntfga7227 [place] [address]Dr. Yuki Diaz RBC 2.63 106/ul Critically low 4.70-6.[address] [facility] Comment on above: Performed By: #### CBC ####[facility] Jwkgifuomt5784 [place] [address]Dr. Yuki Diaz WBC 12.6 103/ul Critically high 4.0-11.[address] [facility] Comment on above: Performed By: #### CBC ####[facility] Bwvpkgiaao7436 [place] [address]Dr[address] Y[address] Diaz CT ABD/PELVIS WO CONon 10-25 CT ABD/PELVIS WO CON Normal [facility] CT PELVIS WO CONon 3 CT PELVIS WO CON Normal [facility] POINT OF CARE GLUCOSEon 10-06 Glucose [Mass/Vol] 65 mg/dL Critically low 74-[address] [facility] Comment on above: Performed By: #### POCGLUC ####[facility] Xxblwhlksg[address] [place], [place] [address]Dr. Yuki Diaz Glucose [Mass/Vol] 137 mg/dL Critically high 74-[address] [facility] Comment on above: Performed By: #### POCGLUC ####[facility] Lsjqbettic[address] [place], [place] [address]Dr. Yuki Diaz Glucose [Mass/Vol] 118 mg/dL Critically high 74-[address] [facility] Comment on above: Performed By: #### POCGLUC ####[facility] Qfrhnpxfej2909 [place] [address]Dr. Yuki Diaz PROF 14(COMP METB)on 10-25- 023 Albumin [Mass/Vol] 2.2 g/dL Critically low 3.4-5.[address] [facility] Comment on above: Performed By: #### CMP ####[facility] Gppuhcatlv9614 [place] [address]Dr. Yuki Diaz Albumin/Globulin [Mass ratio] 0.6 {ratio} Normal [facility] Comment on above: Performed By: #### CMP ####[facility] ital Xoxyflwlie5692 [place] [address]Dr. Yuki Diaz ALP [Catalytic activity/Vol] 64 U/L Normal 46-[address] [facility] Comment on above: Performed By: #### CMP ####[facility] Xrfqwcelfa6631 [place] [address]Dr. Yuki Diaz ALT [Catalytic activity/Vol] 11 U/L Critically low 16-[address] [facility] Comment on above: Performed By: #### CMP ####[facility] Oxcfngwqmf0235 [place] [address]Dr. Yuki Diaz Anion gap [Moles/Vol] 13.5 mmol/L Normal [facility] Comment on above: Performed By: #### CMP ####[facility] ital Ntbgwxdifv5622 [place] [address]Dr. Yuki Diaz AST [Catalytic activity/Vol] 12 U/L Critically low 15-[address] [facility] Comment on above: Performed By: #### CMP ####[facility] ital Mlsfimepyf1557 [place] [address]Dr. Yuki Diaz Bilirubin [Mass/Vol] 0.8 mg/dL Normal 0.2-1.[address] [facility] Comment on above: Performed By: #### CMP ####[facility] ital Guigvoceop7417 [place] [address]Dr. Yuki Diaz Calcium [Mass/Vol] 8.5 mg/dL Normal 8.5-10.[address] [facility] Comment on above: Performed By: #### CMP ####[facility] ital Rstjlcxszt0979 [place] [address]Dr. Yuki Diaz Chloride [Moles/Vol] 100 mmol/L Normal 98-[address] [facility] Comment on above: Performed By: #### CMP ####[facility] ital Vkfwuwordd7063 [place] [address]Dr. Monsealyssa Joe CO2 [Moles/Vol] 28.1 mmol/L Normal 21.0-32.[address] [facility] Comment on above: Performed By: #### CMP ####[facility] Zedasmkine4564 [place] [address]Dr. Yuki Diaz Creatinine [Mass/Vol] 2.93 mg/dL Critically high 0.70-1.[address] [facility] Comment on above: Performed By: #### CMP ####[facility] Iwocqyhzuy4590 [place] [address]Dr. Yuki Diaz EGFR-AF UGANDAN 25 mL/min/1.73m2 Critically low >=[address] [facility] Comment on above: Performed By: #### CMP ####[facility] Tyodmmnxlo0627 [place] [address]Dr. Yuki Diaz EGFR-NON AF UGANDAN 21 mL/min/1.73m2 Critically low >=[address] [facility] Comment on above: Performed By: #### CMP ####[facility] ital Tyjvbrviwx8215 [place] [address]Dr. Yuki Diaz Globulin (S) [Mass/Vol] 3.7 g/dL Normal [facility] Comment on above: Performed By: #### CMP ####[facility] Nwswlghyau2097 [place] [address]Dr. Yuki Diaz Glucose [Mass/Vol] 112 mg/dL Critically high 74-[address] [facility] Comment on above: Performed By: #### CMP ####[facility] Xcxabtylcy7953 [place] [address]Dr. Yuki Diaz Potassium [Moles/Vol] 4.6 mmol/L Normal 3.5-5.[address] [facility] Comment on above: Performed By: #### CMP ####[facility] Lkzegjqlni9357 [place] [address]Dr. Yuki Diaz Protein [Mass/Vol] 5.9 g/dL Critically low 6.4-8.[address] [facility] Comment on above: Performed By: #### CMP ####[facility] ital Gfvstofaiu5953 [place] [address]Dr. Yuki Diaz Sodium [Moles/Vol] 137 mmol/L Normal 136-[address] [facility] Comment on above: Performed By: #### CMP ####[facility] Yhshgbyeoj3116 [place] [address]Dr. Yuki Diaz Urea nitrogen [Mass/Vol] 56.0 mg/dL Critically high 7.0-18.[address] [facility] Comment on above: Performed By: #### CMP ####[facility] Rxkpthqjjh112[address] [place], [place] [address]Dr. Yuki Diaz Urea nitrogen/Creatin ine [Mass ratio] 19.1 mg/mg Normal [facility] Comment on above: Performed By: #### CMP ####[facility] Tpvclnjjgb04[address] [place], [place] [address]Dr. Yuki Diaz TYPE AND SCREENon 10-25-2022 TYPE AND SCREEN Negative Normal [facility] Comment on above: Performed By: #### TNS ####[facility] Ygdqpnwacv[address] [place], [place] [address]Dr. Yuki Diaz XR CHEST 1 Von 10-25-2022 XR CHEST [address] [facility] CBC AUTO DIFFon 10-24-2022 BASO # 0.0 103/ul Normal 0.0-0.[address] [facility] Comment on above: Performed By: #### CBC ####[facility] Zdaeeqnvvh7872 [place] [address]Dr. Yuki Diaz Basophils/100 WBC (Bld) 0.1 % Critically low 0.2-2.[address] [facility] Comment on above: Performed By: #### CBC ####[facility] ital Glrsmvbylh9554 [place] [address]Dr. Yuki Diaz EO # 0.0 103/ul Normal 0.0-0.[address] [facility] Comment on above: Performed By: #### CBC ####[facility] ital Ackidxmjid6224 [place] [address]Dr. Yuki Diaz Eosinophils/100 WBC (Bld) 0.0 % Critically low 0.9-7.[address] [facility] Comment on above: Performed By: #### CBC ####[facility] ital Hulzvtvzup9810 [place] [address]Dr. Yuki Diaz Erythrocyte distribution width (RBC) [Ratio] 15.2 % Critically high 11.0-15.0 [facility] Comment on above: Performed By: #### CBC ####[facility] Qqynjzenzq127[address] [place], [place] [address]Dr. Yuki Diaz Hematocrit (Bld) [Volume fraction] 27.4 % Critically low 42.0-54.0 [facility] Comment on above: Performed By: #### CBC ####[facility] Povcrqwjyt9528 [place] [address]Dr. Yuki Diaz Hemoglobin (Bld) [Mass/Vol] 8.4 g/dL Critically low 14.0-18.0 [facility] Comment on above: Performed By: #### CBC ####[facility] Ikvixmiwww1470 [place] [address]Dr. Yuki Diaz IG # 0.13 10e3/ul Critically high 0.00-0.[address] [facility] Comment on above: Performed By: #### CBC ####[facility] Ecijyyhusv6164 [place] [address]Dr. Yuki Diaz IG % 0.7 % Critically high 0.0-0.5 [facility] Comment on above: Performed By: #### CBC ####[facility] ital Feevyiapxq054[address] [place], [place] [address]Dr. Yuki Diaz LYMPH # 1.0 103/ul Critically low 1.2-3.8 [facility] Comment on above: Performed By: #### CBC ####[facility] ital Pzzckgcwhu4634 [place] [address]Dr. Yuki Diaz Lymphocytes/100 WBC (Bld) 5.5 % Critically low 20.5-60.0 [facility] Comment on above: Performed By: #### CBC ####[facility] ital Ttlhxffrto7678 [place] [address]DrBebo Diza MANUAL DIFF REQ NO Normal [facility] Comment on above: Performed By: #### CBC ####[facility] ital Nsfaehfwvl9185 [place] [address]Dr. Yuki Diaz MCH (RBC) [Entitic mass] 27.8 pg Normal 25.9-34.0 [facility] Comment on above: Performed By: #### CBC ####[facility] ital Sqxjvlczcr5453 [place] [address]Dr. Yuki Diaz MCHC (RBC) [Mass/Vol] 30.7 g/dL Normal 29.9-35.2 [facility] Comment on above: Performed By: #### CBC ####[facility] ital Gbrjzcznxa0100 [place] [address]Dr. Yuki Diaz MCV (RBC) [Entitic vol] 90.7 fL Normal 80.0-94.0 [facility] Comment on above: Performed By: #### CBC ####[facility] ital Pbekadjtlb0701 [place] [address]Dr. Yuki Diaz MONO # 2.8 103/ul Critically high 0.3-0.8 [facility] Comment on above: Performed By: #### CBC ####[facility] ital Mitrxpykjc3958 [place] [address]DrBebo Diaz Monocytes/100 WBC (Bld) 15.0 % Critically high 1.7-12.[address] [facility] Comment on above: Performed By: #### CBC ####[facility] Fusymkcmux5924 [place] [address]Dr. Yuki Diaz NEUT # 14.9 103/ul Critically high 1.4-6.5 [facility] Comment on above: Performed By: #### CBC ####[facility] ital Ejdrzfehdv5940 [place] [address]DrBebo Diaz Neutrophils/100 WBC (Bld) 78.7 % Critically high 43.0-75.[address] [facility] Comment on above: Performed By: #### CBC ####[facility] ital Sppeyjqqgs7419 [place] [address]DrBebo Diaz Platelet mean volume (Bld) [Entitic vol] 10.8 fL Normal 9.5-13.[address] [facility] Comment on above: Performed By: #### CBC ####[facility] Xjusrnxcgn6839 [place] [address]DrBebo Diaz PLT 212 103/ul Normal 150-[address] [facility] Comment on above: Performed By: #### CBC ####[facility] Ekmraqxrzk2306 [place] [address]DrBebo Diaz RBC 3.02 106/ul Critically low 4.70-6.[address] [facility] Comment on above: Performed By: #### CBC ####[facility] Zbcehouaqd1410 [place] [address]DrBebo Diaz WBC 18.9 103/ul Critically high 4.0-11.[address] [facility] Comment on above: Performed By: #### CBC ####[facility] Ycxxejijbl8221 [place] [address]Dr[address] Y[address] CT KNEE RT WO CONon 10-25-19 CT KNEE RT WO CON Normal [facility] POINT OF CARE GLUCOSEon 10-06 0 Glucose [Mass/Vol] 110 mg/dL Critically high 74-[address] [facility] Comment on above: Performed By: #### POCGLUC ####[facility] Qtmmkllttf8326 [place] [address]DrBebo Diaz Glucose [Mass/Vol] 134 mg/dL Critically high 74-[address] [facility] Comment on above: Performed By: #### POCGLUC ####[facility] Jksxlmwhji1848 [place] [address]Dr. Yuki Diaz PROF 14(COMP METB)on 023 Albumin [Mass/Vol] 2.8 g/dL Critically low 3.4-5.[address] [facility] Comment on above: Performed By: #### CMP ####[facility] ital Fmejrrskql0166 [place] [address]Dr. Yuki Diaz Albumin/Globulin [Mass ratio] 0.8 {ratio} Normal [facility] Comment on above: Performed By: #### CMP ####[facility] ital Lhkvwmeqmp0944 [place] [address]Dr. Yuki Diaz ALP [Catalytic activity/Vol] 89 U/L Normal 46-[address] [facility] Comment on above: Performed By: #### CMP ####[facility] ital Ailjbzvqga8062 [place] [address]Dr. Yuki Diaz ALT [Catalytic activity/Vol] 10 U/L Critically low 16-[address] [facility] Comment on above: Performed By: #### CMP ####[facility] ital Efzukqidec8947 [place] [address]Dr. Yuki Diaz Anion gap [Moles/Vol] 11.7 mmol/L Normal [facility] Comment on above: Performed By: #### CMP ####[facility] ital Sahujhlgaq2653 [place] [address]Dr. Yuki Diaz AST [Catalytic activity/Vol] 12 U/L Critically low 15-[address] [facility] Comment on above: Performed By: #### CMP ####[facility] ital Bzysmwderh1288 [place] [address]Dr. Yuki Diaz Bilirubin [Mass/Vol] 0.9 mg/dL Normal 0.2-1.[address] [facility] Comment on above: Performed By: #### CMP ####[facility] ital Coklqbpinb4512 [place] [address]Dr. Yuki Diaz Calcium [Mass/Vol] 8.7 mg/dL Normal 8.5-10.[address] [facility] Comment on above: Performed By: #### CMP ####[facility] ital Idulbswtsc4415 [place] [address]Dr. Yuki Diaz Chloride [Moles/Vol] 102 mmol/L Normal 98-[address] [facility] Comment on above: Performed By: #### CMP ####[facility] ital Wwjsoylbeh5638 [place] [address]Dr. Yuki Diaz CO2 [Moles/Vol] 29.1 mmol/L Normal 21.0-32.[address] [facility] Comment on above: Performed By: #### CMP ####[facility] ital Wkpsinndct4338 [place] [address]Dr. Yuki Diaz Creatinine [Mass/Vol] 2.75 mg/dL Critically high 0.70-1.[address] [facility] Comment on above: Performed By: #### CMP ####[facility] Xwtrysevob1818 [place] [address]Dr. Yuki Diaz EGFR-AF UGANDAN 27 mL/min/1.73m2 Critically low >=[address] [facility] Comment on above: Performed By: #### CMP ####[facility] Hzbksvifip3955 [place] [address]Dr. Monsealyssa Joe EGFR-NON AF UGANDAN 22 mL/min/1.73m2 Critically low >=[address] [facility] Comment on above: Performed By: #### CMP ####[facility] Untgysdftx8493 [place] [address]Dr. Yuki Diaz Globulin (S) [Mass/Vol] 3.7 g/dL Normal [facility] Comment on above: Performed By: #### CMP ####[facility] Yuqolpcwsf7814 [place] [address]Dr. Yuki Diaz Glucose [Mass/Vol] 121 mg/dL Critically high 74-[address] [facility] Comment on above: Performed By: #### CMP ####[facility] ital Levkjvstkg1057 [place] [address]Dr. Yuki Diaz Potassium [Moles/Vol] 4.8 mmol/L Normal 3.5-5.[address] [facility] Comment on above: Performed By: #### CMP ####[facility] ital Vnphnoczfc94[address] [place], [place] [address]Dr. Yuki Diaz Protein [Mass/Vol] 6.5 g/dL Normal 6.4-8.[address] [facility] Comment on above: Performed By: #### CMP ####[facility] Noeexjrcuc2957 [place] [address]Dr. Yuki Diaz Sodium [Moles/Vol] 138 mmol/L Normal 136-[address] [facility] Comment on above: Performed By: #### CMP ####[facility] ital Yrjsakbciy0458 [place] [address]Dr. Yuki Diaz Urea nitrogen [Mass/Vol] 39.0 mg/dL Critically high 7.0-18.[address] [facility] Comment on above: Performed By: #### CMP ####[facility] Aohyjymahk5253 [place] [address]Dr. Yuki Diaz Urea nitrogen/Creatin ine [Mass ratio] 14.2 mg/mg Normal [facility] Comment on above: Performed By: #### CMP ####[facility] Uqtmukzucn840[address] [place], [place] [address]Dr. Yuki Diaz US KIDNEYS BLADDERon 023 US KIDNEYS BLADDER Normal [facility] XR CHEST 1 Von 10-24-2022 XR CHEST [address] [facility] CBC AUTO DIFFon 10-23-2022 BASO # 0.0 103/ul Normal 0.0-0.[address] [facility] Comment on above: Performed By: #### CBC ####[facility] Hamoickyum9341 [place] [address]Dr. Yuki Joe Basophils/100 WBC (Bld) 0.1 % Critically low 0.2-2.[address] [facility] Comment on above: Performed By: #### CBC ####[facility] Zlmlbnuqou4645 [place] [address]Dr. Yuki Diaz EO # 0.1 103/ul Normal 0.0-0.[address] [facility] Comment on above: Performed By: #### CBC ####[facility] Khoqhazwyd2529 [place] [address]Dr. Monsealyssa Joe Eosinophils/100 WBC (Bld) 0.4 % Critically low 0.9-7.0 [facility] Comment on above: Performed By: #### CBC ####[facility] Cnhndixlrf[address] [place] [address]. Yuki Diaz Erythrocyte distribution width (RBC) [Ratio] 15.0 % Normal 11.0-15.0 [facility] Comment on above: Performed By: #### CBC ####[facility] Hywqalzjqa12[address] [place] [address]. Yuki Diaz Hematocrit (Bld) [Volume fraction] 29.8 % Critically low 42.0-54.0 [facility] Comment on above: Performed By: #### CBC ####[facility] Xtioihumos[address] [place] [address]. Yuki Diaz Hemoglobin (Bld) [Mass/Vol] 9.1 g/dL Critically low 14.0-18.0 [facility] Comment on above: Performed By: #### CBC ####[facility] Gowfzkbawf[address] [place] [address]. Yuki Diaz IG # 0.07 10e3/ul Critically high 0.00-0.03 [facility] Comment on above: Performed By: #### CBC ####[facility] Daihvfbiyn[address] [place] [address]. Yuki Diaz IG % 0.5 % Normal 0.0-0.5 [facility] Comment on above: Performed By: #### CBC ####[facility] Pjjukfbkyk[address] [place] [address]. Yuki Diaz LYMPH # 1.0 103/ul Critically low 1.2-3.[address] [facility] Comment on above: Performed By: #### CBC ####[facility] Xalrufestu75[address] [place] [address]. Yuki Diaz Lymphocytes/100 WBC (Bld) 7.8 % Critically low 20.5-60.0 [facility] Comment on above: Performed By: #### CBC ####[facility] Vtthchxnvs[address] [place] [address]. Yuki Diaz MANUAL DIFF REQ NO Normal [facility] Comment on above: Performed By: #### CBC ####[facility] Iwvhpzgneo1441 [place] [address]DrBebo Diaz MCH (RBC) [Entitic mass] 27.9 pg Normal 25.9-34.0 [facility] Comment on above: Performed By: #### CBC ####[facility] Uxyhrtrtdd7861 [place] [address]DrBebo Diaz MCHC (RBC) [Mass/Vol] 30.5 g/dL Normal 29.9-35.2 [facility] Comment on above: Performed By: #### CBC ####[facility] Twgcggfeml188[address] [place], [place] [address]DrBebo Diaz MCV (RBC) [Entitic vol] 91.4 fL Normal 80.0-94.0 [facility] Comment on above: Performed By: #### CBC ####[facility] Yqzrxxqikq85[address] [place], [place] [address]DrBebo Diaz MONO # 2.1 103/ul Critically high 0.3-0.8 [facility] Comment on above: Performed By: #### CBC ####[facility] Hzlrenfxpb800[address] [place], [place] [address]DrBebo Diaz Monocytes/100 WBC (Bld) 16.0 % Critically high 1.7-12.0 [facility] Comment on above: Performed By: #### CBC ####[facility] Bomioazlsw[address] [place], [place] [address]DrBebo Diaz NEUT # 10.1 103/ul Critically high 1.4-6.[address] [facility] Comment on above: Performed By: #### CBC ####[facility] Klxkwbktsr197[address] [place], [place] [address]DrBebo Diaz Neutrophils/100 WBC (Bld) 75.2 % Critically high 43.0-75.[address] [facility] Comment on above: Performed By: #### CBC ####[facility] Wwducsvnmv507[address] [place], [place] [address]DrBebo Diaz Platelet mean volume (Bld) [Entitic vol] 10.3 fL Normal 9.5-13.5 [facility] Comment on above: Performed By: #### CBC ####[facility] ital Sspesqtmli9461 [place] [address]Dr. Yuki Diaz PLT 255 103/ul Normal 150-450 [facility] Comment on above: Performed By: #### CBC ####[facility] ital Uyxebfsbxk0252 [place] [address]DrBebo Yuki Diaz RBC 3.26 106/ul Critically low 4.70-6.10 [facility] Comment on above: Performed By: #### CBC ####[facility] Exobhoygvf5800 [place] [address]Dr. Yuki Diaz WBC 13.4 103/ul Critically high 4.0-11.0 [facility] Comment on above: Performed By: #### CBC ####[facility] Sajlszgxcs[address] [place], [place] [address]DrBebo Yuki Diaz CULTURE BLOODon 10-23-2022 Microscopic examination of blood, culture Culture Observations: NO GROWTH AT [address] [facility] Comment on above: Performed By: #### BLDCX1 ####[facility] Mvfxpzdhkc9[address] [place], [place] [address]DrBebo Yuki Diaz Performed By: #### B LDCX2 ####[facility] Puzvuyinuz[address] [place], [place] [address]DrBebo Yuki Diaz CULTURE URINEon 10-23-2022 CULTURE URINE Culture Observations : NO GROWTH. Normal [facility] Comment on above: Performed By: #### URCX ####[facility] Hkbzvjrlea[address] [place], [place] [address]DrBebo Yuki Diaz [facility]on 10-05 SARS-CoV-2 (COVID-19) RNA JARVIS+probe Ql (Unsp spec) Not detected Normal NOT DETECTED [facility] Comment on above: Result Comment: [...] for this test is supported by the [employer] of Health and Human Service's declaration that [...] be used). Performed By: #### C SYMONE ####[facility] Zfduqnkdff475[address] [place], [place] [address]Dr. Yuki Diaz ER URINE PROFILEon 3 Bilirubin Ql (U) Negative Normal NEGATIVE [facility] Comment on above: Performed By: #### MARCELLO CAZARES ####[facility] Kthoczycey[address] [place], [place] [address]Dr. Yuki Diaz Clarity (U) CLEAR Normal CLEAR [facility] Comment on above: Performed By: #### MARCELLO CAZARES ####[facility] Ocqdvubmem[address] [place], [place] [address]Dr. Yuki Diaz Color (U) YELLOW Normal YELLOW [facility] Comment on above: Performed By: #### MARCELLO CAZARES ####[facility] Wittpuqetg[address] [place], [place] [address]Dr. Yuki GTZD A micrscopic examina tion will be performed if indicated. Normal [facility] Comment on above: Performed By: #### MARCELLO CAZARES ####[facility] Wfiutobysn[address] [place], [place] [address]Dr. Yuki Diaz Glucose Ql (U) Negative Normal NEGATIVE [facility] Comment on above: Performed By: #### HAKAN CAZARESRO ####[facility] Gietrxfgjc[address] [place], [place] [address]Dr. Yuki Diaz Hemoglobin Ql (U) SMALL Abnormal NEGATIVE [facility] Comment on above: Performed By: #### SAGE UMICRO ####[facility] [address]zlshvzhtd[address] [place] [address]Dr. Yuki Diaz Ketones Ql (U) Negative Normal NEGATIVE [facility] Comment on above: Performed By: #### SAGE UMICRO ####[facility] O[address]zcchhlp[address] [place] [address]Dr. Yuki Diaz LEUKOCYTES Negative Normal NEGATIVE [facility] Comment on above: Performed By: #### SAGE UMICRO ####[facility] Ogocmohgex27[address] [place] [address]Dr. Yuki Diaz Nitrite Ql (U) Negative Normal NEGATIVE [facility] Comment on above: Performed By: #### SAGE UMICRO ####[facility] Gmmdpaflwr[address] [place], [place] [address]Dr. Yuki Diaz pH (U) 7.0 [pH] Normal 5-[address] [facility] Comment on above: Performed By: #### SAGE UMICRO ####[facility] Kytunfnbql[address] [place], [place] [address]Dr. Yuki Diaz Protein (U) [Mass/Vol] 30 mg/dL Abnormal NEGATIVE/ TRACE [facility] Comment on above: Performed By: #### SAGE UMICRO ####[facility] Rvvpeirfxh[address] [place], [place] [address]Dr. Yuki Diaz SPEC GRAVITY 1.010 Normal 1.005-<=1. [address] [facility] Comment on above: Performed By: #### SAGE UMICRO ####[facility] [address]zltfihol[address] [place] [address]Dr. Yuki Diaz UR MICRO IND INDICATED Normal [facility] Comment on above: Performed By: #### SAGE UMICRO ####[facility] Wzdcrbgmyy6[address] [place] [address]Dr. Yuki Diaz Urobilinogen Qn (U) 1.0 {Chidi'U}/dL Normal 0.2 - 1.[address] [facility] Comment on above: Performed By: #### ERUR, UMKETANRO ####[facility] Wrelbjauxu[address] [place], [place] [address]Dr. Yuki Diaz INFLUENZA A AND B AGon 10-23 INFLUANEGH SEE BELOW Normal [facility] Comment on above: Result Comment: Negative for Flu A prote in angiten. Infection due to Flu A cannot be ruled out. Flu A angiten in the sample may be below the detection limit of the test. Performed By: #### I NFLUAB ####[facility] Ofzwmipvaz[address] [place], [place] [address]Dr. Yuki Diaz INFLUBNEGH SEE BELOW Normal [facility] Comment on above: Result Comment: Negative for Flu B prote in antigen. Infection due to Flu B cannot be ruled out. Flu B antigen in the sample may be below the detection limit of the test. Performed By: #### I NFLUAB ####[facility] Zvrtbjizhm[address] [place], [place] [address]Dr. Yuki [facility] INFLUENZA A AG Negative Normal NEGATIVE SEE COMMENT [facility] Comment on above: Performed By: #### INFLUAB ####[facility] Vplzmlkmsw165[address] [place], [place] [address]Dr. Yuki [facility] INFLUENZA B AG Negative Normal NEGATIVE SEE COMMENT [facility] Comment on above: Performed By: #### INFLUAB ####[facility] Eglrsaovqm96[address] [place], [place] [address]Dr. Yuki Diaz LACTATE/LACTIC ACIDon 2022 Lactate [Moles/Vol] 1.3 mmol/L Normal 0.4-2.[address] [facility] Comment on above: Performed By: #### LACT ####[facility] Uxhgxezoqc67[address] [place], [place] [address]Dr. Yuki Diaz Lactate [Moles/Vol] 1.6 mmol/L Normal 0.4-2.[address] [facility] Comment on above: Performed By: #### LACT ####[facility] Ignztxfjfq3[address] [place], [place] [address]Dr. Yuki [facility] Lactate [Moles/Vol] 1.5 mmol/L Normal 0.4-2.[address] [facility] Comment on above: Performed By: #### LACT ####[facility] Opcrjexjqq[address] [place] [address]Dr. Yuki Diaz POINT OF CARE GLUCOSEon 10-05 Glucose [Mass/Vol] 127 mg/dL Critically high 74-106 [facility] Comment on above: Performed By: #### POCGLUC ####[facility] Bpuoqluzpz7[address] [place] [address]Dr. Yuki Diaz Glucose [Mass/Vol] 145 mg/dL Critically high 74-106 [facility] Comment on above: Performed By: #### POCGLUC ####[facility] Oybgbrwwsi6116 [place] [address]Dr. Yuki Diaz PROF 14(COMP METB)on 023 Albumin [Mass/Vol] 3.4 g/dL Normal 3.4-5.0 [facility] Comment on above: Performed By: #### CMP ####[facility] Bqltpmkdiu2538 [place] [address]Dr. Yuki Diaz Albumin/Globulin [Mass ratio] 0.8 {ratio} Normal [facility] Comment on above: Performed By: #### CMP ####[facility] Brwvpoitcy0[address] [place] [address]Dr. Yuki Diaz ALP [Catalytic activity/Vol] 100 U/L Normal 46-[address] [facility] Comment on above: Performed By: #### CMP ####[facility] Hkhkrpbncb5925 [place] [address]Dr. Yuki Diaz ALT [Catalytic activity/Vol] 15 U/L Critically low 16-[address] [facility] Comment on above: Performed By: #### CMP ####[facility] Caqdxdatog9769 [place] [address]Dr. Yuki Diaz Anion gap [Moles/Vol] 14.2 mmol/L Normal [facility] Comment on above: Performed By: #### CMP ####[facility] Nlyjdwhgln8185 [place] [address]Dr. Yuki Diaz AST [Catalytic activity/Vol] 12 U/L Critically low 15-37 [facility] Comment on above: Performed By: #### CMP ####[facility] Kgwozkdwqy1820 [place] [address]Dr. Yuki Diaz Bilirubin [Mass/Vol] 0.8 mg/dL Normal 0.2-1.0 [facility] Comment on above: Performed By: #### CMP ####[facility] ital Vnhadpawdz2955 [place] [address]Dr. Yuki Diaz Calcium [Mass/Vol] 9.0 mg/dL Normal 8.5-10.1 [facility] Comment on above: Performed By: #### CMP ####[facility] ital Iwskfkqhvk2718 [place] [address]Dr. Yuki Diaz Chloride [Moles/Vol] 101 mmol/L Normal 98-[address] [facility] Comment on above: Performed By: #### CMP ####[facility] Ryrilzfhat5017 [place] [address]Dr. Yuki Diaz CO2 [Moles/Vol] 30.3 mmol/L Normal 21.0-32.[address] [facility] Comment on above: Performed By: #### CMP ####[facility] Kicwvqnkpf1082 [place] [address]Dr. Yuki Diaz Creatinine [Mass/Vol] 2.86 mg/dL Critically high 0.70-1.30 [facility] Comment on above: Performed By: #### CMP ####[facility] Jzkymcwwno5167 [place] [address]Dr. Yuki Joe EGFR-AF UGANDAN 26 mL/min/1.73m2 Critically low >=[address] [facility] Comment on above: Performed By: #### CMP ####[facility] Fgqeilcufw44[address] [place] [address]Dr. Yuki Joe EGFR-NON AF UGANDAN 21 mL/min/1.73m2 Critically low >=[address] [facility] Comment on above: Performed By: #### CMP ####[facility] Nlnvvaueca9071 [place] [address]Dr. Yuki Joe Globulin (S) [Mass/Vol] 4.1 g/dL Normal [facility] Comment on above: Performed By: #### CMP ####[facility] Jiavsrsogy5883 [place] [address]Dr. Yuki Diaz Glucose [Mass/Vol] 153 mg/dL Critically high 74-106 [facility] Comment on above: Performed By: #### CMP ####[facility] ital Lvuagjqoau5979 [place] [address]Dr. Yuki Diaz Potassium [Moles/Vol] 4.5 mmol/L Normal 3.5-5.[address] [facility] Comment on above: Performed By: #### CMP ####[facility] Orzsjtjlmd9[address] [place] [address]Dr. Yuki Diaz Protein [Mass/Vol] 7.5 g/dL Normal 6.4-8.2 [facility] Comment on above: Performed By: #### CMP ####[facility] Knlnqmcpek4823 [place] [address]Dr. Yuki Diaz Sodium [Moles/Vol] 141 mmol/L Normal 136-[address] [facility] Comment on above: Performed By: #### CMP ####[facility] Glqwkqzlsg3255 [place] [address]Dr. Yuki Diaz Urea nitrogen [Mass/Vol] 40.0 mg/dL Critically high 7.0-18.0 [facility] Comment on above: Performed By: #### CMP ####[facility] Jcxxnwbdtl7242 [place] [address]Dr. Yuki Diaz Urea nitrogen/Creatin ine [Mass ratio] 14.0 mg/mg Normal [facility] Comment on above: Performed By: #### CMP ####[facility] Qlzysbgphg0872 [place] [id number]. Yuki Joe URINE MICROSCOPIC ONLYon BACTERIA NONE SEEN Normal NONE SEEN [facility] Comment on above: Performed By: #### MARCELLO CAZARES ####[facility] Aedezfyjja[address] [place] [id number]. Yuki Joe Bacteria identified Cx Nom (U) CX ALREADY ORDERED Normal [facility] Comment on above: Performed By: #### SAGE UMICRO ####[facility] Ealdntdhbp[address] [place] [address]Dr. Yuki Diaz CAST NONE SEEN Normal NONE SEEN [facility] Comment on above: Performed By: #### SAGE UMICRO ####[facility] Gvlyuaaqmj11[address] [place] [address]Dr. Yuki Diaz Crystals LM Nom (Urine sed) NONE SEEN Normal NONE SEEN [facility] Comment on above: Performed By: #### SAGE UMICRO ####[facility] Svjfahbdrc0548 [place] [address]Dr. Yuki Diaz Epithelial cells LM Ql (Urine sed) NONE SEEN Normal NONE SEEN /RARE [facility] Comment on above: Performed By: #### SAGE UMICRO ####[facility] Aqifhmlejl29[address] [place] [address]Dr. Yuki Diaz MUCOUS NONE SEEN Normal NONE SEEN [facility] Comment on above: Performed By: #### SAGE UMICRO ####[facility] Lpdtjgdiwq[address] [place], [place] [address]Dr. Monsealyssa Diaz RBC 0-2 Normal 0-[address] [facility] Comment on above: Performed By: #### SAGE UMICRO ####[facility] Rilaoynrfi[address] [place], [place] [address]Dr. Yuki Diaz WBC NONE SEEN Normal NONE SEEN [facility] Comment on above: Performed By: #### SAGE UMICRO ####[facility] Ajwdmbdoft[address] [place], [place] [address]Dr. Yuki Diaz XR KNEE RT 4V or >on 023 XR KNEE RT 4V or > Normal [facility] XR HAND LT MIN 3Von 10-23-19 23 XR HAND LT MIN 3V Normal [facility] BNPon 10-13-2022 Natriuretic peptide B (Bld) [Mass/Vol] 1093.0 pg/mL Normal <=1,800.[address] [facility] Comment on above: Performed By: #### BMP, BNP ####[facility] Keghrmpnqj15[address] [place] [address]Dr. Yuki Diaz PROF CHEM 8 (BAS METB)on Anion gap [Moles/Vol] 9.7 mmol/L Normal [facility] Comment on above: Performed By: #### BMP, BNP ####[facility] Qqslwtkjsj5501 [place] [address]Dr. Yuki Diaz Calcium [Mass/Vol] 8.6 mg/dL Normal 8.5-10.[address] [facility] Comment on above: Performed By: #### BMP, BNP ####[facility] Xbmrgnuepb01[address] [place], [place] [address]Dr. Yuki Diaz Chloride [Moles/Vol] 105 mmol/L Normal 98-[address] [facility] Comment on above: Performed By: #### BMP, BNP ####[facility] Lplvbyfjjf[address] [place], [place] [address]Dr. Yuki Diaz CO2 [Moles/Vol] 31.1 mmol/L Normal 21.0-32.[address] [facility] Comment on above: Performed By: #### BMP, BNP ####[facility] Fvlatqoewv[address] [place], [place] [address]Dr. Yuki Diaz Creatinine [Mass/Vol] 2.46 mg/dL Critically high 0.70-1.[address] [facility] Comment on above: Performed By: #### BMP, BNP ####[facility] Hqhlrwrkhu[address] [place], [place] [address]Dr. Yuki Diaz EGFR-AF UGANDAN 31 mL/min/1.73m2 Critically low >=[address] [facility] Comment on above: Performed By: #### BMP, BNP ####[facility] Jbdyimzcij94[address] [place], [place] [address]Dr. Yuki Diaz EGFR-NON AF UGANDAN 25 mL/min/1.73m2 Critically low >=[address] [facility] Comment on above: Performed By: #### BMP, BNP ####[facility] Vmzhljyfmh[address] [place], [place] [address]Dr. Yuki Diaz Glucose [Mass/Vol] 155 mg/dL Critically high 74-[address] [facility] Comment on above: Performed By: #### BMP, BNP ####[facility] Bupcutdtpk96[address] [place], [place] [address]Zm. Yuki Diaz Potassium [Moles/Vol] 3.8 mmol/L Normal 3.5-5.1 [facility] Comment on above: Performed By: #### BMP, BNP ####[facility] Wdtxajkqtn8487 [place], [place] [address]Rn. Yuki Diaz Sodium [Moles/Vol] 142 mmol/L Normal 136-[address] [facility] Comment on above: Performed By: #### BMP, BNP ####[facility] Fwjpqzrfju7334 [place], [place] [address]Ex. Yuki Diaz Urea nitrogen [Mass/Vol] 37.0 mg/dL Critically high 7.0-18.0 [facility] Comment on above: Performed By: #### BMP, BNP ####[facility] Ykwagrxurm5667 [place] [id number]. Yuki Diaz Urea nitrogen/Creatin ine [Mass ratio] 15.0 mg/mg Normal [facility] Comment on above: Performed By: #### BMP, BNP ####[facility] Diykdfgpoa1614 [place], [place] [address]Lg. Yuki Diaz Provider Letteron 09-20-2022 Provider Letter (Inserted Image. Alice ble to display) September 20, 2022 SH[address]ER [address] [place] [phone] SHENG BAUER 1940 Dear Sheng , You [...] appreciate your understanding. Sincerely, [facility] [address], [place] [address] Normal [facility] BNPon 09-19-2022 Natriuretic peptide B (Bld) [Mass/Vol] 1200.0 pg/mL Normal <=1,800.0 [facility] Comment on above: Performed By: #### CMP, BNP ####[facility] Eapsobzjpu[address] [place] [address]Dr. Yuki Diaz PROF 14(COMP METB)on 023 Albumin [Mass/Vol] 3.2 g/dL Critically low 3.4-5.0 [facility] Comment on above: Performed By: #### CMP, BNP ####[facility] Irlrdxnrmm1036 [place] [address]Dr. Yuki Diaz Albumin/Globulin [Mass ratio] 0.8 {ratio} Normal [facility] Comment on above: Performed By: #### CMP, BNP ####[facility] Tpcautsqxo[address] [place], [place] [address]Dr. Yuki Diaz ALP [Catalytic activity/Vol] 93 U/L Normal 46-[address] [facility] Comment on above: Performed By: #### CMP, BNP ####[facility] Wotsbzpqri[address] [place], [place] [address]Dr. Yuki Diaz ALT [Catalytic activity/Vol] 16 U/L Normal 16-63 [facility] Comment on above: Performed By: #### CMP, BNP ####[facility] Rkaijbhwjy17[address] [place], [place] [address]Dr. Yuki Diaz Anion gap [Moles/Vol] 13.6 mmol/L Normal [facility] Comment on above: Performed By: #### CMP, BNP ####[facility] Vsbrxcqwxg[address] [place], [place] [address]Dr. Yuki Diaz AST [Catalytic activity/Vol] 13 U/L Critically low 15-[address] [facility] Comment on above: Performed By: #### CMP, BNP ####[facility] Flplkrjvfr[address] [place], [place] [address]Dr. Yuki Diaz Bilirubin [Mass/Vol] 0.5 mg/dL Normal 0.2-1.0 [facility] Comment on above: Performed By: #### CMP, BNP ####[facility] Smxnsyxxmc2073 [place] [address]Dr. Yuki Diaz Calcium [Mass/Vol] 8.9 mg/dL Normal 8.5-10.[address] [facility] Comment on above: Performed By: #### CMP, BNP ####[facility] Zlonptxsgk4860 [place] [address]Dr. Yuki Diaz Chloride [Moles/Vol] 107 mmol/L Normal 98-[address] [facility] Comment on above: Performed By: #### CMP, BNP ####[facility] Cgmzliwzan4840 [place] [address]Dr. Yuki Diaz CO2 [Moles/Vol] 28.7 mmol/L Normal 21.0-32.[address] [facility] Comment on above: Performed By: #### CMP, BNP ####[facility] Vmyjzhtgzx639[address] [place], [place] [address]Dr. Yuki Diaz Creatinine [Mass/Vol] 2.61 mg/dL Critically high 0.70-1.[address] [facility] Comment on above: Performed By: #### CMP, BNP ####[facility] Otynuwuwqm[address] [place], [place] [address]Dr. Yuki Diaz EGFR-AF UGANDAN 29 mL/min/1.73m2 Critically low >=[address] [facility] Comment on above: Performed By: #### CMP, BNP ####[facility] Lnnqmvgste[address] [place], [place] [address]Dr. Yuki Diaz EGFR-NON AF UGANDAN 24 mL/min/1.73m2 Critically low >=[address] [facility] Comment on above: Performed By: #### CMP, BNP ####[facility] Ulxvaljhax228[address] [place], [place] [address]Dr. Yuki Diaz Globulin (S) [Mass/Vol] 4.0 g/dL Normal [facility] Comment on above: Performed By: #### CMP, BNP ####[facility] Cxhjjiuxnc847[address] [place], [place] [address]Dr. Yuki Joe Glucose [Mass/Vol] 119 mg/dL Critically high 74-[address] [facility] Comment on above: Performed By: #### CMP, BNP ####[facility] Zvetqhnzeo8524 [place] [address]Dr. Yuki Diaz Potassium [Moles/Vol] 4.3 mmol/L Normal 3.5-5.1 [facility] Comment on above: Performed By: #### CMP, BNP ####[facility] Vardijnupr3364 [place] [address]Dr. Yuki Diaz Protein [Mass/Vol] 7.2 g/dL Normal 6.4-8.2 [facility] Comment on above: Performed By: #### CMP, BNP ####[facility] Suargyxzng3520 [place] [address]Dr. Yuki Diaz Sodium [Moles/Vol] 145 mmol/L Normal 136-145 [facility] Comment on above: Performed By: #### CMP, BNP ####[facility] Ftubfwaxfc7415 [place] [address]Dr. Yuki Diaz Urea nitrogen [Mass/Vol] 42.0 mg/dL Critically high 7.0-18.0 [facility] Comment on above: Performed By: #### CMP, BNP ####[facility] Jvzlyrplrz7533 [place] [address]Dr. Yuki Diaz Urea nitrogen/Creatin ine [Mass ratio] 16.1 mg/mg Normal [facility] Comment on above: Performed By: #### CMP, BNP ####[facility] Xeibmkivyl06[address] [place], [place] [address]Dr. Yuki Diaz Office Visiton 09-12-2022 Follow-up visit [id number] Nohelia Bauer 1940 M Date Provider Department Center 09/12/2022 OREN PEDRO [facility] Family History Problem Relation Age of Onset Coronary artery disease Mother Family Status - Relation Status Age at Mother Level of Service:41883 [facility] OFFICE/OUTPATIENT ESTABLISHED LOW MDM 20-29 MIN Reason for Visit and Comments: Congestive Heart Failure [127] Coronary Artery Disease [187] Hypertension [170473] Normal [facility] BNPon 09-02-2022 Natriuretic peptide B (Bld) [Mass/Vol] 1506.0 pg/mL Normal <=1,800.[address] [facility] Comment on above: Performed By: #### CMP, BNP ####[facility] Mxpbvycsbs2130 [place] [address]Dr. Yuki Diaz PROF 14(COMP METB)on 023 Albumin [Mass/Vol] 3.0 g/dL Critically low 3.4-5.[address] [facility] Comment on above: Performed By: #### CMP, BNP ####[facility] Hyzzaqzprj[address] [place], [place] [address]Dr. Yuki Diaz Albumin/Globulin [Mass ratio] 0.8 {ratio} Normal [facility] Comment on above: Performed By: #### CMP, BNP ####[facility] Jyeupxrteg25[address] [place], [place] [address]Dr. Yuki Diaz ALP [Catalytic activity/Vol] 89 U/L Normal 46-[address] [facility] Comment on above: Performed By: #### CMP, BNP ####[facility] Igjxbzaike698[address] [place], [place] [address]Dr. Yuki Diaz ALT [Catalytic activity/Vol] 17 U/L Normal 16-[address] [facility] Comment on above: Performed By: #### CMP, BNP ####[facility] Ajtojhyfiv[address] [place], [place] [address]Dr. Yuki Diaz Anion gap [Moles/Vol] 12.2 mmol/L Normal [facility] Comment on above: Performed By: #### CMP, BNP ####[facility] Myzacelxvh9[address] [place], [place] [address]Dr. Yuki Diaz AST [Catalytic activity/Vol] 13 U/L Critically low 15-[address] [facility] Comment on above: Performed By: #### CMP, BNP ####[facility] Ldhzomybna48[address] [place], [place] [address]Dr. Yuki Diaz Bilirubin [Mass/Vol] 0.4 mg/dL Normal 0.2-1.[address] [facility] Comment on above: Performed By: #### CMP, BNP ####[facility] Ilyiqvnulx55[address] [place], [place] [address]Dr. Yuki Diaz Calcium [Mass/Vol] 8.8 mg/dL Normal 8.5-10.[address] [facility] Comment on above: Performed By: #### CMP, BNP ####[facility] Dudbfeyrol[address] [place], [place] [address]Dr. Yuki Diaz Chloride [Moles/Vol] 104 mmol/L Normal 98-[address] [facility] Comment on above: Performed By: #### CMP, BNP ####[facility] Vyozljqudd023[address] [place], [place] [address]Dr. Yuki Diaz CO2 [Moles/Vol] 31.4 mmol/L Normal 21.0-32.[address] [facility] Comment on above: Performed By: #### CMP, BNP ####[facility] Jdqsdmgwss837[address] [place], [place] [address]Dr. Yuki Diaz Creatinine [Mass/Vol] 2.76 mg/dL Critically high 0.70-1.[address] [facility] Comment on above: Performed By: #### CMP, BNP ####[facility] Qynwjsuffa9[address] [place], [place] [address]Dr. Yuki Diaz EGFR-AF UGANDAN 27 mL/min/1.73m2 Critically low >=[address] [facility] Comment on above: Performed By: #### CMP, BNP ####[facility] Svqcxyagva[address] [place], [place] [address]Dr. Yuki Diaz EGFR-NON AF UGANDAN 22 mL/min/1.73m2 Critically low >=[address] [facility] Comment on above: Performed By: #### CMP, BNP ####[facility] Fvyamemigp99[address] [place], [place] [address]Dr. Yuki Diaz Globulin (S) [Mass/Vol] 3.8 g/dL Normal [facility] Comment on above: Performed By: #### CMP, BNP ####[facility] Oqpplkepto[address] [place], [place] [address]Dr. Yuki Diaz Glucose [Mass/Vol] 200 mg/dL Critically high 74-[address] [facility] Comment on above: Performed By: #### CMP, BNP ####[facility] Qymokrkzmr3789 [place] [address]Dr. Yuki Diaz Potassium [Moles/Vol] 4.6 mmol/L Normal 3.5-5.[address] [facility] Comment on above: Performed By: #### CMP, BNP ####[facility] Cyfsotiyld[address] [place], [place] [address]Dr. Yuki Diaz Protein [Mass/Vol] 6.8 g/dL Normal 6.4-8.[address] [facility] Comment on above: Performed By: #### CMP, BNP ####[facility] Azdogvikzl[address] [place], [place] [address]Dr. Monsealyssa Diaz Sodium [Moles/Vol] 143 mmol/L Normal 136-145 [facility] Comment on above: Performed By: #### CMP, BNP ####[facility] [address]ban[address] [place], [place] [address]Dr. Yuki Diaz Urea nitrogen [Mass/Vol] 44.0 mg/dL Critically high 7.0-18.[address] [facility] Comment on above: Performed By: #### CMP, BNP ####[facility] Momomfrpem[address] [place], [place] [address]Dr. Yuki Diaz Urea nitrogen/Creatin ine [Mass ratio] 15.9 mg/mg Normal [facility] Comment on above: Performed By: #### CMP, BNP ####[facility] Wwigvrcj[address] [place], [place] [address]Dr. Yuki Diaz ECHOCARDIO M/2D COMPLETEon 1 09-20-2021 ECHOCARDIO M/2D COMPLETE Normal [facility] Lab Reportson 06-15-2022 Lab Reports [id number] Normal [facility] PROF 14(COMP METB)on 022 Albumin [Mass/Vol] 3.0 g/dL Critically low 3.4-5.0 [facility] Comment on above: Performed By: #### CMP ####[facility] Bwnwru[address] [place], [place] [address]Dr. Yuki Diaz Albumin/Globulin [Mass ratio] 0.9 {ratio} Normal [facility] Comment on above: Performed By: #### CMP ####[facility] Mkpmhohogc5506 [place] [address]Dr. Yuki Diaz ALP [Catalytic activity/Vol] 73 U/L Normal 46-[address] [facility] Comment on above: Performed By: #### CMP ####[facility] Rtsulghoua0615 [place] [address]Dr. Yuki Diaz ALT [Catalytic activity/Vol] 21 U/L Normal 16-[address] [facility] Comment on above: Performed By: #### CMP ####[facility] Xagjiiyuns0872 [place] [address]Dr. Yuki Diaz Anion gap [Moles/Vol] 8.5 mmol/L Normal [facility] Comment on above: Performed By: #### CMP ####[facility] Mtpluhanmf0028 [place] [address]Dr. Yuki Diaz AST [Catalytic activity/Vol] 11 U/L Critically low 15-[address] [facility] Comment on above: Performed By: #### CMP ####[facility] Ssboeoabzg4453 [place] [address]Dr. Yuki Diaz Bilirubin [Mass/Vol] 0.6 mg/dL Normal 0.2-1.[address] [facility] Comment on above: Performed By: #### CMP ####[facility] Syjyzuagjg1054 [place] [address]Dr. Yuki Diaz Calcium [Mass/Vol] 8.7 mg/dL Normal 8.5-10.[address] [facility] Comment on above: Performed By: #### CMP ####[facility] Aulxtbzdxn8640 [place] [address]Dr. Yuki Diaz Chloride [Moles/Vol] 104 mmol/L Normal 98-[address] [facility] Comment on above: Performed By: #### CMP ####[facility] Poovmemgwc2057 [place] [address]Dr. Yuki Diaz CO2 [Moles/Vol] 32.7 mmol/L Critically high 21.0-32.[address] [facility] Comment on above: Performed By: #### CMP ####[facility] Sbnusvkeiy8381 [place] [id number]. Yuki Diaz Creatinine [Mass/Vol] 2.43 mg/dL Critically high 0.70-1.[address] [facility] Comment on above: Performed By: #### CMP ####[facility] Pdvddscvrp0159 [place] [address]Dr. Yuki Diaz EGFR-AF UGANDAN 31 mL/min/1.73m2 Critically low >=[address] [facility] Comment on above: Performed By: #### CMP ####[facility] Xntcrsilqa4976 [place] [address]Dr. Yuki Diaz EGFR-NON AF UGANDAN 26 mL/min/1.73m2 Critically low >=60 [facility] Comment on above: Performed By: #### CMP ####[facility] Ndsbzmhslv2799 [place] [address]Dr. Yuki Diaz Globulin (S) [Mass/Vol] 3.4 g/dL Normal [facility] Comment on above: Performed By: #### CMP ####[facility] Jmbpubdbvu3874 [place] [address]Dr. Yuki Diaz Glucose [Mass/Vol] 155 mg/dL Critically high 74-106 [facility] Comment on above: Performed By: #### CMP ####[facility] Rioykisxhp5127 [place] [address]Dr. Yuki Diaz Potassium [Moles/Vol] 4.2 mmol/L Normal 3.5-5.[address] [facility] Comment on above: Performed By: #### CMP ####[facility] Qtktalkdin7268 [place] [address]Dr. Yuki Diaz Protein [Mass/Vol] 6.4 g/dL Normal 6.4-8.[address] [facility] Comment on above: Performed By: #### CMP ####[facility] Ozswwjmawe7988 [place] [address]Dr. Yuki Diaz Sodium [Moles/Vol] 141 mmol/L Normal 136-[address] [facility] Comment on above: Performed By: #### CMP ####[facility] Olryvpgxik5656 [place] [address]Dr. Yuki Diaz Urea nitrogen [Mass/Vol] 47.0 mg/dL Critically high 7.0-18.[address] [facility] Comment on above: Performed By: #### CMP ####[facility] Ulttbfdudg0172 [place] [address]Dr. Yuki Diaz Urea nitrogen/Creatin ine [Mass ratio] 19.3 mg/mg Normal [facility] Comment on above: Performed By: #### CMP ####[facility] Bytsjxxcnp9326 [place] [address]Dr. Yuki Diaz PROF 14(COMP METB)on 022 Albumin [Mass/Vol] 2.9 g/dL Critically low 3.4-5.0 [facility] Comment on above: Performed By: #### CMP ####[facility] Vyhqdrmwzc9843 [place] [address]Dr. Yuki Diaz Albumin/Globulin [Mass ratio] 0.8 {ratio} Normal [facility] Comment on above: Performed By: #### CMP ####[facility] Ixltevotxn9749 [place] [address]Dr. Yuki Diaz ALP [Catalytic activity/Vol] 86 U/L Normal 46-116 [facility] Comment on above: Performed By: #### CMP ####[facility] Mfscjdfddj9425 [place] [address]Dr. Yuki Diaz ALT [Catalytic activity/Vol] 27 U/L Normal 16-[address] [facility] Comment on above: Performed By: #### CMP ####[facility] Xeafpembeb5264 [place] [address]Dr. Yuki Diaz Anion gap [Moles/Vol] 11.5 mmol/L Normal [facility] Comment on above: Performed By: #### CMP ####[facility] Wzoaysxhtc8941 [place] [address]Dr. Yuki Diaz AST [Catalytic activity/Vol] 10 U/L Critically low 15-[address] [facility] Comment on above: Performed By: #### CMP ####[facility] Jjbwrbrhjm1868 [place] [address]Dr. Yuki Diaz Bilirubin [Mass/Vol] 0.5 mg/dL Normal 0.2-1.[address] [facility] Comment on above: Performed By: #### CMP ####[facility] Hojefakukx5007 [place] [address]Dr. Yuki Diaz Calcium [Mass/Vol] 8.6 mg/dL Normal 8.5-10.[address] [facility] Comment on above: Performed By: #### CMP ####[facility] Ppbhvotnan4668 [place] [address]Dr. Yuki Diaz Chloride [Moles/Vol] 108 mmol/L Critically high 98-[address] [facility] Comment on above: Performed By: #### CMP ####[facility] Zrpxwgusgf6078 [place] [address]Dr. Yuki Diaz CO2 [Moles/Vol] 28.0 mmol/L Normal 21.0-32.[address] [facility] Comment on above: Performed By: #### CMP ####[facility] Hsthalupbw6736 [place] [address]Dr. Yuki Diaz Creatinine [Mass/Vol] 2.58 mg/dL Critically high 0.70-1.30 [facility] Comment on above: Performed By: #### CMP ####[facility] Vhoibxwtfk7953 [place] [address]Dr. Yuki Diaz EGFR-AF UGANDAN 29 mL/min/1.73m2 Critically low >=[address] [facility] Comment on above: Performed By: #### CMP ####[facility] Qsuuhqspds2760 [place] [address]Dr. Yuki Diaz EGFR-NON AF UGANDAN 24 mL/min/1.73m2 Critically low >=[address] [facility] Comment on above: Performed By: #### CMP ####[facility] Kxthzzxxon1294 [place] [address]Dr. Yuki Diaz Globulin (S) [Mass/Vol] 3.5 g/dL Normal [facility] Comment on above: Performed By: #### CMP ####[facility] Zadxdvxcnj3493 [place] [id number]. Yuki Diaz Glucose [Mass/Vol] 136 mg/dL Critically high 74-[address] [facility] Comment on above: Performed By: #### CMP ####[facility] Fcgocpfrjs9915 [place] [id number]. Yuki Diaz Potassium [Moles/Vol] 4.5 mmol/L Normal 3.5-5.[address] [facility] Comment on above: Performed By: #### CMP ####[facility] Kdpgetcxql7333 [place] [address]Dr. Yuki Diaz Protein [Mass/Vol] 6.4 g/dL Normal 6.4-8.2 [facility] Comment on above: Performed By: #### CMP ####[facility] Kwgxmnsxvi0162 [place] [address]Dr. Yuki Diaz Sodium [Moles/Vol] 143 mmol/L Normal 136-[address] [facility] Comment on above: Performed By: #### CMP ####[facility] Katkniaoqn8145 [place] [address]Dr. Yuki Diaz Urea nitrogen [Mass/Vol] 48.0 mg/dL Critically high 7.0-18.0 [facility] Comment on above: Performed By: #### CMP ####[facility] Zgogwadzfw3356 [place] [address]Dr. Yuki Diaz Urea nitrogen/Creatin ine [Mass ratio] 18.6 mg/mg Normal [facility] Comment on above: Performed By: #### CMP ####[facility] Sllofxttpj2811 [place] [address]Dr. Yuki Diaz PROF 14(COMP METB)on 022 Albumin [Mass/Vol] 3.2 g/dL Critically low 3.4-5.0 [facility] Comment on above: Performed By: #### CMP ####[facility] Wyewoxhxux0273 [place] [address]Dr. Yuki Diaz Albumin/Globulin [Mass ratio] 0.9 {ratio} Normal [facility] Comment on above: Performed By: #### CMP ####[facility] Ytlushtsio5067 [place] [address]Dr. Yuki Diaz ALP [Catalytic activity/Vol] 89 U/L Normal 46-[address] [facility] Comment on above: Performed By: #### CMP ####[facility] Psrhranvrm2579 [place] [address]Dr. Yuki Diaz ALT [Catalytic activity/Vol] 113 U/L Critically high 16-[address] [facility] Comment on above: Performed By: #### CMP ####[facility] Hoxuktmeme6642 [place] [address]Dr. Yuki Diaz Anion gap [Moles/Vol] 10.8 mmol/L Normal [facility] Comment on above: Performed By: #### CMP ####[facility] Dctypiivaz0886 [place] [address]Dr. Yuki Diaz AST [Catalytic activity/Vol] 32 U/L Normal 15-[address] [facility] Comment on above: Performed By: #### CMP ####[facility] Iiyozwhhne2329 [place] [address]Dr. Yuki Diaz Bilirubin [Mass/Vol] 0.7 mg/dL Normal 0.2-1.[address] [facility] Comment on above: Performed By: #### CMP ####[facility] Fyyfxjoxvw1213 [place] [address]Dr. Yuki Diaz Calcium [Mass/Vol] 8.8 mg/dL Normal 8.5-10.[address] [facility] Comment on above: Performed By: #### CMP ####[facility] Whnxrsajpf4859 [place] [address]Dr. Yuki Diaz Chloride [Moles/Vol] 106 mmol/L Normal 98-[address] [facility] Comment on above: Performed By: #### CMP ####[facility] Afohxckrxr9072 [place] [address]Dr. Yuki Diaz CO2 [Moles/Vol] 30.4 mmol/L Normal 21.0-32.[address] [facility] Comment on above: Performed By: #### CMP ####[facility] Rgdzmbpctc5815 [place] [id number]. Yuki Diaz Creatinine [Mass/Vol] 2.54 mg/dL Critically high 0.70-1.[address] [facility] Comment on above: Performed By: #### CMP ####[facility] Rusurryajy3008 [place] [address]Dr. Yuki Diaz EGFR-AF UGANDAN 30 mL/min/1.73m2 Critically low >=[address] [facility] Comment on above: Performed By: #### CMP ####[facility] Dqtkvllrcf8593 [place] [address]Dr. Yuki Diaz EGFR-NON AF UGANDAN 25 mL/min/1.73m2 Critically low >=[address] [facility] Comment on above: Performed By: #### CMP ####[facility] Pqeyvnszkl4410 [place] [address]Dr. Yuki Diaz Globulin (S) [Mass/Vol] 3.4 g/dL Normal [facility] Comment on above: Performed By: #### CMP ####[facility] Bgvoamskxo9325 [place] [address]Dr. Yuki Diaz Glucose [Mass/Vol] 114 mg/dL Critically high 74-[address] [facility] Comment on above: Performed By: #### CMP ####[facility] Pudxosoeil7200 [place] [address]Dr. Yuki Diaz Potassium [Moles/Vol] 4.2 mmol/L Normal 3.5-5.[address] [facility] Comment on above: Performed By: #### CMP ####[facility] Gfmpoewmla7310 [place] [address]Dr. Yuki Diaz Protein [Mass/Vol] 6.6 g/dL Normal 6.4-8.[address] [facility] Comment on above: Performed By: #### CMP ####[facility] Udhsthaehw0965 [place] [address]Dr. Yuki Diaz Sodium [Moles/Vol] 143 mmol/L Normal 136-[address] [facility] Comment on above: Performed By: #### CMP ####[facility] Snmlobzogp4440 [place] [address]Dr. Yuki Diaz Urea nitrogen [Mass/Vol] 65.0 mg/dL Critically high 7.0-18.[address] [facility] Comment on above: Performed By: #### CMP ####[facility] Bqhvpzbmbg7010 [place] [address]Dr. Yuki Diaz Urea nitrogen/Creatin ine [Mass ratio] 25.6 mg/mg Normal [facility] Comment on above: Performed By: #### CMP ####[facility] Figprcnmmq6152 [place] [address]Dr. Yuki Diaz XR HIP RT INJon 04-01-2022 XR HIP RT INJ Normal [facility] PROF 14(COMP METB)on 022 Albumin [Mass/Vol] 3.6 g/dL Normal 3.4-5.[address] [facility] Comment on above: Performed By: #### CMP ####[facility] Emonmvkomo3295 [place] [address]Dr. Yuki Diaz Albumin/Globulin [Mass ratio] 0.9 {ratio} Normal [facility] Comment on above: Performed By: #### CMP ####[facility] Xdgsfgsmjo8476 [place] [address]Dr. Yuki Diaz ALP [Catalytic activity/Vol] 91 U/L Normal 46-[address] [facility] Comment on above: Performed By: #### CMP ####[facility] Jwbzinqrin5163 [place] [address]Dr. Yuki Diaz ALT [Catalytic activity/Vol] 19 U/L Normal 16-[address] [facility] Comment on above: Performed By: #### CMP ####[facility] Lfktxpuqkk7177 [place] [address]Dr. Yuki Diaz Anion gap [Moles/Vol] 12.3 mmol/L Normal [facility] Comment on above: Performed By: #### CMP ####[facility] Ubxwhxgrnm7392 [place] [address]Dr. Yuki Diaz AST [Catalytic activity/Vol] 14 U/L Critically low 15-[address] [facility] Comment on above: Performed By: #### CMP ####[facility] Qggciprnbb8032 [place] [id number]. Yuki Diaz Bilirubin [Mass/Vol] 0.7 mg/dL Normal 0.2-1.[address] [facility] Comment on above: Performed By: #### CMP ####[facility] Jkhlzqzcmp0276 [place] [address]Dr. Yuki Diaz Calcium [Mass/Vol] 8.9 mg/dL Normal 8.5-10.[address] [facility] Comment on above: Performed By: #### CMP ####[facility] Etlwyjxfbu9868 [place] [address]Dr. Yuki Diaz Chloride [Moles/Vol] 102 mmol/L Normal 98-[address] [facility] Comment on above: Performed By: #### CMP ####[facility] Tdkpbbllro7049 [place] [address]Dr. Yuki Diaz CO2 [Moles/Vol] 30.4 mmol/L Normal 21.0-32.[address] [facility] Comment on above: Performed By: #### CMP ####[facility] Slngmqeeom8778 [place] [address]Dr. Yuki Diaz Creatinine [Mass/Vol] 2.13 mg/dL Critically high 0.70-1.30 [facility] Comment on above: Performed By: #### CMP ####[facility] Jceegczaia2992 [place] [address]Dr. Yuki Joe EGFR-AF UGANDAN 37 mL/min/1.73m2 Critically low >=[address] [facility] Comment on above: Performed By: #### CMP ####[facility] Tzpvgjnkqi4695 [place] [address]Dr. Yuki Joe EGFR-NON AF UGANDAN 30 mL/min/1.73m2 Critically low >=[address] [facility] Comment on above: Performed By: #### CMP ####[facility] Ctdpnnyppz4921 [place] [id number]. Yuki Joe Globulin (S) [Mass/Vol] 3.9 g/dL Normal [facility] Comment on above: Performed By: #### CMP ####[facility] Ymggjvribg7452 [place] [address]Dr. Yuki Diaz Glucose [Mass/Vol] 146 mg/dL Critically high 74-106 [facility] Comment on above: Performed By: #### CMP ####[facility] Tuktbuhdvc6691 [place] [address]Dr. Yuki Diaz Potassium [Moles/Vol] 3.7 mmol/L Normal 3.5-5.1 [facility] Comment on above: Performed By: #### CMP ####[facility] Scxtlsrlqm7637 [place] [address]Dr. Yuki Diaz Protein [Mass/Vol] 7.5 g/dL Normal 6.4-8.2 [facility] Comment on above: Performed By: #### CMP ####[facility] Ahqdhgwlfs2553 [place] [address]Dr. Yuki Diaz Sodium [Moles/Vol] 141 mmol/L Normal 136-[address] [facility] Comment on above: Performed By: #### CMP ####[facility] Tednpivort8076 [place] [address]Dr. Yuki Diaz Urea nitrogen [Mass/Vol] 39.0 mg/dL Critically high 7.0-18.0 [facility] Comment on above: Performed By: #### CMP ####[facility] Czqudbwqcw1392 [place] [address]Dr. Yuki Diaz Urea nitrogen/Creatin ine [Mass ratio] 18.3 mg/mg Normal [facility] Comment on above: Performed By: #### CMP ####[facility] Dofzvptcwj8054 [place] [address]DrBebo Diaz PROF 14(COMP METB)on 022 Albumin [Mass/Vol] 3.3 g/dL Critically low 3.4-5.0 [facility] Comment on above: Performed By: #### CMP ####[facility] Lcdrvzuzsl5479 [place] [address]Dr. Yuki Diaz Albumin/Globulin [Mass ratio] 0.9 {ratio} Normal [facility] Comment on above: Performed By: #### CMP ####[facility] Deiztrdmsg4653 [place] [address]Dr. Yuki Diaz ALP [Catalytic activity/Vol] 78 U/L Normal 46-116 [facility] Comment on above: Performed By: #### CMP ####[facility] Gackbowdpo5367 [place] [address]Dr. Yuki Diaz ALT [Catalytic activity/Vol] 19 U/L Normal 16-63 [facility] Comment on above: Performed By: #### CMP ####[facility] Vtemxbrwoq7474 [place] [address]Dr. Yuki Diaz Anion gap [Moles/Vol] 12.3 mmol/L Normal [facility] Comment on above: Performed By: #### CMP ####[facility] Vtcepfgijh5573 [place] [address]Dr. Yuki Diaz AST [Catalytic activity/Vol] 13 U/L Critically low 15-37 [facility] Comment on above: Performed By: #### CMP ####[facility] Txdcltgnqp2203 [place] [address]Dr. Yuki Diaz Bilirubin [Mass/Vol] 0.8 mg/dL Normal 0.2-1.0 [facility] Comment on above: Performed By: #### CMP ####[facility] Logpktqsts0239 [place] [address]Dr. Yuki Diaz Calcium [Mass/Vol] 8.8 mg/dL Normal 8.5-10.[address] [facility] Comment on above: Performed By: #### CMP ####[facility] Gdzvyarime9569 [place] [address]Dr. Yuki Diaz Chloride [Moles/Vol] 105 mmol/L Normal 98-[address] [facility] Comment on above: Performed By: #### CMP ####[facility] Mhotklaofo5919 [place] [address]Dr. Yuki Diaz Creatinine [Mass/Vol] 2.44 mg/dL Critically high 0.70-1.[address] [facility] Comment on above: Performed By: #### CMP ####[facility] Plurskzjbz7313 [place] [id number]. Yuki Diaz EGFR-AF UGANDAN 31 mL/min/1.73m2 Critically low >=[address] [facility] Comment on above: Performed By: #### CMP ####[facility] Erzglyxvqx0885 [place] [id number]. Yuki Diaz EGFR-NON AF UGANDAN 26 mL/min/1.73m2 Critically low >=[address] [facility] Comment on above: Performed By: #### CMP ####[facility] Irjuvhfpjd0416 [place] [address]Dr. Yuki Diaz Globulin (S) [Mass/Vol] 3.7 g/dL Normal [facility] Comment on above: Performed By: #### CMP ####[facility] Euvqhovpus0424 [place] [address]Dr. Yuki Joe Glucose [Mass/Vol] 196 mg/dL Critically high 74-106 [facility] Comment on above: Performed By: #### CMP ####[facility] Kdsvdeckqq8875 [place] [address]Dr. Yuki Joe Potassium [Moles/Vol] 4.6 mmol/L Normal 3.5-5.[address] [facility] Comment on above: Performed By: #### CMP ####[facility] Kqsjhdhvlk6342 [place] [address]Dr. Yuki Diaz Protein [Mass/Vol] 7.0 g/dL Normal 6.4-8.[address] [facility] Comment on above: Performed By: #### CMP ####[facility] Akkzffhpck4716 [place] [address]Dr. Yuki Diaz Sodium [Moles/Vol] 144 mmol/L Normal 136-[address] [facility] Comment on above: Performed By: #### CMP ####[facility] Gskbtpkmzg6372 [place] [address]Dr. Yuki Diaz Urea nitrogen [Mass/Vol] 44.0 mg/dL Critically high 7.0-18.[address] [facility] Comment on above: Performed By: #### CMP ####[facility] Xcmbyhrhne5136 [place] [address]Dr. Yuki Diaz Urea nitrogen/Creatin ine [Mass ratio] 18.0 mg/mg Normal [facility] Comment on above: Performed By: #### CMP ####[facility] Mrclxntckl4352 [place] [address]Dr. Yuki Diaz PROF 14(COMP METB)on 022 Albumin [Mass/Vol] 3.2 g/dL Critically low 3.4-5.0 [facility] Comment on above: Performed By: #### CMP ####[facility] Jrkpttmthj0110 [place] [address]Dr. Yuki Diaz Albumin/Globulin [Mass ratio] 0.9 {ratio} Normal [facility] Comment on above: Performed By: #### CMP ####[facility] Ujrvtdfmsv5402 [place] [address]Dr. Yuki Diaz ALP [Catalytic activity/Vol] 75 U/L Normal 46-116 [facility] Comment on above: Performed By: #### CMP ####[facility] Fudkwbjeba1628 [place] [address]Dr. Yuki Diaz ALT [Catalytic activity/Vol] 14 U/L Critically low 16-[address] [facility] Comment on above: Performed By: #### CMP ####[facility] Huthptsjnj2936 [place] [address]Dr. Yuki Diaz Anion gap [Moles/Vol] 12.6 mmol/L Normal [facility] Comment on above: Performed By: #### CMP ####[facility] Ntnyhvrfgo4482 [place] [address]Dr. Yuki Diaz AST [Catalytic activity/Vol] 9 U/L Critically low 15-[address] [facility] Comment on above: Performed By: #### CMP ####[facility] Gbrcdofhhe5306 [place] [address]Dr. Yuik Diaz Bilirubin [Mass/Vol] 0.7 mg/dL Normal 0.2-1.[address] [facility] Comment on above: Performed By: #### CMP ####[facility] Txqbeazskz4488 [place] [address]Dr. Yuki Diaz Calcium [Mass/Vol] 8.6 mg/dL Normal 8.5-10.[address] [facility] Comment on above: Performed By: #### CMP ####[facility] Iswkffxass7329 [place] [address]Dr. Yuki Diaz Chloride [Moles/Vol] 107 mmol/L Normal 98-[address] [facility] Comment on above: Performed By: #### CMP ####[facility] Raaqnmxcvo6195 [place] [address]Dr. Yuki Diaz CO2 [Moles/Vol] 28.3 mmol/L Normal 21.0-32.[address] [facility] Comment on above: Performed By: #### CMP ####[facility] Cryizfghtd9763 [place] [address]Dr. Yuki Joe Creatinine [Mass/Vol] 2.52 mg/dL Critically high 0.70-1.[address] [facility] Comment on above: Performed By: #### CMP ####[facility] Naabriujwq5672 [place] [address]Dr. Yuki Diaz EGFR-AF UGANDAN 30 mL/min/1.73m2 Critically low >=[address] [facility] Comment on above: Performed By: #### CMP ####[facility] Pmxmabradb4888 [place] [address]Dr. Yuki Joe EGFR-NON AF UGANDAN 25 mL/min/1.73m2 Critically low >=[address] [facility] Comment on above: Performed By: #### CMP ####[facility] Brbytzyrwv4771 [place] [address]Dr. Yuki Joe Globulin (S) [Mass/Vol] 3.7 g/dL Normal [facility] Comment on above: Performed By: #### CMP ####[facility] Edpdipyqjp9481 [place] [address]Dr. Yuki Diaz Glucose [Mass/Vol] 152 mg/dL Critically high 74-[address] [facility] Comment on above: Performed By: #### CMP ####[facility] Vbhcwubgwj3199 [place] [address]Dr. Yuki Diaz Potassium [Moles/Vol] 3.9 mmol/L Normal 3.5-5.1 [facility] Comment on above: Performed By: #### CMP ####[facility] [address]sebnzeq[address] [place] [id number]. Yuki Diaz Protein [Mass/Vol] 6.9 g/dL Normal 6.4-8.[address] [facility] Comment on above: Performed By: #### CMP ####[facility] Afszlgbrik59[address] [place] [address]Dr. Yuki Diaz Sodium [Moles/Vol] 144 mmol/L Normal 136-145 [facility] Comment on above: Performed By: #### CMP ####[facility] Oxaogvdhyi9407 [place] [address]Dr. Yuki Diaz Urea nitrogen [Mass/Vol] 50.0 mg/dL Critically high 7.0-18.0 [facility] Comment on above: Performed By: #### CMP ####[facility] ital Jotauwukip[address] [place] [address]Dr. Yuki Diaz Urea nitrogen/Creatin ine [Mass ratio] 19.8 mg/mg Normal [facility] Comment on above: Performed By: #### CMP ####[facility] Fusqxhcgyp4113 [place] [address]Dr. Yuki Diaz PROF 14(COMP METB)on 022 Albumin [Mass/Vol] 3.1 g/dL Critically low 3.4-5.0 [facility] Comment on above: Performed By: #### CMP ####[facility] Lvdrckcfdt2636 [place] [address]Dr. Yuki Diaz Albumin/Globulin [Mass ratio] 0.7 {ratio} Normal [facility] Comment on above: Performed By: #### CMP ####[facility] Xfbebfxynh0283 [place] [address]Dr. Yuki Diaz ALP [Catalytic activity/Vol] 101 U/L Normal 46-[address] [facility] Comment on above: Performed By: #### CMP ####[facility] Tyqrflvnwx0686 [place] [address]Dr. Yuki Diaz ALT [Catalytic activity/Vol] 18 U/L Normal 16-[address] [facility] Comment on above: Performed By: #### CMP ####[facility] Szymzhodby6881 [place] [id number]. Yuki Diaz Anion gap [Moles/Vol] 11.9 mmol/L Normal [facility] Comment on above: Performed By: #### CMP ####[facility] Rhduvkftao1707 [place] [address]Dr. Yuki Diaz AST [Catalytic activity/Vol] 11 U/L Critically low 15-37 [facility] Comment on above: Performed By: #### CMP ####[facility] Fncstownru2777 [place] [address]Dr. Yuki Diaz Bilirubin [Mass/Vol] 0.5 mg/dL Normal 0.2-1.0 [facility] Comment on above: Performed By: #### CMP ####[facility] Vafdutkhda3268 [place] [address]Dr. Yuki Diaz Calcium [Mass/Vol] 9.0 mg/dL Normal 8.5-10.[address] [facility] Comment on above: Performed By: #### CMP ####[facility] Xtyghaxnmb1070 [place] [address]Dr. Yuki Diaz Chloride [Moles/Vol] 103 mmol/L Normal 98-[address] [facility] Comment on above: Performed By: #### CMP ####[facility] Enjhlvblyb4959 [place] [address]Dr. Yuki Diaz CO2 [Moles/Vol] 29.8 mmol/L Normal 21.0-32.[address] [facility] Comment on above: Performed By: #### CMP ####[facility] Zivvaicdbi0826 [place] [address]Dr. Yuki Joe Creatinine [Mass/Vol] 3.03 mg/dL Critically high 0.70-1.[address] [facility] Comment on above: Performed By: #### CMP ####[facility] Bbhscfpnpl8274 [place] [address]Dr. Yuki Diaz EGFR-AF UGANDAN 24 mL/min/1.73m2 Critically low >=[address] [facility] Comment on above: Performed By: #### CMP ####[facility] Fuwkqarbrz6954 [place] [address]Dr. Yuki Diaz EGFR-NON AF UGANDAN 20 mL/min/1.73m2 Critically low >=[address] [facility] Comment on above: Performed By: #### CMP ####[facility] Itadpknmar0634 [place] [address]Dr. Yuki Diaz Globulin (S) [Mass/Vol] 4.4 g/dL Normal [facility] Comment on above: Performed By: #### CMP ####[facility] Ldwzwakhbk7323 [place] [address]Dr. Yuki Joe Glucose [Mass/Vol] 260 mg/dL Critically high 74-[address] [facility] Comment on above: Performed By: #### CMP ####[facility] Jvrwuhiirr0776 [place] [address]Dr. Yuki Joe Potassium [Moles/Vol] 4.7 mmol/L Normal 3.5-5.[address] [facility] Comment on above: Performed By: #### CMP ####[facility] Ytomlivdvb9452 [place] [address]Dr. Yuki Diaz Protein [Mass/Vol] 7.5 g/dL Normal 6.4-8.[address] [facility] Comment on above: Performed By: #### CMP ####[facility] Bjvheeecue2971 [place] [address]Dr. Yuki Diaz Sodium [Moles/Vol] 140 mmol/L Normal 136-[address] [facility] Comment on above: Performed By: #### CMP ####[facility] Treelzhceg4293 [place] [address]Dr. Yuki Diaz Urea nitrogen [Mass/Vol] 50.0 mg/dL Critically high 7.0-18.[address] [facility] Comment on above: Performed By: #### CMP ####[facility] Zuzgtqlukv4733 [place], [place] [address]QxBebo Diaz Urea nitrogen/Creatin ine [Mass ratio] 16.5 mg/mg Normal [facility] Comment on above: Performed By: #### CMP ####[facility] Brzgxsegis1939 [place], [place] [address]VuBebo Diaz Screenson 02-18-2022 Screens [id number]:127 Normal [facility] Ambulatory Visit Summaryon 0 02-15-2022 Ambulatory Visit Summary SHENG BAUER :1940 Visit Date:02/15/2022 Ambulatory Visit Instructions Your Diagnosis Elevated PSA BPH associated with nocturia Nocturia Tests Performed Urnls Dip Stick Auto w/o Microscopy POC 25103 Your Care Team Attending Physician - César [...] Gordon Jr., MD Where: [facility] Patient Educationon 02-16-20 Patient Education Oncology Prostate-Specific [...] including vitamins, herbs, eye drops, creams, and pypr-rzo-rydpbza medicines. This also includes: ? Medicines to [...] 08/26/2005 Document Revised: 07/06/2018 Document Reviewed: 04/30/2018 [employer] Patient Education ? 2019 [employer] [facility] Urology Office/Clinic Noteon 02-15-2022 Urology Office/Clinic [...] Urnls Dip Stick Auto w/o Microscopy POC 09077 2. BPH associated with nocturia (N40.1: Benign [...] months [facility] [address] [place] [id number]- Additional Instructions: w/ psa Patient Education Prostate-Specific [...] (more content not included)... Normal [facility] Comment on above: Result Comment: Electronically Signed By : Evan Ochoa MD, César Vega\.br\Date and Time Signed: 02/15/22 10:42 EDT\.br\Electronically Co-Signed By: Gretel Bhagat\.br\Date and Time Co-Signed: 02/15/22 10:35 EDT PROF 14(COMP METB)on 022 Albumin [Mass/Vol] 3.3 g/dL Critically low 3.4-5.0 [facility] Comment on above: Performed By: #### CMP ####[facility] Prdzhvlzri2731 [place] [address]Dr. Yuki Diaz Albumin/Globulin [Mass ratio] 0.8 {ratio} Normal [facility] Comment on above: Performed By: #### CMP ####[facility] Osgbisgktj3848 [place] [address]Dr. Yuki Diaz ALP [Catalytic activity/Vol] 111 U/L Normal 46-[address] [facility] Comment on above: Performed By: #### CMP ####[facility] ital Vfhsrpaqip5324 [place] [address]Dr. Yuki Diaz ALT [Catalytic activity/Vol] 22 U/L Normal 16-[address] [facility] Comment on above: Performed By: #### CMP ####[facility] ital Rjreaxctat3756 [place] [address]Dr. Yuki Diaz Anion gap [Moles/Vol] 9.0 mmol/L Normal [facility] Comment on above: Performed By: #### CMP ####[facility] ital Oeszbqownk2556 [place] [address]Dr. Yuki Diaz AST [Catalytic activity/Vol] 10 U/L Critically low 15-37 [facility] Comment on above: Performed By: #### CMP ####[facility] ital Pxrvbrglqs7138 [place] [address]Dr. Yuki Diaz Bilirubin [Mass/Vol] 1.0 mg/dL Normal 0.2-1.0 [facility] Comment on above: Performed By: #### CMP ####[facility] ital Bvqqnoevxv7[address] [place], [place] [address]Dr. Yuki Diaz Calcium [Mass/Vol] 9.1 mg/dL Normal 8.5-10.[address] [facility] Comment on above: Performed By: #### CMP ####[facility] Kmkkedgozj5217 [place] [address]Dr. Yuki Diaz Chloride [Moles/Vol] 103 mmol/L Normal 98-[address] [facility] Comment on above: Performed By: #### CMP ####[facility] Epvovcosxu7439 [place] [address]Dr. Yuki Diaz CO2 [Moles/Vol] 32.8 mmol/L Critically high 21.0-32.[address] [facility] Comment on above: Performed By: #### CMP ####[facility] Rvkpqbfjoo52[address] [place], [place] [address]Dr. Yuki Diaz Creatinine [Mass/Vol] 2.55 mg/dL Critically high 0.70-1.[address] [facility] Comment on above: Performed By: #### CMP ####[facility] Rfyasywgyv0125 [place] [address]Dr. Yuki Diaz EGFR-AF UGANDAN 30 mL/min/1.73m2 Critically low >=60 [facility] Comment on above: Performed By: #### CMP ####[facility] Pryrxoalxv7780 [place] [address]Dr. Yuki Diaz EGFR-NON AF UGANDAN 24 mL/min/1.73m2 Critically low >=[address] [facility] Comment on above: Performed By: #### CMP ####[facility] Vrlroebnmx3060 [place] [address]Dr. Yuki Diaz Globulin (S) [Mass/Vol] 4.0 g/dL Normal [facility] Comment on above: Performed By: #### CMP ####[facility] Yrltmrtcrm8918 [place] [address]Dr. Yuki Diaz Glucose [Mass/Vol] 154 mg/dL Critically high 74-[address] [facility] Comment on above: Performed By: #### CMP ####[facility] Ieuhazhquk1300 [place] [address]Dr. Yuki Diaz Potassium [Moles/Vol] 3.8 mmol/L Normal 3.5-5.[address] [facility] Comment on above: Performed By: #### CMP ####[facility] Gdiyshbnxp7140 [place] [address]Dr. Yuki Diaz Protein [Mass/Vol] 7.3 g/dL Normal 6.4-8.[address] [facility] Comment on above: Performed By: #### CMP ####[facility] Ubpergoavy1916 [place] [address]Dr. Yuki Diaz Sodium [Moles/Vol] 141 mmol/L Normal 136-[address] [facility] Comment on above: Performed By: #### CMP ####[facility] Gfimggilbx6601 [place] [address]Dr. Yuki Diaz Urea nitrogen [Mass/Vol] 35.0 mg/dL Critically high 7.0-18.0 [facility] Comment on above: Performed By: #### CMP ####[facility] ital Bshoucaefv5740 [place] [address]Dr. Yuki Diaz Urea nitrogen/Creatin ine [Mass ratio] 13.7 mg/mg Normal [facility] Comment on above: Performed By: #### CMP ####[facility] ital Jclyqiiiig4280 [place] [address]Dr. Yuki Diaz PROF 14(COMP METB)on 022 Albumin [Mass/Vol] 2.9 g/dL Critically low 3.4-5.0 [facility] Comment on above: Performed By: #### CMP ####[facility] ital Vazkzktfyl2372 [place] [address]Dr. Yuki Diaz Albumin/Globulin [Mass ratio] 0.8 {ratio} Normal [facility] Comment on above: Performed By: #### CMP ####[facility] ital Foukhptqmb9572 [place] [address]Dr. Yuki iDaz ALP [Catalytic activity/Vol] 96 U/L Normal 46-116 [facility] Comment on above: Performed By: #### CMP ####[facility] ital Tovhusedse4890 [place] [address]Dr. Yuki Diaz ALT [Catalytic activity/Vol] 23 U/L Normal 16-63 [facility] Comment on above: Performed By: #### CMP ####[facility] Caacadhncj5004 [place] [address]Dr. Yuki Diaz Anion gap [Moles/Vol] 11.6 mmol/L Normal [facility] Comment on above: Performed By: #### CMP ####[facility] Iinerqyihv1125 [place] [address]Dr. Yuki Diaz AST [Catalytic activity/Vol] 12 U/L Critically low 15-[address] [facility] Comment on above: Performed By: #### CMP ####[facility] Ijrpgedioo6574 [place] [address]Dr. Yuki Diaz Bilirubin [Mass/Vol] 0.7 mg/dL Normal 0.2-1.0 [facility] Comment on above: Performed By: #### CMP ####[facility] Ybtlqmkepn8342 [place] [address]Dr. Yuki Diaz Calcium [Mass/Vol] 8.7 mg/dL Normal 8.5-10.[address] [facility] Comment on above: Performed By: #### CMP ####[facility] ital Qhlcgenrcx0534 [place] [address]Dr. Yuki Diaz Chloride [Moles/Vol] 103 mmol/L Normal 98-[address] [facility] Comment on above: Performed By: #### CMP ####[facility] ital Wcyuuurjgp1443 [place] [address]Dr. Yuki Diaz CO2 [Moles/Vol] 32.5 mmol/L Critically high 21.0-32.0 [facility] Comment on above: Performed By: #### CMP ####[facility] ital Adctikndvx9653 [place] [address]Dr. Yuki Joe Creatinine [Mass/Vol] 2.35 mg/dL Critically high 0.70-1.[address] [facility] Comment on above: Performed By: #### CMP ####[facility] ital Ifggcvjxsz[address] [place], [place] [address]Dr. Yuki Diaz EGFR-AF UGANDAN 33 mL/min/1.73m2 Critically low >=[address] [facility] Comment on above: Performed By: #### CMP ####[facility] ital Apubjtdphb[address] [place], [place] [address]Dr. Yuki Joe EGFR-NON AF UGANDAN 27 mL/min/1.73m2 Critically low >=[address] [facility] Comment on above: Performed By: #### CMP ####[facility] Jxvzuvexok7807 [place] [address]Dr. Yuki Diaz Globulin (S) [Mass/Vol] 3.6 g/dL Normal [facility] Comment on above: Performed By: #### CMP ####[facility] ital Newhlrivhq0709 [place] [address]Dr. Yuki Diaz Glucose [Mass/Vol] 206 mg/dL Critically high 74-[address] [facility] Comment on above: Performed By: #### CMP ####[facility] Vjrmsxgmtc3321 [place] [address]Dr. Yuki Diaz Potassium [Moles/Vol] 4.1 mmol/L Normal 3.5-5.1 [facility] Comment on above: Performed By: #### CMP ####[facility] ital Zrloguzrcy6[address] [place], [place] [address]Dr. Yuki Diaz Protein [Mass/Vol] 6.5 g/dL Normal 6.4-8.[address] [facility] Comment on above: Performed By: #### CMP ####[facility] ital Skaexqwhpi7[address] [place], [place] [address]Dr. Yuki Diaz Sodium [Moles/Vol] 143 mmol/L Normal 136-[address] [facility] Comment on above: Performed By: #### CMP ####[facility] ital Crfqviugsh808[address] [place], [place] [address]Dr. Yuki Diaz Urea nitrogen [Mass/Vol] 34.0 mg/dL Critically high 7.0-18.0 [facility] Comment on above: Performed By: #### CMP ####[facility] Zoupwfvspy814[address] [place], [place] [address]Dr. Yuki Diaz Urea nitrogen/Creatin ine [Mass ratio] 14.5 mg/mg Normal [facility] Comment on above: Performed By: #### CMP ####[facility] ital Wuzplvngad375[address] [place], [place] [address]Dr. Yuki Diaz BNPon 02-03-2022 Natriuretic peptide B (Bld) [Mass/Vol] 3216.0 pg/mL Critically high <=1,800.[address] [facility] Comment on above: Result Comment: repeated Performed By: #### B FIRER TUNNEL KILN ####[facility] Xbnfeyjrue414[address] [place], [place] [address]Dr. Yuki Diaz PROF 14(COMP METB)on 022 Albumin [Mass/Vol] 3.0 g/dL Critically low 3.4-5.0 [facility] Comment on above: Performed By: #### CMP ####[facility] Tnimqwgacb2773 [place] [address]Dr. Yuki Diaz Albumin/Globulin [Mass ratio] 0.8 {ratio} Normal [facility] Comment on above: Performed By: #### CMP ####[facility] Zxqlfxeitg6330 [place] [address]Dr. Yuki Diaz ALP [Catalytic activity/Vol] 104 U/L Normal 46-[address] [facility] Comment on above: Performed By: #### CMP ####[facility] Twduwqimbq8776 [place] [address]Dr. Yuki Diaz ALT [Catalytic activity/Vol] 32 U/L Normal 16-[address] [facility] Comment on above: Performed By: #### CMP ####[facility] ital Msomsaasql7653 [place] [address]Dr. Yuki Diaz Anion gap [Moles/Vol] 9.3 mmol/L Normal [facility] Comment on above: Performed By: #### CMP ####[facility] ital Uhfjifpwbj9[address] [place], [place] [address]Dr. Yuki Diaz AST [Catalytic activity/Vol] 15 U/L Normal 15-[address] [facility] Comment on above: Performed By: #### CMP ####[facility] Hpvfqrvzvl3999 [place] [address]Dr. Monsealyssa Diaz Bilirubin [Mass/Vol] 0.9 mg/dL Normal 0.2-1.[address] [facility] Comment on above: Performed By: #### CMP ####[facility] ital Tiitecwvgo0772 [place] [address]Dr. Monsealyssa Diaz Calcium [Mass/Vol] 8.6 mg/dL Normal 8.5-10.[address] [facility] Comment on above: Performed By: #### CMP ####[facility] Yrdhhxppcl6189 [place] [address]Dr. Yuki Diaz Chloride [Moles/Vol] 104 mmol/L Normal 98-[address] [facility] Comment on above: Performed By: #### CMP ####[facility] ital Goobkubvio[address] [place], [place] [address]Dr. Yuki Joe CO2 [Moles/Vol] 35.9 mmol/L Critically high 21.0-32.[address] [facility] Comment on above: Performed By: #### CMP ####[facility] ital Mpeafnkpvw8645 [place] [address]Dr. Yuki Diaz Creatinine [Mass/Vol] 1.98 mg/dL Critically high 0.70-1.[address] [facility] Comment on above: Performed By: #### CMP ####[facility] Nfvmjevopc1840 [place] [address]Dr. Yuki Joe EGFR-AF UGANDAN 40 mL/min/1.73m2 Critically low >=[address] [facility] Comment on above: Performed By: #### CMP ####[facility] ital Mkamysskji3156 [place] [address]Dr. Monsealyssa Joe EGFR-NON AF UGANDAN 33 mL/min/1.73m2 Critically low >=[address] [facility] Comment on above: Performed By: #### CMP ####[facility] ital Etsosucubi2054 [place] [address]Dr. Yuki Diaz Globulin (S) [Mass/Vol] 3.9 g/dL Normal [facility] Comment on above: Performed By: #### CMP ####[facility] ital Ebioegaghv3086 [place] [address]Dr. Yuki Joe Glucose [Mass/Vol] 124 mg/dL Critically high 74-[address] [facility] Comment on above: Performed By: #### CMP ####[facility] ital Mrtoxzvntd7614 [place] [address]Dr. Yuki Joe Potassium [Moles/Vol] 4.2 mmol/L Normal 3.5-5.[address] [facility] Comment on above: Performed By: #### CMP ####[facility] ital Dgiqmlycsn0985 [place] [address]Dr. Yuki Diaz Protein [Mass/Vol] 6.9 g/dL Normal 6.4-8.[address] [facility] Comment on above: Performed By: #### CMP ####[facility] Ksafjmqktu3276 [place] [address]Dr. Yuki Diaz Sodium [Moles/Vol] 145 mmol/L Normal 136-[address] [facility] Comment on above: Performed By: #### CMP ####[facility] Uotujwnbwl7474 [place] [address]Dr. Yuki Diaz Urea nitrogen [Mass/Vol] 27.0 mg/dL Critically high 7.0-18.[address] [facility] Comment on above: Performed By: #### CMP ####[facility] Fvzuxoseec3418 [place] [address]Dr. Yuki Diaz Urea nitrogen/Creatin ine [Mass ratio] 13.6 mg/mg Normal [facility] Comment on above: Performed By: #### CMP ####[facility] Iibfkppmcp8267 [place] [address]Dr. Yuki Diaz BNPon 01-27-2022 Natriuretic peptide B (Bld) [Mass/Vol] 2090.0 pg/mL Critically high <=1,800.[address] [facility] Comment on above: Performed By: #### CMP, BNP ####[facility] Aqyscasbwj3751 [place] [address]Dr. Yuki Diaz CBC AUTO DIFFon 01-27-2022 BASO # 0.0 103/ul Normal 0.0-0.1 [facility] Comment on above: Performed By: #### CBC ####[facility] Icbrgwdbbn9454 [place] [address]Dr. Yuki Diaz Basophils/100 WBC (Bld) 0.2 % Normal 0.2-2.[address] [facility] Comment on above: Performed By: #### CBC ####[facility] ital Fnaxsumaru8114 [place] [address]Dr. Yuki Diaz EO # 0.2 103/ul Normal 0.0-0.[address] [facility] Comment on above: Performed By: #### CBC ####[facility] Mddkktrdwl9352 [place] [address]Dr. Yuki Diaz Eosinophils/100 WBC (Bld) 1.8 % Normal 0.9-7.[address] [facility] Comment on above: Performed By: #### CBC ####[facility] ital Sdmedjlavu3787 [place] [address]Dr. Yuki Diaz Erythrocyte distribution width (RBC) [Ratio] 13.4 % Normal 11.0-15.0 [facility] Comment on above: Performed By: #### CBC ####[facility] Xxbmmggcpn6770 [place] [address]Dr. Yuki Diaz Hematocrit (Bld) [Volume fraction] 32.6 % Critically low 42.0-54.0 [facility] Comment on above: Performed By: #### CBC ####[facility] Jtayfxrais[address] [place] [address]. Yuki Diaz Hemoglobin (Bld) [Mass/Vol] 10.4 g/dL Critically low 14.0-18.0 [facility] Comment on above: Performed By: #### CBC ####[facility] Eljucouaaz[address] [place] [address]. Yuki Diaz IG # 0.03 10e3/ul Normal 0.00-0.03 [facility] Comment on above: Performed By: #### CBC ####[facility] Wehllzmcrc[address] [place] [address]. Yuki Diaz IG % 0.3 % Normal 0.0-0.5 [facility] Comment on above: Performed By: #### CBC ####[facility] Bwayxqebwm038[address] [place], [place] [address]Dr. Yuki Diaz LYMPH # 1.2 103/ul Normal 1.2-3.[address] [facility] Comment on above: Performed By: #### CBC ####[facility] Sefhqwxgjg2110 [place] [address]Dr. Yuki Diaz Lymphocytes/100 WBC (Bld) 13.8 % Critically low 20.5-60.0 [facility] Comment on above: Performed By: #### CBC ####[facility] Huiozaxvay[address] [place], [place] [address]Dr. Yuki Diaz MANUAL DIFF REQ NO Normal [facility] Comment on above: Performed By: #### CBC ####[facility] Rfwgehourb2995 [place] [address]Dr. Yuki Diaz MCH (RBC) [Entitic mass] 31.9 pg Normal 25.9-34.[address] [facility] Comment on above: Performed By: #### CBC ####[facility] Idxrtwndel9274 [place] [address]Dr. Yuki Diaz MCHC (RBC) [Mass/Vol] 31.9 g/dL Normal 29.9-35.[address] [facility] Comment on above: Performed By: #### CBC ####[facility] Ncrtgocdqx5911 [place] [address]Dr. Monsealyssa Diaz MCV (RBC) [Entitic vol] 100.0 fL Critically high 80.0-94.[address] [facility] Comment on above: Performed By: #### CBC ####[facility] Yibvxtthoc46[address] [place], [place] [address]Dr. Yuki Diaz MONO # 0.9 103/ul Critically high 0.3-0.[address] [facility] Comment on above: Performed By: #### CBC ####[facility] Mohvjgcyfy3213 [place] [address]Dr. Monsealyssa Diaz Monocytes/100 WBC (Bld) 10.1 % Normal 1.7-12.[address] [facility] Comment on above: Performed By: #### CBC ####[facility] Gvhgezxciu9258 [place] [address]Dr. Yuki Diaz NEUT # 6.6 103/ul Critically high 1.4-6.[address] [facility] Comment on above: Performed By: #### CBC ####[facility] Ejgavzmtno2842 [place] [address]Dr. Monsealyssa Diaz Neutrophils/100 WBC (Bld) 73.8 % Normal 43.0-75.[address] [facility] Comment on above: Performed By: #### CBC ####[facility] Pdqsyrufxl[address] [place], [place] [address]Dr. Yuki Diaz Platelet mean volume (Bld) [Entitic vol] 10.3 fL Normal 9.5-13.[address] [facility] Comment on above: Performed By: #### CBC ####[facility] Frruqqmuyc8981 [place] [address]Dr. Yuki Diaz PLT 196 103/ul Normal 150-[address] [facility] Comment on above: Performed By: #### CBC ####[facility] Uqedxtwzhq9706 [place] [address]Dr. Monsealyssa Diaz RBC 3.26 106/ul Critically low 4.70-6.[address] [facility] Comment on above: Performed By: #### CBC ####[facility] Xzaeldudsz2523 [place] [address]Dr. Monsealyssa Joe WBC 9.0 103/ul Normal 4.0-11.[address] [facility] Comment on above: Performed By: #### CBC ####[facility] Inhpswltxp3399 [place] [place] [address]Dr. Yuki Diaz POINT OF CARE GLUCOSEon 01-06 Glucose [Mass/Vol] 155 mg/dL Critically high 74-106 [facility] Comment on above: Performed By: #### POCGLUC ####[facility] Vxfntuuyon50[address] [place] [address]Dr. Yuki Diaz Glucose [Mass/Vol] 120 mg/dL Critically high 74-[address] [facility] Comment on above: Performed By: #### POCGLUC ####[facility] Wojtwccqbe0399 [place] [address]Dr. Yuki Diaz PROF 14(COMP METB)on 022 Albumin [Mass/Vol] 2.8 g/dL Critically low 3.4-5.0 [facility] Comment on above: Performed By: #### CMP, BNP ####[facility] Zwfclyfszj1464 [place] [address]Dr. Yuki Diaz Albumin/Globulin [Mass ratio] 0.8 {ratio} Normal [facility] Comment on above: Performed By: #### CMP, BNP ####[facility] Fzuwzupats6263 [place] [id number]. Yuki Diaz ALP [Catalytic activity/Vol] 96 U/L Normal 46-[address] [facility] Comment on above: Performed By: #### CMP, BNP ####[facility] Xwcymuprtg4505 [place] [id number]. Yuki Diaz ALT [Catalytic activity/Vol] 27 U/L Normal 16-63 [facility] Comment on above: Performed By: #### CMP, BNP ####[facility] Yispovwmvc5752 [place] [id number]. Yuki Diaz Anion gap [Moles/Vol] 8.7 mmol/L Normal [facility] Comment on above: Performed By: #### CMP, BNP ####[facility] Hrgdgdodzy9297 [place] [id number]. Yuki Diaz AST [Catalytic activity/Vol] 17 U/L Normal 15-37 [facility] Comment on above: Performed By: #### CMP, BNP ####[facility] Tohmugqvuf9085 [place] [address]Dr. Yuki Diaz Bilirubin [Mass/Vol] 0.8 mg/dL Normal 0.2-1.0 [facility] Comment on above: Performed By: #### CMP, BNP ####[facility] Qulakghxvp0330 [place] [address]Dr. Yuki Diaz Calcium [Mass/Vol] 8.2 mg/dL Critically low 8.5-10.1 [facility] Comment on above: Performed By: #### CMP, BNP ####[facility] Nqazucngih7425 [place] [address]Dr. Yuki Diaz Chloride [Moles/Vol] 104 mmol/L Normal 98-[address] [facility] Comment on above: Performed By: #### CMP, BNP ####[facility] Phgqbnpdjg7578 [place] [id number]. Yuki Diaz CO2 [Moles/Vol] 37.3 mmol/L Critically high 21.0-32.[address] [facility] Comment on above: Performed By: #### CMP, BNP ####[facility] Htmxnskmlz2480 [place] [id number]. Yuki Diaz Creatinine [Mass/Vol] 1.90 mg/dL Critically high 0.70-1.[address] [facility] Comment on above: Performed By: #### CMP, BNP ####[facility] Yowoidmxuu1613 [place] [address]Dr. Yuki Diaz EGFR-AF UGANDAN 42 mL/min/1.73m2 Critically low >=[address] [facility] Comment on above: Performed By: #### CMP, BNP ####[facility] Ztnwshjauz[address] [place], [place] [address]Dr. Yuki Diaz EGFR-NON AF UGANDAN 34 mL/min/1.73m2 Critically low >=[address] [facility] Comment on above: Performed By: #### CMP, BNP ####[facility] Dzbltsifyw[address] [place], [place] [address]Dr. Yuki Diaz Globulin (S) [Mass/Vol] 3.5 g/dL Normal [facility] Comment on above: Performed By: #### CMP, BNP ####[facility] Ojrlyywkxv[address] [place], [place] [address]Dr. Yuki Diaz Glucose [Mass/Vol] 44 mg/dL Critically low 74-[address] [facility] Comment on above: Result Comment: Test Repeated. Critical Value Verified Performed By: #### C MP, BNP ####[facility] Efyspzjsdm995[address] [place], [place] [address]Dr. Yuki Diaz Potassium [Moles/Vol] 3.0 mmol/L Critically low 3.5-5.[address] [facility] Comment on above: Performed By: #### CMP, BNP ####[facility] Huzfhngerv[address] [place], [place] [address]Dr. Yuki Diaz Protein [Mass/Vol] 6.3 g/dL Critically low 6.4-8.[address] [facility] Comment on above: Performed By: #### CMP, BNP ####[facility] Ykxwmszavw50[address] [place], [place] [address]Dr. Yuki Diaz Sodium [Moles/Vol] 147 mmol/L Critically high 136-[address] [facility] Comment on above: Performed By: #### CMP, BNP ####[facility] Bgsnikmmqh8[address] [place], [place] [address]Dr. Yuki Diaz Urea nitrogen [Mass/Vol] 33.0 mg/dL Critically high 7.0-18.0 [facility] Comment on above: Performed By: #### CMP, BNP ####[facility] Jdqsvjyyek[address] [place], [place] [address]Dr. Yuki Diaz Urea nitrogen/Creatin ine [Mass ratio] 17.4 mg/mg Normal [facility] Comment on above: Performed By: #### CMP, BNP ####[facility] Hvwppcviwx114[address] [place], [place] [address]Dr. Yuki Diaz BNPon 01-26-2022 Natriuretic peptide B (Bld) [Mass/Vol] 3997.0 pg/mL Critically high <=1,800.[address] [facility] Comment on above: Performed By: #### BNP, CMP ####[facility] Oogosgwheg66[address] [place], [place] [address]Dr. Yuki Diaz CBC AUTO DIFFon 01-26-2022 BASO # 0.0 103/ul Normal 0.0-0.1 [facility] Comment on above: Performed By: #### CBC ####[facility] Pqvemqxnpx209[address] [place], [place] [address]Dr. Yuki Diaz Basophils/100 WBC (Bld) 0.2 % Normal 0.2-2.0 [facility] Comment on above: Performed By: #### CBC ####[facility] ital Ecvapuekdp1800[address] [place], [place] [address]Dr. Yuki Diaz EO # 0.2 103/ul Normal 0.0-0.[address] [facility] Comment on above: Performed By: #### CBC ####[facility] ital Wbvquqcalz311[address] [place], [place] [address]Dr. Yuki Diaz Eosinophils/100 WBC (Bld) 1.6 % Normal 0.9-7.[address] [facility] Comment on above: Performed By: #### CBC ####[facility] Sejbotecmb7[address] [place], [place] [address]Dr. Yuki Diaz Erythrocyte distribution width (RBC) [Ratio] 13.5 % Normal 11.0-15.[address] [facility] Comment on above: Performed By: #### CBC ####[facility] Vymnabmwnu8839 [place] [address]Dr. Yuki Diaz Hematocrit (Bld) [Volume fraction] 34.9 % Critically low 42.0-54.0 [facility] Comment on above: Performed By: #### CBC ####[facility] Uyhgjgludv3823 [place] [address]Dr. Yuki Diaz Hemoglobin (Bld) [Mass/Vol] 11.3 g/dL Critically low 14.0-18.0 [facility] Comment on above: Performed By: #### CBC ####[facility] Rmawdewggg7621 [place] [address]Dr. Yuki Diaz IG # 0.03 10e3/ul Normal 0.00-0.03 [facility] Comment on above: Performed By: #### CBC ####[facility] Ozvkwswspp3544 [address] Monsealyssa Diaz IG % 0.3 % Normal 0.0-0.5 [facility] Comment on above: Performed By: #### CBC ####[facility] Mvhzlnlrno3541 [address] Yuki Diaz LYMPH # 1.5 103/ul Normal 1.2-3.8 [facility] Comment on above: Performed By: #### CBC ####[facility] Evpnizchxt3030 [place] [address]Dr. Monsealyssa Diaz Lymphocytes/100 WBC (Bld) 15.1 % Critically low 20.5-60.0 [facility] Comment on above: Performed By: #### CBC ####[facility] Ignlsbimqw3457 [place] [address]Dr. Monsealyssa Diaz MANUAL DIFF REQ NO Normal [facility] Comment on above: Performed By: #### CBC ####[facility] Jqsorozdmr4684 [place] [address]Dr. Yuki Diaz MCH (RBC) [Entitic mass] 32.2 pg Normal 25.9-34.0 [facility] Comment on above: Performed By: #### CBC ####[facility] ital Ygvvnqnopc8804 [place] [address]Dr. Yuki Joe MCHC (RBC) [Mass/Vol] 32.4 g/dL Normal 29.9-35.2 [facility] Comment on above: Performed By: #### CBC ####[facility] ital Bwxkqgwqcv3495 [place] [address]Dr. Yuki Diaz MCV (RBC) [Entitic vol] 99.4 fL Critically high 80.0-94.0 [facility] Comment on above: Performed By: #### CBC ####[facility] ital Lpiwpmezho3358 [place] [address]Dr. Yuki Diaz MONO # 1.1 103/ul Critically high 0.3-0.8 [facility] Comment on above: Performed By: #### CBC ####[facility] Ofkckcfhip0015 [place] [address]Dr. Yuki Diaz Monocytes/100 WBC (Bld) 10.7 % Normal 1.7-12.0 [facility] Comment on above: Performed By: #### CBC ####[facility] Quwrbevsod645[address] [place], [place] [address]Dr. Yuki Diaz NEUT # 7.3 103/ul Critically high 1.4-6.5 [facility] Comment on above: Performed By: #### CBC ####[facility] Zovhetiqvm9[address] [place], [place] [address]Dr. Yuki Diaz Neutrophils/100 WBC (Bld) 72.1 % Normal 43.0-75.[address] [facility] Comment on above: Performed By: #### CBC ####[facility] ital Hezoekdacs947[address] [place], [place] [address]Dr. Yuki Diaz Platelet mean volume (Bld) [Entitic vol] 10.2 fL Normal 9.5-13.[address] [facility] Comment on above: Performed By: #### CBC ####[facility] ital Dwhgamgffw206[address] [place], [place] [address]Dr. Yuki Diaz PLT 208 103/ul Normal 150-[address] [facility] Comment on above: Performed By: #### CBC ####[facility] ital Vyacwfhzyw7878 [place] [id number]. Monsealyssa Joe RBC 3.51 106/ul Critically low 4.70-6.10 [facility] Comment on above: Performed By: #### CBC ####[facility] Ztchaqqjdl3177 [place] [id number]. Yuki Diaz WBC 10.1 103/ul Normal 4.0-11.0 [facility] Comment on above: Performed By: #### CBC ####[facility] ital Wtwgekviwl8785 [place] [id number]. Yuki Diaz POINT OF CARE GLUCOSEon 01-06 Glucose [Mass/Vol] 205 mg/dL Critically high 74-106 [facility] Comment on above: Performed By: #### POCGLUC ####[facility] Lyuvrhugex1135 [place] [address]Dr. Yuki Diaz Glucose [Mass/Vol] 210 mg/dL Critically high 74-106 [facility] Comment on above: Performed By: #### POCGLUC ####[facility] Uuljkusgtk3991 [place] [address]Dr. Yuki Diaz Glucose [Mass/Vol] 160 mg/dL Critically high 74-106 [facility] Comment on above: Performed By: #### POCGLUC ####[facility] Ejndlgecex3423 [place] [address]Dr. Yuki Diaz PROF 14(COMP METB)on 022 Albumin [Mass/Vol] 3.0 g/dL Critically low 3.4-5.0 [facility] Comment on above: Performed By: #### BNP, CMP ####[facility] Ylqenuwkhm9309 [place] [address]Dr. Yuki Diaz Albumin/Globulin [Mass ratio] 0.8 {ratio} Normal [facility] Comment on above: Performed By: #### BNP, CMP ####[facility] Ewbudavdgv7485 [place] [address]Dr. Yuki Diaz ALP [Catalytic activity/Vol] 106 U/L Normal 46-116 [facility] Comment on above: Performed By: #### BNP, CMP ####[facility] Cclzcclouy4630 [place] [address]Dr. Yuki Diaz ALT [Catalytic activity/Vol] 33 U/L Normal 16-[address] [facility] Comment on above: Performed By: #### BNP, CMP ####[facility] Eftdjhffzr9814 [place] [address]Dr. Yuki Diaz Anion gap [Moles/Vol] 6.1 mmol/L Normal [facility] Comment on above: Performed By: #### BNP, CMP ####[facility] Rurvrmyvpb7954 [place] [address]Dr. Yuki Joe AST [Catalytic activity/Vol] 20 U/L Normal 15-37 [facility] Comment on above: Performed By: #### BNP, CMP ####[facility] Brcwelovpp[address] [place], [place] [address]Dr. Yuki Diaz Bilirubin [Mass/Vol] 0.8 mg/dL Normal 0.2-1.0 [facility] Comment on above: Performed By: #### BNP, CMP ####[facility] Zagopvahnw[address] [place], [place] [address]Dr. Yuki Joe Calcium [Mass/Vol] 8.4 mg/dL Critically low 8.5-10.[address] [facility] Comment on above: Performed By: #### BNP, CMP ####[facility] Ubjvzrofvw199[address] [place], [place] [address]Dr. Yuki Diaz Chloride [Moles/Vol] 105 mmol/L Normal 98-[address] [facility] Comment on above: Performed By: #### BNP, CMP ####[facility] Ccyjfqziya49[address] [place], [place] [address]Dr. Yuki Diaz CO2 [Moles/Vol] 40.2 mmol/L Critically high 21.0-32.[address] [facility] Comment on above: Performed By: #### BNP, CMP ####[facility] Nprkdbaxjg177[address] [place], [place] [address]Dr. Yuki Diaz Creatinine [Mass/Vol] 1.88 mg/dL Critically high 0.70-1.[address] [facility] Comment on above: Performed By: #### BNP, CMP ####[facility] Fsgufymtes3737 [place] [address]Dr. Yuki Diaz EGFR-AF UGANDAN 42 mL/min/1.73m2 Critically low >=60 [facility] Comment on above: Performed By: #### BNP, CMP ####[facility] Hsvozahgva2486 [place] [address]Dr. Yuki Diaz EGFR-NON AF UGANDAN 35 mL/min/1.73m2 Critically low >=[address] [facility] Comment on above: Performed By: #### BNP, CMP ####[facility] Jtmswkfvuo4919 [place] [address]Dr. Yuki Joe Globulin (S) [Mass/Vol] 3.6 g/dL Normal [facility] Comment on above: Performed By: #### BNP, CMP ####[facility] Dzdrctjqju38[address] [place], [place] [address]Dr. Monsealyssa Joe Glucose [Mass/Vol] 62 mg/dL Critically low 74-106 [facility] Comment on above: Performed By: #### BNP, CMP ####[facility] Bqufpkjejo514[address] [place], [place] [address]Dr. Yuki Joe Potassium [Moles/Vol] 3.3 mmol/L Critically low 3.5-5.[address] [facility] Comment on above: Performed By: #### BNP, CMP ####[facility] Ehssqfnvgl300[address] [place], [place] [address]Dr. Yuki Joe Protein [Mass/Vol] 6.6 g/dL Normal 6.4-8.[address] [facility] Comment on above: Performed By: #### BNP, CMP ####[facility] Gcgziqvgvj7[address] [place], [place] [address]Dr. Monsealyssa Joe Sodium [Moles/Vol] 148 mmol/L Critically high 136-[address] [facility] Comment on above: Performed By: #### BNP, CMP ####[facility] Kpakhzlzdz[address] [place], [place] [address]Dr. Monsealyssa Joe Urea nitrogen [Mass/Vol] 29.0 mg/dL Critically high 7.0-18.[address] [facility] Comment on above: Performed By: #### BNP, CMP ####[facility] Nafjikswti50[address] [place], [place] [address]Dr. Yuki Diaz Urea nitrogen/Creatin ine [Mass ratio] 15.4 mg/mg Normal [facility] Comment on above: Performed By: #### BNP, CMP ####[facility] Zojrixenic697[address] [place], [place] [address]Dr. Yuki Diaz PROF CHEM 8 (BAS METB)on Anion gap [Moles/Vol] 11.1 mmol/L Normal [facility] Comment on above: Performed By: #### BMP ####[facility] Tnyksltmyg63[address] [place], [place] [address]Dr. Yuki Diaz Calcium [Mass/Vol] 8.1 mg/dL Critically low 8.5-10.1 [facility] Comment on above: Performed By: #### BMP ####[facility] Yjewebljhs848[address] [place], [place] [address]Dr. Yuki Diaz Chloride [Moles/Vol] 102 mmol/L Normal 98-[address] [facility] Comment on above: Performed By: #### BMP ####[facility] ital Sqfsuhuriq[address] [place], [place] [address]Dr. Yuki Diaz CO2 [Moles/Vol] 35.4 mmol/L Critically high 21.0-32.[address] [facility] Comment on above: Performed By: #### BMP ####[facility] Ahbdwifdvg5023[address] [place], [place] [address]Dr. Yuki Diaz Creatinine [Mass/Vol] 1.88 mg/dL Critically high 0.70-1.[address] [facility] Comment on above: Performed By: #### BMP ####[facility] ital Yvovwxoxdd3[address] [place], [place] [address]Dr. Yuki Diaz EGFR-AF UGANDAN 42 mL/min/1.73m2 Critically low >=[address] [facility] Comment on above: Performed By: #### BMP ####[facility] Etpywrvfdq28[address] [place], [place] [address]Dr. Yuki Diaz EGFR-NON AF UGANDAN 35 mL/min/1.73m2 Critically low >=[address] [facility] Comment on above: Performed By: #### BMP ####[facility] ital Jdkjrceusg9351 [place] [address]Dr. Yuki Diaz Glucose [Mass/Vol] 208 mg/dL Critically high 74-[address] [facility] Comment on above: Performed By: #### BMP ####[facility] ital Xzdmejuoej2279 [place] [address]Dr. Yuki Diaz Potassium [Moles/Vol] 3.5 mmol/L Normal 3.5-5.1 [facility] Comment on above: Performed By: #### BMP ####[facility] ital Dwszfhtwwn8404 [place] [address]Dr. Yuki Diaz Sodium [Moles/Vol] 145 mmol/L Normal 136-[address] [facility] Comment on above: Performed By: #### BMP ####[facility] Iehfkcvrot3132 [place] [address]Dr. Yuki Diaz Urea nitrogen [Mass/Vol] 33.0 mg/dL Critically high 7.0-18.0 [facility] Comment on above: Performed By: #### BMP ####[facility] Huzkpujklb9221 [place] [address]Dr. Yuki Diaz Urea nitrogen/Creatin ine [Mass ratio] 17.6 mg/mg Normal [facility] Comment on above: Performed By: #### BMP ####[facility] ital Mqiasigisu7655 [place] [address]Dr. Yuki Diaz PROTIMEon 01-26-2022 INR Coag (PPP) [Relative time] 1.15 {INR} Normal [facility] Comment on above: Performed By: #### PT ####[facility] kacie Gublezixkq4659 [place] [address]Dr. Yuki Diaz INR GUIDELINES SEE BELOW Normal [facility] Comment on above: Result Comment: DESIRED INR: 2.0 - 3.0 C ONDITIONS NOT LISTED BELOW 2.5 - 3.5 FOR PROSTHETIC HEART VALVE REPLACEMENT 2.5 - 3.5 RECURRENT THROMBOSIS Performed By: #### P T ####[facility] Autrntqcfz5[address] [place], [place] [address]Dr. Yuki Diaz PT Coag (PPP) [Time] 12.3 s Critically high 9.0-11.6 [facility] Comment on above: Performed By: #### PT ####[facility] kacie Qfxyedzopn200[address] [place], [place] [address]Dr. Yuki Diaz BNPon 01-25-2022 Natriuretic peptide B (Bld) [Mass/Vol] 3414.0 pg/mL Critically high <=1,800.0 [facility] Comment on above: Performed By: #### BNP, BMP ####[facility] Ugmnxnrpfc[address] [place], [place] [address]Dr. Yuki Diaz CBC AUTO DIFFon 01-25-2022 BASO # 0.0 103/ul Normal 0.0-0.1 [facility] Comment on above: Performed By: #### CBC ####[facility] Ioalycwaxj01[address] [place], [place] [address]Dr. Yuki Diaz Basophils/100 WBC (Bld) 0.3 % Normal 0.2-2.0 [facility] Comment on above: Performed By: #### CBC ####[facility] Wmzvgeicyz425[address] [place], [place] [address]Dr. Yuki Diaz EO # 0.2 103/ul Normal 0.0-0.[address] [facility] Comment on above: Performed By: #### CBC ####[facility] Ugdodcxuxe[address] [place] [address]. Yuki Diaz Eosinophils/100 WBC (Bld) 1.9 % Normal 0.9-7.[address] [facility] Comment on above: Performed By: #### CBC ####[facility] Lyjxhxuqsv69[address] [place], [place] [address]Dr. Yuki Diaz Erythrocyte distribution width (RBC) [Ratio] 13.2 % Normal 11.0-15.[address] [facility] Comment on above: Performed By: #### CBC ####[facility] Ntskvvnteg[address] [place], [place] [address]Dr. Monsealyssa Diaz Hematocrit (Bld) [Volume fraction] 33.8 % Critically low 42.0-54.0 [facility] Comment on above: Performed By: #### CBC ####[facility] Ypodjkpkvt8816 [place] [address]Dr. Monsealyssa Diaz Hemoglobin (Bld) [Mass/Vol] 10.8 g/dL Critically low 14.0-18.[address] [facility] Comment on above: Performed By: #### CBC ####[facility] Jpgmdxjmgw2482 [place] [address]Dr. Yuki Diaz IG # 0.04 10e3/ul Critically high 0.00-0.03 [facility] Comment on above: Performed By: #### CBC ####[facility] Wgirjiwakd1989 [place] [address]Dr. Yuki Diaz IG % 0.4 % Normal 0.0-0.5 [facility] Comment on above: Performed By: #### CBC ####[facility] Nvbfoapoiu[address] Yuki Diaz LYMPH # 1.5 103/ul Normal 1.2-3.[address] [facility] Comment on above: Performed By: #### CBC ####[facility] Ihxwrvmwud1218 [place] [address]Dr. Yuki Diaz Lymphocytes/100 WBC (Bld) 14.8 % Critically low 20.5-60.[address] [facility] Comment on above: Performed By: #### CBC ####[facility] Pyrkalsnoa0542 [place] [address]Dr. Yuki Diaz MANUAL DIFF REQ NO Normal [facility] Comment on above: Performed By: #### CBC ####[facility] Gjfnjmuruf9694 [place] [address]DrBebo Diaz MCH (RBC) [Entitic mass] 31.9 pg Normal 25.9-34.[address] [facility] Comment on above: Performed By: #### CBC ####[facility] Anwqybjsmw8016 [place] [address]Dr. Yuki Joe MCHC (RBC) [Mass/Vol] 32.0 g/dL Normal 29.9-35.[address] [facility] Comment on above: Performed By: #### CBC ####[facility] Qpvfuuzymo1419 [place] [address]Dr. Yuki Diaz MCV (RBC) [Entitic vol] 99.7 fL Critically high 80.0-94.[address] [facility] Comment on above: Performed By: #### CBC ####[facility] ital Zeskvqjmfx2327 [place] [address]Dr. Yuki Joe MONO # 1.0 103/ul Critically high 0.3-0.[address] [facility] Comment on above: Performed By: #### CBC ####[facility] Heexsdefgu8999 [place] [address]Dr. Yuki Diaz Monocytes/100 WBC (Bld) 9.8 % Normal 1.7-12.[address] [facility] Comment on above: Performed By: #### CBC ####[facility] Yeuhhowalm3575 [place] [address]Dr. Yuki Joe NEUT # 7.1 103/ul Critically high 1.4-6.[address] [facility] Comment on above: Performed By: #### CBC ####[facility] Urotvbfbvx5731 [place] [address]Dr. Yuki Joe Neutrophils/100 WBC (Bld) 72.8 % Normal 43.0-75.[address] [facility] Comment on above: Performed By: #### CBC ####[facility] Wziypwwyho5708 [place] [address]Dr. Yuki Joe Platelet mean volume (Bld) [Entitic vol] 10.4 fL Normal 9.5-13.[address] [facility] Comment on above: Performed By: #### CBC ####[facility] Yxenoamdmr6479 [place] [address]Dr. Monsealyssa Diaz PLT 204 103/ul Normal 150-[address] [facility] Comment on above: Performed By: #### CBC ####[facility] Dccmbchwcj0065 [place] [address]Dr. Yuki Diaz RBC 3.39 106/ul Critically low 4.70-6.10 [facility] Comment on above: Performed By: #### CBC ####[facility] Bmlsmnwpys8940 [place] [address]Dr. Yuki Diaz WBC 9.8 103/ul Normal 4.0-11.[address] [facility] Comment on above: Performed By: #### CBC ####[facility] Eoikutpnxf5118 [place] [address]Dr. Yuki Diaz POINT OF CARE GLUCOSEon -09 07-2021 Glucose [Mass/Vol] 194 mg/dL Critically high 74-106 [facility] Comment on above: Performed By: #### POCGLUC ####[facility] Kjzpmtvujz2201 [place] [address]Dr. Yuki Diaz Glucose [Mass/Vol] 196 mg/dL Critically high 74-106 [facility] Comment on above: Performed By: #### POCGLUC ####[facility] Jpickotdke[address] [place], [place] [address]Dr. Yuki Diaz Glucose [Mass/Vol] 253 mg/dL Critically high 74-106 [facility] Comment on above: Performed By: #### POCGLUC ####[facility] Kyftnfpahe2795 [place] [address]Dr. Yuki Diaz Glucose [Mass/Vol] 106 mg/dL Normal 74-106 [facility] Comment on above: Performed By: #### POCGLUC ####[facility] Sqjgctcbut[address] [place], [place] [address]Dr. Yuki Diaz POTASSIUMon 01-25-2022 Potassium [Moles/Vol] 3.4 mmol/L Critically low 3.5-5.[address] [facility] Comment on above: Performed By: #### K ####[facility] al Wvbebyfpbo36[address] [place] [address]Dr. Yuki Diaz PROF CHEM 8 (BAS METB)on Anion gap [Moles/Vol] 9.0 mmol/L Normal [facility] Comment on above: Performed By: #### BMP ####[facility] ital Nybqxzfigw4688 [place] [address]Dr. Yuki Diaz Calcium [Mass/Vol] 8.3 mg/dL Critically low 8.5-10.[address] [facility] Comment on above: Performed By: #### BMP ####[facility] ital Glnwljngjb3221 [place] [address]Dr. Yuki Diaz Chloride [Moles/Vol] 103 mmol/L Normal 98-[address] [facility] Comment on above: Performed By: #### BMP ####[facility] ital Tfzyirboia3085 [place] [address]Dr. Yuki Diaz CO2 [Moles/Vol] 35.9 mmol/L Critically high 21.0-32.[address] [facility] Comment on above: Performed By: #### BMP ####[facility] Zmkxnmqeth8014 [place] [address]Dr. Yuki Diaz Creatinine [Mass/Vol] 1.94 mg/dL Critically high 0.70-1.[address] [facility] Comment on above: Performed By: #### BMP ####[facility] Acmbzhfgou7589 [place] [address]Dr. Yuki Diaz EGFR-AF UGANDAN 41 mL/min/1.73m2 Critically low >=[address] [facility] Comment on above: Performed By: #### BMP ####[facility] Jbeieojxhc4184 [place] [address]Dr. Yuki Diaz EGFR-NON AF UGANDAN 34 mL/min/1.73m2 Critically low >=[address] [facility] Comment on above: Performed By: #### BMP ####[facility] ital Iuowouyqls5242 [place] [address]Dr. Yuki Diaz Glucose [Mass/Vol] 181 mg/dL Critically high 74-[address] [facility] Comment on above: Performed By: #### BMP ####[facility] Wkgdpessjr6667 [place] [address]Dr. Yuki Diaz Potassium [Moles/Vol] 2.9 mmol/L Critically low 3.5-5.[address] [facility] Comment on above: Result Comment: TEST REPEATED CRITICAL V ALUE VERIFIED Performed By: #### B MP ####[facility] Hwjyfgeehr39[address] [place] [address]Dr. Yuki Diaz Sodium [Moles/Vol] 145 mmol/L Normal 136-145 [facility] Comment on above: Performed By: #### BMP ####[facility] ital Xhcxbvprxq1758 [place] [address]Dr. Yuki Diaz Urea nitrogen [Mass/Vol] 30.0 mg/dL Critically high 7.0-18.0 [facility] Comment on above: Performed By: #### BMP ####[facility] ital Wcghllufic[address] [place], [place] [address]Dr. Yuki Joe Urea nitrogen/Creatin ine [Mass ratio] 15.5 mg/mg Normal [facility] Comment on above: Performed By: #### BMP ####[facility] ital Kghapytqqq[address] [place], [place] [address]Dr. Yuki Joe Anion gap [Moles/Vol] 9.0 mmol/L Normal [facility] Comment on above: Performed By: #### BNP, BMP ####[facility] Zwpwkczuqy446[address] [place], [place] [address]Dr. Yuki Joe Calcium [Mass/Vol] 8.3 mg/dL Critically low 8.5-10.1 [facility] Comment on above: Performed By: #### BNP, BMP ####[facility] Vhpnxdwxck56[address] [place], [place] [address]Dr. Yuki Joe Chloride [Moles/Vol] 104 mmol/L Normal 98-[address] [facility] Comment on above: Performed By: #### BNP, BMP ####[facility] Ngsivwubbk5545 [place] [address]Dr. Yuki Diaz CO2 [Moles/Vol] 37.0 mmol/L Critically high 21.0-32.[address] [facility] Comment on above: Performed By: #### BNP, BMP ####[facility] Wxmlabfmjl679[address] [place], [place] [address]Dr. Yuki Diaz Creatinine [Mass/Vol] 2.03 mg/dL Critically high 0.70-1.[address] [facility] Comment on above: Performed By: #### BNP, BMP ####[facility] Qntpaynenl9932 [place] [address]Dr. Yuki Diaz EGFR-AF UGANDAN 39 mL/min/1.73m2 Critically low >=60 [facility] Comment on above: Performed By: #### BNP, BMP ####[facility] Msxukztymm0902 [place] [id number]. Yuki Diaz EGFR-NON AF UGANDAN 32 mL/min/1.73m2 Critically low >=60 [facility] Comment on above: Performed By: #### BNP, BMP ####[facility] Mjzzsuooha6312 [place] [address]Dr. Monsealyssa Joe Glucose [Mass/Vol] 102 mg/dL Normal 74-106 [facility] Comment on above: Performed By: #### BNP, BMP ####[facility] Ajxcgztxjj1329 [place] [address]Dr. Yuki Diaz Potassium [Moles/Vol] 3.0 mmol/L Critically low 3.5-5.1 [facility] Comment on above: Performed By: #### BNP, BMP ####[facility] Owbofqzlmc[address] [place], [place] [address]Dr. Monsealyssa Joe Sodium [Moles/Vol] 147 mmol/L Critically high 136-145 [facility] Comment on above: Performed By: #### BNP, BMP ####[facility] Bxmgkjsgbe6914 [place] [address]Dr. Monsealyssa Joe Urea nitrogen [Mass/Vol] 31.0 mg/dL Critically high 7.0-18.0 [facility] Comment on above: Performed By: #### BNP, BMP ####[facility] Sfbumbkvjf1494 [place] [address]Dr. Monsealyssa Joe Urea nitrogen/Creatin ine [Mass ratio] 15.3 mg/mg Normal [facility] Comment on above: Performed By: #### BNP, BMP ####[facility] Vqseofmrhk0412 [place] [address]Dr. Monsealyssa Joe TROPONIN, HIGH SENSITIVITYon 01-25-2022 HSTROP 38.8 pg/mL Normal 4.0-76.1 [facility] Comment on above: Result Comment: CUT-OFF POINTS HAVE BEEN ESTABLISHED BASED ON THE FOURTH UNIVERSAL DEFINITIONS OF MYOCARDIALINFARCTION. THE UPPER REFERENCE LIMIT (URL) OF TROPONIN, DEFINED THE 99TH PERCENTILE OFcTnI DISTRIBUTION IN A REFERENCE POPULATION, HAS BEEN CONFIRMED THE DECISION THRESHOLDFOR [place] DIAGNOSIS. Performed By: #### H STROPN ####[facility] Lbhuytqrgn500[address] [place] [address]Dr. Yuki Diaz BNPon 01-24-2022 Natriuretic peptide B (Bld) [Mass/Vol] 3429.0 pg/mL Critically high <=1,800.0 [facility] Comment on above: Performed By: #### HSTROPN, CMADM, BNP # ###[facility] Kcztmtalbu370[address] [place], [place] [address]Dr. Yuki Diaz CARDIAC RACHEL ADMITon 022 CK [Catalytic activity/Vol] 108 U/L Normal 39-[address] [facility] Comment on above: Performed By: #### HSTROPN, CMADM, BNP # ###[facility] Fmoniolblv439[address] [place], [place] [address]Dr. Yuki Diaz CK.MB [Mass/Vol] 2.44 ng/mL Normal <=3.[address] [facility] Comment on above: Performed By: #### HSTROPN, CMADM, BNP # ###[facility] Udokedvskf204[address] [place], [place] [address]Dr. Yuik Diaz DILSHAD 177 ng/mL Critically high 16-[address] [facility] Comment on above: Performed By: #### HSTROPN, CMADM, BNP # ###[facility] Tifpvcdodm4742 [place] [address]Dr. Yuki Diaz CBC AUTO DIFFon 01-24-2022 BASO # 0.0 103/ul Normal 0.0-0.[address] [facility] Comment on above: Performed By: #### CBC ####[facility] Iiikfbafst87[address] [place], [place] [address]Dr. Yuki Diaz Basophils/100 WBC (Bld) 0.3 % Normal 0.2-2.0 [facility] Comment on above: Performed By: #### CBC ####[facility] ital Blwrvkkpsj5582 [address]Bebo Yuki Diaz EO # 0.2 103/ul Normal 0.0-0.[address] [facility] Comment on above: Performed By: #### CBC ####[facility] ital Peontdntkl1588 [address] Yuki Diaz Eosinophils/100 WBC (Bld) 1.7 % Normal 0.9-7.0 [facility] Comment on above: Performed By: #### CBC ####[facility] ital Jmeqgcfvoj6148 [address] Yuki Diaz Erythrocyte distribution width (RBC) [Ratio] 13.5 % Normal 11.0-15.0 [facility] Comment on above: Performed By: #### CBC ####[facility] Djioiowlts08[address] Monsealyssa Diaz Hematocrit (Bld) [Volume fraction] 33.3 % Critically low 42.0-54.0 [facility] Comment on above: Performed By: #### CBC ####[facility] Qmrvoesvdq[address] [place], [place] [address]Bebo Yuki Diaz Hemoglobin (Bld) [Mass/Vol] 10.8 g/dL Critically low 14.0-18.0 [facility] Comment on above: Performed By: #### CBC ####[facility] Htyhirjwcg6904 [address] Yuki Diaz IG # 0.04 10e3/ul Critically high 0.00-0.03 [facility] Comment on above: Performed By: #### CBC ####[facility] Okkbcxsbzx2687 [address]Bebo Monsealyssa Diaz IG % 0.4 % Normal 0.0-0.[address] [facility] Comment on above: Performed By: #### CBC ####[facility] Rhngrfbans[address] [place], [place] [address]Bebo Diaz LYMPH # 1.3 103/ul Normal 1.2-3.8 [facility] Comment on above: Performed By: #### CBC ####[facility] ital Pmumkfhkit4869 [place] [address]DrBebo Diaz Lymphocytes/100 WBC (Bld) 13.8 % Critically low 20.5-60.0 [facility] Comment on above: Performed By: #### CBC ####[facility] ital Mvgooagocy0915 [place] [address]DrBebo Diaz MANUAL DIFF REQ NO Normal [facility] Comment on above: Performed By: #### CBC ####[facility] ital Swoxxnvdzj9120 [place] [address]DrBebo Diaz MCH (RBC) [Entitic mass] 32.8 pg Normal 25.9-34.0 [facility] Comment on above: Performed By: #### CBC ####[facility] Lgmcluguhj6993 [place] [address]DrBebo Diaz MCHC (RBC) [Mass/Vol] 32.4 g/dL Normal 29.9-35.2 [facility] Comment on above: Performed By: #### CBC ####[facility] Xaqbkubqrq9482 [place] [address]DrBebo Diaz MCV (RBC) [Entitic vol] 101.2 fL Critically high 80.0-94.0 [facility] Comment on above: Performed By: #### CBC ####[facility] ital Urengfneas6276 [place] [address]Dr. Yuki Diaz MONO # 0.8 103/ul Normal 0.3-0.8 [facility] Comment on above: Performed By: #### CBC ####[facility] ital Smkvsqzkug3017 [place] [address]DrBebo Diaz Monocytes/100 WBC (Bld) 8.3 % Normal 1.7-12.0 [facility] Comment on above: Performed By: #### CBC ####[facility] ital Rqslzbnxkh0523 [place] [address]DrBebo Diaz NEUT # 7.2 103/ul Critically high 1.4-6.5 [facility] Comment on above: Performed By: #### CBC ####[facility] ital Hrutflubnt0498 [place] [address]Dr. Yuki Diaz Neutrophils/100 WBC (Bld) 75.5 % Critically high 43.0-75.0 [facility] Comment on above: Performed By: #### CBC ####[facility] ital Nfoyfteqfv5193 [place] [id number]. Yuki Diaz Platelet mean volume (Bld) [Entitic vol] 10.6 fL Normal 9.5-13.[address] [facility] Comment on above: Performed By: #### CBC ####[facility] ital Rtasoftqxy3948 [place] [address]Dr. Yuki Diaz PLT 215 103/ul Normal 150-[address] [facility] Comment on above: Performed By: #### CBC ####[facility] Isaayspygf1456 [place] [address]Dr. Yuki Diaz RBC 3.29 106/ul Critically low 4.70-6.[address] [facility] Comment on above: Performed By: #### CBC ####[facility] Czlqwxhdup0232 [place] [address]Dr. Yuki Diaz WBC 9.5 103/ul Normal 4.0-11.[address] [facility] Comment on above: Performed By: #### CBC ####[facility] Wsqgjqhwgl6600 [place] [address]Dr. Yuki Diaz Cov[facility]-19 PCR ([facility]on 01-06 SARS-CoV-2 (COVID-19) RNA JARVIS+probe Ql (Unsp spec) Not detected Normal NOT DETECTED [facility] Comment on above: Result Comment: [...] for this test is supported by the [employer] of Health and Human Service's declaration that [...] longer be used). Performed By: #### [facility] ####[facility] Aranxgxnjb2119 [place] [address]Dr. Yuki Diaz PROF 14(COMP METB)on 022 Albumin [Mass/Vol] 2.8 g/dL Critically low 3.4-5.0 [facility] Comment on above: Performed By: #### CMP ####[facility] Ydfignfoqi[address] [place], [place] [address]Dr. Yuki Diaz Albumin/Globulin [Mass ratio] 0.8 {ratio} Normal [facility] Comment on above: Performed By: #### CMP ####[facility] ital Xayrneuljz49[address] [place], [place] [address]Dr. Yuki Diaz ALP [Catalytic activity/Vol] 96 U/L Normal 46-[address] [facility] Comment on above: Performed By: #### CMP ####[facility] Oxdbaqtylp245[address] [place], [place] [address]Dr. Yuki Diaz ALT [Catalytic activity/Vol] 32 U/L Normal 16-[address] [facility] Comment on above: Performed By: #### CMP ####[facility] ital Vcjftpykoh55[address] [place], [place] [address]Dr. Yuki Diaz Anion gap [Moles/Vol] 12.6 mmol/L Normal [facility] Comment on above: Performed By: #### CMP ####[facility] Qqnaveymcl1618[address] [place], [place] [address]Dr. Yuki Diaz AST [Catalytic activity/Vol] 19 U/L Normal 15-[address] [facility] Comment on above: Performed By: #### CMP ####[facility] Qfsvarluko6446 [place] [address]Dr. Yuki Diaz Bilirubin [Mass/Vol] 0.7 mg/dL Normal 0.2-1.[address] [facility] Comment on above: Performed By: #### CMP ####[facility] Fxvyntnzws7796 [place] [address]Dr. Yuki Diaz Calcium [Mass/Vol] 8.2 mg/dL Critically low 8.5-10.[address] [facility] Comment on above: Performed By: #### CMP ####[facility] Stwnsqhzpb6582 [place] [address]Dr. Yuki Diaz Chloride [Moles/Vol] 103 mmol/L Normal 98-[address] [facility] Comment on above: Performed By: #### CMP ####[facility] Zzhuanlopb3519 [place] [address]Dr. Yuki Diaz CO2 [Moles/Vol] 31.2 mmol/L Normal 21.0-32.[address] [facility] Comment on above: Performed By: #### CMP ####[facility] Cisqbqfcyz8332 [place] [address]Dr. Yuki Diaz Creatinine [Mass/Vol] 2.24 mg/dL Critically high 0.70-1.[address] [facility] Comment on above: Performed By: #### CMP ####[facility] Cbuaqytpyu8231 [place] [address]Dr. Yuki Diaz EGFR-AF UGANDAN 34 mL/min/1.73m2 Critically low >=[address] [facility] Comment on above: Performed By: #### CMP ####[facility] Xcqaecehtq6198 [place] [address]Dr. Yuki Diaz EGFR-NON AF UGANDAN 28 mL/min/1.73m2 Critically low >=[address] [facility] Comment on above: Performed By: #### CMP ####[facility] Szxraikemc5579 [place] [address]Dr. Yuki Diaz Globulin (S) [Mass/Vol] 3.4 g/dL Normal [facility] Comment on above: Performed By: #### CMP ####[facility] Netidwsbhh0749 [place] [id number]. Yuki Diaz Glucose [Mass/Vol] 123 mg/dL Critically high 74-[address] [facility] Comment on above: Performed By: #### CMP ####[facility] Alsdcpolem6623 [place] [address]Dr. Yuki Diaz Potassium [Moles/Vol] 2.7 mmol/L Critically low 3.5-5.[address] [facility] Comment on above: Performed By: #### CMP ####[facility] Dxfpcaawcw6528 [place] [address]Dr. Yuki Diaz Protein [Mass/Vol] 6.2 g/dL Critically low 6.4-8.[address] [facility] Comment on above: Performed By: #### CMP ####[facility] Difwgopbzo7153 [place] [address]Dr. Yuki Diaz Sodium [Moles/Vol] 142 mmol/L Normal 136-[address] [facility] Comment on above: Performed By: #### CMP ####[facility] Yhihiijcto2323 [place] [address]Dr. Yuki Diaz Urea nitrogen [Mass/Vol] 29.0 mg/dL Critically high 7.0-18.[address] [facility] Comment on above: Performed By: #### CMP ####[facility] Avbdhxvmzy2510 [place] [address]Dr. Yuki Diaz Urea nitrogen/Creatin ine [Mass ratio] 12.9 mg/mg Normal [facility] Comment on above: Performed By: #### CMP ####[facility] Tqdwtelhlx4275 [place] [address]Dr. Yuki Diaz TROPONIN, HIGH SENSITIVITYon 01-24-2022 HSTROP 33.1 pg/mL Normal 4.0-76.[address] [facility] Comment on above: Result Comment: CUT-OFF POINTS HAVE BEEN ESTABLISHED BASED ON THE FOURTH UNIVERSAL DEFINITIONS OF MYOCARDIALINFARCTION. THE UPPER REFERENCE LIMIT (URL) OF TROPONIN, DEFINED THE 99TH PERCENTILE OFcTnI DISTRIBUTION IN A REFERENCE POPULATION, HAS BEEN CONFIRMED THE DECISION THRESHOLDFOR [place] DIAGNOSIS. Performed By: #### H STROPN, CMADM, BNP ####[facility] Pyesqirkcp7816 [place] [address]Dr. Yuki Diaz XR CHEST 1 Von 01-24-2022 XR CHEST [address] [facility] BNPon 01-12-2022 Natriuretic peptide B (Bld) [Mass/Vol] 2759.0 pg/mL Critically high <=1,800.[address] [facility] Comment on above: Performed By: #### CMP, BNP ####[facility] Vtnfkahrvq[address] [place], [place] [address]Dr. Yuki Diaz PROF 14(COMP METB)on 022 Albumin [Mass/Vol] 2.9 g/dL Critically low 3.4-5.0 [facility] Comment on above: Performed By: #### CMP, BNP ####[facility] Oridiorjml724[address] [place], [place] [address]Dr. Yuki Diaz Albumin/Globulin [Mass ratio] 0.8 {ratio} Normal [facility] Comment on above: Performed By: #### CMP, BNP ####[facility] Etdthqemod7[address] [place], [place] [address]Dr. Yuki Diaz ALP [Catalytic activity/Vol] 100 U/L Normal 46-[address] [facility] Comment on above: Performed By: #### CMP, BNP ####[facility] Tkrnxwixjy22[address] [place], [place] [address]Dr. Yuki Diaz ALT [Catalytic activity/Vol] 43 U/L Normal 16-[address] [facility] Comment on above: Performed By: #### CMP, BNP ####[facility] Xyvfaakioa225[address] [place], [place] [address]Dr. Yuki Diaz Anion gap [Moles/Vol] 7.6 mmol/L Normal [facility] Comment on above: Performed By: #### CMP, BNP ####[facility] Mvygisjyiq10[address] [place], [place] [address]Dr. Yuki Diaz AST [Catalytic activity/Vol] 22 U/L Normal 15-[address] [facility] Comment on above: Performed By: #### CMP, BNP ####[facility] Asikdoqjlu496[address] [place], [place] [address]Dr. Yuki Diaz Bilirubin [Mass/Vol] 0.8 mg/dL Normal 0.2-1.[address] [facility] Comment on above: Performed By: #### CMP, BNP ####[facility] Libzinvevi0309 [place] [address]Dr. Yuki Diaz Calcium [Mass/Vol] 8.0 mg/dL Critically low 8.5-10.[address] [facility] Comment on above: Performed By: #### CMP, BNP ####[facility] Qopljipsqy0630 [place] [address]Dr. Yuki Diaz Chloride [Moles/Vol] 107 mmol/L Normal 98-[address] [facility] Comment on above: Performed By: #### CMP, BNP ####[facility] Zufynpyobw7194 [place] [address]Dr. Yuki Diaz CO2 [Moles/Vol] 37.1 mmol/L Critically high 21.0-32.[address] [facility] Comment on above: Performed By: #### CMP, BNP ####[facility] Qvamdmndxa260[address] [place], [place] [address]Dr. Yuki Diaz Creatinine [Mass/Vol] 1.94 mg/dL Critically high 0.70-1.[address] [facility] Comment on above: Performed By: #### CMP, BNP ####[facility] Rbqwnxsiiu3011 [place] [address]Dr. Yuki Diaz EGFR-AF UGANDAN 41 mL/min/1.73m2 Critically low >=[address] [facility] Comment on above: Performed By: #### CMP, BNP ####[facility] Chryhayjei1453 [place] [address]Dr. Yuki Diaz EGFR-NON AF UGANDAN 34 mL/min/1.73m2 Critically low >=[address] [facility] Comment on above: Performed By: #### CMP, BNP ####[facility] Hgacdatgsv4707 [place] [address]Dr. Yuki Diaz Globulin (S) [Mass/Vol] 3.5 g/dL Normal [facility] Comment on above: Performed By: #### CMP, BNP ####[facility] Xexsazehik0292 [place] [address]Dr. Yuki Diaz Glucose [Mass/Vol] 76 mg/dL Normal 74-[address] [facility] Comment on above: Performed By: #### CMP, BNP ####[facility] Wnqtajslzm352[address] [place], [place] [address]Dr. Yuki Diaz Potassium [Moles/Vol] 3.7 mmol/L Normal 3.5-5.[address] [facility] Comment on above: Performed By: #### CMP, BNP ####[facility] Jxiczstamk118[address] [place], [place] [address]Dr. Yuki Diaz Protein [Mass/Vol] 6.4 g/dL Normal 6.4-8.[address] [facility] Comment on above: Performed By: #### CMP, BNP ####[facility] Cxohfjnqlq857[address] [place], [place] [address]Dr. Yuki Diaz Sodium [Moles/Vol] 148 mmol/L Critically high 136-[address] [facility] Comment on above: Performed By: #### CMP, BNP ####[facility] Wxphdusefo84[address] [place], [place] [address]Dr. Yuki Diaz Urea nitrogen [Mass/Vol] 35.0 mg/dL Critically high 7.0-18.[address] [facility] Comment on above: Performed By: #### CMP, BNP ####[facility] Uqxmcdrpub[address] [place], [place] [address]Dr. Yuki Diaz Urea nitrogen/Creatin ine [Mass ratio] 18.0 mg/mg Normal [facility] Comment on above: Performed By: #### CMP, BNP ####[facility] Nbcfpnanog10[address] [place], [place] [address]Dr. Yuki Diaz BNPon 12-30-2021 Natriuretic peptide B (Bld) [Mass/Vol] 4262.0 pg/mL Critically high <=1,800.[address] [facility] Comment on above: Result Comment: repeated Performed By: #### C MP, BNP ####[facility] Ullrmrakhs[address] [place], [place] [address]Dr. Yuki Diaz CBC AUTO DIFFon 12-30-2021 BASO # 0.0 103/ul Normal 0.0-0.1 [facility] Comment on above: Performed By: #### CBC ####[facility] Mnosuadwhg7983 [place] [address]Dr. Yuki Diaz Basophils/100 WBC (Bld) 0.2 % Normal 0.2-2.[address] [facility] Comment on above: Performed By: #### CBC ####[facility] ital Xgdnurmnhd224[address] [place], [place] [address]Dr. Yuki Diaz EO # 0.1 103/ul Normal 0.0-0.[address] [facility] Comment on above: Performed By: #### CBC ####[facility] Yppaobmzmm9[address] [place], [place] [address]Dr. Yuki Diaz Eosinophils/100 WBC (Bld) 1.3 % Normal 0.9-7.[address] [facility] Comment on above: Performed By: #### CBC ####[facility] Houlybtirx64[address] [place], [place] [address]Dr. Yuki Diaz Erythrocyte distribution width (RBC) [Ratio] 13.9 % Normal 11.0-15.0 [facility] Comment on above: Performed By: #### CBC ####[facility] Rvxpbtdcki447[address] [place], [place] [address]Dr. Yuki Diaz Hematocrit (Bld) [Volume fraction] 35.6 % Critically low 42.0-54.0 [facility] Comment on above: Performed By: #### CBC ####[facility] Fciqvgreez4[address] [place], [place] [address]Dr. Yuki Diaz Hemoglobin (Bld) [Mass/Vol] 11.6 g/dL Critically low 14.0-18.[address] [facility] Comment on above: Performed By: #### CBC ####[facility] Rwfbxqnlqy98[address] [place], [place] [address]DrBebo Diaz IG # 0.02 10e3/ul Normal 0.00-0.[address] [facility] Comment on above: Performed By: #### CBC ####[facility] Ytniwfklvz25[address] [place], [place] [address]Dr. Yuki Diaz IG % 0.2 % Normal 0.0-0.5 [facility] Comment on above: Performed By: #### CBC ####[facility] ital Yncnliwfmp8590 [place] [address]DrBebo Diaz LYMPH # 1.5 103/ul Normal 1.2-3.[address] [facility] Comment on above: Performed By: #### CBC ####[facility] ital Hgcgldznrj7993 [place] [address]DrBebo Diaz Lymphocytes/100 WBC (Bld) 17.6 % Critically low 20.5-60.0 [facility] Comment on above: Performed By: #### CBC ####[facility] Rjphlxwnmv6[address] [place] [address]DrBebo Diaz MANUAL DIFF REQ NO Normal [facility] Comment on above: Performed By: #### CBC ####[facility] Adslqbcrzy8799 [place] [address]DrBebo Diaz MCH (RBC) [Entitic mass] 32.3 pg Normal 25.9-34.0 [facility] Comment on above: Performed By: #### CBC ####[facility] Pediqvieja4326 [place] [address]DrBebo Diaz MCHC (RBC) [Mass/Vol] 32.6 g/dL Normal 29.9-35.[address] [facility] Comment on above: Performed By: #### CBC ####[facility] Ewbtygigpf3152 [place] [address]DrBebo Diaz MCV (RBC) [Entitic vol] 99.2 fL Critically high 80.0-94.[address] [facility] Comment on above: Performed By: #### CBC ####[facility] Annqwtlzix2468 [place] [address]DrBebo Diaz MONO # 0.9 103/ul Critically high 0.3-0.[address] [facility] Comment on above: Performed By: #### CBC ####[facility] Bvhyuajdqq7867 [place] [address]DrBebo Diaz Monocytes/100 WBC (Bld) 10.9 % Normal 1.7-12.[address] [facility] Comment on above: Performed By: #### CBC ####[facility] ital Asjbnblxfa7041 [place] [address]DrBebo Yuki Diaz NEUT # 5.7 103/ul Normal 1.4-6.[address] [facility] Comment on above: Performed By: #### CBC ####[facility] ital Rhlforcwmr0143 [place] [address]DrBebo Yuki Diaz Neutrophils/100 WBC (Bld) 69.8 % Normal 43.0-75.[address] [facility] Comment on above: Performed By: #### CBC ####[facility] Iqbomikqya2252 [place] [address]DrBebo Diaz Platelet mean volume (Bld) [Entitic vol] 10.3 fL Normal 9.5-13.[address] [facility] Comment on above: Performed By: #### CBC ####[facility] Bkhzaifllm4236 [place] [address]Dr. Yuki Joe PLT 182 103/ul Normal 150-[address] [facility] Comment on above: Performed By: #### CBC ####[facility] Cxtkipjwcz1906 [place] [address]DrBebo Diaz RBC 3.59 106/ul Critically low 4.70-6.[address] [facility] Comment on above: Performed By: #### CBC ####[facility] Zswboilqyx8723 [place] [address]DrBebo Sheaalyssa Joe WBC 8.2 103/ul Normal 4.0-11.[address] [facility] Comment on above: Performed By: #### CBC ####[facility] Yplkpizzxj6990 [place] [address]DrBebo Diaz POINT OF CARE GLUCOSEon 05-2 Glucose [Mass/Vol] 134 mg/dL Critically high 74-[address] [facility] Comment on above: Performed By: #### POCGLUC ####[facility] Iypoqvgtwx5830 [place] [address]DrBebo Diaz PROF 14(COMP METB)on 022 Albumin [Mass/Vol] 2.9 g/dL Critically low 3.4-5.[address] [facility] Comment on above: Performed By: #### CMP, BNP ####[facility] Brhcjmjnzc9470 [place] [address]Dr. Yuki Diaz Albumin/Globulin [Mass ratio] 0.9 {ratio} Normal [facility] Comment on above: Performed By: #### CMP, BNP ####[facility] Ltvuwkknvw275[address] [place], [place] [address]Dr. Yuki Diaz ALP [Catalytic activity/Vol] 87 U/L Normal 46-[address] [facility] Comment on above: Performed By: #### CMP, BNP ####[facility] Jwjouxhzvk207[address] [place], [place] [address]Dr. Yuki Diaz ALT [Catalytic activity/Vol] 92 U/L Critically high 16-[address] [facility] Comment on above: Performed By: #### CMP, BNP ####[facility] Nibnwnccbj4800[address] [place], [place] [address]Dr. Yuki Diaz Anion gap [Moles/Vol] 8.4 mmol/L Normal [facility] Comment on above: Performed By: #### CMP, BNP ####[facility] Mjuemzxjzf217[address] [place], [place] [address]Dr. Yuki Diaz AST [Catalytic activity/Vol] 29 U/L Normal 15-[address] [facility] Comment on above: Performed By: #### CMP, BNP ####[facility] Sjcfehlyft78[address] [place], [place] [address]Dr. Yuki Diaz Bilirubin [Mass/Vol] 0.8 mg/dL Normal 0.2-1.[address] [facility] Comment on above: Performed By: #### CMP, BNP ####[facility] Xlvgvmbyqd415[address] [place], [place] [address]Dr. Yuki Diaz Calcium [Mass/Vol] 8.3 mg/dL Critically low 8.5-10.[address] [facility] Comment on above: Performed By: #### CMP, BNP ####[facility] Fywquaukdn184[address] [place], [place] [address]Dr. Yuki Diaz Chloride [Moles/Vol] 105 mmol/L Normal 98-[address] [facility] Comment on above: Performed By: #### CMP, BNP ####[facility] Xreyzywuil2903 [place] [address]Dr. Yuki Diaz CO2 [Moles/Vol] 34.1 mmol/L Critically high 21.0-32.[address] [facility] Comment on above: Performed By: #### CMP, BNP ####[facility] Sfzpcrpaqh7438 [place] [address]Dr. Yuki Diaz Creatinine [Mass/Vol] 1.98 mg/dL Critically high 0.70-1.[address] [facility] Comment on above: Performed By: #### CMP, BNP ####[facility] Ahlbkwztdu5767[address] [place], [place] [address]Dr. Yuki Diaz EGFR-AF UGANDAN 40 mL/min/1.73m2 Critically low >=[address] [facility] Comment on above: Performed By: #### CMP, BNP ####[facility] Tihwtedmxz2536[address] [place], [place] [address]Dr. Yuki Diaz EGFR-NON AF UGANDAN 33 mL/min/1.73m2 Critically low >=[address] [facility] Comment on above: Performed By: #### CMP, BNP ####[facility] Gscrjpccmo825[address] [place], [place] [address]Dr. Yuki Diaz Globulin (S) [Mass/Vol] 3.4 g/dL Normal [facility] Comment on above: Performed By: #### CMP, BNP ####[facility] Ubwbidpoec7583 [place] [address]Dr. Yuki Diaz Glucose [Mass/Vol] 129 mg/dL Critically high 74-[address] [facility] Comment on above: Performed By: #### CMP, BNP ####[facility] Eyrzwxtbym59[address] [place], [place] [address]Dr. Yuki Diaz Potassium [Moles/Vol] 3.5 mmol/L Normal 3.5-5.[address] [facility] Comment on above: Performed By: #### CMP, BNP ####[facility] Hmjbuxmzcl70[address] [place], [place] [address]Dr. Monsealyssa Diaz Protein [Mass/Vol] 6.3 g/dL Critically low 6.4-8.[address] [facility] Comment on above: Performed By: #### CMP, BNP ####[facility] Htqeyygkfd711[address] [place], [place] [address]Dr. Yuki Diaz Sodium [Moles/Vol] 144 mmol/L Normal 136-[address] [facility] Comment on above: Performed By: #### CMP, BNP ####[facility] Ptgmnpmvpg624[address] [place], [place] [address]Dr. Yuki Diaz Urea nitrogen [Mass/Vol] 37.0 mg/dL Critically high 7.0-18.[address] [facility] Comment on above: Performed By: #### CMP, BNP ####[facility] Bbrenczlfd2470[address] [place], [place] [address]Dr. Yuki Diaz Urea nitrogen/Creatin ine [Mass ratio] 18.7 mg/mg Normal [facility] Comment on above: Performed By: #### CMP, BNP ####[facility] Elhxyduvsg9027[address] [place], [place] [address]Dr. Yuki Joe BNPon 12-29-2021 Natriuretic peptide B (Bld) [Mass/Vol] 2335.0 pg/mL Critically high <=1,800.[address] [facility] Comment on above: Result Comment: repeated Performed By: #### C MP, BNP ####[facility] Ixtcfnbhoi937[address] [place], [place] [address]Dr. Yuki Diaz CBC AUTO DIFFon 12-29-2021 BASO # 0.0 103/ul Normal 0.0-0.[address] [facility] Comment on above: Performed By: #### CBC ####[facility] ital Ybidzspwai749[address] [place], [place] [address]Dr. Yuki Diaz Basophils/100 WBC (Bld) 0.3 % Normal 0.2-2.[address] [facility] Comment on above: Performed By: #### CBC ####[facility] Ipummzccbw786[address] [place], [place] [address]Dr. Yuki Diaz EO # 0.1 103/ul Normal 0.0-0.7 [facility] Comment on above: Performed By: #### CBC ####[facility] ital Lcqfqfgjub[address] Yuki Diaz Eosinophils/100 WBC (Bld) 1.4 % Normal 0.9-7.0 [facility] Comment on above: Performed By: #### CBC ####[facility] ital Fqofqnoygr0004 [address] Yuki Diaz Erythrocyte distribution width (RBC) [Ratio] 14.2 % Normal 11.0-15.[address] [facility] Comment on above: Performed By: #### CBC ####[facility] Xnvrvthita27[address] [place] [address]. Monsealyssa Diaz Hematocrit (Bld) [Volume fraction] 34.3 % Critically low 42.0-54.0 [facility] Comment on above: Performed By: #### CBC ####[facility] Wkfrugblqr615[address] [place], [place] [address]Dr. Monsealyssa Diaz Hemoglobin (Bld) [Mass/Vol] 11.0 g/dL Critically low 14.0-18.0 [facility] Comment on above: Performed By: #### CBC ####[facility] Olyrditcdk[address] [place] [address]. Yuki Diaz IG # 0.03 10e3/ul Normal 0.00-0.[address] [facility] Comment on above: Performed By: #### CBC ####[facility] Vrhuqcugzp5575[address] [place], [place] [address]Dr. Yuki Diaz IG % 0.4 % Normal 0.0-0.[address] [facility] Comment on above: Performed By: #### CBC ####[facility] Cslqpjngbb298[address] [place] [address]. Yuki Diaz LYMPH # 1.3 103/ul Normal 1.2-3.[address] [facility] Comment on above: Performed By: #### CBC ####[facility] Xbubtnltkp0955[address] [place] [address]. Yuki Diaz Lymphocytes/100 WBC (Bld) 18.5 % Critically low 20.5-60.0 [facility] Comment on above: Performed By: #### CBC ####[facility] ital Znoybdqqew0386 [place] [address]DrBebo Diaz MANUAL DIFF REQ NO Normal [facility] Comment on above: Performed By: #### CBC ####[facility] ital Yargkkymlq9854 [place] [address]DrBebo Diaz MCH (RBC) [Entitic mass] 31.7 pg Normal 25.9-34.0 [facility] Comment on above: Performed By: #### CBC ####[facility] ital Oxxpgvpjof1746 [place] [address]DrBebo Diaz MCHC (RBC) [Mass/Vol] 32.1 g/dL Normal 29.9-35.2 [facility] Comment on above: Performed By: #### CBC ####[facility] Wumztihzjj7904 [place] [address]DrBebo Diaz MCV (RBC) [Entitic vol] 98.8 fL Critically high 80.0-94.0 [facility] Comment on above: Performed By: #### CBC ####[facility] Jijgbyrjfv633[address] [place], [place] [address]DrBebo Diaz MONO # 0.7 103/ul Normal 0.3-0.8 [facility] Comment on above: Performed By: #### CBC ####[facility] ital Wgjnpbhqnp6643 [place] [address]DrBebo Diaz Monocytes/100 WBC (Bld) 10.6 % Normal 1.7-12.[address] [facility] Comment on above: Performed By: #### CBC ####[facility] ital Amcovwbuwc2990 [place] [address]DrBebo Diaz NEUT # 4.8 103/ul Normal 1.4-6.5 [facility] Comment on above: Performed By: #### CBC ####[facility] ital Tzmvrooltq5314[address] [place], [place] [address]DrBebo Diaz Neutrophils/100 WBC (Bld) 68.8 % Normal 43.0-75.0 [facility] Comment on above: Performed By: #### CBC ####[facility] ital Fwssuwliub6944 [place] [address]Dr. Yuki Diaz Platelet mean volume (Bld) [Entitic vol] 10.5 fL Normal 9.5-13.5 [facility] Comment on above: Performed By: #### CBC ####[facility] ital Genrmcfiou315[address] [place], [place] [address]Dr. Yuki Diaz PLT 183 103/ul Normal 150-450 [facility] Comment on above: Performed By: #### CBC ####[facility] Bkgeawmmgx205[address] [place], [place] [address]Dr. Monsealyssa Diaz RBC 3.47 106/ul Critically low 4.70-6.10 [facility] Comment on above: Performed By: #### CBC ####[facility] Idclhuqjng943[address] [place], [place] [address]Dr. Monsealyssa Joe WBC 7.0 103/ul Normal 4.0-11.0 [facility] Comment on above: Performed By: #### CBC ####[facility] Krarmkwryg033[address] [place], [place] [address]Dr. Yuki Diaz CULTURE URINEon 12-29-2021 CULTURE URINE Culture Observations : NO GROWTH. Normal [facility] Comment on above: Performed By: #### URCX ####[facility] pital Qxfutavjia022[address] [place], [place] [address]Dr. Monsealyssa Joe ECHO LIMITED STUDYon 022 ECHO LIMITED STUDY Normal [facility] POINT OF CARE GLUCOSEon 12-06 Glucose [Mass/Vol] 143 mg/dL Critically high 74-106 [facility] Comment on above: Performed By: #### POCGLUC ####[facility] Nygdcliauo412[address] [place], [place] [address]Dr. Monsealyssa Joe Glucose [Mass/Vol] 141 mg/dL Critically high 74-106 [facility] Comment on above: Performed By: #### POCGLUC ####[facility] Hemeofycpu64[address] [place], [place] [address]Dr. Yuki Diaz Glucose [Mass/Vol] 190 mg/dL Critically high 74-106 [facility] Comment on above: Performed By: #### POCGLUC ####[facility] Sjjcuscbkw069[address] [place], [place] [address]Dr. Yuki Diaz PROF 14(COMP METB)on 022 Albumin [Mass/Vol] 2.5 g/dL Critically low 3.4-5.[address] [facility] Comment on above: Performed By: #### CMP, BNP ####[facility] Laycsvpurd14[address] [place], [place] [address]Dr. Yuki Diaz Albumin/Globulin [Mass ratio] 0.8 {ratio} Normal [facility] Comment on above: Performed By: #### CMP, BNP ####[facility] Snxprceufx690[address] [place], [place] [address]Dr. Yuki Diaz ALP [Catalytic activity/Vol] 77 U/L Normal 46-[address] [facility] Comment on above: Performed By: #### CMP, BNP ####[facility] Novzmlszcv4518[address] [place], [place] [address]Dr. Yuki Diaz ALT [Catalytic activity/Vol] 103 U/L Critically high 16-[address] [facility] Comment on above: Performed By: #### CMP, BNP ####[facility] Mcvfgtmdih4640[address] [place], [place] [address]Dr. Yuki Diaz Anion gap [Moles/Vol] 12.3 mmol/L Normal [facility] Comment on above: Performed By: #### CMP, BNP ####[facility] Glyeiyipku4499[address] [place], [place] [address]Dr. Yuki Diaz AST [Catalytic activity/Vol] 41 U/L Critically high 15-[address] [facility] Comment on above: Performed By: #### CMP, BNP ####[facility] Baonziczmg349[address] [place], [place] [address]Dr. Yuki Diaz Bilirubin [Mass/Vol] 0.7 mg/dL Normal 0.2-1.0 [facility] Comment on above: Performed By: #### CMP, BNP ####[facility] Zoabkgsvjy1680 [place] [address]Dr. Yuki Diaz Calcium [Mass/Vol] 8.2 mg/dL Critically low 8.5-10.[address] [facility] Comment on above: Performed By: #### CMP, BNP ####[facility] Plciiijsvb836391 [address] [place], [place] [address]Dr. Yuki Diaz Chloride [Moles/Vol] 108 mmol/L Critically high 98-[address] [facility] Comment on above: Performed By: #### CMP, BNP ####[facility] Xfawuncico5480[address] [place], [place] [address]Dr. Yuki Diaz CO2 [Moles/Vol] 28.4 mmol/L Normal 21.0-32.[address] [facility] Comment on above: Performed By: #### CMP, BNP ####[facility] Wavpayiybn432[address] [place], [place] [address]Dr. Yuki Diaz Creatinine [Mass/Vol] 1.74 mg/dL Critically high 0.70-1.[address] [facility] Comment on above: Performed By: #### CMP, BNP ####[facility] Vqqumaxlmk497[address] [place], [place] [address]Dr. Yuki Diaz EGFR-AF UGANDAN 46 mL/min/1.73m2 Critically low >=[address] [facility] Comment on above: Performed By: #### CMP, BNP ####[facility] Orxypudjun9735[address] [place], [place] [address]Dr. Yuki Diaz EGFR-NON AF UGANDAN 38 mL/min/1.73m2 Critically low >=[address] [facility] Comment on above: Performed By: #### CMP, BNP ####[facility] Ejwhaomqbh128[address] [place], [place] [address]Dr. Yuki Diaz Globulin (S) [Mass/Vol] 3.1 g/dL Normal [facility] Comment on above: Performed By: #### CMP, BNP ####[facility] Hcvnxogjvz824[address] [place], [place] [address]Dr. Yuki Diaz Glucose [Mass/Vol] 103 mg/dL Normal 74-[address] [facility] Comment on above: Performed By: #### CMP, BNP ####[facility] Rwzanczwgn2373 [place] [address]Dr. Yuki Diaz Potassium [Moles/Vol] 3.7 mmol/L Normal 3.5-5.[address] [facility] Comment on above: Performed By: #### CMP, BNP ####[facility] Gcmsfghdxv9352 [place] [address]Dr. Yuki Diaz Protein [Mass/Vol] 5.6 g/dL Critically low 6.4-8.[address] [facility] Comment on above: Performed By: #### CMP, BNP ####[facility] Nccbyipwbr544[address] [place], [place] [address]Dr. Yuki Diaz Sodium [Moles/Vol] 145 mmol/L Normal 136-145 [facility] Comment on above: Performed By: #### CMP, BNP ####[facility] Smxmtmtvgn269[address] [place], [place] [address]Dr. Yuki Diaz Urea nitrogen [Mass/Vol] 33.0 mg/dL Critically high 7.0-18.0 [facility] Comment on above: Performed By: #### CMP, BNP ####[facility] Lcsjcklghe24[address] [place], [place] [address]Dr. Yuki Diaz Urea nitrogen/Creatin ine [Mass ratio] 19.0 mg/mg Normal [facility] Comment on above: Performed By: #### CMP, BNP ####[facility] Jzssyovbwu374[address] [place], [place] [address]Dr. Yuki Diaz BNPon 12-28-2021 Natriuretic peptide B (Bld) [Mass/Vol] 1699.0 pg/mL Normal <=1,800.0 [facility] Comment on above: Performed By: #### TSH, BNP, CMP ####[facility] Mmlpwucryd395[address] [place], [place] [address]Dr. Yuki Diaz CARDIAC RACHEL 3-6on 2 CK [Catalytic activity/Vol] 93 U/L Normal 39-[address] [facility] Comment on above: Performed By: #### CMREP ####[facility] Hnyjneefmq2227[address] [place], [place] [address]Dr. Yuki Diaz CK.MB [Mass/Vol] 2.99 ng/mL Normal <=3.60 [facility] Comment on above: Performed By: #### CMREP ####[facility] Nmkersekhl7491 [place] [address]Dr. Yuki Diaz HSTROP 30.7 pg/mL Normal 4.0-76.1 [facility] Comment on above: Result Comment: CUT-OFF POINTS HAVE BEEN ESTABLISHED BASED ON THE FOURTH UNIVERSAL DEFINITIONS OF MYOCARDIALINFARCTION. THE UPPER REFERENCE LIMIT (URL) OF TROPONIN, DEFINED THE 99TH PERCENTILE OFcTnI DISTRIBUTION IN A REFERENCE POPULATION, HAS BEEN CONFIRMED THE DECISION THRESHOLDFOR [place] DIAGNOSIS. Performed By: #### C MREP ####[facility] Zigrsoxflu3215 [place] [address]Dr. Yuki Joe CK [Catalytic activity/Vol] 107 U/L Normal 39-308 [facility] Comment on above: Performed By: #### CMREP ####[facility] Hqtvhkqozy948[address] [place], [place] [address]Dr. Yuki Joe CK.MB [Mass/Vol] 3.26 ng/mL Normal <=3.60 [facility] Comment on above: Performed By: #### CMREP ####[facility] Zavbmypkmv545[address] [place], [place] [address]Dr. Yuki Diaz HSTROP 27.1 pg/mL Normal 4.0-76.1 [facility] Comment on above: Result Comment: CUT-OFF POINTS HAVE BEEN ESTABLISHED BASED ON THE [facility] UNIVERSAL DEFINITIONS OF MYOCARDIALINFARCTION. THE UPPER REFERENCE LIMIT (URL) OF TROPONIN, DEFINED THE 99TH PERCENTILE OFcTnI DISTRIBUTION IN A REFERENCE POPULATION, HAS BEEN CONFIRMED THE DECISION THRESHOLDFOR [place] DIAGNOSIS. Performed By: #### C MREP ####[facility] Sumwvhccrx5[address] [place] [address]Dr. Yuki Diaz CARDIAC RACHEL ADMITon 022 CK [Catalytic activity/Vol] 101 U/L Normal 39-[address] [facility] Comment on above: Performed By: #### CMADM ####[facility] Mjjneehqlj1255 [place] [address]Dr. Yuki Diaz CK.MB [Mass/Vol] 3.35 ng/mL Normal <=3.60 [facility] Comment on above: Performed By: #### CMADM ####[facility] Dbrklluhjy495[address] Yuki Diaz HSTROP 27.6 pg/mL Normal 4.0-76.[address] [facility] Comment on above: Result Comment: CUT-OFF POINTS HAVE BEEN ESTABLISHED BASED ON THE FOURTH UNIVERSAL DEFINITIONS OF MYOCARDIALINFARCTION. THE UPPER REFERENCE LIMIT (URL) OF TROPONIN, DEFINED THE 99TH PERCENTILE OFcTnI DISTRIBUTION IN A REFERENCE POPULATION, HAS BEEN CONFIRMED THE DECISION THRESHOLDFOR [place] DIAGNOSIS. Performed By: #### C MADM ####[facility] Jylneviket[address] [place] [address]. Yuki Diaz DILSHAD 153 ng/mL Critically high 16-96 [facility] Comment on above: Performed By: #### CMADM ####[facility] Vgxghyclen816[address] [place], [place] [address]Dr. Yuki Diaz CBC AUTO DIFFon 12-28-2021 BASO # 0.0 103/ul Normal 0.0-0.1 [facility] Comment on above: Performed By: #### CBC ####[facility] ital Bhablfhzgb1134[address] [place] [address]. Yuki Diaz Basophils/100 WBC (Bld) 0.1 % Critically low 0.2-2.[address] [facility] Comment on above: Performed By: #### CBC ####[facility] ital Htcqgslypk8[address] Yuki Diaz EO # 0.1 103/ul Normal 0.0-0.[address] [facility] Comment on above: Performed By: #### CBC ####[facility] ital Uhfuheqqkp6812[address] [place], [place] [address]Dr. Yuki Diaz Eosinophils/100 WBC (Bld) 0.8 % Critically low 0.9-7.[address] [facility] Comment on above: Performed By: #### CBC ####[facility] ital Qadmgijuqk7868[address] [place], [place] [address]Dr. Yuki Diaz Erythrocyte distribution width (RBC) [Ratio] 14.2 % Normal 11.0-15.0 [facility] Comment on above: Performed By: #### CBC ####[facility] Dcyfzwrtaq8158 [place] [address]Dr. Yuki Diaz Hematocrit (Bld) [Volume fraction] 38.5 % Critically low 42.0-54.[address] [facility] Comment on above: Performed By: #### CBC ####[facility] Egjvfiwcgd4817 [place] [address]Dr. Yuki Diaz Hemoglobin (Bld) [Mass/Vol] 12.3 g/dL Critically low 14.0-18.[address] [facility] Comment on above: Performed By: #### CBC ####[facility] Kwjzktspcb9895 [place] [address]Dr. Yuki Diaz IG # 0.06 10e3/ul Critically high 0.00-0.03 [facility] Comment on above: Performed By: #### CBC ####[facility] Tddmdbilbo[address] [place], [place] [address]Dr. Yuki Diaz IG % 0.7 % Critically high 0.0-0.5 [facility] Comment on above: Performed By: #### CBC ####[facility] Zkqdfjsnzs8656 [place] [address]Dr. Yuki Diaz LYMPH # 1.0 103/ul Critically low 1.2-3.[address] [facility] Comment on above: Performed By: #### CBC ####[facility] Ggotvjivgr2038 [place] [address]Dr. Yuki Diaz Lymphocytes/100 WBC (Bld) 10.7 % Critically low 20.5-60.[address] [facility] Comment on above: Performed By: #### CBC ####[facility] Bebkzsvdna026[address] [place], [place] [address]Dr. Yuki Diaz MANUAL DIFF REQ NO Normal [facility] Comment on above: Performed By: #### CBC ####[facility] Eazepvhdqm6498 [place] [address]Dr. Yuki Diaz MCH (RBC) [Entitic mass] 31.9 pg Normal 25.9-34.[address] [facility] Comment on above: Performed By: #### CBC ####[facility] Weyachjtoh[address] [place] [address]Dr. Yuki Diaz MCHC (RBC) [Mass/Vol] 31.9 g/dL Normal 29.9-35.[address] [facility] Comment on above: Performed By: #### CBC ####[facility] Gdpfffjjwa6435 [place] [address]Dr. Yuki Diaz MCV (RBC) [Entitic vol] 99.7 fL Critically high 80.0-94.[address] [facility] Comment on above: Performed By: #### CBC ####[facility] Ouuanuakmy4693 [place] [address]Dr. Yuki Diaz MONO # 0.7 103/ul Normal 0.3-0.[address] [facility] Comment on above: Performed By: #### CBC ####[facility] Fcioznlcqy7385 [place] [address]Dr. Yuki Diaz Monocytes/100 WBC (Bld) 7.2 % Normal 1.7-12.[address] [facility] Comment on above: Performed By: #### CBC ####[facility] Phqdslbzub0827 [place] [address]Dr. Yuki Diaz NEUT # 7.4 103/ul Critically high 1.4-6.[address] [facility] Comment on above: Performed By: #### CBC ####[facility] Oublbcjwgg4294 [place] [address]Dr. Yuki Diaz Neutrophils/100 WBC (Bld) 80.5 % Critically high 43.0-75.[address] [facility] Comment on above: Performed By: #### CBC ####[facility] Uctbrhbwgn3083 [place] [address]Dr. Yuki Diaz Platelet mean volume (Bld) [Entitic vol] 10.0 fL Normal 9.5-13.[address] [facility] Comment on above: Performed By: #### CBC ####[facility] Qemabchewg3402 [place], [place] [address]Fu. Yuki Diaz PLT 194 103/ul Normal 150-[address] [facility] Comment on above: Performed By: #### CBC ####[facility] Sgcwrmtych1334 [place], [place] [address]Np. Yuki Diaz RBC 3.86 106/ul Critically low 4.70-6.[address] [facility] Comment on above: Performed By: #### CBC ####[facility] Zrdqlmvpxz3106 [place], [place] [address]Jz. Yuki Diaz WBC 9.2 103/ul Normal 4.0-11.[address] [facility] Comment on above: Performed By: #### CBC ####[facility] Uardaovmpc9209 [place], [place] [address]Lv. Yuki Diaz Covid-19 PCR (CVDTB)on 12-06 SARS-CoV-2 (COVID-19) RNA JARVIS+probe Ql (Unsp spec) Not detected Normal NOT DETECTED [facility] Comment on above: Result Comment: When diagnostic testing is negative, the possibility of a false negative should be considered inthe context of a patient's recent exposures and the presence of clinical signs and symptomsconsistent with SARS-CoV-2.This test is not yet approved or cleared by the [place] Food and Drug Administration (FDA).This test was developed by [employer], [place], [place]. The performance characteristics ofthis test were validated by [facility]. The results are not intended to beused as the sole means for clinical diagnosis or patient management decisions. The [facility] is authorized under Clinical Laboratory Improvement Amendments (CLIA) to perform high-complexity testing.This test is not yet approved or cleared by the [place] FDA. When there are no FDA-approved or cleared tests available, and other criteria are met, FDA can make tests available under an emergency access mechanism called an Emergency Use Authorization (EUA). The EUA for this test is supported by the Carrier of Health and Human Service's declaration that [...] be used). Performed By: #### C VDTB ####[facility] Glkbwshcds5454 [place] [address]Dr. Yuki Diaz ER URINE PROFILEon 2 Bilirubin Ql (U) Negative Normal NEGATIVE [facility] Comment on above: Performed By: #### ERUR ####[facility] Avtawdyvwx7224 [place] [address]Dr. Monsealyssa Diaz Clarity (U) CLEAR Normal CLEAR [facility] Comment on above: Performed By: #### ERUR ####[facility] Gmsinjxkzp5538 [place] [address]Dr. Monsealyssa Diaz Color (U) YELLOW Normal YELLOW [facility] Comment on above: Performed By: #### ERUR ####[facility] Ewfhygyfty1685 [place] [address]Dr. Yuki Diaz ERUAHD A micrscopic examina tion will be performed if indicated. Normal [facility] Comment on above: Performed By: #### ERUR ####[facility] Qmsuyxpwer7814 [place] [address]Dr. Monsealyssa Diaz Glucose Ql (U) Negative Normal NEGATIVE [facility] Comment on above: Performed By: #### ERUR ####[facility] Giarhytzjy4296 [place] [address]Dr. Monsealyssa Diaz Hemoglobin Ql (U) Negative Normal NEGATIVE [facility] Comment on above: Performed By: #### ERUR ####[facility] Iouufrrmrj3719 [place] [address]Dr. Monsealyssa Diaz Ketones Ql (U) Negative Normal NEGATIVE [facility] Comment on above: Performed By: #### ERUR ####[facility] Puuhgjsego8458 [place] [address]Dr. Yuki Diaz LEUKOCYTES Negative Normal NEGATIVE [facility] Comment on above: Performed By: #### ERUR ####[facility] Mdnyytisuh0538 [place] [address]Dr. Yuki Diaz Nitrite Ql (U) Negative Normal NEGATIVE [facility] Comment on above: Performed By: #### ERUR ####[facility] Kllecfiifw4738 [place] [address]Dr. Yuki Diaz pH (U) 5.5 [pH] Normal 5-[address] [facility] Comment on above: Performed By: #### ERUR ####[facility] Uatlbbcolh4184 [place] [address]Dr. Yuki Diaz Protein (U) [Mass/Vol] 100 mg/dL Abnormal NEGATIVE/ TRACE [facility] Comment on above: Performed By: #### ERUR ####[facility] Zdkbnoisqp6591 [place] [address]Dr. Yuki Diaz SPEC GRAVITY >=1.030 Abnormal 1.005-<=1. [address] [facility] Comment on above: Performed By: #### ERUR ####[facility] Wceprytnnt1751 [place] [address]Dr. Yuki Diaz UR MICRO IND NOT INDICATED Normal [facility] Comment on above: Performed By: #### ERUR ####[facility] Nlwcrbclvv0369 [place] [address]Dr. Yuki Diaz Urobilinogen Qn (U) 0.2 {Chidi'U}/dL Normal 0.2 - 1.[address] [facility] Comment on above: Performed By: #### ERUR ####[facility] Czguvvitmn5772 [place] [address]Dr. Yuki Diaz LACTATE/LACTIC ACIDon 2021 Lactate [Moles/Vol] 2.2 mmol/L Critically high 0.4-1.[address] [facility] Comment on above: Performed By: #### LACT ####[facility] Qcggvrqwat2162 [place] [address]Dr. Yuki Diaz POINT OF CARE GLUCOSEon 12-06 Glucose [Mass/Vol] 183 mg/dL Critically high 74-[address] [facility] Comment on above: Performed By: #### POCGLUC ####[facility] Xverrrxzis5626 [place] [address]Dr. Yuki Diaz Glucose [Mass/Vol] 167 mg/dL Critically high 74-106 [facility] Comment on above: Performed By: #### POCGLUC ####[facility] Goeumbxedq4955 [place] [address]Dr. Yuki Diaz PROF 14(COMP METB)on 022 Albumin [Mass/Vol] 2.9 g/dL Critically low 3.4-5.0 [facility] Comment on above: Performed By: #### TSH, BNP, CMP ####[facility] Mwknzxztjr6239 [place] [address]Dr. Yuki Diaz Albumin/Globulin [Mass ratio] 0.9 {ratio} Normal [facility] Comment on above: Performed By: #### TSH, BNP, CMP ####[facility] Dkimbnwbqo9[address] [place], [place] [address]Dr. Yuki Diaz ALP [Catalytic activity/Vol] 83 U/L Normal 46-[address] [facility] Comment on above: Performed By: #### TSH, BNP, CMP ####[facility] Rwlhdxfigx[address] [place], [place] [address]Dr. Yuki Diaz ALT [Catalytic activity/Vol] 98 U/L Critically high 16-63 [facility] Comment on above: Performed By: #### TSH, BNP, CMP ####[facility] Ixtfmluiaq2264 [place] [address]Dr. Yuki Diaz Anion gap [Moles/Vol] 11.6 mmol/L Normal [facility] Comment on above: Performed By: #### TSH, BNP, CMP ####[facility] Plcshypwtj0557 [place] [address]Dr. Yuki Diaz AST [Catalytic activity/Vol] 51 U/L Critically high 15-[address] [facility] Comment on above: Performed By: #### TSH, BNP, CMP ####[facility] Mnvhmmuusu5409 [place] [address]Dr. Yuki Diaz Bilirubin [Mass/Vol] 0.9 mg/dL Normal 0.2-1.[address] [facility] Comment on above: Performed By: #### TSH, BNP, CMP ####[facility] Aqxqqdrrkk[address] [place], [place] [address]Dr. Yuki Diaz Calcium [Mass/Vol] 8.3 mg/dL Critically low 8.5-10.[address] [facility] Comment on above: Performed By: #### TSH, BNP, CMP ####[facility] Jvmhcberym120[address] [place], [place] [address]Dr. Yuki Diaz Chloride [Moles/Vol] 106 mmol/L Normal 98-[address] [facility] Comment on above: Performed By: #### TSH, BNP, CMP ####[facility] Xozzdmzctb25[address] [place], [place] [address]Dr. Yuki Diaz CO2 [Moles/Vol] 28.2 mmol/L Normal 21.0-32.[address] [facility] Comment on above: Performed By: #### TSH, BNP, CMP ####[facility] Mbolvtwyox[address] [place], [place] [address]Dr. Yuki Diaz Creatinine [Mass/Vol] 1.84 mg/dL Critically high 0.70-1.[address] [facility] Comment on above: Performed By: #### TSH, BNP, CMP ####[facility] Pyzehhbfmr003[address] [place], [place] [address]Dr. Yuki Diaz EGFR-AF UGANDAN 43 mL/min/1.73m2 Critically low >=[address] [facility] Comment on above: Performed By: #### TSH, BNP, CMP ####[facility] Ajulwmjjiw[address] [place], [place] [address]Dr. Yuki Diaz EGFR-NON AF UGANDAN 36 mL/min/1.73m2 Critically low >=[address] [facility] Comment on above: Performed By: #### TSH, BNP, CMP ####[facility] Wddqlyzogp[address] [place], [place] [address]Dr. Yuki Diaz Globulin (S) [Mass/Vol] 3.3 g/dL Normal [facility] Comment on above: Performed By: #### TSH, BNP, CMP ####[facility] Ayizljqgdb6261 [place] [address]Dr. Yuki Diaz Glucose [Mass/Vol] 202 mg/dL Critically high 74-[address] [facility] Comment on above: Performed By: #### TSH, BNP, CMP ####[facility] Sjghtqiapr3507 [place] [address]Dr. Yuki Diaz Potassium [Moles/Vol] 3.8 mmol/L Normal 3.5-5.[address] [facility] Comment on above: Performed By: #### TSH, BNP, CMP ####[facility] Tcttahlqrx68[address] [place], [place] [address]Dr. Yuki Diaz Protein [Mass/Vol] 6.2 g/dL Critically low 6.4-8.[address] [facility] Comment on above: Performed By: #### TSH, BNP, CMP ####[facility] Ouruzqpnny197[address] [place], [place] [address]Dr. Yuki Diaz Sodium [Moles/Vol] 142 mmol/L Normal 136-[address] [facility] Comment on above: Performed By: #### TSH, BNP, CMP ####[facility] Disamqkftb46[address] [place], [place] [address]Dr. Yuki Diaz Urea nitrogen [Mass/Vol] 28.0 mg/dL Critically high 7.0-18.[address] [facility] Comment on above: Performed By: #### TSH, BNP, CMP ####[facility] Yybjjwrdvx[address] [place], [place] [address]Dr. Yuki Diaz Urea nitrogen/Creatin ine [Mass ratio] 15.2 mg/mg Normal [facility] Comment on above: Performed By: #### TSH, BNP, CMP ####[facility] Oxcrxgoboq[address] [place], [place] [address]Dr. Yuki Diaz TSHon 12-28-2021 TSH 1.808 uIU/mL Normal 0.358-3.[address] [facility] Comment on above: Performed By: #### TSH, BNP, CMP ####[facility] Wfjukmylgd[address] [place], [place] [address]Dr. Yuki Diaz TSH RANGE SEE BELOW Normal [facility] Comment on above: Result Comment: <0.34 UIU/ml HYPERTHYROI D 0.34-5.60 UIU/ml EUTHYROID >5.60 UIU/ml HYPOTHYROID Performed By: #### T SH, BNP, CMP ####[facility] Bqdkvtdnzu3260 [place] [address]Dr. Yuki Diaz XR CHEST 1 Von 12-28-2021 XR CHEST [address] [facility] BNPon 12-22-2021 Natriuretic peptide B (Bld) [Mass/Vol] 2907.0 pg/mL Critically high <=1,800.[address] [facility] Comment on above: Performed By: #### BNP ####[facility] Afivqzvwih3492 [place] [address]Dr. Yuki Diaz PROF 14(COMP METB)on 022 Albumin [Mass/Vol] 3.0 g/dL Critically low 3.4-5.0 [facility] Comment on above: Performed By: #### CMP ####[facility] Iwrisjguqz7529 [place] [address]Dr. Yuki Diaz Albumin/Globulin [Mass ratio] 0.9 {ratio} Normal [facility] Comment on above: Performed By: #### CMP ####[facility] Umgitxcvfa0982 [place] [address]Dr. Yuki Diaz ALP [Catalytic activity/Vol] 94 U/L Normal 46-116 [facility] Comment on above: Performed By: #### CMP ####[facility] Bsvvlwfaji6550 [place] [address]Dr. Yuki Diaz ALT [Catalytic activity/Vol] 39 U/L Normal 16-[address] [facility] Comment on above: Performed By: #### CMP ####[facility] Xtlujuuyai6512 [place] [address]Dr. Yuki Diaz Anion gap [Moles/Vol] 13.4 mmol/L Normal [facility] Comment on above: Performed By: #### CMP ####[facility] Fxwyfsoqre3579 [place] [address]Dr. Yuki Diaz AST [Catalytic activity/Vol] 11 U/L Critically low 15-[address] [facility] Comment on above: Performed By: #### CMP ####[facility] Jhhkienogo1830 [place] [address]Dr. Yuki Diaz Bilirubin [Mass/Vol] 0.5 mg/dL Normal 0.2-1.0 [facility] Comment on above: Performed By: #### CMP ####[facility] Geaxqefahw7114 [place] [address]Dr. Yuki Diaz Calcium [Mass/Vol] 8.5 mg/dL Normal 8.5-10.[address] [facility] Comment on above: Performed By: #### CMP ####[facility] Kdaatccnsx3207 [place] [address]Dr. Yuki Joe Chloride [Moles/Vol] 110 mmol/L Critically high 98-107 [facility] Comment on above: Performed By: #### CMP ####[facility] Xpnmtbmbch7185 [place] [address]Dr. Yuki Joe CO2 [Moles/Vol] 26.1 mmol/L Normal 21.0-32.[address] [facility] Comment on above: Performed By: #### CMP ####[facility] Mroryocatu3693 [place] [address]Dr. Yuki Joe Creatinine [Mass/Vol] 1.71 mg/dL Critically high 0.70-1.30 [facility] Comment on above: Performed By: #### CMP ####[facility] Usgedqlzxf4502 [place] [address]Dr. Yuki Joe EGFR-AF UGANDAN 47 mL/min/1.73m2 Critically low >=[address] [facility] Comment on above: Performed By: #### CMP ####[facility] Lgxmismqpl0034 [place] [address]Dr. Monsealyssa Joe EGFR-NON AF UGANDAN 39 mL/min/1.73m2 Critically low >=[address] [facility] Comment on above: Performed By: #### CMP ####[facility] Iklekupznh0117 [place] [address]Dr. Yuki Joe Globulin (S) [Mass/Vol] 3.4 g/dL Normal [facility] Comment on above: Performed By: #### CMP ####[facility] Jrnajjxkkh9450 [place] [address]Dr. Yuki Diaz Glucose [Mass/Vol] 211 mg/dL Critically high 74-106 [facility] Comment on above: Performed By: #### CMP ####[facility] Dqjvhzsovb8606 [place] [address]Dr. Yuki Diaz Potassium [Moles/Vol] 4.5 mmol/L Normal 3.5-5.1 [facility] Comment on above: Performed By: #### CMP ####[facility] Cozbyylvgk5885 [place] [address]Dr. Yuki Diaz Protein [Mass/Vol] 6.4 g/dL Normal 6.4-8.2 [facility] Comment on above: Performed By: #### CMP ####[facility] Lytuapaque0640 [place] [address]Dr. Yuki Diaz Sodium [Moles/Vol] 145 mmol/L Normal 136-145 [facility] Comment on above: Performed By: #### CMP ####[facility] Pxiluyrvfc6664 [place] [address]Dr. Yuki Diaz Urea nitrogen [Mass/Vol] 33.0 mg/dL Critically high 7.0-18.0 [facility] Comment on above: Performed By: #### CMP ####[facility] Cbbohnmibz3892 [place] [address]Dr. Yuki Diaz Urea nitrogen/Creatin ine [Mass ratio] 19.3 mg/mg Normal [facility] Comment on above: Performed By: #### CMP ####[facility] Vlygmjqlyt3983 [place] [address]Dr. Yuki Joe Lab Reportson 12-15-2021 Lab Reports [id number]:127 Normal [facility] BASIC METABOLIC PANELon 08-0 Calcium mass conc 9.1 mg/dL Normal 8.6-10.3 [facility] Comment on above: Order Comment: No: Do not add to previou s draw Performed By: #### 5 0103 ####[facility] [place] [address], [facility] Chloride molar conc 104 mmol/L Normal 98-107 [facility] Comment on above: Order Comment: No: Do not add to previou s draw Performed By: #### 5 0103 ####[facility] [place] [address], [place] CO2 molar conc 27 mmol/L Normal 21-31 [facility] Comment on above: Order Comment: No: Do not add to previou s draw Performed By: #### 5 0103 ####[facility] [place] [address], [place] Creatinine mass conc 1.29 mg/dL Normal 0.70-1.30 [facility] Comment on above: Order Comment: No: Do not add to previou s draw Performed By: #### 5 0103 ####[facility] [place] [address], [place] GFR/1.73 sq M predicted among blacks MDRD vol rate/area (S/P/Bld) mL/min/{1.73_m2} Normal >60 [facility] Comment on above: Order Comment: No: Do not add to previou s draw Result Comment: Calc ulation may not be valid for patients over 70 years Performed By: #### 5 0103 ####[facility] [place] [address], [place] GFR/1.73 sq M predicted among non-blacks MDRD vol rate/area (S/P/Bld) 54 ml/min/1.73sq m Abnormal >60 [facility] Comment on above: Order Comment: No: Do not add to previou s draw Result Comment: Calc ulation may not be valid for patients over 70 years Performed By: #### 5 0103 ####[facility] [place] [address], [facility] Glucose mass conc 109 mg/dL High 70-100 [facility] Comment on above: Order Comment: No: Do not add to previou s draw Performed By: #### 5 0103 ####[facility] [place] [address], [facility] Potassium molar conc 3.6 mmol/L Normal 3.5-5.1 [facility] Comment on above: Order Comment: No: Do not add to previou s draw Performed By: #### 5 0103 ####[facility] [place] [address], [facility] Sodium molar conc 139 mmol/L Normal 136-145 [facility] Comment on above: Order Comment: No: Do not add to previou s draw Performed By: #### 5 0103 ####[facility] [place] [address], [facility] Urea nitrogen mass conc 19 mg/dL Normal 7-25 [facility] Comment on above: Order Comment: No: Do not add to previou s draw Performed By: #### 5 0103 ####[facility] CBC COMPLETE BLOOD COUNTon 0 - Erythrocyte distribution width Auto Ratio (RBC) 13.2 % Normal 11.5-15.0 [facility] Comment on above: Order Comment: No: Do not add to previou s draw Performed By: #### 5 0103 ####[facility] [place] [address], [facility] Hematocrit Auto Volume Fraction (Bld) 42.2 % Normal 39.0-50.0 [facility] Comment on above: Order Comment: No: Do not add to previou s draw Performed By: #### 5 0103 ####[facility] Hemoglobin mass conc (Bld) 13.9 g/dL Normal 13.0-17.0 [facility] Comment on above: Order Comment: No: Do not add to previou s draw Performed By: #### 5 0103 ####[facility] MCH Auto Entitic mass (RBC) 29.7 pg Normal 27.0-33.0 [facility] Comment on above: Order Comment: No: Do not add to previou s draw Performed By: #### 5 0103 ####[facility] MCHC Auto mass conc (RBC) 32.9 g/dL Normal 32.0-35.0 [facility] Comment on above: Order Comment: No: Do not add to previou s draw Performed By: #### 5 0103 ####[facility] MCV Auto Entitic volume (RBC) 90.2 fL Normal 82.0-98.0 [facility] Comment on above: Order Comment: No: Do not add to previou s draw Performed By: #### 5 0103 ####[facility] Nucleated RBC/100 WBC Ratio (Bld) 0 % Normal 0-0 [facility] Comment on above: Order Comment: No: Do not add to previou s draw Performed By: #### 5 0103 ####[facility] [place] [address], [facility] PLAT CNT 226 10*3/uL Normal 150-400 [facility] Comment on above: Order Comment: No: Do not add to previou s draw Performed By: #### 5 0103 ####[facility] RBC Auto #/vol (Bld) 4.68 10*6/uL Normal 4.20-5.70 [facility] Comment on above: Order Comment: No: Do not add to previou s draw Performed By: #### 5 0103 ####[facility] WBC Auto #/vol (Bld) 6.80 10*3/uL Normal 4.00-10.60 [facility] Comment on above: Order Comment: No: Do not add to previou s draw Performed By: #### 5 0103 ####[facility] Cardiovascular Lab Reporton 03-10-2018 Cardiovascular Lab Report [facility] Patient Name: [facility] MR #: [id number] Physician: Oren Zafar M.D.Medicine Service Date: 03/09/2018Division of Birthdate: 2Cardiology Room #: 3CD [id number] CardiovascularServicRyan [place] [address]Phone Fax Cardiovascular Laboratory ReportCARDIAC CATHETERIZATION REPORTINDICATION: Sheng [...] signed informed consent. He was brought to cath lab tech in a fasting state.The right groin area was prepped and draped in usual fashion. Usingmicropuncture technique, the right common femoral artery was accessed. Theinner cannula was advanced, limited femoral angiography was performed.Followed by upsizing to a 6-Faroese x 11 cm sheath. Bilateral selectivecoronary angiography was then performed using 6-Faroese JL4 and EP9xwzlfbehul catheters. The 6-Faroese JR4 diagnostic catheter was used toselectively engage the radial graft to the OM2 and saphenous venous graftto the PDA branch. Angiography was performed. Catheter was removed. A6-Faroese GEOVANNY catheter was used to selectively engage the left subclavianartery and then selectively engage the left internal mammary artery.Angiography was performed. Catheter was removed.Heparin was administered intravenously and therapeutic ACT confirmed duringthe procedure. A 6-Faroese XB 3.0 guiding catheter was advanced and used toengage the left main coronary ostium. A [place] wire was advanced into thedistal circumflex. Balloon angioplasty in the mid circumflex was performedusing Emerge 3.0 x 15 mm balloon inflated at 10 atmospheres. Angiographyof this revealed suboptimal result. Therefore, a Synergy 3.0 x 24 mmdrug-eluting stent was deployed at 12 atmospheres and post dilated using NCQuantum [place] 3.0 x 20 mm noncompliant balloon inflated at 18 atmospheresthroughout the length of the stent. Angiography after administration ofintracoronary nitroglycerin showed excellent result with reduction of thestenosis to 0%. No evidence of dissection or perforation. The guidingcatheter was removed. The right femoral arteriotomy was managed with a6-Faroese Angio-Seal device with good hemostasis. He was [...] The distal LAD has moderate diffuse disease yaphoif61%-70% beyond the anastomosis of the VEGA graft.Circumflex [...] 03/09/2018/06:08 P/Oren Simon M.D.Date Trans: 03/10/2018 04:31 A/mmoDN_[id number]: Derrick Lopez M.D. [address] [place] [id number] [place] [facility] Discharge Summaryon 03-10-20 Discharge Summary MR#: [id number] [facility] Sheng B[facility] Admitted: [...] as listed above, who was sent from [facility] due to concernof possible ACS. Apparently, the patient presented to [place] complainingof dizziness and vomiting, which was his presenting complaint prior toneeding his last CABG 16 years ago. EKG at [place] showed new T-waveinversions in the inferior leads, not there on previous EKG. Firsttroponin was negative and server developer here at [facility], recommended to beingthe patient to be sent to [facility] for cardiac cath. The patient was admittedto Medicine on step-down service and Cardiology was consulted. The patientpreviously had stress test within the past 2 years, which was negative andrecent echocardiogram per patient history, which was performed 6 months agoshowed improvement regarding wall motion abnormalities and ejectionfraction. The patient was taken to cath lab tech following day after admission,revealing patent 3/3 bypass [...] taking and to discuss high-intensity statinwith his server developer, which he will be follow up with [...] Dict: 03/10/2018/12:04 P/TAYLOR Lua-CDate Trans: 03/10/2018 07:17 P/Esdras_JN:[id number]: Derrick Lopez M.D. [address] [place] [id number] Normal [facility] POC GLUCOSE LABon 03-10-2018 Glucose mass conc 256 mg/dL High 70-100 [facility] Comment on above: Performed By: #### 33191, 93111, 02222, 67599, 24164 ####[facility] [place] [address], [facility] Glucose mass conc 160 mg/dL High 70-100 [facility] Comment on above: Performed By: #### 23107, 32997, 87822, 31977, 37115 ####[facility] [place] [address], [facility] BASIC METABOLIC PANELon Calcium mass conc 9.1 mg/dL Normal 8.6-10.3 [facility] Comment on above: Order Comment: No: Do not add to previou s draw Performed By: #### 5 0103 ####[facility] [place] [address], [facility] Chloride molar conc 103 mmol/L Normal 98-107 [facility] Comment on above: Order Comment: No: Do not add to previou s draw Performed By: #### 5 0103 ####[facility] [facility] [place] [address], [place] CO2 molar conc 28 mmol/L Normal 21-31 [facility] Comment on above: Order Comment: No: Do not add to previou s draw Performed By: #### 5 0103 ####[facility] [place] [address], [place] Creatinine mass conc 1.20 mg/dL Normal 0.70-1.30 [facility] Comment on above: Order Comment: No: Do not add to previou s draw Performed By: #### 5 0103 ####[facility] [place] [address], [facility] GFR/1.73 sq M predicted among blacks MDRD vol rate/area (S/P/Bld) mL/min/{1.73_m2} Normal >60 [facility] Comment on above: Order Comment: No: Do not add to previou s draw Result Comment: Calc ulation may not be valid for patients over 70 years Performed By: #### 5 0103 ####[facility] [place] [address], [facility] GFR/1.73 sq M predicted among non-blacks MDRD vol rate/area (S/P/Bld) 59 ml/min/1.73sq m Abnormal >60 [facility] Comment on above: Order Comment: No: Do not add to previou s draw Result Comment: Calc ulation may not be valid for patients over 70 years Performed By: #### 5 0103 ####[facility] [facility] [place] [place] [address], [facility] Glucose mass conc 96 mg/dL Normal 70-100 [facility] Comment on above: Order Comment: No: Do not add to previou s draw Performed By: #### 5 0103 ####[facility] [facility] [place] [place] [address], [place] Potassium molar conc 3.7 mmol/L Normal 3.5-5.1 [facility] Comment on above: Order Comment: No: Do not add to previou s draw Performed By: #### 5 0103 ####[facility] [place] [address], [place] Sodium molar conc 140 mmol/L Normal 136-145 [facility] Comment on above: Order Comment: No: Do not add to previou s draw Performed By: #### 5 0103 ####[facility] [place] [address], [place] Urea nitrogen mass conc 19 mg/dL Normal 7-25 [facility] Comment on above: Order Comment: No: Do not add to previou s draw Performed By: #### 5 0103 ####[facility] [facility].[address] POC GLUCOSE LABon 03-09-2018 Glucose mass conc 155 mg/dL High 70-100 [facility] Comment on above: Performed By: #### 89985 ####[facility] [facility] Glucose mass conc 91 mg/dL Normal 70-100 [facility] Comment on above: Performed By: #### 60190 ####[facility] [facility].[address] Glucose mass conc 107 mg/dL High 70-100 [facility] Comment on above: Performed By: #### 78445 ####[facility] [facility].[address] Glucose mass conc 115 mg/dL High 70-100 [facility] Comment on above: Performed By: #### 94924 ####[facility] [facility].[address] UFH HEPARIN ASSAYon 03-09-20 18 UNFRACTIONATED HEPARIN 0.42 IU/mL Normal 0.30-0.70 [facility] Comment on above: Result Comment: Rivaroxaban and Apixaban will interfere with the anti Xa assay used tomonitor UFH and LMWH. Performed By: #### 5 0103 ####[facility] [facility] [place] [address], [facility] UNFRACTIONATED HEPARIN 0.27 IU/mL Low 0.30-0.70 [facility] Comment on above: Result Comment: Rivaroxaban and Apixaban will interfere with the anti Xa assay used tomonitor UFH and LMWH. Performed By: #### 5 0103 ####[facility] [facility].[address] APTTon 03-08-2018 aPTT Coag time (Bld) 68.3 s High 25.0-35.0 [facility] Comment on above: Order Comment: No: Do [...] UFH <0.1 Performed By: #### 5 7307, 43982 ####[facility] BASIC METABOLIC PANELon Calcium mass conc 9.4 mg/dL Normal 8.6-10.3 [facility] Comment on above: Order Comment: No: Do not add to previou s draw Performed By: #### 9 9909, 19296, 22780, 59209, 75172 ####[facility] [facility] [place] [address], [facility] Chloride molar conc 105 mmol/L Normal 98-107 [facility] Comment on above: Order Comment: No: Do not add to previou s draw Performed By: #### 9 9909, 48879, 17085, 85765, 75662 ####[facility] [facility].[address] CO2 molar conc 28 mmol/L Normal 21-31 [facility] Comment on above: Order Comment: No: Do not add to previou s draw Performed By: #### 9 9909, 30263, 41207, 75598, 20433 ####[facility] [facility] [place] [address], [facility] Creatinine mass conc 1.13 mg/dL Normal 0.70-1.30 [facility] Comment on above: Order Comment: No: Do not add to previou s draw Performed By: #### 9 9909, 22945, 09484, 99067, 67852 ####[facility] [facility] [place] [place] [address], [facility] GFR/1.73 sq M predicted among blacks MDRD vol rate/area (S/P/Bld) mL/min/{1.73_m2} Normal >60 [facility] Comment on above: Order Comment: No: Do not add to previou s draw Result Comment: Calc ulation may not be valid for patients over 70 years Performed By: #### 9 9909, 72125, 56627, 54121, 55318 ####[facility] [facility] [place] [address], [facility] GFR/1.73 sq M predicted among non-blacks MDRD vol rate/area (S/P/Bld) mL/min/{1.73_m2} Normal >60 [facility] Comment on above: Order Comment: No: Do not add to previou s draw Result Comment: Calc ulation may not be valid for patients over 70 years Performed By: #### 9 9909, 11354, 29999, 64807, 67705 ####[facility] [facility] [place] [address], [facility] Glucose mass conc 108 mg/dL High 70-100 [facility] Comment on above: Order Comment: No: Do not add to previou s draw Performed By: #### 9 9909, 47634, 50468, 69918, 69322 ####[facility] [facility] [place] [address], [place] Potassium molar conc 3.7 mmol/L Normal 3.5-5.1 [facility] Comment on above: Order Comment: No: Do not add to previou s draw Performed By: #### 9 9909, 78714, 99338, 67455, 94297 ####[facility] [place] [address], [place] Sodium molar conc 141 mmol/L Normal 136-145 [facility] Comment on above: Order Comment: No: Do not add to previou s draw Performed By: #### 9 9909, 97456, 86113, 56441, 18065 ####[facility] Urea nitrogen mass conc 21 mg/dL Normal 7-25 [facility] Comment on above: Order Comment: No: Do not add to previou s draw Performed By: #### 9 9909, 99354, 78831, 75136, 00747 ####[facility] CBC W/DIFFon 03-08-2018 ABS BASOPHILS 0.0 10*3/uL Normal 0.0-0.2 [facility] Comment on above: Performed By: #### 76734 ####[facility] ABS IMM GRANS 0.0 10*3/uL Normal 0.0-0.2 [facility] Comment on above: Performed By: #### 26807 ####[place] [address] [address] ABS NEUTROPHILS 4.4 10*3/uL Normal 1.6-7.6 [facility] Comment on above: Performed By: #### 59585 ####[facility] Basophils Auto #/vol (Bld) 0.6 % Normal 0.0-1.0 [facility] Comment on above: Performed By: #### 46233 ####[facility] Eosinophils Auto #/vol (Bld) 0.3 10*3/uL Normal 0.0-0.5 [facility] Comment on above: Performed By: #### 68092 ####[facility] [facility].[address] Eosinophils/100 WBC Auto (Bld) 4.0 % Normal 0.0-6.0 [facility] Comment on above: Performed By: #### 96252 ####[facility] Erythrocyte distribution width Auto Ratio (RBC) 13.3 % Normal 11.5-15.0 [facility] Comment on above: Performed By: #### 58021 ####[place] [address] [address] Hematocrit Auto Volume Fraction (Bld) 41.7 % Normal 39.0-50.0 [facility] Comment on above: Performed By: #### 88244 ####[place] [address] [address] Hemoglobin mass conc (Bld) 13.7 g/dL Normal 13.0-17.0 [facility] Comment on above: Performed By: #### 23966 ####[address] IMMATURE GRANS 0.3 % Normal 0.0-1.0 [facility] Comment on above: Performed By: #### 22627 ####[place] [address] [address] Lymphocytes Auto #/vol (Bld) 1.7 10*3/uL Normal 1.2-4.0 [facility] Comment on above: Performed By: #### 87196 ####[place] [address] [address] Lymphocytes/100 WBC Auto (Bld) 24.0 % Normal 20.0-45.0 [facility] Comment on above: Performed By: #### 85258 ####[facility] MCH Auto Entitic mass (RBC) 29.7 pg Normal 27.0-33.0 [facility] Comment on above: Performed By: #### 67692 ####[facility] MCHC Auto mass conc (RBC) 32.9 g/dL Normal 32.0-35.0 [facility] Comment on above: Performed By: #### 33172 ####[facility] MCV Auto Entitic volume (RBC) 90.3 fL Normal 82.0-98.0 [facility] Comment on above: Performed By: #### 27370 ####[place] [address] [address] Monocytes Auto #/vol (Bld) 0.6 10*3/uL Normal 0.1-1.0 [facility] Comment on above: Performed By: #### 62269 ####[facility] MONOS 7.9 % Normal 5.0-12.0 [facility] Comment on above: Performed By: #### 74642 ####[place] [address] [address] Neutrophils/100 WBC Auto (Bld) 63.2 % Normal 40.0-72.0 [facility] Comment on above: Performed By: #### 15106 ####[place] [address] [address] Nucleated RBC/100 WBC Ratio (Bld) 0 % Normal 0-0 [facility] Comment on above: Performed By: #### 01185 ####[facility] PLAT CNT 209 10*3/uL Normal 150-400 [facility] Comment on above: Performed By: #### 64813 ####[facility] [facility].[address] RBC Auto #/vol (Bld) 4.62 10*6/uL Normal 4.20-5.70 [facility] Comment on above: Performed By: #### 07285 ####[facility] [facility].[address] WBC Auto #/vol (Bld) 6.93 10*3/uL Normal 4.00-10.60 [facility] Comment on above: Performed By: #### 30622 ####[facility] History and Physicalon 03-08 History and Physical MR#: [id number]. Name: Sheng Bauer Admitted: 03/08/2018 Date of : 1940 Attending Physician: Shiva Seay MD Room #: [id number] Discharge Date: HISTORY AND PHYSICALCHIEF COMPLAINT: Dizziness and vomiting.HISTORY OF PRESENT ILLNESS: This patient is 77-year-old male with pastmedical history of coronary artery disease, status post CABG 16 years ago,hypertension, hyperlipidemia, and diabetes, who was sent from [facility] because of possibility of ACS. The patient presented to [facility] complaining of dizziness and vomiting while he was working on [employer]. The patient stated that he had similar symptoms when he had hisheart attack 16 years ago that ended up having CABG. In the [facility], his EKG showed new T inversions in inferior leads, which theywere not there previously. The 1st troponin was negative. The ER doctorcalled his server developer, Dr. Simon, who [facility] [...] Dict: 03/08/2018/05:06 P/Lizbeth Singh Trans: 03/08/2018 05:31 P/mmoDN_JN:[id number] Normal [facility] LIVER BATTERYon 03-08-2018 Albumin mass conc 4.0 g/dL Normal 3.5-5.7 [facility] Comment on above: Order Comment: No: Do not add to previou s draw Performed By: #### 9 9909, 69379, 43115, 68457, 92263 ####[facility] [place] [address], [facility] ALKALINE PHOSPH 53 IU/L Normal 34-104 [facility] Comment on above: Order Comment: No: Do not add to previou s draw Performed By: #### 9 9909, 86284, 46825, 42167, 52989 ####[facility] [place] [address], [facility] ALT enzyme act/vol 21 U/L Normal 7-52 [facility] Comment on above: Order Comment: No: Do not add to previou s draw Performed By: #### 9 9909, 39604, 70112, 94899, 20394 ####[facility] [place] [address], [place] AST enzyme act/vol 19 U/L Normal 13-39 [facility] Comment on above: Order Comment: No: Do not add to previou s draw Performed By: #### 9 9909, 46707, 66879, 58430, 72597 ####[facility] [place] [address], [place] Bilirubin mass conc 0.8 mg/dL Normal 0.3-1.0 [facility] Comment on above: Order Comment: No: Do not add to previou s draw Performed By: #### 9 9909, 71591, 39224, 38770, 27942 ####[facility] [place] [address], [place] Bilirubin.direct mass conc 0.2 mg/dL Normal 0.0-0.2 [facility] Comment on above: Order Comment: No: Do not add to previou s draw Performed By: #### 9 9909, 92765, 84005, 18139, 86092 ####[facility] [place] [address], [facility] Protein mass conc 7.1 g/dL Normal 6.0-8.3 [facility] Comment on above: Order Comment: No: Do not add to previou s draw Performed By: #### 9 9909, 98832, 79165, 96336, 79646 ####[facility] [place] [address], [facility] MAGNESIUM BLOODon 03-08-2018 Magnesium mass conc 2.0 mg/dL Normal 1.9-2.7 [facility] Comment on above: Order Comment: No: Do not add to previou s draw Performed By: #### 9 9909, 60459, 60413, 43477, 58267 ####[facility] [place] [address], [facility] PHOSPHORUS BLOODon 8 Phosphate mass conc 3.2 mg/dL Normal 2.5-5.0 [facility] Comment on above: Order Comment: No: Do not add to previou s draw Performed By: #### 9 9909, 74516, 61256, 16684, 07401 ####[facility] [place] [address], [facility] POC GLUCOSE LABon 03-08-2018 Glucose mass conc 164 mg/dL High 70-100 [facility] Comment on above: Performed By: #### 09399 ####[facility] [place] [address], [facility] Glucose mass conc 114 mg/dL High 70-100 [facility] Comment on above: Performed By: #### 82523 ####[facility] PROTHROMBIN TIMEon 8 INR Coag RelTime (PPP) 1.11 {INR} Normal 0.91-1.16 [facility] Comment on above: Order Comment: No: Do [...] OF ACTION, CLINICALEFFECTIVENESS, AND OPTIMAL THERAPEUTIC RANGE. [id number]. Performed By: #### 5 7307, 74911 ####[facility] [facility].[address] Prothrombin time (PT) Coag time (PPP) 14.3 s Normal 12.3-14.8 [facility] Comment on above: Order Comment: No: Do not add to previou s draw Result Comment: ALL RESULTS MUST BE INTERPRETED WITH RESPECT TO BLOOD DRAWING ARTIFACTOR DILUTION ERROR OF ANTICOAGULANT AT THE TIME OF SAMPLING. Performed By: #### 5 7307, 30395 ####[facility] TROPONIN-Ion 03-08-2018 Troponin I.cardiac mass conc 0.01 ng/mL Normal 0.00-0.04 [facility] Comment on above: Order Comment: No: Do not add to previou s draw Result Comment: REFE RENCE RANGES: 0.00 - 0.04 ng/ml NORMAL 0.05 - 0.50 ng/ml INDETERMINATE > 0.50 ng/ml CONSISTENT WITH AN M.I. Performed By: #### 9 9909, 33194, 46898, 68957, 05442 ####[facility] Vital Signs Date Time Vital Sign Value Performing Clinician Kristie kerr 02-15-2022 10:03-0400 Blood Pressure Location César Gordon Jr. [facility] 02-15-2022 10:03-0400 Diastolic blood pressure 66 mm[Hg] César Gordon Jr. [facility] 02-15-2022 10:03-0400 Heart rate 80 /min César Gordon Jr. [facility] 02-15-2022 10:03-0400 Respiratory rate 16 /min César Gordon Jr. [facility] 02-15-2022 10:03-0400 Systolic blood pressure 88 mm[Hg] César Gordon Jr. [facility] Encounters Encounter Date Encounter Type Care Provider Facility Start: 07-14-2023 End: 07-14-2023 ambulatory OREN SIMON [facility] Start: 03-13-2023 End: 03-13-2023 ambulatory LEATHA MARROQUIN [facility] Start: 12-15-2022 End: 12-15-2022 ambulatory HUANG YOUNGBLOOD . Facility:[facility] Start: 11-23-2022 End: 11-24-[address] DERRICK LOPEZ . Facility:[facility] Start: 10-25-2022 End: 10-27-2022 Evaluation and management of inpatient DR DERRICK LOPEZ . Facility:[facility] Start: 10-22-2022 End: 10-22-2022 ambulatory LEVAR CABA . Facility:[facility] Start: 10-13-2022 End: 10-14-[address] DERRICK LOPEZ . Facility:[facility] Start: 09-20-2022 End: 09-21-2022 ambulatory TASHA OROZCO Facility:[facility] Start: 09-20-2022 End: 09-20-2022 Patient encounter procedure TASHA OROZCO [facility] Start: 09-19-2022 End: 09-20-[address] DERRICK LOPEZ . Facility:[facility] Start: 09-12-2022 End: 09-12-2022 [facility] Start: 09-02-2022 End: 09-03-[address] DERRICK [...] Start: 02-15-2022 End: 02-16-2022 ambulatory César Gordon Facility:[facility] Start: 02-15-2022 End: 07-12-2022 Patient encounter procedure César Gordon Jr. [facility] Start: 02-09-[address] DERRICK LOPEZ [...] Evaluation and management of inpatient ZAYRA RAMIREZ Facility:[facility] Procedures Date Procedure Procedure Detail Performing Clinician Start: 11-23-[address] BRIANNE LOPEZ . Comment on above: Performed By: #### V ITAD, PSASC ####[facility] [id number] [place] [address]Dr. Yuki Diaz Start: 10-25-2022 Transfusion of Nonau tologous Red Blood Cells into Peripheral Vein, Percutaneous Approach DR DERRICK LOPEZ . Start: 06-14-[address] BRIANNE LOPEZ . Comment on above: Performed By: #### P SAD ####[facility] [id number] [place] [id number]. Yuki Diaz Start: 03-09-2018 DILATION OF 1 COR AR T WITH DRUG-ELUT INTRA, PERC APPROACH OREN JORBFERCHO Start: 03-09-2018 FLUOROSCOPY OF L INT MAMM GRAFT USING OTH CONTRAST OREN JORBFERCHO Start: 03-09-2018 FLUOROSCOPY OF MULT COR A GRAFT USING OTH CONTRAST OREN SIMON Start: 03-09-2018 FLUOROSCOPY OF MULTI PLE CORONARY ARTERIES USING OTH CONTRAST OREN SIMON Start: 03-30-2016 Cystourethroscopy [facility] dilation of urethral stricture César Gordon [...] César Gordon Jr. [facility] 05-13-2021 SARS-CoV-2 (COVID-19 ) mRNA BNT-162b2 vax TASHA OROZCO [facility] 05-10-2021 influenza virus vaccine, unspecified formulation TASHA OORZCO [facility] 12-05-2020 SARS-CoV-2 (COVID-19 ) mRNA BNT-162b2 vax César Gordon Jr. [facility] 11-05-2020 SARS-CoV-2 (COVID-19 ) mRNA BNT-162b2 vax César Gordon Jr. [facility] 10-02-2020 SARS-CoV-2 (COVID-19 ) mRNA BNT-162b2 vax TASHA OROZCO [facility] 09-04-2020 SARS-CoV-2 (COVID-19 ) mRNA BNT-162b2 vax TASHA OROZCO [facility] 05-06-2020 influenza virus vaccine, unspecified formulation TASHA OROZCO [facility] 05-30-2017 influenza, unspecifi ed formulation TASHA OROZCO [facility] 05-30-2017 pneumococcal conjuga te vaccine, 13 valent TASHA OROZCO [facility] 05-06-2016 influenza virus vaccine, unspecified formulation TASHA OROZCO [facility] Payers Date Payer Category Payer Private Health Insurance [id number] Self-pay 1940 Unknown [id number] 2.16.8 40.1.155163.3.579.2.727 1942 Unknown [id number] 2.16.8 40.1.315872.3.579.2.727 1942 Unknown [id number] 2.16.84 0.1.125990.3.579.2.593 1942 Unknown [id number] 2.16.84 0.1.138097.3.579.2.593 1942 Unknown [id number] 2.16.84 0.1.942618.3.579.2.593 1942 Unknown [id number] 2.16.84 0.1.970872.3.579.2.593 1942 Unknown [id number] 2.16.84 0.1.369999.3.579.2.593 1942 Unknown [id number] 2.16.84 0.1.044749.3.579.2.593 1942 Unknown [id number] 2.16.84 0.1.880261.3.579.2.593 1942 Unknown [id number] 2.16.84 0.1.225680.3.579.2.593 1942 Unknown [id number] 2.16.84 0.1.785426.3.579.2.593 1942 Unknown [id number] 2.16.84 0.1.029709.3.579.2.593 1942 Unknown [id number] 2.16.84 0.1.179940.3.579.2.593 1942 Unknown [id number] 2.16.84 0.1.946555.3.579.2.593 1942 Unknown [id number] 2.16.84 0.1.325748.3.579.2.593 1942 Unknown [id number] 2.16.84 0.1.901406.3.579.2.593 1942 Unknown [id number] 2.16.84 0.1.713159.3.579.2.593 1942 Unknown [id number] 2.16.84 0.1.400364.3.579.2.593 1942 Unknown [id number] 2.16.84 0.1.981930.3.579.2.593 1942 Unknown [id number] 2.16.84 0.1.291667.3.579.2.593 1942 Unknown [id number] 2.16.84 0.1.882926.3.579.2.593 1942 Unknown [id number] 2.16.84 0.1.656718.3.579.2.593 1942 Unknown [id number] 2.16.84 0.1.420477.3.579.2.593 1942 Unknown [id number] 2.16.84 0.1.141666.3.579.2.593 1942 Unknown [id number] 2.16.84 0.1.548454.3.579.2.593 1942 Unknown [id number] 2.16.84 0.1.281992.3.579.2.593 [facility] [id number] Social History Date Type Detail Facility Start: 02-15-2022 Tobacco smoking status Ex-smoker (fi nding) [facility] Sex Assigned At Male [facility] Functional Status Date Assessment Result Facility 02-15-2022 Functional Status N/A [facility] Clinical Notes 02-15-2022 to 07-14-2023 Note Date & Type Note Facility 07-14-2023 Note [facility] Subjective Sheng Bauer is a 83 y.o. year old male patient being seen for 3 mo follow up chronic systolic heart failure, CAD, and hypertension. He was admitted to [facility] in Apr 2023. Doing very well since then, as he denies chest pain, SOB, LE edema, and palpitations. Patient Active Problem List Diagnosis Coronary arteriosclerosis Hypertensive disorder Hx of CABG Chronic systolic heart failure ([facility]/HCC) Hx of deep venous thrombosis Diabetes mellitus [...] anemia, unspecified Major depressive disorder, recurrent, unspecified (CMS/[facility]) Limitation of activities due to disability [...] OM) in 2001. He has history of [place] in 2001. He has hypertension on treatment. He has CKD. In 2017 he was admitted to [facility] transferred from the [facility] [place] with symptoms of unstable angina and new onset T-wave inversions in the inferolateral leads. Cardiac cath was done and he underwent stenting of the circumflex with Synergy TONYA on 03/09/2018. He did get admitted in December 2019 to [facility] after a tree fell on [...] left side. Heart (more content not included)... [facility] 03-13-2023 Note Eliquis was decrease d to 2.5 mg bid per PCP in light of CKD, bruising of extremities and noted fall earlier this year. 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 [facility] 03-13-2023 Note [facility] II-III, current ly euvolemic without exacerbation, weight is currently down from last visit and overall pt is doing well Continue GDMT- ASA, lipitor, coreg, entrestot and aldatone Diuretic therapy- bumex 2 mg daily Monitor daily weights, I&O, fluid restriction 1.5-2L/day, renal function and electrolytes [facility] 03-13-2023 Note Patient here for 6 m o follow up CAD, hypertension, CHF, and hx of DVT. He was admitted to [facility] in January 2023 for pneumonia. [...] All other systems reviewed and are negative. [facility] 03-13-2023 Note [facility] PROGR ESS NOTE [...] hx of DVT. He was admitted to [facility] in March s/p fall, January [...] OM) in 2001. He has history of [place] in 2001. He has hypertension on treatment. He has CKD with Cr previously around 1.5. In 2017 he was admitted to [facility] transferred from the [facility] [place] with symptoms of unstable angina and new onset T-wave inversions in the inferolateral leads. Cardiac cath was done and he underwent stenting of the circumflex with Synergy TONYA on 03/09/2018. He did get admitted in December 2019 to [facility] after a tree fell on [...] in the mo (more content not included)... [facility] 09-12-2022 Note [facility] Subjective Sheng Bauer is a 82 [...] OM) in 2001. He has history of [place] in 2001. He has hypertension on treatment. He has CKD with Cr previously around 1.5. In 2017 he was admitted to [facility] transferred from [facility] [place] with symptoms of unstable angina and new onset T-wave inversions in the inferolateral leads. Cardiac cath was done and he underwent stenting of the circumflex with Synergy TONYA on 03/09/2018. He did get admitted in December 2019 to [facility] after a tree fell on [...] amitriptyline (Elavil) 2 (more content not included)... [facility] 02-15-2022 Hospital Discharge instructions Patient Education 02/15/2022 [...] including vitamins, herbs, eye drops, creams, and hyvl-jmn-erdirpg medicines. This also includes: ?Medicines to assist [...] 08/26/2005 Document Revised: 07/06/2018 Document Reviewed: 04/30/2018 [employer] Patient Education 2020 [employer]. Follow Up Care 08/10/2021 09:51:10 With:Evan Ochoa MD, César Vega, URO Address: [facility] [address], [place] [id number]- When:Within 6 Month(s) Comments:w/ psa [facility] Evaluation + Plan note Future Appointments Appointment Date:08/23/2022 10:30:00 AM Scheduled Provider:César Gordon Jr., MD Location:[facility] Appointment Type:URO Office Visit Diagnostic Tests PendingPSA Total 02/15/22 [facility] Hospital course Narrative No data available for this section [facility] Hospital Discharge instructions No data available for this section [facility] Progress note No data available for this section [facility] Summary Purpose Family History No Family [...] and content) DATE CREATED AUTHOR 03/19/2018 [facility] DATE CREATED AUTHOR AUTHOR'S ORGANIZ ATION 09/21/2022 [facility] DATE CREATED AUTHOR AUTHOR'S ORGANIZ ATION 12/16/2022 [facility] [place] [facility] DATE CREATED AUTHOR AUTHOR'S ORGANIZ ATION 07/17/2023 [facility] Care Team (unrecognized sect ion and content) Personnel Name: Derrick Lopez MD Address: [address] [place] [address] Personnel Name: Derrick Lopez MD Address: Address: [address] [place] [address] FOR RECORDS PERTAINING TO PATIENTS WHO ARE [...] BE BASED ON THE PRIMARY CLINICAL RECORDS. [facility]. provides no warranty or guarantee of the accuracy or completeness of information in this document.
--- NOTE | 2024-03-03 17:18 | ECG_ITS ---
[facility] Test Date: 2024-03-03 Pat Name: JAJA FRANKLIN Department: Room: - Gender: Male Transfer Agent: : 1940 Requested By: DERRICK AYALA Order Number: [id number] Reading MD: DERRICK AYALA Measurements Intervals [place] Rate: 84 P: [id number] ID: [id number] QRS: 13 QRSD: 82 T: 221 QT: 364 QTc: 405 Interpretive Statements 1210 Atrial fibrillation [address] depression, probably digitalis effect 45137 Twave abnormality, possible lateral ischemia or digitalis effect 76268 Twave abnormality, possible inferior ischemia or digitalis effect 9150 abnormal ECG Compared to ECG 02/22/2024 10:57:12 No significant changes Electronically Signed On 03-04-2024 7:28:51 EDT by DERRICK AYALA
--- NOTE | 2024-03-03 17:19 | XR_ITS ---
The [address] [address] Patient Name: JAJA FRANKLIN MRN: [id number] date: 1940 Sex: M Assigned Patient Location: ER Current Patient Location: ER Accession/Order Number: [id number] Exam Date: 03/03/2024 18:05 Report Date: 03/03/2024 18:41 At the request of: SHAMAR ROJO Procedure: XR chest 1V EXAM: XR chest 1V HISTORY: Shortness of breath, COVID-positive for a week COMPARISON: 02/22/2024 and earlier. TECHNIQUE: AP portable upright chest x-ray. FINDINGS: There are new groundglass densities the right lung perihilar area and right lung base consistent with interstitial pneumonitis. Right apical area is clear and unchanged. Prominent markings left lung stable without new density. Cardiac mediastinal contour prominent unchanged. Sternotomy wires. Pleural effusion or pneumothorax. XR/XR chest 1V IMPRESSION: Groundglass infiltrates right lung new from previous consistent with interstitial pneumonitis. Electronically authenticated by: DOMENICA HMAMOND Date: 03/03/2024 18:41
--- NOTE | 2024-03-03 17:21 | ED.GENADUL1 ---
HPI HPI - General Adult General Chief complaint: Shortness of Breath/Dyspnea Stated complaint: SOB Time Seen by Provider: 03/03/24 17:14 Source: patient Mode of arrival: ambulance History of Present Illness HPI narrative: 83-year-old male presents for shortness of breath. He is in an ECF and tested positive for COVID a week ago. His only complaint is shortness of breath. He does not seem to have any chest pain. It does not appear that he had a fever. No vomiting or diarrhea. He was sent in by ambulance to be evaluated. Related Data Home Medications ?Medication ?Instructions ?Recorded ?Confirmed atorvastatin 20 mg tablet 20 mg PO .QHS 01/28/23 02/22/24 ferrous sulfate 325 mg (65 mg 325 mg PO .QHS 01/28/23 02/22/24 iron) tablet (FeroSul) levothyroxine 50 mcg tablet 50 mcg PO .qhs 01/28/23 02/22/24 aspirin 81 mg tablet,delayed 81 mg PO DAILY 01/30/23 02/22/24 release (Adult Aspirin Regimen) amitriptyline 50 mg tablet 50 mg PO BEDTIME 04/30/23 02/22/24 carvedilol 25 mg tablet 25 mg PO BID 04/30/23 02/22/24 bumetanide 2 mg tablet 2 mg PO .qd 02/06/24 02/22/24 isosorbide mononitrate 60 mg 120 mg PO .qd 02/06/24 02/22/24 tablet,extended release 24 hr spironolactone 25 mg tablet 12.5 mg PO .qd 02/06/24 02/22/24 azithromycin 250 mg tablet See Rx Instructions PO .COMPLEX 02/22/24 02/22/24 (Zithromax) cefdinir 300 mg capsule 600 mg PO DAILY 02/22/24 02/22/24 insulin detemir U-100 100 unit/mL 38 unit subcut QAM 02/22/24 02/22/24 (3 mL) subcutaneous pen (Levemir FlexPen) Previous Rx's ?Medication ?Instructions ?Recorded apixaban 5 mg tablet (Eliquis) 2.5 mg (1/2 x 5 mg) PO BID #60 tabs 02/02/23 insulin aspart U-100 100 unit/mL 2 - 14 unit (0.02 - 0.14 mL) 02/08/23 (3 mL) subcutaneous pen (Novolog subcut ACHS #15 mL FlexPen U-100 Insulin aspart) hydralazine 25 mg tablet 25 mg PO TID #90 tabs 02/09/24 sacubitril 97 mg-valsartan 103 mg 1 tab PO BID #60 tabs 02/09/24 tablet (Entresto) benzonatate 100 mg capsule 200 mg (2 x 100 mg) PO Q8H PRN 02/24/24 Cough 3 days #6 caps Allergies Allergy/AdvReac Type Severity Reaction Status Date / Time Sulfa (Sulfonamide Allergy Intermediate pass out Verified 02/22/24 10:53 Antibiotics) Opioid HPI Opioid Management Most Recent Opioid Data: Last Pain Scale 0 02/24/24 07:54 Last Pain Intensity 0 02/24/24 07:54 Last ORT Total Score 0 02/22/24 13:26 Last ORT Risk Category Low Risk 02/22/24 13:26 Review of Systems ROS Narrative Not obtainable, age PFSH PFSH Medical History (Updated 03/03/24 @ 18:47 by Darron Tim MD) Acute combined systolic (congestive) and diastolic (congestive) heart failure ?I50.41 - Acute combined systolic (congestive) and diastolic (congestive) heart failure (ICD-10) Frequent falls ?R29.6 - Repeated falls (ICD-10) Generalized weakness ?R53.1 - Weakness (ICD-10) Fall ?W19.XXXA - Unspecified fall, initial encounter (ICD-10) Altered mental status ?R41.82 - Altered mental status, unspecified (ICD-10) 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 ?N18.6 - End stage renal disease (ICD-10) ?D63.1 - Anemia in chronic kidney disease (ICD-10) Hypotension due to medication ?I95.2 - Hypotension due to drugs (ICD-10) Acute hypotension ?I95.9 - Hypotension, unspecified (ICD-10) Cellulitis ?L03.90 - Cellulitis, unspecified (ICD-10) Diabetes ?E11.9 - Type 2 diabetes mellitus without complications (ICD-10) Afib ?I48.91 - Unspecified atrial fibrillation (ICD-10) CHF (congestive heart failure) ?I50.9 - Heart failure, unspecified (ICD-10) Acute renal failure ?N17.9 - Acute kidney failure, unspecified (ICD-10) Peripheral neuropathy ?G62.9 - Polyneuropathy, unspecified (ICD-10) Family History Other Family history of diabetes mellitus Social History Smoking status: Former smoker Non-prescribed substance use: denies use Highest level of school completed/degree received: 10th grade Are you now , , , , never or living with a partner: In a typical week, how many times do you talk on the telephone with family, friends, or neighbors: 3 or more times per week How often do you get together with friends or relatives: twice per week How often do you attend religious or yazidism services: 1-3 times per year Do you belong to any clubs or organizations such as religious groups unions, [employer] or athletic groups, or school groups: no Total score: 1 Score interpretation: A score of less than or equal to 1 indicates the most socially isolated. Little interest or pleasure in doing things: several days Feeling down, depressed, or hopeless: several days Feel stressed/tense/nervous/anxious/difficulty sleeping: not at all Life stressors: recent of family or friend Do you think of yourself as: straight/heterosexual Gender Identity: male Exam Narrative Exam Narrative: Nurses note and vital signs reviewed and patient is not hypoxic. General: The patient appears well and in no apparent distress. Patient is resting comfortably on cart. Skin: Warm, dry, no pallor noted. There is no rash noted. Head: Normocephalic, atraumatic Eye: Normal conjunctiva, no drainage Ears, Nose, Mouth, and Throat: oral mucosa is moist. Nares patent. Cardiovascular: Irregularly irregular Respiratory: Patient is in no distress, no accessory muscle use, a few rhonchi present GI: Soft and nontender Musculoskeletal: The patient has no evidence of calf tenderness, symmetrical pulses noted bilaterally Neurological: Awake alert and oriented Psychiatric: Cooperative Constitutional Vital Signs, click to edit/add: Last Vital Signs Temp 97.8 F 03/03/24 17:06 Pulse 86 03/03/24 18:30 Resp 17 03/03/24 18:30 BP 105/77 03/03/24 18:30 Pulse Ox 98 03/03/24 18:20 O2 Del Method Room Air 03/03/24 17:49 Course Vital Signs Vital signs: Vital Signs Blood Pressure 120/66 03/03/24 17:04 Pulse Oximetry 97 03/03/24 17:04 Temperature 97.8 F 03/03/24 17:06 Pulse Rate 86 03/03/24 18:30 Respiratory Rate 17 03/03/24 18:30 Blood Pressure 105/77 03/03/24 18:30 Pulse Oximetry 98 03/03/24 18:20 Oxygen Delivery Method Room Air 03/03/24 17:49 Medical Decision Making MDM Narrative Medical decision making narrative: X-ray shows infiltrates consistent with his known history of COVID. BUN and creatinine are elevated above his baseline and he is being given IV fluids and will be admitted for IV hydration. Differential Diagnosis Differential Diagnosis: COVID, pneumonia, dehydration, acute kidney injury Lab Data Lab results reviewed: Yes I reviewed the patient's lab results Labs: Lab Results 03/03/24 Range/Units 17:34 WBC 13.3 H (4.0-11.0) 10^3/uL RBC 3.12 L (4.70-6.10) 10^6/uL Hgb 10.2 L (14.0-18.0) g/dL Hct 32.9 L (42.0-54.0) % MCV 105.4 H (80.0-94.0) fL MCH 32.7 (25.9-34.0) pg MCHC 31.0 (29.9-35.2) g/dL RDW 15.0 (11.0-15.0) % Plt Count 192 (150-450) 10^3/uL MPV 10.6 (9.5-13.5) fL Neutrophils # (Manual) 89.00 H (1.4-6.5) 10^3/uL Lymphocytes # (Manual) 3.00 (1.20-3.80) 10^3/uL Monocytes # (Manual) 7.00 H (0.30-0.80) 10^3/uL Eosinophils # (Manual) 1.00 H (0.00-0.70) 10^3/uL Basophils # (Manual) 0.00 (0.00-0.10) 10^3/uL Macrocytosis 2+ [place] Cells 1+ Sodium 143 (136-145) mmol/L Potassium 4.6 (3.5-5.1) mmol/L Chloride 109 H (98-107) mmol/L Carbon Dioxide 25.6 (21.0-32.0) mmol/L Anion Gap 13.0 BUN 87.0 H* (7.0-18.0) mg/dL Creatinine 3.01 H (0.70-1.30) mg/dL Est GFR ( Amer) 24 L (>=60) Est GFR (Non-Af Amer) 20 L (>=60) BUN/Creatinine Ratio 28.9 Glucose 241 H (74-106) mg/dL Calcium 8.6 (8.5-10.1) mg/dL Troponin I High Sens 29.0 (4.0-76.1) pg/mL Imaging Data Chest x-ray: Radiologist's impression: ITS Impressions Chest X-Ray 03/03/24 17:19 IMPRESSION: Groundglass infiltrates right lung new from previous consistent with interstitial pneumonitis. Electronically authenticated by: DOMENICA HAMMOND Date: 03/03/2024 18:41 ECG Data Attestation: I personally reviewed and interpreted this ECG as follows: (EKG on my interpretation shows atrial fibrillation with a rate of 84.) Discharge Plan Discharge Chief Complaint: Shortness of Breath/Dyspnea Clinical Impression: Dehydration Patient Disposition: Admitted As Inpatient Time of Disposition Decision: 18:47 Condition: Good
[2024-03-03 17:49] LABS: Hematocrit 32.9 % (42.0-54.0); Hemoglobin 10.2 g/dL (14.0-18.0); Mean Corpuscular Hemoglobin 32.7 pg (25.9-34.0); Mean Corpuscular Volume 105.4 fL (80.0-94.0); Mean Platelet Volume 10.6 fL (9.5-13.5); Platelet Count 192 10^3/uL (150-450); Red Blood Count 3.12 10^6/uL (4.70-6.10); White Blood Count 13.3 10^3/uL (4.0-11.0)
[2024-03-03 17:58] LABS: BUN Creatinine Ratio 28.9; Calcium 8.6 mg/dL (8.5-10.1); Carbon Dioxide 25.6 mmol/L (21.0-32.0); Chloride 109 mmol/L (98-107); Estimated GFR (African America 24 (>=60); Estimated GFR (Non-African Ame 20 (>=60); Glucose 241 mg/dL (74-106); Potassium 4.6 mmol/L (3.5-5.1); Sodium 143 mmol/L (136-145)
[2024-03-03 18:34] LABS: Burr Cells 1+; Macrocytosis 2+
[2024-03-03] MEDS: 0.9 % SODIUM CHLORIDE 1,000 ML 125 ML IV (18:36)
[2024-03-03 18:58] LABS: Segmented Neut Absolute Manual 11.83 10^3/uL (1.4-6.5)
[2024-03-03 18:59] LABS: Eosinophils Absolute Manual 0.13 10^3/uL (0.00-0.70); Lymphocytes Absolute Manual 0.39 10^3/uL (1.20-3.80); Monocytes Absolute Manual 0.93 10^3/uL (0.30-0.80)
[2024-03-03] MEDS: CEFTRIAXONE 1,000 MG in 0.9 % SODIUM CHLORIDE 50 ML 100 MG IV (20:29)
[2024-03-03 20:34] LABS: Internal Control Within Normal Limits; SARS-CoV-2 Ag POSITIVE (NEGATIVE)
--- OUTSIDE RECORDS SUMMARY | 2024-03-03 20:56 | XMS_ITS ---
Patient Summarization (C-CDA 2.1 CCD) Created on: March 03, 2024 SEHNG BAUER : 1940 Sex: Male Author Organization Sample organization Care Team Providers Care Dog Warden Name Role Phone AHMED, ZAYRA Unavailable Unavailable AHMED, ZAYRA Unavailable Unavailable LUCY DERRICK Unavailable Unavailable HAY, JAZLYN Unavailable Unavailable [place] Unavailable Unavailable UNKNOWN, PROVIDER Unavailable Unavailable Derrick [...] Unavailable HOY ., DR MEZA Admjuany Unavailable RYLIE ., HUANG Admitting Unavailable RYLIE ., HUANG Attending Unavailable HOY ., DR MEZA Primary Care Unavailable RYLIE ., HUANG Consulting Unavailable HOY ., DR MEZA Primary Care Unavailable HOY ., DR MEZA Procedure Practitioner Unavail able HOY ., DR MEZA Consulting Unavailable HOY ., DR MEZA Admjuany Unavailable HOY ., DR MEZA Attending Unavailable WEST, DR MONY Burnett Consulting Unavailable ZIEBER, DR AWAIS King Consulting Unavailable RAJESH, WILSON [...] MEZA Attending Unavailable CARA, LEATHA Attending Unavailable ALFRED, OREN Attending Unavailable ALFRED, OREN Attending Unavailable Allergies Allergy Classification Reported Allergen(s) Allergy Type Date of Onset Reaction(s) Facility (1 source) No Known Medication Allergies; 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: [No Known Medication Allergies] Propensity to adverse reactions (disorder) [facility] Repository Encounters Encounter Date Encounter Type Care Provider Facility Start: 07-14-2023 End: 07-14-2023 ambulatory OREN SIMON [facility] Start: 03-13-2023 End: 03-13-2023 ambulatory LEATHA MARROQUIN [facility] Start: 12-15-2022 End: 12-15-2022 ambulatory HUANG Lagunas Facility:[facility] Start: 11-23-2022 End: 11-24-[address] DERRICK LOPEZ . Facility:[facility] Start: 10-25-2022 End: 10-27-2022 Evaluation and management of inpatient DR DERRICK Lagunas Facility:[facility] Start: 10-22-2022 End: 10-22-2022 ambulatory LEVAR CABA . Facility:[facility] Start: 10-13-2022 End: 10-14-[address] DERRICK Lagunas Facility:[facility] Start: 09-20-2022 End: 09-21-2022 ambulatory TASHA OROZCO Facility: [facility] Start: 09-20-2022 End: 09-20-2022 Patient encounter procedure TASHA OROZCO [facility] Start: 09-19-2022 End: 09-20-[address] DERRICK LOPEZ . Facility:[facility] Start: 09-12-2022 End: 09-12-2022 ambulatory [facility] Start: 09-02-2022 End: 09-03-[address] DERRICK LOPEZ . Facility:[facility] Start: 07-20-2022 End: 07-21-[address] OREN SIMNO Facility:[facility] Start: 07-14-[address] DERRICK LOPEZ [...] Start: 02-15-2022 End: 02-16-2022 ambulatory César Gordon Facility:[facility] Start: 02-15-2022 End: 02-15-2022 Patient encounter procedure César Gordon Jr. [facility] Start: 02-09-[address] DERRICK LOPEZ [...] End: 12-23-[address] DERRICK LOPEZ . Facility:[facility] Start: 03-08-2018 End: 03-10-2018 Evaluation and management of inpatient ZAYRA RAMIREZ Facility:[facility] Immunizations Immunization Date Immunization Notes Care Provider Fa cility 06-07-2021 SARS-CoV-2 (COVID-19 ) mRNA BNT-162b2 hiram Gordon Jr. [facility] 05-13-2021 SARS-CoV-2 (COVID-19 ) mRNA BNT-162b2 semajx TASHA OROZCO [facility] 05-10-2021 influenza virus vaccine, unspecified formulation TASHA OROZCO [facility] 12-05-2020 SARS-CoV-2 (COVID-19 ) mRNA BNT-162b2 hiram Gordon Jr. [facility] 11-05-2020 SARS-CoV-2 (COVID-19 ) mRNA BNT-162b2 hiram Gordon Jr. [facility] 10-02-2020 SARS-CoV-2 (COVID-19 ) mRNA BNT-162b2 semajx TASHA OROZCO [facility] 09-04-2020 SARS-CoV-2 (COVID-19 ) mRNA BNT-162b2 semajx TASHA OROZCO [facility] 05-06-2020 influenza virus vaccine, unspecified formulation TASHA OROZCO [facility] 05-30-2017 influenza, unspecifi ed formulation TASHA OROZCO [facility] 05-30-2017 pneumococcal conjuga te vaccine, 13 valent TASHA OROZCO [facility] 05-06-2016 influenza virus vaccine, unspecified formulation TASHA OROZCO [facility] Medications Current Medications Medication Drug Class(es) Dates [...] Refills(s) 0 Start Date: 05/23/19 Status: Ordered Payers Date Payer Category Payer Private Health Insurance [id number] 1959 Self-pay 1940 Unknown [id number] 2.16.8 [id number] 1940 Unknown [id number] 2.16.8 40.1.401083.3.579.2.727 1940 Unknown [id number] 2.16.84 0.1.608896.3.579.2.593 1940 Unknown [id number] 2.16.84 0.1.948129.3.579.2.593 1940 Unknown [id number] 2.16.84 0.1.493962.3.579.2.593 1940 Unknown [id number] 2.16.84 0.1.460712.3.579.2.593 1940 Unknown [id number] 2.16.84 0.1.082925.3.579.2.593 1940 Unknown [id number] 2.16.84 0.1.062317.3.579.2.593 1940 Unknown [id number] 2.16.84 0.1.196510.3.579.2.593 1940 Unknown [id number] 2.16.84 0.1.601745.3.579.2.593 1940 Unknown [id number] 2.16.84 0.1.885508.3.579.2.593 1940 Unknown [id number] 2.16.84 0.1.816199.3.579.2.593 1940 Unknown [id number] 2.16.84 0.1.087939.3.579.2.593 1940 Unknown [id number] 2.16.84 0.1.798785.3.579.2.593 1940 Unknown [id number] 2.16.84 0.1.996429.3.579.2.593 1940 Unknown [id number] 2.16.84 0.1.599399.3.579.2.593 1940 Unknown [id number] 2.16.84 0.1.032983.3.579.2.593 1940 Unknown [id number] 2.16.84 0.1.792709.3.579.2.593 1940 Unknown [id number] 2.16.84 0.1.806536.3.579.2.593 1940 Unknown [id number] 2.16.84 0.1.826491.3.579.2.593 1940 Unknown [id number] 2.16.84 0.1.936315.3.579.2.593 1940 Unknown [id number] 2.16.84 0.1.591768.3.579.2.593 1940 Unknown [id number] 2.16.84 0.1.651955.3.579.2.593 1940 Unknown [id number] 2.16.84 0.1.729884.3.579.2.593 1940 Unknown [id number] 2.16.84 0.1.963272.3.579.2.593 1940 Unknown [id number] 2.16.84 0.1.343897.3.579.2.593 [facility] [id number] Problems Active Problems Problem Classification Problem Date [...] myocardial infarction; 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] Onset: [...] Onset: 11-30-2022 Chronic Other aftercare (2 sources) custodial (current) use of antithrombotics/antip latelets; 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: [custodial (current) use of aspirin] Onset: 03-08-2018 Episodic Other aftercare (1 source) Other chcf (current) drug therapy; 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: [OTH FISHER SCALLOP CURRENT DRUG THERAPY] Onset: 12-16-2022 Episodic Other aftercare (1 source) custodial (current) use of insulin; 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: [FDC CURRENT USE OF INSULIN] Onset: 12-16-2022 Episodic Other aftercare (1 source) 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 Comment on above: Performed By: #### V ITAD, PSASC ####[facility] [address] [place] [address]DrBebo Diaz Start: 10-25-2022 Transfusion of Nonau tologous Red Blood Cells into Peripheral Vein, Percutaneous Approach DR DERRICK LOPEZ . Start: 06-14-[address] BRIANNE LOPEZ . Comment on above: Performed By: #### P SAD ####[facility] [address] [place] [address]DrBebo Diaz Start: 03-09-2018 DILATION OF 1 COR AR T WITH DRUG-ELUT INTRA, PERC APPROACH OREN SIOMN Start: 03-09-2018 FLUOROSCOPY OF L INT MAMM GRAFT USING OTH CONTRAST OREN SIMON Start: 03-09-2018 FLUOROSCOPY OF MULT COR A GRAFT USING OTH CONTRAST OREN SIMON Start: 03-09-2018 FLUOROSCOPY OF MULTI PLE CORONARY ARTERIES USING OTH CONTRAST OREN SIMON Start: 03-30-2016 Cystourethroscopy [facility] dilation of urethral stricture César Gordon Jr. Comment on above: fulguration of the b ladder and prostate Start: 02-12-2016 Cystoscopy César paz Jr. Start: 09-08-2013 Transurethral prostatectomy César Gordon Jr. Open heart surgery César torres Jr. Placement of stent i n cardiac conduit César Gordon Jr. Results Test Name Value Interpretation Reference Range Facility Office Visiton 07-14-2023 Follow-up visit [id number] Nohelia Bauer 1940 M Date Provider Department Center 07/14/2023 ORNE PEDRO [facility] Family History Problem Relation Age of Onset Coronary artery disease Mother Family Status - Relation Status Age at Mother Level of Service:29545 [place] OFFICE/OUTPATIENT ESTABLISHED LOW MDM 20-29 MIN Normal [facility] Office Visiton 03-13-2023 Follow-up visit [id number] Nohelia Bauer 1940 M Date Provider Department Center 03/13/2023 LEATHA GONZALEZ [facility] Family History Problem Relation Age of Onset Coronary artery disease Mother Family Status - Relation Status Age at Mother Level of Service:16278 [place] OFFICE/OUTPATIENT ESTABLISHED MOD MDM 30-39 MIN Normal [facility] PSA, FREE AND TOTAL RATIOon 11-24-2022 % Free PSA 33.9 % Normal [facility] Comment on above: Result Comment: The table below lists th e probability of prostate cancer formen with non-suspicious CO results and total PSA between4 and 10 [...] of men. Performed By: #### P SAFREE ####[facility] [address] [place] [id number]. Yuki Diaz Prostate specific Ag [Mass/Vol] 6.2 ng/mL Critically high 0.0-4.0 [facility] Comment on above: Result Comment: Aye ECLIA methodology. .According to the [place] [employer], Serum PSA shoulddecrease and remain [...] malignant disease. Performed By: #### P SAFREE ####[facility] [address] [place] [address]Dr. Yuki Diaz PSA, Free 2.10 ng/mL Normal N/A [facility] Comment on above: Result Comment: Aye ECLIA methodology. Performed By: #### P SAFREE ####[facility] [address] [place] [address]Dr. Yuki Diaz CBC AUTO DIFFon 11-23-2022 BASO # 0.0 103/ul Normal 0.0-0.1 [facility] Comment on above: Performed By: #### CBC ####[facility] ital [address] [place] [id number]. Yuki Diaz Basophils/100 WBC (Bld) 0.3 % Normal 0.2-2.0 [facility] Comment on above: Performed By: #### CBC ####[facility] [address] [place] [address]Dr. Yuki Diaz EO # 0.3 103/ul Normal 0.0-0.7 [facility] Comment on above: Performed By: #### CBC ####[facility] [address] [place] [address]Dr. Yuki Diaz Eosinophils/100 WBC (Bld) 4.7 % Normal 0.9-7.0 [facility] Comment on above: Performed By: #### CBC ####[facility] [address] [place] [address]Dr. Yuki Diaz Erythrocyte distribution width (RBC) [Ratio] 15.6 % Critically high 11.0-15.0 [facility] Comment on above: Performed By: #### CBC ####[facility] [address] [place] [address]Dr. Yuki Diaz Hematocrit (Bld) [Volume fraction] 33.5 % Critically low 42.0-54.0 [facility] Comment on above: Performed By: #### CBC ####[facility] [address]ad[address] [place] [address]Dr. Yuki Diaz Hemoglobin (Bld) [Mass/Vol] 10.0 g/dL Critically low 14.0-18.0 [facility] Comment on above: Performed By: #### CBC ####[facility] [address] [place] [address]Dr. Yuki Diaz IG # 0.03 10e3/ul Normal 0.00-0.03 [facility] Comment on above: Performed By: #### CBC ####[facility] [address]ff[address]xy[address] [place] [address]Dr. Yuki Diaz IG % 0.5 % Normal 0.0-0.5 [facility] Comment on above: Performed By: #### CBC ####[facility] Z[address] [place] [address]Dr. Yuki Diaz LYMPH # 1.5 103/ul Normal 1.2-3.8 [facility] Comment on above: Performed By: #### CBC ####[facility] Xx[address] [place], [place] [address]Dr. Yuki Diaz Lymphocytes/100 WBC (Bld) 22.6 % Normal 20.5-60.0 [facility] Comment on above: Performed By: #### CBC ####[facility] [address] [place] [address]Dr. Yuki Diaz MANUAL DIFF REQ NO Normal [facility] Comment on above: Performed By: #### CBC ####[facility] [address]ev[address] [place] [address]Dr. Yuki Diaz MCH (RBC) [Entitic mass] 27.9 pg Normal 25.9-34.0 [facility] Comment on above: Performed By: #### CBC ####[facility] On[address]ifsdr[address] [place] [address]Dr. Yuki Diaz MCHC (RBC) [Mass/Vol] 29.9 g/dL Normal 29.9-35.2 [facility] Comment on above: Performed By: #### CBC ####[facility] [address] [place] [address]Dr. Yuki Diaz MCV (RBC) [Entitic vol] 93.6 fL Normal 80.0-94.0 [facility] Comment on above: Performed By: #### CBC ####[facility] [address]bd[address] [place] [address]Dr. Yuki Diaz MONO # 0.8 103/ul Normal 0.3-0.8 [facility] Comment on above: Performed By: #### CBC ####[facility] T[address]df[address] [place] [address]Dr. Yuki Diaz Monocytes/100 WBC (Bld) 12.6 % Critically high 1.7-12.0 [facility] Comment on above: Performed By: #### CBC ####[facility] [address] [place] [address]Dr. Yuki Diaz NEUT # 3.9 103/ul Normal 1.4-6.5 [facility] Comment on above: Performed By: #### CBC ####[facility] [address]wzu[address] [place] [address]Dr. Yuki Diaz Neutrophils/100 WBC (Bld) 59.3 % Normal 43.0-75.0 [facility] Comment on above: Performed By: #### CBC ####[facility] Snke[address]yma[address] [place] [address]Dr. Yuki Diaz Platelet mean volume (Bld) [Entitic vol] 10.1 fL Normal 9.5-13.5 [facility] Comment on above: Performed By: #### CBC ####[facility] [address] [place] [address]Dr. Yuki Diaz PLT 231 103/ul Normal 150-450 [facility] Comment on above: Performed By: #### CBC ####[facility] T[address]cql[address] [place] [address]Dr. Yuki Diaz RBC 3.58 106/ul Critically low 4.70-6.10 [facility] Comment on above: Performed By: #### CBC ####[facility] [address]reb[address] [place] [address]Dr. Yuki Diaz WBC 6.6 103/ul Normal 4.0-11.0 [facility] Comment on above: Performed By: #### CBC ####[facility] [address] [place] [address]Dr. Yuki Diaz FREE T3on 11-23-2022 FREE T3 2.20 pg/mlL Normal 2.18-3.98 [facility] Comment on above: Performed By: #### CMP, FT3, TSH, T4, LI PID ####[facility] [address] [place] [address]Dr. Yuki Diaz GLYCOHEMOGLOBIN A1Con 2022 ADA RECOMMENDATION SEE BELOW Normal [facility] Comment on above: Result Comment: ADA RECOMMENDED LIMIT 4. 0 - 6.0 ADA THERAPEUTIC TARGET < 7.0 ACTION SUGGESTED > 7.0 Performed By: #### A 1C ####[facility] [address]xi[address] [place], [place] [address]Dr. Yuki Diaz Glucose [Mass/Vol] 171 mg/dL Normal [facility] Comment on above: Performed By: #### A1C ####[facility] [address]wdid[address] [place] [address]Dr. Monsealyssa Diaz HbA1c (Bld) [Mass fraction] 7.6 % Critically high 4.5-6.2 [facility] Comment on above: Performed By: #### A1C ####[facility] V[address] [place], [place] [address]Dr. Yuki Diaz LIPID PROFILEon 11-23-2022 CHOL-HDL RATIO NORM SEE BELOW Normal [facility] Comment on above: Result Comment: 3.3 - 4.4 LOW RISK 4.4 - 7.1 AVERAGE RISK 7.1 - 11.0 MODERATE RISK >11.0 HIGH RISK Performed By: #### C MP, FT3, TSH, T4, LIPID ####[facility] V[address]gsweq[address] [place], [place] [address]Dr. Yuki Diaz Cholesterol [Mass/Vol] 91 mg/dL Normal <=200 [facility] Comment on above: Performed By: #### CMP, FT3, TSH, T4, LI PID ####[facility] Nhbsugukyj[address] [place], [place] [address]Dr. Yuki Diaz Cholesterol in HDL [Mass/Vol] 51 mg/dL Normal 40-60 [facility] Comment on above: Performed By: #### CMP, FT3, TSH, T4, LI PID ####[facility] Zagkz[address]ya[address] [place], [place] [address]Dr. Yuki Diaz Cholesterol in LDL [Mass/Vol] 27.2 mg/dL Normal [facility] Comment on above: Performed By: #### CMP, FT3, TSH, T4, LI PID ####[facility] Qsowwaobyu[address] [place], [place] [address]Dr. Yuki Diaz Cholesterol.tota l/Cholesterol in HDL [Mass ratio] 1.8 {ratio} Normal [facility] Comment on above: Performed By: #### CMP, FT3, TSH, T4, LI PID ####[facility] Sq[address]nt[address] [place], [place] [address]Dr. Yuki Diaz HDL NORMAL > or = 60 mg/dl - LO W CARDIOVASCULAR RISK <40 mg/dl - HIGH CARDIOVASCULAR RISK Normal [facility] Comment on above: Performed By: #### CMP, FT3, TSH, T4, LI PID ####[facility] [address] [place] [address]Dr. Yuki Diaz LDL CALC NORMAL SEE BELOW Normal [facility] Comment on above: Result Comment: <100 mg/dl OPTIMAL 100 - 129 mg/dl NEAR OR ABOVE OPTIMAL 130 - 159 mg/dl BORDERLINE HIGH 160 - 189 mg/dl HIGH >190 mg/dl VERY HIGH Performed By: #### C MP, FT3, TSH, T4, LIPID ####[facility] [address]cbu[address] [place] [address]Dr. Yuki Diaz Triglyceride [Mass/Vol] 64 mg/dL Normal <=150 [facility] Comment on above: Performed By: #### CMP, FT3, TSH, T4, LI PID ####[facility] T[address]qtozmp[address] [place] [address]Dr. Yuki Diaz VLDL CALC 12.8 mg/dL Normal [facility] Comment on above: Performed By: #### CMP, FT3, TSH, T4, LI PID ####[facility] Qru[address]jhetw[address] [place], [place] [address]Dr. Yuki Diaz PROF 14(COMP METB)on 023 Albumin [Mass/Vol] 2.9 g/dL Critically low 3.4-5.0 [facility] Comment on above: Performed By: #### CMP, FT3, TSH, T4, LI PID ####[facility] [address]ufy[address] [place] [address]Dr. Yuki Diaz Albumin/Globulin [Mass ratio] 0.7 {ratio} Normal [facility] Comment on above: Performed By: #### CMP, FT3, TSH, T4, LI PID ####[facility] [address]nsq[address] [place] [address]Dr. Yuki Diaz ALP [Catalytic activity/Vol] 95 U/L Normal 46-116 [facility] Comment on above: Performed By: #### CMP, FT3, TSH, T4, LI PID ####[facility] [address]nb[address] [place] [address]Dr. Yuki Diaz ALT [Catalytic activity/Vol] 15 U/L Critically low 16-63 [facility] Comment on above: Performed By: #### CMP, FT3, TSH, T4, LI PID ####[facility] [address]cl[address] [place] [address]Dr. Yuki Diaz Anion gap [Moles/Vol] 13.2 mmol/L Normal [facility] Comment on above: Performed By: #### CMP, FT3, TSH, T4, LI PID ####[facility] [address]qrb[address] [place], [place] [address]Dr. Yuki Diaz AST [Catalytic activity/Vol] 10 U/L Critically low 15-37 [facility] Comment on above: Performed By: #### CMP, FT3, TSH, T4, LI PID ####[facility] Obcgizmpgz[address] [place], [place] [address]Dr. Yuki Diaz Bilirubin [Mass/Vol] 0.7 mg/dL Normal 0.2-1.0 [facility] Comment on above: Performed By: #### CMP, FT3, TSH, T4, LI PID ####[facility] Eydwkpuani[address] [place], [place] [address]Dr. Yuki Diaz Calcium [Mass/Vol] 8.9 mg/dL Normal 8.5-10.1 [facility] Comment on above: Performed By: #### CMP, FT3, TSH, T4, LI PID ####[facility] [address]hep[address] [place], [place] [address]Dr. Yuki Diaz Chloride [Moles/Vol] 105 mmol/L Normal 98-107 [facility] Comment on above: Performed By: #### CMP, FT3, TSH, T4, LI PID ####[facility] Jwcbxfgkas[address] [place], [place] [address]Dr. Yuki Diaz CO2 [Moles/Vol] 30.0 mmol/L Normal 21.0-32.0 [facility] Comment on above: Performed By: #### CMP, FT3, TSH, T4, LI PID ####[facility] Zocalyev[address] [place], [place] [address]Dr. Yuki Diaz Creatinine [Mass/Vol] 2.36 mg/dL Critically high 0.70-1.30 [facility] Comment on above: Performed By: #### CMP, FT3, TSH, T4, LI PID ####[facility] [address]umsa[address] [place] [address]Dr. Monselan Diaz EGFR-AF LEBANESE 32 mL/min/1.73m2 Critically low >=60 [facility] Comment on above: Performed By: #### CMP, FT3, TSH, T4, LI PID ####[facility] Aweas[address]zdk[address] [place], [place] [address]Dr. Monselan Diaz EGFR-NON AF LEBANESE 27 mL/min/1.73m2 Critically low >=60 [facility] Comment on above: Performed By: #### CMP, FT3, TSH, T4, LI PID ####[facility] [address]qt[address]fr[address] [place], [place] [address]Dr. Yuki Diaz Globulin (S) [Mass/Vol] 4.2 g/dL Normal [facility] Comment on above: Performed By: #### CMP, FT3, TSH, T4, LI PID ####[facility] E[address]ysqflpc[address] [place], [place] [address]Dr. Yuki Diaz Glucose [Mass/Vol] 96 mg/dL Normal 74-106 [facility] Comment on above: Performed By: #### CMP, FT3, TSH, T4, LI PID ####[facility] Lqwjqogfhi[address] [place], [place] [address]Dr. Yuki Diaz Potassium [Moles/Vol] 4.2 mmol/L Normal 3.5-5.1 [facility] Comment on above: Performed By: #### CMP, FT3, TSH, T4, LI PID ####[facility] Ilbjeipnko[address] [place], [place] [address]Dr. Monselan Diaz Protein [Mass/Vol] 7.1 g/dL Normal 6.4-8.2 [facility] Comment on above: Performed By: #### CMP, FT3, TSH, T4, LI PID ####[facility] Tseaclblnp[address] [place], [place] [address]Dr. Yuki Diaz Sodium [Moles/Vol] 144 mmol/L Normal 136-145 [facility] Comment on above: Performed By: #### CMP, FT3, TSH, T4, LI PID ####[facility] [address]xsw[address]tivd[address] [place] [address]Dr. Yuki Diaz Urea nitrogen [Mass/Vol] 28.0 mg/dL Critically high 7.0-18.0 [facility] Comment on above: Performed By: #### CMP, FT3, TSH, T4, LI PID ####[facility] H[address]udctm[address] [place], [place] [address]Dr. Yuki Diaz Urea nitrogen/Creatin ine [Mass ratio] 11.9 mg/mg Normal [facility] Comment on above: Performed By: #### CMP, FT3, TSH, T4, LI PID ####[facility] V[address]tw[address] [place], [place] [address]Dr. Yuki Diaz T4on 11-23-2022 T4 [Mass/Vol] 7.70 ug/dL Normal 4.50-12.10 [facility] Comment on above: Performed By: #### CMP, FT3, TSH, T4, LI PID ####[facility] Behuwcaxis[address] [place], [place] [address]Dr. Yuki Diaz TSHon 11-23-2022 TSH 2.577 uIU/mL Normal 0.358-3.74 0 [facility] Comment on above: Performed By: #### CMP, FT3, TSH, T4, LI PID ####[facility] Mulwhdmure[address] [place], [place] [address]Dr. Yuki Diaz VITAMIN D 25 OHon 11-23-2022 VIT D 25-OH 35.8 ng/mL Normal [facility] Comment on above: Performed By: #### VITAD, PSASC ####[facility] [address]fl[address] [place], [place] [address]Dr. Yuki Diaz VIT D RANGES SEE BELOW Normal [facility] Comment on above: Result Comment: <20 ng/mL Vit D deficien t 20 - <30 ng/mL Vit D insufficient 30 - 100 ng/mL Vit D sufficient >100 ng/mL Potential Toxicity Performed By: #### V ITAD, PSASC ####[facility] Uzekgilsaw[address] [place], [place] [address]Dr. Yuki Diaz BNPon 10-27-2022 Natriuretic peptide B (Bld) [Mass/Vol] 6821.0 pg/mL Critically high <=1,800.0 [facility] Comment on above: Performed By: #### CMP, BNP ####[facility] Dvseazbxtd[address] [place] [address]Dr. Yuki Diaz CBC W MANUAL DIFFon 10-28-19 23 ACANTHOCYTES 1+ Normal [facility] Comment on above: Performed By: #### CBCMAN ####[facility] Rdzygjliad[address] [place] [address]Dr. Yuki Diaz ATYPICAL LYMPH # Normal [facility] Comment on above: Performed By: #### CBCMAN ####[facility] Gossbgrrgv[address] [place] [address]Dr. Yuki Joe ATYPICAL LYMPH % Normal [facility] Comment on above: Performed By: #### CBCMAN ####[facility] Iuwobeimut[address] [place] [address]Dr. Yuki Joe BAND # 0.0 103/ul Normal 0.0-0.3 [facility] Comment on above: Performed By: #### CBCMAN ####[facility] Vuhrzvrtxy01[address] [place] [address]Dr. Monsealyssa Joe BAND % 0 % Normal 0-5 [facility] Comment on above: Performed By: #### CBCMAN ####[facility] Ycjhjuikgj9584 [place] [address]Dr. Yuki Joe BASOM # 0.00 103/ul Normal 0.00-0.10 [facility] Comment on above: Performed By: #### CBCMAN ####[facility] Invcqeqbyo2886 [place] [address]Dr. Yuki Diaz BASOM % 0.0 % Critically low 0.2-2.0 [facility] Comment on above: Performed By: #### CBCMAN ####[facility] Lnfegagoam5[address] [place] [address]Dr. Monsealyssa Diaz BLAST # Normal [facility] Comment on above: Performed By: #### CBCCHANTE ####[facility] Dawxrktisa8430 [place], [place] [address]My. Yuki Diaz BLAST % Normal [facility] Comment on above: Performed By: #### CBCCHANTE ####[facility] Qmgdriwfuf5591 [place], [place] [address]Eh. Yuki Diaz CORRECTED WBC Normal 4.0-11.0 [facility] Comment on above: Performed By: #### CBCCHANTE ####[facility] Rsjuxunrux4807 [place], [place] [address]Sw. Yuki Diaz EOS # 0.00 103/ul Normal 0.00-0.70 [facility] Comment on above: Performed By: #### CBCCHANTE ####[facility] Bptoordaiy6143 [place] [id number]. Yuki Diaz EOS% 0.0 % Critically low 0.9-7.0 [facility] Comment on above: Performed By: #### GILL ####[facility] Ctnytpbgjg0348 [place] [id number]. Yuki Diaz HCT 27.5 % Critically low 42.0-54.0 [facility] Comment on above: Performed By: #### GILL ####[facility] Cctpncftsm7617 [place] [id number]. Yuki Diaz HGB 8.7 g/dl Critically low 14.0-18.0 [facility] Comment on above: Performed By: #### GILL ####[facility] Jtmzoishks5187 [place] [id number]. Yuki Diaz LYMPHM # 0.81 103/ul Critically low 1.20-3.80 [facility] Comment on above: Performed By: #### GILL ####[facility] Lwdgdalilh2693 [place] [phone]. Yuki Diaz LYMPHM% 8.0 % Critically low 20.5-60.0 [facility] Comment on above: Performed By: #### CBCCHANTE ####[facility] Omekhlbcuj9695 [place] [phone]. Yuki Diaz MCH 28.2 pg Normal 25.9-34.0 [facility] Comment on above: Performed By: #### CBCMAN ####[facility] Fdvwhkvgwv2913 [place] [phone]. Yuki Diaz MCHC 31.6 g/dl Normal 29.9-35.2 [facility] Comment on above: Performed By: #### CBCCHANTE ####[facility] Nlifrrbmkc4291 [place] [phone]. Yuki Diaz MCV 89.0 fL Normal 80.0-94.0 [facility] Comment on above: Performed By: #### CBCCHANTE ####[facility] Kvjtcksrcu6331 [place] [phone]. Yuki Diaz METAMYELOCYTE # Normal [facility] Comment on above: Performed By: #### CBCCHANTE ####[facility] Okgpybcjch9085 [place] [phone]. Yuki Diaz METAMYELOCYTE % Normal [facility] Comment on above: Performed By: #### CBCCHANTE ####[facility] Qoifjyukih0002 [place] [address]Dr. Yuki Diaz MONOM# 0.40 103/ul Normal 0.30-0.80 [facility] Comment on above: Performed By: #### CBCMAN ####[facility] Vrvzotipiv4129 [place] [phone]. Yuki Diaz MONOM% 4.0 % Normal 1.7-12.0 [facility] Comment on above: Performed By: #### CBCMAN ####[facility] Turxotvtok5557 [place] [phone]. Yuki Diaz MPV 10.4 fL Normal 9.5-13.5 [facility] Comment on above: Performed By: #### CBCMAN ####[facility] Gzzruxhxhi5625 [place] [address]Dr. Yuki Diaz MYELOCYTE # Normal [facility] Comment on above: Performed By: #### CBCCHANTE ####[facility] Ykuoukgptz8951 [place], [place] [address]Sb. Yuki Diaz MYELOCYTE % Normal [facility] Comment on above: Performed By: #### CBCCHANTE ####[facility] Palwpgezqp3614 [place], [place] [address]Vk. Yuki Diaz NRBC Normal [facility] Comment on above: Performed By: #### CBCCHANTE ####[facility] Iixpcstbdo0910 [place], [place] [address]Wm. Yuki Diaz PLT 237 103/ul Normal 150-450 [facility] Comment on above: Performed By: #### CBCCHANTE ####[facility] Yftojslqlh2602 [place], [place] [address]Do. Yuki Diaz RBC 3.09 106/ul Critically low 4.70-6.10 [facility] Comment on above: Performed By: #### GILL ####[facility] Eybgnotucc5195 [place] [phone]. Yuki Diaz RDW 14.7 % Normal 11.0-15.0 [facility] Comment on above: Performed By: #### GILL ####[facility] Uulvpfsycv4471 [place] [phone]. Yuki Diaz SEG # 8.89 103/ul Critically high 1.40-6.50 [facility] Comment on above: Performed By: #### CBCCHANTE ####[facility] Vkaljohofk8726 [place] [phone]. Yuki Diaz SEG % 88.0 % Critically high 43.0-75.0 [facility] Comment on above: Performed By: #### CBCCHANTE ####[facility] Znprmesatf7427 [place] [phone]. Yuki Diaz WBC 10.1 103/ul Normal 4.0-11.0 [facility] Comment on above: Performed By: #### CBCCHANTE ####[facility] Miubnbeejo3907 [place] [address]Dr. Yuki Diaz POINT OF CARE GLUCOSEon 10-06 Glucose [Mass/Vol] 214 mg/dL Critically high 74-106 [facility] Comment on above: Performed By: #### POCGLUC ####[facility] Lcyluqazwb[address] [place], [place] [address]Dr. Yuki Diaz Glucose [Mass/Vol] 225 mg/dL Critically high 74-106 [facility] Comment on above: Performed By: #### POCGLUC ####[facility] Zirnyskugd[address] [place], [place] [address]Dr. Yuki Diaz PRBC LEUKOREDUCEDon 10-28-19 23 PRBC LEUKOREDUCED Normal [facility] Comment on above: Performed By: #### PRBC ####[facility] pital Hirmglcsgb[address] [place], [place] [address]Dr. Yuki Diaz PROF 14(COMP METB)on 023 Albumin [Mass/Vol] 1.8 g/dL Critically low 3.4-5.0 [facility] Comment on above: Performed By: #### CMP, BNP ####[facility] Umjigfznwo[address] [place], [place] [address]Dr. Yuki Diaz Albumin/Globulin [Mass ratio] 0.5 {ratio} Normal [facility] Comment on above: Performed By: #### CMP, BNP ####[facility] Fawbwmdqwu[address] [place], [place] [address]Dr. Yuki Diaz ALP [Catalytic activity/Vol] 66 U/L Normal 46-116 [facility] Comment on above: Performed By: #### CMP, BNP ####[facility] Odooymozsg[address] [place], [place] [address]Dr. Yuki Diaz ALT [Catalytic activity/Vol] 13 U/L Critically low 16-63 [facility] Comment on above: Performed By: #### CMP, BNP ####[facility] Npvhelwjlw[address] [place], [place] [address]Dr. Yuki Diaz Anion gap [Moles/Vol] 11.8 mmol/L Normal [facility] Comment on above: Performed By: #### CMP, BNP ####[facility] Dbsxdxcshz2514 [place] [address]Dr. Yuki Diaz AST [Catalytic activity/Vol] 14 U/L Critically low 15-37 [facility] Comment on above: Performed By: #### CMP, BNP ####[facility] Ybhhjzrbyk8374 [place] [address]Dr. Yuki Diaz Bilirubin [Mass/Vol] 0.4 mg/dL Normal 0.2-1.0 [facility] Comment on above: Performed By: #### CMP, BNP ####[facility] Uzonjproij[address] [place], [place] [address]Dr. Yuki Diaz Calcium [Mass/Vol] 8.2 mg/dL Critically low 8.5-10.1 [facility] Comment on above: Performed By: #### CMP, BNP ####[facility] Aexyuiahjq[address] [place], [place] [address]Dr. Yuki Diaz Chloride [Moles/Vol] 103 mmol/L Normal 98-107 [facility] Comment on above: Performed By: #### CMP, BNP ####[facility] Hofzclveeh[address] [place], [place] [address]Dr. Yuki Diaz CO2 [Moles/Vol] 26.7 mmol/L Normal 21.0-32.0 [facility] Comment on above: Performed By: #### CMP, BNP ####[facility] Ljdcnhficn[address] [place], [place] [address]Dr. Yuki Diaz Creatinine [Mass/Vol] 2.62 mg/dL Critically high 0.70-1.30 [facility] Comment on above: Performed By: #### CMP, BNP ####[facility] Ellnvyxzqj356[address] [place], [place] [address]Dr. Yuki Diaz EGFR-AF LEBANESE 29 mL/min/1.73m2 Critically low >=60 [facility] Comment on above: Performed By: #### CMP, BNP ####[facility] Qjrtocnvmg187[address] [place], [place] [address]Dr. Yuki Joe EGFR-NON AF LEBANESE 24 mL/min/1.73m2 Critically low >=60 [facility] Comment on above: Performed By: #### CMP, BNP ####[facility] Xzouhlxogw2916 [place] [address]Dr. Yuki Diaz Globulin (S) [Mass/Vol] 3.9 g/dL Normal [facility] Comment on above: Performed By: #### CMP, BNP ####[facility] Wngykftqvz4266 [place] [address]Dr. Yuki Diaz Glucose [Mass/Vol] 209 mg/dL Critically high 74-106 [facility] Comment on above: Performed By: #### CMP, BNP ####[facility] Irzgfwjsmj[address] [place], [place] [address]Dr. Yuki Diaz Potassium [Moles/Vol] 4.5 mmol/L Normal 3.5-5.1 [facility] Comment on above: Performed By: #### CMP, BNP ####[facility] Dacjsqpiwa[address] [place], [place] [address]Dr. Yuki Diaz Protein [Mass/Vol] 5.7 g/dL Critically low 6.4-8.2 [facility] Comment on above: Performed By: #### CMP, BNP ####[facility] Mrtfvtnokk[address] [place], [place] [address]Dr. Yuki Diaz Sodium [Moles/Vol] 137 mmol/L Normal 136-145 [facility] Comment on above: Performed By: #### CMP, BNP ####[facility] Hztotrktvt324[address] [place], [place] [address]Dr. Yuki Diaz Urea nitrogen [Mass/Vol] 67.0 mg/dL Critically high 7.0-18.0 [facility] Comment on above: Performed By: #### CMP, BNP ####[facility] Tdetgsjxff[address] [place], [place] [address]Dr. Yuki Diaz Urea nitrogen/Creatin ine [Mass ratio] 25.6 mg/mg Normal [facility] Comment on above: Performed By: #### CMP, BNP ####[facility] Btidzytcbw[address] [place], [place] [address]Dr. Yuki Diaz BNPon 10-26-2022 Natriuretic peptide B (Bld) [Mass/Vol] 3539.0 pg/mL Critically high <=1,800.0 [facility] Comment on above: Performed By: #### CMP, BNP ####[facility] Ayyrxaabyg[address] [place] [address]Dr. Yuki Diaz CBC W MANUAL DIFFon 10-27-19 23 ATYPICAL LYMPH # Normal [facility] Comment on above: Performed By: #### CBCMAN ####[facility] Rjedaeeqjd6513 [place] [address]Dr. Yuki Diaz ATYPICAL LYMPH % Normal [facility] Comment on above: Performed By: #### CBCMAN ####[facility] Phhbfrcnne6198 [place] [address]Dr. Yuki Diaz BAND # 0.0 103/ul Normal 0.0-0.3 [facility] Comment on above: Performed By: #### CBCMAN ####[facility] Crmkyhlnjd8147 [place] [address]Dr. Yuki Diaz BAND % 0 % Normal 0-5 [facility] Comment on above: Performed By: #### CBCMAN ####[facility] Ipckdkzfnv0155 [place] [address]Dr. Yuki Diaz BASOM # 0.00 103/ul Normal 0.00-0.10 [facility] Comment on above: Performed By: #### CBCMAN ####[facility] Hdjcksqhok2638 [place] [address]Dr. Yuki Diaz BASOM % 0.0 % Critically low 0.2-2.0 [facility] Comment on above: Performed By: #### CBCMAN ####[facility] Utnymhgwvg8474 [place] [address]Dr. Yuki Diaz BLAST # Normal [facility] Comment on above: Performed By: #### CBCMAN ####[facility] Hlaahxpvoj3471 [place] [address]Dr. Yuki Diaz BLAST % Normal [facility] Comment on above: Performed By: #### CBCMAN ####[facility] Dauyquwlml1405 [place] [id number]. Yuki Diaz CORRECTED WBC Normal 4.0-11.0 [facility] Comment on above: Performed By: #### CBCCHANTE ####[facility] Pbydwgfqxw2433 [place], [place] [address]Ct. Yuki Diaz EOS # 0.00 103/ul Normal 0.00-0.70 [facility] Comment on above: Performed By: #### CBCCHANTE ####[facility] Dgfclhnulg3415 [place] [phone]. Yuki Diaz EOS% 0.0 % Critically low 0.9-7.0 [facility] Comment on above: Performed By: #### CBCCHANTE ####[facility] Figctrucyi3976 [place] [phone]. Yuki Diaz HCT 28.9 % Critically low 42.0-54.0 [facility] Comment on above: Performed By: #### CBCCHANTE ####[facility] Fbntkabtzk3976 [place] [phone]. Yuki Diaz HGB 9.1 g/dl Critically low 14.0-18.0 [facility] Comment on above: Performed By: #### CBCCHANTE ####[facility] Cadrbnesyy3914 [place] [phone]. Yuki Diaz LYMPHM # 0.37 103/ul Critically low 1.20-3.80 [facility] Comment on above: Performed By: #### CBCCHANTE ####[facility] Mxotsehjkb0866 [place] [phone]. Yuki Diaz LYMPHM% 3.0 % Critically low 20.5-60.0 [facility] Comment on above: Performed By: #### CBCCHANTE ####[facility] Wbktyunior8374 [place] [phone]. Yuki Diaz MCH 28.4 pg Normal 25.9-34.0 [facility] Comment on above: Performed By: #### CBCCHANET ####[facility] Gnsjupnyjz3643 [place] [phone]. Yuki Diaz MCHC 31.5 g/dl Normal 29.9-35.2 [facility] Comment on above: Performed By: #### CBCMAN ####[facility] Phzfwdytrv8498 [place] [address]Dr. Yuki Diaz MCV 90.3 fL Normal 80.0-94.0 [facility] Comment on above: Performed By: #### CBCMAN ####[facility] Pejipatsch9990 [place] [address]Dr. Yuki Diaz METAMYELOCYTE # Normal [facility] Comment on above: Performed By: #### CBCCHANTE ####[facility] Kxrfrogvxv5059 [place] [address]Dr. Yuki Diaz METAMYELOCYTE % Normal [facility] Comment on above: Performed By: #### CBCCHANTE ####[facility] Vnehmwdlip4914 [place] [address]Dr. Yuki Diaz MONOM# 0.24 103/ul Critically low 0.30-0.80 [facility] Comment on above: Performed By: #### CBCCHANTE ####[facility] Fhisqcrlmc2996 [place] [address]Dr. Yuki Diaz MONOM% 2.0 % Normal 1.7-12.0 [facility] Comment on above: Performed By: #### CBCCHANTE ####[facility] Eytctwudly3661 [place] [address]Dr. Yuki Diaz MPV 10.3 fL Normal 9.5-13.5 [facility] Comment on above: Performed By: #### CBCCHANTE ####[facility] Wbwyvtmaco0850 [place] [address]Dr. Yuki Diaz MYELOCYTE # Normal [facility] Comment on above: Performed By: #### CBCCHANTE ####[facility] Azrxqrqwhs4756 [place] [address]Dr. Yuki Diaz MYELOCYTE % Normal [facility] Comment on above: Performed By: #### CBCMAN ####[facility] Zvehqyfbyb8106 [place], [place] [address]Fl. Yuki Diaz NRBC Normal [facility] Comment on above: Performed By: #### GILL ####[facility] Btyfaqorwt4551 [place] [phone]. Yuki Diaz PLT 215 103/ul Normal 150-450 [facility] Comment on above: Performed By: #### GILL ####[facility] Djmojhdwij9336 [place] [phone]. Yuki Diaz RBC 3.20 106/ul Critically low 4.70-6.10 [facility] Comment on above: Performed By: #### GILL ####[facility] Ljayeqegmf1127 [place] [phone]. Yuki Diaz RDW 14.7 % Normal 11.0-15.0 [facility] Comment on above: Performed By: #### GILL ####[facility] Bisukpgqji7261 [place] [phone]. Yuki Diaz SEG # 11.59 103/ul Critically high 1.40-6.50 [facility] Comment on above: Performed By: #### GILL ####[facility] Bcpbdszmpr6560 [place] [phone]. Yuki Diaz SEG % 95.0 % Critically high 43.0-75.0 [facility] Comment on above: Performed By: #### GILL ####[facility] Lsvtnycwgu5147 [place] [phone]. Yuki Diaz WBC 12.2 103/ul Critically high 4.0-11.0 [facility] Comment on above: Performed By: #### GILL ####[facility] Fkhjjiqydf8317 [place] [phone]. Yuki Diaz POINT OF CARE GLUCOSEon 03-2 Glucose [Mass/Vol] 148 mg/dL Critically high 74-106 [facility] Comment on above: Performed By: #### POCGLUC ####[facility] Kyoiqwgtxw9485 [place] [phone]. Yuki Diaz Glucose [Mass/Vol] 212 mg/dL Critically high 74-106 [facility] Comment on above: Performed By: #### POCGLUC ####[facility] Oyaoxfyyvw7570 [place] [address]Dr. Yuki Diaz Glucose [Mass/Vol] 280 mg/dL Critically high 74-106 [facility] Comment on above: Performed By: #### POCGLUC ####[facility] Ebmaprtauo3568 [place] [address]Dr. Yuki Diaz Glucose [Mass/Vol] 194 mg/dL Critically high 74-106 [facility] Comment on above: Performed By: #### POCGLUC ####[facility] Zugmuvhwmx[address] [place], [place] [address]Dr. Yuki Diaz Glucose [Mass/Vol] 292 mg/dL Critically high 74-106 [facility] Comment on above: Performed By: #### POCGLUC ####[facility] Qsocvebcca02[address] [place], [place] [address]Dr. Yuki Diaz PRBC LEUKOREDUCEDon 10-27-19 23 PRBC LEUKOREDUCED Normal [facility] Comment on above: Performed By: #### PRBC ####[facility] Yxxjjbfrso[address] [place], [place] [address]Dr. Yuki Diaz PROF 14(COMP METB)on 023 Albumin [Mass/Vol] 2.0 g/dL Critically low 3.4-5.0 [facility] Comment on above: Performed By: #### CMP, BNP ####[facility] Ydofijvwti1128 [place] [address]Dr. Yuki Diaz Albumin/Globulin [Mass ratio] 0.5 {ratio} Normal [facility] Comment on above: Performed By: #### CMP, BNP ####[facility] Vpbgoxltla[address] [place], [place] [address]Dr. Monsealyssa Joe ALP [Catalytic activity/Vol] 75 U/L Normal 46-116 [facility] Comment on above: Performed By: #### CMP, BNP ####[facility] Ekojkwpsbl6399 [place] [phone]. Yuki Diaz ALT [Catalytic activity/Vol] 10 U/L Critically low 16-63 [facility] Comment on above: Performed By: #### CMP, BNP ####[facility] Hgqbgwcrzh9336 [place] [address]Dr. Yuki Diaz Anion gap [Moles/Vol] 13.9 mmol/L Normal [facility] Comment on above: Performed By: #### CMP, BNP ####[facility] Mtrekobcyo2735 [place] [address]Dr. Yuki Diaz AST [Catalytic activity/Vol] 13 U/L Critically low 15-37 [facility] Comment on above: Performed By: #### CMP, BNP ####[facility] Oqsftldhft[address] [place], [place] [address]Dr. Yuki Diaz Bilirubin [Mass/Vol] 0.7 mg/dL Normal 0.2-1.0 [facility] Comment on above: Performed By: #### CMP, BNP ####[facility] Zppovbdndc[address] [place], [place] [address]Dr. Yuki Diaz Calcium [Mass/Vol] 8.5 mg/dL Normal 8.5-10.1 [facility] Comment on above: Performed By: #### CMP, BNP ####[facility] Qlijqoyrqi[address] [place], [place] [address]Dr. Yuki Diaz Chloride [Moles/Vol] 103 mmol/L Normal 98-107 [facility] Comment on above: Performed By: #### CMP, BNP ####[facility] Ibugokwfmm5491 [place] [address]Dr. Yuki Diaz CO2 [Moles/Vol] 25.8 mmol/L Normal 21.0-32.0 [facility] Comment on above: Performed By: #### CMP, BNP ####[facility] Bkikywsnye[address] [place], [place] [address]Dr. Yuki Diaz Creatinine [Mass/Vol] 2.87 mg/dL Critically high 0.70-1.30 [facility] Comment on above: Performed By: #### CMP, BNP ####[facility] Qrrtzmxotd4450 [place] [phone]. Yuki Diaz EGFR-AF LEBANESE 26 mL/min/1.73m2 Critically low >=60 [facility] Comment on above: Performed By: #### CMP, BNP ####[facility] Oytqupluzu8985 [place] [phone]. Yuki Diaz EGFR-NON AF LEBANESE 21 mL/min/1.73m2 Critically low >=60 [facility] Comment on above: Performed By: #### CMP, BNP ####[facility] Nutfpbzngy4137 [place] [phone]. Yuki Diaz Globulin (S) [Mass/Vol] 4.0 g/dL Normal [facility] Comment on above: Performed By: #### CMP, BNP ####[facility] Hewlwxbmta1769 [place] [address]Dr. Yuki Diaz Glucose [Mass/Vol] 209 mg/dL Critically high 74-106 [facility] Comment on above: Performed By: #### CMP, BNP ####[facility] Oilidkjdux4540 [place] [phone]. Yuki Diaz Potassium [Moles/Vol] 4.7 mmol/L Normal 3.5-5.1 [facility] Comment on above: Performed By: #### CMP, BNP ####[facility] Ogugihjxma4338 [place] [phone]. Yuki Diaz Protein [Mass/Vol] 6.0 g/dL Critically low 6.4-8.2 [facility] Comment on above: Performed By: #### CMP, BNP ####[facility] Mdfvripdgn5294 [place] [phone]. Yuki Diaz Sodium [Moles/Vol] 138 mmol/L Normal 136-145 [facility] [facility] Comment on above: Performed By: #### CMP, BNP ####[facility] Dscesrgfhm[address] [place], [place] [address]Dr. Yuki Diaz Urea nitrogen [Mass/Vol] 58.0 mg/dL Critically high 7.0-18.0 [facility] Comment on above: Performed By: #### CMP, BNP ####[facility] Hfeasntpvt[address] [place] [address]Dr. Yuki Diaz Urea nitrogen/Creatin ine [Mass ratio] 20.2 mg/mg Normal [facility] Comment on above: Performed By: #### CMP, BNP ####[facility] Stipuebgyz[address] [place], [place] [address]Dr. Yuki Diaz XR KNEE LT 4V or >on 023 XR KNEE LT 4V or > Normal [facility] CBC AUTO DIFFon 10-25-2022 BASO # 0.0 103/ul Normal 0.0-0.1 [facility] Comment on above: Performed By: #### CBC ####[facility] ital Vxoehmdqug[address] [place], [place] [address]Dr. Yuki Diaz BASO # 0.0 103/ul Normal 0.0-0.1 [facility] Comment on above: Performed By: #### CBC ####[facility] ital Rskrmmqwyw[address] [place], [place] [address]Dr. Yuki Diaz Basophils/100 WBC (Bld) 0.1 % Critically low 0.2-2.0 [facility] Comment on above: Performed By: #### CBC ####[facility] ital Wxgzaxelji236[address] [place], [place] [address]Dr. Yuki Diaz Basophils/100 WBC (Bld) 0.0 % Critically low 0.2-2.0 [facility] Comment on above: Performed By: #### CBC ####[facility] ital Lxlyqbfbqn[address] [place], [place] [address]Dr. Yuki Diaz EO # 0.0 103/ul Normal 0.0-0.7 [facility] Comment on above: Performed By: #### CBC ####[facility] ital Pajsmxlthf[address] [place], [place] [address]Dr. Monselan Diaz EO # 0.0 103/ul Normal 0.0-0.7 [facility] Comment on above: Performed By: #### CBC ####[facility] ital Wpqtgvbgzg8[address] [place], [place] [address]Dr. Yilan Diaz Eosinophils/100 WBC (Bld) 0.2 % Critically low 0.9-7.0 [facility] Comment on above: Performed By: #### CBC ####[facility] Sltjhmjbzb27[address] [place] [id number]. Yuki Diaz Eosinophils/100 WBC (Bld) 0.0 % Critically low 0.9-7.0 [facility] Comment on above: Performed By: #### CBC ####[facility] Imlxcklbrj7680 [place] [address]Dr. Yuki Diaz Erythrocyte distribution width (RBC) [Ratio] 15.1 % Critically high 11.0-15.0 [facility] Comment on above: Performed By: #### CBC ####[facility] Rvibqdspvz[address] [place], [place] [address]Dr. Yuki Diaz Erythrocyte distribution width (RBC) [Ratio] 14.7 % Normal 11.0-15.0 [facility] Comment on above: Performed By: #### CBC ####[facility] Fixrrkhvts3023 [place] [address]Dr. Yuki Diaz Hematocrit (Bld) [Volume fraction] 23.7 % Critically low 42.0-54.0 [facility] Comment on above: Performed By: #### CBC ####[facility] Idmojykxwu4162 [place] [address]Dr. Yuki Diaz Hematocrit (Bld) [Volume fraction] 30.9 % Critically low 42.0-54.0 [facility] Comment on above: Performed By: #### CBC ####[facility] Lucvdbrzhh17[address] [place], [place] [address]Dr. Yuki Diaz Hemoglobin (Bld) [Mass/Vol] 7.4 g/dL Critically low 14.0-18.0 [facility] Comment on above: Performed By: #### CBC ####[facility] Evsndavoks[address] [place], [place] [address]Dr. Yuki Diaz Hemoglobin (Bld) [Mass/Vol] 9.6 g/dL Critically low 14.0-18.0 [facility] Comment on above: Result Comment: pt. rcvd. blood Performed By: #### C BC ####[facility] Lqrmtltznj9[address] [place] [address]Dr. uYki Diaz IG # 0.07 10e3/ul Critically high 0.00-0.03 [facility] Comment on above: Performed By: #### CBC ####[facility] ital Emmuauuspa3663 [place] [address]Dr. Yuki Diaz IG # 0.06 10e3/ul Critically high 0.00-0.03 [facility] Comment on above: Performed By: #### CBC ####[facility] ital Lfohstakgg6711 [place] [address]Dr. Yuki Diaz IG % 0.6 % Critically high 0.0-0.5 [facility] Comment on above: Performed By: #### CBC ####[facility] ital Aelmeqkmqo5766 [place] [address]Dr. Yuki Diaz IG % 0.5 % Normal 0.0-0.5 [facility] Comment on above: Performed By: #### CBC ####[facility] ital Uncgrdroyu4232 [place] [address]Dr. Yuki Diaz LYMPH # 0.8 103/ul Critically low 1.2-3.8 [facility] Comment on above: Performed By: #### CBC ####[facility] ital Yhsplxhiml0824 [place] [address]Dr. Yuki Diaz LYMPH # 0.4 103/ul Critically low 1.2-3.8 [facility] Comment on above: Performed By: #### CBC ####[facility] ital Fboqktfnep1043 [place] [address]Dr. Yuki Diaz Lymphocytes/100 WBC (Bld) 6.6 % Critically low 20.5-60.0 [facility] Comment on above: Performed By: #### CBC ####[facility] ital Jcvytmpdlu6797 [place] [address]Dr. Yuki Diaz Lymphocytes/100 WBC (Bld) 3.5 % Critically low 20.5-60.0 [facility] Comment on above: Performed By: #### CBC ####[facility] ital Vzjodwlvjq4439 [place] [address]Dr. Yuki Diaz MANUAL DIFF REQ NO Normal [facility] Comment on above: Performed By: #### CBC ####[facility] ital Gfkuphzjsk2735 [place] [address]Dr. Yuki Diaz MANUAL DIFF REQ NO Normal [facility] Comment on above: Performed By: #### CBC ####[facility] ital Ydplobqaqu3172 [place] [address]Dr. Yuki Diaz MCH (RBC) [Entitic mass] 28.1 pg Normal 25.9-34.0 [facility] Comment on above: Performed By: #### CBC ####[facility] Cbahnnjccw3578 [place] [address]Dr. Yuki Diaz MCH (RBC) [Entitic mass] 28.3 pg Normal 25.9-34.0 [facility] Comment on above: Performed By: #### CBC ####[facility] Rljcvdadzw2415 [place] [address]Dr. Yuki Diaz MCHC (RBC) [Mass/Vol] 31.2 g/dL Normal 29.9-35.2 [facility] Comment on above: Performed By: #### CBC ####[facility] Veuphvmeyx5101 [place] [address]Dr. Yuki Diaz MCHC (RBC) [Mass/Vol] 31.1 g/dL Normal 29.9-35.2 [facility] Comment on above: Performed By: #### CBC ####[facility] Hvbciqpugf6292 [place] [address]Dr. Yuki Diaz MCV (RBC) [Entitic vol] 90.1 fL Normal 80.0-94.0 [facility] Comment on above: Performed By: #### CBC ####[facility] ital Rmqocmtekh1680 [place] [address]Dr. Yuki Diaz MCV (RBC) [Entitic vol] 91.2 fL Normal 80.0-94.0 [facility] Comment on above: Performed By: #### CBC ####[facility] ital Jfplrglwaz3719 [place] [id number]. Yuki Diaz MONO # 1.5 103/ul Critically high 0.3-0.8 [facility] Comment on above: Performed By: #### CBC ####[facility] ital Gxkrwawphy2488 [place] [id number]. Monselan Diaz MONO # 0.5 103/ul Normal 0.3-0.8 [facility] Comment on above: Performed By: #### CBC ####[facility] ital Isnraarpfl3647 [place] [id number]. Yuki Diaz Monocytes/100 WBC (Bld) 11.5 % Normal 1.7-12.0 [facility] Comment on above: Performed By: #### CBC ####[facility] Qkkxszuuja1465 [place] [address]Dr. Monselan Diaz Monocytes/100 WBC (Bld) 4.4 % Normal 1.7-12.0 [facility] Comment on above: Performed By: #### CBC ####[facility] ital Lrgalnebxd6888 [place] [phone]. Yuki Diaz NEUT # 10.2 103/ul Critically high 1.4-6.5 [facility] Comment on above: Performed By: #### CBC ####[facility] ital Dgnbldhcum6728 [place] [phone]. Monselan Diaz NEUT # 10.8 103/ul Critically high 1.4-6.5 [facility] Comment on above: Performed By: #### CBC ####[facility] Syhrugrlls5135 [place] [phone]. Monselan Diaz Neutrophils/100 WBC (Bld) 81.0 % Critically high 43.0-75.0 [facility] Comment on above: Performed By: #### CBC ####[facility] Qqlgnmpwrc9424 [place] [id number]. Monselan Diaz Neutrophils/100 WBC (Bld) 91.6 % Critically high 43.0-75.0 [facility] Comment on above: Performed By: #### CBC ####[facility] Sczhjkqrku0386 [place] [address]Dr. Yuki Diaz Platelet mean volume (Bld) [Entitic vol] 10.7 fL Normal 9.5-13.5 [facility] Comment on above: Performed By: #### CBC ####[facility] Ymwlemxysb0785 [place] [address]Dr. Yuki Diaz Platelet mean volume (Bld) [Entitic vol] 10.1 fL Normal 9.5-13.5 [facility] Comment on above: Performed By: #### CBC ####[facility] ital Fekvfyvkvc5358 [place] [address]Dr. Yuki Diaz PLT 204 103/ul Normal 150-450 [facility] Comment on above: Performed By: #### CBC ####[facility] ital Oqjxggjswa2891 [place] [address]Dr. Yuki Diaz PLT 223 103/ul Normal 150-450 [facility] Comment on above: Performed By: #### CBC ####[facility] Xffzycryid4275 [place] [address]Dr. Yuki Diaz RBC 2.63 106/ul Critically low 4.70-6.10 [facility] Comment on above: Performed By: #### CBC ####[facility] Xtmoousdue8485 [place] [address]Dr. Yuki Diaz RBC 3.39 106/ul Critically low 4.70-6.10 [facility] Comment on above: Performed By: #### CBC ####[facility] ital Ijkataaezg5441 [place] [address]Dr. Yuki Diaz WBC 12.6 103/ul Critically high 4.0-11.0 [facility] Comment on above: Performed By: #### CBC ####[facility] ital Ffnkyzemmd[address] [place], [place] [address]Dr. Yuki Diaz WBC 11.8 103/ul Critically high 4.0-11.0 [facility] Comment on above: Performed By: #### CBC ####[facility] ital Numnpkqfpo6022 [place] [address]Dr. Y[address] Diaz CT ABD/PELVIS WO CONon 10-25 CT ABD/PELVIS WO CON Normal [facility] CT PELVIS WO CONon CT PELVIS WO CON Normal [facility] POINT OF CARE GLUCOSEon - Glucose [Mass/Vol] 118 mg/dL Critically high 74-106 [facility] Comment on above: Performed By: #### POCGLUC ####[facility] Cwclyxmumg1729 [place] [address]Dr. Yuki Diaz Glucose [Mass/Vol] 137 mg/dL Critically high 74-106 [facility] Comment on above: Performed By: #### POCGLUC ####[facility] Vksxoadlme[address] [place], [place] [address]Dr. Yuki Diaz Glucose [Mass/Vol] 65 mg/dL Critically low 74-106 [facility] Comment on above: Performed By: #### POCGLUC ####[facility] Caetlwnfvq9663 [place] [address]Dr. Yuki Diaz PROF 14(COMP METB)on 023 Albumin [Mass/Vol] 2.2 g/dL Critically low 3.4-5.0 [facility] Comment on above: Performed By: #### CMP ####[facility] Cmwdlhqrli8589 [place] [address]Dr. Yuki Diaz Albumin/Globulin [Mass ratio] 0.6 {ratio} Normal [facility] Comment on above: Performed By: #### CMP ####[facility] ital Poxmshaqwu8848 [place] [address]Dr. Yuki Diaz ALP [Catalytic activity/Vol] 64 U/L Normal 46-116 [facility] Comment on above: Performed By: #### CMP ####[facility] ital Ofsqzowony3401 [place] [address]Dr. Yuki Diaz ALT [Catalytic activity/Vol] 11 U/L Critically low 16-63 [facility] Comment on above: Performed By: #### CMP ####[facility] Okxkebnyed5456 [place] [address]Dr. uYki Diaz Anion gap [Moles/Vol] 13.5 mmol/L Normal [facility] Comment on above: Performed By: #### CMP ####[facility] ital Obgcvxfpju2056 [place] [address]Dr. Yuki Joe AST [Catalytic activity/Vol] 12 U/L Critically low 15-37 [facility] Comment on above: Performed By: #### CMP ####[facility] ital Jgsvumwfth6712 [place] [address]Dr. Yuki Diaz Bilirubin [Mass/Vol] 0.8 mg/dL Normal 0.2-1.0 [facility] Comment on above: Performed By: #### CMP ####[facility] Yfvjrsexlp8956 [place] [address]Dr. Yuki Diaz Calcium [Mass/Vol] 8.5 mg/dL Normal 8.5-10.1 [facility] Comment on above: Performed By: #### CMP ####[facility] Eahmatdfpo[address] [place], [place] [address]Dr. Yuki Diaz Chloride [Moles/Vol] 100 mmol/L Normal 98-107 [facility] Comment on above: Performed By: #### CMP ####[facility] Iucnvneceg[address] [place], [place] [address]Dr. Yuki Diaz CO2 [Moles/Vol] 28.1 mmol/L Normal 21.0-32.0 [facility] Comment on above: Performed By: #### CMP ####[facility] Ragutxyrdt8743 [place] [address]Dr. Yuki Diaz Creatinine [Mass/Vol] 2.93 mg/dL Critically high 0.70-1.30 [facility] Comment on above: Performed By: #### CMP ####[facility] ital Zhwoahkpqp1484 [place] [address]Dr. Yuki Diaz EGFR-AF LEBANESE 25 mL/min/1.73m2 Critically low >=60 [facility] Comment on above: Performed By: #### CMP ####[facility] Ywwmnmxvhz9806 [place] [address]Dr. Yuki Diaz EGFR-NON AF LEBANESE 21 mL/min/1.73m2 Critically low >=60 [facility] Comment on above: Performed By: #### CMP ####[facility] ital Fopcnyiqyf0260 [place] [address]Dr. Yuki Diaz Globulin (S) [Mass/Vol] 3.7 g/dL Normal [facility] Comment on above: Performed By: #### CMP ####[facility] ital Jyjojztqzi6930 [place] [address]Dr. Yuki Diaz Glucose [Mass/Vol] 112 mg/dL Critically high 74-106 [facility] Comment on above: Performed By: #### CMP ####[facility] ital Erwkbcerig8293 [place] [address]Dr. Yuki Diaz Potassium [Moles/Vol] 4.6 mmol/L Normal 3.5-5.1 [facility] Comment on above: Performed By: #### CMP ####[facility] Oaagexfamx3760 [place] [address]Dr. Yuki Diaz Protein [Mass/Vol] 5.9 g/dL Critically low 6.4-8.2 [facility] Comment on above: Performed By: #### CMP ####[facility] Ycwmfgtwil0698 [place] [address]Dr. Yuki Diaz Sodium [Moles/Vol] 137 mmol/L Normal 136-145 [facility] Comment on above: Performed By: #### CMP ####[facility] ital Jgxxvapgcu0386 [place] [address]Dr. Yuki Diaz Urea nitrogen [Mass/Vol] 56.0 mg/dL Critically high 7.0-18.0 [facility] Comment on above: Performed By: #### CMP ####[facility] ital Dhnpwviwvf5732 [place] [address]Dr. Yuki Diaz Urea nitrogen/Creatin ine [Mass ratio] 19.1 mg/mg Normal [facility] Comment on above: Performed By: #### CMP ####[facility] ital Mitixbmmxj1585 [place] [address]Dr. Yuki Diaz TYPE AND SCREENon 10-25-2022 TYPE AND SCREEN Negative Normal [facility] Comment on above: Performed By: #### TNS ####[facility] Fsspmpxcty4912 [place] [address]Dr. Yuki Diaz XR CHEST 1 Von 10-25-2022 XR CHEST 1 V Normal [facility] CBC AUTO DIFFon 10-24-2022 BASO # 0.0 103/ul Normal 0.0-0.1 [facility] Comment on above: Performed By: #### CBC ####[facility] Lmsucavgmz1774 [place] [address]Dr. Yuki Diaz Basophils/100 WBC (Bld) 0.1 % Critically low 0.2-2.0 [facility] Comment on above: Performed By: #### CBC ####[facility] Rgjruweaic[address] [place], [place] [address]Dr. Yuki Diza EO # 0.0 103/ul Normal 0.0-0.7 [facility] Comment on above: Performed By: #### CBC ####[facility] Cdvcdxsnvo[address] [place], [place] [address]Dr. Yuki Diaz Eosinophils/100 WBC (Bld) 0.0 % Critically low 0.9-7.0 [facility] Comment on above: Performed By: #### CBC ####[facility] Vmlwuqczyg5973 [place] [address]Dr. Yuki Diaz Erythrocyte distribution width (RBC) [Ratio] 15.2 % Critically high 11.0-15.0 [facility] Comment on above: Performed By: #### CBC ####[facility] Flyzuwhvuz[address] [place], [place] [address]Dr. Yuki Diaz Hematocrit (Bld) [Volume fraction] 27.4 % Critically low 42.0-54.0 [facility] Comment on above: Performed By: #### CBC ####[facility] Qazbdldkxj34[address] [place], [place] [address]Dr. Yuki Diaz Hemoglobin (Bld) [Mass/Vol] 8.4 g/dL Critically low 14.0-18.0 [facility] Comment on above: Performed By: #### CBC ####[facility] ital Gyoubndyzc6414 [place] [address]Dr. Yuki Diaz IG # 0.13 10e3/ul Critically high 0.00-0.03 [facility] Comment on above: Performed By: #### CBC ####[facility] ital Fhecxgvldv4941 [place] [address]DrBebo Monsealyssa Diaz IG % 0.7 % Critically high 0.0-0.5 [facility] Comment on above: Performed By: #### CBC ####[facility] ital Mfvmjqguxo2816 [place] [address]Dr. Yuki Diaz LYMPH # 1.0 103/ul Critically low 1.2-3.8 [facility] Comment on above: Performed By: #### CBC ####[facility] ital Xtiywnckaq3221 [place] [address]Dr. Yuki Diaz Lymphocytes/100 WBC (Bld) 5.5 % Critically low 20.5-60.0 [facility] Comment on above: Performed By: #### CBC ####[facility] ital Kdszrgdbbr3810 [place] [address]DrBebo Diaz MANUAL DIFF REQ NO Normal [facility] Comment on above: Performed By: #### CBC ####[facility] Fwjzwlzvkq1903 [place] [address]Dr. Yuki Diaz MCH (RBC) [Entitic mass] 27.8 pg Normal 25.9-34.0 [facility] Comment on above: Performed By: #### CBC ####[facility] ital Fariojxsok2214 [place] [address]Dr. Monsealyssa Diaz MCHC (RBC) [Mass/Vol] 30.7 g/dL Normal 29.9-35.2 [facility] Comment on above: Performed By: #### CBC ####[facility] ital Ugmpkuwlnb8764 [place] [address]Dr. Yuki Diaz MCV (RBC) [Entitic vol] 90.7 fL Normal 80.0-94.0 [facility] Comment on above: Performed By: #### CBC ####[facility] ital Gvzwqvspdz6973 [place] [address]Dr. Yuki Diaz MONO # 2.8 103/ul Critically high 0.3-0.8 [facility] Comment on above: Performed By: #### CBC ####[facility] Ytsutcezut5773 [place] [address]Dr. Yuki Diaz Monocytes/100 WBC (Bld) 15.0 % Critically high 1.7-12.0 [facility] Comment on above: Performed By: #### CBC ####[facility] ital Czcklbzavo8716 [place] [address]Dr. Yuki Diaz NEUT # 14.9 103/ul Critically high 1.4-6.5 [facility] Comment on above: Performed By: #### CBC ####[facility] ital Gvettbwdad0360 [place] [address]Dr. Yuki Diaz Neutrophils/100 WBC (Bld) 78.7 % Critically high 43.0-75.0 [facility] Comment on above: Performed By: #### CBC ####[facility] Rwijbrqfvi4186 [place] [address]Dr. Yuki Diaz Platelet mean volume (Bld) [Entitic vol] 10.8 fL Normal 9.5-13.5 [facility] Comment on above: Performed By: #### CBC ####[facility] ital Qzhdiknvag3852 [place] [address]Dr. Yuki Diaz PLT 212 103/ul Normal 150-450 [facility] Comment on above: Performed By: #### CBC ####[facility] ital Nwequgvjfq9000 [place] [address]Dr. Yuki Diaz RBC 3.02 106/ul Critically low 4.70-6.10 [facility] Comment on above: Performed By: #### CBC ####[facility] Kbxvbstbrz9176 [place] [address]Dr. Yuki Diaz WBC 18.9 103/ul Critically high 4.0-11.0 [facility] Comment on above: Performed By: #### CBC ####[facility] ital Nkwaxwpqla4399 [place] [address]Dr[address] Y[address] CT KNEE RT WO CONon 10-25-[address] KNEE RT WO CON Normal [facility] POINT OF CARE GLUCOSEon 10-06 0 Glucose [Mass/Vol] 134 mg/dL Critically high 74-106 [facility] Comment on above: Performed By: #### POCGLUC ####[facility] Akkycnvino4069 [place] [address]Dr. Yuki Diaz Glucose [Mass/Vol] 110 mg/dL Critically high 74-106 [facility] Comment on above: Performed By: #### POCGLUC ####[facility] Sbtrcyupwl4497 [place] [address]Dr. Yuki Diaz PROF 14(COMP METB)on 023 Albumin [Mass/Vol] 2.8 g/dL Critically low 3.4-5.0 [facility] Comment on above: Performed By: #### CMP ####[facility] ital Vjahgamsto7051 [place] [address]Dr. Yuki Diaz Albumin/Globulin [Mass ratio] 0.8 {ratio} Normal [facility] Comment on above: Performed By: #### CMP ####[facility] ital Obdbwaelax8244 [place] [address]Dr. Yuki Diaz ALP [Catalytic activity/Vol] 89 U/L Normal 46-116 [facility] Comment on above: Performed By: #### CMP ####[facility] Crsfybrnrm3133 [place] [address]Dr. Yuki Diaz ALT [Catalytic activity/Vol] 10 U/L Critically low 16-63 [facility] Comment on above: Performed By: #### CMP ####[facility] Fisffdtdox3111 [place] [address]Dr. Yuki Diaz Anion gap [Moles/Vol] 11.7 mmol/L Normal [facility] Comment on above: Performed By: #### CMP ####[facility] Gaktmbnakg0115 [place] [address]Dr. Yuki Diaz AST [Catalytic activity/Vol] 12 U/L Critically low 15-37 [facility] Comment on above: Performed By: #### CMP ####[facility] ital Ahmfrourrx3789 [place] [address]Dr. Yuki Joe Bilirubin [Mass/Vol] 0.9 mg/dL Normal 0.2-1.0 [facility] Comment on above: Performed By: #### CMP ####[facility] ital Clbvrirtbk8557 [place] [address]Dr. Yuki Diaz Calcium [Mass/Vol] 8.7 mg/dL Normal 8.5-10.1 [facility] Comment on above: Performed By: #### CMP ####[facility] ital Kprfejctas[address] [place], [place] [address]Dr. Yuki Diaz Chloride [Moles/Vol] 102 mmol/L Normal 98-107 [facility] Comment on above: Performed By: #### CMP ####[facility] ital Nleaaznjqx785[address] [place], [place] [address]Dr. Yuki Diaz CO2 [Moles/Vol] 29.1 mmol/L Normal 21.0-32.0 [facility] Comment on above: Performed By: #### CMP ####[facility] Izmsneriha09[address] [place], [place] [address]Dr. Yuki Diaz Creatinine [Mass/Vol] 2.75 mg/dL Critically high 0.70-1.30 [facility] Comment on above: Performed By: #### CMP ####[facility] ital Xlilfmckcd983[address] [place], [place] [address]Dr. Yuki Diaz EGFR-AF LEBANESE 27 mL/min/1.73m2 Critically low >=60 [facility] Comment on above: Performed By: #### CMP ####[facility] ital Sehlityrpe[address] [place], [place] [address]Dr. Yuki Diaz EGFR-NON AF LEBANESE 22 mL/min/1.73m2 Critically low >=60 [facility] Comment on above: Performed By: #### CMP ####[facility] ital Xqcqbfnnjp994[address] [place], [place] [address]Dr. Yuki Diaz Globulin (S) [Mass/Vol] 3.7 g/dL Normal [facility] Comment on above: Performed By: #### CMP ####[facility] ital Fmzaurkzvw3046 [place] [address]Dr. Yuki Diaz Glucose [Mass/Vol] 121 mg/dL Critically high 74-106 [facility] Comment on above: Performed By: #### CMP ####[facility] ital Rnfmszdqbg6971 [place] [address]Dr. Yuki Diaz Potassium [Moles/Vol] 4.8 mmol/L Normal 3.5-5.1 [facility] Comment on above: Performed By: #### CMP ####[facility] ital Yvcpyqduwo506[address] [place], [place] [address]Dr. Yuki Diaz Protein [Mass/Vol] 6.5 g/dL Normal 6.4-8.2 [facility] Comment on above: Performed By: #### CMP ####[facility] ital Sknnityitf06[address] [place], [place] [address]Dr. Yuki Diaz Sodium [Moles/Vol] 138 mmol/L Normal 136-145 [facility] Comment on above: Performed By: #### CMP ####[facility] Lnnnqxuljz64[address] [place], [place] [address]Dr. Yuki Diaz Urea nitrogen [Mass/Vol] 39.0 mg/dL Critically high 7.0-18.0 [facility] Comment on above: Performed By: #### CMP ####[facility] ital Pwjdjtuyrn7430 [place] [address]Dr. Yuki Diaz Urea nitrogen/Creatin ine [Mass ratio] 14.2 mg/mg Normal [facility] Comment on above: Performed By: #### CMP ####[facility] ital Ujoceeuuio5561 [place] [address]Dr. Yuki Joe US KIDNEYS BLADDERon 023 US KIDNEYS BLADDER Normal [facility] CBC AUTO DIFFon 10-23-2022 BASO # 0.0 103/ul Normal 0.0-0.1 [facility] Comment on above: Performed By: #### CBC ####[facility] Mkhoxahqdo5013 [place] [address]Dr. Yuki Diaz Basophils/100 WBC (Bld) 0.1 % Critically low 0.2-2.0 [facility] Comment on above: Performed By: #### CBC ####[facility] Zrcfyyxmlk7988 [place] [address]Dr. Yuki Diaz EO # 0.1 103/ul Normal 0.0-0.7 [facility] Comment on above: Performed By: #### CBC ####[facility] Hobthlzbcs3868 [place] [address]Dr. Yuki Diaz Eosinophils/100 WBC (Bld) 0.4 % Critically low 0.9-7.0 [facility] Comment on above: Performed By: #### CBC ####[facility] Tucvykkwvj5615 [place] [address]Dr. Yuki Diaz Erythrocyte distribution width (RBC) [Ratio] 15.0 % Normal 11.0-15.0 [facility] Comment on above: Performed By: #### CBC ####[facility] Immmidcjid8567 [place] [address]Dr. Yuki Diaz Hematocrit (Bld) [Volume fraction] 29.8 % Critically low 42.0-54.0 [facility] Comment on above: Performed By: #### CBC ####[facility] Lzptuyxubw6980 [place] [address]Dr. Yuki Diaz Hemoglobin (Bld) [Mass/Vol] 9.1 g/dL Critically low 14.0-18.0 [facility] Comment on above: Performed By: #### CBC ####[facility] Sfdbwfgrqv1312 [place] [address]Dr. Yuki Diaz IG # 0.07 10e3/ul Critically high 0.00-0.03 [facility] Comment on above: Performed By: #### CBC ####[facility] Pmhcjudknw2827 [place] [address]Dr. Yuki Diaz IG % 0.5 % Normal 0.0-0.5 [facility] Comment on above: Performed By: #### CBC ####[facility] ital Yzvbsvvkym2712 [place] [address]Dr. Monsealyssa Diaz LYMPH # 1.0 103/ul Critically low 1.2-3.8 [facility] Comment on above: Performed By: #### CBC ####[facility] ital Lcstrxvobn0348 [place] [address]Dr. Monsealyssa Diaz Lymphocytes/100 WBC (Bld) 7.8 % Critically low 20.5-60.0 [facility] Comment on above: Performed By: #### CBC ####[facility] ital Cvtpxaaxux8306 [place] [address]Dr. Yuki Diaz MANUAL DIFF REQ NO Normal [facility] Comment on above: Performed By: #### CBC ####[facility] ital Jeqvusyidu6433 [place] [address]Dr. Yuki Diaz MCH (RBC) [Entitic mass] 27.9 pg Normal 25.9-34.0 [facility] Comment on above: Performed By: #### CBC ####[facility] ital Syttrswhow9278 [place] [address]Dr. Monsealyssa Diaz MCHC (RBC) [Mass/Vol] 30.5 g/dL Normal 29.9-35.2 [facility] Comment on above: Performed By: #### CBC ####[facility] ital Qdsaputzxt5267 [place] [address]Dr. Yuki Diaz MCV (RBC) [Entitic vol] 91.4 fL Normal 80.0-94.0 [facility] Comment on above: Performed By: #### CBC ####[facility] ital Jzyhdjwjbq7844 [place] [address]Dr. Yuki Diaz MONO # 2.1 103/ul Critically high 0.3-0.8 [facility] Comment on above: Performed By: #### CBC ####[facility] ital Emqqfiamjs7497 [place] [address]Dr. Yuki Diaz Monocytes/100 WBC (Bld) 16.0 % Critically high 1.7-12.0 [facility] Comment on above: Performed By: #### CBC ####[facility] ital Mnvlxbwwaw3577 [place] [id number]. Yuki Diaz NEUT # 10.1 103/ul Critically high 1.4-6.5 [facility] Comment on above: Performed By: #### CBC ####[facility] Pwrmdbwuct5473 [place] [id number]. Yuki Diaz Neutrophils/100 WBC (Bld) 75.2 % Critically high 43.0-75.0 [facility] Comment on above: Performed By: #### CBC ####[facility] Gafxrouvgt7010 [place] [address]Dr. Yuki Diaz Platelet mean volume (Bld) [Entitic vol] 10.3 fL Normal 9.5-13.5 [facility] Comment on above: Performed By: #### CBC ####[facility] Tpktmsfvix9078 [place] [address]Dr. Yuki Diaz PLT 255 103/ul Normal 150-450 [facility] Comment on above: Performed By: #### CBC ####[facility] Nhkgnrbikt7420 [place] [address]Dr. Yuki Diaz RBC 3.26 106/ul Critically low 4.70-6.10 [facility] Comment on above: Performed By: #### CBC ####[facility] Weedrldazu0759 [place] [address]Dr. Yuki Diaz WBC 13.4 103/ul Critically high 4.0-11.0 [facility] Comment on above: Performed By: #### CBC ####[facility] Fyjjzcaupk8456 [place] [phone]. Yuki Diaz CULTURE BLOODon 10-23-2022 Microscopic examination of blood, culture Culture Observations: NO GROWTH AT 5 DAYS. Normal [facility] Comment on above: Performed By: #### BLDCX1 ####[facility] Bciumyyupi5239 [place] [address]Dr. Yuki Diaz Performed By: #### B LDCX2 ####[facility] Huerbqbdzy374[address] [place], [place] [address]Dr. Yuki Diaz CULTURE URINEon 10-23-2022 CULTURE URINE Culture Observations : NO GROWTH. Normal [facility] Comment on above: Performed By: #### URCX ####[facility] Mzxfazmeje206[address] [place], [place] [address]Dr. Yuki Diaz Covid-19 PCR (CVDTB)on 10-05 SARS-CoV-2 (COVID-19) RNA JARVIS+probe Ql (Unsp spec) Not detected Normal NOT DETECTED [facility] Comment on above: Result Comment: When [...] for this test is supported by the [place] of [employer] and Human Service's declaration that [...] longer be used). Performed By: #### C VDTBH ####[facility] Zjwsurvkpi[address] [place], [place] [address]Dr. Yuki Diaz ER URINE PROFILEon 3 Bilirubin Ql (U) Negative Normal NEGATIVE [facility] Comment on above: Performed By: #### HAKAN CAZARESRO ####[facility] Bkdcfgryjq7[address] [place], [place] [address]Dr. Yuki Diaz Clarity (U) CLEAR Normal CLEAR [facility] Comment on above: Performed By: #### SAGE UMICRO ####[facility] Sbuoxorlul[address] [place], [place] [address]Dr. Yuki Diaz Color (U) YELLOW Normal YELLOW [facility] Comment on above: Performed By: #### ERUR, UMICRO ####[facility] Ldmmqrqikn6212 [place] [address]Dr. Yuki VÁSQUEZ A micrscopic examina tion will be performed if indicated. Normal [facility] Comment on above: Performed By: #### HAKAN CAZARESRO ####[facility] Reydaenaco4848 [place] [address]Dr. Yuki Diaz Glucose Ql (U) Negative Normal NEGATIVE [facility] Comment on above: Performed By: #### SAGE UMKETANRO ####[facility] Ikyqwhubcq9665 [place] [address]Dr. Yuki Diaz Hemoglobin Ql (U) SMALL Abnormal NEGATIVE [facility] Comment on above: Performed By: #### SAGE UMKETANRO ####[facility] Wgrtswjvnz8710 [place] [address]Dr. Yuki Diaz Ketones Ql (U) Negative Normal NEGATIVE [facility] Comment on above: Performed By: #### HAKAN CAZARESRO ####[facility] Hcoyluoheg652[address] [place], [place] [address]Dr. Yuki Diaz LEUKOCYTES Negative Normal NEGATIVE [facility] Comment on above: Performed By: #### HAKAN CAZARESRO ####[facility] Bwbtrsgemf[address] [place], [place] [address]Dr. Yuki Diaz Nitrite Ql (U) Negative Normal NEGATIVE [facility] Comment on above: Performed By: #### HAKAN CAZARESRO ####[facility] Oaapfubbuv[address] [place], [place] [address]Dr. Yuki Diaz pH (U) 7.0 [pH] Normal 5-9 [facility] Comment on above: Performed By: #### HAKAN CAZARESRO ####[facility] Sjtzeilavz[address] [place], [place] [address]Dr. Yuki Diaz Protein (U) [Mass/Vol] 30 mg/dL Abnormal NEGATIVE/ TRACE [facility] Comment on above: Performed By: #### HAKAN CAZARESRO ####[facility] Zaqhjkfcfq85[address] [place], [place] [address]Dr. Yuki Diaz SPEC GRAVITY 1.010 Normal 1.005-<=1. 025 [facility] Comment on above: Performed By: #### MARCELLO CAZARES ####[facility] Idgvpraluq374[address] [place], [place] [address]Dr. Yuki Diaz UR MICRO IND INDICATED Normal [facility] Comment on above: Performed By: #### MARCELLO CAZARES ####[facility] Wihqigiplc1586 [place] [address]Dr. Monsealyssa Diaz Urobilinogen Qn (U) 1.0 {Chidi'U}/dL Normal 0.2 - 1.0 [facility] Comment on above: Performed By: #### MARCELLO CAZARES ####[facility] Fdqsyoniug[address] [place], [place] [address]Dr. Yuki Diaz INFLUENZA A AND B AGon 10-23 INFLUANEGH SEE BELOW Normal [facility] Comment on above: Result Comment: Negative for Flu A prote in angiten. Infection due to Flu A cannot be ruled out. Flu A angiten in the sample may be below the detection limit of the test. Performed By: #### I NFLUAB ####[facility] Keyvlgcxtw346[address] [place], [place] [address]Dr. Yuki Diaz INFLUBNEGH SEE BELOW Normal [facility] Comment on above: Result Comment: Negative for Flu B prote in antigen. Infection due to Flu B cannot be ruled out. Flu B antigen in the sample may be below the detection limit of the test. Performed By: #### I NFLUAB ####[facility] Gvdhjpgdbl[address] [place], [place] [address]Dr. uYki Diaz INFLUENZA A AG Negative Normal NEGATIVE SEE COMMENT [facility] Comment on above: Performed By: #### INFLUAB ####[facility] Vibsshpbxz[address] [place], [place] [address]Dr. Yuki Diaz INFLUENZA B AG Negative Normal NEGATIVE SEE COMMENT [facility] Comment on above: Performed By: #### INFLUAB ####[facility] Kswsuruivx[address] [place], [place] [address]Dr. Monsealyssa Joe LACTATE/LACTIC ACIDon 2022 Lactate [Moles/Vol] 1.5 mmol/L Normal 0.4-2.0 [facility] Comment on above: Performed By: #### LACT ####[facility] pital Ywcdiyykho3295 [place] [address]Dr. Yuki Diaz Lactate [Moles/Vol] 1.6 mmol/L Normal 0.4-2.0 [facility] Comment on above: Performed By: #### LACT ####[facility] pital Gisetvyowq2495 [place] [address]Dr. Monsealyssa Joe Lactate [Moles/Vol] 1.3 mmol/L Normal 0.4-2.0 [facility] Comment on above: Performed By: #### LACT ####[facility] Shdhbwrabj9879 [place] [address]Dr. Yuki Diaz POINT OF CARE GLUCOSEon 10-05 Glucose [Mass/Vol] 145 mg/dL Critically high 74-106 [facility] Comment on above: Performed By: #### POCGLUC ####[facility] Ekwyrszsbv1463 [place] [address]Dr. Yuki Diaz Glucose [Mass/Vol] 127 mg/dL Critically high 74-106 [facility] Comment on above: Performed By: #### POCGLUC ####[facility] Gjvljtbqjs3150 [place] [address]Dr. Yuki Diaz PROF 14(COMP METB)on 023 Albumin [Mass/Vol] 3.4 g/dL Normal 3.4-5.0 [facility] Comment on above: Performed By: #### CMP ####[facility] ital Zgiyuhongh8227 [place] [address]Dr. Yuki Diaz Albumin/Globulin [Mass ratio] 0.8 {ratio} Normal [facility] Comment on above: Performed By: #### CMP ####[facility] ital Khmfgmzxaz8628 [place] [address]Dr. Yuki Diaz ALP [Catalytic activity/Vol] 100 U/L Normal 46-116 [facility] Comment on above: Performed By: #### CMP ####[facility] ital Knvtthcalv4493 [place] [id number]. Yuki Diaz ALT [Catalytic activity/Vol] 15 U/L Critically low 16-63 [facility] Comment on above: Performed By: #### CMP ####[facility] ital Zpuvpotgok6952 [place] [id number]. Yuki Diaz Anion gap [Moles/Vol] 14.2 mmol/L Normal [facility] Comment on above: Performed By: #### CMP ####[facility] ital Iwbkguuwyd8316 [place] [address]Dr. Yuki Diaz AST [Catalytic activity/Vol] 12 U/L Critically low 15-37 [facility] Comment on above: Performed By: #### CMP ####[facility] Vawywjyjdj8021 [place] [address]Dr. Yuki Diaz Bilirubin [Mass/Vol] 0.8 mg/dL Normal 0.2-1.0 [facility] Comment on above: Performed By: #### CMP ####[facility] ital Ipoctofzqx8697 [place] [address]Dr. Yuki Diaz Calcium [Mass/Vol] 9.0 mg/dL Normal 8.5-10.1 [facility] Comment on above: Performed By: #### CMP ####[facility] Ifbeurdkli8707 [place] [address]Dr. Yuki Diaz Chloride [Moles/Vol] 101 mmol/L Normal 98-107 [facility] Comment on above: Performed By: #### CMP ####[facility] ital Dahsbsebed5793 [place] [address]Dr. Yuki Diaz CO2 [Moles/Vol] 30.3 mmol/L Normal 21.0-32.0 [facility] Comment on above: Performed By: #### CMP ####[facility] ital Jtyrgnsand6065 [place] [address]Dr. Yuki Diaz Creatinine [Mass/Vol] 2.86 mg/dL Critically high 0.70-1.30 [facility] Comment on above: Performed By: #### CMP ####[facility] ital Peerplajyu9356 [place] [phone]. Yuki Diaz EGFR-AF LEBANESE 26 mL/min/1.73m2 Critically low >=60 [facility] Comment on above: Performed By: #### CMP ####[facility] ital Hmxbpzjsar4326 [place] [phone]. Yuki Diaz EGFR-NON AF LEBANESE 21 mL/min/1.73m2 Critically low >=60 [facility] Comment on above: Performed By: #### CMP ####[facility] ital Lbbxadayuw8092 [place] [phone]. Yuki Diaz Globulin (S) [Mass/Vol] 4.1 g/dL Normal [facility] Comment on above: Performed By: #### CMP ####[facility] ital Qxuyaephlo2659 [place] [address]Dr. Yuki Diaz Glucose [Mass/Vol] 153 mg/dL Critically high 74-106 [facility] Comment on above: Performed By: #### CMP ####[facility] ital Djkwjagzix5371 [place] [address]Dr. Yuki Diaz Potassium [Moles/Vol] 4.5 mmol/L Normal 3.5-5.1 [facility] Comment on above: Performed By: #### CMP ####[facility] ital Koqznicvfh2087 [place] [phone]. Yuki Diaz Protein [Mass/Vol] 7.5 g/dL Normal 6.4-8.2 [facility] Comment on above: Performed By: #### CMP ####[facility] ital Ucxdzcjcvo7978 [place] [phone]. Yuki Diaz Sodium [Moles/Vol] 141 mmol/L Normal 136-145 [facility] Comment on above: Performed By: #### CMP ####[facility] ital Asbvviapyh1914 [place] [address]Dr. Yuki Diaz Urea nitrogen [Mass/Vol] 40.0 mg/dL Critically high 7.0-18.0 [facility] Comment on above: Performed By: #### CMP ####[facility] ital Bskzadptcz7609 [place] [address]Dr. Yuki Diaz Urea nitrogen/Creatin ine [Mass ratio] 14.0 mg/mg Normal [facility] Comment on above: Performed By: #### CMP ####[facility] Zjzvljxuid45[address] [place], [place] [address]Dr. Yuki Diaz URINE MICROSCOPIC ONLYon BACTERIA NONE SEEN Normal NONE SEEN [facility] Comment on above: Performed By: #### HAKAN CAZARESRO ####[facility] Vfwifihfzo44[address] [place], [place] [address]Dr. Yuki Diaz Bacteria identified Cx Nom (U) CX ALREADY ORDERED Normal [facility] Comment on above: Performed By: #### HAKAN CAZARESRO ####[facility] Eimsscdxla503[address] [place], [place] [address]Dr. Yuki Diaz CAST NONE SEEN Normal NONE SEEN [facility] Comment on above: Performed By: #### HAKAN CAZARESRO ####[facility] Azakkjckge646[address] [place], [place] [address]Dr. Yuki Diaz Crystals LM Nom (Urine sed) NONE SEEN Normal NONE SEEN [facility] Comment on above: Performed By: #### HAKAN CAZARESRO ####[facility] Kerbadnylr[address] [place], [place] [address]Dr. Yuki Diaz Epithelial cells LM Ql (Urine sed) NONE SEEN Normal NONE SEEN /RARE [facility] Comment on above: Performed By: #### HAKAN CAZARESRO ####[facility] Sgvgfibqqv417[address] [place], [place] [address]Dr. Yuki Diaz MUCOUS NONE SEEN Normal NONE SEEN [facility] Comment on above: Performed By: #### HAKAN CAZARESRO ####[facility] Htiyenyaol98[address] [place], [place] [address]Dr. Yuki Diaz RBC 0-2 Normal 0-2 [facility] Comment on above: Performed By: #### HAKAN CAZARESRO ####[facility] Holbfdhyro[address] [place], [place] [address]Dr. Yuki Diaz WBC NONE SEEN Normal NONE SEEN [facility] Comment on above: Performed By: #### ERURMARCELLO ####[facility] Bhzmbactix9872 [place] [address]Dr. Yuki Diaz XR KNEE RT 4V or >on 023 XR KNEE RT 4V or > Normal [facility] XR HAND LT MIN 3Von 10-23-19 23 XR HAND LT MIN 3V Normal [facility] BNPon 10-13-2022 Natriuretic peptide B (Bld) [Mass/Vol] 1093.0 pg/mL Normal <=1,800.0 [facility] Comment on above: Performed By: #### BMP, BNP ####[facility] Cakaznavii94[address] [place], [place] [address]Dr. Yuki Diaz PROF CHEM 8 (BAS METB)on Anion gap [Moles/Vol] 9.7 mmol/L Normal [facility] Comment on above: Performed By: #### BMP, BNP ####[facility] Mygzraacvh74[address] [place], [place] [address]Dr. Yuki Diaz Calcium [Mass/Vol] 8.6 mg/dL Normal 8.5-10.1 [facility] Comment on above: Performed By: #### BMP, BNP ####[facility] Jymvbkmhoq224[address] [place], [place] [address]Dr. Yuki Diaz Chloride [Moles/Vol] 105 mmol/L Normal 98-107 [facility] Comment on above: Performed By: #### BMP, BNP ####[facility] Ajncnojkvl315[address] [place], [place] [address]Dr. Yuki Diaz CO2 [Moles/Vol] 31.1 mmol/L Normal 21.0-32.0 [facility] Comment on above: Performed By: #### BMP, BNP ####[facility] Bjwuvkxaij832[address] [place], [place] [address]Dr. Yuki Diaz Creatinine [Mass/Vol] 2.46 mg/dL Critically high 0.70-1.30 [facility] Comment on above: Performed By: #### BMP, BNP ####[facility] Fvwolblbvp78[address] [place], [place] [address]Dr. Yuki Diaz EGFR-AF LEBANESE 31 mL/min/1.73m2 Critically low >=60 [facility] Comment on above: Performed By: #### BMP, BNP ####[facility] Hazghnbjrt6022 [place] [address]Dr. Yuki Diaz EGFR-NON AF LEBANESE 25 mL/min/1.73m2 Critically low >=60 [facility] Comment on above: Performed By: #### BMP, BNP ####[facility] Spdnjolijm3884 [place] [address]Dr. Yuki Diaz Glucose [Mass/Vol] 155 mg/dL Critically high 74-106 [facility] Comment on above: Performed By: #### BMP, BNP ####[facility] Yiedzwgcjb1506 [place] [address]Dr. Yuki Diaz Potassium [Moles/Vol] 3.8 mmol/L Normal 3.5-5.1 [facility] Comment on above: Performed By: #### BMP, BNP ####[facility] Uphymwloma0399 [place] [address]Dr. Yuki Diaz Sodium [Moles/Vol] 142 mmol/L Normal 136-145 [facility] Comment on above: Performed By: #### BMP, BNP ####[facility] Hmwogqsrbp4016 [place] [address]Dr. Yuki Diaz Urea nitrogen [Mass/Vol] 37.0 mg/dL Critically high 7.0-18.0 [facility] Comment on above: Performed By: #### BMP, BNP ####[facility] Vooaixxjzo1239 [place] [address]Dr. Yuki Diaz Urea nitrogen/Creatin ine [Mass ratio] 15.0 mg/mg Normal [facility] Comment on above: Performed By: #### BMP, BNP ####[facility] Czzlosgdzm6234 [place] [address]Dr. Yuki Joe Provider Letteron 09-20-2022 Provider Letter (Inserted Image. Alice ble to display) September 20, 2022 [address] [place] [id number] SHENG BAUER 1940 Dear Sheng , You [...] [facility] [address], [place] [address] [facility] BNPon 09-19-2022 Natriuretic peptide B (Bld) [Mass/Vol] 1200.0 pg/mL Normal <=1,800.0 [facility] Comment on above: Performed By: #### CMP, BNP ####[facility] Zoelgugkmb1056 [place] [address]Dr. Yuki Diaz PROF 14(COMP METB)on 023 Albumin [Mass/Vol] 3.2 g/dL Critically low 3.4-5.0 [facility] Comment on above: Performed By: #### CMP, BNP ####[facility] Bjagzshrlz7757 [place] [address]Dr. Yuki Diaz Albumin/Globulin [Mass ratio] 0.8 {ratio} Normal [facility] Comment on above: Performed By: #### CMP, BNP ####[facility] Qkfnsauypr3126 [place] [address]Dr. Yuki Diaz ALP [Catalytic activity/Vol] 93 U/L Normal 46-116 [facility] Comment on above: Performed By: #### CMP, BNP ####[facility] Ysnjuwbqbx6886 [place] [address]Dr. Yuki Diaz ALT [Catalytic activity/Vol] 16 U/L Normal 16-63 [facility] Comment on above: Performed By: #### CMP, BNP ####[facility] Sqpmioiywa[address] [place], [place] [address]Dr. Yuki Diaz Anion gap [Moles/Vol] 13.6 mmol/L Normal [facility] Comment on above: Performed By: #### CMP, BNP ####[facility] Jxfqhgcrsv[address] [place] [address]Dr. Yuki Diaz AST [Catalytic activity/Vol] 13 U/L Critically low 15-37 [facility] Comment on above: Performed By: #### CMP, BNP ####[facility] Hcgdywvzuw200[address] [place], [place] [address]Dr. Yuki Diaz Bilirubin [Mass/Vol] 0.5 mg/dL Normal 0.2-1.0 [facility] Comment on above: Performed By: #### CMP, BNP ####[facility] Mwbpdwmeje098[address] [place], [place] [address]Dr. Yuki Diaz Calcium [Mass/Vol] 8.9 mg/dL Normal 8.5-10.1 [facility] Comment on above: Performed By: #### CMP, BNP ####[facility] Ihgncslfzq[address] [place], [place] [address]Dr. Yuki Diaz Chloride [Moles/Vol] 107 mmol/L Normal 98-107 [facility] Comment on above: Performed By: #### CMP, BNP ####[facility] Vtbqstyumt264[address] [place], [place] [address]Dr. Yuki Diaz CO2 [Moles/Vol] 28.7 mmol/L Normal 21.0-32.0 [facility] Comment on above: Performed By: #### CMP, BNP ####[facility] Tumfcgponb615[address] [place], [place] [address]Dr. Yuki Joe Creatinine [Mass/Vol] 2.61 mg/dL Critically high 0.70-1.30 [facility] Comment on above: Performed By: #### CMP, BNP ####[facility] Bfvuxttyae13[address] [place], [place] [address]Dr. Yuki Joe EGFR-AF LEBANESE 29 mL/min/1.73m2 Critically low >=60 [facility] Comment on above: Performed By: #### CMP, BNP ####[facility] Fycztannuu99[address] [place], [place] [address]Dr. Yuki Diaz EGFR-NON AF LEBANESE 24 mL/min/1.73m2 Critically low >=60 [facility] Comment on above: Performed By: #### CMP, BNP ####[facility] Csrcurjowx2514[address] [place], [place] [address]Dr. Yuki Diaz Globulin (S) [Mass/Vol] 4.0 g/dL Normal [facility] Comment on above: Performed By: #### CMP, BNP ####[facility] Tryptlfnjk4412[address] [place], [place] [address]Dr. Yuki Diaz Glucose [Mass/Vol] 119 mg/dL Critically high 74-106 [facility] Comment on above: Performed By: #### CMP, BNP ####[facility] Roishcroib14[address] [place], [place] [address]Dr. Yuki Diaz Potassium [Moles/Vol] 4.3 mmol/L Normal 3.5-5.1 [facility] Comment on above: Performed By: #### CMP, BNP ####[facility] Ofqvducykh519[address] [place], [place] [address]Dr. Yuki Diaz Protein [Mass/Vol] 7.2 g/dL Normal 6.4-8.2 [facility] Comment on above: Performed By: #### CMP, BNP ####[facility] Vgfwlgsqix[address] [place], [place] [address]Dr. Yuki Diaz Sodium [Moles/Vol] 145 mmol/L Normal 136-145 [facility] Comment on above: Performed By: #### CMP, BNP ####[facility] Cykkkvupdv270[address] [place], [place] [address]Dr. Yuki Diaz Urea nitrogen [Mass/Vol] 42.0 mg/dL Critically high 7.0-18.0 [facility] Comment on above: Performed By: #### CMP, BNP ####[facility] Yzkkysvyts388[address] [place], [place] [address]Dr. Yuki Diaz Urea nitrogen/Creatin ine [Mass ratio] 16.1 mg/mg Normal [facility] Comment on above: Performed By: #### CMP, BNP ####[facility] Weiawxlkaq6[address] [place] [address]Dr. Yuki Diaz Office Visiton 09-12-2022 Follow-up visit [id number] JuancarlsoNohelia phi Aguilar 1940 M Date Provider Department Center 09/12/2022 OREN PEDRO [facility] Family History Problem Relation Age of Onset Coronary artery disease Mother Family Status - Relation Status Age at Mother Level of Service:55259 [place] OFFICE/OUTPATIENT ESTABLISHED LOW MDM 20-29 MIN Reason for Visit and Comments: Congestive Heart Failure [127] Coronary Artery Disease [187] Hypertension [093485] Normal [facility] BNPon 09-02-2022 Natriuretic peptide B (Bld) [Mass/Vol] 1506.0 pg/mL Normal <=1,800.0 [facility] Comment on above: Performed By: #### CMP, BNP ####[facility] Iidukkhjck[address] [place] [address]Dr. Yuki Diaz PROF 14(COMP METB)on 023 Albumin [Mass/Vol] 3.0 g/dL Critically low 3.4-5.0 [facility] Comment on above: Performed By: #### CMP, BNP ####[facility] Zqwzbdevgg1120 [place] [address]Dr. Yuki Diaz Albumin/Globulin [Mass ratio] 0.8 {ratio} Normal [facility] Comment on above: Performed By: #### CMP, BNP ####[facility] Mdhmejmzce[address] [place] [address]Dr. Yuki Diaz ALP [Catalytic activity/Vol] 89 U/L Normal 46-116 [facility] Comment on above: Performed By: #### CMP, BNP ####[facility] Xuavxplejb4843 [place] [address]Dr. Yuki Diaz ALT [Catalytic activity/Vol] 17 U/L Normal 16-63 [facility] Comment on above: Performed By: #### CMP, BNP ####[facility] Ytsdnasbqj3463 [place] [address]Dr. Yuki Diaz Anion gap [Moles/Vol] 12.2 mmol/L Normal [facility] Comment on above: Performed By: #### CMP, BNP ####[facility] Bpvbtkumvs6721 [place] [address]Dr. Yuki Diaz AST [Catalytic activity/Vol] 13 U/L Critically low 15-37 [facility] Comment on above: Performed By: #### CMP, BNP ####[facility] Ultgcotcjt0699 [place] [address]Dr. Yuki Diaz Bilirubin [Mass/Vol] 0.4 mg/dL Normal 0.2-1.0 [facility] Comment on above: Performed By: #### CMP, BNP ####[facility] Xpiremnxln812[address] [place], [place] [address]Dr. Yuki Diaz Calcium [Mass/Vol] 8.8 mg/dL Normal 8.5-10.1 [facility] Comment on above: Performed By: #### CMP, BNP ####[facility] Uglxohezxr414[address] [place], [place] [address]Dr. Yuki Diaz Chloride [Moles/Vol] 104 mmol/L Normal 98-107 [facility] Comment on above: Performed By: #### CMP, BNP ####[facility] Akqxhpzudl13[address] [place], [place] [address]Dr. Yuki Diaz CO2 [Moles/Vol] 31.4 mmol/L Normal 21.0-32.0 [facility] Comment on above: Performed By: #### CMP, BNP ####[facility] Asxhcmsmtj2418[address] [place], [place] [address]Dr. Yuki Diaz Creatinine [Mass/Vol] 2.76 mg/dL Critically high 0.70-1.30 [facility] Comment on above: Performed By: #### CMP, BNP ####[facility] Khqgbssovy035[address] [place], [place] [address]Dr. Yuki Joe EGFR-AF LEBANESE 27 mL/min/1.73m2 Critically low >=60 [facility] Comment on above: Performed By: #### CMP, BNP ####[facility] Zzfwdijrfc718[address] [place], [place] [address]Dr. Yuki Joe EGFR-NON AF LEBANESE 22 mL/min/1.73m2 Critically low >=60 [facility] Comment on above: Performed By: #### CMP, BNP ####[facility] Zcdpzwqdcx5890 [place] [address]Dr. Yuki Diaz Globulin (S) [Mass/Vol] 3.8 g/dL Normal [facility] Comment on above: Performed By: #### CMP, BNP ####[facility] Zkxnjnqrum9335 [place] [address]Dr. Monsealyssa Joe Glucose [Mass/Vol] 200 mg/dL Critically high 74-106 [facility] Comment on above: Performed By: #### CMP, BNP ####[facility] Qqkxvcibnn537[address] [place], [place] [address]Dr. Monsealyssa Joe Potassium [Moles/Vol] 4.6 mmol/L Normal 3.5-5.1 [facility] Comment on above: Performed By: #### CMP, BNP ####[facility] Hfmfritusa068[address] [place], [place] [address]Dr. Yuki Joe Protein [Mass/Vol] 6.8 g/dL Normal 6.4-8.2 [facility] Comment on above: Performed By: #### CMP, BNP ####[facility] Mnmjmzkirj144[address] [place], [place] [address]Dr. Yuki Joe Sodium [Moles/Vol] 143 mmol/L Normal 136-145 [facility] Comment on above: Performed By: #### CMP, BNP ####[facility] Ebalczujju5301[address] [place], [place] [address]Dr. Monsealyssa Joe Urea nitrogen [Mass/Vol] 44.0 mg/dL Critically high 7.0-18.0 [facility] Comment on above: Performed By: #### CMP, BNP ####[facility] Fjungphkzh212[address] [place], [place] [address]Dr. Yuki Diaz Urea nitrogen/Creatin ine [Mass ratio] 15.9 mg/mg Normal [facility] Comment on above: Performed By: #### CMP, BNP ####[facility] Mmwsbtehjk156[address] [place], [place] [address]Dr. Yuki Diaz ECHOCARDIO M/2D COMPLETEon 1 09-20-2021 ECHOCARDIO M/2D COMPLETE Normal [facility] Lab Reportson 06-15-2022 Lab Reports [id number]:127 Normal [facility] PROF 14(COMP METB)on 022 Albumin [Mass/Vol] 3.0 g/dL Critically low 3.4-5.0 [facility] Comment on above: Performed By: #### CMP ####[facility] Dssdsyndos07[address] [place] [address]Dr. Yuki Diaz Albumin/Globulin [Mass ratio] 0.9 {ratio} Normal [facility] Comment on above: Performed By: #### CMP ####[facility] ital Xjzzwimrxu8212 [place] [address]Dr. Yuki Diaz ALP [Catalytic activity/Vol] 73 U/L Normal 46-116 [facility] Comment on above: Performed By: #### CMP ####[facility] Znumojdyve512[address] [place], [place] [address]Dr. Yuki Diaz ALT [Catalytic activity/Vol] 21 U/L Normal 16-63 [facility] Comment on above: Performed By: #### CMP ####[facility] ital Gequlteegn9024[address] [place], [place] [address]Dr. Yuki Diaz Anion gap [Moles/Vol] 8.5 mmol/L Normal [facility] Comment on above: Performed By: #### CMP ####[facility] Qciwnxkrej149[address] [place], [place] [address]Dr. Yuki Diaz AST [Catalytic activity/Vol] 11 U/L Critically low 15-37 [facility] Comment on above: Performed By: #### CMP ####[facility] ital Fkkvrzwukm423[address] [place], [place] [address]Dr. Yuki Diaz Bilirubin [Mass/Vol] 0.6 mg/dL Normal 0.2-1.0 [facility] Comment on above: Performed By: #### CMP ####[facility] Xbiggomqfj789[address] [place], [place] [address]Dr. Yuki Diaz Calcium [Mass/Vol] 8.7 mg/dL Normal 8.5-10.1 [facility] Comment on above: Performed By: #### CMP ####[facility] ital Kauzkbuyvw9914 [place] [address]Dr. Yuki Diaz Chloride [Moles/Vol] 104 mmol/L Normal 98-107 [facility] Comment on above: Performed By: #### CMP ####[facility] ital Gndilpivzp0441 [place] [address]Dr. Yuki Diaz CO2 [Moles/Vol] 32.7 mmol/L Critically high 21.0-32.0 [facility] Comment on above: Performed By: #### CMP ####[facility] Uaraarnlrl723[address] [place], [place] [address]Dr. Yuki Diaz Creatinine [Mass/Vol] 2.43 mg/dL Critically high 0.70-1.30 [facility] Comment on above: Performed By: #### CMP ####[facility] Btkovtwgqk126[address] [place], [place] [address]Dr. Yuki Diaz EGFR-AF LEBANESE 31 mL/min/1.73m2 Critically low >=60 [facility] Comment on above: Performed By: #### CMP ####[facility] Evivclxyra417[address] [place], [place] [address]Dr. Yuki Diaz EGFR-NON AF LEBANESE 26 mL/min/1.73m2 Critically low >=60 [facility] Comment on above: Performed By: #### CMP ####[facility] ital Agryrvxagw3557 [place] [address]Dr. Yuki Diaz Globulin (S) [Mass/Vol] 3.4 g/dL Normal [facility] Comment on above: Performed By: #### CMP ####[facility] Adfkqeeilf9[address] [place], [place] [address]Dr. Yuki Diaz Glucose [Mass/Vol] 155 mg/dL Critically high 74-106 [facility] Comment on above: Performed By: #### CMP ####[facility] ital Tjxntjgind[address] [place], [place] [address]Dr. Yuki Diaz Potassium [Moles/Vol] 4.2 mmol/L Normal 3.5-5.1 [facility] Comment on above: Performed By: #### CMP ####[facility] ital Vashyouxic5220 [place] [address]Dr. Yuki Diaz Protein [Mass/Vol] 6.4 g/dL Normal 6.4-8.2 [facility] Comment on above: Performed By: #### CMP ####[facility] ital Oiuphphoyq3881 [place] [address]Dr. Yuki Diaz Sodium [Moles/Vol] 141 mmol/L Normal 136-145 [facility] Comment on above: Performed By: #### CMP ####[facility] ital Uljutwfuvv1173 [place] [address]Dr. Yuki Diaz Urea nitrogen [Mass/Vol] 47.0 mg/dL Critically high 7.0-18.0 [facility] Comment on above: Performed By: #### CMP ####[facility] ital Mggkbtaxhq8688 [place] [address]Dr. Yuki Diaz Urea nitrogen/Creatin ine [Mass ratio] 19.3 mg/mg Normal [facility] Comment on above: Performed By: #### CMP ####[facility] Mudpvlpaml8515 [place] [address]DrBebo Diaz PROF 14(COMP METB)on 022 Albumin [Mass/Vol] 2.9 g/dL Critically low 3.4-5.0 [facility] Comment on above: Performed By: #### CMP ####[facility] ital Lvrnrhvyem5526 [place] [address]Dr. Yuki Diaz Albumin/Globulin [Mass ratio] 0.8 {ratio} Normal [facility] Comment on above: Performed By: #### CMP ####[facility] ital Astpaihbql4240 [place] [address]Dr. Yuki Diaz ALP [Catalytic activity/Vol] 86 U/L Normal 46-116 [facility] Comment on above: Performed By: #### CMP ####[facility] ital Hxrbznsptw8732 [place] [address]Dr. Yuki Diaz ALT [Catalytic activity/Vol] 27 U/L Normal 16-63 [facility] Comment on above: Performed By: #### CMP ####[facility] ital Swlyweafsg2198 [place] [address]Dr. Yuki Diaz Anion gap [Moles/Vol] 11.5 mmol/L Normal [facility] Comment on above: Performed By: #### CMP ####[facility] ital Hrvomwixqy1193 [place] [address]Dr. Yuki Diaz AST [Catalytic activity/Vol] 10 U/L Critically low 15-37 [facility] Comment on above: Performed By: #### CMP ####[facility] ital Bjslzevjpx3887 [place] [address]Dr. Yuki Diaz Bilirubin [Mass/Vol] 0.5 mg/dL Normal 0.2-1.0 [facility] Comment on above: Performed By: #### CMP ####[facility] ital Ylqzbhqizi7922 [place] [address]Dr. Yuki Diaz Calcium [Mass/Vol] 8.6 mg/dL Normal 8.5-10.1 [facility] Comment on above: Performed By: #### CMP ####[facility] ital Ncwiyaebzc5847 [place] [address]Dr. Yuki Diaz Chloride [Moles/Vol] 108 mmol/L Critically high 98-107 [facility] Comment on above: Performed By: #### CMP ####[facility] ital Unrmzrgxte7044 [place] [address]Dr. Yuki Diaz CO2 [Moles/Vol] 28.0 mmol/L Normal 21.0-32.0 [facility] Comment on above: Performed By: #### CMP ####[facility] ital Zofpzdecfy4458 [place] [address]Dr. Yuki Diaz Creatinine [Mass/Vol] 2.58 mg/dL Critically high 0.70-1.30 [facility] Comment on above: Performed By: #### CMP ####[facility] ital Awxjxskqwh9163 [place] [address]Dr. Yuki Diaz EGFR-AF LEBANESE 29 mL/min/1.73m2 Critically low >=60 [facility] Comment on above: Performed By: #### CMP ####[facility] ital Thdshnmjrc1755 [place] [id number]. Yuki Joe EGFR-NON AF LEBANESE 24 mL/min/1.73m2 Critically low >=60 [facility] Comment on above: Performed By: #### CMP ####[facility] Wlixpzmhva1685 [place] [id number]. Yuki Joe Globulin (S) [Mass/Vol] 3.5 g/dL Normal [facility] Comment on above: Performed By: #### CMP ####[facility] ital Rhdxjsumey1188 [place] [address]Dr. Yuki Joe Glucose [Mass/Vol] 136 mg/dL Critically high 74-106 [facility] Comment on above: Performed By: #### CMP ####[facility] ital Ntmbmkukme3566 [place] [address]Dr. Yuki Joe Potassium [Moles/Vol] 4.5 mmol/L Normal 3.5-5.1 [facility] Comment on above: Performed By: #### CMP ####[facility] ital Yaxtjwqmfq3459 [place] [address]Dr. Yuki Joe Protein [Mass/Vol] 6.4 g/dL Normal 6.4-8.2 [facility] Comment on above: Performed By: #### CMP ####[facility] Owpldoifrz9082 [place] [address]Dr. Yuki Joe Sodium [Moles/Vol] 143 mmol/L Normal 136-145 [facility] Comment on above: Performed By: #### CMP ####[facility] Orsdvzpxgl2262 [place] [address]Dr. Monsealyssa Joe Urea nitrogen [Mass/Vol] 48.0 mg/dL Critically high 7.0-18.0 [facility] Comment on above: Performed By: #### CMP ####[facility] ital Vmihjaiozs1009 [place] [address]Dr. Yuki Diaz Urea nitrogen/Creatin ine [Mass ratio] 18.6 mg/mg Normal [facility] Comment on above: Performed By: #### CMP ####[facility] ital Relbllabvb5462 [place] [address]DrBebo Diaz PROF 14(COMP METB)on 022 Albumin [Mass/Vol] 3.2 g/dL Critically low 3.4-5.0 [facility] Comment on above: Performed By: #### CMP ####[facility] ital Vdxosddxdq7749 [place] [address]Dr. Yuki Diaz Albumin/Globulin [Mass ratio] 0.9 {ratio} Normal [facility] Comment on above: Performed By: #### CMP ####[facility] ital Bbhhwqprza917[address] [place], [place] [address]Dr. Yuki Diaz ALP [Catalytic activity/Vol] 89 U/L Normal 46-116 [facility] Comment on above: Performed By: #### CMP ####[facility] ital Nssxnkztzf6038 [place] [address]Dr. Yuki Diaz ALT [Catalytic activity/Vol] 113 U/L Critically high 16-63 [facility] Comment on above: Performed By: #### CMP ####[facility] Cstqmjackt[address] [place], [place] [address]Dr. Yuki Diaz Anion gap [Moles/Vol] 10.8 mmol/L Normal [facility] Comment on above: Performed By: #### CMP ####[facility] ital Ufuhscuuih[address] [place], [place] [address]Dr. Yuki Diaz AST [Catalytic activity/Vol] 32 U/L Normal 15-37 [facility] Comment on above: Performed By: #### CMP ####[facility] ital Fgstipvatw5818[address] [place], [place] [address]Dr. Yuki Diaz Bilirubin [Mass/Vol] 0.7 mg/dL Normal 0.2-1.0 [facility] Comment on above: Performed By: #### CMP ####[facility] ital Iylznmfpik2427[address] [place], [place] [address]Dr. Yuki Diaz Calcium [Mass/Vol] 8.8 mg/dL Normal 8.5-10.1 [facility] Comment on above: Performed By: #### CMP ####[facility] ital Kwynkckjob8396 [place] [address]Dr. Monsealyssa Joe Chloride [Moles/Vol] 106 mmol/L Normal 98-107 [facility] Comment on above: Performed By: #### CMP ####[facility] ital Kakyrfmzfb5137 [place] [address]Dr. Monsealyssa Joe CO2 [Moles/Vol] 30.4 mmol/L Normal 21.0-32.0 [facility] Comment on above: Performed By: #### CMP ####[facility] Hnmksmuuyq136[address] [place], [place] [address]Dr. Yuki Diaz Creatinine [Mass/Vol] 2.54 mg/dL Critically high 0.70-1.30 [facility] Comment on above: Performed By: #### CMP ####[facility] Wxsamibgsa53[address] [place], [place] [address]Dr. Yuki Diaz EGFR-AF LEBANESE 30 mL/min/1.73m2 Critically low >=60 [facility] Comment on above: Performed By: #### CMP ####[facility] Gkiuetsmwy[address] [place], [place] [address]Dr. Yuki Diaz EGFR-NON AF LEBANESE 25 mL/min/1.73m2 Critically low >=60 [facility] Comment on above: Performed By: #### CMP ####[facility] Vxcymmovbk7858 [place] [address]Dr. Yuki Diaz Globulin (S) [Mass/Vol] 3.4 g/dL Normal [facility] Comment on above: Performed By: #### CMP ####[facility] Dbovclkfac478[address] [place], [place] [address]Dr. Yuki Diaz Glucose [Mass/Vol] 114 mg/dL Critically high 74-106 [facility] Comment on above: Performed By: #### CMP ####[facility] Gmrrqjogoa[address] [place], [place] [address]Dr. Yuki Diaz Potassium [Moles/Vol] 4.2 mmol/L Normal 3.5-5.1 [facility] Comment on above: Performed By: #### CMP ####[facility] ital Wswulnsxmr4697 [place] [address]Dr. Yuki Diaz Protein [Mass/Vol] 6.6 g/dL Normal 6.4-8.2 [facility] Comment on above: Performed By: #### CMP ####[facility] ital Stxdhoziwt8562 [place] [address]Dr. Yuki Diaz Sodium [Moles/Vol] 143 mmol/L Normal 136-145 [facility] Comment on above: Performed By: #### CMP ####[facility] ital Safycdzwvr7545 [place] [address]Dr. Yuki Diaz Urea nitrogen [Mass/Vol] 65.0 mg/dL Critically high 7.0-18.0 [facility] Comment on above: Performed By: #### CMP ####[facility] ital Fbghxjdwuu7750 [place] [address]Dr. Yuki Diaz Urea nitrogen/Creatin ine [Mass ratio] 25.6 mg/mg Normal [facility] Comment on above: Performed By: #### CMP ####[facility] Zhwjgffeor4326 [place] [address]Dr. Yuki Diaz XR HIP RT INJon 04-01-2022 XR HIP RT INJ Normal [facility] PROF 14(COMP METB)on 022 Albumin [Mass/Vol] 3.6 g/dL Normal 3.4-5.0 [facility] Comment on above: Performed By: #### CMP ####[facility] ital Zoyyutmtro8643 [place] [address]Dr. Yuki Diaz Albumin/Globulin [Mass ratio] 0.9 {ratio} Normal [facility] Comment on above: Performed By: #### CMP ####[facility] ital Okcnwrwpmn6572 [place] [address]Dr. Yuki Diaz ALP [Catalytic activity/Vol] 91 U/L Normal 46-116 [facility] Comment on above: Performed By: #### CMP ####[facility] ital Yowsbfytey0539 [place] [phone]. Yuki Diaz ALT [Catalytic activity/Vol] 19 U/L Normal 16-63 [facility] Comment on above: Performed By: #### CMP ####[facility] ital Geaqitdvjm3268 [place] [id number]. Yuki Diaz Anion gap [Moles/Vol] 12.3 mmol/L Normal [facility] Comment on above: Performed By: #### CMP ####[facility] ital Ohwshfcrtc4957 [place] [address]Dr. Yuki Diaz AST [Catalytic activity/Vol] 14 U/L Critically low 15-37 [facility] Comment on above: Performed By: #### CMP ####[facility] ital Ebsbmkdmym7531 [place] [address]Dr. Yuki Diaz Bilirubin [Mass/Vol] 0.7 mg/dL Normal 0.2-1.0 [facility] Comment on above: Performed By: #### CMP ####[facility] [facility] ital Bjmikqgvkm2184 [place] [address]Dr. Yuki Diaz Calcium [Mass/Vol] 8.9 mg/dL Normal 8.5-10.1 [facility] Comment on above: Performed By: #### CMP ####[facility] Jkelpapzji1221 [place] [address]Dr. Yuki Diaz Chloride [Moles/Vol] 102 mmol/L Normal 98-107 [facility] Comment on above: Performed By: #### CMP ####[facility] ital Woydvjsiea2436 [place] [address]Dr. Yuki Diaz CO2 [Moles/Vol] 30.4 mmol/L Normal 21.0-32.0 [facility] Comment on above: Performed By: #### CMP ####[facility] ital Liwoubwivc5925 [place] [address]Dr. Yuki Diaz Creatinine [Mass/Vol] 2.13 mg/dL Critically high 0.70-1.30 [facility] Comment on above: Performed By: #### CMP ####[facility] ital Apmrdsfoqs2120 [place] [id number]. Yuki Diaz EGFR-AF LEBANESE 37 mL/min/1.73m2 Critically low >=60 [facility] Comment on above: Performed By: #### CMP ####[facility] ital Kysfpepihv4982 [place] [phone]. Yuki Diaz EGFR-NON AF LEBANESE 30 mL/min/1.73m2 Critically low >=60 [facility] Comment on above: Performed By: #### CMP ####[facility] ital Kehyeplafs6421 [place] [phone]. Yuki Diaz Globulin (S) [Mass/Vol] 3.9 g/dL Normal [facility] Comment on above: Performed By: #### CMP ####[facility] ital Hlpztgpzme9919 [place] [address]Dr. Yuki Diaz Glucose [Mass/Vol] 146 mg/dL Critically high 74-106 [facility] Comment on above: Performed By: #### CMP ####[facility] ital Wifyojqmwl8481 [place] [address]Dr. Yuki Diaz Potassium [Moles/Vol] 3.7 mmol/L Normal 3.5-5.1 [facility] Comment on above: Performed By: #### CMP ####[facility] ital Isnkuvvlcw4763 [place] [address]Dr. Yuki Diaz Protein [Mass/Vol] 7.5 g/dL Normal 6.4-8.2 [facility] Comment on above: Performed By: #### CMP ####[facility] ital Ffcknvdmed4883 [place] [address]Dr. Yuki Diaz Sodium [Moles/Vol] 141 mmol/L Normal 136-145 [facility] Comment on above: Performed By: #### CMP ####[facility] ital Cvhrlerfcj3412 [place] [address]Dr. Yuki Diaz Urea nitrogen [Mass/Vol] 39.0 mg/dL Critically high 7.0-18.0 [facility] Comment on above: Performed By: #### CMP ####[facility] ital Czoqjvtjwc7108 [place] [address]Dr. Yuki Diaz Urea nitrogen/Creatin ine [Mass ratio] 18.3 mg/mg Normal [facility] Comment on above: Performed By: #### CMP ####[facility] ital Kyqhqzsttl5810 [place] [address]Dr. Yuki Diaz PROF 14(COMP METB)on 022 Albumin [Mass/Vol] 3.3 g/dL Critically low 3.4-5.0 [facility] Comment on above: Performed By: #### CMP ####[facility] ital Flsimhxcyu9058 [place] [address]Dr. Yuki Diaz Albumin/Globulin [Mass ratio] 0.9 {ratio} Normal [facility] Comment on above: Performed By: #### CMP ####[facility] Plzivcttmg[address] [place], [place] [address]Dr. Yuki Diaz ALP [Catalytic activity/Vol] 78 U/L Normal 46-116 [facility] Comment on above: Performed By: #### CMP ####[facility] Qwlfpnpuwv0252 [place] [address]Dr. Yuki Diaz ALT [Catalytic activity/Vol] 19 U/L Normal 16-63 [facility] Comment on above: Performed By: #### CMP ####[facility] Zxzydvoygb6941 [place] [address]Dr. Yuki Diaz Anion gap [Moles/Vol] 12.3 mmol/L Normal [facility] Comment on above: Performed By: #### CMP ####[facility] ital Dutmksxcbs[address] [place], [place] [address]Dr. Yuki Diaz AST [Catalytic activity/Vol] 13 U/L Critically low 15-37 [facility] Comment on above: Performed By: #### CMP ####[facility] ital Biianwmizy[address] [place], [place] [address]Dr. Yuki Diaz Bilirubin [Mass/Vol] 0.8 mg/dL Normal 0.2-1.0 [facility] Comment on above: Performed By: #### CMP ####[facility] ital Gfkqaqgthn7779 [place] [address]Dr. Yuki Diaz Calcium [Mass/Vol] 8.8 mg/dL Normal 8.5-10.1 [facility] Comment on above: Performed By: #### CMP ####[facility] ital Roipkthgou2129 [place] [address]Dr. Yuki Diaz Chloride [Moles/Vol] 105 mmol/L Normal 98-107 [facility] Comment on above: Performed By: #### CMP ####[facility] ital Eewlefkomk3077 [place] [address]Dr. Yuki Diaz Creatinine [Mass/Vol] 2.44 mg/dL Critically high 0.70-1.30 [facility] Comment on above: Performed By: #### CMP ####[facility] Eqppxhpicf4504 [place] [address]Dr. Yuki Diaz EGFR-AF LEBANESE 31 mL/min/1.73m2 Critically low >=60 [facility] Comment on above: Performed By: #### CMP ####[facility] Xqpqnghvfj3620 [place] [address]Dr. Yuki Diaz EGFR-NON AF LEBANESE 26 mL/min/1.73m2 Critically low >=60 [facility] Comment on above: Performed By: #### CMP ####[facility] Sognjxfymu5344 [place] [address]Dr. Yuki Diaz Globulin (S) [Mass/Vol] 3.7 g/dL Normal [facility] Comment on above: Performed By: #### CMP ####[facility] Dshqekqpdp1444 [place] [address]Dr. Yuki Diaz Glucose [Mass/Vol] 196 mg/dL Critically high 74-106 [facility] Comment on above: Performed By: #### CMP ####[facility] Ktdfedhrwt2842 [place] [address]Dr. Yuki Diaz Potassium [Moles/Vol] 4.6 mmol/L Normal 3.5-5.1 [facility] Comment on above: Performed By: #### CMP ####[facility] Uswqaawlao7765 [place] [address]Dr. Yuki Diaz Protein [Mass/Vol] 7.0 g/dL Normal 6.4-8.2 [facility] Comment on above: Performed By: #### CMP ####[facility] ital Hshfmjwqqy4233 [place] [address]Dr. Yuki Diaz Sodium [Moles/Vol] 144 mmol/L Normal 136-145 [facility] Comment on above: Performed By: #### CMP ####[facility] ital Afdblphhrc5261 [place] [address]Dr. Yuki Diaz Urea nitrogen [Mass/Vol] 44.0 mg/dL Critically high 7.0-18.0 [facility] Comment on above: Performed By: #### CMP ####[facility] ital Knbanslbfc7305 [place] [address]Dr. Yuki Diaz Urea nitrogen/Creatin ine [Mass ratio] 18.0 mg/mg Normal [facility] Comment on above: Performed By: #### CMP ####[facility] ital Twvhgrppfc7867 [place] [address]Dr. Yuki Diaz PROF 14(COMP METB)on 022 Albumin [Mass/Vol] 3.2 g/dL Critically low 3.4-5.0 [facility] Comment on above: Performed By: #### CMP ####[facility] Bvfbfuhrnl4244 [place] [address]Dr. Yuki Diaz Albumin/Globulin [Mass ratio] 0.9 {ratio} Normal [facility] Comment on above: Performed By: #### CMP ####[facility] ital Iwuiflqcim0626 [place] [address]Dr. Yuki Diaz ALP [Catalytic activity/Vol] 75 U/L Normal 46-116 [facility] Comment on above: Performed By: #### CMP ####[facility] ital Znjjscofsq7219 [place] [address]Dr. Yuki Diaz ALT [Catalytic activity/Vol] 14 U/L Critically low 16-63 [facility] Comment on above: Performed By: #### CMP ####[facility] ital Eijgfhacyz9210 [place] [address]Dr. Yuki Diaz Anion gap [Moles/Vol] 12.6 mmol/L Normal [facility] Comment on above: Performed By: #### CMP ####[facility] ital Donqlxkkei9566 [place] [address]Dr. Yuki Diaz AST [Catalytic activity/Vol] 9 U/L Critically low 15-37 [facility] Comment on above: Performed By: #### CMP ####[facility] ital Xpsjrukvyu6231 [place] [address]Dr. Yuki Diaz Bilirubin [Mass/Vol] 0.7 mg/dL Normal 0.2-1.0 [facility] Comment on above: Performed By: #### CMP ####[facility] Nvxxqogrgh[address] [place], [place] [address]Dr. Yuki Diaz Calcium [Mass/Vol] 8.6 mg/dL Normal 8.5-10.1 [facility] Comment on above: Performed By: #### CMP ####[facility] Ecpdkvkngq[address] [place], [place] [address]Dr. Yuki Diaz Chloride [Moles/Vol] 107 mmol/L Normal 98-107 [facility] Comment on above: Performed By: #### CMP ####[facility] Svozxuawmh[address] [place], [place] [address]Dr. Yuki Diaz CO2 [Moles/Vol] 28.3 mmol/L Normal 21.0-32.0 [facility] Comment on above: Performed By: #### CMP ####[facility] Ilihuenxyy0087 [place] [address]Dr. Yuki Diaz Creatinine [Mass/Vol] 2.52 mg/dL Critically high 0.70-1.30 [facility] Comment on above: Performed By: #### CMP ####[facility] Wzygbiwfqq[address] [place], [place] [address]Dr. Yuki Diaz EGFR-AF LEBANESE 30 mL/min/1.73m2 Critically low >=60 [facility] Comment on above: Performed By: #### CMP ####[facility] ital Ttdyitatrb3592 [place] [address]Dr. Yuki Diaz EGFR-NON AF LEBANESE 25 mL/min/1.73m2 Critically low >=60 [facility] Comment on above: Performed By: #### CMP ####[facility] ital Lpzdfjnpnu5261 [place] [address]Dr. Yuki Diaz Globulin (S) [Mass/Vol] 3.7 g/dL Normal [facility] Comment on above: Performed By: #### CMP ####[facility] ital Jwztvfhlwt2539 [place] [address]Dr. Yuki Diaz Glucose [Mass/Vol] 152 mg/dL Critically high 74-106 [facility] Comment on above: Performed By: #### CMP ####[facility] Svokwppolp9114 [place] [address]Dr. Yuki Diaz Potassium [Moles/Vol] 3.9 mmol/L Normal 3.5-5.1 [facility] Comment on above: Performed By: #### CMP ####[facility] Vzaouwrmnd9945 [place] [address]Dr. Yuki Diaz Protein [Mass/Vol] 6.9 g/dL Normal 6.4-8.2 [facility] Comment on above: Performed By: #### CMP ####[facility] Eyhwyrqpqq1601 [place] [address]Dr. Yuki Diaz Sodium [Moles/Vol] 144 mmol/L Normal 136-145 [facility] Comment on above: Performed By: #### CMP ####[facility] Ldxnbirkbt7047 [place] [address]Dr. Yuki Diaz Urea nitrogen [Mass/Vol] 50.0 mg/dL Critically high 7.0-18.0 [facility] Comment on above: Performed By: #### CMP ####[facility] Flxjicwuic2584 [place] [address]Dr. Yuki Diaz Urea nitrogen/Creatin ine [Mass ratio] 19.8 mg/mg Normal [facility] Comment on above: Performed By: #### CMP ####[facility] Yagklmliqk0149 [place] [address]Dr. Yuki Diaz PROF 14(COMP METB)on 022 Albumin [Mass/Vol] 3.1 g/dL Critically low 3.4-5.0 [facility] Comment on above: Performed By: #### CMP ####[facility] ital Fmwfhtqlyd1349 [place] [address]Dr. Yuki Diaz Albumin/Globulin [Mass ratio] 0.7 {ratio} Normal [facility] Comment on above: Performed By: #### CMP ####[facility] ital Makxhzkdud5230 [place] [address]Dr. Yuki Diaz ALP [Catalytic activity/Vol] 101 U/L Normal 46-116 [facility] Comment on above: Performed By: #### CMP ####[facility] ital Xzrocrgxmp8279 [place] [address]Dr. Yuki Diaz ALT [Catalytic activity/Vol] 18 U/L Normal 16-63 [facility] Comment on above: Performed By: #### CMP ####[facility] ital Oocervnunl6657 [place] [address]Dr. Yuki Diaz Anion gap [Moles/Vol] 11.9 mmol/L Normal [facility] Comment on above: Performed By: #### CMP ####[facility] ital Ftpxzmhmvb5295 [place] [address]Dr. Yuki Diaz AST [Catalytic activity/Vol] 11 U/L Critically low 15-37 [facility] Comment on above: Performed By: #### CMP ####[facility] ital Anmsctpkai6365 [place] [address]Dr. Yuki Diaz Bilirubin [Mass/Vol] 0.5 mg/dL Normal 0.2-1.0 [facility] Comment on above: Performed By: #### CMP ####[facility] ital Upkglketql8352 [place] [address]Dr. Yuki Diaz Calcium [Mass/Vol] 9.0 mg/dL Normal 8.5-10.1 [facility] Comment on above: Performed By: #### CMP ####[facility] ital Vstspkmkfg8317 [place] [address]Dr. Yuki Diaz Chloride [Moles/Vol] 103 mmol/L Normal 98-107 [facility] Comment on above: Performed By: #### CMP ####[facility] ital Buzsunegde0798 [place] [address]Dr. Yuki Diaz CO2 [Moles/Vol] 29.8 mmol/L Normal 21.0-32.0 [facility] Comment on above: Performed By: #### CMP ####[facility] ital Cqlzkyydrk4538 [place] [address]Dr. Yuki Diaz Creatinine [Mass/Vol] 3.03 mg/dL Critically high 0.70-1.30 [facility] Comment on above: Performed By: #### CMP ####[facility] ital Cmrksobext3580 [place] [address]Dr. Yuki Diaz EGFR-AF LEBANESE 24 mL/min/1.73m2 Critically low >=60 [facility] Comment on above: Performed By: #### CMP ####[facility] Kgsmzbfdov[address] [place], [place] [address]Dr. Yuki Diaz EGFR-NON AF LEBANESE 20 mL/min/1.73m2 Critically low >=60 [facility] Comment on above: Performed By: #### CMP ####[facility] Qroywimpnt6132 [place] [address]Dr. Yuki Diaz Globulin (S) [Mass/Vol] 4.4 g/dL Normal [facility] Comment on above: Performed By: #### CMP ####[facility] ital Rukvrybjmw0784 [place] [address]Dr. Yuki Diaz Glucose [Mass/Vol] 260 mg/dL Critically high 74-106 [facility] Comment on above: Performed By: #### CMP ####[facility] Fizojctage0901 [place] [address]Dr. Yuki Diaz Potassium [Moles/Vol] 4.7 mmol/L Normal 3.5-5.1 [facility] Comment on above: Performed By: #### CMP ####[facility] ital Ywkuyktwbb8105 [place] [address]Dr. Yuki Diaz Protein [Mass/Vol] 7.5 g/dL Normal 6.4-8.2 [facility] Comment on above: Performed By: #### CMP ####[facility] ital Vummlwqcrm3189 [place] [address]Dr. Yuki Diaz Sodium [Moles/Vol] 140 mmol/L Normal 136-145 [facility] Comment on above: Performed By: #### CMP ####[facility] ital Zqtxdnnweb3877 [place] [address]Dr. Yuki Diaz Urea nitrogen [Mass/Vol] 50.0 mg/dL Critically high 7.0-18.0 [facility] Comment on above: Performed By: #### CMP ####[facility] ital Gesgmcynet4260 [place] [address]Dr. Yuki Diaz Urea nitrogen/Creatin ine [Mass ratio] 16.5 mg/mg Normal [facility] Comment on above: Performed By: #### CMP ####[facility] ital Qyjlztqvle2414 [place] [address]Dr. Yuki Diaz Screenson 02-18-2022 Screens [id number] Normal [facility] Ambulatory Visit Summaryon 0 02-15-2022 Ambulatory Visit Summary SHENG BAUER :1940 Visit Date:02/15/2022 Ambulatory Visit Instructions Your Diagnosis Elevated PSA BPH associated with nocturia Nocturia Tests Performed Urnls Dip Stick Auto w/o Microscopy POC 94096 Your Care Team Attending Physician - Evan Ochoa MD, César Vega Primary Care Physician - Derrick Lopez MD [...] Appointments Monday 10:30 AM EST With: César Grodon Jr., MD Where: [facility] Patient Educationon 02-16-20 Patient Education [...] including vitamins, herbs, eye drops, creams, and omlq-twg-qcoddgy medicines. This also includes: ? Medicines to [...] 08/26/2005 Document Revised: 07/06/2018 Document Reviewed: 04/30/2018 Else[employer] Patient Education ? 2019 [employer]. [facility] Urology Office/Clinic Noteon 02-15-2022 Urology Office/Clinic [...] Urnls Dip Stick Auto w/o Microscopy POC 52529 2. BPH associated with nocturia (N40.1: Benign [...] In 6 months [facility] [address], [place] [address]- Additional Instructions: w/ psa Patient Education Prostate-Specific Antigen Test I, Gretel Bhagat, personally scribed for Dr. Gordon on 02/15/2022 [...] so unsure (more content not included)... Normal [facility] Comment on above: Result Comment: Electronically Signed By : César Gordon Jr., MD\.br\Date and Time Signed: 02/15/22 10:42 EDT\.br\Electronically Co-Signed By: Gretel Bhagat\.br\Date and Time Co-Signed: 02/15/22 10:35 EDT PROF 14(COMP METB)on 022 Albumin [Mass/Vol] 3.3 g/dL Critically low 3.4-5.0 [facility] Comment on above: Performed By: #### CMP ####[facility] ital Ryzidshxal7028 [place] [address]Dr. Monsealyssa Joe Albumin/Globulin [Mass ratio] 0.8 {ratio} Normal [facility] Comment on above: Performed By: #### CMP ####[facility] ital Cuoinsnoue6928 [place] [address]Dr. Yuki Diaz ALP [Catalytic activity/Vol] 111 U/L Normal 46-116 [facility] Comment on above: Performed By: #### CMP ####[facility] ital Krkssohozm4710 [place] [address]Dr. Monsealyssa Diaz ALT [Catalytic activity/Vol] 22 U/L Normal 16-63 [facility] Comment on above: Performed By: #### CMP ####[facility] ital Ahwoqpvvxh0164 [place] [address]Dr. Yuki Diaz Anion gap [Moles/Vol] 9.0 mmol/L Normal [facility] Comment on above: Performed By: #### CMP ####[facility] ital Kbrpfbpenx[address] [place], [place] [address]Dr. Yuki Diaz AST [Catalytic activity/Vol] 10 U/L Critically low 15-37 [facility] Comment on above: Performed By: #### CMP ####[facility] ital Jratudaejy7946 [place] [address]Dr. Yuki Diaz Bilirubin [Mass/Vol] 1.0 mg/dL Normal 0.2-1.0 [facility] Comment on above: Performed By: #### CMP ####[facility] ital Pkjigqmmxq5070 [place] [address]Dr. Yuki Diaz Calcium [Mass/Vol] 9.1 mg/dL Normal 8.5-10.1 [facility] Comment on above: Performed By: #### CMP ####[facility] ital Qsporedsdb1922 [place] [id number]. Yuki Diaz Chloride [Moles/Vol] 103 mmol/L Normal 98-107 [facility] Comment on above: Performed By: #### CMP ####[facility] ital Djpgoblnox0692 [place] [address]Dr. Yuki Diaz CO2 [Moles/Vol] 32.8 mmol/L Critically high 21.0-32.0 [facility] Comment on above: Performed By: #### CMP ####[facility] Awzeopskay9047 [place] [address]Dr. Yuki Diaz Creatinine [Mass/Vol] 2.55 mg/dL Critically high 0.70-1.30 [facility] Comment on above: Performed By: #### CMP ####[facility] Ofxrkgfqhh6986 [place] [address]Dr. Yuki Diaz EGFR-AF LEBANESE 30 mL/min/1.73m2 Critically low >=60 [facility] Comment on above: Performed By: #### CMP ####[facility] Vtlxugfmyb5969 [place] [address]Dr. Yuki Diaz EGFR-NON AF LEBANESE 24 mL/min/1.73m2 Critically low >=60 [facility] Comment on above: Performed By: #### CMP ####[facility] Gclscydkvz7577 [place] [address]Dr. Yuki Diaz Globulin (S) [Mass/Vol] 4.0 g/dL Normal [facility] Comment on above: Performed By: #### CMP ####[facility] Eguzkolfcw3834 [place] [address]Dr. Yuki Diaz Glucose [Mass/Vol] 154 mg/dL Critically high 74-106 [facility] Comment on above: Performed By: #### CMP ####[facility] Lfiawazbxe7755 [place] [address]Dr. Yuki Diaz Potassium [Moles/Vol] 3.8 mmol/L Normal 3.5-5.1 [facility] Comment on above: Performed By: #### CMP ####[facility] Fdrjqlahll8869 [place] [id number]. Yuki Diaz Protein [Mass/Vol] 7.3 g/dL Normal 6.4-8.2 [facility] Comment on above: Performed By: #### CMP ####[facility] ital Dptveikczh0988 [place] [address]Dr. Yuki Diaz Sodium [Moles/Vol] 141 mmol/L Normal 136-145 [facility] Comment on above: Performed By: #### CMP ####[facility] ital Bezxyctseu7854 [place] [address]Dr. Yuki Diaz Urea nitrogen [Mass/Vol] 35.0 mg/dL Critically high 7.0-18.0 [facility] Comment on above: Performed By: #### CMP ####[facility] Pgncexkzca3857 [place] [address]Dr. Yuki Diaz Urea nitrogen/Creatin ine [Mass ratio] 13.7 mg/mg Normal [facility] Comment on above: Performed By: #### CMP ####[facility] Vgikbbjuma5820 [place] [address]Dr. Yuki Diaz PROF 14(COMP METB)on 022 Albumin [Mass/Vol] 2.9 g/dL Critically low 3.4-5.0 [facility] Comment on above: Performed By: #### CMP ####[facility] Hlewzthcfl2817 [place] [address]Dr. Yuki Diaz Albumin/Globulin [Mass ratio] 0.8 {ratio} Normal [facility] Comment on above: Performed By: #### CMP ####[facility] Liklfhiqrv3276 [place] [address]Dr. Yuki Diaz ALP [Catalytic activity/Vol] 96 U/L Normal 46-116 [facility] Comment on above: Performed By: #### CMP ####[facility] Tyfqcbrbuj9465 [place] [address]Dr. Yuki Diaz ALT [Catalytic activity/Vol] 23 U/L Normal 16-63 [facility] Comment on above: Performed By: #### CMP ####[facility] ital Jbktzfacon3993 [place] [id number]. Yuki Diaz Anion gap [Moles/Vol] 11.6 mmol/L Normal [facility] Comment on above: Performed By: #### CMP ####[facility] ital Kxwjgapdag2880 [place] [id number]. Yuki Diaz AST [Catalytic activity/Vol] 12 U/L Critically low 15-37 [facility] Comment on above: Performed By: #### CMP ####[facility] ital Ezhcjxqtck6909 [place] [phone]. Yuki Diaz Bilirubin [Mass/Vol] 0.7 mg/dL Normal 0.2-1.0 [facility] Comment on above: Performed By: #### CMP ####[facility] Juscpzkgah0432 [place] [address]Dr. Yuki Diaz Calcium [Mass/Vol] 8.7 mg/dL Normal 8.5-10.1 [facility] Comment on above: Performed By: #### CMP ####[facility] Auzybbitwn1478 [place] [address]Dr. Yuki Diaz Chloride [Moles/Vol] 103 mmol/L Normal 98-107 [facility] Comment on above: Performed By: #### CMP ####[facility] Xjpyzwzpiq3797 [place] [id number]. Yuki Diaz CO2 [Moles/Vol] 32.5 mmol/L Critically high 21.0-32.0 [facility] Comment on above: Performed By: #### CMP ####[facility] Yhwdztftsy8336 [place] [id number]. Yuki Diaz Creatinine [Mass/Vol] 2.35 mg/dL Critically high 0.70-1.30 [facility] Comment on above: Performed By: #### CMP ####[facility] Vvrywcsnmr1006 [place] [address]Dr. Yuki Diaz EGFR-AF LEBANESE 33 mL/min/1.73m2 Critically low >=60 [facility] Comment on above: Performed By: #### CMP ####[facility] ital Onwluhudbw3928 [place] [id number]. Yuki Diaz EGFR-NON AF LEBANESE 27 mL/min/1.73m2 Critically low >=60 [facility] Comment on above: Performed By: #### CMP ####[facility] ital Shbvncjynz[address] [place] [id number]. Yuki Diaz Globulin (S) [Mass/Vol] 3.6 g/dL Normal [facility] Comment on above: Performed By: #### CMP ####[facility] ital Ccsjopqimt8802 [place] [phone]. Yuki Diaz Glucose [Mass/Vol] 206 mg/dL Critically high 74-106 [facility] Comment on above: Performed By: #### CMP ####[facility] Mdryhsjhbg26[address] [place] [phone]. Yuki Diaz Potassium [Moles/Vol] 4.1 mmol/L Normal 3.5-5.1 [facility] Comment on above: Performed By: #### CMP ####[facility] Sfzqrmojfu8298 [place] [phone]. Yuki Diaz Protein [Mass/Vol] 6.5 g/dL Normal 6.4-8.2 [facility] Comment on above: Performed By: #### CMP ####[facility] Wccbnpofrd8873 [place] [phone]. Yuki Diaz Sodium [Moles/Vol] 143 mmol/L Normal 136-145 [facility] Comment on above: Performed By: #### CMP ####[facility] ital Dvajlzhfqp1856 [place] [phone]. Yuki Diaz Urea nitrogen [Mass/Vol] 34.0 mg/dL Critically high 7.0-18.0 [facility] Comment on above: Performed By: #### CMP ####[facility] ital Owblmzjemc8678 [place] [phone]. Yuki Diaz Urea nitrogen/Creatin ine [Mass ratio] 14.5 mg/mg Normal [facility] Comment on above: Performed By: #### CMP ####[facility] ital Plfcrxbugy[address] [place] [address]Dr. Yuki Diaz BNPon 02-03-2022 Natriuretic peptide B (Bld) [Mass/Vol] 3216.0 pg/mL Critically high <=1,800.0 [facility] Comment on above: Result Comment: repeated Performed By: #### B [employer] ####[facility] Npopxnnibo[address] [place] [address]Dr. Yuki Diaz PROF 14(COMP METB)on 022 Albumin [Mass/Vol] 3.0 g/dL Critically low 3.4-5.0 [facility] Comment on above: Performed By: #### CMP ####[facility] ital Yeptfxnqkk[address] [place], [place] [address]Dr. Yuki Diaz Albumin/Globulin [Mass ratio] 0.8 {ratio} Normal [facility] Comment on above: Performed By: #### CMP ####[facility] Jtddjzijvg[address] [place], [place] [address]Dr. Yuki Diaz ALP [Catalytic activity/Vol] 104 U/L Normal 46-116 [facility] Comment on above: Performed By: #### CMP ####[facility] Oipetldyuf[address] [place], [place] [address]Dr. Yuki Diaz ALT [Catalytic activity/Vol] 32 U/L Normal 16-63 [facility] Comment on above: Performed By: #### CMP ####[facility] Laxssdanew[address] [place] [address]Dr. Yuki Diaz Anion gap [Moles/Vol] 9.3 mmol/L Normal [facility] Comment on above: Performed By: #### CMP ####[facility] ital Lqtijnteqz9[address] [place], [place] [address]Dr. Yuki Diaz AST [Catalytic activity/Vol] 15 U/L Normal 15-37 [facility] Comment on above: Performed By: #### CMP ####[facility] ital Fulmpnajxy67[address] [place], [place] [address]Dr. Yuki Diaz Bilirubin [Mass/Vol] 0.9 mg/dL Normal 0.2-1.0 [facility] Comment on above: Performed By: #### CMP ####[facility] ital Vpsqcbqfrk0618 [place] [address]Dr. Yuki Diaz Calcium [Mass/Vol] 8.6 mg/dL Normal 8.5-10.1 [facility] Comment on above: Performed By: #### CMP ####[facility] ital Hhghtnladm5546 [place] [address]Dr. Yuki Diaz Chloride [Moles/Vol] 104 mmol/L Normal 98-107 [facility] Comment on above: Performed By: #### CMP ####[facility] ital Omkrbhbwht2952 [place] [address]Dr. Yuki Diaz CO2 [Moles/Vol] 35.9 mmol/L Critically high 21.0-32.0 [facility] Comment on above: Performed By: #### CMP ####[facility] ital Tgwmntnbol9072 [place] [address]Dr. Yuki Diaz Creatinine [Mass/Vol] 1.98 mg/dL Critically high 0.70-1.30 [facility] Comment on above: Performed By: #### CMP ####[facility] ital Xxlywthzlr4930 [place] [address]Dr. Yuki Diaz EGFR-AF LEBANESE 40 mL/min/1.73m2 Critically low >=60 [facility] Comment on above: Performed By: #### CMP ####[facility] ital Cshyisdosc80[address] [place] [address]Dr. Yuki Joe EGFR-NON AF LEBANESE 33 mL/min/1.73m2 Critically low >=60 [facility] Comment on above: Performed By: #### CMP ####[facility] ital Ezxomdsfry4620 [place] [address]Dr. Yuki Diaz Globulin (S) [Mass/Vol] 3.9 g/dL Normal [facility] Comment on above: Performed By: #### CMP ####[facility] ital Utuujyasic2889 [place] [address]Dr. Monsealyssa Diaz Glucose [Mass/Vol] 124 mg/dL Critically high 74-106 [facility] Comment on above: Performed By: #### CMP ####[facility] ital Iphskmvzag1469 [place] [address]Dr. Yuki Diaz Potassium [Moles/Vol] 4.2 mmol/L Normal 3.5-5.1 [facility] Comment on above: Performed By: #### CMP ####[facility] ital Ekggsswbvu4111 [place] [address]Dr. Yuki Diaz Protein [Mass/Vol] 6.9 g/dL Normal 6.4-8.2 [facility] Comment on above: Performed By: #### CMP ####[facility] ital Gjdjzrmjpm7088 [place] [address]Dr. Yuki Diaz Sodium [Moles/Vol] 145 mmol/L Normal 136-145 [facility] Comment on above: Performed By: #### CMP ####[facility] ital Tuwahtqcpz647[address] [place], [place] [address]Dr. Monsealyssa Diaz Urea nitrogen [Mass/Vol] 27.0 mg/dL Critically high 7.0-18.0 [facility] Comment on above: Performed By: #### CMP ####[facility] Qndwahraan[address] [place], [place] [address]Dr. Yuki Diaz Urea nitrogen/Creatin ine [Mass ratio] 13.6 mg/mg Normal [facility] Comment on above: Performed By: #### CMP ####[facility] Cxcyxlijcv1666 [place] [address]Dr. Yuki Diaz BNPon 01-27-2022 Natriuretic peptide B (Bld) [Mass/Vol] 2090.0 pg/mL Critically high <=1,800.0 [facility] Comment on above: Performed By: #### CMP, BNP ####[facility] Yftjmqkncn[address] [place], [place] [address]Dr. Yuki Diaz CBC AUTO DIFFon 01-27-2022 BASO # 0.0 103/ul Normal 0.0-0.1 [facility] Comment on above: Performed By: #### CBC ####[facility] ital Edqgeaespl13[address] [place], [place] [address]Dr. Yuki Diaz Basophils/100 WBC (Bld) 0.2 % Normal 0.2-2.0 [facility] Comment on above: Performed By: #### CBC ####[facility] Lcjqxpelkx4267 [place] [address]Dr. Yuki Diaz EO # 0.2 103/ul Normal 0.0-0.7 [facility] Comment on above: Performed By: #### CBC ####[facility] Ilrpmistfp387[address] [place], [place] [address]Dr. Yuki Diaz Eosinophils/100 WBC (Bld) 1.8 % Normal 0.9-7.0 [facility] Comment on above: Performed By: #### CBC ####[facility] Ftryfomoet[address] [place] [address]. Yuki Diaz Erythrocyte distribution width (RBC) [Ratio] 13.4 % Normal 11.0-15.0 [facility] Comment on above: Performed By: #### CBC ####[facility] Gztmmoaimc[address] [place] [address]. Yuki Diaz Hematocrit (Bld) [Volume fraction] 32.6 % Critically low 42.0-54.0 [facility] Comment on above: Performed By: #### CBC ####[facility] Wvqthigsiu[address] [place], [place] [address]Dr. Yuki Diaz Hemoglobin (Bld) [Mass/Vol] 10.4 g/dL Critically low 14.0-18.0 [facility] Comment on above: Performed By: #### CBC ####[facility] Gebqasambi[address] [place] [address]. Yuki Diaz IG # 0.03 10e3/ul Normal 0.00-0.03 [facility] Comment on above: Performed By: #### CBC ####[facility] Sahlsyfqoa[address] [place], [place] [address]Dr. Yuki Diaz IG % 0.3 % Normal 0.0-0.5 [facility] Comment on above: Performed By: #### CBC ####[facility] Fohbtijkno13[address] [place] [address]Dr. Yuki Diaz LYMPH # 1.2 103/ul Normal 1.2-3.8 [facility] Comment on above: Performed By: #### CBC ####[facility] ital Gzzcrqaqmm3023 [place] [address]Dr. Monsealyssa Diaz Lymphocytes/100 WBC (Bld) 13.8 % Critically low 20.5-60.0 [facility] Comment on above: Performed By: #### CBC ####[facility] ital Rhsphgggve4127 [place] [address]Dr. Yuki Diaz MANUAL DIFF REQ NO Normal [facility] Comment on above: Performed By: #### CBC ####[facility] Ipvzxgaukx9[address] [place] [address]Dr. Yuki Joe MCH (RBC) [Entitic mass] 31.9 pg Normal 25.9-34.0 [facility] Comment on above: Performed By: #### CBC ####[facility] Ifwmjlxjaw4576 [place] [address]Dr. Yuki Joe MCHC (RBC) [Mass/Vol] 31.9 g/dL Normal 29.9-35.2 [facility] Comment on above: Performed By: #### CBC ####[facility] Sxiwppjtio9389 [place] [address]Dr. Yuki Diaz MCV (RBC) [Entitic vol] 100.0 fL Critically high 80.0-94.0 [facility] Comment on above: Performed By: #### CBC ####[facility] Jquwxvuwob9778 [place] [address]Dr. Yuki Diaz MONO # 0.9 103/ul Critically high 0.3-0.8 [facility] Comment on above: Performed By: #### CBC ####[facility] Nrnxahfuro5334 [place] [address]Dr. Yuki Diaz Monocytes/100 WBC (Bld) 10.1 % Normal 1.7-12.0 [facility] Comment on above: Performed By: #### CBC ####[facility] Bbxlkvlrpk[address] [place], [place] [id number]. Yuki Diaz NEUT # 6.6 103/ul Critically high 1.4-6.5 [facility] Comment on above: Performed By: #### CBC ####[facility] ital Dyzjklcpyg2916 [place] [address]Dr. Yuki Diaz Neutrophils/100 WBC (Bld) 73.8 % Normal 43.0-75.0 [facility] Comment on above: Performed By: #### CBC ####[facility] Xaseyoblgr7545 [place] [address]Dr. Yuki Diaz Platelet mean volume (Bld) [Entitic vol] 10.3 fL Normal 9.5-13.5 [facility] Comment on above: Performed By: #### CBC ####[facility] Oqzsmfxbbm9427 [place] [address]Dr. Yuki Diaz PLT 196 103/ul Normal 150-450 [facility] Comment on above: Performed By: #### CBC ####[facility] Nzgyrejtwd0878 [place] [address]Dr. Yuki Diaz RBC 3.26 106/ul Critically low 4.70-6.10 [facility] Comment on above: Performed By: #### CBC ####[facility] Tinicqdxgs8921 [place] [address]Dr. Yuki Diaz WBC 9.0 103/ul Normal 4.0-11.0 [facility] Comment on above: Performed By: #### CBC ####[facility] Xmpinjhibg6786 [place] [address]Dr. Yuki Diaz POINT OF CARE GLUCOSEon 06-2 -2021 Glucose [Mass/Vol] 120 mg/dL Critically high 74-106 [facility] Comment on above: Performed By: #### POCGLUC ####[facility] Kjsxmhaeaj9646 [place] [address]Dr. Yuki Joe Glucose [Mass/Vol] 155 mg/dL Critically high 74-106 [facility] Comment on above: Performed By: #### POCGLUC ####[facility] Ygnedfynrh[address] [place], [place] [address]Dr. Yuki Diaz PROF 14(COMP METB)on 022 Albumin [Mass/Vol] 2.8 g/dL Critically low 3.4-5.0 [facility] Comment on above: Performed By: #### CMP, BNP ####[facility] Xmaxgpqiit5561 [place] [address]Dr. Yuki Diaz Albumin/Globulin [Mass ratio] 0.8 {ratio} Normal [facility] Comment on above: Performed By: #### CMP, BNP ####[facility] Pzabjxmdbj2713 [place] [address]Dr. Yuki Diaz ALP [Catalytic activity/Vol] 96 U/L Normal 46-116 [facility] Comment on above: Performed By: #### CMP, BNP ####[facility] Tgilvmwmld7[address] [place], [place] [address]Dr. Yuki Diaz ALT [Catalytic activity/Vol] 27 U/L Normal 16-63 [facility] Comment on above: Performed By: #### CMP, BNP ####[facility] Kchxfsveus45[address] [place], [place] [address]Dr. Yuki Diaz Anion gap [Moles/Vol] 8.7 mmol/L Normal [facility] Comment on above: Performed By: #### CMP, BNP ####[facility] Wakqvyneqe37[address] [place], [place] [address]Dr. Yuki Diaz AST [Catalytic activity/Vol] 17 U/L Normal 15-37 [facility] Comment on above: Performed By: #### CMP, BNP ####[facility] Pnktjpissh[address] [place], [place] [address]Dr. Yuki Diaz Bilirubin [Mass/Vol] 0.8 mg/dL Normal 0.2-1.0 [facility] Comment on above: Performed By: #### CMP, BNP ####[facility] Ujyhmsminz8[address] [place], [place] [address]Dr. Yuki Diaz Calcium [Mass/Vol] 8.2 mg/dL Critically low 8.5-10.1 [facility] Comment on above: Performed By: #### CMP, BNP ####[facility] Zftaqgmndl4988 [place] [address]Dr. Yuki Diaz Chloride [Moles/Vol] 104 mmol/L Normal 98-107 [facility] Comment on above: Performed By: #### CMP, BNP ####[facility] Upclqnsocq44[address] [place], [place] [address]Dr. Yuki Diaz CO2 [Moles/Vol] 37.3 mmol/L Critically high 21.0-32.0 [facility] Comment on above: Performed By: #### CMP, BNP ####[facility] Sblrfdbnyo9[address] [place], [place] [address]Dr. Yuki Diaz Creatinine [Mass/Vol] 1.90 mg/dL Critically high 0.70-1.30 [facility] Comment on above: Performed By: #### CMP, BNP ####[facility] Zdiesuessq025[address] [place], [place] [address]Dr. Yuki Diaz EGFR-AF LEBANESE 42 mL/min/1.73m2 Critically low >=60 [facility] Comment on above: Performed By: #### CMP, BNP ####[facility] Vqoohdytyx9[address] [place], [place] [address]Dr. Yuki Diaz EGFR-NON AF LEBANESE 34 mL/min/1.73m2 Critically low >=60 [facility] Comment on above: Performed By: #### CMP, BNP ####[facility] Yjjjlqmfpg14[address] [place], [place] [address]Dr. Yuki Diaz Globulin (S) [Mass/Vol] 3.5 g/dL Normal [facility] Comment on above: Performed By: #### CMP, BNP ####[facility] Sjhoajwmub16[address] [place], [place] [address]Dr. Yuki Diaz Glucose [Mass/Vol] 44 mg/dL Critically low 74-106 [facility] Comment on above: Result Comment: Test Repeated. Critical Value Verified Performed By: #### C MP, BNP ####[facility] Ukhlqjewsh01[address] [place], [place] [address]Dr. Yuki Diaz Potassium [Moles/Vol] 3.0 mmol/L Critically low 3.5-5.1 [facility] Comment on above: Performed By: #### CMP, BNP ####[facility] Iadelyhcji406[address] [place], [place] [address]Dr. Yuki Diaz Protein [Mass/Vol] 6.3 g/dL Critically low 6.4-8.2 [facility] Comment on above: Performed By: #### CMP, BNP ####[facility] Qvomczadck9[address] [place], [place] [address]Dr. Yuki Diaz Sodium [Moles/Vol] 147 mmol/L Critically high 136-145 [facility] Comment on above: Performed By: #### CMP, BNP ####[facility] Oxjztwzyar[address] [place], [place] [address]Dr. Yuki Diaz Urea nitrogen [Mass/Vol] 33.0 mg/dL Critically high 7.0-18.0 [facility] Comment on above: Performed By: #### CMP, BNP ####[facility] Sbaqawpzft[address] [place], [place] [address]Dr. Yuki Diaz Urea nitrogen/Creatin ine [Mass ratio] 17.4 mg/mg Normal [facility] Comment on above: Performed By: #### CMP, BNP ####[facility] Ntxxddekml[address] [place], [place] [address]Dr. Yuki Joe BNPon 01-26-2022 Natriuretic peptide B (Bld) [Mass/Vol] 3997.0 pg/mL Critically high <=1,800.0 [facility] Comment on above: Performed By: #### BNP, CMP ####[facility] Oivslzieuz727[address] [place], [place] [address]Dr. Yuki Joe CBC AUTO DIFFon 01-26-2022 BASO # 0.0 103/ul Normal 0.0-0.1 [facility] Comment on above: Performed By: #### CBC ####[facility] Wxlbvchcoz[address] [place], [place] [address]Dr. Yuki Diaz Basophils/100 WBC (Bld) 0.2 % Normal 0.2-2.0 [facility] Comment on above: Performed By: #### CBC ####[facility] Jydskxpfhm64[address] [place], [place] [address]Dr. Yuki Diaz EO # 0.2 103/ul Normal 0.0-0.7 [facility] Comment on above: Performed By: #### CBC ####[facility] Xrfsexjflq9999 [place] [address]Dr. Yuki Diaz Eosinophils/100 WBC (Bld) 1.6 % Normal 0.9-7.0 [facility] Comment on above: Performed By: #### CBC ####[facility] Ibgqjcdaeg7196 [place] [address]Dr. Yuki Diaz Erythrocyte distribution width (RBC) [Ratio] 13.5 % Normal 11.0-15.0 [facility] Comment on above: Performed By: #### CBC ####[facility] Telhiwtsta[address] Yuki Diaz Hematocrit (Bld) [Volume fraction] 34.9 % Critically low 42.0-54.0 [facility] Comment on above: Performed By: #### CBC ####[facility] Tlportulzg[address] Yuki Diaz Hemoglobin (Bld) [Mass/Vol] 11.3 g/dL Critically low 14.0-18.0 [facility] Comment on above: Performed By: #### CBC ####[facility] Pownqhnfeo[address] Yuki Diaz IG # 0.03 10e3/ul Normal 0.00-0.03 [facility] Comment on above: Performed By: #### CBC ####[facility] Tpchxukbvi6053 [address] Yuki Diaz IG % 0.3 % Normal 0.0-0.5 [facility] Comment on above: Performed By: #### CBC ####[facility] Pdddbcydjm2281 [address] Yuki Diaz LYMPH # 1.5 103/ul Normal 1.2-3.8 [facility] Comment on above: Performed By: #### CBC ####[facility] [address]ig[address] [place] [address]. Yuki Diaz Lymphocytes/100 WBC (Bld) 15.1 % Critically low 20.5-60.0 [facility] Comment on above: Performed By: #### CBC ####[facility] ital Dqrszeplck7743 [place] [address]Dr. Yuki Diaz MANUAL DIFF REQ NO Normal [facility] Comment on above: Performed By: #### CBC ####[facility] Cinojhzbis9445 [place] [address]Dr. Yuki Diaz MCH (RBC) [Entitic mass] 32.2 pg Normal 25.9-34.0 [facility] Comment on above: Performed By: #### CBC ####[facility] Fhwuynqalr[address] Yuki Diaz MCHC (RBC) [Mass/Vol] 32.4 g/dL Normal 29.9-35.2 [facility] Comment on above: Performed By: #### CBC ####[facility] Agyjwwdrge4809 [place] [address]Dr. Yuki Diaz MCV (RBC) [Entitic vol] 99.4 fL Critically high 80.0-94.0 [facility] Comment on above: Performed By: #### CBC ####[facility] Berjbnkpcf[address] [place], [place] [address]Dr. Yuki Diaz MONO # 1.1 103/ul Critically high 0.3-0.8 [facility] Comment on above: Performed By: #### CBC ####[facility] Rhqmyysiwv5692 [place] [address]Dr. Yuki Diaz Monocytes/100 WBC (Bld) 10.7 % Normal 1.7-12.0 [facility] Comment on above: Performed By: #### CBC ####[facility] Ydudchrvfh69[address] [place], [place] [address]Dr. Yuki Diaz NEUT # 7.3 103/ul Critically high 1.4-6.5 [facility] Comment on above: Performed By: #### CBC ####[facility] Bskumwrkey84[address] [place], [place] [address]Dr. Yuki Diaz Neutrophils/100 WBC (Bld) 72.1 % Normal 43.0-75.0 [facility] Comment on above: Performed By: #### CBC ####[facility] Dfymnjqxuk2243 [place] [address]Dr. Yuki Diaz Platelet mean volume (Bld) [Entitic vol] 10.2 fL Normal 9.5-13.5 [facility] Comment on above: Performed By: #### CBC ####[facility] ital Dzvezngbpn8538 [place] [address]Dr. Yuki Diaz PLT 208 103/ul Normal 150-450 [facility] Comment on above: Performed By: #### CBC ####[facility] Litkccijxe8067 [place] [address]Dr. Yuki Diaz RBC 3.51 106/ul Critically low 4.70-6.10 [facility] Comment on above: Performed By: #### CBC ####[facility] Fyacpzikks7047 [place] [address]Dr. Yuki Diaz WBC 10.1 103/ul Normal 4.0-11.0 [facility] Comment on above: Performed By: #### CBC ####[facility] Eepibmglfl2344 [place] [address]Dr. Yuki Diaz POINT OF CARE GLUCOSEon 06-2 -2021 Glucose [Mass/Vol] 160 mg/dL Critically high 74-106 [facility] Comment on above: Performed By: #### POCGLUC ####[facility] Bdynuijdak4774 [place] [address]Dr. Yuki Diaz Glucose [Mass/Vol] 210 mg/dL Critically high 74-106 [facility] Comment on above: Performed By: #### POCGLUC ####[facility] Xzzkwtdlzc4878 [place] [address]Dr. Yuki Diaz Glucose [Mass/Vol] 205 mg/dL Critically high 74-106 [facility] Comment on above: Performed By: #### POCGLUC ####[facility] Groaijvjwx[address] [place], [place] [address]Dr. Yuki Diaz PROF 14(COMP METB)on 022 Albumin [Mass/Vol] 3.0 g/dL Critically low 3.4-5.0 [facility] Comment on above: Performed By: #### BNP, CMP ####[facility] Otezvgfahl5087 [place] [address]Dr. Yuki Daiz Albumin/Globulin [Mass ratio] 0.8 {ratio} Normal [facility] Comment on above: Performed By: #### BNP, CMP ####[facility] Kyminffjxt1172 [place] [address]Dr. Yuki Diaz ALP [Catalytic activity/Vol] 106 U/L Normal 46-116 [facility] Comment on above: Performed By: #### BNP, CMP ####[facility] Itsaierdsc[address] [place], [place] [address]Dr. Yuki Diaz ALT [Catalytic activity/Vol] 33 U/L Normal 16-63 [facility] Comment on above: Performed By: #### BNP, CMP ####[facility] Gqbofphvix8[address] [place], [place] [address]Dr. Yuki Diaz Anion gap [Moles/Vol] 6.1 mmol/L Normal [facility] Comment on above: Performed By: #### BNP, CMP ####[facility] Ztvvreouin9[address] [place], [place] [address]Dr. Yuki Diaz AST [Catalytic activity/Vol] 20 U/L Normal 15-37 [facility] Comment on above: Performed By: #### BNP, CMP ####[facility] Pdbmsluban6[address] [place], [place] [address]Dr. Yuki Diaz Bilirubin [Mass/Vol] 0.8 mg/dL Normal 0.2-1.0 [facility] Comment on above: Performed By: #### BNP, CMP ####[facility] Nafkwfnktu[address] [place], [place] [address]Dr. Yuki Daiz Calcium [Mass/Vol] 8.4 mg/dL Critically low 8.5-10.1 [facility] Comment on above: Performed By: #### BNP, CMP ####[facility] Mopmqgfsnl[address] [place], [place] [address]Dr. Yuki Diaz Chloride [Moles/Vol] 105 mmol/L Normal 98-107 [facility] Comment on above: Performed By: #### BNP, CMP ####[facility] Zlncsknoyh[address] [place], [place] [address]Dr. Yuki Diaz CO2 [Moles/Vol] 40.2 mmol/L Critically high 21.0-32.0 [facility] Comment on above: Performed By: #### BNP, CMP ####[facility] Dgfkobvzwn67[address] [place], [place] [address]Dr. Yuki Diaz Creatinine [Mass/Vol] 1.88 mg/dL Critically high 0.70-1.30 [facility] Comment on above: Performed By: #### BNP, CMP ####[facility] Bhqgjtolxx334[address] [place], [place] [address]Dr. Yuki Diaz EGFR-AF LEBANESE 42 mL/min/1.73m2 Critically low >=60 [facility] Comment on above: Performed By: #### BNP, CMP ####[facility] Egyiliezkn84[address] [place], [place] [address]Dr. Yuki Diaz EGFR-NON AF LEBANESE 35 mL/min/1.73m2 Critically low >=60 [facility] Comment on above: Performed By: #### BNP, CMP ####[facility] Wgjtmtvped[address] [place], [place] [address]Dr. Yuki Diaz Globulin (S) [Mass/Vol] 3.6 g/dL Normal [facility] Comment on above: Performed By: #### BNP, CMP ####[facility] Pphnypqmwk335[address] [place], [place] [address]Dr. Yuki Diaz Glucose [Mass/Vol] 62 mg/dL Critically low 74-106 [facility] Comment on above: Performed By: #### BNP, CMP ####[facility] Ykquurdbpu450[address] [place], [place] [address]Dr. Yuki Diaz Potassium [Moles/Vol] 3.3 mmol/L Critically low 3.5-5.1 [facility] Comment on above: Performed By: #### BNP, CMP ####[facility] Alpgirorfx3[address] [place] [address]Dr. Yuki Diaz Protein [Mass/Vol] 6.6 g/dL Normal 6.4-8.2 [facility] Comment on above: Performed By: #### BNP, CMP ####[facility] Muqdolyhld9013 [place] [address]Dr. Yuki Diaz Sodium [Moles/Vol] 148 mmol/L Critically high 136-145 [facility] Comment on above: Performed By: #### BNP, CMP ####[facility] Jeoeoxelhc4814 [place] [address]Dr. Yuki Diaz Urea nitrogen [Mass/Vol] 29.0 mg/dL Critically high 7.0-18.0 [facility] Comment on above: Performed By: #### BNP, CMP ####[facility] Dczygdctox6329 [place] [address]Dr. Yuki Diaz Urea nitrogen/Creatin ine [Mass ratio] 15.4 mg/mg Normal [facility] Comment on above: Performed By: #### BNP, CMP ####[facility] Zfrzkzvwsl8726 [place] [address]Dr. Yuki Diaz PROF CHEM 8 (BAS METB)on Anion gap [Moles/Vol] 11.1 mmol/L Normal [facility] Comment on above: Performed By: #### BMP ####[facility] Idthmmdfco[address] [place], [place] [address]Dr. Yuki Diaz Calcium [Mass/Vol] 8.1 mg/dL Critically low 8.5-10.1 [facility] Comment on above: Performed By: #### BMP ####[facility] Hoeveoyqeh5552 [place] [address]Dr. Yuki Diaz Chloride [Moles/Vol] 102 mmol/L Normal 98-107 [facility] Comment on above: Performed By: #### BMP ####[facility] Bwsbbnwacb45340[address] [place], [place] [address]Dr. Yuki Diaz CO2 [Moles/Vol] 35.4 mmol/L Critically high 21.0-32.0 [facility] Comment on above: Performed By: #### BMP ####[facility] Ppbuhrykfm1104 [place] [id number]. Yuki Diaz Creatinine [Mass/Vol] 1.88 mg/dL Critically high 0.70-1.30 [facility] Comment on above: Performed By: #### BMP ####[facility] Ctusrokqtd4850 [place] [id number]. Yuki iDaz EGFR-AF LEBANESE 42 mL/min/1.73m2 Critically low >=60 [facility] Comment on above: Performed By: #### BMP ####[facility] Oogehzgysf2322 [place] [id number]. Yuki Diaz EGFR-NON AF LEBANESE 35 mL/min/1.73m2 Critically low >=60 [facility] Comment on above: Performed By: #### BMP ####[facility] Ipdflciiou7561 [place] [address]Dr. Yuki Diaz Glucose [Mass/Vol] 208 mg/dL Critically high 74-106 [facility] Comment on above: Performed By: #### BMP ####[facility] Cqbcfxxxet5434 [place] [address]Dr. Yuki Diaz Potassium [Moles/Vol] 3.5 mmol/L Normal 3.5-5.1 [facility] Comment on above: Performed By: #### BMP ####[facility] Nvwndlqbou1883 [place] [address]Dr. Yuki Diaz Sodium [Moles/Vol] 145 mmol/L Normal 136-145 [facility] Comment on above: Performed By: #### BMP ####[facility] Owbpzseizs1921 [place] [address]Dr. Yuki Diaz Urea nitrogen [Mass/Vol] 33.0 mg/dL Critically high 7.0-18.0 [facility] Comment on above: Performed By: #### BMP ####[facility] Hgzelwcazb3659 [place] [address]Dr. Yuki Diaz Urea nitrogen/Creatin ine [Mass ratio] 17.6 mg/mg Normal [facility] Comment on above: Performed By: #### BMP ####[facility] ital Evdtcabjak[address] [place], [place] [address]Dr. Yuki Diaz PROTIMEon 01-26-2022 INR Coag (PPP) [Relative time] 1.15 {INR} Normal [facility] Comment on above: Performed By: #### PT ####[facility] kacie Evxftqzbvb028[address] [place], [place] [address]Dr. Yuki Diaz INR GUIDELINES SEE BELOW Normal [facility] Comment on above: Result Comment: DESIRED INR: 2.0 - 3.0 C ONDITIONS NOT LISTED BELOW 2.5 - 3.5 FOR PROSTHETIC HEART VALVE REPLACEMENT 2.5 - 3.5 RECURRENT THROMBOSIS Performed By: #### P T ####[facility] Svvlkvenev[address] [place], [place] [address]DrBebo Diaz PT Coag (PPP) [Time] 12.3 s Critically high 9.0-11.6 [facility] Comment on above: Performed By: #### PT ####[facility] kacie Eipzlqiqvx324[address] [place], [place] [address]Dr. Yuki Diaz BNPon 01-25-2022 Natriuretic peptide B (Bld) [Mass/Vol] 3414.0 pg/mL Critically high <=1,800.0 [facility] Comment on above: Performed By: #### BNP, BMP ####[facility] Rjiaeqfsah[address] [place], [place] [address]DrBebo Diaz CBC AUTO DIFFon 01-25-2022 BASO # 0.0 103/ul Normal 0.0-0.1 [facility] Comment on above: Performed By: #### CBC ####[facility] Hxbrebavoy[address] [place], [place] [address]DrBebo Diaz Basophils/100 WBC (Bld) 0.3 % Normal 0.2-2.0 [facility] Comment on above: Performed By: #### CBC ####[facility] Haknhpqqtc[address] [place], [place] [address]DrBebo Diaz EO # 0.2 103/ul Normal 0.0-0.7 [facility] Comment on above: Performed By: #### CBC ####[facility] Alrvbhotnj8782 [place] [address]Dr. Yuki Diaz Eosinophils/100 WBC (Bld) 1.9 % Normal 0.9-7.0 [facility] Comment on above: Performed By: #### CBC ####[facility] ital Owygthsvel8092 [place] [address]Dr. Yuki Diaz Erythrocyte distribution width (RBC) [Ratio] 13.2 % Normal 11.0-15.0 [facility] Comment on above: Performed By: #### CBC ####[facility] Gmnzknksqm8045 [place] [address]Dr. Yuki Diaz Hematocrit (Bld) [Volume fraction] 33.8 % Critically low 42.0-54.0 [facility] Comment on above: Performed By: #### CBC ####[facility] ital Twqkphtpda8775 [place] [address]Dr. Yuki Diaz Hemoglobin (Bld) [Mass/Vol] 10.8 g/dL Critically low 14.0-18.0 [facility] Comment on above: Performed By: #### CBC ####[facility] Dqnodhahuw6561 [place] [address]Dr. Yuki Diaz IG # 0.04 10e3/ul Critically high 0.00-0.03 [facility] Comment on above: Performed By: #### CBC ####[facility] Durzfhlwon2239 [place] [address]Dr. Yuki Diaz IG % 0.4 % Normal 0.0-0.5 [facility] Comment on above: Performed By: #### CBC ####[facility] ital Jtzibnopdf3892 [place] [address]Dr. Yuki Diaz LYMPH # 1.5 103/ul Normal 1.2-3.8 [facility] Comment on above: Performed By: #### CBC ####[facility] Blywzrwpoz5984 [place] [address]Dr. Yuki Diaz Lymphocytes/100 WBC (Bld) 14.8 % Critically low 20.5-60.0 [facility] Comment on above: Performed By: #### CBC ####[facility] ital Tffnjtgoel8741 [place] [address]Dr. Yuki Diaz MANUAL DIFF REQ NO Normal [facility] Comment on above: Performed By: #### CBC ####[facility] Dguutphpsl2352 [place] [address]Dr. Yuki Diaz MCH (RBC) [Entitic mass] 31.9 pg Normal 25.9-34.0 [facility] Comment on above: Performed By: #### CBC ####[facility] Vwovcebhnp3727 [place] [address]Dr. Yuki Diaz MCHC (RBC) [Mass/Vol] 32.0 g/dL Normal 29.9-35.2 [facility] Comment on above: Performed By: #### CBC ####[facility] ital Uxlidyjqgp3981 [place] [address]Dr. Yuki Diaz MCV (RBC) [Entitic vol] 99.7 fL Critically high 80.0-94.0 [facility] Comment on above: Performed By: #### CBC ####[facility] Tsqjcyccfn9037 [place] [address]DrBebo Diaz MONO # 1.0 103/ul Critically high 0.3-0.8 [facility] Comment on above: Performed By: #### CBC ####[facility] ital Ffvydgsihu4320 [place] [address]Dr. Yuki Diaz Monocytes/100 WBC (Bld) 9.8 % Normal 1.7-12.0 [facility] Comment on above: Performed By: #### CBC ####[facility] Uaciftfwcv7924 [place] [address]DrBebo Diaz NEUT # 7.1 103/ul Critically high 1.4-6.5 [facility] Comment on above: Performed By: #### CBC ####[facility] Perevtwjph5380 [place] [address]DrBebo Diaz Neutrophils/100 WBC (Bld) 72.8 % Normal 43.0-75.0 [facility] Comment on above: Performed By: #### CBC ####[facility] ital Jrkmoknypj8664 [place] [address]Dr. Yuki Diaz Platelet mean volume (Bld) [Entitic vol] 10.4 fL Normal 9.5-13.5 [facility] Comment on above: Performed By: #### CBC ####[facility] ital Sqwfcxhvib6553 [place] [address]Dr. Yuki Diaz PLT 204 103/ul Normal 150-450 [facility] Comment on above: Performed By: #### CBC ####[facility] Pjkvdqqwkl2550 [place] [address]Dr. Yuki Diaz RBC 3.39 106/ul Critically low 4.70-6.10 [facility] Comment on above: Performed By: #### CBC ####[facility] Tgqsbrtubc9708 [place] [address]Dr. Yuki Diaz WBC 9.8 103/ul Normal 4.0-11.0 [facility] Comment on above: Performed By: #### CBC ####[facility] Ywetuamnbw7221 [place] [address]Dr. Yuki Diaz POINT OF CARE GLUCOSEon -09 07-2021 Glucose [Mass/Vol] 106 mg/dL Normal 74-106 [facility] Comment on above: Performed By: #### POCGLUC ####[facility] Pijscnidnc3069 [place] [address]Dr. Yuki Diaz Glucose [Mass/Vol] 253 mg/dL Critically high 74-106 [facility] Comment on above: Performed By: #### POCGLUC ####[facility] Tptvcvwzpv0379 [place] [address]Dr. Yuki Diaz Glucose [Mass/Vol] 196 mg/dL Critically high 74-106 [facility] Comment on above: Performed By: #### POCGLUC ####[facility] Ywinabiaxw8730 [place] [address]Dr. Yuki Joe Glucose [Mass/Vol] 194 mg/dL Critically high 74-106 [facility] Comment on above: Performed By: #### POCGLUC ####[facility] Jnuyozdmpn38[address] [place], [place] [address]Dr. Monsealyssa Diaz POTASSIUMon 01-25-2022 Potassium [Moles/Vol] 3.4 mmol/L Critically low 3.5-5.1 [facility] Comment on above: Performed By: #### K ####[facility] Pdvhjfwzwh[address] [place], [place] [address]Dr. Yuki Diaz PROF CHEM 8 (BAS METB)on Anion gap [Moles/Vol] 9.0 mmol/L Normal [facility] Comment on above: Performed By: #### BNP, BMP ####[facility] Qbuvciwufd097[address] [place], [place] [address]Dr. Yuki Diaz Anion gap [Moles/Vol] 9.0 mmol/L Normal [facility] Comment on above: Performed By: #### BMP ####[facility] Wufsmhlwzz489[address] [place], [place] [address]Dr. Monsealyssa Joe Calcium [Mass/Vol] 8.3 mg/dL Critically low 8.5-10.1 [facility] Comment on above: Performed By: #### BNP, BMP ####[facility] Snxkvrmvko[address] [place], [place] [address]Dr. Yuki Diaz Calcium [Mass/Vol] 8.3 mg/dL Critically low 8.5-10.1 [facility] Comment on above: Performed By: #### BMP ####[facility] Bwbrmfzxyz25[address] [place], [place] [address]Dr. Yuki Diaz Chloride [Moles/Vol] 104 mmol/L Normal 98-107 [facility] Comment on above: Performed By: #### BNP, BMP ####[facility] Hgseprqsfs1401[address] [place], [place] [address]Dr. Yuki Diaz Chloride [Moles/Vol] 103 mmol/L Normal 98-107 [facility] Comment on above: Performed By: #### BMP ####[facility] Kldiytupjv940[address] [place], [place] [address]Dr. Yuki Diaz CO2 [Moles/Vol] 37.0 mmol/L Critically high 21.0-32.0 [facility] Comment on above: Performed By: #### BNP, BMP ####[facility] Tvvovfgeky[address] [place], [place] [address]Dr. Yuki Diaz CO2 [Moles/Vol] 35.9 mmol/L Critically high 21.0-32.0 [facility] Comment on above: Performed By: #### BMP ####[facility] Ymbjmudciu095[address] [place], [place] [address]Dr. Yuki Diaz Creatinine [Mass/Vol] 2.03 mg/dL Critically high 0.70-1.30 [facility] Comment on above: Performed By: #### BNP, BMP ####[facility] Owvrtwonpw674[address] [place], [place] [address]Dr. Yuki Diaz Creatinine [Mass/Vol] 1.94 mg/dL Critically high 0.70-1.30 [facility] Comment on above: Performed By: #### BMP ####[facility] ital Ztnvvcetlg922[address] [place], [place] [address]Dr. Yuki Diaz EGFR-AF LEBANESE 39 mL/min/1.73m2 Critically low >=60 [facility] Comment on above: Performed By: #### BNP, BMP ####[facility] Rormwajnvi[address] [place], [place] [address]Dr. Yuki Diaz EGFR-AF LEBANESE 41 mL/min/1.73m2 Critically low >=60 [facility] Comment on above: Performed By: #### BMP ####[facility] Jmhwbyhffm244[address] [place], [place] [address]Dr. Yuki Diaz EGFR-NON AF LEBANESE 32 mL/min/1.73m2 Critically low >=60 [facility] Comment on above: Performed By: #### BNP, BMP ####[facility] Xypkuwscxd[address] [place], [place] [address]Dr. Yuki Diaz EGFR-NON AF LEBANESE 34 mL/min/1.73m2 Critically low >=60 [facility] Comment on above: Performed By: #### BMP ####[facility] Qeulyfrdnc59100[address] [place], [place] [address]Dr. Yuki Diaz Glucose [Mass/Vol] 102 mg/dL Normal 74-106 [facility] Comment on above: Performed By: #### BNP, BMP ####[facility] Wdoksxdihw4196 [place] [address]Dr. Monselan Diaz Glucose [Mass/Vol] 181 mg/dL Critically high 74-106 [facility] Comment on above: Performed By: #### BMP ####[facility] Jkdfmmzqus7635 [place] [address]Dr. Monselan Diaz Potassium [Moles/Vol] 3.0 mmol/L Critically low 3.5-5.1 [facility] Comment on above: Performed By: #### BNP, BMP ####[facility] Lkhutaoqac1931 [place] [address]Dr. Monselan Diaz Potassium [Moles/Vol] 2.9 mmol/L Critically low 3.5-5.1 [facility] Comment on above: Result Comment: TEST REPEATED CRITICAL V ALUE VERIFIED Performed By: #### B MP ####[facility] Vvoelqvlmc3204 [place] [address]Dr. Monselan Diaz Sodium [Moles/Vol] 147 mmol/L Critically high 136-145 [facility] Comment on above: Performed By: #### BNP, BMP ####[facility] Czdbpnsqag5217 [place] [address]Dr. Monselan Diaz Sodium [Moles/Vol] 145 mmol/L Normal 136-145 [facility] Comment on above: Performed By: #### BMP ####[facility] Mfeatvphdd9613 [place] [address]Dr. Monselan Diaz Urea nitrogen [Mass/Vol] 31.0 mg/dL Critically high 7.0-18.0 [facility] Comment on above: Performed By: #### BNP, BMP ####[facility] Gmzuncaktt0389 [place] [address]Dr. Monselan Diaz Urea nitrogen [Mass/Vol] 30.0 mg/dL Critically high 7.0-18.0 [facility] Comment on above: Performed By: #### BMP ####[facility] Bjpdhiohhe8902 [place] [address]Dr. Yuki Diaz Urea nitrogen/Creatin ine [Mass ratio] 15.3 mg/mg Normal [facility] Comment on above: Performed By: #### BNP, BMP ####[facility] Ioififqdgz5872 [place] [address]Dr. Yuki Diaz Urea nitrogen/Creatin ine [Mass ratio] 15.5 mg/mg Normal [facility] Comment on above: Performed By: #### BMP ####[facility] Zngcjckmvg3287 [place] [address]Dr. Yuki Diaz TROPONIN, HIGH SENSITIVITYon 01-25-2022 HSTROP 38.8 pg/mL Normal 4.0-76.1 [facility] Comment on above: Result Comment: CUT-OFF POINTS HAVE BEEN ESTABLISHED BASED ON THE FOURTH UNIVERSAL DEFINITIONS OF MYOCARDIALINFARCTION. THE UPPER REFERENCE LIMIT (URL) OF TROPONIN, DEFINED THE 99TH PERCENTILE OFcTnI DISTRIBUTION IN A REFERENCE POPULATION, HAS BEEN CONFIRMED THE DECISION THRESHOLDFOR NE DIAGNOSIS. Performed By: #### H STROPN ####[facility] Ylpvjjapcg[address] [place], [place] [address]Dr. Yuki Diaz BNPon 01-24-2022 Natriuretic peptide B (Bld) [Mass/Vol] 3429.0 pg/mL Critically high <=1,800.0 [facility] Comment on above: Performed By: #### HSTROPN, CMADM, BNP # ###[facility] Xyyhgaphla6037 [place] [address]Dr. Yuki Diaz CARDIAC RACHEL ADMITon 022 CK [Catalytic activity/Vol] 108 U/L Normal 39-308 [facility] Comment on above: Performed By: #### HSTROPN, CMADM, BNP # ###[facility] Ukpnljbwjx8551 [place] [address]Dr. Yuki Diaz CK.MB [Mass/Vol] 2.44 ng/mL Normal <=3.60 [facility] Comment on above: Performed By: #### HSTROPN, CMADM, BNP # ###[facility] Tsiazdqifk[address] [place], [place] [id number]. Yuki Diaz DILSHAD 177 ng/mL Critically high 16-96 [facility] Comment on above: Performed By: #### HSTROPN, CMADM, BNP # ###[facility] Jgzyeenssr4546 [place] [address]Dr. Yuki Diaz CBC AUTO DIFFon 01-24-2022 BASO # 0.0 103/ul Normal 0.0-0.1 [facility] Comment on above: Performed By: #### CBC ####[facility] Jazcrpcmii7932 [place] [address]Dr. Yuki Diaz Basophils/100 WBC (Bld) 0.3 % Normal 0.2-2.0 [facility] Comment on above: Performed By: #### CBC ####[facility] Ioxlonuypm1908 [place] [address]Dr. Yuki Diaz EO # 0.2 103/ul Normal 0.0-0.7 [facility] Comment on above: Performed By: #### CBC ####[facility] Qbaohdeysa0611 [place] [address]Dr. Yuki Diaz Eosinophils/100 WBC (Bld) 1.7 % Normal 0.9-7.0 [facility] Comment on above: Performed By: #### CBC ####[facility] Krmvjtyraf7630 [place] [address]Dr. Yuki Diaz Erythrocyte distribution width (RBC) [Ratio] 13.5 % Normal 11.0-15.0 [facility] Comment on above: Performed By: #### CBC ####[facility] Jufcvsfwcl7936 [place] [address]Dr. Yuki Diaz Hematocrit (Bld) [Volume fraction] 33.3 % Critically low 42.0-54.0 [facility] Comment on above: Performed By: #### CBC ####[facility] Vekgcttlqb7602 [place] [address]Dr. Yuki Diaz Hemoglobin (Bld) [Mass/Vol] 10.8 g/dL Critically low 14.0-18.0 [facility] Comment on above: Performed By: #### CBC ####[facility] Asgrcnvrzd7651 [place] [address]Dr. Yuki Diaz IG # 0.04 10e3/ul Critically high 0.00-0.03 [facility] Comment on above: Performed By: #### CBC ####[facility] Kpjzysosaq9789 [place] [address]Dr. Yuki Diaz IG % 0.4 % Normal 0.0-0.5 [facility] Comment on above: Performed By: #### CBC ####[facility] Tmmitqzynp1325 [place] [address]Dr. Yuki Diaz LYMPH # 1.3 103/ul Normal 1.2-3.8 [facility] Comment on above: Performed By: #### CBC ####[facility] Ljvwfmaalw8777 [place] [address]Dr. Yuki Diaz Lymphocytes/100 WBC (Bld) 13.8 % Critically low 20.5-60.0 [facility] Comment on above: Performed By: #### CBC ####[facility] Wxhyutcphr3042 [place] [address]Dr. Monsealyssa Diaz MANUAL DIFF REQ NO Normal [facility] Comment on above: Performed By: #### CBC ####[facility] Qxawnulwnz9828 [place] [address]Dr. Yuki Diaz MCH (RBC) [Entitic mass] 32.8 pg Normal 25.9-34.0 [facility] Comment on above: Performed By: #### CBC ####[facility] Gqpkiyghgf5253 [place] [address]Dr. Yuki Diaz MCHC (RBC) [Mass/Vol] 32.4 g/dL Normal 29.9-35.2 [facility] Comment on above: Performed By: #### CBC ####[facility] Zuzzxfyfkd1239 [place] [address]Dr. Yuki Diaz MCV (RBC) [Entitic vol] 101.2 fL Critically high 80.0-94.0 [facility] Comment on above: Performed By: #### CBC ####[facility] Fpilggcxge2719 [place] [address]Dr. Yuki Diaz MONO # 0.8 103/ul Normal 0.3-0.8 [facility] Comment on above: Performed By: #### CBC ####[facility] Xybfqzuxkj4046 [place] [address]Dr. Yuki Diaz Monocytes/100 WBC (Bld) 8.3 % Normal 1.7-12.0 [facility] Comment on above: Performed By: #### CBC ####[facility] ital Nkbcenqpqt3863 [place] [address]Dr. Yuki Diaz NEUT # 7.2 103/ul Critically high 1.4-6.5 [facility] Comment on above: Performed By: #### CBC ####[facility] Wpxnduxzmk9248 [place] [address]Dr. Yuki Diaz Neutrophils/100 WBC (Bld) 75.5 % Critically high 43.0-75.0 [facility] Comment on above: Performed By: #### CBC ####[facility] Iojbhjuafv7421 [place] [address]Dr. Yuki Diaz Platelet mean volume (Bld) [Entitic vol] 10.6 fL Normal 9.5-13.5 [facility] Comment on above: Performed By: #### CBC ####[facility] Smduqgbeyv0018 [place] [address]Dr. Yuki Diaz PLT 215 103/ul Normal 150-450 [facility] Comment on above: Performed By: #### CBC ####[facility] Pzflfbsejw3455 [place] [address]Dr. Yuki Diaz RBC 3.29 106/ul Critically low 4.70-6.10 [facility] Comment on above: Performed By: #### CBC ####[facility] Glzdbhurdx3052 [place] [address]Dr. Yuki Diaz WBC 9.5 103/ul Normal 4.0-11.0 [facility] Comment on above: Performed By: #### CBC ####[facility] Bdgtxtmoub435[address] [place], [place] [address]Dr. Yuki Diaz Covid-19 PCR (CVDTB)on 01-06 SARS-CoV-2 (COVID-19) RNA JARVIS+probe Ql (Unsp spec) Not detected Normal NOT DETECTED [facility] Comment on above: Result Comment: When [...] for this test is supported by the Bulk Delivery Driver of Health and Human Service's declaration that [...] longer be used). Performed By: #### C VDTBH ####[facility] Mcolvgdpro[address] [place], [place] [address]Dr. Yuki Diaz PROF 14(COMP METB)on 022 Albumin [Mass/Vol] 2.8 g/dL Critically low 3.4-5.0 [facility] Comment on above: Performed By: #### CMP ####[facility] ital Iecdgjlerw[address] [place] [address]Dr. Yuki Diaz Albumin/Globulin [Mass ratio] 0.8 {ratio} Normal [facility] Comment on above: Performed By: #### CMP ####[facility] Rxumpnvigc89[address] [place], [place] [address]Dr. Yuki Diaz ALP [Catalytic activity/Vol] 96 U/L Normal 46-116 [facility] Comment on above: Performed By: #### CMP ####[facility] ital Wwmtebammp05[address] [place], [place] [address]Dr. Yuki Diaz ALT [Catalytic activity/Vol] 32 U/L Normal 16-63 [facility] Comment on above: Performed By: #### CMP ####[facility] ital Sctvpqjvli20[address] [place] [address]Dr. Yuki Diaz Anion gap [Moles/Vol] 12.6 mmol/L Normal [facility] Comment on above: Performed By: #### CMP ####[facility] ital Rbroilhxsp4662 [place] [address]Dr. Yuki Diaz AST [Catalytic activity/Vol] 19 U/L Normal 15-37 [facility] Comment on above: Performed By: #### CMP ####[facility] ital Vvnawujuom0294 [place] [address]Dr. Yuki Diaz Bilirubin [Mass/Vol] 0.7 mg/dL Normal 0.2-1.0 [facility] Comment on above: Performed By: #### CMP ####[facility] ital Rjthocokre8913 [place] [address]Dr. Yuki Diaz Calcium [Mass/Vol] 8.2 mg/dL Critically low 8.5-10.1 [facility] Comment on above: Performed By: #### CMP ####[facility] ital Hrhclsqtmr34[address] [place], [place] [address]Dr. Yuki Joe Chloride [Moles/Vol] 103 mmol/L Normal 98-107 [facility] Comment on above: Performed By: #### CMP ####[facility] ital Zxezggyygm6931 [place] [address]Dr. Yuki Diaz CO2 [Moles/Vol] 31.2 mmol/L Normal 21.0-32.0 [facility] Comment on above: Performed By: #### CMP ####[facility] ital Kpwixzxmah[address] [place], [place] [address]Dr. Yuki Diaz Creatinine [Mass/Vol] 2.24 mg/dL Critically high 0.70-1.30 [facility] Comment on above: Performed By: #### CMP ####[facility] ital Rbuudzizsh4675 [place] [address]Dr. Yuki Joe EGFR-AF LEBANESE 34 mL/min/1.73m2 Critically low >=60 [facility] Comment on above: Performed By: #### CMP ####[facility] ital Yramseoqck4237 [place] [address]Dr. Yuki Diaz EGFR-NON AF LEBANESE 28 mL/min/1.73m2 Critically low >=60 [facility] Comment on above: Performed By: #### CMP ####[facility] Pdeuhblltd2106 [place] [address]Dr. Yuki Joe Globulin (S) [Mass/Vol] 3.4 g/dL Normal [facility] Comment on above: Performed By: #### CMP ####[facility] ital Vdmnlnoxmm1726 [place] [address]Dr. Yuki Joe Glucose [Mass/Vol] 123 mg/dL Critically high 74-106 [facility] Comment on above: Performed By: #### CMP ####[facility] ital Koifazefqc7087 [place] [address]Dr. Yuki Joe Potassium [Moles/Vol] 2.7 mmol/L Critically low 3.5-5.1 [facility] Comment on above: Performed By: #### CMP ####[facility] ital Hafygmwmip807[address] [place], [place] [address]Dr. Yuki Joe Protein [Mass/Vol] 6.2 g/dL Critically low 6.4-8.2 [facility] Comment on above: Performed By: #### CMP ####[facility] ital Uydavbebsp9813 [place] [address]Dr. Yuki Joe Sodium [Moles/Vol] 142 mmol/L Normal 136-145 [facility] Comment on above: Performed By: #### CMP ####[facility] ital Wnuwzcfvev9803 [place] [address]Dr. Yuki Joe Urea nitrogen [Mass/Vol] 29.0 mg/dL Critically high 7.0-18.0 [facility] Comment on above: Performed By: #### CMP ####[facility] ital Qnovjssrna9235 [place] [address]Dr. Monsealyssa Joe Urea nitrogen/Creatin ine [Mass ratio] 12.9 mg/mg Normal [facility] Comment on above: Performed By: #### CMP ####[facility] Vczgjxulds0[address] [place] [address]Dr. Yuik Diaz TROPONIN, HIGH SENSITIVITYon 01-24-2022 HSTROP 33.1 pg/mL Normal 4.0-76.1 [facility] Comment on above: Result Comment: CUT-OFF POINTS HAVE BEEN ESTABLISHED BASED ON THE FOURTH UNIVERSAL DEFINITIONS OF MYOCARDIALINFARCTION. THE UPPER REFERENCE LIMIT (URL) OF TROPONIN, DEFINED THE 99TH PERCENTILE OFcTnI DISTRIBUTION IN A REFERENCE POPULATION, HAS BEEN CONFIRMED THE DECISION THRESHOLDFOR NE DIAGNOSIS. Performed By: #### H STROPN, CMADM, BNP ####[facility] Leamgjmytp[address] [place], [place] [address]Dr. Yuki Diaz XR CHEST 1 Von 01-24-2022 XR CHEST 1 V Normal [facility] BNPon 01-12-2022 Natriuretic peptide B (Bld) [Mass/Vol] 2759.0 pg/mL Critically high <=1,800.0 [facility] Comment on above: Performed By: #### CMP, BNP ####[facility] Otlxglhlop[address] [place], [place] [address]Dr. Yuki Diaz PROF 14(COMP METB)on 022 Albumin [Mass/Vol] 2.9 g/dL Critically low 3.4-5.0 [facility] Comment on above: Performed By: #### CMP, BNP ####[facility] Huidtqqhbc[address] [place], [place] [address]DrBebo Daiz Albumin/Globulin [Mass ratio] 0.8 {ratio} Normal [facility] Comment on above: Performed By: #### CMP, BNP ####[facility] Meycorrwgm7109 [place] [address]Dr. Yuki Diaz ALP [Catalytic activity/Vol] 100 U/L Normal 46-116 [facility] Comment on above: Performed By: #### CMP, BNP ####[facility] Efgfuqjghq642[address] [place], [place] [address]Dr. Yuki Diaz ALT [Catalytic activity/Vol] 43 U/L Normal 16-63 [facility] Comment on above: Performed By: #### CMP, BNP ####[facility] Uuyvjwamwo7118 [place] [address]Dr. Yuki Diaz Anion gap [Moles/Vol] 7.6 mmol/L Normal [facility] Comment on above: Performed By: #### CMP, BNP ####[facility] Gkostptucp9609 [place] [address]Dr. Yuki Diaz AST [Catalytic activity/Vol] 22 U/L Normal 15-37 [facility] Comment on above: Performed By: #### CMP, BNP ####[facility] Vadqbeysue7152 [place] [address]Dr. Yuki Joe Bilirubin [Mass/Vol] 0.8 mg/dL Normal 0.2-1.0 [facility] Comment on above: Performed By: #### CMP, BNP ####[facility] Qyobndtppf835[address] [place], [place] [address]Dr. Yuki Joe Calcium [Mass/Vol] 8.0 mg/dL Critically low 8.5-10.1 [facility] Comment on above: Performed By: #### CMP, BNP ####[facility] Ndnofkzmrk[address] [place], [place] [address]Dr. Yuki Joe Chloride [Moles/Vol] 107 mmol/L Normal 98-107 [facility] Comment on above: Performed By: #### CMP, BNP ####[facility] Cuenoqrwry646[address] [place], [place] [address]Dr. Yuki Joe CO2 [Moles/Vol] 37.1 mmol/L Critically high 21.0-32.0 [facility] Comment on above: Performed By: #### CMP, BNP ####[facility] Rcnpjlehue[address] [place], [place] [address]Dr. Yuki Joe Creatinine [Mass/Vol] 1.94 mg/dL Critically high 0.70-1.30 [facility] Comment on above: Performed By: #### CMP, BNP ####[facility] Wnigbwesnx085[address] [place], [place] [address]Dr. Yuki Joe EGFR-AF LEBANESE 41 mL/min/1.73m2 Critically low >=60 [facility] Comment on above: Performed By: #### CMP, BNP ####[facility] Enjuzvaywe9[address] [place] [address]Dr. Monsealyssa Joe EGFR-NON AF LEBANESE 34 mL/min/1.73m2 Critically low >=60 [facility] Comment on above: Performed By: #### CMP, BNP ####[facility] Kwvzcsjwnd2299 [place] [address]Dr. Yuki Diaz Globulin (S) [Mass/Vol] 3.5 g/dL Normal [facility] Comment on above: Performed By: #### CMP, BNP ####[facility] Fxshvepjpn4[address] [place], [place] [address]Dr. Monsealyssa Joe Glucose [Mass/Vol] 76 mg/dL Normal 74-106 [facility] Comment on above: Performed By: #### CMP, BNP ####[facility] Lsfngqvoqx986[address] [place], [place] [address]Dr. Yuki Diaz Potassium [Moles/Vol] 3.7 mmol/L Normal 3.5-5.1 [facility] Comment on above: Performed By: #### CMP, BNP ####[facility] Tsycnlyxgx189[address] [place], [place] [address]Dr. Yuki Diaz Protein [Mass/Vol] 6.4 g/dL Normal 6.4-8.2 [facility] Comment on above: Performed By: #### CMP, BNP ####[facility] Pglpehcges727[address] [place], [place] [address]Dr. Yuki Diaz Sodium [Moles/Vol] 148 mmol/L Critically high 136-145 [facility] Comment on above: Performed By: #### CMP, BNP ####[facility] Rzqvejarxq[address] [place], [place] [address]Dr. Yuki Diaz Urea nitrogen [Mass/Vol] 35.0 mg/dL Critically high 7.0-18.0 [facility] Comment on above: Performed By: #### CMP, BNP ####[facility] Lphspaerib[address] [place], [place] [address]Dr. Yuki Diaz Urea nitrogen/Creatin ine [Mass ratio] 18.0 mg/mg Normal [facility] Comment on above: Performed By: #### CMP, BNP ####[facility] Kdixujcazf[address] [place], [place] [address]Dr. Yuki Diaz BNPon 12-30-2021 Natriuretic peptide B (Bld) [Mass/Vol] 4262.0 pg/mL Critically high <=1,800.0 [facility] Comment on above: Result Comment: repeated Performed By: #### C MP, BNP ####[facility] Xnifpahybm[address] [place], [place] [address]Dr. Yuki Diaz CBC AUTO DIFFon 12-30-2021 BASO # 0.0 103/ul Normal 0.0-0.1 [facility] Comment on above: Performed By: #### CBC ####[facility] ital Uysqlytjkd499[address] [place], [place] [address]Dr. Yuki Diaz Basophils/100 WBC (Bld) 0.2 % Normal 0.2-2.0 [facility] Comment on above: Performed By: #### CBC ####[facility] ital Sntsoaubzc999[address] [place], [place] [address]Dr. Yuki Diaz EO # 0.1 103/ul Normal 0.0-0.7 [facility] Comment on above: Performed By: #### CBC ####[facility] Hykdfrywdc[address] [place], [place] [address]Dr. Yuki Diaz Eosinophils/100 WBC (Bld) 1.3 % Normal 0.9-7.0 [facility] Comment on above: Performed By: #### CBC ####[facility] Fuuxenhloa66360[address] [place], [place] [address]Dr. Yuki Diaz Erythrocyte distribution width (RBC) [Ratio] 13.9 % Normal 11.0-15.0 [facility] Comment on above: Performed By: #### CBC ####[facility] Igeoqulgof203[address] [place], [place] [address]Dr. Yuki Diaz Hematocrit (Bld) [Volume fraction] 35.6 % Critically low 42.0-54.0 [facility] Comment on above: Performed By: #### CBC ####[facility] Mjspzlliil0289 [place] [address]Dr. Yuki Diaz Hemoglobin (Bld) [Mass/Vol] 11.6 g/dL Critically low 14.0-18.0 [facility] Comment on above: Performed By: #### CBC ####[facility] ital Vefgncpoal1881 [place] [address]Dr. Yuki Diaz IG # 0.02 10e3/ul Normal 0.00-0.03 [facility] Comment on above: Performed By: #### CBC ####[facility] Yjxqesfvud3536 [place] [address]Dr. Yuki Diaz IG % 0.2 % Normal 0.0-0.5 [facility] Comment on above: Performed By: #### CBC ####[facility] Tqbxewqnhz8328 [place] [address]Dr. Yuki Diaz LYMPH # 1.5 103/ul Normal 1.2-3.8 [facility] Comment on above: Performed By: #### CBC ####[facility] Ouxajerfwq8613 [place] [address]Dr. Yuki Diaz Lymphocytes/100 WBC (Bld) 17.6 % Critically low 20.5-60.0 [facility] Comment on above: Performed By: #### CBC ####[facility] Oqnlyihdzr0220 [place] [address]Dr. Yuki Diaz MANUAL DIFF REQ NO Normal [facility] Comment on above: Performed By: #### CBC ####[facility] Msovgpipde7136 [place] [address]Dr. Yuki Diaz MCH (RBC) [Entitic mass] 32.3 pg Normal 25.9-34.0 [facility] Comment on above: Performed By: #### CBC ####[facility] Zremafhbpx4110 [place] [address]Dr. Yuki Diaz MCHC (RBC) [Mass/Vol] 32.6 g/dL Normal 29.9-35.2 [facility] Comment on above: Performed By: #### CBC ####[facility] ital Anljxutura4442 [place] [address]Dr. Yuki Diaz MCV (RBC) [Entitic vol] 99.2 fL Critically high 80.0-94.0 [facility] Comment on above: Performed By: #### CBC ####[facility] ital Kvmpwjcqnk1756 [place] [address]Dr. Yuki Diaz MONO # 0.9 103/ul Critically high 0.3-0.8 [facility] Comment on above: Performed By: #### CBC ####[facility] ital Hoksvvkoon3315 [place] [address]Dr. Yuki Diaz Monocytes/100 WBC (Bld) 10.9 % Normal 1.7-12.0 [facility] Comment on above: Performed By: #### CBC ####[facility] Mdfmnnbieh69[address] [place], [place] [address]Dr. Yuki Diaz NEUT # 5.7 103/ul Normal 1.4-6.5 [facility] Comment on above: Performed By: #### CBC ####[facility] Iwscfszwgh7353 [place] [address]Dr. Yuki Diaz Neutrophils/100 WBC (Bld) 69.8 % Normal 43.0-75.0 [facility] Comment on above: Performed By: #### CBC ####[facility] Hcdliinudi7958 [place] [address]Dr. Yuki Diaz Platelet mean volume (Bld) [Entitic vol] 10.3 fL Normal 9.5-13.5 [facility] Comment on above: Performed By: #### CBC ####[facility] ital Huxgnoqigb8238 [place] [address]Dr. Yuki Diaz PLT 182 103/ul Normal 150-450 [facility] Comment on above: Performed By: #### CBC ####[facility] Nycdzuwfca3791 [place] [address]Dr. Yuki Diaz RBC 3.59 106/ul Critically low 4.70-6.10 [facility] Comment on above: Performed By: #### CBC ####[facility] ital Dzoofsgaya8935 [place] [address]Dr. Yuki Diaz WBC 8.2 103/ul Normal 4.0-11.0 [facility] Comment on above: Performed By: #### CBC ####[facility] ital Ysbitgzrdv5517 [place] [address]Dr. Yuki Diaz POINT OF CARE GLUCOSEon 12-06 Glucose [Mass/Vol] 134 mg/dL Critically high 74-106 [facility] Comment on above: Performed By: #### POCGLUC ####[facility] Nphiaxepnl1076 [place] [address]Dr. Yuki Diaz PROF 14(COMP METB)on 022 Albumin [Mass/Vol] 2.9 g/dL Critically low 3.4-5.0 [facility] Comment on above: Performed By: #### CMP, BNP ####[facility] Htspvweowy[address] [place], [place] [address]Dr. Yuki Diaz Albumin/Globulin [Mass ratio] 0.9 {ratio} Normal [facility] Comment on above: Performed By: #### CMP, BNP ####[facility] Druauctqow520[address] [place], [place] [address]Dr. Yuki Diaz ALP [Catalytic activity/Vol] 87 U/L Normal 46-116 [facility] Comment on above: Performed By: #### CMP, BNP ####[facility] Upbaoobctx972[address] [place], [place] [address]Dr. Yuki Diaz ALT [Catalytic activity/Vol] 92 U/L Critically high 16-63 [facility] Comment on above: Performed By: #### CMP, BNP ####[facility] Xxfwwnwvlq116[address] [place], [place] [address]Dr. Yuki Diaz Anion gap [Moles/Vol] 8.4 mmol/L Normal [facility] Comment on above: Performed By: #### CMP, BNP ####[facility] Eeqnfcwmug636[address] [place], [place] [address]Dr. Yuki Diaz AST [Catalytic activity/Vol] 29 U/L Normal 15-37 [facility] Comment on above: Performed By: #### CMP, BNP ####[facility] Mppxxwckbo1020 [place] [address]Dr. Yuki Diaz Bilirubin [Mass/Vol] 0.8 mg/dL Normal 0.2-1.0 [facility] Comment on above: Performed By: #### CMP, BNP ####[facility] Phvpfdtwyr0219[address] [place], [place] [address]Dr. Yuki Diaz Calcium [Mass/Vol] 8.3 mg/dL Critically low 8.5-10.1 [facility] Comment on above: Performed By: #### CMP, BNP ####[facility] Tghgjoxxzo412[address] [place], [place] [address]Dr. Yuki Diaz Chloride [Moles/Vol] 105 mmol/L Normal 98-107 [facility] Comment on above: Performed By: #### CMP, BNP ####[facility] Tlvvdzxzzs470[address] [place], [place] [address]Dr. Yuki Diaz CO2 [Moles/Vol] 34.1 mmol/L Critically high 21.0-32.0 [facility] Comment on above: Performed By: #### CMP, BNP ####[facility] Kadtkxxvud769[address] [place], [place] [address]Dr. Yuki Diaz Creatinine [Mass/Vol] 1.98 mg/dL Critically high 0.70-1.30 [facility] Comment on above: Performed By: #### CMP, BNP ####[facility] Izbwolipne836[address] [place], [place] [address]Dr. Yuki Joe EGFR-AF LEBANESE 40 mL/min/1.73m2 Critically low >=60 [facility] Comment on above: Performed By: #### CMP, BNP ####[facility] Bzlpyzrsjr147[address] [place], [place] [address]Dr. Yuki Joe EGFR-NON AF LEBANESE 33 mL/min/1.73m2 Critically low >=60 [facility] Comment on above: Performed By: #### CMP, BNP ####[facility] Tdgbukucay0912[address] [place], [place] [address]Dr. Yuki Diaz Globulin (S) [Mass/Vol] 3.4 g/dL Normal [facility] Comment on above: Performed By: #### CMP, BNP ####[facility] Iebvrtfmdw59[address] [place], [place] [address]Dr. Yuki Diaz Glucose [Mass/Vol] 129 mg/dL Critically high 74-106 [facility] Comment on above: Performed By: #### CMP, BNP ####[facility] Kuxtqrisxg394[address] [place], [place] [address]Dr. Yuki Diaz Potassium [Moles/Vol] 3.5 mmol/L Normal 3.5-5.1 [facility] Comment on above: Performed By: #### CMP, BNP ####[facility] Gxwlijyzfz[address] [place], [place] [address]Dr. Yuki Diaz Protein [Mass/Vol] 6.3 g/dL Critically low 6.4-8.2 [facility] Comment on above: Performed By: #### CMP, BNP ####[facility] Tyqikvuxfv950[address] [place], [place] [address]Dr. Yuki Diaz Sodium [Moles/Vol] 144 mmol/L Normal 136-145 [facility] Comment on above: Performed By: #### CMP, BNP ####[facility] Fdngqmaezo588[address] [place], [place] [address]Dr. Yuki Diaz Urea nitrogen [Mass/Vol] 37.0 mg/dL Critically high 7.0-18.0 [facility] Comment on above: Performed By: #### CMP, BNP ####[facility] Koqzfgojgx08[address] [place], [place] [address]Dr. Yuki Diaz Urea nitrogen/Creatin ine [Mass ratio] 18.7 mg/mg Normal [facility] Comment on above: Performed By: #### CMP, BNP ####[facility] Tkohwcdwbh109[address] [place], [place] [address]Dr. Yuki Diaz BNPon 12-29-2021 Natriuretic peptide B (Bld) [Mass/Vol] 2335.0 pg/mL Critically high <=1,800.0 [facility] Comment on above: Result Comment: repeated Performed By: #### C MP, BNP ####[facility] Evlzkibtaf9366 [place] [address]Dr. Yuki Diaz CBC AUTO DIFFon 12-29-2021 BASO # 0.0 103/ul Normal 0.0-0.1 [facility] Comment on above: Performed By: #### CBC ####[facility] Kdalpvpkjl[address] [place], [place] [address]Dr. Yuki Diaz Basophils/100 WBC (Bld) 0.3 % Normal 0.2-2.0 [facility] Comment on above: Performed By: #### CBC ####[facility] Rfalzsfkag[address] [place], [place] [address]Dr. Yuki Diaz EO # 0.1 103/ul Normal 0.0-0.7 [facility] Comment on above: Performed By: #### CBC ####[facility] Viojbtgxsb[address] [place] [address]. Yuki Diaz Eosinophils/100 WBC (Bld) 1.4 % Normal 0.9-7.0 [facility] Comment on above: Performed By: #### CBC ####[facility] Bgzgcnrjxj16[address] [place], [place] [address]Dr. Yuki Diaz Erythrocyte distribution width (RBC) [Ratio] 14.2 % Normal 11.0-15.0 [facility] Comment on above: Performed By: #### CBC ####[facility] Xowfdhmpjd5697 [place] [address]Dr. Yuki Diaz Hematocrit (Bld) [Volume fraction] 34.3 % Critically low 42.0-54.0 [facility] Comment on above: Performed By: #### CBC ####[facility] Pikjlroxtq8485 [place] [address]Dr. Yuki Diaz Hemoglobin (Bld) [Mass/Vol] 11.0 g/dL Critically low 14.0-18.0 [facility] Comment on above: Performed By: #### CBC ####[facility] Flcwiuckad[address] [place], [place] [address]Dr. Monsealyssa Diaz IG # 0.03 10e3/ul Normal 0.00-0.03 [facility] Comment on above: Performed By: #### CBC ####[facility] Shzkfyyxhy1869 [place] [address]Dr. Yuki Diaz IG % 0.4 % Normal 0.0-0.5 [facility] Comment on above: Performed By: #### CBC ####[facility] Mwahsunucw9832 [place] [address]Dr. Yuki Diaz LYMPH # 1.3 103/ul Normal 1.2-3.8 [facility] Comment on above: Performed By: #### CBC ####[facility] Lamcfuitro2444 [place] [address]Dr. Yuki Diaz Lymphocytes/100 WBC (Bld) 18.5 % Critically low 20.5-60.0 [facility] Comment on above: Performed By: #### CBC ####[facility] Mgwxuglyci6854 [place] [address]Dr. Yuki Diaz MANUAL DIFF REQ NO Normal [facility] Comment on above: Performed By: #### CBC ####[facility] Mkheuwtfou[address] [place] [address]Dr. Yuki Diaz MCH (RBC) [Entitic mass] 31.7 pg Normal 25.9-34.0 [facility] Comment on above: Performed By: #### CBC ####[facility] Ebetcqwevx7651 [place] [address]Dr. Yuki Diaz MCHC (RBC) [Mass/Vol] 32.1 g/dL Normal 29.9-35.2 [facility] Comment on above: Performed By: #### CBC ####[facility] Drpznskfqx2306 [place] [address]Dr. Yuki Diaz MCV (RBC) [Entitic vol] 98.8 fL Critically high 80.0-94.0 [facility] Comment on above: Performed By: #### CBC ####[facility] Pdfqqlozhw7780 [place] [address]Dr. Yuki Diaz MONO # 0.7 103/ul Normal 0.3-0.8 [facility] Comment on above: Performed By: #### CBC ####[facility] ital Ifuwqnxxfl7641 [place] [id number]. Yuki Diaz Monocytes/100 WBC (Bld) 10.6 % Normal 1.7-12.0 [facility] Comment on above: Performed By: #### CBC ####[facility] ital Vhhyglyuai0369 [place] [id number]. Yuki Diaz NEUT # 4.8 103/ul Normal 1.4-6.5 [facility] Comment on above: Performed By: #### CBC ####[facility] ital Qyloiqhuqg7635 [place] [address]Dr. Yuki Diaz Neutrophils/100 WBC (Bld) 68.8 % Normal 43.0-75.0 [facility] Comment on above: Performed By: #### CBC ####[facility] Iphykpdyqg2578 [place] [address]Dr. Yuki Diaz Platelet mean volume (Bld) [Entitic vol] 10.5 fL Normal 9.5-13.5 [facility] Comment on above: Performed By: #### CBC ####[facility] ital Pyuzpqxeyh7475 [place] [address]Dr. Yuki Diaz PLT 183 103/ul Normal 150-450 [facility] Comment on above: Performed By: #### CBC ####[facility] Hqwrerunjz1576 [place] [address]Dr. Yuki Diaz RBC 3.47 106/ul Critically low 4.70-6.10 [facility] Comment on above: Performed By: #### CBC ####[facility] Danlvvsvpq0898 [place] [address]Dr. Yuki Diaz WBC 7.0 103/ul Normal 4.0-11.0 [facility] Comment on above: Performed By: #### CBC ####[facility] Yrydcpyaka1228 [place] [address]Dr. Yuki Diaz CULTURE URINEon 12-29-2021 CULTURE URINE Culture Observations : NO GROWTH. Normal [facility] Comment on above: Performed By: #### URCX ####[facility] Lswrywaclh4526 [place] [id number]. Yuki Diaz ECHO LIMITED STUDYon 022 ECHO LIMITED STUDY Normal [facility] POINT OF CARE GLUCOSEon 12-06 Glucose [Mass/Vol] 190 mg/dL Critically high 74-106 [facility] Comment on above: Performed By: #### POCGLUC ####[facility] Jwodqgffhw0449 [place] [address]Dr. Yuki Diaz Glucose [Mass/Vol] 141 mg/dL Critically high 74-106 [facility] Comment on above: Performed By: #### POCGLUC ####[facility] Eychrsifcs7870 [place] [address]Dr. Yuki Diaz Glucose [Mass/Vol] 143 mg/dL Critically high 74-106 [facility] Comment on above: Performed By: #### POCGLUC ####[facility] Sllkncfswr1522 [place] [address]Dr. Yuki Diaz PROF 14(COMP METB)on 022 Albumin [Mass/Vol] 2.5 g/dL Critically low 3.4-5.0 [facility] Comment on above: Performed By: #### CMP, BNP ####[facility] Imxlvesoww[address] [place], [place] [address]Dr. Yuki Diaz Albumin/Globulin [Mass ratio] 0.8 {ratio} Normal [facility] Comment on above: Performed By: #### CMP, BNP ####[facility] Aqmxxbkejk2278 [place] [address]Dr. Yuki Diaz ALP [Catalytic activity/Vol] 77 U/L Normal 46-116 [facility] Comment on above: Performed By: #### CMP, BNP ####[facility] Bzdgczwbfx4746 [place] [address]Dr. Yuki Diaz ALT [Catalytic activity/Vol] 103 U/L Critically high 16-63 [facility] Comment on above: Performed By: #### CMP, BNP ####[facility] Ksgyddaqss4292 [place] [id number]. Yuki Diaz Anion gap [Moles/Vol] 12.3 mmol/L Normal [facility] Comment on above: Performed By: #### CMP, BNP ####[facility] Hlyxjuzxwq0553 [place] [address]Dr. Yuki Joe AST [Catalytic activity/Vol] 41 U/L Critically high 15-37 [facility] Comment on above: Performed By: #### CMP, BNP ####[facility] Bgstpfuzhk8526 [place] [address]Dr. Yuki Diaz Bilirubin [Mass/Vol] 0.7 mg/dL Normal 0.2-1.0 [facility] Comment on above: Performed By: #### CMP, BNP ####[facility] Ygpafrxsux[address] [place], [place] [address]Dr. Yuki Diaz Calcium [Mass/Vol] 8.2 mg/dL Critically low 8.5-10.1 [facility] Comment on above: Performed By: #### CMP, BNP ####[facility] Hxdqbjzyuc[address] [place], [place] [address]Dr. Yuki Diaz Chloride [Moles/Vol] 108 mmol/L Critically high 98-107 [facility] Comment on above: Performed By: #### CMP, BNP ####[facility] Bavjgwofdv016[address] [place], [place] [address]Dr. Yuki Diaz CO2 [Moles/Vol] 28.4 mmol/L Normal 21.0-32.0 [facility] Comment on above: Performed By: #### CMP, BNP ####[facility] Malzdwjkus337[address] [place], [place] [address]Dr. Yuki Diaz Creatinine [Mass/Vol] 1.74 mg/dL Critically high 0.70-1.30 [facility] Comment on above: Performed By: #### CMP, BNP ####[facility] Vrkknirfer7[address] [place], [place] [address]Dr. Yuki Diaz EGFR-AF LEBANESE 46 mL/min/1.73m2 Critically low >=60 [facility] Comment on above: Performed By: #### CMP, BNP ####[facility] Jctqxsohfz5[address] [place], [place] [address]Dr. Yuki Diaz EGFR-NON AF LEBANESE 38 mL/min/1.73m2 Critically low >=60 [facility] Comment on above: Performed By: #### CMP, BNP ####[facility] Yzjnpzsnsk5403 [place] [address]Dr. Monsealyssa Joe Globulin (S) [Mass/Vol] 3.1 g/dL Normal [facility] Comment on above: Performed By: #### CMP, BNP ####[facility] Oaholelfka[address] [place], [place] [address]Dr. Monsealyssa Joe Glucose [Mass/Vol] 103 mg/dL Normal 74-106 [facility] Comment on above: Performed By: #### CMP, BNP ####[facility] Duootwoold7[address] [place], [place] [address]Dr. Yuki Diaz Potassium [Moles/Vol] 3.7 mmol/L Normal 3.5-5.1 [facility] Comment on above: Performed By: #### CMP, BNP ####[facility] Comtoyolqe606[address] [place], [place] [address]Dr. Yuki Diaz Protein [Mass/Vol] 5.6 g/dL Critically low 6.4-8.2 [facility] Comment on above: Performed By: #### CMP, BNP ####[facility] Oucfjukdzh[address] [place], [place] [address]Dr. Yuki Diaz Sodium [Moles/Vol] 145 mmol/L Normal 136-145 [facility] Comment on above: Performed By: #### CMP, BNP ####[facility] Pfbxutltnw[address] [place], [place] [address]Dr. Monsealyssa Joe Urea nitrogen [Mass/Vol] 33.0 mg/dL Critically high 7.0-18.0 [facility] Comment on above: Performed By: #### CMP, BNP ####[facility] Hfvfxjbngk[address] [place], [place] [address]Dr. Yuki Diaz Urea nitrogen/Creatin ine [Mass ratio] 19.0 mg/mg Normal [facility] Comment on above: Performed By: #### CMP, BNP ####[facility] Eftapdnaam[address] [place], [place] [address]Dr. Yuki Diaz BNPon 12-28-2021 Natriuretic peptide B (Bld) [Mass/Vol] 1699.0 pg/mL Normal <=1,800.0 [facility] Comment on above: Performed By: #### TSH, BNP, CMP ####[facility] Hkwbbslegq0489 [place] [id number]. Yuki Diaz CARDIAC RACHEL 3-6on 2 CK [Catalytic activity/Vol] 107 U/L Normal 39-308 [facility] Comment on above: Performed By: #### CMREP ####[facility] Hrydwykrdz7776 [place] [id number]. Yuki Diaz CK [Catalytic activity/Vol] 93 U/L Normal 39-308 [facility] Comment on above: Performed By: #### CMREP ####[facility] Nceirmzgra5868 [place] [id number]. Yuki Diaz CK.MB [Mass/Vol] 3.26 ng/mL Normal <=3.60 [facility] Comment on above: Performed By: #### CMREP ####[facility] Sirmtfkned1831 [place] [id number]. Yuki Diaz CK.MB [Mass/Vol] 2.99 ng/mL Normal <=3.60 [facility] Comment on above: Performed By: #### CMREP ####[facility] Qrpfwqgsqa8050 [place] [id number]. Yuki Diaz HSTROP 27.1 pg/mL Normal 4.0-76.1 [facility] Comment on above: Result Comment: CUT-OFF POINTS HAVE BEEN ESTABLISHED BASED ON THE FOURTH UNIVERSAL DEFINITIONS OF MYOCARDIALINFARCTION. THE UPPER REFERENCE LIMIT (URL) OF TROPONIN, DEFINED THE 99TH PERCENTILE OFcTnI DISTRIBUTION IN A REFERENCE POPULATION, HAS BEEN CONFIRMED THE DECISION THRESHOLDFOR NE DIAGNOSIS. Performed By: #### C MREP ####[facility] Sjgeoolnvw3805 [place] [id number]. Yuki Diaz HSTROP 30.7 pg/mL Normal 4.0-76.1 [facility] Comment on above: Result Comment: CUT-OFF POINTS HAVE BEEN ESTABLISHED BASED ON THE FOURTH UNIVERSAL DEFINITIONS OF MYOCARDIALINFARCTION. THE UPPER REFERENCE LIMIT (URL) OF TROPONIN, DEFINED THE 99TH PERCENTILE OFcTnI DISTRIBUTION IN A REFERENCE POPULATION, HAS BEEN CONFIRMED THE DECISION THRESHOLDFOR NE DIAGNOSIS. Performed By: #### C MREP ####[facility] Bjprkfgqhw7799 [place] [id number]. Monsealyssa Joe CARDIAC RACHEL ADMITon 022 CK [Catalytic activity/Vol] 101 U/L Normal 39-308 [facility] Comment on above: Performed By: #### CMADM ####[facility] Obtkewcmzr1877 [place] [address]Dr. Monsealyssa Diaz CK.MB [Mass/Vol] 3.35 ng/mL Normal <=3.60 [facility] Comment on above: Performed By: #### CMADM ####[facility] Terafwpbqr[address] [place], [place] [address]Dr. Monsealyssa Diaz HSTROP 27.6 pg/mL Normal 4.0-76.1 [facility] Comment on above: Result Comment: CUT-OFF POINTS HAVE BEEN ESTABLISHED BASED ON THE GENERAL [facility] UNIVERSAL DEFINITIONS OF MYOCARDIALINFARCTION. THE UPPER REFERENCE LIMIT (URL) OF TROPONIN, DEFINED THE 99TH PERCENTILE OFcTnI DISTRIBUTION IN A REFERENCE POPULATION, HAS BEEN CONFIRMED THE DECISION THRESHOLDFOR NE DIAGNOSIS. Performed By: #### C MADM ####[facility] Xbovsaphoa[address] [place], [place] [address]Dr. Yuki Joe DILSHAD 153 ng/mL Critically high 16-96 [facility] Comment on above: Performed By: #### CMADM ####[facility] Xhhvnnqlwn7084 [place] [id number]. Yuki Diaz CBC AUTO DIFFon 12-28-2021 BASO # 0.0 103/ul Normal 0.0-0.1 [facility] Comment on above: Performed By: #### CBC ####[facility] Exbzorbyze[address] [place], [place] [address]Dr. Yuki Diaz Basophils/100 WBC (Bld) 0.1 % Critically low 0.2-2.0 [facility] Comment on above: Performed By: #### CBC ####[facility] ital Sljhltomnn9210 [place] [address]Dr. Yuki Diaz EO # 0.1 103/ul Normal 0.0-0.7 [facility] Comment on above: Performed By: #### CBC ####[facility] ital Jacumxinak1836 [place] [address]Dr. Yuki Diaz Eosinophils/100 WBC (Bld) 0.8 % Critically low 0.9-7.0 [facility] Comment on above: Performed By: #### CBC ####[facility] ital Cenotmmofy6461 [place] [address]Dr. Yuki Diaz Erythrocyte distribution width (RBC) [Ratio] 14.2 % Normal 11.0-15.0 [facility] Comment on above: Performed By: #### CBC ####[facility] ital Luiupnqnio[address] [place], [place] [address]Dr. Yuki Diaz Hematocrit (Bld) [Volume fraction] 38.5 % Critically low 42.0-54.0 [facility] Comment on above: Performed By: #### CBC ####[facility] Rzjjfzxnrl[address] [place], [place] [address]Dr. Yuki Diaz Hemoglobin (Bld) [Mass/Vol] 12.3 g/dL Critically low 14.0-18.0 [facility] Comment on above: Performed By: #### CBC ####[facility] ital Iqfadloqqp8796 [place] [address]Dr. Yuki Diaz IG # 0.06 10e3/ul Critically high 0.00-0.03 [facility] Comment on above: Performed By: #### CBC ####[facility] Mcpalvzgfu0199 [place] [address]Dr. Yuki Diaz IG % 0.7 % Critically high 0.0-0.5 [facility] Comment on above: Performed By: #### CBC ####[facility] ital Vosmihjlrm[address] [place], [place] [address]DrBebo Monsealyssa Diaz LYMPH # 1.0 103/ul Critically low 1.2-3.8 [facility] Comment on above: Performed By: #### CBC ####[facility] ital Pszxxdsafw7650 [place] [address]Dr. Monsealyssa Diaz Lymphocytes/100 WBC (Bld) 10.7 % Critically low 20.5-60.0 [facility] Comment on above: Performed By: #### CBC ####[facility] ital Lncpvacokh7735 [place] [address]DrBebo Diaz MANUAL DIFF REQ NO Normal [facility] Comment on above: Performed By: #### CBC ####[facility] ital Vvxetzymux2068 [place] [address]DrBebo Diaz MCH (RBC) [Entitic mass] 31.9 pg Normal 25.9-34.0 [facility] Comment on above: Performed By: #### CBC ####[facility] ital Nbfrhovxqk5326 [place] [address]Dr. Yuki Diaz MCHC (RBC) [Mass/Vol] 31.9 g/dL Normal 29.9-35.2 [facility] Comment on above: Performed By: #### CBC ####[facility] ital Gvbyoldtpv3855 [place] [address]DrBebo Diaz MCV (RBC) [Entitic vol] 99.7 fL Critically high 80.0-94.0 [facility] Comment on above: Performed By: #### CBC ####[facility] ital Ijndaitesy1085 [place] [address]DrBebo Diaz MONO # 0.7 103/ul Normal 0.3-0.8 [facility] Comment on above: Performed By: #### CBC ####[facility] ital Ozxingmhmm8449 [place] [address]DrBebo Diaz Monocytes/100 WBC (Bld) 7.2 % Normal 1.7-12.0 [facility] Comment on above: Performed By: #### CBC ####[facility] ital Egaooeoxvs2432 [place] [address]DrBebo Diaz NEUT # 7.4 103/ul Critically high 1.4-6.5 [facility] Comment on above: Performed By: #### CBC ####[facility] Ecqjglqzus2030 [place] [id number]. Yuki Diaz Neutrophils/100 WBC (Bld) 80.5 % Critically high 43.0-75.0 [facility] Comment on above: Performed By: #### CBC ####[facility] ital Tdlzkdtmtr3438 [place] [id number]. Yuki Diaz Platelet mean volume (Bld) [Entitic vol] 10.0 fL Normal 9.5-13.5 [facility] Comment on above: Performed By: #### CBC ####[facility] Hrieepaixz0314 [place] [address]Dr. Yuki Diaz PLT 194 103/ul Normal 150-450 [facility] Comment on above: Performed By: #### CBC ####[facility] Wqkvztduks7314 [place] [address]Dr. Yuki Diaz RBC 3.86 106/ul Critically low 4.70-6.10 [facility] Comment on above: Performed By: #### CBC ####[facility] Ttjduslcge5983 [place] [id number]. Yuki Diaz WBC 9.2 103/ul Normal 4.0-11.0 [facility] Comment on above: Performed By: #### CBC ####[facility] Kccedjtuza8674 [place] [id number]. Yuki Diaz [facility]on 12-06 SARS-CoV-2 (COVID-19) RNA JARVIS+probe Ql (Unsp spec) Not detected Normal NOT DETECTED [facility] Comment on above: Result Comment: When diagnostic testing is negative, the possibility of a false negative should be considered inthe context of a patient's recent exposures and the presence of clinical signs and symptomsconsistent with SARS-CoV-2.This test is not yet approved or cleared by the [place] Food and Drug Administration (FDA).This test was developed by [employer], [place], [place]. The performance characteristics ofthis test were validated by [facility]. The results are not intended to beused as the sole means for clinical diagnosis or patient management decisions. The [facility] is authorized under Clinical Laboratory [...] for this test is supported by the [employer] of Health and Human Service's declaration that [...] be used). Performed By: #### C VDTB ####[facility] Qempzxmtpg4336 [place] [address]Dr. Yuki Diaz ER URINE PROFILEon 2 Bilirubin Ql (U) Negative Normal NEGATIVE [facility] Comment on above: Performed By: #### ERUR ####[facility] Pbqwhhbjhv9988 [place] [address]Dr. Yuki Diaz Clarity (U) CLEAR Normal CLEAR [facility] Comment on above: Performed By: #### ERUR ####[facility] Lonnogbrsl4848 [place] [address]Dr. Yuki Diaz Color (U) YELLOW Normal YELLOW [facility] Comment on above: Performed By: #### ERUR ####[facility] Dfeetmgwal3247 [place] [phone]. Yuki Diaz ERUAHD A micrscopic examina tion will be performed if indicated. Normal [facility] Comment on above: Performed By: #### ERUR ####[facility] Ivcoijnzgg7907 [place] [id number]. Yuki Diaz Glucose Ql (U) Negative Normal NEGATIVE [facility] Comment on above: Performed By: #### ERUR ####[facility] Byokbvdszt0569 [place] [address]Dr. Yuki Diaz Hemoglobin Ql (U) Negative Normal NEGATIVE [facility] Comment on above: Performed By: #### ERUR ####[facility] Vfdfdvclmv2739 [place] [address]Dr. Yuki Diaz Ketones Ql (U) Negative Normal NEGATIVE [facility] Comment on above: Performed By: #### ERUR ####[facility] Ftgjckqlsw1646 [place] [address]Dr. Yuki Diaz LEUKOCYTES Negative Normal NEGATIVE [facility] Comment on above: Performed By: #### ERUR ####[facility] Wgrtospgpz4455 [place] [address]Dr. Yuki Diaz Nitrite Ql (U) Negative Normal NEGATIVE [facility] Comment on above: Performed By: #### ERUR ####[facility] pital Lwxfsygbdh6141 [place] [address]Dr. Yuki Diaz pH (U) 5.5 [pH] Normal 5-9 [facility] Comment on above: Performed By: #### ERUR ####[facility] Ghnddcveeh3432 [place] [address]Dr. Yuki Diaz Protein (U) [Mass/Vol] 100 mg/dL Abnormal NEGATIVE/ TRACE [facility] Comment on above: Performed By: #### ERUR ####[facility] pital Owdvixhdtl2828 [place] [address]Dr. Yuki Diaz SPEC GRAVITY >=1.030 Abnormal 1.005-<=1. 025 [facility] Comment on above: Performed By: #### ERUR ####[facility] Ycerkkduxf1783 [place] [address]Dr. Yuki Diaz UR MICRO IND NOT INDICATED Normal [facility] Comment on above: Performed By: #### ERUR ####[facility] Nlduwucvxh4793 [place] [address]Dr. Yuki Diaz Urobilinogen Qn (U) 0.2 {Chidi'U}/dL Normal 0.2 - 1.0 [facility] Comment on above: Performed By: #### ERUR ####[facility] pital Tugeudgmyz[address] [place], [place] [address]Dr. Yuki Diaz LACTATE/LACTIC ACIDon 2021 Lactate [Moles/Vol] 2.2 mmol/L Critically high 0.4-1.9 [facility] Comment on above: Performed By: #### LACT ####[facility] pital Wdbqqxeuyx45[address] [place], [place] [address]Dr. Yuki Diaz POINT OF CARE GLUCOSEon 12-06 Glucose [Mass/Vol] 167 mg/dL Critically high 74-106 [facility] Comment on above: Performed By: #### POCGLUC ####[facility] Wwdlumfqfz[address] [place], [place] [address]Dr. Yuki Diaz Glucose [Mass/Vol] 183 mg/dL Critically high 74-106 [facility] Comment on above: Performed By: #### POCGLUC ####[facility] Zqsnrvtalk[address] [place], [place] [address]Dr. Yuki Diaz PROF 14(COMP METB)on 022 Albumin [Mass/Vol] 2.9 g/dL Critically low 3.4-5.0 [facility] Comment on above: Performed By: #### TSH, BNP, CMP ####[facility] Dqdxobolsh3052 [place] [address]Dr. Yuki Diaz Albumin/Globulin [Mass ratio] 0.9 {ratio} Normal [facility] Comment on above: Performed By: #### TSH, BNP, CMP ####[facility] Hegkypwadr[address] [place], [place] [address]Dr. Yuki Diaz ALP [Catalytic activity/Vol] 83 U/L Normal 46-116 [facility] Comment on above: Performed By: #### TSH, BNP, CMP ####[facility] Pkffyeyuvy[address] [place], [place] [address]Dr. Yuki Diaz ALT [Catalytic activity/Vol] 98 U/L Critically high 16-63 [facility] Comment on above: Performed By: #### TSH, BNP, CMP ####[facility] Yslggbjpfg7875 [place] [address]Dr. Yuki Diaz Anion gap [Moles/Vol] 11.6 mmol/L Normal [facility] Comment on above: Performed By: #### TSH, BNP, CMP ####[facility] Wmbphrylxg4797 [place] [address]Dr. Yuki Diaz AST [Catalytic activity/Vol] 51 U/L Critically high 15-37 [facility] Comment on above: Performed By: #### TSH, BNP, CMP ####[facility] Apsstkdygf7026 [place] [address]Dr. Yuki Diaz Bilirubin [Mass/Vol] 0.9 mg/dL Normal 0.2-1.0 [facility] Comment on above: Performed By: #### TSH, BNP, CMP ####[facility] Ljqxqtnfir5111 [place] [address]Dr. Yuki Diaz Calcium [Mass/Vol] 8.3 mg/dL Critically low 8.5-10.1 [facility] Comment on above: Performed By: #### TSH, BNP, CMP ####[facility] Amtivvpunm4886 [place] [address]Dr. Yuki Diaz Chloride [Moles/Vol] 106 mmol/L Normal 98-107 [facility] Comment on above: Performed By: #### TSH, BNP, CMP ####[facility] Ifpildsggm0445 [place] [address]Dr. Yuki Diaz CO2 [Moles/Vol] 28.2 mmol/L Normal 21.0-32.0 [facility] Comment on above: Performed By: #### TSH, BNP, CMP ####[facility] Widkezufyv2674 [place] [address]Dr. Yuki Diaz Creatinine [Mass/Vol] 1.84 mg/dL Critically high 0.70-1.30 [facility] Comment on above: Performed By: #### TSH, BNP, CMP ####[facility] Yhndkzotun9866 [place] [address]Dr. Yuki Diaz EGFR-AF LEBANESE 43 mL/min/1.73m2 Critically low >=60 [facility] Comment on above: Performed By: #### TSH, BNP, CMP ####[facility] Ulysrvvaba5423 [place] [address]Dr. Yuki Diaz EGFR-NON AF LEBANESE 36 mL/min/1.73m2 Critically low >=60 [facility] Comment on above: Performed By: #### TSH, BNP, CMP ####[facility] Tskudwznif2475 [place] [address]Dr. Yuki Diaz Globulin (S) [Mass/Vol] 3.3 g/dL Normal [facility] Comment on above: Performed By: #### TSH, BNP, CMP ####[facility] Zcuzsqylzs[address] [place], [place] [address]Dr. Yuki Diaz Glucose [Mass/Vol] 202 mg/dL Critically high 74-106 [facility] Comment on above: Performed By: #### TSH, BNP, CMP ####[facility] Gyityhlmzr[address] [place], [place] [address]Dr. Yuki Diaz Potassium [Moles/Vol] 3.8 mmol/L Normal 3.5-5.1 [facility] Comment on above: Performed By: #### TSH, BNP, CMP ####[facility] Zcoxerdgrn[address] [place] [address]Dr. Yuki Diaz Protein [Mass/Vol] 6.2 g/dL Critically low 6.4-8.2 [facility] Comment on above: Performed By: #### TSH, BNP, CMP ####[facility] Zkreb[address] [place], [place] [address]Dr. Yuki Diaz Sodium [Moles/Vol] 142 mmol/L Normal 136-145 [facility] Comment on above: Performed By: #### TSH, BNP, CMP ####[facility] Disicklnos[address] [place], [place] [address]Dr. Yuki Diaz Urea nitrogen [Mass/Vol] 28.0 mg/dL Critically high 7.0-18.0 [facility] Comment on above: Performed By: #### TSH, BNP, CMP ####[facility] C[address] [place], [place] [address]Dr. Yuki Diaz Urea nitrogen/Creatin ine [Mass ratio] 15.2 mg/mg Normal [facility] Comment on above: Performed By: #### TSH, BNP, CMP ####[facility] Urgebrhaoa[address] [place] [address]Dr. Yuki Diaz TSHon 12-28-2021 TSH 1.808 uIU/mL Normal 0.358-3.74 0 [facility] Comment on above: Performed By: #### TSH, BNP, CMP ####[facility] Uq[address] [place] [address]Dr. Yuki Diaz TSH RANGE SEE BELOW Normal [facility] Comment on above: Result Comment: <0.34 UIU/ml HYPERTHYROI D 0.34-5.60 UIU/ml EUTHYROID >5.60 UIU/ml HYPOTHYROID Performed By: #### T SH, BNP, CMP ####[facility] Pldwic[address] [place], [place] [address]Dr. Yuki Diaz XR CHEST 1 Von 12-28-2021 XR CHEST 1 V Normal [facility] BNPon 12-22-2021 Natriuretic peptide B (Bld) [Mass/Vol] 2907.0 pg/mL Critically high <=1,800.0 [facility] Comment on above: Performed By: #### BNP ####[facility] Ahxjhvpzal[address] [place] [address]Dr. Yuki Joe PROF 14(COMP METB)on 022 Albumin [Mass/Vol] 3.0 g/dL Critically low 3.4-5.0 [facility] Comment on above: Performed By: #### CMP ####[facility] ital Ffxakmmjkt[address] [place] [address]Dr. Yuki Diaz Albumin/Globulin [Mass ratio] 0.9 {ratio} Normal [facility] Comment on above: Performed By: #### CMP ####[facility] Xyirnhoyww[address] [place] [address]Dr. Monsealyssa Diaz ALP [Catalytic activity/Vol] 94 U/L Normal 46-116 [facility] Comment on above: Performed By: #### CMP ####[facility] ital Iiezpxuoyw1435 [place] [id number]. Yuki Diaz ALT [Catalytic activity/Vol] 39 U/L Normal 16-63 [facility] Comment on above: Performed By: #### CMP ####[facility] ital Gwjtxtbtcq6334 [place] [id number]. Yuki Diaz Anion gap [Moles/Vol] 13.4 mmol/L Normal [facility] Comment on above: Performed By: #### CMP ####[facility] ital Ysmuoiowsv76[address] [place] [id number]. Yuki Diaz AST [Catalytic activity/Vol] 11 U/L Critically low 15-37 [facility] Comment on above: Performed By: #### CMP ####[facility] Uciqngjjpf[address] [place] [address]Dr. Yuki Diaz Bilirubin [Mass/Vol] 0.5 mg/dL Normal 0.2-1.0 [facility] Comment on above: Performed By: #### CMP ####[facility] Wvltscjwmv37[address] [place] [address]Dr. Yuki Diaz Calcium [Mass/Vol] 8.5 mg/dL Normal 8.5-10.1 [facility] Comment on above: Performed By: #### CMP ####[facility] Fpekdouxyn[address] [place] [address]Dr. Yuki Diaz Chloride [Moles/Vol] 110 mmol/L Critically high 98-107 [facility] Comment on above: Performed By: #### CMP ####[facility] ital Azxjufqhap85[address] [place] [address]Dr. Yuki Diaz CO2 [Moles/Vol] 26.1 mmol/L Normal 21.0-32.0 [facility] Comment on above: Performed By: #### CMP ####[facility] ital Hihnnzfjba5[address] [place] [address]Dr. Yuki Diaz Creatinine [Mass/Vol] 1.71 mg/dL Critically high 0.70-1.30 [facility] Comment on above: Performed By: #### CMP ####[facility] ital Gjwoxwdwfs668[address] [place] [phone]. Yuki Diaz EGFR-AF LEBANESE 47 mL/min/1.73m2 Critically low >=60 [facility] Comment on above: Performed By: #### CMP ####[facility] ital Snxavtlfvr4865 [place] [phone]. Yuki Diaz EGFR-NON AF LEBANESE 39 mL/min/1.73m2 Critically low >=60 [facility] Comment on above: Performed By: #### CMP ####[facility] ital Jejdnbjcim6064 [place] [phone]. Yuki Diaz Globulin (S) [Mass/Vol] 3.4 g/dL Normal [facility] Comment on above: Performed By: #### CMP ####[facility] ital Kntrjcbgez2025 [place] [phone]. Yuki Diaz Glucose [Mass/Vol] 211 mg/dL Critically high 74-106 [facility] Comment on above: Performed By: #### CMP ####[facility] ital Zokohktrix3192 [place] [phone]. Yuki Diaz Potassium [Moles/Vol] 4.5 mmol/L Normal 3.5-5.1 [facility] Comment on above: Performed By: #### CMP ####[facility] ital Tifkccfulw9309 [place] [phone]. Yuki Diaz Protein [Mass/Vol] 6.4 g/dL Normal 6.4-8.2 [facility] Comment on above: Performed By: #### CMP ####[facility] ital Bjguohfcqm0107 [place] [phone]. Yuki Diaz Sodium [Moles/Vol] 145 mmol/L Normal 136-145 [facility] Comment on above: Performed By: #### CMP ####[facility] ital Perefqjurd[address] [place] [address]Dr. Yuki Diaz Urea nitrogen [Mass/Vol] 33.0 mg/dL Critically high 7.0-18.0 [facility] Comment on above: Performed By: #### CMP ####[facility] ital Oyliprprwc0729 [place], [place] [address]Gt. Yuki Diaz Urea nitrogen/Creatin ine [Mass ratio] 19.3 mg/mg Normal [facility] Comment on above: Performed By: #### CMP ####[facility] Jhamnquwsx9542 [place], [place] [address]Gt. Yuki Diaz Lab Reportson 12-15-2021 Lab Reports [id number]:127 Normal [facility] BASIC METABOLIC PANELon 08-0 Calcium mass conc 9.1 mg/dL Normal 8.6-10.3 [facility] Comment on above: Order Comment: No: Do not add to previou s draw Performed By: #### 5 0103 ####[facility] [place] [address], [facility] Chloride molar conc 104 mmol/L Normal 98-107 [facility] Comment on above: Order Comment: No: Do not add to previou s draw Performed By: #### 5 0103 ####[facility] [place] [address], [facility] CO2 molar conc 27 mmol/L Normal 21-31 [facility] Comment on above: Order Comment: No: Do not add to previou s draw Performed By: #### 5 0103 ####[facility] [place] [address], [facility] Creatinine mass conc 1.29 mg/dL Normal 0.70-1.30 [facility] Comment on above: Order Comment: No: Do not add to previou s draw Performed By: #### 5 0103 ####[facility] [place] [address], [facility] GFR/1.73 sq M predicted among blacks MDRD vol rate/area (S/P/Bld) mL/min/{1.73_m2} Normal >60 [facility] Comment on above: Order Comment: No: Do not add to previou s draw Result Comment: Calc ulation may not be valid for patients over 70 years Performed By: #### 5 0103 ####[facility] [place] [address], [facility] GFR/1.73 sq M predicted among non-blacks MDRD vol rate/area (S/P/Bld) 54 ml/min/1.73sq m Abnormal >60 [facility] Comment on above: Order Comment: No: Do not add to previou s draw Result Comment: Calc ulation may not be valid for patients over 70 years Performed By: #### 5 0103 ####[facility] [place] [address], [facility] Glucose mass conc 109 mg/dL High 70-100 [facility] Comment on above: Order Comment: No: Do not add to previou s draw Performed By: #### 5 0103 ####[facility] [place] [address], [facility] Potassium molar conc 3.6 mmol/L Normal 3.5-5.1 [facility] Comment on above: Order Comment: No: Do not add to previou s draw Performed By: #### 5 0103 ####[facility] [place] [address], [facility] Sodium molar conc 139 mmol/L Normal 136-145 [facility] Comment on above: Order Comment: No: Do not add to previou s draw Performed By: #### 5 0103 ####[facility] [place] [address], [facility] Urea nitrogen mass conc 19 mg/dL Normal 7-25 [facility] Comment on above: Order Comment: No: Do not add to previou s draw Performed By: #### 5 0103 ####[facility] [place] [address], [facility] CBC COMPLETE BLOOD COUNTon 0 03-10-2018 Erythrocyte distribution width Auto Ratio (RBC) 13.2 % Normal 11.5-15.0 [facility] Comment on above: Order Comment: No: Do not add to previou s draw Performed By: #### 5 0103 ####[facility] Hematocrit Auto Volume Fraction (Bld) 42.2 % Normal 39.0-50.0 [facility] Comment on above: Order Comment: No: Do not add to previou s draw Performed By: #### 5 0103 ####[facility] Hemoglobin mass conc (Bld) 13.9 g/dL Normal 13.0-17.0 [facility] Comment on above: Order Comment: No: Do not add to previou s draw Performed By: #### 5 0103 ####[facility] MCH Auto Entitic mass (RBC) 29.7 pg Normal 27.0-33.0 [facility] Comment on above: Order Comment: No: Do not add to previou s draw Performed By: #### 5 0103 ####[facility] MCHC Auto mass conc (RBC) 32.9 g/dL Normal 32.0-35.0 [facility] Comment on above: Order Comment: No: Do not add to previou s draw Performed By: #### 5 0103 ####[facility] MCV Auto Entitic volume (RBC) 90.2 fL Normal 82.0-98.0 [facility] Comment on above: Order Comment: No: Do not add to previou s draw Performed By: #### 5 0103 ####[facility] Nucleated RBC/100 WBC Ratio (Bld) 0 % Normal 0-0 [facility] Comment on above: Order Comment: No: Do not add to previou s draw Performed By: #### 5 0103 ####[facility] PLAT CNT 226 10*3/uL Normal 150-400 [facility] Comment on above: Order Comment: No: Do not add to previou s draw Performed By: #### 5 0103 ####[facility] RBC Auto #/vol (Bld) 4.68 10*6/uL Normal 4.20-5.70 [facility] Comment on above: Order Comment: No: Do not add to previou s draw Performed By: #### 5 0103 ####[facility] WBC Auto #/vol (Bld) 6.80 10*3/uL Normal 4.00-10.60 [facility] Comment on above: Order Comment: No: Do not add to previou s draw Performed By: #### 5 0103 ####[facility] Cardiovascular Lab Reporton 03-10-2018 Cardiovascular Lab Report [facility] #: [id number] Physician: Oren Zafar M.D.Medicine Service Date: 03/09/2018Division of Birthdate: 2Cardiology Room #: 3CD [id number] CardiovascularServicesUnCar[place] [address]Phone Fax Cardiovascular Laboratory ReportCARDIAC CATHETERIZATION REPORTINDICATION: Sheng [...] signed informed consent. He was brought to mini lab operator in a fasting state.The right groin area was prepped and draped in usual fashion. Usingmicropuncture technique, the right common femoral artery was accessed. Theinner cannula was advanced, limited femoral angiography was performed.Followed by upsizing to a 6-Surinamese x 11 cm sheath. Bilateral selectivecoronary angiography was then performed using 6-Surinamese JL4 and PD5ntpykrndbx catheters. The 6-Surinamese JR4 diagnostic catheter was used toselectively engage the radial graft to the OM2 and saphenous venous graftto the PDA branch. Angiography was performed. Catheter was removed. A6-Surinamese GEOVANNY catheter was used to selectively engage the left subclavianartery and then selectively engage the left internal mammary artery.Angiography was performed. Catheter was removed.Heparin was administered intravenously and therapeutic ACT confirmed duringthe procedure. A 6-Surinamese XB 3.0 guiding catheter was advanced and used toengage the left main coronary ostium. A Beech Bottom wire was advanced into thedistal circumflex. Balloon angioplasty in the mid circumflex was performedusing Emerge 3.0 x 15 mm balloon inflated at 10 atmospheres. Angiographyof this revealed suboptimal result. Therefore, a Synergy 3.0 x 24 mmdrug-eluting stent was deployed at 12 atmospheres and post dilated using NCQuantum [place] 3.0 x 20 mm noncompliant balloon inflated at 18 atmospheresthroughout the length of the stent. Angiography after administration ofintracoronary nitroglycerin showed excellent result with reduction of thestenosis to 0%. No evidence of dissection or perforation. The guidingcatheter was removed. The right femoral arteriotomy was managed with a6-Surinamese Angio-Seal device with good hemostasis. He was [...] The distal LAD has moderate diffuse disease igbzjgz81%-70% beyond the anastomosis of the VEGA graft.Circumflex [...] 03/09/2018/06:08 P/Oren Simon M.D.Date Trans: 03/10/2018 04:31 A/Esdras_JN:[id number]: Derrick Lopez M.D. [address] [facility] [address] [facility] Discharge Summaryon 03-10-20 Discharge Summary MR#: [id number] Admitted: [...] as listed above, who was sent from [facility] due to concernof possible ACS. Apparently, the patient presented to [place] complainingof dizziness and vomiting, which was his presenting complaint prior toneeding his last CABG 16 years ago. EKG at [place] showed new T-waveinversions in the inferior leads, not there on previous EKG. Firsttroponin was negative and top loader here at [facility], recommended to beingthe patient to be sent to [facility] for cardiac cath. The patient was admittedto Medicine on step-down service and Cardiology was consulted. The patientpreviously had stress test within the past 2 years, which was negative andrecent echocardiogram per patient history, which was performed 6 months agoshowed improvement regarding wall motion abnormalities and ejectionfraction. The patient was taken to mini lab operator following day after admission,revealing patent 3/3 bypass [...] taking and to discuss high-intensity statinwith his top loader, which he will be follow up with [...] Dict: 03/10/2018/12:04 P/TAYLOR Lua-CDate Trans: 03/10/2018 07:17 P/mmoDN_JN:[id number]: Derrick Lopez M.D. [address], [facility] [address] Normal [facility] POC GLUCOSE LABon 03-10-2018 Glucose mass conc 160 mg/dL High 70-100 [facility] Comment on above: Performed By: #### 47135, 50822, 33158, 25288, 27207 ####[facility] [facility] [place] [address], [facility] Glucose mass conc 256 mg/dL High 70-100 [facility] Comment on above: Performed By: #### 28721, 29701, 24083, 32249, 52234 ####[facility] [place] [address], [facility] BASIC METABOLIC PANELon Calcium mass conc 9.1 mg/dL Normal 8.6-10.3 [facility] Comment on above: Order Comment: No: Do not add to previou s draw Performed By: #### 5 0103 ####[facility] [place] [address], [facility] Chloride molar conc 103 mmol/L Normal 98-107 [facility] Comment on above: Order Comment: No: Do not add to previou s draw Performed By: #### 5 0103 ####[facility] [place] [address], [place] CO2 molar conc 28 mmol/L Normal 21-31 [facility] Comment on above: Order Comment: No: Do not add to previou s draw Performed By: #### 5 0103 ####[facility] [place] [address], [place] Creatinine mass conc 1.20 mg/dL Normal 0.70-1.30 [facility] Comment on above: Order Comment: No: Do not add to previou s draw Performed By: #### 5 0103 ####[facility] [place] [address], [facility] GFR/1.73 sq M predicted among blacks MDRD vol rate/area (S/P/Bld) mL/min/{1.73_m2} Normal >60 [facility] Comment on above: Order Comment: No: Do not add to previou s draw Result Comment: Calc ulation may not be valid for patients over 70 years Performed By: #### 5 0103 ####[facility] [place] [address], [facility] GFR/1.73 sq M predicted among non-blacks MDRD vol rate/area (S/P/Bld) 59 ml/min/1.73sq m Abnormal >60 [facility] Comment on above: Order Comment: No: Do not add to previou s draw Result Comment: Calc ulation may not be valid for patients over 70 years Performed By: #### 5 0103 ####[facility] [place] [address], [place] Glucose mass conc 96 mg/dL Normal 70-100 [facility] Comment on above: Order Comment: No: Do not add to previou s draw Performed By: #### 5 0103 ####[facility] [place] [address], [place] Potassium molar conc 3.7 mmol/L Normal 3.5-5.1 [facility] Comment on above: Order Comment: No: Do not add to previou s draw Performed By: #### 5 0103 ####[facility] [place] [address], [facility] Sodium molar conc 140 mmol/L Normal 136-145 [facility] Comment on above: Order Comment: No: Do not add to previou s draw Performed By: #### 5 0103 ####[facility] [place] [address], [facility] Urea nitrogen mass conc 19 mg/dL Normal 7-25 [facility] Comment on above: Order Comment: No: Do not add to previou s draw Performed By: #### 5 0103 ####[facility] [place] [address], [facility] POC GLUCOSE LABon 03-09-2018 Glucose mass conc 115 mg/dL High 70-100 [facility] Comment on above: Performed By: #### 55506 ####[facility] [place] [address], [facility] Glucose mass conc 107 mg/dL High 70-100 [facility] Comment on above: Performed By: #### 54281 ####[facility] [place] [address], [place] Glucose mass conc 91 mg/dL Normal 70-100 [facility] Comment on above: Performed By: #### 74317 ####[facility] [place] [address], [place] Glucose mass conc 155 mg/dL High 70-100 [facility] Comment on above: Performed By: #### 11389 ####[facility] [place] [address], [place] UFH HEPARIN ASSAYon 03-09-20 18 UNFRACTIONATED HEPARIN 0.27 IU/mL Low 0.30-0.70 [facility] Comment on above: Result Comment: Rivaroxaban and Apixaban will interfere with the anti Xa assay used tomonitor UFH and LMWH. Performed By: #### 5 0103 ####[facility] [facility].[address] UNFRACTIONATED HEPARIN 0.42 IU/mL Normal 0.30-0.70 [facility] Comment on above: Result Comment: Rivaroxaban and Apixaban will interfere with the anti Xa assay used tomonitor UFH and LMWH. Performed By: #### 5 0103 ####[facility] [facility].[address] APTTon 03-08-2018 aPTT Coag time (Bld) 68.3 s High 25.0-35.0 [facility] Comment on above: Order Comment: No: [...] UFH <0.1 Performed By: #### 5 7307, 30131 ####[facility] [facility].[address] BASIC METABOLIC PANELon Calcium mass conc 9.4 mg/dL Normal 8.6-10.3 [facility] Comment on above: Order Comment: No: Do not add to previou s draw Performed By: #### 9 9909, 98516, 19891, 03723, 36657 ####[facility] [facility].[address] Chloride molar conc 105 mmol/L Normal 98-107 [facility] Comment on above: Order Comment: No: Do not add to previou s draw Performed By: #### 9 9909, 53236, 66507, 49457, 04762 ####[facility] [place] [address], [facility] CO2 molar conc 28 mmol/L Normal 21-31 [facility] Comment on above: Order Comment: No: Do not add to previou s draw Performed By: #### 9 9909, 30202, 20145, 51831, 47110 ####[facility] [place] [address], [facility] Creatinine mass conc 1.13 mg/dL Normal 0.70-1.30 [facility] Comment on above: Order Comment: No: Do not add to previou s draw Performed By: #### 9 9909, 09713, 02450, 31846, 18899 ####[facility] [place] [address], [facility] GFR/1.73 sq M predicted among blacks MDRD vol rate/area (S/P/Bld) mL/min/{1.73_m2} Normal >60 [facility] Comment on above: Order Comment: No: Do not add to previou s draw Result Comment: Calc ulation may not be valid for patients over 70 years Performed By: #### 9 9909, 69544, 27614, 70307, 92167 ####[facility] [place] [address], [facility] GFR/1.73 sq M predicted among non-blacks MDRD vol rate/area (S/P/Bld) mL/min/{1.73_m2} Normal >60 [facility] Comment on above: Order Comment: No: Do not add to previou s draw Result Comment: Calc ulation may not be valid for patients over 70 years Performed By: #### 9 9909, 75356, 07918, 72589, 38176 ####[facility] [place] [address], [place] Glucose mass conc 108 mg/dL High 70-100 [facility] Comment on above: Order Comment: No: Do not add to previou s draw Performed By: #### 9 9909, 90884, 19908, 58106, 86276 ####[facility] [facility].[address] Potassium molar conc 3.7 mmol/L Normal 3.5-5.1 [facility] Comment on above: Order Comment: No: Do not add to previou s draw Performed By: #### 9 9909, 85662, 81760, 72782, 86808 ####[facility] [facility].[address] Sodium molar conc 141 mmol/L Normal 136-145 [facility] Comment on above: Order Comment: No: Do not add to previou s draw Performed By: #### 9 9909, 37826, 05703, 45866, 51494 ####[facility] [facility].[address] Urea nitrogen mass conc 21 mg/dL Normal 7-25 [facility] Comment on above: Order Comment: No: Do not add to previou s draw Performed By: #### 9 [id number], 29386, 77568, 12665, 78269 ####[facility].[address] CBC W/DIFFon 03-08-2018 ABS BASOPHILS 0.0 10*3/uL Normal 0.0-0.2 [facility] Comment on above: Performed By: #### [id number] ####[facility] [facility].[address] ABS IMM GRANS 0.0 10*3/uL Normal 0.0-0.2 [facility] Comment on above: Performed By: #### [id number] ####[facility] ABS NEUTROPHILS 4.4 10*3/uL Normal 1.6-7.6 [facility] Comment on above: Performed By: #### [id number] ####[facility] [facility].[address] Basophils Auto #/vol (Bld) 0.6 % Normal 0.0-1.0 [facility] Comment on above: Performed By: #### [id number] ####[facility] [facility].[address] Eosinophils Auto #/vol (Bld) 0.3 10*3/uL Normal 0.0-0.5 [facility] Comment on above: Performed By: #### [id number] ####[facility] Eosinophils/100 WBC Auto (Bld) 4.0 % Normal 0.0-6.0 [facility] Comment on above: Performed By: #### 08149 ####[facility] Erythrocyte distribution width Auto Ratio (RBC) 13.3 % Normal 11.5-15.0 [facility] Comment on above: Performed By: #### [id number] ####[facility] Hematocrit Auto Volume Fraction (Bld) 41.7 % Normal 39.0-50.0 [facility] Comment on above: Performed By: #### 96643 ####[facility] Hemoglobin mass conc (Bld) 13.7 g/dL Normal 13.0-17.0 [facility] Comment on above: Performed By: #### 01334 ####[facility] IMMATURE GRANS 0.3 % Normal 0.0-1.0 [facility] Comment on above: Performed By: #### 43760 ####[facility] Lymphocytes Auto #/vol (Bld) 1.7 10*3/uL Normal 1.2-4.0 [facility] Comment on above: Performed By: #### [id number] ####[facility] Lymphocytes/100 WBC Auto (Bld) 24.0 % Normal 20.0-45.0 [facility] Comment on above: Performed By: #### 84135 ####[place] [address] [address] MCH Auto Entitic mass (RBC) 29.7 pg Normal 27.0-33.0 [facility] Comment on above: Performed By: #### 79576 ####[address] MCHC Auto mass conc (RBC) 32.9 g/dL Normal 32.0-35.0 [facility] Comment on above: Performed By: #### 61139 ####[place] [address] [address] MCV Auto Entitic volume (RBC) 90.3 fL Normal 82.0-98.0 [facility] Comment on above: Performed By: #### 36779 ####[facility] Monocytes Auto #/vol (Bld) 0.6 10*3/uL Normal 0.1-1.0 [facility] Comment on above: Performed By: #### 80267 ####[address] MONOS 7.9 % Normal 5.0-12.0 [facility] Comment on above: Performed By: #### 43686 ####[facility] [facility].[address] Neutrophils/100 WBC Auto (Bld) 63.2 % Normal 40.0-72.0 [facility] Comment on above: Performed By: #### 59050 ####[facility] [facility].[address] Nucleated RBC/100 WBC Ratio (Bld) 0 % Normal 0-0 [facility] Comment on above: Performed By: #### 41188 ####[facility] PLAT CNT 209 10*3/uL Normal 150-400 [facility] Comment on above: Performed By: #### 45048 ####[place] [address] [address] RBC Auto #/vol (Bld) 4.62 10*6/uL Normal 4.20-5.70 [facility] Comment on above: Performed By: #### 01499 ####[facility] WBC Auto #/vol (Bld) 6.93 10*3/uL Normal 4.00-10.60 [facility] Comment on above: Performed By: #### 93917 ####[address] History and Physicalon 03-08 [facility] and Physical [id number] Admitted: 03/08/2018 Date of : 1940 Attending Physician: Shiva Seay MD Room #: [id number] Discharge Date: HISTORY AND PHYSICALCHIEF COMPLAINT: Dizziness and vomiting.HISTORY OF PRESENT ILLNESS: This patient is 77-year-old male with pastmedical history of coronary artery disease, status post CABG 16 years ago,hypertension, hyperlipidemia, and diabetes, who was sent from [facility] because of possibility of ACS. The patient presented to [facility] complaining of dizziness and vomiting while he was working on his[employer]n. The patient stated that he had similar symptoms when he had hisheart attack 16 years ago that ended up having CABG. In the [facility], his EKG showed new T inversions in inferior leads, which theywere not there previously. The 1st troponin was negative. The ER doctorcalled his top loader, Dr. Simon, who [facility] The patient [...] A _Shiva Seay, MDDate Dict: 03/08/2018/05:06 P/Shiva Seay MDDate Trans: 03/08/2018 05:31 P/[id number] Normal [facility] LIVER BATTERYon 03-08-2018 Albumin mass conc 4.0 g/dL Normal 3.5-5.7 [facility] Comment on above: Order Comment: No: Do not add to previou s draw Performed By: #### 9 9909, 76167, 11304, 16082, 13764 ####[facility] [place] [address], [facility] ALKALINE PHOSPH 53 IU/L Normal 34-104 [facility] Comment on above: Order Comment: No: Do not add to previou s draw Performed By: #### 9 9909, 76137, 74266, 97652, 81392 ####[facility] [place] [address], [facility] ALT enzyme act/vol 21 U/L Normal 7-52 [facility] Comment on above: Order Comment: No: Do not add to previou s draw Performed By: #### 9 9909, 69446, 11713, 86585, 56190 ####[facility] [place] [address], [facility] AST enzyme act/vol 19 U/L Normal 13-39 [facility] Comment on above: Order Comment: No: Do not add to previou s draw Performed By: #### 9 9909, 88010, 12991, 76817, 75340 ####[facility] [place] [address], [facility] Bilirubin mass conc 0.8 mg/dL Normal 0.3-1.0 [facility] Comment on above: Order Comment: No: Do not add to previou s draw Performed By: #### 9 9909, 22577, 72776, 24585, 41426 ####[facility] [place] [address], [facility] Bilirubin.direct mass conc 0.2 mg/dL Normal 0.0-0.2 [facility] Comment on above: Order Comment: No: Do not add to previou s draw Performed By: #### 9 9909, 76140, 19500, 68850, 36932 ####[facility] [facility] [place] [address], [facility] Protein mass conc 7.1 g/dL Normal 6.0-8.3 [facility] Comment on above: Order Comment: No: Do not add to previou s draw Performed By: #### 9 9909, 55428, 96659, 58465, 21957 ####[facility]3000 [facility] [place] [address], [facility] MAGNESIUM BLOODon 03-08-2018 Magnesium mass conc 2.0 mg/dL Normal 1.9-2.7 [facility] Comment on above: Order Comment: No: Do not add to previou s draw Performed By: #### 9 9909, 89040, 04227, 42628, 01370 ####[facility] [place] [address], [facility] PHOSPHORUS BLOODon 8 Phosphate mass conc 3.2 mg/dL Normal 2.5-5.0 [facility] Comment on above: Order Comment: No: Do not add to previou s draw Performed By: #### 9 9909, 34597, 12919, 87067, 87252 ####[facility] [facility] [place] [address], [facility] POC GLUCOSE LABon 03-08-2018 Glucose mass conc 114 mg/dL High 70-100 [facility] Comment on above: Performed By: #### 76436 ####[facility] [facility] [place] [address], [facility] Glucose mass conc 164 mg/dL High 70-100 [facility] Comment on above: Performed By: #### 13517 ####[facility] [facility].[address] PROTHROMBIN TIMEon 8 INR Coag RelTime (PPP) 1.11 {INR} Normal 0.91-1.16 [facility] Comment on above: Order Comment: No: [...] OF ACTION, CLINICALEFFECTIVENESS, AND OPTIMAL THERAPEUTIC RANGE. [id number]. Performed By: #### 5 7307, 11975 ####[facility]3000 [facility].[address] Prothrombin time (PT) Coag time (PPP) 14.3 s Normal 12.3-14.8 [facility] Comment on above: Order Comment: No: Do not add to previou s draw Result Comment: ALL RESULTS MUST BE INTERPRETED WITH RESPECT TO BLOOD DRAWING ARTIFACTOR DILUTION ERROR OF ANTICOAGULANT AT THE TIME OF SAMPLING. Performed By: #### 5 7307, 15848 ####[facility] TROPONIN-Ion 03-08-2018 Troponin I.cardiac mass conc 0.01 ng/mL Normal 0.00-0.04 [facility] Comment on above: Order Comment: No: Do not add to previou s draw Result Comment: REFE RENCE RANGES: 0.00 - 0.04 ng/ml NORMAL 0.05 - 0.50 ng/ml INDETERMINATE > 0.50 ng/ml CONSISTENT WITH AN M.I. Performed By: #### 9 9909, 56901, 57434, 86830, 92042 ####[facility] [facility].[address] Social History Date Type Detail Facility Start: 02-15-2022 Tobacco smoking status Ex-smoker (fi nding) [facility] Sex Assigned At Male [facility] Vital Signs Date Time Vital Sign Value Performing Clinician Kristie kerr 02-15-2022 10:03-0400 Blood Pressure Location César Gordon Jr. [facility] 02-15-2022 10:03-0400 Diastolic blood pressure 66 mm[Hg] César Gordon Jr. [facility] 02-15-2022 10:03-0400 Heart rate 80 /min César Gordon Jr. [facility] 02-15-2022 10:03-0400 Respiratory rate 16 /min César Gordon Jr. [facility] 02-15-2022 10:03-0400 Systolic blood pressure 88 mm[Hg] César Gordon Jr. [facility] Functional Status Date Assessment Result Facility 02-15-2022 Functional Status N/A [facility] Clinical Notes 02-15-2022 to 07-14-2023 Note Date & Type Note Facility 07-14-2023 Note [place] [facility] Subjective Sheng Bauer is a 83 y.o. year old male patient being seen for 3 mo follow up chronic systolic heart failure, CAD, and hypertension. He was admitted to [facility] in Apr 2023. Doing very well since [...] OM) in 2001. He has history of NE in 2001. He has hypertension on treatment. He has CKD. In 2017 he was admitted to [facility] transferred [facility] the [facility] with symptoms of unstable angina and new onset T-wave inversions in the inferolateral leads. Cardiac cath was done and he underwent stenting of the circumflex with Synergy TONYA on 03/09/2018. He did get admitted in December 2019 to [facility] after a tree fell on him, with [...] left side. Heart (more content not included)... [facility] 03-13-2023 Note Eliquis was decrease d to 2.5 mg bid per PCP in light of CKD, bruising of extremities and noted fall earlier this year. Currently in rhythm per assessment- continue coreg [facility] 03-13-2023 Note stable [facility] 03-13-2023 Note Monitored per PCP- Lauren lopez D/w pt that he may need referral to reforestation worker in the future if kidney function worsens and he voiced understanding [facility] 03-13-2023 Note Continue lipitor [facility] 03-13-2023 Note As above [facility] 03-13-2023 Note HTN well controlled 102/60- recently was inpt for hypotension and AMS- hydralazine was dc'd [facility] 03-13-2023 Note Coronary artery dise ase is stable without any concerning symptoms Continue GDMT- ASA, lipitor and coreg continue risk factor modifications- heart healthy diet, regular exercise as tolerated and continue all medications. [facility] 03-13-2023 Note [facility] II-III, current ly euvolemic without exacerbation, weight is currently down from last visit and overall pt is doing well Continue GDMT- ASA, lipitor, coreg, entrestot and aldatone Diuretic therapy- bumex 2 mg daily Monitor daily weights, I&O, fluid restriction 1.5-2L/day, renal function and electrolytes [facility] 03-13-2023 Note Patient here for 6 m o follow up CAD, hypertension, CHF, and hx of DVT. He was admitted to [facility] in January 2023 for pneumonia. Then admitted [...] All other systems reviewed and are negative. [facility] 03-13-2023 Note [facility] CARDIOLOGY PROGR ESS [...] hx of DVT. He was admitted to [facility] in October s/p fall, January 2023 for [...] OM) in 2001. He has history of NE in 2001. He has hypertension on treatment. He has CKD with Cr previously around 1.5. In 2017 he was admitted to [facility] transferred [facility] the [facility] with symptoms of unstable angina and new onset T-wave inversions in the inferolateral leads. Cardiac cath was done and he underwent stenting of the circumflex with Synergy TONYA on 03/09/2018. He did get admitted in December 2019 to [facility] after a tree fell on him, with [...] in the mo (more content not included)... [facility] 09-12-2022 Note [place] [facility] Subjective Sheng Bauer is [...] OM) in 2001. He has history of NE in 2001. He has hypertension on treatment. He has CKD with Cr previously around 1.5. In 2017 he was admitted to [facility] transferred [facility] the [facility] with symptoms of unstable angina and new onset T-wave inversions in the inferolateral leads. Cardiac cath was done and he underwent stenting of the circumflex with Synergy TONYA on 03/09/2018. He did get admitted in December 2019 to [facility] after a tree fell on him, with [...] amitriptyline (Elavil) 2 (more content not included)... [facility] 02-15-2022 Hospital Discharge instructions Patient Education [...] including vitamins, herbs, eye drops, creams, and allp-ufs-cwwnktv medicines. This also includes: ?Medicines to assist [...] 08/26/2005 Document Revised: 07/06/2018 Document Reviewed: 04/30/2018 [employer] Patient Education [employer] Follow Up Care 08/10/2021 09:51:10 With:Evan Ochoa MD, César Vega, URO Address: [facility] [address], [place] [address]- When:Within 6 Month(s) Comments:w/ psa [facility] Evaluation + Plan note Future Appointments Appointment Date:08/23/2022 10:30:00 AM Scheduled Provider:Evan Ochoa MD, César Vega Location:[facility] Appointment Type:URO Office Visit Diagnostic Tests PendingPSA Total 02/15/22 [facility] Hospital course Narrative No data available for this section [facility] Hospital Discharge instructions No data available for this section [facility] Progress note No data available for this section [facility] Summary Purpose Family History No Family History [...] section and content) DATE CREATED AUTHOR 03/19/2018 [facility] DATE CREATED AUTHOR AUTHOR'S ORGANIZ ATION 09/21/2022 [facility] DATE CREATED AUTHOR AUTHOR'S ORGANIZ ATION 12/16/2022 [facility] [place] [facility] DATE CREATED AUTHOR AUTHOR'S ORGANIZ ATION 07/17/2023 [facility] Care Team (unrecognized sect ion and content) Personnel Name: Derrick Lopez MD Address: [address] [place] [address] Personnel Name: Derrick Lopez MD Address: Address: [address] [place] [address] FOR RECORDS PERTAINING TO PATIENTS WHO ARE [...] THE PRIMARY CLINICAL RECORDS. [facility] [employer] provides no warranty or guarantee of the accuracy or completeness of information in this document.
[2024-03-03] MEDS: AZITHROMYCIN 500 MG in 0.9 % SODIUM CHLORIDE 250 ML 250 MG IV (22:00)
[2024-03-03 23:33] LABS: Alanine Aminotransferase 62 U/L (16-63); Albumin Globulin Ratio 0.5; Alkaline Phosphatase 90 U/L (46-116); Aspartate Amino Transferase 28 U/L (15-37); Bilirubin Direct 0.2 mg/dL (0.0-0.2); Bilirubin Total 0.5 mg/dL (0.2-1.0); Globulin 3.7 g/dL; Total Protein 5.7 g/dL (6.4-8.2)
[2024-03-03] MEDS: LEVOTHYROXINE SODIUM 100 MCG TABLET 50 MCG PO (23:36)
[2024-03-03] MEDS: BENZONATATE 100 MG CAPSULE 200 MG PO (23:36)
[2024-03-03] MEDS: AMITRIPTYLINE HCL 50 MG TABLET PO (23:36)
[2024-03-03] MEDS: FERROUS SULFATE 325 MG TABLET PO (23:36)
[2024-03-03] MEDS: APIXABAN 5 MG TABLET 2.5 MG PO (23:37)
[2024-03-03] MEDS: ATORVASTATIN CALCIUM 20 MG TABLET PO (23:37)
[2024-03-03] MEDS: HYDRALAZINE HCL 25 MG TABLET PO (23:37)
[2024-03-03] MEDS: INSULIN ASPART 300 UNIT/3 ML PEN SUBQ (23:39)
[2024-03-03 23:42] LABS: Glucometer 236 mg/dL (74-106)
[2024-03-03] MEDS: IPRATROPIUM/ALBUTEROL SULFATE 3 ML AMPUL.NEB IH (23:54)
[2024-03-04] VITALS (27 sets, daily range): BP systolic 109–168; BP diastolic 67–94; PULSE 73–96; TEMP 36.5–37.1; O2SAT 92–100
[2024-03-04] MEDS: FUROSEMIDE 20 MG/2 ML VIAL 40 MG IVP (04:06)
[2024-03-04] MEDS: 0.9 % SODIUM CHLORIDE 1,000 ML 75 ML IV (04:06)
[2024-03-04] MEDS: IPRATROPIUM/ALBUTEROL SULFATE 3 ML AMPUL.NEB IH ×4 (05:05→23:35)
[2024-03-04] MEDS: HYDRALAZINE HCL 25 MG TABLET PO ×2 (05:14→21:09)
[2024-03-04 06:11] LABS: Basophils Percent Auto 0.1 % (0.2-2.0); Eosinophils Percent Auto 0.1 % (0.9-7.0); Hematocrit 29.7 % (42.0-54.0); Hemoglobin 9.5 g/dL (14.0-18.0); Immature Granulocytes Abs Auto 0.05 10^3/uL (0.00-0.03); Immature Granulocytes Pct Auto 0.4 % (0.0-0.5); Lymphocytes Absolute Auto 0.6 10^3/uL (1.2-3.8); Lymphocytes Percent Auto 5.5 % (20.5-60.0); Mean Corpuscular Hemoglobin 32.1 pg (25.9-34.0); Mean Corpuscular Volume 100.3 fL (80.0-94.0); Mean Platelet Volume 10.7 fL (9.5-13.5); Neutrophils Absolute Auto 9.7 10^3/uL (1.4-6.5); Neutrophils Percent Auto 84.9 % (43.0-75.0); Platelet Count 183 10^3/uL (150-450); Red Blood Count 2.96 10^6/uL (4.70-6.10); Red Cell Distribution Width 14.7 % (11.0-15.0); White Blood Count 11.4 10^3/uL (4.0-11.0)
[2024-03-04 06:34] LABS: Alanine Aminotransferase 54 U/L (16-63); Albumin Globulin Ratio 0.5; Albumin Level 1.8 g/dL (3.4-5.0); Alkaline Phosphatase 71 U/L (46-116); Aspartate Amino Transferase 26 U/L (15-37); BUN Creatinine Ratio 28.9; Bilirubin Total 0.6 mg/dL (0.2-1.0); Calcium 8.4 mg/dL (8.5-10.1); Carbon Dioxide 24.5 mmol/L (21.0-32.0); Chloride 111 mmol/L (98-107); Estimated GFR (African America 28 (>=60); Estimated GFR (Non-African Ame 23 (>=60); Globulin 3.5 g/dL; Glucose 157 mg/dL (74-106); Potassium 4.5 mmol/L (3.5-5.1); Sodium 145 mmol/L (136-145); Total Protein 5.3 g/dL (6.4-8.2)
[2024-03-04 06:35] LABS: Troponin I High Sensitivity 28.5 pg/mL (4.0-76.1)
--- NOTE | 2024-03-04 08:06 | CT_ITS ---
The [address] [address] Patient Name: JAJA FRANKLIN MRN: [id number] date: 1940 Sex: M Assigned Patient Location: [place] Current Patient Location: [place] Accession/Order Number: [id number] Exam Date: 03/04/2024 11:35 Report Date: 03/04/2024 11:59 At the request of: DERRICK AYALA Procedure: CT head/brain wo con EXAMINATION: CT head/brain wo con HISTORY: falls COMPARISON: CT head 05/19/2021 TECHNIQUE: Axial CT images were obtained without IV contrast. Dose reduction techniques were achieved by using automated exposure control and/or adjustment of mA and/or kV according to patient size and/or use of iterative reconstruction technique. 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 No edema, hemorrhage, mass, acute infarction, or inappropriate atrophy. CSF SPACES: No hydrocephalus, subarachnoid hemorrhage, or mass. Appropriate for age. SKULL: No fracture, mass, or other significant visible lesion. SINUSES: Fluid level within right sphenoid sinus. The remainder of the paranasal sinuses are clear. ORBITS: No appreciable abnormality on the limited views. OTHER: Negative CT/CT head/brain wo con IMPRESSION: 1. No acute cranial hemorrhage or acute abnormality brain. 2. Age consistent atrophy and chronic changes. 3. Right sphenoid sinus acute sinusitis versus retained secretions. Electronically authenticated by: AWAIS TELLO Date: 03/04/2024 11:59
[2024-03-04] MEDS: LACTATED RINGER'S SOLUTION 1,000 ML 50 ML IV (08:08)
--- NOTE | 2024-03-04 08:10 | P.HP_ITS ---
HPI H&P: HPI History of Present Illness Chief complaint: SOB; DEHYDRATION, COVID Narrative: Pain she has been a resident at the rehab facility since discharge from previous admission, I received a message from the family that he was feeling worse, more lethargic, increasing cough, I recommended they have been transferred to the emergency room for evaluation. In the emergency room on the right lower lobe pneumonia. Still testing positive for COVID, he is on day 12 currently. The [facility] lower lobe pneumonia though is new and would be healthcare acquired pneumonia When I saw the patient up on the medical surgical floor, he was sleeping but awakened easily, mild respiratory distress with conversation, cough during the evaluation, shortness of breath but does feel may be slightly better than the previous day. He was given fluids overnight. Opioid HPI Opioid Management Most Recent Pain and Opioid Data: Last Pain Scale 0 02/24/24 07:54 Last Pain Intensity 0 02/24/24 07:54 Last Pain Assessment 03/04/24 06:05 Last ORT Total Score 0 03/03/24 21:12 Last ORT Risk Category Low Risk 03/03/24 21:12 Review of Systems ROS Status of ROS 10 or more systems reviewed and unremark able except as noted in history and below Constitutional Denies: fever or chills [facility] Medical History (Updated 03/03/24 @ 18:47 by Darron Tim MD) Acute combined systolic (congestive) and diastolic (congestive) heart failure ?I50.41 - Acute combined systolic (congestive) and diastolic (congestive) heart failure (ICD-10) Frequent falls ?R29.6 - Repeated falls (ICD-10) Generalized weakness ?R53.1 - Weakness (ICD-10) Fall ?W19.XXXA - Unspecified fall, initial encounter (ICD-10) Altered mental status ?R41.82 - Altered mental status, unspecified (ICD-10) 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 ?N18.6 - End stage renal disease (ICD-10) ?D63.1 - Anemia in chronic kidney disease (ICD-10) Hypotension due to medication ?I95.2 - Hypotension due to drugs (ICD-10) Acute hypotension ?I95.9 - Hypotension, unspecified (ICD-10) Cellulitis ?L03.90 - Cellulitis, unspecified (ICD-10) Diabetes ?E11.9 - Type 2 diabetes mellitus without complications (ICD-10) Afib ?I48.91 - Unspecified atrial fibrillation (ICD-10) CHF (congestive heart failure) ?I50.9 - Heart failure, unspecified (ICD-10) Acute renal failure ?N17.9 - Acute kidney failure, unspecified (ICD-10) Peripheral neuropathy ?G62.9 - Polyneuropathy, unspecified (ICD-10) Family History (Updated 03/04/24 @ 07:22 by Kandy Huston) Father No problems noted. Brother No problems noted. Mother No problems noted. Aunt No problems noted. Social History (Updated 03/04/24 @ 07:22 by Kandy Huston) Within the past year, how often did you have a drink containing alcohol: never Score interpretation: A score less than 4 is consistent with normal alcohol consumption. Smoking status: Former smoker Non-prescribed substance use: denies use Known occupational exposures/hazards: No Highest level of school completed/degree received: 10th grade Are you now , , , , never or living with a partner: In a typical week, how many times do you talk on the telephone with family, friends, or neighbors: 3 or more times per week How often do you get together with friends or relatives: twice per week How often do you attend baptism or muslim services: 1-3 times per year Do you belong to any clubs or organizations such as baptism groups unions, fraternal or athletic groups, or school groups: no Total score: 1 Score interpretation: A score of less than or equal to 1 indicates the most socially isolated. Little interest or pleasure in doing things: several days Feeling down, depressed, or hopeless: several days Feel stressed/tense/nervous/anxious/difficulty sleeping: only a little Life stressors: recent of family or friend Do you think of yourself as: straight/heterosexual Gender Identity: male Meds Home Medications and Allergies Home Medications ?Medication ?Instructions ?Recorded ?Confirmed ?Type atorvastatin 20 mg tablet 20 mg PO .QHS 01/28/23 03/03/24 History ferrous sulfate 325 mg (65 mg 325 mg PO .QHS 01/28/23 03/03/24 History iron) tablet (FeroSul) levothyroxine 50 mcg tablet 50 mcg PO .qhs 01/28/23 03/03/24 History aspirin 81 mg tablet,delayed 81 mg PO DAILY 01/30/23 03/03/24 History release (Adult Aspirin Regimen) apixaban 5 mg tablet (Eliquis) 2.5 mg (1/2 x 5 mg) PO BID #60 tabs 02/02/23 03/03/24 Rx insulin aspart U-100 100 unit/mL 2 - 14 unit (0.02 - 0.14 mL) 02/08/23 03/03/24 Rx (3 mL) subcutaneous pen (Novolog subcut ACHS #15 mL FlexPen U-100 Insulin aspart) amitriptyline 50 mg tablet 50 mg PO BEDTIME 04/30/23 03/03/24 History carvedilol 25 mg tablet 25 mg PO BID 04/30/23 03/03/24 History bumetanide 2 mg tablet 2 mg PO .qd 02/06/24 03/03/24 History isosorbide mononitrate 60 mg 120 mg PO .qd 02/06/24 03/03/24 History tablet,extended release 24 hr spironolactone 25 mg tablet 12.5 mg PO .qd 02/06/24 03/03/24 History hydralazine 25 mg tablet 25 mg PO TID #90 tabs 02/09/24 03/03/24 Rx sacubitril 97 mg-valsartan 103 mg 1 tab PO BID #60 tabs 02/09/24 03/03/24 Rx tablet (Entresto) insulin detemir U-100 100 unit/mL 38 unit subcut QAM 02/22/24 03/03/24 History (3 mL) subcutaneous pen (Levemir FlexPen) benzonatate 100 mg capsule 200 mg (2 x 100 mg) PO Q8H PRN 02/24/24 03/03/24 Rx Cough 3 days #6 caps Allergies Allergy/AdvReac Type Severity Reaction Status Date / Time Sulfa (Sulfonamide Allergy Intermediate pass out Verified 02/22/24 10:53 Antibiotics) Exam Constitutional Vital Signs, click to edit/add: Last Vital Signs Temp 98.7 F 03/04/24 04:24 Pulse 82 03/04/24 08:00 Resp 20 03/04/24 05:05 BP 137/75 03/04/24 04:24 Pulse Ox 97 03/04/24 06:00 O2 Del Method Nasal Cannula 03/04/24 05:39 O2 Flow Rate 2 03/04/24 05:39 Documenting provider has reviewed patient's vital signs: yes Common normals: no apparent distress Chest Common normals: inspection of chest normal Respiratory Common normals: no retractions; abnormal respiratory effort (Mild conversational dyspnea) and not clear to ascultation bilaterally Auscultation: rhonchi and egophony right lower; no rales Cardio Common normals: regular rate Rhythm: abnormal rhythm GI Common normals: Normal to inspection, nondistended, normoactive bowel sounds present, soft to palpation and non-tender Extremity Common normals: abnormal to inspection (1+ edema which is his baseline) Results Labs Labs: Short CBC 03/03/24 03/04/24 Range/Units 17:34 06:02 WBC 13.3 H 11.4 H (4.0-11.0) 10^3/uL Hgb 10.2 L 9.5 L (14.0-18.0) g/dL Hct 32.9 L 29.7 L (42.0-54.0) % Plt Count 192 183 (150-450) 10^3/uL BMP 03/03/24 03/04/24 17:34 06:02 Sodium 143 145 Potassium 4.6 4.5 Chloride 109 H 111 H Carbon Dioxide 25.6 24.5 BUN 87.0 H* 78.0 H* Creatinine 3.01 H 2.70 H Glucose 241 H 157 H Calcium 8.6 8.4 L Liver Function 03/03/24 03/04/24 Range/Units 17:34 06:02 Total Bilirubin 0.5 0.6 (0.2-1.0) mg/dL Direct Bilirubin 0.2 (0.0-0.2) mg/dL AST 28 26 (15-37) U/L ALT 62 54 (16-63) U/L Alkaline Phosphatase 90 71 (46-116) U/L Albumin 2.0 L 1.8 L (3.4-5.0) g/dL Assessment and Plan Assessment and Plan (1) Dehydration: (2) HTN (hypertension): (3) Hypothyroidism: (4) CKD stage 3 due to type 2 diabetes mellitus: (5) IDDM (insulin dependent diabetes mellitus): (6) Acute kidney injury superimposed on CKD: (7) Frequent falls: Plan Admission findings: Relative tachycardia with heart rate in the 90s despite being on beta-blockers, respiratory distress, acute hypoxia with O2 sat of 93% on 2 L., Leukocytosis, uncontrolled diabetes mellitus complicated by recent COVID, Now with healthcare acquired pneumonia right lower lobe-change antibiotics with acute hypoxia- aerosols routine, holding off on steroids secondary to hyperglycemia try to induce sputum culture [id number] testing positive-check on protocol for quarantine is on day 12 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-insulin sliding scale Chronic kidney disease stage III-deteriorated secondary to dehydration-gentle IV fluids with LR to reduce sodium intake compared to normal saline Chronic combined congestive heart failure-I do not believe he has acute congestive heart failure-his BNP is actually normal for him and is elevated slightly because of his creatinine, edema 1+ is normal for him and due to venous insufficiency Venous insufficiency and peripheral edema secondary to severe protein calorie malnutrition-compression hose and diet supplementation Anemia secondary to chronic kidney disease-monitor daily Down somewhat today, may need Hemoccults if continues to deteriorate Atrial fibrillation-rate fairly well-controlled currently does have relative tachycardia in the despite being on beta-blockers Severe protein calorie malnutrition-diet management Frequent falls-check CT head Hypothyroidism-check levels Hypercholesterolemia-continue with current medications Admission status: Patient admitted from a healthcare facility with pneumonia, medically necessary treatment will span 2 midnights-inpatient status
[2024-03-04 08:16] LABS: Lactate/Lactic Acid 1.2 mmol/L (0.4-2.0)
[2024-03-04 08:19] LABS: Magnesium 1.7 mg/dL (1.8-2.4); Thyroid Stimulating Hormone 0.937 uIU/mL (0.358-3.740)
--- NOTE | 2024-03-04 09:25 | SWNOTE1 ---
SW had email from Trinity at [facility]. Pt arrived at [facility] on Monday and is now at [facility] alf. LESLEY to speak with pt and family to confirm discharge plans.
[2024-03-04] MEDS: ENSURE HP 237 ML LIQUID PO (10:29)
[2024-03-04] MEDS: ASPIRIN 81 MG TABLET.DR PO (10:29)
[2024-03-04] MEDS: CARVEDILOL 25 MG TABLET 12.5 MG PO ×2 (10:29→20:08)
[2024-03-04] MEDS: SACUBITRIL/VALSARTAN 24 MG-26 MG TABLET 4 TAB PO ×2 (10:30→20:08)
[2024-03-04] MEDS: LEVOFLOXACIN IN DEXTROSE 5 % 750 MG/150 ML IV.SOLN 100 MG IV (10:31)
[2024-03-04] MEDS: ISOSORBIDE MONONITRATE 60 MG TAB.ER.24H 120 MG PO (10:31)
[2024-03-04] MEDS: APIXABAN 5 MG TABLET 2.5 MG PO ×2 (10:34→20:08)
[2024-03-04] MEDS: INSULIN DETEMIR 300 UNIT/3 ML INSULN.PEN 38 UNIT SUBQ (10:36)
[2024-03-04] MEDS: PROSTAT 15 GM PROTEIN/100 CAL 30 ML LIQUID PACKET PO (10:36)
--- NOTE | 2024-03-04 10:44 | SWNOTE1 ---
SW stopped in and spoke to pt. Pt voiced he just was not feeling well and was coughing at [facility]. He stated he called his kids and they spoke with the doctor and then he was sent here. He voiced it was going well at [facility] and he believes the plan is to return at discharge. LESLEY attempted to review Important Message from Medicare form with pt, but he would like SW to call his son, Roosevelt. Pt has no concerns at this time. LESLEY called and spoke to Roosevelt. Roosevelt voiced the transition from [facility] to [facility] was a smooth transition. He did voice that pt has pneumonia now and will be here for a few days. Plan is for him to return to [facility] at discharge. Pt does not need a precert to return since he is shelter. Pt's son did not have any other questions or concerns at this time. SW to follow as needed Important Message from Medicare reviewed and discussed with patient's son, Roosevelt. Pt's son verbalized understanding and signed the form. Original placed in pt's room and copy placed in patient?s chart.
--- NOTE | 2024-03-04 11:35 | SWNOTE1 ---
SW sent updates to [facility]. Updates included face sheet, ED note, H&P, vitals, labs, diagnostic imaging, PT/OT, and med list.
[2024-03-04] MEDS: INSULIN ASPART 300 UNIT/3 ML PEN SUBQ ×3 (12:13→21:14)
[2024-03-04] MEDS: PIPERACILLIN SODIUM/TAZOBACTAM 3.375 GM in 0.9 % SODIUM CHLORIDE 50 ML IV (13:48)
--- NOTE | 2024-03-04 13:54 | PC.NURSE ---
Held Hydralazine d/t BP being below Dr Lopez's parameters
[2024-03-04] MEDS: ACETAMINOPHEN 500 MG TABLET 1000 MG PO (21:08)
[2024-03-04] MEDS: LEVOTHYROXINE SODIUM 100 MCG TABLET 50 MCG PO (21:09)
[2024-03-04] MEDS: BENZONATATE 100 MG CAPSULE 200 MG PO (21:09)
[2024-03-04] MEDS: AMITRIPTYLINE HCL 50 MG TABLET PO (21:10)
[2024-03-04] MEDS: FERROUS SULFATE 325 MG TABLET PO (21:10)
[2024-03-04] MEDS: ATORVASTATIN CALCIUM 20 MG TABLET PO (21:10)
[2024-03-04 21:13] LABS: Glucometer 165 mg/dL (74-106)
[2024-03-05] VITALS (23 sets, daily range): BP systolic 113–179; BP diastolic 67–92; PULSE 68–98; TEMP 36.5–37.1; O2SAT 84–97; BMI 33.0
[2024-03-05] MEDS: IPRATROPIUM/ALBUTEROL SULFATE 3 ML AMPUL.NEB IH ×4 (04:07→23:22)
[2024-03-05] MEDS: HYDRALAZINE HCL 25 MG TABLET PO ×3 (06:10→22:36)
[2024-03-05 06:25] LABS: Eosinophils Percent Auto 0.3 % (0.9-7.0); Hematocrit 30.9 % (42.0-54.0); Hemoglobin 9.6 g/dL (14.0-18.0); Immature Granulocytes Abs Auto 0.06 10^3/uL (0.00-0.03); Immature Granulocytes Pct Auto 0.6 % (0.0-0.5); Lymphocytes Absolute Auto 0.5 10^3/uL (1.2-3.8); Lymphocytes Percent Auto 5.1 % (20.5-60.0); Mean Corpuscular HGB Conc 31.1 g/dL (29.9-35.2); Mean Corpuscular Hemoglobin 32.1 pg (25.9-34.0); Mean Corpuscular Volume 103.3 fL (80.0-94.0); Mean Platelet Volume 10.5 fL (9.5-13.5); Monocytes Percent Auto 9.4 % (1.7-12.0); Neutrophils Percent Auto 84.6 % (43.0-75.0); Platelet Count 191 10^3/uL (150-450); Red Blood Count 2.99 10^6/uL (4.70-6.10); Red Cell Distribution Width 14.6 % (11.0-15.0); White Blood Count 10.6 10^3/uL (4.0-11.0)
[2024-03-05 06:39] LABS: Alanine Aminotransferase 64 U/L (16-63); Albumin Globulin Ratio 0.5; Albumin Level 1.7 g/dL (3.4-5.0); Alkaline Phosphatase 70 U/L (46-116); Anion Gap 13.9; Aspartate Amino Transferase 33 U/L (15-37); BUN Creatinine Ratio 30.7; Bilirubin Total 0.6 mg/dL (0.2-1.0); Calcium 8.5 mg/dL (8.5-10.1); Chloride 109 mmol/L (98-107); Estimated GFR (African America 28 (>=60); Estimated GFR (Non-African Ame 23 (>=60); Globulin 3.5 g/dL; Glucose 127 mg/dL (74-106); Magnesium 1.7 mg/dL (1.8-2.4); Potassium 4.9 mmol/L (3.5-5.1); Sodium 143 mmol/L (136-145); Total Protein 5.2 g/dL (6.4-8.2)
--- NOTE | 2024-03-05 07:20 | XR_ITS ---
The [address] [address] Patient Name: JAJA FRANKLIN MRN: [id number] date: 1940 Sex: M Assigned Patient Location: [place] Current Patient Location: [place] Accession/Order Number: [id number] Exam Date: 03/05/2024 08:00 Report Date: 03/05/2024 08:17 At the request of: DERRICK AYALA Procedure: XR chest 1V EXAM: XR chest 1V HISTORY: PICC placement COMPARISON: 03/03/2024 TECHNIQUE: Portable AP FINDINGS: LUNGS: Low lung volumes. Mild basilar infiltrates, left greater than right VASCULATURE: No increased pulmonary vasculature. PLEURA: No pneumothorax, effusion, or pleural thickening. CARDIAC: No cardiomegaly or cardiac silhouette abnormality. MEDIASTINUM: Prominent mediastinum stable from the prior exam. Median sternotomy wires BONES: No fracture or visible bone lesion. OTHER: Right PICC catheter tip projects over the mid superior vena cava XR/XR chest 1V IMPRESSION: PICC catheter tip projects over the mid superior vena cava Electronically authenticated by: MONY AGUILAR Date: 03/05/2024 08:17
--- NOTE | 2024-03-05 07:39 | P.PN_ITS ---
Exam Constitutional Vital Signs, click to edit/add: Last Vital Signs Temp 97.7 F 03/04/24 23:39 Pulse 72 03/05/24 05:59 Resp 18 03/05/24 04:07 BP 143/77 H 03/05/24 06:10 Pulse Ox 97 03/05/24 04:07 O2 Del Method Nasal Cannula 03/05/24 04:07 O2 Flow Rate 1 03/05/24 04:07 Progress Note: Objective Labs Labs: Short CBC 03/05/24 Range/Units 05:45 WBC 10.6 (4.0-11.0) 10^3/uL Hgb 9.6 L (14.0-18.0) g/dL Hct 30.9 L (42.0-54.0) % Plt Count 191 (150-450) 10^3/uL BMP 03/05/24 05:45 Sodium 143 Potassium 4.9 Chloride 109 H Carbon Dioxide 25.0 BUN 81.0 H* Creatinine 2.64 H Glucose 127 H Calcium 8.5 Liver Function 03/05/24 Range/Units 05:45 Total Bilirubin 0.6 (0.2-1.0) mg/dL AST 33 (15-37) U/L ALT 64 H (16-63) U/L Alkaline Phosphatase 70 (46-116) U/L Albumin 1.7 L (3.4-5.0) g/dL Progress Note: A&P Assessment and Plan (1) Dehydration: (2) HTN (hypertension): (3) Hypothyroidism: (4) CKD stage 3 due to type 2 diabetes mellitus: (5) IDDM (insulin dependent diabetes mellitus): (6) Acute kidney injury superimposed on CKD: (7) Frequent falls: Plan Admission findings: Relative tachycardia with heart rate in the 90s despite being on beta-blockers, respiratory distress, acute hypoxia with O2 sat of 93% on 2 L., Leukocytosis, uncontrolled diabetes mellitus complicated by recent COVID, Now with healthcare acquired pneumonia right lower lobe- with acute hypoxia- aerosols routine, hypoxic at improving, maintain current antibiotics, add low-dose steroids, [id number] testing positive-out of quarantine 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 Will saline lock. Sounding more fluid overloaded today Chronic combined congestive heart failure-creatinine probably at his baseline, mild peripheral edema which is his baseline. Will start low-dose Bumex. Will hold off on combination diuretics for now, adding Invokana, BNP slightly elevated today compared to previous day but still baseline , Venous insufficiency and peripheral edema secondary to severe protein calorie malnutrition-compression hose and diet supplementation Anemia secondary to chronic kidney disease-monitor daily Down somewhat today, up slightly today, will add iron tablet by 1 more day to twice daily Atrial fibrillation-rate fairly well-controlled currently does have relative tachycardia in the despite being on beta-blockers Severe protein calorie malnutrition-diet management Frequent falls-head CT check from yesterday negative Hypothyroidism-check levels Hypomagnesemia-supplement, increase dose today to 3 times daily Hypercholesterolemia-continue with current medications Admission status: Patient admitted from a healthcare facility with pneumonia, medically necessary treatment will span 2 midnights-inpatient status ?
[2024-03-05] MEDS: CARVEDILOL 25 MG TABLET PO ×2 (09:05→20:29)
[2024-03-05] MEDS: SACUBITRIL/VALSARTAN 24 MG-26 MG TABLET 4 TAB PO ×2 (09:05→20:30)
[2024-03-05] MEDS: CANAGLIFLOZIN 100 MG TABLET PO (09:07)
[2024-03-05] MEDS: MAGNESIUM OXIDE 400 MG TABLET PO ×3 (09:07→22:37)
[2024-03-05] MEDS: ENSURE HP 237 ML LIQUID PO (09:08)
[2024-03-05] MEDS: METHYLPREDNISOLONE SOD SUCC PF 40 MG/ML VIAL IVP ×2 (09:08→16:09)
[2024-03-05] MEDS: ASPIRIN 81 MG TABLET.DR PO (09:08)
[2024-03-05] MEDS: ISOSORBIDE MONONITRATE 60 MG TAB.ER.24H 120 MG PO (09:08)
[2024-03-05] MEDS: APIXABAN 5 MG TABLET 2.5 MG PO ×2 (09:08→20:29)
[2024-03-05] MEDS: PROSTAT 15 GM PROTEIN/100 CAL 30 ML LIQUID PACKET PO (09:08)
[2024-03-05] MEDS: FERROUS SULFATE 325 MG TABLET PO ×2 (09:08→20:30)
[2024-03-05] MEDS: BUMETANIDE 1 MG TABLET PO (09:08)
[2024-03-05] MEDS: INSULIN DETEMIR 300 UNIT/3 ML INSULN.PEN 38 UNIT SUBQ (09:09)
--- NOTE | 2024-03-05 11:16 | REH.PTDLY ---
Physical Therapy Daily Note PT Daily Note/Assess Start: 03/05/24 11:02 Freq: Status: Active Protocol: Document 03/05/24 11:03 MARY (Rec: 03/05/24 11:16 MARY [id number]) Physical Therapy Daily Note/Assessment Time In 10:25 Time Out 10:38 Subjective Pt sitting up in chair upon arrival, reports he would like to stay up in chair. Therapeutic Exercise Minutes (minutes) 8 Therapeutic Exercise Units 1 Therapeutic Exercise Treatment Instructed in B LE exs seated of LAQ, HR, hip abd slides, marching 10x ea for improved strength. Therapeutic Activity Minutes (minutes) 4 Therapeutic Activity Units 0 Therapeutic Activity Comments Sit to stand transfer Mod A x2 with cues for pt to stand upright with RW. Pt nervous of falling, encouragement to stay standing required. Pt stood for about 60 seconds prior to needing to sit again. Total Therapy Minutes 12 Total Physical Therapy Units 1 Daily Note Summary Pt continues to be weak, able to stand for [address] Pt will need to return to facility for therapy to gain strength.
[2024-03-05] MEDS: PIPERACILLIN SODIUM/TAZOBACTAM 3.375 GM in 0.9 % SODIUM CHLORIDE 50 ML IV (13:09)
--- NOTE | 2024-03-05 13:16 | SWNOTE1 ---
SW sent updated progress notes, vitals, labs, med list, PT, and nursing notes to [facility].
[2024-03-05 19:31] LABS: Glucometer 266 mg/dL (74-106)
[2024-03-05] MEDS: BENZONATATE 100 MG CAPSULE 200 MG PO (20:28)
[2024-03-05] MEDS: AMITRIPTYLINE HCL 50 MG TABLET PO (22:35)
[2024-03-05] MEDS: LEVOTHYROXINE SODIUM 100 MCG TABLET 50 MCG PO (22:36)
[2024-03-05] MEDS: ATORVASTATIN CALCIUM 20 MG TABLET PO (22:36)
[2024-03-05] MEDS: INSULIN ASPART 300 UNIT/3 ML PEN SUBQ (22:39)
[2024-03-05 22:41] LABS: Glucometer 261 mg/dL (74-106)
[2024-03-06] VITALS (24 sets, daily range): BP systolic 106–120; BP diastolic 64–77; PULSE 57–95; TEMP 36.4–36.8; O2SAT 76–100
[2024-03-06] MEDS: METHYLPREDNISOLONE SOD SUCC PF 40 MG/ML VIAL IVP ×3 (00:31→17:58)
[2024-03-06] MEDS: PIPERACILLIN SODIUM/TAZOBACTAM 3.375 GM in 0.9 % SODIUM CHLORIDE 50 ML IV ×2 (02:36→14:21)
[2024-03-06] MEDS: IPRATROPIUM/ALBUTEROL SULFATE 3 ML AMPUL.NEB IH ×4 (04:02→22:27)
[2024-03-06] MEDS: MAGNESIUM OXIDE 400 MG TABLET PO ×3 (05:19→21:11)
[2024-03-06] MEDS: HYDRALAZINE HCL 25 MG TABLET PO ×2 (05:19→21:13)
[2024-03-06 06:24] LABS: Basophils Percent Auto 0.1 % (0.2-2.0); Hematocrit 29.1 % (42.0-54.0); Hemoglobin 9.3 g/dL (14.0-18.0); Immature Granulocytes Abs Auto 0.05 10^3/uL (0.00-0.03); Immature Granulocytes Pct Auto 0.6 % (0.0-0.5); Lymphocytes Absolute Auto 0.4 10^3/uL (1.2-3.8); Lymphocytes Percent Auto 4.9 % (20.5-60.0); Mean Corpuscular Hemoglobin 32.7 pg (25.9-34.0); Mean Corpuscular Volume 102.5 fL (80.0-94.0); Mean Platelet Volume 10.4 fL (9.5-13.5); Monocytes Absolute Auto 0.3 10^3/uL (0.3-0.8); Monocytes Percent Auto 4.3 % (1.7-12.0); Neutrophils Absolute Auto 7.1 10^3/uL (1.4-6.5); Neutrophils Percent Auto 90.1 % (43.0-75.0); Platelet Count 203 10^3/uL (150-450); Red Blood Count 2.84 10^6/uL (4.70-6.10); Red Cell Distribution Width 14.2 % (11.0-15.0); White Blood Count 7.8 10^3/uL (4.0-11.0)
[2024-03-06 06:42] LABS: Alanine Aminotransferase 63 U/L (16-63); Albumin Globulin Ratio 0.5; Albumin Level 1.8 g/dL (3.4-5.0); Alkaline Phosphatase 75 U/L (46-116); Anion Gap 12.1; Aspartate Amino Transferase 27 U/L (15-37); BUN Creatinine Ratio 28.4; Bilirubin Total 0.5 mg/dL (0.2-1.0); Calcium 8.5 mg/dL (8.5-10.1); Carbon Dioxide 24.3 mmol/L (21.0-32.0); Chloride 107 mmol/L (98-107); Estimated GFR (African America 26 (>=60); Estimated GFR (Non-African Ame 21 (>=60); Globulin 3.7 g/dL; Glucose 192 mg/dL (74-106); Magnesium 2.2 mg/dL (1.8-2.4); Potassium 4.4 mmol/L (3.5-5.1); Sodium 139 mmol/L (136-145); Total Protein 5.5 g/dL (6.4-8.2)
--- NOTE | 2024-03-06 07:00 | PC.NURSE ---
Called and notified M/S RN about Patient dropping to 76%. Patient recovered to 92% shortly after phone call.
--- NOTE | 2024-03-06 08:20 | P.PN_ITS ---
Progress Note: Subjective Subjective Interval history: Patient had a difficult night overnight, increasing cough and shortness of breath with some confusion. Better with the confusion and cough 1 to be placed back on supplemental oxygen. Exam Constitutional Vital Signs, click to edit/add: Last Vital Signs Temp 98.3 F 03/06/24 07:24 Pulse 84 03/06/24 07:24 Resp 16 03/06/24 07:24 BP 120/77 03/06/24 07:24 Pulse Ox 96 03/06/24 07:24 O2 Del Method Nasal Cannula 03/06/24 07:24 O2 Flow Rate 2 03/05/24 23:22 Documenting provider has reviewed patient's vital signs: yes Common normals: no apparent distress Chest Common normals: inspection of chest normal Respiratory Common normals: normal respiratory effort (Mild conversational dyspnea) and no retractions; not clear to ascultation bilaterally Auscultation: rhonchi (More pronounced rhonchi this morning) and egophony (Progressed to egophony bilateral) left lower and right lower; no rales Cardio Common normals: regular rate Rhythm: abnormal rhythm GI Common normals: Normal to inspection, nondistended, normoactive bowel sounds present, soft to palpation and non-tender Extremity Common normals: abnormal to inspection (1+ edema which is his baseline) Progress Note: Objective Labs Labs: Short CBC 03/06/24 Range/Units 05:30 WBC 7.8 (4.0-11.0) 10^3/uL Hgb 9.3 L (14.0-18.0) g/dL Hct 29.1 L (42.0-54.0) % Plt Count 203 (150-450) 10^3/uL BMP 03/06/24 05:30 Sodium 139 Potassium 4.4 Chloride 107 Carbon Dioxide 24.3 BUN 82.0 H* Creatinine 2.89 H Glucose 192 H Calcium 8.5 Liver Function 03/06/24 Range/Units 05:30 Total Bilirubin 0.5 (0.2-1.0) mg/dL AST 27 (15-37) U/L ALT 63 (16-63) U/L Alkaline Phosphatase 75 (46-116) U/L Albumin 1.8 L (3.4-5.0) g/dL Progress Note: A&P Assessment and Plan (1) Dehydration: (2) HTN (hypertension): (3) Hypothyroidism: (4) CKD stage 3 due to type 2 diabetes mellitus: (5) IDDM (insulin dependent diabetes mellitus): (6) Acute kidney injury superimposed on CKD: (7) Frequent falls: Plan Admission findings: Relative tachycardia with heart rate in the 90s despite being on beta-blockers, respiratory distress, acute hypoxia with O2 sat of 93% on 2 L., Leukocytosis, uncontrolled diabetes mellitus complicated by recent COVID, Now with healthcare acquired pneumonia right lower lobe- with acute hypoxia- Healthcare acquired pneumonia right lower lobe- with acute hypoxia-condition deteriorated overnight, was weaned off of supplemental oxygen had to be replaced back on 2 L. Had some confusion at the time of the hypoxia. Chest x-ray from yesterday now shows left lower lobe infiltrate as well. If condition deteriorated, will review antibiotics for possible adjustment. White blood cell count is improved today however. No further fevers. Altered mental status-related to the hypoxic episode, could also be owning. Improved this morning. But difficult overnight. Will reassess tonight. Already had CT scan from a fall no injury since the CT scan so would hold off on further testing [id number] testing positive-out of quarantine 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 Will saline lock. Sounding more fluid overloaded today Chronic combined congestive heart failure-creatinine probably at his baseline, progression of his BNP today-a little bit above his baseline. Just restarted Bumex yesterday we will so we will maintain that. Venous insufficiency and peripheral edema secondary to severe protein calorie malnutrition-compression hose and diet supplementation Anemia secondary to chronic kidney disease-monitor daily Down somewhat today, up slightly today, will add iron tablet by 1 more day to twice daily L Atrial fibrillation-rate fairly well-controlled currently does have relative tachycardia in the despite being on beta-blockers Severe protein calorie malnutrition-diet management Frequent falls-head CT check negative Hypothyroidism-check levels Hypomagnesemia-supplement, increase dose today to 3 times daily-continue to monitor Hypercholesterolemia-continue with current medications Admission status: Patient admitted from a healthcare facility with pneumonia resulting in healthcare acquired pneumonia, medically necessary treatment will span 2 midnights-inpatient status. Patient deteriorated overnight with change in mental status related to hypoxia, progression of infiltrates and now in bilateral lower lobes. Sputum culture showing multiple organisms. Cultures will not return until possibly tomorrow or 2 days. Maintain current antibiotics his white blood cell count is normal, adjust antibiotics tomorrow based on culture findings. Likely needs 2 more days of hospitalization with cultures pending and sensitivities likely not back for 48 hours and patient's overall condition deteriorated with increasing hypoxia and altered mental status ?
[2024-03-06] MEDS: BUMETANIDE 1 MG TABLET PO (09:04)
[2024-03-06] MEDS: SACUBITRIL/VALSARTAN 24 MG-26 MG TABLET 4 TAB PO ×2 (09:05→21:12)
[2024-03-06] MEDS: CANAGLIFLOZIN 100 MG TABLET PO (09:05)
[2024-03-06] MEDS: ASPIRIN 81 MG TABLET.DR PO (09:05)
[2024-03-06] MEDS: LEVOFLOXACIN IN DEXTROSE 5 % 500 MG/100 ML PIGGYBACK 100 MG IV (09:06)
[2024-03-06] MEDS: APIXABAN 5 MG TABLET 2.5 MG PO ×2 (09:06→21:14)
[2024-03-06] MEDS: CARVEDILOL 25 MG TABLET PO ×2 (09:06→21:14)
[2024-03-06] MEDS: ISOSORBIDE MONONITRATE 60 MG TAB.ER.24H 120 MG PO (09:06)
[2024-03-06] MEDS: FERROUS SULFATE 325 MG TABLET PO ×2 (09:06→21:11)
[2024-03-06] MEDS: INSULIN ASPART 300 UNIT/3 ML PEN SUBQ ×4 (09:07→21:17)
[2024-03-06] MEDS: INSULIN DETEMIR 300 UNIT/3 ML INSULN.PEN 38 UNIT SUBQ (09:08)
--- NOTE | 2024-03-06 09:09 | REH.PTDLY ---
Physical Therapy Daily Note PT Daily Note/Assess Start: 03/05/24 11:02 Freq: Status: Active Protocol: Document 03/06/24 09:04 RAJESHGEOFF (Rec: 03/06/24 09:09 MARY [id number]) Physical Therapy Daily Note/Assessment Time In 07:45 Time Out 08:10 Subjective Pt awake in bed upon arrival. Ready to get into chair Therapeutic Exercise Minutes (minutes) 12 Therapeutic Exercise Units 1 Therapeutic Exercise Treatment Instructed in supine B LE exs including AP, QS, SLR, heel slides, and hip abd slides 10x ea. AA needed with SLR, heel slides and hip abd slides. Seated B LE exs 10x ea with LAQ, marching, hip abd, and hip add squeezes. Therapeutic Activity Minutes (minutes) 11 Therapeutic Activity Units 1 Bed Mobility Ability Moderate Assist Therapeutic Activity Comments Requires Mod A x1 with supine to sit transfers. Min A to scoot to EOB for feet to touch floor once seated. Sit to stand transfer Min A x2 with bed slightly elevated. Cues for pt to side step, pt able to take 3 small steps with difficulty moving L LE. Needs to sit down, pt stands again after 2 min rest break and ambulates to chair with Min A x 2 and nursing helping pt to lift L LE. Mod A with transferring into chair as pt reports he cannot move L LE anymore and needs guided back to seated position. Total Therapy Minutes 23 Total Physical Therapy Units 2 Daily Note Summary Pt will benefit from more PT at DC at rehab to improve strength for ease of transfer and mobility, pt requires 2 assist at this time due to weakness.
--- NOTE | 2024-03-06 11:20 | SWNOTE1 ---
No discharge today for pt. SW sent updated progress notes, nursing notes, vitals, labs, diagnostic imaging, med list, and PT/OT notes to [facility].
[2024-03-06] MEDS: BENZONATATE 100 MG CAPSULE 200 MG PO ×2 (14:21→21:14)
--- NOTE | 2024-03-06 15:02 | SWNOTE1 ---
LESLEY did speak with Trinity from [facility] and they are going to call family to see if they want skill pt for awhile. Trinity expressed that family was told he would be in his co-pay days if skilled, but since he is pending medicaid and will likely qualify, then medicaid would cover. LESLEY let Dr. Lopez know. Trinity will start precert if family is agreeable.
[2024-03-06] MEDS: AMITRIPTYLINE HCL 50 MG TABLET PO (21:11)
[2024-03-06] MEDS: HYOSCYAMINE SULFATE 0.125 MG TAB.SUBL SL (21:12)
[2024-03-06] MEDS: ACETAMINOPHEN 500 MG TABLET 1000 MG PO (21:12)
[2024-03-06] MEDS: ONDANSETRON PF 4 MG/2 ML VIAL IV (21:12)
[2024-03-06] MEDS: PROSTAT 15 GM PROTEIN/100 CAL 30 ML LIQUID PACKET PO (21:13)
[2024-03-06] MEDS: LEVOTHYROXINE SODIUM 100 MCG TABLET 50 MCG PO (21:13)
[2024-03-06] MEDS: ENSURE HP 237 ML LIQUID PO (21:14)
[2024-03-06] MEDS: ATORVASTATIN CALCIUM 20 MG TABLET PO (21:14)
[2024-03-07] VITALS (22 sets, daily range): BP systolic 95–158; BP diastolic 58–78; PULSE 70–93; TEMP 36.3–36.6; O2SAT 87–98
[2024-03-07] MEDS: ALBUTEROL SULFATE 2.5 MG/3 ML VIAL NEB IH (00:29)
[2024-03-07] MEDS: PIPERACILLIN SODIUM/TAZOBACTAM 3.375 GM in 0.9 % SODIUM CHLORIDE 50 ML IV ×2 (01:03→13:22)
[2024-03-07] MEDS: METHYLPREDNISOLONE SOD SUCC PF 40 MG/ML VIAL IVP ×2 (01:04→13:21)
[2024-03-07] MEDS: IPRATROPIUM/ALBUTEROL SULFATE 3 ML AMPUL.NEB IH ×4 (04:40→22:21)
[2024-03-07] MEDS: MAGNESIUM OXIDE 400 MG TABLET PO ×2 (05:43→21:50)
[2024-03-07] MEDS: HYDRALAZINE HCL 25 MG TABLET PO (05:43)
[2024-03-07 06:08] LABS: Hematocrit 29.3 % (42.0-54.0); Hemoglobin 9.2 g/dL (14.0-18.0); Immature Granulocytes Abs Auto 0.05 10^3/uL (0.00-0.03); Immature Granulocytes Pct Auto 0.7 % (0.0-0.5); Lymphocytes Absolute Auto 0.4 10^3/uL (1.2-3.8); Lymphocytes Percent Auto 5.6 % (20.5-60.0); Mean Corpuscular HGB Conc 31.4 g/dL (29.9-35.2); Mean Corpuscular Hemoglobin 31.6 pg (25.9-34.0); Mean Corpuscular Volume 100.7 fL (80.0-94.0); Mean Platelet Volume 10.3 fL (9.5-13.5); Monocytes Absolute Auto 0.3 10^3/uL (0.3-0.8); Monocytes Percent Auto 4.5 % (1.7-12.0); Neutrophils Absolute Auto 6.7 10^3/uL (1.4-6.5); Neutrophils Percent Auto 89.2 % (43.0-75.0); Platelet Count 210 10^3/uL (150-450); Red Blood Count 2.91 10^6/uL (4.70-6.10); Red Cell Distribution Width 13.7 % (11.0-15.0); White Blood Count 7.5 10^3/uL (4.0-11.0)
[2024-03-07 06:30] LABS: Alanine Aminotransferase 99 U/L (16-63); Albumin Globulin Ratio 0.5; Albumin Level 1.7 g/dL (3.4-5.0); Alkaline Phosphatase 73 U/L (46-116); Anion Gap 12.3; Aspartate Amino Transferase 64 U/L (15-37); BUN Creatinine Ratio 28.2; Bilirubin Total 0.5 mg/dL (0.2-1.0); Calcium 8.5 mg/dL (8.5-10.1); Chloride 106 mmol/L (98-107); Estimated GFR (African America 22 (>=60); Estimated GFR (Non-African Ame 18 (>=60); Globulin 3.5 g/dL; Glucose 217 mg/dL (74-106); Magnesium 2.3 mg/dL (1.8-2.4); Potassium 5.3 mmol/L (3.5-5.1); Sodium 139 mmol/L (136-145); Total Protein 5.2 g/dL (6.4-8.2)
--- NOTE | 2024-03-07 07:26 | P.PN_ITS ---
Progress Note: Subjective Subjective Interval history: Patient more somnolent this morning. Does answer questions appropriately. Cough persisting but improved, breathing improved per patient. Exam Constitutional Vital Signs, click to edit/add: Last Vital Signs Temp 97.3 F L 03/07/24 04:11 Pulse 71 03/07/24 06:00 Resp 16 03/07/24 04:40 BP 120/74 03/07/24 04:11 Pulse Ox 93 L 03/07/24 06:00 O2 Del Method Room Air 03/07/24 04:40 O2 Flow Rate 1 03/07/24 00:29 Documenting provider has reviewed patient's vital signs: yes Common normals: no apparent distress Chest Common normals: inspection of chest normal Respiratory Common normals: normal respiratory effort (Improving) and no retractions; not clear to ascultation bilaterally Auscultation: rhonchi (Improved from previous day, not back to baseline); no rales and no egophony (Progressed to egophony bilateral) Cardio Common normals: regular rate Rhythm: abnormal rhythm GI Common normals: Normal to inspection, nondistended, normoactive bowel sounds present, soft to palpation and non-tender Extremity Common normals: abnormal to inspection (1+ edema which is his baseline) Progress Note: Objective Labs Labs: Short CBC 03/07/24 Range/Units 05:47 WBC 7.5 (4.0-11.0) 10^3/uL Hgb 9.2 L (14.0-18.0) g/dL Hct 29.3 L (42.0-54.0) % Plt Count 210 (150-450) 10^3/uL BMP 03/07/24 05:47 Sodium 139 Potassium 5.3 H Chloride 106 Carbon Dioxide 26.0 BUN 93.0 H* Creatinine 3.30 H Glucose 217 H Calcium 8.5 Liver Function 03/07/24 Range/Units 05:47 Total Bilirubin 0.5 (0.2-1.0) mg/dL AST 64 H (15-37) U/L ALT 99 H (16-63) U/L Alkaline Phosphatase 73 (46-116) U/L Albumin 1.7 L (3.4-5.0) g/dL Progress Note: A&P Assessment and Plan (1) Dehydration: (2) HTN (hypertension): (3) Hypothyroidism: (4) CKD stage 3 due to type 2 diabetes mellitus: (5) IDDM (insulin dependent diabetes mellitus): (6) Acute kidney injury superimposed on CKD: (7) Frequent falls: Plan Admission findings: Relative tachycardia with heart rate in the 90s despite being on beta-blockers, respiratory distress, acute hypoxia with O2 sat of 93% on 2 L., Leukocytosis, uncontrolled diabetes mellitus complicated by recent COVID, Now with healthcare acquired pneumonia right lower lobe- with acute hypoxia Healthcare acquired pneumonia right lower lobe-which is progressed to bilateral lower lobe pneumonia.-White blood cell count normal, overall breathing better he has been weaned off of supplemental oxygen so far this morning. Will see how he does with activities today. Altered mental status-related to the hypoxic episode, could also be sundowning. Stable [id number] testing positive-out of quarantine 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 Deteriorated today. Need to give back some IV fluids. Need to do this slowly. Will repeat labs in AM. Chronic combined congestive heart failure-creatinine elevated again today. BNP elevated but Ibuleve that at this point is more related to the renal failure. Will give back some IV fluids today. Likely that we will not need Bumex or Aldactone going forward. High-dose Entresto should keep him in a better fluid balance. Unable to discharge today due to need to giving back fluids for creatinine elevated today. Venous insufficiency and peripheral edema secondary to severe protein calorie m alnutrition-compression hose and diet supplementation Anemia secondary to chronic kidney disease-monitor daily Down somewhat today, up slightly today, will add iron tablet by 1 more day to twice daily Atrial fibrillation-rate fairly well-controlled currently does have relative tachycardia in the 90s despite being on beta-blockers Severe protein calorie malnutrition-diet management Frequent falls-head CT check negative Hypothyroidism-check levels Hypomagnesemia-supplement, increase dose today to 3 times daily-continue to monitor Hypercholesterolemia-continue with current medications Admission status: Patient admitted from a healthcare facility with pneumonia resulting in healthcare acquired pneumonia, medically necessary treatment will span 2 midnights-inpatient status. From a pneumonia standpoint he think we have made progress, renal failure though is worse today. Need to give back some IV fluids monitor creatinine closely. Delicate balance between his renal failure and heart failure. 1 additional day of hospitalization for continued medically necessary treatment. Continue to adjust medications for his combined conditions of acute renal failure and chr onic combined congestive heart failure. Anticipate discharge tomorrow ?
[2024-03-07] MEDS: ISOSORBIDE MONONITRATE 60 MG TAB.ER.24H 120 MG PO (09:11)
[2024-03-07] MEDS: SACUBITRIL/VALSARTAN 24 MG-26 MG TABLET 4 TAB PO ×2 (09:11→21:50)
[2024-03-07] MEDS: ASPIRIN 81 MG TABLET.DR PO (09:11)
[2024-03-07] MEDS: APIXABAN 5 MG TABLET 2.5 MG PO ×2 (09:11→21:49)
[2024-03-07] MEDS: FERROUS SULFATE 325 MG TABLET PO ×2 (09:12→21:49)
[2024-03-07] MEDS: PROSTAT 15 GM PROTEIN/100 CAL 30 ML LIQUID PACKET PO ×2 (09:12→21:49)
[2024-03-07] MEDS: CARVEDILOL 25 MG TABLET PO ×2 (09:12→21:50)
[2024-03-07] MEDS: 0.9 % SODIUM CHLORIDE 1,000 ML 200 ML IV (09:12)
[2024-03-07] MEDS: INSULIN DETEMIR 300 UNIT/3 ML INSULN.PEN 38 UNIT SUBQ (09:13)
--- NOTE | 2024-03-07 09:48 | SWNOTE1 ---
LESLEY received email from Trinity and she did speak with family and they do want him to get more therapy at [facility]. Trinity did start precert yesterday. No plans of discharge today. LESLEY to send updates once therapy works with pt.
--- NOTE | 2024-03-07 11:05 | REH.PTDLY ---
Physical Therapy Daily Note PT Daily Note/Assess Start: 03/05/24 11:02 Freq: Status: Active Protocol: Document 03/07/24 10:58 MARY (Rec: 03/07/24 11:05 MARY [id number]) Physical Therapy Daily Note/Assessment Time In 10:40 Time Out 10:55 Subjective Pt up in chair upon arrival. Agreeable to therapy, however pt states it's his knees that buckle and he cannot stand. Nursing states getting into the chair this morning was rough. Therapeutic Exercise Minutes (minutes) 5 Therapeutic Exercise Units 0 Therapeutic Exercise Treatment Instructed in seated exs 10x ea with AP, LAQ, marching, hip abd, and hip add squeeze for improved strength. Pt reports that exs always go ok, he just can't stand up. Therapeutic Activity Minutes (minutes) 6 Therapeutic Activity Units 1 Therapeutic Activity Comments Instructed pt in sit to stand transfer with cues to push off from chair and lean forward. therapist and nurse block pt's feet to prevent from sliding with Max A x2 pt tries to stand but lifts his arms up mid stance and plops back into chair. Cues for pt to hold onto chair until his weight is fully transferred onto his legs. Attempted again and pt unable to stand, reports his hands are slipping. Tried bringing jerome steady out and having pt pull himself up using bar. Pt unable to pull himself up with Max A x2. Pt stays in chair with feet elevated at this time. Total Therapy Minutes 11 Total Physical Therapy Units 1 Daily Note Summary Pt transfers are worse today compared to previous date. Pt is unable to stand up from chair this morning. Pt will need skilled therapy upon DC to become stronger. Pt is very fearful of falling.
[2024-03-07] MEDS: INSULIN ASPART 300 UNIT/3 ML PEN SUBQ ×3 (11:24→21:53)
--- NOTE | 2024-03-07 11:30 | SWNOTE1 ---
SW sent updates to [facility]. Updates included PT/OT notes, progress note, vitals, nursing notes, and med list.
[2024-03-07] MEDS: ENSURE HP 237 ML LIQUID PO (21:49)
[2024-03-07] MEDS: LEVOTHYROXINE SODIUM 100 MCG TABLET 50 MCG PO (21:49)
[2024-03-07] MEDS: AMITRIPTYLINE HCL 50 MG TABLET PO (21:49)
[2024-03-07] MEDS: ATORVASTATIN CALCIUM 20 MG TABLET PO (21:50)
[2024-03-08] VITALS (21 sets, daily range): BP systolic 101–138; BP diastolic 56–79; PULSE 70–82; TEMP 36.6; O2SAT 91–97
[2024-03-08] MEDS: METHYLPREDNISOLONE SOD SUCC PF 40 MG/ML VIAL IVP (01:14)
[2024-03-08] MEDS: PIPERACILLIN SODIUM/TAZOBACTAM 3.375 GM in 0.9 % SODIUM CHLORIDE 50 ML IV ×2 (01:15→15:27)
[2024-03-08] MEDS: IPRATROPIUM/ALBUTEROL SULFATE 3 ML AMPUL.NEB IH ×3 (04:48→16:02)
[2024-03-08 06:20] LABS: Basophils Percent Auto 0.1 % (0.2-2.0); Hematocrit 27.7 % (42.0-54.0); Immature Granulocytes Abs Auto 0.05 10^3/uL (0.00-0.03); Immature Granulocytes Pct Auto 0.6 % (0.0-0.5); Lymphocytes Absolute Auto 0.3 10^3/uL (1.2-3.8); Mean Corpuscular HGB Conc 32.5 g/dL (29.9-35.2); Mean Corpuscular Volume 98.6 fL (80.0-94.0); Mean Platelet Volume 10.4 fL (9.5-13.5); Monocytes Absolute Auto 0.6 10^3/uL (0.3-0.8); Monocytes Percent Auto 6.5 % (1.7-12.0); Neutrophils Absolute Auto 7.6 10^3/uL (1.4-6.5); Neutrophils Percent Auto 88.8 % (43.0-75.0); Platelet Count 195 10^3/uL (150-450); Red Blood Count 2.81 10^6/uL (4.70-6.10); Red Cell Distribution Width 13.4 % (11.0-15.0); White Blood Count 8.6 10^3/uL (4.0-11.0)
[2024-03-08 06:46] LABS: Alanine Aminotransferase 158 U/L (16-63); Albumin Globulin Ratio 0.5; Albumin Level 1.8 g/dL (3.4-5.0); Alkaline Phosphatase 66 U/L (46-116); Anion Gap 13.4; Aspartate Amino Transferase 96 U/L (15-37); BUN Creatinine Ratio 29.2; Bilirubin Total 0.5 mg/dL (0.2-1.0); Calcium 8.7 mg/dL (8.5-10.1); Carbon Dioxide 24.8 mmol/L (21.0-32.0); Chloride 106 mmol/L (98-107); Estimated GFR (African America 22 (>=60); Estimated GFR (Non-African Ame 18 (>=60); Globulin 3.3 g/dL; Glucose 198 mg/dL (74-106); Magnesium 2.4 mg/dL (1.8-2.4); Potassium 5.2 mmol/L (3.5-5.1); Sodium 139 mmol/L (136-145); Total Protein 5.1 g/dL (6.4-8.2)
--- NOTE | 2024-03-08 08:05 | XR_ITS ---
[address] [address] Patient Name: JAJA FRANKLIN MRN: [id number] date: 1940 Sex: M Assigned Patient Location: [place] Current Patient Location: [place] Accession/Order Number: [id number] Exam Date: 03/08/2024 08:58 Report Date: 03/08/2024 09:47 At the request of: DERRICK AYALA Procedure: XR chest 1V EXAMINATION: XR chest 1V HISTORY: Congestive heart failure, bilateral pneumonia COMPARISON: XR chest 03/05/2024 FINDINGS: LUNGS: Underexpanded lungs with new moderate opacities within right lung base. Persistent moderate opacities within right lung apex and mild stranding within left lung base. VASCULATURE: No increased pulmonary vasculature. PLEURA: No pneumothorax, effusion, or pleural thickening. CARDIAC: Stable cardiomegaly. MEDIASTINUM: Prior sternotomy. No new/suspicious widening. BONES: No fracture or visible bone lesion. OTHER: Right PICC line with tip near cavoatrial junction. XR/XR chest 1V IMPRESSION: 1. Low lung volume examination with moderate amount of new right basilar infiltrates suggestive of pneumonia. 2. Stable mild right apical opacities of uncertain etiology. 3. Trace amount left basilar atelectasis. 4. Stable cardiomegaly. 5. Right PICC line appearing in good position. Electronically authenticated by: AWAIS TELLO Date: 03/08/2024 09:47
--- NOTE | 2024-03-08 08:06 | P.PN_ITS ---
Progress Note: Subjective Subjective Interval history: Patient awake this morning. Very conversational. Minimal cough this morning. Exam Constitutional Vital Signs, click to edit/add: Last Vital Signs Temp 98 F 03/08/24 07:53 Pulse 72 03/08/24 07:53 Resp 18 03/08/24 07:53 BP 122/56 03/08/24 07:53 Pulse Ox 96 03/08/24 07:53 O2 Del Method Nasal Cannula 03/08/24 07:53 O2 Flow Rate 1.5 03/08/24 07:53 Documenting provider has reviewed patient's vital signs: yes Common normals: no apparent distress Chest Common normals: inspection of chest normal Respiratory Common normals: normal respiratory effort (Improving) and no retractions; not clear to ascultation bilaterally Auscultation: rhonchi (Improved from previous day, not back to baseline); no rales and no egophony (Progressed to egophony bilateral) Cardio Common normals: regular rate Rhythm: abnormal rhythm GI Common normals: Normal to inspection, nondistended, normoactive bowel sounds present, soft to palpation and non-tender Extremity Common normals: abnormal to inspection (1-2 + edema which is his baseline) Progress Note: Objective Labs Labs: Short CBC 03/08/24 Range/Units 05:25 WBC 8.6 (4.0-11.0) 10^3/uL Hgb 9.0 L (14.0-18.0) g/dL Hct 27.7 L (42.0-54.0) % Plt Count 195 (150-450) 10^3/uL BMP 03/08/24 05:25 Sodium 139 Potassium 5.2 H Chloride 106 Carbon Dioxide 24.8 BUN 96.0 H* Creatinine 3.29 H Glucose 198 H Calcium 8.7 Liver Function 03/08/24 Range/Units 05:25 Total Bilirubin 0.5 (0.2-1.0) mg/dL AST 96 H (15-37) U/L ALT 158 H (16-63) U/L Alkaline Phosphatase 66 (46-116) U/L Albumin 1.8 L (3.4-5.0) g/dL Progress Note: A&P Assessment and Plan (1) Dehydration: (2) HTN (hypertension): (3) Hypothyroidism: (4) CKD stage 3 due to type 2 diabetes mellitus: (5) IDDM (insulin dependent diabetes mellitus): (6) Acute kidney injury superimposed on CKD: (7) Frequent falls: Plan Admission findings: Relative tachycardia with heart rate in the 90s despite being on beta-blockers, respiratory distress, acute hypoxia with O2 sat of 93% on 2 L., Leukocytosis, uncontrolled diabetes mellitus complicated by recent COVID, Now with healthcare acquired pneumonia right lower lobe- with acute hypoxia Healthcare acquired pneumonia right lower lobe-which is progressed to bilateral lower lobe pneumonia.-White blood cell count remains normal, repeat chest x-ray, had hypoxic episode overnight Altered mental status-related to the hypoxic episode, could also be sundowning. Seems much better [id number] testing positive-out of quarantine 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-will cut back on steroids today Acute renal failure(is a baseline creatinine of around 2. Creatinine now over 3. Making over 150% above baseline. ) On top of chronic kidney disease stage III-only slightly improved from previous day after fluid bolus. Continue to monitor closely, needs to stay at least 1 more day Chronic combined congestive heart failure-BNP is actually better today after the fluid bolus yesterday. His peripheral edema is a combination of lymphedema due to severe protein calorie malnutrition and venous insufficiency. Will hold off on further diuretics. Maintain Entresto and beta-blockers. Venous insufficiency and peripheral edema secondary to severe protein calorie malnutrition-compression hose and diet supplementation Anemia secondary to chronic kidney disease-down slightly today. Continue to monitor. Atrial fibrillation-rate fairly well-controlled currently does have relative tachycardia in the 90s despite being on beta-blockers Severe protein calorie malnutrition-not taking manage drinks twice a day. Will encourage that. Frequent falls-head CT check negative Hypothyroidism-levels normal Hypomagnesemia-supplement, increase dose today to 3 times daily-continue to monitor Hypercholesterolemia-continue with current medications Hyperkalemia yesterday-improved slightly today. Continue to monitor. Likely related to Aldactone. Admission status: Patient admitted from a healthcare facility with pneumonia resulting in healthcare acquired pneumonia, medically necessary treatment will span 2 midnights-inpatient status. From a pneumonia standpoint he think we have made progress, renal failure though is worse today. Need to give back some IV fluids monitor creatinine closely. Delicate balance between his renal failure and heart failure. 1 additional day of hospitalization for continued medically necessary treatment. Continue to adjust medications for his combined conditions of acute renal failure and chronic combined congestive heart failure. Anticipate discharge tomorrow ?
[2024-03-08] MEDS: APIXABAN 5 MG TABLET 2.5 MG PO ×2 (09:58→20:25)
[2024-03-08] MEDS: 0.9 % SODIUM CHLORIDE 1,000 ML 250 ML IV (09:58)
[2024-03-08] MEDS: FERROUS SULFATE 325 MG TABLET PO ×2 (09:58→20:25)
[2024-03-08] MEDS: MAGNESIUM OXIDE 400 MG TABLET PO ×2 (09:58→20:25)
[2024-03-08] MEDS: PROSTAT 15 GM PROTEIN/100 CAL 30 ML LIQUID PACKET PO ×2 (09:59→20:25)
[2024-03-08] MEDS: SACUBITRIL/VALSARTAN 24 MG-26 MG TABLET 4 TAB PO ×2 (09:59→20:26)
[2024-03-08] MEDS: ASPIRIN 81 MG TABLET.DR PO (09:59)
[2024-03-08] MEDS: ISOSORBIDE MONONITRATE 60 MG TAB.ER.24H 120 MG PO (09:59)
[2024-03-08] MEDS: CARVEDILOL 25 MG TABLET PO ×2 (09:59→20:25)
--- NOTE | 2024-03-08 09:59 | PT.DAILY ---
Physical Therapy Daily Note PT Daily Note/Assess Start: 03/05/24 11:02 Freq: Status: Active Protocol: Document 03/08/24 09:55 AMIE (Rec: 03/08/24 09:59 AMIE [id number]) Physical Therapy Daily Note/Assessment Time In/Time Out Time In 09:30 Time Out 09:45 Pain In Pain N/A Pain Out Pain N/A Subjective Subjective Nursing requests for pt to remain in bed due to decline in transfer ability. They had to Andres lift him from chair yesterday due to this decline. When I arrive in room pt is sleeping but easily arroused. He denies wanting to get to EOB. Pt then reports the Dr told him to stay in bed today but can perform bed level ex with PT. Pt is agreeable to this. Therapeutic Exercise Time Therapeutic Exercise Minutes (minutes) 8 Therapeutic Exercise Units 1 Therapeutic Exercise Treatment Therapeutic Exercise Treatment Supine AP, QS, GS, heel slides (AA L), SLR (AA L), abd slides, SAQ, and hooklying add squeezes with AA to keep knees in flexed position as feet are sliding. Pt remains in supine with pillow under legs and HOB elevated per pt request. Pt keeps his eyes closed through some of session today. Total Physical Therapy Time Total Therapy Minutes 8 Total Physical Therapy Units 1 Summary Daily Note Summary Limited session due to decline in status. Pt is agreeable to bed level ex and does participate - he is just very fatigued/weak on this date. Would benefit from SNF to regain strength and endurance to return to PLOF.
[2024-03-08] MEDS: ENSURE HP 237 ML LIQUID PO ×2 (10:13→20:25)
[2024-03-08] MEDS: INSULIN DETEMIR 300 UNIT/3 ML INSULN.PEN 38 UNIT SUBQ (10:13)
--- NOTE | 2024-03-08 10:38 | SWNOTE1 ---
LESLEY sent over PT notes and other updates to Trinity at [facility] for precert. Pt is not discharging today, possibly one more day per doctor.
[2024-03-08] MEDS: LEVOFLOXACIN IN DEXTROSE 5 % 500 MG/100 ML PIGGYBACK 100 MG IV (10:48)
[2024-03-08] MEDS: INSULIN ASPART 300 UNIT/3 ML PEN SUBQ ×2 (10:49→15:32)
--- NOTE | 2024-03-08 12:30 | SWNOTE1 ---
Pt's son Myriam was in room. SW stopped in to talk to them about transport for the weekend. Pt was a jalen lift yesterday to get out of chair. Pt's son, Myriam, asked about family taking him over. SW did let him know that for pt's safety it may be a little difficult to get him in the car. Pt's son in agreement. Pt and son did agree that however he needs to be transported is fine. SW to let nursing know.
[2024-03-08] MEDS: 0.9 % SODIUM CHLORIDE 250 ML 10 ML IV (15:28)
--- NOTE | 2024-03-08 15:34 | SWNOTE1 ---
Pt's precert went to medical review. Pt will likely return to [facility] terminal worker at discharge. SW took packet to the floor. Pt will need stretcher transport. SW to set up.
--- NOTE | 2024-03-08 15:59 | SWNOTE1 ---
LESLEY spoke to son Roosevelt in room. LESLEY spoke with him about transport and he is agreeable to stretcher for safety. LESLEY called [facility] and set up stretcher, first available is 5:45pm. LESLEY notified nurse and Trinity at [facility]. Packet is on med/surge floor.
[2024-03-08] MEDS: BENZONATATE 100 MG CAPSULE 200 MG PO (17:17)
[2024-03-08] MEDS: AMITRIPTYLINE HCL 50 MG TABLET PO (21:26)
[2024-03-08] MEDS: ATORVASTATIN CALCIUM 20 MG TABLET PO (21:26)
[2024-03-08] MEDS: LEVOTHYROXINE SODIUM 100 MCG TABLET 50 MCG PO (21:26)
[2024-03-09] VITALS (22 sets, daily range): BP systolic 115–148; BP diastolic 70–74; PULSE 16–86; TEMP 36.2–36.8; O2SAT 65–96
[2024-03-09] MEDS: PIPERACILLIN SODIUM/TAZOBACTAM 3.375 GM in 0.9 % SODIUM CHLORIDE 50 ML IV ×2 (01:13→14:25)
[2024-03-09] MEDS: IPRATROPIUM/ALBUTEROL SULFATE 3 ML AMPUL.NEB IH ×4 (04:05→22:13)
[2024-03-09 06:07] LABS: Hematocrit 28.2 % (42.0-54.0); Hemoglobin 9.1 g/dL (14.0-18.0); Lymphocytes Absolute Auto 0.5 10^3/uL (1.2-3.8); Lymphocytes Percent Auto 4.9 % (20.5-60.0); Mean Corpuscular HGB Conc 32.3 g/dL (29.9-35.2); Mean Corpuscular Hemoglobin 31.9 pg (25.9-34.0); Mean Corpuscular Volume 98.9 fL (80.0-94.0); Mean Platelet Volume 10.2 fL (9.5-13.5); Monocytes Absolute Auto 1.2 10^3/uL (0.3-0.8); Monocytes Percent Auto 11.3 % (1.7-12.0); Neutrophils Absolute Auto 8.4 10^3/uL (1.4-6.5); Neutrophils Percent Auto 82.8 % (43.0-75.0); Platelet Count 178 10^3/uL (150-450); Red Blood Count 2.85 10^6/uL (4.70-6.10); Red Cell Distribution Width 13.4 % (11.0-15.0); White Blood Count 10.1 10^3/uL (4.0-11.0)
[2024-03-09 06:30] LABS: Alanine Aminotransferase 268 U/L (16-63); Albumin Globulin Ratio 0.5; Albumin Level 1.7 g/dL (3.4-5.0); Alkaline Phosphatase 64 U/L (46-116); Anion Gap 12.4; Aspartate Amino Transferase 155 U/L (15-37); BUN Creatinine Ratio 30.8; Bilirubin Total 0.5 mg/dL (0.2-1.0); Calcium 8.5 mg/dL (8.5-10.1); Chloride 109 mmol/L (98-107); Estimated GFR (African America 24 (>=60); Estimated GFR (Non-African Ame 20 (>=60); Globulin 3.3 g/dL; Glucose 165 mg/dL (74-106); Magnesium 2.6 mg/dL (1.8-2.4); Potassium 5.4 mmol/L (3.5-5.1); Sodium 141 mmol/L (136-145)
--- NOTE | 2024-03-09 07:16 | P.PN_ITS ---
Progress Note: Subjective Subjective Interval history: Patient is more again this morning. States cough is improving, still just generalized weak Exam Constitutional Vital Signs, click to edit/add: Last Vital Signs Temp 97.4 F L 03/09/24 04:00 Pulse 72 03/09/24 06:00 Resp 18 03/09/24 04:07 BP 131/70 03/09/24 04:00 Pulse Ox 93 L 03/09/24 04:07 O2 Del Method Room Air 03/09/24 04:07 O2 Flow Rate 1.5 03/08/24 07:53 Documenting provider has reviewed patient's vital signs: yes Common normals: no apparent distress Chest Common normals: inspection of chest normal Respiratory Common normals: normal respiratory effort (Improving) and no retractions; not clear to ascultation bilaterally Auscultation: rhonchi (Same as previous day); no rales (Unchanged) and no egophony (Progressed to egophony bilateral) Cardio Common normals: regular rate Rhythm: abnormal rhythm GI Common normals: Normal to inspection, nondistended, normoactive bowel sounds present, soft to palpation and non-tender Extremity Common normals: abnormal to inspection (1-2 + edema which is his baseline) Progress Note: Objective Labs Labs: Short CBC 03/09/24 Range/Units 05:45 WBC 10.1 (4.0-11.0) 10^3/uL Hgb 9.1 L (14.0-18.0) g/dL Hct 28.2 L (42.0-54.0) % Plt Count 178 (150-450) 10^3/uL BMP 03/09/24 05:45 Sodium 141 Potassium 5.4 H Chloride 109 H Carbon Dioxide 25.0 BUN 95.0 H* Creatinine 3.08 H Glucose 165 H Calcium 8.5 Liver Function 03/09/24 Range/Units 05:45 Total Bilirubin 0.5 (0.2-1.0) mg/dL AST 155 H (15-37) U/L ALT 268 H (16-63) U/L Alkaline Phosphatase 64 (46-116) U/L Albumin 1.7 L (3.4-5.0) g/dL Progress Note: A&P Assessment and Plan (1) Dehydration: (2) HTN (hypertension): (3) Hypothyroidism: (4) CKD stage 3 due to type 2 diabetes mellitus: (5) IDDM (insulin dependent diabetes mellitus): (6) Acute kidney injury superimposed on CKD: (7) Frequent falls: Plan Admission findings: Relative tachycardia with heart rate in the 90s despite being on beta-blockers, respiratory distress, acute hypoxia with O2 sat of 93% on 2 L., Leukocytosis, uncontrolled diabetes mellitus complicated by recent COVID, Now with healthcare acquired pneumonia right lower lobe- with acute hypoxia and resulting sepsis Healthcare acquired pneumonia right lower lobe-which is progressed to bilateral lower lobe pneumonia.-Stable, culture with multiple organisms on Gram stain but nothing predominantly grew. Continue with current antibiotics with white blood cell count improving. Chest x-ray from yesterday shows possible new right infiltrate, I felt that was present on admission. Altered mental status-related to the hypoxic episode, could also be sundowning. Seems much better-stable [id number] testing positive-out of quarantine 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-much of right change in steroids yesterday Acute renal failure(is a baseline creatinine of around 2. Creatinine now over 3. Making over 150% above baseline. ) Still above 3 for his creatinine. But better than previous day. Will repeat fluid bolus slowly over 8 hours. Chronic combined congestive heart failure-BNP slightly elevated today. Still prefer to maintain Entresto hold off on diuretics. Edema in lower extremities is going to be his baseline and his lung exam is essentially unchanged from previous day Venous insufficiency and peripheral edema secondary to severe protein calorie malnutrition-compression hose and diet supplementation Anemia secondary to chronic kidney disease-down slightly today. Continue to monitor. Atrial fibrillation-rate fairly well-controlled currently does have relative tachycardia in the 90s despite being on beta-blockers Severe protein calorie malnutrition-not taking manage drinks twice a day. Did better with protein intake yesterday Frequent falls-head CT check negative Elevated liver function test-likely secondary to passive congestion his abdominal exam is without significant tenderness. Hold off on testing at this time Hypothyroidism-levels normal Hypomagnesemia-supplement, increase dose today to 3 times daily-continue to monitor Hypercholesterolemia-continue with current medications Hyperkalemia-worse today-2 doses of Kayexalate Admission status: Patient admitted from a healthcare facility with pneumonia resulting in healthcare acquired pneumonia, medically necessary treatment will span 2 midnights-inpatient status. From a pneumonia standpoint he think we have made progress, renal failure though is somewhat better today. Continue to fluid resuscitation. Looking to his creatinine closer to his baseline of 2, he can be transferred back to his rehabilitation facility. Unable to do that today secondary to still elevated creatinine 150% above baseline and now with hyperkalemia ?
[2024-03-09 07:44] LABS: Glucometer 180 mg/dL (74-106)
[2024-03-09] MEDS: SODIUM POLYSTYRENE SULFON/SORB 15 GM/60 ML ORAL.SUSP 30 GM PO ×2 (08:41→12:03)
[2024-03-09] MEDS: 0.9 % SODIUM CHLORIDE 1,000 ML 125 ML IV (08:41)
[2024-03-09] MEDS: ISOSORBIDE MONONITRATE 60 MG TAB.ER.24H 120 MG PO (08:42)
[2024-03-09] MEDS: CARVEDILOL 25 MG TABLET PO ×2 (08:42→21:24)
[2024-03-09] MEDS: SACUBITRIL/VALSARTAN 24 MG-26 MG TABLET 4 TAB PO ×2 (08:42→21:23)
[2024-03-09] MEDS: ASPIRIN 81 MG TABLET.DR PO (08:43)
[2024-03-09] MEDS: APIXABAN 5 MG TABLET 2.5 MG PO ×2 (08:43→21:16)
[2024-03-09] MEDS: FERROUS SULFATE 325 MG TABLET PO ×2 (08:43→21:23)
[2024-03-09] MEDS: PROSTAT 15 GM PROTEIN/100 CAL 30 ML LIQUID PACKET PO (08:43)
[2024-03-09] MEDS: INSULIN ASPART 300 UNIT/3 ML PEN SUBQ ×2 (08:45→12:02)
[2024-03-09] MEDS: INSULIN DETEMIR 300 UNIT/3 ML INSULN.PEN 38 UNIT SUBQ (08:45)
--- NOTE | 2024-03-09 10:53 | PT.DAILY ---
Physical Therapy Daily Note PT Daily Note/Assess Start: 03/05/24 11:02 Freq: Status: Active Protocol: Document 03/09/24 09:45 [email or web address] (Rec: 03/09/24 10:53 [id number] [id number]) Physical Therapy Daily Note/Assessment Time In/Time Out Time In 09:45 Time Out 10:17 Subjective Subjective Patient agrees to RX. Main complaint is feeling weak and extreme fear of falling. Therapeutic Exercise Time Therapeutic Exercise Minutes (minutes) 0 Therapeutic Exercise Units 5 Therapeutic Exercise Treatment Therapeutic Exercise Treatment Supine exercises with AP, QS, GS to warm up prior to movement. Therapeutic Activity Time Therapeutic Activity Minutes (minutes) 27 Therapeutic Activity Units 2 Therapeutic Activity Treatment Bed Mobility Ability Moderate Assist,Maximum Assist Chair Transfer Ability Total Assist Therapeutic Activity Comments Patient able to move from supine to sit with moderate assistance. Verbal cues to ease feet to edge of bed, then moderate assistance to push up into sitting with verbal cues on using railing, we also kept HOB elevated to assist. Once sitting was max assist to scoot fwd. allowing B LE's to touch on floor. EOB sitting x5 min. Attempted sit to stand at RW 3x with max assist x2. Patient gives full effort but is unable to come into standing. After rest break we attempted sit to stand x2 with max assist x2 using jerome steady, again patient is unable to come into full standing. At this time was unsafe to transfer into chair for both patient and caregivers. Sit to supine mod assist with patient able to lower self to side and then required mod assist for LE'S. Once in bed patient required mod assist with rolling and repositioning. Total Physical Therapy Time Total Therapy Minutes 27 Total Physical Therapy Units 7 Summary Daily Note Summary Patient gives max effort during RX, however due to continued declining strength was able to come into full stand with 5 full attempts made with max assist x2. At this time we were unable to safely transfer patient into chair due to weakness. Patient was returned to bed with all needs being met post RX. Recommend SNF at [place] for patient to regain strength in order to be able to safely transfer, ambulate and regain PLOF.
[2024-03-09 11:46] LABS: Glucometer 247 mg/dL (74-106)
[2024-03-09 16:25] LABS: Glucometer 179 mg/dL (74-106)
--- NOTE | 2024-03-09 18:58 | PC.NURSE ---
Patient's room has been changed due to leaking ceiling. Family is aware as they are present.
[2024-03-09] MEDS: LEVOTHYROXINE SODIUM 100 MCG TABLET 50 MCG PO (21:16)
[2024-03-09] MEDS: ATORVASTATIN CALCIUM 20 MG TABLET PO (21:23)
[2024-03-09] MEDS: AMITRIPTYLINE HCL 50 MG TABLET PO (21:24)
[2024-03-09] MEDS: DICYCLOMINE HCL 10 MG CAPSULE PO (23:39)
[2024-03-10] VITALS (22 sets, daily range): BP systolic 124–157; BP diastolic 69–88; PULSE 80–93; TEMP 36.4–36.8; O2SAT 93–98
[2024-03-10] MEDS: PIPERACILLIN SODIUM/TAZOBACTAM 3.375 GM in 0.9 % SODIUM CHLORIDE 50 ML IV ×2 (01:03→14:10)
[2024-03-10] MEDS: ALBUMIN 25% PREMIX VIAL 25 GM/100 ML IV (02:33)
[2024-03-10] MEDS: BUMETANIDE 1 MG/4 ML VIAL IVP (02:33)
[2024-03-10] MEDS: HYDRALAZINE HCL 25 MG TABLET PO ×2 (05:57→21:10)
[2024-03-10 07:25] LABS: Hematocrit 25.9 % (42.0-54.0); Hemoglobin 8.3 g/dL (14.0-18.0); Mean Corpuscular Hemoglobin 32.3 pg (25.9-34.0); Mean Corpuscular Volume 100.8 fL (80.0-94.0); Mean Platelet Volume 10.6 fL (9.5-13.5); Platelet Count 158 10^3/uL (150-450); Red Blood Count 2.57 10^6/uL (4.70-6.10); Red Cell Distribution Width 13.5 % (11.0-15.0); White Blood Count 9.7 10^3/uL (4.0-11.0)
[2024-03-10 07:32] LABS: Ammonia 25 umol/L (11-32)
[2024-03-10 07:50] LABS: Albumin Globulin Ratio 1.1; Albumin Level 2.8 g/dL (3.4-5.0); Alkaline Phosphatase 82 U/L (46-116); Anion Gap 13.5; Aspartate Amino Transferase 340 U/L (15-37); BUN Creatinine Ratio 32.1; Bilirubin Total 0.8 mg/dL (0.2-1.0); Calcium 8.4 mg/dL (8.5-10.1); Chloride 109 mmol/L (98-107); Estimated GFR (African America 25 (>=60); Estimated GFR (Non-African Ame 20 (>=60); Globulin 2.5 g/dL; Glucose 104 mg/dL (74-106); Magnesium 2.6 mg/dL (1.8-2.4); Potassium 3.5 mmol/L (3.5-5.1); Sodium 144 mmol/L (136-145); Total Protein 5.3 g/dL (6.4-8.2)
[2024-03-10 07:54] LABS: Alanine Aminotransferase 742 U/L (16-63)
[2024-03-10 08:02] LABS: Lymphocytes Absolute Manual 0.97 10^3/uL (1.20-3.80); Monocytes Absolute Manual 0.67 10^3/uL (0.30-0.80); Segmented Neut Absolute Manual 8.05 10^3/uL (1.4-6.5)
--- NOTE | 2024-03-10 08:25 | XR_ITS ---
The [address] [address] Patient Name: JAJA FRANKLIN MRN: [id number] date: 1940 Sex: M Assigned Patient Location: [place] Current Patient Location: Accession/Order Number: [id number] Exam Date: 03/10/2024 10:00 Report Date: 03/10/2024 10:57 At the request of: DERRICK AYALA Procedure: XR chest 1V PROCEDURE: XR chest 1V DATE: 03/10/2024 9:00 AM CDT COMPARISONS: 03/08/2024 CLINICAL INDICATION: 83 years Male follow up pneumonia FINDINGS: Heart appears somewhat prominent, stable poststernotomy changes are again identified right arm PICC line is in stable position Increased interstitial markings are noted of the infrahilar regions and bases bilaterally. A few scattered increased interstitial markings are noted throughout the remainder of the lungs. This is a stable finding. The lungs are hypoaerated and this may all represent atelectasis. Alternatively, this could represent some interstitial fluid due to congestion. The possibility of these increased markings representing some inflammatory infiltrate is not excluded but considered less likely. There is no evidence of pleural effusion or pneumothorax. XR/XR chest 1V IMPRESSION: Chest is similar to previous exam of 03/08/2024 and 03/05/2024. Etiology of the increased markings described above is unclear. Atelectasis is most likely. Some interstitial fluid is a possibility. Inflammatory infiltrate seen less likely. Electronically authenticated by: JILLIAN MELLO Date: 03/10/2024 10:57
--- NOTE | 2024-03-10 08:25 | US_ITS ---
The [address] [address] Patient Name: JAJA FRANKLIN MRN: [id number] date: 1940 Sex: M Assigned Patient Location: MS Current Patient Location: MS Accession/Order Number: [id number] Exam Date: 03/10/2024 19:00 Report Date: 03/11/2024 21:31 At the request of: DERRICK AYALA Procedure: US right upper quadrant US right upper quadrant 03/10/2024 6:00 PM CDT History: . Right upper quadrant abdominal pain. Comparison: None Technique: Transabdominal grayscale, color Doppler, and spectral Doppler imaging of the right upper quadrant of the abdomen was performed. Findings: The liver is normal in size and sonographic appearance. The main portal vein is patent with color Doppler signal demonstrating normal directional flow. There is normal venous spectral Doppler phasicity. The gallbladder is surgically absent. The common bile duct measures 5 mm. The pancreas is normal. The right kidney is normal in size. There is a hypoechoic rim surrounding the renal cortex, reflecting perinephric fluid. This can be seen in the setting of renal failure. There is a dominant anechoic cyst in the upper pole measuring 12 x 13 x 14 mm. US/US right upper quadrant Impression: 1. Status post cholecystectomy. 2. Mild perirenal edema, suggesting possible renal failure. Electronically authenticated by: MOHIT COLLINS Date: 03/11/2024 21:31
--- NOTE | 2024-03-10 08:25 | XR_ITS ---
The [address] [address] Patient Name: JAJA FRANKLIN MRN: [id number] date: 1940 Sex: M Assigned Patient Location: MS Current Patient Location: MS Accession/Order Number: [id number] Exam Date: 03/10/2024 10:00 Report Date: 03/10/2024 10:59 At the request of: DERRICK AYALA Procedure: XR abdomen min 2V EXAMINATION: XR abdomen min 2V, 03/10/2024 10:00 AM EDT HISTORY: abd pain COMPARISON: None. TECHNIQUE: Upright and supine views of the abdomen obtained. FINDINGS: Medical devices: None. Gaseous prominence of a loop of redundant sigmoid colon projecting over the right abdomen, without rufino bowel dilatation to suggest obstruction. No appreciable radiodense urinary calculi. No definite free intraperitoneal gas. XR/XR abdomen min 2V IMPRESSION: 1. Gaseous prominence of a loop of redundant sigmoid colon projecting over the right abdomen, without rufino bowel dilatation to suggest obstruction Electronically authenticated by: ANABELLA SERRANO Date: 03/10/2024 10:59
--- NOTE | 2024-03-10 08:43 | P.PN_ITS ---
Progress Note: Subjective Subjective Interval history: Patient much more lethargic this morning had a rough night. Difficulty sleeping. Discussed with nurses had some respiratory distress and given Bumex overnight. Also diarrhea from the Kayexalate. Exam Constitutional Vital Signs, click to edit/add: Last Vital Signs Temp 98.2 F 03/10/24 04:00 Pulse 85 03/10/24 07:53 Resp 20 03/10/24 04:00 BP 153/73 H 03/10/24 05:57 Pulse Ox 95 03/10/24 04:00 O2 Del Method Nasal Cannula 03/10/24 04:00 O2 Flow Rate 2 03/10/24 04:00 Documenting provider has reviewed patient's vital signs: yes Common normals: no apparent distress Chest Common normals: inspection of chest normal Respiratory Common normals: no retractions; abnormal respiratory effort (Some conversational dyspnea this morning) and not clear to ascultation bilaterally Auscultation: rales (Rales this morning) and rhonchi (Same as previous day); no egophony (Progressed to egophony bilateral) Cardio Common normals: regular rate Rhythm: abnormal rhythm GI Common normals: Normal to inspection, nondistended, normoactive bowel sounds present, soft to palpation and non-tender Extremity Common normals: abnormal to inspection (1-2 + edema which is his baseline) Progress Note: Objective Labs Labs: Short CBC 03/10/24 Range/Units 06:05 WBC 9.7 (4.0-11.0) 10^3/uL Hgb 8.3 L (14.0-18.0) g/dL Hct 25.9 L (42.0-54.0) % Plt Count 158 (150-450) 10^3/uL BMP 03/10/24 06:05 Sodium 144 Potassium 3.5 Chloride 109 H Carbon Dioxide 25.0 BUN 96.0 H* Creatinine 2.99 H Glucose 104 Calcium 8.4 L Liver Function 03/10/24 Range/Units 06:05 Total Bilirubin 0.8 (0.2-1.0) mg/dL AST 340 H (15-37) U/L ALT 742 H* (16-63) U/L Alkaline Phosphatase 82 (46-116) U/L Albumin 2.8 L (3.4-5.0) g/dL Progress Note: A&P Assessment and Plan (1) Dehydration: (2) HTN (hypertension): (3) Hypothyroidism: (4) CKD stage 3 due to type 2 diabetes mellitus: (5) IDDM (insulin dependent diabetes mellitus): (6) Acute kidney injury superimposed on CKD: (7) Frequent falls: Plan Admission findings: Relative tachycardia with heart rate in the 90s despite being on beta-blockers, respiratory distress, acute hypoxia with O2 sat of 93% on 2 L., Leukocytosis, uncontrolled diabetes mellitus complicated by recent COVID, Now with healthcare acquired pneumonia right lower lobe- with acute hypoxia and resulting sepsis Healthcare acquired pneumonia right lower lobe-which is progressed to bilateral lower lobe pneumonia. Repeating chest today. White blood cell count stable. More respiratory distress but I think that may be more heart failure related to pneumonia Altered mental status-related to the hypoxic episode, could also be sundowning. Seems much better-stable [id number] testing positive-out of quarantine 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-better since off of steroids Acute renal failure(is a baseline creatinine of around 2. Creatinine just under 3 this morning. With an exacerbation of his acute combined congestive heart failure. Will give Bumex this morning., Tolerated better by drip in the past. Chronic combined congestive heart failure-BNP is better right probably to better. His baseline BNP may be in the 3-4000's. Trying to improve renal function with small fluid boluses last 3 days. Heart failure probably more predominant now than the renal failure. Try patient on albumin and Bumex drip today. Venous insufficiency and peripheral edema secondary to severe protein calorie malnutrition-compression hose and diet supplementation-patient not eating. This is going to be progressive with not improving his heart failure if he can get his protein level built up. Giving 1 dose of albumin with a Bumex drip today. Anemia secondary to chronic kidney disease-down slightly today. Continue to monitor. Atrial fibrillation-rate fairly well-controlled currently does have relative tachycardia in the 90 despite being on beta-blockers Severe protein calorie malnutrition-no significant improvement since admission. Patient not eating well, intermittently taking protein shakes. Frequent falls-head CT check negative Elevated liver function test-likely secondary to passive congestion his abdominal exam is without significant tenderness. Checking ultrasound abdomen today as his levels are higher. Still could be just passive from the heart failure. Hypothyroidism-levels normal Hypomagnesemia-supplement, elevated yesterday and today's will hold off on dosing currently Hypercholesterolemia-continue with current medications Hyperkalemia--resolved Admission status: Patient admitted from a healthcare facility with pneumonia resulting in healthcare acquired pneumonia, medically necessary treatment will span 2 midnights-inpatient status. Healthcare acquired pneumonia status still stable. Checking chest x-ray. His biggest issue is his acute and chronic combined congestive heart failure and renal failure. Likely here 2 more days to document stability ?
[2024-03-10] MEDS: CARVEDILOL 25 MG TABLET PO ×2 (09:17→20:46)
[2024-03-10] MEDS: SACUBITRIL/VALSARTAN 24 MG-26 MG TABLET 2 TAB PO ×2 (09:17→20:51)
[2024-03-10] MEDS: ISOSORBIDE MONONITRATE 60 MG TAB.ER.24H 120 MG PO (09:17)
[2024-03-10] MEDS: ALBUMIN HUMAN 25 GM/100 ML PREMIX IV ×2 (09:17→10:30)
[2024-03-10] MEDS: ENSURE HP 237 ML LIQUID PO (09:17)
[2024-03-10] MEDS: PROSTAT 15 GM PROTEIN/100 CAL 30 ML LIQUID PACKET PO (09:17)
[2024-03-10] MEDS: BUMETANIDE 10 MG in 0.9 % SODIUM CHLORIDE 160 ML IV (09:17)
[2024-03-10] MEDS: FERROUS SULFATE 325 MG TABLET PO ×2 (09:17→20:47)
[2024-03-10] MEDS: DICYCLOMINE HCL 10 MG CAPSULE PO ×2 (09:18→20:46)
[2024-03-10] MEDS: ASPIRIN 81 MG TABLET.DR PO (09:18)
[2024-03-10] MEDS: APIXABAN 5 MG TABLET 2.5 MG PO ×2 (09:18→20:46)
[2024-03-10] MEDS: INSULIN DETEMIR 300 UNIT/3 ML INSULN.PEN 38 UNIT SUBQ (09:19)
[2024-03-10] MEDS: LEVOFLOXACIN IN DEXTROSE 5 % 500 MG/100 ML PIGGYBACK 100 MG IV (11:13)
[2024-03-10] MEDS: IPRATROPIUM/ALBUTEROL SULFATE 3 ML AMPUL.NEB IH ×2 (12:00→16:24)
[2024-03-10] MEDS: INSULIN ASPART 300 UNIT/3 ML PEN SUBQ ×2 (16:48→21:15)
[2024-03-10] MEDS: LEVOTHYROXINE SODIUM 100 MCG TABLET 50 MCG PO (21:04)
[2024-03-10] MEDS: ACETAMINOPHEN 500 MG TABLET 1000 MG PO (21:08)
[2024-03-10] MEDS: AMITRIPTYLINE HCL 50 MG TABLET PO (21:09)
[2024-03-10] MEDS: TEMAZEPAM 15 MG CAPSULE PO (21:09)
[2024-03-10] MEDS: BENZONATATE 100 MG CAPSULE 200 MG PO (21:09)
[2024-03-10] MEDS: ATORVASTATIN CALCIUM 20 MG TABLET PO (21:10)
[2024-03-11] VITALS (31 sets, daily range): BP systolic 111–175; BP diastolic 63–89; PULSE 72–92; TEMP 36.4–36.9; O2SAT 86–98
[2024-03-11] MEDS: PIPERACILLIN SODIUM/TAZOBACTAM 3.375 GM in 0.9 % SODIUM CHLORIDE 50 ML IV (02:17)
[2024-03-11] MEDS: HYDRALAZINE HCL 25 MG TABLET PO ×3 (05:47→21:24)
[2024-03-11] MEDS: BENZONATATE 100 MG CAPSULE 200 MG PO (05:48)
[2024-03-11 05:49] LABS: Eosinophils Absolute Auto 0.1 10^3/uL (0.0-0.7); Immature Granulocytes Abs Auto 0.11 10^3/uL (0.00-0.03); Immature Granulocytes Pct Auto 1.5 % (0.0-0.5); Lymphocytes Absolute Auto 0.6 10^3/uL (1.2-3.8); Lymphocytes Percent Auto 7.7 % (20.5-60.0); Mean Corpuscular Hemoglobin 32.7 pg (25.9-34.0); Mean Corpuscular Volume 99.1 fL (80.0-94.0); Mean Platelet Volume 10.2 fL (9.5-13.5); Monocytes Absolute Auto 0.7 10^3/uL (0.3-0.8); Monocytes Percent Auto 9.3 % (1.7-12.0); Neutrophils Absolute Auto 5.8 10^3/uL (1.4-6.5); Neutrophils Percent Auto 80.5 % (43.0-75.0); Platelet Count 117 10^3/uL (150-450); Red Blood Count 2.14 10^6/uL (4.70-6.10); Red Cell Distribution Width 13.2 % (11.0-15.0); White Blood Count 7.2 10^3/uL (4.0-11.0)
[2024-03-11 05:56] LABS: Hematocrit 21.2 % (42.0-54.0)
[2024-03-11 06:04] LABS: Alanine Aminotransferase 487 U/L (16-63); Albumin Globulin Ratio 1.3; Albumin Level 2.4 g/dL (3.4-5.0); Alkaline Phosphatase 72 U/L (46-116); Anion Gap 11.2; Aspartate Amino Transferase 157 U/L (15-37); BUN Creatinine Ratio 30.4; Bilirubin Total 0.7 mg/dL (0.2-1.0); Calcium 7.7 mg/dL (8.5-10.1); Carbon Dioxide 27.6 mmol/L (21.0-32.0); Chloride 112 mmol/L (98-107); Estimated GFR (African America 26 (>=60); Estimated GFR (Non-African Ame 21 (>=60); Globulin 1.9 g/dL; Glucose 127 mg/dL (74-106); Sodium 148 mmol/L (136-145); Total Protein 4.3 g/dL (6.4-8.2)
[2024-03-11 06:24] LABS: Ammonia 387 umol/L (11-32); Potassium 2.8 mmol/L (3.5-5.1)
--- NOTE | 2024-03-11 08:17 | P.PN_ITS ---
Progress Note: Subjective Subjective Interval history: Patient up in bed eating, looks more awake than yesterday. Still seems slow with his speech. Very fatigued Exam Constitutional Vital Signs, click to edit/add: Last Vital Signs Temp 97.6 F 03/11/24 04:00 Pulse 86 03/11/24 08:00 Resp 20 03/11/24 04:00 BP 127/70 03/11/24 05:47 Pulse Ox 96 03/11/24 04:00 O2 Del Method Nasal Cannula 03/11/24 04:00 O2 Flow Rate 2 03/11/24 04:00 Documenting provider has reviewed patient's vital signs: yes Common normals: no apparent distress (Not distressed but very fatigued) Chest Common normals: inspection of chest normal Respiratory Common normals: normal respiratory effort (Breathing easier this morning) and no retractions; not clear to ascultation bilaterally Auscultation: rhonchi (Same as previous day); no rales (Resolved) and no egophony (Progressed to egophony bilateral) Cardio Common normals: regular rate Rhythm: abnormal rhythm GI Common normals: Normal to inspection, nondistended, normoactive bowel sounds present, soft to palpation and non-tender Extremity Common normals: abnormal to inspection (1+ edema which is better than previous day) Neuro Common normals: oriented x3 (Just overall generalized weakness) Progress Note: Objective Labs Labs: Short CBC 03/11/24 Range/Units 05:15 WBC 7.2 (4.0-11.0) 10^3/uL Hgb 7.0 L (14.0-18.0) g/dL Hct 21.2 L* (42.0-54.0) % Plt Count 117 L (150-450) 10^3/uL BMP 03/11/24 05:15 Sodium 148 H Potassium 2.8 L* Chloride 112 H Carbon Dioxide 27.6 BUN 88.0 H* Creatinine 2.89 H Glucose 127 H Calcium 7.7 L Liver Function 03/11/24 Range/Units 05:15 Total Bilirubin 0.7 (0.2-1.0) mg/dL AST 157 H (15-37) U/L ALT 487 H (16-63) U/L Alkaline Phosphatase 72 (46-116) U/L Albumin 2.4 L (3.4-5.0) g/dL Progress Note: A&P Assessment and Plan (1) Dehydration: (2) HTN (hypertension): (3) Hypothyroidism: (4) CKD stage 3 due to type 2 diabetes mellitus: (5) IDDM (insulin dependent diabetes mellitus): (6) Acute kidney injury superimposed on CKD: (7) Frequent falls: Plan Admission findings: Relative tachycardia with heart rate in the 90s despite being on beta-blockers, respiratory distress, acute hypoxia with O2 sat of 93% on 2 L., Leukocytosis, uncontrolled diabetes mellitus complicated by recent COVID, Now with healthcare acquired pneumonia right lower lobe- with acute hypoxia and resulting sepsis Healthcare acquired pneumonia right lower lobe-which is progressed to bilateral lower lobe pneumonia. Rhonchi are persisting. Overall is improved from a respiratory standpoint. Try to obtain sputum culture again with persistence of bronchi and hypoxia persisting will change antibiotics. Altered mental status-related to the hypoxic episode, could also be sundowning. Seems much better--just overall generalized weakness [id number] testing positive-out of quarantine 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-better since off of steroids Acute renal failure(is a baseline creatinine of around 2. Creatinine is better today after Bumex drip yesterday. Chronic combined congestive heart failure-BNP elevated which is not unanticipated after the Bumex drip yesterday would improve that likely tomorrow. Edema is better, rales are better-Bumex drip seemed to improve things without a ffecting his chronic kidney disease Venous insufficiency and peripheral edema secondary to severe protein calorie malnutrition-compression hose and diet supplementation-patient not eating. This is going to be progressive with not improving his heart failure if he can get his protein level built up. Anemia secondary to chronic kidney disease-hemoglobin down significantly today. Suspect upper gastrointestinal bleeding which is resulted in acute upper gastrointestinal blood loss anemia-type cross and transfuse 2 units, and CBC later today. Start IV Protonix twice daily. Atrial fibrillation-rate fairly well-controlled currently does have relative tachycardia in the despite being on beta-blockers Severe protein calorie malnutrition-will continue to follow albumin, patient is not eating well. Frequent falls-head CT check negative Elevated liver function test-likely secondary to passive congestion his abdominal exam is without significant tenderness. Check an ultrasound today. With diuresis yesterday, liver function is improved despite elevation in ammonia level Hyperammonemia-lactulose this morning. Repeat ammonia after blood transfusion. Hoping this is part of his weakness. Hypothyroidism-levels normal Hypomagnesemia-supplement, elevated yesterday and today's will hold off on dosing currently Hypercholesterolemia-continue with current medications Hyperkalemia--resolved Hypokalemia-supplement with IV boluses. Add orals as well. Weakness-had conversation with family about his overall condition. Some things better some things worse, just overall has been getting worse in terms of his generalized weakness and his inability to do to improve his protein status. Will see how the next day or 2 plays out. Did discuss the possibility of adding hospice to his overall care once discharged. Admission status: Patient admitted from a healthcare facility with pneumonia resulting in healthcare acquired pneumonia, medically necessary treatment will span 2 midnights-inpatient status. Patient with acute blood loss anemia now, likely here an additional 2 days. ?
[2024-03-11] MEDS: POTASSIUM CHLORIDE 40 MEQ in 0.9 % SODIUM CHLORIDE 250 ML 67.5 MEQ IV (08:22)
[2024-03-11] MEDS: CARVEDILOL 25 MG TABLET PO ×2 (08:31→20:34)
[2024-03-11] MEDS: PROSTAT 15 GM PROTEIN/100 CAL 30 ML LIQUID PACKET PO (08:31)
[2024-03-11] MEDS: ISOSORBIDE MONONITRATE 60 MG TAB.ER.24H 120 MG PO (08:31)
[2024-03-11] MEDS: FERROUS SULFATE 325 MG TABLET PO ×2 (08:31→20:34)
[2024-03-11] MEDS: LACTULOSE 10 GM/15 ML UD CUP 30 GM PO ×2 (08:31→12:16)
[2024-03-11] MEDS: DICYCLOMINE HCL 10 MG CAPSULE PO ×2 (08:31→20:34)
[2024-03-11] MEDS: PANTOPRAZOLE SODIUM 40 MG VIAL IV ×2 (08:32→20:34)
[2024-03-11] MEDS: SACUBITRIL/VALSARTAN 24 MG-26 MG TABLET 2 TAB PO ×2 (08:32→20:35)
[2024-03-11 08:34] LABS: Partial Thromboplastin Time 32.2 sec (22.3-36.2); Prothrombin Time 12.5 sec (9.0-11.6)
[2024-03-11] MEDS: INSULIN DETEMIR 300 UNIT/3 ML INSULN.PEN 38 UNIT SUBQ (08:34)
--- NOTE | 2024-03-11 10:21 | SWNOTE1 ---
No plans for discharge today. SW sent over updates to Sosa at [facility]. Updates included progress notes, labs, vitals, nursing notes, med list, diagnostic imaging, and med list.
--- NOTE | 2024-03-11 10:26 | REH.PTDLY ---
Physical Therapy Daily Note PT Daily Note/Assess Start: 03/05/24 11:02 Freq: Status: Active Protocol: Document 03/11/24 10:20 MARY (Rec: 03/11/24 10:26 MARY [id number]) Physical Therapy Daily Note/Assessment Time In 08:56 Time Out 09:30 Subjective Pt awake in bed upon arrival, family in room. Pt wants to try and sit up today, feeling a little better than yesterday . Pt reports he is unable to stand or walk, very weak. Therapeutic Exercise Minutes (minutes) 11 Therapeutic Exercise Units 1 Therapeutic Exercise Treatment Instructed pt in AA B LE supine exs including AP, SAQ, heel slides, hip abd slides 10x ea for improved mobility. Sitting unsupported B LE LAQ, marching, hip abd 10x ea. Therapeutic Activity Minutes (minutes) 12 Therapeutic Activity Units 1 Therapeutic Activity Comments Max A x2 with supine to sit transfer. Pt sat bedside unsupported for about 6 mins while performing seated exs. Pt does have LOB retro 1x. Pt returns to supine with Max A x2 and Max A x3 with rolling side to side with cues for pt to assist as able. Brief is changed and jalen pad is placed. Nurses aide, utilizes jalen to transfer pt to chair. Total Therapy Minutes 23 Total Physical Therapy Units 2 Daily Note Summary Pt has increased weakness compared to last weeks therapy visits. Rattling noted in chest throughout rx. Pt is now a jalen lift as he is unable to stand up due to weakness. Pt does have good seated balance initially, then becomes unsteady with movement as he fatigues after about 5 mins. Pt to return to rehab at [facility] as he is unable to care for himself.
[2024-03-11] MEDS: ACETAMINOPHEN 500 MG TABLET PO (12:15)
[2024-03-11 14:34] LABS: Internal Control Within Normal Limits; Occult Blood Positive
[2024-03-11] MEDS: 0.9 % SODIUM CHLORIDE 250 ML 10 ML IV (16:03)
[2024-03-11] MEDS: CEFTAZIDIME 1,000 MG in 0.9 % SODIUM CHLORIDE 50 ML 100 MG IV (16:03)
[2024-03-11] MEDS: BUMETANIDE 1 MG/4 ML VIAL IVP (16:03)
[2024-03-11 16:41] LABS: Ammonia 23 umol/L (11-32)
[2024-03-11] MEDS: METRONIDAZOLE/SODIUM CHLORIDE 500 MG/100 ML PREMIX 100 MG IV (17:15)
[2024-03-11 20:27] LABS: Hematocrit 32.2 % (42.0-54.0); Hemoglobin 10.7 g/dL (14.0-18.0); Mean Corpuscular HGB Conc 33.2 g/dL (29.9-35.2); Mean Corpuscular Hemoglobin 31.7 pg (25.9-34.0); Mean Corpuscular Volume 95.3 fL (80.0-94.0); Mean Platelet Volume 10.4 fL (9.5-13.5); Platelet Count 134 10^3/uL (150-450); Red Blood Count 3.38 10^6/uL (4.70-6.10); Red Cell Distribution Width 14.4 % (11.0-15.0); White Blood Count 10.3 10^3/uL (4.0-11.0)
[2024-03-11] MEDS: POTASSIUM CHLORIDE 10 MEQ ER TABLET 20 MEQ PO (20:35)
[2024-03-11] MEDS: LEVOTHYROXINE SODIUM 100 MCG TABLET 50 MCG PO (21:24)
[2024-03-11] MEDS: AMITRIPTYLINE HCL 50 MG TABLET PO (21:24)
[2024-03-11] MEDS: INSULIN ASPART 300 UNIT/3 ML PEN SUBQ (21:47)
--- NOTE | 2024-03-11 22:12 | RESP.RT ---
Pt refused breathing tx at this time. Pt stated he has been through enough.
[2024-03-12] VITALS (20 sets, daily range): BP systolic 128–157; BP diastolic 70–91; PULSE 70–93; TEMP 36.5–36.8; O2SAT 92–95
[2024-03-12] MEDS: METRONIDAZOLE/SODIUM CHLORIDE 500 MG/100 ML PREMIX 100 MG IV ×5 (00:16→23:52)
--- NOTE | 2024-03-12 02:53 | PC.NURSE ---
Pt changed for a large amount of incontinent urine. Berta area and coccyx cleaned, cream applied to buttocks and clean pad and brief applied pt repositioned on his lt side
--- NOTE | 2024-03-12 04:44 | RESP.RT ---
Pt refused breathing tx.
[2024-03-12] MEDS: HYDRALAZINE HCL 25 MG TABLET PO ×3 (06:30→22:22)
[2024-03-12 06:38] LABS: Basophils Percent Auto 0.1 % (0.2-2.0); Eosinophils Absolute Auto 0.2 10^3/uL (0.0-0.7); Eosinophils Percent Auto 1.3 % (0.9-7.0); Hemoglobin 10.2 g/dL (14.0-18.0); Immature Granulocytes Abs Auto 0.19 10^3/uL (0.00-0.03); Immature Granulocytes Pct Auto 1.6 % (0.0-0.5); Lymphocytes Absolute Auto 0.4 10^3/uL (1.2-3.8); Lymphocytes Percent Auto 3.7 % (20.5-60.0); Mean Corpuscular HGB Conc 32.9 g/dL (29.9-35.2); Mean Corpuscular Hemoglobin 31.7 pg (25.9-34.0); Mean Corpuscular Volume 96.3 fL (80.0-94.0); Mean Platelet Volume 10.9 fL (9.5-13.5); Monocytes Percent Auto 8.7 % (1.7-12.0); Neutrophils Percent Auto 84.6 % (43.0-75.0); Platelet Count 124 10^3/uL (150-450); Red Blood Count 3.22 10^6/uL (4.70-6.10); Red Cell Distribution Width 14.9 % (11.0-15.0); White Blood Count 11.8 10^3/uL (4.0-11.0)
[2024-03-12 06:44] LABS: Ammonia 25 umol/L (11-32)
[2024-03-12 07:01] LABS: Alanine Aminotransferase 426 U/L (16-63); Albumin Globulin Ratio 1.1; Albumin Level 2.6 g/dL (3.4-5.0); Alkaline Phosphatase 90 U/L (46-116); Anion Gap 13.7; Aspartate Amino Transferase 69 U/L (15-37); BUN Creatinine Ratio 29.9; Bilirubin Total 1.1 mg/dL (0.2-1.0); Calcium 8.1 mg/dL (8.5-10.1); Carbon Dioxide 28.3 mmol/L (21.0-32.0); Chloride 110 mmol/L (98-107); Estimated GFR (African America 26 (>=60); Estimated GFR (Non-African Ame 22 (>=60); Globulin 2.4 g/dL; Glucose 273 mg/dL (74-106); Sodium 149 mmol/L (136-145)
[2024-03-12] MEDS: INSULIN ASPART 300 UNIT/3 ML PEN SUBQ ×4 (08:00→22:21)
[2024-03-12] MEDS: PANTOPRAZOLE SODIUM 40 MG VIAL IV ×2 (08:01→22:21)
--- NOTE | 2024-03-12 08:02 | CM.NOTE ---
2nd Important Message from [employer] discussed with pt, pt denies any questions or concerns.
--- NOTE | 2024-03-12 08:18 | P.PN_ITS ---
Progress Note: Subjective Subjective Interval history: Sleeping when I came in the room. Awakens easily. Answers questions appropriately. Exam Constitutional Vital Signs, click to edit/add: Last Vital Signs Temp 97.8 F 03/12/24 08:00 Pulse 81 03/12/24 08:00 Resp 20 03/12/24 08:00 BP 128/77 03/12/24 08:00 Pulse Ox 92 L 03/12/24 08:00 O2 Del Method Room Air 03/12/24 08:00 O2 Flow Rate 1 03/11/24 16:30 Documenting provider has reviewed patient's vital signs: yes Common normals: no apparent distress (Not distressed but very fatigued) Chest Common normals: inspection of chest normal Respiratory Common normals: normal respiratory effort (Breathing easier this morning) and no retractions; not clear to ascultation bilaterally Auscultation: rales (Returned today) and rhonchi (Same as previous day); no egophony (Progressed to egophony bilateral) Cardio Common normals: regular rate Rhythm: abnormal rhythm GI Common normals: Normal to inspection, nondistended, normoactive bowel sounds present, soft to palpation and non-tender Extremity Common normals: abnormal to inspection (1+ edema which is better than previous day) Neuro Common normals: oriented x3 (Just overall generalized weakness) Progress Note: Objective Labs Labs: Short CBC 03/11/24 03/12/24 Range/Units 20:10 05:56 WBC 10.3 11.8 H (4.0-11.0) 10^3/uL Hgb 10.7 L 10.2 L (14.0-18.0) g/dL Hct 32.2 L 31.0 L (42.0-54.0) % Plt Count 134 L 124 L (150-450) 10^3/uL BMP 03/12/24 05:56 Sodium 149 H Potassium 3.0 L Chloride 110 H Carbon Dioxide 28.3 BUN 84.0 H* Creatinine 2.81 H Glucose 273 H Calcium 8.1 L Liver Function 03/12/24 Range/Units 05:56 Total Bilirubin 1.1 H (0.2-1.0) mg/dL AST 69 H (15-37) U/L ALT 426 H (16-63) U/L Alkaline Phosphatase 90 (46-116) U/L Albumin 2.6 L (3.4-5.0) g/dL Progress Note: A&P Assessment and Plan (1) Dehydration: (2) HTN (hypertension): (3) Hypothyroidism: (4) CKD stage 3 due to type 2 diabetes mellitus: (5) IDDM (insulin dependent diabetes mellitus): (6) Acute kidney injury superimposed on CKD: (7) Frequent falls: Plan Admission findings: Relative tachycardia with heart rate in the 90s despite being on beta-blockers, respiratory distress, acute hypoxia with O2 sat of 93% on 2 L., Leukocytosis, uncontrolled diabetes mellitus complicated by recent COVID, Now with healthcare acquired pneumonia right lower lobe- with acute hypoxia and resulting sepsis Healthcare acquired pneumonia right lower lobe-which is progressed to bilateral lower lobe pneumonia. Change antibiotics on 03 11. White blood cell count is slightly elevated today. Continue to monitor. Tried to induce sputum yesterday unsuccessfully Altered mental status-related to the hypoxic episode, could also be sundowning. Seems much better--just overall generalized weakness [id number] testing positive-out of quarantine 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-better since off of steroids Acute renal failure(is a baseline creatinine of around 2. Creatinine slightly better the last few days. Repeating Bumex drip again today. Chronic combined congestive heart failure-BNP elevated significantly compared to yesterday. He was given diuretics IV yesterday. But also 2 units of blood. Will repeat Bumex drip again today with the albumin. Venous insufficiency and peripheral edema secondary to severe protein calorie malnutrition-compression hose and diet supplementation-patient not eating. Patient encouraged to eat better today. Family bringing in different foods. Anemia secondary to chronic kidney disease-hemoglobin down significantly today. upper gastrointestinal bleeding which is resulted in acute upper gastrointestinal blood loss anemia-hemoglobin stable this morning. Hemoglobin came up more than 2 points after the 2 units. Suspect any gastrointestinal bleeding has stopped. He did have positive occult blood Atrial fibrillation-rate fairly well-controlled currently does have relative tachycardia in the 90 despite being on [id number] stable, restart Eliquis tomorrow Severe protein calorie malnutrition-will continue to follow albumin, patient is not eating well. Frequent falls-head CT check negative Taken patient complaining of unable to move left arm. He can move it, just pain in the shoulder when he does. Elevated liver function test-likely secondary to passive congestion his abdominal exam is without significant tenderness. Ultrasound unremarkable and liver function test improving daily Hyperammonemia-resolved, will stop lactulose Hypothyroidism-levels normal Hypomagnesemia-supplement, elevated yesterday and today's will hold off on dosing currently Hypercholesterolemia-continue with current medications Hyperkalemia--resolved Hypokalemia-supplement with IV boluses again today. Add orals as well. Weakness-had conversation with family about his overall condition. Some things better some things worse, just overall has been getting worse in terms of his generalized weakness and his inability to do to improve his protein status. Will see how the next day or 2 plays out. Did discuss the possibility of adding hospice to his overall care once discharged. Admission status: Patient admitted from a healthcare facility with pneumonia resulting in healthcare acquired pneumonia, medically necessary treatment will span 2 midnights-inpatient status. Patient with acute blood loss anemia now, if trend remains stable between today and tomorrow, discharge tomorrow ? Urinary Catheter Management Urinary Catheter Management Condom: Cath placed during this visit: yes Urethral indwelling: No Insertion date: 03/11/24 Insertion time: 11:40
--- NOTE | 2024-03-12 08:24 | XR_ITS ---
The [address] [address] Patient Name: JAJA FRANKLIN MRN: [id number] date: 1940 Sex: M Assigned Patient Location: MS Current Patient Location: MS Accession/Order Number: [id number] Exam Date: 03/12/2024 08:50 Report Date: 03/12/2024 09:11 At the request of: DERRICK AYALA Procedure: XR shoulder LT min 2V PROCEDURE: XR shoulder LT min 2V HISTORY: shoulder pain COMPARISON: None. FINDINGS: BONES:Bone hypertrophy the distal end of the clavicle likely impinging upon the superior rotator cuff. No fracture or dislocation. SOFT TISSUES:No visible soft tissue swelling. EFFUSION:None visible. OTHER: Negative. XR/XR shoulder LT min 2V IMPRESSION: 1. Degenerative changes of acromioclavicular joints likely impinging upon the superior rotator cuff. 2. Limited evaluation of the glenohumeral joint due to positioning. Suspect moderate degenerative changes. 3. No appreciable acute bone abnormality. Electronically authenticated by: AWAIS TELLO Date: 03/12/2024 09:11
[2024-03-12] MEDS: ALBUMIN HUMAN 25 GM/100 ML PREMIX IV ×2 (09:38→10:39)
[2024-03-12] MEDS: CARVEDILOL 25 MG TABLET 37.5 MG PO ×2 (09:38→22:22)
[2024-03-12] MEDS: PROSTAT 15 GM PROTEIN/100 CAL 30 ML LIQUID PACKET PO (09:38)
[2024-03-12] MEDS: ISOSORBIDE MONONITRATE 60 MG TAB.ER.24H 120 MG PO (09:40)
[2024-03-12] MEDS: SACUBITRIL/VALSARTAN 24 MG-26 MG TABLET 2 TAB PO ×2 (09:41→22:22)
[2024-03-12] MEDS: DICYCLOMINE HCL 10 MG CAPSULE PO ×2 (09:41→22:21)
[2024-03-12] MEDS: FERROUS SULFATE 325 MG TABLET PO ×2 (09:41→22:22)
[2024-03-12] MEDS: BUMETANIDE 10 MG in 0.9 % SODIUM CHLORIDE 160 ML 20 MG IV (09:42)
[2024-03-12] MEDS: POTASSIUM CHLORIDE 40 MEQ in 0.9 % SODIUM CHLORIDE 250 ML 67.5 MEQ IV (09:42)
[2024-03-12] MEDS: INSULIN DETEMIR 300 UNIT/3 ML INSULN.PEN 38 UNIT SUBQ (09:50)
--- NOTE | 2024-03-12 09:53 | REH.PTDLY ---
Physical Therapy Daily Note PT Daily Note/Assess Start: 03/05/24 11:02 Freq: Status: Active Protocol: Document 03/12/24 09:51 MARY (Rec: 03/12/24 09:53 MARY [id number]) Visit Not Completed Visit Not Completed Due to: Pt level of alertness Other Reason Visit Not Completed Pt very lethargic this morning , struggles to keep eyes opened. Declines therapy at this time. Checked back an hour later and LUCY Jones in room. Reports pt is still sleeping and she just got several IVs hooked up. Held therapy today. Physical Therapy Daily Note/Assessment Time In 09:50 Time Out 09:52
--- NOTE | 2024-03-12 13:23 | OT.DAILY ---
Occupational Therapy Daily Note OT Inpatient Daily Visit Note Start: 03/04/24 10:31 Freq: Status: Active Protocol: Document 03/12/24 13:16 [id number] (Rec: 03/12/24 13:23 [id number]) OT Visit Details Time In/Time Out Time In 13:05 Time Out 13:15 OT Treatment Plan Subjective Subjective I am really tired Objective Objective Pt laying supine in bed, awake and alert. Reports fatigue. Pt was motivated to use a wet cloth to clean face and UB area. Pt did not make attempts to wash self, unable to cross midline with wash cloth in hand. Pt would not request for additional bathing, but would tolerate. Max A. Pt comments multiple times that he prefers to go to sleep and rest. Assessment Assessment Pt tolerated treatment with multiple complaints of fatigue . Continue OT POC. Pt left in bed, call light within reach. No SOB, maintaining O2 on RA. OT Shoulder Sawyer Timed Codes Self-[facility] Management minutes ( 10 minutes) Self-[facility] Management units 1
--- NOTE | 2024-03-12 14:29 | SWNOTE1 ---
SW stopped in to speak with pt, pt had family in room. Pt wanted to be respositioned, SW got the nurse and aide. Pt voiced he was tired today.
[2024-03-12] MEDS: CEFTAZIDIME 1,000 MG in 0.9 % SODIUM CHLORIDE 50 ML 100 MG IV (16:42)
[2024-03-12] MEDS: IPRATROPIUM/ALBUTEROL SULFATE 3 ML AMPUL.NEB IH (17:01)
[2024-03-12] MEDS: AMITRIPTYLINE HCL 50 MG TABLET PO (22:22)
[2024-03-12] MEDS: LEVOTHYROXINE SODIUM 100 MCG TABLET 50 MCG PO (22:22)
[2024-03-13] VITALS (10 sets, daily range): BP systolic 125–170; BP diastolic 70–74; PULSE 73–84; TEMP 36.6–37.2; O2SAT 92
[2024-03-13 05:22] LABS: Basophils Percent Auto 0.1 % (0.2-2.0); Eosinophils Absolute Auto 0.1 10^3/uL (0.0-0.7); Hematocrit 28.7 % (42.0-54.0); Hemoglobin 9.7 g/dL (14.0-18.0); Immature Granulocytes Abs Auto 0.18 10^3/uL (0.00-0.03); Immature Granulocytes Pct Auto 1.4 % (0.0-0.5); Lymphocytes Absolute Auto 0.7 10^3/uL (1.2-3.8); Lymphocytes Percent Auto 5.3 % (20.5-60.0); Mean Corpuscular HGB Conc 33.8 g/dL (29.9-35.2); Mean Corpuscular Hemoglobin 32.1 pg (25.9-34.0); Mean Platelet Volume 10.5 fL (9.5-13.5); Monocytes Absolute Auto 1.2 10^3/uL (0.3-0.8); Monocytes Percent Auto 9.6 % (1.7-12.0); Neutrophils Absolute Auto 10.4 10^3/uL (1.4-6.5); Neutrophils Percent Auto 82.6 % (43.0-75.0); Platelet Count 117 10^3/uL (150-450); Red Blood Count 3.02 10^6/uL (4.70-6.10); White Blood Count 12.6 10^3/uL (4.0-11.0)
[2024-03-13 05:34] LABS: Ammonia 27 umol/L (11-32)
[2024-03-13] MEDS: METRONIDAZOLE/SODIUM CHLORIDE 500 MG/100 ML PREMIX 100 MG IV (05:36)
[2024-03-13] MEDS: HYDRALAZINE HCL 25 MG TABLET PO (05:36)
[2024-03-13 05:45] LABS: Alanine Aminotransferase 272 U/L (16-63); Alkaline Phosphatase 81 U/L (46-116); Anion Gap 7.6; Aspartate Amino Transferase 38 U/L (15-37); BUN Creatinine Ratio 30.1; Bilirubin Total 1.2 mg/dL (0.2-1.0); Calcium 8.5 mg/dL (8.5-10.1); Carbon Dioxide 32.5 mmol/L (21.0-32.0); Chloride 110 mmol/L (98-107); Estimated GFR (African America 31 (>=60); Estimated GFR (Non-African Ame 25 (>=60); Globulin 2.4 g/dL; Glucose 121 mg/dL (74-106); Magnesium 1.9 mg/dL (1.8-2.4); Potassium 3.1 mmol/L (3.5-5.1); Sodium 147 mmol/L (136-145); Total Protein 5.4 g/dL (6.4-8.2)
[2024-03-13 05:46] LABS: Albumin Globulin Ratio 1.3
[2024-03-13] MEDS: SACUBITRIL/VALSARTAN 24 MG-26 MG TABLET 2 TAB PO (08:10)
[2024-03-13] MEDS: ISOSORBIDE MONONITRATE 60 MG TAB.ER.24H 120 MG PO (08:11)
[2024-03-13] MEDS: CARVEDILOL 25 MG TABLET 37.5 MG PO (08:11)
[2024-03-13] MEDS: DICYCLOMINE HCL 10 MG CAPSULE PO (08:12)
[2024-03-13] MEDS: FERROUS SULFATE 325 MG TABLET PO (08:12)
[2024-03-13] MEDS: INSULIN DETEMIR 300 UNIT/3 ML INSULN.PEN 38 UNIT SUBQ (08:14)
--- NOTE | 2024-03-13 08:14 | P.DS_ITS ---
DS: Providers Provider Date of admission: 03/03/24 20:45 Primary care physician: Yao Lopez MD Consults: 03/04/24 08:07 Consult to Payroll Manager Routine Reason for consult:: Long-Term Other reason:: Placement for 03/04/24 09:00 Occupational Therapy Eval and Treat Routine Reason for consultation: Weakness Has provider been notified: No Physical Therapy Eval and Treat Routine Reason for consultation: Weakness DS: Diagnosis Discharge Diagnosis (1) Dehydration: (2) HTN (hypertension): (3) Hypothyroidism: (4) CKD stage 3 due to type 2 diabetes mellitus: (5) IDDM (insulin dependent diabetes mellitus): (6) Acute kidney injury superimposed on CKD: (7) Frequent falls: Plan Admission findings: Relative tachycardia with heart rate in the 90s despite being on beta-blockers, respiratory distress, acute hypoxia with O2 sat of 93% on 2 L., Leukocytosis, uncontrolled diabetes mellitus complicated by recent COVID, Now with healthcare acquired pneumonia right lower lobe- with acute hypoxia and resulting sepsis Healthcare acquired pneumonia right lower lobe-which is progressed to bilateral lower lobe pneumonia. Change antibiotics on 8 . White blood cell count is slightly elevated today. Continue to monitor. Tried to induce sputum yesterday unsuccessfully Altered mental status-related to the hypoxic episode, could also be owning. Seems much better--just overall generalized weakness [id number] testing positive-out of quarantine 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-better since off of steroids Acute renal failure(is a baseline creatinine of around 2. Creatinine slightly better the last few days. Repeating Bumex drip again today. Chronic combined congestive heart failure-BNP elevated significantly compared to yesterday. He was given diuretics IV yesterday. But also 2 units of blood. Will repeat Bumex drip again today with the albumin. Venous insufficiency and peripheral edema secondary to severe protein calorie malnutrition-compression hose and diet supplementation-patient not eating. Patient encouraged to eat better today. Family bringing in different foods. Anemia secondary to chronic kidney disease-hemoglobin down significantly today. upper gastrointestinal bleeding which is resulted in acute upper gastrointestinal blood loss anemia-hemoglobin stable this morning. Hemoglobin came up more than 2 points after the 2 units. Suspect any gastrointestinal bleeding has stopped. He did have positive occult blood Atrial fibrillation-rate fairly well-controlled currently does have relative tachycardia in the s despite being on [id number] stable, restart Eliquis tomorrow Severe protein calorie malnutrition-will continue to follow albumin, patient is not eating well. Frequent falls-head CT check negative Taken patient complaining of unable to move left arm. He can move it, just pain in the shoulder when he does. Elevated liver function test-likely secondary to passive congestion his abdominal exam is without significant tenderness. Ultrasound unremarkable and liver function test improving daily Hyperammonemia-resolved, will stop lactulose L Hypothyroidism-levels normal Hypomagnesemia-supplement, elevated yesterday and today's will hold off on dosing currently Hypercholesterolemia-continue with current medications Hyperkalemia--resolved Hypokalemia-supplement with IV boluses again today. Add orals as well. Weakness-had conversation with family about his overall condition. Some things better some things worse, just overall has been getting worse in terms of his generalized weakness and his inability to do to improve his protein status. Will see how the next day or 2 plays out. Did discuss the possibility of adding hospice to his overall care once discharged. Admission status: Patient admitted from a healthcare facility with pneumonia resulting in healthcare acquired pneumonia, medically necessary treatment will span 2 midnights-inpatient status. Patient with acute blood loss anemia now, if trend remains stable between today and tomorrow, discharge tomorrow DS: Summary Hospital Course Hospital Course: Patient was admitted with increasing fatigue, shortness of breath, leukocytosis due to healthcare acquired pneumonia. Treated with IV antibiotics. Held off on his diuretics gave slow hydration initially. With his acute renal failure was a difficult balance between that and his acute and chronic combined congestive heart failure. At 1 point was given over the course of 3 days he was given 3 L of fluids. Started having increasing respiratory distress and peripheral edema. Patient was changed back to Bumex as a slow continuous drip with albumin which did seem to improve his edema and his heart failure. His BNP is still elevated today. But his creatinine is improved probably back to his baseline of 2.4. White blood cell count slightly elevated but much improved from admission. Patient looks the best I have seen him in a while. Only other complicating factors 3 days ago had acute upper gastrointestinal blood loss anemia requiring transfusion of 2 units. His blood thinners were held. We can restart those at discharge at the lower dose. Currently patient is stable for discharge to central hospital. Can work with physical therapy they are trying to improve his overall strength. Managing his diabetes and the difficult part will be between his chronic kidney disease and his chronic combined congestive heart failure. He should be allowed to have some edema in his lower extremities as that is likely related to his severe protein calorie malnutrition and hypoalbuminemia medications see list. He will follow with house physician at his [facility]. Family has my number to contact me if there is any concerns Status at Discharge Overall status at discharge: patient is not back to baseline Time Spent with Patient Time attestation: Total time spent providing and/or coordinating discharge services: Time spent: greater than 30 minutes Exam Constitutional Vital Signs, click to edit/add: Last Vital Signs Temp 97.8 F 03/13/24 04:00 Pulse 84 03/13/24 08:00 Resp 18 03/13/24 04:00 BP 147/73 H 03/13/24 04:00 Pulse Ox 92 L 03/13/24 04:00 O2 Del Method Room Air 03/13/24 04:00 O2 Flow Rate 1 03/11/24 16:30 Documenting provider has reviewed patient's vital signs: yes Common normals: no apparent distress (Not distressed but very fatigued) Chest Common normals: inspection of chest normal Respiratory Common normals: normal respiratory effort (Breathing easier this morning) and no retractions; not clear to ascultation bilaterally Auscultation: rales (Improved from previous day) and rhonchi (Same as previous day); no egophony (Progressed to egophony bilateral) Cardio Common normals: regular rate Rhythm: abnormal rhythm GI Common normals: Normal to inspection, nondistended, normoactive bowel sounds present, soft to palpation and non-tender Extremity Common normals: abnormal to inspection (1+ edema which is better than previous day) Neuro Common normals: oriented x3 (Just overall generalized weakness) DS: Data Data Completed and Pending Labs on day of discharge: Labs from last 24 hours 03/13/24 05:15 WBC 12.6 H RBC 3.02 L Hgb 9.7 L Hct 28.7 L MCV 95.0 H MCH 32.1 MCHC 33.8 RDW 15.0 Plt Count 117 L MPV 10.5 Neut % (Auto) 82.6 H Lymph % (Auto) 5.3 L [place] % (Auto) 9.6 Eos % (Auto) 1.0 Baso % (Auto) 0.1 L Neut # (Auto) 10.4 H Lymph # (Auto) 0.7 L [place] # (Auto) 1.2 H Eos # (Auto) 0.1 Baso # (Auto) 0.0 Abs Immat Gran (auto) 0.18 H Imm/Tot Granulo (auto) 1.4 H Sodium 147 H Potassium 3.1 L Chloride 110 H Carbon Dioxide 32.5 H Anion Gap 7.6 BUN 74.0 H Creatinine 2.46 H Est GFR ( Amer) 31 L Est GFR (Non-Af Amer) 25 L BUN/Creatinine Ratio 30.1 Glucose 121 H Calcium 8.5 Magnesium 1.9 Total Bilirubin 1.2 H AST 38 H ALT 272 H Alkaline Phosphatase 81 Ammonia 27 NT-Pro-B Natriuret Pep 03080.0 H* Total Protein 5.4 L Albumin 3.0 L Globulin 2.4 Albumin/Globulin Ratio 1.3 Discharge Plan Discharge Disposition: Xfer LT Condition: Good Discharge Medications: New carvedilol 25 mg Tablet 37.5 mg PO BID Qty: 90 11RF isosorbide mononitrate 60 mg Tablet Extended Release 24 Hr 120 mg PO QD Qty: 30 11RF ferrous sulfate 325 mg (65 mg iron) Tablet 325 mg PO BID Qty: 60 11RF Ensure Active Protein-Muscle Liquid 1 ea PO BID Qty: 5688 11RF Pro-Stat Sugar Free 15 gram- 100 kcal/30 mL Liquid In Packet 1 ea PO BID Qty: 2880 11RF Entresto 24-26 mg Tablet 2 tab PO BID Qty: 60 11RF amoxicillin-pot clavulanate 875-125 mg tablet 1 tab PO Q12H Qty: 20 0RF Eliquis 2.5 mg tablet 2.5 mg PO BID Qty: 60 11RF pantoprazole [Protonix] 40 mg tablet,delayed release (DR/EC) 40 mg PO QAM Qty: 30 11RF Continued atorvastatin 20 mg tablet 20 mg PO .QHS levothyroxine 50 mcg tablet 50 mcg PO .qhs aspirin [Adult Aspirin Regimen] 81 mg tablet,delayed release (DR/EC) 81 mg PO DAILY Hold Instructions: Doctor's Order insulin aspart U-100 [Novolog FlexPen U-100 Insulin] 100 unit/mL (3 mL) Insulin Pen 2 - 14 unit subcut ACHS Qty: 15 0RF amitriptyline 50 mg tablet 50 mg PO BEDTIME bumetanide 2 mg tablet 2 mg PO .qd Hold Instructions: Resume on 02/27/24. hydralazine 25 mg Tablet 25 mg PO TID Qty: 90 11RF Levemir FlexPen 100 unit/mL (3 mL) Insulin Pen 38 unit subcut QAM benzonatate 100 mg Capsule 200 mg PO Q8H PRN (Reason: Cough) 3 Days Qty: 6 0RF Discontinued ferrous sulfate [FeroSul] 325 mg (65 mg iron) tablet 325 mg PO .QHS Eliquis 5 mg Tablet 2.5 mg PO BID Qty: 60 0RF Patient Comments: recieves samples from Dr. Lopez's office carvedilol 25 mg tablet 25 mg PO BID isosorbide mononitrate 60 mg tablet extended release 24 hr 120 mg PO .qd spironolactone 25 mg tablet 12.5 mg PO .qd Hold Instructions: Resume on 02/27/24. 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
[2024-03-13] MEDS: PANTOPRAZOLE SODIUM 40 MG VIAL IV (08:20)
[2024-03-13] MEDS: BUMETANIDE 1 MG/4 ML VIAL 2 MG IVP (08:24)
--- NOTE | 2024-03-13 10:09 | SWNOTE1 ---
Pt is ready for discharge today. He will [facility]. LESLEY called and set up [facility] and they will be here at 12:30pm to transport. LESELY notified [facility], nursing, and family. LESLEY took packet to the floor. LESLEY sent dc med rec to [facility].
--- NOTE | 2024-03-13 10:38 | SWNOTE1 ---
Pt's sons, Myriam and Roosevelt, both had questions in regards to pt being skilled, LTC, or AL. SW did explain that he was denied by insurance for SNF and an option for peer to peer was given to doctor, but at this time it was decided pt was at baseline. Family did ask if they could appeal, SW let them know that they could not. SW did express that they can check with SW or admissions at [facility] at anytime to see if when pt is feeling better if they can try to skill him. They also asked about bringing in there own hospital bed, SW advised them to check with LESLEY or Trinity at [facility].
--- NOTE | 2024-03-13 10:45 | SWNOTE1 ---
Pt's daughter also asked case management and Dr. Lopez about the bed pt has at [facility]. She voiced that it is not a hospital bed and does not go up and down. LESLEY called over to Sosa at [facility] and she stated all the beds at [facility] are hospital beds and they do move up and down. LESLEY requested that nursing show family how to use the bed.
[2024-03-13] MEDS: INSULIN ASPART 300 UNIT/3 ML PEN SUBQ (11:24)
== END 2024-03-13 12:23 | DRG 193 ==
LOC: ER 19:40 → MS 20:52
PROVIDERS: Emergency Medicine; Registered Nurse; Admitting Provider Family Medicine; Emergency Provider Internal Medicine; PCP Family Medicine; Visit Provider Family Medicine
DX: J18.9 Pneumonia, unspecified organism (principal); A41.9 Sepsis, unspecified organism; E43 Unspecified severe protein-calorie malnutrition; U07.1 COVID-19; I50.43 Acute on chronic combined systolic (congestive) and diastolic (congestive) heart failure; I13.0 Hypertensive heart and chronic kidney disease with heart failure and stage 1 through stage 4 chronic kidney disease, or unspecified chronic kidney disease; N17.9 Acute kidney failure, unspecified; K52.1 Toxic gastroenteritis and colitis; D62 Acute posthemorrhagic anemia; E72.20 Disorder of urea cycle metabolism, unspecified; K92.2 Gastrointestinal hemorrhage, unspecified; F05 Delirium due to known physiological condition; J98.4 Other disorders of lung; E86.0 Dehydration; I48.91 Unspecified atrial fibrillation; E11.42 Type 2 diabetes mellitus with diabetic polyneuropathy; Z87.891 Personal history of nicotine dependence; R09.02 Hypoxemia; R06.03 Acute respiratory distress; E11.65 Type 2 diabetes mellitus with hyperglycemia; Z79.4 Long term (current) use of insulin; N18.30 Chronic kidney disease, stage 3 unspecified; I87.2 Venous insufficiency (chronic) (peripheral); D63.1 Anemia in chronic kidney disease; Z91.81 History of falling; E03.9 Hypothyroidism, unspecified; E78.00 Pure hypercholesterolemia, unspecified; E83.42 Hypomagnesemia; E87.5 Hyperkalemia; T50.3X5A Adverse effect of electrolytic, caloric and water-balance agents, initial encounter; R53.1 Weakness; Z79.1 Long term (current) use of non-steroidal anti-inflammatories (NSAID); E87.6 Hypokalemia; M25.512 Pain in left shoulder; E88.09 Other disorders of plasma-protein metabolism, not elsewhere classified; Z68.33 Body mass index [BMI] 33.0-33.9, adult; R41.82 Altered mental status, unspecified
CPT/HCPCS: 36415; 36430; 36569; 36592; 70450; 71045; 73030; 74019; 76705; 80048; 80053; 80076; 82140; 82948; 83605; 83735; 83880; 84436; 84443; 84484; 85007; 85025; 85027; 85610; 85730; 86850; 86900; 86901; 86923; 87040; 87070; 87811; 93005; 94640; 94667; 94668; 94761; 96361; 96365; 96366; 96367; 96368; 96375; 96376; 97110; 97162; 97165; 97530; 97535; 99285; C1887; G0328; J0456; J0696; J0713; J1836; J1940; J2405; J2543; J2919; J3480; P9016; P9046

== ENCOUNTER 2024-03-25 11:59 | Inpatient (IN) | payer MEDICARE, SELFPAY ==
[2024-03-25] VITALS (30 sets, daily range): BP systolic 114–150; BP diastolic 66–90; PULSE 69–94; TEMP 36.6–36.8; O2SAT 94–100; BMI 39.2; BMI 35.9
--- OUTSIDE RECORDS SUMMARY | 2024-03-25 12:33 | XMS_ITS | CCD ---
Author Organization [facility] Care Team Providers Care Manager Policy Name Role Phone AHMED, ZAYRA Unavailable Unavailable AHMED, ZAYRA Unavailable Unavailable LUCY DERRICK Unavailable Unavailable HAYJAZLYN Unavailable Unavailable [place] Unavailable Unavailable UNKNOWN, PROVIDER Unavailable Unavailable Derrick [...] Medication Allergies] Propensity to adverse reactions (disorder) 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 CURRENT DRUG THERAPY] Onset: 12-16-2022 Episodic Other aftercare (1 source) intermediate manager (current) use of insulin; 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: [PRENATAL GENETIC COUNSELOR CURRENT USE OF INSULIN] Onset: 12-16-2022 Episodic Other aftercare (1 source) custodial (current) use of aspirin; 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: [CORRECTION CURRENT USE OF ASPIRIN] Onset: 11-30-2022 Episodic [...] UNSPECIFIED] Onset: 12-16-2022 Chronic Unclassified (1 source) intermediate manager (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) use of oral hypoglycemic drugs; 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: [CORRECTION (CURRENT) USE OF ORAL HYPOGLYCEMIC DRUGS] Onset: [...] Range Facility Office Visiton 07-14-2023 Follow-up visit [id number] Nohelia Bauer Lauren 1940 M Date Provider Department Center 07/14/2023 OREN PEDRO KWASI Borja Family History Problem Relation Age of Onset Coronary artery disease Mother Family Status - Relation Status Age at Mother Level of Service:44151 [place] OFFICE/OUTPATIENT ESTABLISHED LOW MDM 20-29 MIN Normal [facility] Office Visiton 03-13-2023 Follow-up visit [id number] Nohelia Bauer Lauren 1940 M Date Provider Department Center 03/13/2023 LEATHA GONZALEZ KWASI Valdovinos [facility] Family History Problem Relation Age of Onset Coronary artery disease Mother Family Status - Relation Status Age at Mother Level of Service:13922 [place] OFFICE/OUTPATIENT ESTABLISHED MOD MDM 30-39 MIN Normal [facility] PSA, FREE AND TOTAL RATIOon 11-24-2022 % Free PSA 33.9 % Normal [facility] Comment on above: Result Comment: The [...] of men. Performed By: #### P SAFREE ####[facility] [address] [place], [place] [address]FbBebo Diaz Prostate specific Ag [Mass/Vol] 6.2 ng/mL Critically high 0.0-4.0 [facility] Comment on above: Result Comment: Aye ECLIA methodology. .According to the [place] [employer], Serum PSA shoulddecrease and remain [...] malignant disease. Performed By: #### P SAFREE ####[facility] [address]klj[address] [place] [address]Dr. Yuki Diaz PSA, Free 2.10 ng/mL Normal N/A [facility] Comment on above: Result Comment: Aye ECLIA methodology. Performed By: #### P SAFREE ####[facility] [address]fzquyovdq[address] [place] [address]Dr. Yuki Diaz CBC AUTO DIFFon 11-23-2022 BASO # 0.0 103/ul Normal 0.0-0.1 [facility] Comment on above: Performed By: #### CBC ####[facility] Phricixm[address] [place], [place] [address]Dr. Yuki Diaz Basophils/100 WBC (Bld) 0.3 % Normal 0.2-2.0 [facility] Comment on above: Performed By: #### CBC ####[facility] Z[address]ff[address] [place], [place] [address]Dr. Yuki Diaz EO # 0.3 103/ul Normal 0.0-0.7 [facility] Comment on above: Performed By: #### CBC ####[facility] H[address] [place], [place] [address]Dr. Yuki Diaz Eosinophils/100 WBC (Bld) 4.7 % Normal 0.9-7.0 [facility] Comment on above: Performed By: #### CBC ####[facility] Vyyeieqk[address] [place], [place] [address]Dr. Yuki Diaz Erythrocyte distribution width (RBC) [Ratio] 15.6 % Critically high 11.0-15.0 [facility] Comment on above: Performed By: #### CBC ####[facility] Hbofdkxdhe[address] [place], [place] [address]Dr. Yuki Diaz Hematocrit (Bld) [Volume fraction] 33.5 % Critically low 42.0-54.0 [facility] Comment on above: Performed By: #### CBC ####[facility] ital Osvwpdhcsp[address] [place] [address]Dr. Yuki Diaz Hemoglobin (Bld) [Mass/Vol] 10.0 g/dL Critically low 14.0-18.0 [facility] Comment on above: Performed By: #### CBC ####[facility] ital Aliyguabdn6[address] [place] [address]Dr. Yuki Diaz IG # 0.03 10e3/ul Normal 0.00-0.03 [facility] Comment on above: Performed By: #### CBC ####[facility] ital Bvmypxktmr9558 [place] [address]Dr. Yuki Diaz IG % 0.5 % Normal 0.0-0.5 [facility] Comment on above: Performed By: #### CBC ####[facility] ital Semsxgfssh[address] [place] [address]Dr. Monsealyssa Diaz LYMPH # 1.5 103/ul Normal 1.2-3.8 [facility] Comment on above: Performed By: #### CBC ####[facility] ital Hmogslbteb[address] [place] [address]Dr. Yuki Diaz Lymphocytes/100 WBC (Bld) 22.6 % Normal 20.5-60.0 [facility] Comment on above: Performed By: #### CBC ####[facility] Ugxubzsafi[address] [place] [address]Dr. Monsealyssa Diaz MANUAL DIFF REQ NO Normal [facility] Comment on above: Performed By: #### CBC ####[facility] Fytaipvquu[address] [place] [address]Dr. Yuki Diaz MCH (RBC) [Entitic mass] 27.9 pg Normal 25.9-34.0 [facility] Comment on above: Performed By: #### CBC ####[facility] ital Yvfdwtfhms30[address] [place] [address]Dr. Yuki Diaz MCHC (RBC) [Mass/Vol] 29.9 g/dL Normal 29.9-35.2 [facility] Comment on above: Performed By: #### CBC ####[facility] ital Ncieukddfh67[address] [place] [address]Dr. Yuki Diaz MCV (RBC) [Entitic vol] 93.6 fL Normal 80.0-94.0 [facility] Comment on above: Performed By: #### CBC ####[facility] ital Stmojmugzo7[address] [place] [address]Dr. Yuki Diaz MONO # 0.8 103/ul Normal 0.3-0.8 [facility] Comment on above: Performed By: #### CBC ####[facility] ital Jdcdnovdvb4780 [place] [address]Dr. Yuki Diaz Monocytes/100 WBC (Bld) 12.6 % Critically high 1.7-12.0 [facility] Comment on above: Performed By: #### CBC ####[facility] Gnlnuykkei[address] [place] [address]Dr. Yuki Diaz NEUT # 3.9 103/ul Normal 1.4-6.5 [facility] Comment on above: Performed By: #### CBC ####[facility] Ufghkgfuey[address] [place] [address]Dr. Yuki Diaz Neutrophils/100 WBC (Bld) 59.3 % Normal 43.0-75.0 [facility] Comment on above: Performed By: #### CBC ####[facility] Lafypfzejz40[address] [place] [address]Dr. Yuki Diaz Platelet mean volume (Bld) [Entitic vol] 10.1 fL Normal 9.5-13.5 [facility] Comment on above: Performed By: #### CBC ####[facility] ital Fpquhwtccl7125 [place] [address]Dr. Yuki Diaz PLT 231 103/ul Normal 150-450 [facility] Comment on above: Performed By: #### CBC ####[facility] Dbfhplvjnf[address] [place] [address]Dr. Yuki Diaz RBC 3.58 106/ul Critically low 4.70-6.10 [facility] Comment on above: Performed By: #### CBC ####[facility] Yaqvxvrqyk4937 [place] [address]Dr. Yuki Diaz WBC 6.6 103/ul Normal 4.0-11.0 [facility] Comment on above: Performed By: #### CBC ####[facility] Fzovrhxrnx48[address] [place] [address]Dr. Yuki Diaz FREE T3on 11-23-2022 FREE T3 2.20 pg/mlL Normal 2.18-3.98 [facility] Comment on above: Performed By: #### CMP, FT3, TSH, T4, LI PID ####[facility] S[address]hyxxaiy[address] [place] [address]Dr. Yuki Diaz GLYCOHEMOGLOBIN A1Con 2022 ADA RECOMMENDATION SEE BELOW Normal [facility] Comment on above: Result Comment: ADA RECOMMENDED LIMIT 4. 0 - 6.0 ADA THERAPEUTIC TARGET < 7.0 ACTION SUGGESTED > 7.0 Performed By: #### A 1C ####[facility] [address]uifmc[address] [place], [place] [address]Dr. Yuki Diaz Glucose [Mass/Vol] 171 mg/dL Normal [facility] Comment on above: Performed By: #### A1C ####[facility] Zolkqzrtjs7[address] [place] [address]Dr. Yuki Diaz HbA1c (Bld) [Mass fraction] 7.6 % Critically high 4.5-6.2 [facility] Comment on above: Performed By: #### A1C ####[facility] Rmrsgyfjbs44[address] [place] [address]Dr. Yuki Diaz LIPID PROFILEon 11-23-2022 CHOL-HDL RATIO NORM SEE BELOW Normal [facility] Comment on above: Result Comment: 3.3 - 4.4 LOW RISK 4.4 - 7.1 AVERAGE RISK 7.1 - 11.0 MODERATE RISK >11.0 HIGH RISK Performed By: #### C MP, FT3, TSH, T4, LIPID ####[facility] Syiuagdnmg[address] [place] [address]Dr. Yuki Diaz Cholesterol [Mass/Vol] 91 mg/dL Normal <=200 [facility] Comment on above: Performed By: #### CMP, FT3, TSH, T4, LI PID ####[facility] Jfdaflotkn45[address] [place] [address]Dr. Yuki Diaz Cholesterol in HDL [Mass/Vol] 51 mg/dL Normal 40-60 [facility] Comment on above: Performed By: #### CMP, FT3, TSH, T4, LI PID ####[facility] Fwqjxrjsoc260[address] [place] [address]Dr. Yuki Diaz Cholesterol in LDL [Mass/Vol] 27.2 mg/dL Normal [facility] Comment on above: Performed By: #### CMP, FT3, TSH, T4, LI PID ####[facility] [address]qwvosth[address] [place], [place] [address]Dr. Yuki Diaz Cholesterol.tota l/Cholesterol in HDL [Mass ratio] 1.8 {ratio} Normal [facility] Comment on above: Performed By: #### CMP, FT3, TSH, T4, LI PID ####[facility] Mmtnxrhtkn[address] [place], [place] [address]Dr. Yuki Daiz HDL NORMAL > or = 60 mg/dl - LO W CARDIOVASCULAR RISK <40 mg/dl - HIGH CARDIOVASCULAR RISK Normal [facility] Comment on above: Performed By: #### CMP, FT3, TSH, T4, LI PID ####[facility] Hiedvzwiiz[address] [place] [address]Dr. Yuki Diaz LDL CALC NORMAL SEE BELOW Normal [facility] Comment on above: Result Comment: <100 mg/dl OPTIMAL 100 - 129 mg/dl NEAR OR ABOVE OPTIMAL 130 - 159 mg/dl BORDERLINE HIGH 160 - 189 mg/dl HIGH >190 mg/dl VERY HIGH Performed By: #### C MP, FT3, TSH, T4, LIPID ####[facility] Bjkdyjvsny[address] [place], [place] [address]Dr. Yuki Diaz Triglyceride [Mass/Vol] 64 mg/dL Normal <=150 [facility] Comment on above: Performed By: #### CMP, FT3, TSH, T4, LI PID ####[facility] Afvwhkrgpz[address] [place], [place] [address]Dr. Yuki Diaz VLDL CALC 12.8 mg/dL Normal [facility] Comment on above: Performed By: #### CMP, FT3, TSH, T4, LI PID ####[facility] Yfzibosyfk[address] [place], [place] [address]Dr. Yuki Diaz PROF 14(COMP METB)on 023 Albumin [Mass/Vol] 2.9 g/dL Critically low 3.4-5.0 [facility] Comment on above: Performed By: #### CMP, FT3, TSH, T4, LI PID ####[facility] Zpqfhpbokw[address] [place], [place] [address]Dr. Yuki Diaz Albumin/Globulin [Mass ratio] 0.7 {ratio} Normal [facility] Comment on above: Performed By: #### CMP, FT3, TSH, T4, LI PID ####[facility] [address]umhjtfjm[address] [place], [place] [address]Dr. Yuki Diaz ALP [Catalytic activity/Vol] 95 U/L Normal 46-116 [facility] Comment on above: Performed By: #### CMP, FT3, TSH, T4, LI PID ####[facility] [address]rmtdfakg[address] [place], [place] [address]Dr. Yuki Diaz ALT [Catalytic activity/Vol] 15 U/L Critically low 16-63 [facility] Comment on above: Performed By: #### CMP, FT3, TSH, T4, LI PID ####[facility] Wrzuftutbd[address] [place], [place] [address]Dr. Yuki Diaz Anion gap [Moles/Vol] 13.2 mmol/L Normal [facility] Comment on above: Performed By: #### CMP, FT3, TSH, T4, LI PID ####[facility] Mbtmbkqurr9[address] [place], [place] [address]Dr. Yuki Diaz AST [Catalytic activity/Vol] 10 U/L Critically low 15-37 [facility] Comment on above: Performed By: #### CMP, FT3, TSH, T4, LI PID ####[facility] Dugihpemak[address] [place], [place] [address]Dr. Yuki Diaz Bilirubin [Mass/Vol] 0.7 mg/dL Normal 0.2-1.0 [facility] Comment on above: Performed By: #### CMP, FT3, TSH, T4, LI PID ####[facility] Fhprsboecv[address] [place], [place] [address]Dr. Yuki Diaz Calcium [Mass/Vol] 8.9 mg/dL Normal 8.5-10.1 [facility] Comment on above: Performed By: #### CMP, FT3, TSH, T4, LI PID ####[facility] Twkokegknj[address] [place], [place] [address]Dr. Yuki Diaz Chloride [Moles/Vol] 105 mmol/L Normal 98-107 [facility] Comment on above: Performed By: #### CMP, FT3, TSH, T4, LI PID ####[facility] Samncldooo23[address] [place], [place] [address]Dr. Yuki Diaz CO2 [Moles/Vol] 30.0 mmol/L Normal 21.0-32.0 [facility] Comment on above: Performed By: #### CMP, FT3, TSH, T4, LI PID ####[facility] Nbkzhteacq7[address] [place], [place] [address]Dr. Yuki Diaz Creatinine [Mass/Vol] 2.36 mg/dL Critically high 0.70-1.30 [facility] Comment on above: Performed By: #### CMP, FT3, TSH, T4, LI PID ####[facility] Cbnritwvq[address] [place], [place] [address]Dr. Yuki Diaz EGFR-AF DJIBOUTIAN 32 mL/min/1.73m2 Critically low >=60 [facility] Comment on above: Performed By: #### CMP, FT3, TSH, T4, LI PID ####[facility] Yuwlbdtyrj[address] [place], [place] [address]Dr. Yuki Diaz EGFR-NON AF DJIBOUTIAN 27 mL/min/1.73m2 Critically low >=60 [facility] Comment on above: Performed By: #### CMP, FT3, TSH, T4, LI PID ####[facility] Fmzeufgapm[address] [place], [place] [address]Dr. Yuki Diaz Globulin (S) [Mass/Vol] 4.2 g/dL Normal [facility] Comment on above: Performed By: #### CMP, FT3, TSH, T4, LI PID ####[facility] Ytwrxuyqtp45[address] [place] [address]Dr. Yuki Diaz Glucose [Mass/Vol] 96 mg/dL Normal 74-106 [facility] Comment on above: Performed By: #### CMP, FT3, TSH, T4, LI PID ####[facility] Mmikblqsap67[address] [place], [place] [address]Dr. Yuki Diaz Potassium [Moles/Vol] 4.2 mmol/L Normal 3.5-5.1 [facility] Comment on above: Performed By: #### CMP, FT3, TSH, T4, LI PID ####[facility] Bmagjoxeqk[address] [place], [place] [address]Dr. Yuki Diaz Protein [Mass/Vol] 7.1 g/dL Normal 6.4-8.2 [facility] Comment on above: Performed By: #### CMP, FT3, TSH, T4, LI PID ####[facility] Gcyxknikmb[address] [place], [place] [address]Dr. Yuki Diaz Sodium [Moles/Vol] 144 mmol/L Normal 136-145 [facility] Comment on above: Performed By: #### CMP, FT3, TSH, T4, LI PID ####[facility] Xxeesdqdqd04[address] [place], [place] [address]Dr. Yuki Diaz Urea nitrogen [Mass/Vol] 28.0 mg/dL Critically high 7.0-18.0 [facility] Comment on above: Performed By: #### CMP, FT3, TSH, T4, LI PID ####[facility] E[address]jzzxmsv[address] [place], [place] [address]Dr. Yuki Diaz Urea nitrogen/Creatin ine [Mass ratio] 11.9 mg/mg Normal [facility] Comment on above: Performed By: #### CMP, FT3, TSH, T4, LI PID ####[facility] [address]aufrcpvd[address] [place], [place] [address]Dr. Yuki Diaz T4on 11-23-2022 T4 [Mass/Vol] 7.70 ug/dL Normal 4.50-12.10 [facility] Comment on above: Performed By: #### CMP, FT3, TSH, T4, LI PID ####[facility] Xhlqlolslx[address] [place] [address]Dr. Yuki Diaz TSHon 11-23-2022 TSH 2.577 uIU/mL Normal 0.358-3.74 0 [facility] Comment on above: Performed By: #### CMP, FT3, TSH, T4, LI PID ####[facility] Yue[address]wugjwm[address] [place], [place] [address]Dr. Ykui Diaz VITAMIN D 25 OHon 11-23-2022 VIT D 25-OH 35.8 ng/mL Normal [facility] Comment on above: Performed By: #### VITAD, PSASC ####[facility] Lvxfivbafr[address] [place], [place] [address]Dr. Yuki Diaz VIT D RANGES SEE BELOW Normal [facility] Comment on above: Result Comment: <20 ng/mL Vit D deficien t 20 - <30 ng/mL Vit D insufficient 30 - 100 ng/mL Vit D sufficient >100 ng/mL Potential Toxicity Performed By: #### V ITAD, PSASC ####[facility] Hzmbbmeviu[address] [place], [place] [address]Dr. Yuki Diaz BNPon 10-27-2022 Natriuretic peptide B (Bld) [Mass/Vol] 6821.0 pg/mL Critically high <=1,800.0 [facility] Comment on above: Performed By: #### CMP, BNP ####[facility] [address]ubjnowcge[address] [place], [place] [address]Dr. Yuki Diaz CBC W MANUAL DIFFon 10-28-19 23 ACANTHOCYTES 1+ Normal [facility] Comment on above: Performed By: #### CBCMAN ####[facility] Xfvjkdzujg[address] [place], [place] [address]Dr. Yuki Diaz ATYPICAL LYMPH # Normal [facility] Comment on above: Performed By: #### CBCMAN ####[facility] ostal I[address]waok[address] [place], [place] [address]Dr. Yuki Diaz ATYPICAL LYMPH % Normal [facility] Comment on above: Performed By: #### CBCMAN ####[facility] ospital Uwfwwmkhzj[address] [place] [address]Dr. Yuki Diaz BAND # 0.0 103/ul Normal 0.0-0.3 [facility] Comment on above: Performed By: #### CBCMAN ####[facility] ospital Cqxenziosw40[address] [place] [address]Dr. Yialyssa Diaz BAND % 0 % Normal 0-5 [facility] Comment on above: Performed By: #### CBCMAN ####[facility] ospital Oqiyidxbkt[address] [place] [address]Dr. Yuki Diaz BASOM # 0.00 103/ul Normal 0.00-0.10 [facility] Comment on above: Performed By: #### CBCMAN ####[facility] ospital Gumcjualnq6199 [place] [address]Dr. Yuki Diaz BASOM % 0.0 % Critically low 0.2-2.0 [facility] Comment on above: Performed By: #### CBCMAN ####[facility] ospital Lsndmxajbe8537 [place] [address]Dr. Yuki Diaz BLAST # Normal [facility] Comment on above: Performed By: #### CBCMAN ####[facility] ospital Fmzkdqdrcq8[address] [place] [address]Dr. Yuki Diaz BLAST % Normal [facility] Comment on above: Performed By: #### CBCMAN ####[facility] ospital Djjtdnhzvk2975 [place] [address]Dr. Yuki Diaz CORRECTED WBC Normal 4.0-11.0 [facility] Comment on above: Performed By: #### CBCMAN ####[facility] ospital Dhybxxafhc1114 [place] [address]Dr. Yuki Diaz EOS # 0.00 103/ul Normal 0.00-0.70 [facility] Comment on above: Performed By: #### CBCMAN ####[facility] ospital [address]qasyco[address] [place], [place] [address]Yn. Yuki Diaz EOS% 0.0 % Critically low 0.9-7.0 [facility] Comment on above: Performed By: #### CBCCHANTE ####[facility] ospital Vxelzapbpg[address] [place], [place] [address]Dm. Yuki Diaz HCT 27.5 % Critically low 42.0-54.0 [facility] Comment on above: Performed By: #### CBCCHANTE ####[facility] ospital Qtxqblqywn5[address] [place], [place] [address]Cz. Yuki Diaz HGB 8.7 g/dl Critically low 14.0-18.0 [facility] Comment on above: Performed By: #### CBCCHANTE ####[facility] ospital Nktozqgzhe76[address] [place] [address]Dr. Yuki Diaz LYMPHM # 0.81 103/ul Critically low 1.20-3.80 [facility] Comment on above: Performed By: #### CBCCHANTE ####[facility] ospital Wmaiiejkfw38[address] [place], [place] [address]Cj. Yuki Diaz LYMPHM% 8.0 % Critically low 20.5-60.0 [facility] Comment on above: Performed By: #### CBCCHANTE ####[facility] ospital Khpezlviio7240 [place] [address]Dr. Yuki Diaz MCH 28.2 pg Normal 25.9-34.0 [facility] Comment on above: Performed By: #### CBCCHANTE ####[facility] ospital Sdgyyxqcje9[address] [place], [place] [address]Pz. Yuki Diaz MCHC 31.6 g/dl Normal 29.9-35.2 [facility] Comment on above: Performed By: #### CBCCHANTE ####[facility] ospital Bcnjqigfhf55[address] [place], [place] [address]Vh. Yuki Diaz MCV 89.0 fL Normal 80.0-94.0 [facility] Comment on above: Performed By: #### CBCCHANTE ####[facility] ospital Fwxhjiqerp9765 [place] [address]Dr. Yuki Diaz METAMYELOCYTE # Normal [facility] Comment on above: Performed By: #### CBCMAN ####[facility] ospital Glgwshgdul0[address] [place] [address]Dr. Yuki Diaz METAMYELOCYTE % Normal [facility] Comment on above: Performed By: #### CBCCHANTE ####[facility] ospital Suygayyrbw5556 [place] [address]Dr. Yuki Diaz MONOM# 0.40 103/ul Normal 0.30-0.80 [facility] Comment on above: Performed By: #### CBCCHANTE ####[facility] ospital Kjfjgvysau2294 [place] [address]Dr. Yuki Diaz MONOM% 4.0 % Normal 1.7-12.0 [facility] Comment on above: Performed By: #### CBCCHANTE ####[facility] ospital Sxbezomdrj4435 [place] [address]Dr. Yuki Diaz MPV 10.4 fL Normal 9.5-13.5 [facility] Comment on above: Performed By: #### CBCCHANTE ####[facility] ospital Sosobsdetm8149 [place] [address]Dr. Yuki Diaz MYELOCYTE # Normal [facility] Comment on above: Performed By: #### CBCCHANTE ####[facility] ospital Rbpzptexjs2588 [place] [address]Dr. Yuki Diaz MYELOCYTE % Normal [facility] Comment on above: Performed By: #### CBCCHANTE ####[facility] ospital Kunubgdxyr0702 [place] [address]Dr. Yuki Diaz NRBC Normal [facility] Comment on above: Performed By: #### CBCMAN ####[facility] ospital Noyusbpbrv0629 [place] [address]Dr. Yuki Diaz PLT 237 103/ul Normal 150-450 [facility] Comment on above: Performed By: #### CBCMAN ####[facility] ospital Idkudzjofe1884 [place], [place] [address]Qa. Yuki Diaz RBC 3.09 106/ul Critically low 4.70-6.10 [facility] Comment on above: Performed By: #### CBCMAN ####[facility] ospital Xhihairxgc4765 [place] [address]Dr. Yuki Diaz RDW 14.7 % Normal 11.0-15.0 [facility] Comment on above: Performed By: #### CBCMAN ####[facility] ospital Sqtutqeoxi58[address] [place] [address]Dr. Yuki Diaz SEG # 8.89 103/ul Critically high 1.40-6.50 [facility] Comment on above: Performed By: #### CBCMAN ####[facility] ospital Ozvbwhxcmy5993 [place] [address]Dr. Yuki Diaz SEG % 88.0 % Critically high 43.0-75.0 [facility] Comment on above: Performed By: #### CBCMAN ####[facility] ospital Yzouymefek3559 [place] [address]Dr. Yuki Diaz WBC 10.1 103/ul Normal 4.0-11.0 [facility] Comment on above: Performed By: #### CBCMAN ####[facility] ospital Occukblfpv9944 [place] [address]Dr. Yuki Diaz POINT OF CARE GLUCOSEon 10-06 Glucose [Mass/Vol] 225 mg/dL Critically high 74-106 [facility] Comment on above: Performed By: #### POCGLUC ####[facility] Tibevrbzbi[address] [place] [address]Dr. Yuki Diaz Glucose [Mass/Vol] 214 mg/dL Critically high 74-106 [facility] Comment on above: Performed By: #### POCGLUC ####[facility] Nytxvkhuly33[address] [place] [address]Dr. Yuki Diaz PRBC LEUKOREDUCEDon 10-28-19 23 PRBC LEUKOREDUCED Normal [facility] Comment on above: Performed By: #### PRBC ####[facility] Wcexiyctjx34[address] [place] [address]Dr. Yuki Diaz PROF 14(COMP METB)on 023 Albumin [Mass/Vol] 1.8 g/dL Critically low 3.4-5.0 [facility] [facility] Comment on above: Performed By: #### CMP, BNP ####[facility] Egtjvpghxh[address] [place] [address]Dr. Yuki Diaz Albumin/Globulin [Mass ratio] 0.5 {ratio} Normal [facility] Comment on above: Performed By: #### CMP, BNP ####[facility] Zgecujxyor[address] [place], [place] [address]Dr. Yuki Diaz ALP [Catalytic activity/Vol] 66 U/L Normal 46-116 [facility] Comment on above: Performed By: #### CMP, BNP ####[facility] Gneepuxrcn[address] [place], [place] [address]Dr. Yuki Diaz ALT [Catalytic activity/Vol] 13 U/L Critically low 16-63 [facility] Comment on above: Performed By: #### CMP, BNP ####[facility] Fpwmnwdkgm3826[address] [place], [place] [address]Dr. Yuki Diaz Anion gap [Moles/Vol] 11.8 mmol/L Normal [facility] Comment on above: Performed By: #### CMP, BNP ####[facility] Wtgxwnyxgo10[address] [place], [place] [address]Dr. Yuki Diaz AST [Catalytic activity/Vol] 14 U/L Critically low 15-37 [facility] Comment on above: Performed By: #### CMP, BNP ####[facility] Zrjzrfbesb399[address] [place], [place] [address]Dr. Yuki Diaz Bilirubin [Mass/Vol] 0.4 mg/dL Normal 0.2-1.0 [facility] Comment on above: Performed By: #### CMP, BNP ####[facility] Dvxylksett5[address] [place], [place] [address]Dr. Yuki Diaz Calcium [Mass/Vol] 8.2 mg/dL Critically low 8.5-10.1 [facility] Comment on above: Performed By: #### CMP, BNP ####[facility] Gbyhjdmbzk[address] [place] [address]Dr. Yuki Diaz Chloride [Moles/Vol] 103 mmol/L Normal 98-107 [facility] Comment on above: Performed By: #### CMP, BNP ####[facility] Qydgrpnwww66[address] [place], [place] [address]Dr. Yuki Diaz CO2 [Moles/Vol] 26.7 mmol/L Normal 21.0-32.0 [facility] Comment on above: Performed By: #### CMP, BNP ####[facility] Rsndcgeqyw0570[address] [place], [place] [address]Dr. Yuki Diaz Creatinine [Mass/Vol] 2.62 mg/dL Critically high 0.70-1.30 [facility] Comment on above: Performed By: #### CMP, BNP ####[facility] Xykuvrwghp7069[address] [place], [place] [address]Dr. Yuki Joe EGFR-AF DJIBOUTIAN 29 mL/min/1.73m2 Critically low >=60 [facility] Comment on above: Performed By: #### CMP, BNP ####[facility] Xwynwlrhug0605[address] [place], [place] [address]Dr. Yuki Diaz EGFR-NON AF DJIBOUTIAN 24 mL/min/1.73m2 Critically low >=60 [facility] Comment on above: Performed By: #### CMP, BNP ####[facility] Lmorzedxud[address] [place], [place] [address]Dr. Yuki Diaz Globulin (S) [Mass/Vol] 3.9 g/dL Normal [facility] Comment on above: Performed By: #### CMP, BNP ####[facility] Zmzzretvfy4266[address] [place], [place] [address]Dr. Yuki Joe Glucose [Mass/Vol] 209 mg/dL Critically high 74-106 [facility] Comment on above: Performed By: #### CMP, BNP ####[facility] Oixquqvsva7727[address] [place], [place] [address]Dr. Yuki Diaz Potassium [Moles/Vol] 4.5 mmol/L Normal 3.5-5.1 [facility] Comment on above: Performed By: #### CMP, BNP ####[facility] Wezxwizsrc[address] [place] [address]Dr. Yuki Diza Protein [Mass/Vol] 5.7 g/dL Critically low 6.4-8.2 [facility] Comment on above: Performed By: #### CMP, BNP ####[facility] Qgewhhcjjz6128[address] [place], [place] [address]Dr. Yuki Diaz Sodium [Moles/Vol] 137 mmol/L Normal 136-145 [facility] Comment on above: Performed By: #### CMP, BNP ####[facility] Qxnxpaurfd9960[address] [place], [place] [address]Dr. Yuki Diaz Urea nitrogen [Mass/Vol] 67.0 mg/dL Critically high 7.0-18.0 [facility] Comment on above: Performed By: #### CMP, BNP ####[facility] Qrrrxlznsx350[address] [place], [place] [address]Dr. Yuki Diaz Urea nitrogen/Creatin ine [Mass ratio] 25.6 mg/mg Normal [facility] Comment on above: Performed By: #### CMP, BNP ####[facility] Bisfstskei[address] [place], [place] [address]Dr. Yuki Diaz BNPon 10-26-2022 Natriuretic peptide B (Bld) [Mass/Vol] 3539.0 pg/mL Critically high <=1,800.0 [facility] Comment on above: Performed By: #### CMP, BNP ####[facility] Ffopfllhdj03[address] [place], [place] [address]Dr. Yuki Diaz CBC W MANUAL DIFFon 10-27-19 23 ATYPICAL LYMPH # Normal [facility] Comment on above: Performed By: #### CBCMAN ####[facility] Axaaynfuaz[address] [place], [place] [address]Dr. Yuki Diaz ATYPICAL LYMPH % Normal [facility] Comment on above: Performed By: #### CBCMAN ####[facility] ospital Lsypqqcgwz[address] [place], [place] [address]Dr. Yilan Diaz BAND # 0.0 103/ul Normal 0.0-0.3 [facility] Comment on above: Performed By: #### CBCMAN ####[facility] ospital Kpmmnxkqlq[address] [place] [address]Dr. Yuki Diaz BAND % 0 % Normal 0-5 [facility] Comment on above: Performed By: #### CBCMAN ####[facility] ospital Kncysopftl24[address] [place] [address]Dr. Yuki Diaz BASOM # 0.00 103/ul Normal 0.00-0.10 [facility] Comment on above: Performed By: #### CBCMAN ####[facility] ospital Kyyyscrclb13[address] [place] [address]Dr. Yuki Diaz BASOM % 0.0 % Critically low 0.2-2.0 [facility] Comment on above: Performed By: #### CBCMAN ####[facility] ospital Hizzibvytu0663 [place] [address]Dr. Yuki Diaz BLAST # Normal [facility] Comment on above: Performed By: #### CBCMAN ####[facility] ospital Sxxmyfbtse045[address] [place] [address]Dr. Yuki Diaz BLAST % Normal [facility] Comment on above: Performed By: #### CBCMAN ####[facility] ospital Oqhjcoosmq34[address] [place] [address]Dr. Yuki Diaz CORRECTED WBC Normal 4.0-11.0 [facility] Comment on above: Performed By: #### CBCMAN ####[facility] ospital Cmcbijexut6939 [place] [address]Dr. Yuki Diaz EOS # 0.00 103/ul Normal 0.00-0.70 [facility] Comment on above: Performed By: #### CBCMAN ####[facility] ospital Rhnljbzlmm1387 [place] [address]Dr. Yuki Diaz EOS% 0.0 % Critically low 0.9-7.0 [facility] Comment on above: Performed By: #### CBCMAN ####[facility] ospital Qynqreawws8538 [place] [address]Dr. Yuki Diaz HCT 28.9 % Critically low 42.0-54.0 [facility] Comment on above: Performed By: #### CBCCHANTE ####[facility] ospital Qnkpvqyngq7247 [place] [address]Dr. Yuki Diaz HGB 9.1 g/dl Critically low 14.0-18.0 [facility] Comment on above: Performed By: #### CBCCHANTE ####[facility] ospital Pzxgdhjupy080[address] [place] [address]Dr. Yuki Diaz LYMPHM # 0.37 103/ul Critically low 1.20-3.80 [facility] Comment on above: Performed By: #### CBCCHANTE ####[facility] o[facility] Dlglszykmv6689 [place] [address]Dr. Yuki Diaz LYMPHM% 3.0 % Critically low 20.5-60.0 [facility] Comment on above: Performed By: #### CBCCHANTE ####[facility] osp[facility] Txtrgkorju2412 [place] [address]Dr. Yuki Diaz MCH 28.4 pg Normal 25.9-34.0 [facility] Comment on above: Performed By: #### CBCCHANTE ####[facility] ospital Fxpaqgcnek1186 [place] [address]Dr. Yuki Diaz MCHC 31.5 g/dl Normal 29.9-35.2 [facility] Comment on above: Performed By: #### CBCCHANTE ####[facility] osp[facility] Xwuuutkcio9046 [place] [address]Dr. Yuki Diaz MCV 90.3 fL Normal 80.0-94.0 [facility] Comment on above: Performed By: #### CBCCHANTE ####[facility] o[facility] Cxxcwddpwh9210 [place] [address]Dr. Yuki Diaz METAMYELOCYTE # Normal [facility] Comment on above: Performed By: #### CBCCHANTE ####[facility] o[facility] Nyzbfmwafm69[address] [place] [address]Dr. Yuki Diaz METAMYELOCYTE % Normal [facility] Comment on above: Performed By: #### CBCCHANTE ####[facility] ospital Knrscbeumt3157 [place] [address]Dr. Yuki Diaz MONOM# 0.24 103/ul Critically low 0.30-0.80 [facility] Comment on above: Performed By: #### CBCCHANTE ####[facility] o[facility]ital Yseapitlin30[address] [place] [address]Dr. Yuki Diaz MONOM% 2.0 % Normal 1.7-12.0 [facility] Comment on above: Performed By: #### CBCCHANTE ####[facility] o[facility] Frefhicxej0824 [place] [address]Dr. Yuki Diaz MPV 10.3 fL Normal 9.5-13.5 [facility] Comment on above: Performed By: #### CBCCHANTE ####[facility] o[facility] Yoxureufsf5158 [place] [address]Dr. Yuki Diaz MYELOCYTE # Normal [facility] Comment on above: Performed By: #### CBCCHANTE ####[facility] ospital Edtipstnug3065 [place] [address]Dr. Yuki Diaz MYELOCYTE % Normal [facility] Comment on above: Performed By: #### CBCCHANTE ####[facility] o[facility] Ikrqnpknhe4242 [place] [address]Dr. Yuki Diaz NRBC Normal [facility] Comment on above: Performed By: #### CBCCHANTE ####[facility] o[facility] Qnmsyapaib4598 [place] [address]Dr. Yuki Diaz PLT 215 103/ul Normal 150-450 [facility] Comment on above: Performed By: #### CBCCHANTE ####[facility] o[facility] Ymuofwpvmc2280 [place] [address]Dr. Yuki Diaz RBC 3.20 106/ul Critically low 4.70-6.10 [facility] Comment on above: Performed By: #### CBCCHANTE ####[facility] Yprajuusem3384 [place], [place] [address]Qf. Yuki Diaz RDW 14.7 % Normal 11.0-15.0 [facility] Comment on above: Performed By: #### CBCMAN ####[facility] Clxakilwet6987 [place], [place] [address]Sx. Yuki Diaz SEG # 11.59 103/ul Critically high 1.40-6.50 [facility] Comment on above: Performed By: #### CBCMAN ####[facility] Safbpiolwl[address] [place] [address]Dr. Yuki Diaz SEG % 95.0 % Critically high 43.0-75.0 [facility] Comment on above: Performed By: #### CBCMAN ####[facility] Whuioexiua6564 [place] [address]Dr. Yuki Diaz WBC 12.2 103/ul Critically high 4.0-11.0 [facility] Comment on above: Performed By: #### CBCMAN ####[facility] Mjfnrmtsud0030 [place] [address]Dr. Yuki Diaz POINT OF CARE GLUCOSEon 10-06 Glucose [Mass/Vol] 292 mg/dL Critically high 74-106 [facility] Comment on above: Performed By: #### POCGLUC ####[facility] Sypicodxum0187 [place] [address]Dr. Yuki Diaz Glucose [Mass/Vol] 194 mg/dL Critically high 74-106 [facility] Comment on above: Performed By: #### POCGLUC ####[facility] Aqtnksfdjp3501 [place] [address]Dr. Yuki Diaz Glucose [Mass/Vol] 280 mg/dL Critically high 74-106 [facility] Comment on above: Performed By: #### POCGLUC ####[facility] Wxtgpruuhn7335 [place] [address]Dr. Yuki Diaz Glucose [Mass/Vol] 212 mg/dL Critically high 74-106 [facility] Comment on above: Performed By: #### POCGLUC ####[facility] Uopsiqwllk0672 [place] [address]Dr. Yuki iDaz Glucose [Mass/Vol] 148 mg/dL Critically high 74-106 [facility] Comment on above: Performed By: #### POCGLUC ####[facility] Jsvmqfrjqt39[address] [place], [place] [address]Dr. Yuki Diaz PRBC LEUKOREDUCEDon 10-27-19 23 PRBC LEUKOREDUCED Normal [facility] Comment on above: Performed By: #### PRBC ####[facility] pital Iaumtdizko4211 [place] [address]Dr. Yuki Diaz PROF 14(COMP METB)on 023 Albumin [Mass/Vol] 2.0 g/dL Critically low 3.4-5.0 [facility] Comment on above: Performed By: #### CMP, BNP ####[facility] Fshvfzatoy[address] [place], [place] [address]Dr. Yuki Diaz Albumin/Globulin [Mass ratio] 0.5 {ratio} Normal [facility] Comment on above: Performed By: #### CMP, BNP ####[facility] Osjkslirge[address] [place], [place] [address]Dr. Yuki Diaz ALP [Catalytic activity/Vol] 75 U/L Normal 46-116 [facility] Comment on above: Performed By: #### CMP, BNP ####[facility] Pktgnckeij[address] [place], [place] [address]Dr. Yuki Diaz ALT [Catalytic activity/Vol] 10 U/L Critically low 16-63 [facility] Comment on above: Performed By: #### CMP, BNP ####[facility] Iizjopobua60[address] [place], [place] [address]Dr. Yuki Diaz Anion gap [Moles/Vol] 13.9 mmol/L Normal [facility] Comment on above: Performed By: #### CMP, BNP ####[facility] Qcvohrbknf[address] [place], [place] [address]Dr. Yuki Diaz AST [Catalytic activity/Vol] 13 U/L Critically low 15-37 [facility] Comment on above: Performed By: #### CMP, BNP ####[facility] Fqqexjrobb[address] [place], [place] [address]Dr. Yuki Diaz Bilirubin [Mass/Vol] 0.7 mg/dL Normal 0.2-1.0 [facility] Comment on above: Performed By: #### CMP, BNP ####[facility] Kaxybzozhx2828[address] [place], [place] [address]Dr. Yuki Diaz Calcium [Mass/Vol] 8.5 mg/dL Normal 8.5-10.1 [facility] Comment on above: Performed By: #### CMP, BNP ####[facility] Rknfwhszed8007[address] [place], [place] [address]Dr. Yuki Diaz Chloride [Moles/Vol] 103 mmol/L Normal 98-107 [facility] Comment on above: Performed By: #### CMP, BNP ####[facility] Rgdmdpvwff8578[address] [place], [place] [address]Dr. Yuki Diaz CO2 [Moles/Vol] 25.8 mmol/L Normal 21.0-32.0 [facility] Comment on above: Performed By: #### CMP, BNP ####[facility] Kqabhrvoss95[address] [place], [place] [address]Dr. Yuki Diaz Creatinine [Mass/Vol] 2.87 mg/dL Critically high 0.70-1.30 [facility] Comment on above: Performed By: #### CMP, BNP ####[facility] Nzwjxykqgj20[address] [place], [place] [address]Dr. Yuki Diaz EGFR-AF DJIBOUTIAN 26 mL/min/1.73m2 Critically low >=60 [facility] Comment on above: Performed By: #### CMP, BNP ####[facility] Lkumguczqi3306[address] [place], [place] [address]Dr. Yuki Diaz EGFR-NON AF DJIBOUTIAN 21 mL/min/1.73m2 Critically low >=60 [facility] Comment on above: Performed By: #### CMP, BNP ####[facility] Zycokygigi6415[address] [place], [place] [address]Dr. Yuki Diaz Globulin (S) [Mass/Vol] 4.0 g/dL Normal [facility] Comment on above: Performed By: #### CMP, BNP ####[facility] Tgzicyfiqy4114 [place] [address]Dr. Yuki Diaz Glucose [Mass/Vol] 209 mg/dL Critically high 74-106 [facility] Comment on above: Performed By: #### CMP, BNP ####[facility] Aojqhgtgqo2134 [place] [address]Dr. Yuki iDaz Potassium [Moles/Vol] 4.7 mmol/L Normal 3.5-5.1 [facility] Comment on above: Performed By: #### CMP, BNP ####[facility] Eizuzvsham5[address] [place], [place] [address]Dr. Yuki Diaz Protein [Mass/Vol] 6.0 g/dL Critically low 6.4-8.2 [facility] Comment on above: Performed By: #### CMP, BNP ####[facility] Psvzemhvsn4975[address] [place], [place] [address]Dr. Yuki Diaz Sodium [Moles/Vol] 138 mmol/L Normal 136-145 [facility] Comment on above: Performed By: #### CMP, BNP ####[facility] Hwjbbbktxo05[address] [place], [place] [address]Dr. Yuki Diaz Urea nitrogen [Mass/Vol] 58.0 mg/dL Critically high 7.0-18.0 [facility] Comment on above: Performed By: #### CMP, BNP ####[facility] Saryyuxacu7[address] [place], [place] [address]Dr. Yuki Diaz Urea nitrogen/Creatin ine [Mass ratio] 20.2 mg/mg Normal [facility] Comment on above: Performed By: #### CMP, BNP ####[facility] Mogeahszfe37[address] [place], [place] [address]Dr. Yuki Diaz XR KNEE LT 4V or >on 023 XR KNEE LT 4V or > Normal [facility] CBC AUTO DIFFon 10-25-2022 BASO # 0.0 103/ul Normal 0.0-0.1 [facility] Comment on above: Performed By: #### CBC ####[facility] Dlehnwucvc64[address] [place] [address]Dr. Yuki Diaz Basophils/100 WBC (Bld) 0.0 % Critically low 0.2-2.0 [facility] Comment on above: Performed By: #### CBC ####[facility] Qtpdejcxmz[address] [place], [place] [address]Dr. Yuki Diaz EO # 0.0 103/ul Normal 0.0-0.7 [facility] Comment on above: Performed By: #### CBC ####[facility] Gohhlnnuwh98[address] [place], [place] [address]Dr. Yuki Diaz Eosinophils/100 WBC (Bld) 0.0 % Critically low 0.9-7.0 [facility] Comment on above: Performed By: #### CBC ####[facility] Fhxrvohlrc0516[address] [place], [place] [address]Dr. Yuki Diaz Erythrocyte distribution width (RBC) [Ratio] 14.7 % Normal 11.0-15.0 [facility] Comment on above: Performed By: #### CBC ####[facility] Szzzkwwlfh9[address] [place], [place] [address]Dr. Yuki Diaz Hematocrit (Bld) [Volume fraction] 30.9 % Critically low 42.0-54.0 [facility] Comment on above: Performed By: #### CBC ####[facility] Imckhzuvbh4987[address] [place], [place] [address]Dr. Yuki Diaz Hemoglobin (Bld) [Mass/Vol] 9.6 g/dL Critically low 14.0-18.0 [facility] Comment on above: Result Comment: pt. rcvd. blood Performed By: #### C BC ####[facility] Wqnwyrtjry[address] [place], [place] [address]Dr. Yuki Diaz IG # 0.06 10e3/ul Critically high 0.00-0.03 [facility] Comment on above: Performed By: #### CBC ####[facility] Cpcirfioxa04[address] [place], [place] [address]Dr. Monsealyssa Diaz IG % 0.5 % Normal 0.0-0.5 [facility] Comment on above: Performed By: #### CBC ####[facility] ital Rjayuvqqis5233 [place] [address]Dr. Yuki Diaz LYMPH # 0.4 103/ul Critically low 1.2-3.8 [facility] Comment on above: Performed By: #### CBC ####[facility] ital Vgjvwaupld5219 [place] [address]Dr. Yuki Diaz Lymphocytes/100 WBC (Bld) 3.5 % Critically low 20.5-60.0 [facility] Comment on above: Performed By: #### CBC ####[facility] ital Lsbekblsjp3135 [place] [address]Dr. Yuki Diaz MANUAL DIFF REQ NO Normal [facility] Comment on above: Performed By: #### CBC ####[facility] Bovoqefzwp8240 [place] [address]Dr. Yuki Diaz MCH (RBC) [Entitic mass] 28.3 pg Normal 25.9-34.0 [facility] Comment on above: Performed By: #### CBC ####[facility] Foagcdrvrs1254 [place] [address]Dr. Yuki Diaz MCHC (RBC) [Mass/Vol] 31.1 g/dL Normal 29.9-35.2 [facility] Comment on above: Performed By: #### CBC ####[facility] Zjajydxcbf8066 [place] [address]Dr. Yuki Diaz MCV (RBC) [Entitic vol] 91.2 fL Normal 80.0-94.0 [facility] Comment on above: Performed By: #### CBC ####[facility] Xsydllqlto1877 [place] [address]Dr. Yuki Diaz MONO # 0.5 103/ul Normal 0.3-0.8 [facility] Comment on above: Performed By: #### CBC ####[facility] Rgqapqygjv7747 [place] [address]Dr. Yuki Diaz Monocytes/100 WBC (Bld) 4.4 % Normal 1.7-12.0 [facility] Comment on above: Performed By: #### CBC ####[facility] ital Kidwjwuunt1396 [place] [address]Dr. Yuki Diaz NEUT # 10.8 103/ul Critically high 1.4-6.5 [facility] Comment on above: Performed By: #### CBC ####[facility] ital Wkxqvdahlu6273 [place] [address]Dr. Yuki Diaz Neutrophils/100 WBC (Bld) 91.6 % Critically high 43.0-75.0 [facility] Comment on above: Performed By: #### CBC ####[facility] ital Jmmttxizqq0101 [place] [address]Dr. Yuki Diaz Platelet mean volume (Bld) [Entitic vol] 10.1 fL Normal 9.5-13.5 [facility] Comment on above: Performed By: #### CBC ####[facility] Geutopnbms2583 [place] [address]Dr. Yuki Diaz PLT 223 103/ul Normal 150-450 [facility] Comment on above: Performed By: #### CBC ####[facility] Oydzghydry6217 [place] [address]Dr. Yuki Diaz RBC 3.39 106/ul Critically low 4.70-6.10 [facility] Comment on above: Performed By: #### CBC ####[facility] Tlxivskxiq3382 [place] [address]Dr. Yuki Diaz WBC 11.8 103/ul Critically high 4.0-11.0 [facility] Comment on above: Performed By: #### CBC ####[facility] Nxfizxjsok9345 [place] [address]Dr. Yuki Diaz BASO # 0.0 103/ul Normal 0.0-0.1 [facility] Comment on above: Performed By: #### CBC ####[facility] Sgkofonmwl6085 [place] [address]Dr. Yuki Diaz Basophils/100 WBC (Bld) 0.1 % Critically low 0.2-2.0 [facility] Comment on above: Performed By: #### CBC ####[facility] Qbqxxtqcyh3158 [place] [address]Dr. Yuki Diaz EO # 0.0 103/ul Normal 0.0-0.7 [facility] Comment on above: Performed By: #### CBC ####[facility] Lykselvjoy6312 [place] [address]Dr. Yuki Diaz Eosinophils/100 WBC (Bld) 0.2 % Critically low 0.9-7.0 [facility] Comment on above: Performed By: #### CBC ####[facility] Zvfpwbvljt6502 [place] [address]Dr. Yuki Diaz Erythrocyte distribution width (RBC) [Ratio] 15.1 % Critically high 11.0-15.0 [facility] Comment on above: Performed By: #### CBC ####[facility] Vhmzicyafu6483 [place] [address]Dr. Yuki Diaz Hematocrit (Bld) [Volume fraction] 23.7 % Critically low 42.0-54.0 [facility] Comment on above: Performed By: #### CBC ####[facility] Okvtkydqvb4165 [place] [address]Dr. Yuki Diaz Hemoglobin (Bld) [Mass/Vol] 7.4 g/dL Critically low 14.0-18.0 [facility] Comment on above: Performed By: #### CBC ####[facility] Rijgybsrby4528 [place] [address]Dr. Yuki Diaz IG # 0.07 10e3/ul Critically high 0.00-0.03 [facility] Comment on above: Performed By: #### CBC ####[facility] Bvaqetocuj1365 [place] [address]Dr. Yuki Diaz IG % 0.6 % Critically high 0.0-0.5 [facility] Comment on above: Performed By: #### CBC ####[facility] Flabsgiwpw1512 [place] [address]Dr. Yuki Diaz LYMPH # 0.8 103/ul Critically low 1.2-3.8 [facility] Comment on above: Performed By: #### CBC ####[facility] Abaxmbuxid5057 [place] [address]Dr. Yuki Diaz Lymphocytes/100 WBC (Bld) 6.6 % Critically low 20.5-60.0 [facility] Comment on above: Performed By: #### CBC ####[facility] ital Dzpkdfwdqp3791 [place] [address]Dr. Monsealyssa Diaz MANUAL DIFF REQ NO Normal [facility] Comment on above: Performed By: #### CBC ####[facility] Uvjjxafjyk7794 [place] [address]Dr. Yuki Diaz MCH (RBC) [Entitic mass] 28.1 pg Normal 25.9-34.0 [facility] Comment on above: Performed By: #### CBC ####[facility] Fznamyqwpx5412 [place] [address]Dr. Monsealyssa Diaz MCHC (RBC) [Mass/Vol] 31.2 g/dL Normal 29.9-35.2 [facility] Comment on above: Performed By: #### CBC ####[facility] Httqosqcud1691 [place] [address]Dr. Monsealyssa Diaz MCV (RBC) [Entitic vol] 90.1 fL Normal 80.0-94.0 [facility] Comment on above: Performed By: #### CBC ####[facility] Ibqoukvrqv5760 [place] [address]Dr. Monsealyssa Diaz MONO # 1.5 103/ul Critically high 0.3-0.8 [facility] Comment on above: Performed By: #### CBC ####[facility] Dqpwddikyr6051 [place] [address]Dr. Monsealyssa Diaz Monocytes/100 WBC (Bld) 11.5 % Normal 1.7-12.0 [facility] Comment on above: Performed By: #### CBC ####[facility] Mwwtzuzdxa8717 [place] [address]Dr. Yuki Diaz NEUT # 10.2 103/ul Critically high 1.4-6.5 [facility] Comment on above: Performed By: #### CBC ####[facility] ital Eabarelfmn3831 [place] [address]Dr. Yuki Diaz Neutrophils/100 WBC (Bld) 81.0 % Critically high 43.0-75.0 [facility] Comment on above: Performed By: #### CBC ####[facility] ital Rxhyrymeyy5775 [place] [address]Dr. Yuki Diaz Platelet mean volume (Bld) [Entitic vol] 10.7 fL Normal 9.5-13.5 [facility] Comment on above: Performed By: #### CBC ####[facility] ital Huzhlcbqob8110 [place] [address]Dr. Yuki Diaz PLT 204 103/ul Normal 150-450 [facility] Comment on above: Performed By: #### CBC ####[facility] Wplxwpirks3061 [place] [address]Dr. Yuki Diaz RBC 2.63 106/ul Critically low 4.70-6.10 [facility] Comment on above: Performed By: #### CBC ####[facility] Soygolgdjr4440 [place] [address]Dr. Yuki Diaz WBC 12.6 103/ul Critically high 4.0-11.0 [facility] Comment on above: Performed By: #### CBC ####[facility] Nqzlzerimb5945 [place] [address]Dr. Yuki Diaz CT ABD/PELVIS WO CONon 10-25 CT ABD/PELVIS WO CON Normal [facility] CT PELVIS WO CONon 3 CT PELVIS WO CON Normal [facility] POINT OF CARE GLUCOSEon 10-06 Glucose [Mass/Vol] 65 mg/dL Critically low 74-106 [facility] Comment on above: Performed By: #### POCGLUC ####[facility] Yxqjbihjnh[address] [place], [place] [address]Dr. Yuki Diaz Glucose [Mass/Vol] 137 mg/dL Critically high 74-106 [facility] Comment on above: Performed By: #### POCGLUC ####[facility] Zttuhcxozq[address] [place], [place] [id number]. Yuki Diaz Glucose [Mass/Vol] 118 mg/dL Critically high 74-106 [facility] Comment on above: Performed By: #### POCGLUC ####[facility] Drxdfpuimt0683 [place] [address]Dr. Yuki Diaz PROF 14(COMP METB)on 10-25- 023 Albumin [Mass/Vol] 2.2 g/dL Critically low 3.4-5.0 [facility] Comment on above: Performed By: #### CMP ####[facility] ital Fltlogdotp4644 [place] [address]Dr. Yuki Diaz Albumin/Globulin [Mass ratio] 0.6 {ratio} Normal [facility] Comment on above: Performed By: #### CMP ####[facility] ital Ytsexmkmsh9529 [place] [address]Dr. Yuki Diaz ALP [Catalytic activity/Vol] 64 U/L Normal 46-116 [facility] Comment on above: Performed By: #### CMP ####[facility] ital Lcryddrlyp3239 [place] [address]Dr. Yuki Diaz ALT [Catalytic activity/Vol] 11 U/L Critically low 16-63 [facility] Comment on above: Performed By: #### CMP ####[facility] ital Azsnjdhfsp5947 [place] [address]Dr. Yuki Diaz Anion gap [Moles/Vol] 13.5 mmol/L Normal [facility] Comment on above: Performed By: #### CMP ####[facility] ital Nquzbmiaig7215 [place] [address]Dr. Yuki Diaz AST [Catalytic activity/Vol] 12 U/L Critically low 15-37 [facility] Comment on above: Performed By: #### CMP ####[facility] ital Fozfadgell4233 [place] [address]Dr. Yuki Diaz Bilirubin [Mass/Vol] 0.8 mg/dL Normal 0.2-1.0 [facility] Comment on above: Performed By: #### CMP ####[facility] ital Rwdpfpggzd0337 [place] [address]Dr. Yuki Diaz Calcium [Mass/Vol] 8.5 mg/dL Normal 8.5-10.1 [facility] Comment on above: Performed By: #### CMP ####[facility] ital Sroyhyohvc1983 [place] [address]Dr. Yuki Diaz Chloride [Moles/Vol] 100 mmol/L Normal 98-107 [facility] Comment on above: Performed By: #### CMP ####[facility] ital Proadkwgkl9134 [place] [address]Dr. Monsealyssa Joe CO2 [Moles/Vol] 28.1 mmol/L Normal 21.0-32.0 [facility] Comment on above: Performed By: #### CMP ####[facility] Zjkycclset0727 [place] [address]Dr. Yuki Diaz Creatinine [Mass/Vol] 2.93 mg/dL Critically high 0.70-1.30 [facility] Comment on above: Performed By: #### CMP ####[facility] Iyvukfjjqy9261 [place] [address]Dr. Yuki Diaz EGFR-AF DJIBOUTIAN 25 mL/min/1.73m2 Critically low >=60 [facility] Comment on above: Performed By: #### CMP ####[facility] Fftgzjjgbx3283 [place] [address]Dr. Yuki Diaz EGFR-NON AF DJIBOUTIAN 21 mL/min/1.73m2 Critically low >=60 [facility] Comment on above: Performed By: #### CMP ####[facility] ital Qcrvgndwlf8971 [place] [address]Dr. Yuki Diaz Globulin (S) [Mass/Vol] 3.7 g/dL Normal [facility] Comment on above: Performed By: #### CMP ####[facility] Jnxiifgtsi7332 [place] [address]Dr. Yuki Diaz Glucose [Mass/Vol] 112 mg/dL Critically high 74-106 [facility] Comment on above: Performed By: #### CMP ####[facility] Dlsuehxynk5142 [place] [address]Dr. Yuki Diaz Potassium [Moles/Vol] 4.6 mmol/L Normal 3.5-5.1 [facility] Comment on above: Performed By: #### CMP ####[facility] Fctjmgifrr2935 [place] [address]Dr. Yuki Diaz Protein [Mass/Vol] 5.9 g/dL Critically low 6.4-8.2 [facility] Comment on above: Performed By: #### CMP ####[facility] ital Iuzozrrzkd6384 [place] [address]Dr. Yuki Diaz Sodium [Moles/Vol] 137 mmol/L Normal 136-145 [facility] Comment on above: Performed By: #### CMP ####[facility] Luierniqvf9628 [place] [address]Dr. Yuki Diaz Urea nitrogen [Mass/Vol] 56.0 mg/dL Critically high 7.0-18.0 [facility] Comment on above: Performed By: #### CMP ####[facility] Uyumgaqmob0[address] [place], [place] [address]Dr. Yuki Diaz Urea nitrogen/Creatin ine [Mass ratio] 19.1 mg/mg Normal [facility] Comment on above: Performed By: #### CMP ####[facility] Udmsohcsxm[address] [place], [place] [address]Dr. Yuki Diaz TYPE AND SCREENon 10-25-2022 TYPE AND SCREEN Negative Normal [facility] Comment on above: Performed By: #### TNS ####[facility] Ifjvrxdfai[address] [place], [place] [address]Dr. Yuki Diaz XR CHEST 1 Von 10-25-2022 XR CHEST 1 V Normal [facility] CBC AUTO DIFFon 10-24-2022 BASO # 0.0 103/ul Normal 0.0-0.1 [facility] Comment on above: Performed By: #### CBC ####[facility] Cdcemxyjwb5749 [place] [address]Dr. Yuki Diaz Basophils/100 WBC (Bld) 0.1 % Critically low 0.2-2.0 [facility] Comment on above: Performed By: #### CBC ####[facility] ital Krkqrtdyzd4296 [place] [address]Dr. Yuki Diaz EO # 0.0 103/ul Normal 0.0-0.7 [facility] Comment on above: Performed By: #### CBC ####[facility] ital Neeeobfunp2907 [place] [address]Dr. Yuki Diaz Eosinophils/100 WBC (Bld) 0.0 % Critically low 0.9-7.0 [facility] Comment on above: Performed By: #### CBC ####[facility] ital Mxdjovwzdo2356 [place] [address]Dr. Yuki Diaz Erythrocyte distribution width (RBC) [Ratio] 15.2 % Critically high 11.0-15.0 [facility] Comment on above: Performed By: #### CBC ####[facility] Zwqtxgcyot142[address] [place], [place] [address]Dr. Yuki Diaz Hematocrit (Bld) [Volume fraction] 27.4 % Critically low 42.0-54.0 [facility] Comment on above: Performed By: #### CBC ####[facility] Zsliwlpplu5889 [place] [address]Dr. Yuki Diaz Hemoglobin (Bld) [Mass/Vol] 8.4 g/dL Critically low 14.0-18.0 [facility] Comment on above: Performed By: #### CBC ####[facility] ital Onwtxfhqbl3018 [place] [address]Dr. Yuki Diaz IG # 0.13 10e3/ul Critically high 0.00-0.03 [facility] Comment on above: Performed By: #### CBC ####[facility] ital Bwsbvrttas9863 [place] [address]Dr. Yuki Diaz IG % 0.7 % Critically high 0.0-0.5 [facility] Comment on above: Performed By: #### CBC ####[facility] ital Uwxvwkgowx8717[address] [place], [place] [address]Dr. Yuki Diaz LYMPH # 1.0 103/ul Critically low 1.2-3.8 [facility] Comment on above: Performed By: #### CBC ####[facility] ital Plgguzaoco4058 [place] [address]Dr. Yuki Diaz Lymphocytes/100 WBC (Bld) 5.5 % Critically low 20.5-60.0 [facility] Comment on above: Performed By: #### CBC ####[facility] ital Ohpfvarhjj5241 [place] [address]DrBebo Diaz MANUAL DIFF REQ NO Normal [facility] Comment on above: Performed By: #### CBC ####[facility] ital Ouujbyqdbg3345 [place] [address]Dr. Yuki Diaz MCH (RBC) [Entitic mass] 27.8 pg Normal 25.9-34.0 [facility] Comment on above: Performed By: #### CBC ####[facility] ital Pjrnghjbhp5828 [place] [address]Dr. Yuki Diaz MCHC (RBC) [Mass/Vol] 30.7 g/dL Normal 29.9-35.2 [facility] Comment on above: Performed By: #### CBC ####[facility] ital Nywthkgfkp2181 [place] [address]Dr. Yuki Diaz MCV (RBC) [Entitic vol] 90.7 fL Normal 80.0-94.0 [facility] Comment on above: Performed By: #### CBC ####[facility] ital Scjjgwoudw5199 [place] [address]Dr. Yuki Diaz MONO # 2.8 103/ul Critically high 0.3-0.8 [facility] Comment on above: Performed By: #### CBC ####[facility] ital Pcoqbgaqdv2644 [place] [address]DrBebo Diaz Monocytes/100 WBC (Bld) 15.0 % Critically high 1.7-12.0 [facility] Comment on above: Performed By: #### CBC ####[facility] ital Qsjcmiavcx6939 [place] [address]Dr. Yuki Diaz NEUT # 14.9 103/ul Critically high 1.4-6.5 [facility] Comment on above: Performed By: #### CBC ####[facility] ital Vufuttdfzn4456 [place] [address]DrBebo Diaz Neutrophils/100 WBC (Bld) 78.7 % Critically high 43.0-75.0 [facility] Comment on above: Performed By: #### CBC ####[facility] ital Falhazznqe5684 [place] [address]DrBebo Diaz Platelet mean volume (Bld) [Entitic vol] 10.8 fL Normal 9.5-13.5 [facility] Comment on above: Performed By: #### CBC ####[facility] Hhanpisvxp0727 [place] [address]DrBebo Diaz PLT 212 103/ul Normal 150-450 [facility] Comment on above: Performed By: #### CBC ####[facility] Zipzhjaiik2215 [place] [address]DrBebo Diaz RBC 3.02 106/ul Critically low 4.70-6.10 [facility] Comment on above: Performed By: #### CBC ####[facility] Qkogmvvjmp0808 [place] [address]DrBebo Diaz WBC 18.9 103/ul Critically high 4.0-11.0 [facility] Comment on above: Performed By: #### CBC ####[facility] Wzwdusanvy2897 [place] [address]Dr. Y[address] Diaz CT KNEE RT WO CONon 10-25-19 CT KNEE RT WO CON Normal [facility] POINT OF CARE GLUCOSEon 10-06 0 Glucose [Mass/Vol] 110 mg/dL Critically high 74-106 [facility] Comment on above: Performed By: #### POCGLUC ####[facility] Cmmrmhasjs3213 [place] [address]DrBebo Diaz Glucose [Mass/Vol] 134 mg/dL Critically high 74-106 [facility] Comment on above: Performed By: #### POCGLUC ####[facility] Rtquekcapq4988 [place] [address]Dr. Yuki Diaz PROF 14(COMP METB)on 023 Albumin [Mass/Vol] 2.8 g/dL Critically low 3.4-5.0 [facility] Comment on above: Performed By: #### CMP ####[facility] ital Pzvldjjmvk1001 [place] [address]Dr. Yuki Diaz Albumin/Globulin [Mass ratio] 0.8 {ratio} Normal [facility] Comment on above: Performed By: #### CMP ####[facility] ital Xbmtkwosxh8370 [place] [address]Dr. Yuki Diaz ALP [Catalytic activity/Vol] 89 U/L Normal 46-116 [facility] Comment on above: Performed By: #### CMP ####[facility] ital Pwmzinzsih1479 [place] [address]Dr. Yuki Diaz ALT [Catalytic activity/Vol] 10 U/L Critically low 16-63 [facility] Comment on above: Performed By: #### CMP ####[facility] ital Wovvrdhjoh3396 [place] [address]Dr. Yuki Diaz Anion gap [Moles/Vol] 11.7 mmol/L Normal [facility] Comment on above: Performed By: #### CMP ####[facility] ital Blnncrskdb9250 [place] [address]Dr. Yuki Diaz AST [Catalytic activity/Vol] 12 U/L Critically low 15-37 [facility] Comment on above: Performed By: #### CMP ####[facility] ital Uxjxuefrsw6859 [place] [address]Dr. Yuki Diaz Bilirubin [Mass/Vol] 0.9 mg/dL Normal 0.2-1.0 [facility] Comment on above: Performed By: #### CMP ####[facility] ital Lcdyxeqedb7736 [place] [address]Dr. Yuki Diaz Calcium [Mass/Vol] 8.7 mg/dL Normal 8.5-10.1 [facility] Comment on above: Performed By: #### CMP ####[facility] ital Wrzxghhhhn7745 [place] [address]Dr. Yuki Diaz Chloride [Moles/Vol] 102 mmol/L Normal 98-107 [facility] Comment on above: Performed By: #### CMP ####[facility] ital Bvmgterjld6558 [place] [address]Dr. Yuki Diaz CO2 [Moles/Vol] 29.1 mmol/L Normal 21.0-32.0 [facility] Comment on above: Performed By: #### CMP ####[facility] ital Zsjxvazwhi8095 [place] [address]Dr. Yuki Diaz Creatinine [Mass/Vol] 2.75 mg/dL Critically high 0.70-1.30 [facility] Comment on above: Performed By: #### CMP ####[facility] Yajlxdomaw5016 [place] [address]Dr. Yuki Diaz EGFR-AF DJIBOUTIAN 27 mL/min/1.73m2 Critically low >=60 [facility] Comment on above: Performed By: #### CMP ####[facility] Mukxukchgm0530 [place] [address]Dr. Monsealyssa Joe EGFR-NON AF DJIBOUTIAN 22 mL/min/1.73m2 Critically low >=60 [facility] Comment on above: Performed By: #### CMP ####[facility] Iikrvrbscx2684 [place] [address]Dr. Yuki Diaz Globulin (S) [Mass/Vol] 3.7 g/dL Normal [facility] Comment on above: Performed By: #### CMP ####[facility] Bvegywfmkm6449 [place] [address]Dr. Yuki Diaz Glucose [Mass/Vol] 121 mg/dL Critically high 74-106 [facility] Comment on above: Performed By: #### CMP ####[facility] ital Uqxmlgggrm6762 [place] [address]Dr. Yuki Diaz Potassium [Moles/Vol] 4.8 mmol/L Normal 3.5-5.1 [facility] Comment on above: Performed By: #### CMP ####[facility] ital Frtxkjiogi56[address] [place], [place] [address]Dr. Yuki Diaz Protein [Mass/Vol] 6.5 g/dL Normal 6.4-8.2 [facility] Comment on above: Performed By: #### CMP ####[facility] Kykluyeccf0547 [place] [address]Dr. Yuki Diaz Sodium [Moles/Vol] 138 mmol/L Normal 136-145 [facility] Comment on above: Performed By: #### CMP ####[facility] ital Wlfrpfwzdv6904 [place] [address]Dr. Yuki Diaz Urea nitrogen [Mass/Vol] 39.0 mg/dL Critically high 7.0-18.0 [facility] Comment on above: Performed By: #### CMP ####[facility] Lhixanodfu4861 [place] [address]Dr. Yuki Diaz Urea nitrogen/Creatin ine [Mass ratio] 14.2 mg/mg Normal [facility] Comment on above: Performed By: #### CMP ####[facility] Ebsdwoprva99[address] [place], [place] [address]Dr. Yuki Diaz US KIDNEYS BLADDERon 023 US KIDNEYS BLADDER Normal [facility] XR CHEST 1 Von 10-24-2022 XR CHEST 1 V Normal [facility] CBC AUTO DIFFon 10-23-2022 BASO # 0.0 103/ul Normal 0.0-0.1 [facility] Comment on above: Performed By: #### CBC ####[facility] Dzpjtidodx1453 [place] [address]Dr. Yuki Joe Basophils/100 WBC (Bld) 0.1 % Critically low 0.2-2.0 [facility] Comment on above: Performed By: #### CBC ####[facility] Dexafgofpt0427 [place] [address]Dr. Yuki Diaz EO # 0.1 103/ul Normal 0.0-0.7 [facility] Comment on above: Performed By: #### CBC ####[facility] Oinggznxzm0671 [place] [address]Dr. Monsealyssa Joe Eosinophils/100 WBC (Bld) 0.4 % Critically low 0.9-7.0 [facility] Comment on above: Performed By: #### CBC ####[facility] [address]wt[address]xc[address] [place] [address]. Yuki Diaz Erythrocyte distribution width (RBC) [Ratio] 15.0 % Normal 11.0-15.0 [facility] Comment on above: Performed By: #### CBC ####[facility] T[address]ejfzwp[address] [place] [address]. Yuki Diaz Hematocrit (Bld) [Volume fraction] 29.8 % Critically low 42.0-54.0 [facility] Comment on above: Performed By: #### CBC ####[facility] [address]rrvlxbbu[address] [place] [address]. Yuki Diaz Hemoglobin (Bld) [Mass/Vol] 9.1 g/dL Critically low 14.0-18.0 [facility] Comment on above: Performed By: #### CBC ####[facility] Ibffgcdctz[address] [place] [address]. Yuki Diaz IG # 0.07 10e3/ul Critically high 0.00-0.03 [facility] Comment on above: Performed By: #### CBC ####[facility] Zawngsazyn8[address] [place] [address]. Yuki Diaz IG % 0.5 % Normal 0.0-0.5 [facility] Comment on above: Performed By: #### CBC ####[facility] Wopgnupjur[address] [place] [address]. Yuki Diaz LYMPH # 1.0 103/ul Critically low 1.2-3.8 [facility] Comment on above: Performed By: #### CBC ####[facility] Xlihtdpivq[address] [place] [address]. Yuki Diaz Lymphocytes/100 WBC (Bld) 7.8 % Critically low 20.5-60.0 [facility] Comment on above: Performed By: #### CBC ####[facility] Jphahezidm[address] [place] [address]. Yuki Diaz MANUAL DIFF REQ NO Normal [facility] Comment on above: Performed By: #### CBC ####[facility] Vmyakljpgm8617 [place] [address]DrBebo Diaz MCH (RBC) [Entitic mass] 27.9 pg Normal 25.9-34.0 [facility] Comment on above: Performed By: #### CBC ####[facility] Zynnqqajbv2448 [place] [address]DrBebo Diaz MCHC (RBC) [Mass/Vol] 30.5 g/dL Normal 29.9-35.2 [facility] Comment on above: Performed By: #### CBC ####[facility] Kaaqskzagw7154[address] [place], [place] [address]DrBebo Diaz MCV (RBC) [Entitic vol] 91.4 fL Normal 80.0-94.0 [facility] Comment on above: Performed By: #### CBC ####[facility] Lkthounlet4240[address] [place], [place] [address]DrBebo Diaz MONO # 2.1 103/ul Critically high 0.3-0.8 [facility] Comment on above: Performed By: #### CBC ####[facility] Gbofayieii6177[address] [place], [place] [address]DrBebo Diaz Monocytes/100 WBC (Bld) 16.0 % Critically high 1.7-12.0 [facility] Comment on above: Performed By: #### CBC ####[facility] Mhhykksyav300[address] [place], [place] [address]DrBebo Diaz NEUT # 10.1 103/ul Critically high 1.4-6.5 [facility] Comment on above: Performed By: #### CBC ####[facility] Primsgldns1164[address] [place], [place] [address]DrBebo Diaz Neutrophils/100 WBC (Bld) 75.2 % Critically high 43.0-75.0 [facility] Comment on above: Performed By: #### CBC ####[facility] Gyewhsikyf5677[address] [place], [place] [address]DrBebo Diaz Platelet mean volume (Bld) [Entitic vol] 10.3 fL Normal 9.5-13.5 [facility] Comment on above: Performed By: #### CBC ####[facility] ital Dtlfesfvbd0911 [place] [address]Dr. Yuki Diaz PLT 255 103/ul Normal 150-450 [facility] Comment on above: Performed By: #### CBC ####[facility] ital Xrtisstscn7491 [place] [address]DrBebo Yuki Diaz RBC 3.26 106/ul Critically low 4.70-6.10 [facility] Comment on above: Performed By: #### CBC ####[facility] Hswcokxgsu9382 [place] [address]Dr. Yuki Diaz WBC 13.4 103/ul Critically high 4.0-11.0 [facility] Comment on above: Performed By: #### CBC ####[facility] Ottbzkctve99[address] [place], [place] [address]DrBebo Yuki Diaz CULTURE BLOODon 10-23-2022 Microscopic examination of blood, culture Culture Observations: NO GROWTH AT 5 DAYS. Normal [facility] Comment on above: Performed By: #### BLDCX1 ####[facility] Yulqwsblxv34[address] [place], [place] [address]DrBebo Yuki Diaz Performed By: #### B LDCX2 ####[facility] Iagdsreqjn527[address] [place], [place] [address]DrBebo Yuki Diaz CULTURE URINEon 10-23-2022 CULTURE URINE Culture Observations : NO GROWTH. Normal [facility] Comment on above: Performed By: #### URCX ####[facility] Wkkvtthafw[address] [place], [place] [address]DrBebo Yuki Diaz Covid-19 PCR ([facility])on 10-05 SARS-CoV-2 (COVID-19) RNA JARVIS+probe Ql (Unsp spec) Not detected Normal NOT DETECTED [facility] Comment on above: Result Comment: [...] for this test is supported by the [place] [employer] and [employer] Service's declaration that [...] be used). Performed By: #### C SYMONE ####[facility] Fusutifjyg20[address] [place], [place] [address]Dr. Yuki Diaz ER URINE PROFILEon 3 Bilirubin Ql (U) Negative Normal NEGATIVE [facility] Comment on above: Performed By: #### MARCELLO CAZARES ####[facility] Kzmzbqlnkd2132[address] [place], [place] [address]Dr. Yuki Diaz Clarity (U) CLEAR Normal CLEAR [facility] Comment on above: Performed By: #### MARCELLO CAZARES ####[facility] Wnngsqqgev4472[address] [place], [place] [address]Dr. Yuki Diaz Color (U) YELLOW Normal YELLOW [facility] Comment on above: Performed By: #### MARCELLO CAZARES ####[facility] Usaguwbqhl0016[address] [place], [place] [address]Dr. Yuki GTZD A micrscopic examina tion will be performed if indicated. Normal [facility] Comment on above: Performed By: #### MARCELLO CAZARES ####[facility] Xdkcpdztzs0[address] [place], [place] [address]Dr. Yuki Diaz Glucose Ql (U) Negative Normal NEGATIVE [facility] Comment on above: Performed By: #### HAKAN CAZARESRO ####[facility] Laplfwdgph85[address] [place], [place] [address]Dr. Yuki Diaz Hemoglobin Ql (U) SMALL Abnormal NEGATIVE [facility] Comment on above: Performed By: #### SAGE UMICRO ####[facility] Jimsvsvcbi8393 [place] [address]Dr. Yuki Diaz Ketones Ql (U) Negative Normal NEGATIVE [facility] Comment on above: Performed By: #### SAGE UMICRO ####[facility] Khmhqtupzq4861 [place] [address]Dr. Yuki Diaz LEUKOCYTES Negative Normal NEGATIVE [facility] Comment on above: Performed By: #### SAGE UMICRO ####[facility] Hzqvvfifyu13[address] [place] [address]Dr. Yuki Diaz Nitrite Ql (U) Negative Normal NEGATIVE [facility] Comment on above: Performed By: #### SAGE UMICRO ####[facility] Rxiqnubuen[address] [place], [place] [address]Dr. Yuki Diaz pH (U) 7.0 [pH] Normal 5-9 [facility] Comment on above: Performed By: #### SAGE UMICRO ####[facility] Cpijxdavfb9[address] [place], [place] [address]Dr. Yuki Diaz Protein (U) [Mass/Vol] 30 mg/dL Abnormal NEGATIVE/ TRACE [facility] Comment on above: Performed By: #### SAGE UMICRO ####[facility] Xfeywphgci[address] [place], [place] [address]Dr. Yuki Diaz SPEC GRAVITY 1.010 Normal 1.005-<=1. 025 [facility] Comment on above: Performed By: #### SAGE UMICRO ####[facility] Zescilaxpy[address] [place] [address]Dr. Yuki Diaz UR MICRO IND INDICATED Normal [facility] Comment on above: Performed By: #### SAGE UMICRO ####[facility] Jqovuvatwm[address]32 [place] [address]Dr. Yuki Diaz Urobilinogen Qn (U) 1.0 {Chidi'U}/dL Normal 0.2 - 1.0 [facility] Comment on above: Performed By: #### ERUR, UMKETANRO ####[facility] Dhsaeydiwt5[address] [place], [place] [address]Dr. Yuki Diaz INFLUENZA A AND B AGon 10-23 INFLUANEGH SEE BELOW Normal [facility] Comment on above: Result Comment: Negative for Flu A prote in angiten. Infection due to Flu A cannot be ruled out. Flu A angiten in the sample may be below the detection limit of the test. Performed By: #### I NFLUAB ####[facility] Bolxfpddzd05[address] [place], [place] [address]Dr. Yuki Diaz INFLUBNEGH SEE BELOW Normal [facility] Comment on above: Result Comment: Negative for Flu B prote in antigen. Infection due to Flu B cannot be ruled out. Flu B antigen in the sample may be below the detection limit of the test. Performed By: #### I NFLUAB ####[facility] Ttrcnxooyt[address] [place], [place] [address]Dr. Yuki [facility] INFLUENZA A AG Negative Normal NEGATIVE SEE COMMENT [facility] Comment on above: Performed By: #### INFLUAB ####[facility] Wntzgckxqg6578[address] [place], [place] [address]Dr. Yuki [facility] INFLUENZA B AG Negative Normal NEGATIVE SEE COMMENT [facility] Comment on above: Performed By: #### INFLUAB ####[facility] Ohwphopzfz[address] [place], [place] [address]Dr. Yuki Diaz LACTATE/LACTIC ACIDon 2022 Lactate [Moles/Vol] 1.3 mmol/L Normal 0.4-2.0 [facility] Comment on above: Performed By: #### LACT ####[facility] Btzkembgeo99[address] [place], [place] [address]Dr. Yuki Diaz Lactate [Moles/Vol] 1.6 mmol/L Normal 0.4-2.0 [facility] Comment on above: Performed By: #### LACT ####[facility] Csuntvsjun[address] [place], [place] [address]Dr. Yuki [facility] Lactate [Moles/Vol] 1.5 mmol/L Normal 0.4-2.0 [facility] Comment on above: Performed By: #### LACT ####[facility] Pzetujoexf[address] [place] [address]Dr. Yuki Diaz POINT OF CARE GLUCOSEon 10-05 Glucose [Mass/Vol] 127 mg/dL Critically high 74-106 [facility] Comment on above: Performed By: #### POCGLUC ####[facility] Epkrueajuc0613 [place] [address]Dr. Yuki Diaz Glucose [Mass/Vol] 145 mg/dL Critically high 74-106 [facility] Comment on above: Performed By: #### POCGLUC ####[facility] Jiyqdibilo9542 [place] [address]Dr. Yuki Diaz PROF 14(COMP METB)on 023 Albumin [Mass/Vol] 3.4 g/dL Normal 3.4-5.0 [facility] Comment on above: Performed By: #### CMP ####[facility] Acrzkdlxiy8945 [place] [address]Dr. Yuki Diaz Albumin/Globulin [Mass ratio] 0.8 {ratio} Normal [facility] Comment on above: Performed By: #### CMP ####[facility] Wyvaonkwwn9681 [place] [address]Dr. Yuki Diaz ALP [Catalytic activity/Vol] 100 U/L Normal 46-116 [facility] Comment on above: Performed By: #### CMP ####[facility] Wbhxlhnlor3436 [place] [address]Dr. Yuki Diaz ALT [Catalytic activity/Vol] 15 U/L Critically low 16-63 [facility] Comment on above: Performed By: #### CMP ####[facility] Dwsildfodt6379 [place] [address]Dr. Yuki Diaz Anion gap [Moles/Vol] 14.2 mmol/L Normal [facility] Comment on above: Performed By: #### CMP ####[facility] Nnthvhkvyp6071 [place] [address]Dr. Yuki Diaz AST [Catalytic activity/Vol] 12 U/L Critically low 15-37 [facility] Comment on above: Performed By: #### CMP ####[facility] Tubbulqbwe8556 [place] [address]Dr. Yuki Diaz Bilirubin [Mass/Vol] 0.8 mg/dL Normal 0.2-1.0 [facility] Comment on above: Performed By: #### CMP ####[facility] ital Ybmzgjgmvn4316 [place] [address]Dr. Yuki Diaz Calcium [Mass/Vol] 9.0 mg/dL Normal 8.5-10.1 [facility] Comment on above: Performed By: #### CMP ####[facility] ital Knmsjgkwxg1683 [place] [address]Dr. Yuki Diaz Chloride [Moles/Vol] 101 mmol/L Normal 98-107 [facility] Comment on above: Performed By: #### CMP ####[facility] Asuwlwhzed6867 [place] [address]Dr. Yuki Diaz CO2 [Moles/Vol] 30.3 mmol/L Normal 21.0-32.0 [facility] Comment on above: Performed By: #### CMP ####[facility] ital Atuqeqidfc8423 [place] [address]Dr. Yuki Diaz Creatinine [Mass/Vol] 2.86 mg/dL Critically high 0.70-1.30 [facility] Comment on above: Performed By: #### CMP ####[facility] Kdcrtjdupm1511 [place] [address]Dr. Yuki Joe EGFR-AF DJIBOUTIAN 26 mL/min/1.73m2 Critically low >=60 [facility] Comment on above: Performed By: #### CMP ####[facility] Nqpgzgbxum8595 [place] [address]Dr. Yuki Joe EGFR-NON AF DJIBOUTIAN 21 mL/min/1.73m2 Critically low >=60 [facility] Comment on above: Performed By: #### CMP ####[facility] Ewuvwfahfz0172 [place] [address]Dr. Yuki Joe Globulin (S) [Mass/Vol] 4.1 g/dL Normal [facility] Comment on above: Performed By: #### CMP ####[facility] ital Vkvbbvrvqu3172 [place] [address]Dr. Yuki Diaz Glucose [Mass/Vol] 153 mg/dL Critically high 74-106 [facility] Comment on above: Performed By: #### CMP ####[facility] ital Gbzjzlutyd0032 [place] [address]Dr. Yuki Diaz Potassium [Moles/Vol] 4.5 mmol/L Normal 3.5-5.1 [facility] Comment on above: Performed By: #### CMP ####[facility] ital Qtedbcqenc7113 [place] [address]Dr. Yuki Diaz Protein [Mass/Vol] 7.5 g/dL Normal 6.4-8.2 [facility] Comment on above: Performed By: #### CMP ####[facility] ital Koocnvyhlk0193 [place] [address]Dr. Yuki Diaz Sodium [Moles/Vol] 141 mmol/L Normal 136-145 [facility] Comment on above: Performed By: #### CMP ####[facility] ital Qygueuorsx7258 [place] [address]Dr. Yuki Diaz Urea nitrogen [Mass/Vol] 40.0 mg/dL Critically high 7.0-18.0 [facility] Comment on above: Performed By: #### CMP ####[facility] ital Nqlotzyifs3795 [place] [address]Dr. Yuki Diaz Urea nitrogen/Creatin ine [Mass ratio] 14.0 mg/mg Normal [facility] Comment on above: Performed By: #### CMP ####[facility] ital Ovuusnordk3580 [place] [id number]. Yuki Joe URINE MICROSCOPIC ONLYon BACTERIA NONE SEEN Normal NONE SEEN [facility] Comment on above: Performed By: #### MARCELLO CAZARES ####[facility] Inkbbfrpak7503 [place] [id number]. Yuki Joe Bacteria identified Cx Nom (U) CX ALREADY ORDERED Normal [facility] Comment on above: Performed By: #### SAGE UMICRO ####[facility] Frdtdupzuq2844 [place] [address]Dr. Yuki Diaz CAST NONE SEEN Normal NONE SEEN [facility] Comment on above: Performed By: #### SAGE UMICRO ####[facility] Qyzngqmycj4177 [place] [address]Dr. Yuki Diaz Crystals LM Nom (Urine sed) NONE SEEN Normal NONE SEEN [facility] Comment on above: Performed By: #### SAGE UMICRO ####[facility] Jeenqkmgxh7088 [place] [address]Dr. Yuki Diaz Epithelial cells LM Ql (Urine sed) NONE SEEN Normal NONE SEEN /RARE [facility] Comment on above: Performed By: #### SAGE UMICRO ####[facility] Hyziseicsw3554 [place] [address]Dr. Yuki Diaz MUCOUS NONE SEEN Normal NONE SEEN [facility] Comment on above: Performed By: #### SAGE UMICRO ####[facility] Islcnvjpzk2[address] [place], [place] [address]Dr. Monsealyssa Diaz RBC 0-2 Normal 0-2 [facility] Comment on above: Performed By: #### SAGE UMICRO ####[facility] Yymfbckguh[address] [place], [place] [address]Dr. Yuki Diaz WBC NONE SEEN Normal NONE SEEN [facility] Comment on above: Performed By: #### SAGE UMICRO ####[facility] Wwvwmdfcju9027[address] [place], [place] [address]Dr. Yuki Diaz XR KNEE RT 4V or >on 023 XR KNEE RT 4V or > Normal [facility] XR HAND LT MIN 3Von 10-23-19 23 XR HAND LT MIN 3V Normal [facility] BNPon 10-13-2022 Natriuretic peptide B (Bld) [Mass/Vol] 1093.0 pg/mL Normal <=1,800.0 [facility] Comment on above: Performed By: #### BMP, BNP ####[facility] Fxezvkeydb7954 [place] [address]Dr. Yuki Diaz PROF CHEM 8 (BAS METB)on Anion gap [Moles/Vol] 9.7 mmol/L Normal [facility] Comment on above: Performed By: #### BMP, BNP ####[facility] Gipkfjyxnp7715 [place] [address]Dr. Yuki Diaz Calcium [Mass/Vol] 8.6 mg/dL Normal 8.5-10.1 [facility] Comment on above: Performed By: #### BMP, BNP ####[facility] Wuxuntltbi6[address] [place], [place] [address]Dr. Yuki Diaz Chloride [Moles/Vol] 105 mmol/L Normal 98-107 [facility] Comment on above: Performed By: #### BMP, BNP ####[facility] Sasyjnidnb83[address] [place], [place] [address]Dr. Yuki Diaz CO2 [Moles/Vol] 31.1 mmol/L Normal 21.0-32.0 [facility] Comment on above: Performed By: #### BMP, BNP ####[facility] Mvdbmcllok86[address] [place], [place] [address]Dr. Yuki Diaz Creatinine [Mass/Vol] 2.46 mg/dL Critically high 0.70-1.30 [facility] Comment on above: Performed By: #### BMP, BNP ####[facility] Atonqhifiw64[address] [place], [place] [address]Dr. Yuki Diaz EGFR-AF DJIBOUTIAN 31 mL/min/1.73m2 Critically low >=60 [facility] Comment on above: Performed By: #### BMP, BNP ####[facility] Mggguhmznr[address] [place], [place] [address]Dr. Yuki Diaz EGFR-NON AF DJIBOUTIAN 25 mL/min/1.73m2 Critically low >=60 [facility] Comment on above: Performed By: #### BMP, BNP ####[facility] Ldcrgsnrda32[address] [place], [place] [address]Dr. Yuki Diaz Glucose [Mass/Vol] 155 mg/dL Critically high 74-106 [facility] Comment on above: Performed By: #### BMP, BNP ####[facility] Wlpikyjhsa0110 [place], [place] [address]Gn. Yuki Diaz Potassium [Moles/Vol] 3.8 mmol/L Normal 3.5-5.1 [facility] Comment on above: Performed By: #### BMP, BNP ####[facility] Hvmyszjbrk2819 [place], [place] [address]Oe. Yuki Diaz Sodium [Moles/Vol] 142 mmol/L Normal 136-145 [facility] Comment on above: Performed By: #### BMP, BNP ####[facility] Azwipxrgnt9489 [place], [place] [address]Ip. Yuki Diaz Urea nitrogen [Mass/Vol] 37.0 mg/dL Critically high 7.0-18.0 [facility] Comment on above: Performed By: #### BMP, BNP ####[facility] Eivjuglmvh1029 [place] [id number]. Yuki Diaz Urea nitrogen/Creatin ine [Mass ratio] 15.0 mg/mg Normal [facility] Comment on above: Performed By: #### BMP, BNP ####[facility] Lfwetdnxbq0541 [place], [place] [address]Lj. Yuki Diaz Provider Letteron 09-20-2022 Provider Letter (Inserted Image. Alice ble to display) September 20, 20[address] [place] [phone] SHENG BAUER 1940 Dear Sheng , You [...] appreciate your understanding. Sincerely, [facility] [address], [place] [address] [facility] BNPon 09-19-2022 Natriuretic peptide B (Bld) [Mass/Vol] 1200.0 pg/mL Normal <=1,800.0 [facility] Comment on above: Performed By: #### CMP, BNP ####[facility] Pmixbeyjue1207 [place] [address]Dr. Yuki Diaz PROF 14(COMP METB)on 023 Albumin [Mass/Vol] 3.2 g/dL Critically low 3.4-5.0 [facility] Comment on above: Performed By: #### CMP, BNP ####[facility] Efocfhyknq2176 [place] [address]Dr. Yuki Diaz Albumin/Globulin [Mass ratio] 0.8 {ratio} Normal [facility] Comment on above: Performed By: #### CMP, BNP ####[facility] Tbwppfvhyc[address] [place], [place] [address]Dr. Yuki Diaz ALP [Catalytic activity/Vol] 93 U/L Normal 46-116 [facility] Comment on above: Performed By: #### CMP, BNP ####[facility] Zqruztqytg[address] [place], [place] [address]Dr. Yuki Diaz ALT [Catalytic activity/Vol] 16 U/L Normal 16-63 [facility] Comment on above: Performed By: #### CMP, BNP ####[facility] Njngindern8[address] [place], [place] [address]Dr. Yuki Diaz Anion gap [Moles/Vol] 13.6 mmol/L Normal [facility] Comment on above: Performed By: #### CMP, BNP ####[facility] Yzvgtnlfcn3842[address] [place], [place] [address]Dr. Yuki Diaz AST [Catalytic activity/Vol] 13 U/L Critically low 15-37 [facility] Comment on above: Performed By: #### CMP, BNP ####[facility] Ocdedbsjxc932[address] [place], [place] [address]Dr. Yuki Diaz Bilirubin [Mass/Vol] 0.5 mg/dL Normal 0.2-1.0 [facility] Comment on above: Performed By: #### CMP, BNP ####[facility] Wdsbjqgtnm4288 [place] [address]Dr. Yuki Diaz Calcium [Mass/Vol] 8.9 mg/dL Normal 8.5-10.1 [facility] Comment on above: Performed By: #### CMP, BNP ####[facility] Qemezicjyb6902 [place] [address]Dr. Yuki Diaz Chloride [Moles/Vol] 107 mmol/L Normal 98-107 [facility] Comment on above: Performed By: #### CMP, BNP ####[facility] Sfwtotoqip6682 [place] [address]Dr. Yuki Diaz CO2 [Moles/Vol] 28.7 mmol/L Normal 21.0-32.0 [facility] Comment on above: Performed By: #### CMP, BNP ####[facility] Pesoazgwtg0426[address] [place], [place] [address]Dr. Yuki Diaz Creatinine [Mass/Vol] 2.61 mg/dL Critically high 0.70-1.30 [facility] Comment on above: Performed By: #### CMP, BNP ####[facility] Dbrlzuoled[address] [place], [place] [address]Dr. Yuki Diaz EGFR-AF DJIBOUTIAN 29 mL/min/1.73m2 Critically low >=60 [facility] Comment on above: Performed By: #### CMP, BNP ####[facility] Evyvgaogum4[address] [place], [place] [address]Dr. Yuki Diaz EGFR-NON AF DJIBOUTIAN 24 mL/min/1.73m2 Critically low >=60 [facility] Comment on above: Performed By: #### CMP, BNP ####[facility] Zwuqguliyw[address] [place], [place] [address]Dr. Yuki Diaz Globulin (S) [Mass/Vol] 4.0 g/dL Normal [facility] Comment on above: Performed By: #### CMP, BNP ####[facility] Jwghntzsbw55[address] [place], [place] [address]Dr. Yuik Jeo Glucose [Mass/Vol] 119 mg/dL Critically high 74-106 [facility] Comment on above: Performed By: #### CMP, BNP ####[facility] Sappmcyzcl6681 [place] [address]Dr. Ykui Diaz Potassium [Moles/Vol] 4.3 mmol/L Normal 3.5-5.1 [facility] Comment on above: Performed By: #### CMP, BNP ####[facility] Amrctvgago3936 [place] [address]Dr. Yuki Diaz Protein [Mass/Vol] 7.2 g/dL Normal 6.4-8.2 [facility] Comment on above: Performed By: #### CMP, BNP ####[facility] Aucmnknmgf1830 [place] [address]Dr. Yuki Diaz Sodium [Moles/Vol] 145 mmol/L Normal 136-145 [facility] Comment on above: Performed By: #### CMP, BNP ####[facility] Yloowbnlrf0580 [place] [address]Dr. Yuki Diaz Urea nitrogen [Mass/Vol] 42.0 mg/dL Critically high 7.0-18.0 [facility] Comment on above: Performed By: #### CMP, BNP ####[facility] Nzeftgfihh6188 [place] [address]Dr. Yuki Diaz Urea nitrogen/Creatin ine [Mass ratio] 16.1 mg/mg Normal [facility] Comment on above: Performed By: #### CMP, BNP ####[facility] Rzinnbabzl54[address] [place], [place] [address]Dr. Yuki Diaz Office Visiton 09-12-2022 Follow-up visit [id number] Nohelia Bauer 1940 M Date Provider Department Center 09/12/2022 OREN PEDRO [facility] Family History Problem Relation Age of Onset Coronary artery disease Mother Family Status - Relation Status Age at Mother Level of Service:66827 [place] OFFICE/OUTPATIENT ESTABLISHED LOW MDM 20-29 MIN Reason for Visit and Comments: Congestive Heart Failure [127] Coronary Artery Disease [187] Hypertension [386360] Normal [facility] BNPon 09-02-2022 Natriuretic peptide B (Bld) [Mass/Vol] 1506.0 pg/mL Normal <=1,800.0 [facility] Comment on above: Performed By: #### CMP, BNP ####[facility] Svoeziyvfv3690 [place] [address]Dr. Yuki Diaz PROF 14(COMP METB)on 023 Albumin [Mass/Vol] 3.0 g/dL Critically low 3.4-5.0 [facility] Comment on above: Performed By: #### CMP, BNP ####[facility] Rpndyvdwsq224[address] [place], [place] [address]Dr. Yuki Diaz Albumin/Globulin [Mass ratio] 0.8 {ratio} Normal [facility] Comment on above: Performed By: #### CMP, BNP ####[facility] Zwlnwkvokp[address] [place], [place] [address]Dr. Yuki Diaz ALP [Catalytic activity/Vol] 89 U/L Normal 46-116 [facility] Comment on above: Performed By: #### CMP, BNP ####[facility] Dnbiyoiszf7644[address] [place], [place] [address]Dr. Yuki Diaz ALT [Catalytic activity/Vol] 17 U/L Normal 16-63 [facility] Comment on above: Performed By: #### CMP, BNP ####[facility] Ndpqdcpnyh27[address] [place], [place] [address]Dr. Yuki Diaz Anion gap [Moles/Vol] 12.2 mmol/L Normal [facility] Comment on above: Performed By: #### CMP, BNP ####[facility] Xnknwixicq4157[address] [place], [place] [address]Dr. Yuki Diaz AST [Catalytic activity/Vol] 13 U/L Critically low 15-37 [facility] Comment on above: Performed By: #### CMP, BNP ####[facility] Egeolonpso1304[address] [place], [place] [address]Dr. Yuki Diaz Bilirubin [Mass/Vol] 0.4 mg/dL Normal 0.2-1.0 [facility] Comment on above: Performed By: #### CMP, BNP ####[facility] Xtqqpirwcd2[address] [place], [place] [address]Dr. Yuki Diaz Calcium [Mass/Vol] 8.8 mg/dL Normal 8.5-10.1 [facility] Comment on above: Performed By: #### CMP, BNP ####[facility] Ekvmcqfnfn6487[address] [place], [place] [address]Dr. Yuki Diaz Chloride [Moles/Vol] 104 mmol/L Normal 98-107 [facility] Comment on above: Performed By: #### CMP, BNP ####[facility] Tfzzgeurnc487[address] [place], [place] [address]Dr. Yuki Diaz CO2 [Moles/Vol] 31.4 mmol/L Normal 21.0-32.0 [facility] Comment on above: Performed By: #### CMP, BNP ####[facility] Wlazgeezfj53[address] [place], [place] [address]Dr. Yuki Diaz Creatinine [Mass/Vol] 2.76 mg/dL Critically high 0.70-1.30 [facility] Comment on above: Performed By: #### CMP, BNP ####[facility] Sbktuiivgz8020[address] [place], [place] [address]Dr. Yuki Diaz EGFR-AF DJIBOUTIAN 27 mL/min/1.73m2 Critically low >=60 [facility] Comment on above: Performed By: #### CMP, BNP ####[facility] Axstrknbtz488[address] [place], [place] [address]Dr. Yuki Diaz EGFR-NON AF DJIBOUTIAN 22 mL/min/1.73m2 Critically low >=60 [facility] Comment on above: Performed By: #### CMP, BNP ####[facility] Bikldztuaj[address] [place], [place] [address]Dr. Yuki Diaz Globulin (S) [Mass/Vol] 3.8 g/dL Normal [facility] Comment on above: Performed By: #### CMP, BNP ####[facility] Yibtefqkau2082[address] [place], [place] [address]Dr. Yuki Diaz Glucose [Mass/Vol] 200 mg/dL Critically high 74-106 [facility] Comment on above: Performed By: #### CMP, BNP ####[facility] Rapvuffwam7708 [place] [address]Dr. Yuki Diaz Potassium [Moles/Vol] 4.6 mmol/L Normal 3.5-5.1 [facility] Comment on above: Performed By: #### CMP, BNP ####[facility] Algvfogqet102[address] [place], [place] [address]Dr. Yuki Diaz Protein [Mass/Vol] 6.8 g/dL Normal 6.4-8.2 [facility] Comment on above: Performed By: #### CMP, BNP ####[facility] Duwqtyihhz02[address] [place], [place] [address]Dr. Monsealyssa Diaz Sodium [Moles/Vol] 143 mmol/L Normal 136-145 [facility] Comment on above: Performed By: #### CMP, BNP ####[facility] Tpephhtnyf12[address] [place], [place] [address]Dr. Yuki Diaz Urea nitrogen [Mass/Vol] 44.0 mg/dL Critically high 7.0-18.0 [facility] Comment on above: Performed By: #### CMP, BNP ####[facility] Cwdlqjpgad[address] [place], [place] [address]Dr. Yuki Diaz Urea nitrogen/Creatin ine [Mass ratio] 15.9 mg/mg Normal [facility] Comment on above: Performed By: #### CMP, BNP ####[facility] Detpitihfl457[address] [place], [place] [address]Dr. Yuki Diaz ECHOCARDIO M/2D COMPLETEon 1 09-20-2021 ECHOCARDIO M/2D COMPLETE Normal [facility] Lab Reportson 06-15-2022 Lab Reports [id number]:[address] [facility] PROF 14(COMP METB)on 022 Albumin [Mass/Vol] 3.0 g/dL Critically low 3.4-5.0 [facility] Comment on above: Performed By: #### CMP ####[facility] Mpkzeyzxab45[address] [place], [place] [address]Dr. Yuki Diaz Albumin/Globulin [Mass ratio] 0.9 {ratio} Normal [facility] Comment on above: Performed By: #### CMP ####[facility] Bdsjfiimag2979 [place] [address]Dr. Yuki Diaz ALP [Catalytic activity/Vol] 73 U/L Normal 46-116 [facility] Comment on above: Performed By: #### CMP ####[facility] Nhmtwxyuxf1286 [place] [address]Dr. Yuki Diaz ALT [Catalytic activity/Vol] 21 U/L Normal 16-63 [facility] Comment on above: Performed By: #### CMP ####[facility] Meexyihmql4959 [place] [address]Dr. Yuki Diaz Anion gap [Moles/Vol] 8.5 mmol/L Normal [facility] Comment on above: Performed By: #### CMP ####[facility] Oocprflczu0535 [place] [address]Dr. Yuki Diaz AST [Catalytic activity/Vol] 11 U/L Critically low 15-37 [facility] Comment on above: Performed By: #### CMP ####[facility] Ggzmgknqrt2164 [place] [address]Dr. Yuki Diaz Bilirubin [Mass/Vol] 0.6 mg/dL Normal 0.2-1.0 [facility] Comment on above: Performed By: #### CMP ####[facility] Azxztnlxvh6060 [place] [address]Dr. Yuki Diaz Calcium [Mass/Vol] 8.7 mg/dL Normal 8.5-10.1 [facility] Comment on above: Performed By: #### CMP ####[facility] Kotgqfvhsd7494 [place] [address]Dr. Yuki Diaz Chloride [Moles/Vol] 104 mmol/L Normal 98-107 [facility] Comment on above: Performed By: #### CMP ####[facility] Xmmamcptsp6021 [place] [address]Dr. Yuki Diaz CO2 [Moles/Vol] 32.7 mmol/L Critically high 21.0-32.0 [facility] Comment on above: Performed By: #### CMP ####[facility] Hexruktjse3257 [place] [id number]. Yuki Diaz Creatinine [Mass/Vol] 2.43 mg/dL Critically high 0.70-1.30 [facility] Comment on above: Performed By: #### CMP ####[facility] Frnftfppwr8367 [place] [address]Dr. Yuki Diaz EGFR-AF DJIBOUTIAN 31 mL/min/1.73m2 Critically low >=60 [facility] Comment on above: Performed By: #### CMP ####[facility] Oifqcderaq7900 [place] [address]Dr. Yuki Diaz EGFR-NON AF DJIBOUTIAN 26 mL/min/1.73m2 Critically low >=60 [facility] Comment on above: Performed By: #### CMP ####[facility] Idplthqnan4375 [place] [address]Dr. Yuki Diaz Globulin (S) [Mass/Vol] 3.4 g/dL Normal [facility] Comment on above: Performed By: #### CMP ####[facility] Luvjifnvfx2461 [place] [address]Dr. Yuki Diaz Glucose [Mass/Vol] 155 mg/dL Critically high 74-106 [facility] Comment on above: Performed By: #### CMP ####[facility] ital Hlxibbaacw3660 [place] [address]Dr. Yuki Diaz Potassium [Moles/Vol] 4.2 mmol/L Normal 3.5-5.1 [facility] Comment on above: Performed By: #### CMP ####[facility] Zibfjrzrsd0969 [place] [address]Dr. Yuki Diaz Protein [Mass/Vol] 6.4 g/dL Normal 6.4-8.2 [facility] Comment on above: Performed By: #### CMP ####[facility] Tfxbbermum3606 [place] [address]Dr. Yuki Diaz Sodium [Moles/Vol] 141 mmol/L Normal 136-145 [facility] Comment on above: Performed By: #### CMP ####[facility] ital Ytgrrqkjlj3655 [place] [address]Dr. Yuki Diaz Urea nitrogen [Mass/Vol] 47.0 mg/dL Critically high 7.0-18.0 [facility] Comment on above: Performed By: #### CMP ####[facility] ital Zisrjbuvqs9286 [place] [address]Dr. Yuki Diaz Urea nitrogen/Creatin ine [Mass ratio] 19.3 mg/mg Normal [facility] Comment on above: Performed By: #### CMP ####[facility] ital Gzgvtpmhok2016 [place] [address]Dr. Yuki Diaz PROF 14(COMP METB)on 022 Albumin [Mass/Vol] 2.9 g/dL Critically low 3.4-5.0 [facility] Comment on above: Performed By: #### CMP ####[facility] ital Wanqolwbdb6530 [place] [address]Dr. Yuki Diaz Albumin/Globulin [Mass ratio] 0.8 {ratio} Normal [facility] Comment on above: Performed By: #### CMP ####[facility] ital Nrwcqwsiip5731 [place] [address]Dr. Yuki Diaz ALP [Catalytic activity/Vol] 86 U/L Normal 46-116 [facility] Comment on above: Performed By: #### CMP ####[facility] ital Qrvqkrzjxy5414 [place] [address]Dr. Yuki Diaz ALT [Catalytic activity/Vol] 27 U/L Normal 16-63 [facility] Comment on above: Performed By: #### CMP ####[facility] Qnfzxljznr8871 [place] [address]Dr. Yuki Diaz Anion gap [Moles/Vol] 11.5 mmol/L Normal [facility] Comment on above: Performed By: #### CMP ####[facility] Sunkscgbfm6257 [place] [address]Dr. Yuki Diaz AST [Catalytic activity/Vol] 10 U/L Critically low 15-37 [facility] Comment on above: Performed By: #### CMP ####[facility] ital Figpnfwmzq9013 [place] [address]Dr. Yuki Diaz Bilirubin [Mass/Vol] 0.5 mg/dL Normal 0.2-1.0 [facility] Comment on above: Performed By: #### CMP ####[facility] ital Wzobjhslie6002 [place] [address]Dr. Yuki Diaz Calcium [Mass/Vol] 8.6 mg/dL Normal 8.5-10.1 [facility] Comment on above: Performed By: #### CMP ####[facility] ital Nuiuhnkfhb8383 [place] [address]Dr. Yuki Diaz Chloride [Moles/Vol] 108 mmol/L Critically high 98-107 [facility] Comment on above: Performed By: #### CMP ####[facility] Wiiwylshhu0055 [place] [address]Dr. Yuki Diaz CO2 [Moles/Vol] 28.0 mmol/L Normal 21.0-32.0 [facility] Comment on above: Performed By: #### CMP ####[facility] Irzpypazxp9271 [place] [address]Dr. Yuki Diaz Creatinine [Mass/Vol] 2.58 mg/dL Critically high 0.70-1.30 [facility] Comment on above: Performed By: #### CMP ####[facility] Ljnduplera9493 [place] [address]Dr. Yuki Diaz EGFR-AF DJIBOUTIAN 29 mL/min/1.73m2 Critically low >=60 [facility] Comment on above: Performed By: #### CMP ####[facility] ital Hbxlruekrc9237 [place] [address]Dr. Yuki Diaz EGFR-NON AF DJIBOUTIAN 24 mL/min/1.73m2 Critically low >=60 [facility] Comment on above: Performed By: #### CMP ####[facility] Mothgfwiys3816 [place] [address]Dr. Yuki Diaz Globulin (S) [Mass/Vol] 3.5 g/dL Normal [facility] Comment on above: Performed By: #### CMP ####[facility] ital Mypgtbumrs1027 [place] [id number]. Yuki Diaz Glucose [Mass/Vol] 136 mg/dL Critically high 74-106 [facility] Comment on above: Performed By: #### CMP ####[facility] ital Kyetvzypaq9038 [place] [id number]. Yuki Diaz Potassium [Moles/Vol] 4.5 mmol/L Normal 3.5-5.1 [facility] Comment on above: Performed By: #### CMP ####[facility] ital Uqynbdzvzu2672 [place] [address]Dr. Yuki Diaz Protein [Mass/Vol] 6.4 g/dL Normal 6.4-8.2 [facility] Comment on above: Performed By: #### CMP ####[facility] Vcckexpqvi7238 [place] [address]Dr. Yuki Diaz Sodium [Moles/Vol] 143 mmol/L Normal 136-145 [facility] Comment on above: Performed By: #### CMP ####[facility] Mbkgmutpeg4036 [place] [address]Dr. Yuki Diaz Urea nitrogen [Mass/Vol] 48.0 mg/dL Critically high 7.0-18.0 [facility] Comment on above: Performed By: #### CMP ####[facility] Fryawpiypr8666 [place] [address]Dr. Yuki Diaz Urea nitrogen/Creatin ine [Mass ratio] 18.6 mg/mg Normal [facility] Comment on above: Performed By: #### CMP ####[facility] ital Ayzzniwgsp2881 [place] [address]Dr. Yuki Diaz PROF 14(COMP METB)on 022 Albumin [Mass/Vol] 3.2 g/dL Critically low 3.4-5.0 [facility] Comment on above: Performed By: #### CMP ####[facility] ital Bfasamxxrj8952 [place] [address]Dr. Yuki Diaz Albumin/Globulin [Mass ratio] 0.9 {ratio} Normal [facility] Comment on above: Performed By: #### CMP ####[facility] Hzeygasooj4764 [place] [address]Dr. Yuki Diaz ALP [Catalytic activity/Vol] 89 U/L Normal 46-116 [facility] Comment on above: Performed By: #### CMP ####[facility] Jmypfxbegs1269 [place] [address]Dr. Yuki Diaz ALT [Catalytic activity/Vol] 113 U/L Critically high 16-63 [facility] Comment on above: Performed By: #### CMP ####[facility] Jfpfevifvz3984 [place] [address]Dr. Yuki Diaz Anion gap [Moles/Vol] 10.8 mmol/L Normal [facility] Comment on above: Performed By: #### CMP ####[facility] Zqvoezswuk5201 [place] [address]Dr. Yuki Diaz AST [Catalytic activity/Vol] 32 U/L Normal 15-37 [facility] Comment on above: Performed By: #### CMP ####[facility] Dpdbavbbhu2223 [place] [address]Dr. Yuki Diaz Bilirubin [Mass/Vol] 0.7 mg/dL Normal 0.2-1.0 [facility] Comment on above: Performed By: #### CMP ####[facility] Umrxhfkfgc5828 [place] [address]Dr. Yuki Diaz Calcium [Mass/Vol] 8.8 mg/dL Normal 8.5-10.1 [facility] Comment on above: Performed By: #### CMP ####[facility] Qkbcntfrla8170 [place] [address]Dr. Yuki Diaz Chloride [Moles/Vol] 106 mmol/L Normal 98-107 [facility] Comment on above: Performed By: #### CMP ####[facility] Zcxsvytjek8484 [place] [address]Dr. Yuki Diaz CO2 [Moles/Vol] 30.4 mmol/L Normal 21.0-32.0 [facility] Comment on above: Performed By: #### CMP ####[facility] Tflezkszkj0838 [place] [address]Dr. Yuki Diaz Creatinine [Mass/Vol] 2.54 mg/dL Critically high 0.70-1.30 [facility] Comment on above: Performed By: #### CMP ####[facility] Coadyakhjl4137 [place] [address]Dr. Yuki Diaz EGFR-AF DJIBOUTIAN 30 mL/min/1.73m2 Critically low >=60 [facility] Comment on above: Performed By: #### CMP ####[facility] Qfmecwooav3832 [place] [address]Dr. Yuki Diaz EGFR-NON AF DJIBOUTIAN 25 mL/min/1.73m2 Critically low >=60 [facility] Comment on above: Performed By: #### CMP ####[facility] ital Yelfcgghbj2448 [place] [address]Dr. Yuki Diaz Globulin (S) [Mass/Vol] 3.4 g/dL Normal [facility] Comment on above: Performed By: #### CMP ####[facility] Xcffqhzkzh4561 [place] [address]Dr. Yuki Diaz Glucose [Mass/Vol] 114 mg/dL Critically high 74-106 [facility] Comment on above: Performed By: #### CMP ####[facility] Quahnfxlwp6363 [place] [address]Dr. Yuki Diaz Potassium [Moles/Vol] 4.2 mmol/L Normal 3.5-5.1 [facility] Comment on above: Performed By: #### CMP ####[facility] ital Koiuiclthj3595 [place] [address]Dr. Yuki Diaz Protein [Mass/Vol] 6.6 g/dL Normal 6.4-8.2 [facility] Comment on above: Performed By: #### CMP ####[facility] Tycmpyutpa2420 [place] [address]Dr. Yuki Diaz Sodium [Moles/Vol] 143 mmol/L Normal 136-145 [facility] Comment on above: Performed By: #### CMP ####[facility] ital Zhzdlckaia0704 [place] [address]Dr. Yuki Diaz Urea nitrogen [Mass/Vol] 65.0 mg/dL Critically high 7.0-18.0 [facility] Comment on above: Performed By: #### CMP ####[facility] ital Idrnksulox9562 [place] [address]Dr. Yuki Diaz Urea nitrogen/Creatin ine [Mass ratio] 25.6 mg/mg Normal [facility] Comment on above: Performed By: #### CMP ####[facility] ital Gphibinezh0463 [place] [address]Dr. Yuki Diaz XR HIP RT INJon 04-01-2022 XR HIP RT INJ Normal [facility] PROF 14(COMP METB)on 022 Albumin [Mass/Vol] 3.6 g/dL Normal 3.4-5.0 [facility] Comment on above: Performed By: #### CMP ####[facility] ital Wqluyaetws3179 [place] [address]Dr. Yuki Diaz Albumin/Globulin [Mass ratio] 0.9 {ratio} Normal [facility] Comment on above: Performed By: #### CMP ####[facility] ital Radkmvgocl8790 [place] [address]Dr. Yuki Diaz ALP [Catalytic activity/Vol] 91 U/L Normal 46-116 [facility] Comment on above: Performed By: #### CMP ####[facility] Stzaqgbywy1972 [place] [address]Dr. Yuki Diaz ALT [Catalytic activity/Vol] 19 U/L Normal 16-63 [facility] Comment on above: Performed By: #### CMP ####[facility] ital Rtxshurjkg3038 [place] [address]Dr. Yuki Diaz Anion gap [Moles/Vol] 12.3 mmol/L Normal [facility] Comment on above: Performed By: #### CMP ####[facility] Biqomgnrqk9365 [place] [address]Dr. Yuki Diaz AST [Catalytic activity/Vol] 14 U/L Critically low 15-37 [facility] Comment on above: Performed By: #### CMP ####[facility] Lcgcmurqyi8741 [place] [address]Dr. Yuki Diaz Bilirubin [Mass/Vol] 0.7 mg/dL Normal 0.2-1.0 [facility] Comment on above: Performed By: #### CMP ####[facility] Jzqsqfpovt9327 [place] [address]Dr. Yuki Diaz Calcium [Mass/Vol] 8.9 mg/dL Normal 8.5-10.1 [facility] Comment on above: Performed By: #### CMP ####[facility] Xvmiijoyps3000 [place] [address]Dr. Yuki Diza Chloride [Moles/Vol] 102 mmol/L Normal 98-107 [facility] Comment on above: Performed By: #### CMP ####[facility] Yanlxqvply4100 [place] [address]Dr. Yuki Diaz CO2 [Moles/Vol] 30.4 mmol/L Normal 21.0-32.0 [facility] Comment on above: Performed By: #### CMP ####[facility] Yyqktdhddj4700 [place] [address]Dr. Yuki Diaz Creatinine [Mass/Vol] 2.13 mg/dL Critically high 0.70-1.30 [facility] Comment on above: Performed By: #### CMP ####[facility] Rejtcmivvs7760 [place] [address]Dr. Yuki Joe EGFR-AF DJIBOUTIAN 37 mL/min/1.73m2 Critically low >=60 [facility] Comment on above: Performed By: #### CMP ####[facility] Mjqynuwimb6564 [place] [address]Dr. Yuki Joe EGFR-NON AF DJIBOUTIAN 30 mL/min/1.73m2 Critically low >=60 [facility] Comment on above: Performed By: #### CMP ####[facility] Yxwlfynlok1549 [place] [address]Dr. Yuki Joe Globulin (S) [Mass/Vol] 3.9 g/dL Normal [facility] Comment on above: Performed By: #### CMP ####[facility] Yqdpfsbyio3269 [place] [address]Dr. Yuki Diaz Glucose [Mass/Vol] 146 mg/dL Critically high 74-106 [facility] Comment on above: Performed By: #### CMP ####[facility] Njsbqjeiaz0409 [place] [address]Dr. Yuki Diaz Potassium [Moles/Vol] 3.7 mmol/L Normal 3.5-5.1 [facility] Comment on above: Performed By: #### CMP ####[facility] ital Pfkahzghfj0720 [place] [address]Dr. Yuki Diaz Protein [Mass/Vol] 7.5 g/dL Normal 6.4-8.2 [facility] Comment on above: Performed By: #### CMP ####[facility] ital Evygwpuwtx1297 [place] [address]Dr. Yuki Diaz Sodium [Moles/Vol] 141 mmol/L Normal 136-145 [facility] Comment on above: Performed By: #### CMP ####[facility] ital Eijsvtjils6843 [place] [address]Dr. Yuki Diaz Urea nitrogen [Mass/Vol] 39.0 mg/dL Critically high 7.0-18.0 [facility] Comment on above: Performed By: #### CMP ####[facility] ital Igvestrtar0137 [place] [address]Dr. Yuki Diaz Urea nitrogen/Creatin ine [Mass ratio] 18.3 mg/mg Normal [facility] Comment on above: Performed By: #### CMP ####[facility] Gkmkkzxibx2050 [place] [address]DrBebo Diaz PROF 14(COMP METB)on 022 Albumin [Mass/Vol] 3.3 g/dL Critically low 3.4-5.0 [facility] Comment on above: Performed By: #### CMP ####[facility] Lhiqpscsja0313 [place] [address]Dr. Yuki Diaz Albumin/Globulin [Mass ratio] 0.9 {ratio} Normal [facility] Comment on above: Performed By: #### CMP ####[facility] Vmuyezyicj2036 [place] [address]Dr. Yuki Diaz ALP [Catalytic activity/Vol] 78 U/L Normal 46-116 [facility] Comment on above: Performed By: #### CMP ####[facility] Mbhlzeexou5206 [place] [address]Dr. Yuki Diaz ALT [Catalytic activity/Vol] 19 U/L Normal 16-63 [facility] Comment on above: Performed By: #### CMP ####[facility] Ubrageptpm5455 [place] [address]Dr. Yuki Diaz Anion gap [Moles/Vol] 12.3 mmol/L Normal [facility] Comment on above: Performed By: #### CMP ####[facility] ital Lgycvrnytt7269 [place] [address]Dr. Yuki Diaz AST [Catalytic activity/Vol] 13 U/L Critically low 15-37 [facility] Comment on above: Performed By: #### CMP ####[facility] ital Hnyvcrndzx7376 [place] [address]Dr. Yuki Diaz Bilirubin [Mass/Vol] 0.8 mg/dL Normal 0.2-1.0 [facility] Comment on above: Performed By: #### CMP ####[facility] Zgzpfgnhqe6432 [place] [address]Dr. Yuki Diaz Calcium [Mass/Vol] 8.8 mg/dL Normal 8.5-10.1 [facility] Comment on above: Performed By: #### CMP ####[facility] Aoneocgbqk1921 [place] [address]Dr. Yuki Diaz Chloride [Moles/Vol] 105 mmol/L Normal 98-107 [facility] Comment on above: Performed By: #### CMP ####[facility] Duwxcyvods0307 [place] [address]Dr. Yuki Diaz Creatinine [Mass/Vol] 2.44 mg/dL Critically high 0.70-1.30 [facility] Comment on above: Performed By: #### CMP ####[facility] Hjwihhlexo0345 [place] [address]Dr. Yuki Diaz EGFR-AF DJIBOUTIAN 31 mL/min/1.73m2 Critically low >=60 [facility] Comment on above: Performed By: #### CMP ####[facility] Ofqkfyrojz2883 [place] [address]Dr. Yuki Diaz EGFR-NON AF DJIBOUTIAN 26 mL/min/1.73m2 Critically low >=60 [facility] Comment on above: Performed By: #### CMP ####[facility] Iugrnllorl5048 [place] [address]Dr. Yuki Diaz Globulin (S) [Mass/Vol] 3.7 g/dL Normal [facility] Comment on above: Performed By: #### CMP ####[facility] Naxvtrnwxh9961 [place] [address]Dr. Yuki Joe Glucose [Mass/Vol] 196 mg/dL Critically high 74-106 [facility] Comment on above: Performed By: #### CMP ####[facility] Gdrtmvibfg6773 [place] [address]Dr. Yuki Joe Potassium [Moles/Vol] 4.6 mmol/L Normal 3.5-5.1 [facility] Comment on above: Performed By: #### CMP ####[facility] Slmzjcrmuy5778 [place] [address]Dr. Yuki Diaz Protein [Mass/Vol] 7.0 g/dL Normal 6.4-8.2 [facility] Comment on above: Performed By: #### CMP ####[facility] Brybjensrk7104 [place] [address]Dr. Yuki Diaz Sodium [Moles/Vol] 144 mmol/L Normal 136-145 [facility] Comment on above: Performed By: #### CMP ####[facility] Kciiluomzh7404 [place] [address]Dr. Yuki Diaz Urea nitrogen [Mass/Vol] 44.0 mg/dL Critically high 7.0-18.0 [facility] Comment on above: Performed By: #### CMP ####[facility] ital Vzflnurdsq0251 [place] [address]Dr. Yuki Diaz Urea nitrogen/Creatin ine [Mass ratio] 18.0 mg/mg Normal [facility] Comment on above: Performed By: #### CMP ####[facility] ital Nsiaxwkomr6800 [place] [address]Dr. Yuki Diaz PROF 14(COMP METB)on 022 Albumin [Mass/Vol] 3.2 g/dL Critically low 3.4-5.0 [facility] Comment on above: Performed By: #### CMP ####[facility] Vyghbcoexp9933 [place] [address]Dr. Yuki Diaz Albumin/Globulin [Mass ratio] 0.9 {ratio} Normal [facility] Comment on above: Performed By: #### CMP ####[facility] Paffjmggii7561 [place] [address]Dr. Yuki Diaz ALP [Catalytic activity/Vol] 75 U/L Normal 46-116 [facility] Comment on above: Performed By: #### CMP ####[facility] ital Kmlttfkgbr7670 [place] [address]Dr. Yuki Diaz ALT [Catalytic activity/Vol] 14 U/L Critically low 16-63 [facility] Comment on above: Performed By: #### CMP ####[facility] Tkpbliiwhx5712 [place] [address]Dr. Yuki Diaz Anion gap [Moles/Vol] 12.6 mmol/L Normal [facility] Comment on above: Performed By: #### CMP ####[facility] Uolsaufgzq9023 [place] [address]Dr. Yuki Diaz AST [Catalytic activity/Vol] 9 U/L Critically low 15-37 [facility] Comment on above: Performed By: #### CMP ####[facility] Pyttztulzz5483 [place] [address]Dr. Yuki Diaz Bilirubin [Mass/Vol] 0.7 mg/dL Normal 0.2-1.0 [facility] Comment on above: Performed By: #### CMP ####[facility] Incjmgtkrm8123 [place] [address]Dr. Yuki Diaz Calcium [Mass/Vol] 8.6 mg/dL Normal 8.5-10.1 [facility] Comment on above: Performed By: #### CMP ####[facility] Olxpwcvcfa6130 [place] [address]Dr. Yuki Diaz Chloride [Moles/Vol] 107 mmol/L Normal 98-107 [facility] Comment on above: Performed By: #### CMP ####[facility] Ltkpsgncqw5179 [place] [address]Dr. Yuki Diaz CO2 [Moles/Vol] 28.3 mmol/L Normal 21.0-32.0 [facility] Comment on above: Performed By: #### CMP ####[facility] Ccqvauwvto5227 [place] [address]Dr. Yuki Joe Creatinine [Mass/Vol] 2.52 mg/dL Critically high 0.70-1.30 [facility] Comment on above: Performed By: #### CMP ####[facility] Hfmfhnnoku6055 [place] [address]Dr. Yuki Diaz EGFR-AF DJIBOUTIAN 30 mL/min/1.73m2 Critically low >=60 [facility] Comment on above: Performed By: #### CMP ####[facility] Xsbmjxsnzw2421 [place] [address]Dr. Yuki Joe EGFR-NON AF DJIBOUTIAN 25 mL/min/1.73m2 Critically low >=60 [facility] Comment on above: Performed By: #### CMP ####[facility] Wyqwggxogs4362 [place] [address]Dr. Yuki Joe Globulin (S) [Mass/Vol] 3.7 g/dL Normal [facility] Comment on above: Performed By: #### CMP ####[facility] Pupsjcnahe3292 [place] [address]Dr. Yuki Diaz Glucose [Mass/Vol] 152 mg/dL Critically high 74-106 [facility] Comment on above: Performed By: #### CMP ####[facility] Kgoemwqupm7694 [place] [address]Dr. Yuki Diaz Potassium [Moles/Vol] 3.9 mmol/L Normal 3.5-5.1 [facility] Comment on above: Performed By: #### CMP ####[facility] Wyuusvpehk7942 [place] [id number]. Yuki Diaz Protein [Mass/Vol] 6.9 g/dL Normal 6.4-8.2 [facility] Comment on above: Performed By: #### CMP ####[facility] Ipqknszded3522 [place] [address]Dr. Yuki Diaz Sodium [Moles/Vol] 144 mmol/L Normal 136-145 [facility] Comment on above: Performed By: #### CMP ####[facility] Sfcsyjvdui4039 [place] [address]Dr. Yuki Diaz Urea nitrogen [Mass/Vol] 50.0 mg/dL Critically high 7.0-18.0 [facility] Comment on above: Performed By: #### CMP ####[facility] ital Hzqtiubust3421 [place] [address]Dr. Yuki Diaz Urea nitrogen/Creatin ine [Mass ratio] 19.8 mg/mg Normal [facility] Comment on above: Performed By: #### CMP ####[facility] Iabymxzpbf5655 [place] [address]Dr. Yuki Diaz PROF 14(COMP METB)on 022 Albumin [Mass/Vol] 3.1 g/dL Critically low 3.4-5.0 [facility] Comment on above: Performed By: #### CMP ####[facility] Aksxfwvsxz6662 [place] [address]Dr. Yuki Diaz Albumin/Globulin [Mass ratio] 0.7 {ratio} Normal [facility] Comment on above: Performed By: #### CMP ####[facility] Bmmztsvhmn3426 [place] [address]Dr. Yuki Diaz ALP [Catalytic activity/Vol] 101 U/L Normal 46-116 [facility] Comment on above: Performed By: #### CMP ####[facility] Vricokmcoc6896 [place] [address]Dr. Yuki Diaz ALT [Catalytic activity/Vol] 18 U/L Normal 16-63 [facility] Comment on above: Performed By: #### CMP ####[facility] Witimdhlbm9949 [place] [id number]. Yuki Diaz Anion gap [Moles/Vol] 11.9 mmol/L Normal [facility] Comment on above: Performed By: #### CMP ####[facility] Yxvxsmffcf8384 [place] [address]Dr. Yuki Diaz AST [Catalytic activity/Vol] 11 U/L Critically low 15-37 [facility] Comment on above: Performed By: #### CMP ####[facility] Lrgflunjsu0887 [place] [address]Dr. Yuki Diaz Bilirubin [Mass/Vol] 0.5 mg/dL Normal 0.2-1.0 [facility] Comment on above: Performed By: #### CMP ####[facility] Rktzopoote6184 [place] [address]Dr. Yuki Diaz Calcium [Mass/Vol] 9.0 mg/dL Normal 8.5-10.1 [facility] Comment on above: Performed By: #### CMP ####[facility] Damfcvannl0650 [place] [place] [address]Dr. Yuki Diaz Chloride [Moles/Vol] 103 mmol/L Normal 98-107 [facility] Comment on above: Performed By: #### CMP ####[facility] Qpxdgbvjix8901 [place] [id number]. Yuki Diaz CO2 [Moles/Vol] 29.8 mmol/L Normal 21.0-32.0 [facility] Comment on above: Performed By: #### CMP ####[facility] Mwmztcgpnh5027 [place] [address]Dr. Yuki Joe Creatinine [Mass/Vol] 3.03 mg/dL Critically high 0.70-1.30 [facility] Comment on above: Performed By: #### CMP ####[facility] Daiwpxeuqu7029 [place] [address]Dr. Yuki Diaz EGFR-AF DJIBOUTIAN 24 mL/min/1.73m2 Critically low >=60 [facility] Comment on above: Performed By: #### CMP ####[facility] Tzdmseezin6639 [place] [address]Dr. Yuki Diaz EGFR-NON AF DJIBOUTIAN 20 mL/min/1.73m2 Critically low >=60 [facility] Comment on above: Performed By: #### CMP ####[facility] Fbjigfvcmc2210 [place] [address]Dr. Yuki Diaz Globulin (S) [Mass/Vol] 4.4 g/dL Normal [facility] Comment on above: Performed By: #### CMP ####[facility] Gietdegitf0534 [place] [address]Dr. Yuki Joe Glucose [Mass/Vol] 260 mg/dL Critically high 74-106 [facility] Comment on above: Performed By: #### CMP ####[facility] Tdobijajmt3672 [place] [address]Dr. Yuki Joe Potassium [Moles/Vol] 4.7 mmol/L Normal 3.5-5.1 [facility] Comment on above: Performed By: #### CMP ####[facility] Ruiitsjwab3237 [place] [address]Dr. Yuki Diaz Protein [Mass/Vol] 7.5 g/dL Normal 6.4-8.2 [facility] Comment on above: Performed By: #### CMP ####[facility] Trvrrugdzt1494 [place] [address]Dr. Yuki Diaz Sodium [Moles/Vol] 140 mmol/L Normal 136-145 [facility] Comment on above: Performed By: #### CMP ####[facility] Tbqdoeccwg4896 [place] [address]Dr. Yuki Diaz Urea nitrogen [Mass/Vol] 50.0 mg/dL Critically high 7.0-18.0 [facility] Comment on above: Performed By: #### CMP ####[facility] Kpygbvkblu2124 [place], [place] [address]ZrBebo Diaz Urea nitrogen/Creatin ine [Mass ratio] 16.5 mg/mg Normal [facility] Comment on above: Performed By: #### CMP ####[facility] Wkbfcboyjs4799 [place], [place] [address]MjBebo Diaz Screenson 02-18-2022 Screens [id number]:[address] [facility] Ambulatory Visit Summaryon 0 02-15-2022 Ambulatory Visit Summary SHENG BAUER :1940 Visit Date:02/15/2022 Ambulatory Visit Instructions Your Diagnosis Elevated PSA BPH associated with nocturia Nocturia Tests Performed Urnls Dip Stick Auto w/o Microscopy POC 36532 Your Care Team Attending Physician - César [...] including vitamins, herbs, eye drops, creams, and ovbu-ldq-jzmnkrc medicines. This also includes: ? Medicines to [...] 08/26/2005 Document Revised: 07/06/2018 Document Reviewed: 04/30/2018 [employer] Patient Education ? 2019 [employer] Gordon Parker [facility] Urology Office/Clinic Noteon 02-15-2022 Urology Office/Clinic Note [...] Urnls Dip Stick Auto w/o Microscopy POC 03963 2. BPH associated with nocturia (N40.1: Benign [...] months [facility] [address] [place] [address]- Additional Instructions: w/ psa Patient Education Prostate-Specific [...] so unsure (more content not included)... Normal [facility] Comment on above: Result Comment: Electronically Signed By : Evan Ochoa MD, César Vega\.br\Date and Time Signed: 02/15/22 10:42 EDT\.br\Electronically Co-Signed By: Gretel Bhagat\.br\Date and Time Co-Signed: 02/15/22 10:35 EDT PROF 14(COMP METB)on 022 Albumin [Mass/Vol] 3.3 g/dL Critically low 3.4-5.0 [facility] Comment on above: Performed By: #### CMP ####[facility] Ahiwhimulj8260 [place] [address]Dr. Yuki Diaz Albumin/Globulin [Mass ratio] 0.8 {ratio} Normal [facility] Comment on above: Performed By: #### CMP ####[facility] Syhryteczu8366 [place] [address]Dr. Yuki Diaz ALP [Catalytic activity/Vol] 111 U/L Normal 46-116 [facility] Comment on above: Performed By: #### CMP ####[facility] ital Syhgivsvum8748 [place] [address]Dr. Yuki Diaz ALT [Catalytic activity/Vol] 22 U/L Normal 16-63 [facility] Comment on above: Performed By: #### CMP ####[facility] ital Lndigqgwiu5342 [place] [address]Dr. Yuki Diaz Anion gap [Moles/Vol] 9.0 mmol/L Normal [facility] Comment on above: Performed By: #### CMP ####[facility] ital Avmtrwqbpe3233 [place] [address]Dr. Yuki Diaz AST [Catalytic activity/Vol] 10 U/L Critically low 15-37 [facility] Comment on above: Performed By: #### CMP ####[facility] ital Mmsdbssxvw9591 [place] [address]Dr. Yuki Diaz Bilirubin [Mass/Vol] 1.0 mg/dL Normal 0.2-1.0 [facility] Comment on above: Performed By: #### CMP ####[facility] ital Wftmbniwij[address] [place], [place] [address]Dr. Yuki Diaz Calcium [Mass/Vol] 9.1 mg/dL Normal 8.5-10.1 [facility] Comment on above: Performed By: #### CMP ####[facility] Sisjbmldql9970 [place] [address]Dr. Yuki Diaz Chloride [Moles/Vol] 103 mmol/L Normal 98-107 [facility] Comment on above: Performed By: #### CMP ####[facility] Vsnaajfzwc6910 [place] [address]Dr. Yuki Diaz CO2 [Moles/Vol] 32.8 mmol/L Critically high 21.0-32.0 [facility] Comment on above: Performed By: #### CMP ####[facility] Savllyuvqa37[address] [place], [place] [address]Dr. Yuki Diaz Creatinine [Mass/Vol] 2.55 mg/dL Critically high 0.70-1.30 [facility] Comment on above: Performed By: #### CMP ####[facility] Hhmmwoictz7508 [place] [address]Dr. Yuki Diaz EGFR-AF DJIBOUTIAN 30 mL/min/1.73m2 Critically low >=60 [facility] Comment on above: Performed By: #### CMP ####[facility] Yjfrpvtxnj3436 [place] [address]Dr. Yuki Diaz EGFR-NON AF DJIBOUTIAN 24 mL/min/1.73m2 Critically low >=60 [facility] Comment on above: Performed By: #### CMP ####[facility] Cpmgsskqih6009 [place] [address]Dr. Yuki Diaz Globulin (S) [Mass/Vol] 4.0 g/dL Normal [facility] Comment on above: Performed By: #### CMP ####[facility] Ufxvjoawge4997 [place] [address]Dr. Yuki Diaz Glucose [Mass/Vol] 154 mg/dL Critically high 74-106 [facility] Comment on above: Performed By: #### CMP ####[facility] Buuotkfdbl5765 [place] [address]Dr. Yuki Diaz Potassium [Moles/Vol] 3.8 mmol/L Normal 3.5-5.1 [facility] Comment on above: Performed By: #### CMP ####[facility] Qajaqdqlwx5073 [place] [address]Dr. Yuki Diaz Protein [Mass/Vol] 7.3 g/dL Normal 6.4-8.2 [facility] Comment on above: Performed By: #### CMP ####[facility] Tbxtuymnao7245 [place] [address]Dr. Yuki Diaz Sodium [Moles/Vol] 141 mmol/L Normal 136-145 [facility] Comment on above: Performed By: #### CMP ####[facility] Sgwozyfanp1637 [place] [address]Dr. Yuki Diaz Urea nitrogen [Mass/Vol] 35.0 mg/dL Critically high 7.0-18.0 [facility] Comment on above: Performed By: #### CMP ####[facility] ital Nesbvmgvqm2944 [place] [address]Dr. Yuki Diaz Urea nitrogen/Creatin ine [Mass ratio] 13.7 mg/mg Normal [facility] Comment on above: Performed By: #### CMP ####[facility] ital Cxglgsagcp9581 [place] [address]Dr. Yuki Diaz PROF 14(COMP METB)on 022 Albumin [Mass/Vol] 2.9 g/dL Critically low 3.4-5.0 [facility] Comment on above: Performed By: #### CMP ####[facility] ital Cnykfqntix1962 [place] [address]Dr. Yuki Diaz Albumin/Globulin [Mass ratio] 0.8 {ratio} Normal [facility] Comment on above: Performed By: #### CMP ####[facility] ital Kjbtuxzscv2280 [place] [address]Dr. Yuki Diaz ALP [Catalytic activity/Vol] 96 U/L Normal 46-116 [facility] Comment on above: Performed By: #### CMP ####[facility] ital Kipgsvqwwu5142 [place] [address]Dr. Yuki Diaz ALT [Catalytic activity/Vol] 23 U/L Normal 16-63 [facility] Comment on above: Performed By: #### CMP ####[facility] ital Crpohoaszr5453 [place] [address]Dr. Yuki Diaz Anion gap [Moles/Vol] 11.6 mmol/L Normal [facility] Comment on above: Performed By: #### CMP ####[facility] ital Whxirlqapi8558 [place] [address]Dr. Yuki Diaz AST [Catalytic activity/Vol] 12 U/L Critically low 15-37 [facility] Comment on above: Performed By: #### CMP ####[facility] ital Mmuyuezvzs7251 [place] [address]Dr. Yuki Diaz Bilirubin [Mass/Vol] 0.7 mg/dL Normal 0.2-1.0 [facility] Comment on above: Performed By: #### CMP ####[facility] ital Dghhrjofor6724 [place] [address]Dr. Yuki Diaz Calcium [Mass/Vol] 8.7 mg/dL Normal 8.5-10.1 [facility] Comment on above: Performed By: #### CMP ####[facility] ital Zgatwfjfjf3075 [place] [address]Dr. Yuki Diaz Chloride [Moles/Vol] 103 mmol/L Normal 98-107 [facility] Comment on above: Performed By: #### CMP ####[facility] ital Dsrmesnkng5905 [place] [address]Dr. Yuki Diaz CO2 [Moles/Vol] 32.5 mmol/L Critically high 21.0-32.0 [facility] Comment on above: Performed By: #### CMP ####[facility] ital Ohdpvfzvlc7188 [place] [address]Dr. Yuki Joe Creatinine [Mass/Vol] 2.35 mg/dL Critically high 0.70-1.30 [facility] Comment on above: Performed By: #### CMP ####[facility] ital Hmduwdqgjy67[address] [place], [place] [address]Dr. Yuki Diaz EGFR-AF DJIBOUTIAN 33 mL/min/1.73m2 Critically low >=60 [facility] Comment on above: Performed By: #### CMP ####[facility] ital Dfcgbuqlyp8057[address] [place], [place] [address]Dr. Yuki Joe EGFR-NON AF DJIBOUTIAN 27 mL/min/1.73m2 Critically low >=60 [facility] Comment on above: Performed By: #### CMP ####[facility] ital Mlzhawwyqt2062 [place] [address]Dr. Yuki Diaz Globulin (S) [Mass/Vol] 3.6 g/dL Normal [facility] Comment on above: Performed By: #### CMP ####[facility] ital Nuubasmjfy6178 [place] [address]Dr. Yuki Diaz Glucose [Mass/Vol] 206 mg/dL Critically high 74-106 [facility] Comment on above: Performed By: #### CMP ####[facility] ital Qjagypmskm7640 [place] [address]Dr. Yuki Diaz Potassium [Moles/Vol] 4.1 mmol/L Normal 3.5-5.1 [facility] Comment on above: Performed By: #### CMP ####[facility] ital Vvymfgbkcp4124[address] [place], [place] [address]Dr. Yuki Diaz Protein [Mass/Vol] 6.5 g/dL Normal 6.4-8.2 [facility] Comment on above: Performed By: #### CMP ####[facility] ital Nixyjbbfld5340[address] [place], [place] [address]Dr. Yuki Diaz Sodium [Moles/Vol] 143 mmol/L Normal 136-145 [facility] Comment on above: Performed By: #### CMP ####[facility] ital Enwftmnweu2142[address] [place], [place] [address]Dr. Yuki Diaz Urea nitrogen [Mass/Vol] 34.0 mg/dL Critically high 7.0-18.0 [facility] Comment on above: Performed By: #### CMP ####[facility] Oxyewmuyss7755[address] [place], [place] [address]Dr. Yuki Diaz Urea nitrogen/Creatin ine [Mass ratio] 14.5 mg/mg Normal [facility] Comment on above: Performed By: #### CMP ####[facility] ital Iimunvlgfe7908[address] [place], [place] [address]Dr. Yuki Diaz BNPon 02-03-2022 Natriuretic peptide B (Bld) [Mass/Vol] 3216.0 pg/mL Critically high <=1,800.0 [facility] Comment on above: Result Comment: repeated Performed By: #### B MEDICAL VIDEOGRAPHER ####[facility] Mhgfrmhcxq5[address] [place], [place] [address]Dr. Yuki Diaz PROF 14(COMP METB)on 022 Albumin [Mass/Vol] 3.0 g/dL Critically low 3.4-5.0 [facility] Comment on above: Performed By: #### CMP ####[facility] ital Bdpfgwsehl8431 [place] [address]Dr. Yuki Diaz Albumin/Globulin [Mass ratio] 0.8 {ratio} Normal [facility] Comment on above: Performed By: #### CMP ####[facility] ital Nrsjzsgeqw3759 [place] [address]Dr. Yuki Diaz ALP [Catalytic activity/Vol] 104 U/L Normal 46-116 [facility] Comment on above: Performed By: #### CMP ####[facility] ital Klytzdzaiv6317 [place] [address]Dr. Yuki Diaz ALT [Catalytic activity/Vol] 32 U/L Normal 16-63 [facility] Comment on above: Performed By: #### CMP ####[facility] ital Jyocgzmrgt2870 [place] [address]Dr. Yuki Diaz Anion gap [Moles/Vol] 9.3 mmol/L Normal [facility] Comment on above: Performed By: #### CMP ####[facility] ital Wzfegfcvnc3301[address] [place], [place] [address]Dr. Yuki Diaz AST [Catalytic activity/Vol] 15 U/L Normal 15-37 [facility] Comment on above: Performed By: #### CMP ####[facility] Brywlzgbve0297 [place] [address]Dr. Monsealyssa Diaz Bilirubin [Mass/Vol] 0.9 mg/dL Normal 0.2-1.0 [facility] Comment on above: Performed By: #### CMP ####[facility] ital Obnrgzvcfr7332 [place] [address]Dr. Monsealyssa Diaz Calcium [Mass/Vol] 8.6 mg/dL Normal 8.5-10.1 [facility] Comment on above: Performed By: #### CMP ####[facility] ital Qhdstsaxqb4522 [place] [address]Dr. Yuki Diaz Chloride [Moles/Vol] 104 mmol/L Normal 98-107 [facility] Comment on above: Performed By: #### CMP ####[facility] ital Koragtpomw2314[address] [place], [place] [address]Dr. Yuki Joe CO2 [Moles/Vol] 35.9 mmol/L Critically high 21.0-32.0 [facility] Comment on above: Performed By: #### CMP ####[facility] ital Eikwxrtvzi8191 [place] [address]Dr. Yuki Diaz Creatinine [Mass/Vol] 1.98 mg/dL Critically high 0.70-1.30 [facility] Comment on above: Performed By: #### CMP ####[facility] Qackhyjvld0305 [place] [address]Dr. Yuki Joe EGFR-AF DJIBOUTIAN 40 mL/min/1.73m2 Critically low >=60 [facility] Comment on above: Performed By: #### CMP ####[facility] ital Dfiwmikrfk5257 [place] [address]Dr. Monsealyssa Joe EGFR-NON AF DJIBOUTIAN 33 mL/min/1.73m2 Critically low >=60 [facility] Comment on above: Performed By: #### CMP ####[facility] ital Mtdwyppjwo5887 [place] [address]Dr. Yuki Diaz Globulin (S) [Mass/Vol] 3.9 g/dL Normal [facility] Comment on above: Performed By: #### CMP ####[facility] ital Aylspdqked4492 [place] [address]Dr. Yuki Joe Glucose [Mass/Vol] 124 mg/dL Critically high 74-106 [facility] Comment on above: Performed By: #### CMP ####[facility] ital Zpklsetvlm4345 [place] [address]Dr. Yuki Joe Potassium [Moles/Vol] 4.2 mmol/L Normal 3.5-5.1 [facility] Comment on above: Performed By: #### CMP ####[facility] ital Rpldhvsbyi4192 [place] [address]Dr. Yuki Diaz Protein [Mass/Vol] 6.9 g/dL Normal 6.4-8.2 [facility] Comment on above: Performed By: #### CMP ####[facility] Nixghhrsvf9595 [place] [address]Dr. Yuki Diaz Sodium [Moles/Vol] 145 mmol/L Normal 136-145 [facility] Comment on above: Performed By: #### CMP ####[facility] ital Yssxgxonna2316 [place] [address]Dr. Yuki Diaz Urea nitrogen [Mass/Vol] 27.0 mg/dL Critically high 7.0-18.0 [facility] Comment on above: Performed By: #### CMP ####[facility] ital Qbdorputcl3125 [place] [address]Dr. Yuki Diaz Urea nitrogen/Creatin ine [Mass ratio] 13.6 mg/mg Normal [facility] Comment on above: Performed By: #### CMP ####[facility] Rvtsvssfls9370 [place] [address]Dr. Yuki Diaz BNPon 01-27-2022 Natriuretic peptide B (Bld) [Mass/Vol] 2090.0 pg/mL Critically high <=1,800.0 [facility] Comment on above: Performed By: #### CMP, BNP ####[facility] Bslardxude0130 [place] [address]Dr. Yuki Diaz CBC AUTO DIFFon 01-27-2022 BASO # 0.0 103/ul Normal 0.0-0.1 [facility] Comment on above: Performed By: #### CBC ####[facility] Cmcdjeshfm5750 [place] [address]Dr. Yuki Diaz Basophils/100 WBC (Bld) 0.2 % Normal 0.2-2.0 [facility] Comment on above: Performed By: #### CBC ####[facility] ital Utpbbqhxye4043 [place] [address]Dr. Yuki Diaz EO # 0.2 103/ul Normal 0.0-0.7 [facility] Comment on above: Performed By: #### CBC ####[facility] Jmeevriyej3744 [place] [address]Dr. Yuki Diaz Eosinophils/100 WBC (Bld) 1.8 % Normal 0.9-7.0 [facility] Comment on above: Performed By: #### CBC ####[facility] ital Ongpyyljqc2518 [place] [address]Dr. Yuki Diaz Erythrocyte distribution width (RBC) [Ratio] 13.4 % Normal 11.0-15.0 [facility] Comment on above: Performed By: #### CBC ####[facility] ital Mwnsybghwv7329 [place] [address]Dr. Yuki Diaz Hematocrit (Bld) [Volume fraction] 32.6 % Critically low 42.0-54.0 [facility] Comment on above: Performed By: #### CBC ####[facility] [address]htq[address] [place] [address]. Yuki Diaz Hemoglobin (Bld) [Mass/Vol] 10.4 g/dL Critically low 14.0-18.0 [facility] Comment on above: Performed By: #### CBC ####[facility] Yvlyiyreuc[address] [place] [address]. Yuki Diaz IG # 0.03 10e3/ul Normal 0.00-0.03 [facility] Comment on above: Performed By: #### CBC ####[facility] Edwijobavh684[address] [place] [address]. Yuki Diaz IG % 0.3 % Normal 0.0-0.5 [facility] Comment on above: Performed By: #### CBC ####[facility] Tbyjfrbavt95[address] [place], [place] [address]Dr. Yuki Diaz LYMPH # 1.2 103/ul Normal 1.2-3.8 [facility] Comment on above: Performed By: #### CBC ####[facility] Bmqhjdujii2129 [place] [address]Dr. Yuki Diaz Lymphocytes/100 WBC (Bld) 13.8 % Critically low 20.5-60.0 [facility] Comment on above: Performed By: #### CBC ####[facility] Bhkwolbjzp624[address] [place], [place] [address]Dr. Yuki Diaz MANUAL DIFF REQ NO Normal [facility] Comment on above: Performed By: #### CBC ####[facility] Sxgygjdazx8806 [place] [address]Dr. Yuki Diaz MCH (RBC) [Entitic mass] 31.9 pg Normal 25.9-34.0 [facility] Comment on above: Performed By: #### CBC ####[facility] ital Redxykzslr6853 [place] [address]Dr. Yuki Diaz MCHC (RBC) [Mass/Vol] 31.9 g/dL Normal 29.9-35.2 [facility] Comment on above: Performed By: #### CBC ####[facility] Mvagodehsg6956 [place] [address]Dr. Monsealyssa Diaz MCV (RBC) [Entitic vol] 100.0 fL Critically high 80.0-94.0 [facility] Comment on above: Performed By: #### CBC ####[facility] Ezybmdyjcw49[address] [place], [place] [address]Dr. Yuki Diaz MONO # 0.9 103/ul Critically high 0.3-0.8 [facility] Comment on above: Performed By: #### CBC ####[facility] Qivxncworw4716 [place] [address]Dr. Monsealyssa Diaz Monocytes/100 WBC (Bld) 10.1 % Normal 1.7-12.0 [facility] Comment on above: Performed By: #### CBC ####[facility] Spxogrzumc9639 [place] [address]Dr. Yuki Diaz NEUT # 6.6 103/ul Critically high 1.4-6.5 [facility] Comment on above: Performed By: #### CBC ####[facility] Gtrdvcvmyg1544 [place] [address]Dr. Monsealyssa Diaz Neutrophils/100 WBC (Bld) 73.8 % Normal 43.0-75.0 [facility] Comment on above: Performed By: #### CBC ####[facility] Lxlhvjhwwd[address] [place], [place] [address]Dr. Yuki Diaz Platelet mean volume (Bld) [Entitic vol] 10.3 fL Normal 9.5-13.5 [facility] Comment on above: Performed By: #### CBC ####[facility] Poddqaispa3728 [place] [address]Dr. Yuki Diaz PLT 196 103/ul Normal 150-450 [facility] Comment on above: Performed By: #### CBC ####[facility] Vwtxgejhsq5484 [place] [address]Dr. Monsealyssa Diaz RBC 3.26 106/ul Critically low 4.70-6.10 [facility] Comment on above: Performed By: #### CBC ####[facility] Qdzwlhtilo8979 [place] [address]Dr. Monsealyssa Joe WBC 9.0 103/ul Normal 4.0-11.0 [facility] Comment on above: Performed By: #### CBC ####[facility] Wbnymsjxbj4395 [place] [address]Dr. Yuki Diaz POINT OF CARE GLUCOSEon 01-06 Glucose [Mass/Vol] 155 mg/dL Critically high 74-106 [facility] Comment on above: Performed By: #### POCGLUC ####[facility] Wiobsglwsl5433 [place] [address]Dr. Yuki Diaz Glucose [Mass/Vol] 120 mg/dL Critically high 74-106 [facility] Comment on above: Performed By: #### POCGLUC ####[facility] Jzgpprbpds0929 [place] [address]Dr. Yuki Diaz PROF 14(COMP METB)on 022 Albumin [Mass/Vol] 2.8 g/dL Critically low 3.4-5.0 [facility] Comment on above: Performed By: #### CMP, BNP ####[facility] Olnsrmcqgl3380 [place] [address]Dr. Yuki Diaz Albumin/Globulin [Mass ratio] 0.8 {ratio} Normal [facility] Comment on above: Performed By: #### CMP, BNP ####[facility] Jgxwudsdht6924 [place] [address]Dr. Yuki Diaz ALP [Catalytic activity/Vol] 96 U/L Normal 46-116 [facility] Comment on above: Performed By: #### CMP, BNP ####[facility] Ruefttlnqf4158 [place] [address]Dr. Yuki Diaz ALT [Catalytic activity/Vol] 27 U/L Normal 16-63 [facility] Comment on above: Performed By: #### CMP, BNP ####[facility] Dbyudvxzdf9024 [place] [address]Dr. Yuki Diaz Anion gap [Moles/Vol] 8.7 mmol/L Normal [facility] Comment on above: Performed By: #### CMP, BNP ####[facility] Owdkuwjvan9567 [place] [address]Dr. Yuki Diaz AST [Catalytic activity/Vol] 17 U/L Normal 15-37 [facility] Comment on above: Performed By: #### CMP, BNP ####[facility] Ctfsdxpklt1736 [place] [address]Dr. Yuki Diaz Bilirubin [Mass/Vol] 0.8 mg/dL Normal 0.2-1.0 [facility] Comment on above: Performed By: #### CMP, BNP ####[facility] Shhuawseip0129 [place] [address]Dr. Yuki Diaz Calcium [Mass/Vol] 8.2 mg/dL Critically low 8.5-10.1 [facility] [facility] Comment on above: Performed By: #### CMP, BNP ####[facility] [address]bxbyyuhpo[address] [place] [address]Dr. Yuki Diaz Chloride [Moles/Vol] 104 mmol/L Normal 98-107 [facility] Comment on above: Performed By: #### CMP, BNP ####[facility] Bwppyvrmdh[address] [place] [id number]. Yuki Diaz CO2 [Moles/Vol] 37.3 mmol/L Critically high 21.0-32.0 [facility] Comment on above: Performed By: #### CMP, BNP ####[facility] Vjeuxdiroz6[address] [place] [id number]. Yuki Diaz Creatinine [Mass/Vol] 1.90 mg/dL Critically high 0.70-1.30 [facility] Comment on above: Performed By: #### CMP, BNP ####[facility] Rcxhlkytow[address] [place] [address]Dr. Yuki Diaz EGFR-AF DJIBOUTIAN 42 mL/min/1.73m2 Critically low >=60 [facility] Comment on above: Performed By: #### CMP, BNP ####[facility] Ihsnkbdejg[address] [place], [place] [address]Dr. Yuki Diaz EGFR-NON AF DJIBOUTIAN 34 mL/min/1.73m2 Critically low >=60 [facility] Comment on above: Performed By: #### CMP, BNP ####[facility] Kjooksybxv[address] [place], [place] [address]Dr. Yuki Diaz Globulin (S) [Mass/Vol] 3.5 g/dL Normal [facility] Comment on above: Performed By: #### CMP, BNP ####[facility] Kiirkzrxxm087[address] [place], [place] [address]Dr. Yuki Diaz Glucose [Mass/Vol] 44 mg/dL Critically low 74-106 [facility] Comment on above: Result Comment: Test Repeated. Critical Value Verified Performed By: #### C MP, BNP ####[facility] Nwfeaxnoye[address] [place], [place] [address]Dr. Yuki Diaz Potassium [Moles/Vol] 3.0 mmol/L Critically low 3.5-5.1 [facility] Comment on above: Performed By: #### CMP, BNP ####[facility] Cdkxgmxmfo[address] [place], [place] [address]Dr. Yuki Diaz Protein [Mass/Vol] 6.3 g/dL Critically low 6.4-8.2 [facility] Comment on above: Performed By: #### CMP, BNP ####[facility] Aiqdrxdcqd6933[address] [place], [place] [address]Dr. Yuki Diaz Sodium [Moles/Vol] 147 mmol/L Critically high 136-145 [facility] Comment on above: Performed By: #### CMP, BNP ####[facility] Bkxisbmkuj[address] [place], [place] [address]Dr. Yuki Diaz Urea nitrogen [Mass/Vol] 33.0 mg/dL Critically high 7.0-18.0 [facility] Comment on above: Performed By: #### CMP, BNP ####[facility] Tbsrfmrfhk99[address] [place], [place] [address]Dr. Yuki Diaz Urea nitrogen/Creatin ine [Mass ratio] 17.4 mg/mg Normal [facility] Comment on above: Performed By: #### CMP, BNP ####[facility] Duikrrcxlh57[address] [place], [place] [address]Dr. Yuki Diaz BNPon 01-26-2022 Natriuretic peptide B (Bld) [Mass/Vol] 3997.0 pg/mL Critically high <=1,800.0 [facility] Comment on above: Performed By: #### BNP, CMP ####[facility] Xzzcpxumfv00[address] [place], [place] [address]Dr. Yuki Diaz CBC AUTO DIFFon 01-26-2022 BASO # 0.0 103/ul Normal 0.0-0.1 [facility] Comment on above: Performed By: #### CBC ####[facility] ital Nqumlhssfw9[address] [place], [place] [address]Dr. Yuki Diaz Basophils/100 WBC (Bld) 0.2 % Normal 0.2-2.0 [facility] Comment on above: Performed By: #### CBC ####[facility] ital Dvzhblqabm50[address] [place], [place] [address]Dr. Yuki Diaz EO # 0.2 103/ul Normal 0.0-0.7 [facility] Comment on above: Performed By: #### CBC ####[facility] ital Jfqygzshte5987[address] [place], [place] [address]Dr. Yuki Diaz Eosinophils/100 WBC (Bld) 1.6 % Normal 0.9-7.0 [facility] Comment on above: Performed By: #### CBC ####[facility] ital Wanzfjnhhm2486[address] [place], [place] [address]Dr. Yuki Diaz Erythrocyte distribution width (RBC) [Ratio] 13.5 % Normal 11.0-15.0 [facility] Comment on above: Performed By: #### CBC ####[facility] Fhexusojik7[address] [place] [address]Dr. Yuki Diaz Hematocrit (Bld) [Volume fraction] 34.9 % Critically low 42.0-54.0 [facility] Comment on above: Performed By: #### CBC ####[facility] Gpxofxndbp96[address] [place] [address]Dr. Yuki Diaz Hemoglobin (Bld) [Mass/Vol] 11.3 g/dL Critically low 14.0-18.0 [facility] Comment on above: Performed By: #### CBC ####[facility] Bprnqtabtf80[address] [place] [address]Dr. Yuki Diaz IG # 0.03 10e3/ul Normal 0.00-0.03 [facility] Comment on above: Performed By: #### CBC ####[facility] Szacbfxtqh1661 [address] Monsealyssa Diaz IG % 0.3 % Normal 0.0-0.5 [facility] Comment on above: Performed By: #### CBC ####[facility] Jgicumuejo[address] Yuki Diaz LYMPH # 1.5 103/ul Normal 1.2-3.8 [facility] Comment on above: Performed By: #### CBC ####[facility] Cufgvhfpdk[address] [place] [address]Dr. Monsealyssa Diaz Lymphocytes/100 WBC (Bld) 15.1 % Critically low 20.5-60.0 [facility] Comment on above: Performed By: #### CBC ####[facility] Oopccdipnx13[address] [place] [address]Dr. Monsealyssa Diaz MANUAL DIFF REQ NO Normal [facility] Comment on above: Performed By: #### CBC ####[facility] Oytxkwqmjz45[address] [place] [address]Dr. Yuki Diaz MCH (RBC) [Entitic mass] 32.2 pg Normal 25.9-34.0 [facility] Comment on above: Performed By: #### CBC ####[facility] ital Avncgautgt61[address] [place] [address]Dr. Yuki Joe MCHC (RBC) [Mass/Vol] 32.4 g/dL Normal 29.9-35.2 [facility] Comment on above: Performed By: #### CBC ####[facility] ital Njmhczwfhn340[address] [place] [address]Dr. Yuki Diaz MCV (RBC) [Entitic vol] 99.4 fL Critically high 80.0-94.0 [facility] Comment on above: Performed By: #### CBC ####[facility] ital Elwmjpuqvg0683 [place] [address]Dr. Yuki Diaz MONO # 1.1 103/ul Critically high 0.3-0.8 [facility] Comment on above: Performed By: #### CBC ####[facility] Athlrwqgbw55[address] [place] [address]Dr. Yuki Diaz Monocytes/100 WBC (Bld) 10.7 % Normal 1.7-12.0 [facility] Comment on above: Performed By: #### CBC ####[facility] Slpkpxkmvn9539[address] [place], [place] [address]Dr. Yuki Diaz NEUT # 7.3 103/ul Critically high 1.4-6.5 [facility] Comment on above: Performed By: #### CBC ####[facility] Zijjqumxlt[address] [place], [place] [address]Dr. Yuki Diaz Neutrophils/100 WBC (Bld) 72.1 % Normal 43.0-75.0 [facility] Comment on above: Performed By: #### CBC ####[facility] ital Mzehbnftdw2840[address] [place], [place] [address]Dr. Yuki Diaz Platelet mean volume (Bld) [Entitic vol] 10.2 fL Normal 9.5-13.5 [facility] Comment on above: Performed By: #### CBC ####[facility] ital Biwuvjmsdi4907[address] [place], [place] [address]Dr. Yuki Diaz PLT 208 103/ul Normal 150-450 [facility] Comment on above: Performed By: #### CBC ####[facility] ital Nvdrvpwdwf1635 [place] [id number]. Monsealyssa Joe RBC 3.51 106/ul Critically low 4.70-6.10 [facility] Comment on above: Performed By: #### CBC ####[facility] ital Jfsypucbaq8424 [place] [address]Dr. Yuki Diaz WBC 10.1 103/ul Normal 4.0-11.0 [facility] Comment on above: Performed By: #### CBC ####[facility] ital Vxuryxtzbx5684 [place] [address]Dr. Yuki Diaz POINT OF CARE GLUCOSEon 01-06 Glucose [Mass/Vol] 205 mg/dL Critically high 74-106 [facility] Comment on above: Performed By: #### POCGLUC ####[facility] Rsboyfjids35[address] [place] [address]Dr. Yuki Diaz Glucose [Mass/Vol] 210 mg/dL Critically high 74-106 [facility] Comment on above: Performed By: #### POCGLUC ####[facility] Xrsgpeuryx9514 [place] [address]Dr. Yuki Diaz Glucose [Mass/Vol] 160 mg/dL Critically high 74-106 [facility] Comment on above: Performed By: #### POCGLUC ####[facility] Bqcpsmqidu0616 [place] [address]Dr. Yuki Diaz PROF 14(COMP METB)on 022 Albumin [Mass/Vol] 3.0 g/dL Critically low 3.4-5.0 [facility] Comment on above: Performed By: #### BNP, CMP ####[facility] Rvundvpyxq14[address] [place] [address]Dr. Yuki Diaz Albumin/Globulin [Mass ratio] 0.8 {ratio} Normal [facility] Comment on above: Performed By: #### BNP, CMP ####[facility] Vrvcuivbvk7371 [place] [address]Dr. Yuki Diaz ALP [Catalytic activity/Vol] 106 U/L Normal 46-116 [facility] Comment on above: Performed By: #### BNP, CMP ####[facility] Tfamplgdme5318 [place] [address]Dr. Yuki Diaz ALT [Catalytic activity/Vol] 33 U/L Normal 16-63 [facility] Comment on above: Performed By: #### BNP, CMP ####[facility] Foiybpnant5[address] [place] [address]Dr. Yuki Diaz Anion gap [Moles/Vol] 6.1 mmol/L Normal [facility] Comment on above: Performed By: #### BNP, CMP ####[facility] Vxihosrocc1015 [place] [address]Dr. Yuki Joe AST [Catalytic activity/Vol] 20 U/L Normal 15-37 [facility] Comment on above: Performed By: #### BNP, CMP ####[facility] Jhncigkwrm47[address] [place], [place] [address]Dr. Yuki Diaz Bilirubin [Mass/Vol] 0.8 mg/dL Normal 0.2-1.0 [facility] Comment on above: Performed By: #### BNP, CMP ####[facility] Mveemoipmp8[address] [place], [place] [address]Dr. Yuki Joe Calcium [Mass/Vol] 8.4 mg/dL Critically low 8.5-10.1 [facility] Comment on above: Performed By: #### BNP, CMP ####[facility] Eshvincfco12[address] [place], [place] [address]Dr. Yuki Diaz Chloride [Moles/Vol] 105 mmol/L Normal 98-107 [facility] Comment on above: Performed By: #### BNP, CMP ####[facility] Vzzfwwrnwa5914[address] [place], [place] [address]Dr. Yuki Diaz CO2 [Moles/Vol] 40.2 mmol/L Critically high 21.0-32.0 [facility] Comment on above: Performed By: #### BNP, CMP ####[facility] Ibhwocbgcw8806[address] [place], [place] [address]Dr. Yuki Diaz Creatinine [Mass/Vol] 1.88 mg/dL Critically high 0.70-1.30 [facility] Comment on above: Performed By: #### BNP, CMP ####[facility] Diydhbmdnq8039 [place] [address]Dr. Yuki Diaz EGFR-AF DJIBOUTIAN 42 mL/min/1.73m2 Critically low >=60 [facility] Comment on above: Performed By: #### BNP, CMP ####[facility] Bwxcgvvmbm79[address] [place] [address]Dr. Yuki Diaz EGFR-NON AF DJIBOUTIAN 35 mL/min/1.73m2 Critically low >=60 [facility] Comment on above: Performed By: #### BNP, CMP ####[facility] Iqzczgnaiu4432 [place] [address]Dr. Yuki Joe Globulin (S) [Mass/Vol] 3.6 g/dL Normal [facility] Comment on above: Performed By: #### BNP, CMP ####[facility] Mxzuyqtjgd5379[address] [place], [place] [address]Dr. Monsealyssa Joe Glucose [Mass/Vol] 62 mg/dL Critically low 74-106 [facility] Comment on above: Performed By: #### BNP, CMP ####[facility] Thqfndchet036[address] [place], [place] [address]Dr. Yuki Joe Potassium [Moles/Vol] 3.3 mmol/L Critically low 3.5-5.1 [facility] Comment on above: Performed By: #### BNP, CMP ####[facility] Mlbmdtdney7115[address] [place], [place] [address]Dr. Yuki Joe Protein [Mass/Vol] 6.6 g/dL Normal 6.4-8.2 [facility] Comment on above: Performed By: #### BNP, CMP ####[facility] Rnmwcwqrxn8192[address] [place], [place] [address]Dr. Monsealyssa Joe Sodium [Moles/Vol] 148 mmol/L Critically high 136-145 [facility] Comment on above: Performed By: #### BNP, CMP ####[facility] Xodupujseq1937[address] [place], [place] [address]Dr. Monsealyssa Joe Urea nitrogen [Mass/Vol] 29.0 mg/dL Critically high 7.0-18.0 [facility] Comment on above: Performed By: #### BNP, CMP ####[facility] Tgoyqspbbv4128[address] [place], [place] [address]Dr. Yuki Diaz Urea nitrogen/Creatin ine [Mass ratio] 15.4 mg/mg Normal [facility] Comment on above: Performed By: #### BNP, CMP ####[facility] Lhmhqeqrhr37[address] [place], [place] [address]Dr. Yuki Diaz PROF CHEM 8 (BAS METB)on Anion gap [Moles/Vol] 11.1 mmol/L Normal [facility] Comment on above: Performed By: #### BMP ####[facility] ital Qlpgswwmwv81[address] [place], [place] [address]Dr. Yuki Diaz Calcium [Mass/Vol] 8.1 mg/dL Critically low 8.5-10.1 [facility] Comment on above: Performed By: #### BMP ####[facility] ital Rtgpvcorda044[address] [place], [place] [address]Dr. Yuki Diaz Chloride [Moles/Vol] 102 mmol/L Normal 98-107 [facility] Comment on above: Performed By: #### BMP ####[facility] ital Dvefkskquk0846[address] [place], [place] [address]Dr. Yuki Diaz CO2 [Moles/Vol] 35.4 mmol/L Critically high 21.0-32.0 [facility] Comment on above: Performed By: #### BMP ####[facility] Oyspbuztoo9732[address] [place], [place] [address]Dr. Yuki Diaz Creatinine [Mass/Vol] 1.88 mg/dL Critically high 0.70-1.30 [facility] Comment on above: Performed By: #### BMP ####[facility] ital Gaaezwgkwf077[address] [place], [place] [address]Dr. Yuki Diaz EGFR-AF DJIBOUTIAN 42 mL/min/1.73m2 Critically low >=60 [facility] Comment on above: Performed By: #### BMP ####[facility] Dgoydetppw7527[address] [place], [place] [address]Dr. Yuki Diaz EGFR-NON AF DJIBOUTIAN 35 mL/min/1.73m2 Critically low >=60 [facility] Comment on above: Performed By: #### BMP ####[facility] ital Rvpxflvrqs5296 [place] [address]Dr. Yuki Diaz Glucose [Mass/Vol] 208 mg/dL Critically high 74-106 [facility] Comment on above: Performed By: #### BMP ####[facility] ital Mrubcddqep3980 [place] [address]Dr. Yuki Diaz Potassium [Moles/Vol] 3.5 mmol/L Normal 3.5-5.1 [facility] Comment on above: Performed By: #### BMP ####[facility] ital Emjgpiyzei7856 [place] [address]Dr. Yuki Diaz Sodium [Moles/Vol] 145 mmol/L Normal 136-145 [facility] Comment on above: Performed By: #### BMP ####[facility] Sjwlowqgnd3609 [place] [address]Dr. Yuki Diaz Urea nitrogen [Mass/Vol] 33.0 mg/dL Critically high 7.0-18.0 [facility] Comment on above: Performed By: #### BMP ####[facility] Zkcpyrbcex9016 [place] [address]Dr. Yuki Diaz Urea nitrogen/Creatin ine [Mass ratio] 17.6 mg/mg Normal [facility] Comment on above: Performed By: #### BMP ####[facility] ital Yuwkmwustg3254 [place] [address]Dr. Yuki Diaz PROTIMEon 01-26-2022 INR Coag (PPP) [Relative time] 1.15 {INR} Normal [facility] Comment on above: Performed By: #### PT ####[facility] kacie Ojeykgtddq4[address] [place] [address]Dr. Yuki Diaz INR GUIDELINES SEE BELOW Normal [facility] Comment on above: Result Comment: DESIRED INR: 2.0 - 3.0 C ONDITIONS NOT LISTED BELOW 2.5 - 3.5 FOR PROSTHETIC HEART VALVE REPLACEMENT 2.5 - 3.5 RECURRENT THROMBOSIS Performed By: #### P T ####[facility] Mydzoatdxs8[address] [place], [place] [address]Dr. Yuki Diaz PT Coag (PPP) [Time] 12.3 s Critically high 9.0-11.6 [facility] Comment on above: Performed By: #### PT ####[facility] kacie Ziralgywlj5880[address] [place], [place] [address]Dr. Yuki Diaz BNPon 01-25-2022 Natriuretic peptide B (Bld) [Mass/Vol] 3414.0 pg/mL Critically high <=1,800.0 [facility] Comment on above: Performed By: #### BNP, BMP ####[facility] Xdbggdjtem7170[address] [place], [place] [address]Dr. Yuki Diaz CBC AUTO DIFFon 01-25-2022 BASO # 0.0 103/ul Normal 0.0-0.1 [facility] Comment on above: Performed By: #### CBC ####[facility] Mqqwbofutn7[address] [place], [place] [address]Dr. Yuki Diaz Basophils/100 WBC (Bld) 0.3 % Normal 0.2-2.0 [facility] Comment on above: Performed By: #### CBC ####[facility] Acbjhuwsap[address] [place], [place] [address]Dr. Yuki Diaz EO # 0.2 103/ul Normal 0.0-0.7 [facility] Comment on above: Performed By: #### CBC ####[facility] Nrtavcj[address]kx[address] [place] [address]. Yuki Diaz Eosinophils/100 WBC (Bld) 1.9 % Normal 0.9-7.0 [facility] Comment on above: Performed By: #### CBC ####[facility] Vwgfmuxhkm16[address] [place], [place] [address]Dr. Yuki Diaz Erythrocyte distribution width (RBC) [Ratio] 13.2 % Normal 11.0-15.0 [facility] Comment on above: Performed By: #### CBC ####[facility] Fpxlnaywhj[address] [place], [place] [address]Dr. Monsealyssa Diaz Hematocrit (Bld) [Volume fraction] 33.8 % Critically low 42.0-54.0 [facility] Comment on above: Performed By: #### CBC ####[facility] Prizjzmbqr29[address] [place] [address]Dr. Monsealyssa Diaz Hemoglobin (Bld) [Mass/Vol] 10.8 g/dL Critically low 14.0-18.0 [facility] Comment on above: Performed By: #### CBC ####[facility] Ncwzmhvyyl[address] [place] [address]Dr. Yuki Diaz IG # 0.04 10e3/ul Critically high 0.00-0.03 [facility] Comment on above: Performed By: #### CBC ####[facility] Hjphqbesii0263 [place] [address]Dr. Yuki Diaz IG % 0.4 % Normal 0.0-0.5 [facility] Comment on above: Performed By: #### CBC ####[facility] Jbkxqgwrup[address] Yuki Diaz LYMPH # 1.5 103/ul Normal 1.2-3.8 [facility] Comment on above: Performed By: #### CBC ####[facility] Hwqxqqxeik0306 [place] [address]Dr. Yuki Diza Lymphocytes/100 WBC (Bld) 14.8 % Critically low 20.5-60.0 [facility] Comment on above: Performed By: #### CBC ####[facility] Rwouqzgzmo3[address] [place] [address]Dr. Yuki Diaz MANUAL DIFF REQ NO Normal [facility] Comment on above: Performed By: #### CBC ####[facility] Zjxlhuprua2165 [place] [address]DrBebo Diaz MCH (RBC) [Entitic mass] 31.9 pg Normal 25.9-34.0 [facility] Comment on above: Performed By: #### CBC ####[facility] Hozrfghuaf3126 [place] [address]Dr. Yuki Joe MCHC (RBC) [Mass/Vol] 32.0 g/dL Normal 29.9-35.2 [facility] Comment on above: Performed By: #### CBC ####[facility] Dhvnfqogjw1813 [place] [address]Dr. Yuki Diaz MCV (RBC) [Entitic vol] 99.7 fL Critically high 80.0-94.0 [facility] Comment on above: Performed By: #### CBC ####[facility] ital Oviagksliv6224 [place] [address]Dr. Yuki Joe MONO # 1.0 103/ul Critically high 0.3-0.8 [facility] Comment on above: Performed By: #### CBC ####[facility] Puvredfmwz7538 [place] [address]Dr. Yuki Diaz Monocytes/100 WBC (Bld) 9.8 % Normal 1.7-12.0 [facility] Comment on above: Performed By: #### CBC ####[facility] Canhsmlijj8755 [place] [address]Dr. Yuki Joe NEUT # 7.1 103/ul Critically high 1.4-6.5 [facility] Comment on above: Performed By: #### CBC ####[facility] Yfnjafdprd4383 [place] [address]Dr. Yuki Joe Neutrophils/100 WBC (Bld) 72.8 % Normal 43.0-75.0 [facility] Comment on above: Performed By: #### CBC ####[facility] Jgehcmvsmy0299 [place] [address]Dr. Yuki Joe Platelet mean volume (Bld) [Entitic vol] 10.4 fL Normal 9.5-13.5 [facility] Comment on above: Performed By: #### CBC ####[facility] Kywmrezuav8732 [place] [address]Dr. Monsealyssa Diaz PLT 204 103/ul Normal 150-450 [facility] Comment on above: Performed By: #### CBC ####[facility] Wjwwtqqejf0402 [place] [address]Dr. Yuki Diaz RBC 3.39 106/ul Critically low 4.70-6.10 [facility] Comment on above: Performed By: #### CBC ####[facility] Vzzdnmesxn8471 [place] [address]Dr. Yuki Diaz WBC 9.8 103/ul Normal 4.0-11.0 [facility] Comment on above: Performed By: #### CBC ####[facility] Zhtykqarry6380 [place] [address]Dr. Yuki Diaz POINT OF CARE GLUCOSEon -09 07-2021 Glucose [Mass/Vol] 194 mg/dL Critically high 74-106 [facility] Comment on above: Performed By: #### POCGLUC ####[facility] Jgpysrwocf0088 [place] [address]Dr. Yuki Diaz Glucose [Mass/Vol] 196 mg/dL Critically high 74-106 [facility] Comment on above: Performed By: #### POCGLUC ####[facility] Zlvcwsrvir[address] [place], [place] [address]Dr. Yuki Diaz Glucose [Mass/Vol] 253 mg/dL Critically high 74-106 [facility] Comment on above: Performed By: #### POCGLUC ####[facility] Umnyznkypo0158 [place] [address]Dr. Yuki Diaz Glucose [Mass/Vol] 106 mg/dL Normal 74-106 [facility] Comment on above: Performed By: #### POCGLUC ####[facility] Uwxclpjufw8[address] [place], [place] [address]Dr. Yuki Diaz POTASSIUMon 01-25-2022 Potassium [Moles/Vol] 3.4 mmol/L Critically low 3.5-5.1 [facility] Comment on above: Performed By: #### K ####[facility] al Kknixufaco5710 [place] [address]Dr. Yuki Diaz PROF CHEM 8 (BAS METB)on Anion gap [Moles/Vol] 9.0 mmol/L Normal [facility] Comment on above: Performed By: #### BMP ####[facility] ital Rlbymliled2333 [place] [address]Dr. Yuki Diaz Calcium [Mass/Vol] 8.3 mg/dL Critically low 8.5-10.1 [facility] Comment on above: Performed By: #### BMP ####[facility] ital Nsakwiynkc6561 [place] [address]Dr. Yuki iDaz Chloride [Moles/Vol] 103 mmol/L Normal 98-107 [facility] Comment on above: Performed By: #### BMP ####[facility] ital Qtkdfjvngd0681 [place] [address]Dr. Yuki Diaz CO2 [Moles/Vol] 35.9 mmol/L Critically high 21.0-32.0 [facility] Comment on above: Performed By: #### BMP ####[facility] Hpoibykcgs9267 [place] [address]Dr. Yuki Diaz Creatinine [Mass/Vol] 1.94 mg/dL Critically high 0.70-1.30 [facility] Comment on above: Performed By: #### BMP ####[facility] Bvyuffomqv0254 [place] [address]Dr. Yuki Diaz EGFR-AF DJIBOUTIAN 41 mL/min/1.73m2 Critically low >=60 [facility] Comment on above: Performed By: #### BMP ####[facility] Sergvtwbnv1316 [place] [address]Dr. Yuki Diaz EGFR-NON AF DJIBOUTIAN 34 mL/min/1.73m2 Critically low >=60 [facility] Comment on above: Performed By: #### BMP ####[facility] ital Lnuwolhbfu0791 [place] [address]Dr. Yuki Diaz Glucose [Mass/Vol] 181 mg/dL Critically high 74-106 [facility] Comment on above: Performed By: #### BMP ####[facility] Nozpgddvde0540 [place] [address]Dr. Yuki Diaz Potassium [Moles/Vol] 2.9 mmol/L Critically low 3.5-5.1 [facility] Comment on above: Result Comment: TEST REPEATED CRITICAL V ALUE VERIFIED Performed By: #### B MP ####[facility] Fobdlayxgl[address] [place] [address]Dr. Yuki Diaz Sodium [Moles/Vol] 145 mmol/L Normal 136-145 [facility] Comment on above: Performed By: #### BMP ####[facility] ital Vexcosoifz5[address] [place] [address]Dr. Yuki Diaz Urea nitrogen [Mass/Vol] 30.0 mg/dL Critically high 7.0-18.0 [facility] Comment on above: Performed By: #### BMP ####[facility] ital Kwnvplrlcs[address] [place], [place] [address]Dr. Yuki Joe Urea nitrogen/Creatin ine [Mass ratio] 15.5 mg/mg Normal [facility] Comment on above: Performed By: #### BMP ####[facility] ital Dxcjyepnrp[address] [place], [place] [address]Dr. Yuki Joe Anion gap [Moles/Vol] 9.0 mmol/L Normal [facility] Comment on above: Performed By: #### BNP, BMP ####[facility] Symsohqsqx[address] [place], [place] [address]Dr. Yuki Joe Calcium [Mass/Vol] 8.3 mg/dL Critically low 8.5-10.1 [facility] Comment on above: Performed By: #### BNP, BMP ####[facility] Fkiheqcjjc[address] [place], [place] [address]Dr. Yuki Joe Chloride [Moles/Vol] 104 mmol/L Normal 98-107 [facility] Comment on above: Performed By: #### BNP, BMP ####[facility] Idiwrvlkct[address] [place] [address]Dr. Yuki Diaz CO2 [Moles/Vol] 37.0 mmol/L Critically high 21.0-32.0 [facility] Comment on above: Performed By: #### BNP, BMP ####[facility] Jvxroooieu[address] [place], [place] [address]Dr. Yuki Diaz Creatinine [Mass/Vol] 2.03 mg/dL Critically high 0.70-1.30 [facility] Comment on above: Performed By: #### BNP, BMP ####[facility] Xcaiikolet[address] [place] [address]Dr. Yuki Diaz EGFR-AF DJIBOUTIAN 39 mL/min/1.73m2 Critically low >=60 [facility] Comment on above: Performed By: #### BNP, BMP ####[facility] Keulljgzbi[address] [place] [id number]. Yuki Diaz EGFR-NON AF DJIBOUTIAN 32 mL/min/1.73m2 Critically low >=60 [facility] Comment on above: Performed By: #### BNP, BMP ####[facility] Wfvsglyjif040[address] [place] [address]Dr. Monsealyssa Joe Glucose [Mass/Vol] 102 mg/dL Normal 74-106 [facility] Comment on above: Performed By: #### BNP, BMP ####[facility] Cfgdjmtrgj5569 [place] [address]Dr. Yuki Diaz Potassium [Moles/Vol] 3.0 mmol/L Critically low 3.5-5.1 [facility] Comment on above: Performed By: #### BNP, BMP ####[facility] Jouvpimbhz7[address] [place], [place] [address]Dr. Monsealyssa Joe Sodium [Moles/Vol] 147 mmol/L Critically high 136-145 [facility] Comment on above: Performed By: #### BNP, BMP ####[facility] Ejzoyospsq24[address] [place] [address]Dr. Monsealyssa Joe Urea nitrogen [Mass/Vol] 31.0 mg/dL Critically high 7.0-18.0 [facility] Comment on above: Performed By: #### BNP, BMP ####[facility] Keuvfztufj230[address] [place] [address]Dr. Monsealyssa Joe Urea nitrogen/Creatin ine [Mass ratio] 15.3 mg/mg Normal [facility] Comment on above: Performed By: #### BNP, BMP ####[facility] Fkmmruywgi7[address] [place] [address]Dr. Monsealyssa Joe TROPONIN, HIGH SENSITIVITYon 01-25-2022 HSTROP 38.8 pg/mL Normal 4.0-76.1 [facility] Comment on above: Result Comment: CUT-OFF POINTS HAVE BEEN ESTABLISHED BASED ON THE FOURTH UNIVERSAL DEFINITIONS OF MYOCARDIALINFARCTION. THE UPPER REFERENCE LIMIT (URL) OF TROPONIN, DEFINED THE 99TH PERCENTILE OFcTnI DISTRIBUTION IN A REFERENCE POPULATION, HAS BEEN CONFIRMED THE DECISION THRESHOLDFOR MT DIAGNOSIS. Performed By: #### H STROPN ####[facility] Bsyvuvmokk[address] [place] [address]Dr. Yuki Diaz BNPon 01-24-2022 Natriuretic peptide B (Bld) [Mass/Vol] 3429.0 pg/mL Critically high <=1,800.0 [facility] Comment on above: Performed By: #### HSTROPN, CMADM, BNP # ###[facility] Sykjdmvnei88[address] [place], [place] [address]Dr. Yuki Diaz CARDIAC RACHEL ADMITon 022 CK [Catalytic activity/Vol] 108 U/L Normal 39-308 [facility] Comment on above: Performed By: #### HSTROPN, CMADM, BNP # ###[facility] Marxxfnopu[address] [place], [place] [address]Dr. Yuki Diaz CK.MB [Mass/Vol] 2.44 ng/mL Normal <=3.60 [facility] Comment on above: Performed By: #### HSTROPN, CMADM, BNP # ###[facility] Viridtqvvu39[address] [place], [place] [address]Dr. Yuki Diaz DILSHAD 177 ng/mL Critically high 16-96 [facility] Comment on above: Performed By: #### HSTROPN, CMADM, BNP # ###[facility] Rlreujalel[address] [place] [address]Dr. Yuki Diaz CBC AUTO DIFFon 01-24-2022 BASO # 0.0 103/ul Normal 0.0-0.1 [facility] Comment on above: Performed By: #### CBC ####[facility] Avmnjsaxpn[address] [place], [place] [address]Dr. Yuki Diaz Basophils/100 WBC (Bld) 0.3 % Normal 0.2-2.0 [facility] Comment on above: Performed By: #### CBC ####[facility] ital Izollybryh3599 [address]Bebo Yuki Diaz EO # 0.2 103/ul Normal 0.0-0.7 [facility] Comment on above: Performed By: #### CBC ####[facility] ital Kwodhkhydk3285 [address] Yuki Diaz Eosinophils/100 WBC (Bld) 1.7 % Normal 0.9-7.0 [facility] Comment on above: Performed By: #### CBC ####[facility] ital Zqoeoqwskp5[address] Yuki Diaz Erythrocyte distribution width (RBC) [Ratio] 13.5 % Normal 11.0-15.0 [facility] Comment on above: Performed By: #### CBC ####[facility] Bpnfyoyjlr5[address] Monsealyssa Diaz Hematocrit (Bld) [Volume fraction] 33.3 % Critically low 42.0-54.0 [facility] Comment on above: Performed By: #### CBC ####[facility] Pdnlvlazwl[address] [place], [place] [address]Bebo Yuki Diaz Hemoglobin (Bld) [Mass/Vol] 10.8 g/dL Critically low 14.0-18.0 [facility] Comment on above: Performed By: #### CBC ####[facility] Nrxkdrmcpx05[address] Yuki Diaz IG # 0.04 10e3/ul Critically high 0.00-0.03 [facility] Comment on above: Performed By: #### CBC ####[facility] Enpygqibno4209 [address]Bebo Monsealyssa Diaz IG % 0.4 % Normal 0.0-0.5 [facility] Comment on above: Performed By: #### CBC ####[facility] Brgypk[address]oy[address] [place], [place] [address]Bebo Diaz LYMPH # 1.3 103/ul Normal 1.2-3.8 [facility] Comment on above: Performed By: #### CBC ####[facility] ital Inotaaimru6182 [place] [address]DrBebo Daiz Lymphocytes/100 WBC (Bld) 13.8 % Critically low 20.5-60.0 [facility] Comment on above: Performed By: #### CBC ####[facility] ital Yilnqmuptf9[address] [place] [address]DrBebo Diaz MANUAL DIFF REQ NO Normal [facility] Comment on above: Performed By: #### CBC ####[facility] ital Pjbtqqhbda6137 [place] [address]DrBebo Diaz MCH (RBC) [Entitic mass] 32.8 pg Normal 25.9-34.0 [facility] Comment on above: Performed By: #### CBC ####[facility] Rqkrpklcmj7772 [place] [address]DrBebo Diaz MCHC (RBC) [Mass/Vol] 32.4 g/dL Normal 29.9-35.2 [facility] Comment on above: Performed By: #### CBC ####[facility] Ziznftnuua7270 [place] [address]DrBebo Diaz MCV (RBC) [Entitic vol] 101.2 fL Critically high 80.0-94.0 [facility] Comment on above: Performed By: #### CBC ####[facility] ital Wyvmzokbki6603 [place] [address]Dr. Yuki Diaz MONO # 0.8 103/ul Normal 0.3-0.8 [facility] Comment on above: Performed By: #### CBC ####[facility] ital Uqhxsqqdgm2776 [place] [address]DrBebo Diaz Monocytes/100 WBC (Bld) 8.3 % Normal 1.7-12.0 [facility] Comment on above: Performed By: #### CBC ####[facility] ital Gkqedkgbbn5665 [place] [address]DrBebo Diaz NEUT # 7.2 103/ul Critically high 1.4-6.5 [facility] Comment on above: Performed By: #### CBC ####[facility] ital Lmmiaedbmj0328 [place] [address]Dr. Yuki Diaz Neutrophils/100 WBC (Bld) 75.5 % Critically high 43.0-75.0 [facility] Comment on above: Performed By: #### CBC ####[facility] ital Odaomhcgbp28[address] [place] [id number]. Yuki Diaz Platelet mean volume (Bld) [Entitic vol] 10.6 fL Normal 9.5-13.5 [facility] Comment on above: Performed By: #### CBC ####[facility] ital Qazcngjvnw0224 [place] [address]Dr. Yuki Diaz PLT 215 103/ul Normal 150-450 [facility] Comment on above: Performed By: #### CBC ####[facility] Tjkinspslh33[address] [place] [address]Dr. Yuki Diaz RBC 3.29 106/ul Critically low 4.70-6.10 [facility] Comment on above: Performed By: #### CBC ####[facility] Wddadowoat6680 [place] [address]Dr. Yuki Diaz WBC 9.5 103/ul Normal 4.0-11.0 [facility] Comment on above: Performed By: #### CBC ####[facility] Gpssmltzma5[address] [place] [address]Dr. Yuki Diaz Covid-19 PCR ([facility]on 01-06 SARS-CoV-2 (COVID-19) RNA JARVIS+probe Ql (Unsp spec) Not detected Normal NOT DETECTED [facility] Comment on above: Result Comment: [...] for this test is supported by the [place] of [employer] and Human Service's declaration that [...] longer be used). Performed By: #### C [facility] ####[facility] Nswzgiqttx5[address] [place] [address]Dr. Yuki Diaz PROF 14(COMP METB)on 022 Albumin [Mass/Vol] 2.8 g/dL Critically low 3.4-5.0 [facility] Comment on above: Performed By: #### CMP ####[facility] Ddoqiuiyhn[address] [place], [place] [address]Dr. Yuki Diaz Albumin/Globulin [Mass ratio] 0.8 {ratio} Normal [facility] Comment on above: Performed By: #### CMP ####[facility] ital Qgjkyczgvp0[address] [place], [place] [address]Dr. Yuki Diaz ALP [Catalytic activity/Vol] 96 U/L Normal 46-116 [facility] Comment on above: Performed By: #### CMP ####[facility] Zfdbdwwjny6[address] [place], [place] [address]Dr. Yuki Diaz ALT [Catalytic activity/Vol] 32 U/L Normal 16-63 [facility] Comment on above: Performed By: #### CMP ####[facility] ital Jonkqatbdw0[address] [place], [place] [address]Dr. Yuki Diaz Anion gap [Moles/Vol] 12.6 mmol/L Normal [facility] Comment on above: Performed By: #### CMP ####[facility] Wladekmxnn89[address] [place], [place] [address]Dr. Yuki Diaz AST [Catalytic activity/Vol] 19 U/L Normal 15-37 [facility] Comment on above: Performed By: #### CMP ####[facility] Bqfgftcelb0999 [place] [address]Dr. Yuki Diaz Bilirubin [Mass/Vol] 0.7 mg/dL Normal 0.2-1.0 [facility] Comment on above: Performed By: #### CMP ####[facility] Ugqytlfnki4900 [place] [address]Dr. Yuki Diaz Calcium [Mass/Vol] 8.2 mg/dL Critically low 8.5-10.1 [facility] Comment on above: Performed By: #### CMP ####[facility] Dhohfbtzwa6487 [place] [address]Dr. Yuki Diaz Chloride [Moles/Vol] 103 mmol/L Normal 98-107 [facility] Comment on above: Performed By: #### CMP ####[facility] Qdsfilsput4631 [place] [address]Dr. Yuki Diaz CO2 [Moles/Vol] 31.2 mmol/L Normal 21.0-32.0 [facility] Comment on above: Performed By: #### CMP ####[facility] Lyqvmwgtmt0284 [place] [address]Dr. Yuki Diaz Creatinine [Mass/Vol] 2.24 mg/dL Critically high 0.70-1.30 [facility] Comment on above: Performed By: #### CMP ####[facility] Gcnsyeuspr4618 [place] [address]Dr. Yuki Diaz EGFR-AF DJIBOUTIAN 34 mL/min/1.73m2 Critically low >=60 [facility] Comment on above: Performed By: #### CMP ####[facility] Xydqqgikzg4726 [place] [id number]. Yuki Diaz EGFR-NON AF DJIBOUTIAN 28 mL/min/1.73m2 Critically low >=60 [facility] Comment on above: Performed By: #### CMP ####[facility] Eagpyvcwfh2409 [place] [address]Dr. Yuki Diaz Globulin (S) [Mass/Vol] 3.4 g/dL Normal [facility] Comment on above: Performed By: #### CMP ####[facility] Vniblkrbwx7529 [place] [id number]. Yuki Diza Glucose [Mass/Vol] 123 mg/dL Critically high 74-106 [facility] Comment on above: Performed By: #### CMP ####[facility] Goncirvvhs4877 [place] [address]Dr. Yuki Diaz Potassium [Moles/Vol] 2.7 mmol/L Critically low 3.5-5.1 [facility] Comment on above: Performed By: #### CMP ####[facility] Akwjvmwktd4654 [place] [address]Dr. Yuki Diaz Protein [Mass/Vol] 6.2 g/dL Critically low 6.4-8.2 [facility] Comment on above: Performed By: #### CMP ####[facility] Hezjmrmaff9418 [place] [address]Dr. Yuki Diaz Sodium [Moles/Vol] 142 mmol/L Normal 136-145 [facility] Comment on above: Performed By: #### CMP ####[facility] Gxptsvitxh8083 [place] [address]Dr. Yuki Diaz Urea nitrogen [Mass/Vol] 29.0 mg/dL Critically high 7.0-18.0 [facility] Comment on above: Performed By: #### CMP ####[facility] Vgijcbvcfa3514 [place] [address]Dr. Yuki Diaz Urea nitrogen/Creatin ine [Mass ratio] 12.9 mg/mg Normal [facility] Comment on above: Performed By: #### CMP ####[facility] Cwbyjciofj7989 [place] [address]Dr. Yuki Diaz TROPONIN, HIGH SENSITIVITYon 01-24-2022 HSTROP 33.1 pg/mL Normal 4.0-76.1 [facility] Comment on above: Result Comment: CUT-OFF POINTS HAVE BEEN ESTABLISHED BASED ON THE FOURTH UNIVERSAL DEFINITIONS OF MYOCARDIALINFARCTION. THE UPPER REFERENCE LIMIT (URL) OF TROPONIN, DEFINED THE 99TH PERCENTILE OFcTnI DISTRIBUTION IN A REFERENCE POPULATION, HAS BEEN CONFIRMED THE DECISION THRESHOLDFOR MT DIAGNOSIS. Performed By: #### H STROPN, CMADM, BNP ####[facility] Kijuxezcsi1304 [place] [address]Dr. Yuki Diaz XR CHEST 1 Von 01-24-2022 XR CHEST 1 V Normal [facility] BNPon 01-12-2022 Natriuretic peptide B (Bld) [Mass/Vol] 2759.0 pg/mL Critically high <=1,800.0 [facility] Comment on above: Performed By: #### CMP, BNP ####[facility] Ciphkpodqu[address] [place], [place] [address]Dr. Yuki Diaz PROF 14(COMP METB)on 022 Albumin [Mass/Vol] 2.9 g/dL Critically low 3.4-5.0 [facility] Comment on above: Performed By: #### CMP, BNP ####[facility] Yqrimcjbvi57[address] [place], [place] [address]Dr. Yuki Diaz Albumin/Globulin [Mass ratio] 0.8 {ratio} Normal [facility] Comment on above: Performed By: #### CMP, BNP ####[facility] Qgstndlmjj30[address] [place], [place] [address]Dr. Yuki Diaz ALP [Catalytic activity/Vol] 100 U/L Normal 46-116 [facility] Comment on above: Performed By: #### CMP, BNP ####[facility] Wsbszyweqe75[address] [place], [place] [address]Dr. Yuki Diaz ALT [Catalytic activity/Vol] 43 U/L Normal 16-63 [facility] Comment on above: Performed By: #### CMP, BNP ####[facility] Pvqjrsfpzr[address] [place], [place] [address]Dr. Yuki Diaz Anion gap [Moles/Vol] 7.6 mmol/L Normal [facility] Comment on above: Performed By: #### CMP, BNP ####[facility] Xpcwrhdiyw1966[address] [place], [place] [address]Dr. Yuki Diaz AST [Catalytic activity/Vol] 22 U/L Normal 15-37 [facility] Comment on above: Performed By: #### CMP, BNP ####[facility] Aygjsmdfia68[address] [place], [place] [address]Dr. Yuki Diaz Bilirubin [Mass/Vol] 0.8 mg/dL Normal 0.2-1.0 [facility] Comment on above: Performed By: #### CMP, BNP ####[facility] Spaodeflys1082 [place] [address]Dr. Yuki Diaz Calcium [Mass/Vol] 8.0 mg/dL Critically low 8.5-10.1 [facility] Comment on above: Performed By: #### CMP, BNP ####[facility] Epraaxmvlq9800 [place] [address]Dr. Yuki Diaz Chloride [Moles/Vol] 107 mmol/L Normal 98-107 [facility] Comment on above: Performed By: #### CMP, BNP ####[facility] Fapahridbm4986 [place] [address]Dr. Yuki Diaz CO2 [Moles/Vol] 37.1 mmol/L Critically high 21.0-32.0 [facility] Comment on above: Performed By: #### CMP, BNP ####[facility] Exmdfgbptz7[address] [place], [place] [address]Dr. Yuki Diaz Creatinine [Mass/Vol] 1.94 mg/dL Critically high 0.70-1.30 [facility] Comment on above: Performed By: #### CMP, BNP ####[facility] Ivskgyamht1532 [place] [address]Dr. Yuki Diaz EGFR-AF DJIBOUTIAN 41 mL/min/1.73m2 Critically low >=60 [facility] Comment on above: Performed By: #### CMP, BNP ####[facility] Iysygncybi8686 [place] [address]Dr. Yuki Diaz EGFR-NON AF DJIBOUTIAN 34 mL/min/1.73m2 Critically low >=60 [facility] Comment on above: Performed By: #### CMP, BNP ####[facility] Mbcolrsvmg6695 [place] [address]Dr. Yuki Diaz Globulin (S) [Mass/Vol] 3.5 g/dL Normal [facility] Comment on above: Performed By: #### CMP, BNP ####[facility] Qszucmsyeo1487 [place] [address]Dr. Yuki Diaz Glucose [Mass/Vol] 76 mg/dL Normal 74-106 [facility] Comment on above: Performed By: #### CMP, BNP ####[facility] Juzcennkyg26[address] [place], [place] [address]Dr. Yuki Diaz Potassium [Moles/Vol] 3.7 mmol/L Normal 3.5-5.1 [facility] Comment on above: Performed By: #### CMP, BNP ####[facility] Rudzwwtqqb8059[address] [place], [place] [address]Dr. Yuki Diaz Protein [Mass/Vol] 6.4 g/dL Normal 6.4-8.2 [facility] Comment on above: Performed By: #### CMP, BNP ####[facility] Vcegzctcfo6[address] [place], [place] [address]Dr. Yuki Diaz Sodium [Moles/Vol] 148 mmol/L Critically high 136-145 [facility] Comment on above: Performed By: #### CMP, BNP ####[facility] Ovjwfgqdum4[address] [place], [place] [address]Dr. Yuki Diaz Urea nitrogen [Mass/Vol] 35.0 mg/dL Critically high 7.0-18.0 [facility] Comment on above: Performed By: #### CMP, BNP ####[facility] Gextdjqurd5833[address] [place], [place] [address]Dr. Yuki Diaz Urea nitrogen/Creatin ine [Mass ratio] 18.0 mg/mg Normal [facility] Comment on above: Performed By: #### CMP, BNP ####[facility] Andvdsoklj1497[address] [place], [place] [address]Dr. Yuki Diaz BNPon 12-30-2021 Natriuretic peptide B (Bld) [Mass/Vol] 4262.0 pg/mL Critically high <=1,800.0 [facility] Comment on above: Result Comment: repeated Performed By: #### C MP, BNP ####[facility] Xjiimulzow[address] [place], [place] [address]Dr. Yuki Diaz CBC AUTO DIFFon 12-30-2021 BASO # 0.0 103/ul Normal 0.0-0.1 [facility] Comment on above: Performed By: #### CBC ####[facility] Ctdwwtyunt9984 [place] [address]Dr. Yuki Diaz Basophils/100 WBC (Bld) 0.2 % Normal 0.2-2.0 [facility] Comment on above: Performed By: #### CBC ####[facility] ital Ivyzzuzkij1265[address] [place], [place] [address]Dr. Yuki Diaz EO # 0.1 103/ul Normal 0.0-0.7 [facility] Comment on above: Performed By: #### CBC ####[facility] Vucbkwxjhg086[address] [place], [place] [address]Dr. Yuki Diaz Eosinophils/100 WBC (Bld) 1.3 % Normal 0.9-7.0 [facility] Comment on above: Performed By: #### CBC ####[facility] Jbovjeinav[address] [place], [place] [address]Dr. Yuki Diaz Erythrocyte distribution width (RBC) [Ratio] 13.9 % Normal 11.0-15.0 [facility] Comment on above: Performed By: #### CBC ####[facility] Claahdcljg[address] [place], [place] [address]Dr. Yuki Diaz Hematocrit (Bld) [Volume fraction] 35.6 % Critically low 42.0-54.0 [facility] Comment on above: Performed By: #### CBC ####[facility] Dztayvglpj58[address] [place], [place] [address]Dr. Yuki Diaz Hemoglobin (Bld) [Mass/Vol] 11.6 g/dL Critically low 14.0-18.0 [facility] Comment on above: Performed By: #### CBC ####[facility] Preeyzzqyc40[address] [place], [place] [address]DrBebo Diaz IG # 0.02 10e3/ul Normal 0.00-0.03 [facility] Comment on above: Performed By: #### CBC ####[facility] Dozzmlzwnm[address] [place], [place] [address]Dr. Yuki Diaz IG % 0.2 % Normal 0.0-0.5 [facility] Comment on above: Performed By: #### CBC ####[facility] ital Uhgiypbwru6841 [place] [address]DrBebo Diaz LYMPH # 1.5 103/ul Normal 1.2-3.8 [facility] Comment on above: Performed By: #### CBC ####[facility] ital Bmschyynsa9473 [place] [address]DrBebo Diaz Lymphocytes/100 WBC (Bld) 17.6 % Critically low 20.5-60.0 [facility] Comment on above: Performed By: #### CBC ####[facility] Xudjaqgzzg7164 [place] [address]DrBebo Diaz MANUAL DIFF REQ NO Normal [facility] Comment on above: Performed By: #### CBC ####[facility] Prqbrbhjxf4053 [place] [address]DrBebo Diaz MCH (RBC) [Entitic mass] 32.3 pg Normal 25.9-34.0 [facility] Comment on above: Performed By: #### CBC ####[facility] Hlcfexanjh7830 [place] [address]DrBebo Diaz MCHC (RBC) [Mass/Vol] 32.6 g/dL Normal 29.9-35.2 [facility] Comment on above: Performed By: #### CBC ####[facility] Xlstjjnqcj5669 [place] [address]DrBebo Diaz MCV (RBC) [Entitic vol] 99.2 fL Critically high 80.0-94.0 [facility] Comment on above: Performed By: #### CBC ####[facility] Ricyeonurz2307 [place] [address]DrBebo Diaz MONO # 0.9 103/ul Critically high 0.3-0.8 [facility] Comment on above: Performed By: #### CBC ####[facility] Jrvzsviymi2875 [place] [address]DrBebo Diaz Monocytes/100 WBC (Bld) 10.9 % Normal 1.7-12.0 [facility] Comment on above: Performed By: #### CBC ####[facility] ital Mfhojccexr7043 [place] [address]DrBebo Yuki Diaz NEUT # 5.7 103/ul Normal 1.4-6.5 [facility] Comment on above: Performed By: #### CBC ####[facility] ital Srtnbuduhw2120 [place] [address]DrBebo Yuki Diaz Neutrophils/100 WBC (Bld) 69.8 % Normal 43.0-75.0 [facility] Comment on above: Performed By: #### CBC ####[facility] Xbujcswjfm7418 [place] [address]DrBebo Diaz Platelet mean volume (Bld) [Entitic vol] 10.3 fL Normal 9.5-13.5 [facility] Comment on above: Performed By: #### CBC ####[facility] Hmuuunfwtt500[address] [place] [address]Dr. Yuki Joe PLT 182 103/ul Normal 150-450 [facility] Comment on above: Performed By: #### CBC ####[facility] Iiwqeltnog9274 [place] [address]DrBebo Diaz RBC 3.59 106/ul Critically low 4.70-6.10 [facility] Comment on above: Performed By: #### CBC ####[facility] Mnkpuneqxk[address] [place] [address]DrBebo Sheaalyssa Joe WBC 8.2 103/ul Normal 4.0-11.0 [facility] Comment on above: Performed By: #### CBC ####[facility] Wjuvdpityb39[address] [place] [address]DrBebo Diaz POINT OF CARE GLUCOSEon 05-2 Glucose [Mass/Vol] 134 mg/dL Critically high 74-106 [facility] Comment on above: Performed By: #### POCGLUC ####[facility] Kgjlbxcvqg4670 [place] [address]DrBebo Diaz PROF 14(COMP METB)on 022 Albumin [Mass/Vol] 2.9 g/dL Critically low 3.4-5.0 [facility] Comment on above: Performed By: #### CMP, BNP ####[facility] Ntfqxrhvzj6755 [place] [address]Dr. Yuki Diaz Albumin/Globulin [Mass ratio] 0.9 {ratio} Normal [facility] Comment on above: Performed By: #### CMP, BNP ####[facility] Gkrgdnkakr[address] [place], [place] [address]Dr. Yuki Diaz ALP [Catalytic activity/Vol] 87 U/L Normal 46-116 [facility] Comment on above: Performed By: #### CMP, BNP ####[facility] Lixnruvhvp45[address] [place], [place] [address]Dr. Yuki Diaz ALT [Catalytic activity/Vol] 92 U/L Critically high 16-63 [facility] Comment on above: Performed By: #### CMP, BNP ####[facility] Ssuhyigdsi04[address] [place], [place] [address]Dr. Yuki Diaz Anion gap [Moles/Vol] 8.4 mmol/L Normal [facility] Comment on above: Performed By: #### CMP, BNP ####[facility] Zqushaakyt[address] [place], [place] [address]Dr. Yuki Diaz AST [Catalytic activity/Vol] 29 U/L Normal 15-37 [facility] Comment on above: Performed By: #### CMP, BNP ####[facility] Aflzcicxpw4810[address] [place], [place] [address]Dr. Yuki Diaz Bilirubin [Mass/Vol] 0.8 mg/dL Normal 0.2-1.0 [facility] Comment on above: Performed By: #### CMP, BNP ####[facility] Stcjvejspo2028[address] [place], [place] [address]Dr. Yuki Diaz Calcium [Mass/Vol] 8.3 mg/dL Critically low 8.5-10.1 [facility] Comment on above: Performed By: #### CMP, BNP ####[facility] Mmwhqegtcw9014[address] [place], [place] [address]Dr. Yuki Diaz Chloride [Moles/Vol] 105 mmol/L Normal 98-107 [facility] Comment on above: Performed By: #### CMP, BNP ####[facility] Ksuilxggfb8849 [place] [address]Dr. Yuki Diaz CO2 [Moles/Vol] 34.1 mmol/L Critically high 21.0-32.0 [facility] Comment on above: Performed By: #### CMP, BNP ####[facility] Bspxczblan2875 [place] [address]Dr. Yuki Diaz Creatinine [Mass/Vol] 1.98 mg/dL Critically high 0.70-1.30 [facility] Comment on above: Performed By: #### CMP, BNP ####[facility] Iaiaeroqbf056[address] [place], [place] [address]Dr. Yuki Diaz EGFR-AF DJIBOUTIAN 40 mL/min/1.73m2 Critically low >=60 [facility] Comment on above: Performed By: #### CMP, BNP ####[facility] Fgnrwxgpub1735[address] [place], [place] [address]Dr. Yuki Diaz EGFR-NON AF DJIBOUTIAN 33 mL/min/1.73m2 Critically low >=60 [facility] Comment on above: Performed By: #### CMP, BNP ####[facility] Lvbrgzvriy12[address] [place], [place] [address]Dr. Yuki Diaz Globulin (S) [Mass/Vol] 3.4 g/dL Normal [facility] Comment on above: Performed By: #### CMP, BNP ####[facility] Nvphzdfsxk7426 [place] [address]Dr. Yuki Diaz Glucose [Mass/Vol] 129 mg/dL Critically high 74-106 [facility] Comment on above: Performed By: #### CMP, BNP ####[facility] Sgbfrgodig7044[address] [place], [place] [address]Dr. Yuki Diaz Potassium [Moles/Vol] 3.5 mmol/L Normal 3.5-5.1 [facility] Comment on above: Performed By: #### CMP, BNP ####[facility] Iqtasbgzte4184[address] [place], [place] [address]Dr. Monsealyssa Diaz Protein [Mass/Vol] 6.3 g/dL Critically low 6.4-8.2 [facility] Comment on above: Performed By: #### CMP, BNP ####[facility] Yfygirzegk907[address] [place], [place] [address]Dr. Yuki Diaz Sodium [Moles/Vol] 144 mmol/L Normal 136-145 [facility] Comment on above: Performed By: #### CMP, BNP ####[facility] Hpbtcppxrh9030[address] [place], [place] [address]Dr. Yuki Diaz Urea nitrogen [Mass/Vol] 37.0 mg/dL Critically high 7.0-18.0 [facility] Comment on above: Performed By: #### CMP, BNP ####[facility] Gjtdalqdov6025[address] [place], [place] [address]Dr. Yuki Diaz Urea nitrogen/Creatin ine [Mass ratio] 18.7 mg/mg Normal [facility] Comment on above: Performed By: #### CMP, BNP ####[facility] Cqbfyhltrb1068[address] [place], [place] [address]Dr. Yuki Joe BNPon 12-29-2021 Natriuretic peptide B (Bld) [Mass/Vol] 2335.0 pg/mL Critically high <=1,800.0 [facility] Comment on above: Result Comment: repeated Performed By: #### C MP, BNP ####[facility] Ltewkcvrsr2567[address] [place], [place] [address]Dr. Yuki Diaz CBC AUTO DIFFon 12-29-2021 BASO # 0.0 103/ul Normal 0.0-0.1 [facility] Comment on above: Performed By: #### CBC ####[facility] ital Bfiiaoamqm6755[address] [place], [place] [address]Dr. Yuki Diaz Basophils/100 WBC (Bld) 0.3 % Normal 0.2-2.0 [facility] Comment on above: Performed By: #### CBC ####[facility] Rxrzbreyrs1396[address] [place], [place] [address]Dr. Yuki Diaz EO # 0.1 103/ul Normal 0.0-0.7 [facility] Comment on above: Performed By: #### CBC ####[facility] ital Lpulreyulc0[address] Yuki Diaz Eosinophils/100 WBC (Bld) 1.4 % Normal 0.9-7.0 [facility] Comment on above: Performed By: #### CBC ####[facility] ital Kbmawawowb8048 [address] Yuki Diaz Erythrocyte distribution width (RBC) [Ratio] 14.2 % Normal 11.0-15.0 [facility] Comment on above: Performed By: #### CBC ####[facility] Fdcxomvdmq[address] [place] [address]. Monsealyssa Diaz Hematocrit (Bld) [Volume fraction] 34.3 % Critically low 42.0-54.0 [facility] Comment on above: Performed By: #### CBC ####[facility] Strnyltgqe4830[address] [place], [place] [address]Dr. Monsealyssa Diaz Hemoglobin (Bld) [Mass/Vol] 11.0 g/dL Critically low 14.0-18.0 [facility] Comment on above: Performed By: #### CBC ####[facility] Uanfk[address] [place] [address]. Yuki Diaz IG # 0.03 10e3/ul Normal 0.00-0.03 [facility] Comment on above: Performed By: #### CBC ####[facility] Nznwkhmpdp37[address] [place], [place] [address]Dr. Yuki Diaz IG % 0.4 % Normal 0.0-0.5 [facility] Comment on above: Performed By: #### CBC ####[facility] Ilgzmhnzat[address] [place] [address]. Yuki Diaz LYMPH # 1.3 103/ul Normal 1.2-3.8 [facility] Comment on above: Performed By: #### CBC ####[facility] Ddxusmqdqw564[address] [place] [address]. Yuki Diaz Lymphocytes/100 WBC (Bld) 18.5 % Critically low 20.5-60.0 [facility] Comment on above: Performed By: #### CBC ####[facility] ital Yhwkoxkeao19[address] [place] [address]DrBebo Diaz MANUAL DIFF REQ NO Normal [facility] Comment on above: Performed By: #### CBC ####[facility] ital Ercuiglthv8207 [place] [address]DrBebo Diaz MCH (RBC) [Entitic mass] 31.7 pg Normal 25.9-34.0 [facility] Comment on above: Performed By: #### CBC ####[facility] ital Uettkwvxyw4979 [place] [address]DrBebo Diaz MCHC (RBC) [Mass/Vol] 32.1 g/dL Normal 29.9-35.2 [facility] Comment on above: Performed By: #### CBC ####[facility] Bxtnhvbwye2204 [place] [address]DrBebo Diaz MCV (RBC) [Entitic vol] 98.8 fL Critically high 80.0-94.0 [facility] Comment on above: Performed By: #### CBC ####[facility] Adwxnscugh0569[address] [place], [place] [address]DrBebo Diaz MONO # 0.7 103/ul Normal 0.3-0.8 [facility] Comment on above: Performed By: #### CBC ####[facility] ital Oqqmgxuxfp8767 [place] [address]DrBebo Diaz Monocytes/100 WBC (Bld) 10.6 % Normal 1.7-12.0 [facility] Comment on above: Performed By: #### CBC ####[facility] ital Jrnowkzxqj6524 [place] [address]DrBebo Diaz NEUT # 4.8 103/ul Normal 1.4-6.5 [facility] Comment on above: Performed By: #### CBC ####[facility] ital Dpwlafoptc4132[address] [place], [place] [address]DrBebo Diaz Neutrophils/100 WBC (Bld) 68.8 % Normal 43.0-75.0 [facility] Comment on above: Performed By: #### CBC ####[facility] ital Febpjluhwo9239 [place] [address]Dr. Yuki Diaz Platelet mean volume (Bld) [Entitic vol] 10.5 fL Normal 9.5-13.5 [facility] Comment on above: Performed By: #### CBC ####[facility] ital Ycsspyvxes5509[address] [place], [place] [address]Dr. Yuki Diaz PLT 183 103/ul Normal 150-450 [facility] Comment on above: Performed By: #### CBC ####[facility] Tidcisbobe023[address] [place], [place] [address]Dr. Monsealyssa Diaz RBC 3.47 106/ul Critically low 4.70-6.10 [facility] Comment on above: Performed By: #### CBC ####[facility] Vuqfxxufaz364[address] [place], [place] [address]Dr. Monsealyssa Joe WBC 7.0 103/ul Normal 4.0-11.0 [facility] Comment on above: Performed By: #### CBC ####[facility] Qjlkvthjqv7113[address] [place], [place] [address]Dr. Yuki Diaz CULTURE URINEon 12-29-2021 CULTURE URINE Culture Observations : NO GROWTH. Normal [facility] Comment on above: Performed By: #### URCX ####[facility] Pmuuaiemyl0017[address] [place], [place] [address]Dr. Monsealyssa Joe ECHO LIMITED STUDYon 022 ECHO LIMITED STUDY Normal [facility] POINT OF CARE GLUCOSEon 12-06 Glucose [Mass/Vol] 143 mg/dL Critically high 74-106 [facility] Comment on above: Performed By: #### POCGLUC ####[facility] Dpzodhmjbx1778[address] [place], [place] [address]Dr. Monesalyssa Joe Glucose [Mass/Vol] 141 mg/dL Critically high 74-106 [facility] Comment on above: Performed By: #### POCGLUC ####[facility] Zatlkdnlbi[address] [place], [place] [address]Dr. Yuki Diaz Glucose [Mass/Vol] 190 mg/dL Critically high 74-106 [facility] Comment on above: Performed By: #### POCGLUC ####[facility] Ufevssmzde906[address] [place], [place] [address]Dr. Yuki Diaz PROF 14(COMP METB)on 022 Albumin [Mass/Vol] 2.5 g/dL Critically low 3.4-5.0 [facility] Comment on above: Performed By: #### CMP, BNP ####[facility] Bkadlglhka4227[address] [place], [place] [address]Dr. Yuki Diaz Albumin/Globulin [Mass ratio] 0.8 {ratio} Normal [facility] Comment on above: Performed By: #### CMP, BNP ####[facility] Kiqkljfypn8774[address] [place], [place] [address]Dr. Yuki Diaz ALP [Catalytic activity/Vol] 77 U/L Normal 46-116 [facility] Comment on above: Performed By: #### CMP, BNP ####[facility] Cxzlxxczcx8738[address] [place], [place] [address]Dr. Yuki Diaz ALT [Catalytic activity/Vol] 103 U/L Critically high 16-63 [facility] Comment on above: Performed By: #### CMP, BNP ####[facility] Swjguujphe4969[address] [place], [place] [address]Dr. Yuki Diaz Anion gap [Moles/Vol] 12.3 mmol/L Normal [facility] Comment on above: Performed By: #### CMP, BNP ####[facility] Yclzjzgdtt9815[address] [place], [place] [address]Dr. Yuki Diaz AST [Catalytic activity/Vol] 41 U/L Critically high 15-37 [facility] Comment on above: Performed By: #### CMP, BNP ####[facility] Lxhwchbwdb7495[address] [place], [place] [address]Dr. Yuki Diaz Bilirubin [Mass/Vol] 0.7 mg/dL Normal 0.2-1.0 [facility] Comment on above: Performed By: #### CMP, BNP ####[facility] Texdqjagzi7484 [place] [address]Dr. Yuki Diaz Calcium [Mass/Vol] 8.2 mg/dL Critically low 8.5-10.1 [facility] Comment on above: Performed By: #### CMP, BNP ####[facility] Tuexmlrdkf2787[address] [place], [place] [address]Dr. Yuki Diaz Chloride [Moles/Vol] 108 mmol/L Critically high 98-107 [facility] Comment on above: Performed By: #### CMP, BNP ####[facility] Cluphyxlup2756[address] [place], [place] [address]Dr. Yuki Diaz CO2 [Moles/Vol] 28.4 mmol/L Normal 21.0-32.0 [facility] Comment on above: Performed By: #### CMP, BNP ####[facility] Nbhswppglk8[address] [place], [place] [address]Dr. Yuki Diaz Creatinine [Mass/Vol] 1.74 mg/dL Critically high 0.70-1.30 [facility] Comment on above: Performed By: #### CMP, BNP ####[facility] Sqbhttcief1798[address] [place], [place] [address]Dr. Yuki Diaz EGFR-AF DJIBOUTIAN 46 mL/min/1.73m2 Critically low >=60 [facility] Comment on above: Performed By: #### CMP, BNP ####[facility] Xdcudllmkj1388[address] [place], [place] [address]Dr. Yuki Diaz EGFR-NON AF DJIBOUTIAN 38 mL/min/1.73m2 Critically low >=60 [facility] Comment on above: Performed By: #### CMP, BNP ####[facility] Noguoombnp5736[address] [place], [place] [address]Dr. Yuki Diaz Globulin (S) [Mass/Vol] 3.1 g/dL Normal [facility] Comment on above: Performed By: #### CMP, BNP ####[facility] Jgfmivomki2265[address] [place], [place] [address]Dr. Yuki Diaz Glucose [Mass/Vol] 103 mg/dL Normal 74-106 [facility] Comment on above: Performed By: #### CMP, BNP ####[facility] Ckpvishgdq5648 [place] [address]Dr. Yuki Diaz Potassium [Moles/Vol] 3.7 mmol/L Normal 3.5-5.1 [facility] Comment on above: Performed By: #### CMP, BNP ####[facility] Jcqysydteu5694 [place] [address]Dr. Yuki Diaz Protein [Mass/Vol] 5.6 g/dL Critically low 6.4-8.2 [facility] Comment on above: Performed By: #### CMP, BNP ####[facility] Fkixwdsyir0625[address] [place], [place] [address]Dr. Yuki Diaz Sodium [Moles/Vol] 145 mmol/L Normal 136-145 [facility] Comment on above: Performed By: #### CMP, BNP ####[facility] Hisgtlilio0510[address] [place], [place] [address]Dr. Yuki Diaz Urea nitrogen [Mass/Vol] 33.0 mg/dL Critically high 7.0-18.0 [facility] Comment on above: Performed By: #### CMP, BNP ####[facility] Osnxexxnvv4398[address] [place], [place] [address]Dr. Yuki Diaz Urea nitrogen/Creatin ine [Mass ratio] 19.0 mg/mg Normal [facility] Comment on above: Performed By: #### CMP, BNP ####[facility] Noatqdlhqo0520[address] [place], [place] [address]Dr. Yuki Diaz BNPon 12-28-2021 Natriuretic peptide B (Bld) [Mass/Vol] 1699.0 pg/mL Normal <=1,800.0 [facility] Comment on above: Performed By: #### TSH, BNP, CMP ####[facility] Rratqbyhpr534[address] [place], [place] [address]Dr. Yuki Diaz CARDIAC RACHEL 3-6on 2 CK [Catalytic activity/Vol] 93 U/L Normal 39-308 [facility] Comment on above: Performed By: #### CMREP ####[facility] Evvgbxuoxb5959[address] [place], [place] [address]Dr. Yuki Diaz CK.MB [Mass/Vol] 2.99 ng/mL Normal <=3.60 [facility] Comment on above: Performed By: #### CMREP ####[facility] Fejakyunmw2135 [place] [address]Dr. Yuki Diaz HSTROP 30.7 pg/mL Normal 4.0-76.1 [facility] Comment on above: Result Comment: CUT-OFF POINTS HAVE BEEN ESTABLISHED BASED ON THE FOURTH UNIVERSAL DEFINITIONS OF MYOCARDIALINFARCTION. THE UPPER REFERENCE LIMIT (URL) OF TROPONIN, DEFINED THE 99TH PERCENTILE OFcTnI DISTRIBUTION IN A REFERENCE POPULATION, HAS BEEN CONFIRMED THE DECISION THRESHOLDFOR MT DIAGNOSIS. Performed By: #### C MREP ####[facility] Qltexhrikn7370 [place] [address]Dr. Yuki Joe CK [Catalytic activity/Vol] 107 U/L Normal 39-308 [facility] Comment on above: Performed By: #### CMREP ####[facility] Fqqwjxfrad7913[address] [place], [place] [address]Dr. Yuki Joe CK.MB [Mass/Vol] 3.26 ng/mL Normal <=3.60 [facility] Comment on above: Performed By: #### CMREP ####[facility] Czfgjidpiw23[address] [place], [place] [address]Dr. Yuki Diaz HSTROP 27.1 pg/mL Normal 4.0-76.1 [facility] Comment on above: Result Comment: CUT-OFF POINTS HAVE BEEN ESTABLISHED BASED ON THE [facility] UNIVERSAL DEFINITIONS OF MYOCARDIALINFARCTION. THE UPPER REFERENCE LIMIT (URL) OF TROPONIN, DEFINED THE 99TH PERCENTILE OFcTnI DISTRIBUTION IN A REFERENCE POPULATION, HAS BEEN CONFIRMED THE DECISION THRESHOLDFOR MT DIAGNOSIS. Performed By: #### C MREP ####[facility] Kxamjzazim4416 [place] [address]Dr. Yuki Diaz CARDIAC RACHEL ADMITon 022 CK [Catalytic activity/Vol] 101 U/L Normal 39-308 [facility] Comment on above: Performed By: #### CMADM ####[facility] Cjhasczdgx2499 [place] [address]Dr. Yuki Diaz CK.MB [Mass/Vol] 3.35 ng/mL Normal <=3.60 [facility] Comment on above: Performed By: #### CMADM ####[facility] Gufxlaojky[address] Yuki Diaz HSTROP 27.6 pg/mL Normal 4.0-76.1 [facility] Comment on above: Result Comment: CUT-OFF POINTS HAVE BEEN ESTABLISHED BASED ON THE FOURTH UNIVERSAL DEFINITIONS OF MYOCARDIALINFARCTION. THE UPPER REFERENCE LIMIT (URL) OF TROPONIN, DEFINED THE 99TH PERCENTILE OFcTnI DISTRIBUTION IN A REFERENCE POPULATION, HAS BEEN CONFIRMED THE DECISION THRESHOLDFOR MT DIAGNOSIS. Performed By: #### C MADM ####[facility] [address]pt[address]rwfl[address] [place] [address]. Yuki Diaz DILSHAD 153 ng/mL Critically high 16-96 [facility] Comment on above: Performed By: #### CMADM ####[facility] Cwxygzwnvk4[address] [place], [place] [address]Dr. Yuki Diaz CBC AUTO DIFFon 12-28-2021 BASO # 0.0 103/ul Normal 0.0-0.1 [facility] Comment on above: Performed By: #### CBC ####[facility] ital Htdvbjiron[address] [place] [address]. Yuki Diaz Basophils/100 WBC (Bld) 0.1 % Critically low 0.2-2.0 [facility] Comment on above: Performed By: #### CBC ####[facility] ital Aisfhhoyad[address] Yuki Diaz EO # 0.1 103/ul Normal 0.0-0.7 [facility] Comment on above: Performed By: #### CBC ####[facility] ital Gspmvqyhhd6742[address] [place], [place] [address]Dr. Yuki Diaz Eosinophils/100 WBC (Bld) 0.8 % Critically low 0.9-7.0 [facility] Comment on above: Performed By: #### CBC ####[facility] ital Xllyphirem7963[address] [place], [place] [address]Dr. Yuki Diaz Erythrocyte distribution width (RBC) [Ratio] 14.2 % Normal 11.0-15.0 [facility] Comment on above: Performed By: #### CBC ####[facility] Ieiykopjyg4072 [place] [address]Dr. Yuki Diaz Hematocrit (Bld) [Volume fraction] 38.5 % Critically low 42.0-54.0 [facility] Comment on above: Performed By: #### CBC ####[facility] Kydjyrxxam0315 [place] [address]Dr. Yuki Diaz Hemoglobin (Bld) [Mass/Vol] 12.3 g/dL Critically low 14.0-18.0 [facility] Comment on above: Performed By: #### CBC ####[facility] Lfahkhtluk3450 [place] [address]Dr. Yuki Diaz IG # 0.06 10e3/ul Critically high 0.00-0.03 [facility] Comment on above: Performed By: #### CBC ####[facility] Bnudsihwpu[address] [place], [place] [address]Dr. Yuki Diaz IG % 0.7 % Critically high 0.0-0.5 [facility] Comment on above: Performed By: #### CBC ####[facility] Cnzvrrtbgx8176 [place] [address]Dr. Yuki Diaz LYMPH # 1.0 103/ul Critically low 1.2-3.8 [facility] Comment on above: Performed By: #### CBC ####[facility] Vgmmmctxog9466 [place] [address]Dr. Yuki Diaz Lymphocytes/100 WBC (Bld) 10.7 % Critically low 20.5-60.0 [facility] Comment on above: Performed By: #### CBC ####[facility] Tdepmhuqei[address] [place], [place] [address]Dr. Yuki Diaz MANUAL DIFF REQ NO Normal [facility] Comment on above: Performed By: #### CBC ####[facility] Vptnuxjkhq0970 [place] [address]Dr. Yuki Diaz MCH (RBC) [Entitic mass] 31.9 pg Normal 25.9-34.0 [facility] Comment on above: Performed By: #### CBC ####[facility] Qvitrfmcwo3307 [place] [address]Dr. Yuki Diaz MCHC (RBC) [Mass/Vol] 31.9 g/dL Normal 29.9-35.2 [facility] Comment on above: Performed By: #### CBC ####[facility] Krwvaxbbqq6801 [place] [address]Dr. Yuki Diaz MCV (RBC) [Entitic vol] 99.7 fL Critically high 80.0-94.0 [facility] Comment on above: Performed By: #### CBC ####[facility] Ulktaozzby7868 [place] [address]Dr. Yuki Diaz MONO # 0.7 103/ul Normal 0.3-0.8 [facility] Comment on above: Performed By: #### CBC ####[facility] Enzlarmsai5096 [place] [address]Dr. Yuki Diaz Monocytes/100 WBC (Bld) 7.2 % Normal 1.7-12.0 [facility] Comment on above: Performed By: #### CBC ####[facility] Aocusiidpo6588 [place] [address]Dr. Yuki Diaz NEUT # 7.4 103/ul Critically high 1.4-6.5 [facility] Comment on above: Performed By: #### CBC ####[facility] Oqztgmpwit8007 [place] [address]Dr. Yuki Diaz Neutrophils/100 WBC (Bld) 80.5 % Critically high 43.0-75.0 [facility] Comment on above: Performed By: #### CBC ####[facility] Smmxiuetyc2297 [place] [address]Dr. Yuki Diaz Platelet mean volume (Bld) [Entitic vol] 10.0 fL Normal 9.5-13.5 [facility] Comment on above: Performed By: #### CBC ####[facility] ital Mzncgdshpg6150 [place], [place] [address]Qn. Yuki Diaz PLT 194 103/ul Normal 150-450 [facility] Comment on above: Performed By: #### CBC ####[facility] Znvearpohu8484 [place], [place] [address]Rz. Yuki Diaz RBC 3.86 106/ul Critically low 4.70-6.10 [facility] Comment on above: Performed By: #### CBC ####[facility] Rbuepzsbog3787 [place], [place] [address]Hr. Yuki Diaz WBC 9.2 103/ul Normal 4.0-11.0 [facility] Comment on above: Performed By: #### CBC ####[facility] Llfapkfejl5141 [place], [place] [address]Lm. Yuki Diaz Covid-19 PCR (CVDTB)on 12-06 SARS-CoV-2 (COVID-19) RNA JARVIS+probe Ql (Unsp spec) Not detected Normal NOT DETECTED [facility] Comment on above: Result Comment: When diagnostic testing is negative, the possibility of a false negative should be considered inthe context of a patient's recent exposures and the presence of clinical signs and symptomsconsistent with SARS-CoV-2.This test is not yet approved or cleared by the [place] Food and Drug Administration (FDA).This test was developed by [employer], [place], [place]. The performance characteristics ofthis test were validated by [facility]. The results are not intended to beused as the sole means for clinical diagnosis or patient management decisions. The [facility] is authorized under Clinical Laboratory Improvement [...] for this test is supported by the [place] of Health and Human Service's declaration that [...] be used). Performed By: #### C VDTB ####[facility] Mwepnjwhhf4167 [place] [address]Dr. Yuki Diaz ER URINE PROFILEon 2 Bilirubin Ql (U) Negative Normal NEGATIVE [facility] Comment on above: Performed By: #### ERUR ####[facility] Lxyagxfeqm2372 [place] [address]Dr. Monsealyssa Diaz Clarity (U) CLEAR Normal CLEAR [facility] Comment on above: Performed By: #### ERUR ####[facility] Shexmjxsab1890 [place] [address]Dr. Monsealyssa Diaz Color (U) YELLOW Normal YELLOW [facility] Comment on above: Performed By: #### ERUR ####[facility] Icwgqsmaaw6645 [place] [address]Dr. Yuki Diaz ERUAHD A micrscopic examina tion will be performed if indicated. Normal [facility] Comment on above: Performed By: #### ERUR ####[facility] Nhudojhdja7573 [place] [address]Dr. Monsealyssa Diaz Glucose Ql (U) Negative Normal NEGATIVE [facility] Comment on above: Performed By: #### ERUR ####[facility] Ugkxjogkbx9901 [place] [address]Dr. Monsealyssa Diaz Hemoglobin Ql (U) Negative Normal NEGATIVE [facility] Comment on above: Performed By: #### ERUR ####[facility] Gzuipszlqp2537 [place] [address]Dr. Monsealyssa Diaz Ketones Ql (U) Negative Normal NEGATIVE [facility] Comment on above: Performed By: #### ERUR ####[facility] Htoycehwax6400 [place] [address]Dr. Yuki Diaz LEUKOCYTES Negative Normal NEGATIVE [facility] Comment on above: Performed By: #### ERUR ####[facility] Fdybgzjihc3044 [place] [address]Dr. Yuki Diaz Nitrite Ql (U) Negative Normal NEGATIVE [facility] Comment on above: Performed By: #### ERUR ####[facility] Rfmcppomke1619 [place] [address]Dr. Yuki Diaz pH (U) 5.5 [pH] Normal 5-9 [facility] Comment on above: Performed By: #### ERUR ####[facility] Rjldpelpkh1922 [place] [address]Dr. Yuki Diaz Protein (U) [Mass/Vol] 100 mg/dL Abnormal NEGATIVE/ TRACE [facility] Comment on above: Performed By: #### ERUR ####[facility] Hceeaehnve0203 [place] [address]Dr. Yuki Diaz SPEC GRAVITY >=1.030 Abnormal 1.005-<=1. 025 [facility] Comment on above: Performed By: #### ERUR ####[facility] Gdxbcwxuch5624 [place] [address]Dr. Yuki Diaz UR MICRO IND NOT INDICATED Normal [facility] Comment on above: Performed By: #### ERUR ####[facility] Rcytklgawk9746 [place] [address]Dr. Yuki Diaz Urobilinogen Qn (U) 0.2 {Chidi'U}/dL Normal 0.2 - 1.0 [facility] Comment on above: Performed By: #### ERUR ####[facility] Ccdtztanpr8527 [place] [address]Dr. Yuki Diaz LACTATE/LACTIC ACIDon 2021 Lactate [Moles/Vol] 2.2 mmol/L Critically high 0.4-1.9 [facility] Comment on above: Performed By: #### LACT ####[facility] Touifmduzu5841 [place] [address]Dr. Yuki Diaz POINT OF CARE GLUCOSEon 12-06 Glucose [Mass/Vol] 183 mg/dL Critically high 74-106 [facility] Comment on above: Performed By: #### POCGLUC ####[facility] Onjkhguydd2270 [place] [address]Dr. Yuki Diaz Glucose [Mass/Vol] 167 mg/dL Critically high 74-106 [facility] Comment on above: Performed By: #### POCGLUC ####[facility] Oilcowblcp6159 [place] [address]Dr. Yuki Diaz PROF 14(COMP METB)on 022 Albumin [Mass/Vol] 2.9 g/dL Critically low 3.4-5.0 [facility] Comment on above: Performed By: #### TSH, BNP, CMP ####[facility] Rioboqpmbt3357 [place] [address]Dr. Yuki Diaz Albumin/Globulin [Mass ratio] 0.9 {ratio} Normal [facility] Comment on above: Performed By: #### TSH, BNP, CMP ####[facility] Ilcljfzgsa[address] [place], [place] [address]Dr. Yuki Diaz ALP [Catalytic activity/Vol] 83 U/L Normal 46-116 [facility] Comment on above: Performed By: #### TSH, BNP, CMP ####[facility] Jspangwqrl64[address] [place], [place] [address]Dr. Yuki Diaz ALT [Catalytic activity/Vol] 98 U/L Critically high 16-63 [facility] Comment on above: Performed By: #### TSH, BNP, CMP ####[facility] Mhfczmfkhm9610 [place] [address]Dr. Yuki Diaz Anion gap [Moles/Vol] 11.6 mmol/L Normal [facility] Comment on above: Performed By: #### TSH, BNP, CMP ####[facility] Iayrwoulwc5648 [place] [address]Dr. Yuki Diaz AST [Catalytic activity/Vol] 51 U/L Critically high 15-37 [facility] Comment on above: Performed By: #### TSH, BNP, CMP ####[facility] Wmvxxyyvxk8758 [place] [address]Dr. Yuki Diaz Bilirubin [Mass/Vol] 0.9 mg/dL Normal 0.2-1.0 [facility] Comment on above: Performed By: #### TSH, BNP, CMP ####[facility] Feaaiuakhe[address] [place], [place] [address]Dr. Yuki Diaz Calcium [Mass/Vol] 8.3 mg/dL Critically low 8.5-10.1 [facility] Comment on above: Performed By: #### TSH, BNP, CMP ####[facility] Dmfeaocwxv[address] [place], [place] [address]Dr. Yuki Diaz Chloride [Moles/Vol] 106 mmol/L Normal 98-107 [facility] Comment on above: Performed By: #### TSH, BNP, CMP ####[facility] Otgombnirl[address] [place], [place] [address]Dr. Yuki Diaz CO2 [Moles/Vol] 28.2 mmol/L Normal 21.0-32.0 [facility] Comment on above: Performed By: #### TSH, BNP, CMP ####[facility] Bkcokaetmx[address] [place], [place] [address]Dr. Yuki Diaz Creatinine [Mass/Vol] 1.84 mg/dL Critically high 0.70-1.30 [facility] Comment on above: Performed By: #### TSH, BNP, CMP ####[facility] Sjyjnfbosu[address] [place], [place] [address]Dr. Yuki Diaz EGFR-AF DJIBOUTIAN 43 mL/min/1.73m2 Critically low >=60 [facility] Comment on above: Performed By: #### TSH, BNP, CMP ####[facility] Ivvtvxtyvq[address] [place], [place] [address]Dr. Yuki Diaz EGFR-NON AF DJIBOUTIAN 36 mL/min/1.73m2 Critically low >=60 [facility] Comment on above: Performed By: #### TSH, BNP, CMP ####[facility] Hunjjnelrs38[address] [place], [place] [address]Dr. Yuki Diaz Globulin (S) [Mass/Vol] 3.3 g/dL Normal [facility] Comment on above: Performed By: #### TSH, BNP, CMP ####[facility] Bzrmriphgr5152 [place] [address]Dr. Yuki Diaz Glucose [Mass/Vol] 202 mg/dL Critically high 74-106 [facility] Comment on above: Performed By: #### TSH, BNP, CMP ####[facility] Uxfpmxdbrh7635 [place] [address]Dr. Yuki Diaz Potassium [Moles/Vol] 3.8 mmol/L Normal 3.5-5.1 [facility] Comment on above: Performed By: #### TSH, BNP, CMP ####[facility] Zagkiophmh5[address] [place], [place] [address]Dr. Yuki Diaz Protein [Mass/Vol] 6.2 g/dL Critically low 6.4-8.2 [facility] Comment on above: Performed By: #### TSH, BNP, CMP ####[facility] Bgfnnijjjj[address] [place], [place] [address]Dr. Yuki Diaz Sodium [Moles/Vol] 142 mmol/L Normal 136-145 [facility] Comment on above: Performed By: #### TSH, BNP, CMP ####[facility] Fnjcsjtqpj2[address] [place], [place] [address]Dr. Yuki Diaz Urea nitrogen [Mass/Vol] 28.0 mg/dL Critically high 7.0-18.0 [facility] Comment on above: Performed By: #### TSH, BNP, CMP ####[facility] Qoiqvetjda7[address] [place], [place] [address]Dr. Yuki Diaz Urea nitrogen/Creatin ine [Mass ratio] 15.2 mg/mg Normal [facility] Comment on above: Performed By: #### TSH, BNP, CMP ####[facility] Trjqroezus[address] [place], [place] [address]Dr. Yuki Diaz TSHon 12-28-2021 TSH 1.808 uIU/mL Normal 0.358-3.74 0 [facility] Comment on above: Performed By: #### TSH, BNP, CMP ####[facility] Tmutatvxck[address] [place], [place] [address]Dr. Yuki Diaz TSH RANGE SEE BELOW Normal [facility] Comment on above: Result Comment: <0.34 UIU/ml HYPERTHYROI D 0.34-5.60 UIU/ml EUTHYROID >5.60 UIU/ml HYPOTHYROID Performed By: #### T SH, BNP, CMP ####[facility] Nxybixvnvv2402 [place] [address]Dr. Yuki Diaz XR CHEST 1 Von 12-28-2021 XR CHEST 1 V Normal [facility] BNPon 12-22-2021 Natriuretic peptide B (Bld) [Mass/Vol] 2907.0 pg/mL Critically high <=1,800.0 [facility] Comment on above: Performed By: #### BNP ####[facility] ital Xxhvumucmw7914 [place] [address]Dr. Yuki Diaz PROF 14(COMP METB)on 022 Albumin [Mass/Vol] 3.0 g/dL Critically low 3.4-5.0 [facility] Comment on above: Performed By: #### CMP ####[facility] ital Qtqcmxkeig5298 [place] [address]Dr. Yuki Diaz Albumin/Globulin [Mass ratio] 0.9 {ratio} Normal [facility] Comment on above: Performed By: #### CMP ####[facility] ital Vmqrmlvvwg5106 [place] [address]Dr. Yuki Diaz ALP [Catalytic activity/Vol] 94 U/L Normal 46-116 [facility] Comment on above: Performed By: #### CMP ####[facility] ital Qghuvfsdqv8964 [place] [address]Dr. Yuki Diaz ALT [Catalytic activity/Vol] 39 U/L Normal 16-63 [facility] Comment on above: Performed By: #### CMP ####[facility] ital Qrygmnohpg4020 [place] [address]Dr. Yuki Diaz Anion gap [Moles/Vol] 13.4 mmol/L Normal [facility] Comment on above: Performed By: #### CMP ####[facility] ital Bogfnpctfw8812 [place] [address]Dr. Yuki Diaz AST [Catalytic activity/Vol] 11 U/L Critically low 15-37 [facility] Comment on above: Performed By: #### CMP ####[facility] Xinbkuiauf8831 [place] [address]Dr. Yuki Diaz Bilirubin [Mass/Vol] 0.5 mg/dL Normal 0.2-1.0 [facility] Comment on above: Performed By: #### CMP ####[facility] Pdktcqfzbj3915 [place] [address]Dr. Yuki Diaz Calcium [Mass/Vol] 8.5 mg/dL Normal 8.5-10.1 [facility] Comment on above: Performed By: #### CMP ####[facility] ital Xemgxtmzgl5925 [place] [address]Dr. Yuki Joe Chloride [Moles/Vol] 110 mmol/L Critically high 98-107 [facility] Comment on above: Performed By: #### CMP ####[facility] Yxjvxofxsy7194 [place] [address]Dr. Yuki Joe CO2 [Moles/Vol] 26.1 mmol/L Normal 21.0-32.0 [facility] Comment on above: Performed By: #### CMP ####[facility] Mpcztzqhna2573 [place] [address]Dr. Yuki Joe Creatinine [Mass/Vol] 1.71 mg/dL Critically high 0.70-1.30 [facility] Comment on above: Performed By: #### CMP ####[facility] ital Brtjkgooha8247 [place] [address]Dr. Yuki Joe EGFR-AF DJIBOUTIAN 47 mL/min/1.73m2 Critically low >=60 [facility] Comment on above: Performed By: #### CMP ####[facility] ital Wtgomimmuo1413 [place] [address]Dr. Monsealyssa Joe EGFR-NON AF DJIBOUTIAN 39 mL/min/1.73m2 Critically low >=60 [facility] Comment on above: Performed By: #### CMP ####[facility] ital Gnlemdicsr0092 [place] [address]Dr. Yuki Joe Globulin (S) [Mass/Vol] 3.4 g/dL Normal [facility] Comment on above: Performed By: #### CMP ####[facility] ital Wqwhptdisd7674 [place] [address]Dr. Yuki Diaz Glucose [Mass/Vol] 211 mg/dL Critically high 74-106 [facility] Comment on above: Performed By: #### CMP ####[facility] ital Ymyadivwyb9046 [place] [address]Dr. Yuki Diaz Potassium [Moles/Vol] 4.5 mmol/L Normal 3.5-5.1 [facility] Comment on above: Performed By: #### CMP ####[facility] ital Phvlanzkgy7898 [place] [address]Dr. Yuki Diaz Protein [Mass/Vol] 6.4 g/dL Normal 6.4-8.2 [facility] Comment on above: Performed By: #### CMP ####[facility] ital Ttjehhmqoy5239 [place] [address]Dr. Yuki Diaz Sodium [Moles/Vol] 145 mmol/L Normal 136-145 [facility] Comment on above: Performed By: #### CMP ####[facility] ital Fvyqyxpxyn0079 [place] [address]Dr. Yuki Diaz Urea nitrogen [Mass/Vol] 33.0 mg/dL Critically high 7.0-18.0 [facility] Comment on above: Performed By: #### CMP ####[facility] Eulsfzdeyn4726 [place] [address]Dr. Yuki Diaz Urea nitrogen/Creatin ine [Mass ratio] 19.3 mg/mg Normal [facility] Comment on above: Performed By: #### CMP ####[facility] ital Yxtgvndmgm9096 [place] [address]Dr. Yuki Joe Lab Reportson 12-15-2021 Lab Reports [id number]:[id number] [facility] BASIC METABOLIC PANELon 08-0 Calcium mass conc 9.1 mg/dL Normal 8.6-10.3 [facility] Comment on above: Order Comment: No: Do not add to previou s draw Performed By: #### 5 0103 ####[facility] [place] [address], [facility] Chloride molar conc 104 mmol/L Normal 98-107 [facility] Comment on above: Order Comment: No: Do not add to previou s draw Performed By: #### 5 0103 ####[facility] [place] [address], [place] CO2 molar conc 27 mmol/L Normal 21-31 [facility] Comment on above: Order Comment: No: Do not add to previou s draw Performed By: #### 5 0103 ####[facility] [place] [address], [place] Creatinine mass conc 1.29 mg/dL Normal 0.70-1.30 [facility] Comment on above: Order Comment: No: Do not add to previou s draw Performed By: #### 5 0103 ####[facility] [place] [address], [place] GFR/1.73 sq M predicted among blacks MDRD vol rate/area (S/P/Bld) mL/min/{1.73_m2} Normal >60 [facility] Comment on above: Order Comment: No: Do not add to previou s draw Result Comment: Calc ulation may not be valid for patients over 70 years Performed By: #### 5 0103 ####[facility] [place] [address], [place] GFR/1.73 sq M predicted among non-blacks MDRD vol rate/area (S/P/Bld) 54 ml/min/1.73sq m Abnormal >60 [facility] Comment on above: Order Comment: No: Do not add to previou s draw Result Comment: Calc ulation may not be valid for patients over 70 years Performed By: #### 5 0103 ####[facility] [place] [address], [facility] Glucose mass conc 109 mg/dL High 70-100 [facility] Comment on above: Order Comment: No: Do not add to previou s draw Performed By: #### 5 0103 ####[facility] [place] [address], [facility] Potassium molar conc 3.6 mmol/L Normal 3.5-5.1 [facility] Comment on above: Order Comment: No: Do not add to previou s draw Performed By: #### 5 0103 ####[facility] [place] [address], [facility] Sodium molar conc 139 mmol/L Normal 136-145 [facility] Comment on above: Order Comment: No: Do not add to previou s draw Performed By: #### 5 0103 ####[facility] [place] [address], [facility] Urea nitrogen mass conc 19 mg/dL Normal 7-25 [facility] Comment on above: Order Comment: No: Do not add to previou s draw Performed By: #### 5 0103 ####[facility] CBC COMPLETE BLOOD COUNTon 0 - Erythrocyte distribution width Auto Ratio (RBC) 13.2 % Normal 11.5-15.0 [facility] Comment on above: Order Comment: No: Do not add to previou s draw Performed By: #### 5 0103 ####[facility] [place] [address], [facility] Hematocrit Auto Volume Fraction (Bld) 42.2 % Normal 39.0-50.0 [facility] Comment on above: Order Comment: No: Do not add to previou s draw Performed By: #### 5 0103 ####[facility] Hemoglobin mass conc (Bld) 13.9 g/dL Normal 13.0-17.0 [facility] Comment on above: Order Comment: No: Do not add to previou s draw Performed By: #### 5 0103 ####[facility] MCH Auto Entitic mass (RBC) 29.7 pg Normal 27.0-33.0 [facility] Comment on above: Order Comment: No: Do not add to previou s draw Performed By: #### 5 0103 ####[facility] [facility] MCHC Auto mass conc (RBC) 32.9 g/dL Normal 32.0-35.0 [facility] Comment on above: Order Comment: No: Do not add to previou s draw Performed By: #### 5 0103 ####[facility] MCV Auto Entitic volume (RBC) 90.2 fL Normal 82.0-98.0 [facility] Comment on above: Order Comment: No: Do not add to previou s draw Performed By: #### 5 0103 ####[facility] [facility] Nucleated RBC/100 WBC Ratio (Bld) 0 % Normal 0-0 [facility] Comment on above: Order Comment: No: Do not add to previou s draw Performed By: #### 5 0103 ####[facility] [place] [address], [facility] PLAT CNT 226 10*3/uL Normal 150-400 [facility] Comment on above: Order Comment: No: Do not add to previou s draw Performed By: #### 5 0103 ####[facility] RBC Auto #/vol (Bld) 4.68 10*6/uL Normal 4.20-5.70 [facility] Comment on above: Order Comment: No: Do not add to previou s draw Performed By: #### 5 0103 ####[facility] WBC Auto #/vol (Bld) 6.80 10*3/uL Normal 4.00-10.60 [facility] Comment on above: Order Comment: No: Do not add to previou s draw Performed By: #### 5 0103 ####[facility] Cardiovascular Lab Reporton 03-10-2018 Cardiovascular Lab Report [facility] Patient Name: [facility] MR #: [id number] Physician: Oren Zafar M.D.Medicine Service Date: 03/09/2018Division of Birthdate: 2Cardiology Room #: 3CD [id number] CardiovascularServic[place] [address]Phone Fax Cardiovascular Laboratory ReportCARDIAC CATHETERIZATION REPORTINDICATION: Sheng [...] signed informed consent. He was brought to phlebotomy lab assistant in a fasting state.The right groin area was prepped and draped in usual fashion. Usingmicropuncture technique, the right common femoral artery was accessed. Theinner cannula was advanced, limited femoral angiography was performed.Followed by upsizing to a 6-Stateless x 11 cm sheath. Bilateral selectivecoronary angiography was then performed using 6-Stateless JL4 and NY6dxulnknndf catheters. The 6-Stateless JR4 diagnostic catheter was used toselectively engage the radial graft to the OM2 and saphenous venous graftto the PDA branch. Angiography was performed. Catheter was removed. A6-Stateless GEOVANNY catheter was used to selectively engage the left subclavianartery and then selectively engage the left internal mammary artery.Angiography was performed. Catheter was removed.Heparin was administered intravenously and therapeutic ACT confirmed duringthe procedure. A 6-Stateless XB 3.0 guiding catheter was advanced and used toengage the left main coronary ostium. A Brethren wire was advanced into thedistal circumflex. Balloon angioplasty in the mid circumflex was performedusing Emerge 3.0 x 15 mm balloon inflated at 10 atmospheres. Angiographyof this revealed suboptimal result. Therefore, a Synergy 3.0 x 24 mmdrug-eluting stent was deployed at 12 atmospheres and post dilated using NCQuantum [place] 3.0 x 20 mm noncompliant balloon inflated at 18 atmospheresthroughout the length of the stent. Angiography after administration ofintracoronary nitroglycerin showed excellent result with reduction of thestenosis to 0%. No evidence of dissection or perforation. The guidingcatheter was removed. The right femoral arteriotomy was managed with a6-Stateless Angio-Seal device with good hemostasis. He was [...] The distal LAD has moderate diffuse disease ecddvfa02%-70% beyond the anastomosis of the VEGA graft.Circumflex [...] 03/09/2018/06:08 P/Oren Simon M.D.Date Trans: 03/10/2018 04:31 A/mmoDN_JN:[id number]: Derrick Lopze M.D. [address] [place] [address] [place] [facility] Discharge Summaryon 03-10-20 Discharge Summary MR#: [id number] [facility] Admitted: 03/08/2018 [...] as listed above, who was sent [facility] due to concernof possible ACS. Apparently, the patient [facility] and [facility], which was his presenting complaint prior toneeding his last CABG 16 years ago. EKG at [facility] showed new T-waveinversions in the inferior leads, not there on previous EKG. Firsttroponin was negative and county bailiff here at [facility], recommended to beingthe patient to be sent to [facility] for cardiac cath. The patient was admittedto Medicine on step-down service and Cardiology was consulted. The patientpreviously had stress test within the past 2 years, which was negative andrecent echocardiogram per patient history, which was performed 6 months agoshowed improvement regarding wall motion abnormalities and ejectionfraction. The patient was taken to phlebotomy lab assistant following day after admission,revealing patent 3/3 bypass [...] taking and to discuss high-intensity statinwith his county bailiff, which he will be follow up with [...] Signed by:Zayra Ramirez MD 03/13/2018 11:23 P ____Zyara Ramirez MD I personally saw this patient on the day of the encounter, performed thekey portion(s) of the service and participated in the management andconfirm the resident's documentation. Please note there may be anadditional personal documentation from me. Date Dict: 03/10/2018/12:04 P/TAYLOR Lua-CDate Trans: 03/10/2018 07:17 P/Esdras_JN:[id number]: Derrick Lopez M.D. [address] [place] [address] Normal [facility] POC GLUCOSE LABon 03-10-2018 Glucose mass conc 256 mg/dL High 70-100 [facility] Comment on above: Performed By: #### 25436, 31854, 11093, 30267, 81306 ####[facility] [place] [address], [facility] Glucose mass conc 160 mg/dL High 70-100 [facility] Comment on above: Performed By: #### 15931, 32400, 39075, 29668, 91840 ####[facility] [place] [address], [facility] BASIC METABOLIC PANELon Calcium mass conc 9.1 mg/dL Normal 8.6-10.3 [facility] Comment on above: Order Comment: No: Do not add to previou s draw Performed By: #### 5 0103 ####[facility] [place] [address], [facility] Chloride molar conc 103 mmol/L Normal 98-107 [facility] Comment on above: Order Comment: No: Do not add to previou s draw Performed By: #### 5 0103 ####[facility] [facility] [address], [place] CO2 molar conc 28 mmol/L Normal 21-31 [facility] Comment on above: Order Comment: No: Do not add to previou s draw Performed By: #### 5 0103 ####[facility] [place] [address], [place] Creatinine mass conc 1.20 mg/dL Normal 0.70-1.30 [facility] Comment on above: Order Comment: No: Do not add to previou s draw Performed By: #### 5 0103 ####[facility] [place] [address], [facility] GFR/1.73 sq M predicted among blacks MDRD vol rate/area (S/P/Bld) mL/min/{1.73_m2} Normal >60 [facility] Comment on above: Order Comment: No: Do not add to previou s draw Result Comment: Calc ulation may not be valid for patients over 70 years Performed By: #### 5 0103 ####[facility] [place] [address], [facility] GFR/1.73 sq M predicted among non-blacks MDRD vol rate/area (S/P/Bld) 59 ml/min/1.73sq m Abnormal >60 [facility] Comment on above: Order Comment: No: Do not add to previou s draw Result Comment: Calc ulation may not be valid for patients over 70 years Performed By: #### 5 0103 ####[facility] [place] [address], [facility] Glucose mass conc 96 mg/dL Normal 70-100 [facility] Comment on above: Order Comment: No: Do not add to previou s draw Performed By: #### 5 0103 ####[facility] [facility] [address], [place] Potassium molar conc 3.7 mmol/L Normal 3.5-5.1 [facility] Comment on above: Order Comment: No: Do not add to previou s draw Performed By: #### 5 0103 ####[facility] [place] [address], [place] Sodium molar conc 140 mmol/L Normal 136-145 [facility] Comment on above: Order Comment: No: Do not add to previou s draw Performed By: #### 5 0103 ####[facility] [place] [address], [place] Urea nitrogen mass conc 19 mg/dL Normal 7-25 [facility] Comment on above: Order Comment: No: Do not add to previou s draw Performed By: #### 5 0103 ####[facility] [facility].[address] POC GLUCOSE LABon 03-09-2018 Glucose mass conc 155 mg/dL High 70-100 [facility] Comment on above: Performed By: #### 55079 ####[facility] [facility] Glucose mass conc 91 mg/dL Normal 70-100 [facility] Comment on above: Performed By: #### 76769 ####[facility] [facility].[address] Glucose mass conc 107 mg/dL High 70-100 [facility] Comment on above: Performed By: #### 23691 ####[facility] [facility].[address] Glucose mass conc 115 mg/dL High 70-100 [facility] Comment on above: Performed By: #### 55081 ####[facility] [facility].[address] UFH HEPARIN ASSAYon 03-09-20 18 UNFRACTIONATED HEPARIN 0.42 IU/mL Normal 0.30-0.70 [facility] Comment on above: Result Comment: Rivaroxaban and Apixaban will interfere with the anti Xa assay used tomonitor UFH and LMWH. Performed By: #### 5 0103 ####[facility] [facility] [place] [address], [facility] UNFRACTIONATED HEPARIN 0.27 IU/mL Low 0.30-0.70 [facility] Comment on above: Result Comment: Rivaroxaban and Apixaban will interfere with the anti Xa assay used tomonitor UFH and LMWH. Performed By: #### 5 0103 ####[facility] [facility].[address] APTTon 03-08-2018 aPTT Coag time (Bld) 68.3 s High 25.0-35.0 [facility] Comment on above: Order Comment: No: [...] UFH <0.1 Performed By: #### 5 7307, 70387 ####[facility] BASIC METABOLIC PANELon Calcium mass conc 9.4 mg/dL Normal 8.6-10.3 [facility] Comment on above: Order Comment: No: Do not add to previou s draw Performed By: #### 9 9909, 91363, 97258, 13675, 24714 ####[facility] [facility] [place] [address], [facility] Chloride molar conc 105 mmol/L Normal 98-107 [facility] Comment on above: Order Comment: No: Do not add to previou s draw Performed By: #### 9 9909, 54845, 62495, 75523, 56564 ####[facility] [facility].[address] CO2 molar conc 28 mmol/L Normal 21-31 [facility] Comment on above: Order Comment: No: Do not add to previou s draw Performed By: #### 9 9909, 38463, 34192, 65834, 48846 ####[facility] [facility] [place] [address], [facility] Creatinine mass conc 1.13 mg/dL Normal 0.70-1.30 [facility] Comment on above: Order Comment: No: Do not add to previou s draw Performed By: #### 9 9909, 28181, 23307, 02995, 44298 ####[facility] [facility] [place] [address], [facility] GFR/1.73 sq M predicted among blacks MDRD vol rate/area (S/P/Bld) mL/min/{1.73_m2} Normal >60 [facility] Comment on above: Order Comment: No: Do not add to previou s draw Result Comment: Calc ulation may not be valid for patients over 70 years Performed By: #### 9 9909, 58409, 54155, 16229, 35826 ####[facility] [facility] [place] [address], [facility] GFR/1.73 sq M predicted among non-blacks MDRD vol rate/area (S/P/Bld) mL/min/{1.73_m2} Normal >60 [facility] Comment on above: Order Comment: No: Do not add to previou s draw Result Comment: Calc ulation may not be valid for patients over 70 years Performed By: #### 9 9909, 17301, 19338, 91365, 26286 ####[facility] [facility] [place] [address], [facility] Glucose mass conc 108 mg/dL High 70-100 [facility] Comment on above: Order Comment: No: Do not add to previou s draw Performed By: #### 9 9909, 50014, 45279, 89962, 91991 ####[facility] [facility] [place] [address], [place] Potassium molar conc 3.7 mmol/L Normal 3.5-5.1 [facility] Comment on above: Order Comment: No: Do not add to previou s draw Performed By: #### 9 9909, 96130, 91504, 74552, 97613 ####[facility] [place] [address], [place] Sodium molar conc 141 mmol/L Normal 136-145 [facility] Comment on above: Order Comment: No: Do not add to previou s draw Performed By: #### 9 9909, 86121, 32634, 96958, 33720 ####[facility] Urea nitrogen mass conc 21 mg/dL Normal 7-25 [facility] Comment on above: Order Comment: No: Do not add to previou s draw Performed By: #### 9 9909, 66342, 77258, 67040, 56300 ####[facility] CBC W/DIFFon 03-08-2018 ABS BASOPHILS 0.0 10*3/uL Normal 0.0-0.2 [facility] Comment on above: Performed By: #### 66123 ####[facility] ABS IMM GRANS 0.0 10*3/uL Normal 0.0-0.2 [facility] Comment on above: Performed By: #### 45418 ####[place] [address] ABS NEUTROPHILS 4.4 10*3/uL Normal 1.6-7.6 [facility] Comment on above: Performed By: #### 41277 ####[facility] Basophils Auto #/vol (Bld) 0.6 % Normal 0.0-1.0 [facility] Comment on above: Performed By: #### 84132 ####[facility] Eosinophils Auto #/vol (Bld) 0.3 10*3/uL Normal 0.0-0.5 [facility] Comment on above: Performed By: #### 16382 ####[facility] [facility].[address] Eosinophils/100 WBC Auto (Bld) 4.0 % Normal 0.0-6.0 [facility] Comment on above: Performed By: #### 74929 ####[facility] Erythrocyte distribution width Auto Ratio (RBC) 13.3 % Normal 11.5-15.0 [facility] Comment on above: Performed By: #### 83918 ####[place] [address] Hematocrit Auto Volume Fraction (Bld) 41.7 % Normal 39.0-50.0 [facility] Comment on above: Performed By: #### 40418 ####[place] [address] Hemoglobin mass conc (Bld) 13.7 g/dL Normal 13.0-17.0 [facility] Comment on above: Performed By: #### 41659 ####[address] IMMATURE GRANS 0.3 % Normal 0.0-1.0 [facility] Comment on above: Performed By: #### 67869 ####[place] [address] Lymphocytes Auto #/vol (Bld) 1.7 10*3/uL Normal 1.2-4.0 [facility] Comment on above: Performed By: #### 89899 ####[place] [address] Lymphocytes/100 WBC Auto (Bld) 24.0 % Normal 20.0-45.0 [facility] Comment on above: Performed By: #### 87104 ####[facility] MCH Auto Entitic mass (RBC) 29.7 pg Normal 27.0-33.0 [facility] Comment on above: Performed By: #### 42636 ####[facility] MCHC Auto mass conc (RBC) 32.9 g/dL Normal 32.0-35.0 [facility] Comment on above: Performed By: #### 16719 ####[facility] MCV Auto Entitic volume (RBC) 90.3 fL Normal 82.0-98.0 [facility] Comment on above: Performed By: #### 35753 ####[place] [address] Monocytes Auto #/vol (Bld) 0.6 10*3/uL Normal 0.1-1.0 [facility] Comment on above: Performed By: #### 52991 ####[facility] MONOS 7.9 % Normal 5.0-12.0 [facility] Comment on above: Performed By: #### 09865 ####[place] [address] Neutrophils/100 WBC Auto (Bld) 63.2 % Normal 40.0-72.0 [facility] Comment on above: Performed By: #### 64416 ####[place] [address] Nucleated RBC/100 WBC Ratio (Bld) 0 % Normal 0-0 [facility] Comment on above: Performed By: #### 08581 ####[facility] PLAT CNT 209 10*3/uL Normal 150-400 [facility] Comment on above: Performed By: #### 30670 ####[facility] [facility].[address] RBC Auto #/vol (Bld) 4.62 10*6/uL Normal 4.20-5.70 [facility] Comment on above: Performed By: #### 26322 ####[facility] [facility].[address] WBC Auto #/vol (Bld) 6.93 10*3/uL Normal 4.00-10.60 [facility] Comment on above: Performed By: #### 54417 ####[facility] History and Physicalon 03-08 History and Physical [id number] Admitted: 03/08/2018 Date of : 1940 Attending Physician: Shiva Seay MD Room #: [id number] Discharge Date: HISTORY AND PHYSICALCHIEF COMPLAINT: Dizziness and vomiting.HISTORY OF PRESENT ILLNESS: This patient is 77-year-old male with pastmedical history of coronary artery disease, status post CABG 16 years ago,hypertension, hyperlipidemia, and diabetes, who was sent from [facility] because of possibility of ACS. The patient presented to [facility] complaining of dizziness and vomiting while he was working on [employer]. The patient stated that he had similar symptoms when he had hisheart attack 16 years ago that ended up having CABG. In the [facility], his EKG showed new T inversions in inferior leads, which theywere not there previously. The 1st troponin was negative. The ER doctorcalled his county bailiff, Dr. Simon, who [facility] The patient [...] Dict: 03/08/2018/05:06 P/Lizbeth Singh Trans: 03/08/2018 05:31 P/[id number] Normal [facility] LIVER BATTERYon 03-08-2018 Albumin mass conc 4.0 g/dL Normal 3.5-5.7 [facility] Comment on above: Order Comment: No: Do not add to previou s draw Performed By: #### 9 9909, 45155, 18005, 50803, 68072 ####[facility] [place] [address], [facility] ALKALINE PHOSPH 53 IU/L Normal 34-104 [facility] Comment on above: Order Comment: No: Do not add to previou s draw Performed By: #### 9 9909, 61366, 47041, 79202, 37485 ####[facility] [place] [address], [facility] ALT enzyme act/vol 21 U/L Normal 7-52 [facility] Comment on above: Order Comment: No: Do not add to previou s draw Performed By: #### 9 9909, 46049, 64446, 81899, 77272 ####[facility] [place] [address], [place] AST enzyme act/vol 19 U/L Normal 13-39 [facility] Comment on above: Order Comment: No: Do not add to previou s draw Performed By: #### 9 9909, 39460, 56972, 90939, 68109 ####[facility] [place] [address], [place] Bilirubin mass conc 0.8 mg/dL Normal 0.3-1.0 [facility] Comment on above: Order Comment: No: Do not add to previou s draw Performed By: #### 9 9909, 20621, 26813, 13728, 41164 ####[facility] [place] [address], [place] Bilirubin.direct mass conc 0.2 mg/dL Normal 0.0-0.2 [facility] Comment on above: Order Comment: No: Do not add to previou s draw Performed By: #### 9 9909, 93608, 30589, 40851, 32244 ####[facility] [place] [address], [facility] Protein mass conc 7.1 g/dL Normal 6.0-8.3 [facility] Comment on above: Order Comment: No: Do not add to previou s draw Performed By: #### 9 9909, 54778, 18083, 23847, 47147 ####[facility] [place] [address], [facility] MAGNESIUM BLOODon 03-08-2018 Magnesium mass conc 2.0 mg/dL Normal 1.9-2.7 [facility] Comment on above: Order Comment: No: Do not add to previou s draw Performed By: #### 9 9909, 98708, 29388, 11404, 11894 ####[facility] [place] [address], [facility] PHOSPHORUS BLOODon 8 Phosphate mass conc 3.2 mg/dL Normal 2.5-5.0 [facility] Comment on above: Order Comment: No: Do not add to previou s draw Performed By: #### 9 9909, 57947, 33632, 36159, 23425 ####[facility] [place] [address], [facility] POC GLUCOSE LABon 03-08-2018 Glucose mass conc 164 mg/dL High 70-100 [facility] Comment on above: Performed By: #### 42782 ####[facility] [place] [address], [facility] Glucose mass conc 114 mg/dL High 70-100 [facility] Comment on above: Performed By: #### 29326 ####[facility] PROTHROMBIN TIMEon 8 INR Coag RelTime (PPP) 1.11 {INR} Normal 0.91-1.16 [facility] Comment on above: Order Comment: No: [...] OF ACTION, CLINICALEFFECTIVENESS, AND OPTIMAL THERAPEUTIC RANGE. [id number];108:[id number]-246S. Performed By: #### 5 7307, 24540 ####[facility].[address] Prothrombin time (PT) Coag time (PPP) 14.3 s Normal 12.3-14.8 [facility] Comment on above: Order Comment: No: Do not add to previou s draw Result Comment: ALL RESULTS MUST BE INTERPRETED WITH RESPECT TO BLOOD DRAWING ARTIFACTOR DILUTION ERROR OF ANTICOAGULANT AT THE TIME OF SAMPLING. Performed By: #### 5 7307, 50775 ####[facility] TROPONIN-Ion 03-08-2018 Troponin I.cardiac mass conc 0.01 ng/mL Normal 0.00-0.04 [facility] Comment on above: Order Comment: No: Do not add to previou s draw Result Comment: REFE RENCE RANGES: 0.00 - 0.04 ng/ml NORMAL 0.05 - 0.50 ng/ml INDETERMINATE > 0.50 ng/ml CONSISTENT WITH AN M.I. Performed By: #### 9 9909, 78099, 02804, 52590, 51529 ####[facility] Vital Signs Date Time Vital Sign Value Performing Clinician Kristie kerr 02-15-2022 10:03-0400 Blood Pressure Location César Gordon Jr. [facility] 02-15-2022 10:03-0400 Diastolic blood pressure 66 mm[Hg] César Gordon Jr. [facility] 02-15-2022 10:03-0400 Heart rate 80 /min César Gordon Jr. [facility] 02-15-2022 10:03-0400 Respiratory rate 16 /min César Gordon Jr. [facility] 02-15-2022 10:03-0400 Systolic blood pressure 88 mm[Hg] César Gordon Jr. [facility] Encounters Encounter Date Encounter Type Care Provider Facility Start: 07-14-2023 End: 07-14-2023 ambulatory OREN SIMON [facility] Start: 03-13-2023 End: 03-13-2023 ambulatory LEATHA MARROQUIN [facility] Start: 12-15-2022 End: 12-15-2022 ambulatory HUANG YOUNGBLOOD . Facility:[facility] Start: 11-23-2022 End: 11-24-[address] DERRICK LOPEZ . Facility:[facility] Start: 10-25-2022 End: 10-27-2022 Evaluation and management of inpatient DR DERRICK LOPEZ . Facility:[facility] Start: 10-22-2022 End: 10-22-2022 ambulatory LEVAR CABA . Facility:[facility] Start: 10-13-2022 End: 10-14-[address] DERRICK LOPEZ . Facility:[facility] Start: 09-20-2022 End: 09-21-2022 ambulatory TASHA OROZCO Facility:[facility] Start: 09-20-2022 End: 09-20-2022 Patient encounter procedure TASHA OROZCO [facility] Start: 09-19-2022 End: 09-20-[address] DERRICK LOPEZ . Facility:[facility] Start: 09-12-2022 End: 09-12-2022 [facility] Start: 09-02-2022 End: 09-03-[address] [...] Start: 02-15-2022 End: 02-16-2022 ambulatory César Gordon Facility:[facility] Start: 02-15-2022 End: 07-12-2022 Patient encounter procedure César Gordon Jr. [facility] Start: 02-09-[address] DERRICK LOPEZ [...] Evaluation and management of inpatient ZAYRA RAMIREZ Facility:[facility] Procedures Date Procedure Procedure Detail Performing Clinician Start: 11-23-[address] BRIANNE LOPEZ . Comment on above: Performed By: #### V ITAD, PSASC ####[facility] [id number] [place] [address]Dr. Yuki Diaz Start: 10-25-2022 Transfusion of Nonau tologous Red Blood Cells into Peripheral Vein, Percutaneous Approach DR DERRICK LOPEZ . Start: 06-14-[address] BRIANNE LOPEZ . Comment on above: Performed By: #### P SAD ####[facility] [address] [place] [address]Mr. Yuki Diaz Start: 03-09-2018 DILATION OF 1 COR AR T WITH DRUG-ELUT INTRA, PERC APPROACH OREN JORBFERCHO Start: 03-09-2018 FLUOROSCOPY OF L INT MAMM GRAFT USING OTH CONTRAST OREN JORBFERCHO Start: 03-09-2018 FLUOROSCOPY OF MULT COR A GRAFT USING OTH CONTRAST OREN SIMON Start: 03-09-2018 FLUOROSCOPY OF MULTI PLE CORONARY ARTERIES USING OTH CONTRAST OREN SIMON Start: 03-30-2016 Cystourethroscopy [facility] dilation of urethral stricture César [...] vax César Gordon Jr. [facility] 05-13-2021 SARS-CoV-2 (COVID-19 ) mRNA BNT-162b2 vax TASHA OROZCO [facility] 05-10-2021 influenza virus vaccine, unspecified formulation TASHA OROZCO [facility] 12-05-2020 SARS-CoV-2 (COVID-19 ) mRNA BNT-162b2 vax César Gordon Jr. [facility] 11-05-2020 SARS-CoV-2 (COVID-19 ) mRNA BNT-162b2 vax César Gordon Jr. [facility] 10-02-2020 SARS-CoV-2 (COVID-19 ) mRNA BNT-162b2 vax TASHA OROZCO [facility] 09-04-2020 SARS-CoV-2 (COVID-19 ) mRNA BNT-162b2 vax TASHA OROZCO [facility] 05-06-2020 influenza virus vaccine, unspecified formulation TASHA OROZCO [facility] 05-30-2017 influenza, unspecifi ed formulation TASHA OROZCO [facility] 05-30-2017 pneumococcal conjuga te vaccine, 13 valent TASHA OROZCO [facility] 05-06-2016 influenza virus vaccine, unspecified formulation TASHA OROZCO [facility] Payers Date Payer Category Payer Private Health Insurance [id number] 1959 Self-pay 1940 Unknown [id number] 2.16.8 [id number] 1940 Unknown [id number] 2.16.8 40.1.167559.3.579.2.727 1940 Unknown [id number] 2.16.84 0.1.866476.3.579.2.593 1940 Unknown [id number] 2.16.84 0.1.134051.3.579.2.593 1942 Unknown [id number] 2.16.84 0.1.180866.3.579.2.593 1942 Unknown [id number] 2.16.84 0.1.646117.3.579.2.593 1942 Unknown [id number] 2.16.84 0.1.705016.3.579.2.593 1942 Unknown [id number] 2.16.84 0.1.008886.3.579.2.593 1942 Unknown [id number] 2.16.84 0.1.231488.3.579.2.593 1942 Unknown [id number] 2.16.84 0.1.358862.3.579.2.593 1942 Unknown [id number] 2.16.84 0.1.388180.3.579.2.593 1942 Unknown [id number] 2.16.84 0.1.264171.3.579.2.593 1942 Unknown [id number] 2.16.84 0.1.664773.3.579.2.593 1942 Unknown [id number] 2.16.84 0.1.903344.3.579.2.593 1942 Unknown [id number] 2.16.84 0.1.412021.3.579.2.593 1942 Unknown [id number] 2.16.84 0.1.753859.3.579.2.593 1942 Unknown [id number] 2.16.84 0.1.081417.3.579.2.593 1942 Unknown [id number] 2.16.84 0.1.949189.3.579.2.593 1942 Unknown [id number] 2.16.84 0.1.059969.3.579.2.593 1942 Unknown [id number] 2.16.84 0.1.359623.3.579.2.593 1942 Unknown [id number] 2.16.84 0.1.027322.3.579.2.593 1942 Unknown [id number] 2.16.84 0.1.412075.3.579.2.593 1942 Unknown [id number] 2.16.84 0.1.797951.3.579.2.593 1942 Unknown [id number] 2.16.84 0.1.589817.3.579.2.593 1942 Unknown [id number] 2.16.84 0.1.409324.3.579.2.593 1942 Unknown [id number] 2.16.84 0.1.366746.3.579.2.593 [facility] [id number] Social History Date Type Detail Facility Start: 02-15-2022 Tobacco smoking status Ex-smoker (fi nding) [facility] Sex Assigned At Male [facility] Functional Status Date Assessment Result Facility 02-15-2022 Functional Status N/A [facility] Clinical Notes 02-15-2022 to 07-14-2023 Note Date & Type Note Facility 07-14-2023 Note [facility] Subjective Sheng Bauer is a 83 y.o. year old male patient being seen for 3 mo follow up chronic systolic heart failure, CAD, and hypertension. He was admitted to [facility] in Apr 2023. Doing very well [...] unspecified Major depressive disorder, recurrent, unspecified (CMS/[facility]) Limitation of activities due to disability [...] OM) in 2001. He has history of MT in 2001. He has hypertension on treatment. He has CKD. In 2017 he was admitted to [facility] transferred [facility] with symptoms of unstable angina and new onset T-wave inversions in the inferolateral leads. Cardiac cath was done and he underwent stenting of the circumflex with Synergy TONYA on 03/09/2018. He did get admitted in December 2019 to [facility] after a tree fell on him, [...] left side. Heart (more content not included)... [facility] 03-13-2023 Note Eliquis was decrease d to 2.5 mg bid per PCP in light of CKD, bruising of extremities and noted fall earlier this year. 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 [facility] 03-13-2023 Note [facility] II-III, current ly euvolemic without exacerbation, weight is currently down from last visit and overall pt is doing well Continue GDMT- ASA, lipitor, coreg, entrestot and aldatone Diuretic therapy- bumex 2 mg daily Monitor daily weights, I&O, fluid restriction 1.5-2L/day, renal function and electrolytes [facility] 03-13-2023 Note Patient here for 6 m o follow up CAD, hypertension, CHF, and hx of DVT. He was admitted to [facility] in January 2023 for pneumonia. Then [...] All other systems reviewed and are negative. [facility] 03-13-2023 Note [facility] CARDIOLOGY PROGR ESS [...] hx of DVT. He was admitted to [facility] in March s/p fall, January 2023 [...] OM) in 2001. He has history of MT in 2001. He has hypertension on treatment. He has CKD with Cr previously around 1.5. In 2017 he was admitted to [facility] transferred from the [facility] with symptoms of unstable angina and new onset T-wave inversions in the inferolateral leads. Cardiac cath was done and he underwent stenting of the circumflex with Synergy TONYA on 03/09/2018. He did get admitted in December 2019 to [facility] after a tree fell on him, [...] in the mo (more content not included)... [facility] 09-12-2022 Note [place] [facility] Subjective Sheng Bauer is a [...] OM) in 2001. He has history of MT in 2001. He has hypertension on treatment. He has CKD with Cr previously around 1.5. In 2017 he was admitted to [facility] transferred from the [facility] with symptoms of unstable angina and new onset T-wave inversions in the inferolateral leads. Cardiac cath was done and he underwent stenting of the circumflex with Synergy TONYA on 03/09/2018. He did get admitted in December 2019 to [facility] after a tree fell on him, [...] amitriptyline (Elavil) 2 (more content not included)... [facility] 02-15-2022 Hospital Discharge instructions Patient Education [...] including vitamins, herbs, eye drops, creams, and amja-puz-mfzzymt medicines. This also includes: ?Medicines to assist [...] 08/26/2005 Document Revised: 07/06/2018 Document Reviewed: 04/30/2018 [employer] Patient Education 2020 [email or web address]. Follow Up Care 08/10/2021 09:51:10 With:Evan Ochoa MD, César Vega, URO Address: [facility] [address], [place] [address]- When:Within 6 Month(s) Comments:w/ psa [facility] Evaluation + Plan note Future Appointments Appointment Date:08/23/2022 10:30:00 AM Scheduled Provider:César Gordon Jr., MD Location:[facility] Appointment Type:URO Office Visit Diagnostic Tests PendingPSA Total 02/15/22 [facility] Hospital course Narrative No data available for this section [facility] Hospital Discharge instructions No data available for this section [facility] Progress note No data available for this section [facility] Summary Purpose Family History No Family [...] and content) DATE CREATED AUTHOR 03/19/2018 [facility] DATE CREATED AUTHOR AUTHOR'S ORGANIZ ATION 09/21/2022 [facility] DATE CREATED AUTHOR AUTHOR'S ORGANIZ ATION 12/16/2022 [facility] [place] [facility] DATE CREATED AUTHOR AUTHOR'S ORGANIZ ATION 07/17/2023 [facility] Care Team (unrecognized sect ion and content) Personnel Name: Derrick Lopez MD Address: [address] [place] [address] Personnel Name: Derrick Lopez MD Address: Address: [address] [place] [address] FOR RECORDS PERTAINING TO PATIENTS WHO ARE [...] BE BASED ON THE PRIMARY CLINICAL RECORDS. [facility] [employer] [facility]. provides no warranty or guarantee of the accuracy or completeness of information in this document.
--- NOTE | 2024-03-25 12:36 | XR_ITS ---
[place] [id number] Patient Name: JAJA FRANKLIN MRN: [id number] date: 1940 Sex: M Assigned Patient Location: ER Current Patient Location: ED.MAIN Accession/Order Number: [id number] Exam Date: 03/25/2024 13:35 Report Date: 03/25/2024 15:11 At the request of: LEVAR CABA Procedure: XR chest 1V EXAMINATION: XR chest 1V HISTORY: fluid overload COMPARISON: 03/10/2024 TECHNIQUE: AP portable FINDINGS: LUNGS: Low lung volumes. The right lung is clear. Mild left basilar infiltrate VASCULATURE: Mildly increased pulmonary vasculature PLEURA: No pneumothorax, effusion, or pleural thickening. CARDIAC: No cardiomegaly or cardiac silhouette abnormality. MEDIASTINUM: No visible mass or adenopathy. Median sternotomy wires BONES: No fracture or visible bone lesion. OTHER: Negative. XR/XR chest 1V IMPRESSION: Mild pulmonary vascular congestion without interstitial pulmonary edema Electronically authenticated by: MONY AGUILAR Date: 03/25/2024 15:11
--- NOTE | 2024-03-25 12:58 | ED.GENADUL1 ---
HPI HPI - General Adult General Chief complaint: Urogenital-Male Stated complaint: BILATERAL LEG SWELLING Time Seen by Provider: 03/25/24 12:11 Mode of arrival: ambulance Limitations: no limitations History of Present Illness HPI narrative: The patient is coming to us from a custodial facility for concern of urine retention and anasarca, the patient according to the family at the bedside has been anxious and he seemed that he also might be interested in hospice care There is swelling in the leg no shortness of breath and there is swelling in the abdomen and thighs Related Data Home Medications ?Medication ?Instructions ?Recorded ?Confirmed atorvastatin 20 mg tablet 20 mg PO .QHS 01/28/23 03/25/24 levothyroxine 50 mcg tablet 50 mcg PO .qhs 01/28/23 03/25/24 aspirin 81 mg tablet,delayed 81 mg PO DAILY 01/30/23 03/25/24 release (Adult Aspirin Regimen) amitriptyline 50 mg tablet 50 mg PO BEDTIME 04/30/23 03/25/24 bumetanide 2 mg tablet 2 mg PO .qd 02/06/24 03/25/24 insulin detemir U-100 100 unit/mL 38 unit subcut QAM 02/22/24 03/25/24 (3 mL) subcutaneous pen (Levemir FlexPen) Previous Rx's ?Medication ?Instructions ?Recorded insulin aspart U-100 100 unit/mL 2 - 14 unit (0.02 - 0.14 mL) 02/08/23 (3 mL) subcutaneous pen (Novolog subcut ACHS #15 mL FlexPen U-100 Insulin aspart) hydralazine 25 mg tablet 25 mg PO TID #90 tabs 02/09/24 benzonatate 100 mg capsule 200 mg (2 x 100 mg) PO Q8H PRN 02/24/24 Cough 3 days #6 caps amino acids-protein hydrolysate 15 1 ea PO BID #2,880 mL 03/13/24 gram-100 kcal/30 mL oral liquid pkt (Pro-Stat Sugar Free) apixaban 2.5 mg tablet (Eliquis) 2.5 mg PO BID #60 tabs 03/13/24 carvedilol 25 mg tablet 37.5 mg (1.5 x 25 mg) PO BID #90 03/13/24 tabs ferrous sulfate 325 mg (65 mg 325 mg PO BID #60 tabs 03/13/24 iron) tablet food supplemt, lactose-reduced 1 ea PO BID #5,688 mL 03/13/24 (Ensure Active Protein-Muscle oral liquid) isosorbide mononitrate 60 mg 120 mg (2 x 60 mg) PO QD #30 tabs 03/13/24 tablet,extended release 24 hr pantoprazole 40 mg tablet,delayed 40 mg PO QAM #30 tabs 03/13/24 release (Protonix) sacubitril 24 mg-valsartan 26 mg 2 tab PO BID #60 tabs 03/13/24 tablet (Entresto) Allergies Allergy/AdvReac Type Severity Reaction Status Date / Time Sulfa (Sulfonamide Allergy Intermediate pass out Verified 03/06/24 08:20 Antibiotics) spironolactone AdvReac Severe renal Verified 03/06/24 08:20 failure Opioid HPI Opioid Management Most Recent Opioid Data: Last Pain Scale 4 03/10/24 21:08 Last Pain Intensity 0 02/24/24 07:54 Last ORT Total Score 0 03/03/24 21:12 Last ORT Risk Category Low Risk 03/03/24 21:12 Review of Systems ROS Status of ROS 10 or more systems reviewed and unremarkable except as noted in history and below [facility] Medical History (Updated 03/25/24 @ 14:18 by Sonia Crawford MD) Dehydration ?E86.0 - Dehydration (ICD-10) Acute kidney injury superimposed on CKD ?N17.9 - Acute kidney failure, unspecified (ICD-10) ?N18.9 - Chronic kidney disease, unspecified (ICD-10) 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 ?E11.22 - Type 2 diabetes mellitus with diabetic chronic kidney disease (ICD-10) ?N18.30 - Chronic kidney disease, stage 3 unspecified (ICD-10) Hypothyroidism ?E03.9 - Hypothyroidism, unspecified (ICD-10) HTN (hypertension) ?I10 - Essential (primary) hypertension (ICD-10) Acute combined systolic (congestive) and diastolic (congestive) heart failure ?I50.41 - Acute combined systolic (congestive) and diastolic (congestive) heart failure (ICD-10) Frequent falls ?R29.6 - Repeated falls (ICD-10) Generalized weakness ?R53.1 - Weakness (ICD-10) Fall ?W19.XXXA - Unspecified fall, initial encounter (ICD-10) Altered mental status ?R41.82 - Altered mental status, unspecified (ICD-10) 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 ?N18.6 - End stage renal disease (ICD-10) ?D63.1 - Anemia in chronic kidney disease (ICD-10) Hypotension due to medication ?I95.2 - Hypotension due to drugs (ICD-10) Acute hypotension ?I95.9 - Hypotension, unspecified (ICD-10) Cellulitis ?L03.90 - Cellulitis, unspecified (ICD-10) Diabetes ?E11.9 - Type 2 diabetes mellitus without complications (ICD-10) Afib ?I48.91 - Unspecified atrial fibrillation (ICD-10) CHF (congestive heart failure) ?I50.9 - Heart failure, unspecified (ICD-10) Acute renal failure ?N17.9 - Acute kidney failure, unspecified (ICD-10) Peripheral neuropathy ?G62.9 - Polyneuropathy, unspecified (ICD-10) Family History (Updated 03/04/24 @ 07:22 by Kandy Huston) Father No problems noted. Brother No problems noted. Mother No problems noted. Aunt No problems noted. Social History (Updated 03/04/24 @ 07:22 by Kandy Huston) Within the past year, how often did you have a drink containing alcohol: never Score interpretation: A score less than 4 is consistent with normal alcohol consumption. Smoking status: Former smoker Non-prescribed substance use: denies use Known occupational exposures/hazards: No Highest level of school completed/degree received: 10th grade Are you now , , , , never or living with a partner: In a typical week, how many times do you talk on the telephone with family, friends, or neighbors: 3 or more times per week How often do you get together with friends or relatives: twice per week How often do you attend rastafari or gnosticist services: 1-3 times per year Do you belong to any clubs or organizations such as rastafari groups unions, fraternal or athletic groups, or school groups: no Total score: 1 Score interpretation: A score of less than or equal to 1 indicates the most socially isolated. Little interest or pleasure in doing things: several days Feeling down, depressed, or hopeless: several days Feel stressed/tense/nervous/anxious/difficulty sleeping: only a little Life stressors: recent of family or friend Do you think of yourself as: straight/heterosexual Gender Identity: male Exam Narrative Exam Narrative: Nurses notes and vital signs reviewed and patient is not hypoxic. General: Well-appearing and in no apparent distress. Skin: Warm, dry, no pallor noted. No rash. Head: Normocephalic, atraumatic. Neck: Supple, non-tender. Eye: Pupils are equal, round and EOMI. No scleral icterus. Ears, Nose, Mouth, and Throat: TM are clear, no nasal mucosal hypertrophy. Oral mucosa is moist, no posterior oropharynx erythema, uvula is mid-line Cardiovascular: Regular Rate and Rhythm without murmur, gallop or rub. Respiratory: No accessory muscle use or respiratory distress. Lungs are clear to auscultation, no wheezing, rales or rhonchi Chest Wall: no tenderness Back: No midline thoracic or lumbar vertebral tenderness. No CVA tenderness Musculoskeletal: normal ROM, no calf or popliteal tenderness, bilateral 1+ pitting edema with the patient having abrasion in both lower extremity after removing the pressure Sagar wrap Anterior tibial pulses dopplerable bilaterally GI: Abdomen is soft, distended with abdominal wall edema Neurological: A&O x4. No cranial nerve dysfunction observed. No truncal ataxia. Constitutional Vital Signs, click to edit/add: Last Vital Signs Temp 98.0 F 03/25/24 12:02 Pulse 90 03/25/24 12:02 Resp 18 03/25/24 12:02 BP 139/90 03/25/24 12:02 Pulse Ox 100 03/25/24 12:02 O2 Del Method Nasal Cannula 03/25/24 12:02 O2 Flow Rate 3 03/25/24 12:02 Course Vital Signs Vital signs: Vital Signs Temperature 98.0 F 03/25/24 12:02 Pulse Rate 90 03/25/24 12:02 Respiratory Rate 18 03/25/24 12:02 Blood Pressure 139/90 03/25/24 12:02 Pulse Oximetry 100 03/25/24 12:02 Oxygen Delivery Method Nasal Cannula 03/25/24 12:02 Oxygen Delivery Flow Rate 3 03/25/24 12:02 Temperature 98.0 F 03/25/24 12:02 Pulse Rate 90 03/25/24 12:02 Respiratory Rate 18 03/25/24 12:02 Blood Pressure 139/90 03/25/24 12:02 Pulse Oximetry 100 03/25/24 12:02 Oxygen Delivery Method Nasal Cannula 03/25/24 12:02 Oxygen Delivery Flow Rate 3 03/25/24 12:02 Medical Decision Making MDM Narrative Medical decision making narrative: The patient EKG in the ER showing A-fib with a heart rate of [address] elevation or depression The patient CBC showed no acute significant pathology with a chemistry showing elevated BUN Some elevation in the creatinine from baseline Loving catheter was placed The plan was to admit the patient for diuresis and I discussed the case with He will be admitting the patient for diuresis Lab Data Labs: Lab Results 03/25/24 Range/Units 12:59 WBC 9.4 (4.0-11.0) 10^3/uL RBC 3.16 L (4.70-6.10) 10^6/uL Hgb 10.0 L (14.0-18.0) g/dL Hct 32.0 L (42.0-54.0) % MCV 101.3 H (80.0-94.0) fL MCH 31.6 (25.9-34.0) pg MCHC 31.3 (29.9-35.2) g/dL RDW 14.4 (11.0-15.0) % Plt Count 250 (150-450) 10^3/uL MPV 10.5 (9.5-13.5) fL Neut % (Auto) 81.9 H (43.0-75.0) % Lymph % (Auto) 8.1 L (20.5-60.0) % [place] % (Auto) 7.3 (1.7-12.0) % Eos % (Auto) 2.1 (0.9-7.0) % Baso % (Auto) 0.1 L (0.2-2.0) % Neut # (Auto) 7.7 H (1.4-6.5) 10^3/uL Lymph # (Auto) 0.8 L (1.2-3.8) 10^3/uL [place] # (Auto) 0.7 (0.3-0.8) 10^3/uL Eos # (Auto) 0.2 (0.0-0.7) 10^3/uL Baso # (Auto) 0.0 (0.0-0.1) 10^3/uL Abs Immat Gran (auto) 0.05 H (0.00-0.03) 10^3/uL Imm/Tot Granulo (auto) 0.5 (0.0-0.5) % Sodium 142 (136-145) mmol/L Potassium 3.8 (3.5-5.1) mmol/L Chloride 103 (98-107) mmol/L Carbon Dioxide 32.7 H (21.0-32.0) mmol/L Anion Gap 10.1 BUN 76.0 H* (7.0-18.0) mg/dL Creatinine 2.16 H (0.70-1.30) mg/dL Est GFR ( Amer) 36 L (>=60) Est GFR (Non-Af Amer) 29 L (>=60) BUN/Creatinine Ratio 35.2 Glucose 157 H (74-106) mg/dL Calcium 8.8 (8.5-10.1) mg/dL Total Bilirubin 0.7 (0.2-1.0) mg/dL AST 27 (15-37) U/L ALT 104 H (16-63) U/L Alkaline Phosphatase 125 H (46-116) U/L Total Protein 6.6 (6.4-8.2) g/dL Albumin 2.6 L (3.4-5.0) g/dL Globulin 4.0 g/dL Albumin/Globulin Ratio 0.7 Discharge Plan Discharge Chief Complaint: Urogenital-Male Clinical Impression: Anasarca, Acute retention of urine, MARIBELL (acute kidney injury) Fluid overload Qualifiers: Hypervolemia type: unspecified Qualified Code(s): E87.70 - Fluid overload, unspecified Patient Disposition: Admitted As Inpatient Time of Disposition Decision: 14:18
[2024-03-25 13:10] LABS: Basophils Percent Auto 0.1 % (0.2-2.0); Eosinophils Absolute Auto 0.2 10^3/uL (0.0-0.7); Eosinophils Percent Auto 2.1 % (0.9-7.0); Immature Granulocytes Abs Auto 0.05 10^3/uL (0.00-0.03); Immature Granulocytes Pct Auto 0.5 % (0.0-0.5); Lymphocytes Absolute Auto 0.8 10^3/uL (1.2-3.8); Lymphocytes Percent Auto 8.1 % (20.5-60.0); Mean Corpuscular HGB Conc 31.3 g/dL (29.9-35.2); Mean Corpuscular Hemoglobin 31.6 pg (25.9-34.0); Mean Corpuscular Volume 101.3 fL (80.0-94.0); Mean Platelet Volume 10.5 fL (9.5-13.5); Monocytes Absolute Auto 0.7 10^3/uL (0.3-0.8); Monocytes Percent Auto 7.3 % (1.7-12.0); Neutrophils Absolute Auto 7.7 10^3/uL (1.4-6.5); Neutrophils Percent Auto 81.9 % (43.0-75.0); Platelet Count 250 10^3/uL (150-450); Red Blood Count 3.16 10^6/uL (4.70-6.10); Red Cell Distribution Width 14.4 % (11.0-15.0); White Blood Count 9.4 10^3/uL (4.0-11.0)
[2024-03-25 13:52] LABS: Alanine Aminotransferase 104 U/L (16-63); Albumin Level 2.6 g/dL (3.4-5.0); Alkaline Phosphatase 125 U/L (46-116); Anion Gap 10.1; Aspartate Amino Transferase 27 U/L (15-37); BUN Creatinine Ratio 35.2; Bilirubin Total 0.7 mg/dL (0.2-1.0); Calcium 8.8 mg/dL (8.5-10.1); Carbon Dioxide 32.7 mmol/L (21.0-32.0); Chloride 103 mmol/L (98-107); Estimated GFR (African America 36 (>=60); Estimated GFR (Non-African Ame 29 (>=60); Glucose 157 mg/dL (74-106); Potassium 3.8 mmol/L (3.5-5.1); Sodium 142 mmol/L (136-145); Total Protein 6.6 g/dL (6.4-8.2)
[2024-03-25 14:07] LABS: Albumin Globulin Ratio 0.7
--- NOTE | 2024-03-25 14:15 | P.HP_ITS ---
HPI H&P: HPI History of Present Illness Chief complaint: Fluid Overload Urine Retention Anasarca Narrative: Patient presented to the emergency room, increasing weight gain, patient states about 20 pounds, in ER found to have significant edema up to lower abdominal wall. Fluid on lung exam. When I saw patient up in the medical surgical floor, resting comfortably in bed and rested for the afternoon which she had not done for quite some time, denied chest pain, does have some shortness of breath but difficult to assess secondary to his lack of activity. Significant peripheral edema and pulmonary edema consistent with acute combined congestive heart failure. Patient admitted for workup and treatment of same Opioid HPI Opioid Management Most Recent Pain and Opioid Data: Last Pain Scale 4 03/10/24 21:08 Last Pain Intensity 0 02/24/24 07:54 Last Pain Assessment 03/25/24 16:00 Last MAR Pain Assessment 03/25/24 14:35 Last ORT Total Score 0 03/25/24 15:48 Last ORT Risk Category Low Risk 03/25/24 15:48 Review of Systems ROS Status of ROS 10 or more systems reviewed and unremark able except as noted in history and below [facility] Medical History (Updated 03/25/24 @ 14:18 by Sonia Crawford MD) Dehydration ?E86.0 - Dehydration (ICD-10) Acute kidney injury superimposed on CKD ?N17.9 - Acute kidney failure, unspecified (ICD-10) ?N18.9 - Chronic kidney disease, unspecified (ICD-10) 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 ?E11.22 - Type 2 diabetes mellitus with diabetic chronic kidney disease (ICD- 10) ?N18.30 - Chronic kidney disease, stage 3 unspecified (ICD-10) Hypothyroidism ?E03.9 - Hypothyroidism, unspecified (ICD-10) HTN (hypertension) ?I10 - Essential (primary) hypertension (ICD-10) Acute combined systolic (congestive) and diastolic (congestive) heart failure ?I50.41 - Acute combined systolic (congestive) and diastolic (congestive) heart failure (ICD-10) Frequent falls ?R29.6 - Repeated falls (ICD-10) Generalized weakness ?R53.1 - Weakness (ICD-10) Fall ?W19.XXXA - Unspecified fall, initial encounter (ICD-10) Altered mental status ?R41.82 - Altered mental status, unspecified (ICD-10) 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 ?N18.6 - End stage renal disease (ICD-10) ?D63.1 - Anemia in chronic kidney disease (ICD-10) Hypotension due to medication ?I95.2 - Hypotension due to drugs (ICD-10) Acute hypotension ?I95.9 - Hypotension, unspecified (ICD-10) Cellulitis ?L03.90 - Cellulitis, unspecified (ICD-10) Diabetes ?E11.9 - Type 2 diabetes mellitus without complications (ICD-10) Afib ?I48.91 - Unspecified atrial fibrillation (ICD-10) CHF (congestive heart failure) ?I50.9 - Heart failure, unspecified (ICD-10) Acute renal failure ?N17.9 - Acute kidney failure, unspecified (ICD-10) Peripheral neuropathy ?G62.9 - Polyneuropathy, unspecified (ICD-10) Family History (Updated 03/25/24 @ 16:13 by Bernadette Monsivais RN) Father No problems noted. Brother No problems noted. Mother No problems noted. Aunt No problems noted. Social History (Updated 03/04/24 @ 07:22 by Kandy Huston) Within the past year, how often did you have a drink containing alcohol: never Score interpretation: A score less than 4 is consistent with normal alcohol consumption. Smoking status: Former smoker Non-prescribed substance use: denies use Known occupational exposures/hazards: No Highest level of school completed/degree received: 10th grade Are you now , , , , never or living with a partner: In a typical week, how many times do you talk on the telephone with family, friends, or neighbors: 3 or more times per week How often do you get together with friends or relatives: twice per week How often do you attend hinduism or quaker services: 1-3 times per year Do you belong to any clubs or organizations such as hinduism groups unions, fraternal or athletic groups, or school groups: no Total score: 1 Score interpretation: A score of less than or equal to 1 indicates the most socially isolated. Little interest or pleasure in doing things: several days Feeling down, depressed, or hopeless: several days Feel stressed/tense/nervous/anxious/difficulty sleeping: only a little Life stressors: recent of family or friend Do you think of yourself as: straight/heterosexual Gender Identity: male Meds Home Medications and Allergies Home Medications ?Medication ?Instructions ?Recorded ?Confirmed ?Type atorvastatin 20 mg tablet 20 mg PO .QHS 01/28/23 03/25/24 History levothyroxine 50 mcg tablet 50 mcg PO .qhs 01/28/23 03/25/24 History aspirin 81 mg tablet,delayed 81 mg PO DAILY 01/30/23 03/25/24 History release (Adult Aspirin Regimen) insulin aspart U-100 100 unit/mL 2 - 14 unit (0.02 - 0.14 mL) 02/08/23 03/25/24 Rx (3 mL) subcutaneous pen (Novolog subcut ACHS #15 mL FlexPen U-100 Insulin aspart) amitriptyline 50 mg tablet 50 mg PO BEDTIME 04/30/23 03/25/24 History bumetanide 2 mg tablet 2 mg PO .qd 02/06/24 03/25/24 History hydralazine 25 mg tablet 25 mg PO TID #90 tabs 02/09/24 03/25/24 Rx insulin detemir U-100 100 unit/mL 38 unit subcut QAM 02/22/24 03/25/24 History (3 mL) subcutaneous pen (Levemir FlexPen) benzonatate 100 mg capsule 200 mg (2 x 100 mg) PO Q8H PRN 02/24/24 03/25/24 Rx Cough 3 days #6 caps amino acids-protein hydrolysate 15 1 ea PO BID #2,880 mL 03/13/24 03/25/24 Rx gram-100 kcal/30 mL oral liquid pkt (Pro-Stat Sugar Free) apixaban 2.5 mg tablet (Eliquis) 2.5 mg PO BID #60 tabs 03/13/24 03/25/24 Rx carvedilol 25 mg tablet 37.5 mg (1.5 x 25 mg) PO BID #90 03/13/24 03/25/24 Rx tabs ferrous sulfate 325 mg (65 mg 325 mg PO BID #60 tabs 03/13/24 03/25/24 Rx iron) tablet food supplemt, lactose-reduced 1 ea PO BID #5,688 mL 03/13/24 03/25/24 Rx (Ensure Active Protein-Muscle oral liquid) isosorbide mononitrate 60 mg 120 mg (2 x 60 mg) PO QD #30 tabs 03/13/24 03/25/24 Rx tablet,extended release 24 hr pantoprazole 40 mg tablet,delayed 40 mg PO QAM #30 tabs 03/13/24 03/25/24 Rx release (Protonix) sacubitril 24 mg-valsartan 26 mg 2 tab PO BID #60 tabs 03/13/24 03/25/24 Rx tablet (Entresto) alprazolam 0.5 mg tablet 0.5 mg PO TID PRN anxiety 03/25/24 03/25/24 History bumetanide 1 mg tablet 1 mg PO DAILY 03/25/24 03/25/24 History sertraline 50 mg tablet 50 mg PO DAILY 03/25/24 03/25/24 History Allergies Allergy/AdvReac Type Severity Reaction Status Date / Time Sulfa (Sulfonamide Allergy Intermediate pass out Verified 03/06/24 08:20 Antibiotics) spironolactone AdvReac Severe renal Verified 03/06/24 08:20 failure Exam Constitutional Vital Signs, click to edit/add: Last Vital Signs Temp 98.0 F 03/25/24 12:02 Pulse 90 03/25/24 12:02 Resp 18 03/25/24 12:02 BP 139/90 03/25/24 12:02 Pulse Ox 100 03/25/24 12:02 O2 Del Method Nasal Cannula 03/25/24 12:02 O2 Flow Rate 3 03/25/24 12:02 Documenting provider has reviewed patient's vital signs: yes Common normals: no apparent distress Chest Common normals: inspection of chest normal Respiratory Common normals: normal respiratory effort Auscultation: rales ([place] up the lung field) and diminished lung sounds GI Common normals: Normal to inspection, nondistended, normoactive bowel sounds present (Edema lower abdominal wall), soft to palpation and non-tender Extremity Common normals: normal to inspection (3+ edema bilateral lower extremities, pitting) Results Labs Labs: Short CBC 03/25/24 Range/Units 12:59 WBC 9.4 (4.0-11.0) 10^3/uL Hgb 10.0 L (14.0-18.0) g/dL Hct 32.0 L (42.0-54.0) % Plt Count 250 (150-450) 10^3/uL BMP 03/25/24 12:59 Sodium 142 Potassium 3.8 Chloride 103 Carbon Dioxide 32.7 H BUN 76.0 H* Creatinine 2.16 H Glucose 157 H Calcium 8.8 Liver Function 03/25/24 Range/Units 12:59 Total Bilirubin 0.7 (0.2-1.0) mg/dL AST 27 (15-37) U/L ALT 104 H (16-63) U/L Alkaline Phosphatase 125 H (46-116) U/L Albumin 2.6 L (3.4-5.0) g/dL Assessment and Plan Assessment and Plan (1) MARIBELL (acute kidney injury): (2) Acute retention of urine: (3) Fluid overload: Qualifiers: Hypervolemia type: unspecified Qualified Code(s): E87.70 - Fluid overload, unspecified (4) Anasarca: (5) Hypothyroidism: (6) IDDM (insulin dependent diabetes mellitus): (7) CKD stage 3 due to type 2 diabetes mellitus: (8) Frequent falls: (9) Afib: (10) CHF (congestive heart failure): Plan Admission findings: Sinus tachycardia, relative hypoxia with O2 saturation low 90s on supplemental oxygen, elevated liver function test, elevated BNP consistent with acute combined congestive heart failure given his peripheral edema and pulmonary edema. Has had echo recently, would not need to repeat that, serial troponins x 3. Check urinalysis. Acute combined congestive heart failure-Bumex drip. He is tolerated these well in the past. May need to try increasing his Entresto, we cut back on that last time due to his renal failure. Hypothyroidism-TSH significantly elevated from previous. Will add Cytomel as his T3 is relisted is low. Moderate protein calorie malnutrition-continue to work with diet management Iron deficiency anemia-monitor daily, monitor blood count closely as he is on Eliquis low-dose cut back on last time. CKD3-this is likely to deteriorate secondary to need for diuresis IDDM-insulin sliding scale Elevated liver function test likely secondary to passive congestion. History of UTI-check urinalysis for possible etiology for cause of his acute combined congestive heart failure General Anxiety disorder-continue with home medications Atrial fibrillation-controlled ventricular response, continue with current treatment plan Hypertension-continue with current medication, blood pressure well-controlled GERD-continue with Protonix Hypercholesterolemia-continue with home medications Admission findings: Patient with recurrence of his acute combined congestive heart failure, he would likely be here 3 days for IV Bumex which has been ineffective in the past. Unable to use spironolactone secondary to its effect on his kidney function. Medically necessary treatment will span 2 midnights. Inpatient status. Urinary Catheter Management Urinary Catheter Management Urethral: Cath placed during this visit: yes Urethral indwelling: Yes Reason for continuing: acute urinary retention Insertion date: 03/25/24 Insertion time: 13:19
[2024-03-25] MEDS: MORPHINE SULFATE 4 MG/ML VIAL IV (14:35)
[2024-03-25 15:01] LABS: Lactate/Lactic Acid 1.3 mmol/L (0.4-2.0)
[2024-03-25 15:03] LABS: Magnesium 1.8 mg/dL (1.8-2.4); Troponin I High Sensitivity 35.1 pg/mL (4.0-76.1)
[2024-03-25 15:10] LABS: Free T3 1.39 pg/mL (2.18-3.98)
[2024-03-25] MEDS: BUMETANIDE 10 MG in 0.9 % SODIUM CHLORIDE 160 ML 20 MG IV (16:23)
[2024-03-25 16:26] LABS: Glucometer 135 mg/dL (74-106)
--- NOTE | 2024-03-25 16:32 | ECG_ITS ---
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
[2024-03-25 18:15] LABS: Troponin I High Sensitivity 36.4 pg/mL (4.0-76.1)
[2024-03-25] MEDS: PANTOPRAZOLE SODIUM 40 MG VIAL IV (18:36)
[2024-03-25 20:02] LABS: Glucometer 82 mg/dL (74-106)
[2024-03-25] MEDS: LEVOTHYROXINE SODIUM 25 MCG TABLET 50 MCG PO (21:13)
[2024-03-25] MEDS: SACUBITRIL/VALSARTAN 24 MG-26 MG TABLET 2 TAB PO (21:13)
[2024-03-25] MEDS: ATORVASTATIN CALCIUM 20 MG TABLET PO (21:14)
[2024-03-25] MEDS: CARVEDILOL 25 MG TABLET 37.5 MG PO (21:14)
[2024-03-25] MEDS: APIXABAN 5 MG TABLET 2.5 MG PO (21:14)
[2024-03-25] MEDS: HYDRALAZINE HCL 25 MG TABLET PO (21:15)
[2024-03-25] MEDS: FERROUS SULFATE 325 MG TABLET PO (21:15)
[2024-03-25] MEDS: AMITRIPTYLINE HCL 50 MG TABLET PO (21:16)
[2024-03-25 23:24] LABS: Bilirubin Urine NEGATIVE (NEGATIVE); Blood Urine LARGE (NEGATIVE); Clarity Urine CLEAR (CLEAR); Color Urine LT. YELLOW (YELLOW); Glucose Urine UA NEGATIVE (NEGATIVE); Ketones Urine NEGATIVE (NEGATIVE); Leukocyte Esterase Urine TRACE (NEGATIVE); Nitrite Urine NEGATIVE (NEGATIVE); Protein Urine TRACE mg/dL (NEG/TRACE); Urobilinogen Urine 0.2 EU/dL (0.2-1.0); pH Urine 5.5 (5.0-9.0)
[2024-03-25 23:26] LABS: Urine Microscopic Indicated YES
[2024-03-25 23:33] LABS: Amorphous Sediment Urine FEW; Bacteria Urine MODERATE #/HPF (NONE SEEN); Cast Seen? NONE SEEN #/LPF (NONE SEEN); Crystals Seen? Seen #/HPF (None Seen); Mucus Urine NONE SEEN (NONE SEEN); Squamous Epithelial Cell Urine RARE #/LPF (NONE/RARE); Urine Culture Indicated ALREADY ORDERED; WBC Urine 0-2 #/HPF (NONE SEEN)
[2024-03-26] VITALS (20 sets, daily range): BP systolic 110–135; BP diastolic 55–80; PULSE 72–93; TEMP 36.6–36.8; O2SAT 92–97
--- NOTE | 2024-03-26 06:54 | P.PN_ITS ---
Progress Note: Subjective Subjective Interval history: No new complaints, states it is too early for him to tell if his breathing is better Exam Constitutional Vital Signs, click to edit/add: Last Vital Signs Temp 98.2 F 03/26/24 04:00 Pulse 89 03/26/24 05:42 Resp 18 03/26/24 04:00 BP 110/55 03/26/24 05:51 Pulse Ox 95 03/26/24 04:26 O2 Del Method Nasal Cannula 03/26/24 04:26 O2 Flow Rate 2 03/26/24 04:26 Documenting provider has reviewed patient's vital signs: yes Common normals: no apparent distress Chest Common normals: inspection of chest normal Respiratory Common normals: normal respiratory effort Auscultation: rales (1/4 up the lung field) and diminished lung sounds GI Common normals: Normal to inspection, nondistended, normoactive bowel sounds present (Edema lower abdominal wall), soft to palpation and non-tender Extremity Common normals: normal to inspection (2-3+ edema bilateral lower extremities, slightly better) Progress Note: Objective Labs Labs: Short CBC 03/25/24 Range/Units 12:59 WBC 9.4 (4.0-11.0) 10^3/uL Hgb 10.0 L (14.0-18.0) g/dL Hct 32.0 L (42.0-54.0) % Plt Count 250 (150-450) 10^3/uL BMP 03/25/24 12:59 Sodium 142 Potassium 3.8 Chloride 103 Carbon Dioxide 32.7 H BUN 76.0 H* Creatinine 2.16 H Glucose 157 H Calcium 8.8 Liver Function 03/25/24 Range/Units 12:59 Total Bilirubin 0.7 (0.2-1.0) mg/dL AST 27 (15-37) U/L ALT 104 H (16-63) U/L Alkaline Phosphatase 125 H (46-116) U/L Albumin 2.6 L (3.4-5.0) g/dL Urine 03/25/24 Range/Units 23:11 Urine Color Lt. yellow (YELLOW) Urine Clarity Clear (CLEAR) Urine pH 5.5 (5.0-9.0) Ur Specific [place] 1.020 (1.005-1.025) Urine Protein Trace (NEG/TRACE) mg/dL Urine Glucose (UA) Negative (NEGATIVE) mg/dL Progress Note: A&P Assessment and Plan (1) MARIBELL (acute kidney injury): (2) Acute retention of urine: (3) Fluid overload: Qualifiers: Hypervolemia type: unspecified Qualified Code(s): E87.70 - Fluid overload, unspecified (4) Anasarca: (5) Hypothyroidism: (6) IDDM (insulin dependent diabetes mellitus): (7) CKD stage 3 due to type 2 diabetes mellitus: (8) Frequent falls: (9) Afib: (10) CHF (congestive heart failure): Plan Admission findings: Sinus tachycardia, relative hypoxia with O2 saturation low 90s on supplemental oxygen, elevated liver function test, elevated BNP consistent with acute combined congestive heart failure given his peripheral edema and pulmonary edema. Has had echo recently, would not need to repeat that, serial troponins x 3. Check urinalysis. Acute combined congestive heart failure-labs pending over likely be repeat Bumex drip again today. Edema persisting. Add albumin which has been effective in the past of pulling and more fluid Hypothyroidism-TSH significantly elevated from previous. Added Cytomel on 03/25/2024 Moderate protein calorie malnutrition-continue to work with diet management Iron deficiency anemia-monitor daily, monitor blood count closely as he is on Eliquis low-dose cut back on last time.-Lab pending today CKD3-this is likely to deteriorate secondary to need for diuresis-continue with plan for diuresis unless creatinine is significantly elevated IDDM-insulin sliding scale-excellent sugar control sugar less than 120 Elevated liver function test likely secondary to passive congestion.-Check on labs but no abdominal tenderness Acute urinary retention-catheter placed, urinalysis does show moderate bacteria on a catheter specimen - will start IV antibiotics while cultures are pending History of UTI-check urinalysis for possible etiology for cause of his acute combined congestive heart failure-see above General Anxiety disorder-continue with home medications-increase Zoloft today. Atrial fibrillation-controlled ventricular response, continue with current treatment plan Hypertension-continue with current medication, blood pressure well-controlled GERD-continue with Protonix Hypercholesterolemia-continue with home medications Admission findings: Patient with recurrence of his acute combined congestive heart failure, he would likely be here 3 days for IV Bumex which has been ineffective in the past. Unable to use spironolactone secondary to its effect on his kidney function. Medically necessary treatment will span 2 midnights. Inpatient status. Likely 2 more days. Good but not great urine output with initial dose of Bumex. Urinary Catheter Management Urinary Catheter Management Urethral: Cath placed during this visit: yes Urethral indwelling: Yes Reason for continuing: acute urinary retention Insertion date: 03/25/24 Insertion time: 13:19
[2024-03-26 07:11] LABS: Basophils Percent Auto 0.2 % (0.2-2.0); Eosinophils Absolute Auto 0.2 10^3/uL (0.0-0.7); Eosinophils Percent Auto 1.7 % (0.9-7.0); Hematocrit 29.3 % (42.0-54.0); Immature Granulocytes Abs Auto 0.03 10^3/uL (0.00-0.03); Immature Granulocytes Pct Auto 0.3 % (0.0-0.5); Lymphocytes Absolute Auto 0.6 10^3/uL (1.2-3.8); Lymphocytes Percent Auto 6.7 % (20.5-60.0); Mean Corpuscular HGB Conc 30.7 g/dL (29.9-35.2); Mean Corpuscular Hemoglobin 31.9 pg (25.9-34.0); Mean Corpuscular Volume 103.9 fL (80.0-94.0); Mean Platelet Volume 10.5 fL (9.5-13.5); Monocytes Absolute Auto 0.9 10^3/uL (0.3-0.8); Monocytes Percent Auto 9.3 % (1.7-12.0); Neutrophils Absolute Auto 7.7 10^3/uL (1.4-6.5); Neutrophils Percent Auto 81.8 % (43.0-75.0); Platelet Count 209 10^3/uL (150-450); Red Blood Count 2.82 10^6/uL (4.70-6.10); Red Cell Distribution Width 14.5 % (11.0-15.0); White Blood Count 9.4 10^3/uL (4.0-11.0)
[2024-03-26 07:28] LABS: Alanine Aminotransferase 77 U/L (16-63); Albumin Globulin Ratio 0.6; Albumin Level 2.1 g/dL (3.4-5.0); Alkaline Phosphatase 110 U/L (46-116); Anion Gap 10.8; Aspartate Amino Transferase 20 U/L (15-37); BUN Creatinine Ratio 37.3; Bilirubin Total 0.5 mg/dL (0.2-1.0); Calcium 8.6 mg/dL (8.5-10.1); Carbon Dioxide 32.1 mmol/L (21.0-32.0); Chloride 109 mmol/L (98-107); Estimated GFR (African America 38 (>=60); Estimated GFR (Non-African Ame 31 (>=60); Globulin 3.3 g/dL; Glucose 119 mg/dL (74-106); Potassium 3.9 mmol/L (3.5-5.1); Sodium 148 mmol/L (136-145); Total Protein 5.4 g/dL (6.4-8.2)
[2024-03-26] MEDS: CEFTRIAXONE 1,000 MG in 0.9 % SODIUM CHLORIDE 50 ML 100 MG IV (08:40)
[2024-03-26] MEDS: APIXABAN 5 MG TABLET 2.5 MG PO ×2 (08:42→21:05)
[2024-03-26] MEDS: FERROUS SULFATE 325 MG TABLET PO (08:42)
[2024-03-26] MEDS: SACUBITRIL/VALSARTAN 24 MG-26 MG TABLET 2 TAB PO ×2 (08:42→21:05)
[2024-03-26] MEDS: SERTRALINE HCL 50 MG TABLET 100 MG PO (08:42)
[2024-03-26] MEDS: LIOTHYRONINE SODIUM 5 MCG TABLET 10 MCG PO (08:42)
[2024-03-26] MEDS: ASPIRIN 81 MG TABLET.DR PO (08:43)
[2024-03-26] MEDS: ISOSORBIDE MONONITRATE 60 MG TAB.ER.24H 120 MG PO (08:43)
[2024-03-26] MEDS: CARVEDILOL 25 MG TABLET 37.5 MG PO ×2 (08:43→21:06)
--- NOTE | 2024-03-26 09:40 | SWNOTE1 ---
Pt is from [facility]. LESLEY sent updates to [facility] at [facility]. updates included face sheet, ED note, H&P, progress notes, vitals, diagnostic imaging, nursing notes, and med list.
[2024-03-26 11:32] LABS: Glucometer 174 mg/dL (74-106)
--- NOTE | 2024-03-26 11:39 | SWNOTE1 ---
SW met with pt, pt's 2 sons, and pt's daughter. SW had a long talk with pt about pt's plan from here. SW spoke about hospice with pt. Pt did voice several times about the fear of and also about his kids and worrying about them. Pt expressed several times that he is just tired. Pt has concerns about hospice due to his and possibly other family members having hospice and it not being a good experience. SW spent nearly an hour with pt and family. At this time pt would like to speak to Dr. Lopez tomorrow to make a decision in regards to his discharge plans. SW to follow as needed.
--- NOTE | 2024-03-26 13:55 | XR_ITS ---
[facility] [place] [id number] Patient Name: JAJA FRANKLIN MRN: [id number] date: 1940 Sex: M Assigned Patient Location: [place] Current Patient Location: [place] Accession/Order Number: [id number] Exam Date: 03/26/2024 14:02 Report Date: 03/26/2024 14:30 At the request of: DERRICK AYALA Procedure: XR chest 1V EXAM: XR chest 1V HISTORY: picc placement COMPARISON: 03/25/2024 TECHNIQUE: AP portable FINDINGS: LUNGS: Low lung volumes. Mild patchy infiltrate in the left lung base VASCULATURE: Moderately increased pulmonary vasculature PLEURA: No pneumothorax, effusion, or pleural thickening. CARDIAC: Cardiomegaly MEDIASTINUM: Mediastinal and possibly related to technique and low lung inflation. Median sternotomy wires BONES: No fracture or visible bone lesion. OTHER: Right PICC catheter tip projects over the right atrium XR/XR chest 1V IMPRESSION: Pulmonary vascular congestion Left basilar infiltrate Electronically authenticated by: MONY AGUILAR Date: 03/26/2024 14:30
[2024-03-26] MEDS: ALBUMIN HUMAN 25 GM/100 ML PREMIX IV (14:55)
[2024-03-26 16:15] LABS: Glucometer 141 mg/dL (74-106)
[2024-03-26] MEDS: PANTOPRAZOLE SODIUM 40 MG VIAL IV (16:33)
[2024-03-26] MEDS: BUMETANIDE 10 MG in 0.9 % SODIUM CHLORIDE 160 ML 20 MG IV (16:33)
[2024-03-26 20:50] LABS: Glucometer 158 mg/dL (74-106)
[2024-03-26] MEDS: LEVOTHYROXINE SODIUM 25 MCG TABLET 50 MCG PO (21:05)
[2024-03-26] MEDS: AMITRIPTYLINE HCL 50 MG TABLET PO (21:06)
[2024-03-26] MEDS: HYDRALAZINE HCL 25 MG TABLET PO (21:06)
[2024-03-26] MEDS: ATORVASTATIN CALCIUM 20 MG TABLET PO (21:06)
[2024-03-27] VITALS (21 sets, daily range): BP systolic 109–137; BP diastolic 62–77; PULSE 75–94; TEMP 36.5–36.9; O2SAT 93–96
[2024-03-27 06:16] LABS: Basophils Percent Auto 0.1 % (0.2-2.0); Eosinophils Absolute Auto 0.1 10^3/uL (0.0-0.7); Eosinophils Percent Auto 0.5 % (0.9-7.0); Hematocrit 25.9 % (42.0-54.0); Hemoglobin 8.1 g/dL (14.0-18.0); Lymphocytes Absolute Auto 0.6 10^3/uL (1.2-3.8); Lymphocytes Percent Auto 5.6 % (20.5-60.0); Mean Corpuscular HGB Conc 31.3 g/dL (29.9-35.2); Mean Corpuscular Hemoglobin 31.9 pg (25.9-34.0); Mean Platelet Volume 10.4 fL (9.5-13.5); Monocytes Absolute Auto 1.3 10^3/uL (0.3-0.8); Monocytes Percent Auto 12.6 % (1.7-12.0); Neutrophils Absolute Auto 8.1 10^3/uL (1.4-6.5); Neutrophils Percent Auto 80.2 % (43.0-75.0); Platelet Count 209 10^3/uL (150-450); Red Blood Count 2.54 10^6/uL (4.70-6.10); Red Cell Distribution Width 14.5 % (11.0-15.0); White Blood Count 10.1 10^3/uL (4.0-11.0)
[2024-03-27] MEDS: ACETAMINOPHEN 500 MG TABLET 1000 MG PO (06:38)
[2024-03-27 06:52] LABS: Alanine Aminotransferase 60 U/L (16-63); Albumin Globulin Ratio 0.8; Albumin Level 2.3 g/dL (3.4-5.0); Alkaline Phosphatase 92 U/L (46-116); Anion Gap 10.4; Aspartate Amino Transferase 17 U/L (15-37); BUN Creatinine Ratio 36.9; Bilirubin Total 0.7 mg/dL (0.2-1.0); Calcium 8.4 mg/dL (8.5-10.1); Carbon Dioxide 32.1 mmol/L (21.0-32.0); Chloride 108 mmol/L (98-107); Estimated GFR (African America 39 (>=60); Estimated GFR (Non-African Ame 33 (>=60); Glucose 95 mg/dL (74-106); Potassium 3.5 mmol/L (3.5-5.1); Sodium 147 mmol/L (136-145); Total Protein 5.3 g/dL (6.4-8.2)
--- NOTE | 2024-03-27 07:46 | P.PN_ITS ---
Progress Note: Subjective Subjective Interval history: Patient more tearful this morning. Discussed that he would not likely be able to walk ever again. Did discuss possibilities of hospice with patient says he is not ready for yet. Only other complaint was that his back pain is acting up he thinks is just positional. Exam Constitutional Vital Signs, click to edit/add: Last Vital Signs Temp 98.5 F 03/27/24 04:00 Pulse 94 H 03/27/24 05:42 Resp 18 03/27/24 04:00 BP 109/62 03/27/24 05:08 Pulse Ox 96 03/27/24 04:09 O2 Del Method Nasal Cannula 03/27/24 04:09 O2 Flow Rate 2 03/27/24 04:09 Documenting provider has reviewed patient's vital signs: yes Common normals: no apparent distress Chest Common normals: inspection of chest normal Respiratory Common normals: normal respiratory effort Auscultation: rales (1/4 up the lung field - not sig changed) and diminished lung sounds GI Common normals: Normal to inspection, nondistended, normoactive bowel sounds present (Edema lower abdominal wall), soft to palpation and non-tender Extremity Common normals: abnormal to inspection (2-3+ edema bilateral lower extremities, not sig changed) Progress Note: Objective Labs Labs: Short CBC 03/27/24 Range/Units 05:55 WBC 10.1 (4.0-11.0) 10^3/uL Hgb 8.1 L (14.0-18.0) g/dL Hct 25.9 L (42.0-54.0) % Plt Count 209 (150-450) 10^3/uL BMP 03/26/24 03/27/24 06:59 05:55 Sodium 148 H 147 H Potassium 3.9 3.5 Chloride 109 H 108 H Carbon Dioxide 32.1 H 32.1 H BUN 76.0 H* 73.0 H Creatinine 2.04 H 1.98 H Glucose 119 H 95 Calcium 8.6 8.4 L Liver Function 03/26/24 03/27/24 Range/Units 06:59 05:55 Total Bilirubin 0.5 0.7 (0.2-1.0) mg/dL AST 20 17 (15-37) U/L ALT 77 H 60 (16-63) U/L Alkaline Phosphatase 110 92 (46-116) U/L Albumin 2.1 L 2.3 L (3.4-5.0) g/dL Progress Note: A&P Assessment and Plan (1) MARIBELL (acute kidney injury): (2) Acute retention of urine: (3) Fluid overload: Qualifiers: Hypervolemia type: unspecified Qualified Code(s): E87.70 - Fluid overload, unspecified (4) Anasarca: (5) Hypothyroidism: (6) IDDM (insulin dependent diabetes mellitus): (7) CKD stage 3 due to type 2 diabetes mellitus: (8) Frequent falls: (9) Afib: (10) CHF (congestive heart failure): Plan Admission findings: Sinus tachycardia, relative hypoxia with O2 saturation low 90s on supplemental oxygen, elevated liver function test, elevated BNP consistent with acute combined congestive heart failure given his peripheral edema and pulmonary edema. Has had echo recently, would not need to repeat that, serial troponins x 3. Check urinalysis. Acute combined congestive heart failure-kidney function actually better than previous day, only 2 L out, will repeat Bumex but slower rate for longer period of time and repeat the albumin dose. Low back pain-will have physical therapy work with patient today, try patient on IV Norflex Hypothyroidism-TSH significantly elevated from previous. Added Anahymel on 03/25/2024 Moderate protein calorie malnutrition-continue to work with diet management Iron deficiency anemia-monitor daily, monitor blood count closely as he is on Eliquis low-dose cut back on last time.-Hemoglobin down further today. Check occult blood but maintain Eliquis dosing currently. CKD3-this is likely to deteriorate secondary to need for diuresis-actually slightly better than previous day IDDM-insulin sliding scale-excellent sugar control Elevated liver function test likely secondary to passive congestion.-Check on labs but no abdominal tenderness Acute urinary retention-catheter placed, urinalysis does show moderate bacteria on a catheter specimen - will start IV antibiotics while cultures are pending History of UTI-check urinalysis for possible etiology for cause of his acute combined congestive heart failure-culture pending General Anxiety disorder-continue with home medications-increase Zoloft on 03/26 Atrial fibrillation-controlled ventricular response, continue with current treatment plan Hypertension-continue with current medication, blood pressure well-controlled GERD-continue with Protonix Hypernatremia-improved today. Continue with diuresis. Hypercholesterolemia-continue with home medications Admission findings: Patient with recurrence of his acute combined congestive heart failure, he would likely be here 3 days for IV Bumex which has been ineffective in the past. Unable to use spironolactone secondary to its effect on his kidney function. Medically necessary treatment will span 2 midnights. Inpatient status. Likely still 2 more days. Good but not great urine output with first and second dose of Bumex. Did discuss the hospice option as patient is unlikely to be able to ambulate. At this point patient not ready for hospice. Discussed this with family as well. Urinary Catheter Management Urinary Catheter Management Urethral: Cath placed during this visit: yes Urethral indwelling: Yes Reason for continuing: acute urinary retention Insertion date: 03/25/24 Insertion time: 13:19
[2024-03-27] MEDS: 0.9 % SODIUM CHLORIDE 250 ML 10 ML IV (08:09)
[2024-03-27] MEDS: PANTOPRAZOLE SODIUM 40 MG VIAL IV ×2 (08:09→21:22)
[2024-03-27] MEDS: CEFTRIAXONE 1,000 MG in 0.9 % SODIUM CHLORIDE 50 ML 100 MG IV (08:09)
[2024-03-27] MEDS: ALBUMIN HUMAN 25 GM/100 ML PREMIX IV ×2 (08:39→09:41)
[2024-03-27] MEDS: ASPIRIN 81 MG TABLET.DR PO (08:42)
[2024-03-27] MEDS: SERTRALINE HCL 50 MG TABLET 100 MG PO (08:42)
[2024-03-27] MEDS: ISOSORBIDE MONONITRATE 60 MG TAB.ER.24H 120 MG PO (08:42)
[2024-03-27] MEDS: SACUBITRIL/VALSARTAN 24 MG-26 MG TABLET 2 TAB PO ×2 (08:42→21:17)
[2024-03-27] MEDS: APIXABAN 5 MG TABLET 2.5 MG PO ×2 (08:42→21:17)
[2024-03-27] MEDS: LIOTHYRONINE SODIUM 5 MCG TABLET 10 MCG PO (08:42)
[2024-03-27] MEDS: CARVEDILOL 25 MG TABLET 37.5 MG PO ×2 (08:42→21:16)
[2024-03-27] MEDS: FERROUS SULFATE 325 MG TABLET PO ×2 (08:43→21:17)
--- NOTE | 2024-03-27 09:23 | SWNOTE1 ---
SW reviewed progress note from today from Dr. Lopez, per note doctor discussed hospice with pt and he is not ready for it. SW to speak with pt again today as well.
--- NOTE | 2024-03-27 10:24 | REH.PTDLY ---
Physical Therapy Daily Note PT Daily Note/Assess Start: 03/26/24 13:28 Freq: Status: Active Protocol: Document 03/27/24 09:40 MARY (Rec: 03/27/24 10:24 RAJESHGEOFF [id number]) Physical Therapy Daily Note/Assessment Time In 09:17 Time Out 09:40 Subjective Pt agreeable to therapy upon arrival, states he does not feel as with it today. Willing to try my best. Therapeutic Exercise Minutes (minutes) 4 Therapeutic Exercise Units 0 Therapeutic Exercise Treatment Seated LE exs with little AROM movement noted. AA for larger ROM with LAQ 5x ea side with pt reporting discomfort. Little AROM noted with attempted marching and AP. Therapeutic Activity Minutes (minutes) 10 Therapeutic Activity Units 1 Therapeutic Activity Comments Cues for pt to move legs on his own with transfer, but unable. Legs are very sensitive to the touch. Pt requires Max A x2 to sit bedside. Cues to scoot forward so feet touch floor, but unable-Max A. Pt able to sit unsupported bedside for 10 mins, no LOB noted. Pt requires encouragement to attempt to stand arm in arm, Max A x2 attempted with little participation from pt as he just states 'I can't'. Max A x2 to return to bed. Total Therapy Minutes 14 Total Physical Therapy Units 1 Daily Note Summary Pt has good sitting balance once he is upright, but requires Max A x2 to get in that position. Unable to stand at this time. Pt will need to return to LTC facility at [place].
[2024-03-27] MEDS: BUMETANIDE 10 MG in 0.9 % SODIUM CHLORIDE 160 ML IV (10:44)
--- NOTE | 2024-03-27 11:05 | SWNOTE1 ---
SW attempted to see pt, he was sleeping, but arousable for a few minutes. He voiced he feels tired. Today is his birthday. LESLEY did ask if he spoke to Dr. Lopez this morning and he was falling back asleep as LESLEY was asking. SW to stop back in later. LESLEY did send updates to [facility] at [facility]. Updates included PT/OT, nursing notes, progress note, diagnostic imaging, and labs. Pt did attempt to work with therapy, but is not able to complete much.
[2024-03-27 11:17] LABS: Glucometer 139 mg/dL (74-106)
--- NOTE | 2024-03-27 14:15 | SWNOTE1 ---
SW attempted to see pt again this afternoon. Pt was sleeping. SW to call pt's son Roosevelt and touch base.
--- NOTE | 2024-03-27 14:23 | SWNOTE1 ---
SW spoke to pt's son Roosevelt and did confirm that at this time pt is not ready for hospice. SW to stop back in tomorrow to see pt.
[2024-03-27 15:57] LABS: Glucometer 136 mg/dL (74-106)
[2024-03-27] MEDS: HYDRALAZINE HCL 25 MG TABLET PO (21:16)
[2024-03-27] MEDS: ATORVASTATIN CALCIUM 20 MG TABLET PO (21:17)
[2024-03-27] MEDS: AMITRIPTYLINE HCL 50 MG TABLET PO (21:17)
[2024-03-27] MEDS: LEVOTHYROXINE SODIUM 25 MCG TABLET 50 MCG PO (21:17)
[2024-03-27 22:33] LABS: Glucometer 152 mg/dL (74-106)
[2024-03-28] VITALS (23 sets, daily range): BP systolic 105–165; BP diastolic 58–83; PULSE 80–885; TEMP 36.5–36.9; O2SAT 90–96
[2024-03-28] MEDS: HYDRALAZINE HCL 25 MG TABLET PO ×3 (05:21→21:23)
[2024-03-28 05:52] LABS: Basophils Percent Auto 0.1 % (0.2-2.0); Eosinophils Percent Auto 0.1 % (0.9-7.0); Hemoglobin 7.5 g/dL (14.0-18.0); Immature Granulocytes Abs Auto 0.04 10^3/uL (0.00-0.03); Immature Granulocytes Pct Auto 0.4 % (0.0-0.5); Lymphocytes Absolute Auto 0.4 10^3/uL (1.2-3.8); Lymphocytes Percent Auto 4.3 % (20.5-60.0); Mean Corpuscular HGB Conc 31.3 g/dL (29.9-35.2); Mean Corpuscular Hemoglobin 32.2 pg (25.9-34.0); Mean Platelet Volume 10.8 fL (9.5-13.5); Monocytes Absolute Auto 0.9 10^3/uL (0.3-0.8); Monocytes Percent Auto 9.8 % (1.7-12.0); Neutrophils Absolute Auto 7.7 10^3/uL (1.4-6.5); Neutrophils Percent Auto 85.3 % (43.0-75.0); Platelet Count 205 10^3/uL (150-450); Red Blood Count 2.33 10^6/uL (4.70-6.10); Red Cell Distribution Width 14.5 % (11.0-15.0)
[2024-03-28 07:03] LABS: Alanine Aminotransferase 50 U/L (16-63); Albumin Globulin Ratio 0.9; Albumin Level 2.6 g/dL (3.4-5.0); Alkaline Phosphatase 123 U/L (46-116); Anion Gap 15.1; Aspartate Amino Transferase 17 U/L (15-37); BUN Creatinine Ratio 34.8; Bilirubin Total 0.8 mg/dL (0.2-1.0); Calcium 8.6 mg/dL (8.5-10.1); Carbon Dioxide 28.6 mmol/L (21.0-32.0); Chloride 106 mmol/L (98-107); Estimated GFR (African America 33 (>=60); Estimated GFR (Non-African Ame 27 (>=60); Globulin 2.9 g/dL; Glucose 128 mg/dL (74-106); Potassium 3.7 mmol/L (3.5-5.1); Sodium 146 mmol/L (136-145); Total Protein 5.5 g/dL (6.4-8.2)
--- NOTE | 2024-03-28 08:12 | P.PN_ITS ---
Progress Note: Subjective Subjective Interval history: No current complaints this morning. Does still have some dyspnea. But not active enough to tell if he has any dyspnea on exertion Exam Constitutional Vital Signs, click to edit/add: Last Vital Signs Temp 98 F 03/28/24 04:00 Pulse 86 03/28/24 07:59 Resp 18 03/28/24 04:00 BP 123/70 03/28/24 04:00 Pulse Ox 93 L 03/28/24 04:00 O2 Del Method Nasal Cannula 03/28/24 04:00 O2 Flow Rate 1 03/28/24 00:00 Documenting provider has reviewed patient's vital signs: yes Common normals: no apparent distress Chest Common normals: inspection of chest normal Respiratory Common normals: normal respiratory effort Auscultation: rales (Minimal in bases) and diminished lung sounds GI Common normals: Normal to inspection, nondistended, normoactive bowel sounds present (Edema lower abdominal wall), soft to palpation and non-tender Extremity Common normals: abnormal to inspection (1-2+ edema bilateral lower extremities, this is his baseline) Progress Note: Objective Labs Labs: Short CBC 03/28/24 Range/Units 05:20 WBC 9.0 (4.0-11.0) 10^3/uL Hgb 7.5 L (14.0-18.0) g/dL Hct 24.0 L (42.0-54.0) % Plt Count 205 (150-450) 10^3/uL BMP 03/28/24 05:20 Sodium 146 H Potassium 3.7 Chloride 106 Carbon Dioxide 28.6 BUN 80.0 H* Creatinine 2.30 H Glucose 128 H Calcium 8.6 Liver Function 03/28/24 Range/Units 05:20 Total Bilirubin 0.8 (0.2-1.0) mg/dL AST 17 (15-37) U/L ALT 50 (16-63) U/L Alkaline Phosphatase 123 H (46-116) U/L Albumin 2.6 L (3.4-5.0) g/dL Progress Note: A&P Assessment and Plan (1) MARIBELL (acute kidney injury): (2) Acute retention of urine: (3) Fluid overload: Qualifiers: Hypervolemia type: unspecified Qualified Code(s): E87.70 - Fluid overload, unspecified (4) Anasarca: (5) Hypothyroidism: (6) IDDM (insulin dependent diabetes mellitus): (7) CKD stage 3 due to type 2 diabetes mellitus: (8) Frequent falls: (9) Afib: (10) CHF (congestive heart failure): Plan Admission findings: Sinus tachycardia, relative hypoxia with O2 saturation low 90s on supplemental oxygen, elevated liver function test, elevated BNP consistent with acute combined congestive heart failure given his peripheral edema and pulmonary edema. Has had echo recently, would not need to repeat that, serial troponins x 3. Check urinalysis. Acute combined congestive heart failure-kidney function is up somewhat today. Change patient to oral Bumex, only 800 cc out with IV Bumex yesterday. Low back pain-will have physical therapy work with patient today, try patient on IV Norflex Hypothyroidism-TSH significantly elevated from previous. Added Cytomel on 03/25/2024 Moderate protein calorie malnutrition-continue to work with diet management Iron deficiency anemia-likely acute blood loss anemia with acute upper gastrointestinal blood loss anemia. Occult blood is pending. Hemoglobin down less than 8 today. Transfuse 1 unit due to acute combined congestive heart failure. CKD3-this is likely to deteriorate secondary to need for diuresis-urine creatinine are elevated today., Not unexpected IDDM-insulin sliding scale-excellent sugar control Elevated liver function test likely secondary to passive congestion.-Continue to follow labs Acute urinary retention-catheter placed, urinalysis does show moderate bacteria on a catheter specimen - will start IV antibiotics while cultures are pending History of UTI-urine culture is negative. General Anxiety disorder-continue with home medications-increase Zoloft on 03/26 Atrial fibrillation-controlled ventricular response, continue with current treatment plan Hypertension-continue with current medication, blood pressure well-controlled GERD-continue with Protonix Hypernatremia-improved today. Continue with now oral diuresis Hypercholesterolemia-continue with home medications Admission findings: Patient with recurrence of his acute combined congestive heart failure, he would likely be here 3 days for IV Bumex which has been ineffective in the past. Unable to use spironolactone secondary to its effect on his kidney function. Medically necessary treatment will span 2 midnights. Inpatient status. Likely 1 additional day. If stable tomorrow discharge back to long-term care facility tomorrow Did discuss the hospice option as patient is unlikely to be able to ambulate. At this point patient not ready for hospice. Discussed this with family as well. Urinary Catheter Management Urinary Catheter Management Urethral: Cath placed during this visit: yes Urethral indwelling: Yes Reason for continuing: acute urinary retention Insertion date: 03/25/24 Insertion time: 13:19
[2024-03-28] MEDS: BUMETANIDE 1 MG TABLET 2 MG PO ×2 (08:40→21:23)
[2024-03-28] MEDS: ACETAMINOPHEN 325 MG TABLET 650 MG PO (08:40)
[2024-03-28] MEDS: FERROUS SULFATE 325 MG TABLET PO ×2 (08:40→21:23)
[2024-03-28] MEDS: CARVEDILOL 25 MG TABLET 37.5 MG PO ×2 (08:40→21:24)
[2024-03-28] MEDS: LIOTHYRONINE SODIUM 5 MCG TABLET 10 MCG PO (08:40)
[2024-03-28] MEDS: SACUBITRIL/VALSARTAN 24 MG-26 MG TABLET 2 TAB PO ×2 (08:40→21:23)
[2024-03-28] MEDS: ASPIRIN 81 MG TABLET.DR PO (08:40)
[2024-03-28] MEDS: SERTRALINE HCL 50 MG TABLET 100 MG PO (08:41)
[2024-03-28] MEDS: PANTOPRAZOLE SODIUM 40 MG VIAL IV ×2 (08:41→21:24)
[2024-03-28] MEDS: ISOSORBIDE MONONITRATE 60 MG TAB.ER.24H 120 MG PO (08:41)
[2024-03-28] MEDS: INSULIN DETEMIR 300 UNIT/3 ML INSULN.PEN 38 UNIT SUBQ (08:41)
--- NOTE | 2024-03-28 10:44 | SWNOTE1 ---
No discharge today for pt. SW stopped by and spoke with pt, he voiced he thinks he is feeling alright. SW did review IMM form with pt, but he would like SW to call son and review with son.
--- NOTE | 2024-03-28 10:52 | REH.PTDLY ---
Physical Therapy Daily Note PT Daily Note/Assess Start: 03/26/24 13:28 Freq: Status: Active Protocol: Document 03/28/24 10:46 MARY (Rec: 03/28/24 10:52 MARY [id number]) Physical Therapy Daily Note/Assessment Time In 09:43 Time Out 09:58 Subjective Daughter in room, pt resting. Pt agreeable to therapy. Therapeutic Exercise Minutes (minutes) 10 Therapeutic Exercise Units 1 Therapeutic Exercise Treatment Instructed in Santino FELIX AAROM exs with R LE being stronger compared to L LE. Performed Robert AP, circles with ankles, hip IR/ER rolls. heel slides, hip abd slides, QS, SLR 10x ea . Little AROM noted with L LE. Can see muscle activation of quad when attempting SLR, but pt unable to perform on his own. Pt complains of int. L knee pain at times throughout rx. Therapeutic Activity Minutes (minutes) 3 Therapeutic Activity Units 0 Bed Mobility Ability Moderate Assist,2 Person Assist Therapeutic Activity Comments Pt needs to use bedpan. Cues for pt to reach for bed rail to assist in rolling himself on his side. Pt requires Mod A x2 for rolling and for placement of bed [place]. Rx ended at this time for pt to have privacy. Total Therapy Minutes 13 Total Physical Therapy Units 1 Daily Note Summary Pt continues to be weak with AA of B ELVIRA supine exs. Pt states at times throughout rx Am I moving my legs? It feels like it. Pt is indeed moving legs, but seems to always be questioning what is going on around him and if it is actually happening throughout rx.
[2024-03-28 11:06] LABS: Internal Control Within Normal Limits; Occult Blood Positive
[2024-03-28] MEDS: 0.9 % SODIUM CHLORIDE 250 ML 10 ML IV (14:56)
[2024-03-28 16:51] LABS: Glucometer 215 mg/dL (74-106)
[2024-03-28] MEDS: INSULIN ASPART 300 UNIT/3 ML PEN SUBQ (17:32)
[2024-03-28 20:25] LABS: Glucometer 195 mg/dL (74-106)
[2024-03-28] MEDS: AMITRIPTYLINE HCL 50 MG TABLET PO (21:23)
[2024-03-28] MEDS: LEVOTHYROXINE SODIUM 25 MCG TABLET 50 MCG PO (21:23)
[2024-03-28] MEDS: ATORVASTATIN CALCIUM 20 MG TABLET PO (21:23)
[2024-03-29] VITALS (10 sets, daily range): BP systolic 119–142; BP diastolic 65–69; PULSE 77–83; TEMP 36.3–36.9; O2SAT 90–91
[2024-03-29] MEDS: HYDRALAZINE HCL 25 MG TABLET PO (05:25)
[2024-03-29 05:47] LABS: Basophils Percent Auto 0.1 % (0.2-2.0); Eosinophils Percent Auto 0.1 % (0.9-7.0); Hematocrit 27.5 % (42.0-54.0); Hemoglobin 8.9 g/dL (14.0-18.0); Immature Granulocytes Abs Auto 0.05 10^3/uL (0.00-0.03); Immature Granulocytes Pct Auto 0.5 % (0.0-0.5); Lymphocytes Absolute Auto 0.4 10^3/uL (1.2-3.8); Lymphocytes Percent Auto 4.3 % (20.5-60.0); Mean Corpuscular HGB Conc 32.4 g/dL (29.9-35.2); Mean Corpuscular Hemoglobin 31.7 pg (25.9-34.0); Mean Corpuscular Volume 97.9 fL (80.0-94.0); Mean Platelet Volume 10.5 fL (9.5-13.5); Monocytes Absolute Auto 0.9 10^3/uL (0.3-0.8); Monocytes Percent Auto 9.2 % (1.7-12.0); Neutrophils Absolute Auto 8.5 10^3/uL (1.4-6.5); Neutrophils Percent Auto 85.8 % (43.0-75.0); Platelet Count 227 10^3/uL (150-450); Red Blood Count 2.81 10^6/uL (4.70-6.10); Red Cell Distribution Width 16.2 % (11.0-15.0); White Blood Count 9.9 10^3/uL (4.0-11.0)
[2024-03-29 06:16] LABS: Alanine Aminotransferase 44 U/L (16-63); Albumin Globulin Ratio 0.7; Albumin Level 2.4 g/dL (3.4-5.0); Alkaline Phosphatase 126 U/L (46-116); Anion Gap 8.5; Aspartate Amino Transferase 12 U/L (15-37); BUN Creatinine Ratio 35.1; Bilirubin Total 0.9 mg/dL (0.2-1.0); Calcium 8.4 mg/dL (8.5-10.1); Carbon Dioxide 32.3 mmol/L (21.0-32.0); Chloride 104 mmol/L (98-107); Estimated GFR (African America 30 (>=60); Estimated GFR (Non-African Ame 25 (>=60); Globulin 3.3 g/dL; Glucose 137 mg/dL (74-106); Potassium 3.8 mmol/L (3.5-5.1); Sodium 141 mmol/L (136-145); Total Protein 5.7 g/dL (6.4-8.2)
--- NOTE | 2024-03-29 07:56 | P.DS_ITS ---
DS: Providers Provider Date of admission: 03/25/24 15:11 Primary care physician: Yao Lopez MD Consults: 03/25/24 14:21 Consult to Pharmacy Routine Consulting Provider: Reason for consultation: Please [place] me when Med Rec is Updated Has provider been notified: No Consult to [facility] Routine Reason for consult:: Retirement Occupational Therapy Eval and Treat Routine Reason for consultation: Only if needed for Rehab Has provider been notified: No Physical Therapy Eval and Treat Routine Reason for consultation: Eval and Treat Has provider been notified: No DS: Diagnosis Discharge Diagnosis (1) MARIBELL (acute kidney injury): (2) Acute retention of urine: (3) Fluid overload: Qualifiers: Hypervolemia type: unspecified Qualified Code(s): E87.70 - Fluid overload, unspecified (4) Anasarca: (5) Hypothyroidism: (6) IDDM (insulin dependent diabetes mellitus): (7) CKD stage 3 due to type 2 diabetes mellitus: (8) Frequent falls: (9) Afib: (10) CHF (congestive heart failure): Plan Admission findings: Sinus tachycardia, relative hypoxia with O2 saturation low 90s on supplemental oxygen, elevated liver function test, elevated BNP consistent with acute combined congestive heart failure given his peripheral edema and pulmonary edema. Has had echo recently, would not need to repeat that, serial troponins x 3. Check urinalysis. Acute combined congestive heart failure-still some swelling but this to be his baseline. Improved from admission Low back pain-will have physical therapy work with patient-stable Hypothyroidism-TSH significantly elevated from previous. Added Marlen on 03/25/2024-monitor as an outpatient Moderate protein calorie malnutrition-continue to work with diet management Iron deficiency anemia-with acute blood loss anemia with acute upper gastrointestinal blood loss anemia. Occult blood positive, hemoglobin improved, will hold anticoagulation for at least a couple weeks to allow healing understanding risk of stroke with atrial fibrillation CKD3-this is likely to deteriorate secondary to need for diuresis-slightly elevated at the time of discharge but that probably his baseline 2.3-2.5 robert rene IDDM-insulin sliding scale-excellent sugar control Elevated liver function test likely secondary to passive congestion. Stable to time of discharge Acute urinary retention-catheter placed, urinalysis does show moderate bacteria on a catheter specimen -urine culture negative History of UTI-urine culture is negative. General Anxiety disorder-continue with home medications-increase Zoloft on 03/26 Atrial fibrillation-controlled ventricular response, continue with current treatment plan stable at the time of discharge Hypertension-continue with current medication, blood pressure [id number] adjusted with increased Coreg, stable at the time of discharge GERD this acute upper gastrointestinal bleeding due to a likely gastritis- continue with Protonix Hypernatremia-improved at the time of discharge Hypercholesterolemia-continue with home medications Admission findings: Patient with recurrence of his acute combined congestive heart failure, he would likely be here 3 days for IV Bumex which has been ineffective in the past. Unable to use spironolactone secondary to its effect on his kidney function. Medically necessary treatment will span 2 midnights. Inpatient status. Likely 1 additional day. If stable tomorrow discharge back to long-term care facility tomorrow Did discuss the hospice option as patient is unlikely to be able to ambulate. At this point patient not ready for hospice. Discussed this with family as well. DS: Summary Hospital Course Hospital Course: Patient was long-term care facility, had increasing shortness of breath and peripheral edema. Did have some increasing hypoxia with an increased O2 requirement, and he takes 1 to 2 L at his baseline. He was initially given IV Bumex prior to Bumex drip. We did this the first day without albumin secondary with albumin we try Bumex with the albumin and bolus dosing of the Bumex. Blood count went down on the third day so was given 1 unit of PRBCs, occult blood did come back positive, was on IV Protonix. Held his Eliquis. BNP is up today but his creatinine is up as well. His edema is at his baseline. With the edema overall improved, over 4 L diuresed, will have him transferred back to [facility] today. Did have long discussions with him about his prognosis. Highly unlikely he will be able to get back to walking. Likely to be bedbound. Likely [facility] to be his forever home. Discussed options for hospice but patient was not interested at that time. Time Spent with Patient Time attestation: Total time spent providing and/or coordinating discharge services: Exam Constitutional Vital Signs, click to edit/add: Last Vital Signs Temp 97.4 F L 03/29/24 03:48 Pulse 77 03/29/24 06:00 Resp 20 03/29/24 03:48 BP 119/65 03/29/24 05:25 Pulse Ox 90 L 03/29/24 03:48 O2 Del Method Nasal Cannula 03/29/24 03:48 O2 Flow Rate 1 03/29/24 03:48 Documenting provider has reviewed patient's vital signs: yes Common normals: no apparent distress Chest Common normals: inspection of chest normal Respiratory Common normals: normal respiratory effort Auscultation: rales (Minimal in bases) and diminished lung sounds GI Common normals: Normal to inspection, nondistended, normoactive bowel sounds present (Edema lower abdominal wall), soft to palpation and non-tender Extremity Common normals: abnormal to inspection (1-2+ edema bilateral lower extremities, this is his baseline) DS: Data Data Completed and Pending Labs on day of discharge: Labs from last 24 hours 03/29/24 03/28/24 03/28/24 05:36 20:23 16:38 WBC 9.9 RBC 2.81 L Hgb 8.9 L Hct 27.5 L MCV 97.9 H MCH 31.7 MCHC 32.4 RDW 16.2 H Plt Count 227 MPV 10.5 Neut % (Auto) 85.8 H Lymph % (Auto) 4.3 L Gallia % (Auto) 9.2 Eos % (Auto) 0.1 L Baso % (Auto) 0.1 L Neut # (Auto) 8.5 H Lymph # (Auto) 0.4 L Gallia # (Auto) 0.9 H Eos # (Auto) 0.0 Baso # (Auto) 0.0 Abs Immat Gran (auto) 0.05 H Imm/Tot Granulo (auto) 0.5 Sodium 141 Potassium 3.8 Chloride 104 Carbon Dioxide 32.3 H Anion Gap 8.5 BUN 88.0 H* Creatinine 2.51 H Est GFR ( Amer) 30 L Est GFR (Non-Af Amer) 25 L BUN/Creatinine Ratio 35.1 Glucose 137 H Calcium 8.4 L Total Bilirubin 0.9 AST 12 L ALT 44 Alkaline Phosphatase 126 H NT-Pro-B Natriuret Pep 02727.0 H* Total Protein 5.7 L Albumin 2.4 L Globulin 3.3 Albumin/Globulin Ratio 0.7 Stool Occult Blood POC Glucose 195 H 215 H Blood Type Antibody Screen Crossmatch 03/28/24 03/28/24 10:15 05:20 WBC RBC Hgb Hct MCV MCH MCHC RDW Plt Count MPV Neut % (Auto) Lymph % (Auto) Gallia % (Auto) Eos % (Auto) Baso % (Auto) Neut # (Auto) Lymph # (Auto) Gallia # (Auto) Eos # (Auto) Baso # (Auto) Abs Immat Gran (auto) Imm/Tot Granulo (auto) Sodium Potassium Chloride Carbon Dioxide Anion Gap BUN Creatinine Est GFR ( Amer) Est GFR (Non-Af Amer) BUN/Creatinine Ratio Glucose Calcium Total Bilirubin AST ALT Alkaline Phosphatase NT-Pro-B Natriuret Pep Total Protein Albumin Globulin Albumin/Globulin Ratio Stool Occult Blood Positive A POC Glucose Blood Type O Positive Antibody Screen Negative Crossmatch See Detail Discharge Plan Discharge Disposition: Xfer SNF Discharge Medications: New carvedilol 25 mg Tablet 37.5 mg PO BID Qty: 90 11RF liothyronine 5 mcg Tablet 10 mcg PO QD Qty: 60 11RF bumetanide 1 mg Tablet 2 mg PO BID Qty: 60 11RF sertraline 50 mg Tablet 100 mg PO DAILY Qty: 60 11RF Continued alprazolam 0.5 mg tablet 0.5 mg PO TID PRN (Reason: anxiety) atorvastatin 20 mg tablet 20 mg PO .QHS levothyroxine 50 mcg tablet 50 mcg PO .qhs aspirin [Adult Aspirin Regimen] 81 mg tablet,delayed release (DR/EC) 81 mg PO DAILY Hold Instructions: Doctor's Order insulin aspart U-100 [Novolog FlexPen U-100 Insulin] 100 unit/mL (3 mL) Insulin Pen 2 - 14 unit subcut ACHS Qty: 15 0RF amitriptyline 50 mg tablet 50 mg PO BEDTIME hydralazine 25 mg Tablet 25 mg PO TID Qty: 90 11RF Levemir FlexPen 100 unit/mL (3 mL) Insulin Pen 38 unit subcut QAM benzonatate 100 mg Capsule 200 mg PO Q8H PRN (Reason: Cough) 3 Days Qty: 6 0RF carvedilol 25 mg Tablet 37.5 mg PO BID Qty: 90 11RF isosorbide mononitrate 60 mg Tablet Extended Release 24 Hr 120 mg PO QD Qty: 30 11RF ferrous sulfate 325 mg (65 mg iron) Tablet 325 mg PO BID Qty: 60 11RF Ensure Active Protein-Muscle Liquid 1 ea PO BID Qty: 5688 11RF Pro-Stat Sugar Free 15 gram- 100 kcal/30 mL Liquid In Packet 1 ea PO BID Qty: 2880 11RF Entresto 24-26 mg Tablet 2 tab PO BID Qty: 60 11RF pantoprazole [Protonix] 40 mg tablet,delayed release (DR/EC) 40 mg PO QAM Qty: 30 11RF Discontinued bumetanide 1 mg tablet 1 mg PO DAILY sertraline 50 mg tablet 50 mg PO DAILY bumetanide 2 mg tablet 2 mg PO .qd Hold Instructions: Resume on 02/27/24. Eliquis 2.5 mg tablet 2.5 mg PO BID Qty: 60 11RF Print Language: Vincentian Forms: Portal Instructions
[2024-03-29] MEDS: PANTOPRAZOLE SODIUM 40 MG VIAL IV (09:52)
[2024-03-29] MEDS: ASPIRIN 81 MG TABLET.DR PO (09:53)
[2024-03-29] MEDS: SACUBITRIL/VALSARTAN 24 MG-26 MG TABLET 2 TAB PO (09:53)
[2024-03-29] MEDS: BUMETANIDE 1 MG TABLET 2 MG PO (09:53)
[2024-03-29] MEDS: CARVEDILOL 25 MG TABLET 37.5 MG PO (09:53)
[2024-03-29] MEDS: FERROUS SULFATE 325 MG TABLET PO (09:53)
[2024-03-29] MEDS: LIOTHYRONINE SODIUM 5 MCG TABLET 10 MCG PO (09:53)
[2024-03-29] MEDS: SERTRALINE HCL 50 MG TABLET 100 MG PO (09:53)
[2024-03-29] MEDS: INSULIN DETEMIR 300 UNIT/3 ML INSULN.PEN 38 UNIT SUBQ (09:57)
[2024-03-29] MEDS: ISOSORBIDE MONONITRATE 60 MG TAB.ER.24H 120 MG PO (10:00)
--- NOTE | 2024-03-29 10:12 | PT.DAILY ---
Physical Therapy Daily Note PT Daily Note/Assess Start: 03/26/24 13:28 Freq: Status: Active Protocol: Document 03/29/24 10:05 AMIE (Rec: 03/29/24 10:12 AMIE Laptop) Physical Therapy Daily Note/Assessment Time In/Time Out Time In 09:40 Time Out 09:52 Pain In Pain N/A Pain Out Pain N/A Subjective Subjective Pt supine upon arrival. Planned DC back to [facility] sometime today. Pt is agreeable to bed level ex but unsure how much he can participate. Currently denies pain. Therapeutic Exercise Time Therapeutic Exercise Minutes (minutes) 8 Therapeutic Exercise Units 1 Therapeutic Exercise Treatment Therapeutic Exercise Treatment Pt instructed to perform supine anti embolic ther ex 10x ea. Need assistance for strengthening ex in supine which include: SLR, heel slides and abduction slides 10x ea. Pt performs UE ROM ex - shoulder flexion, punches, and shoulder abduction 10x ea. Remains supine upon completion with call light in reach and needs met. Total Physical Therapy Time Total Therapy Minutes 8 Total Physical Therapy Units 1 Summary Daily Note Summary Fair tolerance to session. Cont to be unaware of leg/foot placement in space which requires AA for some ex. Pt very pleasant and positive throughout session. Min increased L knee pain with flexion and SLR.
--- NOTE | 2024-03-29 10:41 | SWNOTE1 ---
Pt is returning to [facility]dc today. SW faxed over dc med rec and dc summary. SW called [facility] and there first available transport time is 5:30. SW called [facility] and they need SW to fill out paperwork and they will call back with time. SW filled out paperwork and faxed over to [facility]. SW updated nursing.
--- NOTE | 2024-03-29 11:21 | SWNOTE1 ---
[facility] will be here around 1:00 to transport. LESLEY called and cancelled [facility]. SW called son Roosevelt and left message. SW called and spoke to pt's son Myriam to give time. LESLEY let [facility] and nursing know time. SW took packet to the floor. 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
[2024-03-29 11:26] LABS: Glucometer 261 mg/dL (74-106)
== END 2024-03-29 13:08 | DRG 291 ==
LOC: ER 15:05 → MS 15:15
PROVIDERS: Admitting Provider Family Medicine; Emergency Provider Emergency Medicine; PCP Family Medicine; Visit Provider Family Medicine
DX: I13.0 Hypertensive heart and chronic kidney disease with heart failure and stage 1 through stage 4 chronic kidney disease, or unspecified chronic kidney disease (principal); I50.41 Acute combined systolic (congestive) and diastolic (congestive) heart failure; K29.71 Gastritis, unspecified, with bleeding; N17.9 Acute kidney failure, unspecified; E44.0 Moderate protein-calorie malnutrition; E87.0 Hyperosmolality and hypernatremia; D62 Acute posthemorrhagic anemia; N18.30 Chronic kidney disease, stage 3 unspecified; E03.9 Hypothyroidism, unspecified; E11.22 Type 2 diabetes mellitus with diabetic chronic kidney disease; D50.9 Iron deficiency anemia, unspecified; R79.89 Other specified abnormal findings of blood chemistry; F41.1 Generalized anxiety disorder; I48.91 Unspecified atrial fibrillation; K21.9 Gastro-esophageal reflux disease without esophagitis; E78.00 Pure hypercholesterolemia, unspecified; Z68.34 Body mass index [BMI] 34.0-34.9, adult; R00.0 Tachycardia, unspecified; M54.50 Low back pain, unspecified; R33.9 Retention of urine, unspecified; R09.02 Hypoxemia; L89.302 Pressure ulcer of unspecified buttock, stage 2; E87.70 Fluid overload, unspecified; Z79.899 Other long term (current) drug therapy; Z87.891 Personal history of nicotine dependence; Z91.81 History of falling; Z79.890 Hormone replacement therapy; Z79.82 Long term (current) use of aspirin; Z79.4 Long term (current) use of insulin; Z79.01 Long term (current) use of anticoagulants; Z87.440 Personal history of urinary (tract) infections
CPT/HCPCS: 36415; 36430; 36569; 36592; 51702; 71045; 80053; 81001; 82948; 83605; 83735; 83880; 84436; 84443; 84481; 84484; 85025; 86850; 86900; 86901; 86923; 87070; 87086; 93005; 94667; 94668; 94761; 96365; 96366; 96367; 96368; 96375; 96376; 97110; 97161; 97165; 97530; 97535; 99285; C1887; G0328; J0696; J2270; P9016; P9046

== ENCOUNTER 2024-04-01 19:05 | Emergency (ER) | payer MEDICARE, SELFPAY ==
[2024-04-01 19:09] VITALS: BP 141/93; PULSE 86; TEMP 36.9; O2SAT 92; BMI 33.7
--- NOTE | 2024-04-01 19:16 | CT_ITS ---
[address] [address] Patient Name: JAJA FRANKLIN MRN: [id number] date: 1940 Sex: M Assigned Patient Location: ER Current Patient Location: ER Accession/Order Number: [id number] Exam Date: 04/01/2024 19:50 Report Date: 04/01/2024 20:25 At the request of: LEATHA MARKER Procedure: CT head/brain wo con EXAM: CT cervical spine wo con, CT head/brain wo con CLINICAL INDICATION: fall, head injury COMPARISON: CT head 03/04/2024 TECHNIQUE: Unenhanced computerized tomography of the head was performed. Automated dose reduction technique was employed. Multiple axial slices of the cervical spine were obtained without contrast and with coronal and sagittal reformatted images. FINDINGS: The ventricles are normal in size, configuration, and position for age. There is no intra- or extra-axial mass, hemorrhage, or fluid collection. 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 No new suspicious areas of abnormal mass effect or attenuation are noted. There is stable moderate subcortical, deep, and periventricular white matter low-attenuation, compatible with changes of chronic small vessel ischemic disease. Moderate right sphenoid sinus mucosal thickening redemonstrated. No depressed calvarial fracture. Vertebral height and alignment is preserved. No acute fracture or subluxation. Mild to moderate multilevel degenerative disc and facet disease. Bridging anterior osteophytes suggesting a component of diffuse idiopathic skeletal hyperostosis. The atlanto occipital joint is maintained.The odontoid and lateral masses are intact. The prevertebral soft tissues are within normal limits. The adjacent structures appear intact. The visualized soft tissues of the neck are normal. Possible air trapping or pneumonia in the right upper lobe, partially visualized. CT/CT head/brain wo con IMPRESSION: 1. No acute intracranial abnormality noted. Chronic senescent changes. 2. No acute fracture or subluxation of the cervical spine. Multilevel degenerative changes of the cervical spine. Electronically authenticated by: IVORY MCKENNA Date: 04/01/2024 20:25
--- NOTE | 2024-04-01 19:18 | XR_ITS ---
The [address] [address] Patient Name: JAJA FRANKLIN MRN: [id number] date: 1940 Sex: M Assigned Patient Location: ER Current Patient Location: ER Accession/Order Number: [id number] Exam Date: 04/01/2024 19:32 Report Date: 04/01/2024 21:51 At the request of: LEATHA MARKER Procedure: XR elbow LT 2V Examination:XR elbow LT 2V, XR humerus LT INDICATION:fall, arm injury COMPARISON:Previous left shoulder x-ray dated 03/12/2024. No prior left elbow x-ray. TECHNIQUE:2 views of the left elbow and 3 views of the left humerus are submitted. FINDINGS: Left elbow: No acute fracture or dislocations are present. The joint spaces are well-maintained. There is osteophytosis of the olecranon. Soft tissue calcifications are present adjacent to each humeral condyle. Surgical clips are present along the anterior left proximal forearm. There is no significant joint effusion. Left humerus: No acute fracture or dislocations are present. The joint spaces are well-maintained. Soft tissues are unremarkable. XR/XR elbow LT 2V IMPRESSION: No acute fractures in the left humerus were the left elbow. Electronically authenticated by: TSERING LORENZO Date: 04/01/2024 21:51
--- NOTE | 2024-04-01 19:18 | XR_ITS ---
The [address] [address] Patient Name: JAJA FRANKLIN MRN: [id number] date: 1940 Sex: M Assigned Patient Location: ER Current Patient Location: ER Accession/Order Number: [id number] Exam Date: 04/01/2024 19:32 Report Date: 04/01/2024 21:51 At the request of: LEATHA MARKER Procedure: XR humerus LT Examination:XR elbow LT 2V, XR humerus LT INDICATION:fall, arm injury COMPARISON:Previous left shoulder x-ray dated 03/12/2024. No prior left elbow x-ray. TECHNIQUE:2 views of the left elbow and 3 views of the left humerus are submitted. FINDINGS: Left elbow: No acute fracture or dislocations are present. The joint spaces are well-maintained. There is osteophytosis of the olecranon. Soft tissue calcifications are present adjacent to each humeral condyle. Surgical clips are present along the anterior left proximal forearm. There is no significant joint effusion. Left humerus: No acute fracture or dislocations are present. The joint spaces are well-maintained. Soft tissues are unremarkable. XR/XR humerus LT IMPRESSION: No acute fractures in the left humerus were the left elbow. Electronically authenticated by: TSERING LORENZO Date: 04/01/2024 21:51
--- OUTSIDE RECORDS SUMMARY | 2024-04-01 19:18 | XMS_ITS | CCD ---
Author Organization [facility] Care Team Providers Care Media Marketing Coordinator Name Role Phone AHMED, ZAYRA Unavailable Unavailable AHMED, ZAYRA Unavailable Unavailable LUCY DERRICK Unavailable Unavailable HAYJAZLYN Unavailable Unavailable [place] Unavailable Unavailable UNKNOWN, PROVIDER Unavailable Unavailable Derrick [...] DR MEZA Primary Care Unavailable RYLIE ., HAUNG Consulting Unavailable HOY ., DR MEZA Primary [...] Propensity to adverse reactions (disorder) [facility] Repository Medications Current Medications Medication [...] myocardial infarction; 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] Onset: [...] Onset: 11-30-2022 Chronic Other aftercare (2 sources) residential (current) use of antithrombotics/antip latelets; 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: [residential (current) use of aspirin] Onset: 03-08-2018 Episodic Other aftercare (1 source) Other retirement (current) drug therapy; 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: [OTH 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 CURRENT DRUG THERAPY] Onset: 12-16-2022 Episodic Other aftercare (1 source) 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; 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: [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 CURRENT USE OF INSULIN] Onset: 12-16-2022 Episodic Other aftercare (1 source) residential (current) use of aspirin; 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: [CARE HOME CURRENT USE OF ASPIRIN] Onset: 11-30-2022 Episodic [...] UNSPECIFIED] Onset: 12-16-2022 Chronic Unclassified (1 source) 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 (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) use of oral hypoglycemic drugs; 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: [CARE HOME (CURRENT) USE OF ORAL HYPOGLYCEMIC DRUGS] Onset: [...] Range Facility Office Visiton 07-14-2023 Follow-up visit [id number] Nohelia Bauer Lauren 1940 M Date Provider Department Center 07/14/2023 OREN PEDRO KWASI Borja Family History Problem Relation Age of Onset Coronary artery disease Mother Family Status - Relation Status Age at Mother Level of Service:52314 [place] OFFICE/OUTPATIENT ESTABLISHED LOW MDM 20-29 MIN Normal [facility] Office Visiton 03-13-2023 Follow-up visit [id number] Nohelia Bauer Lauren 1940 M Date Provider Department Center 03/13/2023 LETAHA GONZALEZ KWASI Valdovinos [facility] Family History Problem Relation Age of Onset Coronary artery disease Mother Family Status - Relation Status Age at Mother Level of Service:69030 [place] OFFICE/OUTPATIENT ESTABLISHED MOD MDM 30-39 MIN Normal [facility] PSA, FREE AND TOTAL RATIOon 11-24-2022 % Free PSA 33.9 % Normal [facility] Comment on above: Result Comment: The table [...] of men. Performed By: #### P SAFREE ####[facility] Dyehukqbtl[address] [place], [place] [address]ThBebo Diaz Prostate specific Ag [Mass/Vol] 6.2 ng/mL Critically high 0.0-4.0 [facility] Comment on above: Result Comment: Aye ECLIA methodology. .According to the [employer], Serum PSA shoulddecrease and remain [...] malignant disease. Performed By: #### P SAFREE ####[facility] [address]we[address]wb[address] [place] [address]Dr. Yuki Diaz PSA, Free 2.10 ng/mL Normal N/A [facility] Comment on above: Result Comment: Aye ECLIA methodology. Performed By: #### P SAFREE ####[facility] Vqrjsqdlsf6[address] [place] [address]Dr. Yuki Diaz CBC AUTO DIFFon 11-23-2022 BASO # 0.0 103/ul Normal 0.0-0.1 [facility] Comment on above: Performed By: #### CBC ####[facility] Qzbhrhcnhx[address] [place], [place] [address]Dr. Yuki Diaz Basophils/100 WBC (Bld) 0.3 % Normal 0.2-2.0 [facility] Comment on above: Performed By: #### CBC ####[facility] Vptmzlnuid[address] [place], [place] [address]Dr. Yuki Diaz EO # 0.3 103/ul Normal 0.0-0.7 [facility] Comment on above: Performed By: #### CBC ####[facility] Udlrqylzux[address] [place], [place] [address]Dr. Yuki Diaz Eosinophils/100 WBC (Bld) 4.7 % Normal 0.9-7.0 [facility] Comment on above: Performed By: #### CBC ####[facility] Rmnhjxysol[address] [place], [place] [address]Dr. Yuki Diaz Erythrocyte distribution width (RBC) [Ratio] 15.6 % Critically high 11.0-15.0 [facility] Comment on above: Performed By: #### CBC ####[facility] Josmlcoapd70[address] [place], [place] [address]Dr. Yuki Diaz Hematocrit (Bld) [Volume fraction] 33.5 % Critically low 42.0-54.0 [facility] Comment on above: Performed By: #### CBC ####[facility] ital Fcucskstsb5159 [place] [address]Dr. Yuki Diaz Hemoglobin (Bld) [Mass/Vol] 10.0 g/dL Critically low 14.0-18.0 [facility] Comment on above: Performed By: #### CBC ####[facility] ital Mmjmuywinf6370 [place] [address]Dr. Yuki Diaz IG # 0.03 10e3/ul Normal 0.00-0.03 [facility] Comment on above: Performed By: #### CBC ####[facility] ital Pomslqitbi85[address] [place] [address]Dr. Yuki Diaz IG % 0.5 % Normal 0.0-0.5 [facility] Comment on above: Performed By: #### CBC ####[facility] ital Klefeycmgm9071 [place] [address]Dr. Monsealyssa Diaz LYMPH # 1.5 103/ul Normal 1.2-3.8 [facility] Comment on above: Performed By: #### CBC ####[facility] ital Jkwzydmewv9936 [place] [address]Dr. Yuki Diaz Lymphocytes/100 WBC (Bld) 22.6 % Normal 20.5-60.0 [facility] Comment on above: Performed By: #### CBC ####[facility] Rcdvvgghot8[address] [place] [address]Dr. Monsealyssa Diaz MANUAL DIFF REQ NO Normal [facility] Comment on above: Performed By: #### CBC ####[facility] Eqfclkprtw4414 [place] [address]Dr. Yuki Diaz MCH (RBC) [Entitic mass] 27.9 pg Normal 25.9-34.0 [facility] Comment on above: Performed By: #### CBC ####[facility] ital Jviglrwpgd1577 [place] [address]Dr. Yuki Diaz MCHC (RBC) [Mass/Vol] 29.9 g/dL Normal 29.9-35.2 [facility] Comment on above: Performed By: #### CBC ####[facility] ital Stizaasqrr56[address] [place] [address]Dr. Yuki Diaz MCV (RBC) [Entitic vol] 93.6 fL Normal 80.0-94.0 [facility] Comment on above: Performed By: #### CBC ####[facility] ital Qmnchghytr9645 [place] [address]Dr. Yuki Diaz MONO # 0.8 103/ul Normal 0.3-0.8 [facility] Comment on above: Performed By: #### CBC ####[facility] ital Ketcdjnzdl9616 [place] [address]Dr. Yuki Diaz Monocytes/100 WBC (Bld) 12.6 % Critically high 1.7-12.0 [facility] Comment on above: Performed By: #### CBC ####[facility] Qvzgfwmxhy028[address] [place] [address]Dr. Yuki Diaz NEUT # 3.9 103/ul Normal 1.4-6.5 [facility] Comment on above: Performed By: #### CBC ####[facility] Werfmhgroc4380 [place] [address]Dr. Yuki Diaz Neutrophils/100 WBC (Bld) 59.3 % Normal 43.0-75.0 [facility] Comment on above: Performed By: #### CBC ####[facility] Pbjvguezpz8995 [place] [address]Dr. Yuki Diaz Platelet mean volume (Bld) [Entitic vol] 10.1 fL Normal 9.5-13.5 [facility] Comment on above: Performed By: #### CBC ####[facility] ital Uxniljltbe1884 [place] [address]Dr. Yuki Diaz PLT 231 103/ul Normal 150-450 [facility] Comment on above: Performed By: #### CBC ####[facility] Itnatnnkdm[address] [place] [address]Dr. Yuki Diaz RBC 3.58 106/ul Critically low 4.70-6.10 [facility] Comment on above: Performed By: #### CBC ####[facility] Jtfgkyrryk5859 [place] [address]Dr. Yuki Diaz WBC 6.6 103/ul Normal 4.0-11.0 [facility] Comment on above: Performed By: #### CBC ####[facility] Fojmshkwbl64[address] [place] [address]Dr. Yuki Diaz FREE T3on 11-23-2022 FREE T3 2.20 pg/mlL Normal 2.18-3.98 [facility] Comment on above: Performed By: #### CMP, FT3, TSH, T4, LI PID ####[facility] Hgrdigdpvj[address] [place] [address]Dr. Yuki Diaz GLYCOHEMOGLOBIN A1Con 2022 ADA RECOMMENDATION SEE BELOW Normal [facility] Comment on above: Result Comment: ADA RECOMMENDED LIMIT 4. 0 - 6.0 ADA THERAPEUTIC TARGET < 7.0 ACTION SUGGESTED > 7.0 Performed By: #### A 1C ####[facility] Ajywzdodvf[address] [place], [place] [address]Dr. Yuki Diaz Glucose [Mass/Vol] 171 mg/dL Normal [facility] Comment on above: Performed By: #### A1C ####[facility] Afdeotzukg2799 [place] [address]Dr. Yuki Diaz HbA1c (Bld) [Mass fraction] 7.6 % Critically high 4.5-6.2 [facility] Comment on above: Performed By: #### A1C ####[facility] Suaunccmlz64[address] [place] [address]Dr. Yuki Diaz LIPID PROFILEon 11-23-2022 CHOL-HDL RATIO NORM SEE BELOW Normal [facility] Comment on above: Result Comment: 3.3 - 4.4 LOW RISK 4.4 - 7.1 AVERAGE RISK 7.1 - 11.0 MODERATE RISK >11.0 HIGH RISK Performed By: #### C MP, FT3, TSH, T4, LIPID ####[facility] Numyfnsocv84[address] [place] [address]Dr. Yuki Diaz Cholesterol [Mass/Vol] 91 mg/dL Normal <=200 [facility] Comment on above: Performed By: #### CMP, FT3, TSH, T4, LI PID ####[facility] Gtscoipqew20[address] [place] [address]Dr. Yuki Diaz Cholesterol in HDL [Mass/Vol] 51 mg/dL Normal 40-60 [facility] Comment on above: Performed By: #### CMP, FT3, TSH, T4, LI PID ####[facility] Yokbjowont[address] [place] [address]Dr. Yuki Diaz Cholesterol in LDL [Mass/Vol] 27.2 mg/dL Normal [facility] Comment on above: Performed By: #### CMP, FT3, TSH, T4, LI PID ####[facility] Tbcmwcetau[address] [place], [place] [address]Dr. Yuki Diaz Cholesterol.tota l/Cholesterol in HDL [Mass ratio] 1.8 {ratio} Normal [facility] Comment on above: Performed By: #### CMP, FT3, TSH, T4, LI PID ####[facility] Iipusjdunm[address] [place], [place] [address]Dr. Yuki Diaz HDL NORMAL > or = 60 mg/dl - LO W CARDIOVASCULAR RISK <40 mg/dl - HIGH CARDIOVASCULAR RISK Normal [facility] Comment on above: Performed By: #### CMP, FT3, TSH, T4, LI PID ####[facility] Mzmrncledf70[address] [place] [address]Dr. Yuki Diaz LDL CALC NORMAL SEE BELOW Normal [facility] Comment on above: Result Comment: <100 mg/dl OPTIMAL 100 - 129 mg/dl NEAR OR ABOVE OPTIMAL 130 - 159 mg/dl BORDERLINE HIGH 160 - 189 mg/dl HIGH >190 mg/dl VERY HIGH Performed By: #### C MP, FT3, TSH, T4, LIPID ####[facility] Odvpzuuddq[address] [place], [place] [address]Dr. Yuki Diaz Triglyceride [Mass/Vol] 64 mg/dL Normal <=150 [facility] Comment on above: Performed By: #### CMP, FT3, TSH, T4, LI PID ####[facility] Ugqmaejbqp990[address] [place], [place] [address]Dr. Yuki Diaz VLDL CALC 12.8 mg/dL Normal [facility] Comment on above: Performed By: #### CMP, FT3, TSH, T4, LI PID ####[facility] Qrkyxgxksf20[address] [place], [place] [address]Dr. Yuki Diaz PROF 14(COMP METB)on 023 Albumin [Mass/Vol] 2.9 g/dL Critically low 3.4-5.0 [facility] Comment on above: Performed By: #### CMP, FT3, TSH, T4, LI PID ####[facility] Fzfpmssdgh[address] [place], [place] [address]Dr. Yuki Diaz Albumin/Globulin [Mass ratio] 0.7 {ratio} Normal [facility] Comment on above: Performed By: #### CMP, FT3, TSH, T4, LI PID ####[facility] Fkazlefpfw155[address] [place], [place] [address]Dr. Yuki Diaz ALP [Catalytic activity/Vol] 95 U/L Normal 46-116 [facility] Comment on above: Performed By: #### CMP, FT3, TSH, T4, LI PID ####[facility] Xtgvyglbnx05[address] [place], [place] [address]Dr. Yuki Diaz ALT [Catalytic activity/Vol] 15 U/L Critically low 16-63 [facility] Comment on above: Performed By: #### CMP, FT3, TSH, T4, LI PID ####[facility] Dadthfzcui703[address] [place], [place] [address]Dr. Yuki Diaz Anion gap [Moles/Vol] 13.2 mmol/L Normal [facility] Comment on above: Performed By: #### CMP, FT3, TSH, T4, LI PID ####[facility] Ltevzynsbq[address] [place], [place] [address]Dr. Yuki Diaz AST [Catalytic activity/Vol] 10 U/L Critically low 15-37 [facility] Comment on above: Performed By: #### CMP, FT3, TSH, T4, LI PID ####[facility] Jwiwirigif9[address] [place], [place] [address]Dr. Yuki Diaz Bilirubin [Mass/Vol] 0.7 mg/dL Normal 0.2-1.0 [facility] Comment on above: Performed By: #### CMP, FT3, TSH, T4, LI PID ####[facility] Hivrzwtkgl[address] [place], [place] [address]Dr. Yuki Diaz Calcium [Mass/Vol] 8.9 mg/dL Normal 8.5-10.1 [facility] Comment on above: Performed By: #### CMP, FT3, TSH, T4, LI PID ####[facility] Shvueuohyt[address] [place], [place] [address]Dr. Yuki Diaz Chloride [Moles/Vol] 105 mmol/L Normal 98-107 [facility] Comment on above: Performed By: #### CMP, FT3, TSH, T4, LI PID ####[facility] Imwdmygnzy326[address] [place], [place] [address]Dr. Yuki Diaz CO2 [Moles/Vol] 30.0 mmol/L Normal 21.0-32.0 [facility] Comment on above: Performed By: #### CMP, FT3, TSH, T4, LI PID ####[facility] Grixgrutpy60[address] [place], [place] [address]Dr. Yuki Diaz Creatinine [Mass/Vol] 2.36 mg/dL Critically high 0.70-1.30 [facility] Comment on above: Performed By: #### CMP, FT3, TSH, T4, LI PID ####[facility] Xyyznpwrzd[address] [place], [place] [address]Dr. Yuki Diaz EGFR-AF UKRAINIAN 32 mL/min/1.73m2 Critically low >=60 [facility] Comment on above: Performed By: #### CMP, FT3, TSH, T4, LI PID ####[facility] Nejbgsjhyu46[address] [place], [place] [address]Dr. Yuki Diaz EGFR-NON AF UKRAINIAN 27 mL/min/1.73m2 Critically low >=60 [facility] Comment on above: Performed By: #### CMP, FT3, TSH, T4, LI PID ####[facility] Ekudtmfjfg4[address] [place], [place] [address]Dr. Yuki Diaz Globulin (S) [Mass/Vol] 4.2 g/dL Normal [facility] Comment on above: Performed By: #### CMP, FT3, TSH, T4, LI PID ####[facility] Wgtblpezug7104 [place] [address]Dr. Yuki Diaz Glucose [Mass/Vol] 96 mg/dL Normal 74-106 [facility] Comment on above: Performed By: #### CMP, FT3, TSH, T4, LI PID ####[facility] Aedwqhdvlx7[address] [place], [place] [address]Dr. Yuki Diaz Potassium [Moles/Vol] 4.2 mmol/L Normal 3.5-5.1 [facility] Comment on above: Performed By: #### CMP, FT3, TSH, T4, LI PID ####[facility] Vosqkclffj[address] [place], [place] [address]Dr. Yuki Diaz Protein [Mass/Vol] 7.1 g/dL Normal 6.4-8.2 [facility] Comment on above: Performed By: #### CMP, FT3, TSH, T4, LI PID ####[facility] Bramzhwxas63[address] [place], [place] [address]Dr. Yuki Diaz Sodium [Moles/Vol] 144 mmol/L Normal 136-145 [facility] Comment on above: Performed By: #### CMP, FT3, TSH, T4, LI PID ####[facility] Dfvzchlqfu676[address] [place], [place] [address]Dr. Yuki Diaz Urea nitrogen [Mass/Vol] 28.0 mg/dL Critically high 7.0-18.0 [facility] Comment on above: Performed By: #### CMP, FT3, TSH, T4, LI PID ####[facility] Gcjwhgztlh[address] [place], [place] [address]Dr. Yuki Diaz Urea nitrogen/Creatin ine [Mass ratio] 11.9 mg/mg Normal [facility] Comment on above: Performed By: #### CMP, FT3, TSH, T4, LI PID ####[facility] Yvyjwphuow[address] [place], [place] [address]Dr. Yuki Diaz T4on 11-23-2022 T4 [Mass/Vol] 7.70 ug/dL Normal 4.50-12.10 [facility] Comment on above: Performed By: #### CMP, FT3, TSH, T4, LI PID ####[facility] [address]ucozd23[address] [place] [address]Dr. Yuki Diaz TSHon 11-23-2022 TSH 2.577 uIU/mL Normal 0.358-3.74 0 [facility] Comment on above: Performed By: #### CMP, FT3, TSH, T4, LI PID ####[facility] Vubttryrvr[address] [place], [place] [address]Dr. Yuki Diaz VITAMIN D 25 OHon 11-23-2022 VIT D 25-OH 35.8 ng/mL Normal [facility] Comment on above: Performed By: #### VITAD, PSASC ####[facility] Zlakobefyc227[address] [place], [place] [address]Dr. Yuki Diaz VIT D RANGES SEE BELOW Normal [facility] Comment on above: Result Comment: <20 ng/mL Vit D deficien t 20 - <30 ng/mL Vit D insufficient 30 - 100 ng/mL Vit D sufficient >100 ng/mL Potential Toxicity Performed By: #### V ITAD, PSASC ####[facility] Rmuhfciptg267[address] [place], [place] [address]Dr. Yuki Diaz BNPon 10-27-2022 Natriuretic peptide B (Bld) [Mass/Vol] 6821.0 pg/mL Critically high <=1,800.0 [facility] Comment on above: Performed By: #### CMP, BNP ####[facility] Geyrrccmqs[address] [place], [place] [address]Dr. Yuki Diaz CBC W MANUAL DIFFon 10-28-19 23 ACANTHOCYTES 1+ Normal [facility] Comment on above: Performed By: #### CBCMAN ####[facility] Txpkpjvrgn966[address] [place], [place] [address]Dr. Yuki Diaz ATYPICAL LYMPH # Normal [facility] Comment on above: Performed By: #### CBCMAN ####[facility] ostal Qutqqoeqik[address] [place], [place] [address]Dr. Yuki Diaz ATYPICAL LYMPH % Normal [facility] Comment on above: Performed By: #### CBCMAN ####[facility] ospital Cohqppitww7[address] [place] [address]Dr. Yuki Diaz BAND # 0.0 103/ul Normal 0.0-0.3 [facility] Comment on above: Performed By: #### CBCMAN ####[facility] ospital Gotsdwxxaz6259 [place] [address]Dr. Yialyssa Diaz BAND % 0 % Normal 0-5 [facility] Comment on above: Performed By: #### CBCMAN ####[facility] ospital Zkmxcwtxki2535 [place] [address]Dr. Yuki Diaz BASOM # 0.00 103/ul Normal 0.00-0.10 [facility] Comment on above: Performed By: #### CBCMAN ####[facility] ospital Lhycebgesk1913 [place] [address]Dr. Yuki Diaz BASOM % 0.0 % Critically low 0.2-2.0 [facility] Comment on above: Performed By: #### CBCMAN ####[facility] ospital Ekxldwcshz6049 [place] [address]Dr. Yuki Diaz BLAST # Normal [facility] Comment on above: Performed By: #### CBCMAN ####[facility] ospital Syonksmvzm3985 [place] [address]Dr. Yuki Diaz BLAST % Normal [facility] Comment on above: Performed By: #### CBCMAN ####[facility] ospital Cnfxrzhgka3663 [place] [address]Dr. Yuki Diaz CORRECTED WBC Normal 4.0-11.0 [facility] Comment on above: Performed By: #### CBCMAN ####[facility] ospital Azxdkfgagw6065 [place] [address]Dr. Yuki Diaz EOS # 0.00 103/ul Normal 0.00-0.70 [facility] Comment on above: Performed By: #### CBCMAN ####[facility] ospital Qpjxucspad5806 [place], [place] [address]Bx. Yuki Diaz EOS% 0.0 % Critically low 0.9-7.0 [facility] Comment on above: Performed By: #### CBCCHANTE ####[facility] ospital Iuhwvbxyvx8213 [place], [place] [address]Ag. Yuki Diaz HCT 27.5 % Critically low 42.0-54.0 [facility] Comment on above: Performed By: #### CBCCHANTE ####[facility] ospital Pzyrhfhysn1508 [place], [place] [address]Gb. Yuki Diaz HGB 8.7 g/dl Critically low 14.0-18.0 [facility] Comment on above: Performed By: #### CBCCHANTE ####[facility] ospital Empzsapbxy72[address] [place] [address]Dr. Yuki Diaz LYMPHM # 0.81 103/ul Critically low 1.20-3.80 [facility] Comment on above: Performed By: #### CBCCHANTE ####[facility] ospital Pfjgxuohat8161 [place], [place] [address]Sd. Yuki Diaz LYMPHM% 8.0 % Critically low 20.5-60.0 [facility] Comment on above: Performed By: #### CBCCHANTE ####[facility] ospital Bkngvrcdkg5972 [place] [address]Dr. Yuki Diaz MCH 28.2 pg Normal 25.9-34.0 [facility] Comment on above: Performed By: #### CBCCHANTE ####[facility] ospital Fibdescgou1189 [place], [place] [address]Eh. Yuki Diaz MCHC 31.6 g/dl Normal 29.9-35.2 [facility] Comment on above: Performed By: #### CBCCHANTE ####[facility] ospital Epqzrkmmdi6539 [place], [place] [address]Xh. Yuki Diaz MCV 89.0 fL Normal 80.0-94.0 [facility] Comment on above: Performed By: #### CBCCHANTE ####[facility] ospital Jvalddvbvp4263 [place] [address]Dr. Yuki Diaz METAMYELOCYTE # Normal [facility] Comment on above: Performed By: #### CBCMAN ####[facility] ospital Jhxzxacmec2623 [place] [id number]. Yuki Diaz METAMYELOCYTE % Normal [facility] Comment on above: Performed By: #### CBCCHANTE ####[facility] ospital Xiqwtgubas8003 [place] [address]Dr. Yuki Diaz MONOM# 0.40 103/ul Normal 0.30-0.80 [facility] Comment on above: Performed By: #### CBCCHANTE ####[facility] ospital Jspdbsybhj4492 [place] [address]Dr. Yuki Diaz MONOM% 4.0 % Normal 1.7-12.0 [facility] Comment on above: Performed By: #### CBCCHANTE ####[facility] ospital Lhvxmpzfjk[address] [place] [address]Dr. uYki Diaz MPV 10.4 fL Normal 9.5-13.5 [facility] Comment on above: Performed By: #### CBCCHANTE ####[facility] ospital Lbkrynnayd8172 [place] [address]Dr. Yuki Diaz MYELOCYTE # Normal [facility] Comment on above: Performed By: #### CBCCHANTE ####[facility] ospital Gxtlabqbjs4887 [place] [address]Dr. Yuki Diaz MYELOCYTE % Normal [facility] Comment on above: Performed By: #### CBCCHANTE ####[facility] ospital Qlzuopxzhg1314 [place] [address]Dr. Yuki Diaz NRBC Normal [facility] Comment on above: Performed By: #### CBCMAN ####[facility] ospital Jzqdhakddr9772 [place] [address]Dr. Yuki Diaz PLT 237 103/ul Normal 150-450 [facility] Comment on above: Performed By: #### CBCMAN ####[facility] ospital Oqlbfnnlab3467 [place], [place] [address]Hq. Yuki Diaz RBC 3.09 106/ul Critically low 4.70-6.10 [facility] Comment on above: Performed By: #### CBCMAN ####[facility] ospital Arxkvajgtt7695 [place] [id number]. Yuki Diaz RDW 14.7 % Normal 11.0-15.0 [facility] Comment on above: Performed By: #### CBCMAN ####[facility] ospital Sfarsyfcqq7527 [place] [address]Dr. Yuki Diaz SEG # 8.89 103/ul Critically high 1.40-6.50 [facility] Comment on above: Performed By: #### CBCMAN ####[facility] ospital Ijjqhwzgcv7328 [place] [address]Dr. Yuki Diaz SEG % 88.0 % Critically high 43.0-75.0 [facility] Comment on above: Performed By: #### CBCMAN ####[facility] ospital Bpqxysgroc7644 [place] [address]Dr. Yuki Diaz WBC 10.1 103/ul Normal 4.0-11.0 [facility] Comment on above: Performed By: #### CBCMAN ####[facility] ospital Ziwlvcupmo8266 [place] [address]Dr. Yuki Diaz POINT OF CARE GLUCOSEon 10-06 Glucose [Mass/Vol] 225 mg/dL Critically high 74-106 [facility] Comment on above: Performed By: #### POCGLUC ####[facility] Bfobwnrwij5910 [place] [address]Dr. Yuki Diaz Glucose [Mass/Vol] 214 mg/dL Critically high 74-106 [facility] Comment on above: Performed By: #### POCGLUC ####[facility] Xlundgqvws0479 [place] [id number]. Yuki Diaz PRBC LEUKOREDUCEDon 10-28-19 23 PRBC LEUKOREDUCED Normal [facility] Comment on above: Performed By: #### PRBC ####[facility] [place] Hglazlnjlq6333 [place] [address]Dr. Yuki Diaz PROF 14(COMP METB)on 023 Albumin [Mass/Vol] 1.8 g/dL Critically low 3.4-5.0 [facility] Comment on above: Performed By: #### CMP, BNP ####[facility] Kxygvohweu7[address] [place] [address]Dr. Yuki Diaz Albumin/Globulin [Mass ratio] 0.5 {ratio} Normal [facility] Comment on above: Performed By: #### CMP, BNP ####[facility] Wohaehbovb[address] [place], [place] [address]Dr. Yuki Diaz ALP [Catalytic activity/Vol] 66 U/L Normal 46-116 [facility] Comment on above: Performed By: #### CMP, BNP ####[facility] Pxswucsday970[address] [place], [place] [address]Dr. Yuki Diaz ALT [Catalytic activity/Vol] 13 U/L Critically low 16-63 [facility] Comment on above: Performed By: #### CMP, BNP ####[facility] Jawsgrclwh0135[address] [place], [place] [address]Dr. Yuki Diaz Anion gap [Moles/Vol] 11.8 mmol/L Normal [facility] Comment on above: Performed By: #### CMP, BNP ####[facility] Meuircwxkc315[address] [place], [place] [address]Dr. Yuki Diaz AST [Catalytic activity/Vol] 14 U/L Critically low 15-37 [facility] Comment on above: Performed By: #### CMP, BNP ####[facility] Mouypaoziw139[address] [place], [place] [address]Dr. Yuki Diaz Bilirubin [Mass/Vol] 0.4 mg/dL Normal 0.2-1.0 [facility] Comment on above: Performed By: #### CMP, BNP ####[facility] Hdcnitbqhk284786 [address] [place], [place] [address]Dr. Yuki Diaz Calcium [Mass/Vol] 8.2 mg/dL Critically low 8.5-10.1 [facility] Comment on above: Performed By: #### CMP, BNP ####[facility] Evpcijncky[address] [place] [address]Dr. Yuki Diaz Chloride [Moles/Vol] 103 mmol/L Normal 98-107 [facility] Comment on above: Performed By: #### CMP, BNP ####[facility] Bwipjiupkx3[address] [place], [place] [address]Dr. Yuki Diaz CO2 [Moles/Vol] 26.7 mmol/L Normal 21.0-32.0 [facility] Comment on above: Performed By: #### CMP, BNP ####[facility] Djaoxixffk215986 [address] [place], [place] [address]Dr. Yuki Diaz Creatinine [Mass/Vol] 2.62 mg/dL Critically high 0.70-1.30 [facility] Comment on above: Performed By: #### CMP, BNP ####[facility] Wotsoqkhpx489386 [address] [place], [place] [address]Dr. Yuki Joe EGFR-AF UKRAINIAN 29 mL/min/1.73m2 Critically low >=60 [facility] Comment on above: Performed By: #### CMP, BNP ####[facility] Xkketrexbr977[address] [place], [place] [address]Dr. Yuki Diaz EGFR-NON AF UKRAINIAN 24 mL/min/1.73m2 Critically low >=60 [facility] Comment on above: Performed By: #### CMP, BNP ####[facility] Mkmmosrica997486 [address] [place], [place] [address]Dr. Yuki Diaz Globulin (S) [Mass/Vol] 3.9 g/dL Normal [facility] Comment on above: Performed By: #### CMP, BNP ####[facility] Ngdfpkupkp217186 [address] [place], [place] [address]Dr. Yuki Joe Glucose [Mass/Vol] 209 mg/dL Critically high 74-106 [facility] Comment on above: Performed By: #### CMP, BNP ####[facility] Kvwjtnlusp365186 [address] [place], [place] [address]Dr. Yuki Diaz Potassium [Moles/Vol] 4.5 mmol/L Normal 3.5-5.1 [facility] Comment on above: Performed By: #### CMP, BNP ####[facility] Xufaehcwpv57[address] [place] [address]Dr. Yuki Diaz Protein [Mass/Vol] 5.7 g/dL Critically low 6.4-8.2 [facility] Comment on above: Performed By: #### CMP, BNP ####[facility] Qwyheujdmv0960[address] [place], [place] [address]Dr. Yuki Diaz Sodium [Moles/Vol] 137 mmol/L Normal 136-145 [facility] Comment on above: Performed By: #### CMP, BNP ####[facility] Gxfavgmbbd188986 [address] [place], [place] [address]Dr. Yuki Diaz Urea nitrogen [Mass/Vol] 67.0 mg/dL Critically high 7.0-18.0 [facility] Comment on above: Performed By: #### CMP, BNP ####[facility] Odkjcowspa998[address] [place], [place] [address]Dr. Yuki Diaz Urea nitrogen/Creatin ine [Mass ratio] 25.6 mg/mg Normal [facility] Comment on above: Performed By: #### CMP, BNP ####[facility] Qtsrqatkrg2309[address] [place], [place] [address]Dr. Yuki Diaz BNPon 10-26-2022 Natriuretic peptide B (Bld) [Mass/Vol] 3539.0 pg/mL Critically high <=1,800.0 [facility] Comment on above: Performed By: #### CMP, BNP ####[facility] Yvzbpswupw087[address] [place], [place] [address]Dr. Yuki Diaz CBC W MANUAL DIFFon 10-27-19 23 ATYPICAL LYMPH # Normal [facility] Comment on above: Performed By: #### CBCMAN ####[facility] Kpftbkksjg733[address] [place], [place] [address]Dr. Yuki Diaz ATYPICAL LYMPH % Normal [facility] Comment on above: Performed By: #### CBCMAN ####[facility] ospital Wubugomkgg4[address] [place], [place] [address]Dr. Yilan Diaz BAND # 0.0 103/ul Normal 0.0-0.3 [facility] Comment on above: Performed By: #### CBCMAN ####[facility] ospital Zwpsppjvgo65[address] [place] [address]Dr. Yuki Diaz BAND % 0 % Normal 0-5 [facility] Comment on above: Performed By: #### CBCMAN ####[facility] ospital Xddjrhxzrn4636 [place] [address]Dr. Yuki Diaz BASOM # 0.00 103/ul Normal 0.00-0.10 [facility] Comment on above: Performed By: #### CBCMAN ####[facility] ospital Ggycsajocr0803 [place] [address]Dr. Yuki Diaz BASOM % 0.0 % Critically low 0.2-2.0 [facility] Comment on above: Performed By: #### CBCMAN ####[facility] ospital Wkpbulgtsi8533 [place] [address]Dr. Yuki Diaz BLAST # Normal [facility] Comment on above: Performed By: #### CBCMAN ####[facility] ospital Ilfgxzsozu3615 [place] [address]Dr. Yuki Diaz BLAST % Normal [facility] Comment on above: Performed By: #### CBCMAN ####[facility] ospital Jonqidwxta2736 [place] [address]Dr. Yuki Diaz CORRECTED WBC Normal 4.0-11.0 [facility] Comment on above: Performed By: #### CBCMAN ####[facility] ospital Jugwpzlcom8085 [place] [address]Dr. Yuki Diaz EOS # 0.00 103/ul Normal 0.00-0.70 [facility] Comment on above: Performed By: #### CBCMAN ####[facility] ospital Sfbtbacoko1469 [place] [address]Dr. Yuki Diaz EOS% 0.0 % Critically low 0.9-7.0 [facility] Comment on above: Performed By: #### CBCMAN ####[facility] ospital Zmyuyxijvy0450 [place] [id number]. Yuki Diaz HCT 28.9 % Critically low 42.0-54.0 [facility] Comment on above: Performed By: #### CBCCHANTE ####[facility] ospital Zfgvrzfymm9277 [place] [phone]. Yuki Diaz HGB 9.1 g/dl Critically low 14.0-18.0 [facility] Comment on above: Performed By: #### CBCCHANTE ####[facility] ospital Rrrdbjbyuy0323 [place] [address]Dr. Yuki Diaz LYMPHM # 0.37 103/ul Critically low 1.20-3.80 [facility] Comment on above: Performed By: #### CBCCHANTE ####[facility] ospital Iusheruhfl5935 [place] [address]Dr. Yuki Diaz LYMPHM% 3.0 % Critically low 20.5-60.0 [facility] Comment on above: Performed By: #### CBCCHANTE ####[facility] ospital Dblyrxccjn5511 [place] [phone]. Yuki Diaz MCH 28.4 pg Normal 25.9-34.0 [facility] Comment on above: Performed By: #### CBCCHANTE ####[facility] ospital Oosbekbvgx0864 [place] [address]Dr. Yuki Diaz MCHC 31.5 g/dl Normal 29.9-35.2 [facility] Comment on above: Performed By: #### CBCCHANTE ####[facility] ospital Zfihbxyvfc5028 [place] [address]Dr. Yuki Diaz MCV 90.3 fL Normal 80.0-94.0 [facility] Comment on above: Performed By: #### CBCCHANTE ####[facility] ospital Htcrrfmppy5360 [place] [phone]. Yuki Diaz METAMYELOCYTE # Normal [facility] Comment on above: Performed By: #### CBCCHANTE ####[facility] ospital Rsxxnvcbcx6642 [place] [address]Dr. Yuki Diaz METAMYELOCYTE % Normal [facility] Comment on above: Performed By: #### CBCCHANTE ####[facility] ospital Cltjkxrxix3616 [place] [address]Dr. Yuki Diaz MONOM# 0.24 103/ul Critically low 0.30-0.80 [facility] Comment on above: Performed By: #### CBCCHANTE ####[facility] ospital Pfhpltveuo3756 [place] [address]Dr. Yuki Diaz MONOM% 2.0 % Normal 1.7-12.0 [facility] Comment on above: Performed By: #### CBCCHANTE ####[facility] ospital Iynxtphelv8850 [place] [address]Dr. Yuki Diaz MPV 10.3 fL Normal 9.5-13.5 [facility] Comment on above: Performed By: #### CBCCHANTE ####[facility] ospital Cvqqfxyrvl6934 [place] [address]Dr. Yuki Diaz MYELOCYTE # Normal [facility] Comment on above: Performed By: #### CBCCHANTE ####[facility] ospital Wbykwoyeqs5705 [place] [address]Dr. Yuki Diaz MYELOCYTE % Normal [facility] Comment on above: Performed By: #### CBCCHANTE ####[facility] o[facility] Yxtnqahebv6264 [place] [address]Dr. Yuki Diaz NRBC Normal [facility] Comment on above: Performed By: #### CBCCHANTE ####[facility] o[facility] Huqdxusjxm5985 [place] [address]Dr. Yuki Diaz PLT 215 103/ul Normal 150-450 [facility] Comment on above: Performed By: #### CBCCHANTE ####[facility] ospital Xhxfuaxyvs6884 [place] [address]Dr. Yuki Diaz RBC 3.20 106/ul Critically low 4.70-6.10 [facility] Comment on above: Performed By: #### CBCCHANTE ####[facility] Jdsssxwyfe1010 [place], [place] [address]Cz. Yuki Diaz RDW 14.7 % Normal 11.0-15.0 [facility] Comment on above: Performed By: #### CBCMAN ####[facility] Ofiuvqhmud5863 [place], [place] [address]Jm. Yuki Diaz SEG # 11.59 103/ul Critically high 1.40-6.50 [facility] Comment on above: Performed By: #### CBCMAN ####[facility] Pvhexmlopt0713 [place] [phone]. Yuki Diaz SEG % 95.0 % Critically high 43.0-75.0 [facility] Comment on above: Performed By: #### CBCMAN ####[facility] Pvvyaxpetz5872 [place] [address]Dr. Yuki Diaz WBC 12.2 103/ul Critically high 4.0-11.0 [facility] Comment on above: Performed By: #### CBCMAN ####[facility] Gsktwkhrsq9407 [place] [phone]. Yuki Diaz POINT OF CARE GLUCOSEon 10-06 Glucose [Mass/Vol] 292 mg/dL Critically high 74-106 [facility] Comment on above: Performed By: #### POCGLUC ####[facility] Vydpgzuney7298 [place] [phone]. Yuki Diaz Glucose [Mass/Vol] 194 mg/dL Critically high 74-106 [facility] Comment on above: Performed By: #### POCGLUC ####[facility] Xuhkxdgfjt6492 [place] [address]Dr. Yuki Diaz Glucose [Mass/Vol] 280 mg/dL Critically high 74-106 [facility] Comment on above: Performed By: #### POCGLUC ####[facility] Zrqvyvdgkz1485 [place] [phone]. Yuki Diaz Glucose [Mass/Vol] 212 mg/dL Critically high 74-106 [facility] Comment on above: Performed By: #### POCGLUC ####[facility] Iadfnelxtc2185 [place] [address]Dr. Yuki Diaz Glucose [Mass/Vol] 148 mg/dL Critically high 74-106 [facility] Comment on above: Performed By: #### POCGLUC ####[facility] Mmcgtrdfko840[address] [place], [place] [address]Dr. Yuki Diaz PRBC LEUKOREDUCEDon 10-27-19 23 PRBC LEUKOREDUCED Normal [facility] Comment on above: Performed By: #### PRBC ####[facility] pital Nonnhakyir3856 [place] [address]Dr. Yuki Diaz PROF 14(COMP METB)on 023 Albumin [Mass/Vol] 2.0 g/dL Critically low 3.4-5.0 [facility] Comment on above: Performed By: #### CMP, BNP ####[facility] Fohpsdonzd933186 [address] [place], [place] [address]Dr. Yuki Diaz Albumin/Globulin [Mass ratio] 0.5 {ratio} Normal [facility] Comment on above: Performed By: #### CMP, BNP ####[facility] Hhrliatrrc959[address] [place], [place] [address]Dr. Yuki Diaz ALP [Catalytic activity/Vol] 75 U/L Normal 46-116 [facility] Comment on above: Performed By: #### CMP, BNP ####[facility] Uuzxsvqgua0809[address] [place], [place] [address]Dr. Yuki Diaz ALT [Catalytic activity/Vol] 10 U/L Critically low 16-63 [facility] Comment on above: Performed By: #### CMP, BNP ####[facility] Lnbhxpslco5544[address] [place], [place] [address]Dr. Yuki Diaz Anion gap [Moles/Vol] 13.9 mmol/L Normal [facility] Comment on above: Performed By: #### CMP, BNP ####[facility] Oihesfvfww830986 [address] [place], [place] [address]Dr. Yuki Diaz AST [Catalytic activity/Vol] 13 U/L Critically low 15-37 [facility] Comment on above: Performed By: #### CMP, BNP ####[facility] Jqdviljbca318[address] [place], [place] [address]Dr. Yuki Diaz Bilirubin [Mass/Vol] 0.7 mg/dL Normal 0.2-1.0 [facility] Comment on above: Performed By: #### CMP, BNP ####[facility] Udppbkzbtz605[address] [place], [place] [address]Dr. Yuki Diaz Calcium [Mass/Vol] 8.5 mg/dL Normal 8.5-10.1 [facility] Comment on above: Performed By: #### CMP, BNP ####[facility] Ruqiafyerv733786 [address] [place], [place] [address]Dr. Yuki Diaz Chloride [Moles/Vol] 103 mmol/L Normal 98-107 [facility] Comment on above: Performed By: #### CMP, BNP ####[facility] Xgqjlzmsnu3789[address] [place], [place] [address]Dr. Yuki Diaz CO2 [Moles/Vol] 25.8 mmol/L Normal 21.0-32.0 [facility] Comment on above: Performed By: #### CMP, BNP ####[facility] Moundgoxlw838[address] [place], [place] [address]Dr. Yuki Diaz Creatinine [Mass/Vol] 2.87 mg/dL Critically high 0.70-1.30 [facility] Comment on above: Performed By: #### CMP, BNP ####[facility] Tnknedroqh468[address] [place], [place] [address]Dr. Yuki Diaz EGFR-AF UKRAINIAN 26 mL/min/1.73m2 Critically low >=60 [facility] Comment on above: Performed By: #### CMP, BNP ####[facility] Khzzydputj296[address] [place], [place] [address]Dr. Yuki Diaz EGFR-NON AF UKRAINIAN 21 mL/min/1.73m2 Critically low >=60 [facility] Comment on above: Performed By: #### CMP, BNP ####[facility] Ajkpuohlft7879[address] [place], [place] [address]Dr. Yuki Diaz Globulin (S) [Mass/Vol] 4.0 g/dL Normal [facility] Comment on above: Performed By: #### CMP, BNP ####[facility] Vzdwnvuwhf9458 [place] [address]Dr. Yuki Diaz Glucose [Mass/Vol] 209 mg/dL Critically high 74-106 [facility] Comment on above: Performed By: #### CMP, BNP ####[facility] Csqnofyijx9209 [place] [address]Dr. Yuki Diaz Potassium [Moles/Vol] 4.7 mmol/L Normal 3.5-5.1 [facility] Comment on above: Performed By: #### CMP, BNP ####[facility] Etsqzpxtls2215[address] [place], [place] [address]Dr. Yuki Diaz Protein [Mass/Vol] 6.0 g/dL Critically low 6.4-8.2 [facility] Comment on above: Performed By: #### CMP, BNP ####[facility] Objszscaeq7501[address] [place], [place] [address]Dr. Yuki Diaz Sodium [Moles/Vol] 138 mmol/L Normal 136-145 [facility] Comment on above: Performed By: #### CMP, BNP ####[facility] Wsyryihoei906[address] [place], [place] [address]Dr. Yuki Diaz Urea nitrogen [Mass/Vol] 58.0 mg/dL Critically high 7.0-18.0 [facility] Comment on above: Performed By: #### CMP, BNP ####[facility] Fcsrdoqwvq398[address] [place], [place] [address]Dr. Yuki Diaz Urea nitrogen/Creatin ine [Mass ratio] 20.2 mg/mg Normal [facility] Comment on above: Performed By: #### CMP, BNP ####[facility] Lhiqvqjgcj047[address] [place], [place] [address]Dr. Yuki Diaz XR KNEE LT 4V or >on 023 XR KNEE LT 4V or > Normal [facility] CBC AUTO DIFFon 10-25-2022 BASO # 0.0 103/ul Normal 0.0-0.1 [facility] Comment on above: Performed By: #### CBC ####[facility] Qzsyotwolt8881 [place] [address]Dr. Yuki Diaz Basophils/100 WBC (Bld) 0.0 % Critically low 0.2-2.0 [facility] Comment on above: Performed By: #### CBC ####[facility] Cwpwpbnwur167[address] [place], [place] [address]Dr. Yuki Diaz EO # 0.0 103/ul Normal 0.0-0.7 [facility] Comment on above: Performed By: #### CBC ####[facility] Vveozvkyms346[address] [place], [place] [address]Dr. Yuki Diaz Eosinophils/100 WBC (Bld) 0.0 % Critically low 0.9-7.0 [facility] Comment on above: Performed By: #### CBC ####[facility] Kxgrmgnijl3236[address] [place], [place] [address]Dr. Yuki Diaz Erythrocyte distribution width (RBC) [Ratio] 14.7 % Normal 11.0-15.0 [facility] Comment on above: Performed By: #### CBC ####[facility] Tfnydpovel000[address] [place], [place] [address]Dr. Yuki Diaz Hematocrit (Bld) [Volume fraction] 30.9 % Critically low 42.0-54.0 [facility] Comment on above: Performed By: #### CBC ####[facility] Hvcbwdcplj256[address] [place], [place] [address]Dr. Yuki Diaz Hemoglobin (Bld) [Mass/Vol] 9.6 g/dL Critically low 14.0-18.0 [facility] Comment on above: Result Comment: pt. rcvd. blood Performed By: #### C BC ####[facility] Npkjcbrbqw75[address] [place], [place] [address]Dr. Yuki Diaz IG # 0.06 10e3/ul Critically high 0.00-0.03 [facility] Comment on above: Performed By: #### CBC ####[facility] Arogecoprr0817[address] [place], [place] [address]Dr. Monsealyssa Diaz IG % 0.5 % Normal 0.0-0.5 [facility] Comment on above: Performed By: #### CBC ####[facility] ital Geyuqkbdyb6749 [place] [address]Dr. Yuki Diaz LYMPH # 0.4 103/ul Critically low 1.2-3.8 [facility] Comment on above: Performed By: #### CBC ####[facility] ital Gsdhdadain4536 [place] [address]Dr. Yuki Diaz Lymphocytes/100 WBC (Bld) 3.5 % Critically low 20.5-60.0 [facility] Comment on above: Performed By: #### CBC ####[facility] ital Cweqlawyfu8148 [place] [address]Dr. Yuki Diaz MANUAL DIFF REQ NO Normal [facility] Comment on above: Performed By: #### CBC ####[facility] Wrbulyozjp8214 [place] [address]Dr. Yuki Diaz MCH (RBC) [Entitic mass] 28.3 pg Normal 25.9-34.0 [facility] Comment on above: Performed By: #### CBC ####[facility] Vdnqwwmram1864 [place] [address]Dr. Yuki Diaz MCHC (RBC) [Mass/Vol] 31.1 g/dL Normal 29.9-35.2 [facility] Comment on above: Performed By: #### CBC ####[facility] Szcrrtlavy8317 [place] [address]Dr. Yuki Diaz MCV (RBC) [Entitic vol] 91.2 fL Normal 80.0-94.0 [facility] Comment on above: Performed By: #### CBC ####[facility] Ztowpycrkh5598 [place] [address]Dr. Yuki Diaz MONO # 0.5 103/ul Normal 0.3-0.8 [facility] Comment on above: Performed By: #### CBC ####[facility] Dylvyokadu2398 [place] [address]Dr. Yuki Diaz Monocytes/100 WBC (Bld) 4.4 % Normal 1.7-12.0 [facility] Comment on above: Performed By: #### CBC ####[facility] ital Qozfndvrzh8863 [place] [address]Dr. Yuki Diaz NEUT # 10.8 103/ul Critically high 1.4-6.5 [facility] Comment on above: Performed By: #### CBC ####[facility] ital Yafnqcugbs9528 [place] [address]Dr. Yuki Diaz Neutrophils/100 WBC (Bld) 91.6 % Critically high 43.0-75.0 [facility] Comment on above: Performed By: #### CBC ####[facility] ital Nblzqcsvuq3361 [place] [address]Dr. Yuki Diaz Platelet mean volume (Bld) [Entitic vol] 10.1 fL Normal 9.5-13.5 [facility] Comment on above: Performed By: #### CBC ####[facility] Dezszhexds9532 [place] [address]Dr. Yuki Diaz PLT 223 103/ul Normal 150-450 [facility] Comment on above: Performed By: #### CBC ####[facility] Rbflrzffdo4130 [place] [address]Dr. Yuki Diaz RBC 3.39 106/ul Critically low 4.70-6.10 [facility] Comment on above: Performed By: #### CBC ####[facility] Kzlicuxvps0939 [place] [address]Dr. Yuki Diaz WBC 11.8 103/ul Critically high 4.0-11.0 [facility] Comment on above: Performed By: #### CBC ####[facility] Llamecvpoh6569 [place] [address]Dr. Yuki Diaz BASO # 0.0 103/ul Normal 0.0-0.1 [facility] Comment on above: Performed By: #### CBC ####[facility] Taensscrgc3317 [place] [address]Dr. Yuki Diaz Basophils/100 WBC (Bld) 0.1 % Critically low 0.2-2.0 [facility] Comment on above: Performed By: #### CBC ####[facility] Xdsictaibg7587 [place] [address]Dr. Yuki Diaz EO # 0.0 103/ul Normal 0.0-0.7 [facility] Comment on above: Performed By: #### CBC ####[facility] Rlsnvehxrz8742 [place] [address]Dr. Yuki Diaz Eosinophils/100 WBC (Bld) 0.2 % Critically low 0.9-7.0 [facility] Comment on above: Performed By: #### CBC ####[facility] Hhbbuwdonr8494 [place] [address]Dr. Yuki Diaz Erythrocyte distribution width (RBC) [Ratio] 15.1 % Critically high 11.0-15.0 [facility] Comment on above: Performed By: #### CBC ####[facility] Cmmdjhriqw5470 [place] [address]Dr. Yuki Diaz Hematocrit (Bld) [Volume fraction] 23.7 % Critically low 42.0-54.0 [facility] Comment on above: Performed By: #### CBC ####[facility] Mihvlhyqpw1282 [place] [address]Dr. Yuki Diaz Hemoglobin (Bld) [Mass/Vol] 7.4 g/dL Critically low 14.0-18.0 [facility] Comment on above: Performed By: #### CBC ####[facility] Jbxdtpasej0863 [place] [address]Dr. Yuki Diaz IG # 0.07 10e3/ul Critically high 0.00-0.03 [facility] Comment on above: Performed By: #### CBC ####[facility] Qhrkotgizf6332 [place] [address]Dr. Yuki Diaz IG % 0.6 % Critically high 0.0-0.5 [facility] Comment on above: Performed By: #### CBC ####[facility] Teidoleklp5683 [place] [address]Dr. Yuki Diaz LYMPH # 0.8 103/ul Critically low 1.2-3.8 [facility] Comment on above: Performed By: #### CBC ####[facility] Vpmwngqtew3752 [place] [address]Dr. Yuki Diaz Lymphocytes/100 WBC (Bld) 6.6 % Critically low 20.5-60.0 [facility] Comment on above: Performed By: #### CBC ####[facility] ital Eylakvgbvq2638 [place] [address]Dr. Monsealyssa Diaz MANUAL DIFF REQ NO Normal [facility] Comment on above: Performed By: #### CBC ####[facility] Nxweqfxtgt8935 [place] [address]Dr. Yuki Diaz MCH (RBC) [Entitic mass] 28.1 pg Normal 25.9-34.0 [facility] Comment on above: Performed By: #### CBC ####[facility] Lszxxngmvl6233 [place] [address]Dr. Monsealyssa Diaz MCHC (RBC) [Mass/Vol] 31.2 g/dL Normal 29.9-35.2 [facility] Comment on above: Performed By: #### CBC ####[facility] Aeyddakqym0992 [place] [address]Dr. Monsealyssa Diaz MCV (RBC) [Entitic vol] 90.1 fL Normal 80.0-94.0 [facility] Comment on above: Performed By: #### CBC ####[facility] Jhsdyrvted6341 [place] [address]Dr. Monsealyssa Diaz MONO # 1.5 103/ul Critically high 0.3-0.8 [facility] Comment on above: Performed By: #### CBC ####[facility] Ghmsqxffzt9847 [place] [address]Dr. Monsealyssa Diaz Monocytes/100 WBC (Bld) 11.5 % Normal 1.7-12.0 [facility] Comment on above: Performed By: #### CBC ####[facility] Kqezckfpzn4967 [place] [address]Dr. Yuki Diaz NEUT # 10.2 103/ul Critically high 1.4-6.5 [facility] Comment on above: Performed By: #### CBC ####[facility] Dzbmotczkx0323 [place] [address]Dr. Yuki Diaz Neutrophils/100 WBC (Bld) 81.0 % Critically high 43.0-75.0 [facility] Comment on above: Performed By: #### CBC ####[facility] ital Qydyszbgjn3989 [place] [address]Dr. Yuki Diaz Platelet mean volume (Bld) [Entitic vol] 10.7 fL Normal 9.5-13.5 [facility] Comment on above: Performed By: #### CBC ####[facility] ital Lwpkelpklg2341 [place] [address]Dr. Yuki Diaz PLT 204 103/ul Normal 150-450 [facility] Comment on above: Performed By: #### CBC ####[facility] [facility] [address] [place] [address]Dr. Yuki Diaz RBC 2.63 106/ul Critically low 4.70-6.10 [facility] Comment on above: Performed By: #### CBC ####[facility] Ijrjllamue[address] [place] [address]Dr. Yuki Diaz WBC 12.6 103/ul Critically high 4.0-11.0 [facility] Comment on above: Performed By: #### CBC ####[facility] Ozziwfdaax[address] [place] [address] Y[address] CT ABD/PELVIS WO CONon 10-25 CT ABD/PELVIS WO CON Normal [facility] CT PELVIS WO CONon 3 CT PELVIS WO CON Normal [facility] POINT OF CARE GLUCOSEon 10-06 Glucose [Mass/Vol] 65 mg/dL Critically low 74-106 [facility] Comment on above: Performed By: #### POCGLUC ####[facility] Xxbunodcnv407[address] [place], [place] [address]Dr. Yuki Diaz Glucose [Mass/Vol] 137 mg/dL Critically high 74-106 [facility] Comment on above: Performed By: #### POCGLUC ####[facility] Osptsczqkw[address] [place], [place] [id number]. Yuki Diaz Glucose [Mass/Vol] 118 mg/dL Critically high 74-106 [facility] Comment on above: Performed By: #### POCGLUC ####[facility] Mbywynqegc[address] [place] [address]Dr. Yuki Diaz PROF 14(COMP METB)on 10-25- 023 Albumin [Mass/Vol] 2.2 g/dL Critically low 3.4-5.0 [facility] Comment on above: Performed By: #### CMP ####[facility] Igsxfnanjh9[address] [place] [address]Dr. Yuki Diaz Albumin/Globulin [Mass ratio] 0.6 {ratio} Normal [facility] Comment on above: Performed By: #### CMP ####[facility] Iclfhjikjr8735 [place] [address]Dr. Yuki Diaz ALP [Catalytic activity/Vol] 64 U/L Normal 46-116 [facility] Comment on above: Performed By: #### CMP ####[facility] Ixwgxhqwbh9575 [place] [address]Dr. Yuki Diaz ALT [Catalytic activity/Vol] 11 U/L Critically low 16-63 [facility] Comment on above: Performed By: #### CMP ####[facility] Pjdozgajuh0963 [place] [address]Dr. Yuki Diaz Anion gap [Moles/Vol] 13.5 mmol/L Normal [facility] Comment on above: Performed By: #### CMP ####[facility] Mkzeczycvc5816 [place] [address]Dr. Yuki Diaz AST [Catalytic activity/Vol] 12 U/L Critically low 15-37 [facility] Comment on above: Performed By: #### CMP ####[facility] Btihgnjucj5840 [place] [address]Dr. Yuki Diaz Bilirubin [Mass/Vol] 0.8 mg/dL Normal 0.2-1.0 [facility] Comment on above: Performed By: #### CMP ####[facility] Awjvqruvnc2603 [place] [address]Dr. Yuki Diaz Calcium [Mass/Vol] 8.5 mg/dL Normal 8.5-10.1 [facility] Comment on above: Performed By: #### CMP ####[facility] Yfwwqmskwm5159 [place] [address]Dr. Yuki Diaz Chloride [Moles/Vol] 100 mmol/L Normal 98-107 [facility] Comment on above: Performed By: #### CMP ####[facility] Dpldbxhppz9647 [place] [address]Dr. Monsealyssa Joe CO2 [Moles/Vol] 28.1 mmol/L Normal 21.0-32.0 [facility] Comment on above: Performed By: #### CMP ####[facility] Eywnmzhgji7[address] [place] [address]Dr. Yuki Diaz Creatinine [Mass/Vol] 2.93 mg/dL Critically high 0.70-1.30 [facility] Comment on above: Performed By: #### CMP ####[facility] Sssxuhfbij6679 [place] [address]Dr. Yuki Diaz EGFR-AF UKRAINIAN 25 mL/min/1.73m2 Critically low >=60 [facility] Comment on above: Performed By: #### CMP ####[facility] Npuhnidafy55[address] [place] [address]Dr. Yuki Diaz EGFR-NON AF UKRAINIAN 21 mL/min/1.73m2 Critically low >=60 [facility] Comment on above: Performed By: #### CMP ####[facility] Ispznmcsmu0890 [place] [address]Dr. Yuki Diaz Globulin (S) [Mass/Vol] 3.7 g/dL Normal [facility] Comment on above: Performed By: #### CMP ####[facility] Msknwbhawm1063 [place] [address]Dr. Yuki Diaz Glucose [Mass/Vol] 112 mg/dL Critically high 74-106 [facility] Comment on above: Performed By: #### CMP ####[facility] Chhljbyher7603 [place] [address]Dr. Yuki Diaz Potassium [Moles/Vol] 4.6 mmol/L Normal 3.5-5.1 [facility] Comment on above: Performed By: #### CMP ####[facility] Nlwvdpbczo2225 [place] [address]Dr. Yuki Diaz Protein [Mass/Vol] 5.9 g/dL Critically low 6.4-8.2 [facility] Comment on above: Performed By: #### CMP ####[facility] ital Iyddjzgcec2495 [place] [address]Dr. Yuki Diaz Sodium [Moles/Vol] 137 mmol/L Normal 136-145 [facility] Comment on above: Performed By: #### CMP ####[facility] Tuahwpkfir6288 [place] [address]Dr. Yuki Diaz Urea nitrogen [Mass/Vol] 56.0 mg/dL Critically high 7.0-18.0 [facility] Comment on above: Performed By: #### CMP ####[facility] Rwzbvkacbg[address] [place], [place] [address]Dr. Yuki Diaz Urea nitrogen/Creatin ine [Mass ratio] 19.1 mg/mg Normal [facility] Comment on above: Performed By: #### CMP ####[facility] Ajlodmxwwa4[address] [place], [place] [address]Dr. Yuki Diaz TYPE AND SCREENon 10-25-2022 TYPE AND SCREEN Negative Normal [facility] Comment on above: Performed By: #### TNS ####[facility] Ymeowwvdlu107[address] [place], [place] [address]Dr. Yuki Diaz XR CHEST 1 Von 10-25-2022 XR CHEST 1 V Normal [facility] CBC AUTO DIFFon 10-24-2022 BASO # 0.0 103/ul Normal 0.0-0.1 [facility] Comment on above: Performed By: #### CBC ####[facility] Airtemlltq75[address] [place] [address]Dr. Yuki Diaz Basophils/100 WBC (Bld) 0.1 % Critically low 0.2-2.0 [facility] Comment on above: Performed By: #### CBC ####[facility] Qklhmfdzwk0121 [place] [address]Dr. Yuki Diaz EO # 0.0 103/ul Normal 0.0-0.7 [facility] Comment on above: Performed By: #### CBC ####[facility] Gloaojlqmd0693 [place] [address]Dr. Yuki Diaz Eosinophils/100 WBC (Bld) 0.0 % Critically low 0.9-7.0 [facility] Comment on above: Performed By: #### CBC ####[facility] Pnnurxfvwp1036 [place] [address]Dr. Yuki Diaz Erythrocyte distribution width (RBC) [Ratio] 15.2 % Critically high 11.0-15.0 [facility] Comment on above: Performed By: #### CBC ####[facility] Vfxuwngpfr0059[address] [place], [place] [address]Dr. Yuki Diaz Hematocrit (Bld) [Volume fraction] 27.4 % Critically low 42.0-54.0 [facility] Comment on above: Performed By: #### CBC ####[facility] Wwxgymxrcb7649 [place] [address]Dr. Yuki Diaz Hemoglobin (Bld) [Mass/Vol] 8.4 g/dL Critically low 14.0-18.0 [facility] Comment on above: Performed By: #### CBC ####[facility] Mvwfvvdpud8633 [place] [address]Dr. Yuki Diaz IG # 0.13 10e3/ul Critically high 0.00-0.03 [facility] Comment on above: Performed By: #### CBC ####[facility] Onftyltxci2719 [place] [address]Dr. Yuki Diaz IG % 0.7 % Critically high 0.0-0.5 [facility] Comment on above: Performed By: #### CBC ####[facility] Awhuostepp5[address] [place], [place] [address]Dr. Yuki Diaz LYMPH # 1.0 103/ul Critically low 1.2-3.8 [facility] Comment on above: Performed By: #### CBC ####[facility] Hdxpbecdaw2689 [place] [address]Dr. Yuki Diaz Lymphocytes/100 WBC (Bld) 5.5 % Critically low 20.5-60.0 [facility] Comment on above: Performed By: #### CBC ####[facility] Tgdrjddlpr3062 [place] [address]DrBebo Diaz MANUAL DIFF REQ NO Normal [facility] Comment on above: Performed By: #### CBC ####[facility] Pyhkbrzmlg7289 [place] [address]Dr. Yuki Diaz MCH (RBC) [Entitic mass] 27.8 pg Normal 25.9-34.0 [facility] Comment on above: Performed By: #### CBC ####[facility] Tcxwzjxolb3436 [place] [address]Dr. Yuki Diaz MCHC (RBC) [Mass/Vol] 30.7 g/dL Normal 29.9-35.2 [facility] Comment on above: Performed By: #### CBC ####[facility] Amyhphzigz5888 [place] [address]Dr. Yuki Diaz MCV (RBC) [Entitic vol] 90.7 fL Normal 80.0-94.0 [facility] Comment on above: Performed By: #### CBC ####[facility] Hmktlaawcm0146 [place] [address]Dr. Yuki Diaz MONO # 2.8 103/ul Critically high 0.3-0.8 [facility] Comment on above: Performed By: #### CBC ####[facility] Lupjdcbgsi3563 [place] [address]DrBebo Diaz Monocytes/100 WBC (Bld) 15.0 % Critically high 1.7-12.0 [facility] Comment on above: Performed By: #### CBC ####[facility] Tevxrlenia3061 [place] [address]Dr. Yuki Diaz NEUT # 14.9 103/ul Critically high 1.4-6.5 [facility] Comment on above: Performed By: #### CBC ####[facility] Gmkbhwgasu4540 [place] [address]DrBebo Diaz Neutrophils/100 WBC (Bld) 78.7 % Critically high 43.0-75.0 [facility] Comment on above: Performed By: #### CBC ####[facility] Ejokgnrytv1215 [place] [address]DrBebo Diaz Platelet mean volume (Bld) [Entitic vol] 10.8 fL Normal 9.5-13.5 [facility] Comment on above: Performed By: #### CBC ####[facility] Ilawiuwlvu3691 [place] [address]DrBebo Diaz PLT 212 103/ul Normal 150-450 [facility] Comment on above: Performed By: #### CBC ####[facility] Shhxsomrhl1628 [place] [address]DrBebo Diaz RBC 3.02 106/ul Critically low 4.70-6.10 [facility] Comment on above: Performed By: #### CBC ####[facility] Ffjbehabpg5693 [place] [address]DrBebo Diaz WBC 18.9 103/ul Critically high 4.0-11.0 [facility] Comment on above: Performed By: #### CBC ####[facility] Yoqpwwnscx7[address] [place] [address] CT KNEE RT WO CONon 10-25-19 CT KNEE RT WO CON Normal [facility] POINT OF CARE GLUCOSEon 10-06 0 Glucose [Mass/Vol] 110 mg/dL Critically high 74-106 [facility] Comment on above: Performed By: #### POCGLUC ####[facility] Livtjptfqu3549 [place] [address]DrBebo Diaz Glucose [Mass/Vol] 134 mg/dL Critically high 74-106 [facility] Comment on above: Performed By: #### POCGLUC ####[facility] Nvvbwhaypj5067 [place] [address]Dr. Yuki Diaz PROF 14(COMP METB)on 023 Albumin [Mass/Vol] 2.8 g/dL Critically low 3.4-5.0 [facility] Comment on above: Performed By: #### CMP ####[facility] Irzdfkjsuo9516 [place] [address]Dr. Yuki Diaz Albumin/Globulin [Mass ratio] 0.8 {ratio} Normal [facility] Comment on above: Performed By: #### CMP ####[facility] Esnghtcufm4412 [place] [address]Dr. Yuki Diaz ALP [Catalytic activity/Vol] 89 U/L Normal 46-116 [facility] Comment on above: Performed By: #### CMP ####[facility] Ioteedmqql5373 [place] [address]Dr. Yuki Diaz ALT [Catalytic activity/Vol] 10 U/L Critically low 16-63 [facility] Comment on above: Performed By: #### CMP ####[facility] Xkqbeqqzdb1970 [place] [address]Dr. Yuki Diaz Anion gap [Moles/Vol] 11.7 mmol/L Normal [facility] Comment on above: Performed By: #### CMP ####[facility] Pxfdumhwhk5589 [place] [address]Dr. Yuki Diaz AST [Catalytic activity/Vol] 12 U/L Critically low 15-37 [facility] Comment on above: Performed By: #### CMP ####[facility] Eijinqjkve6464 [place] [address]Dr. Yuki Diaz Bilirubin [Mass/Vol] 0.9 mg/dL Normal 0.2-1.0 [facility] Comment on above: Performed By: #### CMP ####[facility] Zklsfvoaur0176 [place] [address]Dr. Yuki Diaz Calcium [Mass/Vol] 8.7 mg/dL Normal 8.5-10.1 [facility] Comment on above: Performed By: #### CMP ####[facility] Wscbwifwfr8817 [place] [address]Dr. Yuki Diaz Chloride [Moles/Vol] 102 mmol/L Normal 98-107 [facility] Comment on above: Performed By: #### CMP ####[facility] Kcbfqhnnxw5864 [place] [address]Dr. Yuki Diaz CO2 [Moles/Vol] 29.1 mmol/L Normal 21.0-32.0 [facility] Comment on above: Performed By: #### CMP ####[facility] Upnnptrjws0099 [place] [address]Dr. Yuki Diaz Creatinine [Mass/Vol] 2.75 mg/dL Critically high 0.70-1.30 [facility] Comment on above: Performed By: #### CMP ####[facility] Mvmgltiwcd9582 [place] [address]Dr. Yuki Diaz EGFR-AF UKRAINIAN 27 mL/min/1.73m2 Critically low >=60 [facility] Comment on above: Performed By: #### CMP ####[facility] Sgwuqqzfcm3601 [place] [address]Dr. Monsealyssa Joe EGFR-NON AF UKRAINIAN 22 mL/min/1.73m2 Critically low >=60 [facility] Comment on above: Performed By: #### CMP ####[facility] Jfhbpvhrvw8669 [place] [address]Dr. Yuki Diaz Globulin (S) [Mass/Vol] 3.7 g/dL Normal [facility] Comment on above: Performed By: #### CMP ####[facility] Zjhwgtbqmu3349 [place] [address]Dr. Yuki Diaz Glucose [Mass/Vol] 121 mg/dL Critically high 74-106 [facility] Comment on above: Performed By: #### CMP ####[facility] Sxfkpspsnb1474 [place] [address]Dr. Yuki Diaz Potassium [Moles/Vol] 4.8 mmol/L Normal 3.5-5.1 [facility] Comment on above: Performed By: #### CMP ####[facility] Ewcbdfqolz47[address] [place], [place] [address]Dr. Yuki Diaz Protein [Mass/Vol] 6.5 g/dL Normal 6.4-8.2 [facility] Comment on above: Performed By: #### CMP ####[facility] Hlihqfrori3489 [place] [address]Dr. Yuki Diaz Sodium [Moles/Vol] 138 mmol/L Normal 136-145 [facility] Comment on above: Performed By: #### CMP ####[facility] Lnbmpbswmt7569 [place] [address]Dr. Yuki Diaz Urea nitrogen [Mass/Vol] 39.0 mg/dL Critically high 7.0-18.0 [facility] Comment on above: Performed By: #### CMP ####[facility] Jmiiquaywj5035 [place] [address]Dr. Yuki Diaz Urea nitrogen/Creatin ine [Mass ratio] 14.2 mg/mg Normal [facility] Comment on above: Performed By: #### CMP ####[facility] Cvaklkomva77[address] [place], [place] [address]Dr. Yuki Diaz US KIDNEYS BLADDERon 023 US KIDNEYS BLADDER Normal [facility] XR CHEST 1 Von 10-24-2022 XR CHEST 1 V Normal [facility] CBC AUTO DIFFon 10-23-2022 BASO # 0.0 103/ul Normal 0.0-0.1 [facility] Comment on above: Performed By: #### CBC ####[facility] Oeanhmmryu1609 [place] [address]Dr. Yuki Joe Basophils/100 WBC (Bld) 0.1 % Critically low 0.2-2.0 [facility] Comment on above: Performed By: #### CBC ####[facility] Wfsqojaevo1188 [place] [address]Dr. Yuki Diaz EO # 0.1 103/ul Normal 0.0-0.7 [facility] Comment on above: Performed By: #### CBC ####[facility] Gcsznbdxgd6067 [place] [address]Dr. Monsealyssa Joe Eosinophils/100 WBC (Bld) 0.4 % Critically low 0.9-7.0 [facility] Comment on above: Performed By: #### CBC ####[facility] Hzwszfcpaq[address] [place] [address]. Yuki Diaz Erythrocyte distribution width (RBC) [Ratio] 15.0 % Normal 11.0-15.0 [facility] Comment on above: Performed By: #### CBC ####[facility] Fwaihdxtkg12[address] [place] [address]. Yuki Diaz Hematocrit (Bld) [Volume fraction] 29.8 % Critically low 42.0-54.0 [facility] Comment on above: Performed By: #### CBC ####[facility] Hcbgtzvsbb9[address] [place] [address]. Yuki Diaz Hemoglobin (Bld) [Mass/Vol] 9.1 g/dL Critically low 14.0-18.0 [facility] Comment on above: Performed By: #### CBC ####[facility] Ofcimdqefk726[address] [place] [address]. Yuki Diaz IG # 0.07 10e3/ul Critically high 0.00-0.03 [facility] Comment on above: Performed By: #### CBC ####[facility] Omzsnfgidt8112[address] [place] [address]. Yuki Diaz IG % 0.5 % Normal 0.0-0.5 [facility] Comment on above: Performed By: #### CBC ####[facility] Uxhwwhyima3[address] [place] [address]. Yuki Diaz LYMPH # 1.0 103/ul Critically low 1.2-3.8 [facility] Comment on above: Performed By: #### CBC ####[facility] Wyatkonpnt8204[address] [place] [address]. Yuki Diaz Lymphocytes/100 WBC (Bld) 7.8 % Critically low 20.5-60.0 [facility] Comment on above: Performed By: #### CBC ####[facility] Zekcgadcqq48[address] [place] [address]. Yuki Diaz MANUAL DIFF REQ NO Normal [facility] Comment on above: Performed By: #### CBC ####[facility] Ayhczlltsc8661 [place] [address]DrBebo Diaz MCH (RBC) [Entitic mass] 27.9 pg Normal 25.9-34.0 [facility] Comment on above: Performed By: #### CBC ####[facility] Xxwmcaiugs7867 [place] [address]DrBebo Diaz MCHC (RBC) [Mass/Vol] 30.5 g/dL Normal 29.9-35.2 [facility] Comment on above: Performed By: #### CBC ####[facility] Ismphbhpxy0710[address] [place], [place] [address]DrBebo Diaz MCV (RBC) [Entitic vol] 91.4 fL Normal 80.0-94.0 [facility] Comment on above: Performed By: #### CBC ####[facility] Aioijhynkb064[address] [place], [place] [address]DrBebo Diaz MONO # 2.1 103/ul Critically high 0.3-0.8 [facility] Comment on above: Performed By: #### CBC ####[facility] Nkryasnwco0217[address] [place], [place] [address]DrBebo Diaz Monocytes/100 WBC (Bld) 16.0 % Critically high 1.7-12.0 [facility] Comment on above: Performed By: #### CBC ####[facility] Opugqsgrbl0729[address] [place], [place] [address]DrBebo Diaz NEUT # 10.1 103/ul Critically high 1.4-6.5 [facility] Comment on above: Performed By: #### CBC ####[facility] Trnuapjucq1510[address] [place], [place] [address]DrBebo Diaz Neutrophils/100 WBC (Bld) 75.2 % Critically high 43.0-75.0 [facility] Comment on above: Performed By: #### CBC ####[facility] Gexnkokutq446486 [address] [place], [place] [address]DrBebo Diaz Platelet mean volume (Bld) [Entitic vol] 10.3 fL Normal 9.5-13.5 [facility] Comment on above: Performed By: #### CBC ####[facility] Toqzygwpdq5577 [place] [address]Dr. Yuki Diaz PLT 255 103/ul Normal 150-450 [facility] Comment on above: Performed By: #### CBC ####[facility] Wqakscdsjh0975 [place] [address]DrBebo Yuki Diaz RBC 3.26 106/ul Critically low 4.70-6.10 [facility] Comment on above: Performed By: #### CBC ####[facility] Esjtnauvqq9734 [place] [address]Dr. Yuki Diaz WBC 13.4 103/ul Critically high 4.0-11.0 [facility] Comment on above: Performed By: #### CBC ####[facility] Eorpzbgaof1840[address] [place], [place] [address]DrBebo Yuki Diaz CULTURE BLOODon 10-23-2022 Microscopic examination of blood, culture Culture Observations: NO GROWTH AT 5 DAYS. Normal [facility] Comment on above: Performed By: #### BLDCX1 ####[facility] Jyckcwsupj616[address] [place], [place] [address]DrBebo Yuki Diaz Performed By: #### B LDCX2 ####[facility] Cfcwkzcwsf64[address] [place], [place] [address]DrBebo Yuki Diaz CULTURE URINEon 10-23-2022 CULTURE URINE Culture Observations : NO GROWTH. Normal [facility] Comment on above: Performed By: #### URCX ####[facility] Jfpzqyhbyb17[address] [place], [place] [address]DrBebo Yuki Diaz [facility]-19 [facility]on [facility]-05 SARS-CoV-2 (COVID-19) RNA JARVIS+probe Ql (Unsp spec) Not detected Normal NOT DETECTED [facility] Comment on above: Result Comment: When [...] for this test is supported by the [place] of [employer] and Human Service's declaration that [...] be used). Performed By: #### C SYMONE ####[facility] Gofeifbkcb014[address] [place], [place] [address]Dr. Yuki Diaz ER URINE PROFILEon 3 Bilirubin Ql (U) Negative Normal NEGATIVE [facility] Comment on above: Performed By: #### MARCELLO CAZARES ####[facility] Pfkqkqjeng693[address] [place], [place] [address]Dr. Yuki Diaz Clarity (U) CLEAR Normal CLEAR [facility] Comment on above: Performed By: #### MARCELLO CAZARES ####[facility] Cwpoznwqpk9[address] [place], [place] [address]Dr. Yuki Diaz Color (U) YELLOW Normal YELLOW [facility] Comment on above: Performed By: #### MARCELLO CAZARES ####[facility] Efoxhujdxc585[address] [place], [place] [address]Dr. Yuki GTZD A micrscopic examina tion will be performed if indicated. Normal [facility] Comment on above: Performed By: #### MARCELLO CAZARES ####[facility] Fujenmbysx9034[address] [place], [place] [address]Dr. Yuki Diaz Glucose Ql (U) Negative Normal NEGATIVE [facility] Comment on above: Performed By: #### HAKAN CAZARESRO ####[facility] Jjfhclswqj047[address] [place], [place] [address]Dr. Yuki Diaz Hemoglobin Ql (U) SMALL Abnormal NEGATIVE [facility] Comment on above: Performed By: #### SAGE UMICRO ####[facility] Nwkkiexjif4422 [place] [address]Dr. Yuki Diaz Ketones Ql (U) Negative Normal NEGATIVE [facility] Comment on above: Performed By: #### SAGE UMICRO ####[facility] Nmbuierbjq8682 [place] [address]Dr. Yuki Diaz LEUKOCYTES Negative Normal NEGATIVE [facility] Comment on above: Performed By: #### SAGE UMICRO ####[facility] Ycmxciiarr1522 [place] [address]Dr. Yuki Diaz Nitrite Ql (U) Negative Normal NEGATIVE [facility] Comment on above: Performed By: #### SAGE UMICRO ####[facility] Kcdtjnprhf3270[address] [place], [place] [address]Dr. Yuki Diaz pH (U) 7.0 [pH] Normal 5-9 [facility] Comment on above: Performed By: #### SAGE UMICRO ####[facility] Hlbfyrruue802786 [address] [place], [place] [address]Dr. Yuki Diaz Protein (U) [Mass/Vol] 30 mg/dL Abnormal NEGATIVE/ TRACE [facility] Comment on above: Performed By: #### SAGE UMICRO ####[facility] Pukrrcasaf7360[address] [place], [place] [address]Dr. Yuki Diaz SPEC GRAVITY 1.010 Normal 1.005-<=1. 025 [facility] Comment on above: Performed By: #### SAGE UMICRO ####[facility] Olxsnydrij1593 [place] [address]Dr. Yuki Diaz UR MICRO IND INDICATED Normal [facility] Comment on above: Performed By: #### SAGE UMICRO ####[facility] Ivcfcianig3581 [place] [address]Dr. Yuki Diaz Urobilinogen Qn (U) 1.0 {Chidi'U}/dL Normal 0.2 - 1.0 [facility] Comment on above: Performed By: #### ERUR, UMKETANRO ####[facility] Jfifomipok32[address] [place], [place] [address]Dr. Yuki Diaz INFLUENZA A AND B AGon 10-23 INFLUANEGH SEE BELOW Normal [facility] Comment on above: Result Comment: Negative for Flu A prote in angiten. Infection due to Flu A cannot be ruled out. Flu A angiten in the sample may be below the detection limit of the test. Performed By: #### I NFLUAB ####[facility] Gdyhgjghbu433[address] [place], [place] [address]Dr. Yuki Diza INFLUBNEGH SEE BELOW Normal [facility] Comment on above: Result Comment: Negative for Flu B prote in antigen. Infection due to Flu B cannot be ruled out. Flu B antigen in the sample may be below the detection limit of the test. Performed By: #### I NFLUAB ####[facility] Rgxqckxdzr9712[address] [place], [place] [address]Dr. Yuki [facility] INFLUENZA A AG Negative Normal NEGATIVE SEE COMMENT [facility] Comment on above: Performed By: #### INFLUAB ####[facility] Xpvmhzwham39[address] [place], [place] [address]Dr. Yuki [facility] INFLUENZA B AG Negative Normal NEGATIVE SEE COMMENT [facility] Comment on above: Performed By: #### INFLUAB ####[facility] Lhquibkdnk8925[address] [place], [place] [address]Dr. Yuki Diaz LACTATE/LACTIC ACIDon 2022 Lactate [Moles/Vol] 1.3 mmol/L Normal 0.4-2.0 [facility] Comment on above: Performed By: #### LACT ####[facility] Vgvndtntcz6[address] [place], [place] [address]Dr. Yuki Diaz Lactate [Moles/Vol] 1.6 mmol/L Normal 0.4-2.0 [facility] Comment on above: Performed By: #### LACT ####[facility] Ljimzlfoyy894286 [address] [address] [place], [place] [address]Dr. Yuki [facility] Lactate [Moles/Vol] 1.5 mmol/L Normal 0.4-2.0 [facility] Comment on above: Performed By: #### LACT ####[facility] Fkpomtvojs0123 [place] [address]Dr. Yuki Diaz POINT OF CARE GLUCOSEon 10-05 Glucose [Mass/Vol] 127 mg/dL Critically high 74-106 [facility] Comment on above: Performed By: #### POCGLUC ####[facility] Gmgiccmurf8614 [place] [address]Dr. Yuki Diaz Glucose [Mass/Vol] 145 mg/dL Critically high 74-106 [facility] Comment on above: Performed By: #### POCGLUC ####[facility] Kezqzwpafr2553 [place] [address]Dr. Yuki Diaz PROF 14(COMP METB)on 023 Albumin [Mass/Vol] 3.4 g/dL Normal 3.4-5.0 [facility] Comment on above: Performed By: #### CMP ####[facility] Eyugmrfoky9156 [place] [address]Dr. Yuki Diaz Albumin/Globulin [Mass ratio] 0.8 {ratio} Normal [facility] Comment on above: Performed By: #### CMP ####[facility] Hhyuncjqli3180 [place] [address]Dr. Yuki Diaz ALP [Catalytic activity/Vol] 100 U/L Normal 46-116 [facility] Comment on above: Performed By: #### CMP ####[facility] Cqnoxeojvd3699 [place] [address]Dr. Yuki Diaz ALT [Catalytic activity/Vol] 15 U/L Critically low 16-63 [facility] Comment on above: Performed By: #### CMP ####[facility] Beiijoitsh3685 [place] [address]Dr. Yuki Diaz Anion gap [Moles/Vol] 14.2 mmol/L Normal [facility] Comment on above: Performed By: #### CMP ####[facility] Dkftlbjwxx6470 [place] [address]Dr. Yuki Diaz AST [Catalytic activity/Vol] 12 U/L Critically low 15-37 [facility] Comment on above: Performed By: #### CMP ####[facility] Kpaqvmosgf2696 [place] [address]Dr. Yuki Diaz Bilirubin [Mass/Vol] 0.8 mg/dL Normal 0.2-1.0 [facility] Comment on above: Performed By: #### CMP ####[facility] Apqotdwpxj9887 [place] [address]Dr. Yuki Diaz Calcium [Mass/Vol] 9.0 mg/dL Normal 8.5-10.1 [facility] Comment on above: Performed By: #### CMP ####[facility] Tlbppbkgix7702 [place] [address]Dr. Yuki Diaz Chloride [Moles/Vol] 101 mmol/L Normal 98-107 [facility] Comment on above: Performed By: #### CMP ####[facility] Seszwfkrju5735 [place] [address]Dr. Yuki Diaz CO2 [Moles/Vol] 30.3 mmol/L Normal 21.0-32.0 [facility] Comment on above: Performed By: #### CMP ####[facility] Uplkqpfxid7240 [place] [address]Dr. Yuki Diaz Creatinine [Mass/Vol] 2.86 mg/dL Critically high 0.70-1.30 [facility] Comment on above: Performed By: #### CMP ####[facility] Elvwrkbqcj6121 [place] [address]Dr. Yuki Joe EGFR-AF UKRAINIAN 26 mL/min/1.73m2 Critically low >=60 [facility] Comment on above: Performed By: #### CMP ####[facility] Hkmzxviecw7377 [place] [address]Dr. Yuki Joe EGFR-NON AF UKRAINIAN 21 mL/min/1.73m2 Critically low >=60 [facility] Comment on above: Performed By: #### CMP ####[facility] Uytjdkpzmn1048 [place] [address]Dr. Yuki Joe Globulin (S) [Mass/Vol] 4.1 g/dL Normal [facility] Comment on above: Performed By: #### CMP ####[facility] Vzxxgqtrgx2438 [place] [address]Dr. Yuki Diaz Glucose [Mass/Vol] 153 mg/dL Critically high 74-106 [facility] Comment on above: Performed By: #### CMP ####[facility] Lggziznpkq9751 [place] [address]Dr. Yuki Diaz Potassium [Moles/Vol] 4.5 mmol/L Normal 3.5-5.1 [facility] Comment on above: Performed By: #### CMP ####[facility] Evpdswrcxj6502 [place] [address]Dr. Yuki Diaz Protein [Mass/Vol] 7.5 g/dL Normal 6.4-8.2 [facility] Comment on above: Performed By: #### CMP ####[facility] Lxbpdyhlbo2043 [place] [address]Dr. Yuki Diaz Sodium [Moles/Vol] 141 mmol/L Normal 136-145 [facility] Comment on above: Performed By: #### CMP ####[facility] Rvbvbxhcfw5930 [place] [address]Dr. Yuki Diaz Urea nitrogen [Mass/Vol] 40.0 mg/dL Critically high 7.0-18.0 [facility] Comment on above: Performed By: #### CMP ####[facility] Btkqtfxnzz5710 [place] [address]Dr. Yuki Diaz Urea nitrogen/Creatin ine [Mass ratio] 14.0 mg/mg Normal [facility] Comment on above: Performed By: #### CMP ####[facility] Nmhalkycsd2894 [place] [id number]. Yuki Joe URINE MICROSCOPIC ONLYon BACTERIA NONE SEEN Normal NONE SEEN [facility] Comment on above: Performed By: #### MARCELLO CAZARES ####[facility] Lffpfejagk6763 [place] [phone]. Yuki Joe Bacteria identified Cx Nom (U) CX ALREADY ORDERED Normal [facility] Comment on above: Performed By: #### SGAE UMICRO ####[facility] Glymcerqil7933 [place] [address]Dr. Yuki Diaz CAST NONE SEEN Normal NONE SEEN [facility] Comment on above: Performed By: #### SAGE UMICRO ####[facility] Rgsufallwv9971 [place] [address]Dr. Yuki Diaz Crystals LM Nom (Urine sed) NONE SEEN Normal NONE SEEN [facility] Comment on above: Performed By: #### SAGE UMICRO ####[facility] Mnybhsuwlo2540 [place] [address]Dr. Yuki Diaz Epithelial cells LM Ql (Urine sed) NONE SEEN Normal NONE SEEN /RARE [facility] Comment on above: Performed By: #### SAGE UMICRO ####[facility] Hindzseuuq1191 [place] [address]Dr. Yuki Diaz MUCOUS NONE SEEN Normal NONE SEEN [facility] Comment on above: Performed By: #### SAGE UMICRO ####[facility] Gnsjajrnyc306[address] [place], [place] [address]Dr. Monsealyssa Diaz RBC 0-2 Normal 0-2 [facility] Comment on above: Performed By: #### SAGE UMICRO ####[facility] Rbtbegjbum681486 [address] [place], [place] [address]Dr. Yuki Diaz WBC NONE SEEN Normal NONE SEEN [facility] Comment on above: Performed By: #### SAGE UMICRO ####[facility] Kgniviicdx087286 [address] [place], [place] [address]Dr. Yuki Diaz XR KNEE RT 4V or >on 023 XR KNEE RT 4V or > Normal [facility] XR HAND LT MIN 3Von 10-23-19 23 XR HAND LT MIN 3V Normal [facility] BNPon 10-13-2022 Natriuretic peptide B (Bld) [Mass/Vol] 1093.0 pg/mL Normal <=1,800.0 [facility] Comment on above: Performed By: #### BMP, BNP ####[facility] Kzlskqyjse8281 [place] [address]Dr. Yuki Diaz PROF CHEM 8 (BAS METB)on Anion gap [Moles/Vol] 9.7 mmol/L Normal [facility] Comment on above: Performed By: #### BMP, BNP ####[facility] Ggcgqmwfyr8310 [place] [address]Dr. Yuki Diaz Calcium [Mass/Vol] 8.6 mg/dL Normal 8.5-10.1 [facility] Comment on above: Performed By: #### BMP, BNP ####[facility] Vokhjfcuyu256[address] [place], [place] [address]Dr. Yuki Diaz Chloride [Moles/Vol] 105 mmol/L Normal 98-107 [facility] Comment on above: Performed By: #### BMP, BNP ####[facility] Kppjhgjila832[address] [place], [place] [address]Dr. Yuki Diaz CO2 [Moles/Vol] 31.1 mmol/L Normal 21.0-32.0 [facility] Comment on above: Performed By: #### BMP, BNP ####[facility] Kbcvyeopgd329186 [address] [place], [place] [address]Dr. Yuki Diaz Creatinine [Mass/Vol] 2.46 mg/dL Critically high 0.70-1.30 [facility] Comment on above: Performed By: #### BMP, BNP ####[facility] Wtbqpexmnn320786 [address] [place], [place] [address]Dr. Yuki Diaz EGFR-AF UKRAINIAN 31 mL/min/1.73m2 Critically low >=60 [facility] Comment on above: Performed By: #### BMP, BNP ####[facility] Srledumeoq429886 [address] [place], [place] [address]Dr. Yuki Diaz EGFR-NON AF UKRAINIAN 25 mL/min/1.73m2 Critically low >=60 [facility] Comment on above: Performed By: #### BMP, BNP ####[facility] Qmpbhshigq887986 [address] [place], [place] [address]Dr. Yuki Diaz Glucose [Mass/Vol] 155 mg/dL Critically high 74-106 [facility] Comment on above: Performed By: #### BMP, BNP ####[facility] Mipljqmnvs5304 [place], [place] [address]Kc. Yuki Diaz Potassium [Moles/Vol] 3.8 mmol/L Normal 3.5-5.1 [facility] Comment on above: Performed By: #### BMP, BNP ####[facility] Ciznepmsci4618 [place], [place] [address]Wu. Yuki Diaz Sodium [Moles/Vol] 142 mmol/L Normal 136-145 [facility] Comment on above: Performed By: #### BMP, BNP ####[facility] Fdgzundrex8192 [place], [place] [address]Mb. Yuki Diaz Urea nitrogen [Mass/Vol] 37.0 mg/dL Critically high 7.0-18.0 [facility] Comment on above: Performed By: #### BMP, BNP ####[facility] Clccdircmd5087 [place] [phone]. Yuki Diaz Urea nitrogen/Creatin ine [Mass ratio] 15.0 mg/mg Normal [facility] Comment on above: Performed By: #### BMP, BNP ####[facility] Pwjrirnbxj5639 [place], [place] [address]Sp. Yuki Diaz Provider Letteron 09-20-2022 Provider Letter (Inserted Image. Alice ble to display) September 20, 2022 [address]ER [address] [place] [phone] SHENG BAUER 1940 Dear Sheng , You [...] appreciate your understanding. Sincerely, [facility] [address], [place] [address] Normal [facility] BNPon 09-19-2022 Natriuretic peptide B (Bld) [Mass/Vol] 1200.0 pg/mL Normal <=1,800.0 [facility] Comment on above: Performed By: #### CMP, BNP ####[facility] Tkqfsrnqsm2897 [place] [address]Dr. Yuki Diaz PROF 14(COMP METB)on 023 Albumin [Mass/Vol] 3.2 g/dL Critically low 3.4-5.0 [facility] Comment on above: Performed By: #### CMP, BNP ####[facility] Elpwfjgcea5296 [place] [address]Dr. Yuki Diaz Albumin/Globulin [Mass ratio] 0.8 {ratio} Normal [facility] Comment on above: Performed By: #### CMP, BNP ####[facility] Hfbkieiwkz625[address] [place], [place] [address]Dr. Yuki Diaz ALP [Catalytic activity/Vol] 93 U/L Normal 46-116 [facility] Comment on above: Performed By: #### CMP, BNP ####[facility] Lozjskytls1137[address] [place], [place] [address]Dr. Yuki Diaz ALT [Catalytic activity/Vol] 16 U/L Normal 16-63 [facility] Comment on above: Performed By: #### CMP, BNP ####[facility] Alotmiksxs265[address] [place], [place] [address]Dr. Yuki Diaz Anion gap [Moles/Vol] 13.6 mmol/L Normal [facility] Comment on above: Performed By: #### CMP, BNP ####[facility] Yvusmkvuxm1327[address] [place], [place] [address]Dr. Yuki Diaz AST [Catalytic activity/Vol] 13 U/L Critically low 15-37 [facility] Comment on above: Performed By: #### CMP, BNP ####[facility] Baeekmdfqd8601[address] [place], [place] [address]Dr. Yuki Diaz Bilirubin [Mass/Vol] 0.5 mg/dL Normal 0.2-1.0 [facility] Comment on above: Performed By: #### CMP, BNP ####[facility] Ywehlzlupi0117 [place] [address]Dr. Yuki Diaz Calcium [Mass/Vol] 8.9 mg/dL Normal 8.5-10.1 [facility] Comment on above: Performed By: #### CMP, BNP ####[facility] Diivvxraiv2227 [place] [address]Dr. Yuki Diaz Chloride [Moles/Vol] 107 mmol/L Normal 98-107 [facility] Comment on above: Performed By: #### CMP, BNP ####[facility] Mwpwgvcube9466 [place] [address]Dr. Yuki Diaz CO2 [Moles/Vol] 28.7 mmol/L Normal 21.0-32.0 [facility] Comment on above: Performed By: #### CMP, BNP ####[facility] Nxciapnxqz5007[address] [place], [place] [address]Dr. Yuki Diaz Creatinine [Mass/Vol] 2.61 mg/dL Critically high 0.70-1.30 [facility] Comment on above: Performed By: #### CMP, BNP ####[facility] Qmkrnbcqio201786 [address] [place], [place] [address]Dr. Yuki Diaz EGFR-AF UKRAINIAN 29 mL/min/1.73m2 Critically low >=60 [facility] Comment on above: Performed By: #### CMP, BNP ####[facility] Ffqixivftx947086 [address] [place], [place] [address]Dr. Yuki Diaz EGFR-NON AF UKRAINIAN 24 mL/min/1.73m2 Critically low >=60 [facility] Comment on above: Performed By: #### CMP, BNP ####[facility] Upvytepmqt8487[address] [place], [place] [address]Dr. Yuki Diaz Globulin (S) [Mass/Vol] 4.0 g/dL Normal [facility] Comment on above: Performed By: #### CMP, BNP ####[facility] Rpkglvvrcs069[address] [place], [place] [address]Dr. Yuki Joe Glucose [Mass/Vol] 119 mg/dL Critically high 74-106 [facility] Comment on above: Performed By: #### CMP, BNP ####[facility] Egatwoxepk6005 [place] [address]Dr. Yuki Diaz Potassium [Moles/Vol] 4.3 mmol/L Normal 3.5-5.1 [facility] Comment on above: Performed By: #### CMP, BNP ####[facility] Czqjkboayr0971 [place] [address]Dr. Yuki Diaz Protein [Mass/Vol] 7.2 g/dL Normal 6.4-8.2 [facility] Comment on above: Performed By: #### CMP, BNP ####[facility] Opjzhvxdim7917 [place] [address]Dr. Yuki Diaz Sodium [Moles/Vol] 145 mmol/L Normal 136-145 [facility] Comment on above: Performed By: #### CMP, BNP ####[facility] Vfofyxrgiv5250 [place] [address]Dr. Yuki Diaz Urea nitrogen [Mass/Vol] 42.0 mg/dL Critically high 7.0-18.0 [facility] Comment on above: Performed By: #### CMP, BNP ####[facility] Wubjrjzwcq5414 [place] [address]Dr. Yuki Diaz Urea nitrogen/Creatin ine [Mass ratio] 16.1 mg/mg Normal [facility] Comment on above: Performed By: #### CMP, BNP ####[facility] Nhyzlutgoc338[address] [place], [place] [address]Dr. Yuki Diaz Office Visiton 09-12-2022 Follow-up visit [id number] Nohelia Bauer 1940 M Date Provider Department Center 09/12/2022 OREN PEDRO [facility] Family History Problem Relation Age of Onset Coronary artery disease Mother Family Status - Relation Status Age at Mother Level of Service:19580 [place] OFFICE/OUTPATIENT ESTABLISHED LOW MDM 20-29 MIN Reason for Visit and Comments: Congestive Heart Failure [127] Coronary Artery Disease [187] Hypertension [781942] Normal [facility] BNPon 09-02-2022 Natriuretic peptide B (Bld) [Mass/Vol] 1506.0 pg/mL Normal <=1,800.0 [facility] Comment on above: Performed By: #### CMP, BNP ####[facility] Qnjofaktvk2427 [place] [address]Dr. Yuki Diaz PROF 14(COMP METB)on 023 Albumin [Mass/Vol] 3.0 g/dL Critically low 3.4-5.0 [facility] Comment on above: Performed By: #### CMP, BNP ####[facility] Xddobllmmi2869[address] [place], [place] [address]Dr. Yuki Diaz Albumin/Globulin [Mass ratio] 0.8 {ratio} Normal [facility] Comment on above: Performed By: #### CMP, BNP ####[facility] Xfcsqvwrta300[address] [place], [place] [address]Dr. Yuki Diaz ALP [Catalytic activity/Vol] 89 U/L Normal 46-116 [facility] Comment on above: Performed By: #### CMP, BNP ####[facility] Nvmrckdsjr8614[address] [place], [place] [address]Dr. Yuki Diaz ALT [Catalytic activity/Vol] 17 U/L Normal 16-63 [facility] Comment on above: Performed By: #### CMP, BNP ####[facility] Fqohpzqrox5805[address] [place], [place] [address]Dr. Yuki Diaz Anion gap [Moles/Vol] 12.2 mmol/L Normal [facility] Comment on above: Performed By: #### CMP, BNP ####[facility] Vyianoiopu4567[address] [place], [place] [address]Dr. Yuki Diaz AST [Catalytic activity/Vol] 13 U/L Critically low 15-37 [facility] Comment on above: Performed By: #### CMP, BNP ####[facility] Krqlhzorfb930786 [address] [place], [place] [address]Dr. Yuki Diaz Bilirubin [Mass/Vol] 0.4 mg/dL Normal 0.2-1.0 [facility] Comment on above: Performed By: #### CMP, BNP ####[facility] Fepbnrlokh8332[address] [place], [place] [address]Dr. Yuki Diaz Calcium [Mass/Vol] 8.8 mg/dL Normal 8.5-10.1 [facility] Comment on above: Performed By: #### CMP, BNP ####[facility] Kpolkruzmi280186 [address] [place], [place] [address]Dr. Yuki Diaz Chloride [Moles/Vol] 104 mmol/L Normal 98-107 [facility] Comment on above: Performed By: #### CMP, BNP ####[facility] Uiwnvqjjih443286 [address] [place], [place] [address]Dr. Yuki Diaz CO2 [Moles/Vol] 31.4 mmol/L Normal 21.0-32.0 [facility] Comment on above: Performed By: #### CMP, BNP ####[facility] Jjznpooamr301[address] [place], [place] [address]Dr. Yuki Diaz Creatinine [Mass/Vol] 2.76 mg/dL Critically high 0.70-1.30 [facility] Comment on above: Performed By: #### CMP, BNP ####[facility] Wkpxopypkg504886 [address] [place], [place] [address]Dr. Yuki Diaz EGFR-AF UKRAINIAN 27 mL/min/1.73m2 Critically low >=60 [facility] Comment on above: Performed By: #### CMP, BNP ####[facility] Jtpnhsyywb194086 [address] [place], [place] [address]Dr. Yuki Diaz EGFR-NON AF UKRAINIAN 22 mL/min/1.73m2 Critically low >=60 [facility] Comment on above: Performed By: #### CMP, BNP ####[facility] Qngvrusyty453886 [address] [place], [place] [address]Dr. Yuki Diaz Globulin (S) [Mass/Vol] 3.8 g/dL Normal [facility] Comment on above: Performed By: #### CMP, BNP ####[facility] Dqkuyrkeat416786 [address] [place], [place] [address]Dr. Yuki Diaz Glucose [Mass/Vol] 200 mg/dL Critically high 74-106 [facility] Comment on above: Performed By: #### CMP, BNP ####[facility] Jcieenlydu2602 [place] [address]Dr. Yuki Diaz Potassium [Moles/Vol] 4.6 mmol/L Normal 3.5-5.1 [facility] Comment on above: Performed By: #### CMP, BNP ####[facility] Oqqnoucgrz5309[address] [place], [place] [address]Dr. Yuki Diaz Protein [Mass/Vol] 6.8 g/dL Normal 6.4-8.2 [facility] Comment on above: Performed By: #### CMP, BNP ####[facility] Ehteejyxlm4313[address] [place], [place] [address]Dr. Monsealyssa Diaz Sodium [Moles/Vol] 143 mmol/L Normal 136-145 [facility] Comment on above: Performed By: #### CMP, BNP ####[facility] Abanlwguoh169[address] [place], [place] [address]Dr. Yuki Diaz Urea nitrogen [Mass/Vol] 44.0 mg/dL Critically high 7.0-18.0 [facility] Comment on above: Performed By: #### CMP, BNP ####[facility] Czewaicvfq1545[address] [place], [place] [address]Dr. Yuki Diaz Urea nitrogen/Creatin ine [Mass ratio] 15.9 mg/mg Normal [facility] Comment on above: Performed By: #### CMP, BNP ####[facility] Gpvgdcjrwv6800[address] [place], [place] [address]Dr. Yuki Diaz ECHOCARDIO M/2D COMPLETEon 1 09-20-2021 ECHOCARDIO M/2D COMPLETE Normal [facility] Lab Reportson 06-15-2022 Lab Reports [id number]:[id number] Normal [facility] PROF 14(COMP METB)on 022 Albumin [Mass/Vol] 3.0 g/dL Critically low 3.4-5.0 [facility] Comment on above: Performed By: #### CMP ####[facility] Dsagtmxgmf8260[address] [place], [place] [address]Dr. Yuki Diaz Albumin/Globulin [Mass ratio] 0.9 {ratio} Normal [facility] Comment on above: Performed By: #### CMP ####[facility] Aymtdsxklk5577 [place] [address]Dr. Yuki Diaz ALP [Catalytic activity/Vol] 73 U/L Normal 46-116 [facility] Comment on above: Performed By: #### CMP ####[facility] Zzwpxyrrra2855 [place] [address]Dr. Yuki Diaz ALT [Catalytic activity/Vol] 21 U/L Normal 16-63 [facility] Comment on above: Performed By: #### CMP ####[facility] Knsyevqdfd0467 [place] [address]Dr. Yuki Diaz Anion gap [Moles/Vol] 8.5 mmol/L Normal [facility] Comment on above: Performed By: #### CMP ####[facility] Davugknjtx3967 [place] [address]Dr. Yuki Diaz AST [Catalytic activity/Vol] 11 U/L Critically low 15-37 [facility] Comment on above: Performed By: #### CMP ####[facility] Ymrxpxoedd9634 [place] [address]Dr. Yuki Diaz Bilirubin [Mass/Vol] 0.6 mg/dL Normal 0.2-1.0 [facility] Comment on above: Performed By: #### CMP ####[facility] Ewzmdsntpc9265 [place] [address]Dr. Yuki Diaz Calcium [Mass/Vol] 8.7 mg/dL Normal 8.5-10.1 [facility] Comment on above: Performed By: #### CMP ####[facility] Zwdsflgzrx6672 [place] [address]Dr. Yuki Diaz Chloride [Moles/Vol] 104 mmol/L Normal 98-107 [facility] Comment on above: Performed By: #### CMP ####[facility] Tpaohdkbds5068 [place] [address]Dr. Yuki Diaz CO2 [Moles/Vol] 32.7 mmol/L Critically high 21.0-32.0 [facility] Comment on above: Performed By: #### CMP ####[facility] Uqivbobmmv2937 [place] [id number]. Yuki Diaz Creatinine [Mass/Vol] 2.43 mg/dL Critically high 0.70-1.30 [facility] Comment on above: Performed By: #### CMP ####[facility] Kiozdfcmlc9986 [place] [address]Dr. Yuki Diaz EGFR-AF UKRAINIAN 31 mL/min/1.73m2 Critically low >=60 [facility] Comment on above: Performed By: #### CMP ####[facility] Sbjkjevgkx8082 [place] [address]Dr. Yuki Diaz EGFR-NON AF UKRAINIAN 26 mL/min/1.73m2 Critically low >=60 [facility] Comment on above: Performed By: #### CMP ####[facility] Colkmibazk7551 [place] [address]Dr. Yuki Diaz Globulin (S) [Mass/Vol] 3.4 g/dL Normal [facility] Comment on above: Performed By: #### CMP ####[facility] Hzrfqwlcsz6664 [place] [address]Dr. Yuki Diaz Glucose [Mass/Vol] 155 mg/dL Critically high 74-106 [facility] Comment on above: Performed By: #### CMP ####[facility] Kahmofqvco5850 [place] [address]Dr. Yuki Diaz Potassium [Moles/Vol] 4.2 mmol/L Normal 3.5-5.1 [facility] Comment on above: Performed By: #### CMP ####[facility] Altsbkritn8489 [place] [address]Dr. Yuki Diaz Protein [Mass/Vol] 6.4 g/dL Normal 6.4-8.2 [facility] Comment on above: Performed By: #### CMP ####[facility] Lictgppasf3575 [place] [address]Dr. Yuki Diaz Sodium [Moles/Vol] 141 mmol/L Normal 136-145 [facility] Comment on above: Performed By: #### CMP ####[facility] Jhfqhhaqhy5414 [place] [address]Dr. Yuki Diaz Urea nitrogen [Mass/Vol] 47.0 mg/dL Critically high 7.0-18.0 [facility] Comment on above: Performed By: #### CMP ####[facility] Kdaxosnmyl8370 [place] [address]Dr. Yuki Diaz Urea nitrogen/Creatin ine [Mass ratio] 19.3 mg/mg Normal [facility] Comment on above: Performed By: #### CMP ####[facility] Tdswjkzhfv1779 [place] [address]Dr. Yuki Diaz PROF 14(COMP METB)on 022 Albumin [Mass/Vol] 2.9 g/dL Critically low 3.4-5.0 [facility] Comment on above: Performed By: #### CMP ####[facility] Rjsnawdmrt5654 [place] [address]Dr. Yuki Diaz Albumin/Globulin [Mass ratio] 0.8 {ratio} Normal [facility] Comment on above: Performed By: #### CMP ####[facility] Pngnhilvlf2491 [place] [address]Dr. Yuki Diaz ALP [Catalytic activity/Vol] 86 U/L Normal 46-116 [facility] Comment on above: Performed By: #### CMP ####[facility] Iqolsjibvb5654 [place] [address]Dr. Yuki Diaz ALT [Catalytic activity/Vol] 27 U/L Normal 16-63 [facility] Comment on above: Performed By: #### CMP ####[facility] Cgaubsdrqq3137 [place] [address]Dr. Yuki Diaz Anion gap [Moles/Vol] 11.5 mmol/L Normal [facility] Comment on above: Performed By: #### CMP ####[facility] Srotfbovxr2861 [place] [address]Dr. Yuki Diaz AST [Catalytic activity/Vol] 10 U/L Critically low 15-37 [facility] Comment on above: Performed By: #### CMP ####[facility] Ytkxfblifi7587 [place] [address]Dr. Yuki Diaz Bilirubin [Mass/Vol] 0.5 mg/dL Normal 0.2-1.0 [facility] Comment on above: Performed By: #### CMP ####[facility] Qhselxxgew3875 [place] [address]Dr. Yuki Diaz Calcium [Mass/Vol] 8.6 mg/dL Normal 8.5-10.1 [facility] Comment on above: Performed By: #### CMP ####[facility] Ggtiztvvpc6858 [place] [address]Dr. Yuki Diaz Chloride [Moles/Vol] 108 mmol/L Critically high 98-107 [facility] Comment on above: Performed By: #### CMP ####[facility] Bsiajauemh9102 [place] [address]Dr. Yuki Diaz CO2 [Moles/Vol] 28.0 mmol/L Normal 21.0-32.0 [facility] Comment on above: Performed By: #### CMP ####[facility] Dlisvokkoe[address] [place] [address]Dr. Yuki Diaz Creatinine [Mass/Vol] 2.58 mg/dL Critically high 0.70-1.30 [facility] Comment on above: Performed By: #### CMP ####[facility] Cpwwdpyugb1313 [place] [address]Dr. Yuki Diaz EGFR-AF UKRAINIAN 29 mL/min/1.73m2 Critically low >=60 [facility] Comment on above: Performed By: #### CMP ####[facility] Jaghdxoifm3627 [place] [address]Dr. Yuki Diaz EGFR-NON AF UKRAINIAN 24 mL/min/1.73m2 Critically low >=60 [facility] Comment on above: Performed By: #### CMP ####[facility] Thottdfdfz5428 [place] [address]Dr. Yuki Diaz Globulin (S) [Mass/Vol] 3.5 g/dL Normal [facility] Comment on above: Performed By: #### CMP ####[facility] Imuoixvchn6517 [place] [id number]. Yuki Diaz Glucose [Mass/Vol] 136 mg/dL Critically high 74-106 [facility] Comment on above: Performed By: #### CMP ####[facility] Aykjrdhsuj9993 [place] [phone]. Yuki Diaz Potassium [Moles/Vol] 4.5 mmol/L Normal 3.5-5.1 [facility] Comment on above: Performed By: #### CMP ####[facility] Xnggrowswj4727 [place] [address]Dr. Yuki Diaz Protein [Mass/Vol] 6.4 g/dL Normal 6.4-8.2 [facility] Comment on above: Performed By: #### CMP ####[facility] Vrfoibfvlq6750 [place] [address]Dr. Yuki Diaz Sodium [Moles/Vol] 143 mmol/L Normal 136-145 [facility] Comment on above: Performed By: #### CMP ####[facility] Mncfropypb4260 [place] [address]Dr. Yuki Diaz Urea nitrogen [Mass/Vol] 48.0 mg/dL Critically high 7.0-18.0 [facility] Comment on above: Performed By: #### CMP ####[facility] Wymnurjdjh5979 [place] [address]Dr. Yuki Diaz Urea nitrogen/Creatin ine [Mass ratio] 18.6 mg/mg Normal [facility] Comment on above: Performed By: #### CMP ####[facility] Budprltwlo4447 [place] [address]Dr. Yuki Diaz PROF 14(COMP METB)on 022 Albumin [Mass/Vol] 3.2 g/dL Critically low 3.4-5.0 [facility] Comment on above: Performed By: #### CMP ####[facility] Ccxxwyyvhl2013 [place] [address]Dr. Yuki Diaz Albumin/Globulin [Mass ratio] 0.9 {ratio} Normal [facility] Comment on above: Performed By: #### CMP ####[facility] Xbxaywecjn7466 [place] [address]Dr. Yuki Diaz ALP [Catalytic activity/Vol] 89 U/L Normal 46-116 [facility] Comment on above: Performed By: #### CMP ####[facility] Tzntngvmcf1488 [place] [address]Dr. Yuki Diaz ALT [Catalytic activity/Vol] 113 U/L Critically high 16-63 [facility] Comment on above: Performed By: #### CMP ####[facility] Hzjxwhrntf5993 [place] [address]Dr. Yuki Diaz Anion gap [Moles/Vol] 10.8 mmol/L Normal [facility] Comment on above: Performed By: #### CMP ####[facility] Mmduyhzuyf9548 [place] [address]Dr. Yuki Diaz AST [Catalytic activity/Vol] 32 U/L Normal 15-37 [facility] Comment on above: Performed By: #### CMP ####[facility] Rgoekvzwmz1860 [place] [address]Dr. Yuki Diaz Bilirubin [Mass/Vol] 0.7 mg/dL Normal 0.2-1.0 [facility] Comment on above: Performed By: #### CMP ####[facility] Abwhqazirf0480 [place] [address]Dr. Yuki Diaz Calcium [Mass/Vol] 8.8 mg/dL Normal 8.5-10.1 [facility] Comment on above: Performed By: #### CMP ####[facility] Incgrcqyrj5169 [place] [address]Dr. Yuki Diaz Chloride [Moles/Vol] 106 mmol/L Normal 98-107 [facility] Comment on above: Performed By: #### CMP ####[facility] Loodshgbbn6068 [place] [address]Dr. Yuki Diaz CO2 [Moles/Vol] 30.4 mmol/L Normal 21.0-32.0 [facility] Comment on above: Performed By: #### CMP ####[facility] Ptfinradsy5724 [place] [phone]. Yuki Diaz Creatinine [Mass/Vol] 2.54 mg/dL Critically high 0.70-1.30 [facility] Comment on above: Performed By: #### CMP ####[facility] Jqfifdbcnv5064 [place] [address]Dr. Yuki Diaz EGFR-AF UKRAINIAN 30 mL/min/1.73m2 Critically low >=60 [facility] Comment on above: Performed By: #### CMP ####[facility] Kfknzniway1101 [place] [address]Dr. Yuki Diaz EGFR-NON AF UKRAINIAN 25 mL/min/1.73m2 Critically low >=60 [facility] Comment on above: Performed By: #### CMP ####[facility] Nrltqmqhjr3168 [place] [address]Dr. Yuki Diaz Globulin (S) [Mass/Vol] 3.4 g/dL Normal [facility] Comment on above: Performed By: #### CMP ####[facility] Leiimkjjsm5769 [place] [address]Dr. Yuki Diaz Glucose [Mass/Vol] 114 mg/dL Critically high 74-106 [facility] Comment on above: Performed By: #### CMP ####[facility] Psyyvziise8062 [place] [address]Dr. Yuki Diaz Potassium [Moles/Vol] 4.2 mmol/L Normal 3.5-5.1 [facility] Comment on above: Performed By: #### CMP ####[facility] Ycnyocfnbp7904 [place] [address]Dr. Yuki Diaz Protein [Mass/Vol] 6.6 g/dL Normal 6.4-8.2 [facility] Comment on above: Performed By: #### CMP ####[facility] Smkyzaeixf3446 [place] [address]Dr. Yuki Diaz Sodium [Moles/Vol] 143 mmol/L Normal 136-145 [facility] Comment on above: Performed By: #### CMP ####[facility] Lrwfdyngtq0948 [place] [address]Dr. Yuki Diaz Urea nitrogen [Mass/Vol] 65.0 mg/dL Critically high 7.0-18.0 [facility] Comment on above: Performed By: #### CMP ####[facility] Nnkjrvbohj9772 [place] [address]Dr. Yuki Diaz Urea nitrogen/Creatin ine [Mass ratio] 25.6 mg/mg Normal [facility] Comment on above: Performed By: #### CMP ####[facility] Hvriooceem2833 [place] [address]Dr. Yuki Diaz XR HIP RT INJon 04-01-2022 XR HIP RT INJ Normal [facility] PROF 14(COMP METB)on 022 Albumin [Mass/Vol] 3.6 g/dL Normal 3.4-5.0 [facility] Comment on above: Performed By: #### CMP ####[facility] Wuseivmapg5008 [place] [address]Dr. Yuki Diaz Albumin/Globulin [Mass ratio] 0.9 {ratio} Normal [facility] Comment on above: Performed By: #### CMP ####[facility] Npvzdnawud4215 [place] [address]Dr. Yuki Diaz ALP [Catalytic activity/Vol] 91 U/L Normal 46-116 [facility] Comment on above: Performed By: #### CMP ####[facility] Aqqhblmekc7292 [place] [address]Dr. Yuki Diaz ALT [Catalytic activity/Vol] 19 U/L Normal 16-63 [facility] Comment on above: Performed By: #### CMP ####[facility] Ukvomduyjf4648 [place] [address]Dr. Yuki Diaz Anion gap [Moles/Vol] 12.3 mmol/L Normal [facility] Comment on above: Performed By: #### CMP ####[facility] Xqndltqnev2768 [place] [address]Dr. Yuki Diaz AST [Catalytic activity/Vol] 14 U/L Critically low 15-37 [facility] Comment on above: Performed By: #### CMP ####[facility] Wxywxnfjya0552 [place] [phone]. Yuki Diaz Bilirubin [Mass/Vol] 0.7 mg/dL Normal 0.2-1.0 [facility] Comment on above: Performed By: #### CMP ####[facility] Pxblfdwmtj9919 [place] [phone]. Yuki Diaz Calcium [Mass/Vol] 8.9 mg/dL Normal 8.5-10.1 [facility] Comment on above: Performed By: #### CMP ####[facility] Kfnmldcwtj0044 [place] [address]Dr. Yuki Diaz Chloride [Moles/Vol] 102 mmol/L Normal 98-107 [facility] Comment on above: Performed By: #### CMP ####[facility] Dziyrrtvsx5288 [place] [address]Dr. Yuki Diaz CO2 [Moles/Vol] 30.4 mmol/L Normal 21.0-32.0 [facility] Comment on above: Performed By: #### CMP ####[facility] Odwdiwilfg5421 [place] [address]Dr. Yuki Diaz Creatinine [Mass/Vol] 2.13 mg/dL Critically high 0.70-1.30 [facility] Comment on above: Performed By: #### CMP ####[facility] Pbubelrdwk7874 [place] [address]Dr. Yuki Joe EGFR-AF UKRAINIAN 37 mL/min/1.73m2 Critically low >=60 [facility] Comment on above: Performed By: #### CMP ####[facility] Nkzxmlzrkr8863 [place] [address]Dr. Yuki Joe EGFR-NON AF UKRAINIAN 30 mL/min/1.73m2 Critically low >=60 [facility] Comment on above: Performed By: #### CMP ####[facility] Dzzfuonaoi9209 [place] [phone]. Yuki Joe Globulin (S) [Mass/Vol] 3.9 g/dL Normal [facility] Comment on above: Performed By: #### CMP ####[facility] Aunoaisesn0418 [place] [address]Dr. Yuki Diaz Glucose [Mass/Vol] 146 mg/dL Critically high 74-106 [facility] Comment on above: Performed By: #### CMP ####[facility] Hdpzlkkzcb2084 [place] [address]Dr. Yuki Diaz Potassium [Moles/Vol] 3.7 mmol/L Normal 3.5-5.1 [facility] Comment on above: Performed By: #### CMP ####[facility] Sbyilqjoey0091 [place] [address]Dr. Yuki Diaz Protein [Mass/Vol] 7.5 g/dL Normal 6.4-8.2 [facility] Comment on above: Performed By: #### CMP ####[facility] Feuhxnkuzb5961 [place] [address]Dr. Yuki Diaz Sodium [Moles/Vol] 141 mmol/L Normal 136-145 [facility] Comment on above: Performed By: #### CMP ####[facility] Fioudbbbwu5634 [place] [address]Dr. Yuki Diaz Urea nitrogen [Mass/Vol] 39.0 mg/dL Critically high 7.0-18.0 [facility] Comment on above: Performed By: #### CMP ####[facility] Bakmfqlori0007 [place] [address]Dr. Yuki Diaz Urea nitrogen/Creatin ine [Mass ratio] 18.3 mg/mg Normal [facility] Comment on above: Performed By: #### CMP ####[facility] Mteeufkuxu4421 [place] [address]DrBebo Diaz PROF 14(COMP METB)on 022 Albumin [Mass/Vol] 3.3 g/dL Critically low 3.4-5.0 [facility] Comment on above: Performed By: #### CMP ####[facility] Eamaalysti0321 [place] [address]Dr. Yuki Diaz Albumin/Globulin [Mass ratio] 0.9 {ratio} Normal [facility] Comment on above: Performed By: #### CMP ####[facility] Adorlngmdt8640 [place] [address]Dr. Yuki Diaz ALP [Catalytic activity/Vol] 78 U/L Normal 46-116 [facility] Comment on above: Performed By: #### CMP ####[facility] Tatmiydbih7609 [place] [address]Dr. Yuki Diaz ALT [Catalytic activity/Vol] 19 U/L Normal 16-63 [facility] Comment on above: Performed By: #### CMP ####[facility] Hpmopnqzps0518 [place] [address]Dr. Yuki Diaz Anion gap [Moles/Vol] 12.3 mmol/L Normal [facility] Comment on above: Performed By: #### CMP ####[facility] Kmcrntftci5189 [place] [address]Dr. Yuki Diaz AST [Catalytic activity/Vol] 13 U/L Critically low 15-37 [facility] Comment on above: Performed By: #### CMP ####[facility] Mbfmqvrzcx5771 [place] [address]Dr. Yuki Diaz Bilirubin [Mass/Vol] 0.8 mg/dL Normal 0.2-1.0 [facility] Comment on above: Performed By: #### CMP ####[facility] Vnpowzvypg6311 [place] [address]Dr. Yuki Diaz Calcium [Mass/Vol] 8.8 mg/dL Normal 8.5-10.1 [facility] Comment on above: Performed By: #### CMP ####[facility] Yinnjjyboz5682 [place] [address]Dr. Yuki Diaz Chloride [Moles/Vol] 105 mmol/L Normal 98-107 [facility] Comment on above: Performed By: #### CMP ####[facility] Qyocniwnfg9695 [place] [address]Dr. Yuki Diaz Creatinine [Mass/Vol] 2.44 mg/dL Critically high 0.70-1.30 [facility] Comment on above: Performed By: #### CMP ####[facility] Yeezpefxvy2320 [place] [address]Dr. Yuki Diaz EGFR-AF UKRAINIAN 31 mL/min/1.73m2 Critically low >=60 [facility] Comment on above: Performed By: #### CMP ####[facility] Lunymvtznz1600 [place] [address]Dr. Yuki Diaz EGFR-NON AF UKRAINIAN 26 mL/min/1.73m2 Critically low >=60 [facility] Comment on above: Performed By: #### CMP ####[facility] Pbtfldluwi5161 [place] [address]Dr. Yuki Diaz Globulin (S) [Mass/Vol] 3.7 g/dL Normal [facility] Comment on above: Performed By: #### CMP ####[facility] Scikhgddmb6777 [place] [address]Dr. Yuki Joe Glucose [Mass/Vol] 196 mg/dL Critically high 74-106 [facility] Comment on above: Performed By: #### CMP ####[facility] Wuixanywlt5677 [place] [address]Dr. Yuki Joe Potassium [Moles/Vol] 4.6 mmol/L Normal 3.5-5.1 [facility] Comment on above: Performed By: #### CMP ####[facility] Pxidsvjheu5990 [place] [address]Dr. Yuki Diaz Protein [Mass/Vol] 7.0 g/dL Normal 6.4-8.2 [facility] Comment on above: Performed By: #### CMP ####[facility] Bnrznptqsr5974 [place] [address]Dr. Yuki Diaz Sodium [Moles/Vol] 144 mmol/L Normal 136-145 [facility] Comment on above: Performed By: #### CMP ####[facility] Lmcrswgeol9804 [place] [address]Dr. Yuki Diaz Urea nitrogen [Mass/Vol] 44.0 mg/dL Critically high 7.0-18.0 [facility] Comment on above: Performed By: #### CMP ####[facility] Zrpfhdvfmx1192 [place] [address]Dr. Yuki Diaz Urea nitrogen/Creatin ine [Mass ratio] 18.0 mg/mg Normal [facility] Comment on above: Performed By: #### CMP ####[facility] Vlsggalyrm5051 [place] [address]Dr. Yuki Diaz PROF 14(COMP METB)on 022 Albumin [Mass/Vol] 3.2 g/dL Critically low 3.4-5.0 [facility] Comment on above: Performed By: #### CMP ####[facility] Msmpcyjmbz5387 [place] [address]Dr. Yuki Diaz Albumin/Globulin [Mass ratio] 0.9 {ratio} Normal [facility] Comment on above: Performed By: #### CMP ####[facility] Lnyjimmgll7223 [place] [address]Dr. Yuki Diaz ALP [Catalytic activity/Vol] 75 U/L Normal 46-116 [facility] Comment on above: Performed By: #### CMP ####[facility] Oryzcpwqyw9390 [place] [address]Dr. Yuki Diaz ALT [Catalytic activity/Vol] 14 U/L Critically low 16-63 [facility] Comment on above: Performed By: #### CMP ####[facility] Ncprazujte8108 [place] [address]Dr. Yuki Diaz Anion gap [Moles/Vol] 12.6 mmol/L Normal [facility] Comment on above: Performed By: #### CMP ####[facility] Syxaomoynk7694 [place] [address]Dr. Yuki Diaz AST [Catalytic activity/Vol] 9 U/L Critically low 15-37 [facility] Comment on above: Performed By: #### CMP ####[facility] Weitnmkbhx1528 [place] [address]Dr. Yuki Diaz Bilirubin [Mass/Vol] 0.7 mg/dL Normal 0.2-1.0 [facility] Comment on above: Performed By: #### CMP ####[facility] Jkcswxnpig6392 [place] [address]Dr. Yuki Diaz Calcium [Mass/Vol] 8.6 mg/dL Normal 8.5-10.1 [facility] Comment on above: Performed By: #### CMP ####[facility] Jqgfendxkf3387 [place] [address]Dr. Yuki Diaz Chloride [Moles/Vol] 107 mmol/L Normal 98-107 [facility] Comment on above: Performed By: #### CMP ####[facility] Ysaagkzhat0681 [place] [address]Dr. Yuki Diaz CO2 [Moles/Vol] 28.3 mmol/L Normal 21.0-32.0 [facility] Comment on above: Performed By: #### CMP ####[facility] Xszkzqnbsw7255 [place] [address]Dr. Yuki Joe Creatinine [Mass/Vol] 2.52 mg/dL Critically high 0.70-1.30 [facility] Comment on above: Performed By: #### CMP ####[facility] Ucbqnbjvde7492 [place] [address]Dr. Yuki Diaz EGFR-AF UKRAINIAN 30 mL/min/1.73m2 Critically low >=60 [facility] Comment on above: Performed By: #### CMP ####[facility] Zfvmpojoim7386 [place] [address]Dr. Yuki Joe EGFR-NON AF UKRAINIAN 25 mL/min/1.73m2 Critically low >=60 [facility] Comment on above: Performed By: #### CMP ####[facility] Hmsorkzujw2388 [place] [address]Dr. Yuki Joe Globulin (S) [Mass/Vol] 3.7 g/dL Normal [facility] Comment on above: Performed By: #### CMP ####[facility] Szysqmoagb0951 [place] [address]Dr. Yuki Diaz Glucose [Mass/Vol] 152 mg/dL Critically high 74-106 [facility] Comment on above: Performed By: #### CMP ####[facility] Uytvfxltfl1117 [place] [address]Dr. Yuki Diaz Potassium [Moles/Vol] 3.9 mmol/L Normal 3.5-5.1 [facility] Comment on above: Performed By: #### CMP ####[facility] Ivqjynrzgg7624 [place] [id number]. Yuki Diaz Protein [Mass/Vol] 6.9 g/dL Normal 6.4-8.2 [facility] Comment on above: Performed By: #### CMP ####[facility] Pmpxmjwfsy6358 [place] [address]Dr. Yuki Diaz Sodium [Moles/Vol] 144 mmol/L Normal 136-145 [facility] Comment on above: Performed By: #### CMP ####[facility] Lrunpprjbu4298 [place] [address]Dr. Yuki Diaz Urea nitrogen [Mass/Vol] 50.0 mg/dL Critically high 7.0-18.0 [facility] Comment on above: Performed By: #### CMP ####[facility] Dnzruuftjj2944 [place] [address]Dr. Yuki Diaz Urea nitrogen/Creatin ine [Mass ratio] 19.8 mg/mg Normal [facility] Comment on above: Performed By: #### CMP ####[facility] Eprhcpqgis7577 [place] [address]Dr. Yuki Diaz PROF 14(COMP METB)on 022 Albumin [Mass/Vol] 3.1 g/dL Critically low 3.4-5.0 [facility] Comment on above: Performed By: #### CMP ####[facility] Awdtpppcpc0646 [place] [address]Dr. Yuki Diaz Albumin/Globulin [Mass ratio] 0.7 {ratio} Normal [facility] Comment on above: Performed By: #### CMP ####[facility] Tvddkcjkpd0837 [place] [address]Dr. Yuki Diaz ALP [Catalytic activity/Vol] 101 U/L Normal 46-116 [facility] Comment on above: Performed By: #### CMP ####[facility] Uvzuboxlvz4509 [place] [address]Dr. Yuki Diaz ALT [Catalytic activity/Vol] 18 U/L Normal 16-63 [facility] Comment on above: Performed By: #### CMP ####[facility] Pjamaazypi9190 [place] [phone]. Yuki Diaz Anion gap [Moles/Vol] 11.9 mmol/L Normal [facility] Comment on above: Performed By: #### CMP ####[facility] Txytbuxuuw2611 [place] [address]Dr. Yuki Diaz AST [Catalytic activity/Vol] 11 U/L Critically low 15-37 [facility] Comment on above: Performed By: #### CMP ####[facility] Fnzgyhmhhl2887 [place] [address]Dr. Yuki Diaz Bilirubin [Mass/Vol] 0.5 mg/dL Normal 0.2-1.0 [facility] Comment on above: Performed By: #### CMP ####[facility] Bgvpyenyzo7637 [place] [address]Dr. Yuki Diaz Calcium [Mass/Vol] 9.0 mg/dL Normal 8.5-10.1 [facility] Comment on above: Performed By: #### CMP ####[facility] Zztlhzhedb5732 [place] [address]Dr. Yuki Diaz Chloride [Moles/Vol] 103 mmol/L Normal 98-107 [facility] Comment on above: Performed By: #### CMP ####[facility] Wqdrawjoyj8194 [place] [id number]. Yuki Diaz CO2 [Moles/Vol] 29.8 mmol/L Normal 21.0-32.0 [facility] Comment on above: Performed By: #### CMP ####[facility] Dzzznkwzop3362 [place] [address]Dr. Yuki Joe Creatinine [Mass/Vol] 3.03 mg/dL Critically high 0.70-1.30 [facility] Comment on above: Performed By: #### CMP ####[facility] Hkoeqkycvq3587 [place] [address]Dr. Yuki Diaz EGFR-AF UKRAINIAN 24 mL/min/1.73m2 Critically low >=60 [facility] Comment on above: Performed By: #### CMP ####[facility] Dopubjguss1038 [place] [address]Dr. Yuki Diaz EGFR-NON AF UKRAINIAN 20 mL/min/1.73m2 Critically low >=60 [facility] Comment on above: Performed By: #### CMP ####[facility] Bgouavlpcd4650 [place] [address]Dr. Yuki Diaz Globulin (S) [Mass/Vol] 4.4 g/dL Normal [facility] Comment on above: Performed By: #### CMP ####[facility] Khnsjbmlfd3850 [place] [address]Dr. Yuki Joe Glucose [Mass/Vol] 260 mg/dL Critically high 74-106 [facility] Comment on above: Performed By: #### CMP ####[facility] Dpihuoodev6607 [place] [address]Dr. Yuki Joe Potassium [Moles/Vol] 4.7 mmol/L Normal 3.5-5.1 [facility] Comment on above: Performed By: #### CMP ####[facility] Ppdblmvlwc7197 [place] [address]Dr. Yuki Diaz Protein [Mass/Vol] 7.5 g/dL Normal 6.4-8.2 [facility] Comment on above: Performed By: #### CMP ####[facility] Plvmipcnop0571 [place] [address]Dr. Yuki Diaz Sodium [Moles/Vol] 140 mmol/L Normal 136-145 [facility] Comment on above: Performed By: #### CMP ####[facility] Thfoxdxwej0508 [place] [address]Dr. Yuki Diaz Urea nitrogen [Mass/Vol] 50.0 mg/dL Critically high 7.0-18.0 [facility] Comment on above: Performed By: #### CMP ####[facility] Fhvwoolurb4847 [place], [place] [address]ZxBebo Diaz Urea nitrogen/Creatin ine [Mass ratio] 16.5 mg/mg Normal [facility] Comment on above: Performed By: #### CMP ####[facility] Mvhvsmnldq9358 [place], [place] [address]TdBebo Diaz Screenson 02-18-2022 Screens [id number]:127 Normal [facility] Ambulatory Visit Summaryon 0 02-15-2022 Ambulatory Visit Summary SHENG BAUER :1940 Visit Date:02/15/2022 Ambulatory Visit Instructions Your Diagnosis Elevated PSA BPH associated with nocturia Nocturia Tests Performed Urnls Dip Stick Auto w/o Microscopy POC 25603 Your Care Team Attending Physician - César [...] Gordon Jr., MD Where: [facility] Patient Educationon 02-16-20 Patient Education Oncology Prostate-Specific [...] including vitamins, herbs, eye drops, creams, and wlsv-wrk-uszqukw medicines. This also includes: ? Medicines to [...] 08/26/2005 Document Revised: 07/06/2018 Document Reviewed: 04/30/2018 [employer] Patient Education ? 2019 [employer] [facility] Urology Office/Clinic Noteon 02-15-2022 Urology [...] Urnls Dip Stick Auto w/o Microscopy POC 68855 2. BPH associated with nocturia (N40.1: Benign [...] months [facility] [address] [place] [address]- Additional Instructions: w/ psa Patient Education Prostate-Specific [...] (more content not included)... Normal [facility] Comment on above: Result Comment: Electronically Signed By : Evan Ochoa MD, César Vega\.br\Date and Time Signed: 02/15/22 10:42 EDT\.br\Electronically Co-Signed By: Gretel Bhagat\.br\Date and Time Co-Signed: 02/15/22 10:35 EDT PROF 14(COMP METB)on 022 Albumin [Mass/Vol] 3.3 g/dL Critically low 3.4-5.0 [facility] Comment on above: Performed By: #### CMP ####[facility] Izutjvrgvd2237 [place] [address]Dr. Yuki Diaz Albumin/Globulin [Mass ratio] 0.8 {ratio} Normal [facility] Comment on above: Performed By: #### CMP ####[facility] Nfymomyfyc0646 [place] [address]Dr. Yuki Diaz ALP [Catalytic activity/Vol] 111 U/L Normal 46-116 [facility] Comment on above: Performed By: #### CMP ####[facility] Otgwatwwvj6370 [place] [address]Dr. Yuki Diaz ALT [Catalytic activity/Vol] 22 U/L Normal 16-63 [facility] Comment on above: Performed By: #### CMP ####[facility] Wvghjoyvbe6254 [place] [address]Dr. Yuki Diaz Anion gap [Moles/Vol] 9.0 mmol/L Normal [facility] Comment on above: Performed By: #### CMP ####[facility] Kcgxkjvtgk7825 [place] [address]Dr. Yuki Diaz AST [Catalytic activity/Vol] 10 U/L Critically low 15-37 [facility] Comment on above: Performed By: #### CMP ####[facility] Ligdcrebyz9276 [place] [address]Dr. Yuki Diaz Bilirubin [Mass/Vol] 1.0 mg/dL Normal 0.2-1.0 [facility] Comment on above: Performed By: #### CMP ####[facility] Meluilyhza[address] [place], [place] [address]Dr. Yuki Diaz Calcium [Mass/Vol] 9.1 mg/dL Normal 8.5-10.1 [facility] Comment on above: Performed By: #### CMP ####[facility] Jksmgurjjs1484 [place] [address]Dr. Yuki Diaz Chloride [Moles/Vol] 103 mmol/L Normal 98-107 [facility] Comment on above: Performed By: #### CMP ####[facility] Sctfrotrru3059 [place] [address]Dr. Yuki Diaz CO2 [Moles/Vol] 32.8 mmol/L Critically high 21.0-32.0 [facility] Comment on above: Performed By: #### CMP ####[facility] Miykfqayvt[address] [place], [place] [address]Dr. Yuki Diaz Creatinine [Mass/Vol] 2.55 mg/dL Critically high 0.70-1.30 [facility] Comment on above: Performed By: #### CMP ####[facility] [address]ck[address] [place] [address]Dr. Yuki Diaz EGFR-AF UKRAINIAN 30 mL/min/1.73m2 Critically low >=60 [facility] Comment on above: Performed By: #### CMP ####[facility] Sluphpxojw8061 [place] [address]Dr. Yuki Diaz EGFR-NON AF UKRAINIAN 24 mL/min/1.73m2 Critically low >=60 [facility] Comment on above: Performed By: #### CMP ####[facility] Oujcxmiflq0144 [place] [address]Dr. Yuki Diaz Globulin (S) [Mass/Vol] 4.0 g/dL Normal [facility] Comment on above: Performed By: #### CMP ####[facility] Nrijdimdca4718 [place] [address]Dr. Yuki Diaz Glucose [Mass/Vol] 154 mg/dL Critically high 74-106 [facility] Comment on above: Performed By: #### CMP ####[facility] Chxesiupyp6769 [place] [address]Dr. Yuki Diaz Potassium [Moles/Vol] 3.8 mmol/L Normal 3.5-5.1 [facility] Comment on above: Performed By: #### CMP ####[facility] Pzshbveiqk6135 [place] [address]Dr. Yuki Diaz Protein [Mass/Vol] 7.3 g/dL Normal 6.4-8.2 [facility] Comment on above: Performed By: #### CMP ####[facility] Gzojbheobp4789 [place] [address]Dr. Yuki Diaz Sodium [Moles/Vol] 141 mmol/L Normal 136-145 [facility] Comment on above: Performed By: #### CMP ####[facility] Pgmrztiewf8699 [place] [address]Dr. Yuki Diaz Urea nitrogen [Mass/Vol] 35.0 mg/dL Critically high 7.0-18.0 [facility] Comment on above: Performed By: #### CMP ####[facility] Vyyyzzlymy1919 [place] [address]Dr. Yuki Diaz Urea nitrogen/Creatin ine [Mass ratio] 13.7 mg/mg Normal [facility] Comment on above: Performed By: #### CMP ####[facility] Ggbacrteuf7886 [place] [address]Dr. Yuki Diaz PROF 14(COMP METB)on 022 Albumin [Mass/Vol] 2.9 g/dL Critically low 3.4-5.0 [facility] Comment on above: Performed By: #### CMP ####[facility] Sgeabslada3167 [place] [address]Dr. Yuki Diaz Albumin/Globulin [Mass ratio] 0.8 {ratio} Normal [facility] Comment on above: Performed By: #### CMP ####[facility] Elzldkjcgl1141 [place] [address]Dr. Yuki Diaz ALP [Catalytic activity/Vol] 96 U/L Normal 46-116 [facility] Comment on above: Performed By: #### CMP ####[facility] Emofqrbvqy2485 [place] [address]Dr. Yuki Diaz ALT [Catalytic activity/Vol] 23 U/L Normal 16-63 [facility] Comment on above: Performed By: #### CMP ####[facility] Ppuubzkaop0161 [place] [address]Dr. Yuki Diaz Anion gap [Moles/Vol] 11.6 mmol/L Normal [facility] Comment on above: Performed By: #### CMP ####[facility] Zxrkhtwmfu1349 [place] [address]Dr. Yuki Diaz AST [Catalytic activity/Vol] 12 U/L Critically low 15-37 [facility] Comment on above: Performed By: #### CMP ####[facility] Cwirutgeaf8707 [place] [address]Dr. Yuki Diaz Bilirubin [Mass/Vol] 0.7 mg/dL Normal 0.2-1.0 [facility] Comment on above: Performed By: #### CMP ####[facility] Wflqfsthck6826 [place] [address]Dr. Yuki Diaz Calcium [Mass/Vol] 8.7 mg/dL Normal 8.5-10.1 [facility] Comment on above: Performed By: #### CMP ####[facility] Rvkaqmfhvq7211 [place] [address]Dr. Yuki Diaz Chloride [Moles/Vol] 103 mmol/L Normal 98-107 [facility] Comment on above: Performed By: #### CMP ####[facility] Uregsscloq6772 [place] [address]Dr. Yuki Diaz CO2 [Moles/Vol] 32.5 mmol/L Critically high 21.0-32.0 [facility] Comment on above: Performed By: #### CMP ####[facility] Zozwcjxcxf8794 [place] [address]Dr. Yuki Joe Creatinine [Mass/Vol] 2.35 mg/dL Critically high 0.70-1.30 [facility] Comment on above: Performed By: #### CMP ####[facility] Yxtebfhqgi04[address] [place], [place] [address]Dr. Yuki Diaz EGFR-AF UKRAINIAN 33 mL/min/1.73m2 Critically low >=60 [facility] Comment on above: Performed By: #### CMP ####[facility] Trfusqytkv5250[address] [place], [place] [address]Dr. Yuki Joe EGFR-NON AF UKRAINIAN 27 mL/min/1.73m2 Critically low >=60 [facility] Comment on above: Performed By: #### CMP ####[facility] Idzsrxcock6459 [place] [address]Dr. Yuki Diaz Globulin (S) [Mass/Vol] 3.6 g/dL Normal [facility] Comment on above: Performed By: #### CMP ####[facility] Mlusqouozp6705 [place] [address]Dr. Yuki Diaz Glucose [Mass/Vol] 206 mg/dL Critically high 74-106 [facility] Comment on above: Performed By: #### CMP ####[facility] Ntivmyvyni2140 [place] [address]Dr. Yuki Diaz Potassium [Moles/Vol] 4.1 mmol/L Normal 3.5-5.1 [facility] Comment on above: Performed By: #### CMP ####[facility] Icqyiztxju8312[address] [place], [place] [address]Dr. Yuki Diaz Protein [Mass/Vol] 6.5 g/dL Normal 6.4-8.2 [facility] Comment on above: Performed By: #### CMP ####[facility] Waqwjfixgb1112[address] [place], [place] [address]Dr. Yuki Diaz Sodium [Moles/Vol] 143 mmol/L Normal 136-145 [facility] Comment on above: Performed By: #### CMP ####[facility] Ekqkzcrvyq6400[address] [place], [place] [address]Dr. Yuki Diaz Urea nitrogen [Mass/Vol] 34.0 mg/dL Critically high 7.0-18.0 [facility] Comment on above: Performed By: #### CMP ####[facility] Rylbbfupwu029[address] [place], [place] [address]Dr. Yuki Diaz Urea nitrogen/Creatin ine [Mass ratio] 14.5 mg/mg Normal [facility] Comment on above: Performed By: #### CMP ####[facility] Ibxhazipyi016[address] [place], [place] [address]Dr. Yuki Diaz BNPon 02-03-2022 Natriuretic peptide B (Bld) [Mass/Vol] 3216.0 pg/mL Critically high <=1,800.0 [facility] Comment on above: Result Comment: repeated Performed By: #### B CMO ####[facility] Rgtguzxjwt5[address] [place], [place] [address]Dr. Yuki Diaz PROF 14(COMP METB)on 022 Albumin [Mass/Vol] 3.0 g/dL Critically low 3.4-5.0 [facility] Comment on above: Performed By: #### CMP ####[facility] Xvibjynawf1557 [place] [address]Dr. Yuki Diaz Albumin/Globulin [Mass ratio] 0.8 {ratio} Normal [facility] Comment on above: Performed By: #### CMP ####[facility] Frqrvkflew6644 [place] [address]Dr. Yuki Diaz ALP [Catalytic activity/Vol] 104 U/L Normal 46-116 [facility] Comment on above: Performed By: #### CMP ####[facility] Xbmplsaxzz5423 [place] [address]Dr. Yuki Diaz ALT [Catalytic activity/Vol] 32 U/L Normal 16-63 [facility] Comment on above: Performed By: #### CMP ####[facility] Udneyutvxy5058 [place] [address]Dr. Yuki Diaz Anion gap [Moles/Vol] 9.3 mmol/L Normal [facility] Comment on above: Performed By: #### CMP ####[facility] Vynxwxxerc376[address] [place], [place] [address]Dr. Yuki Diaz AST [Catalytic activity/Vol] 15 U/L Normal 15-37 [facility] Comment on above: Performed By: #### CMP ####[facility] Twadbvgwce8662 [place] [address]Dr. Monsealyssa Diaz Bilirubin [Mass/Vol] 0.9 mg/dL Normal 0.2-1.0 [facility] Comment on above: Performed By: #### CMP ####[facility] Wdpqiaeohn2378 [place] [address]Dr. Monsealyssa Diaz Calcium [Mass/Vol] 8.6 mg/dL Normal 8.5-10.1 [facility] Comment on above: Performed By: #### CMP ####[facility] Xhkqvurfjd8985 [place] [address]Dr. Yuki Diaz Chloride [Moles/Vol] 104 mmol/L Normal 98-107 [facility] Comment on above: Performed By: #### CMP ####[facility] Lplijvcmuy5157[address] [place], [place] [address]Dr. Yuki Joe CO2 [Moles/Vol] 35.9 mmol/L Critically high 21.0-32.0 [facility] Comment on above: Performed By: #### CMP ####[facility] Qmtqcjvshq7971 [place] [address]Dr. Yuki Diaz Creatinine [Mass/Vol] 1.98 mg/dL Critically high 0.70-1.30 [facility] Comment on above: Performed By: #### CMP ####[facility] Ppduxxvjod3702 [place] [address]Dr. Yuki Joe EGFR-AF UKRAINIAN 40 mL/min/1.73m2 Critically low >=60 [facility] Comment on above: Performed By: #### CMP ####[facility] Kzxqhfhzyv0941 [place] [address]Dr. Monsealyssa Joe EGFR-NON AF UKRAINIAN 33 mL/min/1.73m2 Critically low >=60 [facility] Comment on above: Performed By: #### CMP ####[facility] Wsxajodspt4287 [place] [address]Dr. Yuki Diaz Globulin (S) [Mass/Vol] 3.9 g/dL Normal [facility] Comment on above: Performed By: #### CMP ####[facility] Ngfkpmhwnd3247 [place] [address]Dr. Yuki Joe Glucose [Mass/Vol] 124 mg/dL Critically high 74-106 [facility] Comment on above: Performed By: #### CMP ####[facility] Etbxpptzcd1670 [place] [address]Dr. Yuki Joe Potassium [Moles/Vol] 4.2 mmol/L Normal 3.5-5.1 [facility] Comment on above: Performed By: #### CMP ####[facility] Cbewubzehu7483 [place] [address]Dr. Yuki Diaz Protein [Mass/Vol] 6.9 g/dL Normal 6.4-8.2 [facility] Comment on above: Performed By: #### CMP ####[facility] Pyjwvvrtpq1044 [place] [address]Dr. Yuki Diaz Sodium [Moles/Vol] 145 mmol/L Normal 136-145 [facility] Comment on above: Performed By: #### CMP ####[facility] Jvnefcgxsg7402 [place] [address]Dr. Yuki Diaz Urea nitrogen [Mass/Vol] 27.0 mg/dL Critically high 7.0-18.0 [facility] Comment on above: Performed By: #### CMP ####[facility] Juucuoeouc2907 [place] [address]Dr. Yuki Diaz Urea nitrogen/Creatin ine [Mass ratio] 13.6 mg/mg Normal [facility] Comment on above: Performed By: #### CMP ####[facility] Nqliosqypx2175 [place] [address]Dr. Yuki Diaz BNPon 01-27-2022 Natriuretic peptide B (Bld) [Mass/Vol] 2090.0 pg/mL Critically high <=1,800.0 [facility] Comment on above: Performed By: #### CMP, BNP ####[facility] Wdwgfiqhub6346 [place] [address]Dr. Yuki Diaz CBC AUTO DIFFon 01-27-2022 BASO # 0.0 103/ul Normal 0.0-0.1 [facility] Comment on above: Performed By: #### CBC ####[facility] Cupsxrrmlu2142 [place] [address]Dr. Yuki Diaz Basophils/100 WBC (Bld) 0.2 % Normal 0.2-2.0 [facility] Comment on above: Performed By: #### CBC ####[facility] Pcwytfaiqb9941 [place] [address]Dr. Yuki Diaz EO # 0.2 103/ul Normal 0.0-0.7 [facility] Comment on above: Performed By: #### CBC ####[facility] Pdeyquhrli8717 [place] [address]Dr. Yuki Diaz Eosinophils/100 WBC (Bld) 1.8 % Normal 0.9-7.0 [facility] Comment on above: Performed By: #### CBC ####[facility] Yfpleeembc2438 [place] [address]Dr. Yuki Diaz Erythrocyte distribution width (RBC) [Ratio] 13.4 % Normal 11.0-15.0 [facility] Comment on above: Performed By: #### CBC ####[facility] Oesldumaas2444 [place] [address]Dr. Yuki Diaz Hematocrit (Bld) [Volume fraction] 32.6 % Critically low 42.0-54.0 [facility] Comment on above: Performed By: #### CBC ####[facility] [address]oalnhqa[address] [place] [address]. Yuki Diaz Hemoglobin (Bld) [Mass/Vol] 10.4 g/dL Critically low 14.0-18.0 [facility] Comment on above: Performed By: #### CBC ####[facility] Bkyacgqufa98[address] [place] [address]. Yuki Diaz IG # 0.03 10e3/ul Normal 0.00-0.03 [facility] Comment on above: Performed By: #### CBC ####[facility] [address]mypzauyhj[address] [place] [address]. Yuki Diaz IG % 0.3 % Normal 0.0-0.5 [facility] Comment on above: Performed By: #### CBC ####[facility] Vhgglxdpwk7475[address] [place], [place] [address]Dr. Yuki Diaz LYMPH # 1.2 103/ul Normal 1.2-3.8 [facility] Comment on above: Performed By: #### CBC ####[facility] Hizajiyqpy0189 [place] [address]Dr. Yuki Diaz Lymphocytes/100 WBC (Bld) 13.8 % Critically low 20.5-60.0 [facility] Comment on above: Performed By: #### CBC ####[facility] Cxkueicgey022[address] [place], [place] [address]Dr. Yuki Diaz MANUAL DIFF REQ NO Normal [facility] Comment on above: Performed By: #### CBC ####[facility] Bbmfuqsdkg8728 [place] [address]Dr. Yuki Diaz MCH (RBC) [Entitic mass] 31.9 pg Normal 25.9-34.0 [facility] Comment on above: Performed By: #### CBC ####[facility] Opvwqrnaur0041 [place] [address]Dr. Yuki Diaz MCHC (RBC) [Mass/Vol] 31.9 g/dL Normal 29.9-35.2 [facility] Comment on above: Performed By: #### CBC ####[facility] Geawijophk1417 [place] [address]Dr. Monsealyssa Diaz MCV (RBC) [Entitic vol] 100.0 fL Critically high 80.0-94.0 [facility] Comment on above: Performed By: #### CBC ####[facility] Wtrjdflfpg3340[address] [place], [place] [address]Dr. Yuki Diaz MONO # 0.9 103/ul Critically high 0.3-0.8 [facility] Comment on above: Performed By: #### CBC ####[facility] Jlxjoyqyiu9287 [place] [address]Dr. Monsealyssa Diaz Monocytes/100 WBC (Bld) 10.1 % Normal 1.7-12.0 [facility] Comment on above: Performed By: #### CBC ####[facility] Hvvfylmnta6399 [place] [address]Dr. Yuki Diaz NEUT # 6.6 103/ul Critically high 1.4-6.5 [facility] Comment on above: Performed By: #### CBC ####[facility] Bicqcrkqny2115 [place] [address]Dr. Monsealyssa Diaz Neutrophils/100 WBC (Bld) 73.8 % Normal 43.0-75.0 [facility] Comment on above: Performed By: #### CBC ####[facility] Wlltlbmlzd624[address] [place], [place] [address]Dr. Yuki Diaz Platelet mean volume (Bld) [Entitic vol] 10.3 fL Normal 9.5-13.5 [facility] Comment on above: Performed By: #### CBC ####[facility] Fitlbltyte5101 [place] [address]Dr. Yuki Diaz PLT 196 103/ul Normal 150-450 [facility] Comment on above: Performed By: #### CBC ####[facility] Ybalnifxqb0124 [place] [id number]. Monsealyssa Diaz RBC 3.26 106/ul Critically low 4.70-6.10 [facility] Comment on above: Performed By: #### CBC ####[facility] Emsqyearwu9880 [place] [address]Dr. Monsealyssa Joe WBC 9.0 103/ul Normal 4.0-11.0 [facility] Comment on above: Performed By: #### CBC ####[facility] Qdwmmclunx5461 [place] [address]Dr. Yuki Diaz POINT OF CARE GLUCOSEon 01-06 Glucose [Mass/Vol] 155 mg/dL Critically high 74-106 [facility] Comment on above: Performed By: #### POCGLUC ####[facility] Gocspfhqtu8813 [place] [address]Dr. Yuki Diaz Glucose [Mass/Vol] 120 mg/dL Critically high 74-106 [facility] Comment on above: Performed By: #### POCGLUC ####[facility] Hljtgjpfpz5392 [place] [address]Dr. Yuki Diaz PROF 14(COMP METB)on 022 Albumin [Mass/Vol] 2.8 g/dL Critically low 3.4-5.0 [facility] Comment on above: Performed By: #### CMP, BNP ####[facility] Bskxlvppep8912 [place] [address]Dr. Yuki Diaz Albumin/Globulin [Mass ratio] 0.8 {ratio} Normal [facility] Comment on above: Performed By: #### CMP, BNP ####[facility] Mczcvarmxs6823 [place] [phone]. Yuki Diaz ALP [Catalytic activity/Vol] 96 U/L Normal 46-116 [facility] Comment on above: Performed By: #### CMP, BNP ####[facility] Eqyhfxwnye9144 [place] [phone]. Yuki Diaz ALT [Catalytic activity/Vol] 27 U/L Normal 16-63 [facility] Comment on above: Performed By: #### CMP, BNP ####[facility] Qwvuchspxz6614 [place] [phone]. Yuik Diaz Anion gap [Moles/Vol] 8.7 mmol/L Normal [facility] Comment on above: Performed By: #### CMP, BNP ####[facility] Muwcqpyqct0186 [place] [phone]. Yuki Diaz AST [Catalytic activity/Vol] 17 U/L Normal 15-37 [facility] Comment on above: Performed By: #### CMP, BNP ####[facility] Oxicaosfnt1263 [place] [address]Dr. Yuki Diaz Bilirubin [Mass/Vol] 0.8 mg/dL Normal 0.2-1.0 [facility] Comment on above: Performed By: #### CMP, BNP ####[facility] Wfmmedrnnt3456 [place] [address]Dr. Yuki Diaz Calcium [Mass/Vol] 8.2 mg/dL Critically low 8.5-10.1 [facility] Comment on above: Performed By: #### CMP, BNP ####[facility] Memuxzuiwn3910 [place] [address]Dr. Yuki Diaz Chloride [Moles/Vol] 104 mmol/L Normal 98-107 [facility] Comment on above: Performed By: #### CMP, BNP ####[facility] Zcykdegbri8539 [place] [phone]. Yuki Diaz CO2 [Moles/Vol] 37.3 mmol/L Critically high 21.0-32.0 [facility] Comment on above: Performed By: #### CMP, BNP ####[facility] Vhmbjgucyb3815 [place] [phone]. Yuki Diaz Creatinine [Mass/Vol] 1.90 mg/dL Critically high 0.70-1.30 [facility] Comment on above: Performed By: #### CMP, BNP ####[facility] Qiucgwewvp0447 [place] [address]Dr. Yuki Diaz EGFR-AF UKRAINIAN 42 mL/min/1.73m2 Critically low >=60 [facility] Comment on above: Performed By: #### CMP, BNP ####[facility] Vhpovlktld22[address] [place], [place] [address]Dr. Yuki Diaz EGFR-NON AF UKRAINIAN 34 mL/min/1.73m2 Critically low >=60 [facility] Comment on above: Performed By: #### CMP, BNP ####[facility] Oikmowtvhl6812[address] [place], [place] [address]Dr. Yuki Diaz Globulin (S) [Mass/Vol] 3.5 g/dL Normal [facility] Comment on above: Performed By: #### CMP, BNP ####[facility] Efpqlgtcol705[address] [place], [place] [address]Dr. Yuki Diaz Glucose [Mass/Vol] 44 mg/dL Critically low 74-106 [facility] Comment on above: Result Comment: Test Repeated. Critical Value Verified Performed By: #### C MP, BNP ####[facility] Xpiynkltbb009[address] [place], [place] [address]Dr. Yuki Diaz Potassium [Moles/Vol] 3.0 mmol/L Critically low 3.5-5.1 [facility] Comment on above: Performed By: #### CMP, BNP ####[facility] Cwjwzixnzo705[address] [place], [place] [address]Dr. Yuki Diaz Protein [Mass/Vol] 6.3 g/dL Critically low 6.4-8.2 [facility] Comment on above: Performed By: #### CMP, BNP ####[facility] Nsfeagdkug3459[address] [place], [place] [address]Dr. Yuki Diaz Sodium [Moles/Vol] 147 mmol/L Critically high 136-145 [facility] Comment on above: Performed By: #### CMP, BNP ####[facility] Ynjpixkodz660[address] [place], [place] [address]Dr. Yuki Diaz Urea nitrogen [Mass/Vol] 33.0 mg/dL Critically high 7.0-18.0 [facility] Comment on above: Performed By: #### CMP, BNP ####[facility] Gnygmmwxfr4760[address] [place], [place] [address]Dr. Yuki Diaz Urea nitrogen/Creatin ine [Mass ratio] 17.4 mg/mg Normal [facility] Comment on above: Performed By: #### CMP, BNP ####[facility] Njjqfycvgm5099[address] [place], [place] [address]Dr. Yuki Diaz BNPon 01-26-2022 Natriuretic peptide B (Bld) [Mass/Vol] 3997.0 pg/mL Critically high <=1,800.0 [facility] Comment on above: Performed By: #### BNP, CMP ####[facility] Daijyywpef027[address] [place], [place] [address]Dr. Yuki Diaz CBC AUTO DIFFon 01-26-2022 BASO # 0.0 103/ul Normal 0.0-0.1 [facility] Comment on above: Performed By: #### CBC ####[facility] Njnvvjemoq520[address] [place], [place] [address]Dr. Yuki Diaz Basophils/100 WBC (Bld) 0.2 % Normal 0.2-2.0 [facility] Comment on above: Performed By: #### CBC ####[facility] Vyxkadggxm734[address] [place], [place] [address]Dr. Yuki Diaz EO # 0.2 103/ul Normal 0.0-0.7 [facility] Comment on above: Performed By: #### CBC ####[facility] Uklqxrlmec6429[address] [place], [place] [address]Dr. Yuki Diaz Eosinophils/100 WBC (Bld) 1.6 % Normal 0.9-7.0 [facility] Comment on above: Performed By: #### CBC ####[facility] Azawomrhmk657[address] [place], [place] [address]Dr. Yuki Diaz Erythrocyte distribution width (RBC) [Ratio] 13.5 % Normal 11.0-15.0 [facility] Comment on above: Performed By: #### CBC ####[facility] Pixfkhbzcs4248 [place] [address]Dr. Yuki Diaz Hematocrit (Bld) [Volume fraction] 34.9 % Critically low 42.0-54.0 [facility] Comment on above: Performed By: #### CBC ####[facility] Cfnqxxyinq7903 [place] [address]Dr. Yuki Diaz Hemoglobin (Bld) [Mass/Vol] 11.3 g/dL Critically low 14.0-18.0 [facility] Comment on above: Performed By: #### CBC ####[facility] Ruhvndcwen5197 [place] [address]Dr. Yuki Diaz IG # 0.03 10e3/ul Normal 0.00-0.03 [facility] Comment on above: Performed By: #### CBC ####[facility] Vvmbhugafr[address] Monsealyssa Diaz IG % 0.3 % Normal 0.0-0.5 [facility] Comment on above: Performed By: #### CBC ####[facility] Iangttpzuq0573 [address] Yuki Diaz LYMPH # 1.5 103/ul Normal 1.2-3.8 [facility] Comment on above: Performed By: #### CBC ####[facility] Zmixmidjrt4221 [place] [address]Dr. Monsealyssa Diaz Lymphocytes/100 WBC (Bld) 15.1 % Critically low 20.5-60.0 [facility] Comment on above: Performed By: #### CBC ####[facility] Zqllhbaovx1448 [place] [address]Dr. Monsealyssa Diaz MANUAL DIFF REQ NO Normal [facility] Comment on above: Performed By: #### CBC ####[facility] Iungxfgffq4615 [place] [address]Dr. Yuki Diaz MCH (RBC) [Entitic mass] 32.2 pg Normal 25.9-34.0 [facility] Comment on above: Performed By: #### CBC ####[facility] Pywsdfanzc4205 [place] [address]Dr. Yuki Joe MCHC (RBC) [Mass/Vol] 32.4 g/dL Normal 29.9-35.2 [facility] Comment on above: Performed By: #### CBC ####[facility] Qsocljiitv7515 [place] [address]Dr. Yuki Diaz MCV (RBC) [Entitic vol] 99.4 fL Critically high 80.0-94.0 [facility] Comment on above: Performed By: #### CBC ####[facility] Psmeaavfbo8130 [place] [address]Dr. Yuki Diaz MONO # 1.1 103/ul Critically high 0.3-0.8 [facility] Comment on above: Performed By: #### CBC ####[facility] Qligdqejay6663 [place] [address]Dr. Yuki Diaz Monocytes/100 WBC (Bld) 10.7 % Normal 1.7-12.0 [facility] Comment on above: Performed By: #### CBC ####[facility] Jdwfnxshxn87[address] [place], [place] [address]Dr. Yuki Diaz NEUT # 7.3 103/ul Critically high 1.4-6.5 [facility] Comment on above: Performed By: #### CBC ####[facility] Wxmwegyojs80[address] [place], [place] [address]Dr. Yuki Diaz Neutrophils/100 WBC (Bld) 72.1 % Normal 43.0-75.0 [facility] Comment on above: Performed By: #### CBC ####[facility] Qfcnrjouao467[address] [place], [place] [address]Dr. Yuki Diaz Platelet mean volume (Bld) [Entitic vol] 10.2 fL Normal 9.5-13.5 [facility] Comment on above: Performed By: #### CBC ####[facility] Vhejtydkvz9[address] [place], [place] [address]Dr. Yuki Diaz PLT 208 103/ul Normal 150-450 [facility] Comment on above: Performed By: #### CBC ####[facility] Pgfnldramj6314 [place] [id number]. Monsealyssa Joe RBC 3.51 106/ul Critically low 4.70-6.10 [facility] Comment on above: Performed By: #### CBC ####[facility] Gthcolwqcv1920 [place] [address]Dr. Yuki Diaz WBC 10.1 103/ul Normal 4.0-11.0 [facility] Comment on above: Performed By: #### CBC ####[facility] Aomaqqkvso8069 [place] [id number]. Yuki Diaz POINT OF CARE GLUCOSEon 01-06 Glucose [Mass/Vol] 205 mg/dL Critically high 74-106 [facility] Comment on above: Performed By: #### POCGLUC ####[facility] Oycbrjwvln5068 [place] [address]Dr. Yuki Diaz Glucose [Mass/Vol] 210 mg/dL Critically high 74-106 [facility] Comment on above: Performed By: #### POCGLUC ####[facility] Ojijhxqsep5320 [place] [address]Dr. Yuki Diaz Glucose [Mass/Vol] 160 mg/dL Critically high 74-106 [facility] Comment on above: Performed By: #### POCGLUC ####[facility] Jnaefqxmtd3796 [place] [address]Dr. Yuki Diaz PROF 14(COMP METB)on 022 Albumin [Mass/Vol] 3.0 g/dL Critically low 3.4-5.0 [facility] Comment on above: Performed By: #### BNP, CMP ####[facility] Jdusneeswy[address] [place] [address]Dr. Yuki Diaz Albumin/Globulin [Mass ratio] 0.8 {ratio} Normal [facility] Comment on above: Performed By: #### BNP, CMP ####[facility] Wpvcwdhhve4694 [place] [address]Dr. Yuki Diaz ALP [Catalytic activity/Vol] 106 U/L Normal 46-116 [facility] Comment on above: Performed By: #### BNP, CMP ####[facility] Yhcztolmgl8713 [place] [address]Dr. Yuki Diaz ALT [Catalytic activity/Vol] 33 U/L Normal 16-63 [facility] Comment on above: Performed By: #### BNP, CMP ####[facility] Dlcmnohndz3147 [place] [address]Dr. Yuki Diaz Anion gap [Moles/Vol] 6.1 mmol/L Normal [facility] Comment on above: Performed By: #### BNP, CMP ####[facility] Wztydxkbww5861 [place] [address]Dr. Yuki Joe AST [Catalytic activity/Vol] 20 U/L Normal 15-37 [facility] Comment on above: Performed By: #### BNP, CMP ####[facility] Fgrfqzxmvt48[address] [place], [place] [address]Dr. Yuki Diaz Bilirubin [Mass/Vol] 0.8 mg/dL Normal 0.2-1.0 [facility] Comment on above: Performed By: #### BNP, CMP ####[facility] Sdpzofxtyy762[address] [place], [place] [address]Dr. Yuki Joe Calcium [Mass/Vol] 8.4 mg/dL Critically low 8.5-10.1 [facility] Comment on above: Performed By: #### BNP, CMP ####[facility] Filrnnsmxx6913[address] [place], [place] [address]Dr. Yuki Diaz Chloride [Moles/Vol] 105 mmol/L Normal 98-107 [facility] Comment on above: Performed By: #### BNP, CMP ####[facility] Zcyahveqbn0337[address] [place], [place] [address]Dr. Yuki Diaz CO2 [Moles/Vol] 40.2 mmol/L Critically high 21.0-32.0 [facility] Comment on above: Performed By: #### BNP, CMP ####[facility] Wuetodogfo204[address] [place], [place] [address]Dr. Yuki Diaz Creatinine [Mass/Vol] 1.88 mg/dL Critically high 0.70-1.30 [facility] Comment on above: Performed By: #### BNP, CMP ####[facility] Lpoaqpdfss9339 [place] [address]Dr. Yuki Diaz EGFR-AF UKRAINIAN 42 mL/min/1.73m2 Critically low >=60 [facility] Comment on above: Performed By: #### BNP, CMP ####[facility] Wzljahaswh5775 [place] [address]Dr. Yuki Diaz EGFR-NON AF UKRAINIAN 35 mL/min/1.73m2 Critically low >=60 [facility] Comment on above: Performed By: #### BNP, CMP ####[facility] Rfabsalabw5859 [place] [address]Dr. Yuki Joe Globulin (S) [Mass/Vol] 3.6 g/dL Normal [facility] Comment on above: Performed By: #### BNP, CMP ####[facility] Esfrstwkmz5385[address] [place], [place] [address]Dr. Monsealyssa Joe Glucose [Mass/Vol] 62 mg/dL Critically low 74-106 [facility] Comment on above: Performed By: #### BNP, CMP ####[facility] Fsjhqyqrrr944[address] [place], [place] [address]Dr. Yuki Joe Potassium [Moles/Vol] 3.3 mmol/L Critically low 3.5-5.1 [facility] Comment on above: Performed By: #### BNP, CMP ####[facility] Zmbgzxjddc511[address] [place], [place] [address]Dr. Yuki Joe Protein [Mass/Vol] 6.6 g/dL Normal 6.4-8.2 [facility] Comment on above: Performed By: #### BNP, CMP ####[facility] Qsxtzdwexp817586 [address] [place], [place] [address]Dr. Monsealyssa Joe Sodium [Moles/Vol] 148 mmol/L Critically high 136-145 [facility] Comment on above: Performed By: #### BNP, CMP ####[facility] Sfcqowymdj032[address] [place], [place] [address]Dr. Monsealyssa Joe Urea nitrogen [Mass/Vol] 29.0 mg/dL Critically high 7.0-18.0 [facility] Comment on above: Performed By: #### BNP, CMP ####[facility] Votgbnxpvm3790[address] [place], [place] [address]Dr. Yuki Diaz Urea nitrogen/Creatin ine [Mass ratio] 15.4 mg/mg Normal [facility] Comment on above: Performed By: #### BNP, CMP ####[facility] Jwgmzzcttc1118[address] [place], [place] [address]Dr. Yuki Diaz PROF CHEM 8 (BAS METB)on Anion gap [Moles/Vol] 11.1 mmol/L Normal [facility] Comment on above: Performed By: #### BMP ####[facility] Aivvlaizpw97[address] [place], [place] [address]Dr. Yuki Diaz Calcium [Mass/Vol] 8.1 mg/dL Critically low 8.5-10.1 [facility] Comment on above: Performed By: #### BMP ####[facility] Lulcjejfnd2039[address] [place], [place] [address]Dr. Yuki Diaz Chloride [Moles/Vol] 102 mmol/L Normal 98-107 [facility] Comment on above: Performed By: #### BMP ####[facility] ital Kfkemtrmim489[address] [place], [place] [address]Dr. Yuki Diaz CO2 [Moles/Vol] 35.4 mmol/L Critically high 21.0-32.0 [facility] Comment on above: Performed By: #### BMP ####[facility] Gbquwmykaz718086 [address] [place], [place] [address]Dr. Yuki Diaz Creatinine [Mass/Vol] 1.88 mg/dL Critically high 0.70-1.30 [facility] Comment on above: Performed By: #### BMP ####[facility] ital Czauwbgkvm0369[address] [place], [place] [address]Dr. Yuki Diaz EGFR-AF UKRAINIAN 42 mL/min/1.73m2 Critically low >=60 [facility] Comment on above: Performed By: #### BMP ####[facility] Gcwwbmswgc1817[address] [place], [place] [address]Dr. Yuki Diaz EGFR-NON AF UKRAINIAN 35 mL/min/1.73m2 Critically low >=60 [facility] Comment on above: Performed By: #### BMP ####[facility] Qwdleisvzr2301 [place] [address]Dr. Yuki Diaz Glucose [Mass/Vol] 208 mg/dL Critically high 74-106 [facility] Comment on above: Performed By: #### BMP ####[facility] Olvslimtez2849 [place] [address]Dr. Yuki Diaz Potassium [Moles/Vol] 3.5 mmol/L Normal 3.5-5.1 [facility] Comment on above: Performed By: #### BMP ####[facility] Ezdqixbcvh3705 [place] [address]Dr. Yuki Diaz Sodium [Moles/Vol] 145 mmol/L Normal 136-145 [facility] Comment on above: Performed By: #### BMP ####[facility] Qfoqyrsifl1004 [place] [address]Dr. Yuki Diaz Urea nitrogen [Mass/Vol] 33.0 mg/dL Critically high 7.0-18.0 [facility] Comment on above: Performed By: #### BMP ####[facility] Febqaskleh2893 [place] [address]Dr. Yuki Diaz Urea nitrogen/Creatin ine [Mass ratio] 17.6 mg/mg Normal [facility] Comment on above: Performed By: #### BMP ####[facility] Osldsfmasj1524 [place] [address]Dr. Yuki Diaz PROTIMEon 01-26-2022 INR Coag (PPP) [Relative time] 1.15 {INR} Normal [facility] Comment on above: Performed By: #### PT ####[facility] Ussjnqlzpu3467 [place] [address]Dr. Yuki Diaz INR GUIDELINES SEE BELOW Normal [facility] Comment on above: Result Comment: DESIRED INR: 2.0 - 3.0 C ONDITIONS NOT LISTED BELOW 2.5 - 3.5 FOR PROSTHETIC HEART VALVE REPLACEMENT 2.5 - 3.5 RECURRENT THROMBOSIS Performed By: #### P T ####[facility] Ugqffzkfny180[address] [place], [place] [address]Dr. Yuki Diaz PT Coag (PPP) [Time] 12.3 s Critically high 9.0-11.6 [facility] Comment on above: Performed By: #### PT ####[facility] Lualjvcxze4820[address] [place], [place] [address]Dr. Yuki Diaz BNPon 01-25-2022 Natriuretic peptide B (Bld) [Mass/Vol] 3414.0 pg/mL Critically high <=1,800.0 [facility] Comment on above: Performed By: #### BNP, BMP ####[facility] Dtariwizon9[address] [place], [place] [address]Dr. Yuki Diaz CBC AUTO DIFFon 01-25-2022 BASO # 0.0 103/ul Normal 0.0-0.1 [facility] Comment on above: Performed By: #### CBC ####[facility] Jusilwqevv34[address] [place], [place] [address]Dr. Yuki Diaz Basophils/100 WBC (Bld) 0.3 % Normal 0.2-2.0 [facility] Comment on above: Performed By: #### CBC ####[facility] Ufakcxnzka2667[address] [place], [place] [address]Dr. Yuki Diaz EO # 0.2 103/ul Normal 0.0-0.7 [facility] Comment on above: Performed By: #### CBC ####[facility] Bwbdmuhqwx[address] [place] [address]. Yuki Diaz Eosinophils/100 WBC (Bld) 1.9 % Normal 0.9-7.0 [facility] Comment on above: Performed By: #### CBC ####[facility] Lhudnaznrc0709[address] [place], [place] [address]Dr. Yuki Diaz Erythrocyte distribution width (RBC) [Ratio] 13.2 % Normal 11.0-15.0 [facility] Comment on above: Performed By: #### CBC ####[facility] Vusfxrulyh45[address] [place], [place] [id number]. Monsealyssa Diaz Hematocrit (Bld) [Volume fraction] 33.8 % Critically low 42.0-54.0 [facility] Comment on above: Performed By: #### CBC ####[facility] Djcdhekjez6287 [place] [address]Dr. Monsealyssa Diaz Hemoglobin (Bld) [Mass/Vol] 10.8 g/dL Critically low 14.0-18.0 [facility] Comment on above: Performed By: #### CBC ####[facility] Eqpucdkhbq9405 [place] [address]Dr. Yuki Diaz IG # 0.04 10e3/ul Critically high 0.00-0.03 [facility] Comment on above: Performed By: #### CBC ####[facility] Lzwyctywfn3190 [place] [address]Dr. Yuki Diaz IG % 0.4 % Normal 0.0-0.5 [facility] Comment on above: Performed By: #### CBC ####[facility] Xryrvtbqow4124 [address] Yuki Diaz LYMPH # 1.5 103/ul Normal 1.2-3.8 [facility] Comment on above: Performed By: #### CBC ####[facility] Yhpkwuhbqr6760 [place] [address]Dr. Yuki Diaz Lymphocytes/100 WBC (Bld) 14.8 % Critically low 20.5-60.0 [facility] Comment on above: Performed By: #### CBC ####[facility] Vyjrzxvklh2413 [place] [address]Dr. Yuki Diaz MANUAL DIFF REQ NO Normal [facility] Comment on above: Performed By: #### CBC ####[facility] Ryktmfqjzd1969 [place] [address]DrBebo Diaz MCH (RBC) [Entitic mass] 31.9 pg Normal 25.9-34.0 [facility] Comment on above: Performed By: #### CBC ####[facility] Frzobevztt7488 [place] [address]Dr. Yuki Joe MCHC (RBC) [Mass/Vol] 32.0 g/dL Normal 29.9-35.2 [facility] Comment on above: Performed By: #### CBC ####[facility] Lgqfviqsrn1700 [place] [address]Dr. Yuki Diaz MCV (RBC) [Entitic vol] 99.7 fL Critically high 80.0-94.0 [facility] Comment on above: Performed By: #### CBC ####[facility] Mrmeptayoc0350 [place] [address]Dr. Yuki Joe MONO # 1.0 103/ul Critically high 0.3-0.8 [facility] Comment on above: Performed By: #### CBC ####[facility] Pnqkowkyqk1567 [place] [address]Dr. Yuki Diaz Monocytes/100 WBC (Bld) 9.8 % Normal 1.7-12.0 [facility] Comment on above: Performed By: #### CBC ####[facility] Ebmdhshgcd6356 [place] [address]Dr. Yuki Joe NEUT # 7.1 103/ul Critically high 1.4-6.5 [facility] Comment on above: Performed By: #### CBC ####[facility] Gicfnzuvyx7519 [place] [address]Dr. Yuki Joe Neutrophils/100 WBC (Bld) 72.8 % Normal 43.0-75.0 [facility] Comment on above: Performed By: #### CBC ####[facility] Zgaynqgrcy3881 [place] [address]Dr. Yuki Joe Platelet mean volume (Bld) [Entitic vol] 10.4 fL Normal 9.5-13.5 [facility] Comment on above: Performed By: #### CBC ####[facility] Alhmdjypvz1033 [place] [address]Dr. Monsealyssa Diaz PLT 204 103/ul Normal 150-450 [facility] Comment on above: Performed By: #### CBC ####[facility] Jekfnjadxu0461 [place] [address]Dr. Yuki Diaz RBC 3.39 106/ul Critically low 4.70-6.10 [facility] Comment on above: Performed By: #### CBC ####[facility] Qkidmxelll9258 [place] [address]Dr. Yuki Diaz WBC 9.8 103/ul Normal 4.0-11.0 [facility] Comment on above: Performed By: #### CBC ####[facility] Vtdzwiszvz4425 [place] [address]Dr. Yuki Diaz POINT OF CARE GLUCOSEon -09 07-2021 Glucose [Mass/Vol] 194 mg/dL Critically high 74-106 [facility] Comment on above: Performed By: #### POCGLUC ####[facility] Lrwihuxvhz5893 [place] [address]Dr. Yuki Diaz Glucose [Mass/Vol] 196 mg/dL Critically high 74-106 [facility] Comment on above: Performed By: #### POCGLUC ####[facility] Triyckvtcm4[address] [place], [place] [address]Dr. Yuki Diaz Glucose [Mass/Vol] 253 mg/dL Critically high 74-106 [facility] Comment on above: Performed By: #### POCGLUC ####[facility] Qpsxfaddbx5934 [place] [address]Dr. Yuki Diaz Glucose [Mass/Vol] 106 mg/dL Normal 74-106 [facility] Comment on above: Performed By: #### POCGLUC ####[facility] Bskajpdpje36[address] [place], [place] [address]Dr. Yuki Diaz POTASSIUMon 01-25-2022 Potassium [Moles/Vol] 3.4 mmol/L Critically low 3.5-5.1 [facility] Comment on above: Performed By: #### K ####[facility] al Bzvbeuaboi5590 [place] [address]Dr. Yuki Diaz PROF CHEM 8 (BAS METB)on Anion gap [Moles/Vol] 9.0 mmol/L Normal [facility] Comment on above: Performed By: #### BMP ####[facility] Swhfxwmqbd6667 [place] [address]Dr. Yuki Diaz Calcium [Mass/Vol] 8.3 mg/dL Critically low 8.5-10.1 [facility] Comment on above: Performed By: #### BMP ####[facility] Uievwdqrez9845 [place] [address]Dr. Yuki Diaz Chloride [Moles/Vol] 103 mmol/L Normal 98-107 [facility] Comment on above: Performed By: #### BMP ####[facility] Ofmvhdgdfc7873 [place] [address]Dr. Yuki Diaz CO2 [Moles/Vol] 35.9 mmol/L Critically high 21.0-32.0 [facility] Comment on above: Performed By: #### BMP ####[facility] Dsbplnojzb0348 [place] [address]Dr. Yuki Diaz Creatinine [Mass/Vol] 1.94 mg/dL Critically high 0.70-1.30 [facility] Comment on above: Performed By: #### BMP ####[facility] Higlwxsgjj0415 [place] [address]Dr. Yuki Diaz EGFR-AF UKRAINIAN 41 mL/min/1.73m2 Critically low >=60 [facility] Comment on above: Performed By: #### BMP ####[facility] Qzouuzitdt7564 [place] [address]Dr. Yuki Diaz EGFR-NON AF UKRAINIAN 34 mL/min/1.73m2 Critically low >=60 [facility] Comment on above: Performed By: #### BMP ####[facility] Tejvxfzmzg2858 [place] [address]Dr. Yuki Diaz Glucose [Mass/Vol] 181 mg/dL Critically high 74-106 [facility] Comment on above: Performed By: #### BMP ####[facility] Ugwzicuprt8945 [place] [address]Dr. Yuki Diaz Potassium [Moles/Vol] 2.9 mmol/L Critically low 3.5-5.1 [facility] Comment on above: Result Comment: TEST REPEATED CRITICAL V ALUE VERIFIED Performed By: #### B MP ####[facility] Qpiddntlkx1250 [place] [address]Dr. Yuki Diaz Sodium [Moles/Vol] 145 mmol/L Normal 136-145 [facility] Comment on above: Performed By: #### BMP ####[facility] Wntixkwqsc1373 [place] [address]Dr. Yuki Diaz Urea nitrogen [Mass/Vol] 30.0 mg/dL Critically high 7.0-18.0 [facility] Comment on above: Performed By: #### BMP ####[facility] Nfkafnnlrk4836[address] [place], [place] [address]Dr. Yuki Joe Urea nitrogen/Creatin ine [Mass ratio] 15.5 mg/mg Normal [facility] Comment on above: Performed By: #### BMP ####[facility] Gykhslzqhz027[address] [place], [place] [address]Dr. Yuki Joe Anion gap [Moles/Vol] 9.0 mmol/L Normal [facility] Comment on above: Performed By: #### BNP, BMP ####[facility] Lopqopqktq018[address] [place], [place] [address]Dr. Yuki Joe Calcium [Mass/Vol] 8.3 mg/dL Critically low 8.5-10.1 [facility] Comment on above: Performed By: #### BNP, BMP ####[facility] Ctufcfxddn539[address] [place], [place] [address]Dr. Yuki Joe Chloride [Moles/Vol] 104 mmol/L Normal 98-107 [facility] Comment on above: Performed By: #### BNP, BMP ####[facility] Vkfapevyes7450 [place] [address]Dr. Yuki Diaz CO2 [Moles/Vol] 37.0 mmol/L Critically high 21.0-32.0 [facility] Comment on above: Performed By: #### BNP, BMP ####[facility] Huzrijmuvr8439[address] [place], [place] [address]Dr. Yuki Diaz Creatinine [Mass/Vol] 2.03 mg/dL Critically high 0.70-1.30 [facility] Comment on above: Performed By: #### BNP, BMP ####[facility] Vhartbyosj0673 [place] [address]Dr. Yuki Diaz EGFR-AF UKRAINIAN 39 mL/min/1.73m2 Critically low >=60 [facility] Comment on above: Performed By: #### BNP, BMP ####[facility] Uirdajcsup6763 [place] [address]Dr. Yuki Diaz EGFR-NON AF UKRAINIAN 32 mL/min/1.73m2 Critically low >=60 [facility] Comment on above: Performed By: #### BNP, BMP ####[facility] Hpnhbmbvgm1553 [place] [address]Dr. Monsealyssa Joe Glucose [Mass/Vol] 102 mg/dL Normal 74-106 [facility] Comment on above: Performed By: #### BNP, BMP ####[facility] Zwkgdugdlu7715 [place] [address]Dr. Yuki Diaz Potassium [Moles/Vol] 3.0 mmol/L Critically low 3.5-5.1 [facility] Comment on above: Performed By: #### BNP, BMP ####[facility] Utoqquqbws144[address] [place], [place] [address]Dr. Monsealyssa Joe Sodium [Moles/Vol] 147 mmol/L Critically high 136-145 [facility] Comment on above: Performed By: #### BNP, BMP ####[facility] Zmdsyxxqgg2890 [place] [address]Dr. Monsealyssa Joe Urea nitrogen [Mass/Vol] 31.0 mg/dL Critically high 7.0-18.0 [facility] Comment on above: Performed By: #### BNP, BMP ####[facility] Gswbdwhwpr4225 [place] [address]Dr. Monsealyssa Joe Urea nitrogen/Creatin ine [Mass ratio] 15.3 mg/mg Normal [facility] Comment on above: Performed By: #### BNP, BMP ####[facility] Jgyivggvoz4090 [place] [address]Dr. Monsealyssa Joe TROPONIN, HIGH SENSITIVITYon 01-25-2022 HSTROP 38.8 pg/mL Normal 4.0-76.1 [facility] Comment on above: Result Comment: CUT-OFF POINTS HAVE BEEN ESTABLISHED BASED ON THE FOURTH UNIVERSAL DEFINITIONS OF MYOCARDIALINFARCTION. THE UPPER REFERENCE LIMIT (URL) OF TROPONIN, DEFINED THE 99TH PERCENTILE OFcTnI DISTRIBUTION IN A REFERENCE POPULATION, HAS BEEN CONFIRMED THE DECISION THRESHOLDFOR AR DIAGNOSIS. Performed By: #### H STROPN ####[facility] Kjloxwvxfd5657 [place] [address]Dr. Yuki Diaz BNPon 01-24-2022 Natriuretic peptide B (Bld) [Mass/Vol] 3429.0 pg/mL Critically high <=1,800.0 [facility] Comment on above: Performed By: #### HSTROPN, CMADM, BNP # ###[facility] Tvsexftgob53[address] [place], [place] [address]Dr. Yuki Diaz CARDIAC RACHEL ADMITon 022 CK [Catalytic activity/Vol] 108 U/L Normal 39-308 [facility] Comment on above: Performed By: #### HSTROPN, CMADM, BNP # ###[facility] Jyouiutohp9689[address] [place], [place] [address]Dr. Yuki Diaz CK.MB [Mass/Vol] 2.44 ng/mL Normal <=3.60 [facility] Comment on above: Performed By: #### HSTROPN, CMADM, BNP # ###[facility] Ypfvczxzqj1628[address] [place], [place] [address]Dr. Yuki Diaz DILSHAD 177 ng/mL Critically high 16-96 [facility] Comment on above: Performed By: #### HSTROPN, CMADM, BNP # ###[facility] Trgoapenfl7125 [place] [address]Dr. Yuki Diaz CBC AUTO DIFFon 01-24-2022 BASO # 0.0 103/ul Normal 0.0-0.1 [facility] Comment on above: Performed By: #### CBC ####[facility] Chmkhdorsu436[address] [place], [place] [address]Dr. Yuki Diaz Basophils/100 WBC (Bld) 0.3 % Normal 0.2-2.0 [facility] Comment on above: Performed By: #### CBC ####[facility] Ixnmdiqprl3336 [address]ebo Yuki Diaz EO # 0.2 103/ul Normal 0.0-0.7 [facility] Comment on above: Performed By: #### CBC ####[facility] Pogjijdnkh6148 [address] Yuki Diaz Eosinophils/100 WBC (Bld) 1.7 % Normal 0.9-7.0 [facility] Comment on above: Performed By: #### CBC ####[facility] Ppvgbprxcy0367 [address] Yuki Diaz Erythrocyte distribution width (RBC) [Ratio] 13.5 % Normal 11.0-15.0 [facility] Comment on above: Performed By: #### CBC ####[facility] Aumnncpbgd2275 [address] Monsealyssa Diaz Hematocrit (Bld) [Volume fraction] 33.3 % Critically low 42.0-54.0 [facility] Comment on above: Performed By: #### CBC ####[facility] Iqmsygewjg[address] [place], [place] [address]Bebo Yuki Diaz Hemoglobin (Bld) [Mass/Vol] 10.8 g/dL Critically low 14.0-18.0 [facility] Comment on above: Performed By: #### CBC ####[facility] Hropwinfjr7[address] Yuki Diaz IG # 0.04 10e3/ul Critically high 0.00-0.03 [facility] Comment on above: Performed By: #### CBC ####[facility] Idtefvenmf9890 [address]eb[address] Monsealyssa Diaz IG % 0.4 % Normal 0.0-0.5 [facility] Comment on above: Performed By: #### CBC ####[facility] Ebvtqshogn8[address] [place], [place] [address]Bebo Diaz LYMPH # 1.3 103/ul Normal 1.2-3.8 [facility] Comment on above: Performed By: #### CBC ####[facility] Dsrxyaxbaf5023 [place] [address]DrBebo Diaz Lymphocytes/100 WBC (Bld) 13.8 % Critically low 20.5-60.0 [facility] Comment on above: Performed By: #### CBC ####[facility] Hjtvdanadl4453 [place] [address]DrBebo Diaz MANUAL DIFF REQ NO Normal [facility] Comment on above: Performed By: #### CBC ####[facility] Ozkobnawmp9138 [place] [address]DrBebo Diaz MCH (RBC) [Entitic mass] 32.8 pg Normal 25.9-34.0 [facility] Comment on above: Performed By: #### CBC ####[facility] Uyegardjtn5968 [place] [address]DrBebo Diaz MCHC (RBC) [Mass/Vol] 32.4 g/dL Normal 29.9-35.2 [facility] Comment on above: Performed By: #### CBC ####[facility] Dctedylidh5356 [place] [address]DrBebo Diaz MCV (RBC) [Entitic vol] 101.2 fL Critically high 80.0-94.0 [facility] Comment on above: Performed By: #### CBC ####[facility] Nigpsxaler1927 [place] [address]Dr. Yuki Diaz MONO # 0.8 103/ul Normal 0.3-0.8 [facility] Comment on above: Performed By: #### CBC ####[facility] Pqhjlsunva1693 [place] [address]DrBebo Diaz Monocytes/100 WBC (Bld) 8.3 % Normal 1.7-12.0 [facility] Comment on above: Performed By: #### CBC ####[facility] Qgiwrwfzsf6748 [place] [address]DrBebo Diaz NEUT # 7.2 103/ul Critically high 1.4-6.5 [facility] Comment on above: Performed By: #### CBC ####[facility] Objeqjurmj2432 [place] [address]Dr. Yuki Diaz Neutrophils/100 WBC (Bld) 75.5 % Critically high 43.0-75.0 [facility] Comment on above: Performed By: #### CBC ####[facility] Xvbaeopxkx4700 [place] [id number]. Yuki Diaz Platelet mean volume (Bld) [Entitic vol] 10.6 fL Normal 9.5-13.5 [facility] Comment on above: Performed By: #### CBC ####[facility] Avienxqqse6758 [place] [address]Dr. Yuki Diaz PLT 215 103/ul Normal 150-450 [facility] Comment on above: Performed By: #### CBC ####[facility] Gdcebjcclv4578 [place] [address]Dr. Yuki Diaz RBC 3.29 106/ul Critically low 4.70-6.10 [facility] Comment on above: Performed By: #### CBC ####[facility] Sryleteswl7149 [place] [address]Dr. Yuki Diaz WBC 9.5 103/ul Normal 4.0-11.0 [facility] Comment on above: Performed By: #### CBC ####[facility] Qknpukvwcf9160 [place] [address]Dr. Yuki Diaz Covid-19 PCR [facility]on 01-06 SARS-CoV-2 (COVID-19) RNA JARVIS+probe Ql (Unsp spec) Not detected Normal NOT DETECTED [facility] Comment on above: Result Comment: When [...] for this test is supported by the [place] of [employer] and Human Service's declaration that [...] longer be used). Performed By: #### C VDJAMA[facility] ####[facility] Oylnfxjmpg0970 [place] [address]Dr. Yuki Diaz PROF 14(COMP METB)on 022 Albumin [Mass/Vol] 2.8 g/dL Critically low 3.4-5.0 [facility] Comment on above: Performed By: #### CMP ####[facility] Coauuizoab[address] [place], [place] [address]Dr. Yuki Diaz Albumin/Globulin [Mass ratio] 0.8 {ratio} Normal [facility] Comment on above: Performed By: #### CMP ####[facility] ital Qfwqnnxtjg859186 [address] [place], [place] [address]Dr. Yuki Diaz ALP [Catalytic activity/Vol] 96 U/L Normal 46-116 [facility] Comment on above: Performed By: #### CMP ####[facility] Rtzhhrtsyq199[address] [place], [place] [address]Dr. Yuki Diaz ALT [Catalytic activity/Vol] 32 U/L Normal 16-63 [facility] Comment on above: Performed By: #### CMP ####[facility] ital Vxwlurgyla785[address] [place], [place] [address]Dr. Yuki Diaz Anion gap [Moles/Vol] 12.6 mmol/L Normal [facility] Comment on above: Performed By: #### CMP ####[facility] Satnxkimch044[address] [place], [place] [address]Dr. Yuki Diaz AST [Catalytic activity/Vol] 19 U/L Normal 15-37 [facility] Comment on above: Performed By: #### CMP ####[facility] Igdoaivvld3098 [place] [address]Dr. Yuki Diaz Bilirubin [Mass/Vol] 0.7 mg/dL Normal 0.2-1.0 [facility] Comment on above: Performed By: #### CMP ####[facility] Kkdapzazyf6285 [place] [address]Dr. Yuki Diaz Calcium [Mass/Vol] 8.2 mg/dL Critically low 8.5-10.1 [facility] Comment on above: Performed By: #### CMP ####[facility] Dhesqyujoy3924 [place] [address]Dr. Yuki Diaz Chloride [Moles/Vol] 103 mmol/L Normal 98-107 [facility] Comment on above: Performed By: #### CMP ####[facility] Vnnvcwnbkw7486 [place] [address]Dr. Yuki Diaz CO2 [Moles/Vol] 31.2 mmol/L Normal 21.0-32.0 [facility] Comment on above: Performed By: #### CMP ####[facility] Ugonnhnswm6479 [place] [address]Dr. Yuki Diaz Creatinine [Mass/Vol] 2.24 mg/dL Critically high 0.70-1.30 [facility] Comment on above: Performed By: #### CMP ####[facility] Nxpswjkecz1405 [place] [address]Dr. Yuki Diaz EGFR-AF UKRAINIAN 34 mL/min/1.73m2 Critically low >=60 [facility] Comment on above: Performed By: #### CMP ####[facility] Tsnxyzsqnd[address] [place] [id number]. Yuki Diaz EGFR-NON AF UKRAINIAN 28 mL/min/1.73m2 Critically low >=60 [facility] Comment on above: Performed By: #### CMP ####[facility] Zyzjeokasg4283 [place] [address]Dr. Yuki Diaz Globulin (S) [Mass/Vol] 3.4 g/dL Normal [facility] Comment on above: Performed By: #### CMP ####[facility] Drofwipquz3221 [place] [id number]. Yuki Diaz Glucose [Mass/Vol] 123 mg/dL Critically high 74-106 [facility] Comment on above: Performed By: #### CMP ####[facility] Qjwchyzvvw9602 [place] [address]Dr. Yuki Diaz Potassium [Moles/Vol] 2.7 mmol/L Critically low 3.5-5.1 [facility] Comment on above: Performed By: #### CMP ####[facility] Oosdkgmalq2351 [place] [address]Dr. Yuki Diaz Protein [Mass/Vol] 6.2 g/dL Critically low 6.4-8.2 [facility] Comment on above: Performed By: #### CMP ####[facility] Dxiirsysqr8574 [place] [address]Dr. Yuki Diaz Sodium [Moles/Vol] 142 mmol/L Normal 136-145 [facility] Comment on above: Performed By: #### CMP ####[facility] Kihqythrsh2629 [place] [address]Dr. Yuki Diaz Urea nitrogen [Mass/Vol] 29.0 mg/dL Critically high 7.0-18.0 [facility] Comment on above: Performed By: #### CMP ####[facility] Pjmsprvokm2027 [place] [address]Dr. Yuki Diaz Urea nitrogen/Creatin ine [Mass ratio] 12.9 mg/mg Normal [facility] Comment on above: Performed By: #### CMP ####[facility] Qjnmwgjewp9493 [place] [address]Dr. Yuki Diaz TROPONIN, HIGH SENSITIVITYon 01-24-2022 HSTROP 33.1 pg/mL Normal 4.0-76.1 [facility] Comment on above: Result Comment: CUT-OFF POINTS HAVE BEEN ESTABLISHED BASED ON THE FOURTH UNIVERSAL DEFINITIONS OF MYOCARDIALINFARCTION. THE UPPER REFERENCE LIMIT (URL) OF TROPONIN, DEFINED THE 99TH PERCENTILE OFcTnI DISTRIBUTION IN A REFERENCE POPULATION, HAS BEEN CONFIRMED THE DECISION THRESHOLDFOR AR DIAGNOSIS. Performed By: #### H STROPN, CMADM, BNP ####[facility] Qwpezpbcsg4808 [place] [address]Dr. Yuki Diaz XR CHEST 1 Von 01-24-2022 XR CHEST 1 V Normal [facility] BNPon 01-12-2022 Natriuretic peptide B (Bld) [Mass/Vol] 2759.0 pg/mL Critically high <=1,800.0 [facility] Comment on above: Performed By: #### CMP, BNP ####[facility] Kaoqgojjex6[address] [place], [place] [address]Dr. Yuki Diaz PROF 14(COMP METB)on 022 Albumin [Mass/Vol] 2.9 g/dL Critically low 3.4-5.0 [facility] Comment on above: Performed By: #### CMP, BNP ####[facility] Urcloqmnoi83[address] [place], [place] [address]Dr. Yuki Diaz Albumin/Globulin [Mass ratio] 0.8 {ratio} Normal [facility] Comment on above: Performed By: #### CMP, BNP ####[facility] Rczwcmolnt009986 [address] [place], [place] [address]Dr. Yuki Diaz ALP [Catalytic activity/Vol] 100 U/L Normal 46-116 [facility] Comment on above: Performed By: #### CMP, BNP ####[facility] Xqqcwvgird918[address] [place], [place] [address]Dr. Yuki Diaz ALT [Catalytic activity/Vol] 43 U/L Normal 16-63 [facility] Comment on above: Performed By: #### CMP, BNP ####[facility] Ufwudjdcrk1735[address] [place], [place] [address]Dr. Yuki Diaz Anion gap [Moles/Vol] 7.6 mmol/L Normal [facility] Comment on above: Performed By: #### CMP, BNP ####[facility] Jzdptpcelq143186 [address] [place], [place] [address]Dr. Yuki Diaz AST [Catalytic activity/Vol] 22 U/L Normal 15-37 [facility] Comment on above: Performed By: #### CMP, BNP ####[facility] Zhukrjewke2385[address] [place], [place] [address]Dr. Yuki Diaz Bilirubin [Mass/Vol] 0.8 mg/dL Normal 0.2-1.0 [facility] Comment on above: Performed By: #### CMP, BNP ####[facility] Inpoofsjbi5045 [place] [address]Dr. Yuki Diaz Calcium [Mass/Vol] 8.0 mg/dL Critically low 8.5-10.1 [facility] Comment on above: Performed By: #### CMP, BNP ####[facility] Rzsahqkcft1565 [place] [address]Dr. Yuki Diaz Chloride [Moles/Vol] 107 mmol/L Normal 98-107 [facility] Comment on above: Performed By: #### CMP, BNP ####[facility] Jrrsrjooji8904 [place] [address]Dr. Yuki Diaz CO2 [Moles/Vol] 37.1 mmol/L Critically high 21.0-32.0 [facility] Comment on above: Performed By: #### CMP, BNP ####[facility] Aftvtnyhoo267986 [address] [place], [place] [address]Dr. Yuki Diaz Creatinine [Mass/Vol] 1.94 mg/dL Critically high 0.70-1.30 [facility] Comment on above: Performed By: #### CMP, BNP ####[facility] Xnmmteuvwn9952 [place] [address]Dr. Yuki Diaz EGFR-AF UKRAINIAN 41 mL/min/1.73m2 Critically low >=60 [facility] Comment on above: Performed By: #### CMP, BNP ####[facility] Azkzsvtnjw9925 [place] [address]Dr. Yuki Diaz EGFR-NON AF UKRAINIAN 34 mL/min/1.73m2 Critically low >=60 [facility] Comment on above: Performed By: #### CMP, BNP ####[facility] Idxygudktd1142 [place] [address]Dr. Yuki Diaz Globulin (S) [Mass/Vol] 3.5 g/dL Normal [facility] Comment on above: Performed By: #### CMP, BNP ####[facility] Pdfqsmnjko0715 [place] [address]Dr. Yuki Diaz Glucose [Mass/Vol] 76 mg/dL Normal 74-106 [facility] Comment on above: Performed By: #### CMP, BNP ####[facility] Oluqiqwswo6817[address] [place], [place] [address]Dr. Yuki Diaz Potassium [Moles/Vol] 3.7 mmol/L Normal 3.5-5.1 [facility] Comment on above: Performed By: #### CMP, BNP ####[facility] Yapjayidpn157[address] [place], [place] [address]Dr. Yuki Diaz Protein [Mass/Vol] 6.4 g/dL Normal 6.4-8.2 [facility] Comment on above: Performed By: #### CMP, BNP ####[facility] Dqublstwck2559[address] [place], [place] [address]Dr. Yuki Diaz Sodium [Moles/Vol] 148 mmol/L Critically high 136-145 [facility] Comment on above: Performed By: #### CMP, BNP ####[facility] Wgdaeeggiz934[address] [place], [place] [address]Dr. Yuki Diaz Urea nitrogen [Mass/Vol] 35.0 mg/dL Critically high 7.0-18.0 [facility] Comment on above: Performed By: #### CMP, BNP ####[facility] Jlohmqrnth5618[address] [place], [place] [address]Dr. Yuki Diaz Urea nitrogen/Creatin ine [Mass ratio] 18.0 mg/mg Normal [facility] Comment on above: Performed By: #### CMP, BNP ####[facility] Skeahilzgp5870[address] [place], [place] [address]Dr. Yuki Diaz BNPon 12-30-2021 Natriuretic peptide B (Bld) [Mass/Vol] 4262.0 pg/mL Critically high <=1,800.0 [facility] Comment on above: Result Comment: repeated Performed By: #### C MP, BNP ####[facility] Orwrqhxgwa2233[address] [place], [place] [address]Dr. Yuki Diaz CBC AUTO DIFFon 12-30-2021 BASO # 0.0 103/ul Normal 0.0-0.1 [facility] Comment on above: Performed By: #### CBC ####[facility] Xoajilyoix2782 [place] [address]Dr. Yuki Diaz Basophils/100 WBC (Bld) 0.2 % Normal 0.2-2.0 [facility] Comment on above: Performed By: #### CBC ####[facility] ital Dryqvzzwtt684[address] [place], [place] [address]Dr. Yuki Diaz EO # 0.1 103/ul Normal 0.0-0.7 [facility] Comment on above: Performed By: #### CBC ####[facility] Dhjucekuaq5044[address] [place], [place] [address]Dr. Yuki Diaz Eosinophils/100 WBC (Bld) 1.3 % Normal 0.9-7.0 [facility] Comment on above: Performed By: #### CBC ####[facility] Eckbzsmltw9023[address] [place], [place] [address]Dr. Yuki Diaz Erythrocyte distribution width (RBC) [Ratio] 13.9 % Normal 11.0-15.0 [facility] Comment on above: Performed By: #### CBC ####[facility] Xxflugpkvz2501[address] [place], [place] [address]Dr. Yuki Diaz Hematocrit (Bld) [Volume fraction] 35.6 % Critically low 42.0-54.0 [facility] Comment on above: Performed By: #### CBC ####[facility] Loadtqjpie6587[address] [place], [place] [address]Dr. Yuki Diaz Hemoglobin (Bld) [Mass/Vol] 11.6 g/dL Critically low 14.0-18.0 [facility] Comment on above: Performed By: #### CBC ####[facility] Vnpkniftom307[address] [place], [place] [address]DrBebo Diaz IG # 0.02 10e3/ul Normal 0.00-0.03 [facility] Comment on above: Performed By: #### CBC ####[facility] Yctpybnnmq4250[address] [place], [place] [address]Dr. Yuki Diaz IG % 0.2 % Normal 0.0-0.5 [facility] Comment on above: Performed By: #### CBC ####[facility] Ctbncicphh2877 [place] [address]DrBebo Diaz LYMPH # 1.5 103/ul Normal 1.2-3.8 [facility] Comment on above: Performed By: #### CBC ####[facility] Lckydhpoqb4511 [place] [address]DrBebo Diaz Lymphocytes/100 WBC (Bld) 17.6 % Critically low 20.5-60.0 [facility] Comment on above: Performed By: #### CBC ####[facility] Vfditjlizl6656 [place] [address]DrBebo Diaz MANUAL DIFF REQ NO Normal [facility] Comment on above: Performed By: #### CBC ####[facility] Jxduptcmud6507 [place] [address]DrBebo Diaz MCH (RBC) [Entitic mass] 32.3 pg Normal 25.9-34.0 [facility] Comment on above: Performed By: #### CBC ####[facility] Ceavitvwqn7073 [place] [address]DrBebo Diaz MCHC (RBC) [Mass/Vol] 32.6 g/dL Normal 29.9-35.2 [facility] Comment on above: Performed By: #### CBC ####[facility] Rogdtmcthe2731 [place] [address]DrBebo Diaz MCV (RBC) [Entitic vol] 99.2 fL Critically high 80.0-94.0 [facility] Comment on above: Performed By: #### CBC ####[facility] Qirjmrhcdk3075 [place] [address]DrBebo Diaz MONO # 0.9 103/ul Critically high 0.3-0.8 [facility] Comment on above: Performed By: #### CBC ####[facility] Xxkdhgalef5779 [place] [address]DrBebo Diaz Monocytes/100 WBC (Bld) 10.9 % Normal 1.7-12.0 [facility] Comment on above: Performed By: #### CBC ####[facility] Jtqdebfvyy5983 [place] [address]DrBebo Yuki Diaz NEUT # 5.7 103/ul Normal 1.4-6.5 [facility] Comment on above: Performed By: #### CBC ####[facility] Cpdgdcmbze3929 [place] [address]DrBebo Yuki Diaz Neutrophils/100 WBC (Bld) 69.8 % Normal 43.0-75.0 [facility] Comment on above: Performed By: #### CBC ####[facility] Qjkhajrcuf5208 [place] [address]DrBebo Diaz Platelet mean volume (Bld) [Entitic vol] 10.3 fL Normal 9.5-13.5 [facility] Comment on above: Performed By: #### CBC ####[facility] Pycewptutd8284 [place] [address]Dr. Yuki Joe PLT 182 103/ul Normal 150-450 [facility] Comment on above: Performed By: #### CBC ####[facility] Ybcrxbwupd3563 [place] [address]DrBebo Diaz RBC 3.59 106/ul Critically low 4.70-6.10 [facility] Comment on above: Performed By: #### CBC ####[facility] Dbsrklkdlk1887 [place] [address]DrBebo Sheaalyssa Joe WBC 8.2 103/ul Normal 4.0-11.0 [facility] Comment on above: Performed By: #### CBC ####[facility] Twfzhdehjc7343 [place] [address]DrBebo Diaz POINT OF CARE GLUCOSEon 05-2 Glucose [Mass/Vol] 134 mg/dL Critically high 74-106 [facility] Comment on above: Performed By: #### POCGLUC ####[facility] Wjlxolfbgi4646 [place] [address]DrBebo Diaz PROF 14(COMP METB)on 022 Albumin [Mass/Vol] 2.9 g/dL Critically low 3.4-5.0 [facility] Comment on above: Performed By: #### CMP, BNP ####[facility] Eqzdusxgre3680 [place] [address]Dr. Yuki Diaz Albumin/Globulin [Mass ratio] 0.9 {ratio} Normal [facility] Comment on above: Performed By: #### CMP, BNP ####[facility] Pheeouoazb867186 [address] [place], [place] [address]Dr. Yuki Diaz ALP [Catalytic activity/Vol] 87 U/L Normal 46-116 [facility] Comment on above: Performed By: #### CMP, BNP ####[facility] Chzcaezqpo917486 [address] [place], [place] [address]Dr. Yuki Diaz ALT [Catalytic activity/Vol] 92 U/L Critically high 16-63 [facility] Comment on above: Performed By: #### CMP, BNP ####[facility] Eaxcyetxrs027486 [address] [place], [place] [address]Dr. Yuki Diaz Anion gap [Moles/Vol] 8.4 mmol/L Normal [facility] Comment on above: Performed By: #### CMP, BNP ####[facility] Gzwyyvzwqu909[address] [place], [place] [address]Dr. Yuki Diaz AST [Catalytic activity/Vol] 29 U/L Normal 15-37 [facility] Comment on above: Performed By: #### CMP, BNP ####[facility] Yjowgfpcqz238186 [address] [place], [place] [address]Dr. Yuki Diaz Bilirubin [Mass/Vol] 0.8 mg/dL Normal 0.2-1.0 [facility] Comment on above: Performed By: #### CMP, BNP ####[facility] Dvdjuqwunl139786 [address] [place], [place] [address]Dr. Yuki Diaz Calcium [Mass/Vol] 8.3 mg/dL Critically low 8.5-10.1 [facility] Comment on above: Performed By: #### CMP, BNP ####[facility] Mrqzcmaiqx683086 [address] [place], [place] [address]Dr. Yuki Diaz Chloride [Moles/Vol] 105 mmol/L Normal 98-107 [facility] Comment on above: Performed By: #### CMP, BNP ####[facility] Cxmncspoqh7233 [place] [address]Dr. Yuki Diaz CO2 [Moles/Vol] 34.1 mmol/L Critically high 21.0-32.0 [facility] Comment on above: Performed By: #### CMP, BNP ####[facility] Garikybzta7368 [place] [address]Dr. Yuki Diaz Creatinine [Mass/Vol] 1.98 mg/dL Critically high 0.70-1.30 [facility] Comment on above: Performed By: #### CMP, BNP ####[facility] Ytjtajzxpl678[address] [place], [place] [address]Dr. Yuki Diaz EGFR-AF UKRAINIAN 40 mL/min/1.73m2 Critically low >=60 [facility] Comment on above: Performed By: #### CMP, BNP ####[facility] Mfhryktrnr417186 [address] [place], [place] [address]Dr. Yuki Diaz EGFR-NON AF UKRAINIAN 33 mL/min/1.73m2 Critically low >=60 [facility] Comment on above: Performed By: #### CMP, BNP ####[facility] Ndpwcbkbkk836186 [address] [place], [place] [address]Dr. Yuki Diaz Globulin (S) [Mass/Vol] 3.4 g/dL Normal [facility] Comment on above: Performed By: #### CMP, BNP ####[facility] Sgbferelha7876 [place] [address]Dr. Yuki Diaz Glucose [Mass/Vol] 129 mg/dL Critically high 74-106 [facility] Comment on above: Performed By: #### CMP, BNP ####[facility] Kotlrdqbqx697786 [address] [place], [place] [address]Dr. Yuki Diaz Potassium [Moles/Vol] 3.5 mmol/L Normal 3.5-5.1 [facility] Comment on above: Performed By: #### CMP, BNP ####[facility] Yjhihvfcst154586 [address] [place], [place] [address]Dr. Monsealyssa Diaz Protein [Mass/Vol] 6.3 g/dL Critically low 6.4-8.2 [facility] Comment on above: Performed By: #### CMP, BNP ####[facility] Ujqulkhdun234086 [address] [place], [place] [address]Dr. Yuki Diaz Sodium [Moles/Vol] 144 mmol/L Normal 136-145 [facility] Comment on above: Performed By: #### CMP, BNP ####[facility] Kiarnwjpmy549[address] [place], [place] [address]Dr. Yuki Diaz Urea nitrogen [Mass/Vol] 37.0 mg/dL Critically high 7.0-18.0 [facility] Comment on above: Performed By: #### CMP, BNP ####[facility] Lotncrxvlp766486 [address] [place], [place] [address]Dr. Yuki Diaz Urea nitrogen/Creatin ine [Mass ratio] 18.7 mg/mg Normal [facility] Comment on above: Performed By: #### CMP, BNP ####[facility] Huvdutfygc047[address] [place], [place] [address]Dr. Yuki Joe BNPon 12-29-2021 Natriuretic peptide B (Bld) [Mass/Vol] 2335.0 pg/mL Critically high <=1,800.0 [facility] Comment on above: Result Comment: repeated Performed By: #### C MP, BNP ####[facility] Cslzdfwzuh8613[address] [place], [place] [address]Dr. Yuki Diaz CBC AUTO DIFFon 12-29-2021 BASO # 0.0 103/ul Normal 0.0-0.1 [facility] Comment on above: Performed By: #### CBC ####[facility] Jafdrwouvv0127[address] [place], [place] [address]Dr. Yuki Diaz Basophils/100 WBC (Bld) 0.3 % Normal 0.2-2.0 [facility] Comment on above: Performed By: #### CBC ####[facility] Xjioqerixu200786 [address] [place], [place] [address]Dr. Yuki Diaz EO # 0.1 103/ul Normal 0.0-0.7 [facility] Comment on above: Performed By: #### CBC ####[facility] Appgfwbmjx5090 [address] Yuki Diaz Eosinophils/100 WBC (Bld) 1.4 % Normal 0.9-7.0 [facility] Comment on above: Performed By: #### CBC ####[facility] Anmuuudhjh8239 [address] Yuki Diaz Erythrocyte distribution width (RBC) [Ratio] 14.2 % Normal 11.0-15.0 [facility] Comment on above: Performed By: #### CBC ####[facility] Kcaholbcwu[address] [place] [address]. Monsealyssa Diaz Hematocrit (Bld) [Volume fraction] 34.3 % Critically low 42.0-54.0 [facility] Comment on above: Performed By: #### CBC ####[facility] Igaiubvmgi911286 [address] [place], [place] [address]Dr. Monsealyssa Diaz Hemoglobin (Bld) [Mass/Vol] 11.0 g/dL Critically low 14.0-18.0 [facility] Comment on above: Performed By: #### CBC ####[facility] Bwpupatwwp[address] [place] [address]. Yuki Diaz IG # 0.03 10e3/ul Normal 0.00-0.03 [facility] Comment on above: Performed By: #### CBC ####[facility] Yudgcbkxvb4438[address] [place], [place] [address]Dr. Yuki Diaz IG % 0.4 % Normal 0.0-0.5 [facility] Comment on above: Performed By: #### CBC ####[facility] Pqiczehoyp9[address] [place] [address]. Yuki Diaz LYMPH # 1.3 103/ul Normal 1.2-3.8 [facility] Comment on above: Performed By: #### CBC ####[facility] Jjyydbckmw295[address] [place] [address]. Yuki Diaz Lymphocytes/100 WBC (Bld) 18.5 % Critically low 20.5-60.0 [facility] Comment on above: Performed By: #### CBC ####[facility] Uhkyjvuyuo2204 [place] [address]DrBebo Diaz MANUAL DIFF REQ NO Normal [facility] Comment on above: Performed By: #### CBC ####[facility] Ayrxbsviht4645 [place] [address]DrBebo Diaz MCH (RBC) [Entitic mass] 31.7 pg Normal 25.9-34.0 [facility] Comment on above: Performed By: #### CBC ####[facility] Rhdopmwzmj7290 [place] [address]DrBebo Diaz MCHC (RBC) [Mass/Vol] 32.1 g/dL Normal 29.9-35.2 [facility] Comment on above: Performed By: #### CBC ####[facility] Vbgdvufqss6068 [place] [address]DrBebo Diaz MCV (RBC) [Entitic vol] 98.8 fL Critically high 80.0-94.0 [facility] Comment on above: Performed By: #### CBC ####[facility] Ibqrhguytp139186 [address] [place], [place] [address]DrBebo Diaz MONO # 0.7 103/ul Normal 0.3-0.8 [facility] Comment on above: Performed By: #### CBC ####[facility] Tbrbnqjwtg8343 [place] [address]DrBebo Diaz Monocytes/100 WBC (Bld) 10.6 % Normal 1.7-12.0 [facility] Comment on above: Performed By: #### CBC ####[facility] Lhskittnoq0277 [place] [address]DrBebo Diaz NEUT # 4.8 103/ul Normal 1.4-6.5 [facility] Comment on above: Performed By: #### CBC ####[facility] Hyjazzstuc269186 [address] [place], [place] [address]DrBebo Diaz Neutrophils/100 WBC (Bld) 68.8 % Normal 43.0-75.0 [facility] Comment on above: Performed By: #### CBC ####[facility] Gqzphbrjiw5539 [place] [address]Dr. Yuki Diaz Platelet mean volume (Bld) [Entitic vol] 10.5 fL Normal 9.5-13.5 [facility] Comment on above: Performed By: #### CBC ####[facility] Zsnnvybpdw576186 [address] [place], [place] [address]Dr. Yuki Diaz PLT 183 103/ul Normal 150-450 [facility] Comment on above: Performed By: #### CBC ####[facility] Kqnqzmzsob636[address] [place], [place] [address]Dr. Monsealyssa Diaz RBC 3.47 106/ul Critically low 4.70-6.10 [facility] Comment on above: Performed By: #### CBC ####[facility] Uaemtxsxua197986 [address] [place], [place] [address]Dr. Monsealsysa Joe WBC 7.0 103/ul Normal 4.0-11.0 [facility] Comment on above: Performed By: #### CBC ####[facility] Zhaoidssaw4239[address] [place], [place] [address]Dr. Yuki Diaz CULTURE URINEon 12-29-2021 CULTURE URINE Culture Observations : NO GROWTH. Normal [facility] Comment on above: Performed By: #### URCX ####[facility] pital Kgplevficp9405[address] [place], [place] [address]Dr. Monsealyssa Joe ECHO LIMITED STUDYon 022 ECHO LIMITED STUDY Normal [facility] POINT OF CARE GLUCOSEon 12-06 Glucose [Mass/Vol] 143 mg/dL Critically high 74-106 [facility] Comment on above: Performed By: #### POCGLUC ####[facility] Khxgepgfbb5585[address] [place], [place] [address]Dr. Monsealyssa Joe Glucose [Mass/Vol] 141 mg/dL Critically high 74-106 [facility] Comment on above: Performed By: #### POCGLUC ####[facility] Jlfslofggg40[address] [place], [place] [id number]. Yuki Diaz Glucose [Mass/Vol] 190 mg/dL Critically high 74-106 [facility] Comment on above: Performed By: #### POCGLUC ####[facility] Pbgiijuwkx2535[address] [place], [place] [address]Dr. Yuki Diaz PROF 14(COMP METB)on 022 Albumin [Mass/Vol] 2.5 g/dL Critically low 3.4-5.0 [facility] Comment on above: Performed By: #### CMP, BNP ####[facility] Ezienndsui2301[address] [place], [place] [address]Dr. Yuki Diaz Albumin/Globulin [Mass ratio] 0.8 {ratio} Normal [facility] Comment on above: Performed By: #### CMP, BNP ####[facility] Nyifuowubz718986 [address] [place], [place] [address]Dr. Yuki Diaz ALP [Catalytic activity/Vol] 77 U/L Normal 46-116 [facility] Comment on above: Performed By: #### CMP, BNP ####[facility] Yrrypkwfwn156[address] [place], [place] [address]Dr. Yuki Diaz ALT [Catalytic activity/Vol] 103 U/L Critically high 16-63 [facility] Comment on above: Performed By: #### CMP, BNP ####[facility] Hqmobhijnm4480[address] [place], [place] [address]Dr. Yuki Diaz Anion gap [Moles/Vol] 12.3 mmol/L Normal [facility] [facility] Comment on above: Performed By: #### CMP, BNP ####[facility] Dvcnvzhszl[address] [place], [place] [address]Dr. Yuki Diaz AST [Catalytic activity/Vol] 41 U/L Critically high 15-37 [facility] Comment on above: Performed By: #### CMP, BNP ####[facility] Jniovwfttg996[address] [place], [place] [address]Dr. Yuki Diaz Bilirubin [Mass/Vol] 0.7 mg/dL Normal 0.2-1.0 [facility] Comment on above: Performed By: #### CMP, BNP ####[facility] Zuotmisnpe[address] [place] [address]Dr. Yuki Diaz Calcium [Mass/Vol] 8.2 mg/dL Critically low 8.5-10.1 [facility] Comment on above: Performed By: #### CMP, BNP ####[facility] Syoktlhate[address] [place], [place] [address]Dr. Yuki Diaz Chloride [Moles/Vol] 108 mmol/L Critically high 98-107 [facility] Comment on above: Performed By: #### CMP, BNP ####[facility] Tqkfshajyq94[address] [place], [place] [address]Dr. Yuki Diaz CO2 [Moles/Vol] 28.4 mmol/L Normal 21.0-32.0 [facility] Comment on above: Performed By: #### CMP, BNP ####[facility] Gzdqvndoem006[address] [place], [place] [address]Dr. Yuki Diaz Creatinine [Mass/Vol] 1.74 mg/dL Critically high 0.70-1.30 [facility] Comment on above: Performed By: #### CMP, BNP ####[facility] Gmwhykcjxt680[address] [place], [place] [address]Dr. Yuki Diaz EGFR-AF UKRAINIAN 46 mL/min/1.73m2 Critically low >=60 [facility] Comment on above: Performed By: #### CMP, BNP ####[facility] Wogcxbajjm648[address] [place], [place] [address]Dr. Yuki Diaz EGFR-NON AF UKRAINIAN 38 mL/min/1.73m2 Critically low >=60 [facility] Comment on above: Performed By: #### CMP, BNP ####[facility] Rsseiqcnld6775[address] [place], [place] [address]Dr. Yuki Diaz Globulin (S) [Mass/Vol] 3.1 g/dL Normal [facility] Comment on above: Performed By: #### CMP, BNP ####[facility] Dpvtbflbud466786 [address] [place], [place] [address]Dr. Yuki Diaz Glucose [Mass/Vol] 103 mg/dL Normal 74-106 [facility] Comment on above: Performed By: #### CMP, BNP ####[facility] Zfvchwgfjw2782 [place] [address]Dr. Yuki Diaz Potassium [Moles/Vol] 3.7 mmol/L Normal 3.5-5.1 [facility] Comment on above: Performed By: #### CMP, BNP ####[facility] Xnfdhboczy4824 [place] [address]Dr. Yuki Diaz Protein [Mass/Vol] 5.6 g/dL Critically low 6.4-8.2 [facility] Comment on above: Performed By: #### CMP, BNP ####[facility] Kkcwpvoeni595[address] [place], [place] [address]Dr. Yuki Diaz Sodium [Moles/Vol] 145 mmol/L Normal 136-145 [facility] Comment on above: Performed By: #### CMP, BNP ####[facility] Fxgzkgewgu057186 [address] [place], [place] [address]Dr. Yuki Diaz Urea nitrogen [Mass/Vol] 33.0 mg/dL Critically high 7.0-18.0 [facility] Comment on above: Performed By: #### CMP, BNP ####[facility] Zxaaeiexdx8697[address] [place], [place] [address]Dr. Yuki Diaz Urea nitrogen/Creatin ine [Mass ratio] 19.0 mg/mg Normal [facility] Comment on above: Performed By: #### CMP, BNP ####[facility] Wywcbbqmdg0535[address] [place], [place] [address]Dr. Yuki Diaz BNPon 12-28-2021 Natriuretic peptide B (Bld) [Mass/Vol] 1699.0 pg/mL Normal <=1,800.0 [facility] Comment on above: Performed By: #### TSH, BNP, CMP ####[facility] Uytwqyerpu1133[address] [place], [place] [address]Dr. Yuki Diaz CARDIAC RACHEL 3-6on 2 CK [Catalytic activity/Vol] 93 U/L Normal 39-308 [facility] Comment on above: Performed By: #### CMREP ####[facility] Cimeqfxzbt8212[address] [place], [place] [address]Dr. Yuki Diaz CK.MB [Mass/Vol] 2.99 ng/mL Normal <=3.60 [facility] Comment on above: Performed By: #### CMREP ####[facility] Yyveaphbrp3818 [place] [address]Dr. Yuki Diaz HSTROP 30.7 pg/mL Normal 4.0-76.1 [facility] Comment on above: Result Comment: CUT-OFF POINTS HAVE BEEN ESTABLISHED BASED ON THE FOURTH UNIVERSAL DEFINITIONS OF MYOCARDIALINFARCTION. THE UPPER REFERENCE LIMIT (URL) OF TROPONIN, DEFINED THE 99TH PERCENTILE OFcTnI DISTRIBUTION IN A REFERENCE POPULATION, HAS BEEN CONFIRMED THE DECISION THRESHOLDFOR AR DIAGNOSIS. Performed By: #### C MREP ####[facility] Haotogibnj[address] [place] [address]Dr. Yuki Joe CK [Catalytic activity/Vol] 107 U/L Normal 39-308 [facility] Comment on above: Performed By: #### CMREP ####[facility] Wstkqyobmx554[address] [place], [place] [address]Dr. Yuki Joe CK.MB [Mass/Vol] 3.26 ng/mL Normal <=3.60 [facility] Comment on above: Performed By: #### CMREP ####[facility] Dyvtyzclxx297[address] [place], [place] [address]Dr. Yuki Diaz HSTROP 27.1 pg/mL Normal 4.0-76.1 [facility] Comment on above: Result Comment: CUT-OFF POINTS HAVE BEEN ESTABLISHED BASED ON THE [facility] UNIVERSAL DEFINITIONS OF MYOCARDIALINFARCTION. THE UPPER REFERENCE LIMIT (URL) OF TROPONIN, DEFINED THE 99TH PERCENTILE OFcTnI DISTRIBUTION IN A REFERENCE POPULATION, HAS BEEN CONFIRMED THE DECISION THRESHOLDFOR AR DIAGNOSIS. Performed By: #### C MREP ####[facility] Iasqfamoqz7607 [place] [address]Dr. Yuki Diaz CARDIAC RACHEL ADMITon 022 CK [Catalytic activity/Vol] 101 U/L Normal 39-308 [facility] Comment on above: Performed By: #### CMADM ####[facility] Qyyeaurloc8492 [place] [address]Dr. Yuki Diaz CK.MB [Mass/Vol] 3.35 ng/mL Normal <=3.60 [facility] Comment on above: Performed By: #### CMADM ####[facility] Gstdyilcvg8487 [address] Yuki Diaz HSTROP 27.6 pg/mL Normal 4.0-76.1 [facility] Comment on above: Result Comment: CUT-OFF POINTS HAVE BEEN ESTABLISHED BASED ON THE FOURTH UNIVERSAL DEFINITIONS OF MYOCARDIALINFARCTION. THE UPPER REFERENCE LIMIT (URL) OF TROPONIN, DEFINED THE 99TH PERCENTILE OFcTnI DISTRIBUTION IN A REFERENCE POPULATION, HAS BEEN CONFIRMED THE DECISION THRESHOLDFOR AR DIAGNOSIS. Performed By: #### C MADM ####[facility] Sdutmhxj[address] [place] [address]. Yuki Diaz DILSHAD 153 ng/mL Critically high 16-96 [facility] Comment on above: Performed By: #### CMADM ####[facility] Yygvbpjfqn0112[address] [place], [place] [address]Dr. Yuki Diaz CBC AUTO DIFFon 12-28-2021 BASO # 0.0 103/ul Normal 0.0-0.1 [facility] Comment on above: Performed By: #### CBC ####[facility] Mfhesyufgs[address] [place] [address]. Yuki Diaz Basophils/100 WBC (Bld) 0.1 % Critically low 0.2-2.0 [facility] Comment on above: Performed By: #### CBC ####[facility] Kufjbgxlbr[address]15 [address] Yuki Diaz EO # 0.1 103/ul Normal 0.0-0.7 [facility] Comment on above: Performed By: #### CBC ####[facility] Ghuhjosawz42[address] [place], [place] [address]Dr. Yuki Diaz Eosinophils/100 WBC (Bld) 0.8 % Critically low 0.9-7.0 [facility] Comment on above: Performed By: #### CBC ####[facility] Uskompwyjg4380[address] [place], [place] [address]Dr. Yuki Diaz Erythrocyte distribution width (RBC) [Ratio] 14.2 % Normal 11.0-15.0 [facility] Comment on above: Performed By: #### CBC ####[facility] Jskrjkzqcc3873 [place] [address]Dr. Yuki Diaz Hematocrit (Bld) [Volume fraction] 38.5 % Critically low 42.0-54.0 [facility] Comment on above: Performed By: #### CBC ####[facility] Wkkrmdsvjp6648 [place] [address]Dr. Yuki Diaz Hemoglobin (Bld) [Mass/Vol] 12.3 g/dL Critically low 14.0-18.0 [facility] Comment on above: Performed By: #### CBC ####[facility] Lsolitwipk5615 [place] [address]Dr. Yuki Diaz IG # 0.06 10e3/ul Critically high 0.00-0.03 [facility] Comment on above: Performed By: #### CBC ####[facility] Dqdakclbty05[address] [place], [place] [address]Dr. Yuki Diaz IG % 0.7 % Critically high 0.0-0.5 [facility] Comment on above: Performed By: #### CBC ####[facility] Psuyhqjwve9640 [place] [address]Dr. Yuki Diaz LYMPH # 1.0 103/ul Critically low 1.2-3.8 [facility] Comment on above: Performed By: #### CBC ####[facility] Bcdimsufbb3448 [place] [address]Dr. Yuki Diaz Lymphocytes/100 WBC (Bld) 10.7 % Critically low 20.5-60.0 [facility] Comment on above: Performed By: #### CBC ####[facility] Cdizbbmdzx7255[address] [place], [place] [address]Dr. Yuki Diaz MANUAL DIFF REQ NO Normal [facility] Comment on above: Performed By: #### CBC ####[facility] Bhhflzsmyy4075 [place] [address]Dr. Yuki Diaz MCH (RBC) [Entitic mass] 31.9 pg Normal 25.9-34.0 [facility] Comment on above: Performed By: #### CBC ####[facility] Kqdbpjxaxh2660 [place] [address]Dr. Yuki Diaz MCHC (RBC) [Mass/Vol] 31.9 g/dL Normal 29.9-35.2 [facility] Comment on above: Performed By: #### CBC ####[facility] Cnkbbgipvu2735 [place] [address]Dr. Yuki Diaz MCV (RBC) [Entitic vol] 99.7 fL Critically high 80.0-94.0 [facility] Comment on above: Performed By: #### CBC ####[facility] Izzyyagbln9320 [place] [address]Dr. Yuki Diaz MONO # 0.7 103/ul Normal 0.3-0.8 [facility] Comment on above: Performed By: #### CBC ####[facility] Axmzokxwog6298 [place] [address]Dr. Yuki Diaz Monocytes/100 WBC (Bld) 7.2 % Normal 1.7-12.0 [facility] Comment on above: Performed By: #### CBC ####[facility] Ksyjtbbirm6170 [place] [address]Dr. Yuki Diaz NEUT # 7.4 103/ul Critically high 1.4-6.5 [facility] Comment on above: Performed By: #### CBC ####[facility] Ffnbnvuofc5140 [place] [address]Dr. Yuki Diaz Neutrophils/100 WBC (Bld) 80.5 % Critically high 43.0-75.0 [facility] Comment on above: Performed By: #### CBC ####[facility] Siykphywha6471 [place] [address]Dr. Yuki Diaz Platelet mean volume (Bld) [Entitic vol] 10.0 fL Normal 9.5-13.5 [facility] Comment on above: Performed By: #### CBC ####[facility] Mebvfmcwqr9229 [place], [place] [address]Um. Yuki Diaz PLT 194 103/ul Normal 150-450 [facility] Comment on above: Performed By: #### CBC ####[facility] Zcxauhfbzq0782 [place], [place] [address]Ma. Yuki Diaz RBC 3.86 106/ul Critically low 4.70-6.10 [facility] Comment on above: Performed By: #### CBC ####[facility] Snhgrmbihm7117 [place], [place] [address]Sj. Yuki Diaz WBC 9.2 103/ul Normal 4.0-11.0 [facility] Comment on above: Performed By: #### CBC ####[facility] Hnbntwckie7168 [place], [place] [address]Ee. Yuki Diaz Covid-19 PCR (CVDTB)on 12-06 SARS-CoV-2 (COVID-19) RNA JARVIS+probe Ql (Unsp spec) Not detected Normal NOT DETECTED [facility] Comment on above: Result Comment: When diagnostic testing is negative, the possibility of a false negative should be considered inthe context of a patient's recent exposures and the presence of clinical signs and symptomsconsistent with SARS-CoV-2.This test is not yet approved or cleared by the [place] Food and Drug Administration (FDA).This test was developed by [employer], [place], [place]. The performance characteristics ofthis test were validated by [facility]. The results are not intended to beused as the sole means for clinical diagnosis or patient management decisions. The [facility] is authorized under Clinical Laboratory Improvement Amendments (CLIA) to perform high-complexity testing.This test is not yet approved or cleared by the [place] FDA. When there are no FDA-approved or cleared tests available, and other criteria are met, FDA can make tests available under an emergency access mechanism called an Emergency Use Authorization (EUA). The EUA for this test is supported by the [place] of Health and Human Service's declaration that [...] be used). Performed By: #### C VDTB ####[facility] Xgcxpjjqtz2885 [place] [address]Dr. Yuki Diaz ER URINE PROFILEon 2 Bilirubin Ql (U) Negative Normal NEGATIVE [facility] Comment on above: Performed By: #### ERUR ####[facility] Qxnpupgnwd0744 [place] [address]Dr. Monsealyssa Diaz Clarity (U) CLEAR Normal CLEAR [facility] Comment on above: Performed By: #### ERUR ####[facility] pital Yeocqkdgpj5469 [place] [address]Dr. Monsealyssa Diaz Color (U) YELLOW Normal YELLOW [facility] Comment on above: Performed By: #### ERUR ####[facility] p[facility] Fiohqsxedl9357 [place] [address]Dr. Yuki Diaz ERUAHD A micrscopic examina tion will be performed if indicated. Normal [facility] Comment on above: Performed By: #### ERUR ####[facility] Hdxjprgtlf9491 [place] [address]Dr. Monsealyssa Diaz Glucose Ql (U) Negative Normal NEGATIVE [facility] Comment on above: Performed By: #### ERUR ####[facility] p[facility] Dkvogcsntt1863 [place] [address]Dr. Monsealyssa Diaz Hemoglobin Ql (U) Negative Normal NEGATIVE [facility] Comment on above: Performed By: #### ERUR ####[facility] Ysovbrdehi9535 [place] [address]Dr. Monsealyssa Diaz Ketones Ql (U) Negative Normal NEGATIVE [facility] Comment on above: Performed By: #### ERUR ####[facility] Druhqpopfs3797 [place] [address]Dr. Yuki Diaz LEUKOCYTES Negative Normal NEGATIVE [facility] Comment on above: Performed By: #### ERUR ####[facility] Tpwqizhjrg4279 [place] [address]Dr. Yuki Diaz Nitrite Ql (U) Negative Normal NEGATIVE [facility] Comment on above: Performed By: #### ERUR ####[facility] Ucmjwkauor2454 [place] [address]Dr. Yuki Diaz pH (U) 5.5 [pH] Normal 5-9 [facility] Comment on above: Performed By: #### ERUR ####[facility] p[facility] Ubtdhcdriv1008 [place] [address]Dr. Yuki Diaz Protein (U) [Mass/Vol] 100 mg/dL Abnormal NEGATIVE/ TRACE [facility] Comment on above: Performed By: #### ERUR ####[facility] p[facility] Zajmymzgfp9257 [place] [address]Dr. Yuki Diaz SPEC GRAVITY >=1.030 Abnormal 1.005-<=1. 025 [facility] Comment on above: Performed By: #### ERUR ####[facility] p[facility] Viwyfblwxx9644 [place] [address]Dr. Yuki Diaz UR MICRO IND NOT INDICATED Normal [facility] Comment on above: Performed By: #### ERUR ####[facility] p[facility] Tdtsbrrkzv9728 [place] [address]Dr. Yuki Diaz Urobilinogen Qn (U) 0.2 {Chidi'U}/dL Normal 0.2 - 1.0 [facility] Comment on above: Performed By: #### ERUR ####[facility] p[facility] Wnuxzubskh6350 [place] [address]Dr. Yuki Diaz LACTATE/LACTIC ACIDon 2021 Lactate [Moles/Vol] 2.2 mmol/L Critically high 0.4-1.9 [facility] Comment on above: Performed By: #### LACT ####[facility] p[facility] Zgytjeapen3789 [place] [address]Dr. Yuki Diaz POINT OF CARE GLUCOSEon 12-06 Glucose [Mass/Vol] 183 mg/dL Critically high 74-106 [facility] Comment on above: Performed By: #### POCGLUC ####[facility] Qnfasmwncl7958 [place] [address]Dr. Yuki Diaz Glucose [Mass/Vol] 167 mg/dL Critically high 74-106 [facility] Comment on above: Performed By: #### POCGLUC ####[facility] Shrmudbvgf3821 [place] [address]Dr. Yuki Diaz PROF 14(COMP METB)on 022 Albumin [Mass/Vol] 2.9 g/dL Critically low 3.4-5.0 [facility] Comment on above: Performed By: #### TSH, BNP, CMP ####[facility] Wcmxitelut0732 [place] [address]Dr. Yuki Diaz Albumin/Globulin [Mass ratio] 0.9 {ratio} Normal [facility] Comment on above: Performed By: #### TSH, BNP, CMP ####[facility] Edpfodmstn2189[address] [place], [place] [address]Dr. Yuki Diaz ALP [Catalytic activity/Vol] 83 U/L Normal 46-116 [facility] Comment on above: Performed By: #### TSH, BNP, CMP ####[facility] Gyspjfqzyf09[address] [place], [place] [address]Dr. Yuki Diaz ALT [Catalytic activity/Vol] 98 U/L Critically high 16-63 [facility] Comment on above: Performed By: #### TSH, BNP, CMP ####[facility] Gwpjdnkqeq6044 [place] [address]Dr. Yuki Diaz Anion gap [Moles/Vol] 11.6 mmol/L Normal [facility] Comment on above: Performed By: #### TSH, BNP, CMP ####[facility] Xtzphlegqi6687 [place] [address]Dr. Yuki Diaz AST [Catalytic activity/Vol] 51 U/L Critically high 15-37 [facility] Comment on above: Performed By: #### TSH, BNP, CMP ####[facility] Knqviqbmja9087 [place] [address]Dr. Yuki Diaz Bilirubin [Mass/Vol] 0.9 mg/dL Normal 0.2-1.0 [facility] Comment on above: Performed By: #### TSH, BNP, CMP ####[facility] Barzeteykq05[address] [place], [place] [address]Dr. Yuki Diaz Calcium [Mass/Vol] 8.3 mg/dL Critically low 8.5-10.1 [facility] Comment on above: Performed By: #### TSH, BNP, CMP ####[facility] Urvgzvenik176[address] [place], [place] [address]Dr. Yuki Diaz Chloride [Moles/Vol] 106 mmol/L Normal 98-107 [facility] Comment on above: Performed By: #### TSH, BNP, CMP ####[facility] Digbmeqidy0138[address] [place], [place] [address]Dr. Yuki Diaz CO2 [Moles/Vol] 28.2 mmol/L Normal 21.0-32.0 [facility] Comment on above: Performed By: #### TSH, BNP, CMP ####[facility] Jglcvmwzyq429[address] [place], [place] [address]Dr. Yuki Diaz Creatinine [Mass/Vol] 1.84 mg/dL Critically high 0.70-1.30 [facility] Comment on above: Performed By: #### TSH, BNP, CMP ####[facility] Euakojzgzc065[address] [place], [place] [address]Dr. Yuki Diaz EGFR-AF UKRAINIAN 43 mL/min/1.73m2 Critically low >=60 [facility] Comment on above: Performed By: #### TSH, BNP, CMP ####[facility] Nchxjoiphx9157[address] [place], [place] [address]Dr. Yuki Diaz EGFR-NON AF UKRAINIAN 36 mL/min/1.73m2 Critically low >=60 [facility] Comment on above: Performed By: #### TSH, BNP, CMP ####[facility] Zwupemlidz577[address] [place], [place] [address]Dr. Yuki Diaz Globulin (S) [Mass/Vol] 3.3 g/dL Normal [facility] Comment on above: Performed By: #### TSH, BNP, CMP ####[facility] Qqrjipinwc7425 [place] [address]Dr. Yuki Diaz Glucose [Mass/Vol] 202 mg/dL Critically high 74-106 [facility] Comment on above: Performed By: #### TSH, BNP, CMP ####[facility] Kyfnpuqsqa4198 [place] [address]Dr. Yuki Diaz Potassium [Moles/Vol] 3.8 mmol/L Normal 3.5-5.1 [facility] Comment on above: Performed By: #### TSH, BNP, CMP ####[facility] Dldqhmyamv7201[address] [place], [place] [address]Dr. Yuki Diaz Protein [Mass/Vol] 6.2 g/dL Critically low 6.4-8.2 [facility] Comment on above: Performed By: #### TSH, BNP, CMP ####[facility] Fyasgjbimv67[address] [place], [place] [address]Dr. Yuki Diaz Sodium [Moles/Vol] 142 mmol/L Normal 136-145 [facility] Comment on above: Performed By: #### TSH, BNP, CMP ####[facility] Mwqfkncxbk145[address] [place], [place] [address]Dr. Yuki Diaz Urea nitrogen [Mass/Vol] 28.0 mg/dL Critically high 7.0-18.0 [facility] Comment on above: Performed By: #### TSH, BNP, CMP ####[facility] Gjqffzktyh95[address] [place], [place] [address]Dr. Yuki Diaz Urea nitrogen/Creatin ine [Mass ratio] 15.2 mg/mg Normal [facility] Comment on above: Performed By: #### TSH, BNP, CMP ####[facility] Vsbdflyjsb468[address] [place], [place] [address]Dr. Yuki Diaz TSHon 12-28-2021 TSH 1.808 uIU/mL Normal 0.358-3.74 0 [facility] Comment on above: Performed By: #### TSH, BNP, CMP ####[facility] Mxxhyxkyvo750[address] [place], [place] [address]Dr. Yuki Diaz TSH RANGE SEE BELOW Normal [facility] Comment on above: Result Comment: <0.34 UIU/ml HYPERTHYROI D 0.34-5.60 UIU/ml EUTHYROID >5.60 UIU/ml HYPOTHYROID Performed By: #### T SH, BNP, CMP ####[facility] Bqhwknnxoi8385 [place] [address]Dr. Yuki Diaz XR CHEST 1 Von 12-28-2021 XR CHEST 1 V Normal [facility] BNPon 12-22-2021 Natriuretic peptide B (Bld) [Mass/Vol] 2907.0 pg/mL Critically high <=1,800.0 [facility] Comment on above: Performed By: #### BNP ####[facility] Mplclkpyvf1325 [place] [address]Dr. Yuki Diaz PROF 14(COMP METB)on 022 Albumin [Mass/Vol] 3.0 g/dL Critically low 3.4-5.0 [facility] Comment on above: Performed By: #### CMP ####[facility] Eslvlucqqu4984 [place] [address]Dr. Yuki Diaz Albumin/Globulin [Mass ratio] 0.9 {ratio} Normal [facility] Comment on above: Performed By: #### CMP ####[facility] Tnuztlugnr2997 [place] [address]Dr. Yuki Diaz ALP [Catalytic activity/Vol] 94 U/L Normal 46-116 [facility] Comment on above: Performed By: #### CMP ####[facility] Xjjvapsoty9806 [place] [address]Dr. Yuki Diaz ALT [Catalytic activity/Vol] 39 U/L Normal 16-63 [facility] Comment on above: Performed By: #### CMP ####[facility] Ykmikbbgia6700 [place] [address]Dr. Yuki Diaz Anion gap [Moles/Vol] 13.4 mmol/L Normal [facility] Comment on above: Performed By: #### CMP ####[facility] Wmjrkgytlf7735 [place] [address]Dr. Yuki Diaz AST [Catalytic activity/Vol] 11 U/L Critically low 15-37 [facility] Comment on above: Performed By: #### CMP ####[facility] Bmojwsbbgg5973 [place] [id number]. Yuki Diaz Bilirubin [Mass/Vol] 0.5 mg/dL Normal 0.2-1.0 [facility] Comment on above: Performed By: #### CMP ####[facility] Pwpurqrikc8228 [place] [address]Dr. Yuki Diaz Calcium [Mass/Vol] 8.5 mg/dL Normal 8.5-10.1 [facility] Comment on above: Performed By: #### CMP ####[facility] Wmbssflvwx0622 [place] [address]Dr. Yuki Joe Chloride [Moles/Vol] 110 mmol/L Critically high 98-107 [facility] Comment on above: Performed By: #### CMP ####[facility] Wsiowhpdgn6401 [place] [address]Dr. Yuki Joe CO2 [Moles/Vol] 26.1 mmol/L Normal 21.0-32.0 [facility] Comment on above: Performed By: #### CMP ####[facility] Nqnvkzwkfu4648 [place] [address]Dr. Yuki Joe Creatinine [Mass/Vol] 1.71 mg/dL Critically high 0.70-1.30 [facility] Comment on above: Performed By: #### CMP ####[facility] Mtktsmrawz6279 [place] [address]Dr. Yuki Joe EGFR-AF UKRAINIAN 47 mL/min/1.73m2 Critically low >=60 [facility] Comment on above: Performed By: #### CMP ####[facility] Qnphyhfptj1741 [place] [id number]. Monsealyssa Joe EGFR-NON AF UKRAINIAN 39 mL/min/1.73m2 Critically low >=60 [facility] Comment on above: Performed By: #### CMP ####[facility] Alkkrdnttx2039 [place] [id number]. Yuki Joe Globulin (S) [Mass/Vol] 3.4 g/dL Normal [facility] Comment on above: Performed By: #### CMP ####[facility] Uwugvcxdxz1105 [place] [address]Dr. Yuki Diaz Glucose [Mass/Vol] 211 mg/dL Critically high 74-106 [facility] Comment on above: Performed By: #### CMP ####[facility] Iwbmjwrehy5013 [place] [address]Dr. Yuki Diaz Potassium [Moles/Vol] 4.5 mmol/L Normal 3.5-5.1 [facility] Comment on above: Performed By: #### CMP ####[facility] Eqntyunwom3752 [place] [address]Dr. Yuki Diaz Protein [Mass/Vol] 6.4 g/dL Normal 6.4-8.2 [facility] Comment on above: Performed By: #### CMP ####[facility] Fysfckketq3776 [place] [address]Dr. Yuki Diaz Sodium [Moles/Vol] 145 mmol/L Normal 136-145 [facility] Comment on above: Performed By: #### CMP ####[facility] Resodbynre4664 [place] [address]Dr. Yuki Diaz Urea nitrogen [Mass/Vol] 33.0 mg/dL Critically high 7.0-18.0 [facility] Comment on above: Performed By: #### CMP ####[facility] Nxivstjoem8421 [place] [address]Dr. Yuki Diaz Urea nitrogen/Creatin ine [Mass ratio] 19.3 mg/mg Normal [facility] Comment on above: Performed By: #### CMP ####[facility] [id number] [place] [address]Dr. Yuki Joe Lab Reportson 12-15-2021 Lab Reports [id number] Normal [facility] BASIC METABOLIC PANELon 08-0 Calcium mass conc 9.1 mg/dL Normal 8.6-10.3 [facility] Comment on above: Order Comment: No: Do not add to previou s draw Performed By: #### 5 0103 ####[facility] [place] [address], [facility] Chloride molar conc 104 mmol/L Normal 98-107 [facility] Comment on above: Order Comment: No: Do not add to previou s draw Performed By: #### 5 0103 ####[facility] [place] [address], [place] CO2 molar conc 27 mmol/L Normal 21-31 [facility] Comment on above: Order Comment: No: Do not add to previou s draw Performed By: #### 5 0103 ####[facility] [place] [address], [place] Creatinine mass conc 1.29 mg/dL Normal 0.70-1.30 [facility] Comment on above: Order Comment: No: Do not add to previou s draw Performed By: #### 5 0103 ####[facility] [place] [address], [place] GFR/1.73 sq M predicted among blacks MDRD vol rate/area (S/P/Bld) mL/min/{1.73_m2} Normal >60 [facility] Comment on above: Order Comment: No: Do not add to previou s draw Result Comment: Calc ulation may not be valid for patients over 70 years Performed By: #### 5 0103 ####[facility] [place] [address], [place] GFR/1.73 sq M predicted among non-blacks MDRD vol rate/area (S/P/Bld) 54 ml/min/1.73sq m Abnormal >60 [facility] Comment on above: Order Comment: No: Do not add to previou s draw Result Comment: Calc ulation may not be valid for patients over 70 years Performed By: #### 5 0103 ####[facility] [place] [address], [facility] Glucose mass conc 109 mg/dL High 70-100 [facility] Comment on above: Order Comment: No: Do not add to previou s draw Performed By: #### 5 0103 ####[facility] [place] [address], [facility] Potassium molar conc 3.6 mmol/L Normal 3.5-5.1 [facility] Comment on above: Order Comment: No: Do not add to previou s draw Performed By: #### 5 0103 ####[facility] [place] [address], [facility] Sodium molar conc 139 mmol/L Normal 136-145 [facility] Comment on above: Order Comment: No: Do not add to previou s draw Performed By: #### 5 0103 ####[facility] [place] [address], [facility] Urea nitrogen mass conc 19 mg/dL Normal 7-25 [facility] Comment on above: Order Comment: No: Do not add to previou s draw Performed By: #### 5 0103 ####[facility] CBC COMPLETE BLOOD COUNTon 0 - Erythrocyte distribution width Auto Ratio (RBC) 13.2 % Normal 11.5-15.0 [facility] Comment on above: Order Comment: No: Do not add to previou s draw Performed By: #### 5 0103 ####[facility] [place] [address], [facility] Hematocrit Auto Volume Fraction (Bld) 42.2 % Normal 39.0-50.0 [facility] Comment on above: Order Comment: No: Do not add to previou s draw Performed By: #### 5 0103 ####[facility] Hemoglobin mass conc (Bld) 13.9 g/dL Normal 13.0-17.0 [facility] Comment on above: Order Comment: No: Do not add to previou s draw Performed By: #### 5 0103 ####[facility] MCH Auto Entitic mass (RBC) 29.7 pg Normal 27.0-33.0 [facility] Comment on above: Order Comment: No: Do not add to previou s draw Performed By: #### 5 0103 ####[facility].[address] MCHC Auto mass conc (RBC) 32.9 g/dL Normal 32.0-35.0 [facility] Comment on above: Order Comment: No: Do not add to previou s draw Performed By: #### 5 0103 ####[facility].[address] MCV Auto Entitic volume (RBC) 90.2 fL Normal 82.0-98.0 [facility] Comment on above: Order Comment: No: Do not add to previou s draw Performed By: #### 5 0103 ####[facility].[address] Nucleated RBC/100 WBC Ratio (Bld) 0 % Normal 0-0 [facility] Comment on above: Order Comment: No: Do not add to previou s draw Performed By: #### 5 0103 ####[facility] [place] [address], [facility] PLAT CNT 226 10*3/uL Normal 150-400 [facility] Comment on above: Order Comment: No: Do not add to previou s draw Performed By: #### 5 0103 ####[facility] RBC Auto #/vol (Bld) 4.68 10*6/uL Normal 4.20-5.70 [facility] Comment on above: Order Comment: No: Do not add to previou s draw Performed By: #### 5 0103 ####[facility] WBC Auto #/vol (Bld) 6.80 10*3/uL Normal 4.00-10.60 [facility] Comment on above: Order Comment: No: Do not add to previou s draw Performed By: #### 5 0103 ####[facility] Cardiovascular Lab Reporton 03-10-2018 Cardiovascular Lab Report [facility] Patient [facility] MR #: [id number] Physician: Oren Zafar M.D.Medicine Service Date: 03/09/2018Division of Birthdate: 2Cardiology Room #: 3CD [id number] Cardi[place]Serv[place] [address]Phone Fax Cardiovascular Laboratory ReportCARDIAC CATHETERIZATION REPORTINDICATION: Sheng [...] signed informed consent. He was brought to laboratory geneticist in a fasting state.The right groin area was prepped and draped in usual fashion. Usingmicropuncture technique, the right common femoral artery was accessed. Theinner cannula was advanced, limited femoral angiography was performed.Followed by upsizing to a 6-Slovak x 11 cm sheath. Bilateral selectivecoronary angiography was then performed using 6-Slovak JL4 and JE4hzfnsivbip catheters. The 6-Slovak JR4 diagnostic catheter was used toselectively engage the radial graft to the OM2 and saphenous venous graftto the PDA branch. Angiography was performed. Catheter was removed. A6-Slovak GEOVANNY catheter was used to selectively engage the left subclavianartery and then selectively engage the left internal mammary artery.Angiography was performed. Catheter was removed.Heparin was administered intravenously and therapeutic ACT confirmed duringthe procedure. A 6-Slovak XB 3.0 guiding catheter was advanced and used toengage the left main coronary ostium. A [place] wire was advanced into thedistal circumflex. Balloon angioplasty in the mid circumflex was performedusing Emerge 3.0 x 15 mm balloon inflated at 10 atmospheres. Angiographyof this revealed suboptimal result. Therefore, a Synergy 3.0 x 24 mmdrug-eluting stent was deployed at 12 atmospheres and post dilated using NCQuantum [place] 3.0 x 20 mm noncompliant balloon inflated at 18 atmospheresthroughout the length of the stent. Angiography after administration ofintracoronary nitroglycerin showed excellent result with reduction of thestenosis to 0%. No evidence of dissection or perforation. The guidingcatheter was removed. The right femoral arteriotomy was managed with a6-Slovak Angio-Seal device with good hemostasis. He was [...] The distal LAD has moderate diffuse disease iywmihi43%-70% beyond the anastomosis of the VEGA graft.Circumflex [...] 03/09/2018/06:08 P/Oren Simon M.D.Date Trans: 03/10/2018 04:31 A/mmoDN_JN:[id number]: Derrick Lopez M.D. [address] [place] [address] [place] [facility] Discharge Summaryon 03-10-20 Discharge Summary MR#: [id number] [facility] Admitted: 03/08/2018 [...] as listed above, who was sent from [facility] due to concernof possible ACS. Apparently, the patient presented to [facility] complainingof dizziness and vomiting, which was his presenting complaint prior toneeding his last CABG 16 years ago. EKG at [facility] showed new T-waveinversions in the inferior leads, not there on previous EKG. Firsttroponin was negative and time signal wirer here at [facility], recommended to beingthe patient to be sent to [facility] for cardiac cath. The patient was admittedto Medicine on step-down service and Cardiology was consulted. The patientpreviously had stress test within the past 2 years, which was negative andrecent echocardiogram per patient history, which was performed 6 months agoshowed improvement regarding wall motion abnormalities and ejectionfraction. The patient was taken to laboratory geneticist following day after admission,revealing patent 3/3 bypass [...] taking and to discuss high-intensity statinwith his time signal wirer, which he will be follow up with [...] Dict: 03/10/2018/12:04 P/TAYLOR Lua-CDate Trans: 03/10/2018 07:17 P/Esdras_JN:[id number]: Derrick Lopez M.D. [address] [place] [address] Normal [facility] POC GLUCOSE LABon 03-10-2018 Glucose mass conc 256 mg/dL High 70-100 [facility] Comment on above: Performed By: #### 03795, 63991, 16819, 09498, 99273 ####[facility] [place] [address], [facility] Glucose mass conc 160 mg/dL High 70-100 [facility] Comment on above: Performed By: #### 66444, 43527, 22380, 04088, 26197 ####[facility] [place] [address], [facility] BASIC METABOLIC PANELon Calcium mass conc 9.1 mg/dL Normal 8.6-10.3 [facility] Comment on above: Order Comment: No: Do not add to previou s draw Performed By: #### 5 0103 ####[facility] [place] [address], [facility] Chloride molar conc 103 mmol/L Normal 98-107 [facility] Comment on above: Order Comment: No: Do not add to previou s draw Performed By: #### 5 0103 ####[facility] [place] [address], [place] CO2 molar conc 28 mmol/L Normal 21-31 [facility] Comment on above: Order Comment: No: Do not add to previou s draw Performed By: #### 5 0103 ####[facility] [place] [address], [place] Creatinine mass conc 1.20 mg/dL Normal 0.70-1.30 [facility] Comment on above: Order Comment: No: Do not add to previou s draw Performed By: #### 5 0103 ####[facility] [place] [address], [facility] GFR/1.73 sq M predicted among blacks MDRD vol rate/area (S/P/Bld) mL/min/{1.73_m2} Normal >60 [facility] Comment on above: Order Comment: No: Do not add to previou s draw Result Comment: Calc ulation may not be valid for patients over 70 years Performed By: #### 5 0103 ####[facility] [place] [address], [facility] GFR/1.73 sq M predicted among non-blacks MDRD vol rate/area (S/P/Bld) 59 ml/min/1.73sq m Abnormal >60 [facility] Comment on above: Order Comment: No: Do not add to previou s draw Result Comment: Calc ulation may not be valid for patients over 70 years Performed By: #### 5 0103 ####[facility] [place] [address], [facility] Glucose mass conc 96 mg/dL Normal 70-100 [facility] Comment on above: Order Comment: No: Do not add to previou s draw Performed By: #### 5 0103 ####[facility] [place] [address], [place] Potassium molar conc 3.7 mmol/L Normal 3.5-5.1 [facility] Comment on above: Order Comment: No: Do not add to previou s draw Performed By: #### 5 0103 ####[facility] [place] [address], [place] Sodium molar conc 140 mmol/L Normal 136-145 [facility] Comment on above: Order Comment: No: Do not add to previou s draw Performed By: #### 5 0103 ####[facility] [place] [address], [place] Urea nitrogen mass conc 19 mg/dL Normal 7-25 [facility] Comment on above: Order Comment: No: Do not add to previou s draw Performed By: #### 5 0103 ####[facility].[address] POC GLUCOSE LABon 03-09-2018 Glucose mass conc 155 mg/dL High 70-100 [facility] Comment on above: Performed By: #### [id number] ####[facility].[address] Glucose mass conc 91 mg/dL Normal 70-100 [facility] Comment on above: Performed By: #### 28337 ####[facility].[address] Glucose mass conc 107 mg/dL High 70-100 [facility] Comment on above: Performed By: #### 88916 ####[facility].[address] Glucose mass conc 115 mg/dL High 70-100 [facility] Comment on above: Performed By: #### 91479 ####[facility].[address] UFH HEPARIN ASSAYon 03-09-20 18 UNFRACTIONATED HEPARIN 0.42 IU/mL Normal 0.30-0.70 [facility] Comment on above: Result Comment: Rivaroxaban and Apixaban will interfere with the anti Xa assay used tomonitor UFH and LMWH. Performed By: #### 5 0103 ####[facility] [facility] [place] [address], [facility] UNFRACTIONATED HEPARIN 0.27 IU/mL Low 0.30-0.70 [facility] Comment on above: Result Comment: Rivaroxaban and Apixaban will interfere with the anti Xa assay used tomonitor UFH and LMWH. Performed By: #### 5 0103 ####[facility].[address] APTTon 03-08-2018 aPTT Coag time (Bld) [...] UFH <0.1 Performed By: #### 5 7307, 58967 ####[facility] BASIC METABOLIC PANELon Calcium mass conc 9.4 mg/dL Normal 8.6-10.3 [facility] Comment on above: Order Comment: No: Do not add to previou s draw Performed By: #### 9 9909, 88529, 08763, 27754, 40091 ####[facility] [facility] [place] [address], [facility] Chloride molar conc 105 mmol/L Normal 98-107 [facility] Comment on above: Order Comment: No: Do not add to previou s draw Performed By: #### 9 9909, 29763, 42326, 86035, 48292 ####[facility].[address] CO2 molar conc 28 mmol/L Normal 21-31 [facility] Comment on above: Order Comment: No: Do not add to previou s draw Performed By: #### 9 9909, 41927, 68606, 18261, 13668 ####[facility] [facility] [place] [address], [facility] Creatinine mass conc 1.13 mg/dL Normal 0.70-1.30 [facility] Comment on above: Order Comment: No: Do not add to previou s draw Performed By: #### 9 9909, 39570, 11181, 67825, 11440 ####[facility] [place] [address], [facility] GFR/1.73 sq M predicted among blacks MDRD vol rate/area (S/P/Bld) mL/min/{1.73_m2} Normal >60 [facility] Comment on above: Order Comment: No: Do not add to previou s draw Result Comment: Calc ulation may not be valid for patients over 70 years Performed By: #### 9 9909, 68871, 58827, 45576, 25524 ####[facility] [facility] [place] [address], [facility] GFR/1.73 sq M predicted among non-blacks MDRD vol rate/area (S/P/Bld) mL/min/{1.73_m2} Normal >60 [facility] Comment on above: Order Comment: No: Do not add to previou s draw Result Comment: Calc ulation may not be valid for patients over 70 years Performed By: #### 9 9909, 31009, 03578, 22831, 56884 ####[facility] [facility] [place] [address], [facility] Glucose mass conc 108 mg/dL High 70-100 [facility] Comment on above: Order Comment: No: Do not add to previou s draw Performed By: #### 9 9909, 98261, 38802, 81066, 38939 ####[facility] [facility] [place] [address], [place] Potassium molar conc 3.7 mmol/L Normal 3.5-5.1 [facility] Comment on above: Order Comment: No: Do not add to previou s draw Performed By: #### 9 9909, 49398, 06377, 67708, 22544 ####[facility] [place] [address], [place] Sodium molar conc 141 mmol/L Normal 136-145 [facility] Comment on above: Order Comment: No: Do not add to previou s draw Performed By: #### 9 9909, 87335, 70453, 09915, 45398 ####[facility] [address] Urea nitrogen mass conc 21 mg/dL Normal 7-25 [facility] Comment on above: Order Comment: No: Do not add to previou s draw Performed By: #### 9 9909, 15242, 46333, 18141, 24508 ####[facility] [address] CBC W/DIFFon 03-08-2018 ABS BASOPHILS 0.0 10*3/uL Normal 0.0-0.2 [facility] Comment on above: Performed By: #### 92055 ####[facility] [address] ABS IMM GRANS 0.0 10*3/uL Normal 0.0-0.2 [facility] Comment on above: Performed By: #### 92953 ####[place] [address] [address] ABS NEUTROPHILS 4.4 10*3/uL Normal 1.6-7.6 [facility] Comment on above: Performed By: #### 24220 ####[facility] [address] Basophils Auto #/vol (Bld) 0.6 % Normal 0.0-1.0 [facility] Comment on above: Performed By: #### 50198 ####[facility] [address] Eosinophils Auto #/vol (Bld) 0.3 10*3/uL Normal 0.0-0.5 [facility] Comment on above: Performed By: #### 82450 ####[facility].[address] Eosinophils/100 WBC Auto (Bld) 4.0 % Normal 0.0-6.0 [facility] Comment on above: Performed By: #### 58029 ####[facility] [address] Erythrocyte distribution width Auto Ratio (RBC) 13.3 % Normal 11.5-15.0 [facility] Comment on above: Performed By: #### 82868 ####[place] [address] [address] Hematocrit Auto Volume Fraction (Bld) 41.7 % Normal 39.0-50.0 [facility] Comment on above: Performed By: #### 12867 ####[place] [address]50 [address] Hemoglobin mass conc (Bld) 13.7 g/dL Normal 13.0-17.0 [facility] Comment on above: Performed By: #### 85999 ####[address] IMMATURE GRANS 0.3 % Normal 0.0-1.0 [facility] Comment on above: Performed By: #### 24947 ####[place] [address] Lymphocytes Auto #/vol (Bld) 1.7 10*3/uL Normal 1.2-4.0 [facility] Comment on above: Performed By: #### 74737 ####[place] [address] Lymphocytes/100 WBC Auto (Bld) 24.0 % Normal 20.0-45.0 [facility] Comment on above: Performed By: #### 09373 ####[facility] [address] MCH Auto Entitic mass (RBC) 29.7 pg Normal 27.0-33.0 [facility] Comment on above: Performed By: #### 94780 ####[facility] [address] MCHC Auto mass conc (RBC) 32.9 g/dL Normal 32.0-35.0 [facility] Comment on above: Performed By: #### 43202 ####[facility] [address] MCV Auto Entitic volume (RBC) 90.3 fL Normal 82.0-98.0 [facility] Comment on above: Performed By: #### 92396 ####[place] [address] Monocytes Auto #/vol (Bld) 0.6 10*3/uL Normal 0.1-1.0 [facility] Comment on above: Performed By: #### 60707 ####[facility] [address] MONOS 7.9 % Normal 5.0-12.0 [facility] Comment on above: Performed By: #### 70903 ####[place] [address] [address] Neutrophils/100 WBC Auto (Bld) 63.2 % Normal 40.0-72.0 [facility] Comment on above: Performed By: #### 44059 ####[place] [address] Nucleated RBC/100 WBC Ratio (Bld) 0 % Normal 0-0 [facility] Comment on above: Performed By: #### 62652 ####[facility] [address] PLAT CNT 209 10*3/uL Normal 150-400 [facility] Comment on above: Performed By: #### 13216 ####[facility].[address] RBC Auto #/vol (Bld) 4.62 10*6/uL Normal 4.20-5.70 [facility] Comment on above: Performed By: #### 29867 ####[facility].[address] WBC Auto #/vol (Bld) 6.93 10*3/uL Normal 4.00-10.60 [facility] Comment on above: Performed By: #### 98587 ####[facility] [address] History and Physicalon 03-08 History and Physical MR[id number] Admitted: 03/08/2018 Date of : 1940 Attending Physician: Shiva Seay MD Room #: 3CD [id number] Discharge Date: HISTORY AND PHYSICALCHIEF COMPLAINT: Dizziness and vomiting.HISTORY OF PRESENT ILLNESS: This patient is 77-year-old male with pastmedical history of coronary artery disease, status post CABG 16 years ago,hypertension, hyperlipidemia, and diabetes, who was sent from [facility] because of possibility of ACS. The patient presented to [facility] complaining of dizziness and vomiting while he was working on [employer]. The patient stated that he had similar symptoms when he had hisheart attack 16 years ago that ended up having CABG. In the [facility], his EKG showed new T inversions in inferior leads, which theywere not there previously. The 1st troponin was negative. The ER doctorcalled his time signal wirer, Dr. Simon, who [facility] The [...] Dict: 03/08/2018/05:06 P/Lizbeth Singh Trans: 03/08/2018 05:31 P/mmoDN_JN:[id number] Normal [facility] LIVER BATTERYon 03-08-2018 Albumin mass conc 4.0 g/dL Normal 3.5-5.7 [facility] Comment on above: Order Comment: No: Do not add to previou s draw Performed By: #### 9 9909, 72944, 57813, 16567, 29777 ####[facility] [place] [address], [facility] ALKALINE PHOSPH 53 IU/L Normal 34-104 [facility] Comment on above: Order Comment: No: Do not add to previou s draw Performed By: #### 9 9909, 39912, 47258, 46522, 76750 ####[facility] [place] [address], [facility] ALT enzyme act/vol 21 U/L Normal 7-52 [facility] Comment on above: Order Comment: No: Do not add to previou s draw Performed By: #### 9 9909, 02757, 51081, 48392, 11742 ####[facility] [place] [address], [place] AST enzyme act/vol 19 U/L Normal 13-39 [facility] Comment on above: Order Comment: No: Do not add to previou s draw Performed By: #### 9 9909, 03352, 27695, 47886, 18354 ####[facility] [place] [address], [place] Bilirubin mass conc 0.8 mg/dL Normal 0.3-1.0 [facility] Comment on above: Order Comment: No: Do not add to previou s draw Performed By: #### 9 9909, 72474, 71186, 47218, 03348 ####[facility] [place] [address], [place] Bilirubin.direct mass conc 0.2 mg/dL Normal 0.0-0.2 [facility] Comment on above: Order Comment: No: Do not add to previou s draw Performed By: #### 9 9909, 42475, 57480, 55006, 56017 ####[facility] [place] [address], [facility] Protein mass conc 7.1 g/dL Normal 6.0-8.3 [facility] [facility] Comment on above: Order Comment: No: Do not add to previou s draw Performed By: #### 9 9909, 40185, 59724, 01001, 34193 ####[facility] [place] [address], [facility] MAGNESIUM BLOODon 03-08-2018 Magnesium mass conc 2.0 mg/dL Normal 1.9-2.7 [facility] Comment on above: Order Comment: No: Do not add to previou s draw Performed By: #### 9 9909, 56773, 21572, 79650, 10755 ####[facility] [place] [address], [facility] PHOSPHORUS BLOODon 8 Phosphate mass conc 3.2 mg/dL Normal 2.5-5.0 [facility] Comment on above: Order Comment: No: Do not add to previou s draw Performed By: #### 9 9909, 16204, 58074, 07850, 59786 ####[facility] [place] [address], [facility] POC GLUCOSE LABon 03-08-2018 Glucose mass conc 164 mg/dL High 70-100 [facility] Comment on above: Performed By: #### [id number] ####[facility] [place] [address], [facility] Glucose mass conc 114 mg/dL High 70-100 [facility] Comment on above: Performed By: #### [id number] ####[facility] PROTHROMBIN TIMEon 8 INR Coag RelTime [...] OF ACTION, CLINICALEFFECTIVENESS, AND OPTIMAL THERAPEUTIC RANGE. [id number]. Performed By: #### 5 7307, 72053 ####[facility].[address] Prothrombin time (PT) Coag time (PPP) 14.3 s Normal 12.3-14.8 [facility] Comment on above: Order Comment: No: Do not add to previou s draw Result Comment: ALL RESULTS MUST BE INTERPRETED WITH RESPECT TO BLOOD DRAWING ARTIFACTOR DILUTION ERROR OF ANTICOAGULANT AT THE TIME OF SAMPLING. Performed By: #### 5 7307, 63598 ####[facility] [address] TROPONIN-Ion 03-08-2018 Troponin I.cardiac mass conc 0.01 ng/mL Normal 0.00-0.04 [facility] Comment on above: Order Comment: No: Do not add to previou s draw Result Comment: REFE RENCE RANGES: 0.00 - 0.04 ng/ml NORMAL 0.05 - 0.50 ng/ml INDETERMINATE > 0.50 ng/ml CONSISTENT WITH AN M.I. Performed By: #### 9 9909, 98227, 56026, 03952, 60523 ####[facility] Vital Signs Date Time Vital Sign Value Performing Clinician Kristie kerr 02-15-2022 10:03-0400 Blood Pressure Location César Gordon Jr. [facility] 02-15-2022 10:03-0400 Diastolic blood pressure 66 mm[Hg] César Gordon Jr. [facility] 02-15-2022 10:03-0400 Heart rate 80 /min César Gordon Jr. [facility] 02-15-2022 10:03-0400 Respiratory rate 16 /min César Gordon Jr. [facility] 02-15-2022 10:03-0400 Systolic blood pressure 88 mm[Hg] César Gordon Jr. [facility] Encounters Encounter Date Encounter Type Care Provider [...] Start: 09-20-2022 End: 09-21-2022 ambulatory TASHA OROZCO Facility:[facility] Start: 09-20-2022 End: 09-20-2022 Patient encounter procedure TASHA OROZCO [facility] Start: 09-19-2022 End: 09-20-[address] DERRICK LOPEZ . Facility:[facility] Start: 09-12-2022 End: 09-12-2022 [facility] Start: 09-02-2022 End: 09-03-2022 [...] Start: 02-15-2022 End: 02-16-2022 ambulatory César Gordon Facility:[facility] Start: 02-15-2022 End: 07-12-2022 Patient encounter procedure César Gordon Jr. [facility] Start: 02-09-[address] DERRICK LOPEZ . [...] Evaluation and management of inpatient ZAYRA RAMIREZ Facility:[facility] Procedures Date Procedure Procedure Detail Performing Clinician Start: 11-23-[address] BRIANNE LOPEZ . Comment on above: Performed By: #### V ITAD, PSASC ####[facility] [address] [address]Dr. Yuki Diaz Start: 10-25-2022 Transfusion of Nonau tologous Red Blood Cells into Peripheral Vein, Percutaneous Approach DR DERRICK LOPEZ . Start: 06-14-[address] BRIANNE LOPEZ . Comment on above: Performed By: #### P SAD ####[facility] [address] [place] [address]Qj. Yuki Diaz Start: 03-09-2018 DILATION OF 1 COR AR T WITH DRUG-ELUT INTRA, PERC APPROACH OREN JORBFERCHO Start: 03-09-2018 FLUOROSCOPY OF L INT MAMM GRAFT USING OTH CONTRAST OREN JORBFERCHO Start: 03-09-2018 FLUOROSCOPY OF MULT COR A GRAFT USING OTH CONTRAST OREN SIMON Start: 03-09-2018 FLUOROSCOPY OF MULTI PLE CORONARY ARTERIES USING OTH CONTRAST OREN SIMON Start: 03-30-2016 Cystourethroscopy [facility] dilation of urethral stricture César Gordon [...] vax César Gordon Jr. [facility] 05-13-2021 SARS-CoV-2 (COVID-19 ) mRNA BNT-162b2 vax TASHA OROZCO [facility] 05-10-2021 influenza virus vaccine, unspecified formulation TASHA OROZCO [facility] 12-05-2020 SARS-CoV-2 (COVID-19 ) mRNA BNT-162b2 vax César Gordon Jr. [facility] 11-05-2020 SARS-CoV-2 (COVID-19 ) mRNA BNT-162b2 vax César Gordon Jr. [facility] 10-02-2020 SARS-CoV-2 (COVID-19 ) mRNA BNT-162b2 vax TASHA OROZCO [facility] 09-04-2020 SARS-CoV-2 (COVID-19 ) mRNA BNT-162b2 vax TASHA OROZCO [facility] 05-06-2020 influenza virus vaccine, unspecified formulation TASHA OROZCO [facility] 05-30-2017 influenza, unspecifi ed formulation TASHA OROZCO [facility] 05-30-2017 pneumococcal conjuga te vaccine, 13 valent TASHA OROZCO [facility] 05-06-2016 influenza virus vaccine, unspecified formulation TASHA OROZCO [facility] Payers Date Payer Category Payer Private Health Insurance [id number] 1959 Self-pay 1940 Unknown [id number] 2.16.8 40.1.171956.3.579.2.727 1940 Unknown [id number] 2.16.8 40.1.860330.3.579.2.727 1940 Unknown [id number] 2.16.84 0.1.023028.3.579.2.593 1940 Unknown [id number] 2.16.84 0.1.448026.3.579.2.593 1940 Unknown [id number] 2.16.84 0.1.497593.3.579.2.593 1942 Unknown [id number] 2.16.84 0.1.561147.3.579.2.593 1942 Unknown [id number] 2.16.84 0.1.019407.3.579.2.593 1942 Unknown [id number] 2.16.84 0.1.137333.3.579.2.593 1942 Unknown [id number] 2.16.84 0.1.532650.3.579.2.593 1942 Unknown [id number] 2.16.84 0.1.705547.3.579.2.593 1942 Unknown [id number] 2.16.84 0.1.850247.3.579.2.593 1942 Unknown [id number] 2.16.84 0.1.772242.3.579.2.593 1942 Unknown [id number] 2.16.84 0.1.139808.3.579.2.593 1942 Unknown [id number] 2.16.84 0.1.359975.3.579.2.593 1942 Unknown [id number] 2.16.84 0.1.245629.3.579.2.593 1942 Unknown [id number] 2.16.84 0.1.650482.3.579.2.593 1942 Unknown [id number] 2.16.84 0.1.708526.3.579.2.593 1942 Unknown [id number] 2.16.84 0.1.864105.3.579.2.593 1942 Unknown [id number] 2.16.84 0.1.309644.3.579.2.593 1942 Unknown [id number] 2.16.84 0.1.116122.3.579.2.593 1942 Unknown [id number] 2.16.84 0.1.181395.3.579.2.593 1942 Unknown [id number] 2.16.84 0.1.602731.3.579.2.593 1942 Unknown [id number] 2.16.84 0.1.149425.3.579.2.593 1942 Unknown [id number] 2.16.84 0.1.239565.3.579.2.593 1942 Unknown [id number] 2.16.84 0.1.179626.3.579.2.593 1942 Unknown [id number] 2.16.84 0.1.028750.3.579.2.593 [facility] [id number] Social History Date Type Detail Facility Start: 02-15-2022 Tobacco smoking status Ex-smoker (fi nding) [facility] Sex Assigned At Male [facility] Functional Status Date Assessment Result Facility 02-15-2022 Functional Status N/A [facility] Clinical Notes 02-15-2022 to 07-14-2023 Note Date & Type Note Facility 07-14-2023 Note [facility] Subjective Sheng Bauer is a 83 y.o. year old male patient being seen for 3 mo follow up chronic systolic heart failure, CAD, and hypertension. He was admitted to [facility] in Apr 2023. Doing very well since then, as he denies chest pain, SOB, LE edema, and palpitations. Patient Active Problem List Diagnosis Coronary arteriosclerosis Hypertensive disorder Hx of CABG Chronic systolic heart failure ([facility]/HCC) Hx of deep venous thrombosis Diabetes [...] unspecified Major depressive disorder, recurrent, unspecified (CMS/[facility]) Limitation of activities due to disability Morbid [...] OM) in 2001. He has history of AR in 2001. He has hypertension on treatment. He has CKD. In 2017 he was admitted to [facility] transferred [facility] the [facility] with symptoms of unstable angina and new onset T-wave inversions in the inferolateral leads. Cardiac cath was done and he underwent stenting of the circumflex with Synergy TONYA on 03/09/2018. 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 He was admitted to [facility] in January 2023 for pneumonia. [...] hx of DVT. He was admitted to [facility] in March s/p fall, January [...] OM) in 2001. He has history of AR in 2001. He has hypertension on treatment. He has CKD with Cr previously around 1.5. In 2017 he was admitted to [facility] transferred [facility] the [facility] with symptoms of unstable angina and new onset T-wave inversions in the inferolateral leads. Cardiac cath was done and he underwent stenting of the circumflex with Synergy TONYA on 03/09/2018. He did get admitted in December 2019 to [facility] after a tree fell on [...] not included)... [facility] 09-12-2022 Note [facility] Subjective Sheng Bauer is a [...] OM) in 2001. He has history of AR in 2001. He has hypertension on treatment. He has CKD with Cr previously around 1.5. In 2017 he was admitted to [facility] transferred from the [facility] with symptoms of unstable angina and new onset T-wave inversions in the inferolateral leads. Cardiac cath was done and he underwent stenting of the circumflex with Synergy TONYA on 03/09/2018. He did get admitted in December 2019 to [facility] after a tree fell on [...] including vitamins, herbs, eye drops, creams, and [id number] medicines. This also includes: ?Medicines to assist [...] 08/26/2005 Document Revised: 07/06/2018 Document Reviewed: 04/30/2018 [employer] Patient Education 2020 [employer]. Follow Up Care 08/10/2021 09:51:10 With:Evan Ochoa MD, César Vega, URO Address: [facility] [address], [place] [address]- When:Within 6 Month(s) Comments:w/ psa [facility] Evaluation + Plan note Future Appointments Appointment Date:08/23/2022 10:30:00 AM Scheduled Provider:César Gordon Jr., MD Location:[facility] Appointment Type:URO Office Visit Diagnostic Tests PendingPSA Total 02/15/22 [facility] Hospital course Narrative No data available for this section [facility] Hospital Discharge instructions No data available for this section [facility] Progress note No data available for this section [facility] Summary Purpose Family History No Family History [...] and content) DATE CREATED AUTHOR 03/19/2018 [facility] DATE CREATED AUTHOR AUTHOR'S ORGANIZ ATION 09/21/2022 [facility] DATE CREATED AUTHOR AUTHOR'S ORGANIZ ATION 12/16/2022 [facility] DATE CREATED AUTHOR AUTHOR'S ORGANIZ ATION 07/17/2023 [facility] Care Team (unrecognized sect ion and content) Personnel Name: Derrick Lopez MD Address: [address] [place] [address] Personnel Name: Derrick Lopez MD Address: Address: [address] [place] [address] FOR RECORDS PERTAINING TO PATIENTS WHO ARE [...] BE BASED ON THE PRIMARY CLINICAL RECORDS. [facility] [employer] [facility]. provides no warranty or guarantee of the accuracy or completeness of information in this document.
--- NOTE | 2024-04-01 19:19 | ED_ITS ---
HPI HPI - Fall General Chief Complaint: Fall Stated Complaint: FALL Time Seen by Provider: 04/01/24 19:12 Source: patient Mode of arrival: ambulance Limitations: no limitations History of Present Illness HPI Narrative: This 84-year-old man who is on Eliquis and currently in an extended care facility is brought to the emergency department by EMS from the extended care facility after he fell. The patient states he was sitting in a chair and reaching for his phone when he lost his balance and fell. He struck the left side of his forehead when he fell and sustained a laceration to the left lateral eyebrow area that does not include his eye and has a large approximately 6 x 8 cm skin tear on his left forearm. He denies any elbow pain. He denies any loss of consciousness. He denies any neck pain or back pain. Related Data Home Medications ?Medication ?Instructions ?Recorded ?Confirmed atorvastatin 20 mg tablet 20 mg PO .QHS 01/28/23 03/25/24 levothyroxine 50 mcg tablet 50 mcg PO .qhs 01/28/23 03/25/24 aspirin 81 mg tablet,delayed 81 mg PO DAILY 01/30/23 03/25/24 release (Adult Aspirin Regimen) amitriptyline 50 mg tablet 50 mg PO BEDTIME 04/30/23 03/25/24 insulin detemir U-100 100 unit/mL 38 unit subcut QAM 02/22/24 03/25/24 (3 mL) subcutaneous pen (Levemir FlexPen) alprazolam 0.5 mg tablet 0.5 mg PO TID PRN anxiety 03/25/24 03/25/24 Previous Rx's ?Medication ?Instructions ?Recorded insulin aspart U-100 100 unit/mL 2 - 14 unit (0.02 - 0.14 mL) 02/08/23 (3 mL) subcutaneous pen (Novolog subcut ACHS #15 mL FlexPen U-100 Insulin aspart) hydralazine 25 mg tablet 25 mg PO TID #90 tabs 02/09/24 benzonatate 100 mg capsule 200 mg (2 x 100 mg) PO Q8H PRN 02/24/24 Cough 3 days #6 caps amino acids-protein hydrolysate 15 1 ea PO BID #2,880 mL 03/13/24 gram-100 kcal/30 mL oral liquid pkt (Pro-Stat Sugar Free) carvedilol 25 mg tablet 37.5 mg (1.5 x 25 mg) PO BID #90 03/13/24 tabs ferrous sulfate 325 mg (65 mg 325 mg PO BID #60 tabs 03/13/24 iron) tablet food supplemt, lactose-reduced 1 ea PO BID #5,688 mL 03/13/24 (Ensure Active Protein-Muscle oral liquid) isosorbide mononitrate 60 mg 120 mg (2 x 60 mg) PO QD #30 tabs 03/13/24 tablet,extended release 24 hr pantoprazole 40 mg tablet,delayed 40 mg PO QAM #30 tabs 03/13/24 release (Protonix) sacubitril 24 mg-valsartan 26 mg 2 tab PO BID #60 tabs 03/13/24 tablet (Entresto) bumetanide 1 mg tablet 2 mg (2 x 1 mg) PO BID #60 tabs 03/29/24 carvedilol 25 mg tablet 37.5 mg (1.5 x 25 mg) PO BID #90 03/29/24 tabs liothyronine 5 mcg tablet 10 mcg (2 x 5 mcg) PO QD #60 tabs 03/29/24 sertraline 50 mg tablet 100 mg (2 x 50 mg) PO DAILY #60 03/29/24 tabs Allergies Allergy/AdvReac Type Severity Reaction Status Date / Time Sulfa (Sulfonamide Allergy Intermediate pass out Verified 03/06/24 08:20 Antibiotics) spironolactone AdvReac Severe renal Verified 03/06/24 08:20 failure Opioid HPI Opioid Management Most Recent Pain and Opioid Data: Last Pain Scale 7 03/27/24 08:01 Last Pain Intensity 0 03/26/24 13:28 Last Pain Assessment 03/29/24 12:00 Last ORT Total Score 0 03/25/24 15:48 Last ORT Risk Category Low Risk 03/25/24 15:48 Review of Systems ROS Status of ROS 10 or more systems reviewed and unremark able except as noted in history and below [facility] Medical History (Updated 04/02/24 @ 00:00 by ) MARIBELL (acute kidney injury) ?N17.9 - Acute kidney failure, unspecified (ICD-10) Fluid overload ?E87.70 - Fluid overload, unspecified (ICD-10) Acute retention of urine ?R33.8 - Other retention of urine (ICD-10) Anasarca ?R60.1 - Generalized edema (ICD-10) Dehydration ?E86.0 - Dehydration (ICD-10) Acute kidney injury superimposed on CKD ?N17.9 - Acute kidney failure, unspecified (ICD-10) ?N18.9 - Chronic kidney disease, unspecified (ICD-10) 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 ?E11.22 - Type 2 diabetes mellitus with diabetic chronic kidney disease (ICD- 10) ?N18.30 - Chronic kidney disease, stage 3 unspecified (ICD-10) Hypothyroidism ?E03.9 - Hypothyroidism, unspecified (ICD-10) HTN (hypertension) ?I10 - Essential (primary) hypertension (ICD-10) Acute combined systolic (congestive) and diastolic (congestive) heart failure ?I50.41 - Acute combined systolic (congestive) and diastolic (congestive) heart failure (ICD-10) Frequent falls ?R29.6 - Repeated falls (ICD-10) Generalized weakness ?R53.1 - Weakness (ICD-10) Fall ?W19.XXXA - Unspecified fall, initial encounter (ICD-10) Altered mental status ?R41.82 - Altered mental status, unspecified (ICD-10) 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 ?N18.6 - End stage renal disease (ICD-10) ?D63.1 - Anemia in chronic kidney disease (ICD-10) Hypotension due to medication ?I95.2 - Hypotension due to drugs (ICD-10) Acute hypotension ?I95.9 - Hypotension, unspecified (ICD-10) Cellulitis ?L03.90 - Cellulitis, unspecified (ICD-10) Diabetes ?E11.9 - Type 2 diabetes mellitus without complications (ICD-10) Afib ?I48.91 - Unspecified atrial fibrillation (ICD-10) CHF (congestive heart failure) ?I50.9 - Heart failure, unspecified (ICD-10) Acute renal failure ?N17.9 - Acute kidney failure, unspecified (ICD-10) Peripheral neuropathy ?G62.9 - Polyneuropathy, unspecified (ICD-10) Family History (Updated 03/25/24 @ 16:13 by Bernadette Monsivais RN) Father No problems noted. Brother No problems noted. Mother No problems noted. Aunt No problems noted. Social History (Updated 03/04/24 @ 07:22 by Kandy Huston) Within the past year, how often did you have a drink containing alcohol: never Score interpretation: A score less than 4 is consistent with normal alcohol consumption. Smoking status: Former smoker Non-prescribed substance use: denies use Known occupational exposures/hazards: No Highest level of school completed/degree received: 10th grade Are you now , , , , never or living with a partner: In a typical week, how many times do you talk on the telephone with family, friends, or neighbors: 3 or more times per week How often do you get together with friends or relatives: twice per week How often do you attend restorationism or adventism services: 1-3 times per year Do you belong to any clubs or organizations such as restorationism groups unions, [employer] or athletic groups, or school groups: no Total score: 1 Score interpretation: A score of less than or equal to 1 indicates the most socially isolated. Little interest or pleasure in doing things: several days Feeling down, depressed, or hopeless: several days Feel stressed/tense/nervous/anxious/difficulty sleeping: only a little Life stressors: recent of family or friend Do you think of yourself as: straight/heterosexual Gender Identity: male Exam Narrative Exam Narrative: Vital signs and Nursing Notes reviewed: Vital signs reviewed, the patient is afebrile with a normal pulse, blood pressure is elevated at 141/93 and he is mildly hypoxic with pulse ox of 92% on room air General: Awake, alert, oriented, chronically ill-appearing obese elderly male, GCS 15, no respiratory distress HEENT: Normocephalic, there is an approximately 1.5 cm superficial laceration to the left lateral eyebrow area. There is a clot overlying the laceration upon arrival. 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, there is a 6 cm x 8 cm skin tear on the left forearm, no active bleeding noted, no deep laceration noted, patient has pitting edema to all extremities, appears chronic in nature with bruised areas on the left elbow area and humerus Skin: Chronic skin changes with skin tear to left forearm Neuro: No focal deficits Constitutional Vital Signs, click to edit/add: Last Vital Signs Temp 98.5 F 04/01/24 19:09 Pulse 77 04/01/24 22:33 Resp 20 04/01/24 22:33 BP 131/56 04/01/24 22:33 Pulse Ox 92 L 04/01/24 22:33 O2 Del Method Room Air 04/01/24 22:33 Course Vital Signs Vital signs: Vital Signs Temperature 98.5 F 04/01/24 19:09 Pulse Rate 86 04/01/24 19:09 Respiratory Rate 20 04/01/24 19:09 Blood Pressure 141/93 H 04/01/24 19:09 Pulse Oximetry 92 L 04/01/24 19:09 Oxygen Delivery Method Room Air 04/01/24 19:09 Temperature 98.5 F 04/01/24 19:09 Pulse Rate 77 04/01/24 22:33 Respiratory Rate 20 04/01/24 22:33 Blood Pressure 131/56 04/01/24 22:33 Pulse Oximetry 92 L 04/01/24 22:33 Oxygen Delivery Method Room Air 04/01/24 22:33 MDM - Fall MDM Narrative Medical decision making narrative: This 84-year-old male with multiple medical problems who was recently admitted to this hospital for fluid overload and is in an extended care facility was brought to the emergency department from the extended care facility after he fell out of his chair while trying to reach for his phone. He has a large skin tear on his left forearm with some bruising around the elbow and humerus area and a superficial laceration to the left eyebrow area. The son informed me after the patient had been here for a while that he was given a sleeping pill prior to falling which is probably why he seems sleepy. He does not have any neck tenderness. He has chronic lower extremity edema and his lower extremities are wrapped. We did not remove the wrapping but he did not have any injuries of his knees and was moving both lower extremities indicating he likely did not have any injury to this area. CT scan of the brain and cervical spine was ordered and shows chronic changes but no acute fracture subluxation or intracranial hemorrhage. The left eyebrow laceration was cleaned and closed with Dermabond and the left forearm skin tear was cleaned and covered with a topical dressing. This was not amenable to suture closure. X-ray of the left humerus and elbow was reviewed by radiology and shows no acute fracture or dislocation but does show osteophytosis of the olecranon. He remains hemodynamically stable and comfortable in the emergency department. He will be returned to the extended care facility where he currently resides. Medical Records Medical records narrative: [place] [address] CT Scan Report Signed Patient: JAJA FRANKLIN MR#: [id number] : 1940 Acct:[id number] Age/Sex: 84 / M ADM Date: 04/01/24 Loc: ER Attending Dr: Ordering Physician: Nabila Tyler Date of Service: 04/01/24 Procedure(s): CT cervical spine wo con Accession Number(s): [id number] cc: Yao Lopez M.D.~ [facility] [place] [address] Patient Name: JAJA FRANKLIN MRN: [id number] date: 1940 Sex: M Assigned Patient Location: ER Current Patient Location: ER Accession/Order Number: [id number] Exam Date: 04/01/2024 19:50 Report Date: 04/01/2024 20:25 At the request of: NABILA TYLER Procedure: CT cervical spine wo con EXAM: CT cervical spine wo con, CT head/brain wo con CLINICAL INDICATION: fall, head injury COMPARISON: CT head 03/04/2024 TECHNIQUE: Unenhanced computerized tomography of the head was performed. Automated dose reduction technique was employed. Multiple axial slices of the cervical spine were obtained without contrast and with coronal and sagittal reformatted images. FINDINGS: The ventricles are normal in size, configuration, and position for age. There is no intra- or extra-axial mass, hemorrhage, or fluid collection. 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 No new suspicious areas of abnormal mass effect or attenuation are noted. There is stable moderate subcortical, deep, and periventricular white matter low-attenuation, compatible with changes of chronic small vessel ischemic disease. Moderate right sphenoid sinus mucosal thickening redemonstrated. No depressed calvarial fracture. Vertebral height and alignment is preserved. No acute fracture or subluxation. Mild to moderate multilevel degenerative disc and facet disease. Bridging anterior osteophytes suggesting a component of diffuse idiopathic skeletal hyperostosis. The atlanto occipital joint is maintained.The odontoid and lateral masses are intact. The prevertebral soft tissues are within normal limits. The adjacent structures appear intact. The visualized soft tissues of the neck are normal. Possible air trapping or pneumonia in the right upper lobe, partially visualized. CT/CT cervical spine wo con IMPRESSION: 1. No acute intracranial abnormality noted. Chronic senescent changes. 2. No acute fracture or subluxation of the cervical spine. Multilevel degenerative changes of the cervical spine. Electronically authenticated by: IVORY MCKENNA Date: 04/01/2024 20:25 [place] [address] XRay Report Signed Patient: JAJA FRANKLIN MR#: [id number] : 1940 Acct:[id number] Age/Sex: 84 / M ADM Date: 04/01/24 Loc: ER Attending Dr: Ordering Physician: Nabila Tyler Date of Service: 04/01/24 Procedure(s): XR elbow LT 2V Accession Number(s): [id number] cc: Yao Lopez M.D.; Nabila Marker~ [facility] [place] [address] Patient Name: JAJA FRANKLIN MRN: [id number] date: 1940 Sex: M Assigned Patient Location: ER Current Patient Location: ER Accession/Order Number: [id number] Exam Date: 04/01/2024 19:32 Report Date: 04/01/2024 21:51 At the request of: NABILA TYLER Procedure: XR elbow LT 2V Examination:XR elbow LT 2V, XR humerus LT INDICATION:fall, arm injury COMPARISON:Previous left shoulder x-ray dated 03/12/2024. No prior left elbow x-ray. TECHNIQUE:2 views of the left elbow and 3 views of the left humerus are submitted. FINDINGS: Left elbow: No acute fracture or dislocations are present. The joint spaces are well-maintained. There is osteophytosis of the olecranon. Soft tissue calcifications are present adjacent to each humeral condyle. Surgical clips are present along the anterior left proximal forearm. There is no significant joint effusion. Left humerus: No acute fracture or dislocations are present. The joint spaces are well-maintained. Soft tissues are unremarkable. XR/XR elbow LT 2V IMPRESSION: No acute fractures in the left humerus were the left elbow. Electronically authenticated by: TSERING LORENZO Date: 04/01/2024 21:51 Discharge Plan Discharge Stand Alone Forms: Work/School Release, Portal Instructions Chief Complaint: Fall Clinical Impression: Accidental fall from chair, Laceration of face, Skin tear of left forearm without complication Patient Disposition: Home, Self-Care Time of Disposition Decision: 21:59 Condition: Good Prescriptions / Home Meds: No Action alprazolam 0.5 mg tablet 0.5 mg PO TID PRN (Reason: anxiety) carvedilol 25 mg Tablet 37.5 mg PO BID Qty: 90 11RF liothyronine 5 mcg Tablet 10 mcg PO QD Qty: 60 11RF bumetanide 1 mg Tablet 2 mg PO BID Qty: 60 11RF sertraline 50 mg Tablet 100 mg PO DAILY Qty: 60 11RF atorvastatin 20 mg tablet 20 mg PO .QHS levothyroxine 50 mcg tablet 50 mcg PO .qhs aspirin [Adult Aspirin Regimen] 81 mg tablet,delayed release (DR/EC) 81 mg PO DAILY Hold Instructions: Doctor's Order insulin aspart U-100 [Novolog FlexPen U-100 Insulin] 100 unit/mL (3 mL) Insulin Pen 2 - 14 unit subcut ACHS Qty: 15 0RF amitriptyline 50 mg tablet 50 mg PO BEDTIME hydralazine 25 mg Tablet 25 mg PO TID Qty: 90 11RF Levemir FlexPen 100 unit/mL (3 mL) Insulin Pen 38 unit subcut QAM benzonatate 100 mg Capsule 200 mg PO Q8H PRN (Reason: Cough) 3 Days Qty: 6 0RF carvedilol 25 mg Tablet 37.5 mg PO BID Qty: 90 11RF isosorbide mononitrate 60 mg Tablet Extended Release 24 Hr 120 mg PO QD Qty: 30 11RF ferrous sulfate 325 mg (65 mg iron) Tablet 325 mg PO BID Qty: 60 11RF Ensure Active Protein-Muscle Liquid 1 ea PO BID Qty: 5688 11RF Pro-Stat Sugar Free 15 gram- 100 kcal/30 mL Liquid In Packet 1 ea PO BID Qty: 2880 11RF Entresto 24-26 mg Tablet 2 tab PO BID Qty: 60 11RF pantoprazole [Protonix] 40 mg tablet,delayed release (DR/EC) 40 mg PO QAM Qty: 30 11RF Print Language: Divehi Instructions: Laceration (ED), Fall Prevention for Older Adults (ED), Skin Adhesive Care (ED) Referrals: Yao Lopez MD [Primary Care Provider] - 1 week Procedures ED Procedure Instructions Procedures Procedures: Procedure note: Facial laceration repair; the left eyebrow laceration was cleaned with normal saline and Hibiclens and a thin film of Dermabond was placed over the laceration with good wound edge approximation. Left forearm skin tear was cleaned with Hibiclens and normal saline and the torn skin was debrided from the wound and Adaptic dressing, kerlex and an eugenio wrap was applied over the dressing. Patient tolerated both procedures well
[2024-04-01 20:38] VITALS: BP 134/66
[2024-04-01 22:33] VITALS: BP 131/56; PULSE 77; O2SAT 92
[2024-04-02 03:54] VITALS: BP 146/102; PULSE 89; O2SAT 93
== END 2024-04-02 03:56 | disposition home or self-care (01) ==
PROVIDERS: Emergency Provider Emergency Medicine; PCP Family Medicine
DX: S01.112A Laceration without foreign body of left eyelid and periocular area, initial encounter (principal); S51.812A Laceration without foreign body of left forearm, initial encounter; W07.XXXA Fall from chair, initial encounter; Z87.891 Personal history of nicotine dependence
CPT/HCPCS: 12011; 70450; 72125; 73060; 73070; 99284